=== PATIENT | male | born 1965 | race Hispanic/Latino ===

== ENCOUNTER 2017-06-02 17:14 | Emergency (ER) | payer OTHER ==
--- OUTSIDE RECORDS SUMMARY | 2017-06-02 17:16 | XMS REPORT ---
:1965 [facility] Address [address] [place] [address] Care Team Providers Name Role Phone ILIANA GOMEZ Unavailable Unavailable Problems This patient has no known problems. Allergies, Adverse Reactions, Alerts This patient has no known allergies or adverse reactions. Medications This patient has no known medications. Results Test Description Test Time Test Comments Text Results Atomic Results Result Comments BLOOD CULTURE 2016-07-07 14:28:00 Test Item Value Reference Range Comments CULTURE (BEAKER) (test moeo=7187) No growth in 5 days POCT-GLUCOSE [id number] 12:04:00 Test Item Value Reference Range Comments POC-GLUCOSE METER (BEAKER) 179 mg/dL 70-110 TESTED AT [facility] [address] [facility] (test tnil=9076) [facility] [address] BASIC METABOLIC [id number] 09:51:00 Test Item Value Reference Range Comments SODIUM (BEAKER) (test 137 meq/L 136-145 wyqf=763) POTASSIUM (BEAKER) (test 3.7 meq/L 3.5-5.1 cbek=999) CHLORIDE (BEAKER) (test 102 meq/L 98-107 dmbh=610) CO2 (BEAKER) (test 25 meq/L 22-29 uhxu=514) BLOOD UREA NITROGEN 17 mg/dL 7-21 (BEAKER) (test kseo=787) CREATININE (BEAKER) (test 1.04 mg/dL 0.57-1.25 ymvt=401) GLUCOSE RANDOM (BEAKER) 195 mg/dL 70-105 (test opyg=591) CALCIUM (BEAKER) (test 9.2 mg/dL 8.4-10.2 klpr=580) EGFR (BEAKER) (test 76 mL/min/1.73 sq m ESTIMATED GFR IS NOT brfm=8466) ACCURATE CREATININE CLEARANCE IN PREDICTING GLOMERULAR FILTRATION RATE. ESTIMATED GFR IS NOT APPLICABLE FOR DIALYSIS PATIENTS. CBC W/PLT COUNT & AUTO [id number] 09:20:00 Test Item Value Reference Range Comments WHITE BLOOD CELL COUNT (BEAKER) (test qlov=821) 6.1 K/ L 4.0-10.0 RED BLOOD CELL COUNT (BEAKER) (test gzcz=693) 4.63 M/ L 4.20-5.80 HEMOGLOBIN (BEAKER) (test ktrs=486) 13.7 GM/DL 13.0-16.8 HEMATOCRIT (BEAKER) (test cggn=468) 39.8 % 40.0-50.0 MEAN CORPUSCULAR VOLUME (BEAKER) (test udbu=098) 85.9 fL 82.0-98.0 MEAN CORPUSCULAR HEMOGLOBIN (BEAKER) (test 29.6 pg 27.0-33.0 ncbr=316) MEAN CORPUSCULAR HEMOGLOBIN CONC (BEAKER) (test 34.5 GM/DL 32.0-36.0 wtjr=057) RED CELL DISTRIBUTION WIDTH (BEAKER) (test 14.8 % 10.3-14.2 jaiq=327) PLATELET COUNT (BEAKER) (test qgwf=503) 143 K/CU MM 150-430 MEAN PLATELET VOLUME (BEAKER) (test tamm=887) 8.6 fL 6.5-10.5 NUCLEATED RED BLOOD CELLS (BEAKER) (test 0 /100 WBC 0-0 sliu=008) NEUTROPHILS RELATIVE PERCENT (BEAKER) (test 71 % vzeh=176) LYMPHOCYTES RELATIVE PERCENT (BEAKER) (test 20 % mjqu=940) MONOCYTES RELATIVE PERCENT (BEAKER) (test 5 % fjxv=792) EOSINOPHILS RELATIVE PERCENT (BEAKER) (test 3 % iisg=557) BASOPHILS RELATIVE PERCENT (BEAKER) (test 1 % berx=775) NEUTROPHILS ABSOLUTE COUNT (BEAKER) (test 4.31 K/ L 1.80-8.00 iacy=471) LYMPHOCYTES ABSOLUTE COUNT (BEAKER) (test 1.23 K/ L 1.48-4.50 mnsp=896) MONOCYTES ABSOLUTE COUNT (BEAKER) (test 0.28 K/ L 0.00-1.30 mddc=863) EOSINOPHILS ABSOLUTE COUNT (BEAKER) (test 0.21 K/ L 0.00-0.50 jplh=896) BASOPHILS ABSOLUTE COUNT (BEAKER) (test 0.03 K/ L 0.00-0.20 qubv=183) 0.00POCT-GLUCOSE [id number] 07:15:00 Test Item Value Reference Range Comments POC-GLUCOSE METER (BEAKER) 246 mg/dL 70-110 TESTED AT [address] (test bmcw=4353) [place] [address] POCT-GLUCOSE [id number] 21:12:00 Test Item Value Reference Range Comments POC-GLUCOSE METER (BEAKER) 89 mg/dL 70-110 TESTED AT [address] (test goxr=3863) [place] [address] POCT-GLUCOSE [id number] 17:12:00 Test Item Value Reference Range Comments POC-GLUCOSE METER (BEAKER) 217 mg/dL 70-110 TESTED AT [address] (test rveb=0025) [place] [address] URINE [id number] 12:07:00 Test Item Value Reference Range Comments CULTURE (AKER) (test <10,000 col/mL skin candi zwus=3361) POCT-GLUCOSE [id number] 11:30:00 Test Item Value Reference Range Comments POC-GLUCOSE METER (BEAKER) 205 mg/dL 70-110 TESTED AT [address] (test fvwb=9834) [place] [id number] POCT-GLUCOSE [id number] 07:36:00 Test Item Value Reference Range Comments POC-GLUCOSE METER (BEAKER) 195 mg/dL 70-110 TESTED AT [address] (test knpv=7502) [place] [address] CBC W/PLT COUNT & AUTO [id number] 05:14:00 Test Item Value Reference Range Comments WHITE BLOOD CELL COUNT (BEAKER) (test gdeg=822) 6.7 K/ L 4.0-10.0 RED BLOOD CELL COUNT (BEAKER) (test bbou=989) 4.40 M/ L 4.20-5.80 HEMOGLOBIN (BEAKER) (test zcft=850) 13.3 GM/DL 13.0-16.8 HEMATOCRIT (BEAKER) (test mqke=417) 38.2 % 40.0-50.0 MEAN CORPUSCULAR VOLUME (BEAKER) (test tgao=503) 86.8 fL 82.0-98.0 MEAN CORPUSCULAR HEMOGLOBIN (BEAKER) (test 30.1 pg 27.0-33.0 nykh=000) MEAN CORPUSCULAR HEMOGLOBIN CONC (BEAKER) (test 34.7 GM/DL 32.0-36.0 llht=342) RED CELL DISTRIBUTION WIDTH (BEAKER) (test 14.7 % 10.3-14.2 xgth=160) PLATELET COUNT (BEAKER) (test mqoh=188) 144 K/CU MM 150-430 MEAN PLATELET VOLUME (BEAKER) (test uboj=030) 9.0 fL 6.5-10.5 NUCLEATED RED BLOOD CELLS (BEAKER) (test 0 /100 WBC 0-0 gddq=244) NEUTROPHILS RELATIVE PERCENT (BEAKER) (test 67 % atbc=515) LYMPHOCYTES RELATIVE PERCENT (BEAKER) (test 25 % jijg=790) MONOCYTES RELATIVE PERCENT (BEAKER) (test 5 % fdma=710) EOSINOPHILS RELATIVE PERCENT (BEAKER) (test 2 % fwno=284) BASOPHILS RELATIVE PERCENT (BEAKER) (test 0 % rmfz=896) NEUTROPHILS ABSOLUTE COUNT (BEAKER) (test 4.52 K/ L 1.80-8.00 nkup=104) LYMPHOCYTES ABSOLUTE COUNT (BEAKER) (test 1.70 K/ L 1.48-4.50 neop=617) MONOCYTES ABSOLUTE COUNT (BEAKER) (test 0.32 K/ L 0.00-1.30 lsbn=546) EOSINOPHILS ABSOLUTE COUNT (BEAKER) (test 0.16 K/ L 0.00-0.50 pfvv=578) BASOPHILS ABSOLUTE COUNT (BEAKER) (test 0.03 K/ L 0.00-0.20 zjwb=942) [facility]00[facility] [id number] 05:14:00 Test Item Value Reference Range Comments SODIUM (BEAKER) (test 134 meq/L 136-145 anod=491) POTASSIUM (BEAKER) (test 4.2 meq/L 3.5-5.1 qqax=888) CHLORIDE (BEAKER) (test 101 meq/L 98-107 sdmr=895) CO2 (BEAKER) (test 24 meq/L 22-29 ueuo=441) BLOOD UREA NITROGEN 20 mg/dL 7-21 (BEAKER) (test ouif=694) CREATININE (BEAKER) (test 1.16 mg/dL 0.57-1.25 bfjm=134) GLUCOSE RANDOM (BEAKER) 216 mg/dL 70-105 (test tifo=904) CALCIUM (BEAKER) (test 8.8 mg/dL 8.4-10.2 wecs=871) EGFR (BEAKER) (test 67 mL/min/1.73 sq m ESTIMATED GFR IS NOT jgwn=7231) ACCURATE CREATININE CLEARANCE IN PREDICTING GLOMERULAR FILTRATION RATE. ESTIMATED GFR IS NOT APPLICABLE FOR DIALYSIS PATIENTS. POCT-GLUCOSE [id number] 21:04:00 Test Item Value Reference Range Comments POC-GLUCOSE METER (BEAKER) 178 mg/dL 70-110 TESTED AT [address] (test dtpm=2158) [place] [id number] POCT-GLUCOSE [id number] 17:07:00 Test Item Value Reference Range Comments POC-GLUCOSE METER (BEAKER) 88 mg/dL 70-110 TESTED AT [address] (test sjzz=8268) [place] [id number] POCT-GLUCOSE [id number] 12:30:00 Test Item Value Reference Range Comments POC-GLUCOSE METER (BEAKER) 107 mg/dL 70-110 TESTED AT [address] (test kzij=5268) [facility] [address] POCT-GLUCOSE [id number] 07:46:00 Test Item Value Reference Range Comments POC-GLUCOSE METER (BEAKER) 169 mg/dL 70-110 TESTED AT [address] (test bbap=3519) [facility] [address] CBC W/PLT COUNT & AUTO [id number] 07:42:00 Test Item Value Reference Range Comments WHITE BLOOD CELL COUNT (BEAKER) (test hxlh=570) 6.5 K/ L 4.0-10.0 RED BLOOD CELL COUNT (BEAKER) (test nict=012) 4.57 M/ L 4.20-5.80 HEMOGLOBIN (BEAKER) (test osli=193) 13.4 GM/DL 13.0-16.8 HEMATOCRIT (BEAKER) (test vxkh=363) 40.4 % 40.0-50.0 MEAN CORPUSCULAR VOLUME (BEAKER) (test qihc=411) 88.3 fL 82.0-98.0 MEAN CORPUSCULAR HEMOGLOBIN (BEAKER) (test 29.3 pg 27.0-33.0 kerd=855) MEAN CORPUSCULAR HEMOGLOBIN CONC (BEAKER) (test 33.2 GM/DL 32.0-36.0 liqx=517) RED CELL DISTRIBUTION WIDTH (BEAKER) (test 13.8 % 10.3-14.2 huqt=611) PLATELET COUNT (BEAKER) (test jsuj=706) 150 K/CU MM 150-430 MEAN PLATELET VOLUME (BEAKER) (test whmk=390) 9.0 fL 6.5-10.5 NUCLEATED RED BLOOD CELLS (BEAKER) (test 0 /100 WBC 0-0 kflu=995) NEUTROPHILS RELATIVE PERCENT (BEAKER) (test 64 % gori=886) LYMPHOCYTES RELATIVE PERCENT (BEAKER) (test 26 % sqml=005) MONOCYTES RELATIVE PERCENT (BEAKER) (test 7 % casf=769) EOSINOPHILS RELATIVE PERCENT (BEAKER) (test 3 % kjdy=164) BASOPHILS RELATIVE PERCENT (BEAKER) (test 0 % bztc=860) NEUTROPHILS ABSOLUTE COUNT (BEAKER) (test 4.13 K/ L 1.80-8.00 eutn=782) LYMPHOCYTES ABSOLUTE COUNT (BEAKER) (test 1.66 K/ L 1.48-4.50 qcix=480) MONOCYTES ABSOLUTE COUNT (BEAKER) (test 0.44 K/ L 0.00-1.30 gbih=183) EOSINOPHILS ABSOLUTE COUNT (BEAKER) (test 0.21 K/ L 0.00-0.50 mtvl=061) BASOPHILS ABSOLUTE COUNT (BEAKER) (test 0.03 K/ L 0.00-0.20 remr=728) 0.00[facility]I METABOLIC [id number] 06:13:00 Test Item Value Reference Range Comments SODIUM (BEAKER) (test 136 meq/L 136-145 xtxf=479) POTASSIUM (BEAKER) (test 3.6 meq/L 3.5-5.1 jxgp=257) CHLORIDE (BEAKER) (test 101 meq/L 98-107 ptea=809) CO2 (BEAKER) (test 25 meq/L 22-29 utat=837) BLOOD UREA NITROGEN 18 mg/dL 7-21 (BEAKER) (test towo=988) CREATININE (BEAKER) (test 1.07 mg/dL 0.57-1.25 lgzv=340) GLUCOSE RANDOM (BEAKER) 188 mg/dL 70-105 (test oisn=641) CALCIUM (BEAKER) (test 8.8 mg/dL 8.4-10.2 pjqe=180) EGFR (BEAKER) (test 73 mL/min/1.73 sq m ESTIMATED GFR IS NOT ugog=8168) ACCURATE CREATININE CLEARANCE IN PREDICTING GLOMERULAR FILTRATION RATE. ESTIMATED GFR IS NOT APPLICABLE FOR DIALYSIS PATIENTS. POCT-GLUCOSE [id number] 22:12:00 Test Item Value Reference Range Comments POC-GLUCOSE METER (BEAKER) 238 mg/dL 70-110 TESTED AT [address] (test yflv=3254) [facility] [address] POCT-GLUCOSE [id number] 17:25:00 Test Item Value Reference Range Comments POC-GLUCOSE METER (BEAKER) 102 mg/dL 70-110 TESTED AT [address] (test llvy=6182) [place] [id number] URINALYSIS W/ [id number] 12:50:00 Test Item Value Reference Range Comments COLOR (BEAKER) (test annj=061) Colorless CLARITY (BEAKER) (test zihw=168) Clear SPECIFIC GRAVITY UA (BEAKER) (test fjbs=848) 1.002 1.001-1.035 PH UA (BEAKER) (test sedk=095) 6.5 5.0-8.0 PROTEIN UA (BEAKER) (test egow=630) Negative Negative GLUCOSE UA (BEAKER) (test rcdf=440) Negative Negative KETONES UA (BEAKER) (test vvsm=172) Negative Negative BILIRUBIN UA (BEAKER) (test emua=056) Negative Negative BLOOD UA (BEAKER) (test xzid=267) Negative Negative NITRITE UA (BEAKER) (test xngv=678) Negative Negative LEUKOCYTE ESTERASE UA (BEAKER) (test irbq=966) Negative Negative UROBILINOGEN UA (BEAKER) (test mxia=473) 0.2 mg/dL 0.2-1.0 RBC UA (BEAKER) (test kxym=178) 0 /HPF WBC UA (BEAKER) (test xbua=049) < /HPF SOURCE(BEAKER) (test txgo=2878) POCT-GLUCOSE [id number] 12:04:00 Test Item Value Reference Range Comments POC-GLUCOSE METER (BEAKER) 226 mg/dL 70-110 TESTED AT [facility] [address] [facility] (test uiyw=8459) [facility] [address] POCT-GLUCOSE [id number] 08:00:00 Test Item Value Reference Range Comments POC-GLUCOSE METER (BEAKER) 300 mg/dL 70-110 TESTED AT [facility] [address] [facility] (test meop=4312) [facility] [address] BASIC METABOLIC [id number] 06:50:00 Test Item Value Reference Range Comments SODIUM (BEAKER) (test 134 meq/L 136-145 xszs=051) POTASSIUM (BEAKER) (test 4.0 meq/L 3.5-5.1 mqup=694) CHLORIDE (BEAKER) (test 98 meq/L 98-107 aujq=418) CO2 (BEAKER) (test 26 meq/L 22-29 aodm=809) BLOOD UREA NITROGEN 18 mg/dL 7-21 (BEAKER) (test uyts=788) CREATININE (BEAKER) (test 1.25 mg/dL 0.57-1.25 sban=707) GLUCOSE RANDOM (BEAKER) 349 mg/dL 70-105 (test eanw=616) CALCIUM (BEAKER) (test 8.9 mg/dL 8.4-10.2 dpeb=818) EGFR (BEAKER) (test 61 mL/min/1.73 sq m ESTIMATED GFR IS NOT zbjz=8343) ACCURATE CREATININE CLEARANCE IN PREDICTING GLOMERULAR FILTRATION RATE. ESTIMATED GFR IS NOT APPLICABLE FOR DIALYSIS PATIENTS. CBC W/PLT COUNT & AUTO [id number] 06:01:00 Test Item Value Reference Range Comments WHITE BLOOD CELL COUNT (BEAKER) (test ntyc=776) 6.6 K/ L 4.0-10.0 RED BLOOD CELL COUNT (BEAKER) (test wtyv=228) 4.79 M/ L 4.20-5.80 HEMOGLOBIN (BEAKER) (test twcm=381) 14.1 GM/DL 13.0-16.8 HEMATOCRIT (BEAKER) (test rwut=291) 42.0 % 40.0-50.0 MEAN CORPUSCULAR VOLUME (BEAKER) (test orjd=444) 87.7 fL 82.0-98.0 MEAN CORPUSCULAR HEMOGLOBIN (BEAKER) (test 29.5 pg 27.0-33.0 bwwq=369) MEAN CORPUSCULAR HEMOGLOBIN CONC (BEAKER) (test 33.6 GM/DL 32.0-36.0 npyi=067) RED CELL DISTRIBUTION WIDTH (BEAKER) (test 14.9 % 10.3-14.2 jheg=111) PLATELET COUNT (BEAKER) (test coco=125) 157 K/CU MM 150-430 MEAN PLATELET VOLUME (BEAKER) (test mbow=590) 9.0 fL 6.5-10.5 NUCLEATED RED BLOOD CELLS (BEAKER) (test 0 /100 WBC 0-0 tvht=308) NEUTROPHILS RELATIVE PERCENT (BEAKER) (test 67 % yqim=303) LYMPHOCYTES RELATIVE PERCENT (BEAKER) (test 23 % ssaj=406) MONOCYTES RELATIVE PERCENT (BEAKER) (test 7 % vcqj=695) EOSINOPHILS RELATIVE PERCENT (BEAKER) (test 3 % truc=390) BASOPHILS RELATIVE PERCENT (BEAKER) (test 0 % igkt=857) NEUTROPHILS ABSOLUTE COUNT (BEAKER) (test 4.44 K/ L 1.80-8.00 izwp=522) LYMPHOCYTES ABSOLUTE COUNT (BEAKER) (test 1.51 K/ L 1.48-4.50 pdyb=884) MONOCYTES ABSOLUTE COUNT (BEAKER) (test 0.43 K/ L 0.00-1.30 uydz=034) EOSINOPHILS ABSOLUTE COUNT (BEAKER) (test 0.21 K/ L 0.00-0.50 jwre=980) BASOPHILS ABSOLUTE COUNT (BEAKER) (test 0.03 K/ L 0.00-0.20 agio=250) 0.00POCT-GLUCOSE [id number] 21:25:00 Test Item Value Reference Range Comments POC-GLUCOSE METER (BEAKER) 279 mg/dL 70-110 TESTED AT [facility] [address] [facility] (test deqk=8643) [facility] [address] HEMOGLOBIN [id number] 21:13:00 Test Item Value Reference Range Comments HEMOGLOBIN A1C (BEAKER) (test nxcn=382) 10.7 % 4.3-6.1 CBC W/PLT COUNT & AUTO [id number] 20:47:00 Test Item Value Reference Range Comments WHITE BLOOD CELL COUNT (BEAKER) (test mtgl=957) 7.3 K/ L 4.0-10.0 RED BLOOD CELL COUNT (BEAKER) (test nkez=223) 5.25 M/ L 4.20-5.80 HEMOGLOBIN (BEAKER) (test vuuw=283) 15.7 GM/DL 13.0-16.8 HEMATOCRIT (BEAKER) (test racr=200) 46.0 % 40.0-50.0 MEAN CORPUSCULAR VOLUME (BEAKER) (test pljh=629) 87.7 fL 82.0-98.0 MEAN CORPUSCULAR HEMOGLOBIN (BEAKER) (test 30.0 pg 27.0-33.0 kcjv=630) MEAN CORPUSCULAR HEMOGLOBIN CONC (BEAKER) (test 34.2 GM/DL 32.0-36.0 xkfq=437) RED CELL DISTRIBUTION WIDTH (BEAKER) (test 13.8 % 10.3-14.2 mjir=376) PLATELET COUNT (BEAKER) (test nqfv=660) 166 K/CU MM 150-430 MEAN PLATELET VOLUME (BEAKER) (test cmdm=918) 8.3 fL 6.5-10.5 NUCLEATED RED BLOOD CELLS (BEAKER) (test 0 /100 WBC 0-0 gwlf=977) NEUTROPHILS RELATIVE PERCENT (BEAKER) (test 69 % inwd=798) LYMPHOCYTES RELATIVE PERCENT (BEAKER) (test 22 % rjtk=992) MONOCYTES RELATIVE PERCENT (BEAKER) (test 5 % frli=489) EOSINOPHILS RELATIVE PERCENT (BEAKER) (test 3 % dpxj=683) BASOPHILS RELATIVE PERCENT (BEAKER) (test 0 % itte=425) NEUTROPHILS ABSOLUTE COUNT (BEAKER) (test 5.04 K/ L 1.80-8.00 xmpk=200) LYMPHOCYTES ABSOLUTE COUNT (BEAKER) (test 1.63 K/ L 1.48-4.50 zfly=525) MONOCYTES ABSOLUTE COUNT (BEAKER) (test 0.40 K/ L 0.00-1.30 ixvg=043) EOSINOPHILS ABSOLUTE COUNT (BEAKER) (test 0.22 K/ L 0.00-0.50 spol=564) BASOPHILS ABSOLUTE COUNT (BEAKER) (test 0.01 K/ L 0.00-0.20 znlj=829) 0.00POCT-GLUCOSE [id number] 18:31:00 Test Item Value Reference Range Comments POC-GLUCOSE METER (BEAKER) 205 mg/dL 70-110 TESTED AT [facility] [address] [facility] (test ltoj=2604) [facility] [address]
[2017-06-02] MEDS ORDERED: MORPHINE 4 MG/ML SYR ONE (18:15)
[2017-06-02] MEDS ORDERED: ONDANSETRON 4 MG (ODT) TAB ONE (18:15)
--- NOTE | 2017-06-02 18:55 | RAD REPORT ---
EXAM DESCRIPTION: RAD - Shoulder Left 2 View - 06/02/2017 6:21 pm CLINICAL HISTORY: Left clavicle and shoulder pain COMPARISON: Left shoulder December 2015, CT chest November 2016. TECHNIQUE: Internal and external rotation views of the left shoulder were obtained. FINDINGS: There is no fracture or dislocation. AC joint is normal in appearance. No bone spurring se en at the AC joint. Acromial humeral joint space is normal with no abnormal soft tissue calcification . Calcifications of an old axillary lymph node noted similar to prior imaging. IMPRESSION: Negative two-view left shoulder examination for acute or suspicious finding.
--- NOTE | 2017-06-02 20:04 | ER ---
Nurse's Notes [facility] Name: Ramirez Chaudhari Age: 52 yrs Sex: Male : 1965 Arrival Date: 06/02/2017 Time: 17:17 Bed 6 Private MD: Diagnosis: Edema, unspecified;Pain in left shoulder-possible left shoulder bursitis Presentation: 06/02 17:19 Presenting complaint: Patient states: My left collar bone hurts really bad. My left leg lk1 feels big and swollen. I haven't been making much urine. I just want to make sure my heart is ok. Transition of care: patient was not received from another setting of care. Onset of symptoms was June 01, 2017 at 21:00. Care prior to arrival: None. 17:19 Method Of Arrival: Wheelchair lk1 17:19 Acuity: NOHEMI 3 lk1 Triage Assessment: 17:22 General: Appears in no apparent distress. Behavior is calm, cooperative, appropriate lk1 for age. Pain: Complains of pain in anterior aspect of left shoulder Pain currently is 10 out of 10 on a pain scale. Historical: - Allergies: 17:22 Ibuprofen; lk1 17:22 metformin; lk1 - PMHx: 17:22 ADD/ADHD; Diabetes - IDDM; GERD; Gout; High Cholesterol; Hypertension; Migraines; Renal lk1 Disease; Spinal Stroke; Hypothyroidism; Paraplegia; Hydrocele Left Testicle; - PSHx: 17:22 spinal surgery; hydrocele; lk1 - Immunization history:: Adult Immunizations up to date. - Social history:: Smoking status: Patient/guardian denies using tobacco. Screenin:14 Abuse screen: Denies threats or abuse. Denies injuries from another. Nutritional jl7 screening: No deficits noted. Tuberculosis screening: No symptoms or risk factors identified. Fall Risk Secondary diagnosis (15 points) impaired mobility, Total Valera Fall Scale indicates No Risk (0-24 pts). Assessment: 18:06 General: Appears in no apparent distress. uncomfortable, Behavior is calm, cooperative, jl7 appropriate for age. Pain: Complains of pain in anterior aspect of left shoulder Pain does not radiate. Pain currently is 10 out of 10 on a pain scale. Quality of pain is described as aching, Is continuous. Neuro: Level of Consciousness is awake, alert, obeys commands, Oriented to person, place, time, situation, Speech is normal. Cardiovascular: Heart tones S1 S2 present Patient's skin is warm and dry. Respiratory: Airway is patent Respiratory effort is even, unlabored, Respiratory pattern is regular, symmetrical. GI: Abdomen is round non-distended. : No signs and/or symptoms were reported regarding the genitourinary system. EENT: No signs and/or symptoms were reported regarding the EENT system. Derm: No signs and/or symptoms reported regarding the dermatologic system. Musculoskeletal: Range of motion: limited in left shoulder. 20:26 Reassessment: Patient and/or family updated on plan of care and expected duration. Pain tl1 level reassessed. Patient is alert, oriented x 3, equal unlabored respirations, skin warm/dry/pink. Patient states feeling better. Patient states symptoms have improved. Musculoskeletal: Reports pain in left shoulder and left arm and anterior aspect of left shoulder. Vital Signs: 17:22 BP 159 / 100; Pulse 72; Resp 15; Temp 98.2(TE); Pulse Ox 97% on R/A; Weight 104.33 kg lk1 (R); Height 5 ft. 8 in. (172.72 cm) (R); Pain 10/10; 18:06 BP 158 / 92; Pulse 66; Resp 16; Pulse Ox 99% ; Pain 10/10; jl7 18:50 BP 167 / 107; Pulse 79; Resp 16 S; Pulse Ox 100% on R/A; jl7 19:52 BP 159 / 92; Pulse 72; Resp 17; Pulse Ox 100% ; Pain 8/10; tl1 20:24 BP 151 / 98; Pulse 74; Resp 16; Temp 98.4; Pulse Ox 99% ; Pain 6/10; tl1 17:22 Body Mass Index 34.97 (104.33 kg, 172.72 cm) lk1 ED Course: 17:17 Patient arrived in ED. as 17:20 Triage completed. lk1 17:24 Arm band placed on right wrist. lk1 17:34 Emelia Nolan, NORBERTO is Primary Nurse. jl7 17:38 Herbert Murry NP is PHCP. pm1 17:39 Ford Bass MD is Attending Physician. pm1 18:14 Patient has correct armband on for positive identification. Bed in low position. Call jl7 light in reach. Side rails up X2. Pulse ox on. NIBP on. 18:17 X-ray completed. Portable x-ray completed in exam room. Patient tolerated procedure kc2 well. 18:18 Shoulder Left (2 View) XRAY In Process Unspecified. EDMS 19:02 Report given to NORBERTO Singh. jl7 19:32 Ultrasound completed. Patient tolerated well. lc3 19:36 US Extrem Venous W Compression Jeff In Process Unspecified. EDMS 19:48 Primary Nurse role handed off by Emelia Nolan RN rg2 20:01 Haider Ellsworth MD is Referral Physician. pm1 20:25 No provider procedures requiring assistance completed. Patient did not have IV access tl1 during this emergency room visit. Sling applied to left arm. Administered Medications: 18:00 Drug: morphine 4 mg Route: IM; Site: right deltoid; sg 19:02 Follow up: Response: No adverse reaction jl7 18:00 Drug: Zofran 4 mg Route: PO; sg 19:02 Follow up: Response: No adverse reaction jl7 Outcome: 20:03 Discharge ordered by MD. pm1 20:26 Discharged to home via wheelchair, with family. tl1 20:26 Condition: stable 20:26 Discharge instructions given to patient, family, Instructed on discharge instructions, follow up and referral plans. Demonstrated understanding of instructions, follow-up care. 20:29 Patient left the ED. tl1 Signatures: Dispatcher [employer] EDAdriel Donahue rg2 Uche Pate RN RN sg Martinez, Amelia as Lasagna, Tonya, RN RN tl1 Ana Maria Lynch Leah, RN RN lk1 Herbert Murry, JEFF CAB DRIVER pm1 Pretty Huang kc2 Emelia Nolan RN RN jl7
--- NOTE | 2017-06-02 20:04 | EDPHYS ---
Physician Documentation [facility] Name: Ramirez Chaudhari Age: 52 yrs Sex: Male : 1965 Arrival Date: 06/02/2017 Time: 17:17 Bed 6 Private MD: ED Physician Ford Bass HPI: 06/02 19:33 This 52 yrs old Male presents to ER via Wheelchair with complaints of Shoulder pm1 Pain, Left Leg Pain. 19:33 The patient or guardian complains of decreased range of motion, pain. left shoulder. pm1 Context: The problem was sustained at home, resulted from an unknown reason, The patient experiences decreased range of motion, The patient reports no obvious deformity. Onset: The symptoms/episode began/occurred yesterday. Modifying factors: the symptoms are alleviated by nothing. The symptoms are aggravated by rotation of arm. Associated signs and symptoms: Pertinent negatives: abdominal pain, chest pain, diaphoresis, dyspnea, neck pain, shortness of breath. Severity of symptoms: in the emergency department the symptoms are actually worse. Patient's main complaint is left shoulder pain since yesterday. Patient unable to lift left arm above shoulder level due to pain. Pain present with moving left arm anteriorly and posteriorly. Patient does rehabilitation with PT for his arms 2-3 times per week. No chest pain or shortness of breath. Patient with complaints of swelling to lower extremities bilaterally for the past 2-3 days. Patient reports that left leg feels larger and more painful than the right. Patient reports that he has been keeping legs more dependent recently than his normal. reports that he is having urinary retention but the patient denies it. Patient is a paraplegic and his self catheterizing without any difficulty. Historical: - Allergies: 17:22 Ibuprofen; lk1 17:22 metformin; lk1 - PMHx: 17:22 ADD/ADHD; Diabetes - IDDM; GERD; Gout; High Cholesterol; Hypertension; Migraines; Renal lk1 Disease; Spinal Stroke; Hypothyroidism; Paraplegia; Hydrocele Left Testicle; - PSHx: 17:22 spinal surgery; hydrocele; lk1 - Immunization history:: Adult Immunizations up to date. - Social history:: Smoking status: Patient/guardian denies using tobacco. ROS: 19:41 Constitutional: Negative for fever, chills, and weight loss, Eyes: Negative for injury, pm1 pain, redness, and discharge, ENT: Negative for injury, pain, and discharge, Neck: Negative for injury, pain, and swelling, Respiratory: Negative for shortness of breath, cough, wheezing, and pleuritic chest pain, Abdomen/GI: Negative for abdominal pain, nausea, vomiting, diarrhea, and constipation, Back: Negative for injury and pain. 19:41 : Negative for injury, bleeding, discharge, and swelling. 19:41 Skin: Negative for injury, rash, and discoloration, Neuro: Negative for headache, weakness, numbness, tingling, and seizure. 19:41 Cardiovascular: Positive for edema, Negative for chest pain, palpitations. 19:41 MS/extremity: Positive for pain, of the left shoulder. Exam: 19:41 Constitutional: This is a well developed, well nourished patient who is awake, alert, pm1 and in no acute distress. Head/Face: Normocephalic, atraumatic. Eyes: Pupils equal round and reactive to light, extra-ocular motions intact. Lids and lashes normal. Conjunctiva and sclera are non-icteric and not injected. Cornea within normal limits. Periorbital areas with no swelling, redness, or edema. ENT: Nares patent. No nasal discharge, no septal abnormalities noted. Tympanic membranes are normal and external auditory canals are clear. Oropharynx with no redness, swelling, or masses, exudates, or evidence of obstruction, uvula midline. Mucous membranes moist. Neck: Trachea midline, no thyromegaly or masses palpated, and no cervical lymphadenopathy. Supple, full range of motion without nuchal rigidity, or vertebral point tenderness. No Meningismus. Chest/axilla: Normal chest wall appearance and motion. Nontender with no deformity. No lesions are appreciated. Respiratory: Lungs have equal breath sounds bilaterally, clear to auscultation and percussion. No rales, rhonchi or wheezes noted. No increased work of breathing, no retractions or nasal flaring. Abdomen/GI: Soft, non-tender, with normal bowel sounds. No distension or tympany. No guarding or rebound. No evidence of tenderness throughout. Back: No spinal tenderness. No costovertebral tenderness. Full range of motion. Skin: Warm, dry with normal turgor. Normal color with no rashes, no lesions, and no evidence of cellulitis. 19:41 Cardiovascular: Rate: normal, Rhythm: regular, Pulses: no pulse deficits are appreciated, Heart sounds: normal, Edema: pedal edema, that is mild, JVD: is not appreciated. 19:41 Musculoskeletal/extremity: Extremities: grossly normal except: noted in the left arm: decreased ROM, Unable to raise left arm above shoulder level due to pain, paraplegic, unable to move lower extermities. Vital Signs: 17:22 BP 159 / 100; Pulse 72; Resp 15; Temp 98.2(TE); Pulse Ox 97% on R/A; Weight 104.33 kg lk1 (R); Height 5 ft. 8 in. (172.72 cm) (R); Pain 10/10; 18:06 BP 158 / 92; Pulse 66; Resp 16; Pulse Ox 99% ; Pain 10/10; jl7 18:50 BP 167 / 107; Pulse 79; Resp 16 S; Pulse Ox 100% on R/A; jl7 19:52 BP 159 / 92; Pulse 72; Resp 17; Pulse Ox 100% ; Pain 8/10; tl1 20:24 BP 151 / 98; Pulse 74; Resp 16; Temp 98.4; Pulse Ox 99% ; Pain 6/10; tl1 17:22 Body Mass Index 34.97 (104.33 kg, 172.72 cm) lk1 MDM: 17:40 Patient medically screened. pm1 19:41 Data reviewed: vital signs. Data interpreted: Pulse oximetry: on room air is 100 %. pm1 Interpretation: normal. 19:56 Counseling: I had a detailed discussion with the patient and/or guardian regarding: the pm1 historical points, exam findings, and any diagnostic results supporting the discharge/admit diagnosis, radiology results, the need for outpatient follow up, a orthopedic surgeon, to return to the emergency department if symptoms worsen or persist or if there are any questions or concerns that arise at home. 06/02 17:50 Order name: Shoulder Left (2 View) XRAY; Complete Time: 19:12 pm1 06/02 17:50 Order name: US Extrem Venous W Compression Jeff pm1 06/02 20:05 Order name: Sling; Complete Time: 20:27 pm1 Administered Medications: 18:00 Drug: morphine 4 mg Route: IM; Site: right deltoid; sg 19:02 Follow up: Response: No adverse reaction jl7 18:00 Drug: Zofran 4 mg Route: PO; 19:02 Follow up: Response: No adverse reaction jl7 Disposition: 06/03 16:42 Co-signature as Attending Physician, Ford Bass MD available for consultation at ps1 all times. . Disposition: 06/02/17 20:03 Discharged to Home. Impression: Pain in left shoulder - possible left shoulder bursitis, Edema, unspecified. - Condition is Stable. - Discharge Instructions: Bursitis, Edema, Shoulder Pain, Arm Sling Use, [id number]. - Medication Reconciliation Form, Thank You Letter, Prescription Opioid Use form. - Follow up: Haider Ellsworth MD; When: 2 - 3 days; Reason: Recheck today's complaints, Continuance of care, Re-evaluation by your physician. Follow up: Private Physician; When: 2 - 3 days; Reason: Recheck today's complaints, Continuance of care, Re-evaluation by your physician. Follow up: Emergency Department; When: As needed; Reason: Worsening of condition. - Problem is new. - Symptoms have improved. Signatures: Dispatcher [employer] EDMS Uche Pate RN RN sg Fe Mayes RN RN tl1 Kendy Campoverde RN RN lk1 Herbert Murry, CONSULTING SYSTEMS ENGINEER CONSULTING SYSTEMS ENGINEER pm1 Ford Bass MD MD ps1 Emelia Nolan RN jl7
[2017-06-02 20:38] VITALS: BP 151/98; TEMP 98.4; O2SAT 99
--- NOTE | 2017-06-02 20:38 | RAD REPORT ---
EXAM DESCRIPTION: VAS - Extrem Venous W Compress Jeff - 06/02/2017 7:36 pm CLINICAL HISTORY: Leg pain and swelling COMPARISON: None. TECHNIQUE: Real-time sonographic evaluation of the bilateral lower extremity deep venous systems was performed. FINDINGS: Normal compressibility, flow augmentation, phasic flow and spontaneous flow are identified in the left and right lower extremity deep venous systems. No intraluminal filling defects seen. IMPRESSION: No DVT in either lower extremity.
== END 2017-06-02 20:29 | disposition home or self-care (01) ==
LOC: ER 17:14
DX: G82.20 Paraplegia, unspecified; Z88.6 Allergy status to analgesic agent; Z88.8 Allergy status to other drugs, medicaments and biological substances; R60.9 Edema, unspecified; I10 Essential (primary) hypertension
CPT/HCPCS: 93970; 96372; 99284

== ENCOUNTER 2017-07-11 23:24 | Emergency (ER) | payer OTHER ==
--- OUTSIDE RECORDS SUMMARY | 2017-07-11 23:26 | XMS REPORT | Clinical Summary ---
:1965 Author Organization [facility] Address [address] [place] [address] Phone Care Team Providers Name Role Phone Unavailable Primary Care Provider Unavailable Allergies Active Allergy Reactions Severity Noted Date Comments Ibuprofen 06/30/2016 Kidney problems Metformin 06/30/2016 Kidney problems Current Medications Prescription Sig. Disp. Refills Start End Date Status Date atenolol (TENORMIN) 50 Take 50 mg by Active MG tablet mouth daily. oxybutynin (DITROPAN) 5 Take 5 mg by mouth Active MG tablet 3 (three) times daily. pantoprazole (PROTONIX) Take 40 mg by Active 40 MG tablet mouth daily Before breakfast . levothyroxine Take 75 mcg by Active (SYNTHROID, LEVOTHROID) mouth Every 75 MCG tablet morning on an empty stomach. insulin detemir Inject 36 Units Active (LEVEMIR) 100 unit/mL (3 subcutaneously 2 mL) InPn injection (two) times daily pen . insulin lispro (HUMALOG) Inject 20 Units Active 100 unit/mL injection subcutaneously 3 (three) times daily before meals Sliding scale starts at 20 units . colchicine (COLCRYS) 0.6 Take 0.6 mg by Active mg tablet mouth 2 (two) times daily as needed As needed for gout . traMADol (ULTRAM) 50 mg Take 1 tablet (50 30 tablet 0 07/14/19 tablet mg total) by mouth 7 17 every 6 (six) hours as needed for up to 10 days. Max Daily Amount: 200 mg insulin lispro (HUMALOG) Inject 0-12 Units 10 mL 0 08/03/19 100 unit/mL injection subcutaneously as 7 17 needed (High blood sugar) for up to 30 days. hydroCHLOROthiazide Take 0.5 tablets 15 tablet 11 07/04/19 (HYDRODIURIL) 25 MG (12.5 mg total) by 7 18 tablet mouth daily. sulfamethoxazole-trimeth Take 1 tablet (160 28 tablet 0 oprim (BACTRIM DS) mg of trimethoprim 7 800-160 mg per tablet total) by mouth 2 (two) times daily for 14 days. hydroCHLOROthiazide Take 2 tablets (25 60 tablet 0 07/05/19 (HYDRODIURIL) 12.5 MG mg total) by mouth 7 18 tablet daily. lisinopril Take 1 tablet (40 30 tablet 0 07/05/19 (PRINIVIL,ZESTRIL) 40 MG mg total) by mouth 7 18 tablet daily. amLODIPine (NORVASC) 10 Take 1 tablet (10 30 tablet 0 07/06/19 MG tablet mg total) by mouth 7 18 daily. Active Problems Problem Noted Date Epididymitis, left 06/30/2016 DM2 (diabetes mellitus, type 2) (HCC) 06/30/2016 HTN (hypertension) 06/30/2016 Hypothyroid 06/30/2016 Family History Medical History Relation Name Comments Kidney disease Brother Diabetes Mother Diabetes Sister Relation Name Status Comments Brother Mother Sister Social History Tobacco Use Types Packs/Day Years Used Date Former Smoker Smokeless Tobacco: Former User Quit: 06/30/1986 Alcohol Use Drinks/Week oz/Week Comments No Sex Assigned at Date Recorded Not on file Last Filed Vital Signs Not on file Plan of Treatment Not on file Results Not on fileafter 07/10/2016
--- OUTSIDE RECORDS SUMMARY | 2017-07-11 23:26 | XMS REPORT ---
:1965 Author Organization [facility] Address [address] [place] [address] Care Team Providers Name Role Phone FAITH GOMEZ Unavailable Unavailable Problems This patient has no known problems. Allergies, Adverse Reactions, Alerts This patient has no known allergies or adverse reactions. Medications This patient has no known medications. Results Test Description Test Time Test Comments Text Results Atomic Results Result Comments BLOOD CULTURE 2016-07-07 14:28:00 Test Item Value Reference Range Comments CULTURE (BEAKER) (test akrw=3636) No growth in 5 days POCT-GLUCOSE [id number] 12:04:00 Test Item Value Reference Range Comments POC-GLUCOSE METER (BEAKER) 179 mg/dL 70-110 TESTED AT [facility] [address] [facility] (test vklk=3940) [facility] [address] BASIC METABOLIC [id number] 09:51:00 Test Item Value Reference Range Comments SODIUM (BEAKER) (test 137 meq/L 136-145 amor=762) POTASSIUM (BEAKER) (test 3.7 meq/L 3.5-5.1 mlcp=923) CHLORIDE (BEAKER) (test 102 meq/L 98-107 mpax=069) CO2 (BEAKER) (test 25 meq/L 22-29 fuvf=315) BLOOD UREA NITROGEN 17 mg/dL 7-21 (BEAKER) (test dzvc=669) CREATININE (BEAKER) (test 1.04 mg/dL 0.57-1.25 xkyk=845) GLUCOSE RANDOM (BEAKER) 195 mg/dL 70-105 (test qpxt=966) CALCIUM (BEAKER) (test 9.2 mg/dL 8.4-10.2 jpif=702) EGFR (BEAKER) (test 76 mL/min/1.73 sq m ESTIMATED GFR IS NOT kmgd=5928) ACCURATE CREATININE CLEARANCE IN PREDICTING GLOMERULAR FILTRATION RATE. ESTIMATED GFR IS NOT APPLICABLE FOR DIALYSIS PATIENTS. CBC W/PLT COUNT & AUTO [id number] 09:20:00 Test Item Value Reference Range Comments WHITE BLOOD CELL COUNT (BEAKER) (test pzrs=809) 6.1 K/ L 4.0-10.0 RED BLOOD CELL COUNT (BEAKER) (test ixso=180) 4.63 M/ L 4.20-5.80 HEMOGLOBIN (BEAKER) (test naiy=714) 13.7 GM/DL 13.0-16.8 HEMATOCRIT (BEAKER) (test bjbs=385) 39.8 % 40.0-50.0 MEAN CORPUSCULAR VOLUME (BEAKER) (test pzzr=632) 85.9 fL 82.0-98.0 MEAN CORPUSCULAR HEMOGLOBIN (BEAKER) (test 29.6 pg 27.0-33.0 bjym=477) MEAN CORPUSCULAR HEMOGLOBIN CONC (BEAKER) (test 34.5 GM/DL 32.0-36.0 fbce=806) RED CELL DISTRIBUTION WIDTH (BEAKER) (test 14.8 % 10.3-14.2 ldek=459) PLATELET COUNT (BEAKER) (test pgkt=831) 143 K/CU MM 150-430 MEAN PLATELET VOLUME (BEAKER) (test gyhc=474) 8.6 fL 6.5-10.5 NUCLEATED RED BLOOD CELLS (BEAKER) (test 0 /100 WBC 0-0 ikbz=002) NEUTROPHILS RELATIVE PERCENT (BEAKER) (test 71 % gizw=717) LYMPHOCYTES RELATIVE PERCENT (BEAKER) (test 20 % mute=287) MONOCYTES RELATIVE PERCENT (BEAKER) (test 5 % hhel=286) EOSINOPHILS RELATIVE PERCENT (BEAKER) (test 3 % pdkw=861) BASOPHILS RELATIVE PERCENT (BEAKER) (test 1 % cpte=863) NEUTROPHILS ABSOLUTE COUNT (BEAKER) (test 4.31 K/ L 1.80-8.00 esii=835) LYMPHOCYTES ABSOLUTE COUNT (BEAKER) (test 1.23 K/ L 1.48-4.50 owqd=521) MONOCYTES ABSOLUTE COUNT (BEAKER) (test 0.28 K/ L 0.00-1.30 mhnb=822) EOSINOPHILS ABSOLUTE COUNT (BEAKER) (test 0.21 K/ L 0.00-0.50 yhkd=689) BASOPHILS ABSOLUTE COUNT (BEAKER) (test 0.03 K/ L 0.00-0.20 ojdt=014) 0.00POCT-GLUCOSE [id number] 07:15:00 Test Item Value Reference Range Comments POC-GLUCOSE METER (BEAKER) 246 mg/dL 70-110 TESTED AT [address] (test nmgt=3131) [place] [address] POCT-GLUCOSE [id number] 21:12:00 Test Item Value Reference Range Comments POC-GLUCOSE METER (BEAKER) 89 mg/dL 70-110 TESTED AT [address] (test rvay=2346) [place] [address] POCT-GLUCOSE [id number] 17:12:00 Test Item Value Reference Range Comments POC-GLUCOSE METER (BEAKER) 217 mg/dL 70-110 TESTED AT [address] (test paux=2622) [place] [address] URINE [id number] 12:07:00 Test Item Value Reference Range Comments CULTURE (BEAKER) (test dlrj=5140) <10,000 col/mL skin candi POCT-GLUCOSE [id number] 11:30:00 Test Item Value Reference Range Comments POC-GLUCOSE METER (BEAKER) 205 mg/dL 70-110 TESTED AT [address] (test qjxa=3913) [place] [address] POCT-GLUCOSE [id number] 07:36:00 Test Item Value Reference Range Comments POC-GLUCOSE METER (BEAKER) 195 mg/dL 70-110 TESTED AT [address] (test nybx=8988) [place] [address] CBC W/PLT COUNT & AUTO [id number] 05:14:00 Test Item Value Reference Range Comments WHITE BLOOD CELL COUNT (BEAKER) (test hswo=895) 6.7 K/ L 4.0-10.0 RED BLOOD CELL COUNT (BEAKER) (test ynbs=476) 4.40 M/ L 4.20-5.80 HEMOGLOBIN (BEAKER) (test wnlq=304) 13.3 GM/DL 13.0-16.8 HEMATOCRIT (BEAKER) (test pemx=808) 38.2 % 40.0-50.0 MEAN CORPUSCULAR VOLUME (BEAKER) (test hwlm=375) 86.8 fL 82.0-98.0 MEAN CORPUSCULAR HEMOGLOBIN (BEAKER) (test 30.1 pg 27.0-33.0 dxhq=859) MEAN CORPUSCULAR HEMOGLOBIN CONC (BEAKER) (test 34.7 GM/DL 32.0-36.0 rxxg=245) RED CELL DISTRIBUTION WIDTH (BEAKER) (test 14.7 % 10.3-14.2 rzth=095) PLATELET COUNT (BEAKER) (test lhyi=024) 144 K/CU MM 150-430 MEAN PLATELET VOLUME (BEAKER) (test tkbt=894) 9.0 fL 6.5-10.5 NUCLEATED RED BLOOD CELLS (BEAKER) (test 0 /100 WBC 0-0 fbph=007) NEUTROPHILS RELATIVE PERCENT (BEAKER) (test 67 % fpql=013) LYMPHOCYTES RELATIVE PERCENT (BEAKER) (test 25 % qwru=972) MONOCYTES RELATIVE PERCENT (BEAKER) (test 5 % oiub=380) EOSINOPHILS RELATIVE PERCENT (BEAKER) (test 2 % csgq=463) BASOPHILS RELATIVE PERCENT (BEAKER) (test 0 % lsas=396) NEUTROPHILS ABSOLUTE COUNT (BEAKER) (test 4.52 K/ L 1.80-8.00 xmsx=136) LYMPHOCYTES ABSOLUTE COUNT (BEAKER) (test 1.70 K/ L 1.48-4.50 xxwy=604) MONOCYTES ABSOLUTE COUNT (BEAKER) (test 0.32 K/ L 0.00-1.30 mstx=765) EOSINOPHILS ABSOLUTE COUNT (BEAKER) (test 0.16 K/ L 0.00-0.50 zxhs=677) BASOPHILS ABSOLUTE COUNT (BEAKER) (test 0.03 K/ L 0.00-0.20 sxoz=207) 0.00BASI METABOLIC [id number] 05:14:00 Test Item Value Reference Range Comments SODIUM (BEAKER) (test 134 meq/L 136-145 gsbz=761) POTASSIUM (BEAKER) (test 4.2 meq/L 3.5-5.1 shzo=387) CHLORIDE (BEAKER) (test 101 meq/L 98-107 lqhx=891) CO2 (BEAKER) (test 24 meq/L 22-29 tvug=528) BLOOD UREA NITROGEN 20 mg/dL 7-21 (BEAKER) (test fckk=890) CREATININE (BEAKER) (test 1.16 mg/dL 0.57-1.25 tnma=916) GLUCOSE RANDOM (BEAKER) 216 mg/dL 70-105 (test tarl=195) CALCIUM (BEAKER) (test 8.8 mg/dL 8.4-10.2 wzrq=944) EGFR (BEAKER) (test 67 mL/min/1.73 sq m ESTIMATED GFR IS NOT zbla=1504) ACCURATE CREATININE CLEARANCE IN PREDICTING GLOMERULAR FILTRATION RATE. ESTIMATED GFR IS NOT APPLICABLE FOR DIALYSIS PATIENTS. POCT-GLUCOSE [id number] 21:04:00 Test Item Value Reference Range Comments POC-GLUCOSE METER (BEAKER) 178 mg/dL 70-110 TESTED AT [address] (test xogv=7512) [place] [id number] POCT-GLUCOSE [id number] 17:07:00 Test Item Value Reference Range Comments POC-GLUCOSE METER (BEAKER) 88 mg/dL 70-110 TESTED AT [address] (test lbfl=5989) [place] [id number] POCT-GLUCOSE [id number] 12:30:00 Test Item Value Reference Range Comments POC-GLUCOSE METER (BEAKER) 107 mg/dL 70-110 TESTED AT [address] (test miup=0565) [place] [id number] POCT-GLUCOSE [id number] 07:46:00 Test Item Value Reference Range Comments POC-GLUCOSE METER (BEAKER) 169 mg/dL 70-110 TESTED AT [address] (test ippf=3320) [place] [address] CBC W/PLT COUNT & AUTO [id number] 07:42:00 Test Item Value Reference Range Comments WHITE BLOOD CELL COUNT (BEAKER) (test xhho=883) 6.5 K/ L 4.0-10.0 RED BLOOD CELL COUNT (BEAKER) (test qqzl=763) 4.57 M/ L 4.20-5.80 HEMOGLOBIN (BEAKER) (test vkuc=899) 13.4 GM/DL 13.0-16.8 HEMATOCRIT (BEAKER) (test ljaq=012) 40.4 % 40.0-50.0 MEAN CORPUSCULAR VOLUME (BEAKER) (test phbn=897) 88.3 fL 82.0-98.0 MEAN CORPUSCULAR HEMOGLOBIN (BEAKER) (test 29.3 pg 27.0-33.0 gnje=497) MEAN CORPUSCULAR HEMOGLOBIN CONC (BEAKER) (test 33.2 GM/DL 32.0-36.0 fire=408) RED CELL DISTRIBUTION WIDTH (BEAKER) (test 13.8 % 10.3-14.2 rbcb=620) PLATELET COUNT (BEAKER) (test uvrh=081) 150 K/CU MM 150-430 MEAN PLATELET VOLUME (BEAKER) (test gwug=734) 9.0 fL 6.5-10.5 NUCLEATED RED BLOOD CELLS (BEAKER) (test 0 /100 WBC 0-0 aqeh=873) NEUTROPHILS RELATIVE PERCENT (BEAKER) (test 64 % wtyx=523) LYMPHOCYTES RELATIVE PERCENT (BEAKER) (test 26 % yaao=467) MONOCYTES RELATIVE PERCENT (BEAKER) (test 7 % gpha=699) EOSINOPHILS RELATIVE PERCENT (BEAKER) (test 3 % ehum=356) BASOPHILS RELATIVE PERCENT (BEAKER) (test 0 % mvdd=176) NEUTROPHILS ABSOLUTE COUNT (BEAKER) (test 4.13 K/ L 1.80-8.00 rffw=043) LYMPHOCYTES ABSOLUTE COUNT (BEAKER) (test 1.66 K/ L 1.48-4.50 ysqa=155) MONOCYTES ABSOLUTE COUNT (BEAKER) (test 0.44 K/ L 0.00-1.30 nxnd=871) EOSINOPHILS ABSOLUTE COUNT (BEAKER) (test 0.21 K/ L 0.00-0.50 bqoi=254) BASOPHILS ABSOLUTE COUNT (BEAKER) (test 0.03 K/ L 0.00-0.20 xwlg=812) 0.00BASIC METABOLIC [id number] 06:13:00 Test Item Value Reference Range Comments SODIUM (BEAKER) (test 136 meq/L 136-145 ueqh=046) POTASSIUM (BEAKER) (test 3.6 meq/L 3.5-5.1 ojpj=659) CHLORIDE (BEAKER) (test 101 meq/L 98-107 pqvd=629) CO2 (BEAKER) (test 25 meq/L 22-29 geti=247) BLOOD UREA NITROGEN 18 mg/dL 7-21 (BEAKER) (test ctyn=250) CREATININE (BEAKER) (test 1.07 mg/dL 0.57-1.25 vapm=191) GLUCOSE RANDOM (BEAKER) 188 mg/dL 70-105 (test wdrv=582) CALCIUM (BEAKER) (test 8.8 mg/dL 8.4-10.2 onkq=532) EGFR (BEAKER) (test 73 mL/min/1.73 sq m ESTIMATED GFR IS NOT nxih=2865) ACCURATE CREATININE CLEARANCE IN PREDICTING GLOMERULAR FILTRATION RATE. ESTIMATED GFR IS NOT APPLICABLE FOR DIALYSIS PATIENTS. POCT-GLUCOSE [id number] 22:12:00 Test Item Value Reference Range Comments POC-GLUCOSE METER (BEAKER) 238 mg/dL 70-110 TESTED AT [place] [id number] [facility] (test zlit=4476) [facility] [address] POCT-GLUCOSE [id number] 17:25:00 Test Item Value Reference Range Comments POC-GLUCOSE METER (BEAKER) 102 mg/dL 70-110 TESTED AT [address] (test pgms=3593) [facility] [address] URINALYSIS W/ [id number] 12:50:00 Test Item Value Reference Range Comments COLOR (BEAKER) (test hslp=784) Colorless CLARITY (BEAKER) (test ifxe=985) Clear SPECIFIC GRAVITY UA (BEAKER) (test phqt=257) 1.002 1.001-1.035 PH UA (BEAKER) (test idsz=445) 6.5 5.0-8.0 PROTEIN UA (BEAKER) (test ajbo=896) Negative Negative GLUCOSE UA (BEAKER) (test ruaz=443) Negative Negative KETONES UA (BEAKER) (test cjxt=999) Negative Negative BILIRUBIN UA (BEAKER) (test mfkc=507) Negative Negative BLOOD UA (BEAKER) (test luwv=408) Negative Negative NITRITE UA (BEAKER) (test lofb=700) Negative Negative LEUKOCYTE ESTERASE UA (BEAKER) (test zokw=533) Negative Negative UROBILINOGEN UA (BEAKER) (test dbae=891) 0.2 mg/dL 0.2-1.0 RBC UA (BEAKER) (test mzrj=058) 0 /HPF WBC UA (BEAKER) (test xnpg=480) < /HPF SOURCE(BEAKER) (test lcfw=9131) POCT-GLUCOSE [id number] 12:04:00 Test Item Value Reference Range Comments POC-GLUCOSE METER (BEAKER) 226 mg/dL 70-110 TESTED AT [facility] [address] [facility] (test zpob=6268) [facility] [address] POCT-GLUCOSE [id number] 08:00:00 Test Item Value Reference Range Comments POC-GLUCOSE METER (BEAKER) 300 mg/dL 70-110 TESTED AT [facility] [address] [facility] (test ulqt=5314) [facility] [address] BASIC METABOLIC [id number] 06:50:00 Test Item Value Reference Range Comments SODIUM (BEAKER) (test 134 meq/L 136-145 nexp=359) POTASSIUM (BEAKER) (test 4.0 meq/L 3.5-5.1 iovq=170) CHLORIDE (BEAKER) (test 98 meq/L 98-107 amgh=773) CO2 (BEAKER) (test 26 meq/L 22-29 bjia=409) BLOOD UREA NITROGEN 18 mg/dL 7-21 (BEAKER) (test dyof=691) CREATININE (BEAKER) (test 1.25 mg/dL 0.57-1.25 vbnf=318) GLUCOSE RANDOM (BEAKER) 349 mg/dL 70-105 (test tmnq=639) CALCIUM (BEAKER) (test 8.9 mg/dL 8.4-10.2 elkc=596) EGFR (BEAKER) (test 61 mL/min/1.73 sq m ESTIMATED GFR IS NOT jxdp=6403) ACCURATE CREATININE CLEARANCE IN PREDICTING GLOMERULAR FILTRATION RATE. ESTIMATED GFR IS NOT APPLICABLE FOR DIALYSIS PATIENTS. CBC W/PLT COUNT & AUTO [id number] 06:01:00 Test Item Value Reference Range Comments WHITE BLOOD CELL COUNT (BEAKER) (test tfys=951) 6.6 K/ L 4.0-10.0 RED BLOOD CELL COUNT (BEAKER) (test iykf=143) 4.79 M/ L 4.20-5.80 HEMOGLOBIN (BEAKER) (test bawh=216) 14.1 GM/DL 13.0-16.8 HEMATOCRIT (BEAKER) (test cyhx=527) 42.0 % 40.0-50.0 MEAN CORPUSCULAR VOLUME (BEAKER) (test bfnz=758) 87.7 fL 82.0-98.0 MEAN CORPUSCULAR HEMOGLOBIN (BEAKER) (test 29.5 pg 27.0-33.0 cjlk=795) MEAN CORPUSCULAR HEMOGLOBIN CONC (BEAKER) (test 33.6 GM/DL 32.0-36.0 eozt=071) RED CELL DISTRIBUTION WIDTH (BEAKER) (test 14.9 % 10.3-14.2 zyck=007) PLATELET COUNT (BEAKER) (test ejiv=161) 157 K/CU MM 150-430 MEAN PLATELET VOLUME (BEAKER) (test pttv=879) 9.0 fL 6.5-10.5 NUCLEATED RED BLOOD CELLS (BEAKER) (test 0 /100 WBC 0-0 sivz=964) NEUTROPHILS RELATIVE PERCENT (BEAKER) (test 67 % uupn=083) LYMPHOCYTES RELATIVE PERCENT (BEAKER) (test 23 % xdlm=316) MONOCYTES RELATIVE PERCENT (BEAKER) (test 7 % debg=565) EOSINOPHILS RELATIVE PERCENT (BEAKER) (test 3 % buqe=342) BASOPHILS RELATIVE PERCENT (BEAKER) (test 0 % fwfm=081) NEUTROPHILS ABSOLUTE COUNT (BEAKER) (test 4.44 K/ L 1.80-8.00 bsxs=268) LYMPHOCYTES ABSOLUTE COUNT (BEAKER) (test 1.51 K/ L 1.48-4.50 olgr=081) MONOCYTES ABSOLUTE COUNT (BEAKER) (test 0.43 K/ L 0.00-1.30 myxu=728) EOSINOPHILS ABSOLUTE COUNT (BEAKER) (test 0.21 K/ L 0.00-0.50 tqbq=237) BASOPHILS ABSOLUTE COUNT (BEAKER) (test 0.03 K/ L 0.00-0.20 prto=529) 0.00POCT-GLUCOSE [id number] 21:25:00 Test Item Value Reference Range Comments POC-GLUCOSE METER (BEAKER) 279 mg/dL 70-110 TESTED AT [facility] [address] [facility] (test wtyo=7715) [facility] [address] HEMOGLOBIN [id number] 21:13:00 Test Item Value Reference Range Comments HEMOGLOBIN A1C (BEAKER) (test lnkk=352) 10.7 % 4.3-6.1 CBC W/PLT COUNT & AUTO [id number] 20:47:00 Test Item Value Reference Range Comments WHITE BLOOD CELL COUNT (BEAKER) (test lzkf=934) 7.3 K/ L 4.0-10.0 RED BLOOD CELL COUNT (BEAKER) (test fkac=229) 5.25 M/ L 4.20-5.80 HEMOGLOBIN (BEAKER) (test wgfm=945) 15.7 GM/DL 13.0-16.8 HEMATOCRIT (BEAKER) (test syav=849) 46.0 % 40.0-50.0 MEAN CORPUSCULAR VOLUME (BEAKER) (test ymjs=962) 87.7 fL 82.0-98.0 MEAN CORPUSCULAR HEMOGLOBIN (BEAKER) (test 30.0 pg 27.0-33.0 regd=203) MEAN CORPUSCULAR HEMOGLOBIN CONC (BEAKER) (test 34.2 GM/DL 32.0-36.0 qxpj=413) RED CELL DISTRIBUTION WIDTH (BEAKER) (test 13.8 % 10.3-14.2 xjfd=520) PLATELET COUNT (BEAKER) (test kbsq=680) 166 K/CU MM 150-430 MEAN PLATELET VOLUME (BEAKER) (test cchh=690) 8.3 fL 6.5-10.5 NUCLEATED RED BLOOD CELLS (BEAKER) (test 0 /100 WBC 0-0 haxn=084) NEUTROPHILS RELATIVE PERCENT (BEAKER) (test 69 % lhyz=205) LYMPHOCYTES RELATIVE PERCENT (BEAKER) (test 22 % amtl=226) MONOCYTES RELATIVE PERCENT (BEAKER) (test 5 % tsrc=911) EOSINOPHILS RELATIVE PERCENT (BEAKER) (test 3 % teqg=991) BASOPHILS RELATIVE PERCENT (BEAKER) (test 0 % yzzr=286) NEUTROPHILS ABSOLUTE COUNT (BEAKER) (test 5.04 K/ L 1.80-8.00 xrtu=102) LYMPHOCYTES ABSOLUTE COUNT (BEAKER) (test 1.63 K/ L 1.48-4.50 xrig=415) MONOCYTES ABSOLUTE COUNT (BEAKER) (test 0.40 K/ L 0.00-1.30 ctjg=505) EOSINOPHILS ABSOLUTE COUNT (BEAKER) (test 0.22 K/ L 0.00-0.50 phwt=191) BASOPHILS ABSOLUTE COUNT (BEAKER) (test 0.01 K/ L 0.00-0.20 efgm=817) 0.00POCT-GLUCOSE [id number] 18:31:00 Test Item Value Reference Range Comments POC-GLUCOSE METER (BEAKER) 205 mg/dL 70-110 TESTED AT [facility] [address] [facility] (test ofxy=1066) [facility] [address]
[2017-07-12] MEDS ORDERED: ONDANSETRON 4 MG/2 ML VIAL ONE (00:16)
[2017-07-12] MEDS ORDERED: MORPHINE 4 MG/ML SYR ONE (00:16)
[2017-07-12] MEDS ORDERED: NA CHLORIDE 0.9% 1,000 ML ONE ×2 (00:16→02:03)
[2017-07-12 00:41] LABS: Absolute Lymphocytes (CBC) 0.9 K/uL (0.7-4.9); Absolute Monocytes 0.5 K/uL (0.1-1.3); Absolute Neutrophil 8.4 K/uL (1.8-8.0); Basophils % 0.4 % (0-1.3); Eosinophils % 0.7 % (0-4.4); Hematocrit 44.7 % (39.6-49.0); MCH 30.2 pg (27.0-35.0); MCV 87.9 fL (80-100); MPV 11.3 fL (7.6-11.3); Monocytes % 5.4 % (3.3-12.3); RBC Red Blood Cell Count 5.08 M/uL (4.33-5.43)
[2017-07-12 00:57] LABS: Potassium 3.6 mEq/L (3.6-5.0)
[2017-07-12] MEDS ORDERED: MEPERIDINE HCL 50 MG/ML AMP ONE (02:01)
--- NOTE | 2017-07-12 03:30 | EDPHYS ---
Physician Documentation [facility] Name: Ramirez Chaudhari Age: 52 yrs Sex: Male : 1965 Arrival Date: 07/11/2017 Time: 23:26 Bed 7 Private MD: Ramon Powers E ED Physician Parth Amato HPI: 07/12 01:28 This 52 yrs old Male presents to ER via Wheelchair with complaints of pkl Testicular Swelling, "Knot" on Head. 01:28 The patient presents with swelling, that is moderate, of the left testis. Onset: The pkl symptoms/episode began/occurred today. Associated signs and symptoms: Pertinent positives: pain. Patient also complained of knot on the scalp. Historical: - Allergies: 00:03 Ibuprofen; ao 00:03 metformin; ao - Home Meds: 00:03 atenolol 50 mg Oral tab 1 tab once daily [Active]; baclofen 10 mg Oral tab 1 tab twice ao a day [Active]; Colcrys 0.6 mg Oral tab 1 tab bid prn gout [Active]; hydrocodone-acetaminophen 10-325 mg Oral tab 1 tab three times a day [Active]; Levemir 36 units subcutaneous soln twice a day [Active]; levothyroxine 75 mcg tab 1 tab once daily [Active]; lisinopril 40 mg Oral tab 1 tab once daily [Active]; Novolog 22 units Sub-Q before meals [Active]; oxybutynin chloride 5 mg Oral tab 1 tab 3 times per day [Active]; pantoprazole 40 mg Oral grps 1 tab once daily [Active]; - PMHx: 00:03 ADD/ADHD; Diabetes - IDDM; GERD; High Cholesterol; Hydrocele Left Testicle; ao Hypertension; Hypothyroidism; Migraines; Paraplegia; Renal Disease; Gout; Spinal Stroke; - PSHx: 00:03 hydrocele; ao - Immunization history:: Adult Immunizations up to date. - Social history:: Smoking status: Patient/guardian denies using tobacco, Patient/guardian denies using alcohol, street drugs. ROS: 01:28 Eyes: Negative for injury, pain, redness, and discharge, ENT: Negative for injury, pkl pain, and discharge, Neck: Negative for injury, pain, and swelling, Cardiovascular: Negative for chest pain, palpitations, and edema, Respiratory: Negative for shortness of breath, cough, wheezing, and pleuritic chest pain, Abdomen/GI: Negative for abdominal pain, nausea, vomiting, diarrhea, and constipation, Back: Negative for injury and pain. :28 : Positive for testicular pain swelling left testis. : MS/extremity: Negative for acute changes. :28 Skin: Negative for rash. :28 Neuro: Negative for altered mental status. Exam: : Head/Face: Normocephalic, atraumatic. Eyes: Pupils equal round and reactive to light, pkl extra-ocular motions intact. Lids and lashes normal. Conjunctiva and sclera are non-icteric and not injected. Cornea within normal limits. Periorbital areas with no swelling, redness, or edema. ENT: Nares patent. No nasal discharge, no septal abnormalities noted. Tympanic membranes are normal and external auditory canals are clear. Oropharynx with no redness, swelling, or masses, exudates, or evidence of obstruction, uvula midline. Mucous membranes moist. Neck: Trachea midline, no thyromegaly or masses palpated, and no cervical lymphadenopathy. Supple, full range of motion without nuchal rigidity, or vertebral point tenderness. No Meningismus. Chest/axilla: Normal chest wall appearance and motion. Nontender with no deformity. No lesions are appreciated. Cardiovascular: Regular rate and rhythm with a normal S1 and S2. No gallops, murmurs, or rubs. Normal PMI, no JVD. No pulse deficits. Respiratory: Lungs have equal breath sounds bilaterally, clear to auscultation and percussion. No rales, rhonchi or wheezes noted. No increased work of breathing, no retractions or nasal flaring. Abdomen/GI: Soft, non-tender, with normal bowel sounds. No distension or tympany. No guarding or rebound. No evidence of tenderness throughout. Back: No spinal tenderness. No costovertebral tenderness. Full range of motion. :28 : Male external genitalia: swelling, pain left testis. Vital Signs: 00:04 BP 146 / 101; Pulse 121; Resp 18; Temp 98.4(O); Pulse Ox 98% on R/A; Weight 104.33 kg; ao Height 5 ft. 8 in. (172.72 cm); Pain 10/10; 01:07 BP 127 / 96; Pulse 113; Resp 20; Pulse Ox 97% on R/A; Pain 0/10; ao 01:45 BP 134 / 87; Pulse 106; Resp 20; Pulse Ox 96% ; ao 02:30 BP 106 / 86; Pulse 106; Resp 18; Pulse Ox 99% on R/A; Pain 0/10; ao 03:30 BP 120 / 72; Pulse 106; Resp 18; Pulse Ox 97% ; Pain 0/10; ao 04:48 BP 114 / 63; Pulse 106; Resp 18; Pulse Ox 98% on R/A; Pain 0/10; ao 05:55 BP 113 / 67; Pulse 104; Resp 18; Pulse Ox 99% on R/A; ao 00:04 Body Mass Index 34.97 (104.33 kg, 172.72 cm) ao MDM: 07/11 23:57 Patient medically screened. pkl 07/12 03:27 Data reviewed: vital signs, nurses notes, lab test result(s), radiologic studies, CT pkl scan, ultrasound. 07/12 00:05 Order name: CBC with Diff; Complete Time: 03:24 pkl 07/12 00:05 Order name: Chem 7; Complete Time: 01:25 pkl 07/12 00:05 Order name: Lactate; Complete Time: 01:25 pkl 07/12 00:05 Order name: Sed Rate; Complete Time: 03:24 pkl 07/12 00:31 Order name: Blood Culture Adult (2) em1 07/12 03:56 Order name: Lactate Sepsis 2 HR Follow-up; Complete Time: 04:31 EDMS 07/12 00:05 Order name: CT Head Brain wo Cont pkl 07/12 00:47 Order name: US Scrotum Testicles em1 07/12 04:02 Order name: Urine Microscopic Only; Complete Time: 04:31 ao 07/12 04:02 Order name: Urine Culture ao 07/12 04:10 Order name: Urine Dipstick--Ancillary (enter results); Complete Time: 06:01 em1 07/12 05:13 Order name: Lactate; Complete Time: 06:01 pkl 07/12 00:37 Order name: [place]; Complete Time: 00:37 ao 07/12 04:07 Order name: Urine Dipstick-Ancillary (obtain specimen); Complete Time: 04:07 ao Administered Medications: 00:37 Drug: morphine 4 mg Route: IVP; Site: right forearm; ao 01:55 Follow up: Response: No adverse reaction ao 00:37 Drug: Zofran 4 mg Route: IVP; Site: right forearm; ao 01:56 Follow up: Response: No adverse reaction ao 00:41 Drug: NS 0.9% 500 ml Route: IV; Rate: bolus; Site: right forearm; ao 01:55 Follow up: IV Status: Completed infusion ao 04:41 Follow up: IV Status: Completed infusion ao 01:09 Drug: NS 0.9% 500 ml Route: IV; Rate: bolus; Site: right forearm; ao 04:41 Follow up: IV Status: Completed infusion; IV Intake: 500ml ao 01:56 Drug: NS 0.9% 1000 ml Route: IV; Rate: 100 ml/hr; Site: right forearm; ao 06:16 Follow up: IV Status: Patient DC ao 02:06 Drug: Demerol 50 mg Route: IVP; Site: right antecubital; ao 04:41 Follow up: Response: No adverse reaction; Pain is decreased ao 04:33 Not Given (Duplicate Order): Cipro 500 mg PO once ao 04:40 Drug: Cipro 400 mg Volume: 200 ml; Route: IVPB; Infused Over: 60 mins; Site: right ao antecubital; 05:49 Follow up: IV Status: Completed infusion ao 04:40 Drug: NS 0.9% 500 ml Route: IV; Rate: bolus; Site: right antecubital; ao 05:11 Follow up: IV Status: Completed infusion ak1 06:02 Drug: [place] (7.5 mg-325 mg) 1 tabs Route: PO; ao 06:03 Follow up: Response: Medication administered at discharge. ao Disposition: 07/12/17 03:29 Discharged to Home. Impression: Left testicular pain and swelling. Knot on scalp. Urinary tract infection. - Condition is Stable. - Prescriptions for Ultram 50 mg Oral Tablet - take 1 tablet by ORAL route every 8 hours As needed; 20 tablet. Cipro 500 mg Oral Tablet - take 1 tablet by ORAL route every 12 hours for 7 days; 14 tablet. - Medication Reconciliation Form, Thank You Letter, Antibiotic Education, Prescription Opioid Use form. - Follow up: Kaitlin Doan MD; When: 2 - 3 days; Reason: Re-evaluation by your physician. - Problem is new. - Symptoms have improved. Signatures: Dispatcher [employer] EDParth Cuellar MD MD pkl Francisco Angulo RN RN Chani Bain RN ak1 Corrections: (The following items were deleted from the chart) 04:33 03:29 07/12/2017 03:29 Discharged to Home. Impression: Left testicular pain and pkl swelling. Knot on scalp. Condition is Stable. Forms are Medication Reconciliation Form, Thank You Letter, Antibiotic Education, Prescription Opioid Use. Follow up: Kaitlin Doan; When: 2 - 3 days; Reason: Re-evaluation by your physician. Problem is new. Symptoms have improved. pkl 06:15 04:33 07/12/2017 03:29 Discharged to Home. Impression: Left testicular pain and ao swelling. Knot on scalp. Urinary tract infection. Condition is Stable. Prescriptions for Ultram 50 mg Oral Tablet - take 1 tablet by ORAL route every 8 hours As needed; 20 tablet. and Forms are Medication Reconciliation Form, Thank You Letter, Antibiotic Education, Prescription Opioid Use. Follow up: Kaitlin Doan; When: 2 - 3 days; Reason: Re-evaluation by your physician. Problem is new. Symptoms have improved. pkl
--- NOTE | 2017-07-12 03:30 | ER ---
Nurse's Notes [facility] Name: Ramirez Chaudhari Age: 52 yrs Sex: Male : 1965 Arrival Date: 07/11/2017 Time: 23:26 Bed 7 Private MD: Ramon Powers E Diagnosis: Left testicular pain and swelling. Knot on scalp. Urinary tract infection Presentation: 07/11 23:53 Presenting complaint: Patient states: "Patient is been having left testicle pain. The ao testicle is also getting swollen." Patient report surgery in both testicles in the past due to hydrocele and the problem seem to be the same this time. Transition of care: patient was not received from another setting of care. Onset of symptoms is unknown. Initial Sepsis Screen: Does the patient meet any 2 criteria? HR > 90 bpm. No. Patient's initial sepsis screen is negative. Does the patient have a suspected source of infection? No. Patient's initial sepsis screen is negative. Care prior to arrival: None. 23:53 Method Of Arrival: Wheelchair ao 23:53 Acuity: NOHEMI 3 ao Historical: - Allergies: 07/12 00:03 Ibuprofen; ao 00:03 metformin; ao - Home Meds: 00:03 atenolol 50 mg Oral tab 1 tab once daily [Active]; baclofen 10 mg Oral tab 1 tab twice ao a day [Active]; Colcrys 0.6 mg Oral tab 1 tab bid prn gout [Active]; hydrocodone-acetaminophen 10-325 mg Oral tab 1 tab three times a day [Active]; Levemir 36 units subcutaneous soln twice a day [Active]; levothyroxine 75 mcg tab 1 tab once daily [Active]; lisinopril 40 mg Oral tab 1 tab once daily [Active]; Novolog 22 units Sub-Q before meals [Active]; oxybutynin chloride 5 mg Oral tab 1 tab 3 times per day [Active]; pantoprazole 40 mg Oral grps 1 tab once daily [Active]; - PMHx: 00:03 ADD/ADHD; Diabetes - IDDM; GERD; High Cholesterol; Hydrocele Left Testicle; ao Hypertension; Hypothyroidism; Migraines; Paraplegia; Renal Disease; Gout; Spinal Stroke; - PSHx: 00:03 hydrocele; ao - Immunization history:: Adult Immunizations up to date. - Social history:: Smoking status: Patient/guardian denies using tobacco, Patient/guardian denies using alcohol, street drugs. Screenin:10 Abuse screen: Denies threats or abuse. Denies injuries from another. Nutritional ao screening: No deficits noted. Tuberculosis screening: No symptoms or risk factors identified. Fall Risk None identified. Assessment: 00:05 General: Appears in no apparent distress. comfortable, Behavior is calm, cooperative, ao appropriate for age. Pain: Complains of pain in Testicles Pain radiates to lateral aspect of left thigh Pain currently is 10 out of 10 on a pain scale. Neuro: Level of Consciousness is awake, alert, obeys commands, Oriented to person, place, time, situation, Appropriate for age Paralysis in bilateral leg(s) Speech is normal. Cardiovascular: Heart tones S1 S2 Capillary refill < 3 seconds Patient's skin is warm and dry. Respiratory: Airway is patent Respiratory effort is even, unlabored, Respiratory pattern is regular, symmetrical. GI: Abdomen is non-distended. : Swelling noted on scrotum. EENT: No signs and/or symptoms were reported regarding the EENT system. Derm: swollen testicles. Musculoskeletal: Range of motion: limited in lower extremities. 01:03 Reassessment: Received a lab alert lactate 21.8. Dr Gunter notified and ordered to bolus ao another 500 ML NS. 01:07 Reassessment: Patient appears in no apparent distress at this time. No changes from ao previously documented assessment. Patient and/or family updated on plan of care and expected duration. Pain level reassessed. Patient is alert, oriented x 3, equal unlabored respirations, skin warm/dry/pink. Ultrasound is been done at this moment. 01:56 Reassessment: Patient appears in no apparent distress at this time. Patient and/or ao family updated on plan of care and expected duration. Pain level reassessed. Patient is alert, oriented x 3, equal unlabored respirations, skin warm/dry/pink. 01:59 Reassessment: Received an verbal order from Dr gunter to medicate patient with Demerol 50 ao IVP. 03:30 Reassessment: Patient appears in no apparent distress at this time. Patient and/or ao family updated on plan of care and expected duration. Pain level reassessed. Patient is alert, oriented x 3, equal unlabored respirations, skin warm/dry/pink. 04:06 Reassessment: Dr Gunter ordered to run urine and u lisa. urine has been send. Waiting on ao results before discharge patient. 04:45 Reassessment: Patient to be discharge after CIpro IV is complete. Patient resting with ao no SS of distress. 05:57 Reassessment: pt family requested the Valera catheter remain in place until pt sees Dr. alexis Doan, ERP notified. DR. Gunter agreed to leave Valera catheter in place. . 06:04 Reassessment: Received an verbal order from Dr gunter to medicate patient with norco 7.5 ao as requested by patient. DC instructions given to patient and . Patient understand the POC and to follow up with DR Doan. Vital Signs: 00:04 BP 146 / 101; Pulse 121; Resp 18; Temp 98.4(O); Pulse Ox 98% on R/A; Weight 104.33 kg; ao Height 5 ft. 8 in. (172.72 cm); Pain 10/10; 01:07 BP 127 / 96; Pulse 113; Resp 20; Pulse Ox 97% on R/A; Pain 0/10; ao 01:45 BP 134 / 87; Pulse 106; Resp 20; Pulse Ox 96% ; ao 02:30 BP 106 / 86; Pulse 106; Resp 18; Pulse Ox 99% on R/A; Pain 0/10; ao 03:30 BP 120 / 72; Pulse 106; Resp 18; Pulse Ox 97% ; Pain 0/10; ao 04:48 BP 114 / 63; Pulse 106; Resp 18; Pulse Ox 98% on R/A; Pain 0/10; ao 05:55 BP 113 / 67; Pulse 104; Resp 18; Pulse Ox 99% on R/A; ao 00:04 Body Mass Index 34.97 (104.33 kg, 172.72 cm) ao ED Course: 07/11 23:26 Patient arrived in ED. do 23:27 Ramon Powers MD is Private Physician. do 23:53 Francisco Angulo, NORBERTO is Primary Nurse. ao 23:57 Triage completed. ao 23:57 Parth Gunter MD is Attending Physician. pkl 23:57 Arm band placed on right wrist. Patient placed in an exam room, on a stretcher, on ao ekg monitor tech, on pulse oximetry, Patient notified of wait time. 05/06 00:24 Radiology exam delayed due to pt getting IV and needs help using the restroom before vr CT, nurse to call when he is ready. 00:58 Radiology exam delayed due to US at bedside. vr 01:00 Inserted saline lock: 20 gauge in right forearm, using aseptic technique. Blood oe collected. 01:10 Patient has correct armband on for positive identification. Pulse ox on. NIBP on. ao 01:29 US Scrotum Testicles In Process Unspecified. EDMS 01:29 Ultrasound completed. Patient tolerated poorly. ap2 02:00 CT Head Brain wo Cont In Process Unspecified. EDMS 03:28 Kaitlin Doan MD is Referral Physician. pkl 06:06 No provider procedures requiring assistance completed. IV discontinued, intact, ao bleeding controlled, No redness/swelling at site. Pressure dressing applied. Administered Medications: 00:37 Drug: morphine 4 mg Route: IVP; Site: right forearm; ao 01:55 Follow up: Response: No adverse reaction ao 00:37 Drug: Zofran 4 mg Route: IVP; Site: right forearm; ao 01:56 Follow up: Response: No adverse reaction ao 00:41 Drug: NS 0.9% 500 ml Route: IV; Rate: bolus; Site: right forearm; ao 01:55 Follow up: IV Status: Completed infusion ao 04:41 Follow up: IV Status: Completed infusion ao 01:09 Drug: NS 0.9% 500 ml Route: IV; Rate: bolus; Site: right forearm; ao 04:41 Follow up: IV Status: Completed infusion; IV Intake: 500ml ao 01:56 Drug: NS 0.9% 1000 ml Route: IV; Rate: 100 ml/hr; Site: right forearm; ao 06:16 Follow up: IV Status: Patient DC ao 02:06 Drug: Demerol 50 mg Route: IVP; Site: right antecubital; ao 04:41 Follow up: Response: No adverse reaction; Pain is decreased ao 04:33 Not Given (Duplicate Order): Cipro 500 mg PO once ao 04:40 Drug: Cipro 400 mg Volume: 200 ml; Route: IVPB; Infused Over: 60 mins; Site: right ao antecubital; 05:49 Follow up: IV Status: Completed infusion ao 04:40 Drug: NS 0.9% 500 ml Route: IV; Rate: bolus; Site: right antecubital; ao 05:11 Follow up: IV Status: Completed infusion ak1 06:02 Drug: Ferdinand (7.5 mg-325 mg) 1 tabs Route: PO; ao 06:03 Follow up: Response: Medication administered at discharge. ao Intake: 04:41 IV: 500ml; Total: 500ml. ao Outcome: 03:29 Discharge ordered by . pkirais 06:06 Discharged to home via wheelchair. ao 06:06 Condition: stable 06:06 Discharge instructions given to patient, significant other, Instructed on discharge instructions, follow up and referral plans. the need for admit, Demonstrated understanding of instructions, follow-up care, medications, wound care, Prescriptions given X 2. 06:15 Patient left the ED. ao Addendum: 07/17/2017 07:35 Addendum: Culture Results: Positive urine culture. No further action required. Bacteria i w sensitive to prescribed antibiotic. Signatures: Dispatcher [employer] EDMS Parth Gunter MD MD pkl Williams, Irene, RN RN iw Davis, Victoria vr Krenek, Amber, RN RN ak1 Francisco Angulo RN RN ao Eduarda, Yvonne Caro, Yves Hernandez, Ashley ap2 Corrections: (The following items were deleted from the chart) 07/12 04:45 03:30 Reassessment: Patient to be discharge after CIpro IV is complete. Patient resting ao with no SS of distress ao 04:48 03:30 BP 114 / 63; Pulse 106bpm; Resp 18bpm; Pulse Ox 98% RA; Pain 0/10; ao ao
[2017-07-12 04:18] LABS: Urine Amorphous Sediment 1+ /HPF (NONE SEEN); Urine Bacteria 20-50 /HPF (NONE SEEN); Urine Culture Reflex Order NOT NEEDED; Urine RBC >50 /HPF (NONE SEEN)
[2017-07-12] MEDS ORDERED: CIPROFLOXACIN HCL 500 MG TAB ONE (04:31)
[2017-07-12] MEDS ORDERED: CIPROFLOXACIN 400mg IV 400 MG/200 ML BAG IV ONE (04:35)
[2017-07-12 05:47] LABS: Urine Blood 3+ (NEG); Urine Glucose 2+ (NEG); Urine Protein 2+ (NEG)
[2017-07-12] MEDS ORDERED: HYDROCODONE/APAP 7.5/325 MG TAB ONE (05:59)
[2017-07-12 06:20] VITALS: TEMP 98.4
[2017-07-12 06:28] VITALS: BP 113/67; O2SAT 99
--- NOTE | 2017-07-12 13:41 | RAD REPORT ---
EXAM DESCRIPTION: CT - Head Brain Wo Cont - 07/12/2017 6:37 am CLINICAL HISTORY: Altered consciousness. COMPARISON: 11/23/2016 TECHNIQUE: All CT scans are performed using dose optimization technique as appropriate and may inclu de automated exposure control or mA/KV adjustment according to patient size. FINDINGS: No intracranial hemorrhage, hydrocephalus or extra-axial fluid collection.No areas of brai n edema or evidence of midline shift. Moderate polyp versus mucous retention cyst in the sphenoid sinus, appearing chronic. Otherwise, the paranasal sinuses and mastoids appear clear. The calvarium is intact. IMPRESSION: No acute intracranial abnormality.
--- NOTE | 2017-07-12 14:11 | RAD REPORT ---
EXAM DESCRIPTION: US - Scrotum Testicles - 07/12/2017 1:29 am CLINICAL HISTORY: Scrotal pain and swelling. COMPARISON: 10/24/2016, 09/18/2016 FINDINGS: The right testicle 3.9 x 3.0 x 2.7 cm. No intratesticular masses or evidence of testicular torsion. The left testicle 4.4 x 2.7 x 2.3 cm. No intratesticular masses or evidence of testicular torsion. Both epididymides are normal in size and appearance. Bilateral varicoceles noted. Moderate scrotal wall thickening, similar prior study. Prominent soft tissues surrounding the left te sticle appears unchanged. IMPRESSION: Negative for testicular torsion or intratesticular mass.
== END 2017-07-12 06:15 | disposition home or self-care (01) ==
LOC: ER 23:24
DX: N39.0 Urinary tract infection, site not specified (principal); R22.0 Localized swelling, mass and lump, head; I10 Essential (primary) hypertension; E11.9 Type 2 diabetes mellitus without complications; E03.9 Hypothyroidism, unspecified; E78.00 Pure hypercholesterolemia, unspecified; N28.9 Disorder of kidney and ureter, unspecified; F90.9 Attention-deficit hyperactivity disorder, unspecified type; Z79.4 Long term (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
CPT/HCPCS: 36415; 70450; 76870; 80048; 83605 ×3; 85025; 85652; 87040 ×2; 87086; 87088; J0744; J2175; J2405; J7030 ×2; 81003; 81015; 87077; 87186; 99284

== ENCOUNTER 2017-07-12 15:08 | Inpatient (IN) | payer OTHER ==
--- OUTSIDE RECORDS SUMMARY | 2017-07-12 15:10 | XMS REPORT ---
:[address] [facility] Address [address] [place] [address] Care Team Providers Name Role Phone FAITH GOMEZ Unavailable Unavailable Problems This patient has no known problems. Allergies, Adverse Reactions, Alerts This patient has no known allergies or adverse reactions. Medications This patient has no known medications. Results Test Description Test Time Test Comments Text Results Atomic Results Result Comments BLOOD CULTURE 2016-07-07 14:28:00 Test Item Value Reference Range Comments CULTURE (BEAKER) (test zxlz=4067) No growth in 5 days POCT-GLUCOSE [id number] 12:04:00 Test Item Value Reference Range Comments POC-GLUCOSE METER (BEAKER) 179 mg/dL 70-110 TESTED AT [facility] [address] [facility] (test xfbd=3953) [facility] [address] BASIC METABOLIC [id number] 09:51:00 Test Item Value Reference Range Comments SODIUM (BEAKER) (test 137 meq/L 136-145 cziv=120) POTASSIUM (BEAKER) (test 3.7 meq/L 3.5-5.1 qogz=995) CHLORIDE (BEAKER) (test 102 meq/L 98-107 ivqy=722) CO2 (BEAKER) (test 25 meq/L 22-29 ynvz=805) BLOOD UREA NITROGEN 17 mg/dL 7-21 (BEAKER) (test docs=131) CREATININE (BEAKER) (test 1.04 mg/dL 0.57-1.25 kgvu=907) GLUCOSE RANDOM (BEAKER) 195 mg/dL 70-105 (test xjfc=106) CALCIUM (BEAKER) (test 9.2 mg/dL 8.4-10.2 ltft=770) EGFR (BEAKER) (test 76 mL/min/1.73 sq m ESTIMATED GFR IS NOT xcgf=7077) ACCURATE CREATININE CLEARANCE IN PREDICTING GLOMERULAR FILTRATION RATE. ESTIMATED GFR IS NOT APPLICABLE FOR DIALYSIS PATIENTS. CBC W/PLT COUNT & AUTO [id number] 09:20:00 Test Item Value Reference Range Comments WHITE BLOOD CELL COUNT (BEAKER) (test zxsr=540) 6.1 K/ L 4.0-10.0 RED BLOOD CELL COUNT (BEAKER) (test dsal=288) 4.63 M/ L 4.20-5.80 HEMOGLOBIN (BEAKER) (test sirr=163) 13.7 GM/DL 13.0-16.8 HEMATOCRIT (BEAKER) (test cuvd=988) 39.8 % 40.0-50.0 MEAN CORPUSCULAR VOLUME (BEAKER) (test eijn=183) 85.9 fL 82.0-98.0 MEAN CORPUSCULAR HEMOGLOBIN (BEAKER) (test 29.6 pg 27.0-33.0 exqh=714) MEAN CORPUSCULAR HEMOGLOBIN CONC (BEAKER) (test 34.5 GM/DL 32.0-36.0 zgeg=196) RED CELL DISTRIBUTION WIDTH (BEAKER) (test 14.8 % 10.3-14.2 cusz=902) PLATELET COUNT (BEAKER) (test ykth=332) 143 K/CU MM 150-430 MEAN PLATELET VOLUME (BEAKER) (test rvzk=260) 8.6 fL 6.5-10.5 NUCLEATED RED BLOOD CELLS (BEAKER) (test 0 /100 WBC 0-0 damo=629) NEUTROPHILS RELATIVE PERCENT (BEAKER) (test 71 % njco=390) LYMPHOCYTES RELATIVE PERCENT (BEAKER) (test 20 % fsbl=963) MONOCYTES RELATIVE PERCENT (BEAKER) (test 5 % iayt=633) EOSINOPHILS RELATIVE PERCENT (BEAKER) (test 3 % owdt=533) BASOPHILS RELATIVE PERCENT (BEAKER) (test 1 % dynf=542) NEUTROPHILS ABSOLUTE COUNT (BEAKER) (test 4.31 K/ L 1.80-8.00 pqgx=645) LYMPHOCYTES ABSOLUTE COUNT (BEAKER) (test 1.23 K/ L 1.48-4.50 grbc=166) MONOCYTES ABSOLUTE COUNT (BEAKER) (test 0.28 K/ L 0.00-1.30 jwoy=707) EOSINOPHILS ABSOLUTE COUNT (BEAKER) (test 0.21 K/ L 0.00-0.50 vlfk=630) BASOPHILS ABSOLUTE COUNT (BEAKER) (test 0.03 K/ L 0.00-0.20 peiu=693) 0.00POCT-GLUCOSE [id number] 07:15:00 Test Item Value Reference Range Comments POC-GLUCOSE METER (BEAKER) 246 mg/dL 70-110 TESTED AT [address] (test eakj=9436) [place] [address] POCT-GLUCOSE [id number] 21:12:00 Test Item Value Reference Range Comments POC-GLUCOSE METER (BEAKER) 89 mg/dL 70-110 TESTED AT [address] (test yzvt=6989) [place] [address] POCT-GLUCOSE [id number] 17:12:00 Test Item Value Reference Range Comments POC-GLUCOSE METER (BEAKER) 217 mg/dL 70-110 TESTED AT [address] (test afxx=9519) [place] [address] URINE [id number] 12:07:00 Test Item Value Reference Range Comments CULTURE (BEAKER) (test yicf=6399) <10,000 col/mL skin candi POCT-GLUCOSE [id number] 11:30:00 Test Item Value Reference Range Comments POC-GLUCOSE METER (BEAKER) 205 mg/dL 70-110 TESTED AT [address] (test xrww=4549) [place] [address] POCT-GLUCOSE [id number] 07:36:00 Test Item Value Reference Range Comments POC-GLUCOSE METER (BEAKER) 195 mg/dL 70-110 TESTED AT [address] (test bxcj=8640) [place] [address] CBC W/PLT COUNT & AUTO [id number] 05:14:00 Test Item Value Reference Range Comments WHITE BLOOD CELL COUNT (BEAKER) (test xqat=880) 6.7 K/ L 4.0-10.0 RED BLOOD CELL COUNT (BEAKER) (test tcoy=802) 4.40 M/ L 4.20-5.80 HEMOGLOBIN (BEAKER) (test cuma=012) 13.3 GM/DL 13.0-16.8 HEMATOCRIT (BEAKER) (test cjld=632) 38.2 % 40.0-50.0 MEAN CORPUSCULAR VOLUME (BEAKER) (test brsz=491) 86.8 fL 82.0-98.0 MEAN CORPUSCULAR HEMOGLOBIN (BEAKER) (test 30.1 pg 27.0-33.0 gpdk=767) MEAN CORPUSCULAR HEMOGLOBIN CONC (BEAKER) (test 34.7 GM/DL 32.0-36.0 xzvq=880) RED CELL DISTRIBUTION WIDTH (BEAKER) (test 14.7 % 10.3-14.2 mylz=681) PLATELET COUNT (BEAKER) (test qvcp=983) 144 K/CU MM 150-430 MEAN PLATELET VOLUME (BEAKER) (test nxlz=095) 9.0 fL 6.5-10.5 NUCLEATED RED BLOOD CELLS (BEAKER) (test 0 /100 WBC 0-0 bffd=488) NEUTROPHILS RELATIVE PERCENT (BEAKER) (test 67 % mkkm=431) LYMPHOCYTES RELATIVE PERCENT (BEAKER) (test 25 % ziqx=457) MONOCYTES RELATIVE PERCENT (BEAKER) (test 5 % prdf=710) EOSINOPHILS RELATIVE PERCENT (BEAKER) (test 2 % wzcc=990) BASOPHILS RELATIVE PERCENT (BEAKER) (test 0 % wmxk=073) NEUTROPHILS ABSOLUTE COUNT (BEAKER) (test 4.52 K/ L 1.80-8.00 rnvs=173) LYMPHOCYTES ABSOLUTE COUNT (BEAKER) (test 1.70 K/ L 1.48-4.50 gnag=509) MONOCYTES ABSOLUTE COUNT (BEAKER) (test 0.32 K/ L 0.00-1.30 rrkm=451) EOSINOPHILS ABSOLUTE COUNT (BEAKER) (test 0.16 K/ L 0.00-0.50 uuxr=872) BASOPHILS ABSOLUTE COUNT (BEAKER) (test 0.03 K/ L 0.00-0.20 nyeu=376) 0.00BASI METABOLIC [id number] 05:14:00 Test Item Value Reference Range Comments SODIUM (BEAKER) (test 134 meq/L 136-145 wbgg=088) POTASSIUM (BEAKER) (test 4.2 meq/L 3.5-5.1 qysa=650) CHLORIDE (BEAKER) (test 101 meq/L 98-107 lwdb=516) CO2 (BEAKER) (test 24 meq/L 22-29 jkyo=789) BLOOD UREA NITROGEN 20 mg/dL 7-21 (BEAKER) (test uwxy=695) CREATININE (BEAKER) (test 1.16 mg/dL 0.57-1.25 dsmz=084) GLUCOSE RANDOM (BEAKER) 216 mg/dL 70-105 (test imta=931) CALCIUM (BEAKER) (test 8.8 mg/dL 8.4-10.2 ypdn=593) EGFR (BEAKER) (test 67 mL/min/1.73 sq m ESTIMATED GFR IS NOT lswp=2912) ACCURATE CREATININE CLEARANCE IN PREDICTING GLOMERULAR FILTRATION RATE. ESTIMATED GFR IS NOT APPLICABLE FOR DIALYSIS PATIENTS. POCT-GLUCOSE [id number] 21:04:00 Test Item Value Reference Range Comments POC-GLUCOSE METER (BEAKER) 178 mg/dL 70-110 TESTED AT [address] (test jywo=2836) [place] [id number] POCT-GLUCOSE [id number] 17:07:00 Test Item Value Reference Range Comments POC-GLUCOSE METER (BEAKER) 88 mg/dL 70-110 TESTED AT [address] (test nzmq=4847) [place] [id number] POCT-GLUCOSE [id number] 12:30:00 Test Item Value Reference Range Comments POC-GLUCOSE METER (BEAKER) 107 mg/dL 70-110 TESTED AT [address] (test bvyo=6313) [place] [id number] POCT-GLUCOSE [id number] 07:46:00 Test Item Value Reference Range Comments POC-GLUCOSE METER (BEAKER) 169 mg/dL 70-110 TESTED AT [address] (test koub=7993) [place] [address] CBC W/PLT COUNT & AUTO [id number] 07:42:00 Test Item Value Reference Range Comments WHITE BLOOD CELL COUNT (BEAKER) (test aeha=789) 6.5 K/ L 4.0-10.0 RED BLOOD CELL COUNT (BEAKER) (test szrd=417) 4.57 M/ L 4.20-5.80 HEMOGLOBIN (BEAKER) (test qzua=208) 13.4 GM/DL 13.0-16.8 HEMATOCRIT (BEAKER) (test dafn=059) 40.4 % 40.0-50.0 MEAN CORPUSCULAR VOLUME (BEAKER) (test ndhi=605) 88.3 fL 82.0-98.0 MEAN CORPUSCULAR HEMOGLOBIN (BEAKER) (test 29.3 pg 27.0-33.0 efes=088) MEAN CORPUSCULAR HEMOGLOBIN CONC (BEAKER) (test 33.2 GM/DL 32.0-36.0 ldib=201) RED CELL DISTRIBUTION WIDTH (BEAKER) (test 13.8 % 10.3-14.2 qshy=332) PLATELET COUNT (BEAKER) (test evig=968) 150 K/CU MM 150-430 MEAN PLATELET VOLUME (BEAKER) (test rlfy=347) 9.0 fL 6.5-10.5 NUCLEATED RED BLOOD CELLS (BEAKER) (test 0 /100 WBC 0-0 yekr=771) NEUTROPHILS RELATIVE PERCENT (BEAKER) (test 64 % ejxu=554) LYMPHOCYTES RELATIVE PERCENT (BEAKER) (test 26 % eddy=128) MONOCYTES RELATIVE PERCENT (BEAKER) (test 7 % uhnx=399) EOSINOPHILS RELATIVE PERCENT (BEAKER) (test 3 % fydr=567) BASOPHILS RELATIVE PERCENT (BEAKER) (test 0 % iceh=386) NEUTROPHILS ABSOLUTE COUNT (BEAKER) (test 4.13 K/ L 1.80-8.00 jppb=183) LYMPHOCYTES ABSOLUTE COUNT (BEAKER) (test 1.66 K/ L 1.48-4.50 rfao=359) MONOCYTES ABSOLUTE COUNT (BEAKER) (test 0.44 K/ L 0.00-1.30 bmhk=503) EOSINOPHILS ABSOLUTE COUNT (BEAKER) (test 0.21 K/ L 0.00-0.50 sojf=725) BASOPHILS ABSOLUTE COUNT (BEAKER) (test 0.03 K/ L 0.00-0.20 urft=702) 0.00BASIC METABOLIC [id number] 06:13:00 Test Item Value Reference Range Comments SODIUM (BEAKER) (test 136 meq/L 136-145 qjaj=788) POTASSIUM (BEAKER) (test 3.6 meq/L 3.5-5.1 xwfr=958) CHLORIDE (BEAKER) (test 101 meq/L 98-107 evgp=813) CO2 (BEAKER) (test 25 meq/L 22-29 ivve=984) BLOOD UREA NITROGEN 18 mg/dL 7-21 (BEAKER) (test ytnh=225) CREATININE (BEAKER) (test 1.07 mg/dL 0.57-1.25 yfwx=178) GLUCOSE RANDOM (BEAKER) 188 mg/dL 70-105 (test raqe=298) CALCIUM (BEAKER) (test 8.8 mg/dL 8.4-10.2 yuxm=013) EGFR (BEAKER) (test 73 mL/min/1.73 sq m ESTIMATED GFR IS NOT pnrs=0243) ACCURATE CREATININE CLEARANCE IN PREDICTING GLOMERULAR FILTRATION RATE. ESTIMATED GFR IS NOT APPLICABLE FOR DIALYSIS PATIENTS. POCT-GLUCOSE [id number] 22:12:00 Test Item Value Reference Range Comments POC-GLUCOSE METER (BEAKER) 238 mg/dL 70-110 TESTED AT [place] [id number] [facility] (test gtkn=1257) [facility] [address] POCT-GLUCOSE [id number] 17:25:00 Test Item Value Reference Range Comments POC-GLUCOSE METER (BEAKER) 102 mg/dL 70-110 TESTED AT [address] (test bunp=1184) [facility] [address] URINALYSIS W/ [id number] 12:50:00 Test Item Value Reference Range Comments COLOR (BEAKER) (test tgmz=200) Colorless CLARITY (BEAKER) (test gskg=518) Clear SPECIFIC GRAVITY UA (BEAKER) (test mqxx=914) 1.002 1.001-1.035 PH UA (BEAKER) (test djlr=381) 6.5 5.0-8.0 PROTEIN UA (BEAKER) (test nuwu=637) Negative Negative GLUCOSE UA (BEAKER) (test tkii=836) Negative Negative KETONES UA (BEAKER) (test wias=010) Negative Negative BILIRUBIN UA (BEAKER) (test ribq=933) Negative Negative BLOOD UA (BEAKER) (test vywd=225) Negative Negative NITRITE UA (BEAKER) (test haey=230) Negative Negative LEUKOCYTE ESTERASE UA (BEAKER) (test tudm=575) Negative Negative UROBILINOGEN UA (BEAKER) (test gztw=232) 0.2 mg/dL 0.2-1.0 RBC UA (BEAKER) (test fhvo=576) 0 /HPF WBC UA (BEAKER) (test pecm=516) < /HPF SOURCE(BEAKER) (test anye=7366) POCT-GLUCOSE [id number] 12:04:00 Test Item Value Reference Range Comments POC-GLUCOSE METER (BEAKER) 226 mg/dL 70-110 TESTED AT [facility] [address] [facility] (test omdf=4824) [facility] [address] POCT-GLUCOSE [id number] 08:00:00 Test Item Value Reference Range Comments POC-GLUCOSE METER (BEAKER) 300 mg/dL 70-110 TESTED AT [facility] [address] [facility] (test vrst=8759) [facility] [address] BASIC METABOLIC [id number] 06:50:00 Test Item Value Reference Range Comments SODIUM (BEAKER) (test 134 meq/L 136-145 dqla=491) POTASSIUM (BEAKER) (test 4.0 meq/L 3.5-5.1 sqtt=423) CHLORIDE (BEAKER) (test 98 meq/L 98-107 lpds=478) CO2 (BEAKER) (test 26 meq/L 22-29 crhb=817) BLOOD UREA NITROGEN 18 mg/dL 7-21 (BEAKER) (test ehgl=336) CREATININE (BEAKER) (test 1.25 mg/dL 0.57-1.25 nasa=197) GLUCOSE RANDOM (BEAKER) 349 mg/dL 70-105 (test mzyu=543) CALCIUM (BEAKER) (test 8.9 mg/dL 8.4-10.2 qmjd=748) EGFR (BEAKER) (test 61 mL/min/1.73 sq m ESTIMATED GFR IS NOT qdoe=5296) ACCURATE CREATININE CLEARANCE IN PREDICTING GLOMERULAR FILTRATION RATE. ESTIMATED GFR IS NOT APPLICABLE FOR DIALYSIS PATIENTS. CBC W/PLT COUNT & AUTO [id number] 06:01:00 Test Item Value Reference Range Comments WHITE BLOOD CELL COUNT (BEAKER) (test gndw=293) 6.6 K/ L 4.0-10.0 RED BLOOD CELL COUNT (BEAKER) (test bzjq=364) 4.79 M/ L 4.20-5.80 HEMOGLOBIN (BEAKER) (test aheq=309) 14.1 GM/DL 13.0-16.8 HEMATOCRIT (BEAKER) (test iktu=697) 42.0 % 40.0-50.0 MEAN CORPUSCULAR VOLUME (BEAKER) (test vjgt=526) 87.7 fL 82.0-98.0 MEAN CORPUSCULAR HEMOGLOBIN (BEAKER) (test 29.5 pg 27.0-33.0 iawq=851) MEAN CORPUSCULAR HEMOGLOBIN CONC (BEAKER) (test 33.6 GM/DL 32.0-36.0 gsfi=442) RED CELL DISTRIBUTION WIDTH (BEAKER) (test 14.9 % 10.3-14.2 xpwl=110) PLATELET COUNT (BEAKER) (test gioo=275) 157 K/CU MM 150-430 MEAN PLATELET VOLUME (BEAKER) (test mkkg=197) 9.0 fL 6.5-10.5 NUCLEATED RED BLOOD CELLS (BEAKER) (test 0 /100 WBC 0-0 clia=157) NEUTROPHILS RELATIVE PERCENT (BEAKER) (test 67 % yzga=997) LYMPHOCYTES RELATIVE PERCENT (BEAKER) (test 23 % uvko=634) MONOCYTES RELATIVE PERCENT (BEAKER) (test 7 % vsrx=898) EOSINOPHILS RELATIVE PERCENT (BEAKER) (test 3 % hagf=164) BASOPHILS RELATIVE PERCENT (BEAKER) (test 0 % ntlf=403) NEUTROPHILS ABSOLUTE COUNT (BEAKER) (test 4.44 K/ L 1.80-8.00 pckj=283) LYMPHOCYTES ABSOLUTE COUNT (BEAKER) (test 1.51 K/ L 1.48-4.50 higq=827) MONOCYTES ABSOLUTE COUNT (BEAKER) (test 0.43 K/ L 0.00-1.30 pmzy=165) EOSINOPHILS ABSOLUTE COUNT (BEAKER) (test 0.21 K/ L 0.00-0.50 xwjw=185) BASOPHILS ABSOLUTE COUNT (BEAKER) (test 0.03 K/ L 0.00-0.20 cdfl=761) 0.00POCT-GLUCOSE [id number] 21:25:00 Test Item Value Reference Range Comments POC-GLUCOSE METER (BEAKER) 279 mg/dL 70-110 TESTED AT [facility] [address] [facility] (test zhdi=0313) [facility] [address] HEMOGLOBIN [id number] 21:13:00 Test Item Value Reference Range Comments HEMOGLOBIN A1C (BEAKER) (test troz=534) 10.7 % 4.3-6.1 CBC W/PLT COUNT & AUTO [id number] 20:47:00 Test Item Value Reference Range Comments WHITE BLOOD CELL COUNT (BEAKER) (test zwac=029) 7.3 K/ L 4.0-10.0 RED BLOOD CELL COUNT (BEAKER) (test jlsa=201) 5.25 M/ L 4.20-5.80 HEMOGLOBIN (BEAKER) (test pzty=813) 15.7 GM/DL 13.0-16.8 HEMATOCRIT (BEAKER) (test xejh=457) 46.0 % 40.0-50.0 MEAN CORPUSCULAR VOLUME (BEAKER) (test fjsl=357) 87.7 fL 82.0-98.0 MEAN CORPUSCULAR HEMOGLOBIN (BEAKER) (test 30.0 pg 27.0-33.0 nwxg=216) MEAN CORPUSCULAR HEMOGLOBIN CONC (BEAKER) (test 34.2 GM/DL 32.0-36.0 jaql=458) RED CELL DISTRIBUTION WIDTH (BEAKER) (test 13.8 % 10.3-14.2 ddpm=314) PLATELET COUNT (BEAKER) (test qhtf=823) 166 K/CU MM 150-430 MEAN PLATELET VOLUME (BEAKER) (test isnm=778) 8.3 fL 6.5-10.5 NUCLEATED RED BLOOD CELLS (BEAKER) (test 0 /100 WBC 0-0 yscl=059) NEUTROPHILS RELATIVE PERCENT (BEAKER) (test 69 % rkjj=399) LYMPHOCYTES RELATIVE PERCENT (BEAKER) (test 22 % kjeo=742) MONOCYTES RELATIVE PERCENT (BEAKER) (test 5 % zxju=898) EOSINOPHILS RELATIVE PERCENT (BEAKER) (test 3 % ebrx=360) BASOPHILS RELATIVE PERCENT (BEAKER) (test 0 % pqlb=402) NEUTROPHILS ABSOLUTE COUNT (BEAKER) (test 5.04 K/ L 1.80-8.00 dqvv=479) LYMPHOCYTES ABSOLUTE COUNT (BEAKER) (test 1.63 K/ L 1.48-4.50 gnkk=626) MONOCYTES ABSOLUTE COUNT (BEAKER) (test 0.40 K/ L 0.00-1.30 chrp=685) EOSINOPHILS ABSOLUTE COUNT (BEAKER) (test 0.22 K/ L 0.00-0.50 rncu=426) BASOPHILS ABSOLUTE COUNT (BEAKER) (test 0.01 K/ L 0.00-0.20 itzx=781) 0.00POCT-GLUCOSE [id number] 18:31:00 Test Item Value Reference Range Comments POC-GLUCOSE METER (BEAKER) 205 mg/dL 70-110 TESTED AT [facility] [address] [facility] (test tiah=3643) [facility] [address]
--- OUTSIDE RECORDS SUMMARY | 2017-07-12 15:10 | XMS REPORT | Clinical Summary ---
:1965 Author Organization [facility] Address [address] [place] [address] Phone Care Team Providers Name Role Phone [...] Not on file Results Not on fileafter 07/11/2016
[2017-07-12] MEDS ORDERED: HYDROCODONE/APAP 10/325 TAB ONE (16:57)
[2017-07-12] MEDS ORDERED: ACETAMINOPHEN 325 MG TABLET ONE (17:17)
--- NOTE | 2017-07-12 17:42 | RAD REPORT ---
EXAM DESCRIPTION: US - Scrotum Testicles - 07/12/2017 5:00 pm CLINICAL HISTORY: Increased scrotal swelling. COMPARISON: 07/12/2017 FINDINGS: The right testicle 4.2 x 2.2 x 3.0 cm. No intratesticular masses or evidence of testicular torsion. The left testicle 4.4 x 3.2 x 1.8 cm. No intratesticular masses or evidence of testicular torsion. Matthews btle increase in blood flow to the left testicle may also be present. Since earlier examination same date there has been increase in the degree of scrotal wall thickening and swelling. The heterogenous hyperemic soft tissues surrounding the left testicle also appears mild ly worse. This may indicate epididymitis. No pathologic fluid collections. IMPRESSION: Interval increase in the degree of scrotal soft tissue swelling and hyperemic soft tissu e surrounding the left testicle since earlier exam same date. This may indicate underlying epididymit is. Subtle increase in blood flow to the left testicle may also be present, which may indicate early orchitis. There is no evidence of of testicular torsion or intratesticular mass.
[2017-07-12] MEDS ORDERED: Levofloxacin500mg IV 500 MG/100 ML BAG IV ONE (18:16)
[2017-07-12] MEDS ORDERED: CEFTRIAXONE/SWI 1gm 1 GM/10 ML SYR ONE (18:16)
[2017-07-12 19:01] LABS: Absolute Lymphocytes (CBC) 1.1 K/uL (0.7-4.9); Absolute Monocytes 0.7 K/uL (0.1-1.3); Basophils % 0.3 % (0-1.3); Eosinophils % 0.5 % (0-4.4); Hematocrit 39.9 % (39.6-49.0); MCH 30.2 pg (27.0-35.0); MCV 89.9 fL (80-100); MPV 11.2 fL (7.6-11.3); Monocytes % 6.6 % (3.3-12.3); RBC Red Blood Cell Count 4.44 M/uL (4.33-5.43)
[2017-07-12] MEDS ORDERED: NA CHLORIDE 0.9% 1,000 ML ONE ×2 (19:12→20:33)
[2017-07-12 19:14] LABS: Albumin 3.4 g/dL (3.2-5.5); Bilirubin Direct 0.2 mg/dL (0-0.2); Bilirubin Total 1.1 mg/dL (0.3-1.2); Protein, Total 6.9 g/dL (6.0-8.3)
[2017-07-12] MEDS ORDERED: INSULIN -REGULAR HUMAN 50 UNIT/0.5 ML ML ONE (20:33)
--- NOTE | 2017-07-12 20:45 | EDPHYS ---
Physician Documentation [facility] Name: Ramirez Chaudhari Age: 52 yrs Sex: Male : 1965 Arrival Date: 07/12/2017 Time: 15:13 Bed 7 Private MD: ED Physician Brodie Zheng HPI: 07/12 16:00 This 52 yrs old Male presents to ER via Wheelchair with complaints of pm1 Testicular Swelling. 16:00 The patient presents with scrotal pain, of the left side, swelling. Onset: The pm1 symptoms/episode began/occurred yesterday. Modifying factors: The symptoms are alleviated by nothing, the symptoms are aggravated by nothing, palpation. Associated signs and symptoms: Pertinent negatives: abdominal pain, constipation, diarrhea, fever, nausea, vomiting, Flank pain, chills. Severity of symptoms: in the emergency department the symptoms are actually worse. The patient has been recently seen at the [facility] Emergency Department, today, for similar complaints labs were performed, an ultrasound was performed, was given a prescription for antibiotics. Patient was seen here early this morning for the same complaint of left testicular swelling and pain. U/S was performed and patient was diagnosed with UTI. Patient returned today due to increased swelling. 16:00 patient reports swelling has doubled in size. pm1 Historical: - Allergies: 15:23 Ibuprofen; aj 15:23 metformin; aj - Home Meds: 15:23 atenolol 50 mg Oral tab 1 tab once daily [Active]; baclofen 10 mg Oral tab 1 tab twice aj a day [Active]; Colcrys 0.6 mg Oral tab 1 tab bid prn gout [Active]; hydrocodone-acetaminophen 10-325 mg Oral tab 1 tab three times a day [Active]; Levemir 36 units subcutaneous soln twice a day [Active]; levothyroxine 75 mcg tab 1 tab once daily [Active]; lisinopril 40 mg Oral tab 1 tab once daily [Active]; Novolog 22 units Sub-Q before meals [Active]; oxybutynin chloride 5 mg Oral tab 1 tab 3 times per day [Active]; pantoprazole 40 mg Oral grps 1 tab once daily [Active]; - PMHx: 15:23 ADD/ADHD; Diabetes - IDDM; GERD; Gout; High Cholesterol; Hydrocele Left Testicle; aj Hypertension; Hypothyroidism; Migraines; Paraplegia; Renal Disease; Spinal Stroke; - PSHx: 15:23 hydrocele; aj - Immunization history:: Adult Immunizations up to date. - Social history:: Smoking status: Patient/guardian denies using tobacco. ROS: 16:00 Constitutional: Negative for fever, chills, and weight loss, Eyes: Negative for injury, pm1 pain, redness, and discharge, ENT: Negative for injury, pain, and discharge, Neck: Negative for injury, pain, and swelling, Cardiovascular: Negative for chest pain, palpitations, and edema, Respiratory: Negative for shortness of breath, cough, wheezing, and pleuritic chest pain, Abdomen/GI: Negative for abdominal pain, nausea, vomiting, diarrhea, and constipation, Back: Negative for injury and pain. 16:00 MS/Extremity: Negative for injury and deformity, Skin: Negative for injury, rash, and discoloration. 16:00 Neuro: Negative for headache, weakness, numbness, tingling, and seizure. 16:00 : Positive for testicular pain swelling. Exam: 16:00 Constitutional: This is a well developed, well nourished patient who is awake, alert, pm1 and in no acute distress. Head/Face: Normocephalic, atraumatic. Neck: Trachea midline, no thyromegaly or masses palpated, and no cervical lymphadenopathy. Supple, full range of motion without nuchal rigidity, or vertebral point tenderness. No Meningismus. Chest/axilla: Normal chest wall appearance and motion. Nontender with no deformity. No lesions are appreciated. Cardiovascular: Regular rate and rhythm with a normal S1 and S2. No gallops, murmurs, or rubs. Normal PMI, no JVD. No pulse deficits. Respiratory: Lungs have equal breath sounds bilaterally, clear to auscultation and percussion. No rales, rhonchi or wheezes noted. No increased work of breathing, no retractions or nasal flaring. Abdomen/GI: Soft, non-tender, with normal bowel sounds. No distension or tympany. No guarding or rebound. No evidence of tenderness throughout. Back: No spinal tenderness. No costovertebral tenderness. Full range of motion. Skin: Warm, dry with normal turgor. Normal color with no rashes, no lesions, and no evidence of cellulitis. 16:00 : Male external genitalia: swelling, of the scrotum is noted, scrotal, that is moderate, tenderness, of the scrotum is noted, a myers is noted. 16:00 Neuro: Orientation: is normal, Mentation: is normal, Motor: Moves upper extremities. Patient is paraplegic. Vital Signs: 15:23 BP 132 / 82; Pulse 110; Resp 20; Temp 99.5; Pulse Ox 96% on R/A; Weight 106.59 kg; aj Height 5 ft. 8 in. (172.72 cm); Pain 10/10; 17:13 BP 157 / 102; Pulse 116; Resp 18; Temp 101.3(O); Pulse Ox 97% ; Pain 10/10; jl7 17:30 BP 164 / 90; Pulse 109; Resp 18; Pulse Ox 98% ; jl7 18:00 BP 140 / 74; Pulse 113; Resp 14; Pulse Ox 95% ; jl7 18:30 BP 145 / 98; Pulse 116; Resp 12; Temp 100.2; Pulse Ox 96% ; jl7 19:19 Temp 100.2(O); ak1 20:40 BP 102 / 78; Pulse 118; Resp 18; Temp 100(O); Pulse Ox 95% on R/A; lp1 21:53 BP 137 / 86 LA Sitting (auto/reg); Pulse 115 LA; Resp 20 S; Temp 98.7(O); Pulse Ox 95% cb2 on R/A; 15:23 Body Mass Index 35.73 (106.59 kg, 172.72 cm) aj MDM: 15:52 Patient medically screened. pm1 20:16 Data reviewed: vital signs. Data interpreted: Pulse oximetry: on room air is 96 %. pm1 Interpretation: normal. 20:16 Counseling: I had a detailed discussion with the patient and/or guardian regarding: the pm1 historical points, exam findings, and any diagnostic results supporting the discharge/admit diagnosis, lab results, radiology results, the need for further work-up and treatment in the hospital. 20:41 Physician consultation: Gallo Navarro MD was contacted at 20:41, regarding admission, pm1 patient's condition, and will see patient in ED. 21:50 Physician consultation: Kaitlin Doan MD was called at 21:51, was contacted at 21:51, pm1 regarding consult, patient's condition, and will see patient tomorrow. 07/12 17:25 Order name: Basic Metabolic Panel; Complete Time: 19:31 pm1 07/12 17:25 Order name: CBC with Diff; Complete Time: 19:06 pm1 07/12 17:25 Order name: Lactate; Complete Time: 19:24 pm1 07/12 17:25 Order name: LFT's; Complete Time: 19:31 pm1 07/12 17:25 Order name: Procalcitonin; Complete Time: 20:44 pm1 07/12 18:17 Order name: Ketone, Serum; Complete Time: 19:31 pm1 07/12 16:07 Order name: US Scrotum Testicles; Complete Time: 17:44 pm1 07/12 19:32 Order name: ABG pm1 07/12 17:25 Order name: Accucheck; Complete Time: 18:45 pm1 07/12 17:25 Order name: Cardiac monitoring; Complete Time: 19:08 pm1 07/12 17:25 Order name: IV Saline Lock - Large Bore; Complete Time: 18:45 pm1 07/12 17:25 Order name: Labs collected and sent; Complete Time: 18:45 pm1 07/12 17:25 Order name: O2 Per Protocol; Complete Time: 18:45 pm1 07/12 17:25 Order name: O2 Sat Monitoring; Complete Time: 18:45 pm1 07/12 17:25 Order name: Urine Dipstick-Ancillary (obtain specimen); Complete Time: 19:08 pm1 Administered Medications: 17:03 Drug: Exira 10 mg-325 mg 1 tabs Route: PO; aa5 18:30 Follow up: Response: No adverse reaction; Pain is unchanged, physician notified jl7 17:16 Drug: Tylenol 650 mg Route: PO; jl7 18:30 Follow up: Response: No adverse reaction; Temperature is decreased jl7 18:38 Drug: Rocephin 1 grams Route: IV; Rate: calculated rate; Site: right forearm; jl7 18:40 Follow up: IV Status: Completed infusion jl7 18:41 Drug: LevaQUIN 500 mg Volume: 100 ml; Route: IVPB; Infused Over: 60 mins; Site: right jl7 forearm; 19:45 Follow up: IV Status: Completed infusion lp1 19:19 Drug: NS 0.9% 1000 ml Route: IV; Rate: 1000 ml; Site: right forearm; ak1 20:55 Follow up: IV Status: Completed infusion; IV Intake: 1000ml lp1 20:45 Drug: NS 0.9% 1000 ml Route: IV; Rate: 100 ml/hr; Site: right forearm; lp1 22:46 Follow up: IV Status: Infusion continued upon admission lp1 20:45 Drug: Insulin Regular Human 10 units {Co-Signature: phong1 (Chani Gray RN).} Route: IVP; lp1 Site: right forearm; 21:45 Follow up: Response: Blood sugar is lowered lp1 Point of Care Testing: Blood Glucose: 18:46 Blood Glucose: 407 mg/dL; jl7 20:42 Blood Glucose: 408 mg/dL; lp1 21:53 Blood Glucose: 362 mg/dL; cb2 Ranges: Critical Glucose Levels:Adult <50 mg/dl or >400 mg/dl <40 mg/dl or >180 mg/dl Disposition: 07/13 07:30 Co-signature as Attending Physician, Brodie Zheng MD. rn Disposition: 07/12/17 20:44 Hospitalization ordered by Gallo Navarro for Inpatient Admission. Preliminary diagnosis are Epididymo-orchitis, Hyperglycemia, unspecified. - Bed requested for Telemetry/MedSurg (Inpatient). - Status is Inpatient Admission. lp1 - Condition is Stable. - Problem is new. - Symptoms have improved. UTI on Admission? Yes Signatures: Dispatcher [employer] EDTN Missy Arriola RN RN kl Myers, Amanda RN Brodie Kelly MD MD rn Calderon, Audri, RN RN aa5 Neris Hernandez RN RN lp1 Cahni Gray RN RN ak1 Herbert Murry, SNAGGER SNAGGER pm1 Emelia Nolan RN RN jl7 Chani Gray RN ak1 Corrections: (The following items were deleted from the chart) 05 18:26 17:44 Abdomen Pelvis W Con+CT.RAD.BRZ ordered. EDTN EDMS 20:44 20:44 Hospitalization Ordered by Gallo Navarro MD for Inpatient Admission. Preliminary pm1 diagnosis is Epididymo-orchitis. Bed requested for Telemetry/MedSurg (Inpatient). Status is Inpatient Admission. Condition is Stable. Problem is new. Symptoms have improved. UTI on Admission? Yes. pm1 22:14 20:44 07/12/2017 20:44 Hospitalization Ordered by Gallo Navarro MD for Inpatient kl Admission. Preliminary diagnosis is Epididymo-orchitis; Hyperglycemia, unspecified. Bed requested for Telemetry/MedSurg (Inpatient). Status is Inpatient Admission. Condition is Stable. Problem is new. Symptoms have improved. UTI on Admission? Yes. pm1 23:01 22:14 07/12/2017 20:44 Hospitalization Ordered by Gallo Navarro MD for Inpatient lp1 Admission. Preliminary diagnosis is Epididymo-orchitis; Hyperglycemia, unspecified. Bed requested for Telemetry/MedSurg (Inpatient). Status is Inpatient Admission. Condition is Stable. Problem is new. Symptoms have improved. UTI on Admission? Yes. kl
--- NOTE | 2017-07-12 20:45 | ER ---
Nurse's Notes [facility] Name: Ramirez Chaudhari Age: 52 yrs Sex: Male : 1965 Arrival Date: 07/12/2017 Time: 15:13 Bed 7 Private MD: Diagnosis: Epididymo-orchitis;Hyperglycemia, unspecified Presentation: 07/12 15:21 Presenting complaint: Patient states: Left testicular swelling that is worse than when aj patient was here in this ER this AM. Transition of care: patient was not received from another setting of care. Onset of symptoms was July 12, 2017. Initial Sepsis Screen: Does the patient meet any 2 criteria? No. Patient's initial sepsis screen is negative. Does the patient have a suspected source of infection? No. Patient's initial sepsis screen is negative. Care prior to arrival: None. 15:21 Method Of Arrival: Wheelchair 15:21 Acuity: NOHEMI 3 aj Triage Assessment: 15:23 General: Appears in no apparent distress. uncomfortable, Behavior is calm, cooperative, aj appropriate for age. Pain: Complains of pain in pelvis. Neuro: Level of Consciousness is awake, alert, obeys commands, Oriented to person, place, time, situation, Appropriate for age. Respiratory: Airway is patent Respiratory effort is even, unlabored, Respiratory pattern is regular, symmetrical. : Reports pain scrotum. Derm: Skin is intact, is healthy with good turgor, Skin is pink, warm \\T\\ dry. normal. Historical: - Allergies: 15:23 Ibuprofen; aj 15:23 metformin; aj - Home Meds: 15:23 atenolol 50 mg Oral tab 1 tab once daily [Active]; baclofen 10 mg Oral tab 1 tab twice aj a day [Active]; Colcrys 0.6 mg Oral tab 1 tab bid prn gout [Active]; hydrocodone-acetaminophen 10-325 mg Oral tab 1 tab three times a day [Active]; Levemir 36 units subcutaneous soln twice a day [Active]; levothyroxine 75 mcg tab 1 tab once daily [Active]; lisinopril 40 mg Oral tab 1 tab once daily [Active]; Novolog 22 units Sub-Q before meals [Active]; oxybutynin chloride 5 mg Oral tab 1 tab 3 times per day [Active]; pantoprazole 40 mg Oral grps 1 tab once daily [Active]; - PMHx: 15:23 ADD/ADHD; Diabetes - IDDM; GERD; Gout; High Cholesterol; Hydrocele Left Testicle; aj Hypertension; Hypothyroidism; Migraines; Paraplegia; Renal Disease; Spinal Stroke; - PSHx: 15:23 hydrocele; aj - Immunization history:: Adult Immunizations up to date. - Social history:: Smoking status: Patient/guardian denies using tobacco. Screenin:45 Abuse screen: Denies threats or abuse. Denies injuries from another. Nutritional jl7 screening: No deficits noted. Tuberculosis screening: No symptoms or risk factors identified. Fall Risk Ambulatory Aid- None/Bed Rest/Nurse Assist (0 pts). Gait- Normal/Bed Rest/Wheelchair (0 pts) Mental Status- Oriented to own ability (0 pts). Assessment: 16:45 General: Appears in no apparent distress. Behavior is calm, cooperative, appropriate jl7 for age. Pain: Complains of pain in left testicle Pain currently is 10 out of 10 on a pain scale. Neuro: Level of Consciousness is awake, alert, obeys commands, Oriented to person, place, time, situation. Cardiovascular: Patient's skin is warm and dry. Respiratory: Airway is patent Respiratory effort is even, unlabored, Respiratory pattern is regular, symmetrical. : Reports pain in left testicle. Derm: Skin is pink, warm \\T\\ dry. Musculoskeletal: pt in wheelchair. 17:45 Reassessment: No changes from previously documented assessment. Patient and/or family jl7 updated on plan of care and expected duration. Pain level reassessed. Patient is alert, oriented x 3, equal unlabored respirations, skin warm/dry/pink. 18:30 Reassessment: pt laying with eyes closed, respirations even and unlabored, no signs of jl7 distress noted. Pt reports no change in pain level, pt states "Sleeping is the only way not to be in pain." Pain rated 10/10. Pt's states "He has a script for hydrocodone but they don't do nothing for his pain.". 20:00 Reassessment: Patient appears in no apparent distress at this time. Patient is alert, lp1 oriented x 3, equal unlabored respirations, skin warm/dry/pink. Patient aware of need for admit, at bedside; Pain to scrotum on movement. 21:00 Reassessment: Patient appears in no apparent distress at this time. No changes from lp1 previously documented assessment. Patient and/or family updated on plan of care and expected duration. Pain level reassessed. 22:00 General: Appears in no apparent distress. Behavior is appropriate for age. Neuro: Level lp1 of Consciousness is awake, alert, obeys commands, Oriented to person, place, time, situation, Hx of paraglegia. Cardiovascular: Patient's skin is warm and dry. Respiratory: Respiratory effort is even, unlabored. Derm: Skin is pink, warm \\T\\ dry. Vital Signs: 15:23 BP 132 / 82; Pulse 110; Resp 20; Temp 99.5; Pulse Ox 96% on R/A; Weight 106.59 kg; aj Height 5 ft. 8 in. (172.72 cm); Pain 10/10; 17:13 BP 157 / 102; Pulse 116; Resp 18; Temp 101.3(O); Pulse Ox 97% ; Pain 10/10; jl7 17:30 BP 164 / 90; Pulse 109; Resp 18; Pulse Ox 98% ; jl7 18:00 BP 140 / 74; Pulse 113; Resp 14; Pulse Ox 95% ; jl7 18:30 BP 145 / 98; Pulse 116; Resp 12; Temp 100.2; Pulse Ox 96% ; jl7 19:19 Temp 100.2(O); ak1 20:40 BP 102 / 78; Pulse 118; Resp 18; Temp 100(O); Pulse Ox 95% on R/A; lp1 21:53 BP 137 / 86 LA Sitting (auto/reg); Pulse 115 LA; Resp 20 S; Temp 98.7(O); Pulse Ox 95% cb2 on R/A; 15:23 Body Mass Index 35.73 (106.59 kg, 172.72 cm) aj ED Course: 15:13 Patient arrived in ED. sb2 15:22 Triage completed. aj 15:23 Arm band placed on right wrist. Patient placed in waiting room, Patient notified of aj wait time. 15:49 Анна Murry NP is PHCP. pm1 15:49 Brodie Zheng MD is Attending Physician. pm1 15:58 Emelia Nolan RN is Primary Nurse. jl7 16:37 Ultrasound completed. Patient tolerated well. Notified VEGETABLE CUTTER/PA анна. ap2 16:45 Patient has correct armband on for positive identification. Bed in low position. Call [facility] light in reach. Side rails up X 1. Pulse ox on. NIBP on. 18:30 Initial lab(s) drawn, by me, sent to lab. Inserted saline lock: 20 gauge in right jl7 forearm, using aseptic technique. Blood collected. 19:21 Report given to NORBERTO Wilde. jl7 20:42 Gallo Navarro MD is Hospitalizing Provider. pm1 22:42 No provider procedures requiring assistance completed. Patient admitted, IV remains in lp1 place. Administered Medications: 17:03 Drug: [place] 10 mg-325 mg 1 tabs Route: PO; aa5 18:30 Follow up: Response: No adverse reaction; Pain is unchanged, physician notified jl7 17:16 Drug: Tylenol 650 mg Route: PO; jl7 18:30 Follow up: Response: No adverse reaction; Temperature is decreased jl7 18:38 Drug: Rocephin 1 grams Route: IV; Rate: calculated rate; Site: right forearm; jl7 18:40 Follow up: IV Status: Completed infusion jl7 18:41 Drug: LevaQUIN 500 mg Volume: 100 ml; Route: IVPB; Infused Over: 60 mins; Site: right jl7 forearm; 19:45 Follow up: IV Status: Completed infusion lp1 19:19 Drug: NS 0.9% 1000 ml Route: IV; Rate: 1000 ml; Site: right forearm; ak1 20:55 Follow up: IV Status: Completed infusion; IV Intake: 1000ml lp1 20:45 Drug: NS 0.9% 1000 ml Route: IV; Rate: 100 ml/hr; Site: right forearm; lp1 22:46 Follow up: IV Status: Infusion continued upon admission lp1 20:45 Drug: Insulin Regular Human 10 units {Co-Signature: ak1 (Chani Gray RN).} Route: IVP; lp1 Site: right forearm; 21:45 Follow up: Response: Blood sugar is lowered lp1 Point of Care Testing: Blood Glucose: 18:46 Blood Glucose: 407 mg/dL; jl7 20:42 Blood Glucose: 408 mg/dL; lp1 21:53 Blood Glucose: 362 mg/dL; cb2 Ranges: Intake: 20:55 IV: 1000ml; Total: 1000ml. lp1 Outcome: 20:44 Decision to Hospitalize by Provider. pm1 22:42 Condition: stable lp1 22:42 Instructed on the need for admit. 22:53 Admitted to Med/surg accompanied by tech, via stretcher, room 204, with chart, Report lp1 called to Bina Lowery RN 23:01 Patient left the ED. lp1 Signatures: Dispatcher [employer] Latricia العراقي, RN RN Sepideh Mendez, RN RN aa5 Neris Hernandez, RN RN lp1 Isaac, Chani RN RN ak1 Анна Murry, VEGETABLE CUTTER VEGETABLE CUTTER pm1 Emelia Nolan, RN RN jl7 Shoaib Linn cb2 Ashley Hernandez Sheri sb2 Chani Gray RN ak1 Corrections: (The following items were deleted from the chart) 17:01 17:01 In radiology for Scrotum Testicles+US.RAD.BRZ. HIRA ap2
--- NOTE | 2017-07-12 22:03 | P.HP ---
Certification for Inpatient Patient admitted to: Inpatient With expected LOS: >2 Midnights Practitioner: I am a practitioner with admitting privileges, knowledge of patient current condition, hospital course, and medical plan of care. Services: Services provided to patient in accordance with Admission requirements found in Title 42 Section 412.3 of the Code of Federal Regulations Patient History Date of Service: 07/12/17 Reason for admission: sepsis History of Present Illness: Mr Chaudhari is a 52 years old male with history of IDDM, paraplegia due to spinal cord injury, requiring self-catheterization. Last year he was admitted a couple of times due to testicular abscess requiring I&D, done by Dr Doan. His , states that he started yesterday to be more lethargic and sleepy than usual, had fever and also noticed decrease in urine output. Also his testicles got swollen again and become painful. This morning came to ER, and was diagnosed with UTI. He was discharged home on oral antibiotics. However, during today his testicular swelling got worse as well his pain. At arrival to ED he was obtunded , Temp 99.5 F. Lab work shows normal WBC count with elevated procalcitonin. He had a testicular US consistent with epididymitis and early orchitis. Allergies metformin Adverse Reaction (Severe, Verified 11/23/16 22:05) Anaphylaxis ibuprofen Adverse Reaction (Verified 11/23/16 22:05) seecom adler peppers Allergy (Intermediate, Uncoded 11/23/16 22:05) Nausea/Vomiting stitches Adverse Reaction (Mild, Uncoded 11/23/16 22:05) Rash Home Medications: Atenolol [Tenormin*] 50 mg PO DAILY 02/05/15 Insulin Aspart [Novolog] 22 units SQ TID 02/05/15 Insulin Detemir [Levemir] 36 unit SQ BID 02/05/15 Lisinopril [Prinivil*] 40 mg PO DAILY 02/05/15 Pantoprazole Sodium [Protonix] 40 mg PO BEDTIME 02/05/15 Colchicine [Colcrys] 1 tab PO BID PRN 07/25/16 Levothyroxine [Synthroid*] 75 mcg PO [id number] 07/25/16 Oxybutynin Chloride [Ditropan*] 5 mg PO TID 07/25/16 Baclofen [Lioresal*] 1 tab PO BID 10/12/16 Hydrocodone 10/APAP 325 [[place] 10/325*] 1 tab PO TID PRN 10/12/16 Docusate [Colace Cap] 100 mg PO BID #60 cap 11/27/16 Fluconazole [Diflucan] 100 mg PO DAILY #6 tablet 11/27/16 Levofloxacin [Levaquin] 500 mg PO DAILY #14 tab 11/27/16 - Past Medical/Surgical History Diabetic: Yes -: gout -: htn -: dm -: hypercholesterol -: spinal cord injury -: self cath -: hypothyroidism -: paraplegic -: GERD -: spinal surgery -: 2 hydroceles - Family History Mother -: Hypertension, Diabetes, Stroke - Social History Alcohol use: No CD- Drugs: No Caffeine use: Yes Place of Residence: Home Review of Systems 10-point ROS is otherwise unremarkable Physical Examination - Physical Exam General: Alert, In no apparent distress HEENT: Atraumatic, PERRLA, Mucous membr. moist/pink, EOMI, Sclerae nonicteric Neck: Supple, 2+ carotid pulse no bruit, No LAD, Without JVD or thyroid abnormality Respiratory: Clear to auscultation bilaterally, Normal air movement Cardiovascular: Regular rate/rhythm, Normal S1 S2 Gastrointestinal: Normal bowel sounds, No tenderness Musculoskeletal: No tenderness Integumentary: No rashes Neurological: Normal speech, Normal tone, Normal affect, Other (paraplegic) Lymphatics: No axilla or inguinal lymphadenopathy - Studies Laboratory Data (last 24 hrs) 07/12/17 18:30: WBC 10.9, Hgb 13.4 L, Hct 39.9, Plt Count 126 L 07/12/17 18:30: Sodium 133 L, Potassium 4.0, BUN 22 H, Creatinine 1.63 H, Glucose 435 H*, Total Bilirubin 1.1, AST 12, ALT 22, Alkaline Phosphatase 72 Male Exam - Male Exam Testicular exam: Hydrocele, Other (testicular swelling bilateral, tender to palpation.) Assessment and Plan - Problems (Diagnosis) (1) Orchitis and epididymitis Current Visit: Yes Status: Acute (2) CKD (chronic kidney disease), stage III Onset Date: 04/04/14 Current Visit: No Status: Acute (3) Diabetes mellitus type II, uncontrolled Onset Date: 10/16/14 Current Visit: No Status: Acute Qualifiers: Diabetes mellitus jail insulin use: with laborer marine terminal use Diabetes mellitus complication status: with unspecified complications Qualified Code(s) : E11.8 - Type 2 diabetes mellitus with unspecified complications; E11.65 - Type 2 diabetes mellitus with hyperglycemia; Z79.4 - terminal manager (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 (4) UTI (urinary tract infection) Onset Date: 10/13/16 Current Visit: No Status: Acute Qualifiers: Urinary tract infection type: site unspecified Hematuria presence: without hematuria Qualified Code(s): N39.0 - Urinary tract infection, site not specified (5) Hydrocele Current Visit: No Status: Chronic Qualifiers: Hydrocele type: unspecified Qualified Code(s): N43.3 - Hydrocele, unspecified - Plan Mr Chaudhari will be admitted to the hospital due to sepsis, secondary to epididymitis and orchitis. Since he has history of previous E.Coli with ESBL, will start empiric treatment with Meropenem. Consult Dr Doan. Keep NPO after MN for potential surgical procedure. - Advance Directives Does patient have a Living Will: No Does patient have a Durable POA for Healthcare: No - Code Status/Comfort Care Code Status Assessed: Yes Code Status: Full Code
[2017-07-12 23:15] VITALS: BMI 35.6
[2017-07-12] MEDS ORDERED: ONDANSETRON 4 MG/2 ML VIAL IV PRN (23:18)
[2017-07-12] MEDS ORDERED: Meropenem 1 GM/100 ML BAG ONE (23:52)
[2017-07-13] MEDS ORDERED: MORPHINE 2 MG/ML SYR IV PRN (00:15)
[2017-07-13] MEDS ORDERED: Morphine 2 MG/2 ML SYR ONE (00:46)
[2017-07-13] MEDS ORDERED: Meropenem 1000 MG/VIAL IV SCH (01:00)
[2017-07-13] MEDS: NA CHLORIDE 0.9% 1,000 ML IV SCH ×3 (01:06→20:56)
[2017-07-13 05:30] LABS: Absolute Neutrophil 8.4 K/uL (1.8-8.0); Basophils % 0.4 % (0-1.3); Eosinophils % 0.6 % (0-4.4); Hematocrit 38.9 % (39.6-49.0); Lymphocytes % 9.9 % (15.3-44.8); MPV 11.2 fL (7.6-11.3); Monocytes % 9.2 % (3.3-12.3); RBC Red Blood Cell Count 4.32 M/uL (4.33-5.43)
[2017-07-13 05:47] LABS: Magnesium 1.7 mg/dL (1.8-2.5); Potassium 4.1 mEq/L (3.6-5.0)
[2017-07-13] MEDS ORDERED: MAGNESIUM SULFATE 1 gm IVPB 1 GM/100 ML BAG IV ONE (06:04)
[2017-07-13] MEDS: INSULIN -REGULAR HUMAN 50 UNIT/0.5 ML ML SQ SCH ×4 (08:42→21:04)
[2017-07-13] MEDS: Morphine 2 MG/2 ML SYR IV PRN ×3 (08:43→20:56)
[2017-07-13] MEDS: Meropenem 1,000 MG in NA CHLORIDE 0.9% 100 ML IV SCH ×2 (09:47→16:41)
[2017-07-13] MEDS: OXYBUTYNIN CHLORIDE 5 MG TAB PO SCH ×2 (13:53→20:56)
--- NOTE | 2017-07-13 17:17 | CON ---
History Of Present Illness: A 52-year-old gentleman, insulin-dependent diabetes mellitus, paraplegia due to spinal cord injury, has required catheterization. Last year had scrotal exploration, [place] drain placement. No significant abscesses were found about the case. He uses Valera catheter. Ther e is a chronic infection and epididymitis. In case of his diabetes, his glucose is out of control. He is very susceptible to epididymo-orchitis. He has another one on the left side. Scrotal ultrasou nd confirmed increased blood flow to the left epididymo-orchitis testicle area consistent with epidid ymo-orchitis. He is very tender on that side, came to the ER twice yesterday and was admitted the se cond time. T-max was 99.5. Allergies: MORPHINE, IBUPROFEN, WILEY PEPPERS, AND SOME TYPE OF PEACHES. Home Medications: Atenolol, insulin, lisinopril, Protonix, colchicine, levothyroxine, oxybutynin, ba clofen, hydrocodone, docusate, Diflucan, and Levaquin. Past Medical History: Diabetes, gout, hypertension, hypercholesterol, spinal cord injuries, self cat h, hypothyroidism, paraplegic, GERD, spinal surgery, and hydrocelectomies. Family History: Noncontributory. Social History: No smoking, no drinking. Lives at home with his . Review of Systems: Ten-point review of systems is otherwise unremarkable. Physical Examination: VITAL SIGN: Shows home temperature 98.8, heart rate 113, respiratory rate 18, blood pressure 142/77, and saturation 99%. HEENT: Atraumatic, normocephalic. Chest: Clear. Abdomen: Soft, nontender. : Chronic Valera catheter, very tender left side mostly. Says he is always tender on the right brandon e, but most of his tenderness is on the left side. Extremities: Normal range of motion. Laboratory Data: white count is normal at 10.5, H and H 13 and 38.9, platelet count 113. Chemistry; sodium 136, potassium 4.1, chloride 106, carbon dioxide 21. BUN 18 and creatinine 1.37. GFR 53. G lucose is 342. Calcium 8.4 and magnesium 1.7. He has blood cultures pending and urine cultures pend ing. Assessment: Left epididymo-orchitis. Plan: To continue IV meropenem for patient and await final cultures. Scrotal elevation and symptoma tic treatment. Ice pack. PB/MODL Voice ID: [id number] Report ID: [id number]
--- NOTE | 2017-07-13 17:24 | P.PN ---
Subjective Date of Service: 07/13/17 Primary Care Provider: Dr Powers Chief Complaint: sepsis Pt seen and examine at bedside with RN. Case DW with Urology. Doing well overall. Complains of having pain in the scrotal Area. Continue with IV abx and fluids. Advance diet no plan for surgery Review of Systems General: As per HPI Physical Examination - Vital Signs Temperature: 98.8 F Blood Pressure: 142/77 Pulse: 113 Respirations: 16 Pulse Ox (%): 99 - Physical Exam General: Alert, In no apparent distress, Oriented x3 HEENT: Atraumatic Neck: Supple Respiratory: Clear to auscultation bilaterally, Normal air movement Cardiovascular: Normal pulses, Regular rate/rhythm, Normal S1 S2 Gastrointestinal: Normal bowel sounds, Soft and benign, Non-distended Musculoskeletal: No clubbing Integumentary: Tenderness/swelling (Scrotal area. Right more then left ), Warmth Neurological: Normal speech, Normal strength at 5/5 x4 extr, Normal tone Urinary: Valera catheter External genitalia: Edema, Tenderness - Studies Laboratory Data (last 24 hrs) 07/12/17 18:30: WBC 10.9, Hgb 13.4 L, Hct 39.9, Plt Count 126 L 07/12/17 18:30: Sodium 133 L, Potassium 4.0, BUN 22 H, Creatinine 1.63 H, Glucose 435 H*, Total Bilirubin 1.1, AST 12, ALT 22, Alkaline Phosphatase 72 Assessment & Plan - Problems (Diagnosis) (1) Orchitis and epididymitis Current Visit: Yes Status: Acute Plan: Most Likely secondary to Repeated UTI 2.2 to Indwelling catheter -Urology Consulted. -IV antibiotics, IV fluids and Valera -Elevate scrotal area -No surgical procedure planned. (2) Catheter-associated urinary tract infection Current Visit: Yes Status: Acute Plan: See # 1 -UA in the past + for ESBL -On IV meropenum. Will continue Qualifiers: Indwelling urinary catheter type: indwelling urethral catheter Encounter type: subsequent encounter Qualified Code(s): T83.511D - Infection and inflammatory reaction due to indwelling urethral catheter, subsequent encounter ; N39.0 - Urinary tract infection, site not specified (3) CKD (chronic kidney disease), stage III Onset Date: 04/04/14 Current Visit: No Status: Chronic (4) Diabetes mellitus type II, uncontrolled Onset Date: 10/16/14 Current Visit: No Status: Chronic Qualifiers: Diabetes mellitus nursing home insulin use: with intermediate school teacher use Diabetes mellitus complication status: with unspecified complications Qualified Code(s) : E11.8 - Type 2 diabetes mellitus with unspecified complications; E11.65 - Type 2 diabetes mellitus with hyperglycemia; Z79.4 - middle or intermediate school principal (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 (5) Hyperlipidemia Onset Date: 10/16/14 Current Visit: No Status: Chronic Qualifiers: Hyperlipidemia type: mixed hyperlipidemia Qualified Code(s): E78.2 - Mixed hyperlipidemia (6) Paraplegia Onset Date: 04/04/14 Current Visit: No Status: Chronic (7) Gastroesophageal reflux disease Onset Date: 10/16/14 Current Visit: No Status: Chronic Qualifiers: Esophagitis presence: esophagitis presence not specified Qualified Code(s) : K21.9 - Gastro-esophageal reflux disease without esophagitis (8) History of spinal cord injury Current Visit: No Status: Chronic (9) Hypertension Onset Date: 04/04/14 Current Visit: No Status: Chronic Qualifiers: Hypertension type: essential hypertension Qualified Code(s): I10 - Essential (primary) hypertension Discharge Plan: Home Plan to discharge in: 24 Hours - Code Status/Comfort Care Code Status Assessed: Yes Critical Care: No
[2017-07-13] MEDS: BACLOFEN 10 MG TAB PO SCH (20:56)
[2017-07-13] MEDS: PANTOPRAZOLE 40MG TABLET PO SCH (20:56)
[2017-07-13] MEDS: DOCUSATE NA 100 MG CAP PO SCH (20:56)
[2017-07-14] MEDS: Meropenem 1,000 MG in NA CHLORIDE 0.9% 100 ML IV SCH ×2 (00:16→08:22)
[2017-07-14] MEDS: NA CHLORIDE 0.9% 1,000 ML IV SCH ×2 (05:29→14:41)
[2017-07-14] MEDS: LEVOTHYROXINE SOD 0.075 MG TAB PO SCH (05:29)
[2017-07-14] MEDS: HYDROCODONE/APAP 10/325 TAB PO PRN ×2 (05:35→21:26)
[2017-07-14] MEDS: OXYBUTYNIN CHLORIDE 5 MG TAB PO SCH ×3 (08:22→21:26)
[2017-07-14] MEDS: BACLOFEN 10 MG TAB PO SCH ×2 (08:22→21:26)
[2017-07-14] MEDS: ATENOLOL 50 MG TAB PO SCH (08:22)
[2017-07-14] MEDS: INSULIN -REGULAR HUMAN 50 UNIT/0.5 ML ML SQ SCH ×4 (08:22→21:26)
[2017-07-14] MEDS: DOCUSATE NA 100 MG CAP PO SCH ×2 (08:22→21:25)
[2017-07-14] MEDS: Morphine 2 MG/2 ML SYR IV PRN ×2 (08:23→14:17)
--- NOTE | 2017-07-14 14:41 | P.PN ---
Subjective Date of Service: 07/14/17 Primary Care Provider: Dr Powers Chief Complaint: sepsis Pt seen and examine at bedside with RN. Case DW with Urology. Doing well overall. Complains of having pain in the scrotal Area. Continue with IV abx and fluids. Advance diet no plan for surgery Review of Systems 10-point ROS is otherwise unremarkable Physical Examination - Vital Signs Temperature: 98.3 F Blood Pressure: 122/66 Pulse: 97 Respirations: 17 Pulse Ox (%): 98 - Physical Exam General: Alert, In no apparent distress HEENT: Atraumatic, PERRLA, EOMI Neck: Supple, JVD not distended Respiratory: Clear to auscultation bilaterally, Normal air movement Cardiovascular: Regular rate/rhythm, Normal S1 S2 Gastrointestinal: Normal bowel sounds, No tenderness Musculoskeletal: No tenderness Integumentary: No rashes, Tenderness/swelling, Erythema Neurological: Normal speech, Normal tone, Normal affect Lymphatics: No axilla or inguinal lymphadenopathy External genitalia: Tenderness - Studies Medications List Reviewed: Yes Assessment & Plan - Problems (Diagnosis) (1) Orchitis and epididymitis Onset Date: 07/13/17 Current Visit: Yes Status: Acute Plan: Most Likely secondary to Repeated UTI 2.2 to Indwelling catheter -Urology Consulted. Reccs appreciated -IV antibiotics, IV fluids and Valera -Elevate scrotal area -No surgical procedure planned. (2) Catheter-associated urinary tract infection Current Visit: Yes Status: Acute Plan: See # 1 -UA in the past + for ESBL. Uculture now + for pseudomonus -Now on IV Cipro. Will continue Qualifiers: Indwelling urinary catheter type: indwelling urethral catheter Encounter type: subsequent encounter Qualified Code(s): T83.511D - Infection and inflammatory reaction due to indwelling urethral catheter, subsequent encounter ; N39.0 - Urinary tract infection, site not specified (3) CKD (chronic kidney disease), stage III Onset Date: 04/04/14 Current Visit: No Status: Chronic (4) Diabetes mellitus type II, uncontrolled Onset Date: 10/16/14 Current Visit: No Status: Chronic Qualifiers: Diabetes mellitus alf insulin use: with alf use Diabetes mellitus complication status: with unspecified complications Qualified Code(s) : E11.8 - Type 2 diabetes mellitus with unspecified complications; E11.65 - Type 2 diabetes mellitus with hyperglycemia; Z79.4 - jail (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 (5) Hyperlipidemia Onset Date: 10/16/14 Current Visit: No Status: Chronic Qualifiers: Hyperlipidemia type: mixed hyperlipidemia Qualified Code(s): E78.2 - Mixed hyperlipidemia (6) Paraplegia Onset Date: 04/04/14 Current Visit: No Status: Chronic (7) Gastroesophageal reflux disease Onset Date: 10/16/14 Current Visit: No Status: Chronic Qualifiers: Esophagitis presence: esophagitis presence not specified Qualified Code(s) : K21.9 - Gastro-esophageal reflux disease without esophagitis (8) History of spinal cord injury Current Visit: No Status: Chronic (9) Hypertension Onset Date: 04/04/14 Current Visit: No Status: Chronic Qualifiers: Hypertension type: essential hypertension Qualified Code(s): I10 - Essential (primary) hypertension
--- NOTE | 2017-07-14 16:29 | PN ---
Subjective: The patient still continues to have scrotal pain. He tried ice pack last night, however , it made it worse he said, so he stopped. Objective: Vital Signs: Temperature 98.4, pulse 99, respirations 18, BP 135/63, 95% sats. Laboratory Data: No new labs today. In terms of microbiology, catheterized urine showed less than 1 0,000 cfu/mL. Blood cultures were canceled. Assessment: Left epididymo-orchitis with swelling. Plan: Plan is to continue meropenem until the patient is better. The patient will go home on p.o. a ntibiotics. Continue CIC at home. NEGRITO/SNOW Voice ID: [id number] Report ID: [id number]
[2017-07-14] MEDS: ACETAMINOPHEN 500 MG TAB PO PRN (17:09)
[2017-07-14] MEDS: PANTOPRAZOLE 40MG TABLET PO SCH (21:25)
[2017-07-14] MEDS: CIPROFLOXACIN 400mg IV 400 MG/200 ML BAG IV SCH (21:26)
[2017-07-15] MEDS: NA CHLORIDE 0.9% 1,000 ML IV SCH ×3 (00:27→21:18)
[2017-07-15 01:10] VITALS: O2SAT 96
[2017-07-15] MEDS: Morphine 2 MG/2 ML SYR IV PRN ×2 (04:19→09:05)
[2017-07-15] MEDS: LEVOTHYROXINE SOD 0.075 MG TAB PO SCH (05:51)
[2017-07-15] MEDS: COLCHICINE 0.6 MG TAB PO PRN (05:54)
[2017-07-15] MEDS: ATENOLOL 50 MG TAB PO SCH (09:04)
[2017-07-15] MEDS: OXYBUTYNIN CHLORIDE 5 MG TAB PO SCH ×3 (09:04→21:30)
[2017-07-15] MEDS: DOCUSATE NA 100 MG CAP PO SCH ×2 (09:04→21:31)
[2017-07-15] MEDS: CIPROFLOXACIN 400mg IV 400 MG/200 ML BAG IV SCH ×2 (09:04→21:33)
[2017-07-15] MEDS: INSULIN -REGULAR HUMAN 50 UNIT/0.5 ML ML SQ SCH ×4 (09:04→21:31)
[2017-07-15] MEDS: BACLOFEN 10 MG TAB PO SCH ×2 (09:04→21:30)
[2017-07-15 11:37] LABS: Absolute Lymphocytes (CBC) 0.8 K/uL (0.7-4.9); Absolute Monocytes 0.7 K/uL (0.1-1.3); Absolute Neutrophil 6.9 K/uL (1.8-8.0); Basophils % 0.3 % (0-1.3); Eosinophils % 0.9 % (0-4.4); Hematocrit 35.8 % (39.6-49.0); Lymphocytes % 9.3 % (15.3-44.8); MCH 29.8 pg (27.0-35.0); MCV 88.9 fL (80-100); MPV 10.3 fL (7.6-11.3); Monocytes % 8.1 % (3.3-12.3); RBC Red Blood Cell Count 4.02 M/uL (4.33-5.43)
[2017-07-15 11:40] LABS: Albumin 2.8 g/dL (3.2-5.5); Bilirubin Total 1.2 mg/dL (0.3-1.2); Protein, Total 6.4 g/dL (6.0-8.3)
[2017-07-15] MEDS: HYDROCODONE/APAP 10/325 TAB PO PRN ×3 (12:20→21:52)
--- NOTE | 2017-07-15 12:59 | P.PN ---
Subjective Date of Service: 07/15/17 Primary Care Provider: Dr Powers Chief Complaint: sepsis Pt seen and examine at bedside with RN. Case DW with Urology. Doing well overall. Pt was sleeping comforatably with his thigh on the scrotal area when I entered the room. Pt was notified of discharge planning possible today. Pt started then complaining about pain to touch and needing more IV pain medication Particularly Morphine. However pt was touching his scrotal area without any pain. Pt and educated extensively on the disease process and all there acute needs being met and need to switch to PO pain meds as the pain is control. At that time pt and demonstrated understanding. pt will be DC today. Review of Systems General: As per HPI Physical Examination - Vital Signs Temperature: 99.7 F Blood Pressure: 179/96 Pulse: 103 Respirations: 16 Pulse Ox (%): 95 - Physical Exam General: Alert, In no apparent distress, Oriented x3 HEENT: Atraumatic, PERRLA, EOMI Neck: Supple, JVD not distended Respiratory: Clear to auscultation bilaterally, Normal air movement Cardiovascular: Regular rate/rhythm, Normal S1 S2 Gastrointestinal: Normal bowel sounds, Soft and benign, Non-distended, No tenderness Musculoskeletal: No tenderness Integumentary: No rashes Neurological: Normal speech, Normal tone, Normal affect Lymphatics: No axilla or inguinal lymphadenopathy External genitalia: Other (Right scrotum swelling improved, without any erythema or drainage at this time. Left Scrotum with no swelling, erythem or drainage. Pt does complains of pain with touch. ) - Studies Medications List Reviewed: Yes Assessment & Plan - Problems (Diagnosis) (1) Sepsis Current Visit: Yes Status: Resolved Plan: Sepsis most likely 2.2 to UTI due to frequent catherization. Resolved -Urine culture + for pseudomonos sensitive to ciprofloxacin -Changed to PO now. Qualifiers: Sepsis type: Pseudomonas Qualified Code(s): A41.52 - Sepsis due to Pseudomonas (2) Orchitis and epididymitis Onset Date: 07/13/17 Current Visit: Yes Status: Acute Plan: Most Likely secondary to UTI 2.2 to frequent Indwelling catheter -Urology Consulted. Reccs appreciated -urine Culture+ for Pseudo sensitive to cipro. Switched to IV yesterday. Had marked improvement. Now switched to PO -Elevate scrotal area and ICE -No surgical procedure planned. -Swelling is improved markedly. No erythema noted. (3) Catheter-associated urinary tract infection Current Visit: Yes Status: Acute Plan: See # 1 -Uculture now + for pseudomonus -Now on PO Cipro. Improved a lot. -DC myers Qualifiers: Indwelling urinary catheter type: indwelling urethral catheter Encounter type: subsequent encounter Qualified Code(s): T83.511D - Infection and inflammatory reaction due to indwelling urethral catheter, subsequent encounter ; N39.0 - Urinary tract infection, site not specified (4) CKD (chronic kidney disease), stage III Onset Date: 04/04/14 Current Visit: No Status: Chronic (5) Diabetes mellitus type II, uncontrolled Onset Date: 10/16/14 Current Visit: No Status: Chronic Qualifiers: Diabetes mellitus correction insulin use: with correction use Diabetes mellitus complication status: with unspecified complications Qualified Code(s) : E11.8 - Type 2 diabetes mellitus with unspecified complications; E11.65 - Type 2 diabetes mellitus with hyperglycemia; Z79.4 - skilled nursing (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 (6) Hyperlipidemia Onset Date: 10/16/14 Current Visit: No Status: Chronic Qualifiers: Hyperlipidemia type: mixed hyperlipidemia Qualified Code(s): E78.2 - Mixed hyperlipidemia (7) Paraplegia Onset Date: 04/04/14 Current Visit: No Status: Chronic (8) Gastroesophageal reflux disease Onset Date: 10/16/14 Current Visit: No Status: Chronic Qualifiers: Esophagitis presence: esophagitis presence not specified Qualified Code(s) : K21.9 - Gastro-esophageal reflux disease without esophagitis (9) History of spinal cord injury Current Visit: No Status: Chronic (10) Hypertension Onset Date: 04/04/14 Current Visit: No Status: Chronic Qualifiers: Hypertension type: essential hypertension Qualified Code(s): I10 - Essential (primary) hypertension Discharge Plan: Home Plan to discharge in: 24 Hours - Code Status/Comfort Care Code Status Assessed: Yes Critical Care: No
--- NOTE | 2017-07-15 14:32 | P.DS ---
Admission Date: 07/12/17 Discharge Date: 07/15/17 Primary Care Provider: Dr Powers Disposition: ROUTINE DISCHARGE Discharge Condition: GOOD Reason for Admission: sepsis Consultations: Urology - Problems (1) Sepsis Current Visit: Yes Status: Resolved Qualifiers: Sepsis type: Pseudomonas Qualified Code(s): A41.52 - Sepsis due to Pseudomonas (2) Orchitis and epididymitis Onset Date: 07/13/17 Current Visit: Yes Status: Acute (3) Catheter-associated urinary tract infection Current Visit: Yes Status: Acute Qualifiers: Indwelling urinary catheter type: indwelling urethral catheter Encounter type: subsequent encounter Qualified Code(s): T83.511D - Infection and inflammatory reaction due to indwelling urethral catheter, subsequent encounter ; N39.0 - Urinary tract infection, site not specified (4) CKD (chronic kidney disease), stage III Onset Date: 04/04/14 Current Visit: No Status: Chronic (5) Diabetes mellitus type II, uncontrolled Onset Date: 10/16/14 Current Visit: No Status: Chronic Qualifiers: Diabetes mellitus chcf insulin use: with chcf use Diabetes mellitus complication status: with unspecified complications Qualified Code(s) : E11.8 - Type 2 diabetes mellitus with unspecified complications; E11.65 - Type 2 diabetes mellitus with hyperglycemia; Z79.4 - ferry terminal agent (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 (6) Hyperlipidemia Onset Date: 10/16/14 Current Visit: No Status: Chronic Qualifiers: Hyperlipidemia type: mixed hyperlipidemia Qualified Code(s): E78.2 - Mixed hyperlipidemia (7) Paraplegia Onset Date: 04/04/14 Current Visit: No Status: Chronic (8) Gastroesophageal reflux disease Onset Date: 10/16/14 Current Visit: No Status: Chronic Qualifiers: Esophagitis presence: esophagitis presence not specified Qualified Code(s) : K21.9 - Gastro-esophageal reflux disease without esophagitis (9) History of spinal cord injury Current Visit: No Status: Chronic (10) Hypertension Onset Date: 04/04/14 Current Visit: No Status: Chronic Qualifiers: Hypertension type: essential hypertension Qualified Code(s): I10 - Essential (primary) hypertension Brief History of Present Illness: Mr Chaudhari is a 52 years old male with history of IDDM, paraplegia due to spinal cord injury, requiring self-catheterization. Last year he was admitted a couple of times due to testicular abscess requiring I&D, done by Dr Doan. His , states that he started yesterday to be more lethargic and sleepy than usual, had fever and also noticed decrease in urine output. Also his testicles got swollen again and become painful. This morning came to ER, and was diagnosed with UTI. He was discharged home on oral antibiotics. However, during today his testicular swelling got worse as well his pain. At arrival to ED he was obtunded , Temp 99.5 F. Lab work shows normal WBC count with elevated procalcitonin. He had a testicular US consistent with epididymitis and early orchitis. Hospital Course: Overall during the hospital stay patient remained stable The patient was initially admitted to the hospital for left-sided epididymitis along with orchitis. Patient has extensive history of hydrocele that was repaired on the left-hand side. Patient was initially started on IV meropenem with a history of UTI that had been going DS BL. Urine culture was collected here in the hospital on the initial day of admission. Urine culture was positive for Pseudomonas which was sensitive to ciprofloxacin. Patient was thus switched to IV ciprofloxacin here in the hospital. Patient had marked improvement in his epididymitis and orchitis. Patient had minimal swelling noted along with no erythema or drainage. Patient was then made aware of the discharge home. Patient however here in the hospital has been asking for IV pain medication around the clock. Initially patient was laying on his scrotal area that was not elevated after repeatedly telling the patient that the scrotal area need to be elevated and iced. Patient patient was also touching his scrotal area without any pain however when I examined the patient with light touch patient was complaining of a lot of pain. Patient and family at bedside were educated extensively on appropriate use of pain medication and the need to switch him to p.o. medications for discharge home. At that time. Patient and family member demonstrated understanding however stated that patient usually requires higher doses of IV medication and pain medication because he has been buildup to that. Patient and family member again were educated extensively on the bacteria that was growing in the urine and the sensitivity to oral antibiotics and the need to switch to oral antibiotics to avoid building resistance. In addition patient and family member were educated extensively regarding p.o. pain medication as well as patient will be needing those at home. Patient and family member demonstrated understanding and thus patient was discharged home. Patient was asked to follow up with urology in about 1-2 weeks post discharge. Urology was consulted here in the hospital and agreed with the above plan. Patient was given a prescription for ciprofloxacin to go home with. Vital Signs/Physical Exam: Temp Pulse Resp BP Pulse Ox 99.7 F 103 H 16 179/96 H 95 07/15/17 13:06 07/15/17 13:06 07/15/17 13:06 07/15/17 13:06 07/15/17 13:06 General: Alert, In no apparent distress HEENT: Atraumatic, PERRLA, EOMI Neck: Supple, JVD not distended Respiratory: Clear to auscultation bilaterally, Normal air movement Cardiovascular: Regular rate/rhythm, Normal S1 S2 Gastrointestinal: Normal bowel sounds, No tenderness Musculoskeletal: No tenderness Integumentary: No rashes Neurological: Normal speech, Normal tone, Normal affect Lymphatics: No axilla or inguinal lymphadenopathy External genitalia: Edema, Other ( marked on PN from 07/15/17) Other Physical/Emotional Findings: marked on PN from 07/15/17 Laboratory Data at Discharge: WBC 8.5 K/uL (4.3-10.9) D 07/15/17 11:10 Hgb 12.0 g/dL (13.6-17.9) L 07/15/17 11:10 Hct 35.8 % (39.6-49.0) L 07/15/17 11:10 Plt Count 166 K/uL (152-406) D 07/15/17 11:10 Sodium 130 mEq/L (135-145) L 07/15/17 11:10 Potassium 4.0 mEq/L (3.6-5.0) 07/15/17 11:10 BUN 15 mg/dL (6-20) 07/15/17 11:10 Creatinine 1.09 mg/dL (0.61-1.24) 07/15/17 11:10 Glucose 329 mg/dL (65-120) H 07/15/17 11:10 Magnesium 1.7 mg/dL (1.8-2.5) L 07/13/17 04:38 Total Bilirubin 1.2 mg/dL (0.3-1.2) 07/15/17 11:10 AST 22 IU/L (10-42) 05/09/18 11:10 ALT 20 IU/L (10-60) 07/15/17 11:10 Alkaline Phosphatase 73 IU/L (42-121) 07/15/17 11:10 Home Medications: Atenolol [Tenormin*] 50 mg PO DAILY 02/05/15 Insulin Aspart [Novolog] 22 units SQ TID 02/05/15 Insulin Detemir [Levemir] 36 unit SQ BID 02/05/15 Lisinopril [Prinivil*] 40 mg PO DAILY 02/05/15 Pantoprazole Sodium [Protonix] 40 mg PO BEDTIME 02/05/15 Colchicine [Colcrys] 1 tab PO BID PRN 07/25/16 Levothyroxine [Synthroid*] 75 mcg PO [id number] 07/25/16 Oxybutynin Chloride [Ditropan*] 5 mg PO TID 07/25/16 Baclofen [Lioresal*] 1 tab PO BID 10/12/16 Hydrocodone 10/APAP 325 [[place] 10/325*] 1 tab PO TID PRN 10/12/16 Docusate [Colace Cap*] 100 mg PO BID #60 cap 11/27/16 Brinzolamide/Brimonidine Tart [Simbrinza 1%-0.2% Eye Drops] 2 drops OP BID 07/13 Ciprofloxacin HCl [Cipro 500 MG Tablet] 500 mg PO DAILY #14 tab 07/15/17 New Medications: Ciprofloxacin HCl [Cipro 500 MG Tablet] 500 mg PO DAILY #14 tab Patient Discharge Instructions: Please f/u with Dr Doan in the clinic in to 2 days post discharge. New medication. Ciprofloxacin 500mg daily for 14days Diet: Regular Activity: Ad tadeo Followup: Kaitlin Doan MD [ACTIVE - CAN ADMIT] - 1 Week
[2017-07-15] MEDS: PANTOPRAZOLE 40MG TABLET PO SCH (21:30)
[2017-07-15] MEDS ORDERED: ONDANSETRON 4 MG/2 ML VIAL IV PRN (21:35)
--- NOTE | 2017-07-16 00:55 | PN ---
Subjective: The patient is almost ready to go home, but did want to go home today. Says rose grady review. He is really stable. Labs have been stable. No white count. No fever. Does have some scrotal swelling, which is normal, had it for a few weeks, maybe a month. Objective: Vital Signs: Temperature 99.2, 85 pulse, respirations 18, BP 140/64, 96% sats on room ai r. Physical exam benign. Pelvic: Left scrotum still swollen. No signs of abscesses. Still needs to have his scrotal support . Assessment: Left epididymo-orchitis. Plan: With recurrent epididymo-orchitis been having since he was a patient with a neurogenic bladder and straight cath, I am going to recommend bilateral vasectomy for him in about a month after all in flammation is down. This can be done as an outpatient possibly in the hospital due to his insurance, but for now, I believe he can go home on Cipro. His final culture grew Pseudomonas so just from the past you will see Pseudomonas from 5-6, again these are all sensitive to Levaquin and Cipro and pain medications. Follow up with me in a month for vasectomy. He does use SpeediCath at home and use io dine prep and gloves, but still due to the infection he catheterizes about 12 times a day. The says because he drinks so much and has to void so much so he needs to drink less and catheter advance dTigre MAHAN/SNOW Voice ID: [id number] Report ID: [id number]
[2017-07-16] MEDS: COLCHICINE 0.6 MG TAB PO PRN (04:46)
[2017-07-16] MEDS: LEVOTHYROXINE SOD 0.075 MG TAB PO SCH (04:46)
[2017-07-16] MEDS: NA CHLORIDE 0.9% 1,000 ML IV SCH ×2 (05:03→17:18)
[2017-07-16 06:01] LABS: Magnesium 1.5 mg/dL (1.8-2.5); Potassium 3.9 mEq/L (3.6-5.0)
[2017-07-16] MEDS ORDERED: Magnesium Sulfate 2gm IVPB 2 G/50 ML BAG IV ONE (06:23)
[2017-07-16] MEDS ORDERED: POTASSIUM 25 MEQ EFFERV TAB PO ONE (06:26)
[2017-07-16] MEDS: INSULIN -REGULAR HUMAN 50 UNIT/0.5 ML ML SQ SCH ×4 (07:30→20:47)
[2017-07-16] MEDS: HYDROCODONE/APAP 10/325 TAB PO PRN (07:50)
[2017-07-16] MEDS: OXYBUTYNIN CHLORIDE 5 MG TAB PO SCH ×3 (08:40→20:46)
[2017-07-16] MEDS: BACLOFEN 10 MG TAB PO SCH ×2 (08:41→20:47)
[2017-07-16] MEDS: CIPROFLOXACIN 400mg IV 400 MG/200 ML BAG IV SCH ×3 (08:41→20:54)
[2017-07-16] MEDS: DOCUSATE NA 100 MG CAP PO SCH ×2 (08:41→20:47)
[2017-07-16] MEDS: ATENOLOL 50 MG TAB PO SCH (08:41)
[2017-07-16] MEDS ORDERED: D50W 25 GM/50 ML SYRINGE IV PRN (14:04)
[2017-07-16] MEDS ORDERED: GLUCAGON 1 MG/VIAL IM PRN (14:04)
[2017-07-16] MEDS ORDERED: HYDRALAZINE HCL 20 MG/ML VIAL IV ONE (14:15)
--- NOTE | 2017-07-16 16:28 | P.PN ---
Subjective Date of Service: 07/16/17 Primary Care Provider: Dr Powers Chief Complaint: sepsis Pt seen and examine at bedside with RN. Case DW with Urology. Doing well overall. Medically stable. Awaiting Medicare appeal information Review of Systems General: As per HPI Physical Examination - Vital Signs Temperature: 98.4 F Blood Pressure: 156/97 Pulse: 86 Respirations: 18 Pulse Ox (%): 10 - Physical Exam General: Alert, In no apparent distress HEENT: Atraumatic, PERRLA, EOMI Neck: Supple, JVD not distended Respiratory: Clear to auscultation bilaterally, Normal air movement Cardiovascular: Regular rate/rhythm, Normal S1 S2 Gastrointestinal: Normal bowel sounds, No tenderness Musculoskeletal: No tenderness Integumentary: No rashes Neurological: Normal speech, Normal tone, Normal affect Lymphatics: No axilla or inguinal lymphadenopathy Other Physical/Emotional Findings: marked on PN from 07/15/17 - Studies Medications List Reviewed: Yes Assessment & Plan - Problems (Diagnosis) (1) Sepsis Current Visit: Yes Status: Resolved Plan: Sepsis most likely 2.2 to UTI due to frequent catherization. Resolved -Urine culture + for pseudomonos sensitive to ciprofloxacin -Changed to PO now. Qualifiers: Sepsis type: Pseudomonas Qualified Code(s): A41.52 - Sepsis due to Pseudomonas (2) Orchitis and epididymitis Onset Date: 07/13/17 Current Visit: Yes Status: Acute Plan: Most Likely secondary to UTI 2.2 to frequent Indwelling catheter -Urology Consulted. Reccs appreciated -urine Culture+ for Pseudo sensitive to cipro. Switched to IV yesterday. Had marked improvement. Now switched to PO -Elevate scrotal area and ICE -No surgical procedure planned. -Swelling is improved markedly. No erythema noted. (3) Catheter-associated urinary tract infection Current Visit: Yes Status: Acute Plan: See # 1 -Uculture now + for pseudomonus -Now on PO Cipro. Improved a lot. 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 Diabetes mellitus complication status: with unspecified complications Qualified Code(s) : E11.8 - Type 2 diabetes mellitus with unspecified complications; E11.65 - Type 2 diabetes mellitus with hyperglycemia; Z79.4 - detention (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 (6) Hyperlipidemia Onset Date: 10/16/14 Current Visit: No Status: Chronic Qualifiers: Hyperlipidemia type: mixed hyperlipidemia Qualified Code(s): E78.2 - Mixed hyperlipidemia (7) Paraplegia Onset Date: 04/04/14 Current Visit: No Status: Chronic (8) Gastroesophageal reflux disease Onset Date: 10/16/14 Current Visit: No Status: Chronic Qualifiers: Esophagitis presence: esophagitis presence not specified Qualified Code(s) : K21.9 - Gastro-esophageal reflux disease without esophagitis (9) History of spinal cord injury Current Visit: No Status: Chronic (10) Hypertension Onset Date: 04/04/14 Current Visit: No Status: Chronic Qualifiers: Hypertension type: essential hypertension Qualified Code(s): I10 - Essential (primary) hypertension
--- NOTE | 2017-07-16 17:40 | PN ---
Subjective: The patient is still presently awaiting Medicare to decide if he can go home and was dis charged, but he wants to stay. Clinically, he is doing well. Objective: Vital Signs: Temperature 99.3, pulse rate 95, respiratory rate 18, BP 133/63. Assessment: Left epididymo-orchitis with Pseudomonas. The patient is on ciprofloxacin, which he can also take at home, and plan for a vasectomy in about a month to prevent this chronic orchitis. NEGRITO/SNOW Voice ID: [id number] Report ID: [id number]
[2017-07-16] MEDS: ACETAMINOPHEN 500 MG TAB PO PRN (20:46)
[2017-07-16] MEDS: PANTOPRAZOLE 40MG TABLET PO SCH (20:46)
[2017-07-17] MEDS: ACETAMINOPHEN 500 MG TAB PO PRN ×2 (05:12→16:36)
[2017-07-17 05:13] LABS: Potassium 3.8 mEq/L (3.6-5.0)
[2017-07-17] MEDS: LEVOTHYROXINE SOD 0.075 MG TAB PO SCH (05:13)
[2017-07-17] MEDS: NA CHLORIDE 0.9% 1,000 ML IV SCH ×2 (05:14→13:18)
[2017-07-17] MEDS ORDERED: POTASSIUM CL SA 10 MEQ TAB PO ONE (06:30)
[2017-07-17] MEDS: COLCHICINE 0.6 MG TAB PO PRN (06:55)
[2017-07-17] MEDS: INSULIN -REGULAR HUMAN 50 UNIT/0.5 ML ML SQ SCH ×3 (08:48→16:35)
[2017-07-17] MEDS: DOCUSATE NA 100 MG CAP PO SCH (08:49)
[2017-07-17] MEDS: CIPROFLOXACIN 400mg IV 400 MG/200 ML BAG IV SCH (08:49)
[2017-07-17] MEDS: ATENOLOL 50 MG TAB PO SCH (08:49)
[2017-07-17] MEDS: BACLOFEN 10 MG TAB PO SCH (08:50)
[2017-07-17] MEDS: OXYBUTYNIN CHLORIDE 5 MG TAB PO SCH ×2 (08:50→13:55)
--- NOTE | 2017-07-17 10:48 | P.PN ---
Subjective Date of Service: 07/17/17 Primary Care Provider: Dr Powers Chief Complaint: sepsis Subjective: Other (Patient doing well at this time. I was asked to see the patient as the patient requested another attending.) Physical Examination - Vital Signs Temperature: 97.5 F Blood Pressure: 135/77 Pulse: 81 Respirations: 20 Pulse Ox (%): 98 - Physical Exam General: Alert, In no apparent distress, Oriented x3, Cooperative HEENT: Atraumatic Neck: Supple Respiratory: Clear to auscultation bilaterally, Normal air movement Cardiovascular: Normal pulses, Regular rate/rhythm Gastrointestinal: Normal bowel sounds, Soft and benign, Non-distended, Other ( Obese) Musculoskeletal: No tenderness, No warmth Integumentary: Other (Patient with paraplegia.) Neurological: Normal speech, Abnormal strength (Patient with peer please showed to the lower extremities) External genitalia: Other (Induration noted to the scrotal region.) - Studies Medications List Reviewed: Yes Assessment & Plan - Problems (Diagnosis) (1) CKD (chronic kidney disease) Onset Date: 07/13/17 Current Visit: Yes Status: Chronic Plan: Patient with mild chronic renal disease. Recommendation on no further use of nonsteroidal anti-inflammatories. Will monitor closely. Qualifiers: Chronic kidney disease stage: stage 2 (mild) Qualified Code(s): N18.2 - Chronic kidney disease, stage 2 (mild) (2) Catheter-associated urinary tract infection Current Visit: Yes Status: Acute Plan: Urine culture positive for Pseudomonas aeruginosa. Blood cultures negative. Patient on Cipro. Patient appealing discharge. Will continue with antibiotic therapy. Will discuss with urology. Attending reports that the patient is to continue with oral antibiotic therapy as an outpatient and follow up with urology for vasectomy to prevent future orchitis and epididymitis. Qualifiers: Indwelling urinary catheter type: indwelling urethral catheter Encounter type: subsequent encounter Qualified Code(s): T83.511D - Infection and inflammatory reaction due to indwelling urethral catheter, subsequent encounter ; N39.0 - Urinary tract infection, site not specified (3) Orchitis and epididymitis Onset Date: 07/13/17 Current Visit: Yes Status: Acute Plan: Continue with above plan of care. Patient on IV antibiotic therapy. This can be transition to oral. Will discuss with social sciences instructor about his appeal for discharge. (4) Sepsis Current Visit: Yes Status: Resolved Plan: Blood cultures negative. Qualifiers: Sepsis type: Pseudomonas Qualified Code(s): A41.52 - Sepsis due to Pseudomonas (5) Anemia Onset Date: 04/04/14 Current Visit: No Status: Chronic Plan: Patient with mild anemia. Will continue monitor closely. Qualifiers: Anemia type: unspecified type Qualified Code(s): D64.9 - Anemia, unspecified (6) Diabetes mellitus Onset Date: 02/06/15 Current Visit: No Status: Chronic Plan: Will obtain A1c. Will start basal insulin for better diabetic control. 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 Overall stable this time. (9) Hyperlipidemia Onset Date: 10/16/14 Current Visit: No Status: Chronic Plan: Will continue with his medication Qualifiers: Hyperlipidemia type: mixed hyperlipidemia Qualified Code(s): E78.2 - Mixed hyperlipidemia (10) Hypertension Onset Date: 04/04/14 Current Visit: No Status: Chronic Plan: Will review medication. Blood pressure stable. Qualifiers: Hypertension type: essential hypertension Qualified Code(s): I10 - Essential (primary) hypertension Discharge Plan: Home Plan to discharge in: 24 Hours Time Spent Managing Pts Care (In Minutes): 55
[2017-07-17 11:40] LABS: A1c Component 1.07 mg/dL
--- NOTE | 2017-07-17 15:27 | PN ---
Subjective: The patient is sleeping. Objective: Genitalia: Scrotum is not exquisitely tender. Swollen is still present, but improving. Vital Signs: Temperature 97.5, pulse 81, respirations 20, BP 135/77, sats 96% on room air. Pain lev el was reported to be 2/10. Again, the patient's culture grew Pseudomonas. He is on Cipro for this. He can go home today. Cont inue scrotal elevation and continue Cipro. Follow up in a month to consider bilateral vasectomies. Valera catheter can be removed. The patient can begin his clean intermittent catheterization at home as needed. NEGRITO/SNOW Voice ID: [id number] Report ID: [id number]
[2017-07-17] MEDS ORDERED: ENOXAPARIN 40 MG/0.4 ML SQ SCH (17:00)
[2017-07-17 17:07] VITALS: BP 165/99; TEMP 98.2
[2017-07-17] MEDS ORDERED: INSULIN DETEMIR 100 UNIT/1 ML INSULIN SQ SCH (21:00)
[2017-07-18] MEDS ORDERED: MULTIVITAMIN TAB PO SCH (09:00)
== END 2017-07-17 18:26 | disposition home or self-care (01) | DRG 698 ==
LOC: ER 15:08 → ERHOLD 20:44 → 2ND 22:34
PROVIDERS: ADMIT Internal Medicine; ATTEND Internal Medicine
DX: T83.511A Infection and inflammatory reaction due to indwelling urethral catheter, initial encounter (principal); A41.52 Sepsis due to Pseudomonas; G82.20 Paraplegia, unspecified; N39.0 Urinary tract infection, site not specified; N45.3 Epididymo-orchitis; E78.2 Mixed hyperlipidemia; K21.9 Gastro-esophageal reflux disease without esophagitis; I12.9 Hypertensive chronic kidney disease with stage 1 through stage 4 chronic kidney disease, or unspecified chronic kidney disease; E11.22 Type 2 diabetes mellitus with diabetic chronic kidney disease; E11.65 Type 2 diabetes mellitus with hyperglycemia; N18.3 Chronic kidney disease, stage 3 (moderate); Z79.4 Long term (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; E03.9 Hypothyroidism, unspecified; E66.9 Obesity, unspecified; Z68.35 Body mass index [BMI] 35.0-35.9, adult; D64.9 Anemia, unspecified
CPT/HCPCS: 36415; 70450; 76870; 80048; 80053; 80076; 81003; 81015; 82009; 82962; 83036; 83605; 83735; 84145; 85025; 85652; 87040; 87077; 87086; 87088; 87186; 96361; 96365; 96375; 99284; 99285; J0360; J0696; J0744; J1650; J2175; J2185; J2270; J2405; J3475; J7030

== ENCOUNTER 2017-11-24 08:01 | Emergency (ER) | payer OTHER ==
--- OUTSIDE RECORDS SUMMARY | 2017-11-24 08:03 | XMS REPORT | Clinical Summary ---
:1965 Author Organization [facility] Address [address] [place] [address] Phone Care Team Providers Name Role Phone [...] as needed As needed for gout . hydroCHLOROthiazide Take 0.5 tablets 15 tablet 11 07/04/19 (HYDRODIURIL) 25 MG (12.5 mg total) by 7 18 tablet mouth daily. hydroCHLOROthiazide Take 2 tablets (25 60 tablet 0 07/04/07/05/19 (HYDRODIURIL) 12.5 MG mg total) by mouth [...] Not on file Results Not on fileafter 11/23/2016
--- OUTSIDE RECORDS SUMMARY | 2017-11-24 08:04 | XMS REPORT ---
:1965 Author Organization [facility] Address [address] [place] [address] Care Team Providers Name Role Phone FAITH GOMEZ Unavailable Unavailable Problems This patient has no known problems. Allergies, Adverse Reactions, Alerts This patient has no known allergies or adverse reactions. Medications This patient has no known medications. Results Test Description Test Time Test Comments Text Results Atomic Results Result Comments BLOOD CULTURE 2016-07-07 14:28:00 Test Item Value Reference Range Comments CULTURE (BEAKER) (test ndgj=2054) No growth in 5 days POCT-GLUCOSE [id number] 12:04:00 Test Item Value Reference Range Comments POC-GLUCOSE METER (BEAKER) 179 mg/dL 70-110 TESTED AT [facility] [address] [facility] (test mpei=4566) [facility] [address] BASIC METABOLIC [id number] 09:51:00 Test Item Value Reference Range Comments SODIUM (BEAKER) (test 137 meq/L 136-145 ffnq=169) POTASSIUM (BEAKER) (test 3.7 meq/L 3.5-5.1 thhr=833) CHLORIDE (BEAKER) (test 102 meq/L 98-107 dpzo=389) CO2 (BEAKER) (test 25 meq/L 22-29 tpwk=084) BLOOD UREA NITROGEN 17 mg/dL 7-21 (BEAKER) (test mefg=851) CREATININE (BEAKER) (test 1.04 mg/dL 0.57-1.25 ldbd=173) GLUCOSE RANDOM (BEAKER) 195 mg/dL 70-105 (test sauh=870) CALCIUM (BEAKER) (test 9.2 mg/dL 8.4-10.2 mqsw=014) EGFR (BEAKER) (test 76 mL/min/1.73 sq m ESTIMATED GFR IS NOT uuzf=7937) ACCURATE CREATININE CLEARANCE IN PREDICTING GLOMERULAR FILTRATION RATE. ESTIMATED GFR IS NOT APPLICABLE FOR DIALYSIS PATIENTS. CBC W/PLT COUNT & AUTO [id number] 09:20:00 Test Item Value Reference Range Comments WHITE BLOOD CELL COUNT (BEAKER) (test htyy=360) 6.1 K/ L 4.0-10.0 RED BLOOD CELL COUNT (BEAKER) (test hyiy=057) 4.63 M/ L 4.20-5.80 HEMOGLOBIN (BEAKER) (test qzow=857) 13.7 GM/DL 13.0-16.8 HEMATOCRIT (BEAKER) (test jyux=336) 39.8 % 40.0-50.0 MEAN CORPUSCULAR VOLUME (BEAKER) (test fhgd=405) 85.9 fL 82.0-98.0 MEAN CORPUSCULAR HEMOGLOBIN (BEAKER) (test 29.6 pg 27.0-33.0 uphv=147) MEAN CORPUSCULAR HEMOGLOBIN CONC (BEAKER) (test 34.5 GM/DL 32.0-36.0 zcbg=410) RED CELL DISTRIBUTION WIDTH (BEAKER) (test 14.8 % 10.3-14.2 zhlq=866) PLATELET COUNT (BEAKER) (test buwy=044) 143 K/CU MM 150-430 MEAN PLATELET VOLUME (BEAKER) (test afxr=697) 8.6 fL 6.5-10.5 NUCLEATED RED BLOOD CELLS (BEAKER) (test 0 /100 WBC 0-0 yzog=677) NEUTROPHILS RELATIVE PERCENT (BEAKER) (test 71 % ztfm=279) LYMPHOCYTES RELATIVE PERCENT (BEAKER) (test 20 % sjfn=873) MONOCYTES RELATIVE PERCENT (BEAKER) (test 5 % rlxm=108) EOSINOPHILS RELATIVE PERCENT (BEAKER) (test 3 % revt=143) BASOPHILS RELATIVE PERCENT (BEAKER) (test 1 % jcqw=766) NEUTROPHILS ABSOLUTE COUNT (BEAKER) (test 4.31 K/ L 1.80-8.00 ctrr=998) LYMPHOCYTES ABSOLUTE COUNT (BEAKER) (test 1.23 K/ L 1.48-4.50 rnwn=113) MONOCYTES ABSOLUTE COUNT (BEAKER) (test 0.28 K/ L 0.00-1.30 zmwa=268) EOSINOPHILS ABSOLUTE COUNT (BEAKER) (test 0.21 K/ L 0.00-0.50 jgxx=926) BASOPHILS ABSOLUTE COUNT (BEAKER) (test 0.03 K/ L 0.00-0.20 ythd=005) 0.00POCT-GLUCOSE [id number] 07:15:00 Test Item Value Reference Range Comments POC-GLUCOSE METER (BEAKER) 246 mg/dL 70-110 TESTED AT [address] (test zziv=4958) [place] [address] POCT-GLUCOSE [id number] 21:12:00 Test Item Value Reference Range Comments POC-GLUCOSE METER (BEAKER) 89 mg/dL 70-110 TESTED AT [address] (test lllc=6844) [place] [address] POCT-GLUCOSE [id number] 17:12:00 Test Item Value Reference Range Comments POC-GLUCOSE METER (BEAKER) 217 mg/dL 70-110 TESTED AT [address] (test yirb=1610) [place] [address] URINE [id number] 12:07:00 Test Item Value Reference Range Comments CULTURE (BEAKER) (test jdtj=8796) <10,000 col/mL skin candi POCT-GLUCOSE [id number] 11:30:00 Test Item Value Reference Range Comments POC-GLUCOSE METER (BEAKER) 205 mg/dL 70-110 TESTED AT [address] (test kaxo=8516) [place] [address] POCT-GLUCOSE [id number] 07:36:00 Test Item Value Reference Range Comments POC-GLUCOSE METER (BEAKER) 195 mg/dL 70-110 TESTED AT [address] (test tvkd=6318) [place] [address] CBC W/PLT COUNT & AUTO [id number] 05:14:00 Test Item Value Reference Range Comments WHITE BLOOD CELL COUNT (BEAKER) (test ljac=136) 6.7 K/ L 4.0-10.0 RED BLOOD CELL COUNT (BEAKER) (test kqlf=885) 4.40 M/ L 4.20-5.80 HEMOGLOBIN (BEAKER) (test mhfb=014) 13.3 GM/DL 13.0-16.8 HEMATOCRIT (BEAKER) (test fmao=819) 38.2 % 40.0-50.0 MEAN CORPUSCULAR VOLUME (BEAKER) (test luun=451) 86.8 fL 82.0-98.0 MEAN CORPUSCULAR HEMOGLOBIN (BEAKER) (test 30.1 pg 27.0-33.0 wpew=955) MEAN CORPUSCULAR HEMOGLOBIN CONC (BEAKER) (test 34.7 GM/DL 32.0-36.0 egpv=329) RED CELL DISTRIBUTION WIDTH (BEAKER) (test 14.7 % 10.3-14.2 gpqu=505) PLATELET COUNT (BEAKER) (test jjny=438) 144 K/CU MM 150-430 MEAN PLATELET VOLUME (BEAKER) (test gszx=315) 9.0 fL 6.5-10.5 NUCLEATED RED BLOOD CELLS (BEAKER) (test 0 /100 WBC 0-0 bavd=606) NEUTROPHILS RELATIVE PERCENT (BEAKER) (test 67 % tztk=394) LYMPHOCYTES RELATIVE PERCENT (BEAKER) (test 25 % kaqy=352) MONOCYTES RELATIVE PERCENT (BEAKER) (test 5 % jrxo=698) EOSINOPHILS RELATIVE PERCENT (BEAKER) (test 2 % kzvt=881) BASOPHILS RELATIVE PERCENT (BEAKER) (test 0 % rsvd=325) NEUTROPHILS ABSOLUTE COUNT (BEAKER) (test 4.52 K/ L 1.80-8.00 xivs=711) LYMPHOCYTES ABSOLUTE COUNT (BEAKER) (test 1.70 K/ L 1.48-4.50 lykw=122) MONOCYTES ABSOLUTE COUNT (BEAKER) (test 0.32 K/ L 0.00-1.30 jkyn=553) EOSINOPHILS ABSOLUTE COUNT (BEAKER) (test 0.16 K/ L 0.00-0.50 hdbf=638) BASOPHILS ABSOLUTE COUNT (BEAKER) (test 0.03 K/ L 0.00-0.20 yqdl=775) 0.00BASI METABOLIC [id number] 05:14:00 Test Item Value Reference Range Comments SODIUM (BEAKER) (test 134 meq/L 136-145 knoo=793) POTASSIUM (BEAKER) (test 4.2 meq/L 3.5-5.1 didv=913) CHLORIDE (BEAKER) (test 101 meq/L 98-107 dfqz=193) CO2 (BEAKER) (test 24 meq/L 22-29 etad=401) BLOOD UREA NITROGEN 20 mg/dL 7-21 (BEAKER) (test wqkl=620) CREATININE (BEAKER) (test 1.16 mg/dL 0.57-1.25 dstx=493) GLUCOSE RANDOM (BEAKER) 216 mg/dL 70-105 (test sjxl=064) CALCIUM (BEAKER) (test 8.8 mg/dL 8.4-10.2 xgid=077) EGFR (BEAKER) (test 67 mL/min/1.73 sq m ESTIMATED GFR IS NOT bcae=6595) ACCURATE CREATININE CLEARANCE IN PREDICTING GLOMERULAR FILTRATION RATE. ESTIMATED GFR IS NOT APPLICABLE FOR DIALYSIS PATIENTS. POCT-GLUCOSE [id number] 21:04:00 Test Item Value Reference Range Comments POC-GLUCOSE METER (BEAKER) 178 mg/dL 70-110 TESTED AT [address] (test lgmz=6491) [place] [id number] POCT-GLUCOSE [id number] 17:07:00 Test Item Value Reference Range Comments POC-GLUCOSE METER (BEAKER) 88 mg/dL 70-110 TESTED AT [address] (test libc=0903) [place] [id number] POCT-GLUCOSE [id number] 12:30:00 Test Item Value Reference Range Comments POC-GLUCOSE METER (BEAKER) 107 mg/dL 70-110 TESTED AT [address] (test wiuz=5028) [place] [id number] POCT-GLUCOSE [id number] 07:46:00 Test Item Value Reference Range Comments POC-GLUCOSE METER (BEAKER) 169 mg/dL 70-110 TESTED AT [address] (test owpx=3433) [place] [address] CBC W/PLT COUNT & AUTO [id number] 07:42:00 Test Item Value Reference Range Comments WHITE BLOOD CELL COUNT (BEAKER) (test fhoa=514) 6.5 K/ L 4.0-10.0 RED BLOOD CELL COUNT (BEAKER) (test tdbp=586) 4.57 M/ L 4.20-5.80 HEMOGLOBIN (BEAKER) (test frxs=910) 13.4 GM/DL 13.0-16.8 HEMATOCRIT (BEAKER) (test ljkd=569) 40.4 % 40.0-50.0 MEAN CORPUSCULAR VOLUME (BEAKER) (test sfpj=843) 88.3 fL 82.0-98.0 MEAN CORPUSCULAR HEMOGLOBIN (BEAKER) (test 29.3 pg 27.0-33.0 omue=084) MEAN CORPUSCULAR HEMOGLOBIN CONC (BEAKER) (test 33.2 GM/DL 32.0-36.0 aevc=600) RED CELL DISTRIBUTION WIDTH (BEAKER) (test 13.8 % 10.3-14.2 vyru=910) PLATELET COUNT (BEAKER) (test jjqj=008) 150 K/CU MM 150-430 MEAN PLATELET VOLUME (BEAKER) (test wmlp=997) 9.0 fL 6.5-10.5 NUCLEATED RED BLOOD CELLS (BEAKER) (test 0 /100 WBC 0-0 vsbn=518) NEUTROPHILS RELATIVE PERCENT (BEAKER) (test 64 % ryif=965) LYMPHOCYTES RELATIVE PERCENT (BEAKER) (test 26 % rjqa=145) MONOCYTES RELATIVE PERCENT (BEAKER) (test 7 % szil=304) EOSINOPHILS RELATIVE PERCENT (BEAKER) (test 3 % jnlz=563) BASOPHILS RELATIVE PERCENT (BEAKER) (test 0 % acfw=138) NEUTROPHILS ABSOLUTE COUNT (BEAKER) (test 4.13 K/ L 1.80-8.00 cysw=535) LYMPHOCYTES ABSOLUTE COUNT (BEAKER) (test 1.66 K/ L 1.48-4.50 ryyb=992) MONOCYTES ABSOLUTE COUNT (BEAKER) (test 0.44 K/ L 0.00-1.30 xaxv=900) EOSINOPHILS ABSOLUTE COUNT (BEAKER) (test 0.21 K/ L 0.00-0.50 ujyk=222) BASOPHILS ABSOLUTE COUNT (BEAKER) (test 0.03 K/ L 0.00-0.20 zfzs=373) 0.00BASIC METABOLIC [id number] 06:13:00 Test Item Value Reference Range Comments SODIUM (BEAKER) (test 136 meq/L 136-145 yikx=440) POTASSIUM (BEAKER) (test 3.6 meq/L 3.5-5.1 hetz=869) CHLORIDE (BEAKER) (test 101 meq/L 98-107 ylsf=459) CO2 (BEAKER) (test 25 meq/L 22-29 sjsj=358) BLOOD UREA NITROGEN 18 mg/dL 7-21 (BEAKER) (test dlod=373) CREATININE (BEAKER) (test 1.07 mg/dL 0.57-1.25 fvox=472) GLUCOSE RANDOM (BEAKER) 188 mg/dL 70-105 (test znjg=587) CALCIUM (BEAKER) (test 8.8 mg/dL 8.4-10.2 tgvc=467) EGFR (BEAKER) (test 73 mL/min/1.73 sq m ESTIMATED GFR IS NOT sosz=7401) ACCURATE CREATININE CLEARANCE IN PREDICTING GLOMERULAR FILTRATION RATE. ESTIMATED GFR IS NOT APPLICABLE FOR DIALYSIS PATIENTS. POCT-GLUCOSE [id number] 22:12:00 Test Item Value Reference Range Comments POC-GLUCOSE METER (BEAKER) 238 mg/dL 70-110 TESTED AT [place] [id number] [facility] (test zslo=0107) [facility] [address] POCT-GLUCOSE [id number] 17:25:00 Test Item Value Reference Range Comments POC-GLUCOSE METER (BEAKER) 102 mg/dL 70-110 TESTED AT [address] (test buhj=4592) [facility] [address] URINALYSIS W/ [id number] 12:50:00 Test Item Value Reference Range Comments COLOR (BEAKER) (test qfmd=304) Colorless CLARITY (BEAKER) (test xerm=447) Clear SPECIFIC GRAVITY UA (BEAKER) (test lzef=304) 1.002 1.001-1.035 PH UA (BEAKER) (test fsdx=507) 6.5 5.0-8.0 PROTEIN UA (BEAKER) (test mxsm=716) Negative Negative GLUCOSE UA (BEAKER) (test uxtm=496) Negative Negative KETONES UA (BEAKER) (test digk=303) Negative Negative BILIRUBIN UA (BEAKER) (test kukv=809) Negative Negative BLOOD UA (BEAKER) (test blcg=580) Negative Negative NITRITE UA (BEAKER) (test gvuj=104) Negative Negative LEUKOCYTE ESTERASE UA (BEAKER) (test dbqb=893) Negative Negative UROBILINOGEN UA (BEAKER) (test nadk=077) 0.2 mg/dL 0.2-1.0 RBC UA (BEAKER) (test qenn=070) 0 /HPF WBC UA (BEAKER) (test gwnf=708) < /HPF SOURCE(BEAKER) (test tqed=9553) POCT-GLUCOSE [id number] 12:04:00 Test Item Value Reference Range Comments POC-GLUCOSE METER (BEAKER) 226 mg/dL 70-110 TESTED AT [facility] [address] [facility] (test svfu=6807) [facility] [address] POCT-GLUCOSE [id number] 08:00:00 Test Item Value Reference Range Comments POC-GLUCOSE METER (BEAKER) 300 mg/dL 70-110 TESTED AT [facility] [address] [facility] (test eebe=4363) [facility] [address] BASIC METABOLIC [id number] 06:50:00 Test Item Value Reference Range Comments SODIUM (BEAKER) (test 134 meq/L 136-145 mqem=423) POTASSIUM (BEAKER) (test 4.0 meq/L 3.5-5.1 ryvh=706) CHLORIDE (BEAKER) (test 98 meq/L 98-107 sanl=569) CO2 (BEAKER) (test 26 meq/L 22-29 optf=603) BLOOD UREA NITROGEN 18 mg/dL 7-21 (BEAKER) (test zzhs=159) CREATININE (BEAKER) (test 1.25 mg/dL 0.57-1.25 rkzv=213) GLUCOSE RANDOM (BEAKER) 349 mg/dL 70-105 (test dtxw=527) CALCIUM (BEAKER) (test 8.9 mg/dL 8.4-10.2 ypmu=505) EGFR (BEAKER) (test 61 mL/min/1.73 sq m ESTIMATED GFR IS NOT qxfg=5187) ACCURATE CREATININE CLEARANCE IN PREDICTING GLOMERULAR FILTRATION RATE. ESTIMATED GFR IS NOT APPLICABLE FOR DIALYSIS PATIENTS. CBC W/PLT COUNT & AUTO [id number] 06:01:00 Test Item Value Reference Range Comments WHITE BLOOD CELL COUNT (BEAKER) (test tuff=592) 6.6 K/ L 4.0-10.0 RED BLOOD CELL COUNT (BEAKER) (test nauw=675) 4.79 M/ L 4.20-5.80 HEMOGLOBIN (BEAKER) (test wmaf=425) 14.1 GM/DL 13.0-16.8 HEMATOCRIT (BEAKER) (test gwrj=078) 42.0 % 40.0-50.0 MEAN CORPUSCULAR VOLUME (BEAKER) (test rwfy=699) 87.7 fL 82.0-98.0 MEAN CORPUSCULAR HEMOGLOBIN (BEAKER) (test 29.5 pg 27.0-33.0 bvua=543) MEAN CORPUSCULAR HEMOGLOBIN CONC (BEAKER) (test 33.6 GM/DL 32.0-36.0 xaub=263) RED CELL DISTRIBUTION WIDTH (BEAKER) (test 14.9 % 10.3-14.2 faoj=801) PLATELET COUNT (BEAKER) (test ftzv=898) 157 K/CU MM 150-430 MEAN PLATELET VOLUME (BEAKER) (test ysby=645) 9.0 fL 6.5-10.5 NUCLEATED RED BLOOD CELLS (BEAKER) (test 0 /100 WBC 0-0 eqbj=408) NEUTROPHILS RELATIVE PERCENT (BEAKER) (test 67 % dled=940) LYMPHOCYTES RELATIVE PERCENT (BEAKER) (test 23 % uach=478) MONOCYTES RELATIVE PERCENT (BEAKER) (test 7 % bfjz=281) EOSINOPHILS RELATIVE PERCENT (BEAKER) (test 3 % cwxs=738) BASOPHILS RELATIVE PERCENT (BEAKER) (test 0 % efoy=961) NEUTROPHILS ABSOLUTE COUNT (BEAKER) (test 4.44 K/ L 1.80-8.00 xyfc=048) LYMPHOCYTES ABSOLUTE COUNT (BEAKER) (test 1.51 K/ L 1.48-4.50 slir=438) MONOCYTES ABSOLUTE COUNT (BEAKER) (test 0.43 K/ L 0.00-1.30 uydh=943) EOSINOPHILS ABSOLUTE COUNT (BEAKER) (test 0.21 K/ L 0.00-0.50 fndh=109) BASOPHILS ABSOLUTE COUNT (BEAKER) (test 0.03 K/ L 0.00-0.20 nzkc=699) 0.00POCT-GLUCOSE [id number] 21:25:00 Test Item Value Reference Range Comments POC-GLUCOSE METER (BEAKER) 279 mg/dL 70-110 TESTED AT [facility] [address] [facility] (test ukcu=7020) [facility] [address] HEMOGLOBIN [id number] 21:13:00 Test Item Value Reference Range Comments HEMOGLOBIN A1C (BEAKER) (test yhlp=720) 10.7 % 4.3-6.1 CBC W/PLT COUNT & AUTO [id number] 20:47:00 Test Item Value Reference Range Comments WHITE BLOOD CELL COUNT (BEAKER) (test xhwl=155) 7.3 K/ L 4.0-10.0 RED BLOOD CELL COUNT (BEAKER) (test ewmk=996) 5.25 M/ L 4.20-5.80 HEMOGLOBIN (BEAKER) (test lcsd=104) 15.7 GM/DL 13.0-16.8 HEMATOCRIT (BEAKER) (test mqmf=072) 46.0 % 40.0-50.0 MEAN CORPUSCULAR VOLUME (BEAKER) (test scmc=042) 87.7 fL 82.0-98.0 MEAN CORPUSCULAR HEMOGLOBIN (BEAKER) (test 30.0 pg 27.0-33.0 tsai=242) MEAN CORPUSCULAR HEMOGLOBIN CONC (BEAKER) (test 34.2 GM/DL 32.0-36.0 bzsl=468) RED CELL DISTRIBUTION WIDTH (BEAKER) (test 13.8 % 10.3-14.2 howt=900) PLATELET COUNT (BEAKER) (test yckx=194) 166 K/CU MM 150-430 MEAN PLATELET VOLUME (BEAKER) (test fovx=572) 8.3 fL 6.5-10.5 NUCLEATED RED BLOOD CELLS (BEAKER) (test 0 /100 WBC 0-0 ozaz=394) NEUTROPHILS RELATIVE PERCENT (BEAKER) (test 69 % oucw=660) LYMPHOCYTES RELATIVE PERCENT (BEAKER) (test 22 % brmh=288) MONOCYTES RELATIVE PERCENT (BEAKER) (test 5 % jgvw=170) EOSINOPHILS RELATIVE PERCENT (BEAKER) (test 3 % tijb=889) BASOPHILS RELATIVE PERCENT (BEAKER) (test 0 % gylw=144) NEUTROPHILS ABSOLUTE COUNT (BEAKER) (test 5.04 K/ L 1.80-8.00 edok=721) LYMPHOCYTES ABSOLUTE COUNT (BEAKER) (test 1.63 K/ L 1.48-4.50 kglt=215) MONOCYTES ABSOLUTE COUNT (BEAKER) (test 0.40 K/ L 0.00-1.30 usgt=207) EOSINOPHILS ABSOLUTE COUNT (BEAKER) (test 0.22 K/ L 0.00-0.50 hmzz=722) BASOPHILS ABSOLUTE COUNT (BEAKER) (test 0.01 K/ L 0.00-0.20 ibat=162) 0.00POCT-GLUCOSE [id number] 18:31:00 Test Item Value Reference Range Comments POC-GLUCOSE METER (BEAKER) 205 mg/dL 70-110 TESTED AT [facility] [address] [facility] (test camq=5195) [facility] [address]
[2017-11-24 09:15] LABS: Urine Bacteria NONE SEEN /HPF (NONE SEEN); Urine RBC 20-50 /HPF (NONE SEEN)
[2017-11-24 09:16] LABS: Urine Culture Reflex Order REFLEXED; Urine Yeast PRESENT (NONE SEEN)
--- NOTE | 2017-11-24 09:28 | EDPHYS ---
Physician Documentation [facility] Name: Ramirez Chaudhari Age: 52 yrs Sex: Male : 1965 Arrival Date: 11/24/2017 Time: 08:03 Bed 13 Private MD: Ramon Powers E ED Physician Brodie Zheng HPI: 11/24 08:28 This 52 yrs old Male presents to ER via Wheelchair with complaints of jr8 Weakness, Urinary Problem, Shoulder Pain. 08:28 The patient presents with urinary symptoms, dysuria. Onset: The symptoms/episode jr8 began/occurred acutely, yesterday. Modifying factors: The symptoms are alleviated by nothing, the symptoms are aggravated by urinating. Associated signs and symptoms: Pertinent positives: general weakness. Severity of symptoms: At their worst the symptoms were mild, in the emergency department the symptoms are unchanged. The patient has experienced similar episodes in the past, a few times. The patient has not recently seen a physician. Stated that his shoulder has been hurting as well. Has been having to use it more do to new chair . Historical: - Allergies: 08:21 Ibuprofen; ss 08:21 metformin; ss - Home Meds: 08:25 atenolol 50 mg Oral tab 1 tab once daily [Active]; baclofen 10 mg Oral tab 1 tab twice rb1 a day [Active]; Colcrys 0.6 mg Oral tab 1 tab bid prn gout [Active]; hydrocodone-acetaminophen 10-325 mg Oral tab 1 tab three times a day [Active]; Levemir 36 units subcutaneous soln twice a day [Active]; levothyroxine 75 mcg tab 1 tab once daily [Active]; lisinopril 40 mg Oral tab 1 tab once daily [Active]; Novolog 22 units Sub-Q before meals [Active]; oxybutynin chloride 5 mg Oral tab 1 tab 3 times per day [Active]; pantoprazole 40 mg Oral grps 1 tab once daily [Active]; - PMHx: 08:21 ADD/ADHD; Diabetes - IDDM; GERD; Gout; High Cholesterol; Hydrocele Left Testicle; ss Hypertension; Hypothyroidism; Migraines; Paraplegia; Renal Disease; Spinal Stroke; - PSHx: 08:25 hydrocele; rb1 - Immunization history:: Adult Immunizations up to date. - Social history:: Smoking status: Patient/guardian denies using tobacco. - Ebola Screening: : Patient denies exposure to infectious person Patient denies travel to an Ebola-affected area in the 21 days before illness onset. ROS: 08:28 Eyes: Negative for injury, pain, redness, and discharge, ENT: Negative for injury, jr8 pain, and discharge, Neck: Negative for injury, pain, and swelling, Cardiovascular: Negative for chest pain, palpitations, and edema, Respiratory: Negative for shortness of breath, cough, wheezing, and pleuritic chest pain, Abdomen/GI: Negative for abdominal pain, nausea, vomiting, diarrhea, and constipation, Back: Negative for injury and pain, Skin: Negative for injury, rash, and discoloration, Neuro: Negative for headache, weakness, numbness, tingling, and seizure. 08:28 : Positive for urinary symptoms, burning with urination. 08:28 MS/extremity: Positive for decreased range of motion, pain, tenderness. Exam: 08:28 Eyes: Pupils equal round and reactive to light, extra-ocular motions intact. Lids and jr8 lashes normal. Conjunctiva and sclera are non-icteric and not injected. Cornea within normal limits. Periorbital areas with no swelling, redness, or edema. ENT: Nares patent. No nasal discharge, no septal abnormalities noted. Tympanic membranes are normal and external auditory canals are clear. Oropharynx with no redness, swelling, or masses, exudates, or evidence of obstruction, uvula midline. Mucous membranes moist. Neck: Trachea midline, no thyromegaly or masses palpated, and no cervical lymphadenopathy. Supple, full range of motion without nuchal rigidity, or vertebral point tenderness. No Meningismus. Cardiovascular: Regular rate and rhythm with a normal S1 and S2. No gallops, murmurs, or rubs. Normal PMI, no JVD. No pulse deficits. Respiratory: Lungs have equal breath sounds bilaterally, clear to auscultation and percussion. No rales, rhonchi or wheezes noted. No increased work of breathing, no retractions or nasal flaring. Abdomen/GI: Soft, non-tender, with normal bowel sounds. No distension or tympany. No guarding or rebound. No evidence of tenderness throughout. Back: No spinal tenderness. No costovertebral tenderness. Full range of motion. Skin: Warm, dry with normal turgor. Normal color with no rashes, no lesions, and no evidence of cellulitis. Neuro: Awake and alert, GCS 15, oriented to person, place, time, and situation. Cranial nerves II-XII grossly intact. Motor strength 5/5 in all extremities. Sensory grossly intact. Cerebellar exam normal. Normal gait. 08:28 Musculoskeletal/extremity: Extremities: grossly normal except: noted in the right shoulder: pain, tenderness, ROM: full active range of motion, full passive range of motion, limited active range of motion due to pain, limited passive range of motion due to pain, Circulation is intact in all extremities. Sensation intact. Vital Signs: 08:20 BP 156 / 91; Pulse 77; Resp 16; Pulse Ox 93% on R/A; Weight 104.33 kg; Height 5 ft. 8 ss in. (172.72 cm); Pain 9/10; 09:01 Temp 97.4(TE); rb1 09:20 BP 138 / 92; Pulse 61; Resp 17; Pulse Ox 96% on R/A; rb1 08:20 Body Mass Index 34.97 (104.33 kg, 172.72 cm) ss MDM: 08:16 Patient medically screened. 09:27 Data reviewed: vital signs, nurses notes, lab test result(s), and as a result, I will jr8 discharge patient. Data interpreted: Pulse oximetry: on room air is 94 %. Interpretation: acceptable. Counseling: I had a detailed discussion with the patient and/or guardian regarding: the historical points, exam findings, and any diagnostic results supporting the discharge/admit diagnosis, lab results, the need for outpatient follow up, a family practitioner, to return to the emergency department if symptoms worsen or persist or if there are any questions or concerns that arise at home. 11/24 08:27 Order name: Urine Microscopic Only; Complete Time: 09:23 11/24 08:57 Order name: Urine Dipstick--Ancillary (enter results) 11/24 08:27 Order name: Urine Dipstick-Ancillary (obtain specimen); Complete Time: 08:52 [facility] 11/24 09:18 Order name: Urine Culture EDMS Administered Medications: 09:41 Drug: Gilead 10 mg-325 mg 1 tabs Route: PO; rb1 09:41 Follow up: Response: Medication administered at discharge. rb1 Disposition: 10:06 Co-signature as Attending Physician, Brodie Zheng MD. rn Disposition: 11/24/17 09:27 Discharged to Home. Impression: Pain in right shoulder, Candidal balanitis. - Condition is Stable. - Discharge Instructions: Joint Pain, Shoulder Pain, Skin Yeast Infection. - Prescriptions for Clotrimazole 1 % Topical Cream - Apply to affected area 1 application by TOPICAL route every 12 hours; 15 gram. - Medication Reconciliation Form, Thank You Letter, Antibiotic Education, Prescription Opioid Use form. - Follow up: Private Physician; When: 5 - 6 days; Reason: Recheck today's complaints, Continuance of care, Re-evaluation by your physician. - Problem is new. - Symptoms have improved. Signatures: Dispatcher [employer] EDMS Brodie Zheng MD MD rn Smirch, Shelby RN RN Juan Kelley PA PA jr8 Nicole Escobar RN RN rb1 Corrections: (The following items were deleted from the chart) 09:47 09:27 11/24/2017 09:27 Discharged to Home. Impression: Pain in right shoulder; Candidal rb1 balanitis. Condition is Stable. Forms are Medication Reconciliation Form, Thank You Letter, Antibiotic Education, Prescription Opioid Use. Follow up: Private Physician; When: 5 - 6 days; Reason: Recheck today's complaints, Continuance of care, Re-evaluation by your physician. Problem is new. Symptoms have improved. jr8
--- NOTE | 2017-11-24 09:28 | ER ---
Nurse's Notes [facility] Name: Ramirez Chaudhari Age: 52 yrs Sex: Male : 1965 Arrival Date: 11/24/2017 Time: 08:03 Bed 13 Private MD: Ramon Powers E Diagnosis: Pain in right shoulder;Candidal balanitis Presentation: 11/24 08:18 Presenting complaint: Patient states: General weakness/ fatigue x 1 day. R shoulder ss pain without injury x 3-4 days. Pt's states, "I don't know if it's his UTI coming back because he self caths or if it's the mold in our house.". Transition of care: patient was not received from another setting of care. Onset of symptoms was November 21, 2017. Risk Assessment: Do you want to hurt yourself or someone else? Patient reports no desire to harm self or others. Care prior to arrival: None. 08:18 Method Of Arrival: Wheelchair ss 08:18 Acuity: NOHEMI 3 ss 08:25 Initial Sepsis Screen: Does the patient meet any 2 criteria? No. Patient's initial rb1 sepsis screen is negative. Does the patient have a suspected source of infection? No. Patient's initial sepsis screen is negative. Triage Assessment: 08:25 General: Appears in no apparent distress. comfortable, Behavior is calm, cooperative, rb1 Reports chills for Denies fever. Pain: Complains of pain in right shoulder Pain began 3-4 days ago. Neuro: Level of Consciousness is awake, alert, obeys commands, Oriented to person, place, time, situation. Neuro: Reports weakness in generalized. Cardiovascular: Capillary refill < 3 seconds is brisk in bilateral fingers. Respiratory: Airway is patent Respiratory effort is even, unlabored, Respiratory pattern is regular, symmetrical. GI: No signs and/or symptoms were reported involving the gastrointestinal system. : Reports Thinks he has an UTI. Derm: Skin is dry, Skin is normal, Skin temperature is warm. Musculoskeletal: paralysis in lower limbs. Historical: - Allergies: 08:21 Ibuprofen; ss 08:21 metformin; ss - Home Meds: 08:25 atenolol 50 mg Oral tab 1 tab once daily [Active]; baclofen 10 mg Oral tab 1 tab twice rb1 a day [Active]; Colcrys 0.6 mg Oral tab 1 tab bid prn gout [Active]; hydrocodone-acetaminophen 10-325 mg Oral tab 1 tab three times a day [Active]; Levemir 36 units subcutaneous soln twice a day [Active]; levothyroxine 75 mcg tab 1 tab once daily [Active]; lisinopril 40 mg Oral tab 1 tab once daily [Active]; Novolog 22 units Sub-Q before meals [Active]; oxybutynin chloride 5 mg Oral tab 1 tab 3 times per day [Active]; pantoprazole 40 mg Oral grps 1 tab once daily [Active]; - PMHx: 08:21 ADD/ADHD; Diabetes - IDDM; GERD; Gout; High Cholesterol; Hydrocele Left Testicle; ss Hypertension; Hypothyroidism; Migraines; Paraplegia; Renal Disease; Spinal Stroke; - PSHx: 08:25 hydrocele; rb1 - Immunization history:: Adult Immunizations up to date. - Social history:: Smoking status: Patient/guardian denies using tobacco. - Ebola Screening: : Patient denies exposure to infectious person Patient denies travel to an Ebola-affected area in the 21 days before illness onset. Screenin:25 Abuse screen: Denies threats or abuse. Nutritional screening: No deficits noted. rb1 Tuberculosis screening: No symptoms or risk factors identified. Fall Risk No fall in past 12 months (0 pts). Secondary diagnosis (15 points) impaired mobility, No IV (0 pts). Ambulatory Aid- Crutches/Cane/Walker (15 pts). Gait- Impaired (20 pts.). Mental Status- Oriented to own ability (0 pts). Total Valera Fall Scale indicates High Risk Score (45 or more points). Fall prevention measures have been instituted. Side Rails Up X 2 Placed Close to Nursing Station 1:1 Attendant Assigned Frequent Obs/Assessments Occuring Family Present and informed to notify staff if the need to leave the bedside As available patient and family educated on Fall Prevention Program and Strategies. Assessment: 08:25 General: See triage assessment. rb1 09:17 Reassessment: Patient appears in no apparent distress at this time. No changes from rb1 previously documented assessment. is at bedside. Vital Signs: 08:20 BP 156 / 91; Pulse 77; Resp 16; Pulse Ox 93% on R/A; Weight 104.33 kg; Height 5 ft. 8 ss in. (172.72 cm); Pain 9/10; 09:01 Temp 97.4(TE); rb1 09:20 BP 138 / 92; Pulse 61; Resp 17; Pulse Ox 96% on R/A; rb1 08:20 Body Mass Index 34.97 (104.33 kg, 172.72 cm) ED Course: 08:03 Patient arrived in ED. sb2 08:04 Ramon Powers MD is Private Physician. sb2 08:16 [facility] jr8 08:16 Brodie Zheng MD is Attending Physician. jr8 08:19 Triage completed. ss 08:20 Arm band placed on right wrist. ss 08:25 Patient has correct armband on for positive identification. Bed in low position. Call rb1 light in reach. Side rails up X 1. Pulse ox on. NIBP on. Warm blanket given. 08:38 Nicole Escobar, RN is Primary Nurse. rb1 09:20 No provider procedures requiring assistance completed. Patient did not have IV access rb1 during this emergency room visit. Administered Medications: 09:41 Drug: Tiller 10 mg-325 mg 1 tabs Route: PO; rb1 09:41 Follow up: Response: Medication administered at discharge. rb1 Outcome: 09:27 Discharge ordered by . jr8 09:43 Discharged to home via wheelchair, with family. rb1 09:43 Condition: stable 09:43 Discharge instructions given to patient, Instructed on discharge instructions, follow up and referral plans. medication usage, Demonstrated understanding of instructions, follow-up care, medications, Prescriptions given X 1. 09:47 Patient left the ED. rb1 Signatures: Autumn Marroquin RN RN Juan Esquivel PA PA jr8 Nicole Escobar, RN RN [facility] Shayna Almeida sb2
[2017-11-24] MEDS ORDERED: HYDROCODONE/APAP 10/325 TAB ONE (09:41)
[2017-11-24 09:52] VITALS: TEMP 97.4
[2017-11-24 09:53] VITALS: BP 138/92; O2SAT 96
[2017-11-24 21:57] LABS: Urine Blood 1+ (NEG); Urine Glucose 2+ (NEG); Urine Protein 1+ (NEG); Urine pH 5.5 (5.0-7.0)
== END 2017-11-24 09:47 | disposition home or self-care (01) ==
LOC: ER 08:01
DX: B37.42 Candidal balanitis (principal); M25.511 Pain in right shoulder; I10 Essential (primary) hypertension; E11.9 Type 2 diabetes mellitus without complications; E03.9 Hypothyroidism, unspecified; E78.00 Pure hypercholesterolemia, unspecified; N28.9 Disorder of kidney and ureter, unspecified; Z79.4 Long term (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; Z88.6 Allergy status to analgesic agent; Z88.8 Allergy status to other drugs, medicaments and biological substances
CPT/HCPCS: 81003; 81015; 87086; 87088; 99283

== ENCOUNTER 2018-01-10 10:30 | Emergency (ER) | payer OTHER ==
--- OUTSIDE RECORDS SUMMARY | 2018-01-10 10:32 | XMS REPORT ---
:1965 Author Organization [facility] Address [address] [place] [address] Care Team Providers Name Role Phone FAITH GOMEZ Unavailable Unavailable Problems This patient has no known problems. Allergies, Adverse Reactions, Alerts This patient has no known allergies or adverse reactions. Medications This patient has no known medications. Results Test Description Test Time Test Comments Text Results Atomic Results Result Comments BLOOD CULTURE 2016-07-07 14:28:00 Test Item Value Reference Range Comments CULTURE (BEAKER) (test kyif=3940) No growth in 5 days POCT-GLUCOSE [id number] 12:04:00 Test Item Value Reference Range Comments POC-GLUCOSE METER (BEAKER) 179 mg/dL 70-110 TESTED AT [facility] [address] [facility] (test dmzz=4673) [facility] [address] BASIC METABOLIC [id number] 09:51:00 Test Item Value Reference Range Comments SODIUM (BEAKER) (test 137 meq/L 136-145 neci=081) POTASSIUM (BEAKER) (test 3.7 meq/L 3.5-5.1 bwbb=628) CHLORIDE (BEAKER) (test 102 meq/L 98-107 ecgb=417) CO2 (BEAKER) (test 25 meq/L 22-29 lwcu=105) BLOOD UREA NITROGEN 17 mg/dL 7-21 (BEAKER) (test dwfb=681) CREATININE (BEAKER) (test 1.04 mg/dL 0.57-1.25 lecj=740) GLUCOSE RANDOM (BEAKER) 195 mg/dL 70-105 (test nywt=441) CALCIUM (BEAKER) (test 9.2 mg/dL 8.4-10.2 kmpn=687) EGFR (BEAKER) (test 76 mL/min/1.73 sq m ESTIMATED GFR IS NOT ikdt=5682) ACCURATE CREATININE CLEARANCE IN PREDICTING GLOMERULAR FILTRATION RATE. ESTIMATED GFR IS NOT APPLICABLE FOR DIALYSIS PATIENTS. CBC W/PLT COUNT & AUTO [id number] 09:20:00 Test Item Value Reference Range Comments WHITE BLOOD CELL COUNT (BEAKER) (test latv=139) 6.1 K/ L 4.0-10.0 RED BLOOD CELL COUNT (BEAKER) (test ekvq=481) 4.63 M/ L 4.20-5.80 HEMOGLOBIN (BEAKER) (test irmg=188) 13.7 GM/DL 13.0-16.8 HEMATOCRIT (BEAKER) (test fjsz=785) 39.8 % 40.0-50.0 MEAN CORPUSCULAR VOLUME (BEAKER) (test xhzh=387) 85.9 fL 82.0-98.0 MEAN CORPUSCULAR HEMOGLOBIN (BEAKER) (test 29.6 pg 27.0-33.0 xnoa=940) MEAN CORPUSCULAR HEMOGLOBIN CONC (BEAKER) (test 34.5 GM/DL 32.0-36.0 xvvl=957) RED CELL DISTRIBUTION WIDTH (BEAKER) (test 14.8 % 10.3-14.2 akji=729) PLATELET COUNT (BEAKER) (test vfsm=501) 143 K/CU MM 150-430 MEAN PLATELET VOLUME (BEAKER) (test vsld=929) 8.6 fL 6.5-10.5 NUCLEATED RED BLOOD CELLS (BEAKER) (test 0 /100 WBC 0-0 iaph=445) NEUTROPHILS RELATIVE PERCENT (BEAKER) (test 71 % mypm=993) LYMPHOCYTES RELATIVE PERCENT (BEAKER) (test 20 % axws=698) MONOCYTES RELATIVE PERCENT (BEAKER) (test 5 % potk=347) EOSINOPHILS RELATIVE PERCENT (BEAKER) (test 3 % cjsg=144) BASOPHILS RELATIVE PERCENT (BEAKER) (test 1 % pqbp=587) NEUTROPHILS ABSOLUTE COUNT (BEAKER) (test 4.31 K/ L 1.80-8.00 lzdo=276) LYMPHOCYTES ABSOLUTE COUNT (BEAKER) (test 1.23 K/ L 1.48-4.50 xewq=460) MONOCYTES ABSOLUTE COUNT (BEAKER) (test 0.28 K/ L 0.00-1.30 fhvy=485) EOSINOPHILS ABSOLUTE COUNT (BEAKER) (test 0.21 K/ L 0.00-0.50 oxhl=307) BASOPHILS ABSOLUTE COUNT (BEAKER) (test 0.03 K/ L 0.00-0.20 svwq=331) 0.00POCT-GLUCOSE [id number] 07:15:00 Test Item Value Reference Range Comments POC-GLUCOSE METER (BEAKER) 246 mg/dL 70-110 TESTED AT [address] (test vcjd=8736) [place] [address] POCT-GLUCOSE [id number] 21:12:00 Test Item Value Reference Range Comments POC-GLUCOSE METER (BEAKER) 89 mg/dL 70-110 TESTED AT [address] (test kwxb=1917) [place] [address] POCT-GLUCOSE [id number] 17:12:00 Test Item Value Reference Range Comments POC-GLUCOSE METER (BEAKER) 217 mg/dL 70-110 TESTED AT [address] (test pswy=6332) [place] [address] URINE [id number] 12:07:00 Test Item Value Reference Range Comments CULTURE (BEAKER) (test wuvo=1957) <10,000 col/mL skin candi POCT-GLUCOSE [id number] 11:30:00 Test Item Value Reference Range Comments POC-GLUCOSE METER (BEAKER) 205 mg/dL 70-110 TESTED AT [address] (test yuyh=3188) [place] [address] POCT-GLUCOSE [id number] 07:36:00 Test Item Value Reference Range Comments POC-GLUCOSE METER (BEAKER) 195 mg/dL 70-110 TESTED AT [address] (test joow=4043) [place] [address] CBC W/PLT COUNT & AUTO [id number] 05:14:00 Test Item Value Reference Range Comments WHITE BLOOD CELL COUNT (BEAKER) (test tksr=478) 6.7 K/ L 4.0-10.0 RED BLOOD CELL COUNT (BEAKER) (test mtzj=793) 4.40 M/ L 4.20-5.80 HEMOGLOBIN (BEAKER) (test tyjg=425) 13.3 GM/DL 13.0-16.8 HEMATOCRIT (BEAKER) (test zzfr=834) 38.2 % 40.0-50.0 MEAN CORPUSCULAR VOLUME (BEAKER) (test ecfk=638) 86.8 fL 82.0-98.0 MEAN CORPUSCULAR HEMOGLOBIN (BEAKER) (test 30.1 pg 27.0-33.0 cefi=824) MEAN CORPUSCULAR HEMOGLOBIN CONC (BEAKER) (test 34.7 GM/DL 32.0-36.0 flxq=851) RED CELL DISTRIBUTION WIDTH (BEAKER) (test 14.7 % 10.3-14.2 qmzd=750) PLATELET COUNT (BEAKER) (test tiiq=167) 144 K/CU MM 150-430 MEAN PLATELET VOLUME (BEAKER) (test sgnk=171) 9.0 fL 6.5-10.5 NUCLEATED RED BLOOD CELLS (BEAKER) (test 0 /100 WBC 0-0 uqqe=810) NEUTROPHILS RELATIVE PERCENT (BEAKER) (test 67 % pqss=795) LYMPHOCYTES RELATIVE PERCENT (BEAKER) (test 25 % ochd=378) MONOCYTES RELATIVE PERCENT (BEAKER) (test 5 % fntl=326) EOSINOPHILS RELATIVE PERCENT (BEAKER) (test 2 % raem=580) BASOPHILS RELATIVE PERCENT (BEAKER) (test 0 % ivet=990) NEUTROPHILS ABSOLUTE COUNT (BEAKER) (test 4.52 K/ L 1.80-8.00 lowj=189) LYMPHOCYTES ABSOLUTE COUNT (BEAKER) (test 1.70 K/ L 1.48-4.50 imwm=684) MONOCYTES ABSOLUTE COUNT (BEAKER) (test 0.32 K/ L 0.00-1.30 sczc=732) EOSINOPHILS ABSOLUTE COUNT (BEAKER) (test 0.16 K/ L 0.00-0.50 eult=102) BASOPHILS ABSOLUTE COUNT (BEAKER) (test 0.03 K/ L 0.00-0.20 zsgm=435) 0.00BASI METABOLIC [id number] 05:14:00 Test Item Value Reference Range Comments SODIUM (BEAKER) (test 134 meq/L 136-145 uise=051) POTASSIUM (BEAKER) (test 4.2 meq/L 3.5-5.1 opik=501) CHLORIDE (BEAKER) (test 101 meq/L 98-107 mypw=337) CO2 (BEAKER) (test 24 meq/L 22-29 sftr=014) BLOOD UREA NITROGEN 20 mg/dL 7-21 (BEAKER) (test hcwi=053) CREATININE (BEAKER) (test 1.16 mg/dL 0.57-1.25 fhno=344) GLUCOSE RANDOM (BEAKER) 216 mg/dL 70-105 (test wkxg=251) CALCIUM (BEAKER) (test 8.8 mg/dL 8.4-10.2 tzla=605) EGFR (BEAKER) (test 67 mL/min/1.73 sq m ESTIMATED GFR IS NOT ffav=0926) ACCURATE CREATININE CLEARANCE IN PREDICTING GLOMERULAR FILTRATION RATE. ESTIMATED GFR IS NOT APPLICABLE FOR DIALYSIS PATIENTS. POCT-GLUCOSE [id number] 21:04:00 Test Item Value Reference Range Comments POC-GLUCOSE METER (BEAKER) 178 mg/dL 70-110 TESTED AT [address] (test oquz=5042) [place] [id number] POCT-GLUCOSE [id number] 17:07:00 Test Item Value Reference Range Comments POC-GLUCOSE METER (BEAKER) 88 mg/dL 70-110 TESTED AT [address] (test egur=4186) [place] [id number] POCT-GLUCOSE [id number] 12:30:00 Test Item Value Reference Range Comments POC-GLUCOSE METER (BEAKER) 107 mg/dL 70-110 TESTED AT [address] (test yjoc=3515) [place] [id number] POCT-GLUCOSE [id number] 07:46:00 Test Item Value Reference Range Comments POC-GLUCOSE METER (BEAKER) 169 mg/dL 70-110 TESTED AT [address] (test lxxi=1979) [place] [address] CBC W/PLT COUNT & AUTO [id number] 07:42:00 Test Item Value Reference Range Comments WHITE BLOOD CELL COUNT (BEAKER) (test chmc=040) 6.5 K/ L 4.0-10.0 RED BLOOD CELL COUNT (BEAKER) (test idvf=657) 4.57 M/ L 4.20-5.80 HEMOGLOBIN (BEAKER) (test pzbd=821) 13.4 GM/DL 13.0-16.8 HEMATOCRIT (BEAKER) (test wher=565) 40.4 % 40.0-50.0 MEAN CORPUSCULAR VOLUME (BEAKER) (test yzgd=719) 88.3 fL 82.0-98.0 MEAN CORPUSCULAR HEMOGLOBIN (BEAKER) (test 29.3 pg 27.0-33.0 rxsv=145) MEAN CORPUSCULAR HEMOGLOBIN CONC (BEAKER) (test 33.2 GM/DL 32.0-36.0 ishh=468) RED CELL DISTRIBUTION WIDTH (BEAKER) (test 13.8 % 10.3-14.2 knxp=603) PLATELET COUNT (BEAKER) (test eyng=638) 150 K/CU MM 150-430 MEAN PLATELET VOLUME (BEAKER) (test etyw=947) 9.0 fL 6.5-10.5 NUCLEATED RED BLOOD CELLS (BEAKER) (test 0 /100 WBC 0-0 ynoj=863) NEUTROPHILS RELATIVE PERCENT (BEAKER) (test 64 % gkbm=357) LYMPHOCYTES RELATIVE PERCENT (BEAKER) (test 26 % detv=961) MONOCYTES RELATIVE PERCENT (BEAKER) (test 7 % pnzp=827) EOSINOPHILS RELATIVE PERCENT (BEAKER) (test 3 % nwal=166) BASOPHILS RELATIVE PERCENT (BEAKER) (test 0 % bjsd=223) NEUTROPHILS ABSOLUTE COUNT (BEAKER) (test 4.13 K/ L 1.80-8.00 yqpj=024) LYMPHOCYTES ABSOLUTE COUNT (BEAKER) (test 1.66 K/ L 1.48-4.50 dhwu=074) MONOCYTES ABSOLUTE COUNT (BEAKER) (test 0.44 K/ L 0.00-1.30 tyeq=720) EOSINOPHILS ABSOLUTE COUNT (BEAKER) (test 0.21 K/ L 0.00-0.50 qkmn=739) BASOPHILS ABSOLUTE COUNT (BEAKER) (test 0.03 K/ L 0.00-0.20 jjib=450) 0.00BASIC METABOLIC [id number] 06:13:00 Test Item Value Reference Range Comments SODIUM (BEAKER) (test 136 meq/L 136-145 yojj=834) POTASSIUM (BEAKER) (test 3.6 meq/L 3.5-5.1 loqe=951) CHLORIDE (BEAKER) (test 101 meq/L 98-107 naab=925) CO2 (BEAKER) (test 25 meq/L 22-29 gzfd=779) BLOOD UREA NITROGEN 18 mg/dL 7-21 (BEAKER) (test fiki=493) CREATININE (BEAKER) (test 1.07 mg/dL 0.57-1.25 tnhz=568) GLUCOSE RANDOM (BEAKER) 188 mg/dL 70-105 (test igxz=524) CALCIUM (BEAKER) (test 8.8 mg/dL 8.4-10.2 lvud=805) EGFR (BEAKER) (test 73 mL/min/1.73 sq m ESTIMATED GFR IS NOT axdj=9637) ACCURATE CREATININE CLEARANCE IN PREDICTING GLOMERULAR FILTRATION RATE. ESTIMATED GFR IS NOT APPLICABLE FOR DIALYSIS PATIENTS. POCT-GLUCOSE [id number] 22:12:00 Test Item Value Reference Range Comments POC-GLUCOSE METER (BEAKER) 238 mg/dL 70-110 TESTED AT [place] [id number] [facility] (test ijjz=3689) [facility] [address] POCT-GLUCOSE [id number] 17:25:00 Test Item Value Reference Range Comments POC-GLUCOSE METER (BEAKER) 102 mg/dL 70-110 TESTED AT [address] (test upem=7924) [facility] [address] URINALYSIS W/ [id number] 12:50:00 Test Item Value Reference Range Comments COLOR (BEAKER) (test tqeh=684) Colorless CLARITY (BEAKER) (test bici=198) Clear SPECIFIC GRAVITY UA (BEAKER) (test bmjr=177) 1.002 1.001-1.035 PH UA (BEAKER) (test ospc=229) 6.5 5.0-8.0 PROTEIN UA (BEAKER) (test apoc=302) Negative Negative GLUCOSE UA (BEAKER) (test fytc=956) Negative Negative KETONES UA (BEAKER) (test nbgg=068) Negative Negative BILIRUBIN UA (BEAKER) (test igzs=119) Negative Negative BLOOD UA (BEAKER) (test ewxm=495) Negative Negative NITRITE UA (BEAKER) (test jepr=252) Negative Negative LEUKOCYTE ESTERASE UA (BEAKER) (test xutc=575) Negative Negative UROBILINOGEN UA (BEAKER) (test bqsk=043) 0.2 mg/dL 0.2-1.0 RBC UA (BEAKER) (test qnyb=775) 0 /HPF WBC UA (BEAKER) (test ncwk=070) < /HPF SOURCE(BEAKER) (test gsse=5416) POCT-GLUCOSE [id number] 12:04:00 Test Item Value Reference Range Comments POC-GLUCOSE METER (BEAKER) 226 mg/dL 70-110 TESTED AT [facility] [address] [facility] (test ldsa=2855) [facility] [address] POCT-GLUCOSE [id number] 08:00:00 Test Item Value Reference Range Comments POC-GLUCOSE METER (BEAKER) 300 mg/dL 70-110 TESTED AT [facility] [address] [facility] (test cfsz=4225) [facility] [address] BASIC METABOLIC [id number] 06:50:00 Test Item Value Reference Range Comments SODIUM (BEAKER) (test 134 meq/L 136-145 evci=307) POTASSIUM (BEAKER) (test 4.0 meq/L 3.5-5.1 dcur=382) CHLORIDE (BEAKER) (test 98 meq/L 98-107 bxrp=115) CO2 (BEAKER) (test 26 meq/L 22-29 psoy=762) BLOOD UREA NITROGEN 18 mg/dL 7-21 (BEAKER) (test juhn=333) CREATININE (BEAKER) (test 1.25 mg/dL 0.57-1.25 bdux=197) GLUCOSE RANDOM (BEAKER) 349 mg/dL 70-105 (test xqll=153) CALCIUM (BEAKER) (test 8.9 mg/dL 8.4-10.2 phzx=207) EGFR (BEAKER) (test 61 mL/min/1.73 sq m ESTIMATED GFR IS NOT yqgf=6658) ACCURATE CREATININE CLEARANCE IN PREDICTING GLOMERULAR FILTRATION RATE. ESTIMATED GFR IS NOT APPLICABLE FOR DIALYSIS PATIENTS. CBC W/PLT COUNT & AUTO [id number] 06:01:00 Test Item Value Reference Range Comments WHITE BLOOD CELL COUNT (BEAKER) (test uihb=699) 6.6 K/ L 4.0-10.0 RED BLOOD CELL COUNT (BEAKER) (test cazj=925) 4.79 M/ L 4.20-5.80 HEMOGLOBIN (BEAKER) (test mgox=735) 14.1 GM/DL 13.0-16.8 HEMATOCRIT (BEAKER) (test oqne=457) 42.0 % 40.0-50.0 MEAN CORPUSCULAR VOLUME (BEAKER) (test kneg=713) 87.7 fL 82.0-98.0 MEAN CORPUSCULAR HEMOGLOBIN (BEAKER) (test 29.5 pg 27.0-33.0 zfes=359) MEAN CORPUSCULAR HEMOGLOBIN CONC (BEAKER) (test 33.6 GM/DL 32.0-36.0 oxcb=235) RED CELL DISTRIBUTION WIDTH (BEAKER) (test 14.9 % 10.3-14.2 qxlq=122) PLATELET COUNT (BEAKER) (test abom=198) 157 K/CU MM 150-430 MEAN PLATELET VOLUME (BEAKER) (test efjg=797) 9.0 fL 6.5-10.5 NUCLEATED RED BLOOD CELLS (BEAKER) (test 0 /100 WBC 0-0 tnkt=287) NEUTROPHILS RELATIVE PERCENT (BEAKER) (test 67 % vfzy=045) LYMPHOCYTES RELATIVE PERCENT (BEAKER) (test 23 % enrc=174) MONOCYTES RELATIVE PERCENT (BEAKER) (test 7 % rfvs=083) EOSINOPHILS RELATIVE PERCENT (BEAKER) (test 3 % qiix=179) BASOPHILS RELATIVE PERCENT (BEAKER) (test 0 % kctw=001) NEUTROPHILS ABSOLUTE COUNT (BEAKER) (test 4.44 K/ L 1.80-8.00 vdmp=720) LYMPHOCYTES ABSOLUTE COUNT (BEAKER) (test 1.51 K/ L 1.48-4.50 egrd=028) MONOCYTES ABSOLUTE COUNT (BEAKER) (test 0.43 K/ L 0.00-1.30 ohtd=341) EOSINOPHILS ABSOLUTE COUNT (BEAKER) (test 0.21 K/ L 0.00-0.50 bjka=672) BASOPHILS ABSOLUTE COUNT (BEAKER) (test 0.03 K/ L 0.00-0.20 weue=252) 0.00POCT-GLUCOSE [id number] 21:25:00 Test Item Value Reference Range Comments POC-GLUCOSE METER (BEAKER) 279 mg/dL 70-110 TESTED AT [facility] [address] [facility] (test avkz=8340) [facility] [address] HEMOGLOBIN [id number] 21:13:00 Test Item Value Reference Range Comments HEMOGLOBIN A1C (BEAKER) (test gaez=728) 10.7 % 4.3-6.1 CBC W/PLT COUNT & AUTO [id number] 20:47:00 Test Item Value Reference Range Comments WHITE BLOOD CELL COUNT (BEAKER) (test fdpa=200) 7.3 K/ L 4.0-10.0 RED BLOOD CELL COUNT (BEAKER) (test ocvr=746) 5.25 M/ L 4.20-5.80 HEMOGLOBIN (BEAKER) (test tavm=344) 15.7 GM/DL 13.0-16.8 HEMATOCRIT (BEAKER) (test epyz=515) 46.0 % 40.0-50.0 MEAN CORPUSCULAR VOLUME (BEAKER) (test holo=300) 87.7 fL 82.0-98.0 MEAN CORPUSCULAR HEMOGLOBIN (BEAKER) (test 30.0 pg 27.0-33.0 xtta=333) MEAN CORPUSCULAR HEMOGLOBIN CONC (BEAKER) (test 34.2 GM/DL 32.0-36.0 ocvz=225) RED CELL DISTRIBUTION WIDTH (BEAKER) (test 13.8 % 10.3-14.2 udwf=190) PLATELET COUNT (BEAKER) (test auga=572) 166 K/CU MM 150-430 MEAN PLATELET VOLUME (BEAKER) (test ccpj=254) 8.3 fL 6.5-10.5 NUCLEATED RED BLOOD CELLS (BEAKER) (test 0 /100 WBC 0-0 nrxg=679) NEUTROPHILS RELATIVE PERCENT (BEAKER) (test 69 % bbxu=662) LYMPHOCYTES RELATIVE PERCENT (BEAKER) (test 22 % ajtt=847) MONOCYTES RELATIVE PERCENT (BEAKER) (test 5 % geut=423) EOSINOPHILS RELATIVE PERCENT (BEAKER) (test 3 % fbnr=312) BASOPHILS RELATIVE PERCENT (BEAKER) (test 0 % pjwt=655) NEUTROPHILS ABSOLUTE COUNT (BEAKER) (test 5.04 K/ L 1.80-8.00 rrdn=912) LYMPHOCYTES ABSOLUTE COUNT (BEAKER) (test 1.63 K/ L 1.48-4.50 wycx=059) MONOCYTES ABSOLUTE COUNT (BEAKER) (test 0.40 K/ L 0.00-1.30 iohi=783) EOSINOPHILS ABSOLUTE COUNT (BEAKER) (test 0.22 K/ L 0.00-0.50 raxa=942) BASOPHILS ABSOLUTE COUNT (BEAKER) (test 0.01 K/ L 0.00-0.20 qxoj=297) 0.00POCT-GLUCOSE [id number] 18:31:00 Test Item Value Reference Range Comments POC-GLUCOSE METER (BEAKER) 205 mg/dL 70-110 TESTED AT [facility] [address] [facility] (test laqg=[id number]) [facility] [id number]
--- OUTSIDE RECORDS SUMMARY | 2018-01-10 10:32 | XMS REPORT | Clinical Summary ---
:1965 Author Organization [facility] Address [address] [place] [address] Care Team Providers Name Role Phone Unavailable Primary Care Provider Unavailable Allergies Active Allergy Reactions Severity Noted Date Comments Ibuprofen 06/30/2016 Kidney problems Metformin 06/30/2016 Kidney problems Medications Medication Sig Dispensed Refills Start End Date Status Date atenolol (TENORMIN) 50 Take 50 mg by 0 Active MG tablet mouth daily. oxybutynin (DITROPAN) 5 Take 5 mg by mouth 0 Active MG tablet 3 (three) times daily. pantoprazole (PROTONIX) Take 40 mg by 0 Active 40 MG tablet mouth daily Before breakfast . levothyroxine Take 75 mcg by 0 Active (SYNTHROID, LEVOTHROID) mouth Every 75 MCG tablet morning on an empty stomach. insulin detemir Inject 36 Units 0 Active (LEVEMIR) 100 unit/mL (3 subcutaneously 2 mL) InPn injection (two) times daily pen . insulin lispro (HUMALOG) Inject 20 Units 0 Active 100 unit/mL injection subcutaneously 3 (three) times daily before meals Sliding scale starts at 20 units . colchicine (COLCRYS) 0.6 Take 0.6 mg by 0 Active mg tablet mouth 2 (two) times daily as needed As needed for gout . hydroCHLOROthiazide Take 0.5 tablets 15 tablet 11 07/04/19 (HYDRODIURIL) 25 MG (12.5 mg total) by 7 18 tablet mouth daily. hydroCHLOROthiazide Take 2 tablets (25 60 tablet 0 07/04/07/05/19 (HYDRODIURIL) 12.5 MG mg total) by mouth 7 18 tablet daily. lisinopril Take 1 tablet (40 30 tablet 0 07/04/07/05/19 (PRINIVIL,ZESTRIL) 40 MG mg total) by mouth 7 18 tablet daily. amLODIPine (NORVASC) 10 Take 1 tablet (10 30 tablet 0 07/06/19 MG tablet mg total) by mouth 7 18 daily. Active Problems Problem Noted Date Epididymitis, left 06/30/2016 DM2 (diabetes mellitus, type 2) 06/30/2016 HTN (hypertension) 06/30/2016 Hypothyroid 06/30/2016 Family History Medical History Relation Name Comments Kidney disease Brother Diabetes Mother Diabetes Sister Relation Name Status Comments Brother Mother Sister Social History Tobacco Use Types Packs/Day Years Used Date Former Smoker Smokeless Tobacco: Former User Quit: 06/30/1986 Alcohol Use Drinks/Week oz/Week Comments No Sex Assigned at Date Recorded Not on file Job Start Date Occupation Industry Not on file Not on file Not on file Travel History Travel Start Travel End No recent travel history available. Last Filed Vital Signs Not on file Plan of Treatment Not on file Results Not on fileafter 01/09/2017 Insurance Payer Benefit Plan / Group Subscriber ID Type Phone Address [facility] xxxxxxxxx Maps Contracted Advance Directives For more information, please contact:[address] [phone] Code Status Date Activated Date Inactivated Comments Full Code 06/30/2016 7:46 PM 07/04/2016 5:23 PM This code status was determined by: Patient
--- NOTE | 2018-01-10 11:46 | RAD REPORT ---
EXAM DESCRIPTION: RAD - Chest Pa And Lat (2 Views) - 01/10/2018 11:41 am CLINICAL HISTORY: Cough and congestion, smoking history COMPARISON: May 13, 2017 TECHNIQUE: PA and lateral views of the chest were obtained. FINDINGS: The lungs are underinflated. No consolidations seen. Lung markings are not clearly differe nt from comparison. Heart size is normal and central vasculature is within normal limits. No pleur al effusion or pneumothorax seen. No acute bony finding noted. No aortic abnormality. IMPRESSION: No acute cardiopulmonary process. Shallow inspiration and baseline interstitial prominence could mask early interstitial edema or infil trate.
--- NOTE | 2018-01-10 12:55 | ER ---
Nurse's Notes [facility] Name: Ramirez Chaudhari Age: 52 yrs Sex: Male : 1965 Arrival Date: 01/10/2018 Time: 10:32 Bed 19 Private MD: Ramon Powers E Diagnosis: Acute bronchitis Presentation: 01/10 10:38 Presenting complaint: Patient states: Cough since Thursday, I taste salt in my mouth all la1 the time and subjective fever at home. Transition of care: patient was not received from another setting of care. Onset of symptoms was January 10, 2018. Risk Assessment: Do you want to hurt yourself or someone else? Patient reports no desire to harm self or others. Initial Sepsis Screen: Does the patient meet any 2 criteria? No. Patient's initial sepsis screen is negative. Does the patient have a suspected source of infection? No. Patient's initial sepsis screen is negative. Care prior to arrival: None. 10:38 Method Of Arrival: Wheelchair la1 10:38 Acuity: NOHEMI 3 la1 Historical: - Allergies: 10:38 Ibuprofen; la1 10:38 metformin; la1 - PMHx: 10:38 ADD/ADHD; Diabetes - IDDM; GERD; Gout; High Cholesterol; Hydrocele Left Testicle; la1 Hypertension; Hypothyroidism; Migraines; Paraplegia; Renal Disease; Spinal Stroke; - Immunization history:: Adult Immunizations up to date. - Social history:: Smoking status: Patient/guardian denies using tobacco. - Ebola Screening: : No symptoms or risks identified at this time. Screenin:32 Abuse screen: Denies threats or abuse. Nutritional screening: No deficits noted. em Tuberculosis screening: No symptoms or risk factors identified. Fall Risk None identified. Assessment: 11:21 General: Appears uncomfortable, well developed, well nourished, Behavior is em cooperative, Reports fever for. Pain: Complains of pain in chest. Neuro: Level of Consciousness is awake, alert, obeys commands, Oriented to person, place, time, situation, Paralysis from waist down. Cardiovascular: Capillary refill < 3 seconds Patient's skin is warm and dry. Respiratory: Airway is patent Respiratory effort is even, unlabored, Respiratory pattern is regular, symmetrical, Breath sounds are diminished in left posterior lower lobe and right posterior lower lobe. GI: Abdomen is round non-distended, Pt is actively vomiting. : 3-way catheter in place to gravity drainage. EENT: No signs and/or symptoms were reported regarding the EENT system. Derm: Skin is intact, Skin is pink, warm \T\ dry. Musculoskeletal: Range of motion: limited in left hip, left knee, left ankle, right hip, right knee and right ankle. 11:30 Reassessment: Patient appears in no apparent distress at this time. transported to em radiology dept. via stretcher. 11:30 General: The previous assessment is accurate, call light remains within reach. ss 12:25 Reassessment: Patient appears in no apparent distress at this time. Patient and/or em family updated on plan of care and expected duration. Pain level reassessed. Patient is alert, oriented x 3, equal unlabored respirations, skin warm/dry/pink. Patient states symptoms have improved. Vital Signs: 10:40 Pulse 86; Resp 18; Temp 97.3; Pulse Ox 97% ; la1 10:41 BP 169 / 93; Weight 106.59 kg; la1 12:18 BP 145 / 93; Pulse 110; Resp 22; Pulse Ox 91% on R/A; em 13:04 BP 142 / 77; Pulse 106; Resp 18; Pulse Ox 96% on R/A; Pain 4/10; em ED Course: 10:32 Patient arrived in ED. as 10:33 Ramon Powers MD is Private Physician. as 10:35 Florin Danielle PA is PHCP. jmm 10:35 Maged Dao MD is Attending Physician. jmm 10:38 Arm band placed on left wrist. la1 10:39 Triage completed. la1 10:48 Owen Horn LVN is Primary Nurse. em 11:30 Patient moved to radiology via stretcher. tm4 11:32 Patient has correct armband on for positive identification. Bed in low position. Call em light in reach. 11:35 X-ray completed. Patient tolerated procedure well. tm4 11:36 Chest Pa And Lat (2 Views) XRAY In Process Unspecified. EDMS 12:54 Ramon Powers MD is Referral Physician. jmm 13:04 No provider procedures requiring assistance completed. Patient did not have IV access em during this emergency room visit. Administered Medications: 11:15 Drug: DuoNeb (3:1) (2.5 mg - 0.5 mg) 3 ml Route: Nebulizer; em 12:10 Follow up: Response: No adverse reaction; Marked relief of symptoms em 11:15 Drug: Zofran 4 mg Route: PO; em 11:48 Follow up: Response: No adverse reaction; Nausea is decreased em 11:51 Drug: [place] 5 mg-325 mg 1 tabs Route: PO; em Outcome: 12:55 Discharge ordered by . tatyana 13:04 Discharged to home via wheelchair, with family. em 13:04 Condition: good 13:04 Discharge instructions given to patient, family, Instructed on discharge instructions, follow up and referral plans. medication usage, Demonstrated understanding of instructions, follow-up care, medications, Prescriptions given X 3. 13:07 Patient left the ED. em Signatures: Dispatcher [employer] EDFlorin Flores PA PA jmm Marroquin, Tracy tm4 Owen Horn, PHARMACY SPECIALIST PHARMACY SPECIALIST em Geraldine Schmitz Shelby RN RN James Thomas RN RN la1
--- NOTE | 2018-01-10 12:55 | EDPHYS ---
Physician Documentation [facility] Name: Ramirez Chaudhari Age: 52 yrs Sex: Male : 1965 Arrival Date: 01/10/2018 Time: 10:32 Bed 19 Private MD: Ramon Powers E ED Physician Maged Dao HPI: 01/10 10:57 This 52 yrs old Male presents to ER via Wheelchair with complaints of Cough. jmm 10:57 The patient or guardian reports cough. Onset: The symptoms/episode began/occurred jmm gradually, 2 day(s) ago. Associated signs and symptoms: Pertinent positives:. Patient complains of cough, congestion, taste of salt in his mouth for approx 2 days. had similar symptoms beginning approx 1 week ago. Complains of chills. . Historical: - Allergies: 10:38 Ibuprofen; la1 10:38 metformin; la1 - PMHx: 10:38 ADD/ADHD; Diabetes - IDDM; GERD; Gout; High Cholesterol; Hydrocele Left Testicle; la1 Hypertension; Hypothyroidism; Migraines; Paraplegia; Renal Disease; Spinal Stroke; - Immunization history:: Adult Immunizations up to date. - Social history:: Smoking status: Patient/guardian denies using tobacco. - Ebola Screening: : No symptoms or risks identified at this time. ROS: 10:57 Eyes: Negative for injury, pain, redness, and discharge. jmm 10:57 Neck: Negative for injury, pain, and swelling, Cardiovascular: Negative for chest pain, palpitations, and edema. 10:57 Constitutional: Positive for body aches, chills. 10:57 ENT: Positive for sinus congestion. 10:57 Respiratory: Positive for cough. 10:57 All other systems are negative. Exam: 10:57 Constitutional: This is a well developed, well nourished patient who is awake, alert, jmm and in no acute distress. Head/Face: atraumatic. 10:57 Neck: Trachea midline, Supple Chest/axilla: Normal chest wall appearance and motion. 10:57 ENT: Posterior pharynx: erythema, that is mild. 10:57 Cardiovascular: Rate: normal, Rhythm: regular. 10:57 Respiratory: the patient does not display signs of respiratory distress, Respirations: normal, Breath sounds: are clear throughout. 10:57 Abdomen/GI: Inspection: abdomen appears normal, Bowel sounds: normal. 10:57 Back: ROM is normal. 10:57 Musculoskeletal/extremity: ROM: intact in all extremities. 10:57 Skin: Appearance: Color: normal in color. 10:57 Neuro: Orientation: is normal, Mentation: is normal, Memory: is normal. 10:57 Psych: Behavior/mood is pleasant, cooperative. Vital Signs: 10:40 Pulse 86; Resp 18; Temp 97.3; Pulse Ox 97% ; la1 10:41 BP 169 / 93; Weight 106.59 kg; la1 12:18 BP 145 / 93; Pulse 110; Resp 22; Pulse Ox 91% on R/A; em 13:04 BP 142 / 77; Pulse 106; Resp 18; Pulse Ox 96% on R/A; Pain 4/10; em MDM: 10:57 Patient medically screened. [facility] 12:51 Data reviewed: vital signs, nurses notes. Counseling: I had a detailed discussion with tatyana the patient and/or guardian regarding: the historical points, exam findings, and any diagnostic results supporting the discharge/admit diagnosis, radiology results, the need for outpatient follow up, to return to the emergency department if symptoms worsen or persist or if there are any questions or concerns that arise at home. ED course: Patient is alert and non toxic in appearance in the ED. patient will be covered with oral antibiotics. will follow up with PCP tomorrow. Patient and given strict return precautions. Patient understood and agrees with the plan of care. . 01/10 11:06 Order name: Chest Pa And Lat (2 Views) XRAY; Complete Time: 11:47 [facility] Administered Medications: 11:15 Drug: DuoNeb (3:1) (2.5 mg - 0.5 mg) 3 ml Route: Nebulizer; em 12:10 Follow up: Response: No adverse reaction; Marked relief of symptoms em 11:15 Drug: Zofran 4 mg Route: PO; em 11:48 Follow up: Response: No adverse reaction; Nausea is decreased em 11:51 Drug: [place] 5 mg-325 mg 1 tabs Route: PO; em Disposition: 14:43 Co-signature as Attending Physician, Maged Dao MD I agree with the assessment and kdr plan of care. Disposition: 01/10/18 12:55 Discharged to Home. Impression: Acute bronchitis. - Condition is Stable. - Discharge Instructions: Acute Bronchitis, Adult. - Prescriptions for promethazine- DM - take 5 milliliter by ORAL route every 4-6 hours; 120 milliliter. Zithromax Z- Brian 250 mg Oral Tablet - take 1 tablet by ORAL route as directed for 5 days Day 1 - take two (2) tablets one time. Day 2, 3, 4 , 5 take one (1) tablet once daily.; 6 tablet. Albuterol Sulfate 90 mcg/actuation - inhale 1-2 puff by INHALATION route every 4-6 hours; 1 Inhaler. - Medication Reconciliation Form, Thank You Letter, Antibiotic Education, Prescription Opioid Use form. - Follow up: Ramon Powers MD; When: Tomorrow; Reason: Recheck today's complaints, Continuance of care, Re-evaluation by your physician. Signatures: Dispatcher [employer] EDMS Maged Dao MD MD kdr Mickail, Joel, PA PA Owen Tanner, HARVEST MANAGER HARVEST MANAGER James Barrera RN RN la1 Corrections: (The following items were deleted from the chart) 13:07 12:55 01/10/2018 12:55 Discharged to Home. Impression: Acute bronchitis. Condition is em Stable. Forms are Medication Reconciliation Form, Thank You Letter, Antibiotic Education, Prescription Opioid Use. Follow up: Ramon Powers; When: Tomorrow; Reason: Recheck today's complaints, Continuance of care, Re-evaluation by your physician. tatyana
[2018-01-10 13:20] VITALS: TEMP 97.3
[2018-01-10 13:23] VITALS: BP 142/77; O2SAT 96
== END 2018-01-10 13:07 | disposition home or self-care (01) ==
LOC: ER 10:30
DX: J20.9 Acute bronchitis, unspecified (principal); I10 Essential (primary) hypertension; Z88.6 Allergy status to analgesic agent; Z88.8 Allergy status to other drugs, medicaments and biological substances
CPT/HCPCS: 71046; 94640; 99284

== ENCOUNTER 2018-05-19 20:24 | Emergency (ER) | payer OTHER ==
--- OUTSIDE RECORDS SUMMARY | 2018-05-19 20:26 | XMS REPORT | Clinical Summary ---
:1965 [address] [facility] Address [address] [place] [address] Care Team Providers Name Role Phone Unavailable [...] Not on file Results Not on fileafter 05/18/2017 Insurance Payer Benefit Plan / Group Subscriber ID Type Phone Address [facility] xxxxxxxxx Maps Contracted Advance Directives For more information, please contact:[address] [phone] Code Status Date Activated Date Inactivated Comments Full Code 06/30/2016 7:46 PM 07/04/2016 5:23 PM This code status was determined by: Patient
--- OUTSIDE RECORDS SUMMARY | 2018-05-19 20:27 | XMS REPORT ---
:1965 Author Organization [facility] Address [address] [place] [address] Care Team Providers Name Role Phone FAITH GOMEZ Unavailable Unavailable Problems This patient has no known problems. Allergies, Adverse Reactions, Alerts This patient has no known allergies or adverse reactions. Medications This patient has no known medications. Results Test Description Test Time Test Comments Text Results Atomic Results Result Comments BLOOD CULTURE 2016-07-07 14:28:00 Test Item Value Reference Range Comments CULTURE (BEAKER) (test xfmg=8513) No growth in 5 days POCT-GLUCOSE [id number] 12:04:00 Test Item Value Reference Range Comments POC-GLUCOSE METER (BEAKER) 179 mg/dL 70-110 TESTED AT [facility] [address] (test scyd=5084) [facility] [address] BASIC METABOLIC [id number] 09:51:00 Test Item Value Reference Range Comments SODIUM (BEAKER) (test 137 meq/L 136-145 zkps=070) POTASSIUM (BEAKER) (test 3.7 meq/L 3.5-5.1 dutz=786) CHLORIDE (BEAKER) (test 102 meq/L 98-107 ewem=106) CO2 (BEAKER) (test 25 meq/L 22-29 kctn=726) BLOOD UREA NITROGEN 17 mg/dL 7-21 (BEAKER) (test ckdf=880) CREATININE (BEAKER) (test 1.04 mg/dL 0.57-1.25 ukot=495) GLUCOSE RANDOM (BEAKER) 195 mg/dL 70-105 (test eopc=464) CALCIUM (BEAKER) (test 9.2 mg/dL 8.4-10.2 scbp=874) EGFR (BEAKER) (test 76 mL/min/1.73 sq m ESTIMATED GFR IS NOT kcjn=2395) ACCURATE CREATININE CLEARANCE IN PREDICTING GLOMERULAR FILTRATION RATE. ESTIMATED GFR IS NOT APPLICABLE FOR DIALYSIS PATIENTS. CBC W/PLT COUNT & AUTO [id number] 09:20:00 Test Item Value Reference Range Comments WHITE BLOOD CELL COUNT (BEAKER) (test vfwb=275) 6.1 K/ L 4.0-10.0 RED BLOOD CELL COUNT (BEAKER) (test ehvy=104) 4.63 M/ L 4.20-5.80 HEMOGLOBIN (BEAKER) (test lqxm=440) 13.7 GM/DL 13.0-16.8 HEMATOCRIT (BEAKER) (test arun=608) 39.8 % 40.0-50.0 MEAN CORPUSCULAR VOLUME (BEAKER) (test ocav=777) 85.9 fL 82.0-98.0 MEAN CORPUSCULAR HEMOGLOBIN (BEAKER) (test 29.6 pg 27.0-33.0 rjhs=138) MEAN CORPUSCULAR HEMOGLOBIN CONC (BEAKER) (test 34.5 GM/DL 32.0-36.0 siep=910) RED CELL DISTRIBUTION WIDTH (BEAKER) (test 14.8 % 10.3-14.2 tkan=113) PLATELET COUNT (BEAKER) (test uzqo=663) 143 K/CU MM 150-430 MEAN PLATELET VOLUME (BEAKER) (test mctm=487) 8.6 fL 6.5-10.5 NUCLEATED RED BLOOD CELLS (BEAKER) (test 0 /100 WBC 0-0 bppf=644) NEUTROPHILS RELATIVE PERCENT (BEAKER) (test 71 % rjhp=526) LYMPHOCYTES RELATIVE PERCENT (BEAKER) (test 20 % hmqj=134) MONOCYTES RELATIVE PERCENT (BEAKER) (test 5 % visb=019) EOSINOPHILS RELATIVE PERCENT (BEAKER) (test 3 % ozaw=874) BASOPHILS RELATIVE PERCENT (BEAKER) (test 1 % vlda=475) NEUTROPHILS ABSOLUTE COUNT (BEAKER) (test 4.31 K/ L 1.80-8.00 ueum=481) LYMPHOCYTES ABSOLUTE COUNT (BEAKER) (test 1.23 K/ L 1.48-4.50 zynv=227) MONOCYTES ABSOLUTE COUNT (BEAKER) (test 0.28 K/ L 0.00-1.30 ojah=025) EOSINOPHILS ABSOLUTE COUNT (BEAKER) (test 0.21 K/ L 0.00-0.50 lzvz=463) BASOPHILS ABSOLUTE COUNT (BEAKER) (test 0.03 K/ L 0.00-0.20 tixt=514) 0.00POCT-GLUCOSE [id number] 07:15:00 Test Item Value Reference Range Comments POC-GLUCOSE METER (BEAKER) 246 mg/dL 70-110 TESTED AT [address] (test fzai=1930) [place] [address] POCT-GLUCOSE [id number] 21:12:00 Test Item Value Reference Range Comments POC-GLUCOSE METER (BEAKER) 89 mg/dL 70-110 TESTED AT [address] (test fdcs=2883) [place] [address] POCT-GLUCOSE [id number] 17:12:00 Test Item Value Reference Range Comments POC-GLUCOSE METER (BEAKER) 217 mg/dL 70-110 TESTED AT [address] (test mtsz=6855) [place] [address] URINE [id number] 12:07:00 Test Item Value Reference Range Comments CULTURE (BEAKER) (test rvdj=5517) <10,000 col/mL skin candi POCT-GLUCOSE [id number] 11:30:00 Test Item Value Reference Range Comments POC-GLUCOSE METER (BEAKER) 205 mg/dL 70-110 TESTED AT [address] (test waib=4291) [place] [address] POCT-GLUCOSE [id number] 07:36:00 Test Item Value Reference Range Comments POC-GLUCOSE METER (BEAKER) 195 mg/dL 70-110 TESTED AT [address] (test qohs=9757) [place] [address] CBC W/PLT COUNT & AUTO [id number] 05:14:00 Test Item Value Reference Range Comments WHITE BLOOD CELL COUNT (BEAKER) (test sfqb=718) 6.7 K/ L 4.0-10.0 RED BLOOD CELL COUNT (BEAKER) (test ybuq=209) 4.40 M/ L 4.20-5.80 HEMOGLOBIN (BEAKER) (test jswa=714) 13.3 GM/DL 13.0-16.8 HEMATOCRIT (BEAKER) (test zlvg=620) 38.2 % 40.0-50.0 MEAN CORPUSCULAR VOLUME (BEAKER) (test iitl=913) 86.8 fL 82.0-98.0 MEAN CORPUSCULAR HEMOGLOBIN (BEAKER) (test 30.1 pg 27.0-33.0 wgxx=073) MEAN CORPUSCULAR HEMOGLOBIN CONC (BEAKER) (test 34.7 GM/DL 32.0-36.0 data=669) RED CELL DISTRIBUTION WIDTH (BEAKER) (test 14.7 % 10.3-14.2 aonh=032) PLATELET COUNT (BEAKER) (test pmqp=090) 144 K/CU MM 150-430 MEAN PLATELET VOLUME (BEAKER) (test mizn=088) 9.0 fL 6.5-10.5 NUCLEATED RED BLOOD CELLS (BEAKER) (test 0 /100 WBC 0-0 ubrr=417) NEUTROPHILS RELATIVE PERCENT (BEAKER) (test 67 % acfb=967) LYMPHOCYTES RELATIVE PERCENT (BEAKER) (test 25 % ivqt=047) MONOCYTES RELATIVE PERCENT (BEAKER) (test 5 % sfvo=011) EOSINOPHILS RELATIVE PERCENT (BEAKER) (test 2 % erzd=678) BASOPHILS RELATIVE PERCENT (BEAKER) (test 0 % auct=450) NEUTROPHILS ABSOLUTE COUNT (BEAKER) (test 4.52 K/ L 1.80-8.00 idwh=687) LYMPHOCYTES ABSOLUTE COUNT (BEAKER) (test 1.70 K/ L 1.48-4.50 lhty=516) MONOCYTES ABSOLUTE COUNT (BEAKER) (test 0.32 K/ L 0.00-1.30 cjgy=742) EOSINOPHILS ABSOLUTE COUNT (BEAKER) (test 0.16 K/ L 0.00-0.50 pixu=847) BASOPHILS ABSOLUTE COUNT (BEAKER) (test 0.03 K/ L 0.00-0.20 cfbl=086) 0.00BASI METABOLIC [id number] 05:14:00 Test Item Value Reference Range Comments SODIUM (BEAKER) (test 134 meq/L 136-145 xpzd=031) POTASSIUM (BEAKER) (test 4.2 meq/L 3.5-5.1 jdme=867) CHLORIDE (BEAKER) (test 101 meq/L 98-107 fqez=847) CO2 (BEAKER) (test 24 meq/L 22-29 osat=733) BLOOD UREA NITROGEN 20 mg/dL 7-21 (BEAKER) (test ahpc=149) CREATININE (BEAKER) (test 1.16 mg/dL 0.57-1.25 ggxp=878) GLUCOSE RANDOM (BEAKER) 216 mg/dL 70-105 (test aufw=062) CALCIUM (BEAKER) (test 8.8 mg/dL 8.4-10.2 esez=710) EGFR (BEAKER) (test 67 mL/min/1.73 sq m ESTIMATED GFR IS NOT yfyr=1476) ACCURATE CREATININE CLEARANCE IN PREDICTING GLOMERULAR FILTRATION RATE. ESTIMATED GFR IS NOT APPLICABLE FOR DIALYSIS PATIENTS. POCT-GLUCOSE [id number] 21:04:00 Test Item Value Reference Range Comments POC-GLUCOSE METER (BEAKER) 178 mg/dL 70-110 TESTED AT [address] (test wptt=0823) [place] [id number] POCT-GLUCOSE [id number] 17:07:00 Test Item Value Reference Range Comments POC-GLUCOSE METER (BEAKER) 88 mg/dL 70-110 TESTED AT [address] (test lsoo=8830) [place] [id number] POCT-GLUCOSE [id number] 12:30:00 Test Item Value Reference Range Comments POC-GLUCOSE METER (BEAKER) 107 mg/dL 70-110 TESTED AT [address] (test mijf=0985) [place] [id number] POCT-GLUCOSE [id number] 07:46:00 Test Item Value Reference Range Comments POC-GLUCOSE METER (BEAKER) 169 mg/dL 70-110 TESTED AT [address] (test tjeg=8513) [place] [address] CBC W/PLT COUNT & AUTO [id number] 07:42:00 Test Item Value Reference Range Comments WHITE BLOOD CELL COUNT (BEAKER) (test kpuw=411) 6.5 K/ L 4.0-10.0 RED BLOOD CELL COUNT (BEAKER) (test gtkf=871) 4.57 M/ L 4.20-5.80 HEMOGLOBIN (BEAKER) (test ecdq=238) 13.4 GM/DL 13.0-16.8 HEMATOCRIT (BEAKER) (test uryc=988) 40.4 % 40.0-50.0 MEAN CORPUSCULAR VOLUME (BEAKER) (test vpyc=582) 88.3 fL 82.0-98.0 MEAN CORPUSCULAR HEMOGLOBIN (BEAKER) (test 29.3 pg 27.0-33.0 hjei=658) MEAN CORPUSCULAR HEMOGLOBIN CONC (BEAKER) (test 33.2 GM/DL 32.0-36.0 oxij=317) RED CELL DISTRIBUTION WIDTH (BEAKER) (test 13.8 % 10.3-14.2 puzk=729) PLATELET COUNT (BEAKER) (test dgkk=764) 150 K/CU MM 150-430 MEAN PLATELET VOLUME (BEAKER) (test mnju=375) 9.0 fL 6.5-10.5 NUCLEATED RED BLOOD CELLS (BEAKER) (test 0 /100 WBC 0-0 dyel=628) NEUTROPHILS RELATIVE PERCENT (BEAKER) (test 64 % kdfx=240) LYMPHOCYTES RELATIVE PERCENT (BEAKER) (test 26 % lvcu=796) MONOCYTES RELATIVE PERCENT (BEAKER) (test 7 % xwku=395) EOSINOPHILS RELATIVE PERCENT (BEAKER) (test 3 % ifxu=955) BASOPHILS RELATIVE PERCENT (BEAKER) (test 0 % iyyd=275) NEUTROPHILS ABSOLUTE COUNT (BEAKER) (test 4.13 K/ L 1.80-8.00 uech=235) LYMPHOCYTES ABSOLUTE COUNT (BEAKER) (test 1.66 K/ L 1.48-4.50 kmwq=674) MONOCYTES ABSOLUTE COUNT (BEAKER) (test 0.44 K/ L 0.00-1.30 cprs=763) EOSINOPHILS ABSOLUTE COUNT (BEAKER) (test 0.21 K/ L 0.00-0.50 tvuk=944) BASOPHILS ABSOLUTE COUNT (BEAKER) (test 0.03 K/ L 0.00-0.20 sgfx=450) 0.00BASIC METABOLIC [id number] 06:13:00 Test Item Value Reference Range Comments SODIUM (BEAKER) (test 136 meq/L 136-145 mmsz=019) POTASSIUM (BEAKER) (test 3.6 meq/L 3.5-5.1 haky=345) CHLORIDE (BEAKER) (test 101 meq/L 98-107 hhhw=417) CO2 (BEAKER) (test 25 meq/L 22-29 bcpj=101) BLOOD UREA NITROGEN 18 mg/dL 7-21 (BEAKER) (test ofap=611) CREATININE (BEAKER) (test 1.07 mg/dL 0.57-1.25 vamx=737) GLUCOSE RANDOM (BEAKER) 188 mg/dL 70-105 (test iign=783) CALCIUM (BEAKER) (test 8.8 mg/dL 8.4-10.2 fksl=358) EGFR (BEAKER) (test 73 mL/min/1.73 sq m ESTIMATED GFR IS NOT sbyn=2430) ACCURATE CREATININE CLEARANCE IN PREDICTING GLOMERULAR FILTRATION RATE. ESTIMATED GFR IS NOT APPLICABLE FOR DIALYSIS PATIENTS. POCT-GLUCOSE [id number] 22:12:00 Test Item Value Reference Range Comments POC-GLUCOSE METER (BEAKER) 238 mg/dL 70-110 TESTED AT [place] [id number] (test enuw=0296) [facility] [address] POCT-GLUCOSE [id number] 17:25:00 Test Item Value Reference Range Comments POC-GLUCOSE METER (BEAKER) 102 mg/dL 70-110 TESTED AT [address] (test dvtu=0221) [facility] [address] URINALYSIS W/ [id number] 12:50:00 Test Item Value Reference Range Comments COLOR (BEAKER) (test soku=585) Colorless CLARITY (BEAKER) (test dnsm=684) Clear SPECIFIC GRAVITY UA (BEAKER) (test qoyx=873) 1.002 1.001-1.035 PH UA (BEAKER) (test bejf=141) 6.5 5.0-8.0 PROTEIN UA (BEAKER) (test epxd=263) Negative Negative GLUCOSE UA (BEAKER) (test bvmv=626) Negative Negative KETONES UA (BEAKER) (test mudr=037) Negative Negative BILIRUBIN UA (BEAKER) (test xiqz=085) Negative Negative BLOOD UA (BEAKER) (test cdon=976) Negative Negative NITRITE UA (BEAKER) (test dmdi=462) Negative Negative LEUKOCYTE ESTERASE UA (BEAKER) (test oppa=114) Negative Negative UROBILINOGEN UA (BEAKER) (test lvcz=232) 0.2 mg/dL 0.2-1.0 RBC UA (BEAKER) (test mybm=220) 0 /HPF WBC UA (BEAKER) (test obuj=407) < /HPF SOURCE(BEAKER) (test vzes=3036) POCT-GLUCOSE [id number] 12:04:00 Test Item Value Reference Range Comments POC-GLUCOSE METER (BEAKER) 226 mg/dL 70-110 TESTED AT [facility] [address] (test vwwo=0612) [facility] [address] POCT-GLUCOSE [id number] 08:00:00 Test Item Value Reference Range Comments POC-GLUCOSE METER (BEAKER) 300 mg/dL 70-110 TESTED AT [facility] [address] (test nzrp=6252) [facility] [address] BASIC METABOLIC [id number] 06:50:00 Test Item Value Reference Range Comments SODIUM (BEAKER) (test 134 meq/L 136-145 bpad=386) POTASSIUM (BEAKER) (test 4.0 meq/L 3.5-5.1 ozvc=835) CHLORIDE (BEAKER) (test 98 meq/L 98-107 bjng=548) CO2 (BEAKER) (test 26 meq/L 22-29 wtmx=139) BLOOD UREA NITROGEN 18 mg/dL 7-21 (BEAKER) (test igmy=617) CREATININE (BEAKER) (test 1.25 mg/dL 0.57-1.25 hkgj=175) GLUCOSE RANDOM (BEAKER) 349 mg/dL 70-105 (test grou=202) CALCIUM (BEAKER) (test 8.9 mg/dL 8.4-10.2 orxi=242) EGFR (BEAKER) (test 61 mL/min/1.73 sq m ESTIMATED GFR IS NOT ferk=1586) ACCURATE CREATININE CLEARANCE IN PREDICTING GLOMERULAR FILTRATION RATE. ESTIMATED GFR IS NOT APPLICABLE FOR DIALYSIS PATIENTS. CBC W/PLT COUNT & AUTO [id number] 06:01:00 Test Item Value Reference Range Comments WHITE BLOOD CELL COUNT (BEAKER) (test urtd=417) 6.6 K/ L 4.0-10.0 RED BLOOD CELL COUNT (BEAKER) (test ucoj=168) 4.79 M/ L 4.20-5.80 HEMOGLOBIN (BEAKER) (test qccu=650) 14.1 GM/DL 13.0-16.8 HEMATOCRIT (BEAKER) (test zlwz=669) 42.0 % 40.0-50.0 MEAN CORPUSCULAR VOLUME (BEAKER) (test dama=551) 87.7 fL 82.0-98.0 MEAN CORPUSCULAR HEMOGLOBIN (BEAKER) (test 29.5 pg 27.0-33.0 isub=480) MEAN CORPUSCULAR HEMOGLOBIN CONC (BEAKER) (test 33.6 GM/DL 32.0-36.0 enmv=992) RED CELL DISTRIBUTION WIDTH (BEAKER) (test 14.9 % 10.3-14.2 smpb=289) PLATELET COUNT (BEAKER) (test mzrs=665) 157 K/CU MM 150-430 MEAN PLATELET VOLUME (BEAKER) (test zlnz=522) 9.0 fL 6.5-10.5 NUCLEATED RED BLOOD CELLS (BEAKER) (test 0 /100 WBC 0-0 eclm=283) NEUTROPHILS RELATIVE PERCENT (BEAKER) (test 67 % yvnf=979) LYMPHOCYTES RELATIVE PERCENT (BEAKER) (test 23 % drhu=735) MONOCYTES RELATIVE PERCENT (BEAKER) (test 7 % vgxk=897) EOSINOPHILS RELATIVE PERCENT (BEAKER) (test 3 % huyi=040) BASOPHILS RELATIVE PERCENT (BEAKER) (test 0 % fpax=864) NEUTROPHILS ABSOLUTE COUNT (BEAKER) (test 4.44 K/ L 1.80-8.00 rjwl=762) LYMPHOCYTES ABSOLUTE COUNT (BEAKER) (test 1.51 K/ L 1.48-4.50 pjws=865) MONOCYTES ABSOLUTE COUNT (BEAKER) (test 0.43 K/ L 0.00-1.30 dcla=751) EOSINOPHILS ABSOLUTE COUNT (BEAKER) (test 0.21 K/ L 0.00-0.50 gffu=729) BASOPHILS ABSOLUTE COUNT (BEAKER) (test 0.03 K/ L 0.00-0.20 ciyi=161) 0.00POCT-GLUCOSE [id number] 21:25:00 Test Item Value Reference Range Comments POC-GLUCOSE METER (BEAKER) 279 mg/dL 70-110 TESTED AT [facility] [address] (test wdhh=5125) [facility] [address] HEMOGLOBIN [id number] 21:13:00 Test Item Value Reference Range Comments HEMOGLOBIN A1C (BEAKER) (test nfpz=496) 10.7 % 4.3-6.1 CBC W/PLT COUNT & AUTO [id number] 20:47:00 Test Item Value Reference Range Comments WHITE BLOOD CELL COUNT (BEAKER) (test ozhu=673) 7.3 K/ L 4.0-10.0 RED BLOOD CELL COUNT (BEAKER) (test efnc=286) 5.25 M/ L 4.20-5.80 HEMOGLOBIN (BEAKER) (test wcqp=405) 15.7 GM/DL 13.0-16.8 HEMATOCRIT (BEAKER) (test ties=422) 46.0 % 40.0-50.0 MEAN CORPUSCULAR VOLUME (BEAKER) (test sdje=518) 87.7 fL 82.0-98.0 MEAN CORPUSCULAR HEMOGLOBIN (BEAKER) (test 30.0 pg 27.0-33.0 omvv=540) MEAN CORPUSCULAR HEMOGLOBIN CONC (BEAKER) (test 34.2 GM/DL 32.0-36.0 gnlg=691) RED CELL DISTRIBUTION WIDTH (BEAKER) (test 13.8 % 10.3-14.2 qfzf=986) PLATELET COUNT (BEAKER) (test nkrf=155) 166 K/CU MM 150-430 MEAN PLATELET VOLUME (BEAKER) (test hojo=460) 8.3 fL 6.5-10.5 NUCLEATED RED BLOOD CELLS (BEAKER) (test 0 /100 WBC 0-0 qihz=386) NEUTROPHILS RELATIVE PERCENT (BEAKER) (test 69 % hbum=727) LYMPHOCYTES RELATIVE PERCENT (BEAKER) (test 22 % ouuy=779) MONOCYTES RELATIVE PERCENT (BEAKER) (test 5 % erlk=324) EOSINOPHILS RELATIVE PERCENT (BEAKER) (test 3 % wfby=959) BASOPHILS RELATIVE PERCENT (BEAKER) (test 0 % vkhc=043) NEUTROPHILS ABSOLUTE COUNT (BEAKER) (test 5.04 K/ L 1.80-8.00 hkjs=065) LYMPHOCYTES ABSOLUTE COUNT (BEAKER) (test 1.63 K/ L 1.48-4.50 ysyi=598) MONOCYTES ABSOLUTE COUNT (BEAKER) (test 0.40 K/ L 0.00-1.30 kpkm=806) EOSINOPHILS ABSOLUTE COUNT (BEAKER) (test 0.22 K/ L 0.00-0.50 bdlq=247) BASOPHILS ABSOLUTE COUNT (BEAKER) (test 0.01 K/ L 0.00-0.20 abzl=180) 0.00POCT-GLUCOSE [id number] 18:31:00 Test Item Value Reference Range Comments POC-GLUCOSE METER (BEAKER) 205 mg/dL 70-110 TESTED AT [facility] [address] (test wppt=5321) [facility] [address]
[2018-05-19 21:37] LABS: Urine Bacteria >50 /HPF (NONE SEEN); Urine Culture Reflex Order REFLEXED; Urine RBC NONE SEEN /HPF (NONE SEEN)
[2018-05-19 21:49] LABS: Urine Blood NEGATIVE (NEG); Urine Glucose 3+ (NEG); Urine Protein NEGATIVE (NEG); Urine Specific Gravity 1.015 (1.005-1.030)
--- NOTE | 2018-05-19 22:47 | EDPHYS ---
Physician Documentation [facility] Name: Ramirez Chaudhari Age: 53 yrs Sex: Male : 1965 Arrival Date: 05/19/2018 Time: 20:25 Bed 24 Private MD: Ramon Powers E ED Physician Jc Reynolds HPI: 05/19 22:32 This 53 yrs old Male presents to ER via Wheelchair with complaints of gs Testicular Problem. 22:32 The patient presents with scrotal pain, of the left side, with swelling. Onset: The gs symptoms/episode began/occurred 2 day(s) ago, and became persistent. Modifying factors: The symptoms are alleviated by nothing, the symptoms are aggravated by nothing. Associated signs and symptoms: Pertinent negatives: abdominal pain, fever, hematuria. Severity of symptoms: At their worst the symptoms were moderate, in the emergency department the symptoms are unchanged. The patient has experienced similar episodes in the past, several times. Historical: - Allergies: 20:34 Ibuprofen; aj1 20:34 metformin; aj1 - Home Meds: 20:34 atenolol 50 mg Oral tab 1 tab once daily [Active]; Colcrys 0.6 mg Oral tab 1 tab bid aj1 prn gout [Active]; Levemir 36 units subcutaneous soln twice a day [Active]; lisinopril 40 mg Oral tab 1 tab once daily [Active]; levothyroxine 75 mcg tab 1 tab once daily [Active]; Novolog 22 units Sub-Q before meals [Active]; oxybutynin chloride 5 mg Oral tab 1 tab 3 times per day [Active]; pantoprazole 40 mg Oral grps 1 tab once daily [Active]; - PMHx: 20:34 ADD/ADHD; Diabetes - IDDM; GERD; Gout; High Cholesterol; Hydrocele Left Testicle; aj1 Hypertension; Hypothyroidism; Migraines; Paraplegia; Renal Disease; Spinal Stroke; - Immunization history:: Flu vaccine is not up to date. - Social history:: Smoking status: Patient/guardian denies using tobacco. - Ebola Screening: : Patient denies travel to an Ebola-affected area in the 21 days before illness onset. ROS: 22:32 All other systems are negative. gs Exam: 22:32 Head/Face: Normocephalic, atraumatic. Neck: Trachea midline, no thyromegaly or masses gs palpated, and no cervical lymphadenopathy. Supple, full range of motion without nuchal rigidity, or vertebral point tenderness. No Meningismus. Cardiovascular: Regular rate and rhythm with a normal S1 and S2. No gallops, murmurs, or rubs. Normal PMI, no JVD. No pulse deficits. Respiratory: Lungs have equal breath sounds bilaterally, clear to auscultation and percussion. No rales, rhonchi or wheezes noted. No increased work of breathing, no retractions or nasal flaring. Abdomen/GI: Soft, non-tender, with normal bowel sounds. No distension or tympany. No guarding or rebound. No evidence of tenderness throughout. Back: No spinal tenderness. No costovertebral tenderness. Full range of motion. Skin: Warm, dry with normal turgor. Normal color with no rashes, no lesions, and no evidence of cellulitis. 22:32 Constitutional: The patient appears alert, awake. 22:32 : Male external genitalia: tenderness, is palpated in the left inguinal area, that is moderate. 22:32 Musculoskeletal/extremity: Exam is negative for acute changes. 22:32 Skin: Exam negative for acute changes. Vital Signs: 20:34 BP 148 / 88; Pulse 68; Resp 18; Temp 98.4; Pulse Ox 95% on R/A; Weight 104.33 kg (R); aj1 Height 5 ft. 8 in. (172.72 cm) (R); Pain 10/10; 21:21 BP 137 / 94; Pulse 66; Resp 19; Pulse Ox 97% on R/A; ca1 22:34 BP 144 / 96; Pulse 66; Resp 19; Pulse Ox 97% on R/A; ca1 20:34 Body Mass Index 34.97 (104.33 kg, 172.72 cm) aj1 MDM: 20:56 Patient medically screened. 22:32 Differential diagnosis: torsion epididymitis. Data reviewed: vital signs, nurses notes. Counseling: I had a detailed discussion with the patient and/or guardian regarding: the historical points, exam findings, and any diagnostic results supporting the discharge/admit diagnosis, radiology results. 22:44 ED course: us neg per tech. 05/19 20:49 Order name: Urine Microscopic Only; Complete Time: 22:32 05/19 21:18 Order name: Urine Dipstick--Ancillary (enter results); Complete Time: 22:32 mw2 05/19 20:49 Order name: Scrotum Testicles US 05/19 20:49 Order name: Urine Dipstick-Ancillary (obtain specimen); Complete Time: 21:14 05/19 21:39 Order name: Urine Culture EDMS Administered Medications: 23:05 Drug: [place] 5 mg-325 mg 1 tabs Route: PO; ca1 23:05 Follow up: Response: Medication administered at discharge. ca1 Disposition: 05/19/18 22:47 Discharged to Home. Impression: Orchitis and epididymitis. - Condition is Stable. - Discharge Instructions: Epididymitis. - Prescriptions for Levaquin 500 mg Oral Tablet - take 1 tablet by ORAL route once daily for 7 days; 7 tablet. Tylenol- Codeine #4 300-60 mg Oral Tablet - take 1 tablet by ORAL route every 6 hours As needed; 6 tablet. - Medication Reconciliation Form, Thank You Letter, Antibiotic Education, Prescription Opioid Use form. - Follow up: Private Physician; When: 2 - 3 days; Reason: Re-evaluation by your physician. Signatures: Dispatcher [employer] EDMS Geneva Sharif RN RN aj1 Jc Reynolds MD MD Kathy Beck RN RN ca1 Corrections: (The following items were deleted from the chart) 23:08 22:47 05/19/2018 22:47 Discharged to Home. Impression: Orchitis and epididymitis. ca1 Condition is Stable. Forms are Medication Reconciliation Form, Thank You Letter, Antibiotic Education, Prescription Opioid Use. Follow up: Private Physician; When: 2 - 3 days; Reason: Re-evaluation by your physician.
--- NOTE | 2018-05-19 22:47 | ER ---
Nurse's Notes [facility] Name: Ramirez Chaudhari Age: 53 yrs Sex: Male : 1965 Arrival Date: 05/19/2018 Time: 20:25 Bed 24 Private MD: Ramon Powers E Diagnosis: Orchitis and epididymitis Presentation: 05/19 20:31 Presenting complaint: Patient states: "Yesterday I went to use the restroom and I don't aj1 know if I strained too much but now my left testicle is swollen and it feels like something tore. I tried to take some Aleeve, and Bactrim and it eased it up, but it came back today". Transition of care: patient was not received from another setting of care. Onset of symptoms was May 19, 2018. Risk Assessment: Do you want to hurt yourself or someone else? Patient reports no desire to harm self or others. Initial Sepsis Screen: Does the patient meet any 2 criteria? No. Patient's initial sepsis screen is negative. Does the patient have a suspected source of infection? Yes: Other: testicular pain and swelling. Care prior to arrival: None. 20:31 Method Of Arrival: Wheelchair aj1 20:31 Acuity: NOHEMI 3 aj1 Triage Assessment: 20:34 General: Appears in no apparent distress. uncomfortable, Behavior is calm, cooperative, aj1 appropriate for age. Pain: Complains of pain in left testicle Pain currently is 10 out of 10 on a pain scale. Neuro: Level of Consciousness is awake, alert, obeys commands. Cardiovascular: Patient's skin is warm and dry. Respiratory: Airway is patent Respiratory effort is even, unlabored, Respiratory pattern is regular, symmetrical. Historical: - Allergies: 20:34 Ibuprofen; aj1 20:34 metformin; aj1 - Home Meds: 20:34 atenolol 50 mg Oral tab 1 tab once daily [Active]; Colcrys 0.6 mg Oral tab 1 tab bid aj1 prn gout [Active]; Levemir 36 units subcutaneous soln twice a day [Active]; lisinopril 40 mg Oral tab 1 tab once daily [Active]; levothyroxine 75 mcg tab 1 tab once daily [Active]; Novolog 22 units Sub-Q before meals [Active]; oxybutynin chloride 5 mg Oral tab 1 tab 3 times per day [Active]; pantoprazole 40 mg Oral grps 1 tab once daily [Active]; - PMHx: 20:34 ADD/ADHD; Diabetes - IDDM; GERD; Gout; High Cholesterol; Hydrocele Left Testicle; aj1 Hypertension; Hypothyroidism; Migraines; Paraplegia; Renal Disease; Spinal Stroke; - Immunization history:: Flu vaccine is not up to date. - Social history:: Smoking status: Patient/guardian denies using tobacco. - Ebola Screening: : Patient denies travel to an Ebola-affected area in the 21 days before illness onset. Screenin:40 Abuse screen: Denies threats or abuse. Denies injuries from another. Nutritional ca1 screening: No deficits noted. Tuberculosis screening: No symptoms or risk factors identified. Fall Risk Secondary diagnosis (15 points) impaired mobility. Assessment: 20:40 General: Appears in no apparent distress. comfortable, Behavior is calm, cooperative, ca1 appropriate for age. Pain: Complains of pain in pelvis and left testicle and groin Pain currently is 8 out of 10 on a pain scale. Pain began 1 day ago. Neuro: Level of Consciousness is awake, alert, obeys commands, Oriented to person, place, time, situation. Cardiovascular: Heart tones S1 S2 present Capillary refill < 3 seconds Patient's skin is warm and dry. Respiratory: Airway is patent Respiratory effort is even, unlabored, Respiratory pattern is regular, symmetrical, Breath sounds are clear bilaterally. GI: Abdomen is round non-distended, Bowel sounds present X 4 quads. : Valera in place Urine is clear, Reports burning with urination, of frequent epididymitis. EENT: No deficits noted. No signs and/or symptoms were reported regarding the EENT system. Derm: No deficits noted. No signs and/or symptoms reported regarding the dermatologic system. Musculoskeletal: Capillary refill < 3 seconds, pt is paraplegic. 21:45 Reassessment: Patient appears in no apparent distress at this time. Patient and/or ca1 family updated on plan of care and expected duration. Pain level reassessed. Patient is alert, oriented x 3, equal unlabored respirations, skin warm/dry/pink. 22:41 Reassessment: Patient appears in no apparent distress at this time. Patient and/or ca1 family updated on plan of care and expected duration. Pain level reassessed. Patient is alert, oriented x 3, equal unlabored respirations, skin warm/dry/pink. Vital Signs: 20:34 BP 148 / 88; Pulse 68; Resp 18; Temp 98.4; Pulse Ox 95% on R/A; Weight 104.33 kg (R); aj1 Height 5 ft. 8 in. (172.72 cm) (R); Pain 10/10; 21:21 BP 137 / 94; Pulse 66; Resp 19; Pulse Ox 97% on R/A; ca1 22:34 BP 144 / 96; Pulse 66; Resp 19; Pulse Ox 97% on R/A; ca1 20:34 Body Mass Index 34.97 (104.33 kg, 172.72 cm) aj1 ED Course: 20:25 Patient arrived in ED. es 20:25 Ramon Powers MD is Private Physician. es 20:33 Triage completed. aj1 20:34 Arm band placed on. aj1 20:40 Patient has correct armband on for positive identification. Bed in low position. Call ca1 light in reach. Side rails up X 1. Pulse ox on. NIBP on. Warm blanket given. 20:44 Jc Reynolds MD is Attending Physician. gs 20:49 Kathy Beck, NORBERTO is Primary Nurse. ca1 22:52 Scrotum Testicles US In Process Unspecified. EDMS 23:00 No provider procedures requiring assistance completed. Patient did not have IV access ca1 during this emergency room visit. Administered Medications: 23:05 Drug: [place] 5 mg-325 mg 1 tabs Route: PO; ca1 23:05 Follow up: Response: Medication administered at discharge. ca1 Outcome: 22:47 Discharge ordered by . gs 23:00 Discharged to home via wheelchair, with significant other. ca1 23:00 Condition: stable 23:00 Discharge instructions given to patient, significant other, Instructed on discharge instructions, follow up and referral plans. medication usage, Demonstrated understanding of instructions, follow-up care, medications, Prescriptions given X 2. 23:08 Patient left the ED. ca1 Addendum: 05/23/2018 09:49 Addendum: Culture Results: Positive urine culture. Levaquin is intermediately sensitive a a5 to M.Morganii. Phone call Attempt #1 Attempted to contact pt over the phone to check about improvement or worsening of symptoms per THO Spence. Phone number has been disconnected. Signatures: Dispatcher [employer] Geneva Garcia, RN RN aj1 Tash Harris Audri RN RN aa5 Jc Reynolds MD MD gs AcobKathy RN RN ca1 Corrections: (The following items were deleted from the chart) 05/19 22:46 20:40 Musculoskeletal: Capillary refill < 3 seconds, ca1 ca1
[2018-05-19] MEDS ORDERED: HYDROCODONE/APAP 5/325 MG TAB ONE (23:14)
[2018-05-20 01:35] VITALS: TEMP 98.4
[2018-05-20 01:39] VITALS: O2SAT 97
[2018-05-20 01:41] VITALS: BP 144/96
--- NOTE | 2018-05-20 06:42 | RAD REPORT ---
EXAM DESCRIPTION: US - Scrotum Testicles - 05/19/2018 10:52 pm CLINICAL HISTORY: Scrotal pain COMPARISON: July 2017 FINDINGS: Right testicle measures 4 x 2 x 3.2 centimeters. Echotexture is mildly inhomogeneous. Norm al blood flow Left testicle measures 4.9 x 2.1 x 2 point centimeters. Echotexture is mildly inhomogeneous. Normal B lood flow The epididymides are normal in size and echotexture. Normal blood flow is seen. 8 millimeter left spe rmatocele Diffuse edema within the subcutaneous tissues. IMPRESSION: Diffuse edema within the subcutaneous tissues may be related to cellulitis or venous sta sis 8 millimeter left spermatocele
== END 2018-05-19 23:08 | disposition home or self-care (01) ==
LOC: ER 20:24
DX: N45.3 Epididymo-orchitis (principal)
CPT/HCPCS: 76870; 81003; 81015; 87077; 87086; 87088; 87186; 99284

== ENCOUNTER 2018-06-12 17:17 | Emergency (ER) | payer OTHER ==
--- OUTSIDE RECORDS SUMMARY | 2018-06-12 17:18 | XMS REPORT | Clinical Summary ---
:1965 Author Organization [facility] Address [address] [place] [address] Care Team Providers Name Role Phone Unavailable [...] Not on file Results Not on fileafter 06/11/2017 Insurance Payer Benefit Plan / Group Subscriber ID Type Phone Address [facility] xxxxxxxxx Maps Contracted Advance Directives For more information, please contact:[address] [phone] Code Status Date Activated Date Inactivated Comments Full Code 06/30/2016 7:46 PM 07/04/2016 5:23 PM This code status was determined by: Patient
--- OUTSIDE RECORDS SUMMARY | 2018-06-12 17:19 | XMS REPORT ---
:1965 Author [facility] Address [address] [place] [address] Care Team Providers Name Role Phone FAITH GOMEZ Unavailable Unavailable Problems This patient has no known problems. Allergies, Adverse Reactions, Alerts This patient has no known allergies or adverse reactions. Medications This patient has no known medications. Results Test Description Test Time Test Comments Text Results Atomic Results Result Comments BLOOD CULTURE 2016-07-07 14:28:00 Test Item Value Reference Range Comments CULTURE (BEAKER) (test xsfi=2458) No growth in 5 days POCT-GLUCOSE [id number] 12:04:00 Test Item Value Reference Range Comments POC-GLUCOSE METER (BEAKER) 179 mg/dL 70-110 TESTED AT [facility] [address] [facility] (test dozj=9780) [facility] [address] BASIC METABOLIC [id number] 09:51:00 Test Item Value Reference Range Comments SODIUM (BEAKER) (test 137 meq/L 136-145 upmc=130) POTASSIUM (BEAKER) (test 3.7 meq/L 3.5-5.1 fwps=738) CHLORIDE (BEAKER) (test 102 meq/L 98-107 hnaq=813) CO2 (BEAKER) (test 25 meq/L 22-29 uluq=092) BLOOD UREA NITROGEN 17 mg/dL 7-21 (BEAKER) (test hzkq=711) CREATININE (BEAKER) (test 1.04 mg/dL 0.57-1.25 xxce=713) GLUCOSE RANDOM (BEAKER) 195 mg/dL 70-105 (test bqxv=340) CALCIUM (BEAKER) (test 9.2 mg/dL 8.4-10.2 dgze=740) EGFR (BEAKER) (test 76 mL/min/1.73 sq m ESTIMATED GFR IS NOT goge=0115) ACCURATE CREATININE CLEARANCE IN PREDICTING GLOMERULAR FILTRATION RATE. ESTIMATED GFR IS NOT APPLICABLE FOR DIALYSIS PATIENTS. CBC W/PLT COUNT & AUTO [id number] 09:20:00 Test Item Value Reference Range Comments WHITE BLOOD CELL COUNT (BEAKER) (test qied=683) 6.1 K/ L 4.0-10.0 RED BLOOD CELL COUNT (BEAKER) (test vdys=546) 4.63 M/ L 4.20-5.80 HEMOGLOBIN (BEAKER) (test tkyb=228) 13.7 GM/DL 13.0-16.8 HEMATOCRIT (BEAKER) (test bcjx=053) 39.8 % 40.0-50.0 MEAN CORPUSCULAR VOLUME (BEAKER) (test rgcy=307) 85.9 fL 82.0-98.0 MEAN CORPUSCULAR HEMOGLOBIN (BEAKER) (test 29.6 pg 27.0-33.0 ykcs=611) MEAN CORPUSCULAR HEMOGLOBIN CONC (BEAKER) (test 34.5 GM/DL 32.0-36.0 riza=685) RED CELL DISTRIBUTION WIDTH (BEAKER) (test 14.8 % 10.3-14.2 mkvz=842) PLATELET COUNT (BEAKER) (test bhpi=953) 143 K/CU MM 150-430 MEAN PLATELET VOLUME (BEAKER) (test jfzd=987) 8.6 fL 6.5-10.5 NUCLEATED RED BLOOD CELLS (BEAKER) (test 0 /100 WBC 0-0 pkay=472) NEUTROPHILS RELATIVE PERCENT (BEAKER) (test 71 % fxlh=926) LYMPHOCYTES RELATIVE PERCENT (BEAKER) (test 20 % zdnh=222) MONOCYTES RELATIVE PERCENT (BEAKER) (test 5 % ylex=087) EOSINOPHILS RELATIVE PERCENT (BEAKER) (test 3 % rryy=095) BASOPHILS RELATIVE PERCENT (BEAKER) (test 1 % izua=394) NEUTROPHILS ABSOLUTE COUNT (BEAKER) (test 4.31 K/ L 1.80-8.00 dvju=479) LYMPHOCYTES ABSOLUTE COUNT (BEAKER) (test 1.23 K/ L 1.48-4.50 rbko=564) MONOCYTES ABSOLUTE COUNT (BEAKER) (test 0.28 K/ L 0.00-1.30 iasu=184) EOSINOPHILS ABSOLUTE COUNT (BEAKER) (test 0.21 K/ L 0.00-0.50 qaqf=212) BASOPHILS ABSOLUTE COUNT (BEAKER) (test 0.03 K/ L 0.00-0.20 kvht=081) 0.00POCT-GLUCOSE [id number] 07:15:00 Test Item Value Reference Range Comments POC-GLUCOSE METER (BEAKER) 246 mg/dL 70-110 TESTED AT [address] (test ujyd=0080) [place] [address] POCT-GLUCOSE [id number] 21:12:00 Test Item Value Reference Range Comments POC-GLUCOSE METER (BEAKER) 89 mg/dL 70-110 TESTED AT [address] (test wves=8383) [place] [id number] POCT-GLUCOSE [id number] 17:12:00 Test Item Value Reference Range Comments POC-GLUCOSE METER (BEAKER) 217 mg/dL 70-110 TESTED AT [address] (test fqtl=2448) [place] [address] URINE [id number] 12:07:00 Test Item Value Reference Range Comments CULTURE (AKER) (test ttkg=9643) <10,000 col/mL skin candi POCT-GLUCOSE [id number] 11:30:00 Test Item Value Reference Range Comments POC-GLUCOSE METER (BEAKER) 205 mg/dL 70-110 TESTED AT [address] (test wxyf=2039) [place] [id number] POCT-GLUCOSE [id number] 07:36:00 Test Item Value Reference Range Comments POC-GLUCOSE METER (BEAKER) 195 mg/dL 70-110 TESTED AT [address] (test sdbx=7630) [place] [address] CBC W/PLT COUNT & AUTO [id number] 05:14:00 Test Item Value Reference Range Comments WHITE BLOOD CELL COUNT (BEAKER) (test wxws=217) 6.7 K/ L 4.0-10.0 RED BLOOD CELL COUNT (BEAKER) (test bmmv=763) 4.40 M/ L 4.20-5.80 HEMOGLOBIN (BEAKER) (test uchb=617) 13.3 GM/DL 13.0-16.8 HEMATOCRIT (BEAKER) (test lvnj=772) 38.2 % 40.0-50.0 MEAN CORPUSCULAR VOLUME (BEAKER) (test ehrc=062) 86.8 fL 82.0-98.0 MEAN CORPUSCULAR HEMOGLOBIN (BEAKER) (test 30.1 pg 27.0-33.0 ycus=203) MEAN CORPUSCULAR HEMOGLOBIN CONC (BEAKER) (test 34.7 GM/DL 32.0-36.0 cxkb=545) RED CELL DISTRIBUTION WIDTH (BEAKER) (test 14.7 % 10.3-14.2 ubey=241) PLATELET COUNT (BEAKER) (test wpyi=895) 144 K/CU MM 150-430 MEAN PLATELET VOLUME (BEAKER) (test cftc=981) 9.0 fL 6.5-10.5 NUCLEATED RED BLOOD CELLS (BEAKER) (test 0 /100 WBC 0-0 yrjy=122) NEUTROPHILS RELATIVE PERCENT (BEAKER) (test 67 % rzjl=720) LYMPHOCYTES RELATIVE PERCENT (BEAKER) (test 25 % vrni=860) MONOCYTES RELATIVE PERCENT (BEAKER) (test 5 % shyp=544) EOSINOPHILS RELATIVE PERCENT (BEAKER) (test 2 % tkka=962) BASOPHILS RELATIVE PERCENT (BEAKER) (test 0 % liqy=525) NEUTROPHILS ABSOLUTE COUNT (BEAKER) (test 4.52 K/ L 1.80-8.00 fodq=494) LYMPHOCYTES ABSOLUTE COUNT (BEAKER) (test 1.70 K/ L 1.48-4.50 dtxi=337) MONOCYTES ABSOLUTE COUNT (BEAKER) (test 0.32 K/ L 0.00-1.30 ymfj=457) EOSINOPHILS ABSOLUTE COUNT (BEAKER) (test 0.16 K/ L 0.00-0.50 dqsn=611) BASOPHILS ABSOLUTE COUNT (BEAKER) (test 0.03 K/ L 0.00-0.20 nvsm=224) 0.00[facility] METABOLIC [id number] 05:14:00 Test Item Value Reference Range Comments SODIUM (BEAKER) (test 134 meq/L 136-145 wama=854) POTASSIUM (BEAKER) (test 4.2 meq/L 3.5-5.1 thoo=516) CHLORIDE (BEAKER) (test 101 meq/L 98-107 delp=136) CO2 (BEAKER) (test 24 meq/L 22-29 jfrn=630) BLOOD UREA NITROGEN 20 mg/dL 7-21 (BEAKER) (test tjsu=030) CREATININE (BEAKER) (test 1.16 mg/dL 0.57-1.25 lflb=622) GLUCOSE RANDOM (BEAKER) 216 mg/dL 70-105 (test pynn=651) CALCIUM (BEAKER) (test 8.8 mg/dL 8.4-10.2 ckiz=515) EGFR (BEAKER) (test 67 mL/min/1.73 sq m ESTIMATED GFR IS NOT nbfx=0900) ACCURATE CREATININE CLEARANCE IN PREDICTING GLOMERULAR FILTRATION RATE. ESTIMATED GFR IS NOT APPLICABLE FOR DIALYSIS PATIENTS. POCT-GLUCOSE [id number] 21:04:00 Test Item Value Reference Range Comments POC-GLUCOSE METER (BEAKER) 178 mg/dL 70-110 TESTED AT [address] (test rnmp=3780) [place] [id number] POCT-GLUCOSE [id number] 17:07:00 Test Item Value Reference Range Comments POC-GLUCOSE METER (BEAKER) 88 mg/dL 70-110 TESTED AT [address] (test ewhh=6249) [place] [id number] POCT-GLUCOSE [id number] 12:30:00 Test Item Value Reference Range Comments POC-GLUCOSE METER (BEAKER) 107 mg/dL 70-110 TESTED AT [address] (test hhwn=8372) [facility] [address] POCT-GLUCOSE [id number] 07:46:00 Test Item Value Reference Range Comments POC-GLUCOSE METER (BEAKER) 169 mg/dL 70-110 TESTED AT [address] (test vyzs=0982) [facility] [address] CBC W/PLT COUNT & AUTO [id number] 07:42:00 Test Item Value Reference Range Comments WHITE BLOOD CELL COUNT (BEAKER) (test gvli=421) 6.5 K/ L 4.0-10.0 RED BLOOD CELL COUNT (BEAKER) (test xmtu=286) 4.57 M/ L 4.20-5.80 HEMOGLOBIN (BEAKER) (test phjl=165) 13.4 GM/DL 13.0-16.8 HEMATOCRIT (BEAKER) (test xzds=413) 40.4 % 40.0-50.0 MEAN CORPUSCULAR VOLUME (BEAKER) (test jael=310) 88.3 fL 82.0-98.0 MEAN CORPUSCULAR HEMOGLOBIN (BEAKER) (test 29.3 pg 27.0-33.0 qihn=928) MEAN CORPUSCULAR HEMOGLOBIN CONC (BEAKER) (test 33.2 GM/DL 32.0-36.0 zneg=693) RED CELL DISTRIBUTION WIDTH (BEAKER) (test 13.8 % 10.3-14.2 kdbm=777) PLATELET COUNT (BEAKER) (test zweu=382) 150 K/CU MM 150-430 MEAN PLATELET VOLUME (BEAKER) (test tpiq=832) 9.0 fL 6.5-10.5 NUCLEATED RED BLOOD CELLS (BEAKER) (test 0 /100 WBC 0-0 ghpm=173) NEUTROPHILS RELATIVE PERCENT (BEAKER) (test 64 % jfvi=586) LYMPHOCYTES RELATIVE PERCENT (BEAKER) (test 26 % gjar=392) MONOCYTES RELATIVE PERCENT (BEAKER) (test 7 % yopp=795) EOSINOPHILS RELATIVE PERCENT (BEAKER) (test 3 % nzoq=163) BASOPHILS RELATIVE PERCENT (BEAKER) (test 0 % fcvo=557) NEUTROPHILS ABSOLUTE COUNT (BEAKER) (test 4.13 K/ L 1.80-8.00 qogg=478) LYMPHOCYTES ABSOLUTE COUNT (BEAKER) (test 1.66 K/ L 1.48-4.50 igne=276) MONOCYTES ABSOLUTE COUNT (BEAKER) (test 0.44 K/ L 0.00-1.30 kcsr=607) EOSINOPHILS ABSOLUTE COUNT (BEAKER) (test 0.21 K/ L 0.00-0.50 yswb=228) BASOPHILS ABSOLUTE COUNT (BEAKER) (test 0.03 K/ L 0.00-0.20 hqle=405) 0.00BASI METABOLIC [id number] 06:13:00 Test Item Value Reference Range Comments SODIUM (BEAKER) (test 136 meq/L 136-145 crff=616) POTASSIUM (BEAKER) (test 3.6 meq/L 3.5-5.1 ghct=846) CHLORIDE (BEAKER) (test 101 meq/L 98-107 ohvz=683) CO2 (BEAKER) (test 25 meq/L 22-29 quxc=305) BLOOD UREA NITROGEN 18 mg/dL 7-21 (BEAKER) (test svbz=776) CREATININE (BEAKER) (test 1.07 mg/dL 0.57-1.25 prvl=571) GLUCOSE RANDOM (BEAKER) 188 mg/dL 70-105 (test nljb=075) CALCIUM (BEAKER) (test 8.8 mg/dL 8.4-10.2 mneh=572) EGFR (BEAKER) (test 73 mL/min/1.73 sq m ESTIMATED GFR IS NOT vjgk=7121) ACCURATE CREATININE CLEARANCE IN PREDICTING GLOMERULAR FILTRATION RATE. ESTIMATED GFR IS NOT APPLICABLE FOR DIALYSIS PATIENTS. POCT-GLUCOSE [id number] 22:12:00 Test Item Value Reference Range Comments POC-GLUCOSE METER (BEAKER) 238 mg/dL 70-110 TESTED AT [address] (test nljx=2380) [place] [id number] POCT-GLUCOSE [id number] 17:25:00 Test Item Value Reference Range Comments POC-GLUCOSE METER (BEAKER) 102 mg/dL 70-110 TESTED AT [address] (test dvkc=3515) [place] [address] URINALYSIS W/ [id number] 12:50:00 Test Item Value Reference Range Comments COLOR (BEAKER) (test icnf=478) Colorless CLARITY (BEAKER) (test jpew=422) Clear SPECIFIC GRAVITY UA (BEAKER) (test pzrx=562) 1.002 1.001-1.035 PH UA (BEAKER) (test kdnn=638) 6.5 5.0-8.0 PROTEIN UA (BEAKER) (test uckw=891) Negative Negative GLUCOSE UA (BEAKER) (test fsft=682) Negative Negative KETONES UA (BEAKER) (test epcu=959) Negative Negative BILIRUBIN UA (BEAKER) (test bwwa=406) Negative Negative BLOOD UA (BEAKER) (test spfd=055) Negative Negative NITRITE UA (BEAKER) (test nwtr=014) Negative Negative LEUKOCYTE ESTERASE UA (BEAKER) (test xraf=721) Negative Negative UROBILINOGEN UA (BEAKER) (test ynaq=680) 0.2 mg/dL 0.2-1.0 RBC UA (BEAKER) (test hrjf=790) 0 /HPF WBC UA (BEAKER) (test bgpw=125) < /HPF SOURCE(BEAKER) (test olir=9290) POCT-GLUCOSE [id number] 12:04:00 Test Item Value Reference Range Comments POC-GLUCOSE METER (BEAKER) 226 mg/dL 70-110 TESTED AT [place] [address] [facility] (test kymm=3473) [facility] [address] POCT-GLUCOSE [id number] 08:00:00 Test Item Value Reference Range Comments POC-GLUCOSE METER (BEAKER) 300 mg/dL 70-110 TESTED AT [facility] [address] [facility] (test bitg=9635) [facility] [address] BASIC METABOLIC [id number] 06:50:00 Test Item Value Reference Range Comments SODIUM (BEAKER) (test 134 meq/L 136-145 fnrm=909) POTASSIUM (BEAKER) (test 4.0 meq/L 3.5-5.1 gwwe=158) CHLORIDE (BEAKER) (test 98 meq/L 98-107 swpg=534) CO2 (BEAKER) (test 26 meq/L 22-29 tttq=481) BLOOD UREA NITROGEN 18 mg/dL 7-21 (BEAKER) (test xbqo=819) CREATININE (BEAKER) (test 1.25 mg/dL 0.57-1.25 cxxd=212) GLUCOSE RANDOM (BEAKER) 349 mg/dL 70-105 (test hpem=787) CALCIUM (BEAKER) (test 8.9 mg/dL 8.4-10.2 hgex=411) EGFR (BEAKER) (test 61 mL/min/1.73 sq m ESTIMATED GFR IS NOT rwne=3836) ACCURATE CREATININE CLEARANCE IN PREDICTING GLOMERULAR FILTRATION RATE. ESTIMATED GFR IS NOT APPLICABLE FOR DIALYSIS PATIENTS. CBC W/PLT COUNT & AUTO [id number] 06:01:00 Test Item Value Reference Range Comments WHITE BLOOD CELL COUNT (BEAKER) (test yfoa=952) 6.6 K/ L 4.0-10.0 RED BLOOD CELL COUNT (BEAKER) (test ghlu=867) 4.79 M/ L 4.20-5.80 HEMOGLOBIN (BEAKER) (test itlv=090) 14.1 GM/DL 13.0-16.8 HEMATOCRIT (BEAKER) (test qyoi=255) 42.0 % 40.0-50.0 MEAN CORPUSCULAR VOLUME (BEAKER) (test zwao=519) 87.7 fL 82.0-98.0 MEAN CORPUSCULAR HEMOGLOBIN (BEAKER) (test 29.5 pg 27.0-33.0 qwfr=306) MEAN CORPUSCULAR HEMOGLOBIN CONC (BEAKER) (test 33.6 GM/DL 32.0-36.0 mxgz=400) RED CELL DISTRIBUTION WIDTH (BEAKER) (test 14.9 % 10.3-14.2 rqzg=670) PLATELET COUNT (BEAKER) (test pbyv=974) 157 K/CU MM 150-430 MEAN PLATELET VOLUME (BEAKER) (test aaqd=609) 9.0 fL 6.5-10.5 NUCLEATED RED BLOOD CELLS (BEAKER) (test 0 /100 WBC 0-0 kezw=245) NEUTROPHILS RELATIVE PERCENT (BEAKER) (test 67 % ivej=357) LYMPHOCYTES RELATIVE PERCENT (BEAKER) (test 23 % apvk=393) MONOCYTES RELATIVE PERCENT (BEAKER) (test 7 % lmgw=422) EOSINOPHILS RELATIVE PERCENT (BEAKER) (test 3 % oehn=445) BASOPHILS RELATIVE PERCENT (BEAKER) (test 0 % ztgj=166) NEUTROPHILS ABSOLUTE COUNT (BEAKER) (test 4.44 K/ L 1.80-8.00 mfdu=024) LYMPHOCYTES ABSOLUTE COUNT (BEAKER) (test 1.51 K/ L 1.48-4.50 xmcx=848) MONOCYTES ABSOLUTE COUNT (BEAKER) (test 0.43 K/ L 0.00-1.30 ulkb=788) EOSINOPHILS ABSOLUTE COUNT (BEAKER) (test 0.21 K/ L 0.00-0.50 hpgr=793) BASOPHILS ABSOLUTE COUNT (BEAKER) (test 0.03 K/ L 0.00-0.20 juvw=629) 0.00POCT-GLUCOSE [id number] 21:25:00 Test Item Value Reference Range Comments POC-GLUCOSE METER (BEAKER) 279 mg/dL 70-110 TESTED AT [address] (test fdmr=1760) [facility] [address] HEMOGLOBIN [id number] 21:13:00 Test Item Value Reference Range Comments HEMOGLOBIN A1C (BEAKER) (test gxjn=651) 10.7 % 4.3-6.1 CBC W/PLT COUNT & AUTO [id number] 20:47:00 Test Item Value Reference Range Comments WHITE BLOOD CELL COUNT (BEAKER) (test anln=860) 7.3 K/ L 4.0-10.0 RED BLOOD CELL COUNT (BEAKER) (test alrb=991) 5.25 M/ L 4.20-5.80 HEMOGLOBIN (BEAKER) (test zhho=255) 15.7 GM/DL 13.0-16.8 HEMATOCRIT (BEAKER) (test rehl=930) 46.0 % 40.0-50.0 MEAN CORPUSCULAR VOLUME (BEAKER) (test aqkw=244) 87.7 fL 82.0-98.0 MEAN CORPUSCULAR HEMOGLOBIN (BEAKER) (test 30.0 pg 27.0-33.0 vrpt=319) MEAN CORPUSCULAR HEMOGLOBIN CONC (BEAKER) (test 34.2 GM/DL 32.0-36.0 loir=887) RED CELL DISTRIBUTION WIDTH (BEAKER) (test 13.8 % 10.3-14.2 xopr=603) PLATELET COUNT (BEAKER) (test gpzd=514) 166 K/CU MM 150-430 MEAN PLATELET VOLUME (BEAKER) (test vzzs=363) 8.3 fL 6.5-10.5 NUCLEATED RED BLOOD CELLS (BEAKER) (test 0 /100 WBC 0-0 ysmw=957) NEUTROPHILS RELATIVE PERCENT (BEAKER) (test 69 % xiwv=868) LYMPHOCYTES RELATIVE PERCENT (BEAKER) (test 22 % ivta=683) MONOCYTES RELATIVE PERCENT (BEAKER) (test 5 % twxo=037) EOSINOPHILS RELATIVE PERCENT (BEAKER) (test 3 % gofq=307) BASOPHILS RELATIVE PERCENT (BEAKER) (test 0 % uhxi=642) NEUTROPHILS ABSOLUTE COUNT (BEAKER) (test 5.04 K/ L 1.80-8.00 qjtc=720) LYMPHOCYTES ABSOLUTE COUNT (BEAKER) (test 1.63 K/ L 1.48-4.50 flaf=198) MONOCYTES ABSOLUTE COUNT (BEAKER) (test 0.40 K/ L 0.00-1.30 txzb=265) EOSINOPHILS ABSOLUTE COUNT (BEAKER) (test 0.22 K/ L 0.00-0.50 qllt=860) BASOPHILS ABSOLUTE COUNT (BEAKER) (test 0.01 K/ L 0.00-0.20 lmmz=867) 0.00POCT-GLUCOSE [id number] 18:31:00 Test Item Value Reference Range Comments POC-GLUCOSE METER (BEAKER) 205 mg/dL 70-110 TESTED AT [facility] [address] [facility] (test zcaw=9344) [facility] [id number]
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
[2018-06-12] MEDS ORDERED: TETANUS & DIPHTHERIA TOX,ADULT 0.5 ML VIAL ONE (18:01)
[2018-06-12] MEDS ORDERED: CODEINE 30MG/APAP 300MG TAB ONE (18:19)
[2018-06-12 19:59] VITALS: BP 148/101; TEMP 97.3; O2SAT 97
== END 2018-06-12 18:26 | disposition home or self-care (01) ==
LOC: ER 17:17
DX: T24.232A Burn of second degree of left lower leg, initial encounter (principal); X03.0XXA Exposure to flames in controlled fire, not in building or structure, initial encounter; Y93.89 Activity, other specified; Y92.89 Other specified places as the place of occurrence of the external cause; Z23 Encounter for immunization; Z88.6 Allergy status to analgesic agent; Z88.8 Allergy status to other drugs, medicaments and biological substances; I10 Essential (primary) hypertension
CPT/HCPCS: 90714; 99283

== ENCOUNTER 2018-07-06 20:29 | Emergency (ER) | payer OTHER ==
--- OUTSIDE RECORDS SUMMARY | 2018-07-06 20:32 | XMS REPORT | Clinical Summary ---
:1965 Author Organization [facility] Address [address] [place] [address] Care Team Providers Name Role Phone Unavailable Primary Care Provider Unavailable Allergies Active Allergy Reactions Severity Noted Date Comments Ibuprofen 06/30/2016 Kidney problems Metformin 06/30/2016 Kidney problems Medications Medication Sig Dispensed Refills Start Date End Date Status atenolol (TENORMIN) Take 50 mg by mouth 0 Active 50 MG tablet daily. oxybutynin Take 5 mg by mouth 3 0 Active (DITROPAN) 5 MG (three) times daily. tablet pantoprazole Take 40 mg by mouth 0 Active (PROTONIX) 40 MG daily Before tablet breakfast . levothyroxine Take 75 mcg by mouth 0 Active (SYNTHROID, Every morning on an LEVOTHROID) 75 MCG empty stomach. tablet insulin detemir Inject 36 Units 0 Active (LEVEMIR) 100 subcutaneously 2 unit/mL (3 mL) InPn (two) times daily injection pen . insulin lispro Inject 20 Units 0 Active (HUMALOG) 100 subcutaneously 3 unit/mL injection (three) times daily before meals Sliding scale starts at 20 units . colchicine Take 0.6 mg by mouth 0 Active (COLCRYS) 0.6 mg 2 (two) times daily tablet as needed As needed for gout . amLODIPine Take 1 tablet (10 mg 30 tablet 0 07/05/2016 (NORVASC) 10 MG total) by mouth 8 tablet daily. Active Problems Problem Noted Date Epididymitis, [...] Not on file Results Not on fileafter 07/05/2017 Insurance Payer Benefit Plan / Group Subscriber ID Type Phone Address [facility] xxxxxxxxx Maps Contracted Advance Directives For more information, please contact:[address] [phone] Code Status Date Activated Date Inactivated Comments Full Code 06/30/2016 7:46 PM 07/04/2016 5:23 PM This code status was determined by: Patient
--- OUTSIDE RECORDS SUMMARY | 2018-07-06 20:33 | XMS REPORT ---
:1965 [facility] Address [address] [place] [address] Care Team Providers Name Role Phone FAITH GOMEZ Unavailable Unavailable Problems This patient has no known problems. Allergies, Adverse Reactions, Alerts This patient has no known allergies or adverse reactions. Medications This patient has no known medications. Results Test Description Test Time Test Comments Text Results Atomic Results Result Comments BLOOD CULTURE 2016-07-07 14:28:00 Test Item Value Reference Range Comments CULTURE (BEAKER) (test nxbm=1831) No growth in 5 days POCT-GLUCOSE [id number] 12:04:00 Test Item Value Reference Range Comments POC-GLUCOSE METER (BEAKER) 179 mg/dL 70-[address] [facility] [address] [facility] (test wdwp=9775) [facility] [address] BASIC METABOLIC [id number] 09:51:00 Test Item Value Reference Range Comments SODIUM (BEAKER) (test 137 meq/L 136-145 mlun=462) POTASSIUM (BEAKER) (test 3.7 meq/L 3.5-5.1 zngo=374) CHLORIDE (BEAKER) (test 102 meq/L 98-107 kivm=646) CO2 (BEAKER) (test 25 meq/L 22-29 cied=331) BLOOD UREA NITROGEN 17 mg/dL 7-21 (BEAKER) (test jixa=840) CREATININE (BEAKER) (test 1.04 mg/dL 0.57-1.25 wplf=506) GLUCOSE RANDOM (BEAKER) 195 mg/dL 70-105 (test opsp=290) CALCIUM (BEAKER) (test 9.2 mg/dL 8.4-10.2 mfqg=583) EGFR (BEAKER) (test 76 mL/min/1.73 sq m ESTIMATED GFR IS NOT mfzc=4431) ACCURATE CREATININE CLEARANCE IN PREDICTING GLOMERULAR FILTRATION RATE. ESTIMATED GFR IS NOT APPLICABLE FOR DIALYSIS PATIENTS. CBC W/PLT COUNT & AUTO [id number] 09:20:00 Test Item Value Reference Range Comments WHITE BLOOD CELL COUNT (BEAKER) (test jpym=005) 6.1 K/ L 4.0-10.0 RED BLOOD CELL COUNT (BEAKER) (test cobk=986) 4.63 M/ L 4.20-5.80 HEMOGLOBIN (BEAKER) (test calp=943) 13.7 GM/DL 13.0-16.8 HEMATOCRIT (BEAKER) (test afan=505) 39.8 % 40.0-50.0 MEAN CORPUSCULAR VOLUME (BEAKER) (test ybmn=610) 85.9 fL 82.0-98.0 MEAN CORPUSCULAR HEMOGLOBIN (BEAKER) (test 29.6 pg 27.0-33.0 roms=507) MEAN CORPUSCULAR HEMOGLOBIN CONC (BEAKER) (test 34.5 GM/DL 32.0-36.0 pdrr=298) RED CELL DISTRIBUTION WIDTH (BEAKER) (test 14.8 % 10.3-14.2 qcgt=696) PLATELET COUNT (BEAKER) (test dffr=670) 143 K/CU MM 150-430 MEAN PLATELET VOLUME (BEAKER) (test sdze=289) 8.6 fL 6.5-10.5 NUCLEATED RED BLOOD CELLS (BEAKER) (test 0 /100 WBC 0-0 ljya=655) NEUTROPHILS RELATIVE PERCENT (BEAKER) (test 71 % cphh=892) LYMPHOCYTES RELATIVE PERCENT (BEAKER) (test 20 % shte=886) MONOCYTES RELATIVE PERCENT (BEAKER) (test 5 % aqse=007) EOSINOPHILS RELATIVE PERCENT (BEAKER) (test 3 % jjne=106) BASOPHILS RELATIVE PERCENT (BEAKER) (test 1 % srvk=138) NEUTROPHILS ABSOLUTE COUNT (BEAKER) (test 4.31 K/ L 1.80-8.00 lzxk=177) LYMPHOCYTES ABSOLUTE COUNT (BEAKER) (test 1.23 K/ L 1.48-4.50 qzki=016) MONOCYTES ABSOLUTE COUNT (BEAKER) (test 0.28 K/ L 0.00-1.30 tqsr=132) EOSINOPHILS ABSOLUTE COUNT (BEAKER) (test 0.21 K/ L 0.00-0.50 orte=225) BASOPHILS ABSOLUTE COUNT (BEAKER) (test 0.03 K/ L 0.00-0.20 czoi=601) 0.00POCT-GLUCOSE [id number] 07:15:00 Test Item Value Reference Range Comments POC-GLUCOSE METER (BEAKER) 246 mg/dL 70-110 TESTED AT [address] (test kfyz=1648) [place] [address] POCT-GLUCOSE [id number] 21:12:00 Test Item Value Reference Range Comments POC-GLUCOSE METER (BEAKER) 89 mg/dL 70-110 TESTED AT [address] (test tawi=9827) [place] [id number] POCT-GLUCOSE [id number] 17:12:00 Test Item Value Reference Range Comments POC-GLUCOSE METER (BEAKER) 217 mg/dL 70-110 TESTED AT [address] (test dbtt=1592) [place] [address] URINE [id number] 12:07:00 Test Item Value Reference Range Comments CULTURE (AKER) (test tkpi=6187) <10,000 col/mL skin candi POCT-GLUCOSE [id number] 11:30:00 Test Item Value Reference Range Comments POC-GLUCOSE METER (BEAKER) 205 mg/dL 70-110 TESTED AT [address] (test gqic=9027) [place] [id number] POCT-GLUCOSE [id number] 07:36:00 Test Item Value Reference Range Comments POC-GLUCOSE METER (BEAKER) 195 mg/dL 70-110 TESTED AT [address] (test voqu=7545) [place] [address] CBC W/PLT COUNT & AUTO [id number] 05:14:00 Test Item Value Reference Range Comments WHITE BLOOD CELL COUNT (BEAKER) (test pwoj=490) 6.7 K/ L 4.0-10.0 RED BLOOD CELL COUNT (BEAKER) (test jjzc=856) 4.40 M/ L 4.20-5.80 HEMOGLOBIN (BEAKER) (test jxwk=040) 13.3 GM/DL 13.0-16.8 HEMATOCRIT (BEAKER) (test lhim=656) 38.2 % 40.0-50.0 MEAN CORPUSCULAR VOLUME (BEAKER) (test ppyh=400) 86.8 fL 82.0-98.0 MEAN CORPUSCULAR HEMOGLOBIN (BEAKER) (test 30.1 pg 27.0-33.0 ugda=236) MEAN CORPUSCULAR HEMOGLOBIN CONC (BEAKER) (test 34.7 GM/DL 32.0-36.0 drrc=631) RED CELL DISTRIBUTION WIDTH (BEAKER) (test 14.7 % 10.3-14.2 ixtw=095) PLATELET COUNT (BEAKER) (test zkyk=597) 144 K/CU MM 150-430 MEAN PLATELET VOLUME (BEAKER) (test bvdt=886) 9.0 fL 6.5-10.5 NUCLEATED RED BLOOD CELLS (BEAKER) (test 0 /100 WBC 0-0 waso=045) NEUTROPHILS RELATIVE PERCENT (BEAKER) (test 67 % dnnl=934) LYMPHOCYTES RELATIVE PERCENT (BEAKER) (test 25 % nues=602) MONOCYTES RELATIVE PERCENT (BEAKER) (test 5 % rntq=139) EOSINOPHILS RELATIVE PERCENT (BEAKER) (test 2 % vnqc=724) BASOPHILS RELATIVE PERCENT (BEAKER) (test 0 % uujs=948) NEUTROPHILS ABSOLUTE COUNT (BEAKER) (test 4.52 K/ L 1.80-8.00 khap=981) LYMPHOCYTES ABSOLUTE COUNT (BEAKER) (test 1.70 K/ L 1.48-4.50 tdyv=613) MONOCYTES ABSOLUTE COUNT (BEAKER) (test 0.32 K/ L 0.00-1.30 mggg=700) EOSINOPHILS ABSOLUTE COUNT (BEAKER) (test 0.16 K/ L 0.00-0.50 bfzp=467) BASOPHILS ABSOLUTE COUNT (BEAKER) (test 0.03 K/ L 0.00-0.20 xmda=740) [facility] [id number] 05:14:00 Test Item Value Reference Range Comments SODIUM (BEAKER) (test 134 meq/L 136-145 bdzj=029) POTASSIUM (BEAKER) (test 4.2 meq/L 3.5-5.1 ismk=755) CHLORIDE (BEAKER) (test 101 meq/L 98-107 qntv=765) CO2 (BEAKER) (test 24 meq/L 22-29 huph=442) BLOOD UREA NITROGEN 20 mg/dL 7-21 (BEAKER) (test uwwl=521) CREATININE (BEAKER) (test 1.16 mg/dL 0.57-1.25 muzp=974) GLUCOSE RANDOM (BEAKER) 216 mg/dL 70-105 (test bgow=176) CALCIUM (BEAKER) (test 8.8 mg/dL 8.4-10.2 drjb=389) EGFR (BEAKER) (test 67 mL/min/1.73 sq m ESTIMATED GFR IS NOT xnln=5009) ACCURATE CREATININE CLEARANCE IN PREDICTING GLOMERULAR FILTRATION RATE. ESTIMATED GFR IS NOT APPLICABLE FOR DIALYSIS PATIENTS. POCT-GLUCOSE [id number] 21:04:00 Test Item Value Reference Range Comments POC-GLUCOSE METER (BEAKER) 178 mg/dL 70-110 TESTED AT [address] (test vmmo=8998) [place] [id number] POCT-GLUCOSE [id number] 17:07:00 Test Item Value Reference Range Comments POC-GLUCOSE METER (BEAKER) 88 mg/dL 70-110 TESTED AT [address] (test wfnn=8018) [place] [id number] POCT-GLUCOSE [id number] 12:30:00 Test Item Value Reference Range Comments POC-GLUCOSE METER (BEAKER) 107 mg/dL 70-110 TESTED AT [address] (test ntyh=7330) [facility] [address] POCT-GLUCOSE [id number] 07:46:00 Test Item Value Reference Range Comments POC-GLUCOSE METER (BEAKER) 169 mg/dL 70-110 TESTED AT [address] (test axzn=1922) [facility] [address] CBC W/PLT COUNT & AUTO [id number] 07:42:00 Test Item Value Reference Range Comments WHITE BLOOD CELL COUNT (BEAKER) (test juch=125) 6.5 K/ L 4.0-10.0 RED BLOOD CELL COUNT (BEAKER) (test bxot=847) 4.57 M/ L 4.20-5.80 HEMOGLOBIN (BEAKER) (test oeoz=873) 13.4 GM/DL 13.0-16.8 HEMATOCRIT (BEAKER) (test omcy=228) 40.4 % 40.0-50.0 MEAN CORPUSCULAR VOLUME (BEAKER) (test bpit=641) 88.3 fL 82.0-98.0 MEAN CORPUSCULAR HEMOGLOBIN (BEAKER) (test 29.3 pg 27.0-33.0 llmf=076) MEAN CORPUSCULAR HEMOGLOBIN CONC (BEAKER) (test 33.2 GM/DL 32.0-36.0 rwnz=835) RED CELL DISTRIBUTION WIDTH (BEAKER) (test 13.8 % 10.3-14.2 bgtm=353) PLATELET COUNT (BEAKER) (test ykcb=034) 150 K/CU MM 150-430 MEAN PLATELET VOLUME (BEAKER) (test hwug=245) 9.0 fL 6.5-10.5 NUCLEATED RED BLOOD CELLS (BEAKER) (test 0 /100 WBC 0-0 wwfh=207) NEUTROPHILS RELATIVE PERCENT (BEAKER) (test 64 % algl=269) LYMPHOCYTES RELATIVE PERCENT (BEAKER) (test 26 % hufr=212) MONOCYTES RELATIVE PERCENT (BEAKER) (test 7 % iymd=099) EOSINOPHILS RELATIVE PERCENT (BEAKER) (test 3 % dbgc=533) BASOPHILS RELATIVE PERCENT (BEAKER) (test 0 % xuha=178) NEUTROPHILS ABSOLUTE COUNT (BEAKER) (test 4.13 K/ L 1.80-8.00 mxli=157) LYMPHOCYTES ABSOLUTE COUNT (BEAKER) (test 1.66 K/ L 1.48-4.50 xlrg=994) MONOCYTES ABSOLUTE COUNT (BEAKER) (test 0.44 K/ L 0.00-1.30 nhls=092) EOSINOPHILS ABSOLUTE COUNT (BEAKER) (test 0.21 K/ L 0.00-0.50 krnt=891) BASOPHILS ABSOLUTE COUNT (BEAKER) (test 0.03 K/ L 0.00-0.20 lgrd=060) 0.00[facility] METABOLIC [id number] 06:13:00 Test Item Value Reference Range Comments SODIUM (BEAKER) (test 136 meq/L 136-145 auix=297) POTASSIUM (BEAKER) (test 3.6 meq/L 3.5-5.1 kmjp=303) CHLORIDE (BEAKER) (test 101 meq/L 98-107 antp=379) CO2 (BEAKER) (test 25 meq/L 22-29 nyvn=080) BLOOD UREA NITROGEN 18 mg/dL 7-21 (BEAKER) (test qvmv=752) CREATININE (BEAKER) (test 1.07 mg/dL 0.57-1.25 olqf=980) GLUCOSE RANDOM (BEAKER) 188 mg/dL 70-105 (test ymni=432) CALCIUM (BEAKER) (test 8.8 mg/dL 8.4-10.2 kydp=733) EGFR (BEAKER) (test 73 mL/min/1.73 sq m ESTIMATED GFR IS NOT vjmo=1327) ACCURATE CREATININE CLEARANCE IN PREDICTING GLOMERULAR FILTRATION RATE. ESTIMATED GFR IS NOT APPLICABLE FOR DIALYSIS PATIENTS. POCT-GLUCOSE [id number] 22:12:00 Test Item Value Reference Range Comments POC-GLUCOSE METER (BEAKER) 238 mg/dL 70-110 TESTED AT [address] (test etwr=6266) [place] [id number] POCT-GLUCOSE [id number] 17:25:00 Test Item Value Reference Range Comments POC-GLUCOSE METER (BEAKER) 102 mg/dL 70-110 TESTED AT [address] (test laxk=9192) [place] [address] URINALYSIS W/ [id number] 12:50:00 Test Item Value Reference Range Comments COLOR (BEAKER) (test afcx=633) Colorless CLARITY (BEAKER) (test itve=291) Clear SPECIFIC GRAVITY UA (BEAKER) (test vnfo=799) 1.002 1.001-1.035 PH UA (BEAKER) (test hlfs=236) 6.5 5.0-8.0 PROTEIN UA (BEAKER) (test jyzf=575) Negative Negative GLUCOSE UA (BEAKER) (test bevy=420) Negative Negative KETONES UA (BEAKER) (test rrbt=850) Negative Negative BILIRUBIN UA (BEAKER) (test olnv=867) Negative Negative BLOOD UA (BEAKER) (test axog=967) Negative Negative NITRITE UA (BEAKER) (test mboi=081) Negative Negative LEUKOCYTE ESTERASE UA (BEAKER) (test sclq=733) Negative Negative UROBILINOGEN UA (BEAKER) (test hrpx=731) 0.2 mg/dL 0.2-1.0 RBC UA (BEAKER) (test nmrd=045) 0 /HPF WBC UA (BEAKER) (test kdhs=844) < /HPF SOURCE(BEAKER) (test gcgz=1929) POCT-GLUCOSE [id number] 12:04:00 Test Item Value Reference Range Comments POC-GLUCOSE METER (BEAKER) 226 mg/dL 70-110 TESTED AT [place] [address] [facility] (test xubt=1248) [facility] [address] POCT-GLUCOSE [id number] 08:00:00 Test Item Value Reference Range Comments POC-GLUCOSE METER (BEAKER) 300 mg/dL 70-[address] [facility] [address] [facility] (test epnj=1214) [facility] [address] BASIC METABOLIC [id number] 06:50:00 Test Item Value Reference Range Comments SODIUM (BEAKER) (test 134 meq/L 136-145 yylv=843) POTASSIUM (BEAKER) (test 4.0 meq/L 3.5-5.1 wdpq=312) CHLORIDE (BEAKER) (test 98 meq/L 98-107 ebyc=777) CO2 (BEAKER) (test 26 meq/L 22-29 wjli=008) BLOOD UREA NITROGEN 18 mg/dL 7-21 (BEAKER) (test xpee=177) CREATININE (BEAKER) (test 1.25 mg/dL 0.57-1.25 pnku=791) GLUCOSE RANDOM (BEAKER) 349 mg/dL 70-105 (test ibcj=220) CALCIUM (BEAKER) (test 8.9 mg/dL 8.4-10.2 alou=689) EGFR (BEAKER) (test 61 mL/min/1.73 sq m ESTIMATED GFR IS NOT ciwh=5317) ACCURATE CREATININE CLEARANCE IN PREDICTING GLOMERULAR FILTRATION RATE. ESTIMATED GFR IS NOT APPLICABLE FOR DIALYSIS PATIENTS. CBC W/PLT COUNT & AUTO [id number] 06:01:00 Test Item Value Reference Range Comments WHITE BLOOD CELL COUNT (BEAKER) (test gdyu=979) 6.6 K/ L 4.0-10.0 RED BLOOD CELL COUNT (BEAKER) (test muhr=225) 4.79 M/ L 4.20-5.80 HEMOGLOBIN (BEAKER) (test mujb=152) 14.1 GM/DL 13.0-16.8 HEMATOCRIT (BEAKER) (test zkoc=042) 42.0 % 40.0-50.0 MEAN CORPUSCULAR VOLUME (BEAKER) (test pnlr=522) 87.7 fL 82.0-98.0 MEAN CORPUSCULAR HEMOGLOBIN (BEAKER) (test 29.5 pg 27.0-33.0 oyuo=989) MEAN CORPUSCULAR HEMOGLOBIN CONC (BEAKER) (test 33.6 GM/DL 32.0-36.0 omgz=214) RED CELL DISTRIBUTION WIDTH (BEAKER) (test 14.9 % 10.3-14.2 okvx=741) PLATELET COUNT (BEAKER) (test wrye=784) 157 K/CU MM 150-430 MEAN PLATELET VOLUME (BEAKER) (test bmza=536) 9.0 fL 6.5-10.5 NUCLEATED RED BLOOD CELLS (BEAKER) (test 0 /100 WBC 0-0 rftj=197) NEUTROPHILS RELATIVE PERCENT (BEAKER) (test 67 % qyyk=760) LYMPHOCYTES RELATIVE PERCENT (BEAKER) (test 23 % emjs=530) MONOCYTES RELATIVE PERCENT (BEAKER) (test 7 % qqyo=983) EOSINOPHILS RELATIVE PERCENT (BEAKER) (test 3 % bafg=147) BASOPHILS RELATIVE PERCENT (BEAKER) (test 0 % jbcs=814) NEUTROPHILS ABSOLUTE COUNT (BEAKER) (test 4.44 K/ L 1.80-8.00 zfck=818) LYMPHOCYTES ABSOLUTE COUNT (BEAKER) (test 1.51 K/ L 1.48-4.50 stuf=529) MONOCYTES ABSOLUTE COUNT (BEAKER) (test 0.43 K/ L 0.00-1.30 edpk=577) EOSINOPHILS ABSOLUTE COUNT (BEAKER) (test 0.21 K/ L 0.00-0.50 ooac=101) BASOPHILS ABSOLUTE COUNT (BEAKER) (test 0.03 K/ L 0.00-0.20 inhd=410) 0.00POCT-GLUCOSE [id number] 21:25:00 Test Item Value Reference Range Comments POC-GLUCOSE METER (BEAKER) 279 mg/dL 70-110 TESTED AT [address] (test mmon=3494) [facility] [address] HEMOGLOBIN [id number] 21:13:00 Test Item Value Reference Range Comments HEMOGLOBIN A1C (BEAKER) (test fgmp=342) 10.7 % 4.3-6.1 CBC W/PLT COUNT & AUTO [id number] 20:47:00 Test Item Value Reference Range Comments WHITE BLOOD CELL COUNT (BEAKER) (test nokw=026) 7.3 K/ L 4.0-10.0 RED BLOOD CELL COUNT (BEAKER) (test elvn=546) 5.25 M/ L 4.20-5.80 HEMOGLOBIN (BEAKER) (test ysbl=311) 15.7 GM/DL 13.0-16.8 HEMATOCRIT (BEAKER) (test psqc=794) 46.0 % 40.0-50.0 MEAN CORPUSCULAR VOLUME (BEAKER) (test hypk=371) 87.7 fL 82.0-98.0 MEAN CORPUSCULAR HEMOGLOBIN (BEAKER) (test 30.0 pg 27.0-33.0 njvn=750) MEAN CORPUSCULAR HEMOGLOBIN CONC (BEAKER) (test 34.2 GM/DL 32.0-36.0 tzqp=615) RED CELL DISTRIBUTION WIDTH (BEAKER) (test 13.8 % 10.3-14.2 wgnr=966) PLATELET COUNT (BEAKER) (test wxyi=242) 166 K/CU MM 150-430 MEAN PLATELET VOLUME (BEAKER) (test gfzd=461) 8.3 fL 6.5-10.5 NUCLEATED RED BLOOD CELLS (BEAKER) (test 0 /100 WBC 0-0 qllv=464) NEUTROPHILS RELATIVE PERCENT (BEAKER) (test 69 % ptft=058) LYMPHOCYTES RELATIVE PERCENT (BEAKER) (test 22 % vpgd=887) MONOCYTES RELATIVE PERCENT (BEAKER) (test 5 % umhy=462) EOSINOPHILS RELATIVE PERCENT (BEAKER) (test 3 % qqpg=293) BASOPHILS RELATIVE PERCENT (BEAKER) (test 0 % kqis=293) NEUTROPHILS ABSOLUTE COUNT (BEAKER) (test 5.04 K/ L 1.80-8.00 gosf=518) LYMPHOCYTES ABSOLUTE COUNT (BEAKER) (test 1.63 K/ L 1.48-4.50 xiii=386) MONOCYTES ABSOLUTE COUNT (BEAKER) (test 0.40 K/ L 0.00-1.30 juoi=076) EOSINOPHILS ABSOLUTE COUNT (BEAKER) (test 0.22 K/ L 0.00-0.50 myue=509) BASOPHILS ABSOLUTE COUNT (BEAKER) (test 0.01 K/ L 0.00-0.20 gmue=539) 0.00POCT-GLUCOSE [id number] 18:31:00 Test Item Value Reference Range Comments POC-GLUCOSE METER (BEAKER) 205 mg/dL 70-[address] [facility] [address] [facility] (test ouqv=1869) [facility] [address]
[2018-07-06 22:27] LABS: Absolute Lymphocytes (CBC) 1.1 K/uL (0.7-4.9); Absolute Monocytes 0.3 K/uL (0.1-1.3); Absolute Neutrophil 3.1 K/uL (1.8-8.0); Basophils % 1.2 % (0-1.3); Hematocrit 45.5 % (39.6-49.0); Lymphocytes % 23.5 % (15.3-44.8); Monocytes % 7.1 % (3.3-12.3); RBC Red Blood Cell Count 4.92 M/uL (4.33-5.43)
[2018-07-06 22:33] LABS: Protime INR 0.93
[2018-07-06 22:51] LABS: ALT/SGPT 80 U/L (12-78); AST/SGOT 41 U/L (15-37); Albumin 3.3 g/dL (3.4-5.0); Alkaline Phosphatase 197 U/L (45-117); BUN Blood Urea Nitrogen 31 mg/dL (7-18); Bicarbonate 28 mmol/L (21-32); Bilirubin Direct 0.2 mg/dL (0-0.2); Bilirubin Total 0.6 mg/dL (0.2-1.0); Magnesium 2.1 mg/dL (1.8-2.4); NT PRO-BNP 51 pg/mL (<125); Potassium 4.7 mmol/L (3.5-5.1); Protein, Total 7.2 g/dL (6.4-8.2); Sodium Level 133 mmol/L (136-145); Troponin (Emerg Dept Use Only) < 0.02 ng/mL (0.0-0.045)
[2018-07-06 22:56] LABS: Glucose Level 675 mg/dL (74-106)
[2018-07-06] MEDS ORDERED: INSULIN -REGULAR HUMAN 50 UNIT/0.5 ML ML ONE (23:31)
[2018-07-07] MEDS ORDERED: INSULIN -REGULAR HUMAN 50 UNIT/0.5 ML ML ONE ×2 (00:28→01:37)
[2018-07-07 00:52] LABS: Troponin (Emerg Dept Use Only) < 0.02 ng/mL (0.0-0.045)
[2018-07-07] MEDS ORDERED: NA CHLORIDE 0.9% 500 ML ONE (02:37)
--- NOTE | 2018-07-07 03:10 | ER ---
Nurse's Notes [facility] Name: Ramirez Chaudhari Age: 53 yrs Sex: Male : 1965 Arrival Date: 07/06/2018 Time: 20:31 Bed 27 [facility] MD: Diagnosis: Hyperglycemia, unspecified Presentation: 07/06 20:31 Presenting complaint: Patient states: He has been getting IV therapy for UTI, the past aj1 couple days he has been feeling fatigued and sleeping all day, he has also noticed an increased swelling in his legs and his hands. He is concerned that his infection is getting worse instead of better. Patient also reports that he has been having intermittent chest pains, for which he has been taking aspirin daily. Transition of care: patient was not received from another setting of care. Onset of symptoms was July 06, 2018. Risk Assessment: Do you want to hurt yourself or someone else? Patient reports no desire to harm self or others. Initial Sepsis Screen: Does the patient meet any 2 criteria? HR > 90 bpm. No. Patient's initial sepsis screen is negative. Does the patient have a suspected source of infection? Yes: Dysuria/Frequency/Urgency/UTI. Care prior to arrival: None. 20:31 Method Of Arrival: Wheelchair aj1 20:31 Acuity: NOHEMI 3 aj1 Triage Assessment: 21:02 General: Appears in no apparent distress. uncomfortable, Behavior is calm, cooperative, aj1 appropriate for age. Pain: Complains of pain in mid-sternal area, right leg and left leg. Neuro: Level of Consciousness is awake, alert, obeys commands, Oriented to person, place, time, situation. Cardiovascular: Reports chest pain, that is intermittent over the past 2 days. Denies chest pain at this time Heart tones S1 S2 present Patient's skin is warm and dry. Cardiovascular: Edema is 2+ to left ankle and right ankle. Respiratory: Airway is patent Respiratory effort is even, unlabored, Respiratory pattern is regular, symmetrical, Breath sounds are diminished Denies shortness of breath. GI: No signs and/or symptoms were reported involving the gastrointestinal system. : Valera in place to gravity drainage. Derm: No signs and/or symptoms reported regarding the dermatologic system. Musculoskeletal: No signs and/or symptoms reported regarding the musculoskeletal system. Historical: - Allergies: 20:58 Ibuprofen; aj1 20:58 metformin; aj1 - Home Meds: 20:58 atenolol 50 mg Oral tab 1 tab once daily [Active]; levothyroxine 75 mcg tab 1 tab once aj1 daily [Active]; Colcrys 0.6 mg Oral tab 1 tab bid prn gout [Active]; 21:02 Levemir 36 units subcutaneous soln twice a day [Active]; Novolog 22 units Sub-Q before aj1 meals [Active]; - PMHx: 21:02 ADD/ADHD; Diabetes - IDDM; GERD; Gout; High Cholesterol; Hydrocele Left Testicle; aj1 Hypertension; Hypothyroidism; Migraines; Paraplegia; Renal Disease; Spinal Stroke; - Immunization history:: Flu vaccine is up to date. - Social history:: Smoking status: Patient/guardian denies using tobacco. - Ebola Screening: : Patient denies travel to an Ebola-affected area in the 21 days before illness onset. Screenin:05 Abuse screen: Denies threats or abuse. Denies injuries from another. Nutritional aj1 screening: No deficits noted. Tuberculosis screening: No symptoms or risk factors identified. 07/07 02:36 Fall Risk Fall in past 12 months (25 points). Secondary diagnosis (15 points) impaired rv mobility, IV access (20 points). Ambulatory Aid- Crutches/Cane/Walker (15 pts). Gait- Weak (10 pts.). Mental Status- Oriented to own ability (0 pts). Total [place]era Fall Scale indicates High Risk Score (45 or more points). Fall prevention measures have been instituted. Side Rails Up X 2 Placed Close to Nursing Station Frequent Obs/Assessments Occuring Family Present and informed to notify staff if the need to leave the bedside As available patient and family educated on Fall Prevention Program and Strategies. Assessment: 07/06 21:05 Reassessment: see triage assessment. aj1 21:38 Reassessment: Patient appears in no apparent distress at this time. No changes from aj1 previously documented assessment. Patient and/or family updated on plan of care and expected duration. Pain level reassessed. Patient is alert, oriented x 3, equal unlabored respirations, skin warm/dry/pink. 23:24 Reassessment: Patient appears in no apparent distress at this time. Patient and/or rv family updated on plan of care and expected duration. Pain level reassessed. Patient is alert, oriented x 3, equal unlabored respirations, skin warm/dry/pink. 07/07 01:00 Reassessment: Patient appears in no apparent distress at this time. Patient and/or rv family updated on plan of care and expected duration. Pain level reassessed. Patient is alert, oriented x 3, equal unlabored respirations, skin warm/dry/pink. 02:36 Reassessment: Patient appears in no apparent distress at this time. Patient and/or rv family updated on plan of care and expected duration. Pain level reassessed. Patient is alert, oriented x 3, equal unlabored respirations, skin warm/dry/pink. blood sugar is going down. infusing bolus of NS and reevaluation after. Vital Signs: 07/06 21:02 BP 185 / 95; Pulse 95; Resp 18; Temp 98.5; Pulse Ox 95% on R/A; Weight 104.33 kg (R); aj1 Height 5 ft. 8 in. (172.72 cm) (R); Pain 5/10; 21:40 BP 161 / 101; Pulse 94; Resp 22; Pulse Ox 95% on R/A; aj1 23:24 BP 141 / 96; Pulse 92; Resp 18; Pulse Ox 96% ; rv 07/07 00:00 BP 144 / 101; Pulse 93; Resp 19; Pulse Ox 96% ; rv 00:30 BP 139 / 81; Pulse 104; Resp 18; Pulse Ox 96% ; rv 01:00 BP 123 / 80; Pulse 96; Resp 18; Pulse Ox 97% ; rv 01:30 BP 127 / 74; Pulse 103; Resp 20; Pulse Ox 97% ; rv 02:00 BP 116 / 73; Pulse 97; Resp 18; Pulse Ox 95% ; rv 02:30 BP 135 / 101; Pulse 97; Resp 20; Pulse Ox 96% ; rv 03:22 BP 114 / 77; Pulse 95; Resp 17; Pulse Ox 96% ; rv 07/06 21:02 Body Mass Index 34.97 (104.33 kg, 172.72 cm) aj1 ED Course: 07/06 20:31 Patient arrived in ED. aj1 20:33 Triage completed. aj1 20:54 Geneva Sharif, RN is Primary Nurse. aj1 21:02 Arm band placed on. aj1 21:05 Patient has correct armband on for positive identification. aj1 21:05 No provider procedures requiring assistance completed. Accessed PICC line. Flushes aj1 easily. 21:14 EKG done, by ED staff. aj1 21:56 Dev Oconnell MD is Attending Physician. tw4 22:21 XRAY Chest (1 view) In Process Unspecified. EDMS 07/07 03:24 MAINTAINED PIC LINE. FOR IV THERAPY. FLUSHED WITH NS BOTH PORTS. rv Administered Medications: 07/06 23:22 Drug: Insulin Regular Human 10 units {Co-Signature: ca1 (Kathy Beck RN).} Route: IVP; rv Site: right upper arm; 23:50 Follow up: Response: Blood sugar is lowered; blood sugar 500 rv 07/07 00:25 Drug: Insulin Regular Human 10 units {Co-Signature: ca1 (Kathy Beck RN).} Route: IVP; rv Site: right upper arm; 01:09 Follow up: Response: Blood sugar is lowered; blood sugar 478 rv 01:28 Drug: Insulin Regular Human 10 units {Co-Signature: ak1 (Chani Gray RN).} Route: IVP; rv Site: right upper arm; 02:27 Follow up: Response: Blood sugar is lowered; blood sugar 400 rv 01:30 Drug: Insulin Regular Human 8 units {Co-Signature: ak1 (Chani Gray RN).} Route: rv Sub-Q; Site: left upper arm; 02:28 Follow up: Response: Blood sugar is lowered rv 02:28 Drug: NS 0.9% 500 ml Route: IV; Rate: bolus; Site: right upper arm; rv 03:23 Follow up: IV Status: Completed infusion; IV Intake: 500ml rv Intake: 03:23 IV: 500ml; Total: 500ml. rv Output: 02:00 Urine: 1650ml (Valera); Total: 1650ml. rv 03:23 Urine: 500ml (Valera); Total: 2150ml. rv Outcome: 03:10 Discharge ordered by . tw4 03:24 Discharged to home via wheelchair. rv 03:24 Condition: good 03:24 Discharge instructions given to patient, family, Instructed on discharge instructions, follow up and referral plans. Demonstrated understanding of instructions, follow-up care. 03:25 Patient left the ED. rv Signatures: Dispatcher [employer] Geneva Garcia RN RN aj1 Dev Oconnell MD MD tw4 Bandar Martinez, RN RN rv Kathy Beck RN ca1 Chani Gray RN ak1
--- NOTE | 2018-07-07 03:11 | EDPHYS ---
Physician Documentation [facility] Name: Ramirez Chaudhari Age: 53 yrs Sex: Male : 1965 Arrival Date: 07/06/2018 Time: 20:31 Bed 27 Private MD: ED Physician Dev Oconnell HPI: 07/07 06:39 This 53 yrs old Male presents to ER via Wheelchair with complaints of Leg tw4 Swelling, Fatigue. 06:39 The patient presents with swelling. The complaints affect the lateral aspect of left tw4 calf, left calf, medial aspect of left calf and left hernandez, lateral aspect of right calf, right calf, medial aspect of right calf and right hernandez. Onset: The symptoms/episode began/occurred last week. Severity of symptoms: At their worst the symptoms were moderate, in the emergency department the symptoms are unchanged. Historical: - Allergies: 07/06 20:58 Ibuprofen; aj1 20:58 metformin; aj1 - Home Meds: 20:58 atenolol 50 mg Oral tab 1 tab once daily [Active]; levothyroxine 75 mcg tab 1 tab once aj1 daily [Active]; Colcrys 0.6 mg Oral tab 1 tab bid prn gout [Active]; 21:02 Levemir 36 units subcutaneous soln twice a day [Active]; Novolog 22 units Sub-Q before aj1 meals [Active]; - PMHx: 21:02 ADD/ADHD; Diabetes - IDDM; GERD; Gout; High Cholesterol; Hydrocele Left Testicle; aj1 Hypertension; Hypothyroidism; Migraines; Paraplegia; Renal Disease; Spinal Stroke; - Immunization history:: Flu vaccine is up to date. - Social history:: Smoking status: Patient/guardian denies using tobacco. - Ebola Screening: : Patient denies travel to an Ebola-affected area in the 21 days before illness onset. ROS: 07/07 06:39 Constitutional: Negative for fever, chills, and weight loss, Eyes: Negative for injury, tw4 pain, redness, and discharge, Cardiovascular: Negative for chest pain, palpitations, and edema, Respiratory: Negative for shortness of breath, cough, wheezing, and pleuritic chest pain, Abdomen/GI: Negative for abdominal pain, nausea, vomiting, diarrhea, and constipation, Skin: Negative for injury, rash, and discoloration, Neuro: Negative for headache, weakness, numbness, tingling, and seizure. MS/extremity: Positive for swelling. Exam: 06:39 Constitutional: This is a well developed, well nourished patient who is awake, alert, tw4 and in no acute distress. Head/Face: Normocephalic, atraumatic. Chest/axilla: Normal chest wall appearance and motion. Nontender with no deformity. No lesions are appreciated. Cardiovascular: Regular rate and rhythm with a normal S1 and S2. No gallops, murmurs, or rubs. Normal PMI, no JVD. No pulse deficits. Respiratory: Lungs have equal breath sounds bilaterally, clear to auscultation and percussion. No rales, rhonchi or wheezes noted. No increased work of breathing, no retractions or nasal flaring. Abdomen/GI: Soft, non-tender, with normal bowel sounds. No distension or tympany. No guarding or rebound. No evidence of tenderness throughout. Neuro: Awake and alert, GCS 15, oriented to person, place, time, and situation. Cranial nerves II-XII grossly intact. Motor strength 5/5 in all extremities. Sensory grossly intact. Cerebellar exam normal. Normal gait. Psych: Awake, alert, with orientation to person, place and time. Behavior, mood, and affect are within normal limits. 06:39 Musculoskeletal/extremity: Extremities: noted in the lateral aspect of left calf, left calf, medial aspect of left calf and left hernandez: swelling, noted in the lateral aspect of right calf, right calf, medial aspect of right calf and right hernandez: swelling. Vital Signs: 07/06 21:02 BP 185 / 95; Pulse 95; Resp 18; Temp 98.5; Pulse Ox 95% on R/A; Weight 104.33 kg (R); aj1 Height 5 ft. 8 in. (172.72 cm) (R); Pain 5/10; 21:40 BP 161 / 101; Pulse 94; Resp 22; Pulse Ox 95% on R/A; aj1 23:24 BP 141 / 96; Pulse 92; Resp 18; Pulse Ox 96% ; rv 07/07 00:00 BP 144 / 101; Pulse 93; Resp 19; Pulse Ox 96% ; rv 00:30 BP 139 / 81; Pulse 104; Resp 18; Pulse Ox 96% ; rv 01:00 BP 123 / 80; Pulse 96; Resp 18; Pulse Ox 97% ; rv 01:30 BP 127 / 74; Pulse 103; Resp 20; Pulse Ox 97% ; rv 02:00 BP 116 / 73; Pulse 97; Resp 18; Pulse Ox 95% ; rv 02:30 BP 135 / 101; Pulse 97; Resp 20; Pulse Ox 96% ; rv 03:22 BP 114 / 77; Pulse 95; Resp 17; Pulse Ox 96% ; rv 07/06 21:02 Body Mass Index 34.97 (104.33 kg, 172.72 cm) aj1 MDM: 07/06 21:56 Patient medically screened. 07/07 06:39 Differential diagnosis: dislocation, open fracture, closed fracture. Data reviewed: vital signs, nurses notes. Data interpreted: Pulse oximetry: Interpretation: normal. Counseling: I had a detailed discussion with the patient and/or guardian regarding: the historical points, exam findings, and any diagnostic results supporting the discharge/admit diagnosis, lab results, radiology results. Special discussion: Based on the patient's history, exam, and Dx evaluation, there is no indication for emergent intervention or inpatient Tx. It is understood by the patient/guardian that if the Sx's persist or worsen they need to return immediately for re-evaluation. I discussed with the patient/guardian in detail that at this point there is no indication for admission to the hospital. It is understood, however, that if the symptoms persist or worsen the patient needs to return immediately for re-evaluation. 07/06 21:59 Order name: Basic Metabolic Panel; Complete Time: :07/07 01:04 Interpretation: Normal except: CRE 1.52; BUN 31; GLUC 675; NA 133; GFR 48. 07/06 21:59 Order name: CBC with Diff; Complete Time: :07/07 01:04 Interpretation: Normal except: MCV 92.5; PLT 114; MPV 12.0. 07/06 21:59 Order name: LFT's; Complete Time: 01:07/07 01:05 Interpretation: Normal except: AST 41; ALT 80; ALK 197; ALB 3.3; GLOB 3.9; A/G 0.8. 07/06 21:59 Order name: Magnesium 07/06 21:59 Order name: NT PRO-BNP 07/06 21:59 Order name: PT-INR 07/06 21:59 Order name: Troponin (emerg Dept Use Only) 07/06 21:59 Order name: XRAY Chest (1 view) 07/06 23:46 Order name: Glucose; Complete Time: 01:05 bb 07/07 01:05 Interpretation: Abnormal. 4 07/07 00:04 Order name: Ketone, Serum 4 07/07 00:04 Order name: Troponin (emerg Dept Use Only) 4 07/07 01:10 Order name: Glucose rv 07/07 01:17 Order name: Glucose, Ancillary Testing; Complete Time: 01:20 EDMS 07/07 01:20 Interpretation: Abnormal. 07/06 21:14 Order name: EKG - Nurse/Tech; Complete Time: 21:14 [facility] 07/06 21:59 Order name: EKG; Complete Time: 21:59 07/06 21:59 Order name: Cardiac monitoring; Complete Time: 22:25 07/06 21:59 Order name: EKG - Nurse/Tech; Complete Time: 22:00 07/06 21:59 Order name: IV Saline Lock; Complete Time: 22:25 07/06 21:59 Order name: Labs collected and sent; Complete Time: 22:25 07/06 21:59 Order name: O2 Per Protocol; Complete Time: 22:25 07/06 21:59 Order name: O2 Sat Monitoring; Complete Time: 22:26 Administered Medications: 07/06 23:22 Drug: Insulin Regular Human 10 units {Co-Signature: ca1 (Kathy Beck RN).} Route: IVP; rv Site: right upper arm; 23:50 Follow up: Response: Blood sugar is lowered; blood sugar 500 rv 07/07 00:25 Drug: Insulin Regular Human 10 units {Co-Signature: ca1 (Kathy Beck RN).} Route: IVP; rv Site: right upper arm; 01:09 Follow up: Response: Blood sugar is lowered; blood sugar 478 rv 01:28 Drug: Insulin Regular Human 10 units {Co-Signature: ak1 (Chani Gray RN).} Route: IVP; rv Site: right upper arm; 02:27 Follow up: Response: Blood sugar is lowered; blood sugar 400 rv 01:30 Drug: Insulin Regular Human 8 units {Co-Signature: ak1 (Chani Gray RN).} Route: rv Sub-Q; Site: left upper arm; 02:28 Follow up: Response: Blood sugar is lowered rv 02:28 Drug: NS 0.9% 500 ml Route: IV; Rate: bolus; Site: right upper arm; rv 03:23 Follow up: IV Status: Completed infusion; IV Intake: 500ml rv Disposition: 07/07/18 03:10 Discharged to Home. Impression: Hyperglycemia, unspecified. - Condition is Stable. - Discharge Instructions: Nonspecific Chest Pain, Hyperglycemia, Blood Glucose Monitoring, Adult, Hyperglycemia, [id number]. - Medication Reconciliation Form, Thank You Letter, Antibiotic Education, Prescription Opioid Use form. - Follow up: Private Physician; When: Upon discharge from the Emergency Department; Reason: If symptoms return, Recheck today's complaints, Continuance of care. - Problem is new. - Symptoms have improved. Signatures: Dispatcher [employer] Geneva Garcia RN RN aj1 Dev Oconnell MD MD tw4 Bandar Martinez RN RN rv Kathy Beck RN ca1 Chani Gray RN ak1 Corrections: (The following items were deleted from the chart) 03:25 03:10 07/07/2018 03:10 Discharged to Home. Impression: Hyperglycemia, unspecified. rv Condition is Stable. Forms are Medication Reconciliation Form, Thank You Letter, Antibiotic Education, Prescription Opioid Use. Follow up: Private Physician; When: Upon discharge from the Emergency Department; Reason: If symptoms return, Recheck today's complaints, Continuance of care. Problem is new. Symptoms have improved. tw4
[2018-07-07 03:32] VITALS: TEMP 98.5
[2018-07-07 03:43] VITALS: O2SAT 96
[2018-07-07 03:44] VITALS: BP 114/77
--- NOTE | 2018-07-07 07:32 | RAD REPORT ---
EXAM DESCRIPTION: RAD - Chest Single View - 07/06/2018 10:20 pm CLINICAL HISTORY: Chest pain COMPARISON: July 02 TECHNIQUE: AP portable chest image was obtained 2218 hours . FINDINGS: Lung volumes are low. No focal lung parenchymal process. Lung markings match comparison. P ICC line remains in place in good position. Heart and vasculature are normal. No measurable pleural e ffusion and no pneumothorax. No acute bony abnormality seen. No acute aortic findings suspected. IMPRESSION: No acute cardiopulmonary process. No significant interval change.
--- NOTE | 2018-07-07 16:51 | EKG ---
Test Date: 2018-07-06 Test Time: 21:15:30 [employer]vester: DESMOND MEASUREMENT RESULTS: Intervals: Rate: 91 NC: 124 QRSD: 112 QT: 366 QTc: 450 Wray: P: 9 NC: 124 QRS: 82 T: 5 INTERPRETIVE STATEMENTS: Normal sinus rhythm Incomplete right bundle branch block Borderline ECG Compared to ECG 11/23/2016 16:56:09 Incomplete right bundle-branch block now present Sinus tachycardia no longer present Ventricular premature complex(es) no longer present Right bundle-branch block no longer present Electronically Signed On 07-07-18 16:50:00 CDT by Solomon Porter
== END 2018-07-07 03:25 | disposition home or self-care (01) ==
LOC: ER 20:29
DX: E11.65 Type 2 diabetes mellitus with hyperglycemia (principal); I10 Essential (primary) hypertension; E03.9 Hypothyroidism, unspecified; F90.9 Attention-deficit hyperactivity disorder, unspecified type; Z79.4 Long term (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; Z88.6 Allergy status to analgesic agent; Z88.8 Allergy status to other drugs, medicaments and biological substances
CPT/HCPCS: 36415; 71045; 80048; 80076; 82010; 82947; 82962; 83735; 83880; 84484; 85025; 85610; 93005; 96361; 96372; 96374; 99284

== ENCOUNTER 2018-08-15 10:50 | Inpatient (IN) | payer OTHER ==
--- OUTSIDE RECORDS SUMMARY | 2018-08-15 10:53 | XMS REPORT | Clinical Summary ---
:1965 Author Organization [facility] Address [address] [place] [address] Care Team Providers Name Role Phone Unavailable [...] starts at 20 units . colchicine (COLCRYS) Take 0.6 mg by mouth 0 Active 0.6 mg tablet 2 (two) times daily as needed As needed for gout . Active Problems Problem Noted Date Epididymitis, left [...] Not on file Results Not on fileafter 08/14/2017 Insurance Payer Benefit Plan / Group Subscriber ID Type Phone Address [employer] xxxxxxxxx Maps Contracted Advance Directives For more information, please contact:[address] [phone] Code Status Date Activated Date Inactivated Comments Full Code 06/30/2016 7:46 PM 07/04/2016 5:23 PM This code status was determined by: Patient
--- OUTSIDE RECORDS SUMMARY | 2018-08-15 10:54 | XMS REPORT ---
:1965 Author Organization [facility] Address [address] [place] [address] Care Team Providers Name Role Phone FAITH GOMEZ Unavailable Unavailable Problems This patient has no known problems. Allergies, Adverse Reactions, Alerts This patient has no known allergies or adverse reactions. Medications This patient has no known medications. Results Test Description Test Time Test Comments Text Results Atomic Results Result Comments BLOOD CULTURE 2016-07-07 14:28:00 Test Item Value Reference Range Comments CULTURE (BEAKER) (test upvs=2792) No growth in 5 days POCT-GLUCOSE [id number] 12:04:00 Test Item Value Reference Range Comments POC-GLUCOSE METER (BEAKER) 179 mg/dL 70-110 TESTED AT [facility] [address] [facility] (test pfrk=8678) [facility] [address] BASIC METABOLIC [id number] 09:51:00 Test Item Value Reference Range Comments SODIUM (BEAKER) (test 137 meq/L 136-145 ncto=702) POTASSIUM (BEAKER) (test 3.7 meq/L 3.5-5.1 cpjx=144) CHLORIDE (BEAKER) (test 102 meq/L 98-107 wexv=161) CO2 (BEAKER) (test 25 meq/L 22-29 gxyc=660) BLOOD UREA NITROGEN 17 mg/dL 7-21 (BEAKER) (test pidp=613) CREATININE (BEAKER) (test 1.04 mg/dL 0.57-1.25 wcnd=862) GLUCOSE RANDOM (BEAKER) 195 mg/dL 70-105 (test sjpr=736) CALCIUM (BEAKER) (test 9.2 mg/dL 8.4-10.2 marf=669) EGFR (BEAKER) (test 76 mL/min/1.73 sq m ESTIMATED GFR IS NOT yfwm=9542) ACCURATE CREATININE CLEARANCE IN PREDICTING GLOMERULAR FILTRATION RATE. ESTIMATED GFR IS NOT APPLICABLE FOR DIALYSIS PATIENTS. CBC W/PLT COUNT & AUTO [id number] 09:20:00 Test Item Value Reference Range Comments WHITE BLOOD CELL COUNT (BEAKER) (test wosx=434) 6.1 K/ L 4.0-10.0 RED BLOOD CELL COUNT (BEAKER) (test ocwi=540) 4.63 M/ L 4.20-5.80 HEMOGLOBIN (BEAKER) (test fojw=662) 13.7 GM/DL 13.0-16.8 HEMATOCRIT (BEAKER) (test elpi=489) 39.8 % 40.0-50.0 MEAN CORPUSCULAR VOLUME (BEAKER) (test gqvv=304) 85.9 fL 82.0-98.0 MEAN CORPUSCULAR HEMOGLOBIN (BEAKER) (test 29.6 pg 27.0-33.0 xhzy=345) MEAN CORPUSCULAR HEMOGLOBIN CONC (BEAKER) (test 34.5 GM/DL 32.0-36.0 otcb=253) RED CELL DISTRIBUTION WIDTH (BEAKER) (test 14.8 % 10.3-14.2 seef=783) PLATELET COUNT (BEAKER) (test pyqh=547) 143 K/CU MM 150-430 MEAN PLATELET VOLUME (BEAKER) (test nuor=858) 8.6 fL 6.5-10.5 NUCLEATED RED BLOOD CELLS (BEAKER) (test 0 /100 WBC 0-0 mogk=775) NEUTROPHILS RELATIVE PERCENT (BEAKER) (test 71 % fjia=553) LYMPHOCYTES RELATIVE PERCENT (BEAKER) (test 20 % dpii=658) MONOCYTES RELATIVE PERCENT (BEAKER) (test 5 % sbth=944) EOSINOPHILS RELATIVE PERCENT (BEAKER) (test 3 % gpja=445) BASOPHILS RELATIVE PERCENT (BEAKER) (test 1 % dqkh=324) NEUTROPHILS ABSOLUTE COUNT (BEAKER) (test 4.31 K/ L 1.80-8.00 latm=010) LYMPHOCYTES ABSOLUTE COUNT (BEAKER) (test 1.23 K/ L 1.48-4.50 yatu=884) MONOCYTES ABSOLUTE COUNT (BEAKER) (test 0.28 K/ L 0.00-1.30 ozwc=796) EOSINOPHILS ABSOLUTE COUNT (BEAKER) (test 0.21 K/ L 0.00-0.50 tpgc=527) BASOPHILS ABSOLUTE COUNT (BEAKER) (test 0.03 K/ L 0.00-0.20 khlp=459) 0.00POCT-GLUCOSE [id number] 07:15:00 Test Item Value Reference Range Comments POC-GLUCOSE METER (BEAKER) 246 mg/dL 70-110 TESTED AT [address] (test bieq=9462) [place] [address] POCT-GLUCOSE [id number] 21:12:00 Test Item Value Reference Range Comments POC-GLUCOSE METER (BEAKER) 89 mg/dL 70-110 TESTED AT [address] (test mxxt=0825) [place] [id number] POCT-GLUCOSE [id number] 17:12:00 Test Item Value Reference Range Comments POC-GLUCOSE METER (BEAKER) 217 mg/dL 70-110 TESTED AT [address] (test jgkz=9038) [place] [address] URINE [id number] 12:07:00 Test Item Value Reference Range Comments CULTURE (AKER) (test euxc=2514) <10,000 col/mL skin candi POCT-GLUCOSE [id number] 11:30:00 Test Item Value Reference Range Comments POC-GLUCOSE METER (BEAKER) 205 mg/dL 70-110 TESTED AT [address] (test qqml=3289) [place] [id number] POCT-GLUCOSE [id number] 07:36:00 Test Item Value Reference Range Comments POC-GLUCOSE METER (BEAKER) 195 mg/dL 70-110 TESTED AT [address] (test bybg=1274) [place] [address] CBC W/PLT COUNT & AUTO [id number] 05:14:00 Test Item Value Reference Range Comments WHITE BLOOD CELL COUNT (BEAKER) (test tfan=523) 6.7 K/ L 4.0-10.0 RED BLOOD CELL COUNT (BEAKER) (test ljqq=949) 4.40 M/ L 4.20-5.80 HEMOGLOBIN (BEAKER) (test chyp=455) 13.3 GM/DL 13.0-16.8 HEMATOCRIT (BEAKER) (test tdgf=655) 38.2 % 40.0-50.0 MEAN CORPUSCULAR VOLUME (BEAKER) (test qcuw=004) 86.8 fL 82.0-98.0 MEAN CORPUSCULAR HEMOGLOBIN (BEAKER) (test 30.1 pg 27.0-33.0 lxnq=065) MEAN CORPUSCULAR HEMOGLOBIN CONC (BEAKER) (test 34.7 GM/DL 32.0-36.0 amqx=716) RED CELL DISTRIBUTION WIDTH (BEAKER) (test 14.7 % 10.3-14.2 edok=047) PLATELET COUNT (BEAKER) (test uizw=287) 144 K/CU MM 150-430 MEAN PLATELET VOLUME (BEAKER) (test vntw=991) 9.0 fL 6.5-10.5 NUCLEATED RED BLOOD CELLS (BEAKER) (test 0 /100 WBC 0-0 fjan=920) NEUTROPHILS RELATIVE PERCENT (BEAKER) (test 67 % fvkd=250) LYMPHOCYTES RELATIVE PERCENT (BEAKER) (test 25 % uzeb=013) MONOCYTES RELATIVE PERCENT (BEAKER) (test 5 % mftc=731) EOSINOPHILS RELATIVE PERCENT (BEAKER) (test 2 % avwc=349) BASOPHILS RELATIVE PERCENT (BEAKER) (test 0 % epiv=994) NEUTROPHILS ABSOLUTE COUNT (BEAKER) (test 4.52 K/ L 1.80-8.00 cxkd=830) LYMPHOCYTES ABSOLUTE COUNT (BEAKER) (test 1.70 K/ L 1.48-4.50 fxht=688) MONOCYTES ABSOLUTE COUNT (BEAKER) (test 0.32 K/ L 0.00-1.30 srpw=168) EOSINOPHILS ABSOLUTE COUNT (BEAKER) (test 0.16 K/ L 0.00-0.50 fomm=835) BASOPHILS ABSOLUTE COUNT (BEAKER) (test 0.03 K/ L 0.00-0.20 rkpz=475) [facility] [id number] 05:14:00 Test Item Value Reference Range Comments SODIUM (BEAKER) (test 134 meq/L 136-145 nfzq=312) POTASSIUM (BEAKER) (test 4.2 meq/L 3.5-5.1 abnr=070) CHLORIDE (BEAKER) (test 101 meq/L 98-107 laub=636) CO2 (BEAKER) (test 24 meq/L 22-29 orls=066) BLOOD UREA NITROGEN 20 mg/dL 7-21 (BEAKER) (test pyfd=923) CREATININE (BEAKER) (test 1.16 mg/dL 0.57-1.25 zuvf=913) GLUCOSE RANDOM (BEAKER) 216 mg/dL 70-105 (test aqlp=556) CALCIUM (BEAKER) (test 8.8 mg/dL 8.4-10.2 fusi=559) EGFR (BEAKER) (test 67 mL/min/1.73 sq m ESTIMATED GFR IS NOT luwk=2327) ACCURATE CREATININE CLEARANCE IN PREDICTING GLOMERULAR FILTRATION RATE. ESTIMATED GFR IS NOT APPLICABLE FOR DIALYSIS PATIENTS. POCT-GLUCOSE [id number] 21:04:00 Test Item Value Reference Range Comments POC-GLUCOSE METER (BEAKER) 178 mg/dL 70-110 TESTED AT [address] (test zjtk=7018) [place] [id number] POCT-GLUCOSE [id number] 17:07:00 Test Item Value Reference Range Comments POC-GLUCOSE METER (BEAKER) 88 mg/dL 70-110 TESTED AT [address] (test mivb=8319) [place] [id number] POCT-GLUCOSE [id number] 12:30:00 Test Item Value Reference Range Comments POC-GLUCOSE METER (BEAKER) 107 mg/dL 70-110 TESTED AT [address] (test ionr=2510) [facility] [address] POCT-GLUCOSE [id number] 07:46:00 Test Item Value Reference Range Comments POC-GLUCOSE METER (BEAKER) 169 mg/dL 70-110 TESTED AT [address] (test wlte=6124) [facility] [address] CBC W/PLT COUNT & AUTO [id number] 07:42:00 Test Item Value Reference Range Comments WHITE BLOOD CELL COUNT (BEAKER) (test cpsh=839) 6.5 K/ L 4.0-10.0 RED BLOOD CELL COUNT (BEAKER) (test jltt=451) 4.57 M/ L 4.20-5.80 HEMOGLOBIN (BEAKER) (test gufn=659) 13.4 GM/DL 13.0-16.8 HEMATOCRIT (BEAKER) (test hiws=658) 40.4 % 40.0-50.0 MEAN CORPUSCULAR VOLUME (BEAKER) (test uqfo=780) 88.3 fL 82.0-98.0 MEAN CORPUSCULAR HEMOGLOBIN (BEAKER) (test 29.3 pg 27.0-33.0 hthg=106) MEAN CORPUSCULAR HEMOGLOBIN CONC (BEAKER) (test 33.2 GM/DL 32.0-36.0 qrpg=619) RED CELL DISTRIBUTION WIDTH (BEAKER) (test 13.8 % 10.3-14.2 saiu=658) PLATELET COUNT (BEAKER) (test rxam=918) 150 K/CU MM 150-430 MEAN PLATELET VOLUME (BEAKER) (test oxof=169) 9.0 fL 6.5-10.5 NUCLEATED RED BLOOD CELLS (BEAKER) (test 0 /100 WBC 0-0 jfxu=727) NEUTROPHILS RELATIVE PERCENT (BEAKER) (test 64 % luqe=638) LYMPHOCYTES RELATIVE PERCENT (BEAKER) (test 26 % nokh=733) MONOCYTES RELATIVE PERCENT (BEAKER) (test 7 % wpdp=552) EOSINOPHILS RELATIVE PERCENT (BEAKER) (test 3 % gzhv=319) BASOPHILS RELATIVE PERCENT (BEAKER) (test 0 % kvuj=213) NEUTROPHILS ABSOLUTE COUNT (BEAKER) (test 4.13 K/ L 1.80-8.00 vrwf=892) LYMPHOCYTES ABSOLUTE COUNT (BEAKER) (test 1.66 K/ L 1.48-4.50 izmx=892) MONOCYTES ABSOLUTE COUNT (BEAKER) (test 0.44 K/ L 0.00-1.30 mvzh=984) EOSINOPHILS ABSOLUTE COUNT (BEAKER) (test 0.21 K/ L 0.00-0.50 gqkl=145) BASOPHILS ABSOLUTE COUNT (BEAKER) (test 0.03 K/ L 0.00-0.20 vibn=595) 0.00BASI METABOLIC [id number] 06:13:00 Test Item Value Reference Range Comments SODIUM (BEAKER) (test 136 meq/L 136-145 ixxt=563) POTASSIUM (BEAKER) (test 3.6 meq/L 3.5-5.1 sddu=108) CHLORIDE (BEAKER) (test 101 meq/L 98-107 hocj=084) CO2 (BEAKER) (test 25 meq/L 22-29 jygo=235) BLOOD UREA NITROGEN 18 mg/dL 7-21 (BEAKER) (test debx=193) CREATININE (BEAKER) (test 1.07 mg/dL 0.57-1.25 bkdx=603) GLUCOSE RANDOM (BEAKER) 188 mg/dL 70-105 (test ugrn=035) CALCIUM (BEAKER) (test 8.8 mg/dL 8.4-10.2 tnzf=262) EGFR (BEAKER) (test 73 mL/min/1.73 sq m ESTIMATED GFR IS NOT clam=3896) ACCURATE CREATININE CLEARANCE IN PREDICTING GLOMERULAR FILTRATION RATE. ESTIMATED GFR IS NOT APPLICABLE FOR DIALYSIS PATIENTS. POCT-GLUCOSE [id number] 22:12:00 Test Item Value Reference Range Comments POC-GLUCOSE METER (BEAKER) 238 mg/dL 70-110 TESTED AT [address] (test aaqo=5039) [place] [id number] POCT-GLUCOSE [id number] 17:25:00 Test Item Value Reference Range Comments POC-GLUCOSE METER (BEAKER) 102 mg/dL 70-110 TESTED AT [address] (test zdbt=2439) [place] [address] URINALYSIS W/ [id number] 12:50:00 Test Item Value Reference Range Comments COLOR (BEAKER) (test zytg=173) Colorless CLARITY (BEAKER) (test wjar=238) Clear SPECIFIC GRAVITY UA (BEAKER) (test qaqh=397) 1.002 1.001-1.035 PH UA (BEAKER) (test ybjd=398) 6.5 5.0-8.0 PROTEIN UA (BEAKER) (test vdvq=865) Negative Negative GLUCOSE UA (BEAKER) (test gkso=072) Negative Negative KETONES UA (BEAKER) (test ijjl=459) Negative Negative BILIRUBIN UA (BEAKER) (test dnmb=056) Negative Negative BLOOD UA (BEAKER) (test rrxq=248) Negative Negative NITRITE UA (BEAKER) (test zuzt=072) Negative Negative LEUKOCYTE ESTERASE UA (BEAKER) (test mzhw=324) Negative Negative UROBILINOGEN UA (BEAKER) (test yjkj=780) 0.2 mg/dL 0.2-1.0 RBC UA (BEAKER) (test nlag=722) 0 /HPF WBC UA (BEAKER) (test awss=755) < /HPF SOURCE(BEAKER) (test jbaf=8774) POCT-GLUCOSE [id number] 12:04:00 Test Item Value Reference Range Comments POC-GLUCOSE METER (BEAKER) 226 mg/dL 70-110 TESTED AT [place] [address] [facility] (test zwfu=8290) [facility] [address] POCT-GLUCOSE [id number] 08:00:00 Test Item Value Reference Range Comments POC-GLUCOSE METER (BEAKER) 300 mg/dL 70-110 TESTED AT [facility] [address] [facility] (test fhrf=2470) [facility] [address] BASIC METABOLIC [id number] 06:50:00 Test Item Value Reference Range Comments SODIUM (BEAKER) (test 134 meq/L 136-145 evws=545) POTASSIUM (BEAKER) (test 4.0 meq/L 3.5-5.1 vdes=379) CHLORIDE (BEAKER) (test 98 meq/L 98-107 usco=778) CO2 (BEAKER) (test 26 meq/L 22-29 smgo=904) BLOOD UREA NITROGEN 18 mg/dL 7-21 (BEAKER) (test rble=991) CREATININE (BEAKER) (test 1.25 mg/dL 0.57-1.25 waob=942) GLUCOSE RANDOM (BEAKER) 349 mg/dL 70-105 (test dqaq=475) CALCIUM (BEAKER) (test 8.9 mg/dL 8.4-10.2 isjl=986) EGFR (BEAKER) (test 61 mL/min/1.73 sq m ESTIMATED GFR IS NOT ater=6944) ACCURATE CREATININE CLEARANCE IN PREDICTING GLOMERULAR FILTRATION RATE. ESTIMATED GFR IS NOT APPLICABLE FOR DIALYSIS PATIENTS. CBC W/PLT COUNT & AUTO [id number] 06:01:00 Test Item Value Reference Range Comments WHITE BLOOD CELL COUNT (BEAKER) (test zmrr=967) 6.6 K/ L 4.0-10.0 RED BLOOD CELL COUNT (BEAKER) (test dnmj=731) 4.79 M/ L 4.20-5.80 HEMOGLOBIN (BEAKER) (test qmeq=172) 14.1 GM/DL 13.0-16.8 HEMATOCRIT (BEAKER) (test clgd=548) 42.0 % 40.0-50.0 MEAN CORPUSCULAR VOLUME (BEAKER) (test rerx=292) 87.7 fL 82.0-98.0 MEAN CORPUSCULAR HEMOGLOBIN (BEAKER) (test 29.5 pg 27.0-33.0 emxn=377) MEAN CORPUSCULAR HEMOGLOBIN CONC (BEAKER) (test 33.6 GM/DL 32.0-36.0 tgiy=003) RED CELL DISTRIBUTION WIDTH (BEAKER) (test 14.9 % 10.3-14.2 qjlx=195) PLATELET COUNT (BEAKER) (test undn=186) 157 K/CU MM 150-430 MEAN PLATELET VOLUME (BEAKER) (test zlzv=678) 9.0 fL 6.5-10.5 NUCLEATED RED BLOOD CELLS (BEAKER) (test 0 /100 WBC 0-0 cbif=423) NEUTROPHILS RELATIVE PERCENT (BEAKER) (test 67 % ikql=579) LYMPHOCYTES RELATIVE PERCENT (BEAKER) (test 23 % ocax=613) MONOCYTES RELATIVE PERCENT (BEAKER) (test 7 % hypq=919) EOSINOPHILS RELATIVE PERCENT (BEAKER) (test 3 % xias=934) BASOPHILS RELATIVE PERCENT (BEAKER) (test 0 % uxus=294) NEUTROPHILS ABSOLUTE COUNT (BEAKER) (test 4.44 K/ L 1.80-8.00 kvyw=114) LYMPHOCYTES ABSOLUTE COUNT (BEAKER) (test 1.51 K/ L 1.48-4.50 mhhl=625) MONOCYTES ABSOLUTE COUNT (BEAKER) (test 0.43 K/ L 0.00-1.30 iojn=618) EOSINOPHILS ABSOLUTE COUNT (BEAKER) (test 0.21 K/ L 0.00-0.50 fllt=705) BASOPHILS ABSOLUTE COUNT (BEAKER) (test 0.03 K/ L 0.00-0.20 yfde=794) 0.00POCT-GLUCOSE [id number] 21:25:00 Test Item Value Reference Range Comments POC-GLUCOSE METER (BEAKER) 279 mg/dL 70-110 TESTED AT [address] (test qiwo=9477) [facility] [address] HEMOGLOBIN [id number] 21:13:00 Test Item Value Reference Range Comments HEMOGLOBIN A1C (BEAKER) (test wwbf=336) 10.7 % 4.3-6.1 CBC W/PLT COUNT & AUTO [id number] 20:47:00 Test Item Value Reference Range Comments WHITE BLOOD CELL COUNT (BEAKER) (test romt=516) 7.3 K/ L 4.0-10.0 RED BLOOD CELL COUNT (BEAKER) (test nsgb=064) 5.25 M/ L 4.20-5.80 HEMOGLOBIN (BEAKER) (test jfau=246) 15.7 GM/DL 13.0-16.8 HEMATOCRIT (BEAKER) (test zvfs=095) 46.0 % 40.0-50.0 MEAN CORPUSCULAR VOLUME (BEAKER) (test hcho=147) 87.7 fL 82.0-98.0 MEAN CORPUSCULAR HEMOGLOBIN (BEAKER) (test 30.0 pg 27.0-33.0 uovy=263) MEAN CORPUSCULAR HEMOGLOBIN CONC (BEAKER) (test 34.2 GM/DL 32.0-36.0 bdcj=126) RED CELL DISTRIBUTION WIDTH (BEAKER) (test 13.8 % 10.3-14.2 jalz=253) PLATELET COUNT (BEAKER) (test syuj=384) 166 K/CU MM 150-430 MEAN PLATELET VOLUME (BEAKER) (test pwli=170) 8.3 fL 6.5-10.5 NUCLEATED RED BLOOD CELLS (BEAKER) (test 0 /100 WBC 0-0 xyjg=168) NEUTROPHILS RELATIVE PERCENT (BEAKER) (test 69 % kvwx=048) LYMPHOCYTES RELATIVE PERCENT (BEAKER) (test 22 % atzj=572) MONOCYTES RELATIVE PERCENT (BEAKER) (test 5 % aiol=198) EOSINOPHILS RELATIVE PERCENT (BEAKER) (test 3 % mosm=411) BASOPHILS RELATIVE PERCENT (BEAKER) (test 0 % tekf=242) NEUTROPHILS ABSOLUTE COUNT (BEAKER) (test 5.04 K/ L 1.80-8.00 lwdb=770) LYMPHOCYTES ABSOLUTE COUNT (BEAKER) (test 1.63 K/ L 1.48-4.50 nciu=264) MONOCYTES ABSOLUTE COUNT (BEAKER) (test 0.40 K/ L 0.00-1.30 vhrm=324) EOSINOPHILS ABSOLUTE COUNT (BEAKER) (test 0.22 K/ L 0.00-0.50 imbq=275) BASOPHILS ABSOLUTE COUNT (BEAKER) (test 0.01 K/ L 0.00-0.20 febn=700) 0.00POCT-GLUCOSE [id number] 18:31:00 Test Item Value Reference Range Comments POC-GLUCOSE METER (BEAKER) 205 mg/dL 70-110 TESTED AT [facility] [address] [facility] (test zsaz=7117) [facility] [address]
[2018-08-15] MEDS ORDERED: ONDANSETRON 4 MG/2 ML VIAL ONE (11:33)
[2018-08-15] MEDS ORDERED: NITROGLYCERIN 0.4 MG/TAB SL ONE (11:33)
[2018-08-15] MEDS ORDERED: ASPIRIN 81 MG CHEWABLE TABLET ONE (11:33)
[2018-08-15] MEDS ORDERED: NA CHLORIDE 0.9% 500 ML ONE ×2 (11:33→13:53)
[2018-08-15] MEDS ORDERED: FAMOTIDINE 20 MG/2 ML VIAL IV ONE (11:33)
[2018-08-15 11:39] LABS: Absolute Lymphocytes (CBC) 1.4 K/uL (0.7-4.9); Basophils % 0.7 % (0-1.3); Eosinophils % 2.6 % (0-4.4); Hematocrit 44.5 % (39.6-49.0); Lymphocytes % 15.2 % (15.3-44.8); MPV 12.1 fL (7.6-11.3); Monocytes % 8.6 % (3.3-12.3); RBC Red Blood Cell Count 5.01 M/uL (4.33-5.43)
[2018-08-15 11:43] LABS: Protime INR 0.94
[2018-08-15] MEDS ORDERED: INSULIN -REGULAR HUMAN 50 UNIT/0.5 ML ML ONE ×2 (11:54→14:04)
[2018-08-15 12:11] LABS: ALT/SGPT 44 U/L (12-78); AST/SGOT 31 U/L (15-37); Albumin 3.1 g/dL (3.4-5.0); Alkaline Phosphatase 179 U/L (45-117); BUN Blood Urea Nitrogen 29 mg/dL (7-18); Bicarbonate 24 mmol/L (21-32); Bilirubin Direct 0.1 mg/dL (0-0.2); Bilirubin Total 0.6 mg/dL (0.2-1.0); NT PRO-BNP 67 pg/mL (<125); Potassium 4.2 mmol/L (3.5-5.1); Sodium Level 128 mmol/L (136-145); Troponin (Emerg Dept Use Only) < 0.02 ng/mL (0.0-0.045)
[2018-08-15 12:12] LABS: Glucose Level 645 mg/dL (74-106)
[2018-08-15] MEDS ORDERED: FENTANYL CITR 100 MCG/2 ML ONE (12:47)
[2018-08-15] MEDS ORDERED: PANTOPRAZOLE 40 MG INJ ONE (12:47)
--- NOTE | 2018-08-15 12:59 | RAD REPORT ---
EXAM DESCRIPTION: RAD - Chest Single View - 08/15/2018 11:39 am CLINICAL HISTORY: Chest pain COMPARISON: July 13 TECHNIQUE: AP portable chest image was obtained 1138 hours . FINDINGS: Lungs are clear. Heart and vasculature are normal. No measurable pleural effusion and no p neumothorax. No acute bony abnormality seen. No acute aortic findings suspected. IMPRESSION: No acute cardiopulmonary process. No significant interval change.
--- NOTE | 2018-08-15 13:50 | RAD REPORT ---
EXAM DESCRIPTION: CT - Abdomen Pelvis Wo Contrast - 08/15/2018 1:09 pm CLINICAL HISTORY: Abdominal pain COMPARISON: April 2017 TECHNIQUE: Axial [address] imaging of the abdomen and pelvis was performed without IV contrast. No IV contrast was given because of allergy, abnormal renal function, patient refusal or physician re quest. No oral contrast given. All CT scans are performed using dose optimization technique as appropriate and may include automated exposure control or mA/KV adjustment according to patient size. FINDINGS: No suspicious findings in the lung bases. The liver, spleen and pancreas show no suspicious findings on non-contrast imaging. Gallbladder is co ntracted. Gallstones can be occult. No biliary tree dilatation. No hydronephrosis or suspicious renal mass. Nonspecific perinephric stranding present. No significant adrenal finding. Isodense renal masses and pyelonephritis cannot be excluded in the absence of IV co ntrast. The urinary bladder is without significant finding. Urinary bladder is fully contracted aroun d a Valera catheter. No dilated bowel loops or bowel wall thickening. No free air, free fluid or inflammatory stranding. N o hernia, mass or bulky lymphadenopathy. A few small scattered nonspecific aorto iliac lymph nodes ar e present. Moderate stool volume fills but does not distend the colon. Sigmoid is redundant. There is mild diverticulosis without diverticulitis. No suspicious bony findings. IMPRESSION: Non-contrast enhanced CT abdomen and pelvis imaging show no significant or suspicious fi nding. Nonacute findings detailed in the body of the report. Full assessment is limited is the absence of IV contrast.
--- NOTE | 2018-08-15 14:01 | ER ---
Nurse's Notes [facility] Name: Ramirez Chaudhari Age: 53 yrs Sex: Male : 1965 Arrival Date: 08/15/2018 Time: 10:54 Bed 18 Private MD: Diagnosis: Hyponatremia;Acute pancreatitis Presentation: 08/15 11:05 Presenting complaint: Patient states: continuous CP that began last night. Transition ss of care: patient was not received from another setting of care. Onset of symptoms was August 14, 2018. Risk Assessment: Do you want to hurt yourself or someone else? Patient reports no desire to harm self or others. Initial Sepsis Screen: Does the patient meet any 2 criteria? No. Patient's initial sepsis screen is negative. Does the patient have a suspected source of infection? No. Patient's initial sepsis screen is negative. Note Pt also reports white drainage at urinary meatus around Valera catheter insertion x "a few days". Care prior to arrival: None. 11:05 Method Of Arrival: Ambulatory ss 11:05 Acuity: NOHEMI 3 ss 11:06 Risk Assessment: Do you want to hurt yourself or someone else? Patient reports no tw2 desire to harm self or others. Initial Sepsis Screen: Does the patient meet any 2 criteria? No. Patient's initial sepsis screen is negative. Does the patient have a suspected source of infection? No. Patient's initial sepsis screen is negative. Care prior to arrival: None. Historical: - Allergies: 11:05 metformin; tw2 11:05 Ibuprofen; tw2 - Home Meds: 11:05 Novolog 22 units Sub-Q before meals [Active]; levothyroxine 75 mcg tab 1 tab once daily tw2 [Active]; Levemir 36 units subcutaneous soln twice a day [Active]; Colcrys 0.6 mg Oral tab 1 tab bid prn gout [Active]; atenolol 50 mg Oral tab 1 tab once daily [Active]; - PMHx: 11:05 ADD/ADHD; GERD; Gout; High Cholesterol; Hydrocele Left Testicle; Hypertension; tw2 Hypothyroidism; Migraines; Paraplegia; Renal Disease; Spinal Stroke; Diabetes - IDDM; - Immunization history:: Adult Immunizations. - Social history:: Smoking status: . - Ebola Screening: : Patient denies travel to an Ebola-affected area in the 21 days before illness onset. Screenin:03 Abuse screen: Denies threats or abuse. Nutritional screening: No deficits noted. tw2 Tuberculosis screening: No symptoms or risk factors identified. Fall Risk None identified. Assessment: 11:25 General: Appears in no apparent distress. uncomfortable, Behavior is calm, cooperative, em Denies fever. Pain: Complains of pain in chest Pain does not radiate. Pain currently is 10 out of 10 on a pain scale. Pain began 1 day ago. Neuro: Level of Consciousness is awake, alert, obeys commands, Oriented to person, place, time, situation, Paralysis from waist down, Reports. Cardiovascular: Reports chest pain, nausea, shortness of breath, Heart tones S1 S2 present Capillary refill < 3 seconds Patient's skin is warm and dry. Rhythm is sinus rhythm. Respiratory: Airway is patent Respiratory effort is even, unlabored, Respiratory pattern is regular, symmetrical. GI: Abdomen is round non-distended. : Valera in place to gravity drainage. Derm: Skin is intact, is healthy with good turgor, Skin is pink, warm \\T\\ dry. Musculoskeletal: Capillary refill < 3 seconds. 11:30 General: The previous assessment is accurate, call light remains within reach. ss 12:44 Reassessment: Patient appears in no apparent distress at this time. Patient and/or em family updated on plan of care and expected duration. Pain level reassessed. Patient is alert, oriented x 3, equal unlabored respirations, skin warm/dry/pink. Patient states symptoms have improved. 14:00 Reassessment: Patient appears in no apparent distress at this time. Patient and/or em family updated on plan of care and expected duration. Pain level reassessed. Patient is alert, oriented x 3, equal unlabored respirations, skin warm/dry/pink. Patient states feeling better. Patient states symptoms have improved. 15:38 Reassessment: Patient appears in no apparent distress at this time. Patient and/or em family updated on plan of care and expected duration. Pain level reassessed. Patient is alert, oriented x 3, equal unlabored respirations, skin warm/dry/pink. reports chest pain, rates 6/10. 16:12 Reassessment: Patient appears in no apparent distress at this time. Patient and/or em family updated on plan of care and expected duration. Pain level reassessed. Patient is alert, oriented x 3, equal unlabored respirations, skin warm/dry/pink. Vital Signs: 11:05 BP 137 / 93; Pulse 78; Resp 15; Temp 97.0(TE); Pulse Ox 98% on R/A; Pain 10/10; ss 11:42 BP 106 / 64; Pulse 65; Resp 17; Pulse Ox 96% on R/A; Pain 8/10; ss 12:44 BP 114 / 83; Pulse 69; Resp 18; Pulse Ox 98% on R/A; Pain 6/10; em 15:39 BP 119 / 83; Pulse 67; Resp 18; Pulse Ox 96% on R/A; Pain 6/10; em 16:28 BP 114 / 82; Pulse 66; Resp 18; Pulse Ox 95% on R/A; Pain 6/10; em ED Course: 10:54 Patient arrived in ED. mr 10:55 Hank Malone PA is PHCP. cp 10:55 Brodie Zheng MD is Attending Physician. cp 10:55 Placed in gown. Bed in low position. Side rails up X2. Adult w/ patient. Cardiac tw2 monitor on. Pulse ox on. NIBP on. 11:02 EKG done, by ED staff, reviewed by Hank NETTLES. jb1 11:03 Arm band placed on. EKG completed in triage. Results shown to MD. tw2 11:06 Triage completed. ss 11:06 Patient maintains SpO2 saturation greater than 95% on room air. tw2 11:08 Owen Horn LVN is Primary Nurse. em 11:26 Initial lab(s) drawn, by me, sent to lab. Inserted saline lock: 22 gauge in right jb1 antecubital area, using aseptic technique. Blood collected. 11:40 XRAY Chest (1 view) In Process Unspecified. EDMS 12:54 Repeat lab(s) drawn. by me, sent to lab. jp3 12:54 Glucose Sent. jp3 13:09 CT completed. Patient tolerated procedure well. Patient moved back from CT. mw3 13:10 Abdomen In Process Unspecified. EDMS 14:00 Kelsi Cunha MD is Hospitalizing Provider. cp 16:18 No provider procedures requiring assistance completed. Patient admitted, IV remains in em place. Administered Medications: 11:25 Drug: NS 0.9% 500 ml Route: IV; Rate: bolus; Site: right antecubital; em 12:46 Follow up: IV Status: Completed infusion; IV Intake: 500ml em 11:27 Drug: Nitroglycerin 0.4 mg Route: Sublingual; em 12:00 Follow up: Response: No adverse reaction; Pain is decreased em 11:29 Drug: Aspirin Chewable Tablet 324 mg Route: PO; tw2 12:30 Follow up: Response: No adverse reaction em 11:31 Drug: Zofran 4 mg Route: IVP; Site: right antecubital; ss 12:30 Follow up: Response: No adverse reaction; Nausea is decreased em 11:31 Drug: Pepcid 20 mg Route: IVP; Site: right antecubital; ss 11:40 Drug: Insulin Regular Human 10 units {Co-Signature: em (Owen Horn JUNIOR PROJECT MANAGER).} Route: IVP; ss Site: right antecubital; 12:46 Follow up: Response: No adverse reaction; Blood sugar is lowered em 12:40 Drug: fentaNYL (PF) 25 mcg Route: IVP; Site: right antecubital; ss 14:04 Follow up: Response: No adverse reaction; Pain is decreased em 12:43 Drug: ProTONIX 40 mg Route: IVP; Site: right antecubital; ss 13:34 Follow up: Response: No adverse reaction; Marked relief of symptoms em 14:00 Drug: NS 0.9% 500 ml Route: IV; Rate: bolus; Site: right antecubital; em 16:20 Follow up: IV Status: Completed infusion; IV Intake: 500ml em 14:03 Drug: Insulin Regular Human 10 units {Co-Signature: em (Owen Horn JUNIOR PROJECT MANAGER).} Route: IVP; tw2 Site: right antecubital; 16:20 Follow up: Response: No adverse reaction; Blood sugar is lowered em Point of Care Testing: Blood Glucose: 11:26 Blood Glucose: High (>450 mg/dL); jb1 12:44 Blood Glucose: 462 mg/dL; em 15:39 Blood Glucose: 419 mg/dL; em Ranges: Intake: 12:46 IV: 500ml; Total: 500ml. em 16:20 IV: 500ml; Total: 1000ml. em Outcome: 14:01 Decision to Hospitalize by Provider. cp 16:18 Admitted to Med/surg accompanied by tech, family with patient, via stretcher, room 206, em with chart, Report called to NORBERTO Benitez 16:18 Condition: good 16:18 Instructed on the need for admit, Demonstrated understanding of instructions. 16:29 Patient left the ED. em Signatures: Dispatcher [employer] EDTung Moon jb1 KeenanTere mr Horn, Owen, JUNIOR PROJECT MANAGER JUNIOR PROJECT MANAGER em Autumn Marroquin, RN RN ss Hank Malone PA PA Hoda Vaughn, RN RN tw2 Paige Otoole mw3 Emmanuel Can jp3 Owen Kory JUNIOR PROJECT MANAGER em
--- NOTE | 2018-08-15 14:02 | EDPHYS ---
Physician Documentation [facility] Name: Ramirez Chaudhari Age: 53 yrs Sex: Male : 1965 Arrival Date: 08/15/2018 Time: 10:54 Bed 18 Private MD: ED Physician Brodie Zheng HPI: 08/15 11:10 This 53 yrs old Male presents to ER via Ambulatory with complaints of Chest cp Pain. 11:10 The patient or guardian reports chest pain that is located primarily in the anterior cp chest wall, bilaterally. Onset: yesterday, and became worse last night. The pain does not radiate. Associated signs and symptoms: Pertinent positives: nausea, upper abdominal pain, Pertinent negatives: cough, diaphoresis, dizziness, headache, lower extremity swelling, recent travel, shortness of breath, vomiting. The chest pain is described as sharp. Duration: The patient or guardian reports a single episode, that is still ongoing, and worsening. Modifying factors: The symptoms are alleviated by nothing. Historical: - Allergies: 11:05 metformin; tw2 11:05 Ibuprofen; tw2 - Home Meds: 11:05 Novolog 22 units Sub-Q before meals [Active]; levothyroxine 75 mcg tab 1 tab once daily tw2 [Active]; Levemir 36 units subcutaneous soln twice a day [Active]; Colcrys 0.6 mg Oral tab 1 tab bid prn gout [Active]; atenolol 50 mg Oral tab 1 tab once daily [Active]; - PMHx: 11:05 ADD/ADHD; GERD; Gout; High Cholesterol; Hydrocele Left Testicle; Hypertension; tw2 Hypothyroidism; Migraines; Paraplegia; Renal Disease; Spinal Stroke; Diabetes - IDDM; - Immunization history:: Adult Immunizations. - Social history:: Smoking status: . - Ebola Screening: : Patient denies travel to an Ebola-affected area in the 21 days before illness onset. ROS: 11:10 Constitutional: Negative for body aches, chills, fever, poor PO intake. cp 11:10 Eyes: Negative for injury, pain, redness, and discharge. cp 11:10 ENT: Negative for drainage from ear(s), ear pain, sore throat, difficulty swallowing, difficulty handling secretions. 11:10 Cardiovascular: Positive for chest pain, of the chest below left and right breast, Negative for edema, palpitations. 11:10 Respiratory: Negative for cough, hemoptysis, shortness of breath, wheezing. 11:10 Abdomen/GI: Positive for abdominal pain, of the right upper quadrant and left upper quadrant, Negative for vomiting, diarrhea, constipation, anorexia, black/tarry stool, rectal bleeding. 11:10 Back: Negative for pain at rest, pain with movement, radiated pain. 11:10 : Negative for urinary symptoms, flank pain, testicular pain 11:10 Skin: Negative for rash. 11:10 Neuro: Negative for altered mental status, headache, weakness. 11:10 All other systems are negative. Exam: 11:10 ECG was reviewed by the Attending Physician. cp 11:18 Constitutional: The patient appears in no acute distress, alert, awake, cp non-diaphoretic, non-toxic, well developed, well nourished, uncomfortable. 11:18 Head/Face: Normocephalic, atraumatic. Eyes: Pupils equal round and reactive to light, cp extra-ocular motions intact. Lids and lashes normal. Conjunctiva and sclera are non-icteric and not injected. Cornea within normal limits. Periorbital areas with no swelling, redness, or edema. ENT: Nares patent. No nasal discharge, no septal abnormalities noted. Tympanic membranes are normal and external auditory canals are clear. Oropharynx with no redness, swelling, or masses, exudates, or evidence of obstruction, uvula midline. Mucous membranes moist. Neck: Trachea midline, no thyromegaly or masses palpated, and no cervical lymphadenopathy. Supple, full range of motion without nuchal rigidity, or vertebral point tenderness. No Meningismus. 11:18 Chest/axilla: Inspection: normal, Palpation: is normal, no crepitus, no tenderness. 11:18 Cardiovascular: Rate: normal, Rhythm: regular, Edema: is not appreciated, JVD: is not appreciated. 11:18 Respiratory: the patient does not display signs of respiratory distress, Respirations: normal, no use of accessory muscles, no retractions, no splinting, no tachypnea, labored breathing, is not present, Breath sounds: are clear throughout, no decreased breath sounds, no stridor, no wheezing. 11:18 Abdomen/GI: Inspection: obese Bowel sounds: active, all quadrants, Palpation: soft, in all quadrants, moderate abdominal tenderness, in the right upper quadrant and left upper quadrant, rebound tenderness, is not appreciated, voluntary guarding, is elicited in the right upper quadrant and left upper quadrant. 11:18 Back: pain, is absent, ROM is normal. 11:18 Skin: cellulitis, is not appreciated, no rash present. 11:18 Neuro: Orientation: to person, place \T\ time. Mentation: is normal, Motor: no acute changes, patient is paraplegic, Sensation: no acute changes. Vital Signs: 11:05 BP 137 / 93; Pulse 78; Resp 15; Temp 97.0(TE); Pulse Ox 98% on R/A; Pain 10/10; ss 11:42 BP 106 / 64; Pulse 65; Resp 17; Pulse Ox 96% on R/A; Pain 8/10; ss 12:44 BP 114 / 83; Pulse 69; Resp 18; Pulse Ox 98% on R/A; Pain 6/10; em 15:39 BP 119 / 83; Pulse 67; Resp 18; Pulse Ox 96% on R/A; Pain 6/10; em 16:28 BP 114 / 82; Pulse 66; Resp 18; Pulse Ox 95% on R/A; Pain 6/10; em MDM: 10:57 Patient medically screened. cp 11:30 Differential diagnosis: abnormal EKG, acute myocardial infarction, acute pericarditis, cp costochondritis, esophagitis, gastritis, pancreatitis, pericarditis, pneumonia, pneumothorax, pulmonary embolus, stable angina, unstable angina. 14:00 Physician consultation: Kelsi Cunha MD was called at 14:00, was contacted at 14:00, cp regarding admission, to the medical/surgical unit. patient's condition. 14:05 The patient was given aspirin in the Emergency Department. cp 14:05 Data reviewed: vital signs, nurses notes, lab test result(s), EKG, radiologic studies, cp CT scan, plain films. Test interpretation: by ED physician or midlevel provider: ECG, plain radiologic studies. Response to treatment: the patient's symptoms have markedly improved after treatment. 08/15 11:07 Order name: Basic Metabolic Panel cp 08/15 11:07 Order name: CBC with Diff cp 08/15 11:07 Order name: LFT's cp 08/15 11:07 Order name: Magnesium; Complete Time: 12:36 cp / 11:07 Order name: NT PRO-BNP; Complete Time: 12:36 cp / 11:07 Order name: PT-INR; Complete Time: 12:09 cp / 11:07 Order name: Troponin (emerg Dept Use Only); Complete Time: 12:36 cp / 11:07 Order name: XRAY Chest (1 view); Complete Time: 13:54 cp 08/15 11:07 Order name: Lipase; Complete Time: 12:09 cp 08/15 12:09 Interpretation: Abnormal: LIP 1229. cp / 11:09 Order name: Basic Metabolic Panel; Complete Time: 12:36 EDMS 08/15 13:57 Interpretation: Normal except: NA 128; CL 94; GLUC 645; BUN 29; CRE 1.46; GFR 51; CA cp 8.4. / 11:09 Order name: CBC with Automated Diff; Complete Time: 12:09 EDMS 08/15 12:09 Interpretation: Normal except: MCV 88.8; PLT 136; MPV 12.1; LYM% 15.2. cp / 11:10 Order name: Liver (Hepatic) Function; Complete Time: 12:36 EDMS 08/15 13:58 Interpretation: Normal except: ALK 179; GLOB 3.9; ALB 3.1; A/G 0.8. cp / 12:44 Order name: Glucose; Complete Time: 13:54 em 08/15 11:07 Order name: EKG; Complete Time: 11:10 cp 08/15 11:07 Order name: Cardiac monitoring; Complete Time: 11:17 cp 08/15 11:07 Order name: EKG - Nurse/Tech; Complete Time: 11:17 cp 08/15 11:07 Order name: IV Saline Lock; Complete Time: 11:27 cp 08/15 13:04 Order name: Abdomen ; Complete Time: 13:54 EDMS 08/15 14:11 Order name: NPO EDMS 08/15 11:07 Order name: Labs collected and sent; Complete Time: 11:27 cp 08/15 11:07 Order name: O2 Per Protocol; Complete Time: 11:17 cp 08/15 11:07 Order name: O2 Sat Monitoring; Complete Time: 11:17 cp 08/15 11:07 Order name: Accucheck Blood Glucose; Complete Time: 11:27 cp EC:10 Rate is 72 beats/min. Rhythm is regular. TN interval is normal. QRS interval is cp prolonged at 120 msec. QT interval is normal at 120 msec. Interpreted by me. Reviewed by me. Administered Medications: 11:25 Drug: NS 0.9% 500 ml Route: IV; Rate: bolus; Site: right antecubital; em 12:46 Follow up: IV Status: Completed infusion; IV Intake: 500ml em 11:27 Drug: Nitroglycerin 0.4 mg Route: Sublingual; em 12:00 Follow up: Response: No adverse reaction; Pain is decreased em 11:29 Drug: Aspirin Chewable Tablet 324 mg Route: PO; tw2 12:30 Follow up: Response: No adverse reaction em 11:31 Drug: Zofran 4 mg Route: IVP; Site: right antecubital; ss 12:30 Follow up: Response: No adverse reaction; Nausea is decreased em 11:31 Drug: Pepcid 20 mg Route: IVP; Site: right antecubital; ss 11:40 Drug: Insulin Regular Human 10 units {Co-Signature: em (Owen Horn EXPERIMENTAL AIRCRAFT MECHANIC).} Route: IVP; ss Site: right antecubital; 12:46 Follow up: Response: No adverse reaction; Blood sugar is lowered em 12:40 Drug: fentaNYL (PF) 25 mcg Route: IVP; Site: right antecubital; ss 14:04 Follow up: Response: No adverse reaction; Pain is decreased em 12:43 Drug: ProTONIX 40 mg Route: IVP; Site: right antecubital; ss 13:34 Follow up: Response: No adverse reaction; Marked relief of symptoms em 14:00 Drug: NS 0.9% 500 ml Route: IV; Rate: bolus; Site: right antecubital; em 16:20 Follow up: IV Status: Completed infusion; IV Intake: 500ml em 14:03 Drug: Insulin Regular Human 10 units {Co-Signature: em (Owen Horn EXPERIMENTAL AIRCRAFT MECHANIC).} Route: IVP; tw2 Site: right antecubital; 16:20 Follow up: Response: No adverse reaction; Blood sugar is lowered em Point of Care Testing: Blood Glucose: 11:26 Blood Glucose: High (>450 mg/dL); jb1 12:44 Blood Glucose: 462 mg/dL; em 15:39 Blood Glucose: 419 mg/dL; em Ranges: Critical Glucose Levels:Adult <50 mg/dl or >400 mg/dl <40 mg/dl or >180 mg/dl Disposition: 18:33 Co-signature as Attending Physician, Brodie Zheng MD. rn Disposition: 08/15/18 14:01 Hospitalization ordered by Kelsi Cunha for Inpatient Admission. Preliminary diagnosis are Hyponatremia, Acute pancreatitis. - Bed requested for Telemetry/MedSurg (Inpatient). - Status is Inpatient Admission. em - Condition is Stable. - Problem is new. - Symptoms have improved. UTI on Admission? No Signatures: Dispatcher [employer] EDND Silvia Moreno RN NORBERTO dw Owen Horn LVN EXPERIMENTAL AIRCRAFT MECHANIC em Brodie Zheng MD MD rn Smirch, Shelby RN RN Hank Malone PA PA cp Wise, Tara, RN RN tw2 Owen Horn EXPERIMENTAL AIRCRAFT MECHANIC Corrections: (The following items were deleted from the chart) 13:04 12:45 Abdomen Pelvis W Con+CT.RAD.BRZ ordered. EDND EDMS 13:57 13:57 Normal except: NA 128; CL 94; GLUC 645; BUN 29; CRE 1.46; GFR 51. cp cp 15:52 14:01 Hospitalization Ordered by Kelsi Cunha MD for Inpatient Admission. Preliminary dw diagnosis is Hyponatremia; Acute pancreatitis. Bed requested for Telemetry/MedSurg (Inpatient). Status is Inpatient Admission. Condition is Stable. Problem is new. Symptoms have improved. UTI on Admission? No. cp 16:29 15:52 08/15/2018 14:01 Hospitalization Ordered by Kelsi Cunha MD for Inpatient em Admission. Preliminary diagnosis is Hyponatremia; Acute pancreatitis. Bed requested for Telemetry/MedSurg (Inpatient). Status is Inpatient Admission. Condition is Stable. Problem is new. Symptoms have improved. UTI on Admission? No. dw
--- NOTE | 2018-08-15 16:16 | P.HP ---
Certification for Inpatient Patient admitted to: Inpatient With expected LOS: >2 Midnights Patient will require the following post-hospital care: None Practitioner: I am a practitioner with admitting privileges, knowledge of patient current condition, hospital course, and medical plan of care. Services: Services provided to patient in accordance with Admission requirements found in Title 42 Section 412.3 of the Code of Federal Regulations Patient History Date of Service: 08/15/18 Primary Care Provider: Dr Powers Reason for admission: Abdominal Pain History of Present Illness: This is a 53-year-old male with history of diabetes, hyperlipidemia, hypertension, spinal cord injury leading to paraplegia who presented to the ED complaining of having abdominal pain. Patient stated that he was on vacation at his brother's house last week and started having a lot of epigastric pain for which she started taking Tums as he thought that food that was scoped and lemon was causing him to have reflux. After taking Tums patient did have significant improvement however recently started getting worse and thus decided to come to the ER. Pt has been also going to the beach with his myers catheter inserted, and noticed there after the beach he has been having some purulent discharge from the penis area. Patient has also noted that he has had a wound on the left foot on the dorsal aspect on the 1st great toe. Patient denies having any fever chills chest pain or shortness of breath. However does state that he was having nausea and vomiting when his epigastric pain initially started. Patient recently finished his IV antibiotic treatment for his scrotal cellulitis about 2 weeks ago. Does see Urology on regular basis for his scrotal hydrocele and cellulitis. Allergies metformin Adverse Reaction (Severe, Verified 07/06/18 08:47) Anaphylaxis ibuprofen Adverse Reaction (Verified 07/06/18 08:47) seecom adler peppers Allergy (Intermediate, Uncoded 07/06/18 08:47) Nausea/Vomiting stitches Adverse Reaction (Mild, Uncoded 07/06/18 08:47) Rash Home medications list reviewed: Yes Home Medications: Atenolol [Tenormin*] 50 mg PO DAILY 02/05/15 Insulin Aspart [Novolog] 22 units SQ TID 02/05/15 Insulin Detemir [Levemir] 36 unit SQ BID 02/05/15 Colchicine [Colcrys] 1 tab PO BID PRN 07/25/16 Levothyroxine [Synthroid*] 75 mcg PO [id number] 07/25/16 Furosemide [Lasix*] 1 tab PO DAILY 07/05/18 - Past Medical/Surgical History Has patient received pneumonia vaccine in the past: No Diabetic: Yes -: gout -: htn -: dm -: hypercholesterol -: spinal cord injury -: self cath -: hypothyroidism -: paraplegic -: GERD Past Surgical History: Reviewed- Non-Contributory -: spinal surgery -: 2 hydroceles - Family History Family History: Reviewed- Non-Contributory - Family History Mother -: Hypertension, Diabetes, Stroke Notes: with gangrene le - Social History Smoking Status: Current every day smoker Counseled patient to stop smoking for: more than 10 minutes Smoking therapy provided: Yes Patient receptive to therapy: Yes Alcohol use: No CD- Drugs: No Caffeine use: Yes Place of Residence: Home Review of Systems 10-point ROS is otherwise unremarkable Physical Examination - Physical Exam General: Alert, In no apparent distress HEENT: Atraumatic, PERRLA, Mucous membr. moist/pink, EOMI, Sclerae nonicteric Neck: Supple, 2+ carotid pulse no bruit, No LAD, Without JVD or thyroid abnormality Respiratory: Clear to auscultation bilaterally, Normal air movement Cardiovascular: Regular rate/rhythm, Normal S1 S2 Gastrointestinal: Normal bowel sounds, Tenderness (Generalized Tenderness throughtout the Abdominal) Musculoskeletal: No tenderness Integumentary: No rashes Neurological: Normal gait, Normal speech, Normal strength at 5/5 x4 extr, Normal tone, Normal affect Lymphatics: No axilla or inguinal lymphadenopathy - Studies Laboratory Data (last 24 hrs) 08/15/18 12:50: Glucose 507 H* 08/15/18 11:25: Lipase 1229 H 08/15/18 11:25: PT 11.1, INR 0.94 08/15/18 11:25: WBC 9.1, Hgb 15.2, Hct 44.5, Plt Count 136 L 08/15/18 11:25: Sodium 128 L, Potassium 4.2, BUN 29 H, Creatinine 1.46 H, Glucose 645 H*, Magnesium 2.0, Total Bilirubin 0.6, AST 31, ALT 44, Alkaline Phosphatase 179 H Assessment and Plan - Problems (Diagnosis) (1) Acute pancreatitis Current Visit: Yes Status: Acute Plan: Pt with acute abdominal pain with Clinical Evidence of Acute Pancreatitis -elevated Lipase, epigastic pain requiring IV pain medication -Though CT is negative for Pancreatitis, imaging Modalities sometimes do lag behind the clinical Symptoms -IV fluids, NPO and Pain mgmt (2) Epididymitis Current Visit: Yes Status: Acute Plan: Patient with history of epididymitis and orchitis. Currently with purulent discharge from the penis area. -patient is at high risk for infection due to chronic indwelling catheter secondary to paraplegia -urine culture is pending at this time -will replace the Myers at this time and provide local wound care to the area and collect wound cultures as well. -will start patient on IV meropenem due to history of multi-drug resistant bacteria. (3) Cellulitis of left foot Current Visit: Yes Status: Acute Plan: Cellulitis of the left foot with high risk for vibrio secondary to exposure to saltwater recently at the beach -will provide local wound care along with collected wound culture -patient on IV meropenem at this time will continue to monitor. -no leukocytosis has been noted possibly infection is localized at this time -if needed will get infectious disease and surgery consulted if worsening of infection is noted. (4) Acute renal failure Onset Date: 02/23/14 Current Visit: No Status: Acute Plan: Acute Kidney Injury on CKD stage 3 due to Dehydration causing Hyponatremia -IV fluids at this time -If no Improvement will consult Nephrology Qualifiers: Acute renal failure type: unspecified Qualified Code(s): N17.9 - Acute kidney failure, unspecified (5) DM2 (diabetes mellitus, type 2) Onset Date: 11/25/16 Current Visit: No Status: Chronic Plan: Type 2 DM with Hyperglycemia most likely related to Pancreatitis or cause of Pancreatitis -ISS and Accu Checks -BS in ER 654, repeat 504 -Will start IV Fluids and Insulin Qualifiers: Diabetes mellitus mcfp insulin use: with keno terminal operator use Diabetes mellitus complication status: with hyperglycemia Qualified Code(s): E11.65 - Type 2 diabetes mellitus with hyperglycemia; Z79.4 - keno terminal operator (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 (6) Gastroesophageal reflux disease Onset Date: 10/16/14 Current Visit: No Status: Chronic Plan: Protonix Qualifiers: Esophagitis presence: without esophagitis Qualified Code(s): K21.9 - Gastro -esophageal reflux disease without esophagitis (7) Hyperlipidemia Onset Date: 10/16/14 Current Visit: No Status: Chronic Plan: Will recheck Lipid panel Qualifiers: Hyperlipidemia type: mixed hyperlipidemia Qualified Code(s): E78.2 - Mixed hyperlipidemia (8) Hypertension Onset Date: 04/04/14 Current Visit: No Status: Chronic Plan: Stable at this time Qualifiers: Hypertension type: essential hypertension Qualified Code(s): I10 - Essential (primary) hypertension - Plan Admit to [facility] for epididymitis, cellulitis of the left foot and acute Pancreatitis with Dehydration causing CROW and Hyponatremia Discharge Plan: Home Plan to discharge in: Greater than 2 days - Advance Directives Does patient have a Living Will: No Does patient have a Durable POA for Healthcare: No - Code Status/Comfort Care Code Status Assessed: Yes Critical Care: No
[2018-08-15] MEDS: INSULIN -REGULAR HUMAN 50 UNIT/0.5 ML ML SQ SCH ×3 (16:41→20:57)
[2018-08-15] MEDS ORDERED: Meropenem 1000 MG/VIAL IV SCH (17:00)
[2018-08-15 17:49] LABS: Urine Appearance CLOUDY; Urine Bilirubin NEGATIVE (NEG); Urine Blood TRACE (NEG); Urine Color YELLOW; Urine Glucose 3+ (NEG); Urine Protein TRACE (NEG); Urine Specific Gravity 1.025 (1.005-1.030); Urine Urobilinogen 0.2 mg/dL (0.2-1.0)
[2018-08-15 17:56] LABS: Urine Microscopic Reflex ORDER UMIC
[2018-08-15] MEDS: NA CHLORIDE 0.9% 1,000 ML IV SCH (18:40)
[2018-08-15] MEDS: ENOXAPARIN 40 MG/0.4 ML SQ SCH (18:41)
[2018-08-15] MEDS: Meropenem 1,000 MG in NA CHLORIDE 0.9% 100 ML IV SCH (18:41)
[2018-08-15 18:44] LABS: Urine Bacteria >50 /HPF (NONE SEEN); Urine Culture Reflex Order REFLEXED; Urine RBC <5 /HPF (NONE SEEN)
[2018-08-15 18:45] LABS: Urine Amorphous Sediment 1+ /HPF (NONE SEEN)
--- NOTE | 2018-08-15 19:22 | RAD REPORT ---
EXAM DESCRIPTION: RAD - Foot Left 3 View - 08/15/2018 6:15 pm CLINICAL HISTORY: Left foot wound not further localized COMPARISON: None. FINDINGS: No fracture, dislocation or periosteal reaction. No bone destructive process identifiable. Osteomyelitis can exist prior to radiographic bone destruction. Degenerative changes are pronounced at the first MTP joint with more mild degenerative changes at the IP joints and midfoot. No plantar s pur. Soft tissue edema present in the distal foot. No air or foreign body. IMPRESSION: No air or foreign body in the soft tissues. No pathologic or destructive bone process. Osteomyelitis can exist prior to radiographic bone destruc tion.
[2018-08-15 20:07] VITALS: BMI 35.7
[2018-08-15] MEDS ORDERED: MORPHINE 4 MG/ML SYR IV PRN (22:01)
[2018-08-15] MEDS ORDERED: GLUCAGON 1 MG/VIAL IM PRN (23:46)
[2018-08-15] MEDS ORDERED: D50W 25 GM/50 ML SYRINGE IV PRN (23:46)
[2018-08-16] MEDS: Meropenem 1,000 MG in NA CHLORIDE 0.9% 100 ML IV SCH ×4 (00:14→23:55)
[2018-08-16] MEDS: NA CHLORIDE 0.9% 1,000 ML IV SCH ×4 (00:45→17:02)
[2018-08-16] MEDS: INSULIN -REGULAR HUMAN 50 UNIT/0.5 ML ML SQ SCH ×6 (05:19→22:48)
[2018-08-16 06:05] LABS: Absolute Lymphocytes (CBC) 1.1 K/uL (0.7-4.9); Basophils % 0.8 % (0-1.3); Eosinophils % 3.8 % (0-4.4); Hematocrit 42.6 % (39.6-49.0); Lymphocytes % 17.6 % (15.3-44.8); MPV 11.3 fL (7.6-11.3); RBC Red Blood Cell Count 4.78 M/uL (4.33-5.43)
[2018-08-16 06:29] LABS: ALT/SGPT 49 U/L (12-78); AST/SGOT 53 U/L (15-37); Albumin 2.9 g/dL (3.4-5.0); Alkaline Phosphatase 98 U/L (45-117); BUN Blood Urea Nitrogen 24 mg/dL (7-18); Bicarbonate 27 mmol/L (21-32); Bilirubin Total 0.6 mg/dL (0.2-1.0); Glucose Level 257 mg/dL (74-106); HDL Cholesterol 29 mg/dL (40-60); Potassium 3.9 mmol/L (3.5-5.1); Protein, Total 6.8 g/dL (6.4-8.2); Sodium Level 139 mmol/L (136-145)
--- NOTE | 2018-08-16 07:20 | RAD REPORT ---
EXAM DESCRIPTION: US - Scrotum Testicles - 08/15/2018 11:14 pm CLINICAL HISTORY: Scrotal pain, penile discharge COMPARISON: None. FINDINGS: Scrotal wall thickening is present. No mass or abnormal fluid collection within the scrota l wall. Doppler evaluation shows normal blood flow within each testicle. No intratesticular mass lesion ident ifiable. No epididymis enlargement or hyperemia is seen. No hydrocele or other extratesticular abnorm ality. IMPRESSION: No testicle abnormalities. Scrotal wall thickening without mass or abnormal fluid collection within the scrotal wall.
--- NOTE | 2018-08-16 09:57 | EKG ---
Test Date: 2018-08-15 Test Time: 11:02:17 Windows Server Specialist: PRIETO MEASUREMENT RESULTS: Intervals: Rate: 72 W[place]: 124 QRSD: 120 QT: 376 QTc: 411 [place]: P: 16 W[place]: 124 QRS: 59 T: 0 INTERPRETIVE STATEMENTS: Normal sinus rhythm Right bundle branch block Abnormal ECG Compared to ECG 07/06/2018 21:15:30 Right bundle-branch block now present Incomplete right bundle-branch block no longer present Electronically Signed On 08-16-18 09:56:21 CDT by Solomon Porter
[2018-08-16 10:32] LABS: LDL, Direct 112 mg/dL (100-129)
[2018-08-16] MEDS ORDERED: TRAMADOL HCL 50 MG TAB PO PRN (13:16)
--- NOTE | 2018-08-16 13:25 | P.PN ---
Subjective Date of Service: 08/16/18 Primary Care Provider: Dr Powers Chief Complaint: Abdominal Pain Subjective: Doing well Physical Examination - Vital Signs Temperature: 97.6 F Blood Pressure: 132/82 Pulse: 74 Respirations: 20 Pulse Ox (%): 99 - Physical Exam General: Alert, In no apparent distress, Oriented x3, Cooperative HEENT: Atraumatic Neck: Supple Respiratory: Clear to auscultation bilaterally, Normal air movement Cardiovascular: Normal pulses, Regular rate/rhythm Gastrointestinal: Normal bowel sounds, Soft and benign, Non-distended, No tenderness, No masses, No rebound, No guarding Musculoskeletal: No warmth, Other (Erythema to the left dorsal aspect of the foot improved. No significant swelling. Prior bullous noted.) Neurological: Normal speech, Other (Patient is paraplegic below the waist) Urinary: Valera catheter - Studies Medications List Reviewed: Yes Assessment & Plan Discharge Plan: Home Plan to discharge in: 48 Hours Physician Review Additional Text: Impression: Epigastric abdominal pain likely acute pancreatitis UTI with history of epididymitis, frequent UTI and chronic indwelling catheter Left foot cellulitis Diabetes mellitus type 2, insulin dependent Hypertension Hypothyroidism Hyperlipidemia Paraplegic below the waist Obesity, BMI 35 Plan: Epigastric abdominal pain likely acute pancreatitis: Patient without significant abdominal pain this morning. Lab shows normal lipase levels. CT scan did not reveal any pancreatitis. Clinically patient appeared to have some epigastric abdominal pain. Will slowly advance diet and advance to a GI soft. Will continue to monitor closely. Continue IV fluids. Patient also complicated with UTI. On IV antibiotic therapy at this time. Cultures pending. Anticipate discharge likely in the next 24-48 hr if with clinical improvement and cultures finalized. Urology consulted for further recommendation. Will monitor closely. UTI with history of epididymitis, frequent UTI and chronic indwelling catheter: Patient on IV antibiotic therapy. Valera catheter was replaced upon admission. Patient with history of frequent UTI. Patient with chronic indwelling catheter. Patient educated on UTI prevention. Await culture results. Left foot cellulitis: This appears stable. Will have wound care assess and treat. Continue IV antibiotic therapy. Diabetes mellitus type 2, insulin dependent: Will start basal insulin. Continue sliding scale. Will monitor closely. Hypertension: Restart home medication. Will monitor and adjust appropriately. Hypothyroidism: Restart home medication. Hyperlipidemia: Will start fish oil due to elevated triglyceride level. Paraplegic below the waist: Overall stable at this time. Patient with chronic indwelling catheter. This was replaced. Obesity, BMI 35: Continue address lifestyle modification education. Time Spent Managing Pts Care (In Minutes): 55
[2018-08-16] MEDS ORDERED: GLUCAGON 1 MG/VIAL IM PRN (15:23)
[2018-08-16] MEDS ORDERED: D50W 25 GM/50 ML SYRINGE IV PRN (15:23)
[2018-08-16] MEDS: ENOXAPARIN 40 MG/0.4 ML SQ SCH (17:01)
[2018-08-16] MEDS: HYDROCODONE/APAP 7.5/325 MG TAB PO PRN (17:01)
--- NOTE | 2018-08-16 17:15 | CON ---
History Of Present Illness: A 53-year-old paraplegic gentleman with history of diabetes, hyperlipide melody, hypertension, presented to the ER with abdominal pain and had a negative CT scan. Scrotal ultra sound thus shows some scrotal wall thickening, no hydrocele, no hyperemia, no signs of epididymitis. The patient was complaining that he went to the beach with his Valera catheter and then after that no ticed some purulent drainage around from the periurethral area coming around the Valera catheter. Tresa amin has wound on his left foot, dorsal aspect of the first great toe. Allergies: HE HAS ALLERGIES TO METFORMIN, IBUPROFEN, WILEY PEPPER, STITCHES. Home Medications: Atenolol, insulin, colchicine, levothyroxine, Lasix. Past Medical History: Diabetes, gout, hypertension, hypercholesterol, spinal cord injury, self-cath at home, changes his catheter monthly, hypothyroidism, paraplegia, GERD. Past Surgical History: Spinal cord surgery, hydrocele, tonsillectomy. Family History: Family history significant for hypertension, diabetes, stroke. Mother with bernardino hong. Social History: Current everyday smoker. Has been counseled to stop. Review of Systems: Ten-point review of systems otherwise unremarkable. Physical Examination: General: The patient is alert, oriented, in good mood. Does not appear ill in any way. His is present in the room. Vital Signs: Show temperature 97.3, pulse 68, respirations 16, BP 119/69, O2 saturation 97% on room air. HEENT: Atraumatic, normocephalic. Chest: Clear. Abdomen: Soft, nontender. : Shows penis with new catheter inserted, there is slight discharge around the periurethral area, looks more like periurethral normal secretions to me. There is no smell to it. Scrotum exam is norm al. Normal skin. Normal testicles. WILL deferred at this point. Labs: The patient's studies, CT scan, ultrasound as mentioned above. He also has some laboratories showing normal white count 6.5, H and H 14 and 42, platelet count 112. Coagulation studies normal. Chemistry shows sodium 139, potassium 3.9, chloride 105, carbon dioxide 27, BUN 24, creatinine 1.2, G FR 67, glucose 257. His TSH is elevated at 10.9, free T4 1.25, normal. His urine study shows trace blood, nitrite negative, esterase 2+, bacteria greater than 50. There is a microbiology of penis sec retions pending, left wound pending, clean-catch pending. Assessment: This gentleman with quadriplegia, chronic Valera catheter, went [place] the ocean, noticed deonte e secretions around the catheter since, risk of the periurethral secretions versus infection, looks m ore like normal periurethral secretions to me. We would recommend continue IV antibiotics for now un til cultures return. His Valera catheter is new, does not need to be changed. Scrotum is normal. No sign of cellulitis. No hydrocele there. Continue to monitor his diabetes and we will see how he do es. PB/MODL Voice ID: [id number] Report ID: [id number]
[2018-08-16] MEDS ORDERED: INSULIN GLARGINE 100 UNITS/ML SQ SCH (21:00)
[2018-08-16] MEDS: DOCOSAHEXANOIC AC/EPA 1000 MG PO SCH (22:43)
[2018-08-17] MEDS: LEVOTHYROXINE SOD 0.075 MG TAB PO SCH (06:03)
[2018-08-17] MEDS: NA CHLORIDE 0.9% 1,000 ML IV SCH ×2 (06:04→16:40)
[2018-08-17 06:18] LABS: Absolute Lymphocytes (CBC) 0.8 K/uL (0.7-4.9); Basophils % 0.3 % (0-1.3); Eosinophils % 2.9 % (0-4.4); MPV 11.3 fL (7.6-11.3); Monocytes % 11.7 % (3.3-12.3); RBC Red Blood Cell Count 4.53 M/uL (4.33-5.43)
[2018-08-17 06:36] LABS: Albumin 2.6 g/dL (3.4-5.0); Bilirubin Total 0.5 mg/dL (0.2-1.0); Magnesium 1.9 mg/dL (1.8-2.4); Potassium 4.2 mmol/L (3.5-5.1); Protein, Total 6.3 g/dL (6.4-8.2)
[2018-08-17] MEDS: ATENOLOL 50 MG TAB PO SCH (08:21)
[2018-08-17] MEDS: INSULIN -REGULAR HUMAN 50 UNIT/0.5 ML ML SQ SCH ×4 (08:21→23:10)
[2018-08-17] MEDS: FUROSEMIDE 20 MG TABLET PO SCH (08:21)
[2018-08-17] MEDS: Meropenem 1,000 MG in NA CHLORIDE 0.9% 100 ML IV SCH ×2 (08:21→16:35)
[2018-08-17] MEDS: DOCOSAHEXANOIC AC/EPA 1000 MG PO SCH ×2 (08:21→23:07)
--- NOTE | 2018-08-17 12:41 | P.PN ---
Subjective Date of Service: 08/17/18 Primary Care Provider: Dr Powers Chief Complaint: Abdominal Pain Subjective: Improving Physical Examination - Vital Signs Temperature: 97.9 F Blood Pressure: 162/91 Pulse: 79 Respirations: 20 Pulse Ox (%): 97 - Physical Exam General: Alert, In no apparent distress, Oriented x3, Cooperative HEENT: Atraumatic Neck: Supple Respiratory: Clear to auscultation bilaterally, Normal air movement Cardiovascular: Normal pulses, Regular rate/rhythm Gastrointestinal: Normal bowel sounds, Soft and benign, Non-distended, No masses , No rebound, No guarding Integumentary: No tenderness/swelling, No erythema, No warmth, No cyanosis Neurological: Normal speech, Other (Patient paraplegic below the waist) Urinary: Valera catheter - Studies Medications List Reviewed: Yes Assessment & Plan Discharge Plan: Home Plan to discharge in: 24 Hours Physician Review Additional Text: Impression: Epigastric abdominal pain likely acute pancreatitis UTI with history of epididymitis, frequent UTI and chronic indwelling catheter Left foot cellulitis Diabetes mellitus type 2, insulin dependent Hypertension Hypothyroidism Hyperlipidemia Paraplegic below the waist Obesity, BMI 35 Plan: Epigastric abdominal pain likely acute pancreatitis: Patient without any significant abdominal pain. Continue with current diet. Patient with UTI with history of recurrent UTI. Penile culture positive for Serratia. Urine culture pending at this time. Once identified patient can be discharged home likely within the next 24 hr. UTI with history of epididymitis, frequent UTI and chronic indwelling catheter with penile culture positive for Serratia, urine culture shows Gram negative rods: Patient continues on IV antibiotic therapy. Penile culture positive for Serratia. Urine culture pending at this time. Likely discharge once urine culture has been identified. Likely discharge in the next 24 hr. Continue teach on UTI prevention. Left foot cellulitis: This appears stable. Continue with wound care. Continue IV antibiotic therapy. Diabetes mellitus type 2, insulin dependent: Will adjust basal insulin for better diabetic control. Continue sliding scale. Will monitor closely. Hypertension: Continue home medication. Will monitor and adjust appropriately. Hypothyroidism: Continue home medication. Hyperlipidemia: Continue with fish oil due to elevated triglyceride level. Paraplegic below the waist: Overall stable at this time. Patient with chronic indwelling catheter. This was replaced. Obesity, BMI 35: Continue address lifestyle modification education. Time Spent Managing Pts Care (In Minutes): 55
--- NOTE | 2018-08-17 16:37 | PN ---
Subjective: The patient is doing well, about to be discharged. Objective: Vital Signs: Afebrile. Stable. I's and O's intact. Laboratory Data: Microbiology is growing Serratia marcescens from the penile culture that they did. His urine culture is growing gram-negative rods also. This Serratia is sensitive to Bactrim, cefota dayna, cefoxitin, levofloxacin, ceftriaxone, Cipro, meropenem. Assessment: Again, this may be more like a contaminant than anything else, but we do not want to ove rtreat him. Also, his bladder urinary tract infection is very common since he has a chronic indwelli ng Valera. Again, this may be overtreatment and so we will defer to his family one way or the other a bout treating this patient again. NEGRITO/SNOW Voice ID: [id number] Report ID: [id number]
[2018-08-17] MEDS: ENOXAPARIN 40 MG/0.4 ML SQ SCH (17:50)
[2018-08-17] MEDS ORDERED: INSULIN GLARGINE 100 UNITS/ML SQ SCH (21:00)
[2018-08-17] MEDS: HYDROCODONE/APAP 7.5/325 MG TAB PO PRN (23:07)
[2018-08-18] MEDS: Meropenem 1,000 MG in NA CHLORIDE 0.9% 100 ML IV SCH ×2 (01:12→10:47)
[2018-08-18] MEDS: NA CHLORIDE 0.9% 1,000 ML IV SCH (01:16)
[2018-08-18] MEDS: LEVOTHYROXINE SOD 0.075 MG TAB PO SCH (05:45)
[2018-08-18 06:18] LABS: Albumin 2.7 g/dL (3.4-5.0); Bilirubin Total 0.5 mg/dL (0.2-1.0); Magnesium 1.8 mg/dL (1.8-2.4); Potassium 3.9 mmol/L (3.5-5.1); Protein, Total 6.5 g/dL (6.4-8.2)
[2018-08-18 06:23] LABS: Absolute Lymphocytes (CBC) 1.4 K/uL (0.7-4.9); Basophils % 0.4 % (0-1.3); Eosinophils % 2.6 % (0-4.4); Hematocrit 39.4 % (39.6-49.0); Lymphocytes % 25.4 % (15.3-44.8); MPV 11.1 fL (7.6-11.3); Monocytes % 10.7 % (3.3-12.3); RBC Red Blood Cell Count 4.49 M/uL (4.33-5.43)
[2018-08-18 08:34] VITALS: TEMP 97.7
[2018-08-18] MEDS ORDERED: MAGNESIUM SULFATE 1 gm IVPB 1 GM/100 ML BAG IV ONE (09:00)
[2018-08-18] MEDS: DOCOSAHEXANOIC AC/EPA 1000 MG PO SCH (09:23)
[2018-08-18] MEDS: ATENOLOL 50 MG TAB PO SCH (09:24)
[2018-08-18] MEDS: FUROSEMIDE 20 MG TABLET PO SCH (09:25)
[2018-08-18] MEDS: HYDROCODONE/APAP 7.5/325 MG TAB PO PRN (09:25)
[2018-08-18] MEDS: INSULIN -REGULAR HUMAN 50 UNIT/0.5 ML ML SQ SCH ×2 (09:27→12:17)
--- NOTE | 2018-08-18 10:24 | P.DS ---
Admission Date: 08/15/18 Discharge Date: 08/18/18 Primary Care Provider: Dr. Powers Disposition: ROUTINE DISCHARGE Discharge Condition: GOOD Reason for Admission: Abdominal Pain Consultations: Urology-Dr. Doan Procedures: CT scan: FINDINGS: No suspicious findings in the lung bases. The liver, spleen and pancreas show no suspicious findings on non-contrast imaging. Gallbladder is contracted. Gallstones can be occult. No biliary tree dilatation. No hydronephrosis or suspicious renal mass. Nonspecific perinephric stranding present. No significant adrenal finding. Isodense renal masses and pyelonephritis cannot be excluded in the absence of IV contrast. The urinary bladder is without significant finding. Urinary bladder is fully contracted around a Valera catheter. No dilated bowel loops or bowel wall thickening. No free air, free fluid or inflammatory stranding. No hernia, mass or bulky lymphadenopathy. A few small scattered nonspecific aorto iliac lymph nodes are present. Moderate stool volume fills but does not distend the colon. Sigmoid is redundant. There is mild diverticulosis without diverticulitis. No suspicious bony findings. IMPRESSION: Non-contrast enhanced CT abdomen and pelvis imaging show no significant or suspicious finding. Nonacute findings detailed in the body of the report. Scrotal ultrasound: COMPARISON: None. FINDINGS: Scrotal wall thickening is present. No mass or abnormal fluid collection within the scrotal wall. Doppler evaluation shows normal blood flow within each testicle. No intratesticular mass lesion identifiable. No epididymis enlargement or hyperemia is seen. No hydrocele or other extratesticular abnormality. IMPRESSION: No testicle abnormalities. Scrotal wall thickening without mass or abnormal fluid collection within the scrotal wall. X-ray: COMPARISON: None. FINDINGS: No fracture, dislocation or periosteal reaction. No bone destructive process identifiable. Osteomyelitis can exist prior to radiographic bone destruction. Degenerative changes are pronounced at the first MTP joint with more mild degenerative changes at the IP joints and midfoot. No plantar spur. Soft tissue edema present in the distal foot. No air or foreign body. IMPRESSION: No air or foreign body in the soft tissues. No pathologic or destructive bone process Medical Problem List: UTI with urine culture positive for Morganella morganii and Serratia, Penile culture positive for Serratia complicated with history of epididymitis, frequent UTIs and chronic indwelling catheter Left foot cellulitis with wound culture positive for Serratia Epigastric abdominal pain likely acute pancreatitis, resolved Diabetes mellitus type 2, insulin dependent Hypertension Hypothyroidism Hyperlipidemia Paraplegic below the waist Obesity, BMI 35 Brief History of Present Illness: 53-year-old male with history of diabetes, paraplegic below the waist, recurrent UTI presented to the emergency room with abdominal pain. Patient [place] the beach with [place]. Patient has chronic Valera catheter. Initial analysis showed UTI with possible pancreatitis. He also had a left foot cellulitis. Patient was admitted for treatment. Hospital Course: Patient presented with multiple complaints including epigastric abdominal pain. Patient with history of chronic indwelling catheter with prior UTIs. He had been to the beach with family. He did enter the water. Patient found to have UTI with urine culture positive for Morganella and Serratia. Penile culture also positive for Serratia. Patient seen and evaluated by urology. Patient responded well to IV antibiotic therapy. This was transitioned to oral medication. At discharge he will continue with Levaquin 500 mg daily for 5 more days. UTI prevention education provided. It is recommended that he not go to the beach and enter the water as the patient has a chronic Valera catheter. Patient understands the risks. His Valera catheter was changed during his stay. Valera catheter will need to be changed every month. Recommend to follow up with urology in 1-2 weeks to follow up this hospitalization. Patient also found to have mild pancreatitis with elevated lipase. This resolved quickly. CT scan did not show any evidence of pancreatitis. Patient will continue with current ADA diet. Patient also had some erythema to the left foot. There was some suspicion for cellulitis. Patient responded well to therapy. Wound care was provided. Wound culture positive for Serratia. Patient will continue with Levaquin 500 mg daily. Patient will continue with current wound care at this time. Patient with diabetes mellitus type 2 insulin dependent. Previous A1c 10.0. At discharge he will continue with his insulin regimen of Levemir 36 units twice daily and NovoLog 22 units 3 times a day. Recommend to maintain blood sugars less 140 fasting and less than 200 after meals. Patient may increase Levemir by 1-2 units if blood sugar not well controlled. Goal should be less than 200. 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 Recommend recheck A1c in 3 months. Diabetic education provided. Patient with hypertension. Patient previously on atenolol. Blood pressures have remained slightly elevated. At discharge lisinopril was added. At discharge he will continue with atenolol 50 mg daily and lisinopril 10 mg daily. Recommend to maintain blood pressures less 150/80. Further adjustment can be done by his PCP. Patient with hypothyroidism. At discharge he will continue with his medication of levothyroxine 75 mcg daily. Recommend to recheck tsh and free T4 in 6-8 weeks to monitor his progress. Further adjustment may be required. Patient found to have mixed hyperlipidemia. Total triglyceride level elevated at 455. Recommend lifestyle modification education. Patient has been started on Fish Oil 2000 mg twice daily. Further monitoring can be done by his PCP. Vital Signs/Physical Exam: Temp Pulse Resp BP Pulse Ox 97.7 F 75 16 166/95 H 98 08/18/18 08:00 08/18/18 09:25 08/18/18 08:00 08/18/18 09:25 08/18/18 08:00 General: Alert, In no apparent distress, Oriented x3, Cooperative HEENT: Atraumatic Neck: Supple Respiratory: Clear to auscultation bilaterally, Normal air movement Cardiovascular: Normal pulses, Regular rate/rhythm Gastrointestinal: Normal bowel sounds, Soft and benign, Non-distended, No tenderness, No masses, No rebound, No guarding Musculoskeletal: No erythema, No tenderness, No warmth Integumentary: No tenderness/swelling, No erythema, No warmth, No cyanosis Neurological: Normal speech, Other (Paraplegic below the waist) Urinary: Valera catheter (Chronic Valera catheter in place) Laboratory Data at Discharge: WBC 5.4 K/uL (4.3-10.9) 08/18/18 05:38 Hgb 13.8 g/dL (13.6-17.9) 08/18/18 05:38 Hct 39.4 % (39.6-49.0) L 08/18/18 05:38 Plt Count 136 K/uL (152-406) L 08/18/18 05:38 PT 11.1 SECONDS (9.5-12.5) 08/15/18 11:25 INR 0.94 08/15/18 11:25 Sodium 141 mmol/L (136-145) 08/18/18 05:38 Potassium 3.9 mmol/L (3.5-5.1) 08/18/18 05:38 BUN 15 mg/dL (7-18) 08/18/18 05:38 Creatinine 0.95 mg/dL (0.55-1.3) 08/18/18 05:38 Glucose 217 mg/dL (74-106) H 08/18/18 05:38 Magnesium 1.8 mg/dL (1.8-2.4) 08/18/18 05:38 Total Bilirubin 0.5 mg/dL (0.2-1.0) 08/18/18 05:38 AST 22 U/L (15-37) 08/18/18 05:38 ALT 47 U/L (12-78) 08/18/18 05:38 Alkaline Phosphatase 93 U/L (45-117) 08/18/18 05:38 Triglycerides 455 mg/dL (<150) H 08/16/18 05:34 Cholesterol 187 mg/dL (<200) 08/16/18 05:34 LDL Cholesterol Direct 112 mg/dL (100-129) 08/16/18 05:34 HDL Cholesterol 29 mg/dL (40-60) L 08/16/18 05:34 Cholesterol/HDL Ratio 6.45 08/16/18 05:34 Lipase 361 U/L (73-393) 08/15/18 21:15 Home Medications: Atenolol [Tenormin*] 50 mg PO DAILY 02/05/15 Insulin Aspart [Novolog] 22 units SQ TID 02/05/15 Insulin Detemir [Levemir] 36 unit SQ BID 02/05/15 Colchicine [Colcrys] 1 tab PO BID PRN 07/25/16 Levothyroxine [Synthroid*] 75 mcg PO [id number] 07/25/16 Furosemide [Lasix*] 1 tab PO DAILY 07/05/18 Docosahexanoic AC/Epa [Fish Oil 1,000 MG*] 2,000 mg PO BID #120 cap 08/18/18 Levofloxacin [Levaquin] 500 mg PO DAILY #5 tablet 08/18/18 Lisinopril 10 mg PO DAILY #30 tablet 08/18/18 New Medications: Docosahexanoic AC/Epa [Fish Oil 1,000 MG*] 2,000 mg PO BID #120 cap Levofloxacin [Levaquin] 500 mg PO DAILY #5 tablet Lisinopril 10 mg PO DAILY #30 tablet Patient Discharge Instructions: 1. Recommended follow up his PCP in 1 week to follow up this hospitalization. 2. Patient presented with multiple complaints including epigastric abdominal pain. Patient with history of chronic indwelling catheter with prior UTIs. He had been to the beach with family. He did enter the water. Patient found to have UTI with urine culture positive for Morganella and Serratia. Penile culture also positive for Serratia. Patient seen and evaluated by urology. Patient responded well to IV antibiotic therapy. This was transitioned to oral medication. At discharge he will continue with Levaquin 500 mg daily for 5 more days. UTI prevention education provided. It is recommended that he not go to the beach and enter the water as the patient has a chronic Valera catheter. Patient understands the risks. His Valera catheter was changed during his stay. Valera catheter will need to be changed every month. Recommend to follow up with urology in 1-2 weeks to follow up this hospitalization. 3. Patient also found to have mild pancreatitis with elevated lipase. This resolved quickly. CT scan did not show any evidence of pancreatitis. Patient will continue with current ADA diet. 4. Patient also had some erythema to the left foot. There was some suspicion for cellulitis. Patient responded well to therapy. Wound care was provided. Wound culture positive for Serratia. Patient will continue with Levaquin 500 mg daily. Patient will continue with current wound care at this time. 5. Patient with diabetes mellitus type 2 insulin dependent. Previous A1c 10.0. At discharge he will continue with his insulin regimen of Levemir 36 units twice daily and NovoLog 22 units 3 times a day. Recommend to maintain blood sugars less 140 fasting and less than 200 after meals. Patient may increase Levemir by 1-2 units if blood sugar not well controlled. Goal should be less than 200. 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 Recommend recheck A1c in 3 months. Diabetic education provided. 6. Patient with hypertension. Patient previously on atenolol. Blood pressures have remained slightly elevated. At discharge lisinopril was added. At discharge he will continue with atenolol 50 mg daily and lisinopril 10 mg daily. Recommend to maintain blood pressures less 150/80. Further adjustment can be done by his PCP. 7. Patient with hypothyroidism. At discharge he will continue with his medication of levothyroxine 75 mcg daily. Recommend to recheck tsh and free T4 in 6-8 weeks to monitor his progress. Further adjustment may be required. 8. Patient found to have mixed hyperlipidemia. Total triglyceride level elevated at 455. Recommend lifestyle modification education. Patient has been started on Fish Oil 2000 mg twice daily. Further monitoring can be done by his PCP. Diet: ADA Activity: Fall precautions Time spent managing pt's care (in minutes): 55
[2018-08-18 12:44] VITALS: BP 138/78
[2018-08-18 16:03] VITALS: O2SAT 95
== END 2018-08-18 14:15 | disposition home or self-care (01) | DRG 439 ==
LOC: ER 10:50 → ERHOLD 14:09 → 2ND 16:13
PROVIDERS: ADMIT Family Medicine; ATTEND Family Medicine
DX: K85.90 Acute pancreatitis without necrosis or infection, unspecified (principal); T83.511A Infection and inflammatory reaction due to indwelling urethral catheter, initial encounter; N39.0 Urinary tract infection, site not specified; L03.116 Cellulitis of left lower limb; N17.9 Acute kidney failure, unspecified; E87.1 Hypo-osmolality and hyponatremia; G82.20 Paraplegia, unspecified; N45.1 Epididymitis; T14.90XS Injury, unspecified, sequela; B96.89 Other specified bacterial agents as the cause of diseases classified elsewhere; I12.9 Hypertensive chronic kidney disease with stage 1 through stage 4 chronic kidney disease, or unspecified chronic kidney disease; E11.22 Type 2 diabetes mellitus with diabetic chronic kidney disease; E11.65 Type 2 diabetes mellitus with hyperglycemia; N18.3 Chronic kidney disease, stage 3 (moderate); K21.9 Gastro-esophageal reflux disease without esophagitis; E78.2 Mixed hyperlipidemia; E86.0 Dehydration; F17.210 Nicotine dependence, cigarettes, uncomplicated; M10.9 Gout, unspecified; E03.9 Hypothyroidism, unspecified; E66.9 Obesity, unspecified; Z68.35 Body mass index [BMI] 35.0-35.9, adult; X58.XXXS Exposure to other specified factors, sequela; Y84.6 Urinary catheterization as the cause of abnormal reaction of the patient, or of later complication, without mention of misadventure at the time of the procedure; Z79.4 Long term (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
CPT/HCPCS: 36415; 71045; 74176; 76870; 80048; 80053; 80061; 80076; 81003; 81015; 82947; 82962; 83690; 83735; 83880; 84439; 84443; 84484; 85025; 85610; 87070; 87077; 87086; 87088; 87186; 87205; 93005; 96361; 96374; 96375; 99251; 99285; C9113; J1650; J2405; J3010; J3475; J7030

== ENCOUNTER 2018-11-20 20:24 | Inpatient (IN) | payer OTHER ==
--- OUTSIDE RECORDS SUMMARY | 2018-11-20 20:27 | XMS REPORT | Clinical Summary ---
:1965 [facility] Address [address] [place] [address] Care Team Providers Name Role Phone Unavailable [...] Not on file Results Not on fileafter 11/19/2017 Insurance Payer Benefit Plan / Group Subscriber ID Type Phone Address [employer] xxxxxxxxx Maps Contracted Advance Directives For more information, please contact:[address] [phone] Code Status Date Activated Date Inactivated Comments Full Code 06/30/2016 7:46 PM 07/04/2016 5:23 PM This code status was determined by: Patient
--- OUTSIDE RECORDS SUMMARY | 2018-11-20 20:28 | XMS REPORT ---
:1965 [facility] [address] [place] [address] Care Team Providers Name Role Phone FAITH GOMEZ Unavailable Unavailable Problems This patient has no known problems. Allergies, Adverse Reactions, Alerts This patient has no known allergies or adverse reactions. Medications This patient has no known medications. Results Test Description Test Time Test Comments Text Results Atomic Results Result Comments BLOOD CULTURE 2016-07-07 14:28:00 Test Item Value Reference Range Comments CULTURE (BEAKER) (test krhd=7170) No growth in 5 days POCT-GLUCOSE [id number] 12:04:00 Test Item Value Reference Range Comments POC-GLUCOSE METER (BEAKER) 179 mg/dL 70-110 TESTED AT [facility] [address] [facility] (test gpdm=6607) [facility] [address] BASIC METABOLIC [id number] 09:51:00 Test Item Value Reference Range Comments SODIUM (BEAKER) (test 137 meq/L 136-145 klsi=041) POTASSIUM (BEAKER) (test 3.7 meq/L 3.5-5.1 ggjv=206) CHLORIDE (BEAKER) (test 102 meq/L 98-107 pgjq=217) CO2 (BEAKER) (test 25 meq/L 22-29 kpax=568) BLOOD UREA NITROGEN 17 mg/dL 7-21 (BEAKER) (test ppab=666) CREATININE (BEAKER) (test 1.04 mg/dL 0.57-1.25 fvnp=461) GLUCOSE RANDOM (BEAKER) 195 mg/dL 70-105 (test tgyb=618) CALCIUM (BEAKER) (test 9.2 mg/dL 8.4-10.2 dtuv=174) EGFR (BEAKER) (test 76 mL/min/1.73 sq m ESTIMATED GFR IS NOT aloe=8630) ACCURATE CREATININE CLEARANCE IN PREDICTING GLOMERULAR FILTRATION RATE. ESTIMATED GFR IS NOT APPLICABLE FOR DIALYSIS PATIENTS. CBC W/PLT COUNT & AUTO [id number] 09:20:00 Test Item Value Reference Range Comments WHITE BLOOD CELL COUNT (BEAKER) (test bkor=775) 6.1 K/ L 4.0-10.0 RED BLOOD CELL COUNT (BEAKER) (test vmce=428) 4.63 M/ L 4.20-5.80 HEMOGLOBIN (BEAKER) (test kcyo=994) 13.7 GM/DL 13.0-16.8 HEMATOCRIT (BEAKER) (test abiw=315) 39.8 % 40.0-50.0 MEAN CORPUSCULAR VOLUME (BEAKER) (test sbec=413) 85.9 fL 82.0-98.0 MEAN CORPUSCULAR HEMOGLOBIN (BEAKER) (test 29.6 pg 27.0-33.0 pzlp=650) MEAN CORPUSCULAR HEMOGLOBIN CONC (BEAKER) (test 34.5 GM/DL 32.0-36.0 kgpa=233) RED CELL DISTRIBUTION WIDTH (BEAKER) (test 14.8 % 10.3-14.2 zzhl=514) PLATELET COUNT (BEAKER) (test snqi=240) 143 K/CU MM 150-430 MEAN PLATELET VOLUME (BEAKER) (test qkeh=334) 8.6 fL 6.5-10.5 NUCLEATED RED BLOOD CELLS (BEAKER) (test 0 /100 WBC 0-0 cssy=022) NEUTROPHILS RELATIVE PERCENT (BEAKER) (test 71 % wurz=640) LYMPHOCYTES RELATIVE PERCENT (BEAKER) (test 20 % damq=431) MONOCYTES RELATIVE PERCENT (BEAKER) (test 5 % yjnd=275) EOSINOPHILS RELATIVE PERCENT (BEAKER) (test 3 % whtd=667) BASOPHILS RELATIVE PERCENT (BEAKER) (test 1 % zhmk=591) NEUTROPHILS ABSOLUTE COUNT (BEAKER) (test 4.31 K/ L 1.80-8.00 qwzw=406) LYMPHOCYTES ABSOLUTE COUNT (BEAKER) (test 1.23 K/ L 1.48-4.50 brqf=139) MONOCYTES ABSOLUTE COUNT (BEAKER) (test 0.28 K/ L 0.00-1.30 touz=806) EOSINOPHILS ABSOLUTE COUNT (BEAKER) (test 0.21 K/ L 0.00-0.50 zlbv=932) BASOPHILS ABSOLUTE COUNT (BEAKER) (test 0.03 K/ L 0.00-0.20 nyic=058) 0.00POCT-GLUCOSE [id number] 07:15:00 Test Item Value Reference Range Comments POC-GLUCOSE METER (BEAKER) 246 mg/dL 70-110 TESTED AT [address] (test fwfh=6061) [place] [address] POCT-GLUCOSE [id number] 21:12:00 Test Item Value Reference Range Comments POC-GLUCOSE METER (BEAKER) 89 mg/dL 70-110 TESTED AT [address] (test spyf=2284) [place] [address] POCT-GLUCOSE [id number] 17:12:00 Test Item Value Reference Range Comments POC-GLUCOSE METER (BEAKER) 217 mg/dL 70-110 TESTED AT [address] (test ryms=5458) [place] [address] URINE [id number] 12:07:00 Test Item Value Reference Range Comments CULTURE (BEAKER) (test izsl=5130) <10,000 col/mL skin candi POCT-GLUCOSE [id number] 11:30:00 Test Item Value Reference Range Comments POC-GLUCOSE METER (BEAKER) 205 mg/dL 70-110 TESTED AT [address] (test ccum=2916) [place] [address] POCT-GLUCOSE [id number] 07:36:00 Test Item Value Reference Range Comments POC-GLUCOSE METER (BEAKER) 195 mg/dL 70-110 TESTED AT [address] (test gpgf=2181) [place] [address] CBC W/PLT COUNT & AUTO [id number] 05:14:00 Test Item Value Reference Range Comments WHITE BLOOD CELL COUNT (BEAKER) (test vnrm=642) 6.7 K/ L 4.0-10.0 RED BLOOD CELL COUNT (BEAKER) (test nzmx=026) 4.40 M/ L 4.20-5.80 HEMOGLOBIN (BEAKER) (test ydmo=689) 13.3 GM/DL 13.0-16.8 HEMATOCRIT (BEAKER) (test fxvl=173) 38.2 % 40.0-50.0 MEAN CORPUSCULAR VOLUME (BEAKER) (test qpgj=348) 86.8 fL 82.0-98.0 MEAN CORPUSCULAR HEMOGLOBIN (BEAKER) (test 30.1 pg 27.0-33.0 ohdh=683) MEAN CORPUSCULAR HEMOGLOBIN CONC (BEAKER) (test 34.7 GM/DL 32.0-36.0 noor=754) RED CELL DISTRIBUTION WIDTH (BEAKER) (test 14.7 % 10.3-14.2 nopj=275) PLATELET COUNT (BEAKER) (test cosf=228) 144 K/CU MM 150-430 MEAN PLATELET VOLUME (BEAKER) (test wzmx=956) 9.0 fL 6.5-10.5 NUCLEATED RED BLOOD CELLS (BEAKER) (test 0 /100 WBC 0-0 dbim=750) NEUTROPHILS RELATIVE PERCENT (BEAKER) (test 67 % ltai=729) LYMPHOCYTES RELATIVE PERCENT (BEAKER) (test 25 % owoh=349) MONOCYTES RELATIVE PERCENT (BEAKER) (test 5 % dpxa=075) EOSINOPHILS RELATIVE PERCENT (BEAKER) (test 2 % nnfz=180) BASOPHILS RELATIVE PERCENT (BEAKER) (test 0 % zeft=931) NEUTROPHILS ABSOLUTE COUNT (BEAKER) (test 4.52 K/ L 1.80-8.00 ufup=582) LYMPHOCYTES ABSOLUTE COUNT (BEAKER) (test 1.70 K/ L 1.48-4.50 xjej=517) MONOCYTES ABSOLUTE COUNT (BEAKER) (test 0.32 K/ L 0.00-1.30 revm=262) EOSINOPHILS ABSOLUTE COUNT (BEAKER) (test 0.16 K/ L 0.00-0.50 kdbr=368) BASOPHILS ABSOLUTE COUNT (BEAKER) (test 0.03 K/ L 0.00-0.20 fxre=943) 0.00BASI METABOLIC [id number] 05:14:00 Test Item Value Reference Range Comments SODIUM (BEAKER) (test 134 meq/L 136-145 tpyq=941) POTASSIUM (BEAKER) (test 4.2 meq/L 3.5-5.1 dmsr=663) CHLORIDE (BEAKER) (test 101 meq/L 98-107 orhq=457) CO2 (BEAKER) (test 24 meq/L 22-29 hzzx=167) BLOOD UREA NITROGEN 20 mg/dL 7-21 (BEAKER) (test jkgi=323) CREATININE (BEAKER) (test 1.16 mg/dL 0.57-1.25 sjjl=238) GLUCOSE RANDOM (BEAKER) 216 mg/dL 70-105 (test etfl=432) CALCIUM (BEAKER) (test 8.8 mg/dL 8.4-10.2 ivun=764) EGFR (BEAKER) (test 67 mL/min/1.73 sq m ESTIMATED GFR IS NOT mpzj=7292) ACCURATE CREATININE CLEARANCE IN PREDICTING GLOMERULAR FILTRATION RATE. ESTIMATED GFR IS NOT APPLICABLE FOR DIALYSIS PATIENTS. POCT-GLUCOSE [id number] 21:04:00 Test Item Value Reference Range Comments POC-GLUCOSE METER (BEAKER) 178 mg/dL 70-110 TESTED AT [address] (test igwv=1625) [place] [id number] POCT-GLUCOSE [id number] 17:07:00 Test Item Value Reference Range Comments POC-GLUCOSE METER (BEAKER) 88 mg/dL 70-110 TESTED AT [address] (test agjh=9667) [place] [id number] POCT-GLUCOSE [id number] 12:30:00 Test Item Value Reference Range Comments POC-GLUCOSE METER (BEAKER) 107 mg/dL 70-110 TESTED AT [address] (test gqnx=7162) [place] [id number] POCT-GLUCOSE [id number] 07:46:00 Test Item Value Reference Range Comments POC-GLUCOSE METER (BEAKER) 169 mg/dL 70-110 TESTED AT [address] (test lmhy=0129) [place] [id number] CBC W/PLT COUNT & AUTO [id number] 07:42:00 Test Item Value Reference Range Comments WHITE BLOOD CELL COUNT (BEAKER) (test ylna=872) 6.5 K/ L 4.0-10.0 RED BLOOD CELL COUNT (BEAKER) (test uppn=329) 4.57 M/ L 4.20-5.80 HEMOGLOBIN (BEAKER) (test eehe=594) 13.4 GM/DL 13.0-16.8 HEMATOCRIT (BEAKER) (test lurw=503) 40.4 % 40.0-50.0 MEAN CORPUSCULAR VOLUME (BEAKER) (test qlwl=415) 88.3 fL 82.0-98.0 MEAN CORPUSCULAR HEMOGLOBIN (BEAKER) (test 29.3 pg 27.0-33.0 mwkh=830) MEAN CORPUSCULAR HEMOGLOBIN CONC (BEAKER) (test 33.2 GM/DL 32.0-36.0 bkbd=660) RED CELL DISTRIBUTION WIDTH (BEAKER) (test 13.8 % 10.3-14.2 tnpk=175) PLATELET COUNT (BEAKER) (test vqqx=926) 150 K/CU MM 150-430 MEAN PLATELET VOLUME (BEAKER) (test pmts=926) 9.0 fL 6.5-10.5 NUCLEATED RED BLOOD CELLS (BEAKER) (test 0 /100 WBC 0-0 rhle=310) NEUTROPHILS RELATIVE PERCENT (BEAKER) (test 64 % vocn=578) LYMPHOCYTES RELATIVE PERCENT (BEAKER) (test 26 % ccwe=418) MONOCYTES RELATIVE PERCENT (BEAKER) (test 7 % zonl=747) EOSINOPHILS RELATIVE PERCENT (BEAKER) (test 3 % nxkb=496) BASOPHILS RELATIVE PERCENT (BEAKER) (test 0 % lrkp=596) NEUTROPHILS ABSOLUTE COUNT (BEAKER) (test 4.13 K/ L 1.80-8.00 hkrj=712) LYMPHOCYTES ABSOLUTE COUNT (BEAKER) (test 1.66 K/ L 1.48-4.50 dzkw=947) MONOCYTES ABSOLUTE COUNT (BEAKER) (test 0.44 K/ L 0.00-1.30 yasl=745) EOSINOPHILS ABSOLUTE COUNT (BEAKER) (test 0.21 K/ L 0.00-0.50 rcdd=326) BASOPHILS ABSOLUTE COUNT (BEAKER) (test 0.03 K/ L 0.00-0.20 itkh=318) 0.00BASI METABOLIC [id number] 06:13:00 Test Item Value Reference Range Comments SODIUM (BEAKER) (test 136 meq/L 136-145 glgq=827) POTASSIUM (BEAKER) (test 3.6 meq/L 3.5-5.1 otac=944) CHLORIDE (BEAKER) (test 101 meq/L 98-107 gtpo=815) CO2 (BEAKER) (test 25 meq/L 22-29 ozcn=500) BLOOD UREA NITROGEN 18 mg/dL 7-21 (BEAKER) (test okju=903) CREATININE (BEAKER) (test 1.07 mg/dL 0.57-1.25 gyja=516) GLUCOSE RANDOM (BEAKER) 188 mg/dL 70-105 (test phdp=980) CALCIUM (BEAKER) (test 8.8 mg/dL 8.4-10.2 iswa=971) EGFR (BEAKER) (test 73 mL/min/1.73 sq m ESTIMATED GFR IS NOT mrbm=7777) ACCURATE CREATININE CLEARANCE IN PREDICTING GLOMERULAR FILTRATION RATE. ESTIMATED GFR IS NOT APPLICABLE FOR DIALYSIS PATIENTS. POCT-GLUCOSE [id number] 22:12:00 Test Item Value Reference Range Comments POC-GLUCOSE METER (BEAKER) 238 mg/dL 70-110 TESTED AT [place] [id number] [facility] (test nscv=1043) [facility] [address] POCT-GLUCOSE [id number] 17:25:00 Test Item Value Reference Range Comments POC-GLUCOSE METER (BEAKER) 102 mg/dL 70-110 TESTED AT [address] (test ztsj=1998) [facility] [address] URINALYSIS W/ [id number] 12:50:00 Test Item Value Reference Range Comments COLOR (BEAKER) (test iink=533) Colorless CLARITY (BEAKER) (test xdne=353) Clear SPECIFIC GRAVITY UA (BEAKER) (test dyrc=037) 1.002 1.001-1.035 PH UA (BEAKER) (test mulk=910) 6.5 5.0-8.0 PROTEIN UA (BEAKER) (test qarc=374) Negative Negative GLUCOSE UA (BEAKER) (test eszo=590) Negative Negative KETONES UA (BEAKER) (test fifk=014) Negative Negative BILIRUBIN UA (BEAKER) (test oqsh=857) Negative Negative BLOOD UA (BEAKER) (test rgtx=393) Negative Negative NITRITE UA (BEAKER) (test iabb=737) Negative Negative LEUKOCYTE ESTERASE UA (BEAKER) (test cote=562) Negative Negative UROBILINOGEN UA (BEAKER) (test xavh=865) 0.2 mg/dL 0.2-1.0 RBC UA (BEAKER) (test rgpy=182) 0 /HPF WBC UA (BEAKER) (test ogzs=079) < /HPF SOURCE(BEAKER) (test dbaf=1113) POCT-GLUCOSE [id number] 12:04:00 Test Item Value Reference Range Comments POC-GLUCOSE METER (BEAKER) 226 mg/dL 70-110 TESTED AT [facility] [address] [facility] (test ltzk=9668) [facility] [address] POCT-GLUCOSE [id number] 08:00:00 Test Item Value Reference Range Comments POC-GLUCOSE METER (BEAKER) 300 mg/dL 70-110 TESTED AT [facility] [address] [facility] (test wtle=3279) [facility] [address] BASIC METABOLIC [id number] 06:50:00 Test Item Value Reference Range Comments SODIUM (BEAKER) (test 134 meq/L 136-145 qsma=520) POTASSIUM (BEAKER) (test 4.0 meq/L 3.5-5.1 ywdx=710) CHLORIDE (BEAKER) (test 98 meq/L 98-107 worf=937) CO2 (BEAKER) (test 26 meq/L 22-29 lpsn=924) BLOOD UREA NITROGEN 18 mg/dL 7-21 (BEAKER) (test bgiz=142) CREATININE (BEAKER) (test 1.25 mg/dL 0.57-1.25 wnuu=454) GLUCOSE RANDOM (BEAKER) 349 mg/dL 70-105 (test lerb=730) CALCIUM (BEAKER) (test 8.9 mg/dL 8.4-10.2 gebh=083) EGFR (BEAKER) (test 61 mL/min/1.73 sq m ESTIMATED GFR IS NOT zozv=5300) ACCURATE CREATININE CLEARANCE IN PREDICTING GLOMERULAR FILTRATION RATE. ESTIMATED GFR IS NOT APPLICABLE FOR DIALYSIS PATIENTS. CBC W/PLT COUNT & AUTO [id number] 06:01:00 Test Item Value Reference Range Comments WHITE BLOOD CELL COUNT (BEAKER) (test hhfl=650) 6.6 K/ L 4.0-10.0 RED BLOOD CELL COUNT (BEAKER) (test vfwu=058) 4.79 M/ L 4.20-5.80 HEMOGLOBIN (BEAKER) (test virw=747) 14.1 GM/DL 13.0-16.8 HEMATOCRIT (BEAKER) (test qbcl=923) 42.0 % 40.0-50.0 MEAN CORPUSCULAR VOLUME (BEAKER) (test hdog=442) 87.7 fL 82.0-98.0 MEAN CORPUSCULAR HEMOGLOBIN (BEAKER) (test 29.5 pg 27.0-33.0 ugsg=808) MEAN CORPUSCULAR HEMOGLOBIN CONC (BEAKER) (test 33.6 GM/DL 32.0-36.0 tlca=579) RED CELL DISTRIBUTION WIDTH (BEAKER) (test 14.9 % 10.3-14.2 csur=113) PLATELET COUNT (BEAKER) (test lxxl=537) 157 K/CU MM 150-430 MEAN PLATELET VOLUME (BEAKER) (test llgc=740) 9.0 fL 6.5-10.5 NUCLEATED RED BLOOD CELLS (BEAKER) (test 0 /100 WBC 0-0 kggp=822) NEUTROPHILS RELATIVE PERCENT (BEAKER) (test 67 % ubbz=946) LYMPHOCYTES RELATIVE PERCENT (BEAKER) (test 23 % illj=059) MONOCYTES RELATIVE PERCENT (BEAKER) (test 7 % prkj=604) EOSINOPHILS RELATIVE PERCENT (BEAKER) (test 3 % fykx=374) BASOPHILS RELATIVE PERCENT (BEAKER) (test 0 % pifm=939) NEUTROPHILS ABSOLUTE COUNT (BEAKER) (test 4.44 K/ L 1.80-8.00 nehh=003) LYMPHOCYTES ABSOLUTE COUNT (BEAKER) (test 1.51 K/ L 1.48-4.50 ixct=062) MONOCYTES ABSOLUTE COUNT (BEAKER) (test 0.43 K/ L 0.00-1.30 innv=660) EOSINOPHILS ABSOLUTE COUNT (BEAKER) (test 0.21 K/ L 0.00-0.50 iiow=094) BASOPHILS ABSOLUTE COUNT (BEAKER) (test 0.03 K/ L 0.00-0.20 hkgi=832) 0.00POCT-GLUCOSE [id number] 21:25:00 Test Item Value Reference Range Comments POC-GLUCOSE METER (BEAKER) 279 mg/dL 70-110 TESTED AT [facility] [address] [facility] (test yhgv=2423) [facility] [address] HEMOGLOBIN [id number] 21:13:00 Test Item Value Reference Range Comments HEMOGLOBIN A1C (BEAKER) (test tszf=685) 10.7 % 4.3-6.1 CBC W/PLT COUNT & AUTO [id number] 20:47:00 Test Item Value Reference Range Comments WHITE BLOOD CELL COUNT (BEAKER) (test tckl=186) 7.3 K/ L 4.0-10.0 RED BLOOD CELL COUNT (BEAKER) (test pfdw=598) 5.25 M/ L 4.20-5.80 HEMOGLOBIN (BEAKER) (test akus=883) 15.7 GM/DL 13.0-16.8 HEMATOCRIT (BEAKER) (test rzah=467) 46.0 % 40.0-50.0 MEAN CORPUSCULAR VOLUME (BEAKER) (test cvuq=532) 87.7 fL 82.0-98.0 MEAN CORPUSCULAR HEMOGLOBIN (BEAKER) (test 30.0 pg 27.0-33.0 mlvu=380) MEAN CORPUSCULAR HEMOGLOBIN CONC (BEAKER) (test 34.2 GM/DL 32.0-36.0 zfjp=492) RED CELL DISTRIBUTION WIDTH (BEAKER) (test 13.8 % 10.3-14.2 fkme=533) PLATELET COUNT (BEAKER) (test xcdh=146) 166 K/CU MM 150-430 MEAN PLATELET VOLUME (BEAKER) (test mowx=313) 8.3 fL 6.5-10.5 NUCLEATED RED BLOOD CELLS (BEAKER) (test 0 /100 WBC 0-0 xenz=247) NEUTROPHILS RELATIVE PERCENT (BEAKER) (test 69 % lwhc=178) LYMPHOCYTES RELATIVE PERCENT (BEAKER) (test 22 % egfx=341) MONOCYTES RELATIVE PERCENT (BEAKER) (test 5 % yoho=660) EOSINOPHILS RELATIVE PERCENT (BEAKER) (test 3 % zisk=584) BASOPHILS RELATIVE PERCENT (BEAKER) (test 0 % ndht=313) NEUTROPHILS ABSOLUTE COUNT (BEAKER) (test 5.04 K/ L 1.80-8.00 ybqb=239) LYMPHOCYTES ABSOLUTE COUNT (BEAKER) (test 1.63 K/ L 1.48-4.50 zhqk=416) MONOCYTES ABSOLUTE COUNT (BEAKER) (test 0.40 K/ L 0.00-1.30 gnmz=684) EOSINOPHILS ABSOLUTE COUNT (BEAKER) (test 0.22 K/ L 0.00-0.50 unfz=061) BASOPHILS ABSOLUTE COUNT (BEAKER) (test 0.01 K/ L 0.00-0.20 bnbi=262) 0.00POCT-GLUCOSE [id number] 18:31:00 Test Item Value Reference Range Comments POC-GLUCOSE METER (BEAKER) 205 mg/dL 70-110 TESTED AT [address] (test gagl=3882) [facility] [address]
[2018-11-20] MEDS ORDERED: ACETAMINOPHEN 500 MG TAB ONE (21:18)
[2018-11-20] MEDS ORDERED: NA CHLORIDE 0.9% 1,000 ML ONE ×2 (21:18→23:15)
[2018-11-20 21:48] LABS: Absolute Lymphocytes (CBC) 1.1 K/uL (0.7-4.9); Basophils % 0.2 % (0-1.3); Bilirubin Total 0.6 mg/dL (0.2-1.0); Hematocrit 43.4 % (39.6-49.0); Lymphocytes % 8.7 % (15.3-44.8); MPV 11.3 fL (7.6-11.3); Potassium 4.7 mmol/L (3.5-5.1); Protein, Total 7.6 g/dL (6.4-8.2); RBC Red Blood Cell Count 4.82 M/uL (4.33-5.43)
[2018-11-20 22:34] LABS: Urine Blood 1+ (NEG); Urine Glucose 2+ (NEG); Urine Protein 1+ (NEG); Urine Specific Gravity 1.015 (1.005-1.030); Urine pH 5.5 (5.0-7.0)
[2018-11-20 22:34] LABS: Urine Amorphous Sediment 1+ /HPF (NONE SEEN); Urine Bacteria <20 /HPF (NONE SEEN); Urine Culture Reflex Order NOT NEEDED; Urine RBC <5 /HPF (NONE SEEN)
[2018-11-20] MEDS ORDERED: Levofloxacin500mg IV 500 MG/100 ML BAG IV ONE (23:02)
--- NOTE | 2018-11-21 00:36 | ER ---
Nurse's Notes [facility] Name: Ramirez Chaudhari Age: 53 yrs Sex: Male : 1965 Arrival Date: 11/20/2018 Time: 20:28 Bed 18 Private MD: Diagnosis: Urinary tract infection, site not specified;Proctitis;Cellulitis of buttock Presentation: 11/20 20:56 Presenting complaint: Patient states: Reports fever, possible UTI, headache, weakness ea and fever that started last night. reports the urine in his [place] has a foul smell, and has been complaining of chills. Transition of care: patient was not received from another setting of care. Onset of symptoms was November 20, 2018. Risk Assessment: Do you want to hurt yourself or someone else? Patient reports no desire to harm self or others. Initial Sepsis Screen: Does the patient meet any 2 criteria? HR > 90 bpm. Does the patient have a suspected source of infection? Yes: Other: reports foul smelling urine. Care prior to arrival: None. 20:56 Method Of Arrival: Wheelchair ea 20:56 Acuity: NOHEMI 3 ea Historical: - Allergies: 21:02 Ibuprofen; ea 21:02 metformin; ea - Home Meds: 21:02 Novolog 22 units Sub-Q before meals [Active]; levothyroxine 75 mcg tab 1 tab once daily ea [Active]; Levemir 36 units subcutaneous soln twice a day [Active]; Colcrys 0.6 mg Oral tab 1 tab bid prn gout [Active]; atenolol 50 mg Oral tab 1 tab once daily [Active]; - PMHx: 21:02 Spinal Stroke; Renal Disease; Paraplegia; Migraines; Hypothyroidism; Hypertension; ea Hydrocele Left Testicle; High Cholesterol; Gout; GERD; Diabetes - IDDM; ADD/ADHD; - PSHx: 21:02 spinal surgery; ea - Immunization history:: Adult Immunizations up to date. - Social history:: Smoking status: Patient/guardian denies using tobacco. - Ebola Screening: : No symptoms or risks identified at this time. Screenin:59 Abuse screen: Denies threats or abuse. Nutritional screening: No deficits noted. ea Tuberculosis screening: No symptoms or risk factors identified. Fall Risk Gait- Impaired (20 pts.). Assessment: 21:10 General: Appears in no apparent distress. comfortable, Behavior is calm, cooperative, ca1 appropriate for age, Reports chills for fever for 12-24 hours. Pain: Complains of pain in all over Pain currently is 7 out of 10 on a pain scale. Pain began 1 day ago. Neuro: Level of Consciousness is awake, alert, obeys commands, Oriented to person, place, time, situation. Cardiovascular: Heart tones S1 S2 present Capillary refill < 3 seconds Patient's skin is warm and dry. Pulses are all present. Respiratory: Airway is patent Respiratory effort is even, unlabored, Respiratory pattern is regular, Breath sounds are clear bilaterally. GI: Abdomen is round non-distended, Bowel sounds present X 4 quads. Abd is soft and non tender X 4 quads. : Myers in place to gravity drainage Urine is cloudy. EENT: Ear canal clear on left ear and right ear Throat is pink. Derm: Skin is intact, is healthy with good turgor, Skin is pink, warm \T\ dry. Musculoskeletal: Capillary refill < 3 seconds, Range of motion: limited in left hip and right hip. 22:15 Reassessment: Patient appears in no apparent distress at this time. Patient and/or ca1 family updated on plan of care and expected duration. Pain level reassessed. Patient is alert, oriented x 3, equal unlabored respirations, skin warm/dry/pink. 22:15 Reassessment: Critical Lab: Glu 410. Notified provider. ca1 23:53 Reassessment: Patient appears in no apparent distress at this time. Patient and/or ca1 family updated on plan of care and expected duration. Pain level reassessed. Patient is alert, oriented x 3, equal unlabored respirations, skin warm/dry/pink. Pt back from CT scan. 11/21 01:56 Reassessment: pt resting quietly, resp unlabored, IV site intact, patent with fluids bb infusing, family at bedside awaiting room assignment. 02:35 Reassessment: pt appears to be sleeping, eyes closed, resp unlabored, no signs of bb discomfort noted, IV site intact, patent, with fluids infusing, myers to bedside drain with clear, yellow urine, pt to be ED hold, family at bedside. 04:11 Reassessment: Patient appears in no apparent distress at this time. Patient and/or jb4 family updated on plan of care and expected duration. Pain level reassessed. PT admitted to ER hold, resting in bed with eyes closed, respirations even and unlabored. no s/s of distress or pain noted. See [facility] for further documentation and vital signs. Vital Signs: 11/20 20:59 BP 149 / 89; Pulse 118; Resp 20; Temp 99.6; Pulse Ox 98% on R/A; Weight 106.59 kg; ea Height 5 ft. 8 in. (172.72 cm); Pain 8/10; 21:34 BP 112 / 74; Pulse 112; Resp 19 S; Temp 99.4(O); Pulse Ox 95% on R/A; ca1 22:15 BP 104 / 65; Pulse 96; Resp 17 S; Pulse Ox 95% on R/A; ca1 22:38 Temp 98.7(O); jp3 23:55 BP 123 / 76; Pulse 89; Resp 17 S; Pulse Ox 96% on R/A; ca1 11/21 01:56 BP 121 / 73; Pulse 90; Resp 16 S; Pulse Ox 94% on R/A; bb 02:36 BP 100 / 67; Pulse 92; Resp 16 S; Pulse Ox 97% on R/A; bb 04:00 BP 110 / 62; Pulse 89; Resp 16; Pulse Ox 95% on R/A; jb4 11/20 20:59 Body Mass Index 35.73 (106.59 kg, 172.72 cm) ea ED Course: 11/20 20:28 Patient arrived in ED. cf2 20:49 Folrin Danielle PA is PHCP. jm 20:51 Brodie Zheng MD is Attending Physician. [facility] 20:53 Kathy Beck, NORBERTO is Primary Nurse. ca1 20:59 Triage completed. ea 21:00 Arm band placed on right wrist. Patient placed in an exam room, on a stretcher, on ea pulse oximetry. 21:10 Patient has correct armband on for positive identification. Placed in gown. Bed in low ca1 position. Call light in reach. Side rails up X2. Pulse ox on. NIBP on. 21:10 No provider procedures requiring assistance completed. First set of blood cultures ca1 drawn. Inserted saline lock: 20 gauge in right antecubital area, using aseptic technique. Blood collected. 21:28 Second set of blood cultures drawn by ma. ca1 22:32 Urine Dipstick--Ancillary (enter results) Sent. jp3 22:33 Urine Microscopic Only Sent. jp3 22:33 Urine Culture Sent. jp3 22:33 Strep Sent. jp3 22:33 Flu Sent. jp3 22:33 Blood Culture Adult (2) Sent. jp3 22:33 Lactate Sent. jp3 22:33 Procalcitonin Sent. jp3 22:33 CMP Sent. jp3 22:33 CBC with Diff Sent. jp3 22:34 Urine collected: Myers catheter specimen, clear, dwayne colored, Amount Returned: 5mL. jp3 11/21 00:33 Yohana Bustos MD is Hospitalizing Provider. rn 01:57 Patient admitted, IV remains in place. bb Administered Medications: 11/20 21:15 Drug: NS 0.9% 1000 ml Route: IV; Rate: 1 bolus; Site: right antecubital; ca1 22:12 Follow up: Response: No adverse reaction; IV Status: Completed infusion ca1 21:15 Drug: Tylenol 1000 mg Route: PO; ca1 22:12 Follow up: Response: No adverse reaction; Temperature is decreased ca1 23:05 Drug: LevaQUIN 500 mg Volume: 100 ml; Route: IVPB; Infused Over: 60 mins; Site: right ca1 antecubital; 23:15 Drug: NS 0.9% 1000 ml Route: IV; Rate: 1000 ml; Site: right antecubital; ca1 11/21 00:54 Drug: vancoMYCIN 1 grams Route: IVPB; Infused Over: 2 hrs; Site: right antecubital; bb 02:53 Follow up: IV Status: Completed infusion; IV Intake: 250ml bb Intake: 02:53 IV: 250ml; Total: 250ml. bb Outcome: 00:33 Decision to Hospitalize by Provider. rn 01:57 Instructed on the need for admit. bb 04:00 Admitted to ER Hold. Please see [facility] for further documentation. jb4 04:00 Condition: stable 10:01 Patient left the ED. em Signatures: Florin Danielle PA PA jmm Munoz, Edgar, SURGICAL SCRUB TECHNOLOGIST SURGICAL SCRUB TECHNOLOGIST em Elayne Chavez RN RN bb Brodie Zheng MD MD rn Bryson, James, RN RN jb4 Lindy Ortiz RN RN ea Emmanuel Can jp3 Kathy Beck, RN RN ca1 Kim Vieira cf2
--- NOTE | 2018-11-21 00:39 | EDPHYS ---
Physician Documentation [facility] Name: Ramirez Chaudhari Age: 53 yrs Sex: Male : 1965 Arrival Date: 11/20/2018 Time: 20:28 Bed 18 Private MD: ED Physician Brodie Zheng HPI: 11/20 21:05 This 53 yrs old Male presents to ER via Wheelchair with complaints of Fever, jmm Ear Pain. 21:05 Onset: The symptoms/episode began/occurred gradually, 1 week(s) ago. Modifying factors: jmm there are no obvious modifying factors. This is a 53 year old male with a history of renal disease that presents to the ED with complaints of earache, body aches, headache, dental pain beginning approx 1 week ago worsening yesterday. Denies cough. Complains of sore throat. . Historical: - Allergies: 21:02 Ibuprofen; ea 21:02 metformin; ea - Home Meds: 21:02 Novolog 22 units Sub-Q before meals [Active]; levothyroxine 75 mcg tab 1 tab once daily ea [Active]; Levemir 36 units subcutaneous soln twice a day [Active]; Colcrys 0.6 mg Oral tab 1 tab bid prn gout [Active]; atenolol 50 mg Oral tab 1 tab once daily [Active]; - PMHx: 21:02 Spinal Stroke; Renal Disease; Paraplegia; Migraines; Hypothyroidism; Hypertension; ea Hydrocele Left Testicle; High Cholesterol; Gout; GERD; Diabetes - IDDM; ADD/ADHD; - PSHx: 21:02 spinal surgery; ea - Immunization history:: Adult Immunizations up to date. - Social history:: Smoking status: Patient/guardian denies using tobacco. - Ebola Screening: : No symptoms or risks identified at this time. ROS: 21:05 Cardiovascular: Negative for chest pain, palpitations, and edema, Respiratory: Negative jmm for shortness of breath, cough, wheezing, and pleuritic chest pain. 21:05 Constitutional: Positive for body aches, fever. 21:05 ENT: Positive for ear pain, sore throat. 21:05 Abdomen/GI: Positive for diarrhea. 21:05 Neuro: Positive for headache. 21:05 All other systems are negative. Exam: 21:05 Constitutional: This is a well developed, well nourished patient who is awake, alert, jmm and in no acute distress. Head/Face: atraumatic. Eyes: EOMI, no conjunctival erythema appreciated ENT: Moist Mucus Membranes Neck: Trachea midline, Supple Chest/axilla: Normal chest wall appearance and motion. Cardiovascular: Regular rate and rhythm. No edema appreciated Respiratory: Normal respirations, no respiratory distress appreciated 21:05 Skin: General appearance color normal MS/ Extremity: Moves all extremities, no obvious deformities appreciated, no edema noted to the lower extremities Neuro: Awake and alert, normal gait Psych: Behavior is normal, Mood is normal, Patient is cooperative and pleasant 21:05 Abdomen/GI: Inspection: abdomen appears normal, Bowel sounds: normal, Palpation: abdomen is soft and non-tender, in all quadrants. Vital Signs: 20:59 BP 149 / 89; Pulse 118; Resp 20; Temp 99.6; Pulse Ox 98% on R/A; Weight 106.59 kg; ea Height 5 ft. 8 in. (172.72 cm); Pain 8/10; 21:34 BP 112 / 74; Pulse 112; Resp 19 S; Temp 99.4(O); Pulse Ox 95% on R/A; ca1 22:15 BP 104 / 65; Pulse 96; Resp 17 S; Pulse Ox 95% on R/A; ca1 22:38 Temp 98.7(O); jp3 23:55 BP 123 / 76; Pulse 89; Resp 17 S; Pulse Ox 96% on R/A; ca1 11/21 01:56 BP 121 / 73; Pulse 90; Resp 16 S; Pulse Ox 94% on R/A; bb 02:36 BP 100 / 67; Pulse 92; Resp 16 S; Pulse Ox 97% on R/A; bb 04:00 BP 110 / 62; Pulse 89; Resp 16; Pulse Ox 95% on R/A; jb4 11/20 20:59 Body Mass Index 35.73 (106.59 kg, 172.72 cm) ea MDM: 11/20 21:02 Patient medically screened. jmm 21:48 Data reviewed: vital signs, nurses notes. Transition of care: After a detail discussion tatyana of the patient's case, care is transferred to Brodie Zheng MD. 11/21 00:31 Differential diagnosis: bacterial infection, UTI, perirectal infection, yojana-rectal rn abscess. Counseling: I had a detailed discussion with the patient and/or guardian regarding: the historical points, exam findings, and any diagnostic results supporting the discharge/admit diagnosis, lab results, radiology results, the need for further work-up and treatment in the hospital. Response to treatment: the patient's symptoms have mildly improved after treatment, and as a result, I will admit patient. ED course: Consulted with Dr. Badillo regarding thickened perianal skin with drainage, ct does not show surgical finding or fluid collection. Most likely inflammation or early ulcer formation given paraplegic. Will add abx given fever/and foul smell. Dr. Badillo will consult on patient tomorrow. Admitted to Dr. Bustos.. 11/20 21:04 Order name: CBC with Diff [facility] 11/20 21:04 Order name: CMP [facility] 11/20 21:04 Order name: Procalcitonin [facility] 11/20 21:04 Order name: Lactate [facility] 11/20 21:04 Order name: Blood Culture Adult (2) [facility] 11/20 21:04 Order name: Urine Culture [facility] 11/20 21:04 Order name: Urine Microscopic Only [facility] 11/20 21:04 Order name: Flu [facility] 11/20 21:04 Order name: Strep [facility] 11/20 21:39 Order name: Group A Streptococcus Rapid Sc; Complete Time: 21:39 [facility] 11/20 21:49 Order name: Lactate; Complete Time: 22:53 [facility] 11/20 21:51 Order name: Influenza Screen (A ; Complete Time: 22:53 [facility] 11/20 21:59 Order name: Comprehensive Metabolic Panel; Complete Time: 22:53 [facility] 11/20 22:26 Order name: CBC with Automated Diff; Complete Time: 22:53 [facility] 11/20 21:04 Order name: Saline Lock; Complete Time: 21:24 [facility] 11/20 21:04 Order name: Urine Dipstick-Ancillary (obtain specimen); Complete Time: 22:13 [facility] 11/20 22:29 Order name: Urine Dipstick--Ancillary (enter results) tx5 11/20 22:31 Order name: Procalcitonin; Complete Time: 22:53 [facility] 11/20 22:35 Order name: Urine Dipstick-Ancillary; Complete Time: 22:53 [facility] 11/20 22:36 Order name: Urine Microscopic Only; Complete Time: 22:53 [facility] 11/20 23:00 Order name: CT Abd/Pelvis - IV Contrast Only rn 11/20 23:14 Order name: Glucose, Ancillary Testing; Complete Time: 00:25 EDMS Administered Medications: 11/20 21:15 Drug: NS 0.9% 1000 ml Route: IV; Rate: 1 bolus; Site: right antecubital; ca1 22:12 Follow up: Response: No adverse reaction; IV Status: Completed infusion ca1 21:15 Drug: Tylenol 1000 mg Route: PO; ca1 22:12 Follow up: Response: No adverse reaction; Temperature is decreased ca1 23:05 Drug: LevaQUIN 500 mg Volume: 100 ml; Route: IVPB; Infused Over: 60 mins; Site: right ca1 antecubital; 23:15 Drug: NS 0.9% 1000 ml Route: IV; Rate: 1000 ml; Site: right antecubital; ca1 11/21 00:54 Drug: vancoMYCIN 1 grams Route: IVPB; Infused Over: 2 hrs; Site: right antecubital; bb 02:53 Follow up: IV Status: Completed infusion; IV Intake: 250ml bb Disposition: 20:36 Co-signature as Attending Physician, Brodie Zheng MD. rn Disposition: 11/21/18 00:33 Hospitalization ordered by Yohana Bustos for Inpatient Admission. Preliminary diagnosis are Urinary tract infection, site not specified, Proctitis, Cellulitis of buttock. - Bed requested for [facility] ER [facility]. - Status is Inpatient Admission. em - Condition is Stable. - Problem is new. - Symptoms have improved. UTI on Admission? Yes Signatures: Dispatcher [employer] [facility] Carly Lynn RN RN Florin Tsang PA PA Owen Ramos, LABORATORY SCIENTIST LABORATORY SCIENTIST em Elayne Chavez RN RN bb Nieto, Roman, MD MD rn Antunez, Elena, RN RN ea Acob, Cheryl, RN RN ca1 Corrections: (The following items were deleted from the chart) 02:01 00:33 Hospitalization Ordered by Yohana Bustos MD for Inpatient Admission. Preliminary mw diagnosis is Urinary tract infection, site not specified; Proctitis; Cellulitis of buttock. Bed requested for Telemetry/MedSurg (Inpatient). Status is Inpatient Admission. Condition is Stable. Problem is new. Symptoms have improved. UTI on Admission? Yes. rn 10:01 02:01 11/21/2018 00:33 Hospitalization Ordered by Yohana Bustos MD for Inpatient em Admission. Preliminary diagnosis is Urinary tract infection, site not specified; Proctitis; Cellulitis of buttock. Bed requested for [facility] ER HOLD. Status is Inpatient Admission. Condition is Stable. Problem is new. Symptoms have improved. UTI on Admission? Yes. mw
[2018-11-21] MEDS ORDERED: VANCOMYCIN 1 GM/VIAL ONE (00:45)
[2018-11-21] MEDS ORDERED: WATER FOR INJ,STERILE 10 ML ONE ×2 (00:45→00:48)
[2018-11-21] MEDS ORDERED: NA CHLORIDE 0.9% 250 ML ONE (00:45)
[2018-11-21] MEDS ORDERED: ACETAMINOPHEN 500 MG TAB PO PRN (00:52)
[2018-11-21] MEDS ORDERED: ONDANSETRON 4 MG/2 ML VIAL IV PRN (00:52)
[2018-11-21] MEDS: VANCOMYCIN/NS 1 gm 1 GM/250 ML BAG IVPB SCH ×2 (01:00→14:46)
[2018-11-21] MEDS ORDERED: NA CHLORIDE 0.9% 1,000 ML ONE ×2 (05:08→11:36)
[2018-11-21] MEDS: NA CHLORIDE 0.9% 1,000 ML IV SCH ×2 (05:10→13:02)
[2018-11-21] MEDS ORDERED: CLINDAMYCIN 600MG/D5W 0 MG/0 ML BAG IV ONE (05:31)
[2018-11-21] MEDS: CLINDAMYCIN INJ 600 MG in NA CHLORIDE 0.9% 50 ML IV SCH ×3 (07:00→17:23)
[2018-11-21] MEDS ORDERED: CLINDAMYCIN 600MG/D5W 600 MG/50 ML BAG IV ONE (07:15)
[2018-11-21] MEDS ORDERED: PROPOFOL 200 MG/20 ML VIAL IV ONE (10:28)
[2018-11-21] MEDS ORDERED: FENTANYL CITR 100 MCG/2 ML ONE (10:29)
[2018-11-21] MEDS ORDERED: MIDAZOLAM HCL 2 MG/2 ML INJ ONE (10:29)
[2018-11-21] MEDS ORDERED: LIDOCAINE 1% MPF 5 ML VIAL ONE (10:29)
[2018-11-21] MEDS ORDERED: ONDANSETRON 4 MG/2 ML VIAL ONE (10:30)
--- NOTE | 2018-11-21 10:30 | PREOPCON ---
Date of Consultation: 11/21/2018 Reason For Consultation: Fever, abdominal pain, rectal pain. Symptomology is somewhat muted because of his paralysis. History Of Present Illness: Patient is a 53-year-old gentleman who began having nonspecific pain and fever with body aches, headaches. He has had previous history of UTI . So, he came to [facility] emergency room. Workup revealed some perirectal thickening with air but no drainable fluid collect ions in the pelvis itself and I was asked to evaluate. He is awake and alert. No purulent discharge . No open wound that he has seen. reports foul odor under the area of the rectum region. Review of Systems: No sore throat, runny nose, cough, headaches, dizziness and no chest pain, otherwise unremarkable. Past Medical History: Stroke, chronic renal disease, paraplegia, migraines, hypothyroidism, hyperten abida, hydrocele in the left testicle, high cholesterol, diabetes type 1, ADD. Past Surgical History: Significant for spinal surgery. Allergies: INCLUDE METFORMIN AND IBUPROFEN. Social History: He denies smoking. Physical Examination: Vital Signs: Stable. His temperature was 99.6 at the time of admission. General: He is awake, alert, and oriented x3. Head and Neck: No masses. Chest: Clear. Heart: Normal S1, S2. Abdomen: Soft. Extremities: With paralysis on the lower part. Examination of the rectum reveals a left perirectal abscess with some necrotic tissue present and this in the left mid lateral position. There is some o may to it. There is surrounding area of induration and fluctuance. CT scan of the abdomen and pelvi s reviewed. White count is 12.8 with a left shift. Glucose is . Urinalysis shows trace es terase, 3+ ketones, 1+ blood. Nitrites are negative. Assessment: Left perirectal abscess. Plan: Admit n.p.o., IV fluid, IV antibiotic, to the OR for exam under anesthesia. Rigid proctoscopy and incision and drainage and debridement of left perirectal abscess. /MODL Voice ID: [id number] Report ID: [id number]
[2018-11-21] MEDS ORDERED: KETOROLAC 30 MG/ML INJ ONE (11:07)
--- NOTE | 2018-11-21 11:19 | P.OP ---
Preoperative diagnosis: Abscess and cellulitis Left perirectal Postoperative diagnosis: same, with [id number] Primary procedure: EUA, Rigid Procto, I and D and Debridement Left Lizbeth-Rectal Abscess Secondary procedure: Fistulotomy Anesthesia: gen Estimated blood loss: min Specimen: pus Findings: as above Complications: None Transferred to: Recovery Room Condition: Good
[2018-11-21] MEDS ORDERED: INSULIN -REGULAR HUMAN 50 UNIT/0.5 ML ML ONE (11:42)
[2018-11-21 15:35] VITALS: BMI 35.7
[2018-11-21] MEDS ORDERED: GLUCAGON 1 MG/VIAL IM PRN (17:05)
[2018-11-21] MEDS ORDERED: D50W 25 GM/50 ML SYRINGE IV PRN (17:05)
[2018-11-21] MEDS: MORPHINE 4 MG/ML SYR IV PRN ×2 (17:24→23:52)
[2018-11-21] MEDS: INSULIN -REGULAR HUMAN 50 UNIT/0.5 ML ML SQ SCH ×2 (17:46→21:33)
--- NOTE | 2018-11-21 20:51 | OP ---
Date of Procedure: 11/21/2018 Surgeon: Rolly Badillo MD Preoperative Diagnosis: Left perirectal abscess. Postoperative Diagnosis: Left perirectal abscess with [id number]. Procedure Performed: Exam under anesthesia, rigid proctoscopy, incision, drainage, and debridement o f left perirectal abscess and fistulotomy. Estimated Blood Loss: Minimal. Specimens: Pus. Findings: As above. Anesthesia: General. Complications: None. Disposition: The patient tolerated the procedure in stable condition, taken to Recovery in good gene ral condition. Description Of Procedure: Patient was brought to the OR and placed in supine position. General anes thesia was begun. Patient was prepped and draped in the usual sterile fashion in the lithotomy posit ion. Exam under anesthesia revealed some necrotic tissue left of the anus with some minimal fluctuan ce and induration and then at the posterior midline there was an opening and it appeared that the 2 w ere connected and this was confirmed with surgery. Rigid proctoscopy was performed. No other eviden ce of disease was identified. Then Marcaine 0.5% was infiltrated locally. Fifteen blade was to cut approximately a 4 x 2 cm area of the necrotic tissue. There was pus underneath. Cultures were done. There was necrotic tissue which was debrided. Wound irrigated, bleeding controlled with cautery an d the fistula was connected. New fistulotomy was done and then wet-to-dry normal saline dressing change applied. Patient tolerated the procedure in stable condition and taken to Recovery i n good general condition. /MODL Voice ID: [id number] Report ID: [id number]
[2018-11-21] MEDS: Levofloxacin500mg IV 500 MG/100 ML BAG IV SCH (23:04)
--- NOTE | 2018-11-21 23:55 | P.HP ---
Certification for Inpatient Patient admitted to: Inpatient With expected LOS: >2 Midnights Patient will require the following post-hospital care: None Practitioner: I am a practitioner with admitting privileges, knowledge of patient current condition, hospital course, and medical plan of care. Services: Services provided to patient in accordance with Admission requirements found in Title 42 Section 412.3 of the Code of Federal Regulations Patient History Date of Service: 11/21/18 Reason for admission: Perirectal abscess History of Present Illness: Patient is a 53-year-old gentleman who is been having fever, shakes, and chills. He has had prior episodes similar to this as he is a paraplegic and has frequent urinary tract infections. He has felt he may have another urinary tract infection. However, he has also been having some rectal pain. He states he had a large stool. He feels that he may have had an injury to his rectum. In the emergency room, his workup revealed a lesion in the perirectal area. This could be a perirectal abscess. Patient will be admitted to the hospital with dedicated CT imaging. General surgery consultation for possible perirectal abscess. Allergies metformin Adverse Reaction (Severe, Verified 11/21/18 13:27) Anaphylaxis ibuprofen Adverse Reaction (Verified 11/21/18 13:27) seecom adler peppers Allergy (Intermediate, Uncoded 11/21/18 13:27) Nausea/Vomiting stitches Adverse Reaction (Mild, Uncoded 11/21/18 13:27) Rash Home Medications: Colchicine 0.6 mg PO BID 11/21/18 Furosemide [Lasix] 20 mg PO DAILY 11/21/18 Insulin Aspart [Novolog Flexpen] 20 units SQ BID 11/21/18 Insulin Detemir [Levemir Flextouch] 36 units SQ BID 11/21/18 Levothyroxine [Synthroid*] 0.075 mcg PO DAILY 11/21/18 Lisinopril 40 mg PO DAILY 11/21/18 - Past Medical/Surgical History Has patient received pneumonia vaccine in the past: Yes Diabetic: Yes -: HTN -: gout -: gerd -: hypercholesterol -: spinal cord injury -: self cath -: hypothyroidism -: paraplegic -: GERD -: spinal surgery -: 2 hydroceles - Family History Mother Medical History: Hypertension, Diabetes, Stroke Notes: with gangrene leg - Social History Smoking Status: Former smoker Alcohol use: No CD- Drugs: No Caffeine use: Yes Place of Residence: Home Review of Systems 10-point ROS is otherwise unremarkable Physical Examination - Vital Signs Temperature: 98.0 F Blood Pressure: 151/90 Pulse: 95 Respirations: 18 Pulse Ox (%): 98 - Physical Exam General: Alert, In no apparent distress, Oriented x3 HEENT: Atraumatic, PERRLA, Mucous membr. moist/pink, EOMI, Sclerae nonicteric Neck: Supple, 2+ carotid pulse no bruit, No LAD, Without JVD or thyroid abnormality Respiratory: Clear to auscultation bilaterally, Normal air movement Cardiovascular: Regular rate/rhythm, Normal S1 S2 Gastrointestinal: Normal bowel sounds, Soft and benign, Non-distended, No tenderness, No rebound, No guarding Musculoskeletal: No clubbing, No swelling, No tenderness Integumentary: No rashes Neurological: Normal speech, Normal tone, Sensation intact, Cranial nerves 3-12 intact, Normal affect, Abnormal gait, Abnormal strength Lymphatics: No axilla or inguinal lymphadenopathy - Studies Microbiology Data (last 24 hrs): 11/20/18 21:12 Nasopharnyx Influenza Type A Antigen Screen - Final 11/20/18 21:12 Nasopharnyx Influenza Type B Antigen Screen - Final 11/20/18 21:12 Throat Group A Streptococcus Rapid Screen - Final Assessment & Plan - Problems (Diagnosis) (1) Catheter-associated urinary tract infection Current Visit: No Status: Acute Qualifiers: (2) Cellulitis of left foot Current Visit: No Status: Acute (3) Leukocytosis Onset Date: 05/05/14 Current Visit: No Status: Acute (4) Seizure Onset Date: 05/05/14 Current Visit: No Status: Acute (5) UTI (urinary tract infection) Onset Date: 10/13/16 Current Visit: No Status: Acute Qualifiers: (6) History of spinal cord injury Current Visit: No Status: Chronic (7) Hyperlipidemia Onset Date: 10/16/14 Current Visit: No Status: Chronic Qualifiers: (8) Hypertension Onset Date: 04/04/14 Current Visit: No Status: Chronic Qualifiers: (9) Fecal retention Current Visit: Yes Status: Acute (10) Proctitis Current Visit: Yes Status: Acute (11) Perirectal abscess Current Visit: Yes Status: Acute - Plan 1. Continue with IV hydration 2. Continue with IV antibiotics 3. Continue with pain control 4. NPO 5. General surgery consultation; outpatient colonoscopy in 6-12 weeks 6. Serial H&H, and we will monitor CBC, BMP, LFTs and lipase along with electrolytes. 7. GI and DVT prophylaxis Discharge Plan: Home - Advance Directives Does patient have a Living Will: No Does patient have a Durable POA for Healthcare: No - Code Status/Comfort Care Code Status Assessed: Yes Code Status: Full Code Physician Review Additional Text: 40 Critical Care: No
[2018-11-22] MEDS: CLINDAMYCIN INJ 600 MG in NA CHLORIDE 0.9% 50 ML IV SCH ×3 (00:45→17:54)
[2018-11-22] MEDS: VANCOMYCIN/NS 1 gm 1 GM/250 ML BAG IVPB SCH ×2 (00:47→13:39)
[2018-11-22] MEDS: NA CHLORIDE 0.9% 1,000 ML IV SCH ×2 (03:40→17:00)
[2018-11-22] MEDS: LEVOTHYROXINE SOD 0.075 MG TAB PO SCH (05:38)
[2018-11-22 06:11] LABS: Basophils % 0.4 % (0-1.3); Hematocrit 35.7 % (39.6-49.0); Lymphocytes % 10.8 % (15.3-44.8); MPV 10.8 fL (7.6-11.3); RBC Red Blood Cell Count 4.07 M/uL (4.33-5.43)
[2018-11-22] MEDS: LISINOPRIL 20 MG TAB PO SCH (08:46)
[2018-11-22] MEDS: FUROSEMIDE 20 MG TABLET PO SCH (08:47)
[2018-11-22] MEDS: COLCHICINE 0.6 MG TAB PO SCH ×2 (08:47→20:37)
[2018-11-22] MEDS: INSULIN -REGULAR HUMAN 50 UNIT/0.5 ML ML SQ SCH ×4 (08:47→22:20)
[2018-11-22] MEDS: INSULIN GLARGINE 100 UNITS/ML SQ SCH ×2 (08:47→20:37)
[2018-11-22] MEDS ORDERED: LEVOTHYROXINE SOD 0.075 MG TAB PO SCH (09:00)
[2018-11-22] MEDS ORDERED: INSULIN LISPRO 100 UNIT/1 ML SQ SCH (09:00)
[2018-11-22] MEDS: MORPHINE 4 MG/ML SYR IV PRN ×2 (10:06→20:37)
--- NOTE | 2018-11-22 11:56 | RAD REPORT ---
EXAM DESCRIPTION: CT Abdomen and Pelvis With Intravenous Contrast CLINICAL HISTORY: The patient is 53 years old and is Male; abd pain, rectal pain TECHNIQUE: Axial computed tomography images of the abdomen and pelvis with intravenous contrast. S agittal and coronal reformatted images were created and reviewed. This CT exam was performed using one or more of the following dose reduction techniques: automated exposure control, adjustment of t he mA and/or kV according to patient size, and/or use of iterative reconstruction technique. COMPARISON: No relevant prior studies available. FINDINGS: LUNG BASES: Unremarkable. No mass. No consolidation. ABDOMEN: LIVER: The liver is enlarged and diffusely fatty. GALLBLADDER AND BILE DUCTS: No calcified stones. No ductal dilation. PANCREAS: No ductal dilation. No mass. SPLEEN: The spleen is enlarged. ADRENALS: Unremarkable. No mass. KIDNEYS AND URETERS: Bilateral nonspecific perinephric stranding is present. The kidneys enhance symmetrically. No obstructing renal or ureteral calculus is seen. There is no hydronephrosis or hydr oureter of either kidney. STOMACH AND BOWEL: Rectal wall thickening is present. There is inflammatory stranding and puncta te foci of air along the left perirectal region. The stomach is decompressed. The small bowel is no rmal in caliber. A moderate amount stool is present throughout the colon. No evidence of bowel obstru ction. No significant bowel wall thickening. Colonic diverticulosis is noted, without associated infl ammatory changes to suggest diverticulitis. PELVIS: APPENDIX: The appendix is normal in caliber without surrounding inflammation. BLADDER: The bladder is decompressed with Valera catheter in place. REPRODUCTIVE: Unremarkable as visualized. ABDOMEN and PELVIS: INTRAPERITONEAL SPACE: Unremarkable. No free air. No significant fluid collection. BONES/JOINTS: No acute fracture. SOFT TISSUES: The soft tissues are normal. VASCULATURE: Unremarkable. No abdominal aortic aneurysm. LYMPH NODES: Unremarkable. No enlarged lymph nodes. IMPRESSION: 1. Rectal wall thickening is present. There is inflammatory stranding and punctate foc i of air along the left perirectal region. This is incompletely imaged. No fluid collection is note d at this time. 2. Colonic diverticulosis without evidence of diverticulitis. Electronically signed by: Mary Ann Rascon MD 11/21/2018 12:14 AM CDT Due to temporary technical issues with the PACS/Fluency reporting system, reports are being signed by the in house radiologist as a courtesy to ensure prompt reporting. The interpreting radiologist is f ully responsible for the content of the report.
--- NOTE | 2018-11-22 15:40 | PN ---
Date of Progress Note: 11/22/2018 Subjective: Patient is awake and alert. No complaint. Objective: Vital Signs: Stable. Afebrile. Extremities: His dressing is clean. Laboratory Data: Cultures reviewed. Sensitivities are pending. He has gram-negative rods in his ur ine and wound cultures pending as well. Assessment: Status post exam under anesthesia, rigid proctoscopy, incision and drainage, and debride ment of left perirectal abscess, and fistulotomy. Recommendations: Continue IV antibiotics. Wound care as ordered. Check the cultures. Probable dis charge tomorrow. /MODL Voice ID: [id number] Report ID: [id number]
--- NOTE | 2018-11-22 16:36 | P.PN ---
Subjective Date of Service: 11/22/18 Chief Complaint: Perirectal abscess Patient seen and examined at bedside with RN. Chart reviewed. Case discussed with general surgery at this time. No complaints to offer overnight. Sitting up and eating his breakfast this morning. No fever chills noted at night time. Currently awaiting culture results. Review of Systems 10-point ROS is otherwise unremarkable Physical Examination - Vital Signs Temperature: 98.3 F Blood Pressure: 137/79 Pulse: 94 Respirations: 18 Pulse Ox (%): 97 - Physical Exam General: Alert, In no apparent distress HEENT: Atraumatic, PERRLA, EOMI Neck: Supple, JVD not distended Respiratory: Clear to auscultation bilaterally, Normal air movement Cardiovascular: Regular rate/rhythm, Normal S1 S2 Gastrointestinal: Normal bowel sounds, No tenderness Musculoskeletal: Erythema, Other Integumentary: Tenderness/swelling, Erythema, Pressure ulcer Neurological: Normal speech, Normal tone, Normal affect Lymphatics: No axilla or inguinal lymphadenopathy - Studies Microbiology Data (last 24 hrs): 11/20/18 21:12 Throat Culture & Sensitivity - Final NORMAL UPPER RESPIRATORY AMELIA GROWN. Medications List Reviewed: Yes Assessment And Plan - Current Problems (Diagnosis) (1) Perirectal abscess Current Visit: Yes Status: Acute Plan: Patient with perirectal abscess on admission -general surgery consulted. Appreciated recommendations at this time -status post incision and drainage with general surgery -* wound cultures collected and blood cultures pending at this time -will await culture results -will continue with IV antibiotics till then (2) UTI (urinary tract infection) Onset Date: 10/13/16 Current Visit: No Status: Acute Plan: Urine analysis consistent with UTI -urine culture pending at this time -will continue with IV antibiotics and follow up with culture Qualifiers: Urinary tract infection type: acute cystitis Hematuria presence: without hematuria Qualified Code(s): N30.00 - Acute cystitis without hematuria (3) Seizure Onset Date: 05/05/14 Current Visit: No Status: Chronic Qualifiers: Convulsion type: unspecified Qualified Code(s): R56.9 - Unspecified convulsions (4) CKD (chronic kidney disease), stage III Onset Date: 04/04/14 Current Visit: No Status: Chronic (5) DM2 (diabetes mellitus, type 2) Onset Date: 11/25/16 Current Visit: No Status: Chronic Qualifiers: Diabetes mellitus jewelry sales associate insulin use: with half-way use Diabetes mellitus complication status: with hyperglycemia Qualified Code(s): E11.65 - Type 2 diabetes mellitus with hyperglycemia; Z79.4 - long term (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 (6) Gastroesophageal reflux disease Onset Date: 10/16/14 Current Visit: No Status: Chronic Qualifiers: Esophagitis presence: without esophagitis Qualified Code(s): K21.9 - Gastro -esophageal reflux disease without esophagitis (7) History of spinal cord injury Current Visit: No Status: Chronic (8) Hyperlipidemia Onset Date: 10/16/14 Current Visit: No Status: Chronic Qualifiers: (9) Hypertension Onset Date: 04/04/14 Current Visit: No Status: Chronic Qualifiers: (10) Paraplegia Onset Date: 04/04/14 Current Visit: No Status: Chronic Discharge Plan: Home Plan to discharge in: Greater than 2 days - Code Status/Comfort Care Code Status Assessed: Yes Critical Care: No
[2018-11-22] MEDS: INSULIN LISPRO 100 UNIT/1 ML SQ SCH (16:48)
[2018-11-22] MEDS: DOCUSATE NA 100 MG CAP PO SCH ×2 (17:54→20:37)
[2018-11-22] MEDS: Levofloxacin500mg IV 500 MG/100 ML BAG IV SCH (22:20)
[2018-11-23] MEDS: NA CHLORIDE 0.9% 1,000 ML IV SCH ×2 (01:08→06:09)
[2018-11-23] MEDS: CLINDAMYCIN INJ 600 MG in NA CHLORIDE 0.9% 50 ML IV SCH ×2 (01:08→08:38)
[2018-11-23] MEDS: VANCOMYCIN/NS 1 gm 1 GM/250 ML BAG IVPB SCH (01:09)
[2018-11-23 02:54] VITALS: O2SAT 97
[2018-11-23] MEDS: MORPHINE 4 MG/ML SYR IV PRN (05:43)
[2018-11-23] MEDS: LEVOTHYROXINE SOD 0.075 MG TAB PO SCH (06:00)
[2018-11-23] MEDS: DOCUSATE NA 100 MG CAP PO SCH (08:38)
[2018-11-23] MEDS: LISINOPRIL 20 MG TAB PO SCH (08:38)
[2018-11-23] MEDS: FUROSEMIDE 20 MG TABLET PO SCH (08:38)
[2018-11-23] MEDS: COLCHICINE 0.6 MG TAB PO SCH (08:38)
[2018-11-23] MEDS: INSULIN LISPRO 100 UNIT/1 ML SQ SCH (08:39)
[2018-11-23] MEDS: INSULIN -REGULAR HUMAN 50 UNIT/0.5 ML ML SQ SCH (08:39)
[2018-11-23] MEDS: INSULIN GLARGINE 100 UNITS/ML SQ SCH (08:41)
[2018-11-23 13:56] VITALS: BP 155/91; TEMP 98
--- NOTE | 2018-11-23 14:35 | PN ---
Date of Progress Note: 11/23/2018 Subjective: Patient is awake alert, no complaint. Objective: Vital Signs: Stable. Afebrile. Laboratory Data: Cultures reviewed. Gram-negative rods sensitive to Levaquin. Dressing clean, dry and intact. Assessment: Status post I and D and debridement, perirectal abscess and fistulotomy. Recommendations: Cleared for discharge on Levaquin. Wound Care has ordered follow up in the [facility] in 2 weeks. /MODL Voice ID: [id number] Report ID: [id number]
--- NOTE | 2018-11-23 17:02 | P.DS ---
Admission Date: 11/21/18 Discharge Date: 11/23/18 Disposition: ROUTINE DISCHARGE Discharge Condition: GOOD Reason for Admission: Perirectal abscess Consultations: Surgery - Problems (1) Perirectal abscess Status: Acute (2) UTI (urinary tract infection) Onset Date: 10/13/16 Status: Acute Qualifiers: Urinary tract infection type: acute cystitis Hematuria presence: without hematuria Qualified Code(s): N30.00 - Acute cystitis without hematuria (3) Seizure Onset Date: 05/05/14 Status: Chronic Qualifiers: Convulsion type: unspecified Qualified Code(s): R56.9 - Unspecified convulsions (4) CKD (chronic kidney disease), stage III Onset Date: 04/04/14 Status: Chronic (5) DM2 (diabetes mellitus, type 2) Onset Date: 11/25/16 Status: Chronic Qualifiers: Diabetes mellitus environmental analyst insulin use: with environmental analyst use Diabetes mellitus complication status: with hyperglycemia Qualified Code(s): E11.65 - Type 2 diabetes mellitus with hyperglycemia; Z79.4 - correction (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 (6) Gastroesophageal reflux disease Onset Date: 10/16/14 Status: Chronic Qualifiers: Esophagitis presence: without esophagitis Qualified Code(s): K21.9 - Gastro -esophageal reflux disease without esophagitis (7) History of spinal cord injury Status: Chronic (8) Hyperlipidemia Onset Date: 10/16/14 Status: Chronic Qualifiers: (9) Hypertension Onset Date: 04/04/14 Status: Chronic Qualifiers: (10) Paraplegia Onset Date: 04/04/14 Status: Chronic Brief History of Present Illness: Patient is a 53-year-old gentleman who is been having fever, shakes, and chills. He has had prior episodes similar to this as he is a paraplegic and has frequent urinary tract infections. He has felt he may have another urinary tract infection. However, he has also been having some rectal pain. He states he had a large stool. He feels that he may have had an injury to his rectum. In the emergency room, his workup revealed a lesion in the perirectal area. This could be a perirectal abscess. Patient will be admitted to the hospital with dedicated CT imaging. General surgery consultation for possible perirectal abscess. Hospital Course: Overall during the hospital stay patient remained stable Patient was initially admitted to the hospital for perirectal abscess. General surgery was consulted. Patient was taken to the OR for an incision and drainage. Patient was kept on IV antibiotics here in the hospital. Patient was also found to have urinary tract infection while here in the hospital. Urine cultures were positive for Serratia which was sensitive to Levaquin. Wound culture was also positive for Gram negative rods. Surgery at that time recommended the patient to be discharged home on Levaquin which he is sensitive to and thus patient was educated on taking Levaquin for next 14 days. Patient demonstrate understanding and thus was discharged home under stable condition. Patient was to do wet-to-dry dressing for his for a rectal abscess. And was to follow up with in his office about 2 weeks post discharge. Vital Signs/Physical Exam: Temp Pulse Resp BP Pulse Ox 98 F 76 18 155/91 H 96 11/23/18 12:00 11/23/18 12:00 11/23/18 12:00 11/23/18 12:00 11/23/18 12:00 General: Alert, In no apparent distress HEENT: Atraumatic, PERRLA, EOMI Neck: Supple, JVD not distended Respiratory: Clear to auscultation bilaterally, Normal air movement Cardiovascular: Regular rate/rhythm, Normal S1 S2 Gastrointestinal: Normal bowel sounds, No tenderness Musculoskeletal: No tenderness Integumentary: No rashes Neurological: Normal speech, Normal tone, Normal affect Lymphatics: No axilla or inguinal lymphadenopathy Laboratory Data at Discharge: WBC 8.9 K/uL (4.3-10.9) D 11/22/18 05:10 Hgb 12.7 g/dL (13.6-17.9) L 11/22/18 05:10 Hct 35.7 % (39.6-49.0) L D 11/22/18 05:10 Plt Count 164 K/uL (152-406) 11/22/18 05:10 Sodium 130 mmol/L (136-145) L 11/20/18 21:12 Potassium 4.7 mmol/L (3.5-5.1) 11/20/18 21:12 BUN 36 mg/dL (7-18) H 11/20/18 21:12 Creatinine 1.49 mg/dL (0.55-1.3) H 11/20/18 21:12 Glucose 410 mg/dL (74-106) H* 11/20/18 21:12 Total Bilirubin 0.6 mg/dL (0.2-1.0) 11/20/18 21:12 AST 12 U/L (15-37) L 11/20/18 21:12 ALT 29 U/L (12-78) 11/20/18 21:12 Alkaline Phosphatase 129 U/L (45-117) H 11/20/18 21:12 Home Medications: Colchicine 0.6 mg PO BID 11/21/18 Furosemide [Lasix] 20 mg PO DAILY 11/21/18 Insulin Aspart [Novolog Flexpen] 20 units SQ BID 11/21/18 Insulin Detemir [Levemir Flextouch] 36 units SQ BID 11/21/18 Levothyroxine [Synthroid*] 0.075 mcg PO DAILY 11/21/18 Lisinopril 40 mg PO DAILY 11/21/18 levoFLOXacin [Levaquin] 500 mg PO DAILY #14 tab 11/23/18 New Medications: levoFLOXacin [Levaquin] 500 mg PO DAILY #14 tab Patient Discharge Instructions: w to d ns daily Diet: Regular Activity: Ad tadeo Followup: Rolly Badillo MD [ACTIVE - CAN ADMIT] - 1-2 Weeks ([facility] in my clinic)
== END 2018-11-23 12:51 | disposition home or self-care (01) | DRG 345 ==
LOC: ER 20:24 → ERHOLD 11-21 01:13 → 2ND 11-21 12:19
PROVIDERS: ADMIT Hospitalist; ATTEND Hospitalist
PROC: 0D9Q8ZZ Drainage of Anus, Via Natural or Artificial Opening Endoscopic (ICD-10-PCS; 2018-11-21)
PROC: 0D9P8ZZ Drainage of Rectum, Via Natural or Artificial Opening Endoscopic (ICD-10-PCS; 2018-11-21)
PROC: 0D9P0ZX Drainage of Rectum, Open Approach, Diagnostic (ICD-10-PCS; principal; 2018-11-21 10:00)
DX: K61.1 Rectal abscess (principal); N30.00 Acute cystitis without hematuria; G82.20 Paraplegia, unspecified; B96.89 Other specified bacterial agents as the cause of diseases classified elsewhere; R56.9 Unspecified convulsions; I12.9 Hypertensive chronic kidney disease with stage 1 through stage 4 chronic kidney disease, or unspecified chronic kidney disease; E11.22 Type 2 diabetes mellitus with diabetic chronic kidney disease; E11.65 Type 2 diabetes mellitus with hyperglycemia; N18.3 Chronic kidney disease, stage 3 (moderate); Z79.4 Long term (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; K21.9 Gastro-esophageal reflux disease without esophagitis; E78.5 Hyperlipidemia, unspecified; Z87.828 Personal history of other (healed) physical injury and trauma; E03.9 Hypothyroidism, unspecified
CPT/HCPCS: 36415; 74177; 80053; 80202; 81003; 81015; 82962; 83605; 84145; 85025; 87040; 87070; 87077; 87081; 87086; 87088; 87186; 87205; 87804; 88304; 96361; 96365; 96366; 96375; 99285; J2250; J2405; J2704; J3010; J3370; J7030; Q9967

== ENCOUNTER 2019-01-24 12:45 | Observation (INO) | payer OTHER ==
--- OUTSIDE RECORDS SUMMARY | 2019-01-24 12:49 | XMS REPORT ---
:1965 Author Organization [facility] Address [address] [place] [address] Care Team Providers Name Role Phone FAITH GOMEZ Unavailable Unavailable Problems This patient has no known problems. Allergies, Adverse Reactions, Alerts This patient has no known allergies or adverse reactions. Medications This patient has no known medications. Results Test Description Test Time Test Comments Text Results Atomic Results Result Comments BLOOD CULTURE 2016-07-07 14:28:00 Test Item Value Reference Range Comments CULTURE (BEAKER) (test zdlu=0589) No growth in 5 days POCT-GLUCOSE [id number] 12:04:00 Test Item Value Reference Range Comments POC-GLUCOSE METER (BEAKER) 179 mg/dL 70-110 TESTED AT [facility] [address] [facility] (test jcrj=6426) [facility] [address] BASIC METABOLIC [id number] 09:51:00 Test Item Value Reference Range Comments SODIUM (BEAKER) (test 137 meq/L 136-145 ahyb=082) POTASSIUM (BEAKER) (test 3.7 meq/L 3.5-5.1 lzej=851) CHLORIDE (BEAKER) (test 102 meq/L 98-107 ceha=530) CO2 (BEAKER) (test 25 meq/L 22-29 vklx=932) BLOOD UREA NITROGEN 17 mg/dL 7-21 (BEAKER) (test oace=901) CREATININE (BEAKER) (test 1.04 mg/dL 0.57-1.25 qqkl=663) GLUCOSE RANDOM (BEAKER) 195 mg/dL 70-105 (test gska=610) CALCIUM (BEAKER) (test 9.2 mg/dL 8.4-10.2 emol=899) EGFR (BEAKER) (test 76 mL/min/1.73 sq m ESTIMATED GFR IS NOT hpjq=4577) ACCURATE CREATININE CLEARANCE IN PREDICTING GLOMERULAR FILTRATION RATE. ESTIMATED GFR IS NOT APPLICABLE FOR DIALYSIS PATIENTS. CBC W/PLT COUNT & AUTO [id number] 09:20:00 Test Item Value Reference Range Comments WHITE BLOOD CELL COUNT (BEAKER) (test pxcg=948) 6.1 K/ L 4.0-10.0 RED BLOOD CELL COUNT (BEAKER) (test cfmt=643) 4.63 M/ L 4.20-5.80 HEMOGLOBIN (BEAKER) (test cejs=043) 13.7 GM/DL 13.0-16.8 HEMATOCRIT (BEAKER) (test rxxj=756) 39.8 % 40.0-50.0 MEAN CORPUSCULAR VOLUME (BEAKER) (test lnfi=823) 85.9 fL 82.0-98.0 MEAN CORPUSCULAR HEMOGLOBIN (BEAKER) (test 29.6 pg 27.0-33.0 kiec=568) MEAN CORPUSCULAR HEMOGLOBIN CONC (BEAKER) (test 34.5 GM/DL 32.0-36.0 ilpw=401) RED CELL DISTRIBUTION WIDTH (BEAKER) (test 14.8 % 10.3-14.2 ygpi=964) PLATELET COUNT (BEAKER) (test iatv=536) 143 K/CU MM 150-430 MEAN PLATELET VOLUME (BEAKER) (test ftop=593) 8.6 fL 6.5-10.5 NUCLEATED RED BLOOD CELLS (BEAKER) (test 0 /100 WBC 0-0 fpnt=021) NEUTROPHILS RELATIVE PERCENT (BEAKER) (test 71 % btjc=146) LYMPHOCYTES RELATIVE PERCENT (BEAKER) (test 20 % qser=364) MONOCYTES RELATIVE PERCENT (BEAKER) (test 5 % xslb=278) EOSINOPHILS RELATIVE PERCENT (BEAKER) (test 3 % tsfh=138) BASOPHILS RELATIVE PERCENT (BEAKER) (test 1 % dvce=406) NEUTROPHILS ABSOLUTE COUNT (BEAKER) (test 4.31 K/ L 1.80-8.00 jcke=661) LYMPHOCYTES ABSOLUTE COUNT (BEAKER) (test 1.23 K/ L 1.48-4.50 tqez=650) MONOCYTES ABSOLUTE COUNT (BEAKER) (test 0.28 K/ L 0.00-1.30 mkvf=011) EOSINOPHILS ABSOLUTE COUNT (BEAKER) (test 0.21 K/ L 0.00-0.50 ljqv=072) BASOPHILS ABSOLUTE COUNT (BEAKER) (test 0.03 K/ L 0.00-0.20 arao=128) 0.00POCT-GLUCOSE [id number] 07:15:00 Test Item Value Reference Range Comments POC-GLUCOSE METER (BEAKER) 246 mg/dL 70-110 TESTED AT [address] (test pfkt=2737) [place] [address] POCT-GLUCOSE [id number] 21:12:00 Test Item Value Reference Range Comments POC-GLUCOSE METER (BEAKER) 89 mg/dL 70-110 TESTED AT [address] (test mhsg=8289) [place] [id number] POCT-GLUCOSE [id number] 17:12:00 Test Item Value Reference Range Comments POC-GLUCOSE METER (BEAKER) 217 mg/dL 70-110 TESTED AT [address] (test idcl=5283) [place] [address] URINE [id number] 12:07:00 Test Item Value Reference Range Comments CULTURE (AKER) (test fuel=6521) <10,000 col/mL skin candi POCT-GLUCOSE [id number] 11:30:00 Test Item Value Reference Range Comments POC-GLUCOSE METER (BEAKER) 205 mg/dL 70-110 TESTED AT [address] (test qnoy=2505) [place] [id number] POCT-GLUCOSE [id number] 07:36:00 Test Item Value Reference Range Comments POC-GLUCOSE METER (BEAKER) 195 mg/dL 70-110 TESTED AT [address] (test oicr=3052) [place] [address] CBC W/PLT COUNT & AUTO [id number] 05:14:00 Test Item Value Reference Range Comments WHITE BLOOD CELL COUNT (BEAKER) (test ptup=501) 6.7 K/ L 4.0-10.0 RED BLOOD CELL COUNT (BEAKER) (test glew=184) 4.40 M/ L 4.20-5.80 HEMOGLOBIN (BEAKER) (test ched=199) 13.3 GM/DL 13.0-16.8 HEMATOCRIT (BEAKER) (test blyq=773) 38.2 % 40.0-50.0 MEAN CORPUSCULAR VOLUME (BEAKER) (test vfaq=970) 86.8 fL 82.0-98.0 MEAN CORPUSCULAR HEMOGLOBIN (BEAKER) (test 30.1 pg 27.0-33.0 idox=298) MEAN CORPUSCULAR HEMOGLOBIN CONC (BEAKER) (test 34.7 GM/DL 32.0-36.0 xbah=035) RED CELL DISTRIBUTION WIDTH (BEAKER) (test 14.7 % 10.3-14.2 zclz=692) PLATELET COUNT (BEAKER) (test buox=382) 144 K/CU MM 150-430 MEAN PLATELET VOLUME (BEAKER) (test edfw=047) 9.0 fL 6.5-10.5 NUCLEATED RED BLOOD CELLS (BEAKER) (test 0 /100 WBC 0-0 ioxn=914) NEUTROPHILS RELATIVE PERCENT (BEAKER) (test 67 % rhjw=506) LYMPHOCYTES RELATIVE PERCENT (BEAKER) (test 25 % quyo=999) MONOCYTES RELATIVE PERCENT (BEAKER) (test 5 % okfm=260) EOSINOPHILS RELATIVE PERCENT (BEAKER) (test 2 % aqhu=163) BASOPHILS RELATIVE PERCENT (BEAKER) (test 0 % mwaf=414) NEUTROPHILS ABSOLUTE COUNT (BEAKER) (test 4.52 K/ L 1.80-8.00 gnuq=191) LYMPHOCYTES ABSOLUTE COUNT (BEAKER) (test 1.70 K/ L 1.48-4.50 twsq=633) MONOCYTES ABSOLUTE COUNT (BEAKER) (test 0.32 K/ L 0.00-1.30 svmf=121) EOSINOPHILS ABSOLUTE COUNT (BEAKER) (test 0.16 K/ L 0.00-0.50 mite=343) BASOPHILS ABSOLUTE COUNT (BEAKER) (test 0.03 K/ L 0.00-0.20 mafu=530) 0[facility]00[facility] [id number] 05:14:00 Test Item Value Reference Range Comments SODIUM (BEAKER) (test 134 meq/L 136-145 jbcj=520) POTASSIUM (BEAKER) (test 4.2 meq/L 3.5-5.1 iggy=998) CHLORIDE (BEAKER) (test 101 meq/L 98-107 cnay=902) CO2 (BEAKER) (test 24 meq/L 22-29 yonn=021) BLOOD UREA NITROGEN 20 mg/dL 7-21 (BEAKER) (test anid=575) CREATININE (BEAKER) (test 1.16 mg/dL 0.57-1.25 trld=403) GLUCOSE RANDOM (BEAKER) 216 mg/dL 70-105 (test vfva=044) CALCIUM (BEAKER) (test 8.8 mg/dL 8.4-10.2 ynkh=210) EGFR (BEAKER) (test 67 mL/min/1.73 sq m ESTIMATED GFR IS NOT ebnt=3545) ACCURATE CREATININE CLEARANCE IN PREDICTING GLOMERULAR FILTRATION RATE. ESTIMATED GFR IS NOT APPLICABLE FOR DIALYSIS PATIENTS. POCT-GLUCOSE [id number] 21:04:00 Test Item Value Reference Range Comments POC-GLUCOSE METER (BEAKER) 178 mg/dL 70-110 TESTED AT [address] (test ctjg=0862) [place] [id number] POCT-GLUCOSE [id number] 17:07:00 Test Item Value Reference Range Comments POC-GLUCOSE METER (BEAKER) 88 mg/dL 70-110 TESTED AT [address] (test ogsn=0286) [place] [id number] POCT-GLUCOSE [id number] 12:30:00 Test Item Value Reference Range Comments POC-GLUCOSE METER (BEAKER) 107 mg/dL 70-110 TESTED AT [address] (test nipz=7918) [facility] [address] POCT-GLUCOSE [id number] 07:46:00 Test Item Value Reference Range Comments POC-GLUCOSE METER (BEAKER) 169 mg/dL 70-110 TESTED AT [address] (test oxer=2186) [facility] [address] CBC W/PLT COUNT & AUTO [id number] 07:42:00 Test Item Value Reference Range Comments WHITE BLOOD CELL COUNT (BEAKER) (test ipnn=490) 6.5 K/ L 4.0-10.0 RED BLOOD CELL COUNT (BEAKER) (test gxlk=518) 4.57 M/ L 4.20-5.80 HEMOGLOBIN (BEAKER) (test qcyu=031) 13.4 GM/DL 13.0-16.8 HEMATOCRIT (BEAKER) (test omui=246) 40.4 % 40.0-50.0 MEAN CORPUSCULAR VOLUME (BEAKER) (test efnk=004) 88.3 fL 82.0-98.0 MEAN CORPUSCULAR HEMOGLOBIN (BEAKER) (test 29.3 pg 27.0-33.0 xorz=437) MEAN CORPUSCULAR HEMOGLOBIN CONC (BEAKER) (test 33.2 GM/DL 32.0-36.0 jynt=067) RED CELL DISTRIBUTION WIDTH (BEAKER) (test 13.8 % 10.3-14.2 sgdm=081) PLATELET COUNT (BEAKER) (test fint=735) 150 K/CU MM 150-430 MEAN PLATELET VOLUME (BEAKER) (test kxxy=620) 9.0 fL 6.5-10.5 NUCLEATED RED BLOOD CELLS (BEAKER) (test 0 /100 WBC 0-0 nnos=747) NEUTROPHILS RELATIVE PERCENT (BEAKER) (test 64 % gfpe=263) LYMPHOCYTES RELATIVE PERCENT (BEAKER) (test 26 % iluh=747) MONOCYTES RELATIVE PERCENT (BEAKER) (test 7 % lpov=016) EOSINOPHILS RELATIVE PERCENT (BEAKER) (test 3 % rixg=605) BASOPHILS RELATIVE PERCENT (BEAKER) (test 0 % vdcn=541) NEUTROPHILS ABSOLUTE COUNT (BEAKER) (test 4.13 K/ L 1.80-8.00 nfqx=958) LYMPHOCYTES ABSOLUTE COUNT (BEAKER) (test 1.66 K/ L 1.48-4.50 ryyo=687) MONOCYTES ABSOLUTE COUNT (BEAKER) (test 0.44 K/ L 0.00-1.30 dayz=818) EOSINOPHILS ABSOLUTE COUNT (BEAKER) (test 0.21 K/ L 0.00-0.50 grnc=471) BASOPHILS ABSOLUTE COUNT (BEAKER) (test 0.03 K/ L 0.00-0.20 qklh=915) 0.00BASI METABOLIC [id number] 06:13:00 Test Item Value Reference Range Comments SODIUM (BEAKER) (test 136 meq/L 136-145 itcn=900) POTASSIUM (BEAKER) (test 3.6 meq/L 3.5-5.1 ijqf=711) CHLORIDE (BEAKER) (test 101 meq/L 98-107 tdgs=126) CO2 (BEAKER) (test 25 meq/L 22-29 uccd=793) BLOOD UREA NITROGEN 18 mg/dL 7-21 (BEAKER) (test hlbi=463) CREATININE (BEAKER) (test 1.07 mg/dL 0.57-1.25 hgyg=197) GLUCOSE RANDOM (BEAKER) 188 mg/dL 70-105 (test uqun=181) CALCIUM (BEAKER) (test 8.8 mg/dL 8.4-10.2 gisd=395) EGFR (BEAKER) (test 73 mL/min/1.73 sq m ESTIMATED GFR IS NOT nlzm=1159) ACCURATE CREATININE CLEARANCE IN PREDICTING GLOMERULAR FILTRATION RATE. ESTIMATED GFR IS NOT APPLICABLE FOR DIALYSIS PATIENTS. POCT-GLUCOSE [id number] 22:12:00 Test Item Value Reference Range Comments POC-GLUCOSE METER (BEAKER) 238 mg/dL 70-110 TESTED AT [address] (test qseh=9871) [place] [id number] POCT-GLUCOSE [id number] 17:25:00 Test Item Value Reference Range Comments POC-GLUCOSE METER (BEAKER) 102 mg/dL 70-110 TESTED AT [address] (test trsb=6110) [place] [address] URINALYSIS W/ [id number] 12:50:00 Test Item Value Reference Range Comments COLOR (BEAKER) (test xofn=236) Colorless CLARITY (BEAKER) (test oouq=617) Clear SPECIFIC GRAVITY UA (BEAKER) (test hxpb=033) 1.002 1.001-1.035 PH UA (BEAKER) (test kede=440) 6.5 5.0-8.0 PROTEIN UA (BEAKER) (test gggw=826) Negative Negative GLUCOSE UA (BEAKER) (test bugo=187) Negative Negative KETONES UA (BEAKER) (test inec=190) Negative Negative BILIRUBIN UA (BEAKER) (test blvp=795) Negative Negative BLOOD UA (BEAKER) (test ckxa=938) Negative Negative NITRITE UA (BEAKER) (test aizo=053) Negative Negative LEUKOCYTE ESTERASE UA (BEAKER) (test kfan=459) Negative Negative UROBILINOGEN UA (BEAKER) (test rrgj=835) 0.2 mg/dL 0.2-1.0 RBC UA (BEAKER) (test npad=007) 0 /HPF WBC UA (BEAKER) (test wjox=709) < /HPF SOURCE(BEAKER) (test napn=6694) POCT-GLUCOSE [id number] 12:04:00 Test Item Value Reference Range Comments POC-GLUCOSE METER (BEAKER) 226 mg/dL 70-110 TESTED AT [place] [address] [facility] (test xxyr=3910) [facility] [address] POCT-GLUCOSE [id number] 08:00:00 Test Item Value Reference Range Comments POC-GLUCOSE METER (BEAKER) 300 mg/dL 70-110 TESTED AT [facility] [address] [facility] (test masw=0684) [facility] [address] BASIC METABOLIC [id number] 06:50:00 Test Item Value Reference Range Comments SODIUM (BEAKER) (test 134 meq/L 136-145 broo=728) POTASSIUM (BEAKER) (test 4.0 meq/L 3.5-5.1 hvjc=106) CHLORIDE (BEAKER) (test 98 meq/L 98-107 ejza=848) CO2 (BEAKER) (test 26 meq/L 22-29 msyo=684) BLOOD UREA NITROGEN 18 mg/dL 7-21 (BEAKER) (test xtay=260) CREATININE (BEAKER) (test 1.25 mg/dL 0.57-1.25 ehie=153) GLUCOSE RANDOM (BEAKER) 349 mg/dL 70-105 (test zgnw=099) CALCIUM (BEAKER) (test 8.9 mg/dL 8.4-10.2 whap=280) EGFR (BEAKER) (test 61 mL/min/1.73 sq m ESTIMATED GFR IS NOT nvqo=1122) ACCURATE CREATININE CLEARANCE IN PREDICTING GLOMERULAR FILTRATION RATE. ESTIMATED GFR IS NOT APPLICABLE FOR DIALYSIS PATIENTS. CBC W/PLT COUNT & AUTO [id number] 06:01:00 Test Item Value Reference Range Comments WHITE BLOOD CELL COUNT (BEAKER) (test bwoh=256) 6.6 K/ L 4.0-10.0 RED BLOOD CELL COUNT (BEAKER) (test snic=656) 4.79 M/ L 4.20-5.80 HEMOGLOBIN (BEAKER) (test gzim=895) 14.1 GM/DL 13.0-16.8 HEMATOCRIT (BEAKER) (test ycan=977) 42.0 % 40.0-50.0 MEAN CORPUSCULAR VOLUME (BEAKER) (test bdtu=104) 87.7 fL 82.0-98.0 MEAN CORPUSCULAR HEMOGLOBIN (BEAKER) (test 29.5 pg 27.0-33.0 dozf=683) MEAN CORPUSCULAR HEMOGLOBIN CONC (BEAKER) (test 33.6 GM/DL 32.0-36.0 ebsm=017) RED CELL DISTRIBUTION WIDTH (BEAKER) (test 14.9 % 10.3-14.2 dfzj=846) PLATELET COUNT (BEAKER) (test xtsf=747) 157 K/CU MM 150-430 MEAN PLATELET VOLUME (BEAKER) (test ahkv=286) 9.0 fL 6.5-10.5 NUCLEATED RED BLOOD CELLS (BEAKER) (test 0 /100 WBC 0-0 hggy=178) NEUTROPHILS RELATIVE PERCENT (BEAKER) (test 67 % rfgd=176) LYMPHOCYTES RELATIVE PERCENT (BEAKER) (test 23 % koys=518) MONOCYTES RELATIVE PERCENT (BEAKER) (test 7 % cbgc=062) EOSINOPHILS RELATIVE PERCENT (BEAKER) (test 3 % lmyw=651) BASOPHILS RELATIVE PERCENT (BEAKER) (test 0 % aviy=254) NEUTROPHILS ABSOLUTE COUNT (BEAKER) (test 4.44 K/ L 1.80-8.00 nadz=066) LYMPHOCYTES ABSOLUTE COUNT (BEAKER) (test 1.51 K/ L 1.48-4.50 seah=665) MONOCYTES ABSOLUTE COUNT (BEAKER) (test 0.43 K/ L 0.00-1.30 dctz=430) EOSINOPHILS ABSOLUTE COUNT (BEAKER) (test 0.21 K/ L 0.00-0.50 pztk=465) BASOPHILS ABSOLUTE COUNT (BEAKER) (test 0.03 K/ L 0.00-0.20 ulio=430) 0.00POCT-GLUCOSE [id number] 21:25:00 Test Item Value Reference Range Comments POC-GLUCOSE METER (BEAKER) 279 mg/dL 70-110 TESTED AT [address] (test bqdt=9389) [facility] [address] HEMOGLOBIN [id number] 21:13:00 Test Item Value Reference Range Comments HEMOGLOBIN A1C (BEAKER) (test asgc=244) 10.7 % 4.3-6.1 CBC W/PLT COUNT & AUTO [id number] 20:47:00 Test Item Value Reference Range Comments WHITE BLOOD CELL COUNT (BEAKER) (test apdk=492) 7.3 K/ L 4.0-10.0 RED BLOOD CELL COUNT (BEAKER) (test xlcl=384) 5.25 M/ L 4.20-5.80 HEMOGLOBIN (BEAKER) (test uwgb=473) 15.7 GM/DL 13.0-16.8 HEMATOCRIT (BEAKER) (test waog=670) 46.0 % 40.0-50.0 MEAN CORPUSCULAR VOLUME (BEAKER) (test vroh=107) 87.7 fL 82.0-98.0 MEAN CORPUSCULAR HEMOGLOBIN (BEAKER) (test 30.0 pg 27.0-33.0 mvrm=330) MEAN CORPUSCULAR HEMOGLOBIN CONC (BEAKER) (test 34.2 GM/DL 32.0-36.0 zvus=133) RED CELL DISTRIBUTION WIDTH (BEAKER) (test 13.8 % 10.3-14.2 cdfj=868) PLATELET COUNT (BEAKER) (test kebd=266) 166 K/CU MM 150-430 MEAN PLATELET VOLUME (BEAKER) (test gllv=155) 8.3 fL 6.5-10.5 NUCLEATED RED BLOOD CELLS (BEAKER) (test 0 /100 WBC 0-0 yakv=257) NEUTROPHILS RELATIVE PERCENT (BEAKER) (test 69 % soue=763) LYMPHOCYTES RELATIVE PERCENT (BEAKER) (test 22 % lpod=452) MONOCYTES RELATIVE PERCENT (BEAKER) (test 5 % hpkm=520) EOSINOPHILS RELATIVE PERCENT (BEAKER) (test 3 % rbwg=265) BASOPHILS RELATIVE PERCENT (BEAKER) (test 0 % sgog=412) NEUTROPHILS ABSOLUTE COUNT (BEAKER) (test 5.04 K/ L 1.80-8.00 nfom=128) LYMPHOCYTES ABSOLUTE COUNT (BEAKER) (test 1.63 K/ L 1.48-4.50 yuxs=230) MONOCYTES ABSOLUTE COUNT (BEAKER) (test 0.40 K/ L 0.00-1.30 vejn=820) EOSINOPHILS ABSOLUTE COUNT (BEAKER) (test 0.22 K/ L 0.00-0.50 oqhp=579) BASOPHILS ABSOLUTE COUNT (BEAKER) (test 0.01 K/ L 0.00-0.20 poie=147) 0.00POCT-GLUCOSE [id number] 18:31:00 Test Item Value Reference Range Comments POC-GLUCOSE METER (BEAKER) 205 mg/dL 70-110 TESTED AT [facility] [address] [facility] (test umbv=[id number]) [facility] [id number]
[2019-01-24 13:51] LABS: Absolute Lymphocytes (CBC) 1.5 K/uL (0.7-4.9); Hematocrit 44.3 % (39.6-49.0); Lymphocytes % 29.3 % (15.3-44.8); MPV 10.9 fL (7.6-11.3); RBC Red Blood Cell Count 5.04 M/uL (4.33-5.43)
[2019-01-24 13:57] LABS: Protime INR 0.94
[2019-01-24 14:28] LABS: ALT/SGPT 62 U/L (12-78); AST/SGOT 34 U/L (15-37); Albumin 3.5 g/dL (3.4-5.0); Alkaline Phosphatase 146 U/L (45-117); BUN Blood Urea Nitrogen 35 mg/dL (7-18); Bicarbonate 27 mmol/L (21-32); Bilirubin Total 0.6 mg/dL (0.2-1.0); Magnesium 1.9 mg/dL (1.8-2.4); NT PRO-BNP 20 pg/mL (<125); Potassium 4.1 mmol/L (3.5-5.1); Protein, Total 7.3 g/dL (6.4-8.2); Sodium Level 135 mmol/L (136-145); Troponin (Emerg Dept Use Only) < 0.02 ng/mL (0.0-0.045)
[2019-01-24 14:42] LABS: Glucose Level 432 mg/dL (74-106)
--- NOTE | 2019-01-24 15:08 | EKG ---
Test Date: 2019-01-24 Test Time: 12:58:57 Polymerization Supervisor: MARKEL MEASUREMENT RESULTS: Intervals: Rate: 105 OH: 128 QRSD: 112 QT: 362 QTc: 478 Deal: P: 30 OH: 128 QRS: 93 T: 27 INTERPRETIVE STATEMENTS: Sinus tachycardia Right bundle branch block Abnormal ECG Compared to ECG 08/15/2018 11:02:17 Sinus rhythm no longer present Electronically Signed On 01-24-19 15:07:30 ELECTRONIC NEWS GATHERING EDITOR by Solomon Porter
--- NOTE | 2019-01-24 15:24 | RAD REPORT ---
EXAM DESCRIPTION: CT - Chest For Pe Angio - 01/24/2019 3:13 pm CLINICAL HISTORY: Chest pain. Chest pain, immobility, tachy, hx of clot COMPARISON: <Comparisons> TECHNIQUE: CT angiogram of the pulmonary arteries was performed with MIP. All CT scans are performed using dose optimization technique as appropriate and may include automated exposure control or mA/KV adjustment according to patient size. FINDINGS: No evidence of pulmonary thromboembolism. No acute aortic finding demonstrated. The lungs are clear. No significant pericardial or pleural fluid. No concerning bony finding. IMPRESSION: No evidence of pulmonary thromboembolism. No acute lung findings.
--- NOTE | 2019-01-24 15:52 | ER ---
Nurse's Notes [facility] Name: Ramirez Chaudhari Age: 53 yrs Sex: Male : 1965 Arrival Date: 01/24/2019 Time: 12:48 Bed 5 Private MD: Amari Brizuela Diagnosis: Chest pain;CKD;paraplegia Presentation: 01/24 13:03 Presenting complaint: Patient states: Chest pain that started two days ago, mid sternal sg pain that radiates to the left anterior chest wall.Indigestion and vomiting x2 nights ago, has an open would, was seen on 11/21 by for a fistula in the rectum with a follow up apointment scheduled on the 01 of February. states when he self cath for urine there was blood tinged urine returned x3, maybe has a UTI as well. Transition of care: patient was not received from another setting of care. Onset of symptoms was January 24, 2019. Risk Assessment: Do you want to hurt yourself or someone else? Patient reports no desire to harm self or others. Initial Sepsis Screen: Does the patient meet any 2 criteria? No. Patient's initial sepsis screen is negative. Does the patient have a suspected source of infection? Yes: Dysuria/Frequency/Urgency/UTI. Care prior to arrival: None. 13:03 Method Of Arrival: Wheelchair sg 13:03 Acuity: NOHEMI 3 sg Historical: - Allergies: 13:11 Ibuprofen; sg 13:11 metformin; sg - Home Meds: 13:11 atenolol 50 mg Oral tab 1 tab once daily [Active]; Colcrys 0.6 mg Oral tab 1 tab bid sg prn gout [Active]; Levemir 36 units subcutaneous soln twice a day [Active]; levothyroxine 75 mcg tab 1 tab once daily [Active]; Novolog 22 units Sub-Q before meals [Active]; - PMHx: 13:11 ADD/ADHD; Diabetes - IDDM; GERD; Gout; High Cholesterol; Hydrocele Left Testicle; sg Hypertension; Hypothyroidism; Migraines; Paraplegia; Renal Disease; Spinal Stroke; - PSHx: 13:11 spinal surgery; sg - Immunization history:: Adult Immunizations. - Social history:: Smoking status: . - Ebola Screening: : Patient denies travel to an Ebola-affected area in the 21 days before illness onset. Screenin:06 Abuse screen: Denies threats or abuse. Nutritional screening: No deficits noted. tw2 Tuberculosis screening: No symptoms or risk factors identified. Fall Risk None identified. Assessment: 13:15 General: Appears in no apparent distress. well groomed, well developed, well nourished, sg Behavior is calm, cooperative, appropriate for age. Pain: Complains of pain in chest Quality of pain is described as aching, tightness. Neuro: Level of Consciousness is awake, alert, obeys commands, Oriented to person, place, time, situation, Land[employer] System Operator are equal bilaterally Moves all extremities. Gait is steady, Speech is normal, Facial symmetry appears normal. Cardiovascular: Capillary refill is brisk in bilateral fingers Patient's skin is warm and dry. Chest pain is described as vague, quality is heaviness. Respiratory: Airway is patent Respiratory effort is even, unlabored, Respiratory pattern is regular, symmetrical. GI: No signs and/or symptoms were reported involving the gastrointestinal system. : No signs and/or symptoms were reported regarding the genitourinary system. EENT: No signs and/or symptoms were reported regarding the EENT system. Derm: Skin is pink, warm \T\ dry. Musculoskeletal: Circulation, motion, and sensation intact. Range of motion: intact in all extremities. 13:41 Reassessment: Patient appears in no apparent distress at this time. Patient is alert, sg oriented x 3, equal unlabored respirations, skin warm/dry/pink. 14:53 Pain: Pain began 2-3 days ago. tw2 14:53 Pain: Pain radiates to back and chest. tw2 16:12 Reassessment: Patient appears in no apparent distress at this time. No changes from tw2 previously documented assessment. Patient and/or family updated on plan of care and expected duration. Pain level reassessed. Patient is alert, oriented x 3, equal unlabored respirations, skin warm/dry/pink. Vital Signs: 13:08 BP 109 / 74; Pulse 90; Resp 18 S; Temp 99.9; Pulse Ox 95% on R/A; Pain 7/10; sg 14:51 BP 132 / 83; Pulse 88; Resp 17; Pulse Ox 95% on R/A; tw2 16:00 BP 123 / 78; Pulse 82; Resp 17; Pulse Ox 95% on R/A; tw2 17:00 BP 129 / 92; Pulse 85; Resp 17; Pulse Ox 95% on R/A; tw2 ED Course: 12:48 Patient arrived in ED. mr 12:48 Amari Brizuela is Private Physician. mr 12:50 Bed in low position. Adult w/ patient. library monitor on. Pulse ox on. NIBP on. tw2 12:53 Ford Bass MD is Attending Physician. ps1 13:06 EKG done, by customer account technician. reviewed by Ford Bass MD. at1 13:07 Arm band placed on. tw2 13:08 Triage completed. sg 13:08 Patient maintains SpO2 saturation greater than 95% on room air. tw2 13:41 Uche Pate, RN is Primary Nurse. sg 13:41 Initial lab(s) drawn, by wy, sent to lab. Inserted saline lock: 20 gauge in right sg antecubital area, using aseptic technique. Blood collected. 15:14 CT Chest For PE Angio In Process Unspecified. EDMS 15:49 Mk Pratt MD is Hospitalizing Provider. ps1 17:16 No provider procedures requiring assistance completed. Patient admitted, IV remains in tw2 place. Administered Medications: No medications were administered Point of Care Testing: Blood Glucose: 17:16 Blood Glucose: 423 mg/dL; tw2 17:16 provider notified, no new orders at this time. tw2 Ranges: Outcome: 15:52 Decision to Hospitalize by Provider. ps1 17:16 Admitted to Med/surg accompanied by tech, via stretcher, room 419, with chart, Report tw2 called to NORBERTO Gabriel 17:16 Condition: stable 17:16 Instructed on the need for admit. 17:20 Patient left the ED. tw2 Signatures: Dispatcher [employer] EDMS Uche Pate, RN RN Tere Keenan Amanda, metaphysicist EKG Tat1 Hoda Meyer RN RN tw2 Ford Bass MD MD ps1
--- NOTE | 2019-01-24 15:53 | EDPHYS ---
Physician Documentation [facility] Name: Ramirez Chaudhari Age: 53 yrs Sex: Male : 1965 Arrival Date: 01/24/2019 Time: 12:48 Bed 5 Private MD: Amari Brizuela ED Physician Ford Bass HPI: 01/24 13:13 This 53 yrs old Male presents to ER via Wheelchair with complaints of Chest ps1 Pain. 13:13 patient states that he has a one day history of left sided chest pain. Non-radiating. ps1 No shortness of breath or fever. He has a history of paralysis below the waist from spinal cord injury "from a clot". States that he has otherwise had no previous cardiac evaluation. . Historical: - Allergies: 13:11 Ibuprofen; sg 13:11 metformin; sg - Home Meds: 13:11 atenolol 50 mg Oral tab 1 tab once daily [Active]; Colcrys 0.6 mg Oral tab 1 tab bid sg prn gout [Active]; Levemir 36 units subcutaneous soln twice a day [Active]; levothyroxine 75 mcg tab 1 tab once daily [Active]; Novolog 22 units Sub-Q before meals [Active]; - PMHx: 13:11 ADD/ADHD; Diabetes - IDDM; GERD; Gout; High Cholesterol; Hydrocele Left Testicle; sg Hypertension; Hypothyroidism; Migraines; Paraplegia; Renal Disease; Spinal Stroke; - PSHx: 13:11 spinal surgery; sg - Immunization history:: Adult Immunizations. - Social history:: Smoking status: . - Ebola Screening: : Patient denies travel to an Ebola-affected area in the 21 days before illness onset. ROS: 13:13 Constitutional: Negative for fever, chills, and weight loss, Eyes: Negative for injury, ps1 pain, redness, and discharge, Respiratory: Negative for shortness of breath, cough, wheezing, and pleuritic chest pain, Abdomen/GI: Negative for abdominal pain, nausea, vomiting, diarrhea, and constipation, Skin: Negative for injury, rash, and discoloration. 13:13 Cardiovascular: Positive for chest pain. 13:13 MS/extremity: Positive for paresthesias, of the right leg and left leg. 13:13 Neuro: Positive for weakness, of the right leg and left leg. Exam: 13:13 Constitutional: This is a well developed, well nourished patient who is awake, alert, ps1 and in no acute distress. Head/Face: Normocephalic, atraumatic. Eyes: Pupils equal round and reactive to light, extra-ocular motions intact. Lids and lashes normal. Conjunctiva and sclera are non-icteric and not injected. Chest/axilla: Normal chest wall appearance and motion. Nontender with no deformity. No lesions are appreciated. Cardiovascular: Regular rate and rhythm. No gallops, murmurs, or rubs. Normal PMI, no JVD. No pulse deficits. Respiratory: Lungs have equal breath sounds bilaterally, clear to auscultation and percussion. No rales, rhonchi or wheezes noted. No increased work of breathing, no retractions or nasal flaring. Abdomen/GI: Soft, non-tender, with normal bowel sounds. No distension or tympany. No guarding or rebound. No evidence of tenderness throughout. 13:13 Musculoskeletal/extremity: Extremities: global atrophy of lower extremities. 13:13 Neuro: Orientation: is normal, Mentation: is normal, Cerebellar function: is grossly normal, Motor: weakness in lower extremities. Vital Signs: 13:08 BP 109 / 74; Pulse 90; Resp 18 S; Temp 99.9; Pulse Ox 95% on R/A; Pain 7/10; sg 14:51 BP 132 / 83; Pulse 88; Resp 17; Pulse Ox 95% on R/A; tw2 16:00 BP 123 / 78; Pulse 82; Resp 17; Pulse Ox 95% on R/A; tw2 17:00 BP 129 / 92; Pulse 85; Resp 17; Pulse Ox 95% on R/A; tw2 MDM: 13:27 Patient medically screened. ps1 15:52 Differential diagnosis: abnormal EKG, acute myocardial infarction, anxiety, coronary ps1 artery disease esophagitis, pneumonia, pulmonary embolus. Data reviewed: vital signs, nurses notes. Counseling: I had a detailed discussion with the patient and/or guardian regarding: the historical points, exam findings, and any diagnostic results supporting the discharge/admit diagnosis, the presence of at least one elevated blood pressure reading (>120/80) during this emergency department visit, lab results, radiology results, the need for further work-up and treatment in the hospital. 11/18 13:08 Order name: CBC with Diff; Complete Time: 13:58 ps1 01/24 13:08 Order name: Magnesium; Complete Time: 14:51 ps1 01/24 13:08 Order name: NT PRO-BNP; Complete Time: 14:51 ps1 01/24 13:08 Order name: PT-INR; Complete Time: 14:30 ps1 01/24 13:08 Order name: Troponin (emerg Dept Use Only); Complete Time: 14:51 [facility] 01/24 13:08 Order name: CMP; Complete Time: 14:51 [facility] 01/24 16:35 Order name: CBC with Automated Diff EDMS 01/24 16:35 Order name: CBC with Automated Diff EDMS 01/24 16:35 Order name: CKMB Creatine Kinase MB EDCO 01/24 16:35 Order name: CKMB Creatine Kinase MB EDCO 01/24 16:35 Order name: CKMB Creatine Kinase MB EDCO 01/24 16:35 Order name: CKMB Creatine Kinase MB EDCO 01/24 16:35 Order name: Comprehensive Metabolic Panel EDCO 01/24 16:35 Order name: Comprehensive Metabolic Panel EDCO 01/24 13:08 Order name: EKG; Complete Time: 13:09 [facility] 01/24 13:08 Order name: CT Chest For PE Angio; Complete Time: 15:48 [facility] 01/24 16:34 Order name: CONS Pharmacy Consult EDCO 01/24 16:34 Order name: CONS Physician Consult EDCO 01/24 16:35 Order name: Heart Healthy EDCO 01/24 16:35 Order name: Creatine Phosphokinase EDCO 01/24 16:35 Order name: Creatine Phosphokinase EDCO 01/24 16:35 Order name: Creatine Phosphokinase EDCO 01/24 16:35 Order name: Creatine Phosphokinase EDCO 01/24 16:35 Order name: Lipid Profile EDCO 01/24 16:35 Order name: Lipid Profile EDCO 01/24 16:35 Order name: Protime (+INR) EDCO 01/24 16:35 Order name: Protime (+INR) EDCO 01/24 16:35 Order name: Troponin I EDCO 01/24 16:35 Order name: Troponin I EDCO 01/24 16:35 Order name: Troponin I EDCO 01/24 13:08 Order name: Cardiac monitoring; Complete Time: 13:11 ps1 11/18 13:08 Order name: EKG - Nurse/Tech; Complete Time: 17: ps1 01/24 13:08 Order name: IV Saline Lock; Complete Time: 17: ps1 01/24 13:08 Order name: Labs collected and sent; Complete Time: 17: ps1 01/24 13:08 Order name: O2 Per Protocol; Complete Time: 13: ps1 01/24 13:08 Order name: O2 Sat Monitoring; Complete Time: 13:11 ps1 EC:13 Rate is 105 beats/min. Rhythm is regular. QRS Gautier is Normal. ND interval is normal. ps1 QRS interval is prolonged. QT interval is normal. No Q waves. T waves are Normal. No ST changes noted. Clinical impression: Sinus tachycardia with RBBB. . Interpreted by me. Administered Medications: No medications were administered Point of Care Testing: Blood Glucose: 17: Blood Glucose: 423 mg/dL; tw2 17:16 provider notified, no new orders at this time. tw2 Ranges: Critical Glucose Levels:Adult <50 mg/dl or >400 mg/dl <40 mg/dl or >180 mg/dl Disposition: 01/24/19 15:52 Hospitalization ordered by Mk Pratt for Observation. Preliminary diagnosis are Chest pain, CKD, paraplegia. - Bed requested for Telemetry/MedSurg (observation). - Status is Observation. tw2 - Condition is Stable. - Problem is new. - Symptoms are unchanged. UTI on Admission? No Signatures: Dispatcher [employer] EDMS KrystleAishwarya trivedi Uche Pate RN NORBERTO Hoda Meyer RN RN tw2 Manuel Landin RN RN ja1 Ford Bass MD MD ps1 Corrections: (The following items were deleted from the chart) 16:59 15:52 Hospitalization Ordered by Mk Pratt MD for Observation. Preliminary bd diagnosis is Chest pain; CKD; paraplegia. Bed requested for Telemetry/MedSurg (observation). Status is Observation. Condition is Stable. Problem is new. Symptoms are unchanged. UTI on Admission? No. ps1 17:01 16:59 01/24/2019 15:52 Hospitalization Ordered by Mk Pratt MD for Observation. ja1 Preliminary diagnosis is Chest pain; CKD; paraplegia. Bed requested for Telemetry/MedSurg (observation). Status is Observation. Condition is Stable. Problem is new. Symptoms are unchanged. UTI on Admission? No. bd 17:20 17:01 01/24/2019 15:52 Hospitalization Ordered by Mk Pratt MD for Observation. tw2 Preliminary diagnosis is Chest pain; CKD; paraplegia. Bed requested for Telemetry/MedSurg (observation). Status is Observation. Condition is Stable. Problem is new. Symptoms are unchanged. UTI on Admission? No. ja1
[2019-01-24] MEDS ORDERED: ACETAMINOPHEN 500 MG TAB PO PRN (16:30)
[2019-01-24] MEDS ORDERED: ONDANSETRON 4 MG/2 ML VIAL IV PRN (16:30)
--- NOTE | 2019-01-24 16:37 | P.HP ---
Certification for Inpatient Patient admitted to: Observation With expected LOS: <2 Midnights Patient will require the following post-hospital care: None Practitioner: I am a practitioner with admitting privileges, knowledge of patient current condition, hospital course, and medical plan of care. Services: Services provided to patient in accordance with Admission requirements found in Title 42 Section 412.3 of the Code of Federal Regulations Patient History Date of Service: 01/25/19 Reason for admission: Chest pain History of Present Illness: 53 yo male with past medical history of diabetes mellitus, hypertension, paraplegia , wheel chair bound came to ER with chest discomfort. he started having chest discomfort of 1 day duration that was retrosternal with radiation to the left arm pressure-like not associated with any diaphoresis No nausea vomiting or diarrhea Patient was assessed in the ER was formed to have chest pain and was admitted to rule out ACS. Allergies metformin Adverse Reaction (Severe, Verified 11/21/18 13:27) Anaphylaxis ibuprofen Adverse Reaction (Verified 11/21/18 13:27) seecom adler peppers Allergy (Intermediate, Uncoded 11/21/18 13:27) Nausea/Vomiting stitches Adverse Reaction (Mild, Uncoded 11/21/18 13:27) Rash Home medications list reviewed: Yes Home Medications: Colchicine 0.6 mg PO DAILY 11/21/18 Furosemide [Lasix] 20 mg PO DAILY 11/21/18 Insulin Aspart [Novolog Flexpen] 20 units SQ TID 11/21/18 Insulin Detemir [Levemir Flextouch] 36 units SQ BID 11/21/18 Levothyroxine [Synthroid*] 75 mcg PO DAILY 11/21/18 Lisinopril 40 mg PO DAILY 11/21/18 - Past Medical/Surgical History Diabetic: Yes Past Medical History: Reviewed- Non-Contributory -: HTN -: gout -: gerd -: hypercholesterol -: spinal cord injury -: self cath -: hypothyroidism -: paraplegic -: GERD Past Surgical History: Reviewed- Non-Contributory -: spinal surgery -: 2 hydroceles -: I&D sacrum - Family History Family History: Reviewed- Non-Contributory - Family History Mother -: Hypertension, Diabetes, Stroke Notes: with gangrene leg - Social History Smoking Status: Former smoker Alcohol use: No CD- Drugs: No Caffeine use: Yes Review of Systems 10-point ROS is otherwise unremarkable ENT: Unremarkable Respiratory: Unremarkable Physical Examination - Vital Signs Temperature: 97.7 F Blood Pressure: 118/78 Pulse: 96 Respirations: 20 - Physical Exam General: Alert, In no apparent distress HEENT: Atraumatic, Normocephalic Neck: Supple Respiratory: Clear to auscultation bilaterally, Normal air movement Cardiovascular: Regular rate/rhythm, Normal S1 S2, Edema Gastrointestinal: Soft and benign Musculoskeletal: No clubbing, Swelling Integumentary: No rashes Neurological: Other (paraplegic ), Abnormal gait, Abnormal strength Lymphatics: No axilla or inguinal lymphadenopathy External genitalia: Deferred Rectal: Deferred - Studies Laboratory Data (last 24 hrs) 01/24/19 13:30: PT 11.1, INR 0.94 01/24/19 13:30: WBC 5.1, Hgb 15.4, Hct 44.3, Plt Count 127 L 01/24/19 13:30: Sodium 135 L, Potassium 4.1, BUN 35 H, Creatinine 1.80 H, Glucose 432 H*, Magnesium 1.9, Total Bilirubin 0.6, AST 34, ALT 62, Alkaline Phosphatase 146 H Assessment and Plan - Problems (Diagnosis) (1) Chest pain Current Visit: Yes Status: Acute (2) Abnormal renal function Onset Date: 07/25/16 Current Visit: No Status: Acute (3) Weakness Onset Date: 02/06/15 Current Visit: No Status: Chronic (4) CKD (chronic kidney disease), stage III Onset Date: 04/04/14 Current Visit: No Status: Chronic (5) DM2 (diabetes mellitus, type 2) Onset Date: 11/25/16 Current Visit: No Status: Chronic Qualifiers: Diabetes mellitus fci insulin use: with fci use Diabetes mellitus complication status: with hyperglycemia Qualified Code(s): E11.65 - Type 2 diabetes mellitus with hyperglycemia; 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 (6) Gastroesophageal reflux disease Onset Date: 10/16/14 Current Visit: No Status: Chronic Qualifiers: Esophagitis presence: without esophagitis Qualified Code(s): K21.9 - Gastro -esophageal reflux disease without esophagitis (7) History of spinal cord injury Current Visit: No Status: Chronic (8) Hyperlipidemia Onset Date: 10/16/14 Current Visit: No Status: Chronic Qualifiers: (9) Hypertension Onset Date: 04/04/14 Current Visit: No Status: Chronic Plan: Monitor under telemetry Trend cardiac enzymes Cardiology consult Continue home medications and titrate as needed Pain control Insulin sliding scale Antihypertensives titrated Qualifiers: - Advance Directives Does patient have a Living Will: No Does patient have a Durable POA for Healthcare: No Time Spent Managing Pts Care (In Minutes): 45
[2019-01-24] MEDS ORDERED: D50W 25 GM/50 ML SYRINGE/VIAL IV PRN (17:40)
[2019-01-24] MEDS ORDERED: GLUCAGON 1 MG/VIAL IM PRN (17:40)
[2019-01-24] MEDS: ENOXAPARIN 30 MG/0.3 ML SQ SCH (17:55)
[2019-01-24] MEDS: INSULIN -REGULAR HUMAN 50 UNIT/0.5 ML ML SQ SCH ×2 (17:56→22:14)
[2019-01-24 18:20] LABS: CKMB Creatine Kinase MB < 1.0 ng/mL (0.3-3.6); Creatine Phosphokinase 40 U/L (39-308); Troponin I < 0.02 ng/mL (0.0-0.045)
[2019-01-24] MEDS ORDERED: INFLUENZA VACCINE (for 3y+) 0.5 ML DOSE IMVAC ONE (19:00)
[2019-01-24 19:49] LABS: Urine Appearance CLEAR; Urine Bilirubin NEGATIVE (NEG); Urine Blood TRACE (NEG); Urine Color YELLOW; Urine Glucose 3+ (NEG); Urine Protein TRACE (NEG); Urine Specific Gravity <1.005 (1.005-1.030); Urine Urobilinogen 0.2 mg/dL (0.2-1.0); Urine pH 5.5 (5.0-7.0)
[2019-01-24 19:50] LABS: Urine Bacteria <20 /HPF (NONE SEEN); Urine Culture Reflex Order REFLEXED; Urine Microscopic Reflex ORDER UMIC; Urine RBC <5 /HPF (NONE SEEN)
[2019-01-24] MEDS: MORPHINE 2 MG/ML SYR IV PRN (21:05)
[2019-01-24] MEDS: INSULIN LISPRO 100 UNIT/1 ML SQ SCH (22:14)
[2019-01-24] MEDS: INSULIN GLARGINE 100 UNITS/ML SQ SCH (22:14)
[2019-01-25] MEDS: MORPHINE 2 MG/ML SYR IV PRN ×3 (00:35→23:47)
[2019-01-25 04:35] LABS: Protime INR 0.93
[2019-01-25 04:42] LABS: Absolute Lymphocytes (CBC) 1.9 K/uL (0.7-4.9); Basophils % 0.7 % (0-1.3); Hematocrit 40.8 % (39.6-49.0); Lymphocytes % 31.8 % (15.3-44.8); MPV 11.2 fL (7.6-11.3); RBC Red Blood Cell Count 4.67 M/uL (4.33-5.43)
[2019-01-25 04:43] LABS: Albumin 3.2 g/dL (3.4-5.0); Bilirubin Total 0.5 mg/dL (0.2-1.0); Potassium 3.9 mmol/L (3.5-5.1); Protein, Total 6.6 g/dL (6.4-8.2)
[2019-01-25] MEDS ORDERED: REGADENOSON 0.4 MG/5 ML SYR IV ONE (07:59)
[2019-01-25] MEDS ORDERED: LEVOTHYROXINE SOD 0.075 MG TAB PO SCH (09:00)
[2019-01-25] MEDS: INSULIN GLARGINE 100 UNITS/ML SQ SCH ×2 (09:52→21:00)
[2019-01-25] MEDS: INSULIN LISPRO 100 UNIT/1 ML SQ SCH ×3 (09:53→20:59)
[2019-01-25] MEDS: COLCHICINE 0.6 MG TAB PO SCH (09:54)
--- NOTE | 2019-01-25 09:54 | TREADPHA ---
DX: CHEST PAIN Date of Study: 01/25/2019 Ht: 5 8 Wt: 229 lb 8 oz Consulting Physician: ALFRED MEDICATIONS: TYLENOL, COLCRYS, DEXTROSE, LOVENOX, LANTUS, NOVOLIN-R, PRINIVIL, ZOFRAN HISTORY: INSULIN DEPENDENT DIABETES MELLITUS, HYPERTENSION, RENAL INSUFFICIENCY, ARTHRITIS PHYSICIAL EXAMINATION: RESTING B.P.: 148/95 RESTING H.R.: 74 RESTING EKG: SINUS RHYTHM, RIGHT BUNDLE BRANCH BLOCK PROTOCOL: PHARMACOLOGICAL EXERCISE TIME: 3:30 B.P. AT [place]AK STRESS: 153/97 IMPRESSION: LEXISCAN STRESS TEST PERFORMED. CARDIOLITE INJECTED PER PROTOCOL. NO VENTRICULAR TACHYCARDIA, NO SUPRAVENTRICULAR TACHYCARDIA, NO ARRHYTHMIA NOTED. PATIENT DENIED CHEST PAIN. PATIENT TOLERATED WELL. SEE NUCLEAR MEDICINE REPORT.
[2019-01-25] MEDS: lisinopriL 20 MG TAB PO SCH (09:55)
[2019-01-25] MEDS: INSULIN -REGULAR HUMAN 50 UNIT/0.5 ML ML SQ SCH ×5 (09:56→20:59)
[2019-01-25 10:10] LABS: CKMB Creatine Kinase MB 1.7 ng/mL (0.3-3.6)
--- NOTE | 2019-01-25 10:29 | RAD REPORT ---
EXAM DESCRIPTION: NM - Rest Stress Cardiac Imaging - 01/25/2019 10:10 am CLINICAL HISTORY: Chest pain COMPARISON: July 2016 TECHNIQUE: The patient was administered approximately 10 mCi of Tc 99m Sestamibi prior to resting SP ECT imaging of the heart. The patient was then administered approximately 30 mCi of Tc 99m Sestamibi following exercise or pharmacologic stress. Multiplanar SPECT images were reviewed. FINDINGS: The end diastolic volume is 97 ml, the end systolic volume is 40 ml, and the ejection frac tion is 59 %. Ventricular volumes and ejection fractions similar to the 2017. Stress images show slight decrease in activity along the inferior wall when compared to rest imaging. This matches the 2017 study. Finding is suspicious for stress ischemia but needs to be correlated w ith any catheterization or evaluation that may have occurred subsequent to the 2017 study where a sim ilar finding was noted. Elsewhere no stress ischemia or scarred myocardium identified. IMPRESSION: Diminished stress activity in the inferior wall. This is a pattern suspicious for stress ischemia. The inferior wall stress ischemia pattern matches the 2017 study. Correlation is needed with any cath eterization or diagnostic study that may have occurred after the 2017 finding. Ventricular volumes and ejection fraction are normal range and match the 2017 study.
--- NOTE | 2019-01-25 10:57 | P.PN ---
Subjective Date of Service: 01/25/19 Chief Complaint: Chest pain Subjective: No new changes, Improving Review of Systems 10-point ROS is otherwise unremarkable ENT: Unremarkable Respiratory: Unremarkable Physical Examination - Vital Signs Temperature: 97.2 F Blood Pressure: 149/91 Pulse: 75 Respirations: 18 Pulse Ox (%): 95 - Physical Exam General: Alert, In no apparent distress HEENT: Atraumatic, Normocephalic Neck: Supple Respiratory: Clear to auscultation bilaterally, Normal air movement Cardiovascular: Normal pulses, Regular rate/rhythm Capillary refill: <2 Seconds Gastrointestinal: Soft and benign, W/out hepatosplenomegaly, Ascites Musculoskeletal: Swelling, Other (paraplegia +) Neurological: Other (paraplegia ), Abnormal gait, Abnormal strength Lymphatics: No axilla or inguinal lymphadenopathy External genitalia: Deferred Rectal: Deferred - Studies Laboratory Data (last 24 hrs) 01/24/19 13:30: PT 11.1, INR 0.94 01/24/19 13:30: WBC 5.1, Hgb 15.4, Hct 44.3, Plt Count 127 L 01/24/19 13:30: Sodium 135 L, Potassium 4.1, BUN 35 H, Creatinine 1.80 H, Glucose 432 H*, Magnesium 1.9, Total Bilirubin 0.6, AST 34, ALT 62, Alkaline Phosphatase 146 H Assessment & Plan - Problems (Diagnosis) (1) Chest pain Current Visit: Yes Status: Acute Plan: Trended cardiac enzymes Monitor under telemetry Underwent a stress test stress test was positive discussed with cardiology scheduled for left heart catheterization in a.m. (2) Abnormal renal function Onset Date: 07/25/16 Current Visit: No Status: Acute Plan: Renal parameters monitored trending down (3) Weakness Onset Date: 02/06/15 Current Visit: No Status: Chronic Plan: Continue supportive measures (4) DM2 (diabetes mellitus, type 2) Onset Date: 11/25/16 Current Visit: No Status: Chronic Plan: Insulin sliding scale and insulin Home regime Qualifiers: Diabetes mellitus senior care insulin use: with senior care use Diabetes mellitus complication status: with hyperglycemia Qualified Code(s): E11.65 - Type 2 diabetes mellitus with hyperglycemia; Z79.4 - detention (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 (5) Gastroesophageal reflux disease Onset Date: 10/16/14 Current Visit: No Status: Chronic Plan: Continue PPI Qualifiers: Esophagitis presence: without esophagitis Qualified Code(s): K21.9 - Gastro -esophageal reflux disease without esophagitis (6) History of spinal cord injury Current Visit: No Status: Chronic Plan: Supportive measures (7) Hyperlipidemia Onset Date: 10/16/14 Current Visit: No Status: Chronic Plan: Continue home medications and titrate as needed Qualifiers: (8) Hypertension Onset Date: 04/04/14 Current Visit: No Status: Chronic Plan: Continue home medications and titrate as needed Dysuria will get a UA considering his self catheterisation History of fistula in ano pain in the perirectal region surgical consult Qualifiers: Time Spent Managing Pts Care (In Minutes): 43
--- NOTE | 2019-01-25 14:22 | ECHO ---
HEIGHT: 5 ft 8 in WEIGHT: 229 lb 0 oz DATE OF STUDY: 01/25/[address]: Micha Tena MD 2-DIMENSIONAL: YES M.MODE: YES DOPPLER: YES COLOR FLOW: YES TDS: NO PORTABLE: NO DEFINITY: NO BUBBLE STUDY: NO DIAGNOSIS: CHEST PAIN CARDIAC HISTORY: CATHERIZATION: NO SURGERY: NO PROSTHETIC VALVE: NO PACEMAKER: NO MEASUREMENTS (cm) DIASTOLIC (NORMALS) SYSTOLIC (NORMALS) IVSd 1.1 (0.6-1.2) LA Diam 3.1 (1.9-4.0) LVEF 68% LVIDd 4.6 (3.5-5.7) LVIDs 2.9 (2.0-3.5) %FS 38% LVPWd 1.1 (0.6-1.2) Ao Diam 3.4 (2.0-3.7) 2 DIMENSIONAL ASSESSMENT: RIGHT ATRIUM: NORMAL LEFT ATRIUM: NORMAL RIGHT VENTRICLE: NORMAL LEFT VENTRICLE: NORMAL TRICUSPID VALVE: NORMAL MITRAL VALVE: NORMAL PULMONIC VALVE: NORMAL AORTIC VALVE: NORMAL PERICARDIAL EFFUSION: NONE AORTIC ROOT: NORMAL LEFT VENTRICULAR WALL MOTION: NORMAL DOPPLER/COLOR FLOW: NORMAL COMMENTS: NORMAL 2D ECHOCARDIOGRAM WITH DOPPLER. NO WALL MOTION ABNORMALITY. NO EFFUSION. TECHNOLOGIST: Billy VELIZ
--- NOTE | 2019-01-25 15:54 | CON ---
Date of Consultation: 01/25/2019 Reason For Consultation: Perianal wound. History Of Present Illness: Patient is a 53-year-old gentleman who had an abscess of the perirectal area, which was dealt with in the operating room in November. He was found to have perirectal absce ss and fistula and fistulotomy was performed. He had a [id number]. His wound was being treated with local wound care. He was doing well from that aspect, but he had chest pain and he was admitted to the hospital and workup is in progress and I was consulted to manage this wound. He is awake, al ert. Denies any chest pain currently. No fever or chills. No purulent discharge. Review of Systems: Otherwise unremarkable. Past Medical History: Significant for paraplegia from either a blood clot or stroke in the spinal co rd in 2013. History of hypertension, diabetes, GERD, hyperlipidemia, UTI, neurogenic bladder. Past Surgical History: Spinal surgery and I and D of a perirectal abscess and fistulotomy. Allergies: METFORMIN AND IBUPROFEN. Social History: He does not smoke. Denies drinking. Family History: Noncontributory. Physical Examination: Vital Signs: Stable. He is afebrile. General: He is awake, alert, and oriented x3. Head and Neck: No masses. Chest: Clear. Heart: S1 and S2. Abdomen: Soft. Extremities: Paraplegia present. Neurologic: Nonfocal. Genitourinary: Perirectal exam reveals a healing wound on the left side. No surrounding erythema, w armth, or edema. No purulent discharge. It is beginning to epithelize on the side with good granula tion tissue in the middle. There is no hypertrophic granulation tissue. There is no sign of infecti on. Diagnostic Data: His CBC was essentially within normal limits. Platelets were slightly low. INR wa s 0.93. His glucose on admission was 432. His troponin 1 was less than 0.02. He had a stress test and nuclear medicine, which showed stress-induced ischemia and Cardiology is following for that. Assessment: A 53-year-old gentleman with perirectal wound healing and chest pain workup being done b y Cardiology. Recommendation: Medical management for the chest pain and Silvadene dressing for the wound as this i s epithelializing and good granulation tissue without any infection. Patient can follow up with me i n the wound healing center upon discharge. JHON/SNOW Voice ID: [id number] Report ID: [id number]
[2019-01-25] MEDS: ENOXAPARIN 30 MG/0.3 ML SQ SCH (17:39)
[2019-01-25] MEDS ORDERED: POTASSIUM CL SA 10 MEQ TAB PO ONE (18:00)
[2019-01-25] MEDS: SILVER SULFADIAZINE 1% 50 GM TOP SCH (20:59)
[2019-01-25] MEDS: JUVEN PACKET PO SCH (21:00)
--- NOTE | 2019-01-26 03:28 | CON ---
Date of Consultation: 01/25/[address] Pratt on 01/24/2019. I saw the patient on 01/25/2019. Reason For Consultation: Chest pain. History Of Present Illness: Mr. Chaudhari is a 53-year-old unfortunate male, who has had history of par alysis secondary to what sounded like a spinal cord hematoma and/or stroke. He is practically parapl egic. He has history of ADD, diabetes, hypertension, dyslipidemia, chronic renal disease, and gout, comes in with substernal chest pressure, nonradiating. No nausea, vomiting, or diaphoresis. The phuc n is not exertional. Denied any fever or chills or cough. Past Medical History: As stated earlier. Allergies: HE IS ALLERGIC TO METFORMIN, MOTRIN, WILEY PEPPERS, AND STITCHES. Review of Systems: Negative. Social History: Negative. Family History: Negative. Medications: At home include aspirin, Norvasc, and Lasix. Physical Examination: Vital Signs: Stable. He was afebrile. General: He was in no acute distress. HEENT: Negative. Neck: Supple with no bruit. Chest: Clear to auscultation and percussion. Cardiac: Revealed regular rhythm and rate. No murmurs, gallops, or rubs. Abdomen: Benign. Extremities: Revealed no clubbing, cyanosis, or edema. Diagnostic Data: His EKG shows right bundle-branch block. CT angiogram was negative. His glucose w as 423, creatinine 1.80. Impression And Plan: 1.Atypical chest pain, possibly gastroesophageal reflux disease, although patient has many risk fact ors for heart disease including diabetes, hypertension, and dyslipidemia. He is not physically very active and it is hard to know if he has any angina with exertion. Nevertheless, an echocardiogram an d Lexiscan have been ordered already. We will see what that shows prior to making any final decision s. 2.Hypertension, well controlled. 3.Dyslipidemia, well controlled. 4.Chronic renal disease. I will give him Mucomyst after the procedure. 5.Diabetes, poorly controlled. 6.Gout. 7.Attention deficit disorder. 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 STANLEY/SNOW Voice ID: [id number] Report ID: [id number]
[2019-01-26 04:44] LABS: Absolute Lymphocytes (CBC) 1.9 K/uL (0.7-4.9); Basophils % 0.7 % (0-1.3); Hematocrit 43.1 % (39.6-49.0); Lymphocytes % 38.6 % (15.3-44.8); RBC Red Blood Cell Count 4.93 M/uL (4.33-5.43)
[2019-01-26 04:48] VITALS: BMI 34.7
[2019-01-26 04:52] LABS: Potassium 3.8 mmol/L (3.5-5.1)
[2019-01-26] MEDS ORDERED: NA CHLORIDE 0.9% 1,000 ML ONE (05:09)
[2019-01-26] MEDS: lisinopriL 20 MG TAB PO SCH (05:34)
[2019-01-26] MEDS: MORPHINE 2 MG/ML SYR IV PRN ×3 (05:34→16:07)
[2019-01-26] MEDS ORDERED: LEVOTHYROXINE SOD 0.075 MG TAB PO SCH (06:30)
[2019-01-26] MEDS ORDERED: NA CHLORIDE 0.9% 0 ML ONE ×2 (07:02→07:03)
[2019-01-26] MEDS ORDERED: NICARDIPINE HCL 25 MG/10 ML IV ONE (07:02)
[2019-01-26] MEDS ORDERED: ATROPINE SULF 1 MG/10 ML SYR IV ONE (07:02)
[2019-01-26] MEDS ORDERED: HEPA 1000U/500MLS 2,000 UNIT/1,000 ML BAG IV ONE (07:02)
[2019-01-26] MEDS ORDERED: HEPARIN 5000 UNIT/ML 1 ML VIAL ONE (07:02)
[2019-01-26] MEDS ORDERED: LIDOCAINE 1% MPF 30 ML VIAL ONE (07:04)
[2019-01-26] MEDS: INSULIN -REGULAR HUMAN 50 UNIT/0.5 ML ML SQ SCH ×3 (07:30→16:30)
[2019-01-26] MEDS: SILVER SULFADIAZINE 1% 50 GM TOP SCH (09:00)
[2019-01-26] MEDS ORDERED: ACETYLCYST 20% 4 ML VIAL IH ONE (09:35)
[2019-01-26 10:17] VITALS: O2SAT 99
[2019-01-26] MEDS: COLCHICINE 0.6 MG TAB PO SCH (12:24)
[2019-01-26] MEDS: INSULIN GLARGINE 100 UNITS/ML SQ SCH (12:27)
[2019-01-26] MEDS: INSULIN LISPRO 100 UNIT/1 ML SQ SCH ×2 (12:27→14:00)
[2019-01-26] MEDS: JUVEN PACKET PO SCH (12:31)
--- NOTE | 2019-01-26 13:11 | P.DS ---
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 insulin use: with sow farm barn technician use Diabetes mellitus complication status: with hyperglycemia Qualified Code(s): E11.65 - Type 2 diabetes mellitus with hyperglycemia; Z79.4 - 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 analyst (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 (6) Gastroesophageal reflux disease Onset Date: 10/16/14 Current Visit: No Status: Chronic Qualifiers: Esophagitis presence: without esophagitis Qualified Code(s): K21.9 - Gastro -esophageal reflux disease without esophagitis (7) History of spinal cord injury Current Visit: No Status: Chronic (8) Hyperlipidemia Onset Date: 10/16/14 Current Visit: No Status: Chronic Qualifiers: (9) Hypertension Onset Date: 04/04/14 Current Visit: No Status: Chronic Qualifiers: Brief History of Present Illness: 53 yo male with past medical history of diabetes mellitus, hypertension, paraplegia , wheel chair bound came to ER with chest discomfort. he started having chest discomfort of 1 day duration that was retrosternal with radiation to the left arm pressure-like not associated with any diaphoresis No nausea vomiting or diarrhea Patient was assessed in the ER was formed to have chest pain and was admitted to rule out ACS. Hospital Course: Patient was admitted and was monitor under telemetry. Cardiac enzymes trended. Cardiology was consulted. Patient was started on aspirin statin. Antihypertensives titrated along with insulin sliding scale. Cardiology recommended stress test, which was showing abnormality. He underwent left heart catheterization which showed no critical occlusions in coronaries. Surgery was also consulted who recommended conservative management with outpatient follow up. The patient is being discharged home today in a stable condition with advice to follow up with PCP in 1 week and also with Cardiology and Surgery in 1-2 weeks. Patient has a history of paraplegia and is wheelchair bound. he requested a Valera to be kept at the time of discharge. Patient is instructed about Valera care and follow up with PCP presently as possible in view of possible urinary tract infection due to indwelling catheter. Vital Signs/Physical Exam: Temp Pulse Resp BP Pulse Ox 97 F 74 20 153/87 H 99 01/26/19 10:25 01/26/19 10:25 01/26/19 12:23 01/26/19 10:25 01/26/19 12:23 General: Alert, In no apparent distress HEENT: Atraumatic, Normocephalic Neck: Supple Respiratory: Clear to auscultation bilaterally, Normal air movement Cardiovascular: Regular rate/rhythm, Edema Capillary refill: <2 Seconds Gastrointestinal: Soft and benign, W/out hepatosplenomegaly Musculoskeletal: No clubbing Neurological: Abnormal strength Lymphatics: No axilla or inguinal lymphadenopathy External genitalia: Deferred Rectal: Deferred Laboratory Data at Discharge: WBC 5.0 K/uL (4.3-10.9) D 01/26/19 03:34 Hgb 14.8 g/dL (13.6-17.9) 01/26/19 03:34 Hct 43.1 % (39.6-49.0) 01/26/19 03:34 Plt Count 120 K/uL (152-406) L 01/26/19 03:34 PT 11.0 SECONDS (9.5-12.5) 01/25/19 03:43 INR 0.93 01/25/19 03:43 Sodium 138 mmol/L (136-145) 01/26/19 03:34 Potassium 3.8 mmol/L (3.5-5.1) 01/26/19 03:34 BUN 27 mg/dL (7-18) H 01/26/19 03:34 Creatinine 1.00 mg/dL (0.55-1.3) 01/26/19 03:34 Glucose 139 mg/dL (74-106) H 01/26/19 03:34 Magnesium 1.9 mg/dL (1.8-2.4) 01/24/19 13:30 Total Bilirubin 0.5 mg/dL (0.2-1.0) 01/25/19 03:43 AST 21 U/L (15-37) 01/25/19 03:43 ALT 48 U/L (12-78) 01/25/19 03:43 Alkaline Phosphatase 113 U/L (45-117) 01/25/19 03:43 Troponin I < 0.02 ng/mL (0.0-0.045) 01/24/19 21:43 Triglycerides 309 mg/dL (<150) H 01/25/19 03:43 Cholesterol 155 mg/dL (<200) 01/25/19 03:43 HDL Cholesterol 30 mg/dL (40-60) L 01/25/19 03:43 Cholesterol/HDL Ratio 5.17 01/25/19 03:43 Home Medications: RX: Colchicine 0.6 mg PO DAILY 11/21/18 RX: Furosemide [Lasix] 20 mg PO DAILY 11/21/18 RX: Insulin Aspart [Novolog Flexpen] 20 units SQ TID 11/21/18 RX: Insulin Detemir [Levemir Flextouch] 36 units SQ BID 11/21/18 RX: Levothyroxine [Synthroid*] 75 mcg PO DAILY 11/21/18 RX: Lisinopril 40 mg PO DAILY 11/21/18 Patient Discharge Instructions: Sivedene 1% to wound daily Diet: ADA Activity: Ad tadeo Followup: Micha Tena MD [ACTIVE - CAN ADMIT] - 1-2 Weeks (Call for appointment.) Rolly Badillo MD [ACTIVE - CAN ADMIT] - 1 Week ([facility] in my clinic) Time spent managing pt's care (in minutes): 39
[2019-01-26 13:21] VITALS: TEMP 97.9
[2019-01-26 16:35] VITALS: BP 148/70
[2019-01-26] MEDS: ENOXAPARIN 30 MG/0.3 ML SQ SCH (17:00)
--- NOTE | 2019-01-27 04:35 | OP ---
Date of Procedure: 01/26/2019 Surgeon: Micha Tena MD Exhibit Preparator: Eli Ball. Procedures: Left heart catheterization with selective coronary arteriogram. Indication: Chest pain and positive stress test. History Of Present Illness: Mr. Chaudhari has multiple cardiac risk factors including diabetes, hyperte nsion, dyslipidemia. He is a paraplegic secondary to a spinal stroke many years ago. Had atypical c hest pain, positive stress test at the inferior wall. Procedure In Detail: He was brought to the ammunition assembly laborer as an inpatient, prepped and draped in the routi ne sterile fashion. Given Versed for sedation. A 6-[place] sheath introduced in the right common fem oral artery successfully. Rico catheter left and right were used to do the diagnostic catheteriza tion. He had a very large RCA, which was very dominant and free of disease. His left system showed diffuse disease distally in the LAD with moderate plaquing, had about a 40% stenosis in 1 of his obtu se marginal. There was a 40% stenosis in the distal LAD. He had a myocardial bridge. No focal sten osis that requires any intervention. Complications: There were no complications. Blood Loss: 5 mL. Anesthesia: Total conscious sedation was 30 minutes. Final Diagnosis: Mild coronary artery disease. Plan: Plan is for medical therapy. The patient received some Mucomyst because of creatinine of 1.8. He will be at bedrest for 2 hours. He underwent a StarClose for closure of the groin. He will be going home later on today and we will see him in the office as an outpatient. He should definitely b e on high-dose statin therapy. STANLEY/SNOW Voice ID: [id number] Report ID: [id number]
== END 2019-01-26 17:10 | disposition home or self-care (01) ==
LOC: ER 12:45 → ERHOLD 16:31 → 4TH 17:09
PROVIDERS: ADMIT Family Medicine; ATTEND Family Medicine
PROC: 4A023N7 Measurement of Cardiac Sampling and Pressure, Left Heart, Percutaneous Approach (ICD-10-PCS; principal; 2019-01-26)
PROC: B201YZZ Plain Radiography of Multiple Coronary Arteries using Other Contrast (ICD-10-PCS; 2019-01-26)
PROC: B205YZZ Plain Radiography of Left Heart using Other Contrast (ICD-10-PCS; 2019-01-26)
DX: R07.89 Other chest pain (principal); E78.5 Hyperlipidemia, unspecified; G82.20 Paraplegia, unspecified; K21.9 Gastro-esophageal reflux disease without esophagitis; I45.10 Unspecified right bundle-branch block; I12.9 Hypertensive chronic kidney disease with stage 1 through stage 4 chronic kidney disease, or unspecified chronic kidney disease; E11.22 Type 2 diabetes mellitus with diabetic chronic kidney disease; N18.3 Chronic kidney disease, stage 3 (moderate); Z99.3 Dependence on wheelchair; E03.9 Hypothyroidism, unspecified; I25.10 Atherosclerotic heart disease of native coronary artery without angina pectoris
CPT/HCPCS: 36415; 71275; 78452; 80048; 80053; 80061; 81003; 81015; 82550; 82553; 82947; 83735; 83880; 84484; 85025; 85610; 87070; 87077; 87086; 87088; 87186; 87205; 93005; 93017; 93306; 93454; 94760; 99285; A9500; C1893; G0378; J0583; J1644; J1650; J1815; J2270; J2785; J7030; J7040; Q9967

== ENCOUNTER 2019-04-01 22:02 | Emergency (ER) | payer OTHER ==
--- OUTSIDE RECORDS SUMMARY | 2019-04-01 22:07 | XMS REPORT ---
:1965 Author Organization [facility] Address [address] [place] [address] Care Team Providers Name Role Phone FAITH GOMEZ Unavailable Unavailable Problems This patient has no known problems. Allergies, Adverse Reactions, Alerts This patient has no known allergies or adverse reactions. Medications This patient has no known medications. Results Test Description Test Time Test Comments Text Results Atomic Results Result Comments BLOOD CULTURE 2016-07-07 14:28:00 Test Item Value Reference Range Comments CULTURE (BEAKER) (test wgen=6945) No growth in 5 days POCT-GLUCOSE [id number] 12:04:00 Test Item Value Reference Range Comments POC-GLUCOSE METER (BEAKER) 179 mg/dL 70-110 TESTED AT [facility] [address] [facility] (test afdw=9211) [facility] [address] BASIC METABOLIC [id number] 09:51:00 Test Item Value Reference Range Comments SODIUM (BEAKER) (test 137 meq/L 136-145 axyf=727) POTASSIUM (BEAKER) (test 3.7 meq/L 3.5-5.1 zixn=998) CHLORIDE (BEAKER) (test 102 meq/L 98-107 ctiz=427) CO2 (BEAKER) (test 25 meq/L 22-29 kfef=718) BLOOD UREA NITROGEN 17 mg/dL 7-21 (BEAKER) (test zmkp=149) CREATININE (BEAKER) (test 1.04 mg/dL 0.57-1.25 nkqo=667) GLUCOSE RANDOM (BEAKER) 195 mg/dL 70-105 (test szat=748) CALCIUM (BEAKER) (test 9.2 mg/dL 8.4-10.2 nxma=308) EGFR (BEAKER) (test 76 mL/min/1.73 sq m ESTIMATED GFR IS NOT wfhj=8688) ACCURATE CREATININE CLEARANCE IN PREDICTING GLOMERULAR FILTRATION RATE. ESTIMATED GFR IS NOT APPLICABLE FOR DIALYSIS PATIENTS. CBC W/PLT COUNT & AUTO [id number] 09:20:00 Test Item Value Reference Range Comments WHITE BLOOD CELL COUNT (BEAKER) (test mror=676) 6.1 K/ L 4.0-10.0 RED BLOOD CELL COUNT (BEAKER) (test gnzx=892) 4.63 M/ L 4.20-5.80 HEMOGLOBIN (BEAKER) (test uerp=269) 13.7 GM/DL 13.0-16.8 HEMATOCRIT (BEAKER) (test qucc=914) 39.8 % 40.0-50.0 MEAN CORPUSCULAR VOLUME (BEAKER) (test ipjd=997) 85.9 fL 82.0-98.0 MEAN CORPUSCULAR HEMOGLOBIN (BEAKER) (test 29.6 pg 27.0-33.0 zgqy=791) MEAN CORPUSCULAR HEMOGLOBIN CONC (BEAKER) (test 34.5 GM/DL 32.0-36.0 skxp=637) RED CELL DISTRIBUTION WIDTH (BEAKER) (test 14.8 % 10.3-14.2 ugvy=676) PLATELET COUNT (BEAKER) (test fydk=641) 143 K/CU MM 150-430 MEAN PLATELET VOLUME (BEAKER) (test ksfu=790) 8.6 fL 6.5-10.5 NUCLEATED RED BLOOD CELLS (BEAKER) (test 0 /100 WBC 0-0 flta=369) NEUTROPHILS RELATIVE PERCENT (BEAKER) (test 71 % aqxi=255) LYMPHOCYTES RELATIVE PERCENT (BEAKER) (test 20 % wzhe=604) MONOCYTES RELATIVE PERCENT (BEAKER) (test 5 % lrpr=020) EOSINOPHILS RELATIVE PERCENT (BEAKER) (test 3 % allb=831) BASOPHILS RELATIVE PERCENT (BEAKER) (test 1 % tbpr=692) NEUTROPHILS ABSOLUTE COUNT (BEAKER) (test 4.31 K/ L 1.80-8.00 fwin=111) LYMPHOCYTES ABSOLUTE COUNT (BEAKER) (test 1.23 K/ L 1.48-4.50 ahoo=544) MONOCYTES ABSOLUTE COUNT (BEAKER) (test 0.28 K/ L 0.00-1.30 fokn=616) EOSINOPHILS ABSOLUTE COUNT (BEAKER) (test 0.21 K/ L 0.00-0.50 akvn=336) BASOPHILS ABSOLUTE COUNT (BEAKER) (test 0.03 K/ L 0.00-0.20 uaan=502) 0.00POCT-GLUCOSE [id number] 07:15:00 Test Item Value Reference Range Comments POC-GLUCOSE METER (BEAKER) 246 mg/dL 70-110 TESTED AT [address] (test hwqb=7176) [place] [address] POCT-GLUCOSE [id number] 21:12:00 Test Item Value Reference Range Comments POC-GLUCOSE METER (BEAKER) 89 mg/dL 70-110 TESTED AT [address] (test tkcg=5632) [place] [id number] POCT-GLUCOSE [id number] 17:12:00 Test Item Value Reference Range Comments POC-GLUCOSE METER (BEAKER) 217 mg/dL 70-110 TESTED AT [address] (test sjgd=2873) [place] [address] URINE [id number] 12:07:00 Test Item Value Reference Range Comments CULTURE (AKER) (test gspn=4463) <10,000 col/mL skin candi POCT-GLUCOSE [id number] 11:30:00 Test Item Value Reference Range Comments POC-GLUCOSE METER (BEAKER) 205 mg/dL 70-110 TESTED AT [address] (test qoin=0032) [place] [id number] POCT-GLUCOSE [id number] 07:36:00 Test Item Value Reference Range Comments POC-GLUCOSE METER (BEAKER) 195 mg/dL 70-110 TESTED AT [address] (test ikea=1581) [place] [address] CBC W/PLT COUNT & AUTO [id number] 05:14:00 Test Item Value Reference Range Comments WHITE BLOOD CELL COUNT (BEAKER) (test ubpr=106) 6.7 K/ L 4.0-10.0 RED BLOOD CELL COUNT (BEAKER) (test lphb=447) 4.40 M/ L 4.20-5.80 HEMOGLOBIN (BEAKER) (test eqcw=654) 13.3 GM/DL 13.0-16.8 HEMATOCRIT (BEAKER) (test wywz=400) 38.2 % 40.0-50.0 MEAN CORPUSCULAR VOLUME (BEAKER) (test qmcq=551) 86.8 fL 82.0-98.0 MEAN CORPUSCULAR HEMOGLOBIN (BEAKER) (test 30.1 pg 27.0-33.0 kwkk=978) MEAN CORPUSCULAR HEMOGLOBIN CONC (BEAKER) (test 34.7 GM/DL 32.0-36.0 dper=983) RED CELL DISTRIBUTION WIDTH (BEAKER) (test 14.7 % 10.3-14.2 iobr=389) PLATELET COUNT (BEAKER) (test sapy=466) 144 K/CU MM 150-430 MEAN PLATELET VOLUME (BEAKER) (test yjcm=586) 9.0 fL 6.5-10.5 NUCLEATED RED BLOOD CELLS (BEAKER) (test 0 /100 WBC 0-0 hnzz=036) NEUTROPHILS RELATIVE PERCENT (BEAKER) (test 67 % oycg=190) LYMPHOCYTES RELATIVE PERCENT (BEAKER) (test 25 % jldc=287) MONOCYTES RELATIVE PERCENT (BEAKER) (test 5 % pvsn=752) EOSINOPHILS RELATIVE PERCENT (BEAKER) (test 2 % juqa=549) BASOPHILS RELATIVE PERCENT (BEAKER) (test 0 % jfok=166) NEUTROPHILS ABSOLUTE COUNT (BEAKER) (test 4.52 K/ L 1.80-8.00 fdqf=895) LYMPHOCYTES ABSOLUTE COUNT (BEAKER) (test 1.70 K/ L 1.48-4.50 cqpu=453) MONOCYTES ABSOLUTE COUNT (BEAKER) (test 0.32 K/ L 0.00-1.30 jmjc=107) EOSINOPHILS ABSOLUTE COUNT (BEAKER) (test 0.16 K/ L 0.00-0.50 nvyu=836) BASOPHILS ABSOLUTE COUNT (BEAKER) (test 0.03 K/ L 0.00-0.20 rfii=215) 0.00[facility] METABOLIC [id number] 05:14:00 Test Item Value Reference Range Comments SODIUM (BEAKER) (test 134 meq/L 136-145 jbro=864) POTASSIUM (BEAKER) (test 4.2 meq/L 3.5-5.1 dhiv=224) CHLORIDE (BEAKER) (test 101 meq/L 98-107 ahlx=561) CO2 (BEAKER) (test 24 meq/L 22-29 vtyg=649) BLOOD UREA NITROGEN 20 mg/dL 7-21 (BEAKER) (test ssny=635) CREATININE (BEAKER) (test 1.16 mg/dL 0.57-1.25 kpnw=136) GLUCOSE RANDOM (BEAKER) 216 mg/dL 70-105 (test gzqe=821) CALCIUM (BEAKER) (test 8.8 mg/dL 8.4-10.2 nzgo=710) EGFR (BEAKER) (test 67 mL/min/1.73 sq m ESTIMATED GFR IS NOT jubc=1266) ACCURATE CREATININE CLEARANCE IN PREDICTING GLOMERULAR FILTRATION RATE. ESTIMATED GFR IS NOT APPLICABLE FOR DIALYSIS PATIENTS. POCT-GLUCOSE [id number] 21:04:00 Test Item Value Reference Range Comments POC-GLUCOSE METER (BEAKER) 178 mg/dL 70-110 TESTED AT [address] (test hkur=9869) [place] [id number] POCT-GLUCOSE [id number] 17:07:00 Test Item Value Reference Range Comments POC-GLUCOSE METER (BEAKER) 88 mg/dL 70-110 TESTED AT [address] (test ypjd=9350) [place] [id number] POCT-GLUCOSE [id number] 12:30:00 Test Item Value Reference Range Comments POC-GLUCOSE METER (BEAKER) 107 mg/dL 70-110 TESTED AT [address] (test xovi=2999) [facility] [address] POCT-GLUCOSE [id number] 07:46:00 Test Item Value Reference Range Comments POC-GLUCOSE METER (BEAKER) 169 mg/dL 70-110 TESTED AT [address] (test yfcv=8333) [facility] [address] CBC W/PLT COUNT & AUTO [id number] 07:42:00 Test Item Value Reference Range Comments WHITE BLOOD CELL COUNT (BEAKER) (test aaic=265) 6.5 K/ L 4.0-10.0 RED BLOOD CELL COUNT (BEAKER) (test fmsd=540) 4.57 M/ L 4.20-5.80 HEMOGLOBIN (BEAKER) (test ovbm=064) 13.4 GM/DL 13.0-16.8 HEMATOCRIT (BEAKER) (test stjw=199) 40.4 % 40.0-50.0 MEAN CORPUSCULAR VOLUME (BEAKER) (test uiut=034) 88.3 fL 82.0-98.0 MEAN CORPUSCULAR HEMOGLOBIN (BEAKER) (test 29.3 pg 27.0-33.0 hlok=727) MEAN CORPUSCULAR HEMOGLOBIN CONC (BEAKER) (test 33.2 GM/DL 32.0-36.0 xljt=766) RED CELL DISTRIBUTION WIDTH (BEAKER) (test 13.8 % 10.3-14.2 novf=186) PLATELET COUNT (BEAKER) (test pviy=580) 150 K/CU MM 150-430 MEAN PLATELET VOLUME (BEAKER) (test novz=708) 9.0 fL 6.5-10.5 NUCLEATED RED BLOOD CELLS (BEAKER) (test 0 /100 WBC 0-0 omoh=089) NEUTROPHILS RELATIVE PERCENT (BEAKER) (test 64 % wavn=153) LYMPHOCYTES RELATIVE PERCENT (BEAKER) (test 26 % pank=137) MONOCYTES RELATIVE PERCENT (BEAKER) (test 7 % hiox=549) EOSINOPHILS RELATIVE PERCENT (BEAKER) (test 3 % rzwx=003) BASOPHILS RELATIVE PERCENT (BEAKER) (test 0 % ofxo=500) NEUTROPHILS ABSOLUTE COUNT (BEAKER) (test 4.13 K/ L 1.80-8.00 cett=433) LYMPHOCYTES ABSOLUTE COUNT (BEAKER) (test 1.66 K/ L 1.48-4.50 smcq=311) MONOCYTES ABSOLUTE COUNT (BEAKER) (test 0.44 K/ L 0.00-1.30 eviw=767) EOSINOPHILS ABSOLUTE COUNT (BEAKER) (test 0.21 K/ L 0.00-0.50 mrye=356) BASOPHILS ABSOLUTE COUNT (BEAKER) (test 0.03 K/ L 0.00-0.20 cywa=579) 0.00[facility]I METABOLIC [id number] 06:13:00 Test Item Value Reference Range Comments SODIUM (BEAKER) (test 136 meq/L 136-145 flpw=406) POTASSIUM (BEAKER) (test 3.6 meq/L 3.5-5.1 qkqp=943) CHLORIDE (BEAKER) (test 101 meq/L 98-107 uesq=027) CO2 (BEAKER) (test 25 meq/L 22-29 etcc=546) BLOOD UREA NITROGEN 18 mg/dL 7-21 (BEAKER) (test grda=568) CREATININE (BEAKER) (test 1.07 mg/dL 0.57-1.25 xaqh=254) GLUCOSE RANDOM (BEAKER) 188 mg/dL 70-105 (test hleu=837) CALCIUM (BEAKER) (test 8.8 mg/dL 8.4-10.2 aebn=543) EGFR (BEAKER) (test 73 mL/min/1.73 sq m ESTIMATED GFR IS NOT msoo=9871) ACCURATE CREATININE CLEARANCE IN PREDICTING GLOMERULAR FILTRATION RATE. ESTIMATED GFR IS NOT APPLICABLE FOR DIALYSIS PATIENTS. POCT-GLUCOSE [id number] 22:12:00 Test Item Value Reference Range Comments POC-GLUCOSE METER (BEAKER) 238 mg/dL 70-110 TESTED AT [address] (test ewad=9812) [place] [id number] POCT-GLUCOSE [id number] 17:25:00 Test Item Value Reference Range Comments POC-GLUCOSE METER (BEAKER) 102 mg/dL 70-110 TESTED AT [address] (test hcdw=4378) [place] [address] URINALYSIS W/ [id number] 12:50:00 Test Item Value Reference Range Comments COLOR (BEAKER) (test dzfy=309) Colorless CLARITY (BEAKER) (test gvet=276) Clear SPECIFIC GRAVITY UA (BEAKER) (test uqyv=380) 1.002 1.001-1.035 PH UA (BEAKER) (test xijf=021) 6.5 5.0-8.0 PROTEIN UA (BEAKER) (test punn=542) Negative Negative GLUCOSE UA (BEAKER) (test evvl=896) Negative Negative KETONES UA (BEAKER) (test vnav=300) Negative Negative BILIRUBIN UA (BEAKER) (test bafc=202) Negative Negative BLOOD UA (BEAKER) (test rgib=876) Negative Negative NITRITE UA (BEAKER) (test adas=758) Negative Negative LEUKOCYTE ESTERASE UA (BEAKER) (test vvxn=764) Negative Negative UROBILINOGEN UA (BEAKER) (test rduy=172) 0.2 mg/dL 0.2-1.0 RBC UA (BEAKER) (test zlra=272) 0 /HPF WBC UA (BEAKER) (test zshl=481) < /HPF SOURCE(BEAKER) (test txqm=2732) POCT-GLUCOSE [id number] 12:04:00 Test Item Value Reference Range Comments POC-GLUCOSE METER (BEAKER) 226 mg/dL 70-110 TESTED AT [place] [address] [facility] (test otby=3067) [facility] [address] POCT-GLUCOSE [id number] 08:00:00 Test Item Value Reference Range Comments POC-GLUCOSE METER (BEAKER) 300 mg/dL 70-110 TESTED AT [facility] [address] [facility] (test reyv=3866) [facility] [address] BASIC METABOLIC [id number] 06:50:00 Test Item Value Reference Range Comments SODIUM (BEAKER) (test 134 meq/L 136-145 ssxk=764) POTASSIUM (BEAKER) (test 4.0 meq/L 3.5-5.1 otek=312) CHLORIDE (BEAKER) (test 98 meq/L 98-107 ihye=853) CO2 (BEAKER) (test 26 meq/L 22-29 issx=754) BLOOD UREA NITROGEN 18 mg/dL 7-21 (BEAKER) (test rxpr=162) CREATININE (BEAKER) (test 1.25 mg/dL 0.57-1.25 wynb=230) GLUCOSE RANDOM (BEAKER) 349 mg/dL 70-105 (test kgev=635) CALCIUM (BEAKER) (test 8.9 mg/dL 8.4-10.2 iaxm=550) EGFR (BEAKER) (test 61 mL/min/1.73 sq m ESTIMATED GFR IS NOT axvq=0038) ACCURATE CREATININE CLEARANCE IN PREDICTING GLOMERULAR FILTRATION RATE. ESTIMATED GFR IS NOT APPLICABLE FOR DIALYSIS PATIENTS. CBC W/PLT COUNT & AUTO [id number] 06:01:00 Test Item Value Reference Range Comments WHITE BLOOD CELL COUNT (BEAKER) (test ouno=848) 6.6 K/ L 4.0-10.0 RED BLOOD CELL COUNT (BEAKER) (test cnpg=195) 4.79 M/ L 4.20-5.80 HEMOGLOBIN (BEAKER) (test xihm=949) 14.1 GM/DL 13.0-16.8 HEMATOCRIT (BEAKER) (test jvej=406) 42.0 % 40.0-50.0 MEAN CORPUSCULAR VOLUME (BEAKER) (test wmtu=128) 87.7 fL 82.0-98.0 MEAN CORPUSCULAR HEMOGLOBIN (BEAKER) (test 29.5 pg 27.0-33.0 cqvp=549) MEAN CORPUSCULAR HEMOGLOBIN CONC (BEAKER) (test 33.6 GM/DL 32.0-36.0 apse=386) RED CELL DISTRIBUTION WIDTH (BEAKER) (test 14.9 % 10.3-14.2 eaqo=108) PLATELET COUNT (BEAKER) (test ldwc=233) 157 K/CU MM 150-430 MEAN PLATELET VOLUME (BEAKER) (test wddp=484) 9.0 fL 6.5-10.5 NUCLEATED RED BLOOD CELLS (BEAKER) (test 0 /100 WBC 0-0 tgyj=216) NEUTROPHILS RELATIVE PERCENT (BEAKER) (test 67 % ojus=008) LYMPHOCYTES RELATIVE PERCENT (BEAKER) (test 23 % pjfu=858) MONOCYTES RELATIVE PERCENT (BEAKER) (test 7 % gjnk=917) EOSINOPHILS RELATIVE PERCENT (BEAKER) (test 3 % tpbi=146) BASOPHILS RELATIVE PERCENT (BEAKER) (test 0 % wvco=693) NEUTROPHILS ABSOLUTE COUNT (BEAKER) (test 4.44 K/ L 1.80-8.00 casj=127) LYMPHOCYTES ABSOLUTE COUNT (BEAKER) (test 1.51 K/ L 1.48-4.50 cjne=653) MONOCYTES ABSOLUTE COUNT (BEAKER) (test 0.43 K/ L 0.00-1.30 tpuq=293) EOSINOPHILS ABSOLUTE COUNT (BEAKER) (test 0.21 K/ L 0.00-0.50 rrtd=195) BASOPHILS ABSOLUTE COUNT (BEAKER) (test 0.03 K/ L 0.00-0.20 xuwc=734) 0.00POCT-GLUCOSE [id number] 21:25:00 Test Item Value Reference Range Comments POC-GLUCOSE METER (BEAKER) 279 mg/dL 70-110 TESTED AT [address] (test kwpj=0687) [facility] [address] HEMOGLOBIN [id number] 21:13:00 Test Item Value Reference Range Comments HEMOGLOBIN A1C (BEAKER) (test jmoc=052) 10.7 % 4.3-6.1 CBC W/PLT COUNT & AUTO [id number] 20:47:00 Test Item Value Reference Range Comments WHITE BLOOD CELL COUNT (BEAKER) (test airi=606) 7.3 K/ L 4.0-10.0 RED BLOOD CELL COUNT (BEAKER) (test vhbw=108) 5.25 M/ L 4.20-5.80 HEMOGLOBIN (BEAKER) (test kriz=940) 15.7 GM/DL 13.0-16.8 HEMATOCRIT (BEAKER) (test riuz=151) 46.0 % 40.0-50.0 MEAN CORPUSCULAR VOLUME (BEAKER) (test tlrp=435) 87.7 fL 82.0-98.0 MEAN CORPUSCULAR HEMOGLOBIN (BEAKER) (test 30.0 pg 27.0-33.0 rccs=504) MEAN CORPUSCULAR HEMOGLOBIN CONC (BEAKER) (test 34.2 GM/DL 32.0-36.0 aaaw=359) RED CELL DISTRIBUTION WIDTH (BEAKER) (test 13.8 % 10.3-14.2 uikk=441) PLATELET COUNT (BEAKER) (test ezrx=577) 166 K/CU MM 150-430 MEAN PLATELET VOLUME (BEAKER) (test jbiy=574) 8.3 fL 6.5-10.5 NUCLEATED RED BLOOD CELLS (BEAKER) (test 0 /100 WBC 0-0 pwcp=520) NEUTROPHILS RELATIVE PERCENT (BEAKER) (test 69 % dyit=596) LYMPHOCYTES RELATIVE PERCENT (BEAKER) (test 22 % cgaz=537) MONOCYTES RELATIVE PERCENT (BEAKER) (test 5 % mwkq=353) EOSINOPHILS RELATIVE PERCENT (BEAKER) (test 3 % lfai=172) BASOPHILS RELATIVE PERCENT (BEAKER) (test 0 % koel=079) NEUTROPHILS ABSOLUTE COUNT (BEAKER) (test 5.04 K/ L 1.80-8.00 yewg=475) LYMPHOCYTES ABSOLUTE COUNT (BEAKER) (test 1.63 K/ L 1.48-4.50 oqef=495) MONOCYTES ABSOLUTE COUNT (BEAKER) (test 0.40 K/ L 0.00-1.30 lqzd=389) EOSINOPHILS ABSOLUTE COUNT (BEAKER) (test 0.22 K/ L 0.00-0.50 fozi=416) BASOPHILS ABSOLUTE COUNT (BEAKER) (test 0.01 K/ L 0.00-0.20 ychd=445) 0.00POCT-GLUCOSE [id number] 18:31:00 Test Item Value Reference Range Comments POC-GLUCOSE METER (BEAKER) 205 mg/dL 70-110 TESTED AT [facility] [address] [facility] (test idmw=0322) [facility] [address]
[2019-04-01] MEDS ORDERED: HYDROCODONE/APAP 10/325 TAB ONE (23:03)
--- NOTE | 2019-04-01 23:51 | ER ---
Nurse's Notes [facility] Name: Ramirez Chaudhari Age: 53 yrs Sex: Male : 1965 Arrival Date: 04/01/2019 Time: 22:06 Bed 17 Private MD: Diagnosis: Hydrocele, unspecified-testicular pain Presentation: 04/01 22:21 Presenting complaint: Patient states: C/O right testicular pain that started today. Pt wh states right testicle started to swell today. Accompanying symptoms of chills. Transition of care: patient was not received from another setting of care. Onset of symptoms was April 01, 2019. Risk Assessment: Do you want to hurt yourself or someone else? Patient reports no desire to harm self or others. Initial Sepsis Screen: Does the patient meet any 2 criteria? HR > 90 bpm. Does the patient have a suspected source of infection? Yes: Other: Swollen testicle. Care prior to arrival: None. 22:21 Method Of Arrival: Wheelchair 22:21 Acuity: NOHEMI 3 wh Historical: - Allergies: 22:33 Ibuprofen; wh 22:33 metformin; wh - Home Meds: 22:33 Colcrys 0.6 mg Oral tab 1 tab bid prn gout [Active]; Levemir 46 units subcutaneous wh twice a day [Active]; levothyroxine 75 mcg tab 1 tab once daily [Active]; Novolog 22 units Sub-Q before meals [Active]; lisinopril 20 mg Oral tab 1 tab once daily [Active]; furosemide 20 mg Oral tab 1 tab once daily [Active]; - PMHx: 22:33 ADD/ADHD; Diabetes - IDDM; GERD; Gout; High Cholesterol; Hydrocele Left Testicle; wh Hypertension; Hypothyroidism; Migraines; Paraplegia; Renal Disease; Spinal Stroke; - Immunization history:: Adult Immunizations not up to date. - Coronavirus screen:: The patient has NOT traveled to [place], [place], or [place] in the past 14 days. - Social history:: Smoking status: Patient/guardian denies using. - Ebola Screening: : Patient negative for fever greater than or equal to 101.5 degrees Fahrenheit, and additional compatible Ebola Virus Disease symptoms Patient denies exposure to infectious person. Screenin:34 Abuse screen: Denies threats or abuse. Denies injuries from another. Nutritional wh screening: No deficits noted. Tuberculosis screening: No symptoms or risk factors identified. Fall Risk None identified. Assessment: 22:35 General: Appears in no apparent distress. Behavior is calm, cooperative, appropriate for age. Pain: Complains of pain in right testicle Pain does not radiate. Pain currently is 9 out of 10 on a pain scale. Quality of pain is described as aching, Pain began suddenly. Neuro: Level of Consciousness is awake, alert, obeys commands, Oriented to person, place, time, situation, Appropriate for age. Cardiovascular: Heart tones S1 S2. Respiratory: Airway is patent Respiratory effort is even, unlabored, Respiratory pattern is regular, symmetrical, Breath sounds are clear bilaterally. GI: Abdomen is flat, non-distended. : Reports pain in right testicle. EENT: No signs and/or symptoms were reported regarding the EENT system. Derm: Skin is intact. Musculoskeletal: Pt Hx of Paraplegia. 04/02 00:07 Reassessment: Patient appears in no apparent distress at this time. No changes from previously documented assessment. Patient and/or family updated on plan of care and expected duration. Pain level reassessed. Patient is alert, oriented x 3, equal unlabored respirations, skin warm/dry/pink. Patient states feeling better. Patient states symptoms have improved. Vital Signs: 04/01 22:25 BP 137 / 94; Pulse 100; Resp 18; Temp 97.2; Pulse Ox 99% ; Weight 104.33 kg; Height 5 wh ft. 4 in. (162.56 cm); Pain 9/10; 04/02 00:00 BP 158 / 86; Pulse 99; Resp 18; Pulse Ox 95% on R/A; 04/01 22:25 Body Mass Index 39.48 (104.33 kg, 162.56 cm) ED Course: 04/01 22:06 Patient arrived in ED. jg7 22:12 Fatoumata Mendez is Primary Nurse. 22:22 Hank Saunders MD is Attending Physician. [facility] 22:25 Triage completed. 22:34 Patient has correct armband on for positive identification. Bed in low position. Call light in reach. Side rails up X 1. Pulse ox on. NIBP on. 22:35 Arm band placed on right wrist. 23:26 US Scrotum Testicles In Process Unspecified. EDVA 23:49 Kaitlin Doan MD is Referral Physician. [facility] 04/02 00:20 No provider procedures requiring assistance completed. Patient did not have IV access during this emergency room visit. 00:30 Primary Nurse role handed off by Fatoumata Mendez sp Administered Medications: 04/01 23:03 Drug: [place] 10 mg-325 mg 1 tabs Route: PO; 04/02 00:20 Follow up: Response: No adverse reaction; Pain is decreased; RASS: Alert and Calm (0) 00:05 Drug: Cipro 500 mg Route: PO; 00:19 Follow up: Response: No adverse reaction Outcome: 04/01 23:50 Discharge ordered by . [facility] 04/02 00:20 Discharged to home via wheelchair, with family. Condition: stable Discharge instructions given to patient, family, Instructed on discharge instructions, follow up and referral plans. no drinking with medication, no driving heavy equipment, medication usage, POC Demonstrated understanding of instructions, follow-up care, medications, POC Prescriptions given X 2. 00:21 Patient left the ED. 00:31 Patient left the ED. 00:37 Patient left the ED. sp Signatures: Dispatcher [employer] [facility] Hank Saunders MD MD cha [place], Shawna sp [place], Winsy Cathie Sandra [id number]
--- NOTE | 2019-04-01 23:51 | EDPHYS ---
Physician Documentation [facility] Name: Ramirez Chaudhari Age: 53 yrs Sex: Male : 1965 Arrival Date: 04/01/2019 Time: 22:06 Bed 17 Private MD: ED Physician Hank Saunders HPI: 04/01 22:41 This 53 yrs old Male presents to ER via Wheelchair with complaints of himanshu Testicular Swelling. 22:41 The patient presents with scrotal pain, swelling, that is moderate. Onset: The himanshu symptoms/episode began/occurred 3 day(s) ago. Modifying factors: The symptoms are alleviated by remaining still, the symptoms are aggravated by nothing. Associated signs and symptoms: The patient has no apparent associated signs or symptoms. Severity of symptoms: At their worst the symptoms were mild, moderate, in the emergency department the symptoms are unchanged. The patient has not experienced similar symptoms in the past. Historical: - Allergies: 22:33 Ibuprofen; wh 22:33 metformin; wh - Home Meds: 22:33 Colcrys 0.6 mg Oral tab 1 tab bid prn gout [Active]; Levemir 46 units subcutaneous wh twice a day [Active]; levothyroxine 75 mcg tab 1 tab once daily [Active]; Novolog 22 units Sub-Q before meals [Active]; lisinopril 20 mg Oral tab 1 tab once daily [Active]; furosemide 20 mg Oral tab 1 tab once daily [Active]; - PMHx: 22:33 ADD/ADHD; Diabetes - IDDM; GERD; Gout; High Cholesterol; Hydrocele Left Testicle; wh Hypertension; Hypothyroidism; Migraines; Paraplegia; Renal Disease; Spinal Stroke; - Immunization history:: Adult Immunizations not up to date. - Coronavirus screen:: The patient has NOT traveled to [place], [place], or [place] in the past 14 days. - Social history:: Smoking status: Patient/guardian denies using. - Ebola Screening: : Patient negative for fever greater than or equal to 101.5 degrees Fahrenheit, and additional compatible Ebola Virus Disease symptoms Patient denies exposure to infectious person. ROS: 22:42 Constitutional: Negative for fever, chills, and weight loss, Eyes: Negative for injury, himanshu pain, redness, and discharge, ENT: Negative for injury, pain, and discharge, Neck: Negative for injury, pain, and swelling, Cardiovascular: Negative for chest pain, palpitations, and edema, Respiratory: Negative for shortness of breath, cough, wheezing, and pleuritic chest pain, Abdomen/GI: Negative for abdominal pain, nausea, vomiting, diarrhea, and constipation, Back: Negative for injury and pain, Skin: Negative for injury, rash, and discoloration, Neuro: Negative for headache, weakness, numbness, tingling, and seizure, Psych: Negative for depression, anxiety, suicide ideation, homicidal ideation, and hallucinations, Allergy/Immunology: Negative for hives, rash, and allergies, Endocrine: Negative for neck swelling, polydipsia, polyuria, polyphagia, and marked weight changes. 22:42 : Positive for testicular pain of the right testicle. Exam: 22:42 Constitutional: This is a well developed, well nourished patient who is awake, alert, himanshu and in no acute distress. Head/Face: Normocephalic, atraumatic. Eyes: Pupils equal round and reactive to light, extra-ocular motions intact. Lids and lashes normal. Conjunctiva and sclera are non-icteric and not injected. Cornea within normal limits. Periorbital areas with no swelling, redness, or edema. ENT: Nares patent. No nasal discharge, no septal abnormalities noted. Tympanic membranes are normal and external auditory canals are clear. Oropharynx with no redness, swelling, or masses, exudates, or evidence of obstruction, uvula midline. Mucous membranes moist. Neck: Trachea midline, no thyromegaly or masses palpated, and no cervical lymphadenopathy. Supple, full range of motion without nuchal rigidity, or vertebral point tenderness. No Meningismus. Chest/axilla: Normal chest wall appearance and motion. Nontender with no deformity. No lesions are appreciated. Cardiovascular: Regular rate and rhythm with a normal S1 and S2. No gallops, murmurs, or rubs. Normal PMI, no JVD. No pulse deficits. Respiratory: Lungs have equal breath sounds bilaterally, clear to auscultation and percussion. No rales, rhonchi or wheezes noted. No increased work of breathing, no retractions or nasal flaring. Abdomen/GI: Soft, non-tender, with normal bowel sounds. No distension or tympany. No guarding or rebound. No evidence of tenderness throughout. Back: No spinal tenderness. No costovertebral tenderness. Full range of motion. Skin: Warm, dry with normal turgor. Normal color with no rashes, no lesions, and no evidence of cellulitis. MS/ Extremity: Pulses equal, no cyanosis. Neurovascular intact. Full, normal range of motion. Neuro: Awake and alert, GCS 15, oriented to person, place, time, and situation. Cranial nerves II-XII grossly intact. Motor strength 5/5 in all extremities. Sensory grossly intact. Cerebellar exam normal. Normal gait. Psych: Awake, alert, with orientation to person, place and time. Behavior, mood, and affect are within normal limits. 22:42 : CVA tenderness, is absent, Male external genitalia: swelling, tenderness, of the right testicle is noted, Bladder: is normal, Rectal exam: is normal. Vital Signs: 22:25 BP 137 / 94; Pulse 100; Resp 18; Temp 97.2; Pulse Ox 99% ; Weight 104.33 kg; Height 5 wh ft. 4 in. (162.56 cm); Pain 9/10; 04/02 00:00 BP 158 / 86; Pulse 99; Resp 18; Pulse Ox 95% on R/A; 04/01 22:25 Body Mass Index 39.48 (104.33 kg, 162.56 cm) MDM: 04/01 22:22 Patient medically screened. [facility] 22:42 Data reviewed: vital signs, nurses notes, lab test result(s), radiologic studies, [facility] ultrasound. 04/01 22:41 Order name: Urine Culture [facility] 04/02 00:36 Order name: Urine Dipstick--Ancillary (enter results) 04/01 22:41 Order name: Urine Dipstick-Ancillary (obtain specimen); Complete Time: 23:02 [facility] 04/01 22:41 Order name: Scrotum Testicles [facility] Administered Medications: 23:03 Drug: Aurora 10 mg-325 mg 1 tabs Route: PO; 04/02 00:20 Follow up: Response: No adverse reaction; Pain is decreased; RASS: Alert and Calm (0) 00:05 Drug: Cipro 500 mg Route: PO; 00:19 Follow up: Response: No adverse reaction Disposition: 04/01/19 23:50 Discharged to Home. Impression: Hydrocele, unspecified - testicular pain. - Condition is Stable. - Discharge Instructions: Type 1 Diabetes Mellitus, Diagnosis, Adult, Testicular Self-Exam, Hydrocele, Adult, Type 1 Diabetes Mellitus, Self Care, Adult, Type 1 Diabetes Mellitus, Diagnosis, Adult, [id number], Type 1 Diabetes Mellitus, Self Care, Adult, [id number]. - Prescriptions for Tylenol- Codeine #3 300-30 mg Oral Tablet - take 2 tablets by ORAL route every 6 hours As needed; 26 tablet. Cipro 500 mg Oral Tablet - take 1 tablet by ORAL route every 12 hours for 7 days; 14 tablet. - Medication Reconciliation Form, Thank You Letter, Antibiotic Education, Prescription Opioid Use form. - Follow up: Private Physician; When: 2 - 3 days; Reason: Recheck today's complaints, Continuance of care, Re-evaluation by your physician. Follow up: Kaitlin Doan MD; When: 2 - 3 days; Reason: Recheck today's complaints, Re-evaluation by your physician. - Problem is new. - Symptoms have improved. Signatures: Dispatcher [employer] Hank Swartz MD MD cha [place], Shawna sp [place], [place] wh Corrections: (The following items were deleted from the chart) 00:21 04/01 23:50 04/01/2019 23:50 Discharged to Home. Impression: Hydrocele, unspecified - wh testicular pain. Condition is Stable. Forms are Medication Reconciliation Form, Thank You Letter, Antibiotic Education, Prescription Opioid Use. Follow up: Private Physician; When: 2 - 3 days; Reason: Recheck today's complaints, Continuance of care, Re-evaluation by your physician. Follow up: Kaitlin Doan; When: 2 - 3 days; Reason: Recheck today's complaints, Re-evaluation by your physician. Problem is new. Symptoms have improved. himanshu 04/02 00:31 00:21 04/01/2019 23:50 Discharged to Home. Impression: Hydrocele, unspecified - wh testicular pain. Condition is Stable. Discharge Instructions: Testicular Self-Exam, Hydrocele, Adult, Type 1 Diabetes Mellitus, Diagnosis, Adult, Type 1 Diabetes Mellitus, Self Care, Adult, Type 1 Diabetes Mellitus, Diagnosis, Adult, [id number], Type 1 Diabetes Mellitus, Self Care, Adult, [id number]. Prescriptions for Tylenol-Codeine #3 300-30 mg Oral Tablet - take 2 tablets by ORAL route every 6 hours As needed; 26 tablet, Cipro 500 mg Oral Tablet - take 1 tablet by ORAL route every 12 hours for 7 days; 14 tablet. and Forms are Medication Reconciliation Form, Thank You Letter, Antibiotic Education, Prescription Opioid Use. Follow up: Private Physician; When: 2 - 3 days; Reason: Recheck today's complaints, Continuance of care, Re-evaluation by your physician. Follow up: Kaitlin Doan; When: 2 - 3 days; Reason: Recheck today's complaints, Re-evaluation by your physician. Problem is new. Symptoms have improved. 00:37 00:31 04/01/2019 23:50 Discharged to Home. Impression: Hydrocele, unspecified - sp testicular pain. Condition is Stable. Discharge Instructions: Testicular Self-Exam, Hydrocele, Adult, Type 1 Diabetes Mellitus, Diagnosis, Adult, Type 1 Diabetes Mellitus, Self Care, Adult, Type 1 Diabetes Mellitus, Diagnosis, Adult, [id number], Type 1 Diabetes Mellitus, Self Care, Adult, [id number]. Prescriptions for Tylenol-Codeine #3 300-30 mg Oral Tablet - take 2 tablets by ORAL route every 6 hours As needed; 26 tablet, Cipro 500 mg Oral Tablet - take 1 tablet by ORAL route every 12 hours for 7 days; 14 tablet. and Forms are Medication Reconciliation Form, Thank You Letter, Antibiotic Education, Prescription Opioid Use. Follow up: Private Physician; When: 2 - 3 days; Reason: Recheck today's complaints, Continuance of care, Re-evaluation by your physician. Follow up: Kaitlin Doan; When: 2 - 3 days; Reason: Recheck today's complaints, Re-evaluation by your physician. Problem is new. Symptoms have improved.
[2019-04-02] MEDS ORDERED: CIPROFLOXACIN HCL 500 MG TAB ONE (00:04)
[2019-04-02 00:42] LABS: Urine Blood 1+ (NEG); Urine Glucose 2+ (NEG); Urine Protein 2+ (NEG); Urine Specific Gravity 1.015 (1.005-1.030); Urine pH 5.5 (5.0-7.0)
[2019-04-02 01:09] VITALS: TEMP 97.2
[2019-04-02 01:10] VITALS: BP 158/86; O2SAT 95
--- NOTE | 2019-04-02 11:29 | RAD REPORT ---
EXAM DESCRIPTION: US - Scrotum Testicles - 04/01/2019 11:26 pm CLINICAL HISTORY: Swelling;Pain COMPARISON: Scrotum Testicles dated 08/15/2018 FINDINGS: The right testicle 3.8 x 3.2 x 3.0 cm. No intratesticular masses or evidence of testicular torsion. The left testicle 4.0 x 3.0 x 1.8 cm. No intratesticular masses or evidence of testicular torsion. Both epididymides are normal in size and appearance. Mild generalized scrotal wall thickening seen. IMPRESSION: No intratesticular mass or testicular torsion identified.
== END 2019-04-02 00:37 | disposition home or self-care (01) ==
LOC: ER 22:02
DX: N43.3 Hydrocele, unspecified (principal); E03.9 Hypothyroidism, unspecified; I10 Essential (primary) hypertension; E78.00 Pure hypercholesterolemia, unspecified; Z88.8 Allergy status to other drugs, medicaments and biological substances; N28.9 Disorder of kidney and ureter, unspecified; E11.9 Type 2 diabetes mellitus without complications; Z79.4 Long term (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
CPT/HCPCS: 76870; 81003; 87077; 87086; 87088; 87186; 99284

== ENCOUNTER 2019-11-12 21:22 | Emergency (ER) | payer OTHER ==
--- OUTSIDE RECORDS SUMMARY | 2019-11-12 21:25 | XMS REPORT | Continuity of Care Document ---
:[address] [facility] t Address [address] [place] [address] Care Team Providers Name Role Phone FAITH GOMEZ Attending Clinician Unavailable ILIANA GOMEZ Admitting Clinician Unavailable Problems Condition Condition Condition Status Onset Resolution Last Treating Co mments Source Name Details Category Date Date Treatment Clinician Date Epididymit Epididymit Disease Active [facility] is[facility] left 24 [facility] - 00:[facility]: Medical 00 Sharon DM2 DM2 Disease Active [facility] (diabetes (diabetes -24 [facility] - mellitus, mellitus, 00:00: Medi timothy type 2) type 2) 00 Center HTN HTN Disease Active [facility] (hypertens (hypertens 4-24 Cindy kes - ion) ion) 00:00: Medical 00 Sharon Hypothyroi Hypothyroi Disease Active [facility] 4-24 [facility] Medical 00 Center Allergies, Adverse Reactions, Alerts Allergy Allergy Status Severity Reaction(s) Onset Inactive Treating Comm ents Source Name Type Date Date Clinician Ibuprofe Propensi Active [facility] ty to 4-24 problems [facility] - adverse 00:00: Medical reaction 00 Sharon s Metformi Propensi Active Kidney [facility] ty to 4-24 problems [facility] - adverse 00:00: Medical reaction 00 Sharon s Family History Family Member Diagnosis Comments Start Date Stop Date Source Natural brother Kidney disease [facility] Natural mother Diabetes [facility] Natural sister Diabetes [facility] Social History Social Habit Start Date Stop Date Quantity Comments Source Sex Assigned At [facility] Smoking Status Start Date Stop Date Source Former smoker 2016-07-01 00:00:00 2016-07-01 00:00:00 [facility] Medications Ordered Filled Start Stop Current Ordering Indication Dosage Frequency Signature Comments Components Source Medication Medication Date Date Medication? Clinician (SIG) Name Name insulin Yes 36U Q.5D Inject 36 [facility] detemir 4-24 Units [facility] - (LEVEMIR) 17:52: subcutaneo Me dical 100 unit/mL 14 usly 2 Center (3 mL) InPn (two) injection times daily pen . insulin Yes 20U Inject 20 [facility] lispro 4-24 Units [facility] - (HUMALOG) 17:52: subcutaneo Me dical 100 unit/mL 14 usly 3 Center injection (three) times daily before meals Sliding scale starts at 20 units . colchicine Yes .6mg Take 0.[address] [facility] (COLCRYS) 4-24 mg by [facility] - 0.6 mg 17:52: mouth 2 Medical tablet 14 (two) Center times daily as needed As needed for gout . atenolol Yes 50mg QD Take [address] [facility] (TENORMIN) 4-24 by mouth [facility] - 50 MG 17:52: daily. Medical tablet 13 Center oxybutynin Yes 5mg [id number] Take [address] [facility] (DITROPAN) 4-24 [id number] by mouth 3 [facility] - 5 MG tablet 17:52: 3D (three) Med ical 13 times Center daily. pantoprazol Yes 40mg QD Take [address] [facility] e 4-24 by mouth [facility] - (PROTONIX) 17:52: daily Medica l 40 MG 13 Before Center tablet breakfast . levothyroxi Yes 75ug Take [address] ne 4-24 mcg by [facility] - (SYNTHROID, 17:52: mouth Medic al LEVOTHROID) 13 Every Center 75 MCG morning on tablet an empty stomach. Procedures This patient has no known procedures. Results Test Description Test Time Test Comments Results Result Comments Source BLOOD CULTURE 2016-07-07 14:28:00 Test Item Value Reference Range Interpretation Comme nts CULTURE (BEAKER) (test code = 1095) No growth in 5 days POCT-GLUCOSE [id number] 12:04:00 Test Item Value Reference Range Interpretation Comments POC-GLUCOSE METER 179 mg/dL 70-110 H TESTED AT [facility] 6720 (BEAKER) (test code = [place] 1538) [address] BASIC METABOLIC [id number] 09:51:00 Test Item Value Reference Range Interpretation Comments SODIUM (BEAKER) 137 meq/L 136-145 (test code = 381) POTASSIUM (BEAKER) 3.7 meq/L 3.5-5.1 (test code = 379) CHLORIDE (BEAKER) 102 meq/L 98-107 (test code = 382) CO2 (BEAKER) (test 25 meq/L 22-29 code = 355) BLOOD UREA NITROGEN 17 mg/dL 7-21 (BEAKER) (test code = 354) CREATININE (BEAKER) 1.04 mg/dL 0.57-1.25 (test code = 358) GLUCOSE RANDOM 195 mg/dL 70-105 H (BEAKER) (test code = 652) CALCIUM (BEAKER) 9.2 mg/dL 8.4-10.2 (test code = 697) EGFR (BEAKER) (test 76 mL/min/1.73 ESTIMA FAYE GFR IS code = 1092) sq m NOT ACCURATE CREATININE CLEARANCE IN PREDICTING GLOMERULAR FILTRATION RATE . ESTIMATED GFR I S NOT APPLICABLE FOR DIALYSIS PATIEN TS. CBC W/PLT COUNT & AUTO [id number] 09:20:00 Test Item Value Reference Range Interpretation Comments WHITE BLOOD CELL COUNT (BEAKER) 6.1 K/ L 4.0-10.0 (test code = 775) RED BLOOD CELL COUNT (BEAKER) 4.63 M/ L 4.20-5.80 (test code = 761) HEMOGLOBIN (BEAKER) (test code = 13.7 GM/DL 13.0-16.8 410) HEMATOCRIT (BEAKER) (test code = 39.8 % 40.0-50.0 L 411) MEAN CORPUSCULAR VOLUME (BEAKER) 85.9 fL 82.0-98.0 (test code = 753) MEAN CORPUSCULAR HEMOGLOBIN 29.6 pg 27.0-33.0 (BEAKER) (test code = 751) MEAN CORPUSCULAR HEMOGLOBIN CONC 34.5 GM/DL 32.0-36.0 (BEAKER) (test code = 752) RED CELL DISTRIBUTION WIDTH 14.8 % 10.3-14.2 H (BEAKER) (test code = 412) PLATELET COUNT (BEAKER) (test 143 K/CU MM 150-430 L code = 756) MEAN PLATELET VOLUME (BEAKER) 8.6 fL 6.5-10.5 (test code = 754) NUCLEATED RED BLOOD CELLS 0 /100 WBC 0-0 (BEAKER) (test code = 413) NEUTROPHILS RELATIVE PERCENT 71 % (BEAKER) (test code = 429) LYMPHOCYTES RELATIVE PERCENT 20 % (BEAKER) (test code = 430) MONOCYTES RELATIVE PERCENT 5 % (BEAKER) (test code = 431) EOSINOPHILS RELATIVE PERCENT 3 % (BEAKER) (test code = 432) BASOPHILS RELATIVE PERCENT 1 % (BEAKER) (test code = 437) NEUTROPHILS ABSOLUTE COUNT 4.31 K/ L 1.80-8.00 (BEAKER) (test code = 670) LYMPHOCYTES ABSOLUTE COUNT 1.23 K/ L 1.48-4.50 L (BEAKER) (test code = 414) MONOCYTES ABSOLUTE COUNT (BEAKER) 0.28 K/ L 0.00-1.30 (test code = 415) EOSINOPHILS ABSOLUTE COUNT 0.21 K/ L 0.00-0.50 (BEAKER) (test code = 416) BASOPHILS ABSOLUTE COUNT (BEAKER) 0.03 K/ L 0.00-0.20 (test code = 417) 0.00POCT-GLUCOSE [id number] 07:15:00 Test Item Value Reference Range Interpretation Comments POC-GLUCOSE METER 246 mg/dL 70-110 H TESTED AT [place] [address] ([facility]) (test code = [facility] 1538) [id number] POCT-GLUCOSE [id number] 21:12:00 Test Item Value Reference Range Interpretation Comments POC-GLUCOSE METER 89 mg/dL 70-110 TESTED AT [place] [address] ([facility]) (test code = [facility] [id number]) POCT-GLUCOSE [id number] 17:12:00 Test Item Value Reference Range Interpretation Comments POC-GLUCOSE METER 217 mg/dL 70-110 H TESTED AT [place] [address] ([facility]) (test code = [facility] 1538) [id number] URINE [id number] 12:07:00 Test Item Value Reference Range Interpretation Comments CULTURE (BEAKER) (test <10,000 col/mL skin code = 1095) candi POCT-GLUCOSE [id number] 11:30:00 Test Item Value Reference Range Interpretation Comments POC-GLUCOSE METER 205 mg/dL 70-110 H TESTED AT [facility] 67[address] (BEAKER) (test code = [place] 1538) [id number] POCT-GLUCOSE [id number] 07:36:00 Test Item Value Reference Range Interpretation Comments POC-GLUCOSE METER 195 mg/dL 70-110 H TESTED AT [facility] 67[address] (BEAKER) (test code = [facility] [place] 1538) [address] CBC W/PLT COUNT & AUTO [id number] 05:14:00 Test Item Value Reference Range Interpretation Comments WHITE BLOOD CELL COUNT (BEAKER) 6.7 K/ L 4.0-10.0 (test code = 775) RED BLOOD CELL COUNT (BEAKER) 4.40 M/ L 4.20-5.80 (test code = 761) HEMOGLOBIN (BEAKER) (test code = 13.3 GM/DL 13.0-16.8 410) HEMATOCRIT (BEAKER) (test code = 38.2 % 40.0-50.0 L 411) MEAN CORPUSCULAR VOLUME (BEAKER) 86.8 fL 82.0-98.0 (test code = 753) MEAN CORPUSCULAR HEMOGLOBIN 30.1 pg 27.0-33.0 (BEAKER) (test code = 751) MEAN CORPUSCULAR HEMOGLOBIN CONC 34.7 GM/DL 32.0-36.0 (BEAKER) (test code = 752) RED CELL DISTRIBUTION WIDTH 14.7 % 10.3-14.2 H (BEAKER) (test code = 412) PLATELET COUNT (BEAKER) (test 144 K/CU MM 150-430 L code = 756) MEAN PLATELET VOLUME (BEAKER) 9.0 fL 6.5-10.5 (test code = 754) NUCLEATED RED BLOOD CELLS 0 /100 WBC 0-0 (BEAKER) (test code = 413) NEUTROPHILS RELATIVE PERCENT 67 % (BEAKER) (test code = 429) LYMPHOCYTES RELATIVE PERCENT 25 % (BEAKER) (test code = 430) MONOCYTES RELATIVE PERCENT 5 % (BEAKER) (test code = 431) EOSINOPHILS RELATIVE PERCENT 2 % (BEAKER) (test code = 432) BASOPHILS RELATIVE PERCENT 0 % (BEAKER) (test code = 437) NEUTROPHILS ABSOLUTE COUNT 4.52 K/ L 1.80-8.00 (BEAKER) (test code = 670) LYMPHOCYTES ABSOLUTE COUNT 1.70 K/ L 1.48-4.50 (BEAKER) (test code = 414) MONOCYTES ABSOLUTE COUNT (BEAKER) 0.32 K/ L 0.00-1.30 (test code = 415) EOSINOPHILS ABSOLUTE COUNT 0.16 K/ L 0.00-0.50 (BEAKER) (test code = 416) BASOPHILS ABSOLUTE COUNT (BEAKER) 0.03 K/ L 0.00-0.20 (test code = 417) 0.00BASIC METABOLIC [id number] 05:14:00 Test Item Value Reference Range Interpretation Comments SODIUM (BEAKER) 134 meq/L 136-145 L (test code = 381) POTASSIUM (BEAKER) 4.2 meq/L 3.5-5.1 (test code = 379) CHLORIDE (BEAKER) 101 meq/L 98-107 (test code = 382) CO2 (BEAKER) (test 24 meq/L 22-29 code = 355) BLOOD UREA NITROGEN 20 mg/dL 7-21 (BEAKER) (test code = 354) CREATININE (BEAKER) 1.16 mg/dL 0.57-1.25 (test code = 358) GLUCOSE RANDOM 216 mg/dL 70-105 H (BEAKER) (test code = 652) CALCIUM (BEAKER) 8.8 mg/dL 8.4-10.2 (test code = 697) EGFR (BEAKER) (test 67 mL/min/1.73 ESTIMA FAYE GFR IS code = 1092) sq m NOT ACCURATE CREATININE CLEARANCE IN PREDICTING GLOMERULAR FILTRATION RATE . ESTIMATED GFR I S NOT APPLICABLE FOR DIALYSIS PATIEN TS. POCT-GLUCOSE [id number] 21:04:00 Test Item Value Reference Range Interpretation Comments POC-GLUCOSE METER 178 mg/dL 70-110 H TESTED AT [facility] 6720 (BEAKER) (test code = [place] 1538) [id number] POCT-GLUCOSE [id number] 17:07:00 Test Item Value Reference Range Interpretation Comments POC-GLUCOSE METER 88 mg/dL 70-110 TESTED AT [facility] 67[address] (BEAKER) (test code = [place] [address] 1538) POCT-GLUCOSE [id number] 12:30:00 Test Item Value Reference Range Interpretation Comments POC-GLUCOSE METER 107 mg/dL 70-110 TESTED AT [place] [address] (BEAKER) (test code = ADOLFO Willett [facility] 1538) [id number] POCT-GLUCOSE [id number] 07:46:00 Test Item Value Reference Range Interpretation Comments POC-GLUCOSE METER 169 mg/dL 70-110 H TESTED AT [place] [address] (BEAKER) (test code = ADOL[place] [facility] 1538) [id number] CBC W/PLT COUNT & AUTO [id number] 07:42:00 Test Item Value Reference Range Interpretation Comments WHITE BLOOD CELL COUNT (BEAKER) 6.5 K/ L 4.0-10.0 (test code = 775) RED BLOOD CELL COUNT (BEAKER) 4.57 M/ L 4.20-5.80 (test code = 761) HEMOGLOBIN (BEAKER) (test code = 13.4 GM/DL 13.0-16.8 410) HEMATOCRIT (BEAKER) (test code = 40.4 % 40.0-50.0 411) MEAN CORPUSCULAR VOLUME (BEAKER) 88.3 fL 82.0-98.0 (test code = 753) MEAN CORPUSCULAR HEMOGLOBIN 29.3 pg 27.0-33.0 (BEAKER) (test code = 751) MEAN CORPUSCULAR HEMOGLOBIN CONC 33.2 GM/DL 32.0-36.0 (BEAKER) (test code = 752) RED CELL DISTRIBUTION WIDTH 13.8 % 10.3-14.2 (BEAKER) (test code = 412) PLATELET COUNT (BEAKER) (test 150 K/CU MM 150-430 code = 756) MEAN PLATELET VOLUME (BEAKER) 9.0 fL 6.5-10.5 (test code = 754) NUCLEATED RED BLOOD CELLS 0 /100 WBC 0-0 (BEAKER) (test code = 413) NEUTROPHILS RELATIVE PERCENT 64 % (BEAKER) (test code = 429) LYMPHOCYTES RELATIVE PERCENT 26 % (BEAKER) (test code = 430) MONOCYTES RELATIVE PERCENT 7 % (BEAKER) (test code = 431) EOSINOPHILS RELATIVE PERCENT 3 % (BEAKER) (test code = 432) BASOPHILS RELATIVE PERCENT 0 % (BEAKER) (test code = 437) NEUTROPHILS ABSOLUTE COUNT 4.13 K/ L 1.80-8.00 (BEAKER) (test code = 670) LYMPHOCYTES ABSOLUTE COUNT 1.66 K/ L 1.48-4.50 (BEAKER) (test code = 414) MONOCYTES ABSOLUTE COUNT (BEAKER) 0.44 K/ L 0.00-1.30 (test code = 415) EOSINOPHILS ABSOLUTE COUNT 0.21 K/ L 0.00-0.50 (BEAKER) (test code = 416) BASOPHILS ABSOLUTE COUNT (BEAKER) 0.03 K/ L 0.00-0.20 (test code = 417) 0.00BASIC METABOLIC [id number] 06:13:00 Test Item Value Reference Range Interpretation Comments SODIUM (BEAKER) 136 meq/L 136-145 (test code = 381) POTASSIUM (BEAKER) 3.6 meq/L 3.5-5.1 (test code = 379) CHLORIDE (BEAKER) 101 meq/L 98-107 (test code = 382) CO2 (BEAKER) (test 25 meq/L 22-29 code = 355) BLOOD UREA NITROGEN 18 mg/dL 7-21 (BEAKER) (test code = 354) CREATININE (BEAKER) 1.07 mg/dL 0.57-1.25 (test code = 358) GLUCOSE RANDOM 188 mg/dL 70-105 H (BEAKER) (test code = 652) CALCIUM (BEAKER) 8.8 mg/dL 8.4-10.2 (test code = 697) EGFR (BEAKER) (test 73 mL/min/1.73 ESTIMA FAYE GFR IS code = 1092) sq m NOT ACCURATE CREATININE CLEARANCE IN PREDICTING GLOMERULAR FILTRATION RATE . ESTIMATED GFR I S NOT APPLICABLE FOR DIALYSIS PATIEN TS. POCT-GLUCOSE [id number] 22:12:00 Test Item Value Reference Range Interpretation Comments POC-GLUCOSE METER 238 mg/dL 70-110 H TESTED AT [facility] 6720 (BEAKER) (test code = [place] 1538) [id number] POCT-GLUCOSE [id number] 17:25:00 Test Item Value Reference Range Interpretation Comments POC-GLUCOSE METER 102 mg/dL 70-110 TESTED AT [facility] 67[address] (BEAKER) (test code = [place] 1538) [id number] URINALYSIS W/ [id number] 12:50:00 Test Item Value Reference Range Interpretation Comments COLOR (BEAKER) (test code = 470) Colorless CLARITY (BEAKER) (test code = 469) Clear SPECIFIC GRAVITY UA (BEAKER) (test 1.002 1.001-1.035 code = 468) PH UA (BEAKER) (test code = 467) 6.5 5.0-8.0 PROTEIN UA (BEAKER) (test code = Negative Negative 464) GLUCOSE UA (BEAKER) (test code = Negative Negative 365) KETONES UA (BEAKER) (test code = Negative Negative 371) BILIRUBIN UA (BEAKER) (test code = Negative Negative 462) BLOOD UA (BEAKER) (test code = 461) Negative Negative NITRITE UA (BEAKER) (test code = Negative Negative 465) LEUKOCYTE ESTERASE UA (BEAKER) Negative Negative (test code = 466) UROBILINOGEN UA (BEAKER) (test code 0.2 mg/dL 0.2-1.0 = 463) RBC UA (BEAKER) (test code = 519) 0 /HPF WBC UA (BEAKER) (test code = 520) < /HPF SOURCE(BEAKER) (test code = 2795) POCT-GLUCOSE [id number] 12:04:00 Test Item Value Reference Range Interpretation Comments POC-GLUCOSE METER 226 mg/dL 70-110 H TESTED AT [place] [id number] (BEAKER) (test code = [place] 1538) [address] POCT-GLUCOSE [id number] 08:00:00 Test Item Value Reference Range Interpretation Comments POC-GLUCOSE METER 300 mg/dL 70-110 H TESTED AT [place] [address] (BEAKER) (test code = ADOLFO [place] [facility] 1538) [address] BASIC METABOLIC [id number] 06:50:00 Test Item Value Reference Range Interpretation Comments SODIUM (BEAKER) 134 meq/L 136-145 L (test code = 381) POTASSIUM (BEAKER) 4.0 meq/L 3.5-5.1 (test code = 379) CHLORIDE (BEAKER) 98 meq/L 98-107 (test code = 382) CO2 (BEAKER) (test 26 meq/L 22-29 code = 355) BLOOD UREA NITROGEN 18 mg/dL 7-21 (BEAKER) (test code = 354) CREATININE (BEAKER) 1.25 mg/dL 0.57-1.25 (test code = 358) GLUCOSE RANDOM 349 mg/dL 70-105 H (BEAKER) (test code = 652) CALCIUM (BEAKER) 8.9 mg/dL 8.4-10.2 (test code = 697) EGFR (BEAKER) (test 61 mL/min/1.73 ESTIMA FAYE GFR IS code = 1092) sq m NOT ACCURATE CREATININE CLEARANCE IN PREDICTING GLOMERULAR FILTRATION RATE . ESTIMATED GFR I S NOT APPLICABLE FOR DIALYSIS PATIEN TS. CBC W/PLT COUNT & AUTO [id number] 06:01:00 Test Item Value Reference Range Interpretation Comments WHITE BLOOD CELL COUNT (BEAKER) 6.6 K/ L 4.0-10.0 (test code = 775) RED BLOOD CELL COUNT (BEAKER) 4.79 M/ L 4.20-5.80 (test code = 761) HEMOGLOBIN (BEAKER) (test code = 14.1 GM/DL 13.0-16.8 410) HEMATOCRIT (BEAKER) (test code = 42.0 % 40.0-50.0 411) MEAN CORPUSCULAR VOLUME (BEAKER) 87.7 fL 82.0-98.0 (test code = 753) MEAN CORPUSCULAR HEMOGLOBIN 29.5 pg 27.0-33.0 (BEAKER) (test code = 751) MEAN CORPUSCULAR HEMOGLOBIN CONC 33.6 GM/DL 32.0-36.0 (BEAKER) (test code = 752) RED CELL DISTRIBUTION WIDTH 14.9 % 10.3-14.2 H (BEAKER) (test code = 412) PLATELET COUNT (BEAKER) (test 157 K/CU MM 150-430 code = 756) MEAN PLATELET VOLUME (BEAKER) 9.0 fL 6.5-10.5 (test code = 754) NUCLEATED RED BLOOD CELLS 0 /100 WBC 0-0 (BEAKER) (test code = 413) NEUTROPHILS RELATIVE PERCENT 67 % (BEAKER) (test code = 429) LYMPHOCYTES RELATIVE PERCENT 23 % (BEAKER) (test code = 430) MONOCYTES RELATIVE PERCENT 7 % (BEAKER) (test code = 431) EOSINOPHILS RELATIVE PERCENT 3 % (BEAKER) (test code = 432) BASOPHILS RELATIVE PERCENT 0 % (BEAKER) (test code = 437) NEUTROPHILS ABSOLUTE COUNT 4.44 K/ L 1.80-8.00 (BEAKER) (test code = 670) LYMPHOCYTES ABSOLUTE COUNT 1.51 K/ L 1.48-4.50 (BEAKER) (test code = 414) MONOCYTES ABSOLUTE COUNT (BEAKER) 0.43 K/ L 0.00-1.30 (test code = 415) EOSINOPHILS ABSOLUTE COUNT 0.21 K/ L 0.00-0.50 (BEAKER) (test code = 416) BASOPHILS ABSOLUTE COUNT (BEAKER) 0.03 K/ L 0.00-0.20 (test code = 417) 0.00POCT-GLUCOSE [id number] 21:25:00 Test Item Value Reference Range Interpretation Comments POC-GLUCOSE METER 279 mg/dL 70-110 H TESTED AT [facility] (test code = [place] 1538) [id number] HEMOGLOBIN [id number] 21:13:00 Test Item Value Reference Range Interpretation Comments HEMOGLOBIN A1C (BEAKER) (test code = 10.7 % 4.3-6.1 H 368) CBC W/PLT COUNT & AUTO [id number] 20:47:00 Test Item Value Reference Range Interpretation Comments WHITE BLOOD CELL COUNT (BEAKER) 7.3 K/ L 4.0-10.0 (test code = 775) RED BLOOD CELL COUNT (BEAKER) 5.25 M/ L 4.20-5.80 (test code = 761) HEMOGLOBIN (BEAKER) (test code = 15.7 GM/DL 13.0-16.8 410) HEMATOCRIT (BEAKER) (test code = 46.0 % 40.0-50.0 411) MEAN CORPUSCULAR VOLUME (BEAKER) 87.7 fL 82.0-98.0 (test code = 753) MEAN CORPUSCULAR HEMOGLOBIN 30.0 pg 27.0-33.0 (BEAKER) (test code = 751) MEAN CORPUSCULAR HEMOGLOBIN CONC 34.2 GM/DL 32.0-36.0 (BEAKER) (test code = 752) RED CELL DISTRIBUTION WIDTH 13.8 % 10.3-14.2 (BEAKER) (test code = 412) PLATELET COUNT (BEAKER) (test 166 K/CU MM 150-430 code = 756) MEAN PLATELET VOLUME (BEAKER) 8.3 fL 6.5-10.5 (test code = 754) NUCLEATED RED BLOOD CELLS 0 /100 WBC 0-0 (BEAKER) (test code = 413) NEUTROPHILS RELATIVE PERCENT 69 % (BEAKER) (test code = 429) LYMPHOCYTES RELATIVE PERCENT 22 % (BEAKER) (test code = 430) MONOCYTES RELATIVE PERCENT 5 % (BEAKER) (test code = 431) EOSINOPHILS RELATIVE PERCENT 3 % (BEAKER) (test code = 432) BASOPHILS RELATIVE PERCENT 0 % (BEAKER) (test code = 437) NEUTROPHILS ABSOLUTE COUNT 5.04 K/ L 1.80-8.00 (BEAKER) (test code = 670) LYMPHOCYTES ABSOLUTE COUNT 1.63 K/ L 1.48-4.50 (BEAKER) (test code = 414) MONOCYTES ABSOLUTE COUNT (BEAKER) 0.40 K/ L 0.00-1.30 (test code = 415) EOSINOPHILS ABSOLUTE COUNT 0.22 K/ L 0.00-0.50 (BEAKER) (test code = 416) BASOPHILS ABSOLUTE COUNT (BEAKER) 0.01 K/ L 0.00-0.20 (test code = 417) 0.00POCT-GLUCOSE [id number] 18:31:00 Test Item Value Reference Range Interpretation Comments POC-GLUCOSE METER 205 mg/dL 70-110 H TESTED AT [facility] ([facility] (test code = [place] 1538) [id number]
--- OUTSIDE RECORDS SUMMARY | 2019-11-12 21:25 | XMS REPORT | Clinical Summary ---
:1965 Author Organization [facility] Address [address] [place] [address] Care Team Providers Name Role Phone Unavailable Primary Care Provider Unavailable Allergies Active Allergy Reactions Severity Noted Date Comments Ibuprofen 06/30/2016 Kidney problems Metformin 06/30/2016 Kidney problem s Medications Medication Sig Dispensed Refills Start Date [...] Date Former Smoker Smokeless Tobacco: Former User Q uit: 06/30/1986 Alcohol Use Drinks/Week oz/Week Comments No Sex Assigned at Date Recorded Not on file Job Start Date Occupation Industry Not on file Not on file Not on file Travel History Travel Start Travel End No recent travel history available. Last Filed Vital Signs Not on file Plan of Treatment Not on file Results Not on fileafter 11/11/2018 Insurance Payer Benefit Plan / Group Subscriber ID Type Phone A ddress [employer] ALL xxxxxxxxx Maps Contracted Advance Directives For more information, please contact:[facility] [place], [place] [phone] Code Status Date Activated Date Inactivated Comments Full Code 06/30/2016 7:46 PM 07/04/2016 5:23 PM This code status was determined by: Patient
[2019-11-12] MEDS ORDERED: HYDROCODONE/APAP 10/325 TAB ONE (22:02)
--- NOTE | 2019-11-12 22:44 | ER ---
Nurse's Notes [facility] Name: Ramirez Chaudhari Age: 54 yrs Sex: Male : 1965 Arrival Date: 11/12/2019 Time: 21:25 Bed 5 Private MD: Ramon Powers E Diagnosis: Nondisplaced fracture left tibia distal end;Fall from non-moving wheelchair Presentation: 11/11 21:36 Chief complaint: Spouse and/or significant other states: states they were in [facility] [place] today and while she was helping patient transfer out of bath, he fell, hurting left ankle; states swelling and tingling to left ankle. Coronavirus screen: Client denies travel out of the [place] in the last 14 days. At this time, the client does not indicate any symptoms associated with coronavirus-19. Ebola Screen: No symptoms or risks identified at this time. Risk Assessment: Do you want to hurt yourself or someone else? Patient reports no desire to harm self or others. Onset of symptoms was November 12, 2019. 21:36 Method Of Arrival: Wheelchair lp1 21:36 Acuity: NOHEMI 4 lp1 21:38 Initial Sepsis Screen: Does the patient meet any 2 criteria? No. Patient's initial ea sepsis screen is negative. Does the patient have a suspected source of infection? No. Patient's initial sepsis screen is negative. Historical: - Allergies: 21:42 Ibuprofen; lp1 21:42 metformin; lp1 - Home Meds: 21:42 lisinopril 40 mg oral tab once daily [Active]; levothyroxine 75 mcg tab 1 tab once lp1 daily [Active]; Colcrys 0.6 mg Oral tab 1 tab bid prn gout [Active]; Levemir 40 units subcutaneous twice a day [Active]; Novolog 30 units Sub-Q three times a day [Active]; - PMHx: 21:42 ADD/ADHD; Diabetes - IDDM; GERD; Gout; High Cholesterol; Hydrocele Left Testicle; lp1 Hypertension; Hypothyroidism; Migraines; Paraplegia; Renal Disease; Spinal Stroke; - PSHx: 21:42 Spinal surgery; lp1 - Immunization history:: Adult Immunizations up to date. - Social history:: Smoking status: Patient denies any tobacco usage or history of. Screenin:40 Abuse screen: Denies threats or abuse. Nutritional screening: No deficits noted. ea 21:41 Fall Risk Fall in past 12 months (25 points). ea 21:41 Tuberculosis screening: No symptoms or risk factors identified. ea Assessment: 21:40 General: Appears in no apparent distress. Behavior is calm, cooperative, appropriate ll2 for age. General: Pt is a paraplegic and has no feeling to lower legs, states, "I am having some tingling and and painful sensation in my left ankle, and I know if I can feel anything it's generally bad." . Pain: Complains of pain in left lateral ankle, left medial ankle and anterior aspect of left ankle Pain. Neuro: Level of Consciousness is awake, alert, obeys commands, Oriented to person, place, time, situation. Cardiovascular: Capillary refill < 3 seconds Patient's skin is warm and dry. Respiratory: Airway is patent Respiratory effort is even, unlabored, Respiratory pattern is regular, symmetrical. GI: No signs and/or symptoms were reported involving the gastrointestinal system. : Valera in place. EENT: No signs and/or symptoms were reported regarding the EENT system. Derm: Skin is intact, is healthy with good turgor, Skin is dry, Skin is pink, warm \\T\\ dry. Skin temperature is warm. Musculoskeletal: Reports paraplegic, no movement to bilateral lower extremities. 22:53 Reassessment: Patient and/or family updated on plan of care and expected duration. Pain ea level reassessed. Patient states feeling better. 23:14 Reassessment: Patient and/or family updated on plan of care and expected duration. Pain ea level reassessed. Discharge instruction given to patient, verbalized the understanding of instruction. Pt left ED via wheelchair, tolerating well. Vital Signs: 21:35 BP 196 / 107; Pulse 88; Resp 13; Temp 97.9; Pulse Ox 96% on R/A; ll2 21:57 BP 173 / 92; Pulse 89; Resp 18; Pulse Ox 98% on R/A; mg2 ED Course: 21:25 Patient arrived in ED. am2 21:25 Ramon Powers MD is Private Physician. am2 21:27 Krish Portillo, NORBERTO is Primary Nurse. mg2 21:35 Herbert Murry NP is PHCP. pm1 21:35 Dev Oconnell MD is Attending Physician. pm1 21:38 Triage completed. lp1 21:38 Arm band placed on. lp1 21:40 Patient has correct armband on for positive identification. Placed in gown. Bed in low ea position. Call light in reach. 22:50 Ankle Left 3 View XRAY In Process Unspecified. EDMS 22:50 Foot Left 3 View XRAY In Process Unspecified. EDMS 22:53 No provider procedures requiring assistance completed. Patient did not have IV access ea during this emergency room visit. 23:05 Orthoglass splint: Posterior short lleg splint applied on left leg. stirrup splint ds4 applied on left leg. Administered Medications: 21:56 Drug: [place] 10 mg-325 mg 1 tabs Route: PO; mg2 22:53 Follow up: Response: No adverse reaction; Pain is decreased ea Outcome: 22:43 Discharge ordered by MD. pm1 22:54 Condition: stable ea 22:54 Discharge instructions given to patient, Instructed on discharge instructions, follow up and referral plans. Demonstrated understanding of instructions, follow-up care, medications, Prescriptions given X 1. 23:14 Discharged to home via wheelchair. ea 23:15 Patient left the ED. ea Signatures: Dispatcher [employer] EDMS Neris Hernandez RN RN lp1 Dane Barreto ds4 Herbert Murry NP AIR POLLUTION ENGINEER pm1 Latricia Campbell am2 Lindy Ortiz RN RN ea Krish Portillo RN RN mg2 Ernestina Kendrick RN RN ll2
--- NOTE | 2019-11-12 22:44 | EDPHYS ---
Physician Documentation [facility] Name: Ramirez Chaudhari Age: 54 yrs Sex: Male : 1965 Arrival Date: 11/12/2019 Time: 21:25 Bed 5 Private MD: Ramon Powers E ED Physician Dev Oconnell HPI: 11/11 22:04 This 54 yrs old Male presents to ER via Wheelchair with complaints of Fall pm1 Injury, Ankle Swelling. 22:04 Details of fall: The patient fell from seated position, while transferring, out of a pm1 wheelchair, and struck bathtub. 22:04 Onset: The symptoms/episode began/occurred today. Associated injuries: The patient pm1 sustained left ankle. The patient has not recently seen a physician. Patient fell while his was helping him transfer from wheelchair to bath tub. Presenting with injury to left ankle. No headache, head injury, neck pain, LOC. Historical: - Allergies: 21:42 Ibuprofen; lp1 21:42 metformin; lp1 - Home Meds: 21:42 lisinopril 40 mg oral tab once daily [Active]; levothyroxine 75 mcg tab 1 tab once lp1 daily [Active]; Colcrys 0.6 mg Oral tab 1 tab bid prn gout [Active]; Levemir 40 units subcutaneous twice a day [Active]; Novolog 30 units Sub-Q three times a day [Active]; - PMHx: 21:42 ADD/ADHD; Diabetes - IDDM; GERD; Gout; High Cholesterol; Hydrocele Left Testicle; lp1 Hypertension; Hypothyroidism; Migraines; Paraplegia; Renal Disease; Spinal Stroke; - PSHx: 21:42 Spinal surgery; lp1 - Immunization history:: Adult Immunizations up to date. - Social history:: Smoking status: Patient denies any tobacco usage or history of. ROS: 22:04 Constitutional: Negative for fever, chills, and weight loss. pm1 22:04 Neck: Negative for injury, pain, and swelling. pm1 22:04 Cardiovascular: Negative for chest pain, palpitations Respiratory: Negative for shortness of breath, cough, wheezing, and pleuritic chest pain, Abdomen/GI: Negative for abdominal pain, nausea, vomiting, diarrhea, and constipation, Back: Negative for injury and pain. 22:04 Neuro: Negative for headache, weakness, numbness, tingling, and seizure. 22:04 MS/extremity: Positive for pain, swelling, of the left ankle. 22:04 Skin: Positive for abrasion(s), of the left knee. Exam: 22:04 Constitutional: This is a well developed, well nourished patient who is awake, alert, pm1 and in no acute distress. Head/Face: Normocephalic, atraumatic. Neck: Trachea midline, no thyromegaly or masses palpated, and no cervical lymphadenopathy. Supple, full range of motion without nuchal rigidity, or vertebral point tenderness. No Meningismus. Chest/axilla: Normal chest wall appearance and motion. Nontender with no deformity. No lesions are appreciated. 22:04 Back: No spinal tenderness. No costovertebral tenderness. Full range of motion. 22:04 Cardiovascular: Exam negative for acute changes, Rate: normal, Rhythm: regular, Pulses: no pulse deficits are appreciated. 22:04 Respiratory: Exam negative for acute changes, respiratory distress, shortness of breath. 22:04 Musculoskeletal/extremity: Extremities: grossly normal except: noted in the left ankle: swelling, tenderness. 22:04 Skin: Appearance: normal except for affected area, injury, abrasion(s), very small abrasion noted, of the left knee. Vital Signs: 21:35 BP 196 / 107; Pulse 88; Resp 13; Temp 97.9; Pulse Ox 96% on R/A; ll2 21:57 BP 173 / 92; Pulse 89; Resp 18; Pulse Ox 98% on R/A; mg2 Procedures: 23:10 Splinting: Splint applied to left ankle using Orthoglass splint, applied by tech. pm1 Examined by me, post splint application: neurovascular intact, 2+ distal pulses palpable, brisk capillary refill noted, Patient tolerated well. MDM: 21:41 Patient medically screened. pm1 22:40 Data reviewed: vital signs. Data interpreted: Pulse oximetry: on room air is 98 %. pm1 Interpretation: normal. Counseling: I had a detailed discussion with the patient and/or guardian regarding: the historical points, exam findings, and any diagnostic results supporting the discharge/admit diagnosis, radiology results, the need for outpatient follow up, for definitive care, a orthopedic surgeon, to return to the emergency department if symptoms worsen or persist or if there are any questions or concerns that arise at home. 11/11 21:47 Order name: Ankle Left 3 View XRAY pm1 11/11 21:47 Order name: Foot Left 3 View XRAY pm1 11/11 22:39 Order name: Posterior Orthoglass Ankle Splint; Complete Time: 23:08 pm1 11/11 22:39 Order name: Splint - Ankle: Orthoglass: Stirrup; Complete Time: 23:08 pm1 Administered Medications: 21:56 Drug: [place] 10 mg-325 mg 1 tabs Route: PO; mg2 22:53 Follow up: Response: No adverse reaction; Pain is decreased ea Disposition: 11/12 07:01 Co-signature as Attending Physician, Dev Oconnell MD I agree with the assessment and tw4 plan of care. Disposition: 11/12/19 22:43 Discharged to Home. Impression: Nondisplaced fracture left tibia distal end, Fall from non-moving wheelchair. - Condition is Stable. - Discharge Instructions: Ankle Fracture, Cast or Splint Care, Adult. - Prescriptions for Tylenol- Codeine #3 300-30 mg Oral Tablet - take 2 tablets by ORAL route every 6 hours As needed; 20 tablet. - Medication Reconciliation Form, Thank You Letter, Antibiotic Education, Prescription Opioid Use form. - Follow up: Private Physician; When: 2 - 3 days; Reason: Recheck today's complaints, Continuance of care, Re-evaluation by your physician. - Problem is new. - Symptoms have improved. Signatures: Dispatcher [employer] EDMS Neris Hernandez RN RN lp1 Herbert Murry, MASH FILTER OPERATOR MASH FILTER OPERATOR pm1 Lindy Ortiz RN RN ea Wadley, Terrence, MD MD tw4 Krish Portillo RN RN mg2 Corrections: (The following items were deleted from the chart) 11/11 23:15 22:43 11/12/2019 22:43 Discharged to Home. Impression: Nondisplaced fracture left tibia ea distal end; Fall from non-moving wheelchair. Condition is Stable. Forms are Medication Reconciliation Form, Thank You Letter, Antibiotic Education, Prescription Opioid Use. Follow up: Private Physician; When: 2 - 3 days; Reason: Recheck today's complaints, Continuance of care, Re-evaluation by your physician. Problem is new. Symptoms have improved. pm1
--- NOTE | 2019-11-13 12:49 | RAD REPORT ---
EXAM DESCRIPTION: RAD - Ankle Left 3 View -11/12/2019 10:50 pm CLINICAL HISTORY: Left ankle pain status post injury FINDINGS: No fracture or dislocation is seen. The bones are osteoporotic. Soft tissue swelling is present.
--- NOTE | 2019-11-13 12:51 | RAD REPORT ---
EXAM DESCRIPTION: RAD - Foot Left 3 View - 11/12/2019 10:50 pm CLINICAL HISTORY: Left Foot pain status post fall FINDINGS: No fracture or dislocation is seen. Bones are osteoporotic
[2019-11-14 09:23] VITALS: BP 173/92; TEMP 97.9; O2SAT 98
== END 2019-11-12 23:15 | disposition home or self-care (01) ==
LOC: ER 21:22
PROC: 2W3RX1Z Immobilization of Left Lower Leg using Splint (ICD-10-PCS; principal; 2019-11-12)
DX: S82.302A Unspecified fracture of lower end of left tibia, initial encounter for closed fracture (principal); W05.0XXA Fall from non-moving wheelchair, initial encounter; Y93.89 Activity, other specified; Y92.9 Unspecified place or not applicable; I10 Essential (primary) hypertension; E11.9 Type 2 diabetes mellitus without complications; E03.9 Hypothyroidism, unspecified; Z79.4 Long term (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; Z88.6 Allergy status to analgesic agent; Z88.8 Allergy status to other drugs, medicaments and biological substances
CPT/HCPCS: 99284

== ENCOUNTER 2019-12-26 22:59 | Emergency (ER) | payer OTHER ==
--- OUTSIDE RECORDS SUMMARY | 2019-12-26 23:01 | XMS REPORT | Clinical Summary ---
:1965 Author Organization [facility] Address [address] [place] [address] Care Team Providers Name Role Phone Unavailable [...] Not on file Results Not on fileafter 12/25/2018 Insurance Payer Benefit Plan / Subscriber ID Effective Dates Phone Addre ss Type Group [employer] TEX[employer] HMO [id number] 2015-Daisy Phipps Contracted ALL t Advance Directives For more information, please contact: [phone] Code Status Date Activated Date Inactivated Comments Full Code 06/30/2016 7:46 PM 07/04/2016 5:23 PM This code status was determined by: Patient
--- OUTSIDE RECORDS SUMMARY | 2019-12-26 23:02 | XMS REPORT | Continuity of Care Document ---
:1965 Author Organization [facility] t Address [facility] [place] [address] Care Team Providers Name Role Phone FAITH GOMEZ Attending Clinician Unavailable ILIANA GOMEZ Admitting Clinician Unavailable Problems Condition Condition Condition Status Onset Resolution Last Treating Co mments Source Name Details Category Date Date Treatment Clinician Date Epididymit Epididymit Disease Active [facility], left is, left [facility] - 00:00: Medical 00 [place] DM2 DM2 Disease Active [facility] (diabetes (diabetes [facility] - mellitus, mellitus, 00:00: Medi timothy type 2) type 2) 00 Center HTN HTN Disease Active [facility] (hypertens (hypertens -24 Cindy kes - ion) ion) 00:00: Medical 00 [place] Hypothyroi Hypothyroi Disease Active [facility] - 00:[facility]: Medical 00 Center Allergies, Adverse Reactions, Alerts Allergy Allergy Status Severity Reaction(s) Onset Inactive Treating Comm ents Source Name Type Date Date Clinician Ibuprofe Propensi Active [facility]ney [facility] ty to 4-24 [facility] - adverse 00:00: Medical reaction 00 [place] [facility] Metformi Propensi Active Kidney [facility] ty to 4-24 problems [facility] - adverse 00:00: Medical reaction 00 [place] [facility] Family History Family Member Diagnosis Comments Start Date Stop Date Source Natural brother Kidney disease [facility] Natural mother Diabetes [facility] Natural sister Diabetes [facility] Social History Social Habit Start Date Stop Date Quantity Comments Source Sex Assigned At [facility] Tobacco use and 2016-07-01 2016-07-01 Former user KATELIN Clemente - exposure 00:00:00 00:00:00 [facility] Alcohol intake 2016-07-01 2016-07-01 Current KATELIN Rodas es - 00:00:00 00:00:00 non-drinker of Medical Ce nter alcohol (finding) History of 1986-06-[address] [facility] - tobacco use 00:00:00 tobacco [facility] Smoking Status Start Date Stop Date Source Former smoker 2016-07-01 00:00:00 2016-07-01 00:00:[address] [facility] Medications Ordered Filled Start Stop Current Ordering Indication Dosage Frequency Signature Comments Components Source Medication Medication Date Date Medication? Clinician (SIG) Name Name atenolol Yes 50mg QD Take [address] [facility] (TENORMIN) 4-28 by mouth [facility] - 50 MG 15:23: daily. Medical tablet 08 Center oxybutynin Yes 5mg [id number] Take [address] [facility] (DITROPAN) 4-28 [id number] by mouth 3 [facility] - 5 MG tablet 15:23: 3D (three) Med ical 08 times Center daily. pantoprazol Yes 40mg QD Take [address] [facility] e 4-28 by mouth [facility] - (PROTONIX) 15:23: daily Medica l 40 MG 08 Before Center tablet breakfast . levothyroxi Yes 75ug Take [address] ne 4-28 mcg by [facility] - (SYNTHROID, 15:23: mouth Medic al LEVOTHROID) 08 Every Center 75 MCG morning on tablet an empty stomach. insulin Yes 36U Q.5D Inject 36 [facility] detemir 4-28 Units [facility] - (LEVEMIR) 15:23: subcutaneo Me dical 100 unit/mL 08 usly 2 Center (3 mL) InPn (two) injection times daily pen . insulin Yes 20U Inject 20 [facility] lispro 4-28 Units [facility] - (HUMALOG) 15:23: subcutaneo Me dical 100 unit/mL 08 usly 3 Center injection (three) times daily before meals Sliding scale starts at 20 units . colchicine 2017 Yes .6mg Take 0.[address] (COLCRYS) 4-28 mg by [facility] - 0.6 mg 15:23: mouth 2 Medical tablet 08 (two) Center times daily as needed As needed for gout . Procedures This patient has no known procedures. Results Test Description Test Time Test Comments Results Result Comments Source BLOOD CULTURE 2016-07-07 14:28:00 Test Item Value Reference Range Interpretation Comme nts CULTURE (BEAKER) (test code = 1095) No growth in 5 days POCT-GLUCOSE [id number] 12:04:00 Test Item Value Reference Range Interpretation Comments POC-GLUCOSE METER 179 mg/dL 70-[address] [facility] 6720 (BEAKER) (test code = [place] 1538) [id number] BASIC METABOLIC [id number] 09:51:00 Test Item Value Reference Range Interpretation [...] PATIEN TS. CBC W/PLT COUNT & AUTO [id number] 09:20:00 Test Item Value Reference Range Interpretation [...] L 0.00-0.20 (test code = 417) 0.00POCT-GLUCOSE [id number] 07:15:00 Test Item Value Reference Range Interpretation Comments POC-GLUCOSE METER 246 mg/dL 70-[address] [facility] 6720 (BEAKER) (test code = AD[place]FO [place] 1538) [id number] POCT-GLUCOSE [id number] 21:12:00 Test Item Value Reference Range Interpretation Comments POC-GLUCOSE METER 89 mg/dL 70-110 TESTED AT [place] [address] ([facility]) (test code = [place] [address] 1538) POCT-GLUCOSE [id number] 17:12:00 Test Item Value Reference Range Interpretation Comments POC-GLUCOSE METER 217 mg/dL 70-110 H TESTED AT [place] [address] ([facility]) (test code = [place]FO [place] [facility] 1538) [address] URINE [id number] 12:07:00 Test Item Value Reference Range Interpretation Comments CULTURE ([facility]) (test <10,000 col/mL skin code = 1095) candi POCT-GLUCOSE [id number] 11:30:00 Test Item Value Reference Range Interpretation Comments POC-GLUCOSE METER 205 mg/dL 70-110 H TESTED AT [place] [address] ([facility]) (test code = [place] [facility] 1538) [address] POCT-GLUCOSE [id number] 07:36:00 Test Item Value Reference Range Interpretation Comments POC-GLUCOSE METER 195 mg/dL 70-110 H TESTED AT [place] [address] ([facility]) (test code = [facility] 1538) [address] CBC W/PLT COUNT & AUTO [id number] 05:14:00 Test Item Value Reference Range Interpretation Comments WHITE BLOOD CELL COUNT ([facility]) 6.7 K/ L 4.0-10.0 (test code = 775) RED BLOOD CELL COUNT ([facility]) 4.40 M/ L 4.20-5.80 (test code = 761) HEMOGLOBIN (BEAKER) (test code = 13.3 GM/DL 13.0-16.8 410) HEMATOCRIT (AKER) (test code = 38.2 % 40.0-50.0 L 411) MEAN CORPUSCULAR VOLUME (AKER) 86.8 fL 82.0-98.0 (test code = 753) MEAN CORPUSCULAR HEMOGLOBIN 30.1 pg 27.0-33.0 (BEAKER) (test code = 751) MEAN CORPUSCULAR HEMOGLOBIN CONC 34.7 GM/DL 32.0-36.0 (AKER) (test code = 752) RED CELL DISTRIBUTION [...] K/ L 0.00-0.20 (test code = 417) 0.00BASI METABOLIC [id number] 05:14:00 Test Item Value Reference Range Interpretation [...] NOT APPLICABLE FOR DIALYSIS PATIEN TS. POCT-GLUCOSE [id number] 21:04:00 Test Item Value Reference Range Interpretation Comments POC-GLUCOSE METER 178 mg/dL 70-110 H TESTED AT [place] [address] ([facility]) ([facility] 1538) [id number] POCT-GLUCOSE [id number] 17:07:00 Test Item Value Reference Range Interpretation Comments POC-GLUCOSE METER 88 mg/dL 70-110 TESTED AT [place] [address] ([facility]) (test code = [facility] [address] 1538) POCT-GLUCOSE [id number] 12:30:00 Test Item Value Reference Range Interpretation Comments POC-GLUCOSE METER 107 mg/dL 70-110 TESTED AT [place] [address] ([facility]) (test code = [facility] 1538) [id number] POCT-GLUCOSE [id number] 07:46:00 Test Item Value Reference Range Interpretation Comments POC-GLUCOSE METER 169 mg/dL 70-110 H TESTED AT [place] [address] ([facility]) (test code = [facility] 1538) [id number] CBC W/PLT COUNT & AUTO [id number] 07:42:00 Test Item Value Reference Range Interpretation Comments WHITE BLOOD CELL COUNT ([facility]) 6.5 K/ L 4.0-10.0 (test code = 775) RED BLOOD CELL COUNT ([facility]) 4.57 M/ L 4.20-5.80 (test code = 761) HEMOGLOBIN (BEAKER) (test code = 13.4 GM/DL 13.0-16.8 410) HEMATOCRIT (AKER) (test code = 40.4 % 40.0-50.0 411) MEAN CORPUSCULAR VOLUME (AKER) 88.3 fL 82.0-98.0 (test code = 753) MEAN CORPUSCULAR HEMOGLOBIN 29.3 pg 27.0-33.0 (BEAKER) (test code = 751) MEAN CORPUSCULAR HEMOGLOBIN CONC 33.2 GM/DL 32.0-36.0 (AKER) (test code = 752) RED CELL DISTRIBUTION [...] K/ L 0.00-0.20 (test code = 417) 0.00BASI METABOLIC [id number] 06:13:00 Test Item Value Reference Range Interpretation [...] NOT APPLICABLE FOR DIALYSIS PATIEN TS. POCT-GLUCOSE [id number] 22:12:00 Test Item Value Reference Range Interpretation Comments POC-GLUCOSE METER 238 mg/dL 70-110 H TESTED AT [place] [address] (BEAKER) (test code = [place] 1538) [id number] POCT-GLUCOSE [id number] 17:25:00 Test Item Value Reference Range Interpretation Comments POC-GLUCOSE METER 102 mg/dL 70-110 TESTED AT [place] [address] (BEAKER) (test code = [facility] 1538) [id number] URINALYSIS W/ [id number] 12:50:00 Test Item Value Reference Range Interpretation [...] /HPF SOURCE(BEAKER) (test code = 2795) POCT-GLUCOSE [id number] 12:04:00 Test Item Value Reference Range Interpretation Comments POC-GLUCOSE METER 226 mg/dL 70-110 H TESTED AT [place] [id number] (BEAKER) (test code = [facility] 1538) [id number] POCT-GLUCOSE [id number] 08:00:00 Test Item Value Reference Range Interpretation Comments POC-GLUCOSE METER 300 mg/dL 70-[address] [facility] 6720 (BEAKER) (test code = [place] 1538) [address] BASIC METABOLIC [id number] 06:50:00 Test Item Value Reference Range Interpretation [...] PATIEN TS. CBC W/PLT COUNT & AUTO [id number] 06:01:00 Test Item Value Reference Range Interpretation [...] L 0.00-0.20 (test code = 417) 0.00POCT-GLUCOSE [id number] 21:25:00 Test Item Value Reference Range Interpretation Comments POC-GLUCOSE METER 279 mg/dL 70-[address] [facility] 6720 (BEAKER) (test code = [place] 1538) [address] HEMOGLOBIN [id number] 21:13:00 Test Item Value Reference Range Interpretation Comments HEMOGLOBIN A1C (BEAKER) (test code = 10.7 % 4.3-6.1 H 368) CBC W/PLT COUNT & AUTO [id number] 20:47:00 Test Item Value Reference Range Interpretation [...] L 0.00-0.20 (test code = 417) 0.00POCT-GLUCOSE [id number] 18:31:00 Test Item Value Reference Range Interpretation Comments POC-GLUCOSE METER 205 mg/dL 70-[address] [facility] 6720 (AKER) (test code = [place] 1538) [id number]
--- NOTE | 2019-12-26 23:39 | ER ---
Nurse's Notes [facility] Name: Ramirez Chaudhari Age: 54 yrs Sex: Male : 1965 Arrival Date: 12/26/2019 Time: 23:02 Bed 2 Private MD: Diagnosis: Multiple skin tags both axillas Presentation: 12/25 23:18 Chief complaint: Patient states: he has a skin lesion under his right arm which hurts bb because he has to push his wheelchair. Coronavirus screen: At this time, the client does not indicate any symptoms associated with coronavirus-19. Ebola Screen: No symptoms or risks identified at this time. Initial Sepsis Screen: Does the patient meet any 2 criteria? No. Patient's initial sepsis screen is negative. Does the patient have a suspected source of infection? No. Patient's initial sepsis screen is negative. Risk Assessment: Do you want to hurt yourself or someone else? Patient reports no desire to harm self or others. Onset of symptoms was December 26, 2019. 23:18 Method Of Arrival: Wheelchair bb 23:18 Acuity: NOHEMI 5 bb Historical: - Allergies: 23:23 Ibuprofen; bb 23:23 metformin; bb - Home Meds: 23:23 Colcrys 0.6 mg Oral tab 1 tab bid prn gout [Active]; Levemir 46 units subcutaneous bb twice a day [Active]; levothyroxine 75 mcg tab 1 tab once daily [Active]; lisinopril 40 mg Oral tab once daily [Active]; Novolog 30 units Sub-Q three times a day [Active]; furosemide 40 mg Oral tab 1 tab once daily [Active]; - PMHx: 23:23 ADD/ADHD; Diabetes - IDDM; GERD; Gout; High Cholesterol; Hydrocele Left Testicle; bb Hypertension; Hypothyroidism; Migraines; Paraplegia; Renal Disease; Spinal Stroke; - PSHx: 23:23 Spinal surgery; bb - Immunization history:: Adult Immunizations up to date. - Social history:: Smoking status: Patient denies any tobacco usage or history of. Screenin:10 Abuse screen: Denies threats or abuse. Nutritional screening: No deficits noted. bb Tuberculosis screening: No symptoms or risk factors identified. Fall Risk None identified. Assessment: 23:10 General: Appears in no apparent distress. Behavior is. Pain: Complains of pain in right bb axilla skin tag Pain currently is 9 out of 10 on a pain scale. Neuro: Level of Consciousness is awake, alert, obeys commands, Oriented to person, place, time, situation. Cardiovascular: No deficits noted. Respiratory: Respiratory effort is even, unlabored, Respiratory pattern is regular. Derm: multiple skin tags bilateral axilla no erythema or edema noted. 23:45 Reassessment: Patient is alert, oriented x 3, equal unlabored respirations, skin bb warm/dry/pink. pt verbalized understanding of and agrees to plan of care discharge instructions given pt assisted to exit via his wheelchair accompanied by this RN and family. Vital Signs: 23:18 BP 134 / 85; Pulse 86; Resp 16 S; Temp 98.3(O); Pulse Ox 99% on R/A; Weight 106.59 kg bb (R); Height 5 ft. 8 in. (172.72 cm) (R); Pain 9/10; 23:18 Body Mass Index 35.73 (106.59 kg, 172.72 cm) ED Course: 23:02 Patient arrived in ED. bp1 23:10 Patient has correct armband on for positive identification. Call light in reach. Adult bb w/ patient. Pulse ox on. NIBP on. Warm blanket given. 23:10 No provider procedures requiring assistance completed. Patient did not have IV access bb during this emergency room visit. 23:20 Triage completed. bb 23:22 Parth Amato MD is Attending Physician. pkl 23:23 Arm band placed on Patient placed in an exam room, on a stretcher, on pulse oximetry. bb Family accompanied patient. 23:32 Uche Pate RN is Primary Nurse. 23:37 Talha Schwab MD is Referral Physician. pkl Administered Medications: No medications were administered Outcome: 23:37 Discharge ordered by . pkl 23:45 Discharged to home via wheelchair, with family. bb 23:45 Condition: stable 23:45 Discharge instructions given to patient, family, Instructed on discharge instructions, follow up and referral plans. Demonstrated understanding of instructions, follow-up care. 23:46 Patient left the ED. bb Signatures: Uche Pate RN RN Parth Amato MD MD pkl Elayne Chavez RN RN bb Duyen Barriga bp1
--- NOTE | 2019-12-26 23:39 | EDPHYS ---
Physician Documentation [facility] Name: Ramirez Chaudhari Age: 54 yrs Sex: Male : 1965 Arrival Date: 12/26/2019 Time: 23:02 Bed 2 Private MD: ED Physician Parth Amato HPI: 12/25 23:31 This 54 yrs old Male presents to ER via Wheelchair with complaints of Arm pkl Problem, Infection on Arm. 23:31 The patient or guardian complains of Complained of multiple skin tags in both armpits. pkl Historical: - Allergies: 23:23 Ibuprofen; bb 23:23 metformin; bb - Home Meds: 23:23 Colcrys 0.6 mg Oral tab 1 tab bid prn gout [Active]; Levemir 46 units subcutaneous bb twice a day [Active]; levothyroxine 75 mcg tab 1 tab once daily [Active]; lisinopril 40 mg Oral tab once daily [Active]; Novolog 30 units Sub-Q three times a day [Active]; furosemide 40 mg Oral tab 1 tab once daily [Active]; - PMHx: 23:23 ADD/ADHD; Diabetes - IDDM; GERD; Gout; High Cholesterol; Hydrocele Left Testicle; bb Hypertension; Hypothyroidism; Migraines; Paraplegia; Renal Disease; Spinal Stroke; - PSHx: 23:23 Spinal surgery; bb - Immunization history:: Adult Immunizations up to date. - Social history:: Smoking status: Patient denies any tobacco usage or history of. ROS: 23:31 Eyes: Negative for injury, pain, redness, and discharge, ENT: Negative for injury, pkl pain, and discharge, Neck: Negative for injury, pain, and swelling, Cardiovascular: Negative for chest pain, palpitations, and edema, Respiratory: Negative for shortness of breath, cough, wheezing, and pleuritic chest pain, Abdomen/GI: Negative for abdominal pain, nausea, vomiting, diarrhea, and constipation, Back: Negative for injury and pain, : Negative for injury, bleeding, discharge, and swelling, MS/Extremity: Negative for injury and deformity. 23:31 Skin: Positive for multiple skin tags both axillas. 23:31 Neuro: Negative for altered mental status. Exam: 23:31 Head/Face: Normocephalic, atraumatic. Eyes: Pupils equal round and reactive to light, pkl extra-ocular motions intact. Lids and lashes normal. Conjunctiva and sclera are non-icteric and not injected. Cornea within normal limits. Periorbital areas with no swelling, redness, or edema. ENT: Nares patent. No nasal discharge, no septal abnormalities noted. Tympanic membranes are normal and external auditory canals are clear. Oropharynx with no redness, swelling, or masses, exudates, or evidence of obstruction, uvula midline. Mucous membranes moist. Neck: Trachea midline, no thyromegaly or masses palpated, and no cervical lymphadenopathy. Supple, full range of motion without nuchal rigidity, or vertebral point tenderness. No Meningismus. 23:31 Chest/axilla: Inspection: multiple skin tags both axillas. 23:31 Cardiovascular: Rate: normal, Rhythm: regular. 23:31 Respiratory: the patient does not display signs of respiratory distress, Respirations: normal, Breath sounds: are clear throughout. 23:31 Abdomen/GI: Exam negative for acute changes. 23:31 Back: Exam negative for acute changes. 23:31 : Exam negative for acute changes. 23:31 Musculoskeletal/extremity: Exam is negative for acute changes. 23:31 Neuro: Exam negative for acute changes. Vital Signs: 23:18 BP 134 / 85; Pulse 86; Resp 16 S; Temp 98.3(O); Pulse Ox 99% on R/A; Weight 106.59 kg bb (R); Height 5 ft. 8 in. (172.72 cm) (R); Pain 9/10; 23:18 Body Mass Index 35.73 (106.59 kg, 172.72 cm) bb MDM: 23:23 Patient medically screened. pkl 23:31 Data reviewed: vital signs, nurses notes. pkl Administered Medications: No medications were administered Disposition: 12/26/19 23:37 Discharged to Home. Impression: Multiple skin tags both axillas. - Condition is Stable. - Medication Reconciliation Form, Thank You Letter, Antibiotic Education, Prescription Opioid Use form. - Follow up: Talha Schwab MD; When: 2 - 3 days; Reason: Re-evaluation by your physician. - Problem is new. - Symptoms are unchanged. Signatures: Parth Amato MD MD pkl Elayne Chavez RN RN bb Corrections: (The following items were deleted from the chart) 23:46 23:37 12/26/2019 23:37 Discharged to Home. Impression: Multiple skin tags both axillas. bb Condition is Stable. Forms are Medication Reconciliation Form, Thank You Letter, Antibiotic Education, Prescription Opioid Use. Follow up: Talha Schwab; When: 2 - 3 days; Reason: Re-evaluation by your physician. Problem is new. Symptoms are unchanged. pkl
[2019-12-27 01:03] VITALS: BP 134/85; TEMP 98.3; O2SAT 99
== END 2019-12-26 23:46 | disposition home or self-care (01) ==
LOC: ER 22:59
DX: L91.8 Other hypertrophic disorders of the skin (principal); Z88.8 Allergy status to other drugs, medicaments and biological substances; E03.9 Hypothyroidism, unspecified; E11.9 Type 2 diabetes mellitus without complications; E78.00 Pure hypercholesterolemia, unspecified; I10 Essential (primary) hypertension
CPT/HCPCS: 99283

== ENCOUNTER 2019-12-31 14:40 | Emergency (ER) | payer OTHER ==
--- OUTSIDE RECORDS SUMMARY | 2019-12-31 14:42 | XMS REPORT | Clinical Summary ---
:1965 Author Organization [facility] Address [address] [place] [address] Care Team Providers Name Role Phone Unavailable [...] Not on file Results Not on fileafter 12/30/2018 Insurance Payer Benefit Plan / Subscriber ID Effective Dates Phone Addre ss Type Group [employer] HMO [id number] 2015-Daisy Phipps Contracted ALL t Advance Directives For more information, please contact: [phone] Code Status Date Activated Date Inactivated Comments Full Code 06/30/2016 7:46 PM 07/04/2016 5:23 PM This code status was determined by: Patient
--- OUTSIDE RECORDS SUMMARY | 2019-12-31 14:43 | XMS REPORT | Continuity of Care Document ---
:1965 Author Organization [facility] t Address [facility] [place] [address] Care Team Providers Name Role Phone FAITH GOMEZ Attending Clinician Unavailable ILIANA GOMEZ Admitting Clinician Unavailable Problems Condition Condition Condition Status Onset Resolution Last Treating Co mments Source Name Details Category Date Date Treatment Clinician Date Epididymit Epididymit Disease Active [facility] - 00:[facility]: Medical 00 [place] DM2 DM2 Disease Active [facility] (diabetes (diabetes [facility] - mellitus, mellitus, 00:00: Medi timothy type 2) type 2) 00 Center HTN HTN Disease Active [facility] (hypertens (hypertens 24 Cindy kes - ion) ion) 00:00: Medical 00 [place] Hypothyroi Hypothyroi Disease Active [facility] - [facility]: Medical 00 Center Allergies, Adverse Reactions, Alerts Allergy Allergy Status Severity Reaction(s) Onset Inactive Treating Comm ents Source Name Type Date Date Clinician Ibuprofe Propensi Active [facility]ney [facility] ty to 4-24 [facility] - adverse 00:00: Medical reaction 00 [facility] s Metformi Propensi Active Kidney [facility] to 4-24 problems [facility] - adverse 00:00: Medical reaction 00 [place] s Family History Family Member Diagnosis Comments Start Date Stop Date Source Natural brother Kidney disease [facility] Natural mother Diabetes [facility] Natural sister Diabetes [facility] Social History Social Habit Start Date Stop Date Quantity Comments Source Sex Assigned At [facility] Tobacco use and 2016-07-01 2016-07-01 Former user KATELIN Clemente - exposure 00:00:00 00:00:00 [facility] Alcohol intake 2016-07-01 2016-07-01 Current KATELIN Rodas es - 00:00:00 00:00:00 non-drinker of Medical Ce nter alcohol (finding) History of 1986-06-30 User [address]okeless [facility] - tobacco use 00:00:00 tobacco [facility] Smoking Status Start Date Stop Date Source Former smoker 2016-07-01 00:00:00 2016-07-01 00:00:[address] [facility] Medications Ordered Filled Start Stop Current Ordering Indication Dosage Frequency Signature Comments Components Source Medication Medication Date Date Medication? Clinician (SIG) Name Name atenolol Yes 50mg QD Take [address] [facility] (TENORMIN) 4-28 by mouth [facility] - 50 MG 15:23: daily. Medical tablet 08 Center oxybutynin Yes 5mg [id number] Take [address] [facility] (DITROPAN) 4-28 [id number] by mouth 3 [facility] - 5 MG [...] 1095) No growth in 5 days POCT-GLUCOSE [id number] 12:04:00 Test Item Value Reference Range Interpretation Comments POC-GLUCOSE METER 179 mg/dL 70-110 H TESTED AT [facility] 6720 (BEAKER) (test code = AD[place]FO [place] 1538) [address] BASIC METABOLIC [id number] 09:51:00 Test Item Value Reference Range Interpretation [...] PATIEN TS. CBC W/PLT COUNT & AUTO [id number] 09:20:00 Test Item Value Reference Range Interpretation [...] L 0.00-0.20 (test code = 417) 0.00POCT-GLUCOSE [id number] 07:15:00 Test Item Value Reference Range Interpretation Comments POC-GLUCOSE METER 246 mg/dL 70-110 H TESTED AT [facility] 6720 (BEAKER) (test code = [place]FO [place] 1538) [id number] POCT-GLUCOSE [id number] 21:12:00 Test Item Value Reference Range Interpretation Comments POC-GLUCOSE METER 89 mg/dL 70-110 TESTED AT [place] [address] ([facility]) (test code = [place] [address] 1538) POCT-GLUCOSE [id number] 17:12:00 Test Item Value Reference Range Interpretation Comments POC-GLUCOSE METER 217 mg/dL 70-110 H TESTED AT [place] [address] ([facility]) (test code = ADOLFO Willett [facility] 1538) [address] URINE [id number] 12:07:00 Test Item Value Reference Range Interpretation Comments CULTURE ([facility]) (test <10,000 col/mL skin code = 1095) candi POCT-GLUCOSE [id number] 11:30:00 Test Item Value Reference Range Interpretation Comments POC-GLUCOSE METER 205 mg/dL 70-110 H TESTED AT [place] [address] ([facility]) (test code = ADOLFO Willett [facility] 1538) [id number] POCT-GLUCOSE [id number] 07:36:00 Test Item Value Reference Range Interpretation Comments POC-GLUCOSE METER 195 mg/dL 70-110 H TESTED AT [place] [address] ([facility]) (test code = [facility] Tamie [facility] 1538) [address] CBC W/PLT COUNT & AUTO [id number] 05:14:00 Test Item Value Reference Range Interpretation Comments WHITE BLOOD CELL COUNT ([facility]) 6.7 K/ L 4.0-10.0 (test code = 775) RED BLOOD CELL COUNT ([facility]) 4.40 M/ L 4.20-5.80 (test code = [...] 0.00-0.20 (test code = 417) 0.00BASI METABOLIC [id number] 05:14:00 Test Item Value Reference Range Interpretation [...] NOT APPLICABLE FOR DIALYSIS PATIEN TS. POCT-GLUCOSE [id number] 21:04:00 Test Item Value Reference Range Interpretation Comments POC-GLUCOSE METER 178 mg/dL 70-110 H TESTED AT [place] [address] ([facility]) (test [facility] = [facility] 1538) [address] POCT-GLUCOSE [id number] 17:07:00 Test Item Value Reference Range Interpretation Comments POC-GLUCOSE METER 88 mg/dL 70-110 TESTED AT [place] [address] ([facility]) (test code = [facility] Tamie [facility] [address] 1538) POCT-GLUCOSE [id number] 12:30:00 Test Item Value Reference Range Interpretation Comments POC-GLUCOSE METER 107 mg/dL 70-110 TESTED AT [place] [address] ([facility]) (test code = [facility] Tamie [facility] 1538) [id number] POCT-GLUCOSE [id number] 07:46:00 Test Item Value Reference Range Interpretation Comments POC-GLUCOSE METER 169 mg/dL 70-110 H TESTED AT [place] [address] ([facility]) (test code = [facility] 1538) [address] CBC W/PLT COUNT & AUTO [id number] 07:42:00 Test Item Value Reference Range Interpretation Comments WHITE BLOOD CELL COUNT ([facility]) 6.5 K/ L 4.0-10.0 (test code = 775) RED BLOOD CELL COUNT ([facility]) 4.57 M/ L 4.20-5.80 (test code = [...] 0.00-0.20 (test code = 417) 0.00BASI METABOLIC [id number] 06:13:00 Test Item Value Reference Range Interpretation [...] NOT APPLICABLE FOR DIALYSIS PATIEN TS. POCT-GLUCOSE [id number] 22:12:00 Test Item Value Reference Range Interpretation Comments POC-GLUCOSE METER 238 mg/dL 70-110 H TESTED AT [place] [address] (BEAKER) (test code = ADOLFO [place] 1538) [address] POCT-GLUCOSE [id number] 17:25:00 Test Item Value Reference Range Interpretation Comments POC-GLUCOSE METER 102 mg/dL 70-110 TESTED AT [place] [address] (BEAKER) (test code = [facility] Tamie [facility] 1538) [address] URINALYSIS W/ [id number] 12:50:00 Test Item Value Reference Range Interpretation [...] /HPF SOURCE(BEAKER) (test code = 2795) POCT-GLUCOSE [id number] 12:04:00 Test Item Value Reference Range Interpretation Comments POC-GLUCOSE METER 226 mg/dL 70-110 H TESTED AT [place] [id number] (BEAKER) (test code = [facility] Tamie [facility] 1538) [address] POCT-GLUCOSE [id number] 08:00:00 Test Item Value Reference Range Interpretation Comments POC-GLUCOSE METER 300 mg/dL 70-110 H TESTED AT [facility] 67[address] (BEAKER) (test code = [place] 1538) [address] BASIC METABOLIC [id number] 06:50:00 Test Item Value Reference Range Interpretation [...] PATIEN TS. CBC W/PLT COUNT & AUTO [id number] 06:01:00 Test Item Value Reference Range Interpretation [...] L 0.00-0.20 (test code = 417) 0.00POCT-GLUCOSE [id number] 21:25:00 Test Item Value Reference Range Interpretation Comments POC-GLUCOSE METER 279 mg/dL 70-110 H TESTED AT [facility] 67[address] (BEAKER) (test code = [place] 1538) [id number] HEMOGLOBIN [id number] 21:13:00 Test Item Value Reference Range Interpretation Comments HEMOGLOBIN A1C (BEAKER) (test code = 10.7 % 4.3-6.1 H 368) CBC W/PLT COUNT & AUTO [id number] 20:47:00 Test Item Value Reference Range Interpretation [...] L 0.00-0.20 (test code = 417) 0.00POCT-GLUCOSE [id number] 18:31:00 Test Item Value Reference Range Interpretation Comments POC-GLUCOSE METER 205 mg/dL 70-110 H TESTED AT [facility] 6720 (AKER) (test code = [place] 1538) [id number]
[2019-12-31 16:03] LABS: Absolute Lymphocytes (CBC) 1.4 K/uL (0.7-4.9); Basophils % 0.8 % (0-1.3); Hematocrit 42.5 % (39.6-49.0); Lymphocytes % 27.6 % (15.3-44.8); MPV 11.7 fL (7.6-11.3); RBC Red Blood Cell Count 4.83 M/uL (4.33-5.43)
[2019-12-31 16:05] LABS: Potassium 4.3 mmol/L (3.5-5.1)
[2019-12-31] MEDS ORDERED: FENTANYL CITR 100 MCG/2 ML ONE (16:42)
[2019-12-31] MEDS ORDERED: NA CHLORIDE 0.9% 500 ML ONE (16:42)
--- NOTE | 2019-12-31 17:06 | RAD REPORT ---
EXAM DESCRIPTION: CT - Stone Protocol - 12/31/2019 4:53 pm CLINICAL HISTORY: Flank pain. back pain COMPARISON: Abdomen Pelvis W Contrast dated 11/20/2018 TECHNIQUE: Axial images were obtained without oral or IV contrast. Lack of contrast limits solid org an and vascular assessment. The [id number] spans the entirety of the system partially obscuring uppermost abdomen and lung bases. Coronal reformatted images were obtained and reviewed. All CT scans are performed using dose optimization technique as appropriate and may include automated exposure control or mA/KV adjustment according to patient size. FINDINGS: The lower lung villagran are clear. Imaged portions of the liver and spleen show no suspicious findings on non-contrast imaging. The panc reas and adrenal glands are normal. No pathologic lymphadenopathy in the abdomen or pelvis. No urinary tract stones or obstructive uropathy. No bowel obstruction, free air, free fluid or abscess. Normal appendix noted.Moderate stool is retain ed throughout the colon. No significant bony abnormality. IMPRESSION: No urinary tract stones or obstructive uropathy. Moderate stool is retained throughout the colon.
--- NOTE | 2019-12-31 18:17 | EDPHYS ---
Physician Documentation [facility] Name: Ramirez Chaudhari Age: 54 yrs Sex: Male : 1965 Arrival Date: 12/31/2019 Time: 14:50 Bed 5 Private MD: ED Physician Brodie Zheng HPI: 12/30 15:13 This 54 yrs old Male presents to ER via Wheelchair with complaints of Back cp Pain. 15:13 The patient presents with pain that is acute, with no known mechanism of injury, and cp tenderness. The symptoms are located in the low back. 15:13 Onset: The symptoms/episode began/occurred yesterday. cp 15:13 The pain does not radiate. cp 15:13 Associated signs and symptoms: Pertinent negatives: abdominal pain, constipation, fever.cp Historical: - Allergies: 14:52 Ibuprofen; sv 14:52 metformin; sv - PMHx: 14:52 ADD/ADHD; Diabetes - IDDM; GERD; Gout; High Cholesterol; Hydrocele Left Testicle; sv Hypertension; Hypothyroidism; Migraines; Paraplegia; Renal Disease; Spinal Stroke; - PSHx: 14:52 Spinal surgery; sv - Immunization history:: Adult Immunizations unknown. - Social history:: Smoking status: unknown. ROS: 15:20 Back: Positive for pain at rest, pain with movement, of the low back area and mid back cp area. 15:20 Constitutional: Negative for body aches, chills, fever, poor PO intake. cp Exam: 15:25 Constitutional: The patient appears in no acute distress, alert, awake, non-toxic, well cp developed, well nourished. 15:25 Head/Face: Normocephalic, atraumatic. cp 15:25 Eyes: Periorbital structures: appear normal, Conjunctiva: normal, no exudate, no injection, Sclera: no appreciated abnormality, Lids and lashes: appear normal, bilaterally. 15:25 ENT: External ear(s): are unremarkable, Nose: is normal, Mouth: Lips: moist, Oral mucosa: moist, Posterior pharynx: Airway: no evidence of obstruction, patent. 15:25 Neck: ROM/movement: is normal, is supple, without pain, no range of motions limitations. 15:25 Chest/axilla: Inspection: normal. 15:25 Cardiovascular: Rate: normal, Rhythm: regular. 15:25 Respiratory: the patient does not display signs of respiratory distress, Respirations: normal, no use of accessory muscles, labored breathing, is not present, Breath sounds: are clear throughout, no decreased breath sounds. 15:25 Abdomen/GI: Inspection: abdomen appears normal, Palpation: abdomen is soft and non-tender, in all quadrants. 15:25 Back: pain, that is moderate, of the lumbar area, left low back and left mid back, ROM is painful. 15:25 Skin: no rash present. 15:25 Neuro: Orientation: to person, place \T\ time. Mentation: is normal, Gait: not tested. paraplegic. Vital Signs: 14:52 BP 126 / 94; Pulse 92; Resp 16; Temp 97.8; Pulse Ox 98% ; sv 15:15 BP 122 / 90; Pulse 88; Resp 18; Pulse Ox 98% ; ph 16:39 BP 118 / 95; Pulse 87; Resp 18; Pulse Ox 99% on R/A; ph 17:29 BP 150 / 97; Pulse 84; Resp 18; Pulse Ox 99% on R/A; ph MDM: 15:11 Patient medically screened. cp 16:00 Differential diagnosis: Cholelithiasis chronic back pain, Fracture Osteomyelitis cp Pyelonephritis Ureterolithiasis. 18:15 Data reviewed: vital signs, nurses notes, lab test result(s), radiologic studies, CT cp scan, and as a result, I will discharge patient. 18:15 Counseling: I had a detailed discussion with the patient and/or guardian regarding: the cp historical points, exam findings, and any diagnostic results supporting the discharge/admit diagnosis, lab results, radiology results, the need for outpatient follow up, a family practitioner, to return to the emergency department if symptoms worsen or persist or if there are any questions or concerns that arise at home. 18:15 Response to treatment: the patient's symptoms have markedly improved after treatment, cp and as a result, I will discharge patient. ED course: Pain improved with meds. 18:20 ED course: review of website [facility] Prescription Monitoring is negative for any cp current RXs for narcotic medications. 12/30 15:17 Order name: CBC with Diff cp 12/30 15:17 Order name: BMP cp 12/30 15:17 Order name: CBC with Automated Diff; Complete Time: 16:08 EDHI 12/30 15:17 Order name: Basic Metabolic Panel; Complete Time: 16:08 [facility] 12/30 18:33 Interpretation: Normal except: GLUC 425; BUN 36; CRE 1.69; GFR 43. 12/30 15:19 Order name: Procalcitonin; Complete Time: 17:06 12/30 17:06 Interpretation: Procalcitonin 0.07; Reviewed. 12/30 15:19 Order name: Urine Microscopic Only 12/30 15:17 Order name: IV; Complete Time: 15:55 12/30 16:08 Order name: CT Stone Protocol; Complete Time: 17:13 12/30 17:14 Interpretation: Report reviewed. 12/30 18:43 Order name: Urine Culture [facility] 12/30 18:45 Order name: Urine Dipstick--Ancillary (enter results) 12/30 18:46 Order name: Urine Dipstick-Ancillary [facility] 12/30 15:19 Order name: Urine Dipstick-Ancillary (obtain specimen); Complete Time: 18:34 cp Administered Medications: 16:38 Drug: NS 0.9% 500 ml Route: IV; Rate: bolus; Site: right antecubital; ph 17:30 Follow up: Response: No adverse reaction; IV Status: Completed infusion; IV Intake: ph 500ml 16:39 Drug: fentaNYL (PF) 25 mcg Route: IVP; Site: right antecubital; ph 17:00 Follow up: Response: No adverse reaction; RASS: Alert and Calm (0) ph 19:00 Drug: Rocephin 1 grams Route: IV; Rate: calculated rate; Site: left antecubital; mg2 19:05 Follow up: Response: No adverse reaction; IV Status: Completed infusion ph Disposition: 18:30 Chart complete. 12/31 07:36 Co-signature as Attending Physician, Brodie Zheng MD. rn Disposition: 12/31/19 18:16 Discharged to Home. Impression: Low back pain, Urinary tract infection, site not specified. - Condition is Stable. - Discharge Instructions: Back Pain, Adult. - Prescriptions for Tylenol- Codeine #3 300-30 mg Oral Tablet - take 2 tablets by ORAL route every 8 hours As needed; 20 tablet. Cyclobenzaprine 10 mg Oral Tablet - take 1 tablet by ORAL route every 8 hours As needed; 20 tablet. cefpodoxime 200 mg Oral Tablet - take 1 tablet by ORAL route every 12 hours for 10 days with food; 20 tablet. - Medication Reconciliation Form, Thank You Letter, Antibiotic Education, Prescription Opioid Use form. - Follow up: Private Physician; When: 2 - 3 days; Reason: Recheck today's complaints. - Problem is new. - Symptoms have improved. Signatures: Dispatcher [employer] EDBina Rosenthal RN RN Brodie Key MD MD rn Hall, Patricia, RN RN ph Hank Malone PA PA cp Krish Portillo RN RN mg2 Corrections: (The following items were deleted from the chart) 12/30 18:35 18:16 12/31/2019 18:16 Discharged to Home. Impression: Low back pain. Condition is cp Stable. Forms are Medication Reconciliation Form, Thank You Letter, Antibiotic Education, Prescription Opioid Use. Follow up: Private Physician; When: 2 - 3 days; Reason: Recheck today's complaints. Problem is new. Symptoms have improved. cp 19:15 18:35 12/31/2019 18:16 Discharged to Home. Impression: Low back pain; Urinary tract mg2 infection, site not specified. Condition is Stable. Discharge Instructions: Back Pain, Adult. Prescriptions for Tylenol-Codeine #3 300-30 mg Oral Tablet - take 2 tablets by ORAL route every 8 hours As needed; 20 tablet, Cyclobenzaprine 10 mg Oral Tablet - take 1 tablet by ORAL route every 8 hours As needed; 20 tablet, cefpodoxime 200 mg Oral Tablet - take 1 tablet by ORAL route every 12 hours for 10 days with food; 20 tablet. and Forms are Medication Reconciliation Form, Thank You Letter, Antibiotic Education, Prescription Opioid Use. Follow up: Private Physician; When: 2 - 3 days; Reason: Recheck today's complaints. Problem is new. Symptoms have improved. cp
--- NOTE | 2019-12-31 18:17 | ER ---
Nurse's Notes [facility] Name: Ramirez Chaudhari Age: 54 yrs Sex: Male : 1965 Arrival Date: 12/31/2019 Time: 14:50 Bed 5 Private MD: Diagnosis: Low back pain;Urinary tract infection, site not specified Presentation: 12/30 14:52 Chief complaint: Patient states: back pain x 1 day. Coronavirus screen: Client denies sv travel out of the [place] in the last 14 days. At this time, the client does not indicate any symptoms associated with coronavirus-19. Ebola Screen: No symptoms or risks identified at this time. Risk Assessment: Do you want to hurt yourself or someone else? Patient reports no desire to harm self or others. Onset of symptoms was December 30, 2019. 14:52 Method Of Arrival: Wheelchair sv 14:52 Acuity: NOHEMI 4 sv 14:52 Initial Sepsis Screen: Does the patient meet any 2 criteria? No. Patient's initial sv sepsis screen is negative. Does the patient have a suspected source of infection? No. Patient's initial sepsis screen is negative. Triage Assessment: 14:52 General: Appears in no apparent distress. Behavior is calm, cooperative, appropriate sv for age. Pain: Complains of pain in back. Neuro: Level of Consciousness is awake, alert, obeys commands, Oriented to person, place, time, situation. Respiratory: Respiratory effort is even, unlabored. Historical: - Allergies: 14:52 Ibuprofen; sv 14:52 metformin; sv - PMHx: 14:52 ADD/ADHD; Diabetes - IDDM; GERD; Gout; High Cholesterol; Hydrocele Left Testicle; sv Hypertension; Hypothyroidism; Migraines; Paraplegia; Renal Disease; Spinal Stroke; - PSHx: 14:52 Spinal surgery; sv - Immunization history:: Adult Immunizations unknown. - Social history:: Smoking status: unknown. Screenin:39 Abuse screen: Denies threats or abuse. Denies injuries from another. Nutritional ph screening: No deficits noted. Tuberculosis screening: No symptoms or risk factors identified. Fall Risk None identified. Assessment: 15:11 General: Appears in no apparent distress. uncomfortable. Pain: Complains of pain in ph left low back and right low back Pain does not radiate. Pain currently is 10 out of 10 on a pain scale. Quality of pain is described as sharp. Neuro: Level of Consciousness is awake, alert, obeys commands, Reports. Cardiovascular: Reports None. Respiratory: No deficits noted. GI: No signs and/or symptoms were reported involving the gastrointestinal system. Reports Patient currently denies. : Valera in place. Musculoskeletal: Musculoskeletal: BLE paraplegic. 16:30 Reassessment: Patient appears in no apparent distress at this time. Patient and/or ph family updated on plan of care and expected duration. Pain level reassessed. Patient is alert, oriented x 3, equal unlabored respirations, skin warm/dry/pink. 17:30 Reassessment: Patient appears in no apparent distress at this time. Patient and/or ph family updated on plan of care and expected duration. Pain level reassessed. Patient is alert, oriented x 3, equal unlabored respirations, skin warm/dry/pink. Vital Signs: 14:52 BP 126 / 94; Pulse 92; Resp 16; Temp 97.8; Pulse Ox 98% ; sv 15:15 BP 122 / 90; Pulse 88; Resp 18; Pulse Ox 98% ; ph 16:39 BP 118 / 95; Pulse 87; Resp 18; Pulse Ox 99% on R/A; ph 17:29 BP 150 / 97; Pulse 84; Resp 18; Pulse Ox 99% on R/A; ph ED Course: 14:50 Patient arrived in ED. ds1 14:51 Arm band placed on. sv 14:52 Triage completed. sv 14:55 Sparkle Kovacs, NORBERTO is Primary Nurse. ph 15:02 Hank Malone PA is PHCP. cp 15:02 Brodie Zheng MD is Attending Physician. cp 15:39 Initial lab(s) drawn, by tn, sent to lab. Missed attempt(s): 20 gauge in right forearm. dh3 Bleeding controlled, band aid applied, catheter tip intact. 15:55 Inserted saline lock: 20 gauge in right antecubital area, using aseptic technique. dh3 16:36 Radiology exam delayed due to PJ TO CALL WHEN PTS READY TO BE TRANSPORTED TO CT. bq 16:39 Patient has correct armband on for positive identification. Bed in low position. Call ph light in reach. Side rails up X 1. Pulse ox on. NIBP on. Door closed. Noise minimized. 16:40 No provider procedures requiring assistance completed. ph 16:53 CT Stone Protocol In Process Unspecified. EDMS 18:22 Urine collected: Valera catheter specimen, clear, dwayne colored. jp3 18:34 Urine Microscopic Only Sent. jp3 19:07 Primary Nurse role handed off by Sparkle Kovacs RN mw2 19:14 IV discontinued, intact, bleeding controlled, No redness/swelling at site. Pressure mg2 dressing applied. Administered Medications: 16:38 Drug: NS 0.9% 500 ml Route: IV; Rate: bolus; Site: right antecubital; ph 17:30 Follow up: Response: No adverse reaction; IV Status: Completed infusion; IV Intake: ph 500ml 16:39 Drug: fentaNYL (PF) 25 mcg Route: IVP; Site: right antecubital; ph 17:00 Follow up: Response: No adverse reaction; RASS: Alert and Calm (0) ph 19:00 Drug: Rocephin 1 grams Route: IV; Rate: calculated rate; Site: left antecubital; mg2 19:05 Follow up: Response: No adverse reaction; IV Status: Completed infusion ph Intake: 17:30 IV: 500ml; Total: 500ml. ph Outcome: 18:16 Discharge ordered by MD. cp 19:15 Discharged to home via wheelchair, with family. mg2 19:15 Condition: stable 19:15 Discharge instructions given to patient, family, Instructed on discharge instructions, follow up and referral plans. Demonstrated understanding of instructions, follow-up care. 19:15 Patient left the ED. mg2 Addendum: 01/04/2020 07:46 Addendum: Culture Results: Positive urine culture. Bacteria is resistant to, has s s intermediate sensitivity, or is not tested against prescribed antibiotics. Report given to JAMIE for further evaluation and then to help desk rep for follow up with patient. 15:45 Addendum: Other Spoke with patient and Aldair with Dr. Powers office. Faxed urine culture s s results to Dr. Powers office. Signatures: Dispatcher [employer] EDBina Rosenthal RN RN Fadumo Barnett Demi ds1 Autumn Marroquin RN RN Sparkle Kovacs RN RN Hank Malone, THO PA Maisha Silverman 3 Morgan Diallo mw2 Krish Portillo RN RN mg2 Emmanuel Can jp3 Corrections: (The following items were deleted from the chart) 12/30 14:54 14:52 Pulse 92bpm; Resp 16bpm; Pulse Ox 98%; Temp 97.8F; sv sv
[2019-12-31 18:41] LABS: Urine Amorphous Sediment 2+ /HPF (NONE SEEN)
[2019-12-31 18:42] LABS: Urine Bacteria 20-50 /HPF (NONE SEEN); Urine Culture Reflex Order REFLEXED; Urine RBC <5 /HPF (NONE SEEN)
[2019-12-31 18:49] LABS: Urine Blood TRACE (NEG); Urine Glucose 2+ (NEG); Urine Protein 1+ (NEG); Urine Specific Gravity 1.015 (1.005-1.030)
[2019-12-31] MEDS ORDERED: CEFTRIAXONE/SWI 1gm 1 GM/10 ML SYR ONE (19:06)
[2019-12-31 20:00] VITALS: TEMP 97.8
[2019-12-31 20:03] VITALS: O2SAT 99
[2019-12-31 20:06] VITALS: BP 150/97
== END 2019-12-31 19:15 | disposition home or self-care (01) ==
LOC: ER 14:40
DX: N39.0 Urinary tract infection, site not specified (principal); I10 Essential (primary) hypertension; G82.20 Paraplegia, unspecified; Z88.6 Allergy status to analgesic agent; Z88.8 Allergy status to other drugs, medicaments and biological substances
CPT/HCPCS: 87088; 85025; 87086; 80048; 36415; 87077; 87186; 84145; 76377; 74176; 99284; J3010; J0696; J7040; 81003; 81015

== ENCOUNTER 2020-01-09 09:49 | Emergency (ER) | payer OTHER ==
[2011-09-04 06:35] VITALS: BP 139/94
--- OUTSIDE RECORDS SUMMARY | 2020-01-09 09:58 | XMS REPORT | Clinical Summary ---
:1965 [address] [facility] [place] [place] Address [address] [place] [address] Care Team Providers Name Role Phone Unavailable [...] Not on file Results Not on fileafter 01/08/2019 Insurance Payer Benefit Plan / Subscriber ID Effective Dates Phone Addre ss Type Group [employer] TEX[employer] HMO [id number] 2015-Daisy Phipps Contracted ALL t Advance Directives For more information, please contact: [phone] Code Status Date Activated Date Inactivated Comments Full Code 06/30/2016 7:46 PM 07/04/2016 5:23 PM This code status was determined by: Patient
--- OUTSIDE RECORDS SUMMARY | 2020-01-09 09:58 | XMS REPORT | Continuity of Care Document ---
:1965 Author Organization [facility] t Address [facility] [place] [address] Care Team Providers Name Role Phone FIATH GOMEZ Attending Clinician Unavailable ILIANA GOMEZ Admitting Clinician Unavailable Problems Condition Condition Condition Status Onset Resolution Last Treating Co mments Source Name Details Category Date Date Treatment Clinician Date Epididymit Epididymit Disease Active [facility] - 00:[facility]: [facility] 00 [place] DM2 DM2 Disease Active [facility] (diabetes (diabetes [facility] - mellitus, mellitus, 00:00: Medi tiomthy type 2) type 2) 00 Center HTN HTN Disease Active [facility] (hypertens (hypertens -24 Cindy kes - ion) ion) 00:00: Medical 00 [place] Hypothyroi Hypothyroi Disease Active [facility] - [facility]: [facility] 00 Center Allergies, Adverse Reactions, Alerts Allergy Allergy Status Severity Reaction(s) Onset Inactive Treating Comm ents Source Name Type Date Date Clinician Ibuprofe Propensi Active [facility] to 4-24 [facility] - adverse 00:00: Medical reaction 00 [place] [facility] Metformi Propensi Active [facility]ney [facility] ty to 4-24 problems [facility] - adverse 00:00: Medical reaction 00 [place] [facility] Family History Family Member Diagnosis Comments Start Date Stop Date Source Natural brother Kidney disease [facility] Natural mother Diabetes [facility] Natural sister Diabetes [facility] Social History Social Habit Start Date Stop Date Quantity Comments Source Sex Assigned At [facility] Tobacco use and 2016-07-01 2016-07-01 Former user KATELIN Clemente - exposure 00:00:00 00:00:00 [facility] Center Alcohol intake 2016-07-01 2016-07-01 Current KATELIN Rodas es - 00:00:00 00:00:00 non-drinker of Medical Ce nter alcohol (finding) History of 1986-06-[address] [facility] - tobacco use 00:00:00 [facility] Smoking Status Start Date Stop Date Source Former smoker 2016-07-01 00:00:00 2016-07-01 00:00:[address] [facility] Medications Ordered Filled Start Stop Current Ordering Indication Dosage Frequency Signature Comments Components Source Medication Medication Date Date Medication? Clinician (SIG) Name Name atenolol Yes 50mg QD Take [address] (TENORMIN) 4-28 by mouth [facility] - 50 MG 15:23: daily. Medical tablet 08 Center oxybutynin Yes 5mg [id number] Take [address] (DITROPAN) 4-28 [id number] by mouth 3 [facility] - 5 MG [...] 1095) No growth in 5 days POCT-GLUCOSE [id number] 12:04:00 Test Item Value Reference Range Interpretation Comments POC-GLUCOSE METER 179 mg/dL 70-110 H TESTED AT [facility] 6720 (BEAKER) (test code = [place] 1538) [id number] BASIC METABOLIC [id number] 09:51:00 Test Item Value Reference Range Interpretation [...] PATIEN TS. CBC W/PLT COUNT & AUTO [id number] 09:20:00 Test Item Value Reference Range Interpretation [...] L 0.00-0.20 (test code = 417) 0.00POCT-GLUCOSE [id number] 07:15:00 Test Item Value Reference Range Interpretation Comments POC-GLUCOSE METER 246 mg/dL 70-110 H TESTED AT [facility] 6720 (BEAKER) (test code = [place] 1538) [id number] POCT-GLUCOSE [id number] 21:12:00 Test Item Value Reference Range Interpretation Comments POC-GLUCOSE METER 89 mg/dL 70-110 TESTED AT [place] [address] ([facility]) (test code = [place] [address] 1538) POCT-GLUCOSE [id number] 17:12:00 Test Item Value Reference Range Interpretation Comments POC-GLUCOSE METER 217 mg/dL 70-110 H TESTED AT [place] [address] ([facility]) (test code = ADOLFO Willett [facility] 1538) [id number] URINE [id number] 12:07:00 Test Item Value Reference Range Interpretation Comments CULTURE ([facility]) (test <10,000 col/mL skin code = 1095) candi POCT-GLUCOSE [id number] 11:30:00 Test Item Value Reference Range Interpretation Comments POC-GLUCOSE METER 205 mg/dL 70-110 H TESTED AT [place] [address] ([facility]) (test code = ADOLFO [place] [facility] 1538) [id number] POCT-GLUCOSE [id number] 07:36:00 Test Item Value Reference Range Interpretation Comments POC-GLUCOSE METER 195 mg/dL 70-110 H TESTED AT [place] [address] ([facility]) (test code = [facility] Tamie [facility] 1538) [id number] CBC W/PLT COUNT & AUTO [id number] 05:14:00 Test Item Value Reference Range Interpretation Comments WHITE BLOOD CELL COUNT ([facility]) 6.7 K/ L 4.0-10.0 (test code = 775) RED BLOOD CELL COUNT ([facility]) 4.40 M/ L 4.20-5.80 (test [...] 0.00-0.20 (test code = 417) 0.00BASI METABOLIC [id number] 05:14:00 Test Item Value Reference Range Interpretation [...] NOT APPLICABLE FOR DIALYSIS PATIEN TS. POCT-GLUCOSE [id number] 21:04:00 Test Item Value Reference Range Interpretation Comments POC-GLUCOSE METER 178 mg/dL 70-110 H TESTED AT [place] [address] ([facility]) (test code = [facility] Willett [facility] 1538) [id number] POCT-GLUCOSE [id number] 17:07:00 Test Item Value Reference Range Interpretation Comments POC-GLUCOSE METER 88 mg/dL 70-110 TESTED AT [place] [address] ([facility]) (test code = [facility] Tamie [facility] [address] 1538) POCT-GLUCOSE [id number] 12:30:00 Test Item Value Reference Range Interpretation Comments POC-GLUCOSE METER 107 mg/dL 70-110 TESTED AT [place] [address] ([facility]) (test code = [facility] Tamie [facility] 1538) [id number] POCT-GLUCOSE [id number] 07:46:00 Test Item Value Reference Range Interpretation Comments POC-GLUCOSE METER 169 mg/dL 70-110 H TESTED AT [place] [address] ([facility]) (test code = [facility] 1538) [address] CBC W/PLT COUNT & AUTO [id number] 07:42:00 Test Item Value Reference Range Interpretation Comments WHITE BLOOD CELL COUNT ([facility]) 6.5 K/ L 4.0-10.0 (test code = 775) RED BLOOD CELL COUNT ([facility]) 4.57 M/ L 4.20-5.80 (test [...] 0.00-0.20 (test code = 417) 0.00BASI METABOLIC [id number] 06:13:00 Test Item Value Reference Range Interpretation [...] NOT APPLICABLE FOR DIALYSIS PATIEN TS. POCT-GLUCOSE [id number] 22:12:00 Test Item Value Reference Range Interpretation Comments POC-GLUCOSE METER 238 mg/dL 70-110 H TESTED AT [place] [address] (BEAKER) (test code = [place] 1538) [address] POCT-GLUCOSE [id number] 17:25:00 Test Item Value Reference Range Interpretation Comments POC-GLUCOSE METER 102 mg/dL 70-110 TESTED AT [place] [address] (BEAKER) (test code = [facility] Tamie [facility] 1538) [address] URINALYSIS W/ [id number] 12:50:00 Test Item Value Reference Range Interpretation [...] /HPF SOURCE(BEAKER) (test code = 2795) POCT-GLUCOSE [id number] 12:04:00 Test Item Value Reference Range Interpretation Comments POC-GLUCOSE METER 226 mg/dL 70-110 H TESTED AT [place] [id number] (BEAKER) (test code = [facility] Tamie [facility] 1538) [id number] POCT-GLUCOSE [id number] 08:00:00 Test Item Value Reference Range Interpretation Comments POC-GLUCOSE METER 300 mg/dL 70-110 H TESTED AT [facility] 6720 (BEAKER) (test code = [place] 1538) [address] BASIC METABOLIC [id number] 06:50:00 Test Item Value Reference Range Interpretation [...] PATIEN TS. CBC W/PLT COUNT & AUTO [id number] 06:01:00 Test Item Value Reference Range Interpretation [...] L 0.00-0.20 (test code = 417) 0.00POCT-GLUCOSE [id number] 21:25:00 Test Item Value Reference Range Interpretation Comments POC-GLUCOSE METER 279 mg/dL 70-110 H TESTED AT [facility] [address] (BEAKER) (test code = [place] 1538) [id number] HEMOGLOBIN [id number] 21:13:00 Test Item Value Reference Range Interpretation Comments HEMOGLOBIN A1C (BEAKER) (test code = 10.7 % 4.3-6.1 H 368) CBC W/PLT COUNT & AUTO [id number] 20:47:00 Test Item Value Reference Range Interpretation [...] L 0.00-0.20 (test code = 417) 0.00POCT-GLUCOSE [id number] 18:31:00 Test Item Value Reference Range Interpretation Comments POC-GLUCOSE METER 205 mg/dL 70-110 H TESTED AT [facility] 6720 (AKER) (test code = [place] 1538) [id number]
--- NOTE | 2020-01-09 10:51 | ER ---
Nurse's Notes [facility] Name: Ramirez Chaudhari Age: 54 yrs Sex: Male : 1965 Arrival Date: 01/09/2020 Time: 09:53 Bed Waiting Private MD: Ramon Powers E Diagnosis: Presentation: 01/08 09:53 Chief complaint: Patient states: Pt stated that Dr Powers office sent him here to get a sv PICC line placed for IV antibiotics. Note I spoke with Manuel THORNTON, mix house operator and informed of pt's situation of needing a PICC line. He stated that he would see if we could get an ICU nurse to come in [facility] that can place it. Pt updated on POC. :53 Method Of Arrival: Wheelchair sv 10:20 Note I spoke with Lavonne GUSSET STITCHER at Dr Powers office and asked if they are able to write an sv order for the pt to get a PICC line and IV antibiotics. Lavonne stated that they cannot write for that because they cannot follow through with him for this. 10:40 Note Elena THORNTON, spoke with staff at Dr Gibbs office at [phone] and informed them of sv the pt needing IV therapy for a urine infection. They stated that Dr Gibbs can see him at this time. Address and phone number given to pt and spouse and instructed to go straight to his office at this time. ED Course: 09:53 Patient arrived in ED. mr 09:53 Ramon Powers MD is Private Physician. mr 09:55 Arm band placed on. sv Administered Medications: No medications were administered Outcome: 10:51 Patient left the ED. sv Signatures: Bina Ceron RN RN sv Tere Keenan mr Corrections: (The following items were deleted from the chart) 10:51 10:40 Note Elena THORNTON, spoke with staff at Dr Gibbs office at [phone] and informed sv them of the pt needing IV therapy for a urine infection. They stated that Dr Gibbs can see him at this time. Address and phone number given to pt and spouse and instructed to go straight to his office at this time. sv
== END 2020-01-09 10:51 | disposition left against medical advice (07) ==
LOC: ER 09:49
DX: Z53.21 Procedure and treatment not carried out due to patient leaving prior to being seen by health care provider (principal)
CPT/HCPCS: 99281

== ENCOUNTER 2020-02-07 06:24 | Day surgery (SDC) | payer OTHER ==
[2020-02-06 13:43] LABS: Urine Appearance TURBID; Urine Bilirubin NEGATIVE (NEG); Urine Color YELLOW; Urine Glucose 3+ (NEG); Urine Protein 2+ (NEG); Urine Specific Gravity >=1.030 (1.005-1.030); Urine Urobilinogen 0.2 mg/dL (0.2-1.0)
[2020-02-06 13:46] LABS: Protime INR 0.89
[2020-02-06 13:47] LABS: Urine Microscopic Reflex ORDER UMIC
[2020-02-06 13:48] LABS: Absolute Lymphocytes (CBC) 1.6 K/uL (0.7-4.9); Basophils % 0.8 % (0-1.3); Hematocrit 46.1 % (39.6-49.0); Lymphocytes % 28.6 % (15.3-44.8); MPV 10.9 fL (7.6-11.3); RBC Red Blood Cell Count 5.28 M/uL (4.33-5.43)
--- NOTE | 2020-02-06 14:12 | RAD REPORT ---
EXAM DESCRIPTION: Owen Sanchez (2 Views)02/06/2020 2:04 pm CLINICAL HISTORY: Preop for genitourinary surgery COMPARISON: 2019 FINDINGS: The lungs appear clear of acute infiltrate. The heart is normal size. Blunting of left la teral costophrenic sulcus could be secondary to small pleural effusion or pleural thickening
[2020-02-06 14:25] LABS: Potassium 4.4 mmol/L (3.5-5.1)
[2020-02-06 15:05] LABS: Urine Blood TRACE (NEG)
[2020-02-06 15:23] LABS: Urine Bacteria <20 /HPF (NONE SEEN); Urine Mucus 2+ /HPF (NONE SEEN)
[~2020-02-07 06:24] MED LIST: AMPICILLIN SODIUM 2 GM in NA CHLORIDE 0.9% 100 ML IVPB SCH; Gentamicin Inj 240 MG in NA CHLORIDE 0.9% 100 ML IV SCH
--- OUTSIDE RECORDS SUMMARY | 2020-02-07 06:25 | XMS REPORT | Clinical Summary ---
:1965 Author Organization [facility] Address [address] [place] [address] Care Team Providers Name Role Phone Unavailable [...] Not on file Results Not on fileafter 02/06/2019 Insurance Payer Benefit Plan / Subscriber ID Effective Dates Phone Addre ss Type Group TEXAN[employer]US TEXAN[employer]US HMO [id number] 2015-Daisy Phipps Contracted ALL t Advance Directives For more information, please contact: [phone] Code Status Date Activated Date Inactivated Comments Full Code 06/30/2016 7:46 PM 07/04/2016 5:23 PM This code status was determined by: Patient
--- OUTSIDE RECORDS SUMMARY | 2020-02-07 06:26 | XMS REPORT | Continuity of Care Document ---
:1965 Author Organization [facility] t Address [address] [place] [address] Care Team Providers Name Role Phone FAITH GOMEZ Attending Clinician Unavailable ILIANA GOMEZ Admitting Clinician Unavailable Problems Condition Condition Condition Status Onset Resolution Last Treating Co mments Source Name Details Category Date Date Treatment Clinician Date Epididymit Epididymit Disease Active [facility], left is, left [facility]: [facility] 00 [place] DM2 DM2 Disease Active [facility] (diabetes (diabetes 24 [facility] - mellitus, mellitus, 00:00: Medi timothy type 2) type 2) 00 Center HTN HTN Disease Active [facility] (hypertens (hypertens -24 Cindy kes - ion) ion) 00:00: Medical 00 [place] Hypothyroi Hypothyroi Disease Active [facility] -[facility] Medical 00 Center Allergies, Adverse Reactions, Alerts Allergy Allergy Status Severity Reaction(s) Onset Inactive Treating Comm ents Source Name Type Date Date Clinician Ibuprofe Propensi Active [facility] ty to 4-24 [facility] - adverse 00:00: Medical reaction 00 Center s Metformi Propensi Active [facility]ney [facility] to 4-24 problems [facility] - adverse 00:00: Medical reaction 00 [place] s Family History Family Member Diagnosis Comments Start Date Stop Date Source Natural brother Kidney disease [facility] S t [facility] Natural mother [facility] Natural sister Diabetes [facility] Social History Social Habit Start Date Stop Date Quantity Comments Source Sex Assigned At [facility] Tobacco use and 2016-07-01 2016-07-[address] [facility] ukyonathan - exposure 00:00:00 00:00:00 [facility] Alcohol intake 2016-07-01 2016-07-01 Current [facility] - 00:00:00 00:00:00 non-drinker of Medical nter alcohol (finding) History of 1986-06-30 User of smokeless [facility] - tobacco use 00:00:00 tobacco Medical [place] Smoking Status Start Date Stop Date Source Former smoker 2016-07-01 00:00:00 2016-07-01 00:00:00 [facility] Medications Ordered Filled Start Stop Current Ordering Indication Dosage Frequency Signature Comments Components Source Medication Medication Date Date Medication? Clinician (SIG) Name Name atenolol Yes 50mg QD Take [address] [facility] (TENORMIN) 4-28 by mouth [facility] - 50 MG 15:23: daily. Medical tablet 08 Center oxybutynin Yes 5mg [id number] Take [address] [facility] (DITROPAN) 4-28 [id number] by mouth 3 [facility] - 5 MG [...] scale starts at 20 units . colchicine 2017- Yes .6mg Take 0.[address] [facility] (COLCRYS) 4-28 mg by [facility] - 0.6 mg 15:23: mouth 2 Medical tablet 08 (two) Center times daily as needed As needed for gout . Procedures This patient has no known procedures. Encounters Start End Encounter Admission Attending Care Care Encounter Source Date/Time Date/Time Type Type Clinicians Facility Department ID 2020-01-17 2020-01-17 Outpatient [facility] [id number] [facility] [facility] 2020-01-16 2020-01-16 Outpatient [facility] [id number] [facility] [facility] 2020-01-09 2020-01-09 Outpatient [facility] [id number] [facility] [facility] Results Test Description Test Time Test Comments Results Result Comments Source BLOOD CULTURE 2016-07-07 14:28:00 Test Item Value Reference Range Interpretation Comme nts CULTURE (BANNER) (test code = 1095) No growth in 5 days POCT-GLUCOSE [id number] 12:04:00 Test Item Value Reference Range Interpretation Comments POC-GLUCOSE METER 179 mg/dL 70-[address] [facility] 6720 (BANNER) (test code = ADOLFO [place] 779268) [address] BASIC METABOLIC [id number] 09:51:00 Test Item Value Reference Range Interpretation [...] PATIEN TS. CBC W/PLT COUNT & AUTO [id number] 09:20:00 Test Item Value Reference Range Interpretation [...] NEUTROPHILS ABSOLUTE COUNT 4.31 K/ L 1.80-8.00 ([facility]ANNER) (test code = 670) LYMPHOCYTES ABSOLUTE COUNT 1.23 K/ L 1.48-4.50 L ([facility]NER) (test code = 414) MONOCYTES ABSOLUTE COUNT (BEAKER) 0.28 K/ L 0.00-1.30 (test code = 415) EOSINOPHILS ABSOLUTE COUNT 0.21 K/ L 0.00-0.50 (AKER) (test code = 416) BASOPHILS ABSOLUTE COUNT (AKER) 0.03 K/ L 0.00-0.20 (test code = 417) 0.00POCT-GLUCOSE [id number] 07:15:00 Test Item Value Reference Range Interpretation Comments POC-GLUCOSE METER 246 mg/dL 70-110 H TESTED AT [place] [address] (BANNER) (test code = ADOLFO Willett [facility] 1538) [address] POCT-GLUCOSE [id number] 21:12:00 Test Item Value Reference Range Interpretation Comments POC-GLUCOSE METER 89 mg/dL 70-110 TESTED AT [place] [address] (BANNER) ([facility] = [facility] [address] 1538) POCT-GLUCOSE [id number] 17:12:00 Test Item Value Reference Range Interpretation Comments POC-GLUCOSE METER 217 mg/dL 70-110 H TESTED AT [place] [address] (BANNER) (test code = [facility] 1538) [address] URINE [id number] 12:07:00 Test Item Value Reference Range Interpretation Comments CULTURE (BANNER) (test <10,000 col/mL skin code = 1095) candi POCT-GLUCOSE [id number] 11:30:00 Test Item Value Reference Range Interpretation Comments POC-GLUCOSE METER 205 mg/dL 70-110 H TESTED AT [place] [address] (BANNER) (test code = [facility] 1538) [address] POCT-GLUCOSE [id number] 07:36:00 Test Item Value Reference Range Interpretation Comments POC-GLUCOSE METER 195 mg/dL 70-110 H TESTED AT [place] [address] (BANNER) (test code = [facility] 1538) [address] CBC W/PLT COUNT & AUTO [id number] 05:14:00 Test Item Value Reference Range Interpretation [...] 0.00-0.20 (test code = 417) 0.00BASI METABOLIC [id number] 05:14:00 Test Item Value Reference Range Interpretation [...] NOT APPLICABLE FOR DIALYSIS PATIEN TS. POCT-GLUCOSE [id number] 21:04:00 Test Item Value Reference Range Interpretation Comments POC-GLUCOSE METER 178 mg/dL 70-110 H TESTED AT [place] [address] (BANNER) (test code = [facility] 1538) [id number] POCT-GLUCOSE [id number] 17:07:00 Test Item Value Reference Range Interpretation Comments POC-GLUCOSE METER 88 mg/dL 70-110 TESTED AT [place] [address] (BANNER) (test [facility] = [facility] [address] 1538) POCT-GLUCOSE [id number] 12:30:00 Test Item Value Reference Range Interpretation Comments POC-GLUCOSE METER 107 mg/dL 70-110 TESTED AT [place] [address] (BANNER) (test code = [facility] Tamie [facility] 1538) [address] POCT-GLUCOSE [id number] 07:46:00 Test Item Value Reference Range Interpretation Comments POC-GLUCOSE METER 169 mg/dL 70-110 H TESTED AT [place] [id number] (BANNER) (test code = [facility] Tamie [facility] 1538) [address] CBC W/PLT COUNT & AUTO [id number] 07:42:00 Test Item Value Reference Range Interpretation [...] 0.00-0.20 (test code = 417) 0.00BASI METABOLIC [id number] 06:13:00 Test Item Value Reference Range Interpretation [...] NOT APPLICABLE FOR DIALYSIS PATIEN TS. POCT-GLUCOSE [id number] 22:12:00 Test Item Value Reference Range Interpretation Comments POC-GLUCOSE METER 238 mg/dL 70-[address] [facility] 6720 (BEAKER) (test code = ADOLFO [place] 1538) [address] POCT-GLUCOSE [id number] 17:25:00 Test Item Value Reference Range Interpretation Comments POC-GLUCOSE METER 102 mg/dL 70-[address] [facility] 6720 (BEAKER) (test code = ADOLFO [place] 1538) [address] URINALYSIS W/ [id number] 12:50:00 Test Item Value Reference Range Interpretation [...] /HPF SOURCE(BEAKER) (test code = 2795) POCT-GLUCOSE [id number] 12:04:00 Test Item Value Reference Range Interpretation Comments POC-GLUCOSE METER 226 mg/dL 70-[address] [facility] 6720 (BEAKER) (test [facility] = [facility] 1538) [address]48 POCT-GLUCOSE [id number] 08:00:00 Test Item Value Reference Range Interpretation Comments POC-GLUCOSE METER 300 mg/dL 70-[address] [facility] 67 (BEAKER) (test code = [facility] 1538) [address] BASIC METABOLIC [id number] 06:50:00 Test Item Value Reference Range Interpretation [...] PATIEN TS. CBC W/PLT COUNT & AUTO [id number] 06:01:00 Test Item Value Reference Range Interpretation [...] L 0.00-0.20 (test code = 417) 0.00POCT-GLUCOSE [id number] 21:25:00 Test Item Value Reference Range Interpretation Comments POC-GLUCOSE METER 279 mg/dL 70-[address] [facility] 6720 (BEAKER) (test code = ADOLFO [place] 1538) [address]312 HEMOGLOBIN [id number] 21:13:00 Test Item Value Reference Range Interpretation Comments HEMOGLOBIN A1C (BEAKER) (test code = 10.7 % 4.3-6.1 H 368) CBC W/PLT COUNT & AUTO [id number] 20:47:00 Test Item Value Reference Range Interpretation [...] LYMPHOCYTES ABSOLUTE COUNT 1.63 K/ L 1.48-4.50 (BANNER) (test code = 414) MONOCYTES ABSOLUTE COUNT (BANNER) 0.40 K/ L 0.00-1.30 (test code = 415) EOSINOPHILS ABSOLUTE COUNT 0.22 K/ L 0.00-0.50 (BANNER) (test code = 416) BASOPHILS ABSOLUTE COUNT (BANNER) 0.01 K/ L 0.00-0.20 (test code = 417) 0.00POCT-GLUCOSE [id number] 18:31:00 Test Item Value Reference Range Interpretation Comments POC-GLUCOSE METER 205 mg/dL 70-[address] [facility] 6720 (BANNER) (test code = ADOLFO [place] 1538) [id number]
--- OUTSIDE RECORDS SUMMARY | 2020-02-07 06:26 | XMS REPORT ---
:1965 Author Organization [facility] Address [address] [facility], [address] [place] [address] Care Team Providers Name Role Phone Gibbs Jc Unavailable [phone] PROBLEMS Type Condition ICD9-CM [id number] Onset Condition SNOMED Code Notes Code Code Dates Status Problem Paraplegia G82.20 Active 19349060 Problem Bladder N21.0 Active 42267350 calculus ALLERGIES Allergen (clinical Drug/Non Drug Reaction Allergy Type Onset Date S tatus drug ingredient) Allergy documented on EMR METFORMIN anaphylaxis Non Drug Allergy Active IBUPROFEN- ADVERSE Unknown Non Drug Allergy Active REACTION NSAIDS-LOCAL Unknown Non Drug Allergy Active REACTION ENCOUNTERS from 1965 to 2020-01-16 Encounter Location Date Provider Diagnosis [place] [address] [facility] Jan, Jc Gibbs Complica chiara UTI Specialty/Urology [address] [place], [place] [address] infection) N39 .0 ; Urinary retenti on R33.9 and Bladd er calculus N21.0 IMMUNIZATIONS No Information SOCIAL HISTORY Tobacco Use: Social History Observation Description Date Details (start date - stop date) Never Smoker Sex Assigned At : Social History Observation Description Sex Assigned At Unknown Alcohol Screen Question Answer Notes Did you have a drink containing alcohol in the past year? No Points 0 Interpretation Negative Tobacco Use/Smoking Question Answer Notes Are you a never smoker REASON FOR REFERRAL No Information VITAL SIGNS Height 68 in Jan, Weight 235 lbs Jan, Temperature 98.2 degrees Fahrenheit Jan, BMI 35.73 kg/m2 Jan, Oximetry 94 % Jan, Blood pressure systolic 135 mm Hg Jan, Blood pressure diastolic 83 mm Hg Jan, MEDICATIONS Medication SIG (Take, Route, Start Date End Date Status Frequency, Duration) Cefpodoxime Proxetil 200 MG 1 tablet with food Orally Jan, Jan, Active Twice a day for 14 days Levothyroxine Sodium 75 MCG 1 tablet in the morning Active on an empty stomach Orally Once a day Fenofibrate 160 MG 1 tablet Orally Once a Active day Macrobid 100 MG 1 capsule Orally BID for Jan, Jan, Active 7 days Atenolol 50 MG 1 tablet Orally Once a Act oma day Levemir 100 UNIT/ML as directed Subcutaneous Active macrobid 100 mg one tablet daily PO daily Jan, Feb, Active for 30 days NovoLog 100 UNIT/ML as directed Subcutaneous Active PROCEDURES No Information RESULTS No Results REASON FOR VISIT cysto/cath change MEDICAL (GENERAL) HISTORY Type Description Date Medical History GERD Medical History GOUT Medical History DIABETES Medical History HYPERTENSION Medical History HIGH CHOLESTEROL Medical History HYPOTHYROIDISM Medical History PARAPLEGIC T10-T12- Medical History HX OF REC UTI'S Surgical History LEFT HYDROCELE 07/2016 Surgical History BACK SURGERY-SPINAL 2014 Surgical History RIGHT HYDROCELE Goals Section No Information Health Concerns No Information MEDICAL EQUIPMENT No Information MENTAL STATUS No Information FUNCTIONAL STATUS No Information ASSESSMENTS Encounter Date Diagnosis Notes Jan, Bladder calculus (ICD-10 - N21.0) Jan, Urinary retention (ICD-10 - R33.9) Jan, Complicated UTI (urinary tract infection ) (ICD-10 - N39.0) PLAN OF TREATMENT Medication Medication Name Sig Start Date Stop Date Macrobid 100 MG 1 capsule Orally BID for 7 days Jan, Jan, macrobid 100 mg one tablet daily PO daily for 30 days Jan,Feb, Next Appt Details Provider Name:Jc Gibbs 2020-01-31 07:30:00 AM, [address] [place] [address], [place] [address], [place], [address], Insurance Providers Payer Name Payer Payer Insured Name Patient Coverage Covera ge End Address Phone Relationship to Start Date Kel e Insured [employer] [phone] Ramirez Chaudhari self [id number] [address] [address]
--- OUTSIDE RECORDS SUMMARY | 2020-02-07 06:26 | XMS REPORT ---
:1965 Author Organization [facility] Address [address] [facility] [address] [place] [address] Care Team Providers Name Role Phone Sai Jc Unavailable [phone] PROBLEMS Type Condition ICD9-CM Code SAR49-CV Code Onset Condition SNOMED Co de Notes Dates Status Problem Paraplegia G82.20 Active 74330107 ALLERGIES Allergen (clinical Drug/Non Drug Reaction Allergy Type Onset Date S tatus drug ingredient) Allergy documented on EMR METFORMIN anaphylaxis Non Drug Allergy Active IBUPROFEN- ADVERSE Unknown Non Drug Allergy Active REACTION NSAIDS-LOCAL Unknown Non Drug Allergy Active REACTION ENCOUNTERS from 1965 to 2020-01-12 Encounter Location Date Provider Diagnosis [place] [address] [facility] Jan, Jc Gibbs Recurren t UTI N39.0 Specialty/Urology [address] [place] [address], and [facility] [address] G82.20 IMMUNIZATIONS No Information SOCIAL HISTORY Tobacco Use: [...] Fahrenheit Jan, BMI 35.73 kg/m2 Jan, Oximetry 93 % Jan, Blood pressure systolic 124 mm Hg Jan, Blood pressure diastolic 85 mm Hg Jan, MEDICATIONS Medication SIG (Take, Route, Start Date End Date Status Frequency, Duration) NovoLog 100 UNIT/ML as directed Subcutaneous Active Atenolol 50 MG 1 tablet Orally Once a Act oma day Cefpodoxime Proxetil 200 MG 1 tablet with food Orally Jan, Jan, Active Twice a day for 14 days Levothyroxine Sodium 75 MCG 1 tablet in the morning Active on an empty stomach Orally Once a day Fenofibrate 160 MG 1 tablet Orally Once a Active day Levemir 100 UNIT/ML as directed Subcutaneous Active PROCEDURES No Information RESULTS No Results REASON FOR VISIT urine cx, NEED A AORDER FOR A PICC LINE AND IV MEDICAL (GENERAL) HISTORY Type Description Date Medical [...] Information ASSESSMENTS Encounter Date Diagnosis Notes Jan, Paraplegia (ICD-10 - G82.20) Jan, Recurrent UTI (ICD-10 - N39.0) PLAN OF TREATMENT Medication Medication Name Sig Start Date Stop Date Cefpodoxime Proxetil 200 MG 1 tablet with food Orally Twice 2019Jan, a day for 14 days Treatment Notes Test Name Order Date Urine Culture (Hospital) 2020-01-12 Next Appt Details Provider Name:Jc Gibbs 2020-01-16 11:30:00 AM, [address] [place] [address], [place], [address], Insurance Providers Payer Name Payer Payer Insured Name Patient Coverage Covera End Address Phone Relationship to Start Date Kel e Insured [employer] [phone] Ramirez Chaudhari self [id number] [address]
--- OUTSIDE RECORDS SUMMARY | 2020-02-07 06:26 | XMS REPORT ---
:1965 Author Organization [facility] Address [address] [facility] [address] [place] [address] Care Team Providers Name Role Phone Gibbs Jc Unavailable [phone] PROBLEMS Type Condition ICD9-CM [id number] Onset Condition SNOMED Code Notes Code Code Dates Status Problem Paraplegia G82.20 Active 51091183 Problem Bladder N21.0 Active 45127513 calculus ALLERGIES Allergen (clinical Drug/Non Drug Reaction Allergy Type Onset Date S tatus drug ingredient) Allergy documented on EMR METFORMIN anaphylaxis Non Drug Allergy Active IBUPROFEN- ADVERSE Unknown Non Drug Allergy Active REACTION NSAIDS-LOCAL Unknown Non Drug Allergy Active REACTION ENCOUNTERS from 1965 to 2020-01-17 Encounter Location Date Provider Diagnosis [place] [facility] [address] Jan, Jc Gibbs Specialty/[place] [address] IMMUNIZATIONS No Information SOCIAL HISTORY Tobacco Use: [...] REASON FOR REFERRAL No Information VITAL SIGNS No information MEDICATIONS Medication SIG (Take, Route, Start Date [...] Information RESULTS No Results REASON FOR VISIT No Information MEDICAL (GENERAL) HISTORY Type Description Date Medical [...] No Information FUNCTIONAL STATUS No Information ASSESSMENTS No Information PLAN OF TREATMENT Medication Medication Name Sig Start Date Stop Date Macrobid 100 MG 1 capsule Orally BID for 7 days Jan, Jan, macrobid 100 mg one tablet daily PO daily for 30 days Jan,Feb, Next Appt Details Provider Name:Jc Gibbs 2020-01-31 07:30:00 AM, [address] [place] [address], [place], [address], Insurance Providers Payer Name Payer Payer Insured Name Patient Coverage Covera ge End Address Phone Relationship to Start Date Kel e Insured [employer] [phone] Ramirez Chaudhari self [id number] [address] [address]
[2020-02-07] MEDS ORDERED: NA CHLORIDE 0.9% 1,000 ML ONE (07:25)
[2020-02-07] MEDS ORDERED: propofoL 200 MG/20 ML VIAL IV ONE (07:38)
[2020-02-07] MEDS ORDERED: MIDAZOLAM HCL 2 MG/2 ML INJ ONE (07:38)
[2020-02-07] MEDS ORDERED: LIDOCAINE 1% MPF 5 ML VIAL ONE (07:38)
[2020-02-07] MEDS ORDERED: FENTANYL CITR 100 MCG/2 ML ONE (07:38)
[2020-02-07] MEDS ORDERED: INSULIN -REGULAR HUMAN 50 UNIT/0.5 ML ML ONE ×2 (07:56→08:59)
[2020-02-07] MEDS ORDERED: NS 0.9% VIAL 10 ML ONE (08:25)
[2020-02-07] MEDS ORDERED: Phenylephrine HCl 10 MG/ML 1 ML VIAL ONE (08:25)
[2020-02-07] MEDS ORDERED: ONDANSETRON 4 MG/2 ML VIAL ONE (08:35)
--- NOTE | 2020-02-07 09:26 | OP ---
Surgeon: CANDIS GAR Preoperative Diagnosis: Foreign body in bladder, suspect formed stone. Postoperative Diagnosis: Foreign body in bladder, plastic catheter fragment. Principle Procedure: Cystoscopy and extraction of foreign body. Indication For Procedure: Mr. Chaudhari presented to the Urology Clinic with recurrent issues of urinar y tract infections including Pseudomonas and Enterococcus. Because he had been managed with multiple different antimicrobials and yet the infection persisted with a degree of significant bother despite his partial paralysis, cystoscopic evaluation was undertaken and a foreign body was found in the julia dder, suspected to be a formed calculus. He thus presented today for definitive management of that. Procedure Note: The patient was consented in the preoperative holding area before being transferred to the operative suite where general anesthesia was induced. He was given ampicillin 2 g and gentami rina 240 mg IV antimicrobial prophylaxis. Pneumo boots were provided for DVT prophylaxis. He was trang mark in the lithotomy position, padded and secured to the table appropriately. His genitalia were pre pped using Hibiclens, and he was draped in standard fashion. The case was begun using a 22-Paraguayan ri gid cystoscope to traverse the urethra and into the bladder with ease. There was no significant pros tatic urethral obstruction, and the bladder was surveyed in its entirety. The ureteral orifices were orthotopic in location, and there was clear efflux of urine. There was minimal erythema of the blad chen associated with catheter trauma and some mild cystitis cystica posteriorly. Floating within the dome of the bladder was an approximately 1-1.5 cm semilunar yellowish appearing fragment. I then use d a stone grasper to grasp the fragment, which did bend indicating it was not stone material but was in fact rubber or plastic likely from a prior catheter. I then was able to deliver the foreign body via the cystoscope out of his bladder intact and the specimen was sent for pathologic identification. I then irrigated his bladder again and carefully surveyed it for any additional foreign bodies, and when none were noted, I replaced an 18-Paraguayan Valera catheter with ease with 10 cc of sterile water p laced into the balloon. The patient was then taken out of the lithotomy position, awakened from gene ral anesthesia, transferred to a stretcher, and then transferred to the recovery room in good conditi on. Complications: None. Disposition: He will be discharged on an additional 3 days of Augmentin to manage the Enterococcus s ivan the Pseudomonas was largely resistant and likely only related to the presence of the foreign bod y, now removed. Followup can be established in the Urology Clinic in approximately [address] exchange, and the patient's expresses his perhaps willingness to resume CIC. This can be di scussed as an outpatient and managed accordingly as he would be a reasonable candidate for intermitte nt catheterization. JACINTA/SNOW Voice ID: [id number] Report ID: [id number]
[2020-02-07 09:47] VITALS: BP 125/74; TEMP 96.8; O2SAT 99
== END 2020-02-07 10:03 | disposition home or self-care (01) ==
LOC: PRE 06:24
PROVIDERS: ATTEND Urology
PROC: 0TCB8ZZ Extirpation of Matter from Bladder, Via Natural or Artificial Opening Endoscopic (ICD-10-PCS; principal; 2020-02-07 07:30)
DX: T19.1XXA Foreign body in bladder, initial encounter (principal); Z20.828 Contact with and (suspected) exposure to other viral communicable diseases; I12.9 Hypertensive chronic kidney disease with stage 1 through stage 4 chronic kidney disease, or unspecified chronic kidney disease; N18.9 Chronic kidney disease, unspecified; E11.22 Type 2 diabetes mellitus with diabetic chronic kidney disease; G82.22 Paraplegia, incomplete; E03.9 Hypothyroidism, unspecified; M10.9 Gout, unspecified; H53.8 Other visual disturbances; Z79.4 Long term (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; Z87.440 Personal history of urinary (tract) infections
CPT/HCPCS: 93005; 87088; 85025; 87086; 80048; 36415; 85610; 82947 ×2; 88300; 85730; 87077 ×2; 87186 ×2; 71046; 52315; U0002; J2704; J2370; J1580; J2250; J3010; J7030; J2405; J0290; 81003; 81015

== ENCOUNTER 2020-03-10 23:59 | Inpatient (IN) | payer OTHER ==
--- OUTSIDE RECORDS SUMMARY | 2020-03-11 00:01 | XMS REPORT | Clinical Summary ---
:1965 Author Organization [facility] Address [address] [place] [address] Care Team Providers Name Role Phone Unavailable [...] Not on file Results Not on fileafter 03/11/2019 Insurance Payer Benefit Plan / Subscriber ID Effective Dates Phone Addre ss Type Group [employer] HMO [id number] 2015-Daisy Phipps Contracted ALL t Advance Directives For more information, please contact: [phone] Code Status Date Activated Date Inactivated Comments Full Code 06/30/2016 7:46 PM 07/04/2016 5:23 PM This code status was determined by: Patient
--- OUTSIDE RECORDS SUMMARY | 2020-03-11 00:03 | XMS REPORT ---
:1965 Author Organization [facility] Address [address] [facility], [address] [place] [address] Care Team Providers Name Role Phone Jc Gibbs Unavailable [phone] PROBLEMS Type Condition ICD9-CM IKY21-VY Onset Condition SNOMED Code Notes Code Code Dates Status Problem Paraplegia G82.20 Active 50752592 Problem Bladder N21.0 Active 64424521 calculus ALLERGIES Allergen (clinical Drug/Non Drug Reaction Allergy Type Onset Date S tatus drug ingredient) Allergy documented on EMR METFORMIN anaphylaxis Non Drug Allergy Active IBUPROFEN- ADVERSE Unknown Non Drug Allergy Active REACTION NSAIDS-LOCAL Unknown Non Drug Allergy Active REACTION ENCOUNTERS from 1965 to 2020-02-07 Encounter Location Date Provider Diagnosis [place] [address] [facility] Feb, Jc Gibbs Foreign body in Specialty/Urology [address] [facility], [place] [address] encounter T19. 1XXD IMMUNIZATIONS No Information SOCIAL HISTORY Tobacco Use: [...] No information MEDICATIONS Medication SIG (Take, Route, Notes Start Date End Date Status Frequency, Duration) Levemir 100 UNIT/ML as directed Acti ve Subcutaneous NovoLog 100 UNIT/ML as directed Acti ve Subcutaneous Fenofibrate 160 MG 1 tablet Orally Once a Active day Atenolol 50 MG 1 tablet Orally Once a Active day Levothyroxine Sodium 75 1 tablet in the morning Active MCG on an empty stomach Orally Once a day macrobid 100 mg one tablet daily PO Jan,Feb, 20 Active daily for 30 days PROCEDURES No Information RESULTS No Results REASON FOR VISIT CYSTOLITHOLA-PAXY-+/- LASER LITHO-HOLMIUM IF NO STONE [facility] MED[facility] (GENERAL) HISTORY Type Description Date Medical [...] STATUS No Information ASSESSMENTS Encounter Date Diagnosis Assessment Notes Treatment Notes Treatm ent Clinical Notes Feb, Foreign body in bladder, subsequent encounter (ICD-10 - T19.1XXD) PLAN OF TREATMENT No Information Insurance Providers Payer Name Payer Payer Insured Name Patient Coverage Covera End Address Phone Relationship to Start Date Kel e Insured [employer] [phone] Ramirez Chaudhari self [id number] [address] [address]
--- OUTSIDE RECORDS SUMMARY | 2020-03-11 00:03 | XMS REPORT | Continuity of Care Document ---
:[address] [facility] t Address [address] [place] [address] Care Team Providers Name Role Phone FAITH GOMEZ Attending Clinician Unavailable ILIANA GOMEZ Admitting Clinician Unavailable Problems Condition Condition Condition Status Onset Resolution Last Treating Co mments Source Name Details Category Date Date Treatment Clinician Date Epididymit Epididymit Disease Active [facility] is, left is, left [facility] - 00:00: Medical 00 [place] DM2 DM2 Disease Active [facility] (diabetes (diabetes [facility] - mellitus, mellitus, 00:00: Medi timothy type 2) type 2) 00 Center HTN HTN Disease Active [facility] (hypertens (hypertens -24 Cindy kes - ion) ion) 00:00: Medical 00 Center Hypothyroi Hypothyroi Disease Active [facility] [...] [facility] - adverse 00:00: Medical reaction 00 Elkin s Family History Family Member Diagnosis Comments Start Date Stop Date Source Natural brother Kidney disease [facility] S t [facility] Natural mother [facility] Natural sister [facility] Social History Social Habit Start Date Stop Date Quantity Comments Source Sex Assigned At [facility] Tobacco use and 2016-07-01 2016-07-01 Former user [facility] St L ukyonathan - exposure 00:00:00 00:00:00 [facility] Alcohol intake 2016-07-01 2016-07-01 Current [facility] - 00:00:00 00:00:00 non-drinker of Medical nter alcohol (finding) History of 1986-06-30 User of smokeless [facility] - tobacco use 00:00:00 tobacco [facility] [place] [facility] Smoking Status Start Date Stop Date Source Former smoker 2016-07-01 00:00:00 2016-07-01 00:00:00 [facility] Medications Ordered Filled Start Stop Current Ordering Indication Dosage Frequency Signature Comments Components Source Medication Medication Date Date Medication? Clinician (SIG) Name Name atenolol Yes 50mg QD Take [address] [facility] (TENORMIN) 4-28 by mouth [facility] - 50 MG 15:23: daily. Medical tablet 08 Center oxybutynin Yes 5mg [id number] Take [address] [facility] (DITROPAN) 4-28 [id number] by mouth 3 [facility] - 5 MG [...] Date/Time Type Type Clinicians Facility Department ID 2020-02-14 2020-02-14 Outpatient [facility] [id number] [facility] 2020-02-07 2020-02-07 Outpatient [facility] [id number] [facility] 2020-01-17 2020-01-17 Outpatient [facility] [id number] [facility] 2020-01-16 2020-01-16 Outpatient [facility] [id number] [facility] 2020-01-09 2020-01-09 Outpatient [facility] [id number] [facility]00 [facility] Results Test Description Test Time Test Comments Results Result Comments Source BLOOD CULTURE 2016-07-07 14:28:00 Test Item Value Reference Range Interpretation Comme nts CULTURE ([facility]) (test code = 1095) No growth in 5 days POCT-GLUCOSE [id number] 12:04:00 Test Item Value Reference Range Interpretation Comments POC-GLUCOSE METER 179 mg/dL 70-110 H TESTED AT [facility] 67[address] ([facility]) (test code = [place] 1538) [address] BASIC METABOLIC [id number] 09:51:00 Test Item Value Reference Range Interpretation Comments SODIUM ([facility]) 137 meq/L 136-145 (test code = 381) POTASSIUM ([facility]) 3.7 meq/L 3.5-5.1 (test code = 379) [...] PATIEN TS. CBC W/PLT COUNT & AUTO [id number] 09:20:00 Test Item Value Reference Range Interpretation [...] L 0.00-0.20 (test code = 417) 0.00POCT-GLUCOSE [id number] 07:15:00 Test Item Value Reference Range Interpretation Comments POC-GLUCOSE METER 246 mg/dL 70-110 H TESTED AT [place] [address] ([facility]) (test code = [facility] 1538) [address] POCT-GLUCOSE [id number] 21:12:00 Test Item Value Reference Range Interpretation Comments POC-GLUCOSE METER 89 mg/dL 70-110 TESTED AT [place] [address] ([facility]) (test code = [facility] [address] 1538) POCT-GLUCOSE [id number] 17:12:00 Test Item Value Reference Range Interpretation Comments POC-GLUCOSE METER 217 mg/dL 70-110 H TESTED AT [place] [address] ([facility]) (test code = [facility] 1538) [address]2010 URINE [id number] 12:07:00 Test Item Value Reference Range Interpretation Comments CULTURE ([facility]) (test <10,000 col/mL skin code = 1095) candi POCT-GLUCOSE [id number] 11:30:00 Test Item Value Reference Range Interpretation Comments POC-GLUCOSE METER 205 mg/dL 70-110 H TESTED AT [place] [address] ([facility]) (test code = [facility] 1538) [id number] POCT-GLUCOSE [id number] 07:36:00 Test Item Value Reference Range Interpretation Comments POC-GLUCOSE METER 195 mg/dL 70-110 H TESTED AT [facility] 67[address] (BEAKER) (test code = AD[place]FO [place] 1538) [address] CBC W/PLT COUNT & AUTO [id number] 05:14:00 Test Item Value Reference Range Interpretation [...] 0.00-0.20 (test code = 417) 0.00BASIC METABOLIC [id number] 05:14:00 Test Item Value Reference Range Interpretation [...] NOT APPLICABLE FOR DIALYSIS PATIEN TS. POCT-GLUCOSE [id number] 21:04:00 Test Item Value Reference Range Interpretation Comments POC-GLUCOSE METER 178 mg/dL 70-110 H TESTED AT [place] [address] ([facility]) (test code = [facility] Tamie [facility] 1538) [address] POCT-GLUCOSE [id number] 17:07:00 Test Item Value Reference Range Interpretation Comments POC-GLUCOSE METER 88 mg/dL 70-110 TESTED AT [place] [address] ([facility]) (test code = [facility] [address] 1538) POCT-GLUCOSE [id number] 12:30:00 Test Item Value Reference Range Interpretation Comments POC-GLUCOSE METER 107 mg/dL 70-110 TESTED AT [place] [address] ([facility]) (test code = [facility] 1538) [id number] POCT-GLUCOSE [id number] 07:46:00 Test Item Value Reference Range Interpretation Comments POC-GLUCOSE METER 169 mg/dL 70-110 H TESTED AT [facility] 67[address] (BEAKER) (test code = ADOLFO E[place]AR[place] 1538) [address]2392 CBC W/PLT COUNT & AUTO [id number] 07:42:00 Test Item Value Reference Range Interpretation [...] 0.00-0.20 (test code = 417) 0.00BASIC METABOLIC [id number] 06:13:00 Test Item Value Reference Range Interpretation [...] NOT APPLICABLE FOR DIALYSIS PATIEN TS. POCT-GLUCOSE [id number] 22:12:00 Test Item Value Reference Range Interpretation Comments POC-GLUCOSE METER 238 mg/dL 70-110 H TESTED AT [facility] 67[address] (BEAKER) (test code = ADOLFO Willett [facility] 1538) [address]596 POCT-GLUCOSE [id number] 17:25:00 Test Item Value Reference Range Interpretation Comments POC-GLUCOSE METER 102 mg/dL 70-110 TESTED AT [facility] 67[address] (BEAKER) (test code = ADOLFO Willett [facility] 1538) [address]78 URINALYSIS W/ [id number] 12:50:00 Test Item Value Reference Range Interpretation [...] /HPF SOURCE(BEAKER) (test code = 2795) POCT-GLUCOSE [id number] 12:04:00 Test Item Value Reference Range Interpretation Comments POC-GLUCOSE METER 226 mg/dL 70-110 H [facility] AT [place] [address] [facility] (test code = [facility] 1538) [address]28 POCT-GLUCOSE [id number] 08:00:00 Test Item Value Reference Range Interpretation Comments POC-GLUCOSE METER 300 mg/dL 70-110 H TESTED AT [place] [address] ([facility]) (test code = [facility] 1538) 46800 BASIC METABOLIC [id number] 06:50:00 Test Item Value Reference Range Interpretation [...] PATIEN TS. CBC W/PLT COUNT & AUTO [id number] 06:01:00 Test Item Value Reference Range Interpretation [...] L 0.00-0.20 (test code = 417) 0.00POCT-GLUCOSE [id number] 21:25:00 Test Item Value Reference Range Interpretation Comments POC-GLUCOSE METER 279 mg/dL 70-110 H TESTED AT [facility] 67[address] (BEAKER) (test code = [place] 1538) [address]163 HEMOGLOBIN [id number] 21:13:00 Test Item Value Reference Range Interpretation Comments HEMOGLOBIN A1C (BEAKER) (test code = 10.7 % 4.3-6.1 H 368) CBC W/PLT COUNT & AUTO [id number] 20:47:00 Test Item Value Reference Range Interpretation [...] L 0.00-0.20 (test code = 417) 0.00POCT-GLUCOSE [id number] 18:31:00 Test Item Value Reference Range Interpretation Comments POC-GLUCOSE METER 205 mg/dL 70-110 H TESTED AT [facility] 2558 (BEAKER) (test code = [place] 1538) [address]
--- OUTSIDE RECORDS SUMMARY | 2020-03-11 00:03 | XMS REPORT ---
:1965 Author Organization [facility] Address [address] [facility], [address] [place] [address] Care Team Providers Name Role Phone Sai Jc Unavailable [phone] PROBLEMS Type Condition ICD9-CM BCF11-NI Onset Condition SNOMED Code Notes Code Code Dates Status Problem Paraplegia G82.20 Active 49148351 Problem Bladder N21.0 Active 35311282 calculus ALLERGIES Allergen (clinical Drug/Non Drug Reaction Allergy Type Onset Date S tatus drug ingredient) Allergy documented on EMR METFORMIN anaphylaxis Non Drug Allergy Active IBUPROFEN- ADVERSE Unknown Non Drug Allergy Active REACTION NSAIDS-LOCAL Unknown Non Drug Allergy Active REACTION ENCOUNTERS from 1965 to 2020-02-14 Encounter Location Date Provider Diagnosis [place] [address] [facility] [address] Feb, Jc Gibbs Special[facility] [address] IMMUNIZATIONS No Information SOCIAL HISTORY Tobacco Use: [...] macrobid 100 mg one tablet daily PO Jan, 9 Feb, 20 20 Active daily for 30 days PROCEDURES [...] Information ASSESSMENTS No Information PLAN OF TREATMENT No Information Insurance Providers Payer Name Payer Payer Insured Name Patient Coverage Covera End Address Phone Relationship to Start Date Kel e Insured [employer] [phone] Ramirez Chaudhari self [id number] [address] [address]
[2020-03-11 00:51] LABS: Absolute Lymphocytes (CBC) 1.7 K/uL (0.7-4.9); Basophils % 0.8 % (0-1.3); Hematocrit 46.9 % (39.6-49.0); Lymphocytes % 24.6 % (15.3-44.8); MPV 11.3 fL (7.6-11.3); RBC Red Blood Cell Count 5.23 M/uL (4.33-5.43)
[2020-03-11] MEDS ORDERED: NA CHLORIDE 0.9% 0 ML ONE (01:02)
[2020-03-11] MEDS ORDERED: VANCOMYCIN 1 GM/VIAL ONE ×2 (01:02→22:13)
[2020-03-11] MEDS ORDERED: PIPER/TAZO/NS 3.375gm 3.375 GM/100 ML BAG ONE (01:02)
[2020-03-11 01:26] LABS: Albumin 3.5 g/dL (3.4-5.0); Bilirubin Direct 0.1 mg/dL (0-0.2); Bilirubin Total 0.4 mg/dL (0.2-1.0); Protein, Total 7.8 g/dL (6.4-8.2)
--- NOTE | 2020-03-11 02:16 | EDPHYS ---
Physician Documentation [facility] Name: Ramirez Chaudhari Age: 54 yrs Sex: Male : 1965 Arrival Date: 03/11/2020 Time: 00:03 Bed 5 Private MD: ED Physician Dev Oconnell HPI: 03/11 04:12 This 54 yrs old Male presents to ER via Wheelchair with complaints of Foot tw4 Injury. 04:12 The patient presents with ulcer redness. The complaints affect the right foot. Onset: tw4 The symptoms/episode began/occurred 1 week(s) ago. Modifying factors: The symptoms are alleviated by nothing, the symptoms are aggravated by nothing. The patient has not experienced similar symptoms in the past. Historical: - Allergies: 00:25 Ibuprofen; rr5 00:25 metformin; rr5 - Home Meds: 00:25 Colcrys 0.6 mg Oral tab 1 tab bid prn gout [Active]; furosemide 40 mg Oral tab 1 tab rr5 once daily [Active]; Levemir 46 units subcutaneous twice a day [Active]; levothyroxine 75 mcg tab 1 tab once daily [Active]; lisinopril 40 mg Oral tab once daily [Active]; Novolog 30 units Sub-Q three times a day [Active]; - PMHx: 00:25 ADD/ADHD; Diabetes - IDDM; GERD; Gout; High Cholesterol; Hydrocele Left Testicle; rr5 Hypertension; Hypothyroidism; Migraines; Paraplegia; Renal Disease; Spinal Stroke; - PSHx: 00:25 spinal surgery; fistula; rr5 - Immunization history:: Adult Immunizations up to date, Pneumococcal vaccine is up to date, Flu vaccine is up to date. - Social history:: Smoking status: unknown. ROS: 04:12 Constitutional: Negative for fever, chills, and weight loss, Eyes: Negative for injury, tw4 pain, redness, and discharge, Cardiovascular: Negative for chest pain, palpitations, and edema, Respiratory: Negative for shortness of breath, cough, wheezing, and pleuritic chest pain, Abdomen/GI: Negative for abdominal pain, nausea, vomiting, diarrhea, and constipation. 04:12 MS/extremity: Positive for erythema, swelling, warmth. 04:12 Neuro: Negative for headache, weakness, numbness, tingling, and seizure, Psych: tw4 Negative for depression, anxiety, suicide ideation, homicidal ideation, and hallucinations. Exam: 04:14 Constitutional: This is a well developed, well nourished patient who is awake, alert, tw4 and in no acute distress. Eyes: Pupils equal round and reactive to light, extra-ocular motions intact. Lids and lashes normal. Conjunctiva and sclera are non-icteric and not injected. Cornea within normal limits. Periorbital areas with no swelling, redness, or edema. Chest/axilla: Normal chest wall appearance and motion. Nontender with no deformity. No lesions are appreciated. Cardiovascular: Regular rate and rhythm with a normal S1 and S2. No gallops, murmurs, or rubs. Normal PMI, no JVD. No pulse deficits. Respiratory: Lungs have equal breath sounds bilaterally, clear to auscultation and percussion. No rales, rhonchi or wheezes noted. No increased work of breathing, no retractions or nasal flaring. Abdomen/GI: Soft, non-tender, with normal bowel sounds. No distension or tympany. No guarding or rebound. No evidence of tenderness throughout. 04:14 Musculoskeletal/extremity: Extremities: noted in the heel of right foot: erythema, swelling, large area on heel that appears gangrenous. Vital Signs: 00:21 BP 131 / 102; Pulse 92; Resp 19; Temp 97.9; Pulse Ox 99% ; Weight 106.59 kg; Height 5 rr5 ft. 8 in. (172.72 cm); Pain 0/10; 03:05 BP 101 / 73; Pulse 100; Resp 19; Temp 97.9; Pulse Ox 93% ; rr5 04:00 BP 105 / 62; Pulse 90; Resp 17; Pulse Ox 99% ; rr5 00:21 Body Mass Index 35.73 (106.59 kg, 172.72 cm) rr5 MDM: 00:16 Patient medically screened. tw4 04:16 Differential diagnosis: fracture, foreign body, cellulitis. Data reviewed: vital signs, tw4 nurses notes. Data interpreted: Pulse oximetry: Interpretation: normal. Counseling: I had a detailed discussion with the patient and/or guardian regarding: the historical points, exam findings, and any diagnostic results supporting the discharge/admit diagnosis. Special discussion: I discussed with the patient/guardian in detail that at this point there is no indication for admission to the hospital. It is understood, however, that if the symptoms persist or worsen the patient needs to return immediately for re-evaluation. 03/11 00:23 Order name: Basic Metabolic Panel tw 03/11 00:23 Order name: CBC with Diff; Complete Time: 01:18 tw4 03/11 01:18 Interpretation: Within normal limits. tw4 03/11 00:23 Order name: Hepatic Function tw 03/11 00:23 Order name: Blood Culture Adult (2) tw 03/11 00:23 Order name: Lactate; Complete Time: 01:18 4 03/11 01:18 Interpretation: Normal except: LAC 2.1. tw 03/11 03:14 Order name: Basic Metabolic Panel [facility] 03/11 03:14 Order name: Basic Metabolic Panel [facility] 03/11 03:33 Order name: Glucose, Ancillary Testing [facility] 03/11 04:27 Order name: SARS-COV-2 RT PCR [facility] 03/11 04:37 Order name: Lactate Sepsis 2 HR Follow-up [facility] 03/11 09:40 Order name: Glucose, Ancillary Testing [facility] 03/11 12:18 Order name: Glucose, Ancillary Testing [facility] 03/11 00:23 Order name: IV Saline Lock; Complete Time: 00:37 tw 03/11 00:23 Order name: Labs collected and sent; Complete Time: 00:37 4 03/11 00:23 Order name: Foot Right 3 View XRAY tw4 03/11 03:14 Order name: Patient Safety Orders [facility] 03/11 03:14 Order name: [facility] Cons [facility] 03/11 03:14 Order name: Consistent Carb (ADA) [address] [facility] Administered Medications: 01:30 Dru.375 grams of (Zosyn 3.375 grams, NS 0.9% 100 ml) Route: IVPB; Infused Over: 60 rr5 mins; Site: left forearm; 02:30 Follow up: Response: No adverse reaction; IV Status: Completed infusion; IV Intake: rr5 100ml 02:20 Drug: Insulin Regular Human 10 units {Co-Signature: lp1 (Neris Hernandez RN).} Route: IVP; rr5 Site: left forearm; 03:23 Follow up: Response: No adverse reaction; Blood sugar is lowered rr5 02:21 Drug: NS 0.9% 1000 ml Route: IV; Rate: 1 bolus; Site: left forearm; rr5 03:22 Follow up: Response: No adverse reaction; IV Status: Completed infusion; IV Intake: rr5 1000ml 02:44 Dru grams of (vancoMYCIN 1 grams, NS 0.9% 250 ml) Route: IVPB; Infused Over: 2 hrs; rr5 Site: left forearm; 04:24 Follow up: Response: No adverse reaction; IV Status: Completed infusion; IV Intake: rr5 250ml Disposition: 03/11/20 02:15 Hospitalization ordered by Mike Orellana for Inpatient Admission. Preliminary diagnosis are Cellulitis of right lower limb, Hyperglycemia, unspecified. - Bed requested for Telemetry/MedSurg (Inpatient). - Status is Inpatient Admission. eb - Condition is Stable. - Problem is new. - Symptoms have improved. Signatures: [facility] Sil[facility] Moreno RN RN Dev Oconnell MD MD tw4 Sofia Keenan Raymond, RN RN rr5 Neris Hernandez RN lp1 Corrections: (The following items were deleted from the chart) 02:17 02:15 Hospitalization Ordered by Mike Orellana DO for Inpatient Admission. Preliminary dw diagnosis is Cellulitis of right lower limb; Hyperglycemia, unspecified. Bed requested for Telemetry/MedSurg (Inpatient). Status is Inpatient Admission. Condition is Stable. Problem is new. Symptoms have improved. tw4 02:56 00:59 GLUCOSE+C.LAB.BRZ ordered. [facility] 03:20 02:35 CORONAVIRUS+MR.LAB.BRZ ordered. [facility] EDVT 12:31 02:17 03/11/2020 02:15 Hospitalization Ordered by Mike Orellana DO for Inpatient dw Admission. Preliminary diagnosis is Cellulitis of right lower limb; Hyperglycemia, unspecified. Bed requested for [facility] ER HOLD. Status is Inpatient Admission. Condition is Stable. Problem is new. Symptoms have improved. 15:38 12:31 03/11/2020 02:15 Hospitalization Ordered by Mike Orellana DO for Inpatient eb Admission. Preliminary diagnosis is Cellulitis of right lower limb; Hyperglycemia, unspecified. Bed requested for Telemetry/MedSurg (Inpatient). Status is Inpatient Admission. Condition is Stable. Problem is new. Symptoms have improved. dw
--- NOTE | 2020-03-11 02:16 | ER ---
Nurse's Notes [facility] Name: Ramirez Chaudhari Age: 54 yrs Sex: Male : 1965 Arrival Date: 03/11/2020 Time: 00:03 Bed 5 Private MD: Diagnosis: Cellulitis of right lower limb;Hyperglycemia, unspecified Presentation: 03/11 00:21 Chief complaint: Spouse and/or significant other states: we just want his wound to be rr5 check. denies fever. the wound from his right heel turns black at the center today. Coronavirus screen: Client denies travel out of the [place] in the last 14 days. At this time, the client does not indicate any symptoms associated with coronavirus-19. Ebola Screen: Patient negative for fever greater than or equal to 101.5 degrees Fahrenheit, and additional compatible Ebola Virus Disease symptoms Patient denies exposure to infectious person. Patient denies travel to an Ebola-affected area in the 21 days before illness onset. Initial Sepsis Screen: Does the patient meet any 2 criteria? No. Patient's initial sepsis screen is negative. Does the patient have a suspected source of infection? Yes: Skin breakdown/wound. Risk Assessment: Do you want to hurt yourself or someone else? Patient reports no desire to harm self or others. Onset of symptoms was March 11, 2020. 00:21 Method Of Arrival: Wheelchair rr5 00:21 Acuity: NOHEMI 3 rr5 Triage Assessment: 00:50 Injury Description: pressure ulcer right heel. rr5 Historical: - Allergies: 00:25 Ibuprofen; rr5 00:25 metformin; rr5 - Home Meds: 00:25 Colcrys 0.6 mg Oral tab 1 tab bid prn gout [Active]; furosemide 40 mg Oral tab 1 tab rr5 once daily [Active]; Levemir 46 units subcutaneous twice a day [Active]; levothyroxine 75 mcg tab 1 tab once daily [Active]; lisinopril 40 mg Oral tab once daily [Active]; Novolog 30 units Sub-Q three times a day [Active]; - PMHx: 00:25 ADD/ADHD; Diabetes - IDDM; GERD; Gout; High Cholesterol; Hydrocele Left Testicle; rr5 Hypertension; Hypothyroidism; Migraines; Paraplegia; Renal Disease; Spinal Stroke; - PSHx: 00:25 spinal surgery; fistula; rr5 - Immunization history:: Adult Immunizations up to date, Pneumococcal vaccine is up to date, Flu vaccine is up to date. - Social history:: Smoking status: unknown. Screenin:27 Abuse screen: Denies threats or abuse. Denies injuries from another. Nutritional rr5 screening: No deficits noted. Tuberculosis screening: No symptoms or risk factors identified. Fall Risk Secondary diagnosis (15 points) impaired mobility, IV access (20 points). Total Valera Fall Scale indicates Low Risk Score (25-44 pts). Fall prevention measures have been instituted. Side Rails Up X 2 Placed close to Nursing Station Frequent Obs/Assesments occuring Family Present and informed to notify staff if they need to leave bedside As available Patient and Family Educated on Fall Prevention Program and strategies. Assessment: 00:20 General: Appears in no apparent distress. comfortable, Behavior is calm, cooperative, rr5 appropriate for age. Pain: Denies pain. Neuro: Level of Consciousness is awake, alert, obeys commands, Oriented to person, place, time. Cardiovascular: Capillary refill < 3 seconds Patient's skin is warm and dry. Respiratory: Airway is patent Respiratory effort is even, unlabored, Respiratory pattern is regular, symmetrical. GI: No signs and/or symptoms were reported involving the gastrointestinal system. : Valera in place Reports incontinence. EENT: No signs and/or symptoms were reported regarding the EENT system. Derm: Skin is intact, is healthy with good turgor, Skin temperature is warm Decubitus located on right heel(s) approximately 2.6 cm to 7.5 cm is stage II is draining none noted. Musculoskeletal: Circulation, motion, and sensation intact. Capillary refill < 3 seconds. 02:25 Reassessment: glucose test per protocol informed laboratory rené. she said it is rr5 included in the BMP. order for glucose will cancel. 02:37 Reassessment: Patient appears in no apparent distress at this time. Patient is alert, rr5 oriented x 3, equal unlabored respirations, skin warm/dry/pink. ED provider spoke to patient and advised for admission. patient agreed for the plan of care. 02:50 Reassessment: Patient appears in no apparent distress at this time. hospitalist at rr5 bedside. 03:20 Reassessment: Patient appears in no apparent distress at this time. Patient and/or rr5 family updated on plan of care and expected duration. Pain level reassessed. Patient is alert, oriented x 3, equal unlabored respirations, skin warm/dry/pink. 04:08 Reassessment: Patient appears in no apparent distress at this time. Patient is alert, rr5 oriented x 3, equal unlabored respirations, skin warm/dry/pink. repeat lactate extracted and sent. 05:30 Reassessment: repeat lactate result 2.9, hospitalist omitogun aware with telephone rr5 order made of NS 1000ml /IV bolus stat with read back. Vital Signs: 00:21 BP 131 / 102; Pulse 92; Resp 19; Temp 97.9; Pulse Ox 99% ; Weight 106.59 kg; Height 5 rr5 ft. 8 in. (172.72 cm); Pain 0/10; 03:05 BP 101 / 73; Pulse 100; Resp 19; Temp 97.9; Pulse Ox 93% ; rr5 04:00 BP 105 / 62; Pulse 90; Resp 17; Pulse Ox 99% ; rr5 00:21 Body Mass Index 35.73 (106.59 kg, 172.72 cm) rr5 ED Course: 00:03 Patient arrived in ED. bp1 00:10 Tunde Fernandez, NORBERTO is Primary Nurse. rr5 00:16 Dev Oconnell MD is Attending Physician. tw4 00:23 Triage completed. rr5 00:27 Arm band placed on right wrist. rr5 00:27 Patient has correct armband on for positive identification. Placed in gown. Bed in low rr5 position. Call light in reach. Side rails up X2. Pulse ox on. NIBP on. 00:45 Inserted saline lock: 18 gauge in left forearm, using aseptic technique. Blood ds4 collected. 00:56 Foot Right 3 View XRAY In Process Unspecified. EDMS 01:27 Notified ED physician of a critical lab result(s). Glucose 496. lp1 02:06 Mike Orellana DO is Hospitalizing Provider. tw4 02:54 No provider procedures requiring assistance completed. Patient admitted, IV remains in rr5 place. intact, No redness/swelling at site. 03:01 COVID swab sent to lab. rr5 Administered Medications: 01:30 Dru.375 grams of (Zosyn 3.375 grams, NS 0.9% 100 ml) Route: IVPB; Infused Over: 60 rr5 mins; Site: left forearm; 02:30 Follow up: Response: No adverse reaction; IV Status: Completed infusion; IV Intake: rr5 100ml 02:20 Drug: Insulin Regular Human 10 units {Co-Signature: [email or web address] (Neris Hernandez RN).} Route: IVP; rr5 Site: left forearm; 03:23 Follow up: Response: No adverse reaction; Blood sugar is lowered rr5 02:21 Drug: NS 0.9% 1000 ml Route: IV; Rate: 1 bolus; Site: left forearm; rr5 03:22 Follow up: Response: No adverse reaction; IV Status: Completed infusion; IV Intake: rr5 1000ml 02:44 Dru grams of (vancoMYCIN 1 grams, NS 0.9% 250 ml) Route: IVPB; Infused Over: 2 hrs; rr5 Site: left forearm; 04:24 Follow up: Response: No adverse reaction; IV Status: Completed infusion; IV Intake: rr5 250ml Intake: 02:30 IV: 100ml; Total: 100ml. rr5 03:22 IV: 1000ml; Total: 1100ml. rr5 04:24 IV: 250ml; Total: 1350ml. rr5 Outcome: 02:15 Decision to Hospitalize by Provider. tw4 02:41 Admitted to ER Hold. Please see [facility] for further documentation. mg2 02:54 Condition: stable rr5 02:54 Instructed on the need for admit. 15:38 Patient left the ED. eb Signatures: Dispatcher [employer] Neris Doty RN RN lp1 Dane Barreto 4 Dev Oconnell MD MD tw4 Sofia Keenan Michele, RN RN mg2 Tunde Fernandez RN RN rr5 Duyen Barriga RN lp1 Corrections: (The following items were deleted from the chart) 00:37 00:21 Acuity: NOHEMI 4 rr5 rr5 03:05 00:21 Chief complaint: Spouse and/or significant other states: we just want his wound rr5 to be check. denies fever rr5
[2020-03-11] MEDS ORDERED: NA CHLORIDE 0.9% 1,000 ML ONE (02:27)
[2020-03-11] MEDS ORDERED: INSULIN -REGULAR HUMAN 50 UNIT/0.5 ML ML ONE ×3 (02:27→12:51)
[2020-03-11] MEDS ORDERED: ONDANSETRON 4 MG/2 ML VIAL IV PRN (03:08)
[2020-03-11] MEDS ORDERED: ACETAMINOPHEN 500 MG TAB PO PRN (03:08)
--- NOTE | 2020-03-11 03:20 | P.HP ---
Patient History Date of Service: 03/11/20 Reason for admission: Diabetic heel ulcer History of Present Illness: 54 y o male pt with hx of Diabetes type 2, Hypertension, Hyperlipidemia, Hypothyroidism and CKD stage 3 who came to the ER for evaluation of diabetic foot ulcer on the right heel. has has had issues with a blister o the right heel that ruptured and stated getting worse over the course of the last week. he denied any issues with fever, chills, rigor, generalized body ache. he also d enied any headache or cough. he was brought to the Ed for review after his noted that the base of the ulcer started turning black and the edges were hyperemic. There was concern for infected diabetic foot ulcer so he was started on broad spectrum antibiotics and admitted for inpt care. Allergies metformin Adverse Reaction (Severe, Verified 02/06/20 12:27) kidney damage ibuprofen Adverse Reaction (Verified 02/06/20 12:27) seecom stitches Adverse Reaction (Mild, Uncoded 02/06/20 12:27) Rash Home medications list reviewed: Yes Home Medications: Colchicine 0.6 mg PO DAILY 11/21/18 Furosemide [Lasix] 20 mg PO DAILY 11/21/18 Insulin Aspart [Novolog Flexpen] 30 units SQ TID 11/21/18 Insulin Detemir [Levemir Flextouch] 40 units SQ BID 11/21/18 Levothyroxine [Synthroid*] 75 mcg PO DAILY 11/21/18 lisinopriL [Lisinopril] 40 mg PO DAILY 11/21/18 Aspirin [Aspirin EC 81 MG] 81 mg PO DAILY 02/06/20 Fenofibrate 160 mg PO DAILY 02/06/20 Naproxen Sodium [Aleve] 2 tab PO PRN PRN 02/06/20 Simethicone [Janice-[place]] 125 mg PO PRN PRN 02/06/20 Amoxicillin/Potassium Clav [Augmentin 875-125 Tablet] 1 each PO Q12H 3 Days #5 tablet 02/07/20 - Past Medical/Surgical History Diabetic: Yes -: HTN -: gout -: gerd -: hypercholesterol -: spinal cord injury -: self cath -: hypothyroidism -: paraplegic -: GERD -: Memory Loss (non active) -: Crohn's Disease (non active) -: spinal surgery -: 2 hydroceles -: I&D sacrum - Family History Mother -: Hypertension, Diabetes, Stroke Notes: with gangrene leg - Social History Alcohol use: No CD- Drugs: No Caffeine use: Yes Review of Systems General: Unremarkable Eyes: Unremarkable ENT: Unremarkable Respiratory: Unremarkable Cardiovascular: Unremarkable Gastrointestinal: Nausea Musculoskeletal: Other (heel stage 2 ulcer with necrotic base.) Integumentary: Other (heel ulcer) Neurological: Unremarkable Lymphatics: Unremarkable Physical Examination - Physical Exam General: Alert, Oriented x3 HEENT: Atraumatic, Normocephalic Neck: Supple Respiratory: Clear to auscultation bilaterally Cardiovascular: Regular rate/rhythm, Normal S1 S2 Gastrointestinal: Soft and benign Musculoskeletal: Other (necrotic ulcer on the right heel base. mild erythema around ulcer edge.) Neurological: Normal speech, Cranial nerves 3-12 intact - Studies Laboratory Data (last 24 hrs) 03/11/20 00:58: Glucose Cancelled 03/11/20 00:45: WBC 6.9, Hgb 15.2, Hct 46.9, Plt Count 155 03/11/20 00:45: Sodium 130 L, Potassium 4.0, BUN 36 H, Creatinine 1.81 H, Glucose 496 H*, Total Bilirubin 0.4, AST 37, ALT 76, Alkaline Phosphatase 136 H Assessment and Plan - Plan 1.Diabetic foot ulcer-Developed worsening heel ulcer on the right foot. concerns about possible bone affectation. empiric antibiotics of Vancomycin and cefepime started. we will have wound care/ID and podiatry evaluate. 2.Hypertension-We will monitor blood pressure per unit protocol and continue antihypertensive meds. 3.Diabetes type 2-Poorly controlled with blood glucose of 490 on initial labs. we will have him on SSI for glucose control and add lantus insulin. we will continue carb restricted diet. 4.Hypothyroidism-We will continue levothyroxine. 5.CKD stage 3- Creatinine is elevated at 1.8 and BUN is 36. eGFR makes him at CKD stage 3b. we will dose meds for eGFR and avoid nephrotoxins. - Advance Directives Does patient have a Living Will: No Does patient have a Durable POA for Healthcare: No
[2020-03-11] MEDS ORDERED: VANCOMYCIN 1.25 GM in NA CHLORIDE 0.9% 250 ML IVPB SCH (04:00)
[2020-03-11 04:18] VITALS: BMI 35.5
[2020-03-11] MEDS ORDERED: NA CHLORIDE 0.9% 1,000 ML IV ONE (05:31)
[2020-03-11] MEDS: INSULIN -REGULAR HUMAN 50 UNIT/0.5 ML ML SQ SCH ×4 (07:30→21:21)
[2020-03-11] MEDS: ASPIRIN EC 81 MG TAB PO SCH (09:00)
[2020-03-11] MEDS ORDERED: HOME MED 1 EA UNK (Insulin Detemir [Levemir Flextouch] 100 UNIT/ML Insuln.Pen) SQ SCH (09:00)
[2020-03-11] MEDS: ENOXAPARIN 40 MG/0.4 ML SQ SCH (09:00)
[2020-03-11] MEDS ORDERED: CEFEPIME 1 GM/VIAL IV SCH (09:00)
[2020-03-11] MEDS: FENOFIBRATE 160 MG TAB PO SCH (09:00)
[2020-03-11] MEDS ORDERED: HOME MED 1 EA UNK (Lisinopril [Lisinopril] 40 MG Tablet) PO SCH (09:00)
[2020-03-11] MEDS: INSULIN GLARGINE 100 UNITS/ML SQ SCH ×2 (09:00→21:21)
[2020-03-11] MEDS: lisinopriL 20 MG TAB PO SCH (09:00)
[2020-03-11] MEDS: CEFEPIME/SWI 1gm 10 ML IV SCH ×2 (09:00→22:03)
[2020-03-11] MEDS ORDERED: ASPIRIN EC 81 MG TAB PO ONE (09:46)
[2020-03-11] MEDS ORDERED: ENOXAPARIN 40 MG/0.4 ML SQ ONE (09:47)
[2020-03-11] MEDS ORDERED: lisinopriL 20 MG TAB ONE (09:47)
[2020-03-11] MEDS ORDERED: CEFEPIME/SWI 1gm 10 ML ONE (09:47)
[2020-03-11] MEDS ORDERED: INSULIN GLARGINE 100 UNITS/ML SQ ONE (09:51)
--- NOTE | 2020-03-11 12:20 | RAD REPORT ---
EXAM DESCRIPTION: RAD - Foot Right 3 View - 03/11/2020 12:57 am CLINICAL HISTORY: INJURY Pain and swelling COMPARISON: Foot Right 2 View dated 11/01/2012 FINDINGS: Diffuse osteopenia is seen. Very pronounced degenerative changes present involving the fir st metatarsal phalangeal joint and interphalangeal joint with significant surrounding soft tissue swe lling. Small calcaneal spurs are present. If pain persists, given the degree of osteopenia, MR imagin g of the foot would be recommended for followup.
[2020-03-11] MEDS ORDERED: COLCHICINE 0.6 MG PO PRN (14:08)
--- NOTE | 2020-03-11 14:10 | P.PN ---
Date of Service: 03/11/20 Patient has no complain this morning. Infected right diabetic foot ulcer and cellulitis. Continue antibiotics. Patient may need sharp knife debridement. Podiatry consulted to evaluate. Aggressive blood sugar control with Lantus insulin and insulin sliding scale. At home dose premeal insulin 30 units t.i.d given consistent hyperglycemia.
[2020-03-11] MEDS ORDERED: COLCHICINE 0.6 MG TAB PO PRN (14:46)
[2020-03-11 16:36] VITALS: O2SAT 100
[2020-03-11] MEDS: INSULIN LISPRO 100 UNIT/1 ML SQ SCH (17:23)
[2020-03-11] MEDS ORDERED: VANCOMYCIN 2 GM in NA CHLORIDE 0.9% 500 ML IVPB SCH (21:00)
[2020-03-11] MEDS ORDERED: HOME MED 1 EA UNK (Insulin Aspart [Novolog Flexpen] 100 UNIT/ML Insuln.Pen) SQ SCH (21:00)
[2020-03-11] MEDS ORDERED: HYDROCODONE/APAP 5/325 MG TAB PO PRN (21:29)
[2020-03-11] MEDS ORDERED: NA CHLORIDE 0.9% 250 ML ONE (22:17)
[2020-03-11] MEDS ORDERED: NA CHLORIDE 0.9% 500 ML ONE (22:21)
[2020-03-12 06:19] LABS: Potassium 3.8 mmol/L (3.5-5.1)
[2020-03-12] MEDS ORDERED: LEVOTHYROXINE SOD 0.075 MG TAB PO SCH (06:30)
[2020-03-12] MEDS: lisinopriL 20 MG TAB PO SCH (08:37)
[2020-03-12] MEDS: FENOFIBRATE 160 MG TAB PO SCH (08:38)
[2020-03-12] MEDS: INSULIN GLARGINE 100 UNITS/ML SQ SCH (08:38)
[2020-03-12] MEDS: ENOXAPARIN 40 MG/0.4 ML SQ SCH (08:38)
[2020-03-12] MEDS: ASPIRIN EC 81 MG TAB PO SCH (08:38)
[2020-03-12] MEDS: INSULIN LISPRO 100 UNIT/1 ML SQ SCH ×3 (08:39→16:26)
[2020-03-12] MEDS: INSULIN -REGULAR HUMAN 50 UNIT/0.5 ML ML SQ SCH ×4 (08:40→16:26)
[2020-03-12] MEDS: CEFEPIME/SWI 1gm 10 ML IV SCH (10:52)
--- NOTE | 2020-03-12 12:36 | P.CNS ---
Date of Consult: 03/12/20 Reason for Consult: right heel wound Chief Complaint: Diabetic heel ulcer Allergies metformin Adverse Reaction (Severe, Verified 02/06/20 12:27) kidney damage ibuprofen Adverse Reaction (Verified 02/06/20 12:27) seecom stitches Adverse Reaction (Mild, Uncoded 02/06/20 12:27) Rash Home Medications: Colchicine 0.6 mg PO BID PRN 11/21/18 Furosemide [Lasix] 40 mg PO DAILY 11/21/18 Insulin Aspart [Novolog Flexpen] 30 units SQ TID 11/21/18 Insulin Detemir [Levemir Flextouch] 46 units SQ BID 11/21/18 Levothyroxine [Synthroid*] 75 mcg PO DAILY 11/21/18 lisinopriL [Lisinopril] 40 mg PO DAILY 11/21/18 Aspirin [Aspirin EC 81 MG] 81 mg PO DAILY 02/06/20 Fenofibrate 160 mg PO DAILY 02/06/20 Naproxen Sodium [Aleve] 2 tab PO PRN PRN 02/06/20 Simethicone [Janice-[place]] 125 mg PO PRN PRN 02/06/20 Amoxicillin/Potassium Clav [Augmentin 875-125 Tablet] 1 each PO Q12H 3 Days #5 tablet 02/07/20 - Past Medical/Surgical History Diabetic: Yes -: HTN -: gout -: gerd -: hypercholesterol -: spinal cord injury -: self cath -: hypothyroidism -: paraplegic -: GERD -: Memory Loss (non active) -: Crohn's Disease (non active) -: spinal surgery -: 2 hydroceles -: I&D sacrum - Family History Mother Medical History: Hypertension, Diabetes, Stroke Notes: with gangrene leg - Social History Smoking Status: Unknown if ever smoked Alcohol use: No CD- Drugs: No Caffeine use: Yes Review of Systems 10-point ROS is otherwise unremarkable Physical Examination Temp Pulse Resp BP Pulse Ox 97.7 F 79 20 129/77 97 03/12/20 08:00 03/12/20 08:37 03/12/20 08:00 03/12/20 08:37 03/12/20 08:00 General: Alert, In no apparent distress, Oriented x3 Cardiovascular: No edema, Abnormal pulses Capillary refill: <2 Seconds Musculoskeletal: No clubbing, No swelling, No contractures, No erythema, No tenderness, No warmth, Other (bilateral paraplegia) Integumentary: Diabetic ulcer (ulceration plantar right heel with 100% eschar. No drainage, no probing, no signs of infection.) Neurological: Abnormal sensation - Problems (1) Type 2 diabetes mellitus with foot ulcer Current Visit: Yes Status: Acute Conclusions/Impression: Santyl to right foot wound daily with saline moistened gauze Patient to suspend right foot off of pillow to decrease pressure Patient to follow up in Wound Care with Dr. Dupree in one week
[2020-03-12 12:49] VITALS: BP 142/81; TEMP 98.6
--- NOTE | 2020-03-12 13:23 | P.DS ---
Admission Date: 03/11/20 Discharge Date: 03/12/20 Disposition: ROUTINE DISCHARGE Discharge Condition: FAIR Reason for Admission: Diabetic heel ulcer Consultations: Podiatry-Dr. Dupree. Brief History of Present Illness: 54-year-old gentleman with a history of diabetes mellitus type 2, hypertension presented to the emergency department for evaluation of his right diabetic foot ulcer. Patient reports developing a blister which later ruptured, developed greenish discharge from wound and later dark discoloration. The remainder of erythema was noted around. There was a concern infected diabetic foot ulcer with cellulitis. Patient was admitted for further management. Hospital Course: Patient admitted to the medical floor and started on IV vancomycin. Patient was seen by podiatry who recommended chemical debridement with santyl ointment and follow up with him as an outpatient in the wound clinic. His blood sugar was managed his home insulin regimen plus insulin sliding scale. Patient has no leukocytosis. He is clinically stable. He is discharged per Dr. Dupree's recommendation. He is prescribed more doses of Augmentin to continue treatment for cellulitis. Vital Signs/Physical Exam: Temp Pulse Resp BP Pulse Ox 98.6 F 74 20 142/81 H 97 03/12/20 12:00 03/12/20 12:00 03/12/20 12:00 03/12/20 12:00 03/12/20 12:00 General: Alert, In no apparent distress, Obese Respiratory: Clear to auscultation bilaterally, Normal air movement Cardiovascular: No edema, Regular rate/rhythm, Normal S1 S2 Gastrointestinal: Normal bowel sounds, Soft and benign, No tenderness Musculoskeletal: No swelling, No tenderness Integumentary: Diabetic ulcer (Heel of left foot-with dark slough at the ulcer floor.) Neurological: Normal speech, Normal strength at 5/5 x4 extr Laboratory Data at Discharge: WBC 6.9 K/uL (4.3-10.9) 03/11/20 00:45 Hgb 15.2 g/dL (13.6-17.9) 03/11/20 00:45 Hct 46.9 % (39.6-49.0) 03/11/20 00:45 Plt Count 155 K/uL (152-406) 03/11/20 00:45 Sodium 139 mmol/L (136-145) 03/12/20 05:41 Potassium 3.8 mmol/L (3.5-5.1) 03/12/20 05:41 BUN 29 mg/dL (7-18) H 03/12/20 05:41 Creatinine 1.40 mg/dL (0.55-1.3) H 03/12/20 05:41 Glucose 209 mg/dL (74-106) H 03/12/20 05:41 Total Bilirubin 0.4 mg/dL (0.2-1.0) 03/11/20 00:45 AST 37 U/L (15-37) 03/11/20 00:45 ALT 76 U/L (12-78) 03/11/20 00:45 Alkaline Phosphatase 136 U/L (45-117) H 03/11/20 00:45 Home Medications: Colchicine 0.6 mg PO BID PRN 11/21/18 Furosemide [Lasix] 40 mg PO DAILY 11/21/18 Insulin Aspart [Novolog Flexpen] 30 units SQ TID 11/21/18 Insulin Detemir [Levemir Flextouch] 46 units SQ BID 11/21/18 Levothyroxine [Synthroid*] 75 mcg PO DAILY 11/21/18 lisinopriL [Lisinopril] 40 mg PO DAILY 11/21/18 Aspirin [Aspirin EC 81 MG] 81 mg PO DAILY 02/06/20 Fenofibrate 160 mg PO DAILY 02/06/20 Simethicone [Janice-[place]] 125 mg PO PRN PRN 02/06/20 Amoxicillin/Potassium Clav [Augmentin 875-125 Tablet] 1 each PO Q12H #14 tablet 03/12/20 Collagenase [Santyl Ointment*] 1 appl TOP DAILY #1 tube 03/12/20 New Medications: Amoxicillin/Potassium Clav [Augmentin 875-125 Tablet] 1 each PO Q12H #14 tablet Collagenase [Santyl Ointment*] 1 appl TOP DAILY #1 tube Followup: Ramon Powers MD [Primary Care Provider] - Clinton Dupree JR DPM [ASSOCIATE-ACTIVE - CAN ADMIT] - 1 Week (at Wound care clinic.) Time spent managing pt's care (in minutes): 37
[2020-03-12] MEDS ORDERED: VANCOMYCIN 1.5 GM in NA CHLORIDE 0.9% 500 ML IVPB SCH (15:00)
[2020-03-13] MEDS ORDERED: COLLAGENASE 30 GM OINTMENT TOP SCH (09:00)
== END 2020-03-12 19:15 | disposition home or self-care (01) | DRG 638 ==
LOC: ER 23:59 → ERHOLD 03-11 03:44 → 2ND 03-11 15:14
PROVIDERS: ADMIT Family Medicine; ATTEND Internal Medicine
DX: E11.621 Type 2 diabetes mellitus with foot ulcer (principal); L97.419 Non-pressure chronic ulcer of right heel and midfoot with unspecified severity; L03.115 Cellulitis of right lower limb; E11.628 Type 2 diabetes mellitus with other skin complications; I12.9 Hypertensive chronic kidney disease with stage 1 through stage 4 chronic kidney disease, or unspecified chronic kidney disease; N18.32 Chronic kidney disease, stage 3b; E11.22 Type 2 diabetes mellitus with diabetic chronic kidney disease; E11.65 Type 2 diabetes mellitus with hyperglycemia; E78.5 Hyperlipidemia, unspecified; E03.9 Hypothyroidism, unspecified; K21.9 Gastro-esophageal reflux disease without esophagitis; Z88.8 Allergy status to other drugs, medicaments and biological substances; Z88.5 Allergy status to narcotic agent; Z79.4 Long term (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; Z79.82 Long term (current) use of aspirin; Z79.890 Hormone replacement therapy; Z79.899 Other long term (current) drug therapy; Z20.822 Contact with and (suspected) exposure to COVID-19
CPT/HCPCS: 36415; 80048; 80076; 82947; 83605; 85025; 87040; 96365; 96366; 96367; 96375; 99251; 99285; J0692; J1650; J1815; J2543; J3370; J7030; J7040; J7050; U0003

== ENCOUNTER 2020-07-12 22:22 | Emergency (ER) | payer OTHER ==
--- OUTSIDE RECORDS SUMMARY | 2020-07-12 22:26 | XMS REPORT | Continuity of Care Document ---
:1965 Author Organization [facility] t Address [address] [place] [address] Care Team Providers Name Role Phone Elizabeth German Attending Clinician FAITH GOMEZ Attending Clinician Unavailable Amparo Virgen Attending Clinician Daniel Nicholas Attending Clinician Jennifer Martinez Attending Clinician Jose M Azevedo Jr Attending Clinician Monserrat Admitting Clinician ILIANA GOMEZ Admitting Clinician Unavailable Payers Payer Name Policy Type Policy Effective Date Expiration Date [facility] ce Number [facility] [id number] [address] [facility] [address] [id number] 2015- 00:00:00 L zoe - Cliff Contracted [facility] Problems Condition Condition Condition Status Onset Resolution Last Treating Co mments Source Name Details Category Date Date Treatment Clinician Date CHEST PAIN Diagnosis Active 2020-06-14 Memoria 06-14 23:21:00 l CHEST 00:00: [place] PAIN 00 Active 06/14/2020 [facility] ACUTE Diagnosis Active 2020-06-27 Mem oria CHEST PAIN 06-14 21:53:00 l ACUTE 00:00: [place] CHEST PAIN 00 Active 06/14/2020 [facility] Epididymit Epididymit Disease Active [facility] DM2 DM2 Disease Active [facility] (diabetes (diabetes 06-30 [facility] - mellitus, mellitus, 00:00: Medi timothy type 2) type 2) 00 Center HTN HTN Disease Active [facility] (hypertens (hypertens 24 Cindy kes - ion) ion) 00:00: Medical 00 Center Hypothyroi Hypothyroi Disease Active [facility] F/U Diagnosis Active 2013-032014-06-06 Mem oria 1-05 12:19:00 l F/U 00:00: [place] 00 Active 01/11/2014 [facility] EVAL Diagnosis Active 2013-12-14 Mem oria 9- 15:03:00 l EVAL 00:00: [place] 00 Active 11/15/2013 [facility] DC F/U Diagnosis Active 2013-12-20 Mem oria 7-07 15:41:00 l DC F/U 00:00: [place] 00 Active 09/12/2013 [facility] FERT Diagnosis Active 2013-11-08 Mem oria 4-15 01:18:00 l FERT 00:00: [place] 00 Active 06/21/2013 [facility] ED Diagnosis Active 2013-11-08 Mem oria 4-14 01:18:00 l ED 00:00: [place] 00 Active 06/20/2013 [facility] NO ORDERS Diagnosis Active 2013-11-08 Memoria WRITTEN 3-18 01:18:00 l NO 00:00: [place] ORDERS 00 WRITTEN Active 05/24/2013 [facility] NEUROGENIC Diagnosis Active 2014-07-28 Memoria BLADDER 2-11 16:13:00 l 00:00: [place] NEUROGENIC 00 BLADDER Active 04/19/2013 [facility] TBI Diagnosis Active 2013-12-12 Mem oria 1- 12:27:00 l TBI 23:59: [place] 00 Active 03/09/2000 [facility] SCI Diagnosis Active 2014-09-13 Mem oria 1- 16:37:00 l SCI 08:00: [place] 00 Active 03/09/2000 [facility] Diabetes(C Problem Active 2014-02-22 M emoria onfirmed) 19:04:26 l [place] Diabetes(C onfirmed) Active Problem 02/22/2014 [facility] GOUT(Confi Problem Active 2014-02-22 M emoria rmed) 19:04:26 l [place] GOUT(Confi rmed) Active Problem 02/22/2014 [facility] Pure Problem Active 2014-02-22 Memor ia hyperchole 19:04:26 l sterolemia Pure Jose n (disorder) hyperchole sterolemia (disorder) Active Problem 02/22/2014 [facility] Impotence Problem Active 2020-06-17 Me moria (disorder) 22:29:12 l [place] Impotence (disorder) Active Problem 06/17/2020 [facility] Neurogenic Problem Active 2020-06-17 M emoria bladder 22:29:12 l (finding) [place] Neurogenic bladder (finding) Active Problem 06/17/2020 [facility] Spinal Problem Active 2020-06-17 Memor ia cord 22:29:12 l injury Spinal [place] (disorder) cord injury (disorder) Active Problem 06/17/2020 [facility] ILLNESS, Diagnosis Active 2020-06-14 M emoria UNSPECIFIE 23:21:00 l D ILLNESS, Jose n UNSPECIFIE D Active [facility] CHEST Diagnosis Active 2020-06-27 Mem oria PAIN, 21:53:00 l UNSPECIFIE CHEST Love nn D PAIN, UNSPECIFIE D Active [facility] Spinal Problem Resolve 2020-06-17 2020-06-17 Memoria cord d - 22:29:12 22:29:12 l stroke Spinal 00:00: [place] (disorder) cord 00 stroke (disorder) Resolved 11/15/2013 Problem 06/17/2020 apr 19 2013 [facility] Diabetes Problem Resolve 2020-06-17 2020-06-17 Memoria mellitus d - 22:29:12 22:29:12 l (disorder) Diabetes 00:00: He rmann mellitus 00 (disorder) Resolved 07/08/2013 Problem 06/17/2020 [facility] GOUT(Confi Problem Resolve 2020-06-17 2020-06-17 Memoria rmed) d 07-08 22:29:12 22:29:12 l 00:00: [place] GOUT(Confi 00 rmed) Resolved 07/08/2013 Problem 06/17/2020 [facility] Hyperchole Problem Resolve 2020-06-17 2020-06-17 Memoria sterolemia d 07-08 22:29:12 22:29:12 l (disorder) 00:00: Jose n Hyperchole 00 sterolemia (disorder) Resolved 07/08/2013 Problem 06/17/2020 [facility] Essential Problem Resolve 2020-06-17 2020-06-17 Memoria hypertensi d 07-08 22:29:12 22:29:12 l on 00:00: [place] (disorder) Essential 00 hypertensi on (disorder) Resolved 07/08/2013 Problem 06/17/2020 [facility] Allergies, Adverse Reactions, Alerts Allergy Allergy Status Severity Reaction(s) Onset Inactive Treating Comm ents Source Name Type Date Date Clinician Ibuprofe Propensi Active [facility]-24 [facility] - adverse 00:00: Medical reaction 00 Irwin s Metformi Propensi Active Kidney [facility] to 4-24 [facility] - adverse 00:00: Medical reaction 00 Irwin s ibuprofe ibuprofe Active Memori a n n l [place] metFORMI metFORMI Active Memori [facility] N N l [place] Family History Family Member Diagnosis Comments Start Date Stop Date Source Natural brother Kidney disease [facility] Natural mother Diabetes [facility] Natural sister Diabetes [facility] Social History Social Habit Start Date Stop Date Quantity Comments Source Sex Assigned At [facility] Tobacco use and 2016-07-01 2016-07-01 Former user [facility] St Yin ukes - exposure 00:00:00 00:00:00 [facility] Alcohol intake 2016-07-01 2016-07-01 Current [facility] - 00:00:00 00:00:00 non-drinker of Medical Ce nter alcohol (finding) Social History 2013-04-20 2013-04-20 [facility] 11:02:37 11:02:37 History of 1986-06-30 User of smokeless [facility] - tobacco use 00:00:00 tobacco Medical Becca willett Smoking Status Start Date Stop Date Source Former smoker 2016-07-01 00:00:00 2016-07-01 00:00:00 [facility] Medications Ordered Filled Start Stop Current Ordering Indication Dosage Frequency Signature Comments Components Source Medication Medication Date Date Medication? Clinician (SIG) Name Name chris No Notes: Brandon karina n 4-10 (Same As: l 02:00: Lipitor) [place] 00 cefdinir Yes 300 mg = 1 Mem oria 300 MG Oral 4-09 cap, PO, l Capsule 22:52: Q12H, X 7 Love nn 00 day, # 14 cap, 0 Refill(s), Pharmacy: [facility], 172.72, cm, 06/14/20 23:37:00 CDT, Height, 106.545, kg, 06/14/20 23:37:00 CDT, Weight Colchicine Yes 0.6 mg = 1 M emoria 0.6 MG Oral 4-09 tab, PO, l Tablet 22:36: BID, 0 [place] 00 Refill(s) pravastatin Yes 20 mg = 1 M emoria 20 mg oral 4-09 tab, PO, l tablet 22:36: Bedtime, # Love nn 00 90 tab, 0 Refill(s), Pharmacy: [facility], 172.72, cm, 06/14/20 23:37:00 CDT, Height, 106.545, kg, 06/14/20 23:37:00 CDT, Weight pantoprazol Yes 40 mg = 1 M emoria e 40 mg 4-09 tab, PO, l oral 22:36: Before [place] enteric 00 Breakfast, coated # 30 tab, tablet 0 Refill(s), Pharmacy: [facility], 172.72, cm, 06/14/20 23:37:00 CDT, Height, 106.545, kg, 06/14/20 23:37:00 CDT, Weight { Yes See Memoria (Methylpred 4-09 Instructio l nisolone 4 22:36: ns, PO, Herm yogesh MG Oral 00 Take by Tablet mouth as [Medrol]) } directed Pack on label., [Medrol X 6 day, # Dosepak] 21 tab, 0 Refill(s), Pharmacy: [facility], 172.72, cm, 06/14/20 23:37:00 CDT, Height, 106.545, kg, 06/14/20 23:37:00 CDT, Weight NovoLog No 30 unit, Memori a - Route: l 21:30: SUB-Q, [place] 00 TID-Before Meals, Dosing Weight 106.545, kg, Start date: 06/15/20 16:30:00 CDT, Duration: 30 day, Stop date: 07/15/20 11:30:00 CDT Humalog No Notes: Memoria 4- (Same as: l 21:30: Humalog) [place] 00 Roll in palms of hands gently; Do not shake vigorously . WASTE: F/P - Black; E - Municipal Trash Bin Stable for 28 days at room temperatur e. Expires in days from ____Date Ceftriaxone No Notes: Brandon karina - (Same As: l 21:00: Rocephin). [place] 00 Use with 100 mL NS and infuse over 30 min MEDICATION WASTE Product Size: 1000 mg Product Wasted: ___ mg Insulin No Notes: Memoria Glargine - (Same as: l 15:00: Lantus) Do [place] 00 not hold insulin without contacting prescriber WASTE: F/P - Black; E - Municipal Trash Bin "single patient use only" Stable for 28 days at room temperatur e Expires in days from ____Date Protonix No Notes: Memoria 4-09 Tablet l 14:28: should not [place] 00 be chewed or crushed. (Same as: Protonix) ketOROLAC No 4 days Memor ia 30 mg/mL 06-15 l injectable 14:28: MEDICATION H ermann solution 00 WASTE Product Size: 30 mg Product Wasted: ___ mg Colchicine No Notes: Memor ia 0.6 MG Oral 06-15 Hazardous l Tablet 14:00: Drug Group Love nn 00 3:Reproduc tive risk Hazardous Drug -- Refer to safe handling procedure PPE Matrix Fenofibrate No Notes: Brandon karina 160 MG Oral 06-15 Non-Formul l Tablet 14:00: noe Drug [place] (Same as: Tricor) Furosemide No Notes: Memor ia 20 MG Oral 06-15 (Same as: l Tablet 14:00: Lasix) May cause GI upset. Give with food or milk. insulin No 40 unit, Memori a detemir 06-15 Route: l 14:00: SUB-Q, Drug form: SOLN, Q12H, Dosing Weight 106.545, kg, Start date: 06/15/20 9:00:00 CDT, Duration: 30 day, Stop date: 07/14/20 21:00:00 CDT Thyroxine No Notes: Memori a -09 Take 1 l 14:00: hour before or 2 hours after meal; Enteral feeds may interefere with the absorption of this medication . (Same as:Synthro id, Levothroid ) Aspirin 81 No Notes: Memor ia MG Chewable 06-15 Take with l Tablet 14:00: food. [place] Saline No Notes: Memoria Flush 0.9% 06-15 (Same as: l 14:00: BD Posiflush) BD Normal No Notes: Memori a Saline - (Same as: l Flush 12:44: BD Posiflush) Sodium No 25 mL, Memoria Chloride 06-15 Route: IV, l 0.9% IV 12:44: Start date: 06/15/20 7:44:00 CDT, Duration: 30 day, Stop date: 07/15/20 7:43:00 CDT, PRN Line Flush, 0 BD Normal No Notes: Memori a Saline 06-15 (Same as: l Flush 12:43: BD Posiflush) Dextrose No 12.5 gm, Memor ia 50% Syringe 06-15 25 mL, l (D50W) 12:36: Route: [place] 00 IVP, Drug Form: INJ, Dosing Weight 106.545, kg, PRN, PRN Blood Glucose Results, Start date: 06/15/20 7:36:00 CDT, Duration: 30 day, Stop date: 07/15/20 7:35:00 CDT, 0 Glucagon No 1 mg, Memoria 06-15 Route: IM, l 12:36: Drug form: PDR/INJ, PRN, Dosing Weight 106.545, kg, PRN Blood Glucose Results, Start date: 06/15/20 7:36:00 CDT, Duration: 30 day, Stop date: 07/15/20 7:35:00 CDT, 0 Insulin No Notes: Memoria Lispro 06-15 (Same as: l 12:36: Humalog) Roll in palms of hands gently; Do not shake vigorously . WASTE: F/P - Black; E - Municipal Trash Bin Stable for 28 days at room temperatur e. Expires in days from ____Date Dilaudid No Notes: Memoria 06-15 Same as l 09:18: Dilaudid Nitroglycer No Notes: Brandon karina in 06-15 (Same l 05:09: as:Nitroqu ick, Nitrostat) "Do Not Crush" Sublingual tablet Saline No Notes: Memoria Flush 0.9% 06-15 (Same as: l 05:09: BD Posiflush) lisinopril No 40 mg = 1 Me moria 40 mg oral 06-15 tab, PO, l tablet 05:00: Daily, 0 Refill(s) NovoLog Yes See Memoria 06-15 Instructio l 04:58: ns, 30 U [place] 00 SUB-Q TID-Before Meals, 0 Refill(s) insulin Yes See Memoria detemir 100 06-15 Instructio l UNT/ML 04:57: ns, 40U [place] Injectable 00 BID SUB-Q, Solution 0 [Levemir] Refill(s) levothyroxi Yes 75 Memori a ne 75 mcg - microgram l (0.075 mg) 04:56: = 1 tab, Her minor oral tablet 00 PO, Daily, 0 Refill(s) Aspirin Yes 81 mg, PO, Brandon karina 06-15 Daily, 0 l 04:56: Refill(s) [place] 00 Fenofibrate Yes 160 mg = 1 Memoria 160 MG Oral 06-15 tab, PO, l Tablet 04:55: Daily, 0 [place] 00 Refill(s) Furosemide Yes 20 mg = 1 Me moria 20 MG Oral 06-15 tab, PO, l Tablet 04:55: Daily, 0 [place] 00 Refill(s) Colchicine No 0.6 mg = 1 M emoria 0.6 MG Oral 06-15 tab, PO, l Tablet 04:54: BID, 0 [place] Refill(s) atenolol Yes 50mg QD Take [address] [facility] (TENORMIN) - by mouth [facility] - 50 MG 15:23: daily. Medical tablet 08 Center oxybutynin Yes 5mg [id number] Take [address] [facility] (DITROPAN) - [id number] by mouth 3 [facility] - 5 MG [...] as needed As needed for gout . heparin, Yes 7,500 Memoria porcine 5-02 unit, l 16:46: SUB-Q, [place] 00 Q12H, 0 Refill(s) glimepiride Yes 4 mg = 1 Me moria 4 mg oral 5-02 tab, PO, l tablet 16:46: Daily, # [place] 00 30 tab, 0 Refill(s) Docusate Yes 100 mg = 1 Mem oria Sodium 100 5-02 cap, PO, l MG Oral 16:46: BID, [place] Capsule 00 Constipati [Colace] on, # 20 cap, 0 Refill(s) Bisacodyl Yes 10 mg = 1 Mem oria 10 MG 5-02 supp, MA, l Rectal 16:46: Daily, [place] Suppository 00 Constipati [Bisac-Evac on, # 10 ] supp, 0 Refill(s) Atenolol 50 Yes 50 mg = 1 M emoria MG Oral 5-02 tab, PO, l Tablet 16:46: Daily, # [place] 00 30 tab, 0 Refill(s) allopurinol Yes 100 mg = 1 Memoria 100 mg oral 5-02 tab, PO, l tablet 16:46: TID, # 60 Jose n 00 tab, 0 Refill(s) 3 ML Yes sliding Memoria Insulin, 5-02 scale l Aspart, 16:46: before [place] Human 100 00 meals, UNT/ML SUB-Q, Prefilled TID-Before Syringe Meals, # 3 [NovoLog] mL, 0 Refill(s) Senna-gen Yes Special Memor ia 8.6 mg oral 5-02 Instructio l tablet 16:46: ns: at [place] 00 noon Ranitidine Yes 150 mg = 1 M emoria 150 MG Oral 5-02 cap, PO, l Capsule 16:46: BID, # 60 Love nn 00 cap, 0 Refill(s) pravastatin Yes 20 mg = 1 M emoria 20 mg oral 5-02 tab, PO, l tablet 16:46: Bedtime, # Love nn 00 30 tab, 0 Refill(s) magnesium Yes 400 mg = 1 Me moria oxide 400 5-02 tab, PO, l mg oral 16:46: Daily, 0 Jose n tablet 00 Refill(s) insulin Yes 55 in am Memori a detemir 100 5-02 and 25 l units/mL 16:46: units at Love nn subcutaneou 00 night, s solution SUB-Q, BID, # 10 ml, 0 Refill(s) Omnipaque Yes Notes: Memori a 300 4-14 (Same l 15:20: as:Omnipaq [place] 00 ue 300). Vital Signs Vital Name Observation Time Observation Value Comments Source Temperature Oral (F) 2020-06-15 20:48:00 98.0 F [facility] [place] Heart Rate 2020-06-15 20:48:00 [facility] [place] Respitory Rate 2020-06-15 20:48:00 Memori al [place] Systolic (mm Hg) 2020-06-15 20:48:00 Brandon rial [place] Diastolic (mm Hg) 2020-06-15 20:48:00 Mem orial [place] Temperature Oral (F) 2020-06-15 17:22:00 97.6 F [facility] [place] Heart Rate 2020-06-15 17:22:00 [facility] [place] Respitory Rate 2020-06-15 17:22:00 Memori al [place] Systolic (mm Hg) 2020-06-15 17:22:00 Brandon rial [place] Diastolic (mm Hg) 2020-06-15 17:22:00 Mem orial [place] Temperature Oral (F) 2020-06-15 12:55:00 97.6 F [facility] [place] Heart Rate 2020-06-15 12:55:00 [facility] [place] Respitory Rate 2020-06-15 12:55:00 Memori al [place] Systolic (mm Hg) 2020-06-15 12:55:00 Brandon rial [place] Diastolic (mm Hg) 2020-06-15 12:55:00 Mem orial [place] BMI Calculated 2020-06-15 05:09:00 Memori al [place] Height 2020-06-15 04:37:00 172.72 cm [facility] [place] Weight 2020-06-15 04:37:00 [facility] [place] BMI Calculated 2020-06-15 04:37:00 Memori al [place] Heart Rate 2014-02-11 18:33:00 [facility] [place] Systolic (mm Hg) 2014-02-11 18:33:00 Brandon rial [place] Diastolic (mm Hg) 2014-02-11 18:33:00 Mem orial [place] Systolic (mm Hg) 2014-01-21 16:31:00 Brandon rial [place] Heart Rate 2014-01-21 16:31:00 [facility] [place] Diastolic (mm Hg) 2014-01-21 16:31:00 Mem orial [place] Heart Rate 2013-12-24 17:08:00 [facility] [place] Diastolic (mm Hg) 2013-12-24 17:08:00 Mem orial [place] Systolic (mm Hg) 2013-12-24 17:08:00 Brandon rial [place] Systolic (mm Hg) 2013-12-17 17:32:00 Brandon rial [place] Heart Rate 2013-12-17 17:32:00 [facility] [place] Diastolic (mm Hg) 2013-12-17 17:32:00 Mem orial [place] Heart Rate 2013-12-14 20:29:00 [facility] [place] Diastolic (mm Hg) 2013-12-14 20:29:00 Mem orial [place] Respitory Rate 2013-12-14 20:29:00 Memori al [place] Systolic (mm Hg) 2013-12-14 20:29:00 Brandon rial [place] BMI Calculated 2013-12-14 20:29:00 Memori al [place] Weight 2013-12-14 20:29:00 [facility] [place] Height 2013-12-14 20:29:00 172.72 cm [facility] [place] Diastolic (mm Hg) 2013-12-10 14:08:00 Mem orial [place] Systolic (mm Hg) 2013-12-10 14:08:00 Brandon rial [place] Systolic (mm Hg) 2013-12-03 14:19:00 Brandon rial [place] Diastolic (mm Hg) 2013-12-03 14:19:00 Mem orial [place] Diastolic (mm Hg) 2013-11-15 13:38:00 Mem orial [place] Respitory Rate 2013-11-15 13:38:00 Memori al [place] Heart Rate 2013-11-15 13:38:00 [facility] [place] Systolic (mm Hg) 2013-11-15 13:38:00 Brandon rial [place] Temperature Oral (F) 2013-11-15 13:38:00 98.2 F [facility] [place] BMI Calculated 2013-11-15 13:38:00 Memori al [place] Height 2013-11-15 13:38:00 172.72 cm [facility] [place] Weight 2013-11-15 13:38:00 [facility] [place] Heart Rate 2013-11-12 15:07:00 [facility] [place] Diastolic (mm Hg) 2013-11-12 15:07:00 Mem orial [place] Systolic (mm Hg) 2013-11-12 15:07:00 Brandon rial [place] BMI Calculated 2013-07-08 16:51:00 Memori al [place] Height 2013-07-08 16:51:00 172.72 cm [facility] [place] Weight 2013-07-08 16:51:00 [facility] [place] Diastolic (mm Hg) 2013-07-08 16:51:00 Mem orial [place] Systolic (mm Hg) 2013-07-08 16:51:00 Brandon rial [place] Heart Rate 2013-07-08 16:51:00 [facility] [place] Respitory Rate 2013-07-08 16:51:00 Memori al [place] Diastolic (mm Hg) 2013-06-30 17:34:00 Mem orial [place] Systolic (mm Hg) 2013-06-30 17:34:00 Brandon rial [place] Heart Rate 2013-06-28 23:23:00 [facility] [place] Systolic (mm Hg) 2013-06-28 23:23:00 Brandon rial [place] Diastolic (mm Hg) 2013-06-28 23:23:00 Mem orial [place] Heart Rate 2013-06-20 15:01:00 [facility] [place] Respitory Rate 2013-06-20 15:01:00 Memori al [place] Systolic (mm Hg) 2013-06-20 15:01:00 Brandon rial [place] Diastolic (mm Hg) 2013-06-20 15:01:00 Mem orial [place] Temperature Oral (F) 2013-06-20 15:01:00 98.7 F [facility] [place] Height 2013-06-20 15:00:00 172.72 cm [facility] [place] BMI Calculated 2013-06-20 15:00:00 Memori al [place] Weight 2013-06-20 15:00:00 [facility] [place] Diastolic (mm Hg) 2013-06-07 16:00:00 Mem orial [place] Systolic (mm Hg) 2013-06-07 16:00:00 Brandon rial [place] Heart Rate 2013-06-07 16:00:00 [facility] [place] Heart Rate 2013-06-07 15:07:00 [facility] [place] Procedures Procedure Date / Time Performed Performing Clinician [facility] e Video urodynamic study 2013-06-20 05:00:00 Memor ial [place] Laminectomy [facility] [place] Encounters Start End Encounter Admission Attending Care Care Encounter Source Date/Time Date/Time Type Type Clinicians Facility Department ID 2020-06-15 2020-06-15 Outpatient Monserrat [facility] [id number] 00:09:00 19:09:00 Elizabeth 98 2020-06-15 2020-06-15 Outpatient [facility] [id number] Memoria 00:09:00 00:09:00 [facility] 2020-02-14 2020-02-14 [facility] [id number] 2020-02-07 2020-02-07 Out[facility] [id number] [facility] 2020-01-17 2020-01-17 Out[facility] [id number] [facility] 2020-01-16 2020[facility]01[id number] 2020-01-09 2020-01-09 [facility] [id number] [facility] 2014-01-21 2014-02-19 Outpatient Tastard, [facility] [id number] 08:00:00 23:59:00 Birdie Amparo 2014-01-21 2014-02-19 Outpatient Tastard, [facility] [id number] 08:00:00 23:59:00 Birdie Amparo 2014-01-21 2014-02-19 Outpatient Tastard, [facility] [id number] 08:00:00 23:59:00 Birdie Amparo 2013-12-17 2014-01-15 Outpatient Tastard, [facility] [id number] 08:00:00 23:59:00 Birdie Amparo 2013-12-14 2013-12-14 Outpatient Nicholas, [facility] [id number] 14:55:00 23:59:00 Gamaliel 11 Daniel 2013-11-12 2013-12-11 Outpatient Tastard, [facility] [id number] 08:00:00 23:59:00 Birdie Amparo 07 2013-11-15 2013-11-15 Outpatient Michelle, [facility] [id number] 08:01:00 23:59:00 Cori Rodriguez 10 2013-10-08 2013-11-06 Outpatient Tastard, [facility] [id number] 08:00:00 23:59:00 Birdie Amparo 2013-09-10 2013-10-09 Outpatient Tastard, [facility] [id number] 08:00:00 23:59:00 Birdie Amparo 2013-07-08 2013-07-08 Outpatient Tastard, [facility] [id number] 11:26:00 23:59:00 Birdie Amparo 2013-06-07 2013-07-06 Outpatient Tastard, [facility] [id number] 09:13:00 23:59:00 Birdie Amparo 03 2013-06-20 2013-06-20 Outpatient Roberto Carlos, [facility] [id number] 09:43:00 23:59:00 Tung Flores Results Test Description Test Time Test Comments Results Result Sourc e Comments URINE AND STOOL 2020-06-15 Large [facility] 16:30:00 *ABN*(06/15/20 [place] 11:30 AM) URINE AND STOOL 2020-06-15 84 [facility] 16:30:00 [place] URINE AND STOOL 2020-06-15 9 [facility] 16:30:00 [place] URINE AND STOOL 2020-06-15 500 [facility] 16:30:00 [place] CEFTAZIDIME:SUSC:P 2020-06-15 Proteus [facility] T:ISOLATE:ORDQN:DC 16:30:00 mirabilis Jose n C URINE AND STOOL 2020-06-15 Marked [facility] 16:30:00 *ABN*(06/15/20 [place] 11:30 AM) URINE AND STOOL 2020-06-15 16:30:00 Test Item Value Reference Range Interpretation Comme nts UA Spec Grav (test code = UA Spec Grav) 1.022 1 [facility] [id number] 16:30:00 Test Item Value Reference Range Interpretation Comments UA pH (test code = UA pH) 7.0 1 5.0-8.0 [facility] [id number] 16:30:00Negative *NA*(06/15/20 11:30 AM) [facility] [id number] 16:30:00Small *ABN*(06/15/20 11:30 AM) [facility] [id number] 16:30:00Positive *ABN*(06/15/20 11:30 AM)[facility]ann[facility]ARDIAC [id number] 10:57:00<0.02[facility] [place] CARDIAC [id number] 06:53:00<0.02[facility] [id number] 06:53:57300Uxyvfazo [id number] 06:53:23677Ylgfrtrl HermannLIPIDS 2020-06-15 06:53:0028Memoride [id number] 06:53:00 Test Item Value Reference Range Interpretation Comments CHD Risk (test code = CHD Risk) 6.21 1 4.00-7.30 [facility] [id number] 06:53:0080[facility] [id number] 06:53:00 Test Item Value Reference Range Interpretation Comments VLDL (test code = VLDL) 66 1 [facility] HermannBLOOD [id number] 14:28:00 Test Item Value Reference Range Interpretation Comments CULTURE (BEAKER) (test No growth in 5 days code = 1095) POCT-GLUCOSE [id number] 12:04:00 Test Item Value Reference Range Interpretation Comments POC-GLUCOSE METER 179 mg/dL 70-[address] [facility] 67[address] (BEAKER) (test code = ADOLFO [place] 1538) [address] BASIC METABOLIC [id number] 09:51:00 Test Item Value Reference Range Interpretation [...] PATIEN TS. CBC W/PLT COUNT & AUTO [id number] 09:20:00 Test Item Value Reference Range Interpretation [...] L 0.00-0.20 (test code = 417) 0.00POCT-GLUCOSE [id number] 07:15:00 Test Item Value Reference Range Interpretation Comments POC-GLUCOSE METER 246 mg/dL 70-110 H TESTED AT [place] [address] ([facility]) (test code = ADOLFO Willett [facility] 1538) [id number] POCT-GLUCOSE [id number] 21:12:00 Test Item Value Reference Range Interpretation Comments POC-GLUCOSE METER 89 mg/dL 70-110 TESTED AT [place] [address] ([facility]) (test code = ADOLFO Willett [facility] [address] 1538) POCT-GLUCOSE [id number] 17:12:00 Test Item Value Reference Range Interpretation Comments POC-GLUCOSE METER 217 mg/dL 70-110 H TESTED AT [place] [address] ([facility]) (test code = [facility] 1538) [address] URINE [id number] 12:07:00 Test Item Value Reference Range Interpretation Comments CULTURE ([facility]) (test <10,000 col/mL skin code = 1095) candi POCT-GLUCOSE [id number] 11:30:00 Test Item Value Reference Range Interpretation Comments POC-GLUCOSE METER 205 mg/dL 70-110 H TESTED AT [place] [address] ([facility]) (test code = [facility] Tamie [facility] 1538) [id number] POCT-GLUCOSE [id number] 07:36:00 Test Item Value Reference Range Interpretation Comments POC-GLUCOSE METER 195 mg/dL 70-110 H TESTED AT [place] [address] ([facility]) (test code = [facility] Tamie [facility] 1538) [id number] CBC W/PLT COUNT & AUTO [id number] 05:14:00 Test Item Value Reference Range Interpretation Comments WHITE BLOOD CELL COUNT ([facility]) 6.7 K/ L 4.0-10.0 (test code = 775) RED BLOOD CELL COUNT ([facility]) 4.40 M/ L 4.20-5.80 (test code = 761) HEMOGLOBIN ([facility]) (test code = 13.3 GM/DL 13.0-16.8 410) HEMATOCRIT ([facility]) (test code = 38.2 % 40.0-50.0 L 411) MEAN CORPUSCULAR VOLUME ([facility]) 86.8 fL 82.0-98.0 (test code = 753) MEAN CORPUSCULAR HEMOGLOBIN 30.1 pg 27.0-33.0 ([facility]) (test code = 751) MEAN CORPUSCULAR HEMOGLOBIN [...] 0.00-0.20 (test code = 417) 0.00BASI METABOLIC [id number] 05:14:00 Test Item Value Reference Range Interpretation [...] mg/dL 8.4-10.2 (test code = 697) EGFR ([facility]) (test 67 mL/min/1.73 ESTIMA FAYE GFR IS code = 1092) sq m NOT ACCURATE CREATININE CLEARANCE IN PREDICTING GLOMERULAR FILTRATION RATE . ESTIMATED GFR I S NOT APPLICABLE FOR DIALYSIS PATIEN TS. POCT-GLUCOSE [id number] 21:04:00 Test Item Value Reference Range Interpretation Comments POC-GLUCOSE METER 178 mg/dL 70-110 H TESTED AT [place] [address] ([facility]) (test code = [facility] 1538) [id number] POCT-GLUCOSE [id number] 17:07:00 Test Item Value Reference Range Interpretation Comments POC-GLUCOSE METER 88 mg/dL 70-110 TESTED AT [place] [address] ([facility]) (test code = [facility] [address] 1538) POCT-GLUCOSE [id number] 12:30:00 Test Item Value Reference Range Interpretation Comments POC-GLUCOSE METER 107 mg/dL 70-110 TESTED AT [place] [address] ([facility]) (test code = [facility] 1538) [id number] POCT-GLUCOSE [id number] 07:46:00 Test Item Value Reference Range Interpretation Comments POC-GLUCOSE METER 169 mg/dL 70-110 H TESTED AT [place] [address] ([facility]) (test code = [facility] 1538) [address] CBC W/PLT COUNT & AUTO [id number] 07:42:00 Test Item Value Reference Range Interpretation Comments WHITE BLOOD CELL COUNT ([facility]) 6.5 K/ L 4.0-10.0 (test code = 775) RED BLOOD CELL COUNT ([facility]) 4.57 M/ L 4.20-5.80 (test code = 761) HEMOGLOBIN ([facility]) (test code = 13.4 GM/DL 13.0-16.8 410) HEMATOCRIT ([facility]) (test code = 40.4 % 40.0-50.0 411) MEAN CORPUSCULAR VOLUME ([facility]) 88.3 fL 82.0-98.0 (test code = 753) MEAN CORPUSCULAR HEMOGLOBIN 29.3 pg 27.0-33.0 ([facility]) (test code = 751) MEAN CORPUSCULAR HEMOGLOBIN [...] 0.00-0.20 (test code = 417) 0.00BASI METABOLIC [id number] 06:13:00 Test Item Value Reference Range Interpretation [...] NOT APPLICABLE FOR DIALYSIS PATIEN TS. POCT-GLUCOSE [id number] 22:12:00 Test Item Value Reference Range Interpretation Comments POC-GLUCOSE METER 238 mg/dL 70-110 H TESTED AT [place] [address] ([facility]) (test code = [facility] [place] 1538) [address] POCT-GLUCOSE [id number] 17:25:00 Test Item Value Reference Range Interpretation Comments POC-GLUCOSE METER 102 mg/dL 70-110 TESTED AT [place] [address] ([facility]) (test code = [facility] [place] 1538) [address] URINALYSIS W/ [id number] 12:50:00 Test Item Value Reference Range Interpretation [...] 520) < /HPF SOURCE(BEAKER) (test code = 9185) POCT-GLUCOSE [id number] 12:04:00 Test Item Value Reference Range Interpretation Comments POC-GLUCOSE METER 226 mg/dL 70-110 H TESTED AT [place] [address] (BEAKER) (test code = [facility] [place] [facility] 1538) [address] POCT-GLUCOSE [id number] 08:00:00 Test Item Value Reference Range Interpretation Comments POC-GLUCOSE METER 300 mg/dL 70-[address] [facility] [address] (BEAKER) (test code = [facility] [place] [facility] 1538) [address] BASIC METABOLIC [id number] 06:50:00 Test Item Value Reference Range Interpretation [...] PATIEN TS. CBC W/PLT COUNT & AUTO [id number] 06:01:00 Test Item Value Reference Range Interpretation [...] L 0.00-0.20 (test code = 417) 0.00POCT-GLUCOSE [id number] 21:25:00 Test Item Value Reference Range Interpretation Comments POC-GLUCOSE METER 279 mg/dL 70-[address] [facility] [address] (BEAKER) (test code = [facility] [place] 1538) [address] HEMOGLOBIN [id number] 21:13:00 Test Item Value Reference Range Interpretation Comments HEMOGLOBIN A1C (BEAKER) (test code = 10.7 % 4.3-6.1 H 368) CBC W/PLT COUNT & AUTO [id number] 20:47:00 Test Item Value Reference Range Interpretation [...] L 0.00-0.20 (test code = 417) 0.00POCT-GLUCOSE [id number] 18:31:00 Test Item Value Reference Range Interpretation Comments POC-GLUCOSE METER 205 mg/dL 70-[address] [facility] [address] (BEAKER) (test code = [facility] [place] [facility] 1538) [id number]
[2020-07-12] MEDS ORDERED: IBUPROFEN 100 MG/5 ML UCUP ONE (23:30)
--- NOTE | 2020-07-13 00:43 | ER ---
Nurse's Notes [facility] Name: Ramirez Chaudhari Age: 55 yrs Sex: Male : 1965 Arrival Date: 07/12/2020 Time: 22:31 Bed 13 Private MD: Diagnosis: Blister (nonthermal) of toe-left great toe Presentation: 07/12 22:59 Chief complaint: Patient states: my left big toe is swollen and I poked a hole in it ca1 and it drained a thin yellow fluid but it just swells back up. Dr Dupree did a skin graft on my heel on Thursday and it looks ok. I just noticed swelling in my toe today. Coronavirus screen: Client denies travel out of the [place] in the last 14 days. Client indicates they have traveled out of the [place] in the last 14 days. At this time, unable to obtain information related to travel outside the [place] Ebola Screen: Patient negative for fever greater than or equal to 101.5 degrees Fahrenheit, and additional compatible Ebola Virus Disease symptoms Patient denies exposure to infectious person. Patient denies travel to an Ebola-affected area in the 21 days before illness onset. Initial Sepsis Screen: Does the patient meet any 2 criteria? No. Patient's initial sepsis screen is negative. Does the patient have a suspected source of infection? Yes: Skin breakdown/wound. Risk Assessment: Do you want to hurt yourself or someone else? Patient reports no desire to harm self or others. Onset of symptoms was July 12, 2020. 22:59 Method Of Arrival: Wheelchair ca1 22:59 Acuity: NOHEMI 3 ca1 Triage Assessment: 23:00 Injury Description: blister. rr5 Historical: - Allergies: 23:04 Ibuprofen; ca1 23:04 metformin; ca1 - Home Meds: 23:04 Colcrys 0.6 mg Oral tab 1 tab bid prn gout [Active]; furosemide 40 mg Oral tab 1 tab ca1 once daily [Active]; Levemir 46 units subcutaneous twice a day [Active]; levothyroxine 75 mcg tab 1 tab once daily [Active]; lisinopril 40 mg Oral tab once daily [Active]; Novolog 30 units Sub-Q three times a day [Active]; - PMHx: 23:04 ADD/ADHD; Diabetes - IDDM; GERD; Gout; High Cholesterol; Hydrocele Left Testicle; ca1 Hypertension; Hypothyroidism; Migraines; Paraplegia; Renal Disease; Spinal Stroke; - Immunization history:: Adult Immunizations up to date. - Social history:: Smoking status: Patient denies any tobacco usage or history of. Screenin/07 00:24 Abuse screen: Denies threats or abuse. Nutritional screening: No deficits noted. ea Tuberculosis screening: No symptoms or risk factors identified. Fall Risk None identified. Assessment: 07/12 23:00 General: Appears in no apparent distress. uncomfortable, Behavior is calm, cooperative, rr5 appropriate for age. 23:00 Pain: Complains of pain in plantar aspect of left first toe. Neuro: Level of rr5 Consciousness is awake, alert, obeys commands, Oriented to person, place, time. Cardiovascular: Capillary refill < 3 seconds Patient's skin is warm and dry. Respiratory: Airway is patent Respiratory effort is even, unlabored, Respiratory pattern is regular, symmetrical. Derm: Wound noted plantar aspect of left first toe Wound is blister. Musculoskeletal: paraplegic. 07/13 00:00 Reassessment: Patient appears in no apparent distress at this time. Patient is alert, rr5 oriented x 3, equal unlabored respirations, skin warm/dry/pink. 00:56 Reassessment: Patient appears in no apparent distress at this time. Patient is alert, rr5 oriented x 3, equal unlabored respirations, skin warm/dry/pink. discharge instruction given and explained without complaints made. Vital Signs: 07/12 23:04 BP 158 / 98; Pulse 96; Resp 18; Temp 98.8; Pulse Ox 96% on R/A; Weight 106.59 kg; ca1 Height 5 ft. 8 in. (172.72 cm); Pain 8/10; 07/13 00:00 BP 155 / 95; Pulse 95; Resp 17; Pulse Ox 98% ; rr5 00:58 BP 142 / 85; Pulse 90; Resp 17; Pulse Ox 98% ; rr5 07/12 23:04 Body Mass Index 35.73 (106.59 kg, 172.72 cm) ca1 ED Course: 07/12 22:31 Patient arrived in ED. am4 23:03 Triage completed. ca1 23:06 Arm band placed on right wrist. ca1 23:07 Fernandez, Tunde, RN is Primary Nurse. rr5 23:12 Hank Malone PA is PHCP. cp 23:12 Jasbir Willis MD is Attending Physician. cp 07/13 00:20 Wound culture swab sent to lab. rr5 00:25 Patient has correct armband on for positive identification. Bed in low position. Call ea light in reach. 00:40 Wound care: to blister located on plantar aspect of left first toe was cleaned with rr5 Hibiclens, irrigated with normal saline, dressed with Neosporin, 4X4s, Patient tolerated well. 00:40 No provider procedures requiring assistance completed. Patient did not have IV access rr5 during this emergency room visit. 01:11 XRAY Foot LEFT 3 View In Process Unspecified. EDMS Administered Medications: No medications were administered Outcome: 00:43 Discharge ordered by MD. cp 00:59 Discharged to home via wheelchair, with family. rr5 00:59 Condition: stable 00:59 Discharge instructions given to patient, family, Instructed on discharge instructions, follow up and referral plans. medication usage, Demonstrated understanding of instructions, follow-up care, medications, Prescriptions given X 1. 01:00 Patient left the ED. rr5 Signatures: Dispatcher [employer] EDMS Hank Malone PA PA cp Antunez, Elena, RN RN ea Roque, Raymond, RN RN rr5 Kathy Beck RN RN ca1 Cathy Schmitz am4 Corrections: (The following items were deleted from the chart) 01:03 00:40 Wound care: to blister located on plantar aspect of right first toe was cleaned rr5 with Hibiclens, irrigated with normal saline, dressed with Neosporin, 4X4s, Patient tolerated well. rr5
--- NOTE | 2020-07-13 00:43 | EDPHYS ---
Physician Documentation [facility] Name: Ramirez Chaudhari Age: 55 yrs Sex: Male : 1965 Arrival Date: 07/12/2020 Time: 22:31 Bed 13 Private MD: ED Physician Jasbir Willis HPI: 07/12 23:30 This 55 yrs old Male presents to ER via Wheelchair with complaints of Foot cp Injury. 23:30 The patient presents with swelling. The complaints affect the plantar aspect of left cp first toe. Context: resulted from an unknown cause, uses wheelchair. Onset: The symptoms/episode began/occurred today. Associated signs and symptoms: Pertinent negatives fever. Treatment prior to arrival includes: patient reports draining blister on plantar surface of left great toe. Severity of symptoms: in the emergency department the symptoms are unchanged, despite home interventions. Historical: - Allergies: 23:04 Ibuprofen; ca1 23:04 metformin; ca1 - Home Meds: 23:04 Colcrys 0.6 mg Oral tab 1 tab bid prn gout [Active]; furosemide 40 mg Oral tab 1 tab ca1 once daily [Active]; Levemir 46 units subcutaneous twice a day [Active]; levothyroxine 75 mcg tab 1 tab once daily [Active]; lisinopril 40 mg Oral tab once daily [Active]; Novolog 30 units Sub-Q three times a day [Active]; - PMHx: 23:04 ADD/ADHD; Diabetes - IDDM; GERD; Gout; High Cholesterol; Hydrocele Left Testicle; ca1 Hypertension; Hypothyroidism; Migraines; Paraplegia; Renal Disease; Spinal Stroke; - Immunization history:: Adult Immunizations up to date. - Social history:: Smoking status: Patient denies any tobacco usage or history of. ROS: 23:35 Skin: Positive for blister plantar surface of left great toe, Negative for rash. cp 23:35 Constitutional: Negative for body aches, chills, fever. cp 23:35 Cardiovascular: Negative for chest pain. 23:35 Respiratory: Negative for cough, shortness of breath, wheezing. 23:35 Abdomen/GI: Negative for abdominal pain, nausea, vomiting, and diarrhea. 23:35 All other systems are negative. Exam: 23:40 Constitutional: The patient appears in no acute distress, alert, awake, non-toxic, well cp developed, well nourished. 23:40 Head/Face: Normocephalic, atraumatic. cp 23:40 Chest/axilla: Inspection: normal. 23:40 Cardiovascular: Rate: normal. 23:40 Respiratory: the patient does not display signs of respiratory distress, Respirations: normal, no use of accessory muscles, labored breathing, is not present. 23:40 Skin: noted large blister located plantar surface of left great toe containing straw colored fluids. Mild erythema noted to left great toe. Vital Signs: 23:04 BP 158 / 98; Pulse 96; Resp 18; Temp 98.8; Pulse Ox 96% on R/A; Weight 106.59 kg; ca1 Height 5 ft. 8 in. (172.72 cm); Pain 8/10; 07/13 00:00 BP 155 / 95; Pulse 95; Resp 17; Pulse Ox 98% ; rr5 00:58 BP 142 / 85; Pulse 90; Resp 17; Pulse Ox 98% ; rr5 07/12 23:04 Body Mass Index 35.73 (106.59 kg, 172.72 cm) ca1 MDM: 07/12 23:23 Patient medically screened. cp 23:30 Differential diagnosis: closed fracture, contusion, cellulitis, abscess. cp 07/13 00:40 Test interpretation: by ED physician or midlevel provider: xrays of left foot negative cp for fracture. 00:42 Data reviewed: vital signs, nurses notes, radiologic studies, plain films. Counseling: cp I had a detailed discussion with the patient and/or guardian regarding: the historical points, exam findings, and any diagnostic results supporting the discharge/admit diagnosis, radiology results, the need for outpatient follow up, a logistics solution manager, to return to the emergency department if symptoms worsen or persist or if there are any questions or concerns that arise at home. 07/13 00:01 Order name: Wound Culture cp 07/13 00:01 Order name: XRAY Foot LEFT 3 View cp 07/13 00:40 Order name: Wound dressing; Complete Time: 00:42 cp Administered Medications: No medications were administered Disposition: 01:05 Chart complete. cp 06:35 Co-signature as Attending Physician, Jasbir Willis MD. mh7 Disposition: 07/13/20 00:43 Discharged to Home. Impression: Blister (nonthermal) of toe - left great toe. - Condition is Stable. - Discharge Instructions: Blisters, Adult. - Prescriptions for Doxycycline Hyclate 100 mg Oral Tablet - take 1 tablet by ORAL route every 12 hours; 20 tablet. - Medication Reconciliation Form, Thank You Letter, Antibiotic Education, Prescription Opioid Use form. - Follow up: Private Physician; When: 1 - 2 days; Reason: Recheck today's complaints. - Problem is new. - Symptoms have improved. Signatures: Dispatcher [employer] EDMS Hank Malone PA PA cp Tunde Fernandez RN RN rr5 Kathy Beck RN RN ca1 Jasbir Willis MD MD mh7 Corrections: (The following items were deleted from the chart) 01:00 00:43 07/13/2020 00:43 Discharged to Home. Impression: Blister (nonthermal) of toe - rr5 left great toe. Condition is Stable. Forms are Medication Reconciliation Form, Thank You Letter, Antibiotic Education, Prescription Opioid Use. Follow up: Private Physician; When: 1 - 2 days; Reason: Recheck today's complaints. Problem is new. Symptoms have improved. cp
[2020-07-13 01:18] VITALS: O2SAT 98
[2020-07-13 01:20] VITALS: TEMP 98.8
[2020-07-13 01:21] VITALS: BP 142/85
--- NOTE | 2020-07-13 08:05 | RAD REPORT ---
EXAM DESCRIPTION: RAD - Foot Left 3 View - 07/13/2020 1:11 am CLINICAL HISTORY: Left Foot pain and swelling FINDINGS: No fracture or dislocation is seen. Cortical irregularity involves the first metatarsal head. This may indicate osteomyelitis and should be correlated clinically. Narrowing of the first MTP joint is seen with subchondral sclerosis and osteophytes. The bones are osteoporotic
== END 2020-07-13 01:00 | disposition home or self-care (01) ==
LOC: ER 22:22
DX: S90.422A Blister (nonthermal), left great toe, initial encounter (principal); I10 Essential (primary) hypertension; E11.9 Type 2 diabetes mellitus without complications; Z79.4 Long term (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; Z88.6 Allergy status to analgesic agent; Z88.8 Allergy status to other drugs, medicaments and biological substances
CPT/HCPCS: 87070; 87205; 99284

== ENCOUNTER 2021-01-15 16:39 | Inpatient (IN) | payer OTHER ==
[2021-01-15] MEDS ORDERED: ONDANSETRON 4 MG/2 ML VIAL ONE (18:26)
[2021-01-15] MEDS ORDERED: MECLIZINE HCL 12.5 MG TAB ONE (18:26)
[2021-01-15 18:33] LABS: Urine Blood 1+ (Negative); Urine Glucose 3+ (Negative); Urine Protein 2+ (Negative); Urine Specific Gravity 1.015 (1.005-1.030)
--- NOTE | 2021-01-15 19:12 | RAD REPORT ---
EXAM DESCRIPTION: CT - Head C Spine Cap Wo Con - 01/15/2021 6:43 pm CLINICAL HISTORY: fallhead, neck, chest and abdomen pain COMPARISON: No comparisons TECHNIQUE: Axial [address] head images were obtained. Axial [address] cervical spine images were obtain ed with sagittal and coronal reconstruction images reviewed. Axial 5 mm images of the chest, abdomen and pelvis were obtained. All CT scans are performed using dose optimization technique as appropriate and may include automated exposure control or mA/KV adjustment according to patient size. FINDINGS: No intracranial hemorrhage, mass or edema. No midline shift or abnormal fluid collection. No large scalp hematoma identified. Chronic sphenoid sinusitis present. No skull fracture. Cervical bodies are normal in height and alignment. No fracture or acute bone finding.No disk space n arrowing.No prevertebral soft tissue thickening or paraspinal mass.Central canal detail is inherently limited on CT imaging. CT chest shows no pneumothorax, pulmonary contusion or pleural fluid collection. No mediastinal hem atoma and the aorta and pulmonary arteries are unremarkable. No chest will mass or abnormal axillary finding. No acute bone finding. Posterior decompression surgical changes are evident in the T9-T12 re gion. Lower lumbar and SI joint degenerative changes are present. No displaced rib fracture or acute rib finding identified. CT abdomen and pelvis show no injury to solid abdominal viscera. Gallbladder and biliary tree are unr emarkable. No bowel injury or significant finding. No free air, free fluid or abnormal stranding. No hernia, mass or bulky lymphadenopathy. No urinary bladder abnormality. IMPRESSION: No significant CT Head finding. No significant CT cervical spine finding. No significant CT Chest finding. No significant CT Abdomen and Pelvis finding.
[2021-01-15 19:17] LABS: Absolute Lymphocytes (CBC) 1.6 K/uL (0.7-4.9); Basophils % 0.7 % (0-1.3); Hematocrit 42.6 % (39.6-49.0); Lymphocytes % 30.1 % (15.3-44.8); MPV 11.3 fL (7.6-11.3); RBC Red Blood Cell Count 4.97 M/uL (4.33-5.43)
[2021-01-15 19:29] LABS: Protime INR 0.95
[2021-01-15 19:44] LABS: ALT/SGPT 46 U/L (12-78); AST/SGOT 22 U/L (15-37); Albumin 3.2 g/dL (3.4-5.0); Alkaline Phosphatase 131 U/L (45-117); BUN Blood Urea Nitrogen 22 mg/dL (7-18); Bicarbonate 25 mmol/L (21-32); Bilirubin Direct 0.2 mg/dL (0-0.2); Bilirubin Total 0.5 mg/dL (0.2-1.0); Glucose Level 338 mg/dL (74-106); Magnesium 2.1 mg/dL (1.8-2.4); NT PRO-BNP 52 pg/mL (<125); Sodium Level 136 mmol/L (136-145); Troponin (Emerg Dept Use Only) < 0.02 ng/mL (0.0-0.045)
--- NOTE | 2021-01-15 20:51 | ER ---
Nurse's Notes [facility] Name: Ramirez Chaudhari Age: 55 yrs Sex: Male : 1965 Arrival Date: 01/15/2021 Time: 17:08 Bed 28 Private MD: Diagnosis: Dizziness and giddiness;UTI/ Urinary tract infection, site not specified Presentation: 01/15 17:08 Chief complaint: EMS states: FALL FROM SEATED POSITION IN W/C. Coronavirus screen: At bp this time, the client does not indicate any symptoms associated with coronavirus-19. Ebola Screen: No symptoms or risks identified at this time. Initial Sepsis Screen: Does the patient meet any 2 criteria? No. Patient's initial sepsis screen is negative. Does the patient have a suspected source of infection? No. Patient's initial sepsis screen is negative. Risk Assessment: Do you want to hurt yourself or someone else? Patient reports no desire to harm self or others. Onset of symptoms was January 15, 2021 at 15:30. Care prior to arrival: IV initiated. 20 GA, in the right forearm, Glucose check: 393. 17:08 Method Of Arrival: EMS: [facility] bp 17:08 Acuity: NOHEMI 3 bp Triage Assessment: 17:08 General: Appears in no apparent distress. uncomfortable, obese, Behavior is calm, bp cooperative. Pain: Complains of pain in head and back of neck. EENT: No signs and/or symptoms were reported regarding the EENT system. Neuro: Level of Consciousness is awake, alert, obeys commands, Oriented to person, place, time, situation. Cardiovascular: No deficits noted. Respiratory: Airway is patent Respiratory effort is even, unlabored, Respiratory pattern is regular, symmetrical. GI: No signs and/or symptoms were reported involving the gastrointestinal system. : No signs and/or symptoms were reported regarding the genitourinary system. Derm: No deficits noted. Musculoskeletal: PARAPLEGIA AT BASELINE. Historical: - Allergies: 17:08 Ibuprofen; bp 17:08 metformin; bp - Home Meds: 18:41 Novolog 30 units Sub-Q three times a day [Active]; Colcrys 0.6 mg Oral tab 1 tab bid bp prn gout [Active]; lisinopril 40 mg Oral tab once daily [Active]; atorvastatin 40 mg oral tab 1 tab once daily [Active]; furosemide 40 mg Oral tab 1 tab once daily [Active]; levothyroxine 75 mcg tab 1 tab once daily [Active]; Levemir 46 units subcutaneous twice a day [Active]; - PMHx: 17:08 Hypertension; Diabetes - IDDM; Spinal Stroke; ADD/ADHD; GERD; Gout; High Cholesterol; bp Hydrocele Left Testicle; Hypothyroidism; Migraines; Paraplegia; Renal Disease; - Immunization history:: Adult Immunizations unknown. - Social history:: Smoking status: unknown. Screenin:08 Abuse screen: Denies threats or abuse. Denies injuries from another. Nutritional bp screening: No deficits noted. Tuberculosis screening: No symptoms or risk factors identified. Fall Risk None identified. Assessment: 17:08 General: SEE TRIAGE NOTE. bp 22:30 Reassessment: Pt and family member updated on POC. Pt will remain in the ED but dc2 transfer to a hospital bed and to a different part of the hospital. Both voice understanding. 22:43 Reassessment: Pt eating , will transfer when finished eating. dc2 Vital Signs: 17:08 BP 152 / 90; Pulse 68; Resp 20; Temp 97.7; Pulse Ox 97% ; bp 18:00 BP 167 / 98; Pulse 69; Resp 19; Pulse Ox 98% ; bp 19:30 BP 152 / 89; Pulse 78; Resp 18; Temp 98.0(O); Pulse Ox 100% on R/A; Pain 6/10; dc2 ED Course: 17:08 Patient arrived in ED. em1 17:08 Arm band placed on. bp 17:08 Patient has correct armband on for positive identification. Bed in low position. Call bp light in reach. Side rails up X2. 17:08 Maintain EMS IV. Dressing intact. Good blood return noted. Site clean \T\ dry. Gauge \T\ bp site: 20 GAUGE R FA. 17:12 Rupesh Moyer, NORBERTO is Primary Nurse. bp 17:13 Florin Danielle PA is PHCP. jmm 17:13 Parth Amato MD is Attending Physician. jmm 18:05 Triage completed. bp 18:43 CT Traumagram (Head C Spine CAP wo con) In Process Unspecified. EDMS 20:00 No apparent distress. Resting quietly. Awaiting lab results, Awaiting radiology results.dc2 20:00 Patient has correct armband on for positive identification. Bed in low position. Call dc2 light in reach. Side rails up X2. Adult w/ patient. ekg monitor tech on. Pulse ox on. NIBP on. Door closed. 20:44 Nurse Practitioner and/or Physician Casting Associate to see patient. dc2 20:50 Mike Orellana DO is Hospitalizing Provider. [facility] 20:57 No provider procedures requiring assistance completed. dc2 20:57 IV Flushed right forearm. dc2 21:10 Admitting physician to see patient. dc2 22:30 Patient admitted, IV remains in place. intact. dc2 Administered Medications: 18:20 Drug: Meclizine 25 mg Route: PO; bp 19:01 Follow up: Response: No adverse reaction bp 18:20 Drug: Zofran (Ondansetron) 4 mg Route: IVP; Site: right forearm; bp 19:00 Follow up: Response: No adverse reaction bp 21:17 Drug: NS 0.9% 500 ml Route: IV; Rate: bolus; Infused Over: 1 hrs; Site: right forearm; dc2 Delivery: Primary tubing; 22:15 Follow up: IV Status: Completed infusion; IV Intake: 500ml dc2 23:27 Not Given (pt moved to ER hold with new orders.): NS 0.9% 1000 ml IV at 100 ml/hr dc2 continuous Intake: 22:15 IV: 500ml; Total: 500ml. dc2 Outcome: 20:51 Decision to Hospitalize by Provider. [facility] 01/16 13:12 Patient left the ED. Signatures: Dispatcher [employer] EDMS Florin Danielle PA PA jmm Martinez, Eric em1 Autumn Marroquin RN RN ss Rupesh Moyer RN RN bp Kayleigh, Lizzette RN RN dc2 Corrections: (The following items were deleted from the chart) 01/15 18:09 18:09 Arm band placed on bp bp 18:13 18:09 General: SEE TRIAGE NOTE. bp bp
--- NOTE | 2021-01-15 20:51 | EDPHYS ---
Physician Documentation [facility] Name: Ramirez Chaudhari Age: 55 yrs Sex: Male : 1965 Arrival Date: 01/15/2021 Time: 17:08 Bed 28 Private MD: ED Physician Parth Amato HPI: 01/15 18:11 This 55 yrs old Male presents to ER via EMS with complaints of Fall Injury. jmm 18:11 Details of fall: The patient fell from an upright position. Onset: The symptoms/episode jmm began/occurred acutely. Associated injuries: The patient sustained no obvious injury. This is a 55-year-old male with history of hypertension, diabetes mellitus, paraplegia the presents emerged part with complaints of dizziness which is acute onset. Patient complained of acute onset dizziness and fell out of his wheelchair. . Historical: - Allergies: 17:08 Ibuprofen; bp 17:08 metformin; bp - Home Meds: 18:41 Novolog 30 units Sub-Q three times a day [Active]; Colcrys 0.6 mg Oral tab 1 tab bid bp prn gout [Active]; lisinopril 40 mg Oral tab once daily [Active]; atorvastatin 40 mg oral tab 1 tab once daily [Active]; furosemide 40 mg Oral tab 1 tab once daily [Active]; levothyroxine 75 mcg tab 1 tab once daily [Active]; Levemir 46 units subcutaneous twice a day [Active]; - PMHx: 17:08 Hypertension; Diabetes - IDDM; Spinal Stroke; ADD/ADHD; GERD; Gout; High Cholesterol; bp Hydrocele Left Testicle; Hypothyroidism; Migraines; Paraplegia; Renal Disease; - Immunization history:: Adult Immunizations unknown. - Social history:: Smoking status: unknown. ROS: 18:11 Constitutional: Negative for fever, chills, and weight loss, Cardiovascular: Negative jmm for chest pain, palpitations, and edema, Respiratory: Negative for shortness of breath, cough, wheezing, and pleuritic chest pain. 18:11 Neuro: Positive for dizziness. 18:11 All other systems are negative. Exam: 18:11 Constitutional: This is a well developed, well nourished patient who is awake, alert, jmm and in no acute distress. Head/Face: atraumatic. Eyes: EOMI, no conjunctival erythema appreciated ENT: Moist Mucus Membranes Neck: Trachea midline, Supple Chest/axilla: Normal chest wall appearance and motion. Cardiovascular: Regular rate and rhythm. No edema appreciated Respiratory: Normal respirations, no respiratory distress appreciated Abdomen/GI: Non distended, soft Back: Normal ROM Skin: General appearance color normal 18:11 Musculoskeletal/extremity: ROM: intact in all extremities. Vital Signs: 17:08 BP 152 / 90; Pulse 68; Resp 20; Temp 97.7; Pulse Ox 97% ; bp 18:00 BP 167 / 98; Pulse 69; Resp 19; Pulse Ox 98% ; bp 19:30 BP 152 / 89; Pulse 78; Resp 18; Temp 98.0(O); Pulse Ox 100% on R/A; Pain 6/10; dc2 MDM: 18:11 Patient medically screened. [facility] 20:50 Data reviewed: vital signs, nurses notes. Counseling: I had a detailed discussion with korina the patient and/or guardian regarding: the historical points, exam findings, and any diagnostic results supporting the discharge/admit diagnosis, lab results, radiology results, the need for further work-up and treatment in the hospital. ED course: I discussed the patient with James Thomas whom accepted the patient to Dr. Reyna harrison. . 01/15 18:12 Order name: Basic Metabolic Panel; Complete Time: 20:01 [facility] 01/15 18:12 Order name: CBC with Diff; Complete Time: 20:01 [facility] 01/15 18:12 Order name: LFT's; Complete Time: 20:01 [facility] 01/15 18:12 Order name: Magnesium; Complete Time: 20:01 [facility] 01/15 18:12 Order name: NT PRO-BNP; Complete Time: 20:01 [facility] 01/15 18:12 Order name: PT-INR; Complete Time: 20:01 [facility] 01/15 18:12 Order name: Troponin (emerg Dept Use Only); Complete Time: 20:01 [facility] 01/15 18:12 Order name: Urine Culture [facility] 01/15 18:12 Order name: Procalcitonin; Complete Time: 20:02 [facility] 01/15 18:12 Order name: Lactate; Complete Time: 20:01 [facility] 01/15 18:12 Order name: Blood Culture Adult (2) [facility] 01/15 18:34 Order name: Urine Dipstick-Ancillary; Complete Time: 18:41 [facility] 01/15 20:51 Order name: COVID-19 SARS RT PCR (Document "Date of Onset" if Symptomatic); Complete la1 Time: 22:02 01/15 20:52 Order name: Urine Microscopic Only; Complete Time: 21:45 [facility] 01/15 18:12 Order name: CT Traumagram (Head C Spine CAP wo con); Complete Time: 19:19 [facility] 01/16 02:19 Order name: CBC with Automated Diff [facility] 01/16 02:27 Order name: Troponin I [facility] 01/16 02:38 Order name: Comprehensive Metabolic Panel [facility] 01/16 02:38 Order name: Lipid Profile [facility] 01/16 02:38 Order name: T4 Free [facility] 01/16 02:38 Order name: Thyroid Stimulating Hormone [facility] 01/16 04:12 Order name: Urinalysis [facility] 01/16 04:38 Order name: Urine Microscopic Only [facility] 01/16 07:16 Order name: US [facility] 01/16 08:39 Order name: Glucose, Ancillary Testing [facility] 01/16 08:40 Order name: MRI [facility] 01/16 08:41 Order name: MRI [facility] 01/16 09:04 Order name: Hemoglobin A1c [facility] 01/16 09:53 Order name: Troponin I [facility] 01/16 11:59 Order name: Glucose, Ancillary Testing [facility] 01/15 18:12 Order name: EKG; Complete Time: 18:13 [facility] 01/15 18:12 Order name: Cardiac monitoring; Complete Time: 18:15 [facility] 01/15 18:12 Order name: O2 Per Protocol; Complete Time: 18:15 [facility] 01/15 18:12 Order name: O2 Sat Monitoring; Complete Time: 18:15 [facility] 01/15 18:12 Order name: Urine Dipstick-Ancillary (obtain specimen); Complete Time: 19:01 [facility] 01/16 08:44 Order name: MRI [facility] Administered Medications: 18:20 Drug: Meclizine 25 mg Route: PO; bp 19:01 Follow up: Response: No adverse reaction bp 18:20 Drug: Zofran (Ondansetron) 4 mg Route: IVP; Site: right forearm; bp 19:00 Follow up: Response: No adverse reaction bp 21:17 Drug: NS 0.9% 500 ml Route: IV; Rate: bolus; Infused Over: 1 hrs; Site: right forearm; dc2 Delivery: Primary tubing; 22:15 Follow up: IV Status: Completed infusion; IV Intake: 500ml dc2 23:27 Not Given (pt moved to ER hold with new orders.): NS 0.9% 1000 ml IV at 100 ml/hr dc2 continuous Disposition Summary: 01/15/21 20:51 Hospitalization Ordered Hospitalization Status: Observation [facility] Provider: Mike Orellana Condition: Stable jmm Problem: new jmm Symptoms: have improved jmm Bed/Room Type: Standard [facility] Location: Telemetry/MedSurg (observation)(01/16/21 11:28) [facility] Room Assignment: 229(01/16/21 11:28) [facility] Diagnosis - Dizziness and giddiness jmm - UTI/ Urinary tract infection, site not specified [facility] Forms: - Medication Reconciliation Form [facility] - SBAR form [facility] Addendum: 01/18/2021 19:09 Co-signature as Attending Physician, Parth Amato MD. p jesi Signatures: Dispatcher [employer] EDMS Carly Lynn RN Parth Tripp MD MD pkl Mickail, Joel, PA PA [facility] James Thomas, DORMITORY COUNSELOR-C DORMITORY COUNSELOR-Cla1 Manuel Landin, RN RN rich Rupesh Moyer, RN RN bp Kayleigh, Lizzette, RN RN dc2 Corrections: (The following items were deleted from the chart) 01/15 22: 20:51 Telemetry/MedSurg (observation) [facility] : 20:51 [facility] 01/16 11:28 01/15 22:07 [facility] ER HOLD [facility] 01/16 11:01/15 22:07 ERHOLD- [facility]
[2021-01-15] MEDS ORDERED: INSULIN -REGULAR HUMAN 50 UNIT/0.5 ML ML ONE (21:14)
[2021-01-15] MEDS ORDERED: NA CHLORIDE 0.9% 2,000 ML ONE (21:15)
--- NOTE | 2021-01-15 21:35 | P.HP ---
Certification for Inpatient Patient admitted to: Observation With expected LOS: <2 Midnights Patient will require the following post-hospital care: None Practitioner: I am a practitioner with admitting privileges, knowledge of patient current condition, hospital course, and medical plan of care. Services: Services provided to patient in accordance with Admission requirements found in Title 42 Section 412.3 of the Code of Federal Regulations Patient History Date of Service: 01/15/21 Primary Care Provider: Dr. Powers Reason for admission: Dizziness, syncope History of Present Illness: 55-year-old male with history of paraplegia secondary to spinal stroke, diabetes mellitus type 2, hypertension, hyperlipidemia, gout, CKD 3 presents the emergency department for dizziness, syncope. Patient was at home alone in his wheelchair around 1500 today when he began to experience sudden severe dizziness, patient then fell out of wheelchair face first. Patient denies recollection of the events surrounding injury other than this suspect syncope with loss of consciousness. Patient was evaluated in the emergency department labs were significant for GFR 70 glucose 338 BUN 22 procalcitonin 0.07 urinalysis nitrite positive trace leukoesterase microscopic analysis pending Covid test pending CT head C-spine chest abdomen pelvis demonstrated no significant acute findings. Patient still with persistent dizziness after receiving 25 mg of meclizine, ED provider is to admit under observation for further evaluation of dizziness/syncope. Allergies metformin Adverse Reaction (Severe, Verified 02/06/20 12:27) kidney damage ibuprofen Adverse Reaction (Verified 02/06/20 12:27) seecom stitches Adverse Reaction (Mild, Uncoded 02/06/20 12:27) Rash Home Medications: Colchicine 0.6 mg PO BID PRN 11/21/18 Furosemide [Lasix] 40 mg PO DAILY 11/21/18 Insulin Aspart [Novolog Flexpen] 30 units SQ TID 11/21/18 Insulin Detemir [Levemir Flextouch] 46 units SQ BID 11/21/18 Levothyroxine [Synthroid*] 75 mcg PO DAILY 11/21/18 lisinopriL [Lisinopril] 40 mg PO DAILY 11/21/18 Aspirin [Aspirin EC 81 MG] 81 mg PO DAILY 02/06/20 Fenofibrate 160 mg PO DAILY 02/06/20 Simethicone [[place]] 125 mg PO PRN PRN 02/06/20 Amoxicillin/Potassium Clav [Augmentin 875-125 Tablet] 1 each PO Q12H #14 tablet 03/12/20 Collagenase [Santyl Ointment*] 1 appl TOP DAILY #1 tube 03/12/20 - Past Medical/Surgical History Diabetic: Yes -: Diabetes mellitus type 2 -: HTN -: Gout -: Hyperlipidemia -: Hypothyroidism -: Paraplegic secondary to spinal stroke 2013 -: GERD -: CAD -: GERD, CKD 3 -: Memory Loss (non active) -: Crohn's Disease (non active) -: spinal surgery -: 2 hydroceles -: Fistula repair -: Incomplete spinal stroke Psychosocial/ Personal History: Patient is disabled, lives at home with his spouse - Family History Mother -: Hypertension, Diabetes, Stroke Notes: with gangrene leg - Social History Smoking Status: Never smoker Alcohol use: No CD- Drugs: No Caffeine use: Yes Place of Residence: Home Review of Systems 10-point ROS is otherwise unremarkable Neurological: Other (Dizziness, syncope) Physical Examination - Physical Exam General: Alert, In no apparent distress, Oriented x3 HEENT: Atraumatic, PERRLA, Mucous membr. moist/pink, EOMI, Sclerae nonicteric Neck: Supple, 2+ carotid pulse no bruit, No LAD, Without JVD or thyroid abnormality Respiratory: Clear to auscultation bilaterally, Normal air movement Cardiovascular: Regular rate/rhythm, Normal S1 S2 Gastrointestinal: Normal bowel sounds, No tenderness Musculoskeletal: No tenderness, Other (Previous spinal stroke, unable to move lower extremities below the knees) Integumentary: No rashes Neurological: Normal speech, Normal tone, Normal affect Lymphatics: No axilla or inguinal lymphadenopathy - Studies Laboratory Data (last 24 hrs) 01/15/21 19:00: PT 10.9, INR 0.95 01/15/21 19:00: WBC 5.20, Hgb 14.3, Hct 42.6, Plt Count 131 L 01/15/21 19:00: Sodium 136, Potassium 4.0, BUN 22 H, Creatinine 1.10, Glucose 338 H, Magnesium 2.1, Total Bilirubin 0.5, AST 22, ALT 46, Alkaline Phosphatase 131 H Assessment and Plan - Plan Assessment: Dizziness and giddiness, syncope Diabetes mellitus type 2 with hyperglycemia Hypertension Hyperlipidemia Hypothyroidism Gout CKD 3 History of spinal stroke with paraplegia Plan: Dizziness and giddiness, syncope: Patient still with significant dizziness, CT head unremarkable. Will obtain carotid ultrasound, MRI stroke protocol, echocardiogram. As needed meclizine. Diabetes mellitus type 2 with hyperglycemia: Patient reports recent A1c a couple weeks ago with level around 11. Patient on Levemir 46 units subcu twice daily, have initiated Lantus 35 units twice daily during hospitalization with sliding scale. Hypertension: Obtain and continue home medications Hyperlipidemia: Obtain and continue home medications Hypothyroidism: Obtain and continue home medications Gout:Obtain and continue home medications CKD 3: Stable from previous, will provide fluids overnight as patient will require contrast studies morning. History of spinal stroke with paraplegia: Appears stable this time. DVT PPX: Heparin Code status: Full Discharge Plan: Home Plan to discharge in: 24 Hours - Advance Directives Does patient have a Living Will: No Does patient have a Durable POA for Healthcare: No - Code Status/Comfort Care Code Status Assessed: Yes (Full code) Critical Care: No Time Spent Managing Pts Care (In Minutes): 55
[2021-01-15 21:43] LABS: Urine Bacteria LOADED /HPF (NONE SEEN); Urine RBC NONE SEEN /HPF (NONE SEEN)
[2021-01-15] MEDS ORDERED: MECLIZINE HCL 12.5 MG TAB PO PRN (23:42)
[2021-01-15] MEDS ORDERED: ONDANSETRON 4 MG/2 ML VIAL IV PRN (23:42)
[2021-01-15] MEDS ORDERED: D50W 25 GM/50 ML SYRINGE IV PRN (23:42)
[2021-01-15] MEDS ORDERED: GLUCAGON 1 MG/VIAL IM PRN (23:42)
[2021-01-15] MEDS: NA CHLORIDE 0.9% 1,000 ML IV SCH (23:55)
[2021-01-16 01:01] VITALS: BMI 34.9
[2021-01-16] MEDS ORDERED: Meropenem 500 MG VIAL IV ONE (01:06)
[2021-01-16] MEDS ORDERED: NA CHLORIDE 0.9% 100 ML ONE (01:06)
[2021-01-16] MEDS: Meropenem 500 MG/100 ML BAG IV SCH ×2 (01:15→08:56)
[2021-01-16] MEDS ORDERED: ACETAMINOPHEN 500 MG TAB ONE (01:16)
[2021-01-16] MEDS: ACETAMINOPHEN 500 MG TAB PO PRN (01:18)
[2021-01-16 02:14] LABS: Absolute Lymphocytes (CBC) 1.8 K/uL (0.7-4.9); Basophils % 0.6 % (0-1.3); Hematocrit 40.5 % (39.6-49.0); Lymphocytes % 28.6 % (15.3-44.8); MPV 10.8 fL (7.6-11.3); RBC Red Blood Cell Count 4.72 M/uL (4.33-5.43)
[2021-01-16 02:32] LABS: Albumin 2.9 g/dL (3.4-5.0); Bilirubin Total 0.4 mg/dL (0.2-1.0); Potassium 4.2 mmol/L (3.5-5.1); Protein, Total 6.5 g/dL (6.4-8.2); Thyroid Stimulating Hormone 2.37 uIU/mL (0.360-3.740)
[2021-01-16 04:10] LABS: Urine Appearance CLOUDY (Clear); Urine Bilirubin NEGATIVE (Negative); Urine Blood 1+ (Negative); Urine Color YELLOW (Yellow); Urine Glucose 3+ (Negative); Urine Protein 2+ (Negative); Urine Specific Gravity 1.015 (1.005-1.030); Urine pH 6.5 (5.0-7.0)
[2021-01-16 04:12] LABS: Urine Microscopic Reflex ORDER UMIC
[2021-01-16 04:37] LABS: Urine Bacteria 20-50 /HPF (NONE SEEN); Urine RBC <5 /HPF (NONE SEEN)
--- NOTE | 2021-01-16 05:52 | P.PN ---
Subjective Date of Service: 01/16/21 Primary Care Provider: Dr. Powers Chief Complaint: Dizziness, syncope Subjective: Improving (Less dizziness noted. Patient appears to be at his baseline level.) Physical Examination - Vital Signs Temperature: 98.5 F Blood Pressure: 152/89 Pulse: 73 Respirations: 18 Pulse Ox (%): 96 - Studies Laboratory Data (last 24 hrs) 01/15/21 19:00: PT 10.9, INR 0.95 01/15/21 19:00: WBC 5.20, Hgb 14.3, Hct 42.6, Plt Count 131 L 01/15/21 19:00: Sodium 136, Potassium 4.0, BUN 22 H, Creatinine 1.10, Glucose 338 H, Magnesium 2.1, Total Bilirubin 0.5, AST 22, ALT 46, Alkaline Phosphatase 131 H Assessment & Plan Discharge Plan: Home Plan to discharge in: Greater than 2 days Physician Review Additional Text: COVID: negative CT Scan Head/Neck/Chest/Ab/Pelvis: COMPARISON: No comparisons TECHNIQUE: Axial [address] head images were obtained. Axial [address] cervical spine images were obtained with sagittal and coronal reconstruction images reviewed. Axial 5 mm images of the chest, abdomen and pelvis were obtained. All CT scans are performed using dose optimization technique as appropriate and may include automated exposure control or mA/KV adjustment according to patient size. FINDINGS: No intracranial hemorrhage, mass or edema. No midline shift or abnormal fluid collection. No large scalp hematoma identified. Chronic sphenoid sinusitis present. No skull fracture. Cervical bodies are normal in height and alignment. No fracture or acute bone finding.No disk space narrowing.No prevertebral soft tissue thickening or paraspinal mass.Central canal detail is inherently limited on CT imaging. CT chest shows no pneumothorax, pulmonary contusion or pleural fluid collection. No mediastinal hematoma and the aorta and pulmonary arteries are unremarkable. No chest will mass or abnormal axillary finding. No acute bone finding. C Java Developer ior decompression surgical changes are evident in the T9-T12 region. Lower lumbar and SI joint degenerative changes are present. No displaced rib fracture or acute rib finding identified. CT abdomen and pelvis show no injury to solid abdominal viscera. Gallbladder and biliary tree are unremarkable. No bowel injury or significant finding. No free air, free fluid or abnormal stranding. No hernia, mass or bulky lymphadenopathy. No urinary bladder abnormality. IMPRESSION: No significant CT Head finding. No significant CT cervical spine finding. No significant CT Chest finding. No significant CT Abdomen and Pelvis finding. Stroke MRI: Pending Carotid doppler: Pending ECHO: Pending Physical exam: General: Alert, In no apparent distress, Oriented x3 HEENT: Neck supple Respiratory: Clear to auscultation bilaterally, Normal air movement Cardiovascular: Regular rate/rhythm, Normal S1 S2 Gastrointestinal: Normal bowel sounds, No tenderness Musculoskeletal: No tenderness, Other (Previous spinal stroke and paraplegia below the waist, unable to move lower extremities below the knees) Integumentary: No rashes Neurological: Normal speech, Normal tone, Normal affect Lymphatics: No axilla or inguinal lymphadenopathy Impression: Syncope with dizziness UTI complicated with history of drug-resistant bacteria and chronic Valera catheter Diabetes mellitus type 2 with hyperglycemia Hypertension Hyperlipidemia Hypothyroidism Gout Acute on chronic renal disease stage III History of spinal stroke with paraplegia Plan: Syncope with dizziness: Initial CT head unremarkable. Patient back to baseline. Continue meclizine as needed. Await MRI stroke protocol, echocardiogram and carotid Doppler. Continue aspirin, folic acid, and Lipitor. Neurology consulted for further recommendation. Physical therapy and Occupational Therapy ordered. Continue monitor and assess. This may be related to underlying UTI with history of drug-resistant bacteria. Patient remains on IV meropenem. Continue IV fluids. Will monitor and adjust appropriately. UTI complicated with history of drug-resistant bacteria and chronic Valera catheter: Valera catheter recently changed. Patient remains on IV meropenem due to his history of drug resistance in the past. Await urine culture results. Diabetes mellitus type 2 with hyperglycemia: Will obtain Hemoglobin A1c. Continue Lantus 35 units subcu twice daily. Will monitor and adjust appropriately. Hypertension: Restart lisinopril 20 mg 1 pill twice daily with parameters in place. Hyperlipidemia: Continue with Lipitor 40 mg daily Hypothyroidism: Continue with levothyroxine 150 mcg daily Gout: Obtain and verify home medication Acute on chronic renal disease stage III: Continue IV fluids. Will monitor closely. Will consult nephrology for further recommendation History of spinal stroke with paraplegia: Patient with paraplegia below the waist. Overall stable. Will order physical therapy and Occupational Therapy. DVT PPX: Heparin Code status: Full Discharge Plan: Home at discharge Time Spent Managing Pts Care (In Minutes): 55
--- NOTE | 2021-01-16 07:14 | RAD REPORT ---
EXAM DESCRIPTION: US - CP - 01/16/2021 12:26 am CLINICAL HISTORY: dizziness, syncope COMPARISON: No comparisons TECHNIQUE: Real-time sonographic evaluation of both carotid systems was performed. Doppler interroga tion was performed with waveform tracing bilaterally. FINDINGS: Normal high resistance waveforms are noted in both external carotid arteries. The common c arotid arteries and internal carotid arteries show normal low resistance waveforms. Mild soft plaque at the left carotid bulb. Peak systolic and end diastolic velocity values and the IC A/CCA ratios are in the non-hemodynamically significant range. Antegrade flow seen in both vertebral arteries. IMPRESSION: Mild soft plaque at the left carotid bulb. No evidence of a hemodynamically significant stenosis.
[2021-01-16] MEDS: INSULIN -REGULAR HUMAN 50 UNIT/0.5 ML ML SQ SCH ×4 (07:30→20:19)
--- NOTE | 2021-01-16 08:38 | RAD REPORT ---
EXAM DESCRIPTION: MRI - MRA Head Wo Cont - 01/16/2021 8:31 am CLINICAL HISTORY: dizziness, syncope CVA COMPARISON: Brain W/Wo Cont dated 11/26/2016; MRI BRAIN WITHOUT CONTRAST dated 05/05/2014; Head C Spin e Cap Wo Con dated 01/15/2021 FINDINGS: 3D noncontrast [id number] MR angiography of the [place] was performed. Opacif ied left sphenoid sinus. No aneurysm, flow-limiting stenosis or vascular malformation is seen. Forward flow seen in codominant vertebral arteries. The visualized dural venous sinuses appear patent. IMPRESSION: No significant flow abnormality of the [place] is identified. No aneurysm.
--- NOTE | 2021-01-16 08:40 | RAD REPORT ---
EXAM DESCRIPTION: MRI - MRA Neck W/Wo Cont - 01/16/2021 8:33 am CLINICAL HISTORY: dizziness, syncope COMPARISON: No comparisons FINDINGS: Contrast enhance 2D [id number] MR angiography of the neck vessels was performed. Bilateral carotid systems are widely patent. The left vertebral artery is partially obscured proximal ly. This is favored to be artifact. The vertebral arteries are codominant. IMPRESSION: No hemodynamically significant stenosis identified within the neck. Presumed artifact at the proximal left vertebral artery.
--- NOTE | 2021-01-16 08:43 | RAD REPORT ---
EXAM DESCRIPTION: MRI - Brain W/Wo Cont - 01/16/2021 8:34 am CLINICAL HISTORY: Syncope COMPARISON: 05/05/2014, head CT 01/15/2021 TECHNIQUE: Sagittal and axial T1-weighted images were obtained. Axial PD/heavily T2-weighted and T2- FLAIR images were obtained along with axial DWI/ADC mapping sequences. Axial and coronal post-contras t T1-weighted images were also obtained. FINDINGS: No intracranial hemorrhage, mass or acute infarction. There is no edema or shift of midlin e structures. No extra-axial fluid collections. Ng-matter/white matter junction is preserved. Signa l voids are seen as a normal finding in the major intracranial vessels. Post-contrast images show normal enhancement. No dural thickening. Opacified left sphenoid sinus. Mild ethmoid air cell thickening. Trace right maxillary sinus thickeni ng. IMPRESSION: No acute intracranial abnormality. No evidence of acute infarct. No abnormal enhancement .
[2021-01-16] MEDS ORDERED: HEPARIN 5000 UNIT/ML 1 ML VIAL ONE (08:51)
[2021-01-16] MEDS ORDERED: FOLIC ACID 1 MG TABLET ONE (08:52)
[2021-01-16] MEDS ORDERED: ASPIRIN EC 81 MG TAB PO ONE (08:52)
[2021-01-16] MEDS ORDERED: INSULIN GLARGINE 100 UNITS/ML SQ ONE (08:52)
[2021-01-16] MEDS ORDERED: INSULIN -REGULAR HUMAN 50 UNIT/0.5 ML ML ONE ×2 (08:53→11:55)
[2021-01-16] MEDS: ASPIRIN EC 81 MG TAB PO SCH (08:55)
[2021-01-16] MEDS: HEPARIN 5000 UNIT/ML 1 ML VIAL SQ SCH ×2 (08:55→20:34)
[2021-01-16] MEDS: INSULIN GLARGINE 100 UNITS/ML SQ SCH ×2 (08:55→20:19)
[2021-01-16] MEDS: FOLIC ACID 1 MG TABLET PO SCH (08:55)
[2021-01-16] MEDS: lisinopriL 20 MG TAB PO SCH ×2 (08:56→20:20)
[2021-01-16] MEDS ORDERED: lisinopriL 20 MG TAB ONE (08:56)
--- NOTE | 2021-01-16 11:31 | ECHO ---
HEIGHT: 5 ft 8 in WEIGHT: 230 lb 0 oz DATE OF STUDY: 01/16/[address]: James Thomas NP 2-DIMENSIONAL: YES M.MODE: YES DOPPLER: YES COLOR FLOW: YES TDS: NO PORTABLE: YES DEFINITY: NO BUBBLE STUDY: NO DIAGNOSIS: DIZZINESS, SYNCOPE CARDIAC HISTORY: CATHERIZATION: NO SURGERY: NO PROSTHETIC VALVE: NO PACEMAKER: NO MEASUREMENTS (cm) DIASTOLIC (NORMALS) SYSTOLIC (NORMALS) IVSd 1.3 (0.6-1.2) LA Diam 2.0 (1.9-4.0) LVEF 73% LVIDd 3.4 (3.5-5.7) LVIDs 2.0 (2.0-3.5) %FS 41% LVPWd 1.3 (0.6-1.2) Ao Diam 3.2 (2.0-3.7) 2 DIMENSIONAL ASSESSMENT: RIGHT ATRIUM: NORMAL LEFT ATRIUM: NORMAL RIGHT VENTRICLE: NORMAL LEFT VENTRICLE: LEFT VENTRICULAR HYPERTROPHY TRICUSPID VALVE: NORMAL MITRAL VALVE: MITRAL ANNULAR CALCIFICATION PULMONIC VALVE: NORMAL AORTIC VALVE: SCLEROSIS PERICARDIAL EFFUSION: NONE AORTIC ROOT: NORMAL LEFT VENTRICULAR WALL MOTION: NORMAL. DOPPLER/COLOR FLOW: MILD TRICUSPID REGURGITATION. COMMENTS: LEFT VENTRICULAR HYPERTROPHY. NORMAL EJECTION FRACTION. MILD TRICUSPID REGURGITATION. MITRAL ANNULAR CALCIFICATION. AORTIC SCLEROSIS. TECHNOLOGIST: EMMA VELIZ
[2021-01-16] MEDS ORDERED: NA CHLORIDE 0.9% 1,000 ML ONE (11:55)
[2021-01-16] MEDS: NA CHLORIDE 0.9% 1,000 ML IV SCH ×2 (11:57→19:42)
--- NOTE | 2021-01-16 12:54 | CON ---
Date of Consultation: 01/16/2021 Reason For Consultation: Elevated BUN and creatinine, fluid management. 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 The patient has been dizzy. Denied any chest pain, any nausea, any vomiting . The patient apparently taking Aleve 4 tablets weekly. Denied any recent change in his medication. No exposure to contrast. The patient upon arrival to the hospital found to have elevation in creat inine up to 1.39. For that reason, we have been consulted. Past Medical History: Includes; 1.Diabetes complicated with neuropathy, retinopathy. 2.Hypertension. 3.CVA, spinal injury with paraplegic. 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 5.GERD. 6.Gout. 7.Hyperlipidemia. 8.Chronic kidney disease, baseline creatinine 1.4 with GFR of 50. Family History: Positive for hypertension and diabetes. Social History: Lives with family. Denied smoking. Denied drinking. Denied drugs abuse. Past Surgical History: Includes; 1.Spinal surgery. 2.Hydrocele. 3.Fistula repair. 4.Crohn disease. Review of Systems: Head and Neck: No red eye. No ear pain. GI: Has nausea. No vomiting. : Has neurogenic bladder and atonic bladder. Vaelra. Dining Room Supervisor: Not applicable. Respiratory: No shortness of breath. Cardiovascular: No chest pain. Endocrine: No polydipsia. Skin: No rash. Neuro: Has dizziness and fall. Musculoskeletal: Low back pain. Physical Examination: General: When I saw the patient; the patient lying in bed, comfortable, not in any distress. Vital Signs: Blood pressure of 152/89, pulse of 73, afebrile. Chest: Clear to auscultation. Heart: S1, S2. Regular. Abdomen: Soft, nontender. Extremity: No edema. Black/blue color on the left small toe. Mild erythema. Neurologic: Alert. Paraplegic. Laboratory Data: Sodium 138, potassium 4.2, bicarb 28, BUN 24, creatinine 1.3, GFR 53. Hemoglobin A 1c 11.1. Calcium 8.6, albumin 2.9, triglycerides 375. TSH 2.3. WBC 6.4, H and H 13.8/40.5. Current Medications: The patient on include; 1.Aspirin. 2.Meropenem. 3.Heparin. 4.Lisinopril 20 b.i.d. 5.Atorvastatin. 6.Tylenol. 7.Folic acid. 8.Levothyroxine. 9.Insulin. 10.Normal saline 100 per hour. Assessment And Plan: 1.Chronic kidney disease, stage 3, stable on his baseline secondary to diabetes nephropathy/hyperten abida nephrosclerosis/chronic obstructive uropathy secondary to neurogenic bladder. I am going to go ahead and continue current hydration. We will monitor the patient. I will send for protein creatini ne and PTH to evaluate further chronicity. 2.Atonic bladder. Continue self-catheterization. Follow up with his urologist. 3.Leg swelling, possible secondary to chronic kidney disease/venous stasis. Given the paraplegia/po ssible proteinuria, I am going to go ahead and send for a TSH and protein creatinine. Currently, the patient looked on the dry side. We will hold on any diuresis. We will follow up. 4.Hypertension, controlled, not optimal. We will add beta-diana, carvedilol. 5.Gout, stable. We will follow up uric acid. 6.Dizziness and fall as by primary. Thank you, Dr. Orellana for allowing us to participate in the care of your patient. ANDREA Voice ID: [id number] Report ID: [id number]
[2021-01-16 13:42] VITALS: O2SAT 100
[2021-01-16] MEDS: Meropenem 1,000 MG in NA CHLORIDE 0.9% 100 ML IV SCH ×2 (16:29→20:18)
[2021-01-16] MEDS: ATORVASTATIN 40 MG TAB PO SCH (20:18)
[2021-01-16 22:50] LABS: UR PROTEIN 39.6 mg/dL (<11.9)
[2021-01-16 22:56] LABS: UR CREAT < 13.0 mg/dL (20-370)
[2021-01-17 03:50] LABS: Absolute Lymphocytes (CBC) 1.4 K/uL (0.7-4.9); Basophils % 0.5 % (0-1.3); Hematocrit 40.5 % (39.6-49.0); Lymphocytes % 25.2 % (15.3-44.8); MPV 9.9 fL (7.6-11.3); RBC Red Blood Cell Count 4.73 M/uL (4.33-5.43)
[2021-01-17 04:30] LABS: Potassium 3.9 mmol/L (3.5-5.1)
[2021-01-17 04:31] LABS: Magnesium 1.9 mg/dL (1.8-2.4)
[2021-01-17 04:40] LABS: Thyroid Stimulating Hormone 4.01 uIU/mL (0.360-3.740)
[2021-01-17] MEDS: LEVOTHYROXINE SOD 0.075 MG TAB PO SCH (05:40)
[2021-01-17] MEDS: ACETAMINOPHEN 500 MG TAB PO PRN ×2 (05:48→20:55)
--- NOTE | 2021-01-17 06:04 | P.PN ---
Subjective Date of Service: 01/17/21 Primary Care Provider: Dr. Powers Chief Complaint: Dizziness, syncope Subjective: Improving, Doing well Physical Examination - Vital Signs Temperature: 97.7 F Blood Pressure: 178/93 Pulse: 80 Respirations: 19 Pulse Ox (%): 97 - Studies Laboratory Data (last 24 hrs) 01/16/21 09:19: Troponin I < 0.02 Assessment & Plan Discharge Plan: Home Plan to discharge in: 24 Hours Physician Review Additional Text: COVID: negative CT Scan Head/Neck/Chest/Ab/Pelvis: COMPARISON: No comparisons TECHNIQUE: Axial [address] head images were obtained. Axial [address] cervical spine images were obtained with sagittal and coronal reconstruction images reviewed. Axial 5 mm images of the chest, abdomen and pelvis were obtained. All CT scans are performed using dose optimization technique as appropriate and may include automated exposure control or mA/KV adjustment according to patient size. FINDINGS: No intracranial hemorrhage, mass or edema. No midline shift or abnormal fluid collection. No large scalp hematoma identified. Chronic sphenoid sinusitis present. No skull fracture. Cervical bodies are normal in height and alignment. No fracture or acute bone finding.No disk space narrowing.No prevertebral soft tissue thickening or paraspinal mass.Central canal detail is inherently limited on CT imaging. CT chest shows no pneumothorax, pulmonary contusion or pleural fluid collection. No mediastinal hematoma and the aorta and pulmonary arteries are unremarkable. No chest will mass or abnormal axillary finding. No acute bone finding. Posterior decompression surgical changes are evident in the T9-T12 region. Lower lumbar and SI joint degenerative changes are present. No displaced rib fracture or acute rib finding identified. CT abdomen and pelvis show no injury to solid abdominal viscera. Gallbladder and biliary tree are unremarkable. No bowel injury or significant finding. No free air, free fluid or abnormal stranding. No hernia, mass or bulky lymphadenopathy. No urinary bladder abnormality. IMPRESSION: No significant CT Head finding. No significant CT cervical spine finding. No significant CT Chest finding. No significant CT Abdomen and Pelvis finding. MRI Brain: COMPARISON: 05/05/2014, head CT 01/15/2021 TECHNIQUE: Sagittal and axial T1-weighted images were obtained. Axial PD/heavily T2-weighted and T2-FLAIR images were obtained along with axial DWI/ADC mapping sequences. Axial and coronal post-contrast T1-weighted images were also obtained. FINDINGS: No intracranial hemorrhage, mass or acute infarction. There is no edema or shift of midline structures. No extra-axial fluid collections. Ng- matter/white matter junction is preserved. Signal voids are seen as a normal finding in the major intracranial vessels. Post-contrast images show normal enhancement. No dural thickening. Opacified left sphenoid sinus. Mild ethmoid air cell thickening. Trace right maxillary sinus thickening. IMPRESSION: No acute intracranial abnormality. No evidence of acute infarct. No abnormal enhancement. MRA Brain: COMPARISON: Brain W/Wo Cont dated 11/26/2016; MRI BRAIN WITHOUT CONTRAST dated 05/05/2014; Head C Spine Cap Wo Con dated 01/15/2021 FINDINGS: 3D noncontrast [id number] MR angiography of the [place] of [place] was performed. Opacified left sphenoid sinus. No aneurysm, flow-limiting stenosis or vascular malformation is seen. Forward flow seen in codominant vertebral arteries. The visualized dural venous sinuses appear patent. IMPRESSION: No significant flow abnormality of the [place] of [place] is identified. No aneurysm. MRA Neck: COMPARISON: No comparisons FINDINGS: Contrast enhance 2D [id number] MR angiography of the neck vessels was performed. Bilateral carotid systems are widely patent. The left vertebral artery is partially obscured proximally. This is favored to be artifact. The vertebral arteries are codominant. IMPRESSION: No hemodynamically significant stenosis identified within the neck. Presumed artifact at the proximal left vertebral artery Carotid doppler: COMPARISON: No comparisons TECHNIQUE: Real-time sonographic evaluation of both carotid systems was performed. Doppler interrogation was performed with waveform tracing bilaterally. FINDINGS: Normal high resistance waveforms are noted in both external carotid arteries. The common carotid arteries and internal carotid arteries show normal low resistance waveforms. Mild soft plaque at the left carotid bulb. Peak systolic and end diastolic velocity values and the ICA/CCA ratios are in the non-hemodynamically significant range. Antegrade flow seen in both vertebral arteries. IMPRESSION: Mild soft plaque at the left carotid bulb. No evidence of a hemodynamically significant stenosis. ECHO: CARDIAC HISTORY: CATHERIZATION: NO SURGERY: NO PROSTHETIC VALVE: NO PACEMAKER: NO MEASUREMENTS (cm) DIASTOLIC (NORMALS) SYSTOLIC (NORMALS) IVSd 1.3 (0.6-1.2) LA Diam 2.0 (1.9-4.0) LVEF 73% LVIDd 3.4 (3.5-5.7) LVIDs 2.0 (2.0-3.5) %FS 41% LVPWd 1.3 (0.6-1.2) Ao Diam 3.2 (2.0-3.7) 2 DIMENSIONAL ASSESSMENT: RIGHT ATRIUM: NORMAL LEFT ATRIUM: NORMAL RIGHT VENTRICLE: NORMAL LEFT VENTRICLE: LEFT VENTRICULAR HYPERTROPHY TRICUSPID VALVE: NORMAL MITRAL VALVE: MITRAL ANNULAR CALCIFICATION PULMONIC VALVE: NORMAL AORTIC VALVE: SCLEROSIS PERICARDIAL EFFUSION: NONE AORTIC ROOT: NORMAL LEFT VENTRICULAR WALL MOTION: NORMAL. DOPPLER/COLOR FLOW: MILD TRICUSPID REGURGITATION. COMMENTS: LEFT VENTRICULAR HYPERTROPHY. NORMAL EJECTION FRACTION. MILD TRICUSPID REGURGITATION. MITRAL ANNULAR CALCIFICATION. AORTIC SCLEROSIS. Physical exam: General: Alert, In no apparent distress, Oriented x3 HEENT: Neck supple Respiratory: Clear to auscultation bilaterally, Normal air movement Cardiovascular: Regular rate/rhythm, Normal S1 S2 Gastrointestinal: Normal bowel sounds, No tenderness Musculoskeletal: No tenderness, Other (Previous spinal stroke and paraplegia below the waist, unable to move lower extremities below the knees) Integumentary: No rashes Neurological: Normal speech, Normal tone, Normal affect Lymphatics: No axilla or inguinal lymphadenopathy Impression: Syncope with dizziness likely related to UTI UTI complicated with history of drug-resistant bacteria and chronic Valera catheter, urine culture shows gram-negative rods Diabetes mellitus type 2 with hyperglycemia Hypertension Hyperlipidemia Hypothyroidism Gout Acute on chronic renal disease stage III History of spinal stroke with paraplegia Plan: Syncope with dizziness likely related to UTI: CT head unremarkable. MRI brain shows no acute stroke. MRA neck and head unremarkable. Patient back to baseline. Initial CT head unremarkable. Patient back to baseline. Continue aspirin and folic acid. This may be related to underlying UTI with history of drug-resistant bacteria. Culture shows gram-negative rods. Await urine culture results. Patient remains on IV meropenem. Discontinue IV fluids. Continue with current medications. If drug resistant bacteria noted patient may require PICC line and IV antibiotic therapy at home. If not anticipate possible discharge as early as tomorrow with oral medication. UTI complicated with history of drug-resistant bacteria and chronic Valera catheter, urine culture shows gram-negative rods: Valera catheter recently changed. Patient remains on IV meropenem due to his history of drug resistance in the past. Await urine culture results. Diabetes mellitus type 2 with hyperglycemia: Hemoglobin A1c 11.11. Continue to adjust Lantus for better control. Currently on 38 units subcu twice daily. Will monitor and adjust appropriately. Hypertension: Blood pressure still elevated. Will add carvedilol 3 1.25 mg 1 pill twice daily. Continue lisinopril 20 mg 1 pill twice daily with parameters in place. Hyperlipidemia: Continue with Lipitor 40 mg daily Hypothyroidism: Continue with levothyroxine 150 mcg daily Gout: Review home medication Acute on chronic renal disease stage III: Renal function improved. Will discontinue IV fluids. History of spinal stroke with paraplegia: Patient with paraplegia below the waist. Overall stable. Continue with physical therapy and Occupational Therapy. DVT PPX: Heparin Code status: Full Discharge Plan: Home at discharge Time Spent Managing Pts Care (In Minutes): 55
[2021-01-17] MEDS: INSULIN -REGULAR HUMAN 50 UNIT/0.5 ML ML SQ SCH ×4 (07:30→20:48)
[2021-01-17] MEDS ORDERED: KCL 20 MEQ/100 mL IVPB 20 MEQ/100 ML BAG IV SCH (09:00)
[2021-01-17] MEDS: lisinopriL 20 MG TAB PO SCH ×3 (09:04→20:46)
[2021-01-17] MEDS: Meropenem 1,000 MG in NA CHLORIDE 0.9% 100 ML IV SCH ×2 (09:04→16:37)
[2021-01-17] MEDS: FOLIC ACID 1 MG TABLET PO SCH (09:05)
[2021-01-17] MEDS: ASPIRIN EC 81 MG TAB PO SCH (09:05)
[2021-01-17] MEDS: HEPARIN 5000 UNIT/ML 1 ML VIAL SQ SCH ×2 (09:06→21:00)
[2021-01-17] MEDS: carvediloL 12.5 MG TAB PO SCH (17:29)
--- NOTE | 2021-01-17 17:41 | PN ---
Date of Progress Note: 01/17/2021 Subjective: The patient was admitted with acute kidney injury on chronic kidney disease secondary to prerenal, dehydration. The patient was started on IV fluid. Creatinine down from 1.3 to 1.7. The patient is feeling better. Objective: Vital Signs: Blood pressure 178/93, pulse of 80, afebrile. The patient had good urine o utput of 4100. Chest: Clear to auscultation. Heart: S1, S2. Systolic murmur. Abdomen: Soft, nontender. Extremities: No edema. Neuro: Patient is paraplegic. Laboratory Data: Sodium 138, potassium 3.9, bicarb 25, BUN 26, creatinine 1.1, GFR of 65, calcium 8. 7, phosphorus 3, magnesium 1.9, albumin 3, corrected calcium 9.5, TSH of 4, PTH of 67, PC ratio of 3 g. Current Medications: The patient on include, 1.Meropenem. 2.Aspirin. 3.Atorvastatin. 4.Carvedilol. 5.Lisinopril. 6.Folic acid. 7.Levothyroxine. Assessment And Plan: 1.Chronic kidney disease stage 2, status post acute kidney injury secondary to prerenal, nephrotic r rodrigo of proteinuria, recovered. I am going to go ahead and discontinue IV fluid. We will go ahead a nd send for serum protein electrophoresis given the nephrotic range proteinuria, mostly it is seconda ry to diabetes. 2.We will continue on KATHY inhibitor. 3.Nephrotic range of proteinuria as above, sent for serum protein electrophoresis. Continue KATHY inh ibitor. 4.Hypertension, not controlled. I am going to go ahead and increase carvedilol to 12.5. Continue l isinopril. I am going to go ahead and add calcium channel diana and we will follow up. Dizziness, loss of consciousness, follow up with the primary to rule out cerebrovascular accident. 5.Diabetes as by primary. EUN/DAVIDL Voice ID: [id number] Report ID: [id number]
[2021-01-17] MEDS ORDERED: carvediloL 3.125 MG TAB PO SCH (18:00)
[2021-01-17] MEDS: ATORVASTATIN 40 MG TAB PO SCH (20:46)
[2021-01-17] MEDS ORDERED: INSULIN GLARGINE 100 UNITS/ML SQ SCH (21:00)
--- NOTE | 2021-01-17 22:35 | CON ---
Reason For Consultation: Consultation called because of dizziness and vertigo with syncope. History Of Present Illness: Mr. Chaudhari is a 55-year-old right-handed , paraplegic patient, w dirk has had a spinal stroke, as a result leading to the paraplegia; history of diabetes mellitus; hype rtension; dyslipidemia; chronic renal disease, who was at home alone in his wheelchair on the 9 ed und 3 p.m., when he suddenly, after he wheeled himself to his dining table, began to feel the world s pinning around him completely and he reports his next memory was being on the floor. The event was u nwitnessed. He said the world was spinning quickly and fast before he actually passed out. His found him later and actually took a picture of him on the floor. He was lying with his head turned to the left and the right side of his head was all against the floor and his shoulders, he was facing downward and was just fell out of his wheelchair. The episode resolved perhaps 15 to 20 minutes lat er and the patient came to [facility] for an evaluation. His brain MRI with MRA showed no s ignificant abnormalities in the [place] of [place]. There was no aneurysm there. MRI of the brain rev ealed no acute ischemic or hemorrhagic stroke. MRA of the neck revealed no abnormalities in the bloo d vessels. There was a presumed artifact in the proximal left vertebral artery, perhaps from CT imag ing. His echocardiogram showed ejection fraction of 73% with mild tricuspid regurgitation. There wa s mitral annular calcification and aortic sclerosis identified. Carotid artery ultrasound showed no evidence of hemodynamically significant stenosis. His blood work revealed essentially a normal compl ete blood count with differential, normal coagulation panel. Basic metabolic panel was remarkable fo r elevated glucose, highest level of 330. His thyroid-stimulating hormone slightly elevated at 4.1 w ith a normal free T4. Parathyroid hormone level normal. Liver function studies normal. His LDL was noted to be 5, although it appears to be an error; HDL 25; total cholesterol 104. Procalcitonin sli ghtly elevated at 0.07. Lactic acid normal at 1.1. Hemoglobin A1c 11.1. Urinalysis showed loaded w ith bacteria, 20 to 50 white blood cells, 2+ esterase, positive nitrite, elevated random urine protei n of 39.6, elevated protein to creatinine ratio of 3.00, total protein elevated at 2. COVID-19 test was negative. The patient has had hydration and treatment for urinary tract infection. Denies addit ional episodes of vertigo. Past Medical History: As noted including the diabetes mellitus, hypertension, chronic renal disease, gout, dyslipidemia, hypothyroidism, paraplegia secondary to spinal stroke in 2014, gastroesophageal reflux disease, coronary artery disease, Crohn disease. Surgical History: Spinal surgery, hydrocele surgery, fistula repair. Family History: Positive for hypertension, diabetes, stroke in mother and she with gangrene in the legs. Allergies: METFORMIN, IBUPROFEN. Home Medications: Colchicine 0.6 mg twice daily, Lasix 40 mg daily, NovoLog FlexPen 30 units 3 times daily, Levemir FlexTouch 46 units twice daily, Synthroid 75 mcg daily, lisinopril 40 mg daily, aspir in 81 mg daily, fenofibrate 160 mg daily, collagenase apply topically as needed. Review of Systems: Aside from mentioned above, negative 10-point systems review. Physical Examination: Vital Signs: Blood pressure 157/90, pulse 73, respiratory rate 17, temperature 97.4, oxygen saturati on 95%. Weight 230 pounds, height 5 feet 8 inches, BMI 35. General: Mr. Chaudhari is resting in bed. He is in no significant distress. HEENT: He does have slight swelling in the right forehead and on the right side where he impacted th e floor. Otherwise, atraumatic and normocephalic. Sclerae anicteric. Oropharynx is moist. Neck: Supple. Chest: Clear. Heart: Regular. Abdomen: Soft. Extremities: He does have stasis changes in the lower extremities and able to feel and move the lowe r extremities below the knees. Neurological: Otherwise shows no focal deficits in the upper and lower extremities. He does have si gnificant decrease to light touch, temperature in a stocking-glove fashion. He has coordination inta ct in the upper extremities. Unable to perform in lower extremities. Reflexes brisk in the lower ex tremities compared to upper and he is nonambulatory. Assessment: Mr. Chaudhari is a 55-year-old patient with benign paroxysmal positional vertigo. He has n o evidence of stroke. No blood flow abnormalities in his head and neck. Carotid artery ultrasound s howed no hemodynamically significant stenosis. Echocardiogram shows good ejection fraction and no si gnificant abnormalities there. Plan: 1.Continue aggressive management of his comorbid conditions. 2.The patient may have Lia maneuver performed as necessary. 3.May try meclizine 25 mg as needed for vertigo. 4.He may be discharged home with aggressive treatment of his urinary tract infection and be hydrated appropriately. 5.After discharge, may follow up with Dr. Keita's clinic 1 month later. LIBERTAD/SNOW Voice ID: [id number] Report ID: [id number]
[2021-01-18] MEDS: Meropenem 1,000 MG in NA CHLORIDE 0.9% 100 ML IV SCH ×3 (00:43→17:03)
[2021-01-18] MEDS: LEVOTHYROXINE SOD 0.075 MG TAB PO SCH (05:36)
[2021-01-18] MEDS: carvediloL 12.5 MG TAB PO SCH ×2 (05:36→17:19)
--- NOTE | 2021-01-18 06:09 | P.PN ---
Subjective Date of Service: 01/18/21 Primary Care Provider: Dr. Powers Chief Complaint: Dizziness, syncope Subjective: Improving, Doing well Physical Examination - Vital Signs Temperature: 97.3 F Blood Pressure: 143/79 Pulse: 74 Respirations: 19 Pulse Ox (%): 91 Assessment & Plan Discharge Plan: Home Plan to discharge in: 24 Hours Physician Review Additional Text: COVID: negative CT Scan Head/Neck/Chest/Ab/Pelvis: COMPARISON: No comparisons TECHNIQUE: Axial [address] head images were obtained. Axial [address] cervical spine images were obtained with sagittal and coronal reconstruction images reviewed. Axial 5 mm images of the chest, abdomen and pelvis were obtained. All CT scans are performed using dose optimization technique as appropriate and may include automated exposure control or mA/KV adjustment according to patient size. FINDINGS: No intracranial hemorrhage, mass or edema. No midline shift or abnormal fluid collection. No large scalp hematoma identified. Chronic sphenoid sinusitis present. No skull fracture. Cervical bodies are normal in height and alignment. No fracture or acute bone finding.No disk space narrowing.No prevertebral soft tissue thickening or paraspinal mass.Central canal detail is inherently limited on CT imaging. CT chest shows no pneumothorax, pulmonary contusion or pleural fluid collection. No mediastinal hematoma and the aorta and pulmonary arteries are unremarkable. No chest will mass or abnormal axillary finding. No acute bone finding. Posterior decompression surgical changes are evident in the T9-T12 region. Lower lumbar and SI joint degenerative changes are present. No displaced rib fracture or acute rib finding identified. CT abdomen and pelvis show no injury to solid abdominal viscera. Gallbladder and biliary tree are unremarkable. No bowel injury or significant finding. No free air, free fluid or abnormal stranding. No hernia, mass or bulky lymphadenopathy. No urinary bladder abnormality. IMPRESSION: No significant CT Head finding. No significant CT cervical spine finding. No significant CT Chest finding. No significant CT Abdomen and Pelvis finding. MRI Brain: COMPARISON: 05/05/2014, head CT 01/15/2021 TECHNIQUE: Sagittal and axial T1-weighted images were obtained. Axial PD/heavily T2-weighted and T2-FLAIR images were obtained along with axial DWI/ ADC mapping sequences. Axial and coronal post-contrast T1-weighted images were also obtained. FINDINGS: No intracranial hemorrhage, mass or acute infarction. There is no edema or shift of midline structures. No extra-axial fluid collections. Ng- matter/white matter junction is preserved. Signal voids are seen as a normal finding in the major intracranial vessels. Post-contrast images show normal enhancement. No dural thickening. Opacified left sphenoid sinus. Mild ethmoid air cell thickening. Trace right maxillary sinus thickening. IMPRESSION: No acute intracranial abnormality. No evidence of acute infarct. No abnormal enhancement. MRA Brain: COMPARISON: Brain W/Wo Cont dated 11/26/2016; MRI BRAIN WITHOUT CONTRAST dated 05/05/2014; Head C Spine Cap Wo Con dated 01/15/2021 FINDINGS: 3D noncontrast [id number] MR angiography of the [place] was performed. Opacified left sphenoid sinus. No aneurysm, flow-limiting stenosis or vascular malformation is seen. Forward flow seen in codominant vertebral arteries. The visualized dural venous sinuses appear patent. IMPRESSION: No significant flow abnormality of the [place] is identified. No aneurysm. MRA Neck: COMPARISON: No comparisons FINDINGS: Contrast enhance 2D [id number] MR angiography of the neck vessels was performed. Bilateral carotid systems are widely patent. The left vertebral artery is partially obscured proximally. This is favored to be artifact. The vertebral arteries are codominant. IMPRESSION: No hemodynamically significant stenosis identified within the neck. Presumed artifact at the proximal left vertebral artery Carotid doppler: COMPARISON: No comparisons TECHNIQUE: Real-time sonographic evaluation of both carotid systems was performed. Doppler interrogation was performed with waveform tracing bilaterally. FINDINGS: Normal high resistance waveforms are noted in both external carotid arteries. The common carotid arteries and internal carotid arteries show normal low resistance waveforms. Mild soft plaque at the left carotid bulb. Peak systolic and end diastolic velocity values and the ICA/CCA ratios are in the non-hemodynamically significant range. Antegrade flow seen in both vertebral arteries. IMPRESSION: Mild soft plaque at the left carotid bulb. No evidence of a hemodynamically significant stenosis. ECHO: CARDIAC HISTORY: CATHERIZATION: NO SURGERY: NO PROSTHETIC VALVE: NO PACEMAKER: NO MEASUREMENTS (cm) DIASTOLIC (NORMALS) SYSTOLIC (NORMALS) IVSd 1.3 (0.6-1.2) LA Diam 2.0 (1.9-4.0) LVEF 73% LVIDd 3.4 (3.5-5.7) LVIDs 2.0 (2.0-3.5) %FS 41% LVPWd 1.3 (0.6-1.2) Ao Diam 3.2 (2.0-3.7) 2 DIMENSIONAL ASSESSMENT: RIGHT ATRIUM: NORMAL LEFT ATRIUM: NORMAL RIGHT VENTRICLE: NORMAL LEFT VENTRICLE: LEFT VENTRICULAR HYPERTROPHY TRICUSPID VALVE: NORMAL MITRAL VALVE: MITRAL ANNULAR CALCIFICATION PULMONIC VALVE: NORMAL AORTIC VALVE: SCLEROSIS PERICARDIAL EFFUSION: NONE AORTIC ROOT: NORMAL LEFT VENTRICULAR WALL MOTION: NORMAL. DOPPLER/COLOR FLOW: MILD TRICUSPID REGURGITATION. COMMENTS: LEFT VENTRICULAR HYPERTROPHY. NORMAL EJECTION FRACTION. MILD TRICUSPID REGURGITATION. MITRAL ANNULAR CALCIFICATION. AORTIC SCLEROSIS. Physical exam: General: Alert, In no apparent distress, Oriented x3 HEENT: Neck supple Respiratory: Clear to auscultation bilaterally, Normal air movement Cardiovascular: Regular rate/rhythm, Normal S1 S2 Gastrointestinal: Normal bowel sounds, No tenderness Musculoskeletal: No tenderness, Other (Previous spinal stroke and paraplegia below the waist, unable to move lower extremities below the knees) Integumentary: No rashes Neurological: Normal speech, Normal tone, Normal affect Lymphatics: No axilla or inguinal lymphadenopathy Impression: Syncope with dizziness likely related to UTI UTI complicated with history of drug-resistant bacteria and chronic Valera catheter, urine culture shows gram-negative rods Diabetes mellitus type 2 with hyperglycemia Hypertension Hyperlipidemia Hypothyroidism Gout Acute on chronic renal disease stage III History of spinal stroke with paraplegia Plan: Syncope with dizziness likely related to UTI: CT head unremarkable. MRI brain shows no acute stroke. MRA neck and head unremarkable. Patient back to baseline. Initial CT head unremarkable. Patient back to baseline. Continue aspirin and folic acid. This may be related to underlying UTI with history of drug-resistant bacteria. Culture shows gram-negative rods. Await urine culture results. Patient remains on IV meropenem. Continue with current medications. If drug resistant bacteria noted patient may require PICC line and IV antibiotic therapy at home. If not anticipate possible discharge as early as tomorrow with oral medication. UTI complicated with history of drug-resistant bacteria and chronic Valera catheter, urine culture shows gram-negative rods: Valera catheter recently changed. Patient remains on IV meropenem due to his history of drug resistance in the past. Await urine culture results. Diabetes mellitus type 2 with hyperglycemia: Hemoglobin A1c 11.11. Continue to adjust Lantus for better control. Currently on 40 units subcu twice daily. Will monitor and adjust appropriately. Hypertension: Blood pressure remains elevated. Will adjust carvedilol to 6.25 mg 1 pill twice daily. Continue lisinopril 20 mg 1 pill twice daily with parameters in place. Hyperlipidemia: Continue with Lipitor 40 mg daily Hypothyroidism: Continue with levothyroxine 150 mcg daily Gout: Review home medication Acute on chronic renal disease stage III: Renal function stable History of spinal stroke with paraplegia: Patient with paraplegia below the waist. Overall stable. Continue with physical therapy and Occupational Therapy. DVT PPX: Heparin Code status: Full Discharge Plan: Home at discharge Time Spent Managing Pts Care (In Minutes): 55
[2021-01-18 06:15] LABS: Absolute Lymphocytes (CBC) 1.3 K/uL (0.7-4.9); Basophils % 0.5 % (0-1.3); Hematocrit 40.8 % (39.6-49.0); Lymphocytes % 22.3 % (15.3-44.8); MPV 10.4 fL (7.6-11.3); RBC Red Blood Cell Count 4.78 M/uL (4.33-5.43)
--- NOTE | 2021-01-18 06:25 | P.PN ---
Subjective Date of Service: 01/18/21 Primary Care Provider: Dr. Powers Chief Complaint: Dizziness, syncope Subjective: Other (No urinary complaints.) Physical Examination - Vital Signs Temperature: 97.3 F Blood Pressure: 143/79 Pulse: 74 Respirations: 19 Pulse Ox (%): 91 - Physical Exam General: In no apparent distress HEENT: Atraumatic, Normocephalic Neck: Supple, JVD not distended Respiratory: Other (Symmetric chest expansion) Cardiovascular: No rubs, No murmurs Gastrointestinal: Soft and benign, Non-distended Musculoskeletal: No clubbing Integumentary: Other (Normal temp) Lymphatics: No axilla or inguinal lymphadenopathy Urinary: Other (No bladder distention) External genitalia: Deferred Rectal: Deferred Assessment And Plan - Plan 1. CKD2, status post acute kidney injury secondary to prerenal, nephrotic range of proteinuria, improved. [place] po fluid intake. Monitor. 2. 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 F/u spep. Continue Lisinopril & statin. BP control < 130/80. Low Na diet. F/u 25OHD. 3. UTI. On Merrem. F/u UCx. 4. Hypertension. BP variable. BP goal < 130/80. Cont current BP med reg imen. 5. DM2. Mngt per primary team. 6. Syncope/dizziness, hx of spinal stroke w/ paraplegia. PT/OT. 7. Dispo. Dc when antibiotic plan finalized.
[2021-01-18 06:26] LABS: Albumin 2.9 g/dL (3.4-5.0); Magnesium 2.1 mg/dL (1.8-2.4); Phosphorus 2.6 mg/dL (2.5-4.9); Potassium 3.9 mmol/L (3.5-5.1)
[2021-01-18] MEDS: INSULIN -REGULAR HUMAN 50 UNIT/0.5 ML ML SQ SCH ×4 (08:00→20:45)
[2021-01-18] MEDS: INSULIN GLARGINE 100 UNITS/ML SQ SCH ×2 (09:56→20:45)
[2021-01-18] MEDS: ASPIRIN EC 81 MG TAB PO SCH (09:58)
[2021-01-18] MEDS: FOLIC ACID 1 MG TABLET PO SCH (09:59)
[2021-01-18] MEDS: HEPARIN 5000 UNIT/ML 1 ML VIAL SQ SCH ×2 (09:59→20:46)
[2021-01-18] MEDS: AMLODIPINE 10 MG TAB PO SCH (09:59)
[2021-01-18] MEDS: ACETAMINOPHEN 500 MG TAB PO PRN (14:31)
[2021-01-18] MEDS: lisinopriL 20 MG TAB PO SCH (20:44)
[2021-01-18] MEDS: ATORVASTATIN 40 MG TAB PO SCH (20:44)
--- NOTE | 2021-01-18 20:46 | EKG ---
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
[2021-01-19] MEDS: Meropenem 1,000 MG in NA CHLORIDE 0.9% 100 ML IV SCH (00:45)
[2021-01-19 04:42] LABS: Absolute Lymphocytes (CBC) 1.3 K/uL (0.7-4.9); Basophils % 0.5 % (0-1.3); Hematocrit 41.2 % (39.6-49.0); Lymphocytes % 21.1 % (15.3-44.8); MPV 9.7 fL (7.6-11.3); RBC Red Blood Cell Count 4.83 M/uL (4.33-5.43)
[2021-01-19 04:53] LABS: Magnesium 1.9 mg/dL (1.8-2.4); Potassium 3.9 mmol/L (3.5-5.1)
[2021-01-19 05:35] VITALS: BP 156/81; TEMP 98.6
[2021-01-19] MEDS: LEVOTHYROXINE SOD 0.075 MG TAB PO SCH (05:37)
[2021-01-19] MEDS: carvediloL 12.5 MG TAB PO SCH (05:37)
--- NOTE | 2021-01-19 05:52 | P.PN ---
Subjective Date of Service: 01/19/21 Primary Care Provider: Dr. Powers Chief Complaint: Dizziness, syncope Subjective: Improving, Doing well Physical Examination - Vital Signs Temperature: 98.6 F Blood Pressure: 156/81 Pulse: 75 Respirations: 16 Pulse Ox (%): 94 Assessment & Plan Discharge Plan: Home Plan to discharge in: 24 Hours Physician Review Additional Text: COVID: negative CT Scan Head/Neck/Chest/Ab/Pelvis: COMPARISON: No comparisons TECHNIQUE: Axial [address] head images were obtained. Axial [address] cervical spine images were obtained with sagittal and coronal reconstruction images reviewed. Axial 5 mm images of the chest, abdomen and pelvis were obtained. All CT scans are performed using dose optimization technique as appropriate and may include automated exposure control or mA/KV adjustment according to patient size. FINDINGS: No intracranial hemorrhage, mass or edema. No midline shift or abnormal fluid collection. No large scalp hematoma identified. Chronic sphenoid sinusitis present. No skull fracture. Cervical bodies are normal in height and alignment. No fracture or acute bone finding.No disk space narrowing.No prevertebral soft tissue thickening or paraspinal mass.Central canal detail is inherently limited on CT imaging. CT chest shows no pneumothorax, pulmonary contusion or pleural fluid collection. No mediastinal hematoma and the aorta and pulmonary arteries are unremarkable. No chest will mass or abnormal axillary finding. No acute bone finding. Posterior decompression surgical changes are evident in the T9-T12 region. Lower lumbar and SI joint degenerative changes are present. No displaced rib fracture or acute rib finding identified. CT abdomen and pelvis show no injury to solid abdominal viscera. Gallbladder and biliary tree are unremarkable. No bowel injury or significant finding. No free air, free fluid or abnormal stranding. No hernia, mass or bulky lymphadenopathy. No urinary bladder abnormality. IMPRESSION: No significant CT Head finding. No significant CT cervical spine finding. No significant CT Chest finding. No significant CT Abdomen and Pelvis finding. MRI Brain: COMPARISON: 05/05/2014, head CT 01/15/2021 TECHNIQUE: Sagittal and axial T1-weighted images were obtained. Axial PD/heavily T2-weighted and T2-FLAIR images were obtained along with axial DWI/ ADC mapping sequences. Axial and coronal post-contrast T1-weighted images were also obtained. FINDINGS: No intracranial hemorrhage, mass or acute infarction. There is no edema or shift of midline structures. No extra-axial fluid collections. Ng- matter/white matter junction is preserved. Signal voids are seen as a normal finding in the major intracranial vessels. Post-contrast images show normal enhancement. No dural thickening. Opacified left sphenoid sinus. Mild ethmoid air cell thickening. Trace right maxillary sinus thickening. IMPRESSION: No acute intracranial abnormality. No evidence of acute infarct. No abnormal enhancement. MRA Brain: COMPARISON: Brain W/Wo Cont dated 11/26/2016; MRI BRAIN WITHOUT CONTRAST dated 05/05/2014; Head C Spine Cap Wo Con dated 01/15/2021 FINDINGS: 3D noncontrast [id number] MR angiography of the [place] was performed. Opacified left sphenoid sinus. No aneurysm, flow-limiting stenosis or vascular malformation is seen. Forward flow seen in codominant vertebral arteries. The visualized dural venous sinuses appear patent. IMPRESSION: No significant flow abnormality of the [place] is identified. No aneurysm. MRA Neck: COMPARISON: No comparisons FINDINGS: Contrast enhance 2D [id number] MR angiography of the neck vessels was performed. Bilateral carotid systems are widely patent. The left vertebral artery is partially obscured proximally. This is favored to be artifact. The vertebral arteries are codominant. IMPRESSION: No hemodynamically significant stenosis identified within the neck. Presumed artifact at the proximal left vertebral artery Carotid doppler: COMPARISON: No comparisons TECHNIQUE: Real-time sonographic evaluation of both carotid systems was performed. Doppler interrogation was performed with waveform tracing bilaterally. FINDINGS: Normal high resistance waveforms are noted in both external carotid arteries. The common carotid arteries and internal carotid arteries show normal low resistance waveforms. Mild soft plaque at the left carotid bulb. Peak systolic and end diastolic velocity values and the ICA/CCA ratios are in the non-hemodynamically significant range. Antegrade flow seen in both vertebral arteries. IMPRESSION: Mild soft plaque at the left carotid bulb. No evidence of a hemodynamically significant stenosis. ECHO: CARDIAC HISTORY: CATHERIZATION: NO SURGERY: NO PROSTHETIC VALVE: NO PACEMAKER: NO MEASUREMENTS (cm) DIASTOLIC (NORMALS) SYSTOLIC (NORMALS) IVSd 1.3 (0.6-1.2) LA Diam 2.0 (1.9-4.0) LVEF 73% LVIDd 3.4 (3.5-5.7) LVIDs 2.0 (2.0-3.5) %FS 41% LVPWd 1.3 (0.6-1.2) Ao Diam 3.2 (2.0-3.7) 2 DIMENSIONAL ASSESSMENT: RIGHT ATRIUM: NORMAL LEFT ATRIUM: NORMAL RIGHT VENTRICLE: NORMAL LEFT VENTRICLE: LEFT VENTRICULAR HYPERTROPHY TRICUSPID VALVE: NORMAL MITRAL VALVE: MITRAL ANNULAR CALCIFICATION PULMONIC VALVE: NORMAL AORTIC VALVE: SCLEROSIS PERICARDIAL EFFUSION: NONE AORTIC ROOT: NORMAL LEFT VENTRICULAR WALL MOTION: NORMAL. DOPPLER/COLOR FLOW: MILD TRICUSPID REGURGITATION. COMMENTS: LEFT VENTRICULAR HYPERTROPHY. NORMAL EJECTION FRACTION. MILD TRICUSPID REGURGITATION. MITRAL ANNULAR CALCIFICATION. AORTIC SCLEROSIS. Physical exam: General: Alert, In no apparent distress, Oriented x3 HEENT: Neck supple Respiratory: Clear to auscultation bilaterally, Normal air movement Cardiovascular: Regular rate/rhythm, Normal S1 S2 Gastrointestinal: Normal bowel sounds, No tenderness Musculoskeletal: No tenderness, Other (Previous spinal stroke and paraplegia below the waist, unable to move lower extremities below the knees) Integumentary: No rashes Neurological: Normal speech, Normal tone, Normal affect Lymphatics: No axilla or inguinal lymphadenopathy Impression: Syncope with dizziness likely related to UTI UTI complicated with history of drug-resistant bacteria and chronic Valera catheter, urine culture shows gram-negative rods Diabetes mellitus type 2 with hyperglycemia Hypertension Hyperlipidemia Hypothyroidism Gout Acute on chronic renal disease stage III History of spinal stroke with paraplegia Plan: Syncope with dizziness likely related to UTI: CT head unremarkable. MRI brain shows no acute stroke. MRA neck and head unremarkable. Patient back to baseline. Initial CT head unremarkable. Patient back to baseline. Continue aspirin and folic acid. B and dizziness likely related to UTI. Urine culture shows Serratia. Patient doing well at this time. Will discharge patient on Levaquin 500 mg daily for 7 days. Will recheck urine culture prior to discharge. Patient with chronic Valera catheter. Recommend follow-up with urology to further monitor and address. UTI complicated with history of drug-resistant bacteria and chronic Valera catheter, urine culture shows Serratia: Valera catheter recently changed. Patient will continue with Levaquin 500 mg daily for 7 days. Recheck urine culture prior to discharge. Follow-up with urology as an outpatient. Diabetes mellitus type 2 with hyperglycemia: Hemoglobin A1c 11.11. Continue to adjust Lantus for better control. Currently on 40 units subcu twice daily. Will monitor and adjust appropriately. Hypertension: Blood pressure improved. Continue with carvedilol to 6.25 mg 1 pill twice daily and lisinopril 20 mg 1 pill twice daily with parameters in place. Hyperlipidemia: Continue with Lipitor 40 mg daily Hypothyroidism: Continue with levothyroxine 150 mcg daily Gout: Review home medication Acute on chronic renal disease stage III: Renal function stable History of spinal stroke with paraplegia: Patient with paraplegia below the waist. Overall stable. Continue with physical therapy and Occupational Therapy. DVT PPX: Heparin Code status: Full Discharge Plan: Home at discharge Time Spent Managing Pts Care (In Minutes): 55
[2021-01-19] MEDS: INSULIN -REGULAR HUMAN 50 UNIT/0.5 ML ML SQ SCH (07:30)
--- NOTE | 2021-01-19 08:29 | P.DS ---
Admission Date: 01/16/21 Discharge Date: 01/19/21 Primary Care Provider: Dr. Powers; Urology-Dr. Gibbs Disposition: ROUTINE DISCHARGE Discharge Condition: GOOD Reason for Admission: Dizziness, syncope Consultations: Neurology-Dr. Keita Nephrology-Dr. Horan Procedures: COVID: negative CT Scan Head/Neck/Chest/Ab/Pelvis: COMPARISON: No comparisons TECHNIQUE: Axial [address] head images were obtained. Axial [address] cervical spine images were obtained with sagittal and coronal reconstruction images reviewed. Axial 5 mm images of the chest, abdomen and pelvis were obtained. All CT scans are performed using dose optimization technique as appropriate and may include automated exposure control or mA/KV adjustment according to patient size. FINDINGS: No intracranial hemorrhage, mass or edema. No midline shift or abnormal fluid collection. No large scalp hematoma identified. Chronic sphenoid sinusitis present. No skull fracture. Cervical bodies are normal in height and alignment. No fracture or acute bone finding.No disk space narrowing.No prevertebral soft tissue thickening or paraspinal mass.Central canal detail is inherently limited on CT imaging. CT chest shows no pneumothorax, pulmonary contusion or pleural fluid collection. No mediastinal hematoma and the aorta and pulmonary arteries are unremarkable. No chest will mass or abnormal axillary finding. No acute bone finding. Posterior decompression surgical changes are evident in the T9-T12 region. Lower lumbar and SI joint degenerative changes are present. No displaced rib fracture or acute rib finding identified. CT abdomen and pelvis show no injury to solid abdominal viscera. Gallbladder and biliary tree are unremarkable. No bowel injury or significant finding. No free air, free fluid or abnormal stranding. No hernia, mass or bulky lymphadenopathy. No urinary bladder abnormality. IMPRESSION: No significant CT Head finding. No significant CT cervical spine finding. No significant CT Chest finding. No significant CT Abdomen and Pelvis finding. MRI Brain: COMPARISON: 05/05/2014, head CT 01/15/2021 TECHNIQUE: Sagittal and axial T1-weighted images were obtained. Axial PD/heavily T2-weighted and T2-FLAIR images were obtained along with axial DWI/ADC mapping sequences. Axial and coronal post-contrast T1-weighted images were also obtained. FINDINGS: No intracranial hemorrhage, mass or acute infarction. There is no edema or shift of midline structures. No extra-axial fluid collections. Ng-matter/white matter junction is preserved. Signal voids are seen as a normal finding in the major intracranial vessels. Post-contrast images show normal enhancement. No dural thickening. Opacified left sphenoid sinus. Mild ethmoid air cell thickening. Trace right maxillary sinus thickening. IMPRESSION: No acute intracranial abnormality. No evidence of acute infarct. No abnormal enhancement. MRA Brain: COMPARISON: Brain W/Wo Cont dated 11/26/2016; MRI BRAIN WITHOUT CONTRAST dated 05/05/2014; Head C Spine Cap Wo Con dated 01/15/2021 FINDINGS: 3D noncontrast [id number] MR angiography of the [place] was performed. Opacified left sphenoid sinus. No aneurysm, flow-limiting stenosis or vascular malformation is seen. Forward flow seen in codominant vertebral arteries. The visualized dural venous sinuses appear patent. IMPRESSION: No significant flow abnormality of the [place] is identified. No aneurysm. MRA Neck: COMPARISON: No comparisons FINDINGS: Contrast enhance 2D [id number] MR angiography of the neck vessels was performed. Bilateral carotid systems are widely patent. The left vertebral artery is partially obscured proximally. This is favored to be artifact. The vertebral arteries are codominant. IMPRESSION: No hemodynamically significant stenosis identified within the neck. Presumed artifact at the proximal left vertebral artery Carotid doppler: COMPARISON: No comparisons TECHNIQUE: Real-time sonographic evaluation of both carotid systems was performed. Doppler interrogation was performed with waveform tracing bilaterally. FINDINGS: Normal high resistance waveforms are noted in both external carotid arteries. The common carotid arteries and internal carotid arteries show normal low resistance waveforms. Mild soft plaque at the left carotid bulb. Peak systolic and end diastolic velocity values and the ICA/CCA ratios are in the non-hemodynamically significant range. Antegrade flow seen in both vertebral arteries. IMPRESSION: Mild soft plaque at the left carotid bulb. No evidence of a hemodynamically significant stenosis. ECHO: CARDIAC HISTORY: CATHERIZATION: NO SURGERY: NO PROSTHETIC VALVE: NO PACEMAKER: NO MEASUREMENTS (cm) DIASTOLIC (NORMALS) SYSTOLIC (NORMALS) IVSd 1.3 (0.6-1.2) LA Diam 2.0 (1.9-4.0) LVEF 73% LVIDd 3.4 (3.5-5.7) LVIDs 2.0 (2.0-3.5) %FS 41% LVPWd 1.3 (0.6-1.2) Ao Diam 3.2 (2.0-3.7) 2 DIMENSIONAL ASSESSMENT: RIGHT ATRIUM: NORMAL LEFT ATRIUM: NORMAL RIGHT VENTRICLE: NORMAL LEFT VENTRICLE: LEFT VENTRICULAR HYPERTROPHY TRICUSPID VALVE: NORMAL MITRAL VALVE: MITRAL ANNULAR CALCIFICATION PULMONIC VALVE: NORMAL AORTIC VALVE: SCLEROSIS PERICARDIAL EFFUSION: NONE AORTIC ROOT: NORMAL LEFT VENTRICULAR WALL MOTION: NORMAL. DOPPLER/COLOR FLOW: MILD TRICUSPID REGURGITATION. COMMENTS: LEFT VENTRICULAR HYPERTROPHY. NORMAL EJECTION FRACTION. MILD TRICUSPID REGURGITATION. MITRAL ANNULAR CALCIFICATION. AORTIC SCLEROSIS. Medical Problem List: Syncope with dizziness likely related to UTI UTI complicated with history of drug-resistant bacteria and chronic Valera ca theter, urine culture shows gram-negative rods Diabetes mellitus type 2 with hyperglycemia Hypertension Hyperlipidemia Hypothyroidism Gout Acute on chronic renal disease stage III History of spinal stroke with paraplegia Brief History of Present Illness: 55-year-old male with history of paraplegia secondary to spinal stroke, diabetes mellitus type 2, hypertension, hyperlipidemia, gout, CKD 3 presents the emergency department for dizziness, syncope. Patient was at home alone in his wheelchair around 1500 today when he began to experience sudden severe dizziness, patient then fell out of wheelchair face first. Patient denies recollection of the events surrounding injury other than this suspect syncope with loss of consciousness. Patient was evaluated emergency room. Patient admitted for treatment. Patient also found to have UTI. Hospital Course: Patient presented with syncope and dizziness. This was likely related to UTI and mild dehydration. Patient given IV fluids and antibiotic treatment. Patient was also evaluated for stroke. CT head unremarkable. MRI unremarkable. MRA unremarkable. Patient was seen and evaluated by neurology. Neurology suspected vertigo complicated with UTI. Patient was given meclizine with improvement. Patient with history of chronic Valera catheter and prior drug- resistant bacteriaUTI. Urine culture was positive for Serratia. Multiple sensitivities were noted. Patient has done well with IV antibiotic therapy and treatment. At discharge patient will continue with Levaquin 500 mg daily for 5 more days to complete treatment. Valera catheter was changed during the course of his stay. Recommend follow-up with urology to follow-up this hospitalization and further address his condition. Urology had recommended suprapubic catheter in the past. This may need to be reconsidered. Follow-up with PCP in 1 week to follow-up hospitalization. At discharge patient will also continue with meclizine 25 mg 3 times a day as needed for dizziness. A limited supply will be provided. Patient with diabetes mellitus type 2 with hyperglycemia. Hemoglobin A1c 11.1. Blood sugar remained stable. At discharge patient will continue with Levemir 40 units subcu twice daily. Recommend to maintain blood sugar less than 140 fasting less than 200 for meals. If blood sugar remains above 200 recommend to increase Lantus by 1 to 2 units for better control. Recommend to recheck hemoglobin A1c every 3 months to monitor his progress. Recommend follow-up with PCP to further monitor and address his condition. Patient with hypertension. Medications were adjusted and added during the course of his stay for better control. Lasix was discontinued. Additional medication includes Norvasc. At discharge patient will continue with carvedilol 12.5 mg 1 pill twice daily, Norvasc 10 mg daily and lisinopril 40 mg 1 pill daily. Recommend to maintain blood pressure less than 130/80. If blood pressure remains above 140/90 further adjustment may be required. This can be done with the help of his PCP. Patient with hyperlipidemia. At discharge patient will continue with Lipitor 40 mg daily. Patient with hypothyroidism. At discharge patient will continue with levothyroxine 150 mcg daily. Patient with history of gout. At discharge patient will continue with his medicationcolchicine as needed. Patient with acute on chronic renal disease stage III. Patient received IV fluids with improvement. Patient seen and evaluated by nephrology. Recommend to recheck labBMP in 1 week to monitor his progress. Patient may follow-up with nephrology in outpatient to further monitor and address. Future medications need to be renally dosed. Recommend no further use of nonsteroidal anti-inflammatories. Patient with history of spinal stroke with paraplegia below the waist. Fall precautions in place. At discharge patient may continue with aspirin 81 mg daily and folic acid 1 mg daily Vital Signs/Physical Exam: Temp Pulse Resp BP Pulse Ox 98.6 F 75 16 156/81 H 94 01/19/21 08:28 01/19/21 08:28 01/19/21 08:28 01/19/21 08:28 01/19/21 08:28 General: Alert, In no apparent distress, Oriented x3, Cooperative HEENT: Atraumatic Neck: Supple Respiratory: Clear to auscultation bilaterally, Normal air movement Cardiovascular: Normal pulses, Regular rate/rhythm Gastrointestinal: Normal bowel sounds, No tenderness, No masses, No rebound, No guarding Musculoskeletal: Other (Patient with history of paraplegia below the waist.) Neurological: Abnormal strength Urinary: Other (Chronic Valera catheter in place) Laboratory Data at Discharge: WBC 6.30 K/uL (4.3-10.9) 01/19/21 04:19 Hgb 14.0 g/dL (13.6-17.9) 01/19/21 04:19 Hct 41.2 % (39.6-49.0) 01/19/21 04:19 Plt Count 125 K/uL (152-406) L 01/19/21 04:19 PT 10.9 SECONDS (9.5-12.5) 01/15/21 19:00 INR 0.95 01/15/21 19:00 Sodium 139 mmol/L (136-145) 01/19/21 04:19 Potassium 3.9 mmol/L (3.5-5.1) 01/19/21 04:19 BUN 21 mg/dL (7-18) H 01/19/21 04:19 Creatinine 1.12 mg/dL (0.55-1.3) 01/19/21 04:19 Glucose 178 mg/dL (74-106) H 01/19/21 04:19 Phosphorus 3.0 mg/dL (2.5-4.9) 01/19/21 04:19 Magnesium 1.9 mg/dL (1.8-2.4) 01/19/21 04:19 Total Bilirubin 0.4 mg/dL (0.2-1.0) 01/16/21 02:00 AST 32 U/L (15-37) 01/16/21 02:00 ALT 45 U/L (12-78) 01/16/21 02:00 Alkaline Phosphatase 108 U/L (45-117) 01/16/21 02:00 Troponin I < 0.02 ng/mL (0.0-0.045) 01/16/21 09:19 Triglycerides 375 mg/dL (<150) H 01/16/21 02:00 Cholesterol 105 mg/dL (<200) 01/16/21 02:00 HDL Cholesterol 25 mg/dL (40-60) L 01/16/21 02:00 Cholesterol/HDL Ratio 4.20 01/16/21 02:00 Home Medications: Atorvastatin Calcium 1 tab PO DAILY 01/15/21 Colchicine 1 tab PO BID 01/15/21 Insulin Detemir [Levemir Flextouch] 40 units SQ BID 01/15/21 Levothyroxine Sodium [Euthyrox] 1 tab PO DAILY 01/15/21 Lisinopril [Zestril] 1 tab PO DAILY 01/15/21 Amlodipine [Norvasc*] 10 mg PO DAILY #30 tab 01/19/21 Aspirin [Aspirin EC 81 MG] 81 mg PO DAILY #90 tablet. 01/19/21 Folic Acid 1 mg PO DAILY #90 tablet 01/19/21 Meclizine HCl [Antivert*] 25 mg PO Q6H PRN #5 tab 01/19/21 carvediloL [Coreg*] 12.5 mg PO BID 6AM 6PM #60 tab 01/19/21 levoFLOXacin [Levaquin*] 500 mg PO DAILY #5 tab 01/19/21 New Medications: Meclizine HCl [Antivert*] 25 mg PO Q6H PRN #5 tab PRN Reason: Dizziness Aspirin [Aspirin EC 81 MG] 81 mg PO DAILY #90 tablet. carvediloL [Coreg*] 12.5 mg PO BID 6AM 6PM #60 tab Folic Acid 1 mg PO DAILY #90 tablet levoFLOXacin [Levaquin*] 500 mg PO DAILY #5 tab Amlodipine [Norvasc*] 10 mg PO DAILY #30 tab Physician Discharge Instructions: Patient presented with syncope and dizziness. This was likely related to UTI and mild dehydration. Patient given IV fluids and antibiotic treatment. Patient was also evaluated for stroke. CT head unremarkable. MRI unremarkable. MRA unremarkable. Patient was seen and evaluated by neurology. Neurology suspected vertigo complicated with UTI. Patient was given meclizine with improvement. Patient with history of chronic Valera catheter and prior drug- resistant bacteriaUTI. Urine culture was positive for Serratia. Multiple sensitivities were noted. Patient has done well with IV antibiotic therapy and treatment. At discharge patient will continue with Levaquin 500 mg daily for 5 more days to complete treatment. Valera catheter was changed during the course of his stay. Recommend follow-up with urology to follow-up this hospitalization and further address his condition. Urology had recommended suprapubic catheter in the past. This may need to be reconsidered. Follow-up with PCP in 1 week to follow-up hospitalization. At discharge patient will also continue with meclizine 25 mg 3 times a day as needed for dizziness. A limited supply will be provided. Patient with diabetes mellitus type 2 with hyperglycemia. Hemoglobin A1c 11.1. Blood sugar remained stable. At discharge patient will continue with Levemir 40 units subcu twice daily. Recommend to maintain blood sugar less than 140 fasting less than 200 for meals. If blood sugar remains above 200 recommend to increase Lantus by 1 to 2 units for better control. Recommend to recheck hemoglobin A1c every 3 months to monitor his progress. Recommend follow-up with PCP to further monitor and address his condition. Patient with hypertension. Medications were adjusted and added during the course of his stay for better control. Lasix was discontinued. Additional medication includes Norvasc. At discharge patient will continue with carvedilol 12.5 mg 1 pill twice daily, Norvasc 10 mg daily and lisinopril 40 mg 1 pill daily. Recommend to maintain blood pressure less than 130/80. If blood pressure remains above 140/90 further adjustment may be required. This can be done with the help of his PCP. Patient with hyperlipidemia. At discharge patient will continue with Lipitor 40 mg daily. Patient with hypothyroidism. At discharge patient will continue with le vothyroxine 150 mcg daily. Patient with history of gout. At discharge patient will continue with his medicationcolchicine as needed. Patient with acute on chronic renal disease stage III. Patient received IV fluids with improvement. Patient seen and evaluated by nephrology. Recommend to recheck labBMP in 1 week to monitor his progress. Patient may follow-up with nephrology in outpatient to further monitor and address. Future medications need to be renally dosed. Recommend no further use of nonsteroidal anti-inflammatories. Patient with history of spinal stroke with paraplegia below the waist. Fall precautions in place. At discharge patient may continue with aspirin 81 mg daily and folic acid 1 mg daily Diet: ADA Activity: Fall precautions Followup: Unknown,U [Primary Care Provider] - Time spent managing pt's care (in minutes): 55
[2021-01-19] MEDS ORDERED: POTASSIUM CL SA 10 MEQ TAB PO ONE (09:00)
[2021-01-19] MEDS ORDERED: levoFLOXacin 500 MG TAB PO SCH (09:00)
[2021-01-19] MEDS: FOLIC ACID 1 MG TABLET PO SCH (09:11)
[2021-01-19] MEDS: lisinopriL 20 MG TAB PO SCH (09:11)
[2021-01-19] MEDS: ASPIRIN EC 81 MG TAB PO SCH (09:11)
[2021-01-19] MEDS: HEPARIN 5000 UNIT/ML 1 ML VIAL SQ SCH (09:12)
[2021-01-19] MEDS: ACETAMINOPHEN 500 MG TAB PO PRN (09:12)
[2021-01-19] MEDS: AMLODIPINE 10 MG TAB PO SCH (09:12)
[2021-01-19] MEDS: INSULIN GLARGINE 100 UNITS/ML SQ SCH (09:13)
--- NOTE | 2021-01-19 15:12 | PN ---
Date of Progress Note: 01/19/2021 Subjective: The patient was admitted with acute kidney injury secondary to prerenal, dehydration, gutierrez pported with dizziness. The patient was started on IV hydration. Kidney function has been improved. The patient feeling much better. Physical Examination: Vital Signs: When I saw the patient, the patient lying in bed. Blood pressure 156/81, pulse of 75, afebrile. Chest: Clear to auscultation. Heart: S1, S2. Regular. Abdomen: Soft, nontender. Extremities: No edema. Neuro: Alert, paraplegic fully. Laboratory Data: H and H 14/.2. Sodium 139, potassium 3.9, bicarb 27, BUN 21, creatinine 1.1, GFR of 68, calcium 9.3, phosphorus 3, magnesium 1.9, PC ratio of 3 g. Current Medications: The patient on include; meropenem, aspirin, atorvastatin, carvedilol, lisinopri l, folic acid, and levothyroxine. Assessment And Plan: 1.Acute kidney injury on chronic kidney disease, stage 2 secondary to hypertension, nephrosclerosis, prerenal recovered, resolved back to baseline. 2.Chronic kidney disease, stage 2. Normal-size kidney with nephrotic range of proteinuria secondary to chronic obstruction, questionable focal segmental glomerulosclerosis. Recovering very well. Ser um protein electrophoresis is still pending. We will follow up as outpatient. 3.Vitamin D deficiency. The patient needs to be started on vitamin D. 4.Hypertension, controlled, optimal. Continue KATHY inhibitor. 5.Diabetes as by primary. EUN/SNOW Voice ID: [id number] Report ID: [id number]
--- OUTSIDE RECORDS SUMMARY | 2021-01-19 18:16 | XMS REPORT | Continuity of Care Document ---
:1965 Author Organization [facility] t Address [address] [place] [address] Care Team Providers Name Role Phone FAITH GOMEZ Attending Clinician Unavailable ILIANA GOMEZ Admitting Clinician Unavailable Problems This patient has no known problems. Allergies, Adverse Reactions, Alerts Allergy Allergy Status Severity Reaction(s) Onset Inactive Treating Comm ents Source Name Type Date Date Clinician IBUPROFE [facility]MI [facility] Medications This patient has no known medications. Procedures This patient has no known procedures. Encounters Start End Encounter Admission Attending Care Care Encounter Source Date/Time Date/Time Type Type Clinicians Facility Department ID 2021-01-11 2021-01-11 ambulatory [facility] [id number] [facility] 2020-06-15 2020-06-15 Outpatient [facility] [id number] 00:09:00 00:09:00 irais braxton [facility] 2020-02-14 2020-02-14 Outpatient [facility] [id number] [facility] 2020-02-07 2020-02-07 Outpatient [facility] [id number] [facility] 2020-01-17 2020-01-17 Outpatient [facility] [id number] [facility] 2020-01-16 2020-01-16 Outpatient [facility] [id number] [facility] 2020-01-09 2020-01-09 Outpatient [facility] [id number] [facility] Results Test Description Test Time Test Comments Results Result Comments Source BLOOD CULTURE 2016-07-07 14:28:00 Test Item Value Reference Range Interpretation Comme nts [facility] (test code = 1095) No growth in 5 days POCT-GLUCOSE [id number] 12:04:00 Test Item Value Reference Range Interpretation Comments POC-GLUCOSE METER 179 mg/dL 70-110 H TESTED AT [facility] 6720 ([facility]) (test code = [place] 1538) [address] BASIC METABOLIC [id number] 09:51:00 Test Item Value Reference Range Interpretation [...] PATIEN TS. CBC W/PLT COUNT & AUTO [id number] 09:20:00 Test Item Value Reference Range Interpretation [...] L 0.00-0.20 (test code = 417) 0.00POCT-GLUCOSE [id number] 07:15:00 Test Item Value Reference Range Interpretation Comments POC-GLUCOSE METER 246 mg/dL 70-110 H TESTED AT [place] [address] ([facility]) (test code = ADOLFO Willett [facility] 1538) [address] POCT-GLUCOSE [id number] 21:12:00 Test Item Value Reference Range Interpretation Comments POC-GLUCOSE METER 89 mg/dL 70-110 TESTED AT [place] [address] ([facility]) (test code = BANNER Tamie [facility] [address] 1538) POCT-GLUCOSE [id number] 17:12:00 Test Item Value Reference Range Interpretation Comments POC-GLUCOSE METER 217 mg/dL 70-110 H TESTED AT [place] [address] ([facility]) (test code = BANNER Tamie [facility] 1538) 35180 URINE [id number] 12:07:00 Test Item Value Reference Range Interpretation Comments CULTURE ([facility]) (test <10,000 col/mL skin code = 1095) candi POCT-GLUCOSE [id number] 11:30:00 Test Item Value Reference Range Interpretation Comments POC-GLUCOSE METER 205 mg/dL 70-110 H TESTED AT [place] [address] ([facility]) (test code = [facility] 1538) 35637 POCT-GLUCOSE [id number] 07:36:00 Test Item Value Reference Range Interpretation Comments POC-GLUCOSE METER 195 mg/dL 70-110 H TESTED AT [place] [address] ([facility]) (test code = [facility] 1538) 85245 CBC W/PLT COUNT & AUTO [id number] 05:14:00 Test Item Value Reference Range Interpretation Comments WHITE BLOOD CELL COUNT ([facility]) 6.7 K/ L 4.0-10.0 (test code = 775) RED BLOOD CELL COUNT ([facility]) 4.40 M/ L 4.20-5.80 (test code = 761) HEMOGLOBIN ([facility]) (test code = 13.3 GM/DL 13.0-16.8 410) HEMATOCRIT ([facility]) (test code = 38.2 % 40.0-50.0 L 411) MEAN CORPUSCULAR VOLUME ([facility]) 86.8 fL 82.0-98.0 (test code = 753) [...] 0.00-0.20 (test code = 417) 0.00BASIC METABOLIC [id number] 05:14:00 Test Item Value Reference Range Interpretation [...] 358) GLUCOSE RANDOM 216 mg/dL 70-105 H ([facility]) (test code = 652) CALCIUM (BEAKER) 8.8 mg/dL 8.4-10.2 (test code = 697) EGFR ([facility]) (test 67 mL/min/1.73 ESTIMA FAYE GFR IS code = 1092) sq m NOT ACCURATE CREATININE CLEARANCE IN PREDICTING GLOMERULAR FILTRATION RATE . ESTIMATED GFR I S NOT APPLICABLE FOR DIALYSIS PATIEN TS. POCT-GLUCOSE [id number] 21:04:00 Test Item Value Reference Range Interpretation Comments POC-GLUCOSE METER 178 mg/dL 70-110 H TESTED AT [place] [address] ([facility]) (test code = [facility] 1538) 45063 POCT-GLUCOSE [id number] 17:07:00 Test Item Value Reference Range Interpretation Comments POC-GLUCOSE METER 88 mg/dL 70-110 TESTED AT [place] [address] ([facility]) (test code = [facility] [address] 1538) POCT-GLUCOSE [id number] 12:30:00 Test Item Value Reference Range Interpretation Comments POC-GLUCOSE METER 107 mg/dL 70-110 TESTED AT [place] [address] ([facility]) (test code = [facility] 1538) 21070 POCT-GLUCOSE [id number] 07:46:00 Test Item Value Reference Range Interpretation Comments POC-GLUCOSE METER 169 mg/dL 70-110 H TESTED AT [place] [address] ([facility]) (test code = [facility] 1538) 84284 CBC W/PLT COUNT & AUTO [id number] 07:42:00 Test Item Value Reference Range Interpretation Comments WHITE BLOOD CELL COUNT ([facility]) 6.5 K/ L 4.0-10.0 (test code = 775) RED BLOOD CELL COUNT ([facility]) 4.57 M/ L 4.20-5.80 (test code = 761) HEMOGLOBIN (BEAKER) (test code = 13.4 GM/DL 13.0-16.8 410) HEMATOCRIT ([facility]) (test code = 40.4 % 40.0-50.0 411) MEAN CORPUSCULAR VOLUME ([facility]) 88.3 fL 82.0-98.0 (test code = 753) [...] 0.00-0.20 (test code = 417) 0.00BASIC METABOLIC [id number] 06:13:00 Test Item Value Reference Range Interpretation [...] NOT APPLICABLE FOR DIALYSIS PATIEN TS. POCT-GLUCOSE [id number] 22:12:00 Test Item Value Reference Range Interpretation Comments POC-GLUCOSE METER 238 mg/dL 70-110 H TESTED AT [facility] 6720 (BEAKER) (test code = [facility] 1538) 0[address]83 POCT-GLUCOSE [id number] 17:25:00 Test Item Value Reference Range Interpretation Comments POC-GLUCOSE METER 102 mg/dL 70-110 TESTED AT [facility] 67 (BEAKER) (test code = [facility] 1538) 17728 URINALYSIS W/ [id number] 12:50:00 Test Item Value Reference Range Interpretation [...] /HPF SOURCE(BEAKER) (test code = 2795) POCT-GLUCOSE [id number] 12:04:00 Test Item Value Reference Range Interpretation Comments POC-GLUCOSE METER 226 mg/dL 70-110 H TESTED AT [facility] 6720 (BEAKER) (test code = [place] 1538) [address] POCT-GLUCOSE [id number] 08:00:00 Test Item Value Reference Range Interpretation Comments POC-GLUCOSE METER 300 mg/dL 70-110 H TESTED AT [facility] 6720 (BEAKER) (test code = AD[place] 1538) [address] BASIC METABOLIC [id number] 06:50:00 Test Item Value Reference Range Interpretation [...] PATIEN TS. CBC W/PLT COUNT & AUTO [id number] 06:01:00 Test Item Value Reference Range Interpretation [...] L 0.00-0.20 (test code = 417) 0.00POCT-GLUCOSE [id number] 21:25:00 Test Item Value Reference Range Interpretation Comments POC-GLUCOSE METER 279 mg/dL 70-110 H TESTED AT [facility] 6720 (BEAKER) (test code = [place] 1538) [address]40 HEMOGLOBIN [id number] 21:13:00 Test Item Value Reference Range Interpretation Comments HEMOGLOBIN A1C (BEAKER) (test code = 10.7 % 4.3-6.1 H 368) CBC W/PLT COUNT & AUTO [id number] 20:47:00 Test Item Value Reference Range Interpretation [...] L 0.00-0.20 (test code = 417) 0.00POCT-GLUCOSE [id number] 18:31:00 Test Item Value Reference Range Interpretation Comments POC-GLUCOSE METER 205 mg/dL 70-110 H TESTED AT [facility] 6720 ([place]) (test code = [place]FO [place] 0259) [address]
[2021-01-21 19:02] LABS: Albumin, (SPE) 3.4 g/dL (3.8-4.8); Alpha-1-Globulins 0.3 g/dL (0.2-0.3); Alpha-2-Globulins 0.8 g/dL (0.5-0.9); Gamma Globulins 0.8 g/dL (0.8-1.7); INTERPRETATION REPORT
== END 2021-01-19 10:09 | disposition home or self-care (01) | DRG 699 ==
LOC: ER 16:39 → ERHOLD 22:35 → INTOOBSV 22:35 → OBSVTOIN 22:35 → ERHOLD 01-16 07:23 → OBSVTOIN 01-16 11:17 → 2ND 01-16 12:23
PROVIDERS: ADMIT Family Medicine; ATTEND Family Medicine
DX: T83.511A Infection and inflammatory reaction due to indwelling urethral catheter, initial encounter (principal); G82.20 Paraplegia, unspecified; N17.9 Acute kidney failure, unspecified; N39.0 Urinary tract infection, site not specified; E86.0 Dehydration; K21.9 Gastro-esophageal reflux disease without esophagitis; E03.9 Hypothyroidism, unspecified; E78.5 Hyperlipidemia, unspecified; M10.9 Gout, unspecified; I12.9 Hypertensive chronic kidney disease with stage 1 through stage 4 chronic kidney disease, or unspecified chronic kidney disease; N18.30 Chronic kidney disease, stage 3 unspecified; E11.22 Type 2 diabetes mellitus with diabetic chronic kidney disease; E11.65 Type 2 diabetes mellitus with hyperglycemia; E55.9 Vitamin D deficiency, unspecified; I25.10 Atherosclerotic heart disease of native coronary artery without angina pectoris; H81.10 Benign paroxysmal vertigo, unspecified ear; N28.9 Disorder of kidney and ureter, unspecified; N13.9 Obstructive and reflux uropathy, unspecified; N31.2 Flaccid neuropathic bladder, not elsewhere classified; B96.89 Other specified bacterial agents as the cause of diseases classified elsewhere; Z79.4 Long term (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; Z88.8 Allergy status to other drugs, medicaments and biological substances; Z79.899 Other long term (current) drug therapy; Z79.82 Long term (current) use of aspirin; Z79.890 Hormone replacement therapy; Z86.73 Personal history of transient ischemic attack (TIA), and cerebral infarction without residual deficits; Z20.822 Contact with and (suspected) exposure to COVID-19
CPT/HCPCS: 36415; 70450; 70544; 70549; 70553; 71250; 72125; 80048; 80053; 80061; 80069; 80076; 81003; 81015; 82306; 82570; 82947; 83036; 83605; 83735; 83880; 83970; 84145; 84156; 84165; 84439; 84443; 84484; 85025; 85610; 87040; 87077; 87086; 87088; 87186; 93005; 93306; 93880; 96361; 96374; 99284; G0378; J1644; J1815; J2185; J2405; J3480; J7030; U0003

== ENCOUNTER 2021-05-31 14:58 | Inpatient (IN) | payer MEDICARE, OTHER ==
--- OUTSIDE RECORDS SUMMARY | 2021-05-31 15:02 | XMS REPORT | Continuity of Care Document ---
:1965 Author Organization [facility] t Address [address] [place] [address] Care Team Providers Name Role Phone Ramon Powers Attending Clinician Unavailable Trevino_M Attending Clinician Unavailable CURRY_S Attending Clinician Unavailable CHARLY Attending Clinician Unavailable ILIANA GOMEZ Attending Clinician Unavailable Trevino_M Admitting Clinician Unavailable CURRChauncey_S Admitting Clinician Unavailable CHARLY Admitting Clinician Unavailable ILIANA GOMEZ Admitting Clinician Unavailable Payers Payer Name Policy Type Policy Number Effective Date Expiration Date S [facility] [id number] 2020 (MEDICARE 00:00:00 REPLACEMENT HMO) Problems This patient has no known problems. Allergies, Adverse Reactions, Alerts Allergy Allergy Status Severity Reaction(s) Onset Inactive Treating Comm ents Source Name Type Date Date Clinician IBUPROFE [facility]FORMI [facility] Medications This patient has no known medications. Procedures This patient has no known procedures. Encounters Start End Encounter Admission Attending Care Care Encounter Source Date/Time Date/Time Type Type Clinicians Facility Department ID 2021-04-03 Outpatient Powers, [facility] [id number] 14:09:15 Ramon 89918Ramírez [facility] 2021-04-03 Outpatient STLMLC STLMLC [id number] [facility] 12:01[facility]03 [id number] [facility] 2021-04-23 2021-04-23 Outpatient Trevino_M DMG DMG [id number] -2021 [facility]:00:00 08:00:00 0215 [facility] 2021-03-12 2021-03-12 Outpatient Trevino_M DMG DMG [id number] -2021 [facility] 03:11:00 03:11:00 0104 [facility] 2021-02-11 2021-02-11 Outpatient CURRY_S DMG DMG [id number] [facility] 05:35:00 05:35:00 1206 [facility] 2021-02-11 2021-02-11 ambulatory [facility]LMLC STLC [id number] [facility] 2021-01-11 2021-01-11 ambulatory [facility]LMLC [facility] [id number] [facility] 2020-06-15 2020-06-15 [id number] 00:09[facility]00 19:09:00 [facility] 2020-02-14 2020-02-14 Outpatient STLMLC STLC [id number] [facility] 2020-02-07 2020-02-07 Outpatient [facility] [id number] [facility] 2020-01-17 2020-01-17 Outpatient STLMLC [facility]LMLC [id number] [facility] 2020-01-16 2020-01-16 Outpatient [facility]LMLC [facility]LML[facility] [id number] [facility] 2020-01-09 2020-01-09 Outpatient STLMLC [facility] [id number] [facility] Results Test Description Test Time Test Comments Results Result Comments Source BLOOD CULTURE 2016-07-07 14:28:00 Test Item Value Reference Range Interpretation Comme nts CULTURE (BEAKER) (test code = 1095) No growth in 5 days POCT-GLUCOSE [id number] 12:04:00 Test Item Value Reference Range Interpretation Comments POC-GLUCOSE METER 179 mg/dL 70-[address] [facility] 6720 (BEAKER) (test code = [place] 1538) [address] BASIC METABOLIC [id number] 09:51:00 Test Item Value Reference Range Interpretation [...] PATIEN TS. CBC W/PLT COUNT & AUTO [id number] 09:20:00 Test Item Value Reference Range Interpretation [...] L 0.00-0.20 (test code = 417) 0.00POCT-GLUCOSE [id number] 07:15:00 Test Item Value Reference Range Interpretation Comments POC-GLUCOSE METER 246 mg/dL 70-110 H TESTED AT [place] [address] ([facility]) ([facility] 1538) 9[address] POCT-GLUCOSE [id number] 21:12:00 Test Item Value Reference Range Interpretation Comments POC-GLUCOSE METER 89 mg/dL 70-110 TESTED AT [place] [address] ([facility]) (test code = [facility] Tamie [facility] [address] 1538) POCT-GLUCOSE [id number] 17:12:00 Test Item Value Reference Range Interpretation Comments POC-GLUCOSE METER 217 mg/dL 70-[address] [facility] 67 ([facility]) (test code = ADOLFO Willett [place] 1538) [address]351 URINE [id number] 12:07:00 Test Item Value Reference Range Interpretation Comments CULTURE (BEAKER) (test <10,000 col/mL skin code = 1095) candi POCT-GLUCOSE [id number] 11:30:00 Test Item Value Reference Range Interpretation Comments POC-GLUCOSE METER 205 mg/dL 70-110 H TESTED AT [place] [address] ([facility]) (test code = ADOLFO Willett [place] 1538) [address]377 POCT-GLUCOSE [id number] 07:36:00 Test Item Value Reference Range Interpretation Comments POC-GLUCOSE METER 195 mg/dL 70-110 H TESTED AT [place] [address] ([facility]) (test code = ADOLFO Willett [place] 1538) 79683 CBC W/PLT COUNT & AUTO [id number] 05:14:00 Test Item Value Reference Range Interpretation [...] 0.00-0.20 (test code = 417) 0.00BASIC METABOLIC [id number] 05:14:00 Test Item Value Reference Range Interpretation [...] NOT APPLICABLE FOR DIALYSIS PATIEN TS. POCT-GLUCOSE [id number] 21:04:00 Test Item Value Reference Range Interpretation Comments POC-GLUCOSE METER 178 mg/dL 70-110 H TESTED AT [place] [address] ([facility]) (test code = ADOLFO Willett [place] 1538) [address] POCT-GLUCOSE [id number] 17:07:00 Test Item Value Reference Range Interpretation Comments POC-GLUCOSE METER 88 mg/dL 70-110 TESTED AT [place] [address] ([facility]) (test code = [place] [address] 1538) POCT-GLUCOSE [id number] 12:30:00 Test Item Value Reference Range Interpretation Comments POC-GLUCOSE METER 107 mg/dL 70-110 TESTED AT [place] [address] ([facility]) (test code = ADOLFO Willett [place] 1538) [address] POCT-GLUCOSE [id number] 07:46:00 Test Item Value Reference Range Interpretation Comments POC-GLUCOSE METER 169 mg/dL 70-110 H TESTED AT [place] [address] ([facility]) (test code = ADOLFO Willett [place] 1538) 86066 CBC W/PLT COUNT & AUTO [id number] 07:42:00 Test Item Value Reference Range Interpretation [...] 0.00-0.20 (test code = 417) 0.00BASIC METABOLIC [id number] 06:13:00 Test Item Value Reference Range Interpretation [...] NOT APPLICABLE FOR DIALYSIS PATIEN TS. POCT-GLUCOSE [id number] 22:12:00 Test Item Value Reference Range Interpretation Comments POC-GLUCOSE METER 238 mg/dL 70-110 H TESTED AT [place] [address] (BEAKER) (test code = AD[place] 1538) [address] POCT-GLUCOSE [id number] 17:25:00 Test Item Value Reference Range Interpretation Comments POC-GLUCOSE METER 102 mg/dL 70-110 TESTED AT [place] [address] (BEAKER) (test code = G[place] 1538) [address] URINALYSIS W/ [id number] 12:50:00 Test Item Value Reference Range Interpretation [...] /HPF SOURCE(BEAKER) (test code = 2795) POCT-GLUCOSE [id number] 12:04:00 Test Item Value Reference Range Interpretation Comments POC-GLUCOSE METER 226 mg/dL 70-110 H TESTED AT [place] [address] (BEAKER) (test code = ADOL[place] 1538) [address] POCT-GLUCOSE [id number] 08:00:00 Test Item Value Reference Range Interpretation Comments POC-GLUCOSE METER 300 mg/dL 70-110 H TESTED AT [place] [address] (BEAKER) (test code = AD[place] 1538) [address] BASIC METABOLIC [id number] 06:50:00 Test Item Value Reference Range Interpretation [...] PATIEN TS. CBC W/PLT COUNT & AUTO [id number] 06:01:00 Test Item Value Reference Range Interpretation [...] L 0.00-0.20 (test code = 417) 0.00POCT-GLUCOSE [id number] 21:25:00 Test Item Value Reference Range Interpretation Comments POC-GLUCOSE METER 279 mg/dL 70-[address] [facility] 6720 (BEAKER) (test code = ADOL[place] 1538) 49466 HEMOGLOBIN [id number] 21:13:00 Test Item Value Reference Range Interpretation Comments HEMOGLOBIN A1C (BEAKER) (test code = 10.7 % 4.3-6.1 H 368) CBC W/PLT COUNT & AUTO [id number] 20:47:00 Test Item Value Reference Range Interpretation [...] L 0.00-0.20 (test code = 417) 0.00POCT-GLUCOSE [id number] 18:31:00 Test Item Value Reference Range Interpretation Comments POC-GLUCOSE METER 205 mg/dL 70-[address] [facility] 6720 ([facility]) (test code = ADOLFO ENCARNACION 1538) [address]
[2021-05-31 16:22] LABS: Absolute Lymphocytes (CBC) 1.5 K/uL (0.7-4.9); Hematocrit 40.1 % (39.6-49.0); MPV 10.3 fL (7.6-11.3); RBC Red Blood Cell Count 4.64 M/uL (4.33-5.43)
[2021-05-31 16:35] LABS: Urine Blood 2+ (Negative); Urine Glucose Negative (Negative); Urine Protein 3+ (Negative); Urine Specific Gravity 1.025 (1.005-1.030); Urine pH 5.5 (5.0-7.0)
[2021-05-31 16:41] LABS: Albumin 3.3 g/dL (3.4-5.0); Bilirubin Total 0.4 mg/dL (0.2-1.0); Potassium 3.8 mmol/L (3.5-5.1); Protein, Total 6.7 g/dL (6.4-8.2)
--- NOTE | 2021-05-31 19:32 | EDPHYS ---
Physician Documentation [facility] Name: Ramirez Chaudhari Age: 56 yrs Sex: Male : 1965 Arrival Date: 05/31/2021 Time: 15:00 Bed 19 Private MD: Ramon Powers E ED Physician Brodie Zheng HPI: 05/31 15:35 This 56 yrs old Male presents to ER via Wheelchair with complaints of Abnormal jmm Lab Results. 15:35 The patient presents with urinary symptoms, dysuria. Onset: The symptoms/episode jmm began/occurred gradually, 1 week(s) ago. Modifying factors: The symptoms are alleviated by nothing, the symptoms are aggravated by nothing. Associated signs and symptoms: Pertinent negatives: abdominal pain, fever, hematuria. Patient states he was sent by PCP due to abnormal urine culture results. Patient denies abdominal pain, vomiting, sob, chest pain. . Historical: - Allergies: 15:24 Ibuprofen; ph 15:24 metformin; ph - Home Meds: 15:24 atorvastatin 40 mg Oral tab 1 tab once daily [Active]; Colcrys 0.6 mg Oral tab 1 tab ph bid prn gout [Active]; furosemide 40 mg Oral tab 1 tab once daily [Active]; Levemir 46 units subcutaneous twice a day [Active]; levothyroxine 75 mcg tab 1 tab once daily [Active]; lisinopril 40 mg Oral tab once daily [Active]; Novolog 30 units Sub-Q three times a day [Active]; - PMHx: 15:24 ADD/ADHD; Diabetes - IDDM; GERD; Gout; High Cholesterol; Hydrocele Left Testicle; ph Hypertension; Hypothyroidism; Migraines; Paraplegia; Renal Disease; Spinal Stroke; - Immunization history:: Client reports having NOT received the Covid vaccine. - Social history:: Smoking status: Patient denies any tobacco usage or history of. ROS: 15:35 Constitutional: Negative for fever, chills, and weight loss, Cardiovascular: Negative jmm for chest pain, palpitations, and edema, Respiratory: Negative for shortness of breath, cough, wheezing, and pleuritic chest pain, Abdomen/GI: Negative for abdominal pain, nausea, vomiting, diarrhea, and constipation, Neuro: Negative for headache, weakness, numbness, tingling, and seizure. 15:35 : Positive for urinary symptoms. 15:35 All other systems are negative. Exam: 15:35 Constitutional: This is a well developed, well nourished patient who is awake, alert, jmm and in no acute distress. Head/Face: atraumatic. Eyes: EOMI, no conjunctival erythema appreciated ENT: Moist Mucus Membranes Neck: Trachea midline, Supple Chest/axilla: Normal chest wall appearance and motion. Cardiovascular: Regular rate and rhythm. No edema appreciated Respiratory: Normal respirations, no respiratory distress appreciated Abdomen/GI: Non distended, soft Back: Normal ROM Skin: General appearance color normal 15:35 Neuro: Orientation: is normal, Mentation: is normal, Memory: is normal. 15:35 Psych: Behavior/mood is pleasant, cooperative. Vital Signs: 15:20 BP 139 / 87; Pulse 83; Resp 18; Temp 98.0; Pulse Ox 97% on R/A; Weight 108.86 kg; ph Height 5 ft. 8 in. (172.72 cm); 16:30 BP 115 / 70; Pulse 72; Resp 18 S; Pulse Ox 98% on R/A; Pain 0/10; ag7 17:30 BP 136 / 84; Pulse 73; Resp 18; Pulse Ox 99% on R/A; Pain 0/10; ag7 18:30 BP 145 / 70; Pulse 74; Resp 18; Pulse Ox 99% ; Pain 0/10; ag7 19:00 BP 156 / 95 LA Supine (auto/reg); Pulse 71 MON; Resp 18 S; Temp 98(O); Pulse Ox 99% on tk1 R/A; Pain 0/10; 20:00 BP 159 / 102 LA Supine (auto/reg); Pulse 73 MON; Resp 18 S; Pulse Ox 99% on R/A; Pain tk1 0/10; 21:00 BP 175 / 098 LA Supine (auto/reg); Pulse 69; Resp 18 S; Pulse Ox 99% on R/A; Pain 0/10; tk1 22:00 BP 152 / 80 LA Supine (auto/reg); Pulse 72 MON; Resp 18 S; Pulse Ox 99% on R/A; Pain tk1 0/10; 15:20 Body Mass Index 36.49 (108.86 kg, 172.72 cm) ph MDM: 15:32 Patient medically screened. [facility] 19:30 Data reviewed: vital signs, nurses notes. Counseling: I had a detailed discussion with [facility] the patient and/or guardian regarding: the historical points, exam findings, and any diagnostic results supporting the discharge/admit diagnosis, lab results, radiology results, the need for outpatient follow up, to return to the emergency department if symptoms worsen or persist or if there are any questions or concerns that arise at home. 19:31 Refusal of service: The patient/guardian displays adequate decision making capability [facility] and despite a detailed discussion of alternatives, benefits, risks, and consequences refuses: Admission to the hospital for further work-up and treatment. 19:46 ED course: I discussed the patient with Crystal Francis PA-C whom accepted the patient to [facility] Dr. Perez's service. . 05/31 15:33 Order name: CBC with Diff; Complete Time: 16:32 [facility] 05/31 15:33 Order name: CMP; Complete Time: 16:44 [facility] 05/31 15:33 Order name: Lipase; Complete Time: 16:44 [facility] 05/31 15:33 Order name: Urine Culture [facility] 05/31 15:34 Order name: Procalcitonin; Complete Time: 17:41 [facility] 05/31 15:34 Order name: Lactate; Complete Time: 16:40 [facility] 05/31 15:33 Order name: IV Saline Lock; Complete Time: 16:11 [facility] 05/31 15:33 Order name: Labs collected and sent; Complete Time: 16:10 [facility] 05/31 15:33 Order name: Urine Dipstick-Ancillary (obtain specimen); Complete Time: 16:37 [facility] 05/31 15:34 Order name: Blood Culture Adult (2) [facility] 05/31 16:35 Order name: Urine Dipstick-Ancillary; Complete Time: 16:40 [facility] 05/31 19:48 Order name: SARS-COV-2 RT PCR (Document "Date of Onset" if Symptomatic); Complete Time: [facility] 21:25 Administered Medications: 20:40 Drug: NS 0.9% 500 ml Route: IV; Rate: bolus; Infused Over: 30 mins; Site: right tk1 forearm; Delivery: Primary tubing; 21:40 Follow up: Response: No adverse reaction; IV Status: Completed infusion; IV Intake: tk1 500ml 20:45 Drug: Meropenem 1 grams Route: IV; Rate: calculated rate; Infused Over: 30 mins; Site: tk1 right forearm; Delivery: Primary tubing; 21:15 Follow up: Response: No adverse reaction; IV Status: Completed infusion; IV Intake: tk1 100ml Disposition Summary: 05/31/21 19:48 Hospitalization Ordered Hospitalization Status: Observation [facility] Provider: Devon Perez Location: Telemetry/MedSurg (observation)(05/31/21 19:48) [facility] Condition: Stable(05/31/21 19:48) [facility] Problem: an acute exacerbation [facility] Symptoms: are unchanged [facility] Bed/Room Type: Standard [facility] Room Assignment: 224(05/31/21 21:30) mw Diagnosis - Urinary Tract Infection - Failed Outpatient Therapy [facility] Forms: - Medication Reconciliation Form [facility] - SBAR form [facility] Addendum: 06/03/2021 19:25 Co-signature as Attending Physician, Brodie Zheng MD. r n Signatures: Dispatcher [employer] EDSD Carly Lynn RN RN Florin Danielle PA PA [facility] Brodie Zheng MD MD rn Hall, Patricia, RN RN Nissa Nava tk1 Geneva Mckeon, NORBERTO RN ag7 Corrections: (The following items were deleted from the chart) 05/31 19:32 19:32 Home [facility] 19:32 19:32 Stable [facility] 19:32 19:32 UTI/ Urinary tract infection, site not specified [facility] 21:30 19:48 [facility]
--- NOTE | 2021-05-31 19:32 | ER ---
Nurse's Notes [facility] Name: Ramirez Chaudhari Age: 56 yrs Sex: Male : 1965 Arrival Date: 05/31/2021 Time: 15:00 Bed 19 Private MD: Ramon Powers E Diagnosis: Urinary Tract Infection - Failed Outpatient Therapy Presentation: 05/31 15:20 Chief complaint: Patient states: Sent by PCP for IV antibiotics, reports that urine ph culture results showed that he was not on the right antibiotic and needs something stronger. Coronavirus screen: Vaccine status: Patient reports being unvaccinated. Ebola Screen: No symptoms or risks identified at this time. Initial Sepsis Screen: Does the patient meet any 2 criteria? No. Patient's initial sepsis screen is negative. Does the patient have a suspected source of infection? Yes: Dysuria/Frequency/Urgency/UTI. Risk Assessment: Do you want to hurt yourself or someone else? Patient reports no desire to harm self or others. Onset of symptoms was May 31, 2021. 15:20 Method Of Arrival: Wheelchair ph 15:20 Acuity: NOHEMI 3 ph Historical: - Allergies: 15:24 Ibuprofen; ph 15:24 metformin; ph - Home Meds: 15:24 atorvastatin 40 mg Oral tab 1 tab once daily [Active]; Colcrys 0.6 mg Oral tab 1 tab ph bid prn gout [Active]; furosemide 40 mg Oral tab 1 tab once daily [Active]; Levemir 46 units subcutaneous twice a day [Active]; levothyroxine 75 mcg tab 1 tab once daily [Active]; lisinopril 40 mg Oral tab once daily [Active]; Novolog 30 units Sub-Q three times a day [Active]; - PMHx: 15:24 ADD/ADHD; Diabetes - IDDM; GERD; Gout; High Cholesterol; Hydrocele Left Testicle; ph Hypertension; Hypothyroidism; Migraines; Paraplegia; Renal Disease; Spinal Stroke; - Immunization history:: Client reports having NOT received the Covid vaccine. - Social history:: Smoking status: Patient denies any tobacco usage or history of. Screenin:28 Abuse screen: Denies threats or abuse. Nutritional screening: No deficits noted. ag7 Tuberculosis screening: No symptoms or risk factors identified. Fall Risk No fall in past 12 months (0 pts). No secondary diagnosis (0 pts). IV access (20 points). Ambulatory Aid- None/Bed Rest/Nurse Assist (0 pts). Gait- Impaired (20 pts.). Mental Status- Oriented to own ability (0 pts). Total Valera Fall Scale indicates No Risk (0-24 pts). Assessment: 15:30 General: Appears in no apparent distress. Behavior is calm, cooperative, appropriate ag7 for age. Pain: Denies pain. Neuro: Level of Consciousness is awake, alert, obeys commands, Oriented to person, place, time, situation, Appropriate for age. Cardiovascular: Heart tones S1 S2 present Capillary refill < 3 seconds Clubbing of nail beds is absent Patient's skin is warm and dry. Respiratory: Airway is patent Trachea midline Breath sounds are clear bilaterally. : Valera in place Urine is cloudy, 16:30 Reassessment: No changes from previously documented assessment. Patient and/or family ag7 updated on plan of care and expected duration. Pain level reassessed. Patient is alert, oriented x 3, equal unlabored respirations, skin warm/dry/pink. 17:30 Reassessment: No changes from previously documented assessment. Patient and/or family ag7 updated on plan of care and expected duration. Pain level reassessed. Patient is alert, oriented x 3, equal unlabored respirations, skin warm/dry/pink. Patient denies pain at this time. 18:30 Reassessment: No changes from previously documented assessment. Patient and/or family ag7 updated on plan of care and expected duration. Pain level reassessed. Patient is alert, oriented x 3, equal unlabored respirations, skin warm/dry/pink. 19:45 General: Appears in no apparent distress. obese, well groomed, well developed, well tk1 nourished, Behavior is calm, cooperative, appropriate for age. Pain: Denies pain. Neuro: Level of Consciousness is awake, alert, obeys commands, Oriented to person, place, time, situation, Appropriate for age [employer] are equal bilaterally Moves all extremities. Gait is Paralysis to bilateral lower extremities.. Speech is normal. Cardiovascular: Capillary refill < 3 seconds is brisk in bilateral fingers Patient's skin is warm and dry. Respiratory: Airway is patent Respiratory effort is even, unlabored, Respiratory pattern is regular, symmetrical. GI: No deficits noted. No signs and/or symptoms were reported involving the gastrointestinal system. : Valera in place Urine is cloudy. EENT: No deficits noted. No signs and/or symptoms were reported regarding the EENT system. Derm: No deficits noted. No signs and/or symptoms reported regarding the dermatologic system. Musculoskeletal: No deficits noted. No signs and/or symptoms reported regarding the musculoskeletal system. 22:00 Reassessment: No changes from previously documented assessment. Patient and/or family tk1 updated on plan of care and expected duration. Pain level reassessed. Patient is alert, oriented x 3, equal unlabored respirations, skin warm/dry/pink. Patient denies pain at this time. 23:04 Reassessment: Patient transported via stretcher to 224. tk1 Vital Signs: 15:20 BP 139 / 87; Pulse 83; Resp 18; Temp 98.0; Pulse Ox 97% on R/A; Weight 108.86 kg; ph Height 5 ft. 8 in. (172.72 cm); 16:30 BP 115 / 70; Pulse 72; Resp 18 S; Pulse Ox 98% on R/A; Pain 0/10; ag7 17:30 BP 136 / 84; Pulse 73; Resp 18; Pulse Ox 99% on R/A; Pain 0/10; ag7 18:30 BP 145 / 70; Pulse 74; Resp 18; Pulse Ox 99% ; Pain 0/10; ag7 19:00 BP 156 / 95 LA Supine (auto/reg); Pulse 71 MON; Resp 18 S; Temp 98(O); Pulse Ox 99% on tk1 R/A; Pain 0/10; 20:00 BP 159 / 102 LA Supine (auto/reg); Pulse 73 MON; Resp 18 S; Pulse Ox 99% on R/A; Pain tk1 0/10; 21:00 BP 175 / 098 LA Supine (auto/reg); Pulse 69; Resp 18 S; Pulse Ox 99% on R/A; Pain 0/10; tk1 22:00 BP 152 / 80 LA Supine (auto/reg); Pulse 72 MON; Resp 18 S; Pulse Ox 99% on R/A; Pain tk1 0/10; 15:20 Body Mass Index 36.49 (108.86 kg, 172.72 cm) ph ED Course: 15:00 Patient arrived in ED. am2 15:00 Ramon Powers MD is Private Physician. am2 15:24 Triage completed. ph 15:25 Arm band placed on Patient placed in an exam room. ph 15:27 Florin Danielle PA is PHCP. m 15:27 Brodie Zheng MD is Attending Physician. jmm 15:30 Geneva Mckeon, NORBERTO is Primary Nurse. ag7 16:00 Inserted saline lock: 20 gauge in right forearm, using aseptic technique. Blood eh3 collected. 16:07 Blood Culture Adult (2) Sent. eh3 16:07 Lactate Sent. eh3 16:07 Procalcitonin Sent. eh3 16:08 CBC with Diff Sent. eh3 16:09 CMP Sent. eh3 16:09 Lipase Sent. eh3 16:16 Lactate Sent. eh3 16:28 Patient has correct armband on for positive identification. Bed in low position. Call ag7 light in reach. Side rails up X 1. 19:32 Ramon Powers MD is Referral Physician. [facility] 19:45 Patient has correct armband on for positive identification. Bed in low position. Call tk1 light in reach. Side rails up X2. Adult w/ patient. Pulse ox on. NIBP on. 19:45 IV is patent, is intact, with fluids infusing freely, tk1 19:47 Devon Perez is Hospitalizing Provider. [facility] 23:00 No provider procedures requiring assistance completed. Patient admitted, IV remains in tk1 place. Administered Medications: 20:40 Drug: NS 0.9% 500 ml Route: IV; Rate: bolus; Infused Over: 30 mins; Site: right tk1 forearm; Delivery: Primary tubing; 21:40 Follow up: Response: No adverse reaction; IV Status: Completed infusion; IV Intake: tk1 500ml 20:45 Drug: Meropenem 1 grams Route: IV; Rate: calculated rate; Infused Over: 30 mins; Site: tk1 right forearm; Delivery: Primary tubing; 21:15 Follow up: Response: No adverse reaction; IV Status: Completed infusion; IV Intake: tk1 100ml Intake: 21:15 IV: 100ml; Total: 100ml. tk1 21:40 IV: 500ml; Total: 600ml. tk1 22:00 PO: 500ml (Water); Total: 1100ml. tk1 Output: 22:00 Urine: 1000ml (Valera); Total: 1000ml. tk1 Outcome: 19:32 Discharge ordered by . tatyana 19:48 Decision to Hospitalize by Provider. tatyana 22:00 Admitted to Med/surg accompanied by nurse, family with patient, via wheelchair, room tk1 224, with chart, Report called to NORBERTO Bearden 23:00 Condition: stable tk1 23:14 Patient left the ED. tk1 Signatures: Florin Danielle PA PA jmm Hall, Patricia, RN RN Latricia Campbell Tammie tk1 Geneva Mckeon RN RN ag7 Arabella Kovacs 3
--- NOTE | 2021-05-31 20:25 | P.HP ---
Certification for Inpatient Patient admitted to: Inpatient With expected LOS: <2 Midnights Patient will require the following post-hospital care: None Practitioner: I am a practitioner with admitting privileges, knowledge of patient current condition, hospital course, and medical plan of care. Services: Services provided to patient in accordance with Admission requirements found in Title 42 Section 412.3 of the Code of Federal Regulations Patient History Date of Service: 05/31/21 Primary Care Provider: Dr. Powers Reason for admission: Resistant UTI History of Present Illness: Patient is a 56-year-old male with paraplegia, type 2 diabetes insulin- dependent, indwelling Valera catheter who presented to the ED stating that his urine culture came back resistant to several antibiotics. On Thursday, he had a urine culture done taken straight from his Valera catheter bag and today he received a call from Dr. Powers that it was resistant to several antibiotics and he would be requiring a PICC line and IV antibiotics. Patient has a history of UTIs resistant to antibiotics. Last grew Serratia marcescens and was treated with meropenem. Labs in the ER were significant for creatinine of 1.37, calcium 8.2, pro-Mansoor 0.08. Urine positive for blood, protein, nitrate, leuk esterase. Lactic acid and WBC within normal limits. Patient's vital signs stable, showing no signs of sepsis. Patient reports he feels completely fine. Patient received a dose of meropenem in the ED. Will admit patient to the hospital, order PICC line, and ID consult for IV antibiotic therapy. Allergies metformin Adverse Reaction (Severe, Verified 01/16/21 00:08) kidney damage ibuprofen Adverse Reaction (Verified 01/16/21 00:08) seecom stitches Adverse Reaction (Mild, Uncoded 02/06/20 12:27) Rash Home medications list reviewed: Yes Home Medications: Atorvastatin Calcium 1 tab PO DAILY 01/15/21 Colchicine 1 tab PO BID 01/15/21 Insulin Detemir [Levemir Flextouch] 40 units SQ BID 01/15/21 Levothyroxine Sodium [Euthyrox] 1 tab PO DAILY 01/15/21 Lisinopril [Zestril] 1 tab PO DAILY 01/15/21 Amlodipine [Norvasc*] 10 mg PO DAILY #30 tab 01/19/21 Aspirin [Aspirin EC 81 MG] 81 mg PO DAILY #90 tablet. 01/19/21 Folic Acid 1 mg PO DAILY #90 tablet 01/19/21 Meclizine HCl [Antivert*] 25 mg PO Q6H PRN #5 tab 01/19/21 carvediloL [Coreg*] 12.5 mg PO BID 6AM 6PM #60 tab 01/19/21 levoFLOXacin [Levaquin*] 500 mg PO DAILY #5 tab 01/19/21 - Past Medical/Surgical History Diabetic: Yes -: Diabetes mellitus type 2 -: HTN -: Gout -: Hyperlipidemia -: Hypothyroidism -: Paraplegic secondary to spinal stroke 2013 -: GERD -: CAD -: GERD, CKD 3 -: Memory Loss (non active) -: Crohn's Disease (non active) -: spinal surgery -: 2 hydroceles -: Fistula repair -: Incomplete spinal stroke Psychosocial/ Personal History: Patient is disabled, lives at home with his spouse - Family History Mother -: Hypertension, Diabetes, Stroke Notes: with gangrene leg - Social History Smoking Status: Never smoker Alcohol use: No CD- Drugs: No Caffeine use: No Place of Residence: Home Review of Systems Unremarkable Physical Examination - Physical Exam General: Alert, In no apparent distress, Oriented x3 HEENT: Atraumatic, PERRLA, Mucous membr. moist/pink, EOMI, Sclerae nonicteric Neck: Supple, 2+ carotid pulse no bruit, No LAD, Without JVD or thyroid abnormality Respiratory: Clear to auscultation bilaterally, Normal air movement Cardiovascular: Regular rate/rhythm, Normal S1 S2 Gastrointestinal: Normal bowel sounds, No tenderness Musculoskeletal: No tenderness Integumentary: No rashes Neurological: Normal speech, Normal tone, Normal affect, Other (Paraplegia) Urinary: Valera catheter - Studies Laboratory Data (last 24 hrs) 05/31/21 16:00: Sodium 138, Potassium 3.8, BUN 30 H, Creatinine 1.37 H, Glucose 254 H, Total Bilirubin 0.4, AST 35, ALT 54, Alkaline Phosphatase 143 H, Lipase 182 05/31/21 16:00: WBC 5.9, Hgb 14.3, Hct 40.1, Plt Count 149 L Assessment and Plan - Problems (Diagnosis) (1) Catheter-associated urinary tract infection Current Visit: Yes Status: Acute Qualifiers: Indwelling urinary catheter type: indwelling urethral catheter Encounter type: initial encounter Qualified Code(s): T83.511A - Infection and inflammatory reaction due to indwelling urethral catheter, initial encounter; N39.0 - Urinary tract infection, site not specified (2) Obesity (BMI 30-39.9) Current Visit: Yes Status: Chronic (3) CKD (chronic kidney disease), stage III Onset Date: 04/04/14 Current Visit: Yes Status: Chronic Qualifiers: Chronic kidney disease stage 3 subtype: stage 3a (GFR 45-59) Qualified Code(s): N18.31 - Chronic kidney disease, stage 3a (4) DM2 (diabetes mellitus, type 2) Onset Date: 11/25/16 Current Visit: Yes Status: Chronic Qualifiers: Diabetes mellitus fpc insulin use: with emt intermediate use Diabetes mellitus complication status: without complication Qualified Code(s): E11.9 - Type 2 diabetes mellitus without complications; Z79.4 - USP (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 (5) History of spinal cord injury Current Visit: No Status: Chronic (6) Hyperlipidemia Onset Date: 10/16/14 Current Visit: No Status: Chronic Qualifiers: Hyperlipidemia type: mixed hyperlipidemia Qualified Code(s): E78.2 - Mixed hyperlipidemia (7) Hypertension Onset Date: 04/04/14 Current Visit: Yes Status: Chronic Qualifiers: Hypertension type: primary hypertension Qualified Code(s): I10 - Essential (primary) hypertension (8) Paraplegia Onset Date: 04/04/14 Current Visit: Yes Status: Chronic - Plan -Patient has history of indwelling Valera catheter associated UTIs. Patient's states that she changes the bag twice a month in the tube itself once a month. Both were last changed on May 28. Last UTI required meropenem, will continue for now unless ID recommendation differs. PICC line ordered. Patient showing no signs of sepsis at this time. We will try to obtain urine culture from Dr. Powers. Another urine culture has been sent here along with blood cultures. -Patient has stage III chronic kidney disease and also appears to have a acute kidney injury. His creatinine was 1.37. Baseline around 1.1. Likely prerenal dehydration. Will proceed with IV hydration overnight and trend creatinine -Patient has type 2 diabetes insulin-dependent that appears uncontrolled. Moderate sliding scale insulin with ACHS Accu-Chek DVT PPx: Heparin Code: Full Discharge Plan: Home Plan to discharge in: 48 Hours - Advance Directives Does patient have a Living Will: No Does patient have a Durable POA for Healthcare: No - Code Status/Comfort Care Code Status Assessed: Yes (Full) Critical Care: No Time Spent Managing Pts Care (In Minutes): 70
[2021-05-31] MEDS ORDERED: NA CHLORIDE 0.9% 500 ML ONE (20:37)
[2021-05-31] MEDS ORDERED: NA CHLORIDE 0.9% 100 ML IV ONE (20:37)
[2021-05-31] MEDS ORDERED: Meropenem 1000 MG/VIAL IV ONE (20:37)
[2021-05-31] MEDS ORDERED: ONDANSETRON 4 MG/2 ML VIAL IV PRN (23:34)
[2021-05-31] MEDS ORDERED: ACETAMINOPHEN 500 MG TAB PO PRN (23:34)
[2021-05-31] MEDS: Meropenem 1,000 MG in NA CHLORIDE 0.9% 100 ML IV SCH (23:34)
[2021-05-31] MEDS ORDERED: MELATONIN 5 MG TABLET PO PRN (23:34)
[2021-06-01] MEDS: INSULIN -REGULAR HUMAN 50 UNIT/0.5 ML ML SQ SCH ×5 (00:35→21:01)
[2021-06-01] MEDS: NA CHLORIDE 0.9% 1,000 ML IV SCH ×3 (00:40→19:34)
[2021-06-01] MEDS: HEPARIN 5000 UNIT/ML 1 ML VIAL SQ SCH ×3 (01:13→17:00)
[2021-06-01 06:37] LABS: Absolute Lymphocytes (CBC) 1.2 K/uL (0.7-4.9); Hematocrit 38.8 % (39.6-49.0); Lymphocytes % 20.7 % (15.3-44.8); MPV 10.3 fL (7.6-11.3); RBC Red Blood Cell Count 4.48 M/uL (4.33-5.43)
[2021-06-01 06:54] LABS: Albumin 3.2 g/dL (3.4-5.0); Bilirubin Total 0.5 mg/dL (0.2-1.0); Magnesium 1.8 mg/dL (1.8-2.4); Phosphorus 2.7 mg/dL (2.5-4.9); Potassium 3.8 mmol/L (3.5-5.1); Protein, Total 6.5 g/dL (6.4-8.2)
[2021-06-01 06:57] LABS: Thyroid Stimulating Hormone 3.82 uIU/mL (0.360-3.740)
[2021-06-01] MEDS: Meropenem 1,000 MG in NA CHLORIDE 0.9% 100 ML IV SCH ×2 (08:59→20:22)
[2021-06-01] MEDS ORDERED: MORPHINE 2 MG/ML SYR IV ONE (10:39)
--- NOTE | 2021-06-01 13:30 | P.PN ---
Subjective Date of Service: 06/01/21 Primary Care Provider: Dr. Powers Chief Complaint: Resistant UTI Complaining of pain in the bladder and in the penis as stated the Valera catheter to be may have been pulled out a bit. He has no fever. Urine is dwayne-colored, not cloudy. Positive nitrite in UA. Physical Examination - Vital Signs Temperature: 97.0 F Blood Pressure: 130/72 Pulse: 68 Respirations: 16 Pulse Ox (%): 96 - Studies Laboratory Data (last 24 hrs) 05/31/21 16:00: Sodium 138, Potassium 3.8, BUN 30 H, Creatinine 1.37 H, Glucose 254 H, Total Bilirubin 0.4, AST 35, ALT 54, Alkaline Phosphatase 143 H, Lipase 182 05/31/21 16:00: WBC 5.9, Hgb 14.3, Hct 40.1, Plt Count 149 L Assessment And Plan - Current Problems (Diagnosis) (1) Catheter-associated urinary tract infection Current Visit: Yes Status: Acute Qualifiers: Indwelling urinary catheter type: indwelling urethral catheter Encounter type: initial encounter Qualified Code(s): T83.511A - Infection and inflammatory reaction due to indwelling urethral catheter, initial encounter; N39.0 - Urinary tract infection, site not specified (2) Chronic indwelling Valera catheter Current Visit: Yes Status: Acute (3) CKD (chronic kidney disease), stage III Onset Date: 04/04/14 Current Visit: Yes Status: Chronic Qualifiers: Chronic kidney disease stage 3 subtype: stage 3a (GFR 45-59) Qualified Code(s): N18.31 - Chronic kidney disease, stage 3a (4) DM2 (diabetes mellitus, type 2) Onset Date: 11/25/16 Current Visit: Yes Status: Chronic Qualifiers: Diabetes mellitus mcc insulin use: with mcc use Diabetes mellitus complication status: without complication Qualified Code(s): E11.9 - Type 2 diabetes mellitus without complications; Z79.4 - FPC (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 (5) Paraplegia Onset Date: 04/04/14 Current Visit: Yes Status: Chronic - Plan Continue IV meropenem. PICC line placed for outpatient IV antibiotics. Awaiting ID input. Aggressive blood sugar control and sliding scale and Lantus insulin. Renal function is stable. Retrieve urine culture result from PCP.
[2021-06-01] MEDS ORDERED: HOME MED 1 EA UNK (Valacyclovir Hcl [Valacyclovir] 1,000 MG Tablet) PO SCH (14:00)
[2021-06-01] MEDS: INSULIN LISPRO 100 UNIT/1 ML SQ SCH (17:25)
[2021-06-01] MEDS: VALACYCLOVIR 500 MG TAB PO SCH (20:23)
[2021-06-01] MEDS: COLCHICINE 0.6 MG TAB PO SCH (20:24)
[2021-06-01] MEDS: INSULIN GLARGINE 100 UNIT/ML SQ SCH (21:01)
[2021-06-02] MEDS: HEPARIN 5000 UNIT/ML 1 ML VIAL SQ SCH ×3 (00:27→16:19)
[2021-06-02] MEDS: NA CHLORIDE 0.9% 1,000 ML IV SCH (01:57)
[2021-06-02 04:50] LABS: Absolute Lymphocytes (CBC) 1.1 K/uL (0.7-4.9); Hematocrit 37.7 % (39.6-49.0); RBC Red Blood Cell Count 4.34 M/uL (4.33-5.43)
[2021-06-02] MEDS: LEVOTHYROXINE SOD 0.075 MG TAB PO SCH (05:32)
[2021-06-02] MEDS: PANTOPRAZOLE 40MG TABLET PO SCH (05:32)
[2021-06-02 07:01] LABS: Albumin 3.2 g/dL (3.4-5.0); Bilirubin Total 0.4 mg/dL (0.2-1.0); Potassium 3.7 mmol/L (3.5-5.1); Protein, Total 6.1 g/dL (6.4-8.2)
[2021-06-02] MEDS: INSULIN -REGULAR HUMAN 50 UNIT/0.5 ML ML SQ SCH ×4 (07:30→20:41)
[2021-06-02] MEDS: INSULIN LISPRO 100 UNIT/1 ML SQ SCH ×3 (08:30→16:19)
[2021-06-02] MEDS: INSULIN GLARGINE 100 UNIT/ML SQ SCH ×2 (08:31→20:40)
[2021-06-02] MEDS: Meropenem 1,000 MG in NA CHLORIDE 0.9% 100 ML IV SCH ×2 (08:32→20:41)
[2021-06-02] MEDS: lisinopriL 20 MG TAB PO SCH (08:33)
[2021-06-02] MEDS: COLCHICINE 0.6 MG TAB PO SCH ×2 (08:33→20:39)
[2021-06-02] MEDS: FUROSEMIDE 20 MG TABLET PO SCH (08:33)
[2021-06-02] MEDS: ASPIRIN EC 81 MG TAB PO SCH (08:33)
[2021-06-02] MEDS: ATORVASTATIN 40 MG TAB PO SCH (08:34)
[2021-06-02] MEDS: AMLODIPINE 10 MG TAB PO SCH (08:34)
[2021-06-02] MEDS: FOLIC ACID 1 MG TABLET PO SCH (08:34)
[2021-06-02] MEDS: VALACYCLOVIR 500 MG TAB PO SCH ×3 (09:00→20:40)
--- NOTE | 2021-06-02 11:13 | CON ---
History Of Present Illness: This is a 56-year-old male with multiple medical problems including diab etes mellitus, paraplegia from stroke at T10 level, hypertension, hypercholesterolemia, coronary tanvir ry disease, has a chronic indwelling catheter and Valera catheter, was seen at primary care doctor who noted to have multidrug-resistant bacteria in his urine. He was initially given Cipro prior to admi ssion and repeat cultures grew multidrug-resistant bacteria. The patient is currently getting merope nem and urine cultures are growing gram-negative rods. His procalcitonin is 0.07. WBC is within nor mal limits. Denied any headache, nausea, vomiting, chest pain, abdominal pain, constipation, or diar konstantin. Past Medical History: Diabetes mellitus, hypertension, gout, hyperlipidemia, hypothyroidism, paraple lee 8 years secondary to spinal stroke at T10, gastroesophageal reflux disease, coronary artery disea se, chronic kidney disease, memory loss, Crohn disease, spinal surgery, hydroceles bilaterally, recta l fistula. Social History: Used to smoke in the past. Alcohol use, still drinking socially. Family History: Noncontributory. Medications: Meropenem, Valtrex. See MAR for other medications. Allergies: METFORMIN, IBUPROFEN, NYLON STITCHES. Review of Systems: A 10-point review was performed. Physical Examination: General: This is a 56-year-old male, lying in bed, at the bedside. Vital Signs: Temperature 97, pulse 72, respiration 19, blood pressure 125/67. HEENT: Unremarkable. Neck: Supple. Lungs: Basal crackles. Heart: S1, S2. Regular. Abdomen: Soft. Bowel sounds present. Hyperpigmentation noted at the lower quadrant. Extremities: Right lower extremity with 2+ edema. Genitourinary: Valera catheter in place. Right arm PICC line in place. Laboratory Data: Shows WBC 4.7, hemoglobin 13, platelets are 160. Chemistry shows sodium 140, potas sium 3.7, chloride 107, bicarb 25, BUN is 22, creatinine 0.9, glucose is 231. Albumin level is 3.2 a nd procalcitonin is 0.07. Blood cultures are negative to date. Urine cultures are growing gram-nega tive rods. Assessment And Plan: A 56-year-old male with multiple medical problems and indwelling Valera catheter , coming in with possible colonization with urinary tract infection, chances of which are low as the patient's UA is not showing any high WBC count and procalcitonin is negative. We will recommend to h ydrate the patient and monitor the patient for any signs of infection, treat the patient for 3 days w ith antibiotic and pending culture results. We will follow the patient closely. Repeat urinalysis. Thank you Dr. Perez for consult. GABRIELA/SNOW Voice ID: [id number] Report ID: [id number]
--- NOTE | 2021-06-02 12:42 | P.PN ---
Subjective Date of Service: 06/02/21 Primary Care Provider: Dr. Powers Chief Complaint: Resistant UTI No complaints today Blood sugar readings are elevated. Physical Examination - Vital Signs Temperature: 97.4 F Blood Pressure: 138/66 Pulse: 77 Respirations: 18 Pulse Ox (%): 98 - Physical Exam General: Alert, In no apparent distress HEENT: Mucous membr. moist/pink Neck: JVD not distended Respiratory: Clear to auscultation bilaterally, Normal air movement Cardiovascular: No edema, Regular rate/rhythm, Normal S1 S2 Gastrointestinal: Soft and benign, Non-distended Musculoskeletal: No swelling Integumentary: No cyanosis Neurological: Other (Paraplegia) Assessment And Plan - Current Problems (Diagnosis) (1) Catheter-associated urinary tract infection Current Visit: Yes Status: Acute Qualifiers: Indwelling urinary catheter type: indwelling urethral catheter Encounter type: initial encounter Qualified Code(s): T83.511A - Infection and inflammatory reaction due to indwelling urethral catheter, initial encounter; N39.0 - Urinary tract infection, site not specified (2) Chronic indwelling Valera catheter Current Visit: Yes Status: Acute (3) CKD (chronic kidney disease), stage III Onset Date: 04/04/14 Current Visit: Yes Status: Chronic Qualifiers: Chronic kidney disease stage 3 subtype: stage 3a (GFR 45-59) Qualified Code(s): N18.31 - Chronic kidney disease, stage 3a (4) DM2 (diabetes mellitus, type 2) Onset Date: 11/25/16 Current Visit: Yes Status: Chronic Qualifiers: Diabetes mellitus usp insulin use: with machine long goods helper use Diabetes mellitus complication status: without complication Qualified Code(s): E11.9 - Type 2 diabetes mellitus without complications; Z79.4 - moth exterminator (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 (5) Paraplegia Onset Date: 04/04/14 Current Visit: Yes Status: Chronic - Plan Continue IV meropenem. PICC line placed for outpatient IV antibiotics. Case discussed with infectious disease Dr. Nielsen who recommend repeat UA in 1 more day of IV antibiotics. No outpatient antibiotics if repeat UA comes back negative. Aggressive blood sugar control with Premeal insulin, sliding scale and Lantus insulin. Increased premeal insulin to 30 units. Renal function is stable. Retrieve urine culture result from PCP tomorrow.
[2021-06-02 15:58] LABS: Urine Appearance Clear (Clear); Urine Bilirubin Negative (Negative); Urine Blood 1+ (Negative); Urine Color Yellow (Yellow); Urine Glucose Negative (Negative); Urine Protein 1+ (Negative); Urine Urobilinogen 0.2 mg/dL (0.2-1.0)
[2021-06-02 16:02] LABS: Urine Microscopic Reflex ORDER UMIC
[2021-06-02 16:23] LABS: Urine Bacteria <20 /HPF (NONE SEEN); Urine RBC <5 /HPF (NONE SEEN)
--- NOTE | 2021-06-02 23:08 | RAD REPORT ---
EXAM DESCRIPTION: RAD - Chest Single View - 06/01/2021 2:38 am CLINICAL HISTORY: S/P PICC insertion TECHNIQUE: Frontal view of the chest. COMPARISON: No relevant prior studies available. FINDINGS: Lungs: Unremarkable. No consolidation. Pleural space: Unremarkable. No pneumothorax. Heart: Unremarkable. No cardiomegaly. Mediastinum: Unremarkable. Bones/joints: Multilevel spondylosis. No acute fracture. Tubes, lines and devices: Right upper extremity PICC tip projects over the distal superior vena cav a. IMPRESSION: Right upper extremity PICC tip projects over the distal superior vena cava. Electronically signed by: Kaylen France MD 06/01/2021 3:21 AM CDT Due to temporary technical issues with the PACS/Fluency reporting system, reports are being signed by the in house radiologists without review as a courtesy to insure prompt reporting. The interpreting radiologist is fully responsible for the content of the report.
[2021-06-03] MEDS: HEPARIN 5000 UNIT/ML 1 ML VIAL SQ SCH ×2 (00:52→09:16)
[2021-06-03 04:59] VITALS: TEMP 97.2
[2021-06-03] MEDS: PANTOPRAZOLE 40MG TABLET PO SCH (05:58)
[2021-06-03] MEDS: LEVOTHYROXINE SOD 0.075 MG TAB PO SCH (05:58)
[2021-06-03 08:08] VITALS: BP 158/85
[2021-06-03] MEDS: AMLODIPINE 10 MG TAB PO SCH (09:00)
[2021-06-03] MEDS: INSULIN LISPRO 100 UNIT/1 ML SQ SCH (09:11)
[2021-06-03] MEDS: INSULIN -REGULAR HUMAN 50 UNIT/0.5 ML ML SQ SCH (09:12)
[2021-06-03] MEDS: INSULIN GLARGINE 100 UNIT/ML SQ SCH (09:12)
[2021-06-03] MEDS: VALACYCLOVIR 500 MG TAB PO SCH (09:13)
[2021-06-03] MEDS: Meropenem 1,000 MG in NA CHLORIDE 0.9% 100 ML IV SCH (09:13)
[2021-06-03] MEDS: ASPIRIN EC 81 MG TAB PO SCH (09:14)
[2021-06-03] MEDS: COLCHICINE 0.6 MG TAB PO SCH (09:14)
[2021-06-03] MEDS: lisinopriL 20 MG TAB PO SCH (09:15)
[2021-06-03] MEDS: FUROSEMIDE 20 MG TABLET PO SCH (09:15)
[2021-06-03] MEDS: FOLIC ACID 1 MG TABLET PO SCH (09:16)
[2021-06-03] MEDS: ATORVASTATIN 40 MG TAB PO SCH (09:16)
[2021-06-03 11:20] VITALS: O2SAT 97
--- NOTE | 2021-06-03 12:50 | P.DS ---
Admission Date: 05/31/21 Discharge Date: 06/03/21 Primary Care Provider: Dr. Powers Disposition: ROUTINE DISCHARGE Discharge Condition: GOOD Reason for Admission: Resistant UTI - Problems (1) Catheter-associated urinary tract infection Status: Acute Qualifiers: Indwelling urinary catheter type: indwelling urethral catheter Encounter type: initial encounter Qualified Code(s): T83.511A - Infection and inflammatory reaction due to indwelling urethral catheter, initial encounter; N39.0 - Urinary tract infection, site not specified (2) Chronic indwelling Valera catheter Status: Acute (3) CKD (chronic kidney disease), stage III Onset Date: 04/04/14 Status: Chronic Qualifiers: Chronic kidney disease stage 3 subtype: stage 3a (GFR 45-59) Qualified Code(s): N18.31 - Chronic kidney disease, stage 3a (4) DM2 (diabetes mellitus, type 2) Onset Date: 11/25/16 Status: Chronic Qualifiers: Diabetes mellitus usp insulin use: with usp use Diabetes mellitus complication status: without complication Qualified Code(s): E11.9 - Type 2 diabetes mellitus without complications; 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 On Thursday, he had a urine culture done taken straight from his Valera catheter bag and today he received a call from Dr. Powers that it was resistant to several antibiotics and he would be requiring a PICC line and IV antibiotics. Patient has a history of UTIs resistant to antibiotics. Last grew Serratia marcescens and was treated with meropenem. Labs in the ER were significant for creatinine of 1.37, calcium 8.2, pro-Mansoor 0.08. Urine positive for blood, protein, nitrate, leuk esterase. Lactic acid and WBC within normal limits. Patient's vital signs stable, showing no signs of sepsis. Patient reported no symptoms. He received a dose of me ropenem in the ED and admitted for further management. Hospital Course: Patient admitted to the medical floor and started on IV meropenem via PICC line. Initial UA was positive for nitrites. Patient received 3 days of IV meropenem. Urine culture grew Serratia marcens sensitive to Bactrim and meropenem. Patient seen and evaluated by infectious disease recommended repeat UA which was negative for UTI. Urine culture growth is likely a colonization. Patient is prescribed 2 more days of Bactrim to complete 5 days of treatment. He has been asymptomatic and clinically stable for discharge. Vital Signs/Physical Exam: Temp Pulse Resp BP Pulse Ox 97.2 F 73 16 158/85 H 97 06/03/21 08:00 06/03/21 09:15 06/03/21 08:00 06/03/21 09:15 06/03/21 08:00 General: Alert, In no apparent distress, Oriented x3 HEENT: Mucous membr. moist/pink Respiratory: Clear to auscultation bilaterally, Normal air movement Cardiovascular: No edema, Regular rate/rhythm Gastrointestinal: Soft and benign, Non-distended Integumentary: No rashes Laboratory Data at Discharge: WBC 4.7 K/uL (4.3-10.9) D 06/02/21 04:41 Hgb 13.0 g/dL (13.6-17.9) L 06/02/21 04:41 Hct 37.7 % (39.6-49.0) L 06/02/21 04:41 Plt Count 116 K/uL (152-406) L 06/02/21 04:41 Sodium 140 mmol/L (136-145) 06/02/21 04:41 Potassium 3.7 mmol/L (3.5-5.1) 06/02/21 04:41 BUN 22 mg/dL (7-18) H 06/02/21 04:41 Creatinine 0.97 mg/dL (0.55-1.3) 06/02/21 04:41 Glucose 231 mg/dL (74-106) H 06/02/21 04:41 Phosphorus 2.7 mg/dL (2.5-4.9) 06/01/21 06:18 Magnesium 1.8 mg/dL (1.8-2.4) 06/01/21 06:18 Total Bilirubin 0.4 mg/dL (0.2-1.0) 06/02/21 04:41 AST 23 U/L (15-37) 06/02/21 04:41 ALT 43 U/L (12-78) 06/02/21 04:41 Alkaline Phosphatase 110 U/L (45-117) 06/02/21 04:41 Triglycerides 223 mg/dL (<150) H 06/01/21 06:18 Cholesterol 84 mg/dL (<200) 06/01/21 06:18 HDL Cholesterol 26 mg/dL (40-60) L 06/01/21 06:18 Cholesterol/HDL Ratio 3.23 06/01/21 06:18 Lipase 182 U/L (73-393) 05/31/21 16:00 Home Medications: Atorvastatin Calcium 1 tab PO DAILY 01/15/21 Colchicine 1 tab PO BID 01/15/21 Insulin Detemir [Levemir Flextouch] 40 units SQ BID 01/15/21 Levothyroxine Sodium [Euthyrox] 1 tab PO DAILY 01/15/21 Lisinopril [Zestril] 1 tab PO DAILY 01/15/21 Amlodipine [Norvasc*] 10 mg PO DAILY #30 tab 01/19/21 Folic Acid 1 mg PO DAILY #90 tablet 01/19/21 Aspirin [Aspirin EC 81 MG] 162 mg PO DAILY 05/31/21 Furosemide 20 mg PO DAILY 05/31/21 Insulin Aspart See Protocol SQ 05/31/21 Omeprazole 10 mg PO DAILY 05/31/21 Valacyclovir HCl [Valacyclovir] 1,000 mg PO TID 05/31/21 Smz./Tmp. [Bactrim Ds 800 MG/160 MG] 1 tab PO BID #4 tab 06/03/21 New Medications: Smz./Tmp. [Bactrim Ds 800 MG/160 MG] 1 tab PO BID #4 tab Diet: ADA Activity: Ad tadeo Followup: Ramon Powers MD [Primary Care Provider] - 1-2 Weeks (CAll to schedule an appointment) Time spent managing pt's care (in minutes): 33
== END 2021-06-03 11:00 | disposition home or self-care (01) | DRG 699 ==
LOC: ER 14:58 → ERHOLD 21:00 → 2ND 22:16
PROVIDERS: ADMIT Internal Medicine; ATTEND Internal Medicine
PROC: 02HV33Z Insertion of Infusion Device into Superior Vena Cava, Percutaneous Approach (ICD-10-PCS; principal; 2021-06-01)
DX: T83.511A Infection and inflammatory reaction due to indwelling urethral catheter, initial encounter (principal); N17.9 Acute kidney failure, unspecified; G82.20 Paraplegia, unspecified; N39.0 Urinary tract infection, site not specified; I12.9 Hypertensive chronic kidney disease with stage 1 through stage 4 chronic kidney disease, or unspecified chronic kidney disease; N18.31 Chronic kidney disease, stage 3a; E11.22 Type 2 diabetes mellitus with diabetic chronic kidney disease; E78.5 Hyperlipidemia, unspecified; E66.9 Obesity, unspecified; Z68.36 Body mass index [BMI] 36.0-36.9, adult; M10.9 Gout, unspecified; E03.9 Hypothyroidism, unspecified; I25.10 Atherosclerotic heart disease of native coronary artery without angina pectoris; Z79.4 Long term (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; Z86.73 Personal history of transient ischemic attack (TIA), and cerebral infarction without residual deficits; Z20.822 Contact with and (suspected) exposure to COVID-19
CPT/HCPCS: 36415; 36569; 71045; 80053; 80061; 81003; 81015; 82947; 83605; 83690; 83735; 84100; 84145; 84439; 84443; 85025; 87040; 87077; 87086; 87088; 87186; 96365; 99285; J1644; J1815; J2185; J2270; J7030; J7040; U0003

== ENCOUNTER 2021-08-06 22:11 | Inpatient (IN) | payer MEDICARE ==
--- OUTSIDE RECORDS SUMMARY | 2021-08-06 22:15 | XMS REPORT | Continuity of Care Document ---
:1965 Author Organization [facility] t Address [address] [place] [address] Care Team Providers Name Role Phone Ramon Powers Attending Clinician Unavailable Trevino_M Attending Clinician Unavailable CURRY_S Attending Clinician Unavailable CHARLY Attending Clinician Unavailable LIIANA GOMEZ Attending Clinician Unavailable Trevino_M Admitting Clinician Unavailable CURRY_S Admitting Clinician Unavailable ELEKCYNTHIA Admitting Clinician Unavailable ILIANA GOMEZ Admitting Clinician Unavailable Payers Payer Name Policy Type Policy Number Effective Date Expiration Date S [facility]na[facility] [id number] 2020 (MEDICARE 00:00:00 REPLACEMENT HMO) Problems This patient has no known problems. Allergies, Adverse Reactions, Alerts Allergy Allergy Status Severity Reaction(s) Onset Inactive Treating Comm ents Source Name Type Date Date Clinician IBUPROFE Allergy Active [facility] METFORMI Allergy [facility] Medications This patient has no known medications. Procedures This patient has no known procedures. Encounters Start End Encounter Admission Attending Care Care Encounter Source Date/Time Date/Time Type Type Clinicians Facility Department ID 2021-04-03 Outpatient Powers, [facility] [id number] Common 14:09:15 Ramon [id number] [facility] 2021-04-03 Outpatient STLMLC STLMLC [id number] Common 12:01:03 [id number] [facility] 2021-04-23 2021-04-23 Outpatient Trevino_M [facility] [id number] -2021 Devoted 08:00:00 08:00:00 [facility] 2021-03-12 2021-03-12 Outpatient Trevino_M [facility] [id number] -2021 Devoted 03:11:00 03:11:00 0104 [facility] 2021-02-11 2021-02-11 Outpatient CURRY_S [facility] [id number] Devoted 05:35:00 05:35:00 1206 [facility] 2021-02-11 2021-02-11 ambulatory STLMLC STLMLC [id number] Common 00:00:00 00:00:00 [facility] 2021-01-11 2021-01-11 ambulatory STLMLC STLMLC [id number] Common 00:00:00 00:00:00 [facility] 2020-06-15 2020-06-15 [facility] [id number] 00:09[facility]00 19:09:00 [facility] 2020-02-14 2020-02-14 Outpatient STLMLC STLMLC [id number] Common 00:00:00 00:00:00 [facility] 2020-02-07 2020-02-07 Outpatient STLMLC STLMLC [id number] Common 00:00:00 00:00:00 [facility] 2020-01-17 2020-01-17 Outpatient STLMLC STLMLC [id number] Common 00:00:00 00:00:00 [facility] 2020-01-16 2020-01-16 Outpatient STLMLC STLMLC [id number] Common 00:00:00 00:00:00 [facility] 2020-01-09 2020-01-09 Outpatient STLMLC STLMLC [id number] Common 00:00:00 00:00:00 [facility] Results Test Description Test Time Test Comments Results Result Comments Source BLOOD CULTURE 2016-07-07 14:28:00 Test Item Value Reference Range Interpretation Comme nts CULTURE (BEAKER) (test code = 1095) No growth in 5 days POCT-GLUCOSE [id number] 12:04:00 Test Item Value Reference Range Interpretation Comments POC-GLUCOSE METER 179 mg/dL 70-110 H TESTED AT [facility] 6720 (BEAKER) (test code = [place] 1538) [address] BASIC METABOLIC [id number] 09:51:00 Test Item Value Reference Range Interpretation [...] PATIEN TS. CBC W/PLT COUNT & AUTO [id number] 09:20:00 Test Item Value Reference Range Interpretation [...] L 0.00-0.20 (test code = 417) 0.00POCT-GLUCOSE [id number] 07:15:00 Test Item Value Reference Range Interpretation Comments POC-GLUCOSE METER 246 mg/dL 70-110 H TESTED AT [facility] [address] [facility] (test code = ADOLFO Willett [facility] 1538) [id number] POCT-GLUCOSE [id number] 21:12:00 Test Item Value Reference Range Interpretation Comments POC-GLUCOSE METER 89 mg/dL 70-110 TESTED AT [facility] [address] [facility] (test code = ADOLFO Willett [facility] [address] 1538) POCT-GLUCOSE [id number] 17:12:00 Test Item Value Reference Range Interpretation Comments POC-GLUCOSE METER 217 mg/dL 70-110 H TESTED AT [place] [address] ([facility]) (test code = ADOLFO Wil[place] 1538) [id number] URINE [id number] 12:07:00 Test Item Value Reference Range Interpretation Comments CULTURE (BEAKER) (test <10,000 col/mL skin code = 1095) candi POCT-GLUCOSE [id number] 11:30:00 Test Item Value Reference Range Interpretation Comments POC-GLUCOSE METER 205 mg/dL 70-110 H TESTED AT [place] [address] ([facility]) (test code = ADOLFO Willett [place] 1538) [id number] POCT-GLUCOSE [id number] 07:36:00 Test Item Value Reference Range Interpretation Comments POC-GLUCOSE METER 195 mg/dL 70-110 H TESTED AT [place] [address] ([facility]) (test code = ADOLFO Willett [facility] 1538) [address] CBC W/PLT COUNT & AUTO [id number] 05:14:00 Test Item Value Reference Range Interpretation [...] K/ L 0.00-0.20 (test code = 417) [facility] MET[facility] [id number] 05:14:00 Test Item Value Reference Range Interpretation [...] NOT APPLICABLE FOR DIALYSIS PATIEN TS. POCT-GLUCOSE [id number] 21:04:00 Test Item Value Reference Range Interpretation Comments POC-GLUCOSE METER 178 mg/dL 70-110 H TESTED AT [facility] 6720 (BEAKER) (test code = [place] 1538) [id number] POCT-GLUCOSE [id number] 17:07:00 Test Item Value Reference Range Interpretation Comments POC-GLUCOSE METER 88 mg/dL 70-110 TESTED AT [place] [address] (AKER) (test code = [facility] Tamie [facility] [address] 1538) POCT-GLUCOSE [id number] 12:30:00 Test Item Value Reference Range Interpretation Comments POC-GLUCOSE METER 107 mg/dL 70-110 TESTED AT [place] [address] [facility]) (test code = [facility] Tamie [facility] 1538) [id number] POCT-GLUCOSE [id number] 07:46:00 Test Item Value Reference Range Interpretation Comments POC-GLUCOSE METER 169 mg/dL 70-110 H TESTED AT [place] [address] ([facility]) (test code = [facility] Tamie [facility] 1538) [address] CBC W/PLT COUNT & AUTO [id number] 07:42:00 Test Item Value Reference Range Interpretation [...] 0.00-0.20 (test code = 417) 0.00BASI METABOLIC [id number] 06:13:00 Test Item Value Reference Range Interpretation [...] NOT APPLICABLE FOR DIALYSIS PATIEN TS. POCT-GLUCOSE [id number] 22:12:00 Test Item Value Reference Range Interpretation Comments POC-GLUCOSE METER 238 mg/dL 70-110 H TESTED AT [facility] 6720 (BEAKER) (test code = [place] 2553) [address] POCT-GLUCOSE [id number] 17:25:00 Test Item Value Reference Range Interpretation Comments POC-GLUCOSE METER 102 mg/dL 70-110 TESTED AT [place] [address] (BEAKER) (test code = ADOLFO Willett [facility] 1538) [id number] URINALYSIS W/ [id number] 12:50:00 Test Item Value Reference Range Interpretation [...] /HPF SOURCE(BEAKER) (test code = 2795) POCT-GLUCOSE [id number] 12:04:00 Test Item Value Reference Range Interpretation Comments POC-GLUCOSE METER 226 mg/dL 70-110 H TESTED AT [place] [id number] (BEAKER) (test code = ADOLFO Willett [facility] 1538) [id number] POCT-GLUCOSE [id number] 08:00:00 Test Item Value Reference Range Interpretation Comments POC-GLUCOSE METER 300 mg/dL 70-110 H TESTED AT [place] [address] (BEAKER) ([facility] = [facility] 1538) [address] BASIC METABOLIC [id number] 06:50:00 Test Item Value Reference Range Interpretation [...] PATIEN TS. CBC W/PLT COUNT & AUTO [id number] 06:01:00 Test Item Value Reference Range Interpretation [...] L 0.00-0.20 (test code = 417) 0.00POCT-GLUCOSE [id number] 21:25:00 Test Item Value Reference Range Interpretation Comments POC-GLUCOSE METER 279 mg/dL 70-110 H TESTED AT [facility] 6720 (BEAKER) (test code = [place] 1538) [id number] HEMOGLOBIN [id number] 21:13:00 Test Item Value Reference Range Interpretation Comments HEMOGLOBIN A1C (BEAKER) (test code = 10.7 % 4.3-6.1 H 368) CBC W/PLT COUNT & AUTO [id number] 20:47:00 Test Item Value Reference Range Interpretation [...] L 0.00-0.20 (test code = 417) 0.00POCT-GLUCOSE [id number] 18:31:00 Test Item Value Reference Range Interpretation Comments POC-GLUCOSE METER 205 mg/dL 70-110 H TESTED AT [facility] 6720 (BEAKER) (test code = [place] 1538) [id number]
[2021-08-06] MEDS ORDERED: METOPROLOL TARTRATE 5 MG/5 ML INJ IV ONE ×2 (22:36→22:52)
[2021-08-06] MEDS ORDERED: dilTIAZem HCL 25 MG/5 ML VIAL IV ONE ×4 (23:18→23:45)
[2021-08-06] MEDS ORDERED: NA CHLORIDE 0.9% 100 ML ONE (23:41)
[2021-08-07] MEDS ORDERED: NA CHLORIDE 0.9% 100 ML ONE ×2 (00:01→00:23)
[2021-08-07] MEDS ORDERED: dilTIAZem HCL 25 MG/5 ML VIAL IV ONE (00:15)
[2021-08-07 00:48] LABS: Protime INR 1.05
[2021-08-07 00:50] LABS: Absolute Lymphocytes (CBC) 1.8 K/uL (0.7-4.9); Hematocrit 40.4 % (39.6-49.0); Lymphocytes % 18.3 % (15.3-44.8); MPV 10.3 fL (7.6-11.3); RBC Red Blood Cell Count 4.73 M/uL (4.33-5.43)
[2021-08-07 01:11] LABS: Albumin 3.1 g/dL (3.4-5.0); Bilirubin Direct 0.2 mg/dL (0-0.2); Bilirubin Total 0.6 mg/dL (0.2-1.0); Magnesium 1.8 mg/dL (1.8-2.4); Potassium 3.8 mmol/L (3.5-5.1); Protein, Total 6.6 g/dL (6.4-8.2); Thyroid Stimulating Hormone 2.41 uIU/mL (0.360-3.740)
[2021-08-07 01:12] LABS: Troponin High Sensitivity 109.3 pg/mL (<58.9)
--- NOTE | 2021-08-07 01:14 | ER ---
Nurse's Notes [facility] Name: Ramirez Chaudhari Age: 56 yrs Sex: Male : 1965 Arrival Date: 08/06/2021 Time: 22:14 Bed 14 Private MD: Diagnosis: Atrial Fibrillation with RVR, New Onset Presentation: 08/06 22:15 Chief complaint: EMS states: Called for patient for generalized weakness while family lp1 was helping him bathe, family member reported low BP at home of 80/50; Per EMS, stable VS, HR of 140's; Patient denies any chest pain, shortness of breath. 22:15 Coronavirus screen: At this time, the client does not indicate any symptoms associated lp1 with coronavirus-19. Ebola Screen: No symptoms or risks identified at this time. Initial Sepsis Screen: Does the patient meet any 2 criteria? HR > 90 bpm. Does the patient have a suspected source of infection? No. Patient's initial sepsis screen is negative. Risk Assessment: Do you want to hurt yourself or someone else? Patient reports no desire to harm self or others. Onset of symptoms was August 06, 2021. 22:15 Method Of Arrival: EMS: [facility] lp1 22:15 Acuity: NOHEMI 2 lp1 22:20 Care prior to arrival: Medication(s) given: ASA 81mg x4 given PO IV initiated. 18 GA, lp1 in the right antecubital area, Glucose check: 300 Oxygen administered. via nasal cannula. Triage Assessment: 08/07 00:43 General: Appears in no apparent distress. benny 01:10 General: Behavior is calm, cooperative. benny 01:10 Pain: Denies pain. benny Historical: - Allergies: 08/06 22:39 Ibuprofen; lp1 22:39 metformin; lp1 - Home Meds: 22:39 omeprazole 40 mg Oral cpDR 1 cap once daily [Active]; Colcrys 0.6 mg Oral tab 1 tab bid lp1 prn gout [Active]; lisinopril 40 mg Oral tab once daily [Active]; furosemide 40 mg Oral tab 1 tab once daily [Active]; atorvastatin 40 mg Oral tab 1 tab once daily [Active]; Euthyrox 150 mcg oral tab 1 tab once daily [Active]; nitrofurantoin macrocrystal 100 mg Oral cap 1 cap once daily [Active]; - PMHx: 22:39 ADD/ADHD; Diabetes - IDDM; GERD; Gout; High Cholesterol; Hydrocele Left Testicle; lp1 Hypertension; Hypothyroidism; Migraines; Paraplegia; Renal Disease; Spinal Stroke; - Immunization history:: Adult Immunizations up to date. - Social history:: Smoking status: Patient denies any tobacco usage or history of. Screenin/01 00:40 Abuse screen: Denies threats or abuse. Denies injuries from another. Nutritional benny screening: No deficits noted. Tuberculosis screening: No symptoms or risk factors identified. Fall Risk None identified. Assessment: 08/06 22:26 General: The pt was received \\T\\2216 via EMS. . benny 22:29 Reassessment: Dr. Willis at bedside to assess patient, verbal order to given Lopressor lp1 5mg IV now. 22:57 Reassessment: Lopressor 5mg given again \\T\\ 2245. benny 23:19 Reassessment: Cardizem 15mg IV given \\T\\ 2315, per MD's order. benny 23:37 Reassessment: I called the house sup, as there isn't enough Cardizem to make the drip. benny She is bringing me the 2 additional vials. 23:53 Reassessment: She brought the 2 additional vials, but given that we only have the benny "plug-in" type of NS 100mg, not one that a pharmacist would have access to, so that I might pull the med from the current "leaky" bag, to the "new" bag, minus the "plug-in". 08/07 00:05 Reassessment: She brought another NS 100ml, but it too was a "plug-in" and leaked. The benny mixed bag of the Cardizem was discarded in the sink, as she had tried to transfer it to a new bag, unsuccessfully. She went to get more medication, if she can locate it. 00:16 Reassessment: She has returned, but we do not have enough medication to mix it as benny prescribed. 00:36 Reassessment: Patient appears in no apparent distress at this time. The Cardizem drip benny was hung, as the House Sup was successful in rounding up all that was needed. The pt has been in NAD. He, actually, has been sleeping most of the time. His has been at bedside, having arrived shortly after the pt. The Cardizem drip is as follows, as that was what was available...in the hospital; Cardizem 100mg, in 80ml of NS, so a concentration of 1.25mg/1 ml, or a rate 4ml/H (5mg/H). 01:40 Reassessment: The pt is resting comfortably with his at bedside. It should be benny noted that the pt has a wound to his right heel, that he was going to see his MD for. The wound is approximately 3cm, well granulated and no foul odor was detected. The pt has a hx of having a "spinal stroke" 8 years ago, but is able to move himself up in the bed, despite his paralysis. The pt attributes this to [facility] and their training. 01:49 Reassessment: The pt's heart rate remains elevated and the Cardizem drip was increased benny to 7.5mg/H, or 6ml/H with a concentration of 1.25mg/ml. The admitting hospitalist is at bedside speaking with the pt and his . The pt was moved to a "hospital bed", for comfort. 01:56 Reassessment: The covid swab was sent as the pt is to be admitted. benny 02:13 Reassessment: The pt's heart rate remains stubbornly elevated. The Cardizem drip was benny adjusted, per order, by another 2.5mg an hour, so a total of 10mg/h, or 8ml/h. The pt's remains at bedside. The pt is sleeping. 03:06 Reassessment: The pt's bp became lower than parameters and the Cardizem drip was benny decreased to 6ml/h or 7.5mg/hr. The pt's remains at bedside. 03:15 Reassessment: The Cardizem drip was reduced to 5mg/h, or 4ml/h. benny 03:19 Reassessment: Again, the drip was decreased to 2ml/H, or 2.5mg/h. benny 03:31 Reassessment: The drip was stopped and the hospitalist was called. The pt is sleeping, benny with clear, even breaths. 04:44 Reassessment: The pt's "admission assessment" was completed in [facility]. The pt is to benny go to ICU. He does not have a bed assignment. He is resting well on the "hospital bed". He declined to have an air mattress, as per the pt and his , it makes it too difficult to move on the bed. 06:12 Reassessment: The lab called to say that the pt had a troponin of 442.8. The hospitalist was called, but did not answer, so I left a voicemail. 06:39 Reassessment: Per the charge, the pt will receive an ICU bed after shift change. benny 14:12 Reassessment: patient requested IV site to be changed. [email or web address] Vital Signs: 08/06 22:15 BP 148 / 76; Pulse 151; Resp 17; Pulse Ox 97% on R/A; Weight 106.59 kg (R); Height 5 lp1 ft. 8 in. (172.72 cm); Pain 0/10; 22:16 BP 148 / 76; Pulse 167; Resp 18; Pulse Ox 96% on R/A; benny 22:27 BP 149 / 78; Pulse 163; Resp 18; Pulse Ox 99% on 2 lpm NC; benny 22:56 BP 152 / 83; Pulse 137; Resp 20; Pulse Ox 99% on 2 lpm NC; benny 23:25 BP 101 / 76; Pulse 115; Resp 18; Pulse Ox 99% on 1 lpm NC; benny 08/07 00:40 BP 111 / 63; Pulse 150; Resp 18; Pulse Ox 99% on 1 lpm NC; benny 01:08 BP 103 / 83; Pulse 114; Resp 18; Temp 97.8; Pulse Ox 99% on 1 lpm NC; benny 02:12 BP 116 / 65; Pulse 130; Resp 18; Temp 97.8; Pulse Ox 99% on 2 lpm NC; benny 03:00 BP 138 / 78; Pulse 71; Resp 16; Pulse Ox 97% on 2 lpm NC; benny 03:07 BP 97 / 56; Pulse 70; Resp 16; Temp 97.8; Pulse Ox 99% on 2 lpm NC; benny 03:16 BP 87 / 56; Pulse 68; Resp 17; Pulse Ox 99% on 2 lpm NC; benny 03:30 BP 85 / 50; Pulse 68; Resp 18; Pulse Ox 99% on 2 lpm NC; benny 03:50 BP 133 / 91; Pulse 72; Resp 16; Pulse Ox 100% on 2 lpm NC; benny 04:46 BP 93 / 62; Pulse 68; Resp 16; Temp 97.8; Pulse Ox 99% on 2 lpm NC; benny 05:06 BP 113 / 68; Pulse 70; Resp 16; Temp 97.8; Pulse Ox 99% on 2 lpm NC; benny 05:59 BP 130 / 84; Pulse 67; Resp 16; Temp 97.8; Pulse Ox 99% on R/A; Weight 108.86 kg; benny Height 5 ft. 8 in. (172.72 cm); Pain 0/10; 05:59 Body Mass Index 36.49 (108.86 kg, 172.72 cm) benny ED Course: 08/06 22:14 Patient arrived in ED. mw2 22:16 Client placed on continuous cardiac and pulse oximetry monitoring. NIBP monitoring benny applied. fellmongering machine operator on. Pulse ox on. NIBP on. 22:18 Jasbir Willis MD is Attending Physician. 7 22:25 Elayne Aly, RN is Primary Nurse. benny 22:38 Triage completed. lp1 23:25 XRAY Chest (1 view) In Process Unspecified. EDMS 08/07 00:42 Bed in low position. Call light in reach. Side rails up X2. benny 01:06 Troponin HS Sent. benny 01:06 NT PRO-BNP Sent. benny 01:07 Magnesium Sent. benny 01:07 LFT's Sent. benny 01:07 Basic Metabolic Panel Sent. benny 01:07 TSH Sent. benny 01:09 Arm band placed on. benny 01:09 No provider procedures requiring assistance completed. Maintain EMS IV. Dressing benny intact. Good blood return noted. Site clean \\T\\ dry. Gauge \\T\\ site: 18 gauge to right ac. 01:12 Yohana Bustos MD is Hospitalizing Provider. mh7 01:44 Patient admitted, IV remains in place. benny 14:11 Inserted saline lock: 22 gauge in right forearm, using aseptic technique. jg9 15:20 COVID 19 CPL Sent. jg9 Administered Medications: 08/06 22:31 Drug: Lopressor (metoprolol) 5 mg {Note: By Elayne Huff RN.} Route: IVP; Site: right lp1 antecubital; 23:15 Drug: Cardizem (diltiazem) 15 mg Route: IVP; Site: right antecubital; benny 08/07 00:33 Drug: Cardizem (diltiazem) 5 mg/hr Route: IV; Rate: 4 mg/hr; Site: right antecubital; benny Medication: 01:10 VIS not applicable for this client. benny Outcome: 01:10 Condition: stable benny 01:13 Decision to Hospitalize by Provider. [facility] 01:44 Admitted to ER Hold. Please see [facility] for further documentation. benny 15:26 Patient left the ED. jg9 Signatures: Dispatcher [employer] EDMS Neris Hernandez RN RN lp1 Morgan Diallo 2 Jasbir Willis MD MD 7 Daya Sanderson RN RN jg9 Elayne Aly RN RN bo Corrections: (The following items were deleted from the chart) 03:01 02:59 BP 138 / 78; Pulse 71bpm; Resp 18bpm; Pulse Ox 96% RA; benny benny
--- NOTE | 2021-08-07 01:14 | EDPHYS ---
Physician Documentation [facility] Name: Ramirez Chaudhari Age: 56 yrs Sex: Male : 1965 Arrival Date: 08/06/2021 Time: 22:14 Bed 14 Private MD: ED Physician Jasbir Willis HPI: 08/06 22:52 This 56 yrs old Male presents to ER via EMS with complaints of General mh7 Weakness. 22:52 The patient presents with a history of irregular heart beat, heart racing. Context: The mh7 symptoms occur at rest. Onset: The symptoms/episode began/occurred just prior to arrival, today. Duration: The patient or guardian reports multiple episodes, that are intermittent, that wax and wane, with no pattern. Modifying factors: The symptoms are aggravated by nothing. The symptoms are alleviated by nothing. Associated signs and symptoms: Pertinent positives: lightheadedness, generalized weakness, Pertinent negatives: anxiety, chest pain, cough, fever, nausea, SOB, syncope, near-syncope, unusual stressors, vertigo, vomiting. Severity of symptoms: At their worst the symptoms were moderate today, in the emergency department the symptoms are unchanged. Historical: - Allergies: 22:39 Ibuprofen; lp1 22:39 metformin; lp1 - Home Meds: 22:39 omeprazole 40 mg Oral cpDR 1 cap once daily [Active]; Colcrys 0.6 mg Oral tab 1 tab bid lp1 prn gout [Active]; lisinopril 40 mg Oral tab once daily [Active]; furosemide 40 mg Oral tab 1 tab once daily [Active]; atorvastatin 40 mg Oral tab 1 tab once daily [Active]; Euthyrox 150 mcg oral tab 1 tab once daily [Active]; nitrofurantoin macrocrystal 100 mg Oral cap 1 cap once daily [Active]; - PMHx: 22:39 ADD/ADHD; Diabetes - IDDM; GERD; Gout; High Cholesterol; Hydrocele Left Testicle; lp1 Hypertension; Hypothyroidism; Migraines; Paraplegia; Renal Disease; Spinal Stroke; - Immunization history:: Adult Immunizations up to date. - Social history:: Smoking status: Patient denies any tobacco usage or history of. ROS: 22:52 Constitutional: Negative for fever, chills, and weight loss, Eyes: Negative for injury, mh7 pain, redness, and discharge, ENT: Negative for injury, pain, and discharge, Neck: Negative for injury, pain, and swelling, Respiratory: Negative for shortness of breath, cough, wheezing, and pleuritic chest pain, Abdomen/GI: Negative for abdominal pain, nausea, vomiting, diarrhea, and constipation, Back: Negative for injury and pain, : Negative for injury, bleeding, discharge, and swelling, MS/Extremity: Negative for injury and deformity, Skin: Negative for injury, rash, and discoloration, Neuro: Negative for headache, weakness, numbness, tingling, and seizure, Psych: Negative for depression, anxiety, suicide ideation, homicidal ideation, and hallucinations, Allergy/Immunology: Negative for hives, rash, and allergies, Endocrine: Negative for neck swelling, polydipsia, polyuria, polyphagia, and marked weight changes, Hematologic/Lymphatic: Negative for swollen nodes, abnormal bleeding, and unusual bruising. Exam: 22:52 Constitutional: This is a well developed, well nourished patient who is awake, alert, mh7 and in no acute distress. Head/Face: Normocephalic, atraumatic. Eyes: Pupils equal round and reactive to light, extra-ocular motions intact. Lids and lashes normal. Conjunctiva and sclera are non-icteric and not injected. Cornea within normal limits. Periorbital areas with no swelling, redness, or edema. Neck: Trachea midline, no thyromegaly or masses palpated, and no cervical lymphadenopathy. Supple, full range of motion without nuchal rigidity, or vertebral point tenderness. No Meningismus. Chest/axilla: Normal chest wall appearance and motion. Nontender with no deformity. No lesions are appreciated. 22:52 Respiratory: Lungs have equal breath sounds bilaterally, clear to auscultation and percussion. No rales, rhonchi or wheezes noted. No increased work of breathing, no retractions or nasal flaring. Abdomen/GI: Soft, non-tender, with normal bowel sounds. No distension or tympany. No guarding or rebound. No evidence of tenderness throughout. Skin: Warm, dry with normal turgor. Normal color with no rashes, no lesions, and no evidence of cellulitis. Psych: Awake, alert, with orientation to person, place and time. Behavior, mood, and affect are within normal limits. 22:52 Cardiovascular: Rate: tachycardic, Rhythm: irregularly irregular, Pulses: no pulse deficits are appreciated, Heart sounds: normal, normal S1and S2, Edema: is not appreciated, JVD: is not appreciated. 22:52 Neuro: Orientation: is normal, Mentation: is normal, Memory: is normal, Cranial nerves: grossly normal, Cerebellar function: is grossly normal, Motor: paraplegia, Sensation: no acute changes, Gait: not tested. paraplegia. seizure activity, is not displayed by the patient, Abnormal movements: there are no abnormal movements. Vital Signs: 22:15 BP 148 / 76; Pulse 151; Resp 17; Pulse Ox 97% on R/A; Weight 106.59 kg (R); Height 5 lp1 ft. 8 in. (172.72 cm); Pain 0/10; 22:16 BP 148 / 76; Pulse 167; Resp 18; Pulse Ox 96% on R/A; benny 22:27 BP 149 / 78; Pulse 163; Resp 18; Pulse Ox 99% on 2 lpm NC; benny 22:56 BP 152 / 83; Pulse 137; Resp 20; Pulse Ox 99% on 2 lpm NC; benny 23:25 BP 101 / 76; Pulse 115; Resp 18; Pulse Ox 99% on 1 lpm NC; benny 08/07 00:40 BP 111 / 63; Pulse 150; Resp 18; Pulse Ox 99% on 1 lpm NC; benny 01:08 BP 103 / 83; Pulse 114; Resp 18; Temp 97.8; Pulse Ox 99% on 1 lpm NC; benny 02:12 BP 116 / 65; Pulse 130; Resp 18; Temp 97.8; Pulse Ox 99% on 2 lpm NC; benny 03:00 BP 138 / 78; Pulse 71; Resp 16; Pulse Ox 97% on 2 lpm NC; benny 03:07 BP 97 / 56; Pulse 70; Resp 16; Temp 97.8; Pulse Ox 99% on 2 lpm NC; benny 03:16 BP 87 / 56; Pulse 68; Resp 17; Pulse Ox 99% on 2 lpm NC; benny 03:30 BP 85 / 50; Pulse 68; Resp 18; Pulse Ox 99% on 2 lpm NC; benny 03:50 BP 133 / 91; Pulse 72; Resp 16; Pulse Ox 100% on 2 lpm NC; benny 04:46 BP 93 / 62; Pulse 68; Resp 16; Temp 97.8; Pulse Ox 99% on 2 lpm NC; benny 05:06 BP 113 / 68; Pulse 70; Resp 16; Temp 97.8; Pulse Ox 99% on 2 lpm NC; benny 05:59 BP 130 / 84; Pulse 67; Resp 16; Temp 97.8; Pulse Ox 99% on R/A; Weight 108.86 kg; benny Height 5 ft. 8 in. (172.72 cm); Pain 0/10; 05:59 Body Mass Index 36.49 (108.86 kg, 172.72 cm) benny MDM: 01:11 Differential diagnosis: arrythmia, dehydration, stress disorder. Data reviewed: vital [facility] signs, nurses notes, lab test result(s), CBC, EKG, radiologic studies, plain films. Data interpreted: Pulse oximetry: on 1L(s) per nasal canula, is 99 %. Interpretation: acceptable. Counseling: I had a detailed discussion with the patient and/or guardian regarding: the historical points, exam findings, and any diagnostic results supporting the discharge/admit diagnosis, lab results, radiology results, the need for further work-up and treatment in the hospital. Response to treatment: the patient's symptoms have markedly improved after treatment. 01:13 Patient medically screened. 08/06 22:34 Order name: Basic Metabolic Panel; Complete Time: 08/06 22:34 Order name: CBC with Diff; Complete Time: : [facility] 08/06 22:34 Order name: LFT's; Complete Time: 08/06 22:34 Order name: Magnesium; Complete Time: 08/06 22:34 Order name: NT PRO-BNP; Complete Time: [facility] 08/06 22:34 Order name: PT-INR; Complete Time: : 08/06 22:34 Order name: Troponin HS; Complete Time: 08/06 22:34 Order name: TSH; Complete Time: [facility] 08/07 01:21 Order name: COVID-19 SARS RT PCR (Document "Date of Onset" if Symptomatic) lp1 08/07 06:06 Order name: Creatine Phosphokinase EDMS 08/07 06:06 Order name: CKMB Creatine Kinase MB [facility] 08/07 06:12 Order name: Troponin High Sensitivity [facility] 08/07 10:27 Order name: Glucose, Ancillary Testing [facility] 08/07 13:03 Order name: Glucose, Ancillary Testing [facility] 08/06 22:34 Order name: XRAY Chest (1 view) [facility] 08/06 22:34 Order name: EKG; Complete Time: 22:35 [facility] 08/06 22:34 Order name: Cardiac monitoring; Complete Time: 01:06 [facility] 08/06 22:34 Order name: EKG - Nurse/Tech; Complete Time: 22:41 [facility] 08/06 22:34 Order name: IV Saline Lock; Complete Time: 01:06 [facility] 08/06 22:34 Order name: Labs collected and sent; Complete Time: 01:06 [facility] 08/06 22:34 Order name: O2 Per Protocol; Complete Time: 01:07 [facility] 08/06 22:34 Order name: O2 Sat Monitoring; Complete Time: 01:07 [facility] 08/06 22:34 Order name: Urine Dipstick-Ancillary (obtain specimen) [facility] 08/07 14:58 Order name: COVID 19 CPL EDWV Administered Medications: 08/06 22:31 Drug: Lopressor (metoprolol) 5 mg {Note: By Elayne Huff RN.} Route: IVP; Site: right lp1 antecubital; 23:15 Drug: Cardizem (diltiazem) 15 mg Route: IVP; Site: right antecubital; benny 08/07 00:33 Drug: Cardizem (diltiazem) 5 mg/hr Route: IV; Rate: 4 mg/hr; Site: right antecubital; benny Disposition Summary: 08/07/21 01:13 Hospitalization Ordered Hospitalization Status: Inpatient Admission [facility] Provider: Yohana Bustos Condition: Stable [facility] Problem: new [facility] Symptoms: have improved [facility] Bed/Room Type: Standard [facility] Location: [facility] ER HOLD(08/07/21 09:30) [facility] Room Assignment: ERHOLD-(08/07/21 09:30) [facility] Diagnosis - Atrial Fibrillation with RVR, New Onset [facility] Forms: - Medication Reconciliation Form [facility] - SBAR form [facility] Signatures: Dispatcher [employer] EDDanny Guerreroa, RN RN 1 Luci Linn RN RN Day Schmitz 5 Jasbir Willis MD MD 7 Elayne Aly RN RN bo Brown, Sophia, PA PA sb3 Corrections: (The following items were deleted from the chart) 01:21 01:13 Intensive Care Unit mh7 cg 01:21 01:13 mh7 cg 06:36 01:21 [facility] ER HOLD cg cg 06:36 01:21 ERHOLD- cg cg 09:30 06:36 Intensive Care Unit cg mh5 09:30 06:36 1- cg mh5 09:30 09:30 mh5 5
[2021-08-07] MEDS ORDERED: TRAMADOL HCL 50 MG TAB PO PRN (02:13)
--- NOTE | 2021-08-07 02:18 | P.HP ---
Certification for Inpatient Patient admitted to: Inpatient With expected LOS: >2 Midnights Patient will require the following post-hospital care: None Practitioner: I am a practitioner with admitting privileges, knowledge of patient current condition, hospital course, and medical plan of care. Services: Services provided to patient in accordance with Admission requirements found in Title 42 Section 412.3 of the Code of Federal Regulations Patient History Date of Service: 08/07/21 Primary Care Provider: Priya Reason for admission: Afib- new onset History of Present Illness: Patient is a 56-year-old male with past medical history of IDDM, hypertension, hypothyroidism, paraplegia, recurrent UTIs secondary to indwelling Valera catheter who presented to the ED with complaints of generalized weakness, hypotension, and subjective syncopal episodes per . He was found to be in A. fib RVR. Patient denies history of A. fib or daily anticoagulant use. IV metoprolol was given without successful conversion. He was then started on a Cardizem drip and eventually converted to NSR after 4 hours. Patient denies chest pain or shortness of breath. Labs significant for troponin HS 109, glucose 306, creatinine 1.8, BUN 20, urine pending. Will admit patient for further evaluation and treatment Allergies metformin Adverse Reaction (Severe, Verified 01/16/21 00:08) kidney damage ibuprofen Adverse Reaction (Verified 01/16/21 00:08) seecom stitches Adverse Reaction (Mild, Uncoded 02/06/20 12:27) Rash Home medications list reviewed: Yes Home Medications: Atorvastatin Calcium 1 tab PO DAILY 01/15/21 Colchicine 1 tab PO BID 01/15/21 Insulin Detemir [Levemir Flextouch] 40 units SQ BID 01/15/21 Levothyroxine Sodium [Euthyrox] 1 tab PO DAILY 01/15/21 Lisinopril [Zestril] 1 tab PO DAILY 01/15/21 Amlodipine [Norvasc*] 10 mg PO DAILY #30 tab 01/19/21 Folic Acid 1 mg PO DAILY #90 tablet 01/19/21 Aspirin [Aspirin EC 81 MG] 162 mg PO DAILY 05/31/21 Furosemide 20 mg PO DAILY 05/31/21 Insulin Aspart See Protocol SQ 05/31/21 Omeprazole 10 mg PO DAILY 05/31/21 Valacyclovir HCl [Valacyclovir] 1,000 mg PO TID 05/31/21 Smz./Tmp. [Bactrim Ds 800 MG/160 MG] 1 tab PO BID #4 tab 06/03/21 - Past Medical/Surgical History Diabetic: Yes -: Diabetes mellitus type 2 -: HTN -: Gout -: Hyperlipidemia -: Hypothyroidism -: Paraplegic secondary to spinal stroke 2013 -: GERD -: CAD -: CKD 3 -: spinal surgery -: 2 hydroceles -: Fistula repair -: Incomplete spinal stroke Psychosocial/ Personal History: Patient is disabled, lives at home with his . - Family History Mother -: Hypertension, Diabetes, Stroke Notes: with gangrene leg - Social History Smoking Status: Never smoker Alcohol use: No CD- Drugs: No Caffeine use: No Place of Residence: Home Review of Systems 10-point ROS is otherwise unremarkable General: Weakness Physical Examination - Physical Exam General: Alert, In no apparent distress HEENT: Atraumatic, PERRLA, EOMI, Sclerae nonicteric Neck: Supple, 2+ carotid pulse no bruit, No LAD, Without JVD or thyroid abnormality Respiratory: Clear to auscultation bilaterally, Normal air movement Cardiovascular: No edema, Irregular heart rate/rhythm Gastrointestinal: Normal bowel sounds, No tenderness Musculoskeletal: No tenderness Integumentary: No rashes Neurological: Normal speech, Normal affect Urinary: Valera catheter - Studies Laboratory Data (last 24 hrs) 08/07/21 00:27: PT 11.6, INR 1.05 08/07/21 00:27: WBC 10.0, Hgb 14.1, Hct 40.4, Plt Count 148 L 08/07/21 00:27: Sodium 135 L, Potassium 3.8, BUN 20 H, Creatinine 1.80 H, Glucose 306 H, Magnesium 1.8, Total Bilirubin 0.6, AST 27, ALT 42, Alkaline Phosphatase 120 H Assessment and Plan - Problems (Diagnosis) (1) New onset a-fib Current Visit: Yes Status: Acute (2) CKD (chronic kidney disease), stage III Onset Date: 04/04/14 Current Visit: Yes Status: Chronic Qualifiers: Chronic kidney disease stage 3 subtype: stage 3b (GFR 30-44) Qualified Code(s): N18.32 - Chronic kidney disease, stage 3b (3) DM2 (diabetes mellitus, type 2) Onset Date: 11/25/16 Current Visit: Yes Status: Chronic Qualifiers: Diabetes mellitus intermediate insulin use: with intermediate use Diabetes mellitus complication status: with hyperglycemia Qualified Code(s): E11.65 - Type 2 diabetes mellitus with hyperglycemia; Z79.4 - [facility] (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 (4) Gastroesophageal reflux disease Onset Date: 10/16/14 Current Visit: No Status: Chronic Qualifiers: Esophagitis presence: without esophagitis Qualified Code(s): K21.9 - Gastro-esophageal reflux disease without esophagitis (5) History of spinal cord injury Current Visit: No Status: Chronic (6) Hyperlipidemia Onset Date: 10/16/14 Current Visit: No Status: Chronic Qualifiers: Hyperlipidemia type: unspecified Qualified Code(s): E78.5 - Hyperlipidemia, unspecified (7) Hypertension Onset Date: 04/04/14 Current Visit: No Status: Chronic Qualifiers: Hypertension type: primary hypertension Qualified Code(s): I10 - Essential (primary) hypertension (8) Obesity (BMI 30-39.9) Current Visit: Yes Status: Chronic (9) Paraplegia Onset Date: 04/04/14 Current Visit: Yes Status: Chronic (10) Chronic indwelling Valera catheter Current Visit: Yes Status: Chronic - Plan -Initially admitted to ICU for cardizem drip. Patient has now converted to NSR. Will downgrade when off cardizem. -Cardiology consulted for new onset afib -Echo ordered -Anticoagulation with heparin -Elevated troponin likely secondary to new onset afib. Will check CPK and CKMB and trend troponin. -Urine pending. Patient complaining of flank pain and has recurrent UTIs that are resistant to multiple antibiotics. Will consult ID if necessary. -Hyperglycemic. ACHS accu checks with moderate sliding scale insulin -Obtain and continue home medications -Full code Discharge Plan: Home Plan to discharge in: Greater than 2 days - Advance Directives Does patient have a Living Will: No Does patient have a Durable POA for Healthcare: No - Code Status/Comfort Care Code Status Assessed: Yes (Full) Critical Care: No Time Spent Managing Pts Care (In Minutes): 70
[2021-08-07] MEDS ORDERED: DILTIAZEM INJ 125 MG in NA CHLORIDE 0.9% 100 ML IV SCH (04:15)
[2021-08-07] MEDS ORDERED: ACETAMINOPHEN 500 MG TAB PO PRN (04:15)
[2021-08-07] MEDS ORDERED: ONDANSETRON 4 MG/2 ML VIAL IV PRN (04:15)
[2021-08-07] MEDS ORDERED: NA CHLORIDE 0.9% 1,000 ML IV SCH (04:15)
[2021-08-07 04:43] VITALS: BMI 36.5
[2021-08-07 06:05] LABS: CKMB Creatine Kinase MB 2.3 ng/mL (1.0-3.6)
[2021-08-07] MEDS: INSULIN -REGULAR HUMAN 50 UNIT/0.5 ML ML SQ SCH ×2 (07:30→12:00)
--- NOTE | 2021-08-07 07:51 | EKG ---
Test Date: 2021-08-06 Test Time: 22:21:33 Shoes Hand Sewer: MEASUREMENT RESULTS: Intervals: Rate: 170 MS: QRSD: 116 QT: 312 QTc: 524 [place]: P: MS: QRS: 116 T: -6 INTERPRETIVE STATEMENTS: Atrial fibrillation with rapid ventricular response with premature ventricular or aberrantly conducted complexes Right bundle branch block Abnormal ECG Compared to ECG 01/16/2021 00:38:44 Ventricular premature complex(es) now present Right bundle-branch block now present Sinus rhythm no longer present Incomplete right bundle-branch block no longer present T-wave abnormality no longer present Electronically Signed On 08-07-21 07:50:19 CDT by Micha Tena
[2021-08-07 08:22] VITALS: O2SAT 96
[2021-08-07] MEDS ORDERED: HEPARIN 5000 UNIT/ML 1 ML VIAL SQ SCH (09:00)
[2021-08-07 09:59] VITALS: BP 130/75
[2021-08-07] MEDS ORDERED: PNEUMOCOCCAL VACCINE 0.5 ML IMVAC ONE (10:00)
[2021-08-07] MEDS ORDERED: HEPARIN 5000 UNIT/ML 1 ML VIAL ONE (10:14)
[2021-08-07] MEDS ORDERED: NA CHLORIDE 0.9% 1,000 ML ONE (10:14)
--- NOTE | 2021-08-07 11:39 | RAD REPORT ---
EXAM DESCRIPTION: XR Chest, 1 View CLINICAL HISTORY: The patient is 56 years old and is Male; PALPITATIONS TECHNIQUE: Frontal view of the chest. COMPARISON: June 01, 2021. FINDINGS: Lungs: Prominent interstitial markings which may indicate mild interstitial edema. Pleural space: Left hemidiaphragm is somewhat obscured which can be seen with left pleural effusi on, as well as left lower lobe consolidation or atelectasis. Blunting of the left costophrenic angle which may indicate left pleural effusion. No pneumothorax. Heart: Unremarkable. Mediastinum: Unremarkable. Bones/joints: Unremarkable. IMPRESSION: 1. Left hemidiaphragm is somewhat obscured which can be seen with left pleural effusio n, as well as left lower lobe consolidation or atelectasis. 2. Prominent interstitial markings which may indicate mild interstitial edema. 3. Blunting of the left costophrenic angle which may indicate left pleural effusion. Electronically signed by: Vega Kerr MD 08/06/2021 11:37 PM CDT Due to temporary technical issues with the PACS/Fluency reporting system, reports are being signed by the in house radiologists without review as a courtesy to insure prompt reporting. The interpreting radiologist is fully responsible for the content of the report.
--- NOTE | 2021-08-07 13:05 | ECHO ---
HEIGHT: 5 ft 8 in WEIGHT: 240 lb 0 oz DATE OF STUDY: 08/07/[address]: Petra Francis 2-DIMENSIONAL: YES M.MODE: YES DOPPLER: YES COLOR FLOW: YES TDS: PORTABLE: YES DEFINITY: BUBBLE STUDY: DIAGNOSIS: NEW ONSET ATRIAL FIBRILLATION CARDIAC HISTORY: CATHERIZATION: NO SURGERY: NO PROSTHETIC VALVE: NO PACEMAKER: NO MEASUREMENTS (cm) DIASTOLIC (NORMALS) SYSTOLIC (NORMALS) IVSd 1.3 (0.6-1.2) LA Diam 2.5 (1.9-4.0) LVEF 50% LVIDd 2.9 (3.5-5.7) LVIDs 2.2 (2.0-3.5) %FS 24% LVPWd 1.3 (0.6-1.2) Ao Diam 3.0 (2.0-3.7) 2 DIMENSIONAL ASSESSMENT: RIGHT ATRIUM: NORMAL LEFT ATRIUM: NORMAL RIGHT VENTRICLE: NORMAL LEFT VENTRICLE: NORMAL TRICUSPID VALVE: NORMAL MITRAL VALVE: NORMAL PULMONIC VALVE: NORMAL AORTIC VALVE: NORMAL PERICARDIAL EFFUSION: NONE AORTIC ROOT: NORMAL LEFT VENTRICULAR WALL MOTION: NORMAL DOPPLER/COLOR FLOW: NORMAL COMMENTS: NORMAL 2-DIMENSIONAL ECHOCARDIOGRAM WITH DOPPLER. NO WALL MOTION ABNORMALITY. NO EFFUSION. TECHNOLOGIST: EMMA MARTINEZ
[2021-08-07] MEDS ORDERED: INSULIN -REGULAR HUMAN 50 UNIT/0.5 ML ML ONE (13:42)
[2021-08-07 15:54] VITALS: TEMP 97.8
--- NOTE | 2021-08-11 15:46 | CON ---
Date of Consultation: 08/07/[address] Bustos on 08/06/2021. I saw him on 08/07/2021. Reason For Consultation: Palpitations and weakness. History Of Present Illness: The patient came in with symptoms that just occurred. He has had sympto ms like that in the past. He did get lightheadedness and dizziness, but denied any syncope or chest pain or nausea or vomiting or shortness of breath. He denied any vertigo, denied any vomiting. Prieto ed any PND, orthopnea, pedal edema, or syncope. He denied any fever or chills. By the time I saw amanda trivedi, he was asymptomatic. Allergies: INCLUDE IBUPROFEN AND METFORMIN. Past Medical History: Includes ADD, diabetes, GERD, gout, high cholesterol, hypertension, hypothyroi dism, paraplegia, migraine headache, renal disease, spinal stroke in the past. Medications: At home include omeprazole, he takes colchicine, lisinopril, Lasix, Lipitor, Synthroid, and he takes nitrofurantoin. Review of Systems: Negative. Social History: Negative. Family History: Noncontributory. Physical Examination: Vital Signs: Stable. He was afebrile. He was in sinus rhythm. HEENT: Negative. Neck: Supple with no bruit. Chest: Clear to auscultation and percussion. Cardiac: Revealed a regular rhythm and rate. No murmurs, gallops, or rubs. Abdomen: Benign. Extremities: Revealed no clubbing, cyanosis, or edema. Diagnostic Data: Creatinine is 1.80, glucose was 259. Troponin was 442. He had a normal echocardio gram. X-ray showed possible mild interstitial edema and maybe a left total effusion that is small. EKG showed atrial fibrillation with rapid ventricular response and right bundle-branch block. Impression And Plan: 1.Atrial fibrillation, new onset. He is back in sinus rhythm. He needs to be on beta-blockers. He needs to be on an anticoagulants either Eliquis or Xarelto. He has a very high CHADS score. He has a normal echocardiogram, but he has hypertension and diabetes. I do not think he needs to be on ant icoagulation and beta-diana. If symptoms reoccur, we may have to put him on sotalol down the road. 2.His other problems include significant renal insufficiency, stage 3. 3.Diabetes. 4.Hypertension. 5.Dyslipidemia. 6.Paraplegia. 7.Gout. 8.Neuropathy. Again, the patient is stable cardiac flores. I think his troponin elevation is seconda ry to the atrial fibrillation and demand ischemia. His echo was normal. He is back in normal rhythm . I am comfortable going home on beta-blockers and an anticoagulant and I will see him in the office in the near future. STANLEY/SNOW Voice ID: [id number] Report ID: [id number]
== END 2021-08-07 15:28 | disposition home or self-care (01) | DRG 309 ==
LOC: ER 22:11 → ERHOLD 08-07 02:32 → 3RD-ICU 08-07 07:19 → UNDODISIN 08-07 10:00
PROVIDERS: ADMIT Hospitalist; ATTEND Hospitalist
DX: I48.91 Unspecified atrial fibrillation (principal); G82.20 Paraplegia, unspecified; E03.9 Hypothyroidism, unspecified; M10.9 Gout, unspecified; E78.5 Hyperlipidemia, unspecified; K21.9 Gastro-esophageal reflux disease without esophagitis; I25.10 Atherosclerotic heart disease of native coronary artery without angina pectoris; I12.9 Hypertensive chronic kidney disease with stage 1 through stage 4 chronic kidney disease, or unspecified chronic kidney disease; E11.22 Type 2 diabetes mellitus with diabetic chronic kidney disease; E11.65 Type 2 diabetes mellitus with hyperglycemia; N18.32 Chronic kidney disease, stage 3b; E66.9 Obesity, unspecified; Z68.36 Body mass index [BMI] 36.0-36.9, adult; Z87.828 Personal history of other (healed) physical injury and trauma; Z79.4 Long term (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; Z96.0 Presence of urogenital implants; Z20.822 Contact with and (suspected) exposure to COVID-19; Z87.440 Personal history of urinary (tract) infections
CPT/HCPCS: 36415; 71045; 80048; 80076; 82550; 82553; 82947; 83735; 83880; 84443; 84484; 85025; 85610; 93005; 93306; 96374; 96375; 99285; J1644; J1815; J7030; U0003

== ENCOUNTER 2021-09-17 17:10 | Emergency (ER) | payer MEDICARE ==
[2021-09-17] MEDS ORDERED: LIDOCAINE 1% MPF 5 ML VIAL ONE (18:04)
[2021-09-17] MEDS ORDERED: BUPIVACAINE 0.25% PF 10 ML VIAL ONE (18:07)
--- NOTE | 2021-09-17 19:18 | ER ---
Nurse's Notes [facility] Name: Ramirez Chaudhari Age: 56 yrs Sex: Male : 1965 Arrival Date: 09/17/2021 Time: 17:11 Bed 11 Private MD: Ramon Powers E Diagnosis: Cutaneous abscess of hand-right index finger Presentation: 09/17 17:22 Chief complaint: Patient states: his PCP wants him to have an inflamed area on the ap3 knuckle of his right index finger drained. Coronavirus screen: At this time, the client does not indicate any symptoms associated with coronavirus-19. Ebola Screen: No symptoms or risks identified at this time. Initial Sepsis Screen: Does the patient meet any 2 criteria? No. Patient's initial sepsis screen is negative. Does the patient have a suspected source of infection? No. Patient's initial sepsis screen is negative. Risk Assessment: Do you want to hurt yourself or someone else? Patient reports no desire to harm self or others. Onset of symptoms was September 17, 2021. 17:22 Method Of Arrival: Wheelchair ap3 17:22 Acuity: NOHEMI 4 ap3 Triage Assessment: 17:24 General: Appears in no apparent distress. Behavior is calm, cooperative, appropriate ap3 for age. Pain: Denies pain. Neuro: Level of Consciousness is awake, alert, obeys commands, Oriented to person, place, time, situation. Cardiovascular: Patient's skin is warm and dry. Respiratory: Airway is patent Respiratory effort is even, unlabored, Respiratory pattern is regular, symmetrical. Derm:. Musculoskeletal: Swelling present in dorsal aspect of middle phalanx of right index finger. Historical: - Allergies: 17:23 Ibuprofen; ap3 17:23 metformin; ap3 - PMHx: 17:23 ADD/ADHD; Diabetes - IDDM; GERD; Gout; High Cholesterol; Hydrocele Left Testicle; ap3 Hypertension; Hypothyroidism; Migraines; Paraplegia; Renal Disease; Spinal Stroke; - Immunization history:: Client reports having NOT received the Covid vaccine. - Social history:: Smoking status: Patient denies any tobacco usage or history of. Screenin:11 Abuse screen: Denies threats or abuse. Denies injuries from another. Nutritional ld1 screening: No deficits noted. Tuberculosis screening: No symptoms or risk factors identified. Fall Risk None identified. Assessment: 18:11 General: Appears in no apparent distress. comfortable, Behavior is calm, cooperative, ld1 appropriate for age. Pain: Denies pain. Neuro: Level of Consciousness is awake, alert, obeys commands, Oriented to person, place, time, situation. Cardiovascular: Capillary refill < 3 seconds Patient's skin is warm and dry. Respiratory: Airway is patent Respiratory effort is even, unlabored. GI: Abdomen is flat, non-distended. : No signs and/or symptoms were reported regarding the genitourinary system. EENT: No signs and/or symptoms were reported regarding the EENT system. Derm: Abscess located on right hand. Vital Signs: 17:22 Pulse 75; Resp 17; Temp 98.7; Pulse Ox 98% ; Weight 108.86 kg; Height 5 ft. 8 in. ap3 (172.72 cm); 17:25 BP 154 / 94; ap3 18:11 BP 149 / 86; Pulse 72; Resp 18; Pulse Ox 99% on R/A; ld1 17:22 Body Mass Index 36.49 (108.86 kg, 172.72 cm) ap3 ED Course: 17:11 Patient arrived in ED. am2 17:12 Ramon Powers MD is Private Physician. am2 17:18 [facility] cp 17:18 Brodie Zheng MD is Attending Physician. cp 17:23 Triage completed. ap3 18:06 Lilliam Nowak, RN is Primary Nurse. aa9 18:11 No provider procedures requiring assistance completed. Patient did not have IV access ld1 during this emergency room visit. 19:16 Devyn Michael MD is Referral Physician. cp 19:22 Arm band placed on right wrist. eh3 19:22 Patient has correct armband on for positive identification. Bed in low position. Call eh3 light in reach. Side rails up X2. Administered Medications: 18:40 Drug: Lidocaine (1 %) 5 ml {Note: Administered by THO Muñoz.} Volume: 5 ml; Route: ld1 Infiltration; 19:23 Follow up: Response: No adverse reaction eh3 18:40 Drug: Marcaine (bupivacaine) (0.5 %) 5 ml {Note: Administered by PA. Wanda} ld1 Volume: 10 ml; Route: Infiltration; 19:23 Follow up: Response: No adverse reaction eh3 Medication: 18:11 VIS not applicable for this client. ld1 Outcome: 19:17 Discharge ordered by . cp 19:22 Discharged to home ambulatory. eh3 19:22 Condition: stable 19:22 Discharge instructions given to patient, family, Instructed on discharge instructions, follow up and referral plans. medication usage, Demonstrated understanding of instructions, follow-up care, medications. 19:39 Patient left the ED. ld1 Signatures: Hank Malone PA PA cp Moreno, Amanda am2 Latricia Erickson, RN RN ap3 Louisa Buckley RN RN ld1 Arabella Kovacs 3 Lilliam Nowak, RN RN aa9 Corrections: (The following items were deleted from the chart) 19:39 19:22 Discharge instructions given to patient, Instructed on discharge instructions, ld1 follow up and referral plans. Demonstrated understanding of instructions, follow-up care, 3
--- NOTE | 2021-09-17 19:18 | EDPHYS ---
Physician Documentation [facility] Name: Ramirez Chaudhari Age: 56 yrs Sex: Male : 1965 Arrival Date: 09/17/2021 Time: 17:11 Bed 11 Private MD: Ramon Powers E ED Physician Brodie Zheng HPI: 09/17 17:45 This 56 yrs old Male presents to ER via Wheelchair with complaints of Finger cp infection/swelling. 17:45 The patient or guardian reports swelling, tenderness. The complaints affect the dorsal cp aspect of middle phalanx of right index finger. 17:45 Context: resulted from an unknown cause. cp 17:45 Onset: The symptoms/episode began/occurred gradually. cp 17:45 Associated signs and symptoms: Pertinent negatives: cyanosis distally, decreased cp sensation distally, fever, numbness distally. Severity of symptoms: in the emergency department the symptoms are unchanged. Patient reports he was referred to ED by pcp to have abscess of right index finger drained. Historical: - Allergies: 17:23 Ibuprofen; ap3 17:23 metformin; ap3 - PMHx: 17:23 ADD/ADHD; Diabetes - IDDM; GERD; Gout; High Cholesterol; Hydrocele Left Testicle; ap3 Hypertension; Hypothyroidism; Migraines; Paraplegia; Renal Disease; Spinal Stroke; - Immunization history:: Client reports having NOT received the Covid vaccine. - Social history:: Smoking status: Patient denies any tobacco usage or history of. ROS: 17:50 Constitutional: Negative for body aches, chills, fever, poor PO intake. cp 17:50 Cardiovascular: Negative for chest pain. cp 17:50 Respiratory: Negative for cough, shortness of breath, wheezing. 17:50 MS/extremity: Positive for swelling, tenderness, of the dorsal aspect of middle phalanx of right index finger, Negative for decreased range of motion, paresthesias. 17:50 All other systems are negative. Exam: 17:55 Constitutional: The patient appears in no acute distress, alert, awake, non-toxic, well cp developed, well nourished. 17:55 Musculoskeletal/extremity: Extremities: noted in the dorsal aspect of middle phalanx of cp right index finger: swelling, tenderness, There is no evidence of decreased ROM, erythema, Perfusion: the extremity is normally perfused throughout, the right index finger Sensation intact. Vital Signs: 17:22 Pulse 75; Resp 17; Temp 98.7; Pulse Ox 98% ; Weight 108.86 kg; Height 5 ft. 8 in. ap3 (172.72 cm); 17:25 BP 154 / 94; ap3 18:11 BP 149 / 86; Pulse 72; Resp 18; Pulse Ox 99% on R/A; ld1 17:22 Body Mass Index 36.49 (108.86 kg, 172.72 cm) ap3 Procedures: 19:15 I \T\ D: Incision and drainage was performed for an abscess of the dorsal aspect of cp middle phalanx of right index finger Prepped with Betadine, Incised with #11 blade. Drained bloody fluid. Dressing: sterile 4x4 gauze, the patient tolerated the procedure well. MDM: 17:27 Patient medically screened. cp 19:17 Data reviewed: vital signs, nurses notes, radiologic studies, plain films. cp 19:17 Counseling: I had a detailed discussion with the patient and/or guardian regarding: the cp historical points, exam findings, and any diagnostic results supporting the discharge/admit diagnosis, radiology results, the need for outpatient follow up, a hand specialist, to return to the emergency department if symptoms worsen or persist or if there are any questions or concerns that arise at home. Response to treatment: the patient's symptoms have mildly improved after treatment, and as a result, I will discharge patient. 09/17 17:35 Order name: I\T\D Setup; Complete Time: 18:11 cp Administered Medications: 18:40 Drug: Lidocaine (1 %) 5 ml {Note: Administered by PA. Wanda} Volume: 5 ml; Route: ld1 Infiltration; 19:23 Follow up: Response: No adverse reaction eh3 18:40 Drug: Marcaine (bupivacaine) (0.5 %) 5 ml {Note: Administered by PA. Wanda} ld1 Volume: 10 ml; Route: Infiltration; 19:23 Follow up: Response: No adverse reaction eh3 Disposition Summary: 09/17/21 19:17 Discharge Ordered Location: Home cp Problem: new cp Symptoms: have improved cp Condition: Stable cp Diagnosis - Cutaneous abscess of hand - right index finger cp Followup: cp - With: Devyn Michael MD - When: 1 - 2 days - Reason: Wound Recheck Discharge Instructions: - Discharge Summary Sheet cp - Skin Abscess cp Forms: - Medication Reconciliation Form cp - Thank You Letter cp - Antibiotic Education cp - Prescription Opioid Use cp Prescriptions: - Doxycycline Hyclate 100 mg Oral Tablet - take 1 tablet by ORAL route every 12 hours; 20 tablet; Refills: 0, Product cp Selection Permitted Addendum: 09/23/2021 21:51 Co-signature as Attending Physician, Brodie Zheng MD. r n Signatures: Brodie Zheng MD MD rn Hank Malone PA PA cp Prokisch, Amanda RN RN ap3 Louisa Buckley RN RN ld1 Arabella Kovacs 3
[2021-09-17 20:03] VITALS: TEMP 98.7
[2021-09-17 20:07] VITALS: BP 149/86; O2SAT 99
== END 2021-09-17 19:39 | disposition home or self-care (01) ==
LOC: ER 17:10
PROC: 0H9FXZZ Drainage of Right Hand Skin, External Approach (ICD-10-PCS; principal; 2021-09-17)
DX: L02.511 Cutaneous abscess of right hand (principal); E11.9 Type 2 diabetes mellitus without complications; I10 Essential (primary) hypertension; Z88.6 Allergy status to analgesic agent; Z88.8 Allergy status to other drugs, medicaments and biological substances
CPT/HCPCS: 99283

== ENCOUNTER 2021-09-24 11:05 | Inpatient (IN) | payer MEDICARE ==
--- NOTE | 2021-09-24 12:20 | ER ---
Nurse's Notes [facility] Name: Ramirez Chaudhari Age: 56 yrs Sex: Male : 1965 Arrival Date: 09/24/2021 Time: 11:08 Bed 25 Private MD: Lavonne Torres Diagnosis: Right hand cellulitis;Right hand swelling Presentation: 09/24 11:46 Chief complaint: Patient states: Right arm swelling for more than a week. Sent by Dr. galloway Powers office for IV antibiotics and possible transfer. Coronavirus screen: Vaccine status: Patient reports being unvaccinated. At this time, the client does not indicate any symptoms associated with coronavirus-19. Ebola Screen: No symptoms or risks identified at this time. Initial Sepsis Screen: Does the patient meet any 2 criteria? No. Patient's initial sepsis screen is negative. Does the patient have a suspected source of infection? No. Patient's initial sepsis screen is negative. Risk Assessment: Do you want to hurt yourself or someone else? Patient reports no desire to harm self or others. Onset of symptoms was September 10, 2021. 11:46 Method Of Arrival: Wheelchair [facility] 11:46 Acuity: NOHEMI 3 7 Triage Assessment: 12:00 General: Appears distressed, uncomfortable, Behavior is calm, cooperative, appropriate bp for age. Pain: Complains of pain in right arm. EENT: No deficits noted. Neuro: Level of Consciousness is obeys commands, Oriented to Appropriate for age PARAPLEGIC BASELINE. Cardiovascular: No deficits noted. Respiratory: No deficits noted. GI: No signs and/or symptoms were reported involving the gastrointestinal system. : No signs and/or symptoms were reported regarding the genitourinary system. Derm: No deficits noted. Musculoskeletal: Swelling present in right arm. Historical: - Allergies: 11:48 Ibuprofen; jl7 11:48 metformin; jl7 - PMHx: 11:48 ADD/ADHD; Diabetes - IDDM; GERD; Gout; High Cholesterol; Hydrocele Left Testicle; jl7 Hypertension; Hypothyroidism; Migraines; Paraplegia; Renal Disease; Spinal Stroke; - Immunization history:: Client reports having NOT received the Covid vaccine. - Social history:: Smoking status: Patient denies any tobacco usage or history of. Screenin:00 Abuse screen: Denies threats or abuse. Denies injuries from another. Nutritional bp screening: No deficits noted. Tuberculosis screening: No symptoms or risk factors identified. Fall Risk None identified. Assessment: 12:00 General: SEE TRIAGE NOTE. bp 14:00 Reassessment: TRANSFER CANCELLED, PT NOW TO BE ADMITTED. bp Vital Signs: 11:46 BP 139 / 84; Pulse 72; Resp 17; Temp 98.1; Pulse Ox 98% ; Weight 108.86 kg; Height 5 jl7 ft. 8 in. (172.72 cm); Pain 10/10; 13:11 BP 168 / 87 LA (auto/); Pulse 81; Resp 18; Pulse Ox 97% on R/A; bm7 14:00 BP 121 / 88; Pulse 73; Resp 16; Pulse Ox 99% ; bp 11:46 Body Mass Index 36.49 (108.86 kg, 172.72 cm) jl7 ED Course: 11:08 Patient arrived in ED. mr 11:09 Lavonne Torres is Private Physician. mr 11:48 Triage completed. jl7 11:48 Arm band placed on right wrist. Patient placed in waiting room, Patient notified of jl7 wait time. 11:51 Steve Davenport DO is Attending Physician. ms3 12:00 Patient has correct armband on for positive identification. Bed in low position. Call bp light in reach. Side rails up X2. 12:30 Duyen Mary, RN is Primary Nurse. bm7 12:31 Rupesh Moyer, NORBERTO is Primary Nurse. bp 12:50 Second set of blood cultures drawn by in. bm7 13:08 Client placed on continuous cardiac and pulse oximetry monitoring. NIBP monitoring bm7 applied. residential monitor on. Lights dimmed. Warm blanket given. 14:26 Tunde Zheng MD is Hospitalizing Provider. ms3 Administered Medications: 13:05 Drug: vancoMYCIN 1 grams Route: IVPB; Infused Over: 2 hrs; Site: left forearm; bm7 Medication: 12:00 VIS not applicable for this client. bp Outcome: 12:19 ER care complete, transfer ordered by . ms3 14:27 Decision to Hospitalize by Provider. ms3 21:05 Admitted to Med/surg accompanied by nurse, via stretcher, room 230, with chart, Report mw called to Marianela Rose RN. 21:06 Patient left the ED. Signatures: Carly Lynn RN RN Tere Keenan mr Nolan, Emelia, RN RN jl7 Rupesh Moyer RN RN Steve Randall DO DO ms3 Duyen Mary, RN RN bm7 Corrections: (The following items were deleted from the chart) 14:31 14:00 Reassessment: TRANSFER ACCEPTED. bp bp
--- NOTE | 2021-09-24 12:20 | EDPHYS ---
Physician Documentation [facility] Name: Ramirez Chaudhari Age: 56 yrs Sex: Male : 1965 Arrival Date: 09/24/2021 Time: 11:08 Bed 25 Private MD: Lavonne Torres ED Physician Steve Davenport HPI: 09/24 14:02 This 56 yrs old Male presents to ER via Wheelchair with complaints of Arm ms3 Swelling. 14:02 The patient or guardian reports a rash, swelling, tenderness. The complaints affect the ms3 right hand diffusely. Context:. Onset: The symptoms/episode began/occurred 10 day(s) ago. Modifying factors: The symptoms are alleviated by nothing, the symptoms are aggravated by nothing. Associated signs and symptoms: Pertinent negatives: fever, vomiting. Severity of symptoms: At their worst the symptoms were severe, in the emergency department the symptoms are unchanged. Patient seen in the ED on 09/17/2021 with drainage of abscess on right 2nd digit. Patient was placed on Doxycycline at that time. Patient followed up with PMD and was placed on Cipro in addition to Doxy. Patient was also given 0.5 mg Dexamethasone BID. Patient symptoms have become worse.. Historical: - Allergies: 11:48 Ibuprofen; jl7 11:48 metformin; jl7 - PMHx: 11:48 ADD/ADHD; Diabetes - IDDM; GERD; Gout; High Cholesterol; Hydrocele Left Testicle; jl7 Hypertension; Hypothyroidism; Migraines; Paraplegia; Renal Disease; Spinal Stroke; - Immunization history:: Client reports having NOT received the Covid vaccine. - Social history:: Smoking status: Patient denies any tobacco usage or history of. ROS: 14:05 Constitutional: Negative for fever, and chills. Neck: Negative for injury, pain, and ms3 swelling, Cardiovascular: Negative for chest pain, and palpitations. Respiratory: Negative for shortness of breath, cough, wheezing, and pleuritic chest pain, Abdomen/GI: Negative for abdominal pain, nausea, vomiting, diarrhea, and constipation. 14:05 Neuro: Negative for headache, weakness, numbness, tingling. 14:05 MS/extremity: Positive for swelling, tenderness, warmth, of the right hand and right arm. 14:05 All other systems are negative. Exam: 14:05 Constitutional: This is a well developed, well nourished patient who is awake, alert, ms3 and in no acute distress. Head/Face: Normocephalic, atraumatic. Neck: Trachea midline, no cervical lymphadenopathy. Supple, full range of motion without nuchal rigidity, or vertebral point tenderness. No Meningismus. Chest/axilla: Normal chest wall appearance and motion. Nontender with no deformity. Cardiovascular: Regular rate and rhythm with a normal S1 and S2. No gallops, murmurs, or rubs. Normal PMI, no JVD. No pulse deficits. Respiratory: Lungs have equal breath sounds bilaterally, clear to auscultation and percussion. No rales, rhonchi or wheezes noted. No increased work of breathing, no retractions or nasal flaring. Abdomen/GI: Soft, non-tender, with normal bowel sounds. No distension or tympany. No guarding or rebound. No evidence of tenderness throughout. 14:05 Skin: cellulitis, that is severe, on the right hand and right arm, on the right hand and right arm, Cellulitis and swelling of right hand and arm. Vital Signs: 11:46 BP 139 / 84; Pulse 72; Resp 17; Temp 98.1; Pulse Ox 98% ; Weight 108.86 kg; Height 5 jl7 ft. 8 in. (172.72 cm); Pain 10/10; 13:11 BP 168 / 87 LA (auto/); Pulse 81; Resp 18; Pulse Ox 97% on R/A; bm7 14:00 BP 121 / 88; Pulse 73; Resp 16; Pulse Ox 99% ; bp 11:46 Body Mass Index 36.49 (108.86 kg, 172.72 cm) jl7 MDM: 12:14 Patient medically screened. ms3 14:05 Differential diagnosis: Cellulitis vs abscess vs hand pain. ms3 14:18 ED course: Attempted transfer to [facility] and they are at capacity.. ms3 14:24 Data reviewed: vital signs, nurses notes. ED course: Discussed case with Dr Bennett. ms3 Patient to be NPO and he will consult on patient.. 09/24 12:02 Order name: Blood Culture Adult (2) ms3 09/24 12:02 Order name: CBC with Diff; Complete Time: 13:04 ms3 09/24 12:02 Order name: CMP; Complete Time: 13:30 ms3 09/24 12:02 Order name: Lactate; Complete Time: 13:30 ms3 09/24 12:02 Order name: Protime (+inr); Complete Time: 13:04 ms3 09/24 12:02 Order name: Ptt, Activated; Complete Time: 13:04 ms3 09/24 12:22 Order name: SARS-COV-2 Antigen Rapid; Complete Time: 13:04 em1 09/24 15:20 Order name: Basic Metabolic Panel EDMS 09/24 15:20 Order name: Basic Metabolic Panel EDMS 09/24 15:20 Order name: Basic Metabolic Panel EDMS 09/24 15:20 Order name: Basic Metabolic Panel EDMS 09/24 15:20 Order name: CBC with Automated Diff EDMS 09/24 15:20 Order name: CBC with Automated Diff EDMS 09/24 15:20 Order name: CBC with Automated Diff EDMS 09/24 15:20 Order name: CONS Physician Consult EDMS 09/24 15:20 Order name: CBC with Automated Diff EDMS 09/24 15:20 Order name: Magnesium EDMS 09/24 15:20 Order name: Magnesium EDMS 09/24 15:20 Order name: Magnesium EDMS 09/24 15:20 Order name: Magnesium EDMS 09/24 16:43 Order name: Vancomycin Level Trough EDMS 09/24 16:48 Order name: Upper Ext Artery Uni Jeff EDMS 09/24 16:48 Order name: UPPER EXTREMITY VENOUS UNILATE EDMS 09/24 17:16 Order name: Glucose, Ancillary Testing EDMS 09/24 20:08 Order name: Glucose, Ancillary Testing EDMS 09/24 20:35 Order name: Uric Acid EDMS 09/24 20:35 Order name: C-Reactive Protein EDMS 09/24 20:38 Order name: Sedimentation Rate, Westergren EDMS 09/24 20:56 Order name: Procalcitonin EDMS 09/24 12:02 Order name: Accucheck; Complete Time: 12:56 ms3 09/24 12:02 Order name: Cardiac monitoring; Complete Time: 12:56 ms3 09/24 12:02 Order name: IV Saline Lock - Large Bore; Complete Time: 12:56 ms3 09/24 12:02 Order name: Labs collected and sent; Complete Time: 12:56 ms3 09/24 12:02 Order name: O2 Per Protocol; Complete Time: 12:56 ms3 09/24 12:02 Order name: O2 Sat Monitoring; Complete Time: 12:56 ms3 09/24 15:20 Order name: 60g Consistent Carbohydrate (ADA ) EDMS 09/24 15:20 Order name: NPO EDMS Administered Medications: 13:05 Drug: vancoMYCIN 1 grams Route: IVPB; Infused Over: 2 hrs; Site: left forearm; bm7 Disposition Summary: 09/24/21 14:27 Hospitalization Ordered Hospitalization Status: Inpatient Admission ms3 Provider: Tunde Zheng ms3 Location: Telemetry/MedSurg (Inpatient) ms3 Condition: Stable(09/24/21 14:27) ms3 Problem: new(09/24/21 14:27) ms3 Symptoms: are unchanged(09/24/21 14:27) ms3 Bed/Room Type: Standard ms3 Room Assignment: 230(09/24/21 18:50) dw Diagnosis - Right hand cellulitis ms3 - Right hand swelling ms3 Forms: - Medication Reconciliation Form ms3 - SBAR form ms3 Signatures: Dispatcher [employer] EDMS Silvia Moreno RN RN dw Emelia Nolan RN RN jl7 Steve Davenport DO DO ms3 Duyen Mary, RN RN bm7 Corrections: (The following items were deleted from the chart) 14:26 12:19 . ms3 ms3 14:26 12:19 [facility] ms3 ms3 14:26 12:19 Higher level of care ms3 ms3 14:26 12:19 Stable ms3 ms3 14:26 12:19 new ms3 ms3 14:26 12:19 are unchanged ms3 ms3 14:26 12:19 Right hand cellulitis ms3 ms3 14:26 12:19 Arm cellulitis ms3 ms3 18:50 14:27 ms3 dw
[2021-09-24] MEDS ORDERED: NA CHLORIDE 0.9% 250 ML ONE ×2 (12:41→17:01)
[2021-09-24] MEDS ORDERED: VANCOMYCIN 1 GM/VIAL ONE ×2 (12:41→17:00)
[2021-09-24 12:50] LABS: Absolute Lymphocytes (CBC) 1.3 K/uL (0.7-4.9); Lymphocytes % 15.2 % (15.3-44.8); MCV 83.9 fL (80-100); MPV 9.3 fL (7.6-11.3); RBC Red Blood Cell Count 4.29 M/uL (4.33-5.43)
[2021-09-24 12:56] LABS: Protime INR 1.15
[2021-09-24 13:03] LABS: SARS-CoV-2 Antigen Rapid Res Negative (Negative)
[2021-09-24 13:08] LABS: Albumin 2.6 g/dL (3.4-5.0); Bilirubin Total 0.5 mg/dL (0.2-1.0); Potassium 4.1 mmol/L (3.5-5.1); Protein, Total 7.3 g/dL (6.4-8.2)
[2021-09-24] MEDS ORDERED: ONDANSETRON 4 MG/2 ML VIAL IV PRN (15:17)
--- NOTE | 2021-09-24 15:22 | P.HP ---
Certification for Inpatient Patient admitted to: Inpatient With expected LOS: >2 Midnights Practitioner: I am a practitioner with admitting privileges, knowledge of patient current condition, hospital course, and medical plan of care. Services: Services provided to patient in accordance with Admission requirements found in Title 42 Section 412.3 of the Code of Federal Regulations Patient History Date of Service: 09/24/21 Reason for admission: RUE pain, cellulitis History of Present Illness: 56yo M, PMH: paraplegia from spinal stroke with chronic indwelling myers, IDDM2, GERD, Gout, HLD, hypothyroidism, CKD3, HTN Presents to ED due to worsening RUE swelling and pain. Patient noticed a small bump on his right index finger ~2 weeks ago for which PCP treated for gout flare with steroids and antibiotics. He had improvement, then developed again. Sent to ED last week for possible I&D of suspected abscess. Patient states I&D performed and only some blood was expressed, no purulent drainage. He was discharged home with antibiotics, which he did not take, since he just completed a course by his PCP. He saw PCP today in office and recommended to come to ED for further eval. In the ED, patient noted to have significant pain and swelling. Dr. Michael consulted by ED physician who will see patient in consult. Patient started on IV Vanc and cultures obtained. No evidence of sepsis. Allergies metformin Adverse Reaction (Severe, Verified 01/16/21 00:08) kidney damage ibuprofen Adverse Reaction (Verified 01/16/21 00:08) seecom stitches Adverse Reaction (Mild, Uncoded 02/06/20 12:27) Rash Home Medications: Atorvastatin Calcium 1 tab PO DAILY 01/15/21 Insulin Detemir [Levemir Flextouch] 40 units SQ BID 01/15/21 Levothyroxine Sodium [Euthyrox] 1 tab PO DAILY 01/15/21 Lisinopril [Zestril] 1 tab PO DAILY 01/15/21 Furosemide 20 mg PO DAILY 05/31/21 Insulin Aspart 30 unit SQ TID 05/31/21 Omeprazole 40 mg PO DAILY 05/31/21 Apixaban [Eliquis] 2.5 mg PO BID #60 tablet 08/07/21 Metoprolol Tartrate [Lopressor] 25 mg PO BID #60 tab 08/07/21 Allopurinol 100 mg PO DAILY 09/24/21 Amlodipine [Norvasc*] 10 mg PO DAILY PRN 09/24/21 Nitrofurantoin Monohyd/M-Cryst [Nitrofurantoin [place]-Mcr 100 mg] 100 mg PO DAILY 09/24/21 Semaglutide [Ozempic] 0.5 mg SQ SEECOM 09/24/21 - Past Medical/Surgical History Diabetic: Yes -: Diabetes mellitus type 2 -: HTN -: Gout -: Hyperlipidemia -: Hypothyroidism -: 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 - Family History Mother -: Hypertension, Diabetes, Stroke Notes: with gangrene leg - Social History Smoking Status: Never smoker Alcohol use: No CD- Drugs: No Caffeine use: No Place of Residence: Home Review of Systems 10-point ROS is otherwise unremarkable Physical Examination - Physical Exam General: Alert, Other (uncomfortable appearing) HEENT: EOMI, Sclerae nonicteric Neck: Supple, No LAD Respiratory: Clear to auscultation bilaterally, Normal air movement Cardiovascular: Regular rate/rhythm, Edema (RUE) Gastrointestinal: Soft and benign, Non-distended, No tenderness Integumentary: Other (RUE: erythema, tenderness of hand up to biceps) Neurological: Normal speech, Normal affect, Other (paraplegia waist down, no sensation distal to bilateral knees, paresthesia of b/l thighs) Urinary: Myers catheter (chronic, indwelling) - Studies Laboratory Data (last 24 hrs) 09/24/21 12:35: PT 12.7 H, INR 1.15, APTT 37.5 H 09/24/21 12:35: Sodium 134 L, Potassium 4.1, BUN 25 H, Creatinine 1.39 H, Glucose 245 H, Total Bilirubin 0.5, AST 14 L, ALT 27, Alkaline Phosphatase 147 H 09/24/21 12:35: WBC 8.3, Hgb 12.3 L, Hct 36.0 L, Plt Count 196 Assessment and Plan - Advance Directives Does patient have a Living Will: No Does patient have a Durable POA for Healthcare: No Physician Review Additional Text: Problem List RUE Cellulitis, concern for tenosynovitis, possible severe gout flare IDDM2 Gout HTN CKD2 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 chronic indwelling myers catheter patient without evidence of sepsis, but has significant pain and swelling of RUE very tender/painful to move; concern for tenosynovitis reports recently treated for gout flare with improvement, then worsened does not appear to have compartment syndrome check venous/arterial US check MRI - eval gout vs tenosynovitis Dr. Michael consulted in ED; NPO after midnight for possible procedure tomorrow if needed pain medication as needed confirm home meds, restart as appropriate patient unsure of what antibiotic he took as outpatient, will get that info accucheks, sliding scale VTE: hold secondary to possible surgery Code: full Dispo: home, ~2-3 days Time Spent Managing Pts Care (In Minutes): 75
[2021-09-24] MEDS ORDERED: VANCOMYCIN 1 GM in NA CHLORIDE 0.9% 250 ML IVPB ONE (16:00)
[2021-09-24] MEDS: CEFTRIAXONE 1,000 MG in NA CHLORIDE 0.9% 50 ML IVPB SCH (16:58)
[2021-09-24] MEDS: NA CHLORIDE 0.9% 1,000 ML IV SCH (16:59)
[2021-09-24] MEDS: MORPHINE 4 MG/ML SYR IV PRN ×2 (16:59→21:02)
[2021-09-24] MEDS ORDERED: MORPHINE 4 MG/ML SYR ONE ×2 (17:00→20:59)
[2021-09-24] MEDS ORDERED: CEFTRIAXONE 1000 MG/VIAL ONE (17:00)
[2021-09-24] MEDS ORDERED: NA CHLORIDE 0.9% 1,000 ML ONE (17:01)
[2021-09-24] MEDS ORDERED: NA CHLORIDE 0.9% 50 ML ONE (17:01)
[2021-09-24] MEDS: INSULIN -REGULAR HUMAN 50 UNIT/0.5 ML ML SQ SCH ×2 (17:26→20:31)
[2021-09-24 17:28] VITALS: BMI 36.5
[2021-09-24] MEDS ORDERED: INSULIN -REGULAR HUMAN 50 UNIT/0.5 ML ML ONE ×2 (17:33→20:19)
--- NOTE | 2021-09-24 18:23 | RAD REPORT ---
EXAM DESCRIPTION: US - Upper Ext Artery Uni Jeff - 09/24/2021 5:17 pm CLINICAL HISTORY: right arm swelling COMPARISON: Extrem Venous W Compress Jeff dated 06/02/2017 FINDINGS: Color Doppler, grayscale, and spectral analysis was performed. Triphasic/ biphasic waveforms present within the right subclavian artery, axillary artery, brachial a rtery, radial artery, and ulnar artery. Peak systolic velocities are within normal limits. No evidence of a stenosis on grayscale. IMPRESSION: No flow limiting stenosis within the right upper extremity major arterial structures.
--- NOTE | 2021-09-24 18:24 | RAD REPORT ---
EXAM DESCRIPTION: US - UPPER EXTREMITY VENOUS UNILATE - 09/24/2021 5:17 pm CLINICAL HISTORY: right arm swelling COMPARISON: No comparisons FINDINGS: Color Doppler, grayscale, and spectral analysis was performed. Negative for venous thrombosis within the right internal jugular vein, subclavian vein, axillary vein , brachial vein, basilic vein, cephalic vein, radial vein, and ulnar vein. All the vessels were compr essible and demonstrated flow on color Doppler. IMPRESSION: Negative for right upper extremity venous thrombosis.
[2021-09-24 20:35] LABS: Uric Acid 7.8 mg/dL (3.5-7.2)
[2021-09-24] MEDS ORDERED: HYDROMORPHONE HCL 1 MG/ML INJ IV ONE (22:24)
[2021-09-25] MEDS: MORPHINE 4 MG/ML SYR IV PRN ×3 (03:46→23:46)
[2021-09-25 05:14] LABS: Magnesium 1.6 mg/dL (1.8-2.4); Potassium 4.4 mmol/L (3.5-5.1)
[2021-09-25 05:15] LABS: Absolute Lymphocytes (CBC) 0.9 K/uL (0.7-4.9); Hematocrit 33.7 % (39.6-49.0); Lymphocytes % 11.9 % (15.3-44.8); MCV 85.4 fL (80-100); MPV 9.7 fL (7.6-11.3); RBC Red Blood Cell Count 3.95 M/uL (4.33-5.43)
--- NOTE | 2021-09-25 06:49 | P.PN ---
Date of Service: 09/25/21 Subjective: mild improvement, pain meds help ROS: 10 point ROS as noted above, otherwise negative Physical Exam General: Alert, uncomfortable HEENT: EOMI, Sclerae nonicteric Respiratory: Clear to auscultation bilaterally, Normal air movement Cardiovascular: Regular rate/rhythm, Edema (RUE) Integumentary: Other (RUE: erythema, tenderness of hand up to biceps) Neurological: Normal speech, Normal affect, Other (paraplegia waist down, no sensation distal to bilateral knees, paresthesia of b/l thighs) Urinary: Myers catheter (chronic, indwelling) Problem List RUE Cellulitis, concern for tenosynovitis, possible severe gout flare IDDM2 Gout HTN CKD2 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 chronic indwelling myers catheter patient without evidence of sepsis, but has significant pain and swelling of RUE very tender/painful to move; concern for tenosynovitis vs gout flare patient took 5 days prednisone, improved, then switched to dexamethasone + antibiotic, was doing ok then worsened off steroids; more consistent with gout flare MRI ordered for further eval venous/arterial US ok Dr. Michael consulted in ED; NPO for possible procedure today pain medication as needed confirm home meds, restart as appropriate accucheks, sliding scale VTE: hold secondary to possible surgery Code: full Dispo: home, ~2 days Time Spent Managing Pts Care (In Minutes): 35
[2021-09-25] MEDS ORDERED: MAGNESIUM SULFATE 1 gm IVPB 1 GM/100 ML BAG IV ONE (08:00)
[2021-09-25] MEDS ORDERED: CEFTRIAXONE 1000 MG/VIAL ONE (08:08)
[2021-09-25] MEDS: CEFTRIAXONE 1,000 MG in NA CHLORIDE 0.9% 50 ML IVPB SCH (08:41)
[2021-09-25] MEDS: INSULIN -REGULAR HUMAN 50 UNIT/0.5 ML ML SQ SCH ×4 (08:46→20:04)
[2021-09-25] MEDS ORDERED: HYDROMORPHONE HCL 0.5 MG/0.5 ML INJ IV ONE (10:45)
[2021-09-25] MEDS: NA CHLORIDE 0.9% 1,000 ML IV SCH ×3 (12:00→22:00)
[2021-09-25] MEDS ORDERED: FENTANYL CITR 100 MCG/2 ML ONE (12:12)
[2021-09-25] MEDS ORDERED: propofoL 200 MG/20 ML VIAL IV ONE (12:12)
[2021-09-25] MEDS ORDERED: LIDOCAINE 1% MPF 2 ML AMPULE ONE (12:13)
[2021-09-25] MEDS ORDERED: MIDAZOLAM HCL 2 MG/2 ML INJ ONE (12:13)
[2021-09-25] MEDS ORDERED: INSULIN -REGULAR HUMAN 50 UNIT/0.5 ML ML ONE (12:14)
--- NOTE | 2021-09-25 12:50 | RAD REPORT ---
EXAM DESCRIPTION: RAD - Hand Right 2 View - 09/25/2021 12:31 pm CLINICAL HISTORY: FOR SURGERY Pain and swelling COMPARISON: Hand Right 3 View dated 09/17/2021; Hand Right 3 View dated 04/10/2015 FINDINGS: There is significant soft tissue swelling along the posterior aspect of the hand and wrist . No soft tissue gas is seen. Focally prominent soft tissue swelling with underlying erosive changes involving the wrist adjacent to the distal ulna could be related gout.
[2021-09-25] MEDS: HYDROMORPHONE HCL 1 MG/ML INJ ONE ×2 (14:08→14:13)
[2021-09-25] MEDS ORDERED: HYDROMORPHONE HCL 1 MG/ML INJ ONE (14:29)
[2021-09-25] MEDS: VANCOMYCIN 2 GM in NA CHLORIDE 0.9% 500 ML IVPB SCH (16:47)
--- NOTE | 2021-09-25 19:12 | CON ---
A 56-year-old male who 3 weeks ago developed an infection . he was treated with off and on antibiotics. Seen in the ER, incision and drainage. Aspiration was attempted of the finger and right now has worse pain over the index finger on the right hand as well as the volar forearm. He has history of diabetes. He is on 40 units b.i.d. as well as 30 units of regular. He has a spinal pathology and paraplegic. He has thyroid disease. He is on multiple medications. He is on list for surgery for his back as well as the hand in the past. Does smoke and drink. No allergies. Physical Examination: On examination, he has marked tenderness and swelling of the right hand PIP, dorsal surface. He also has swelling, tenderness, worse in the volar forearm. Assessment: Tenosynovitis, possibly infection . Plan: Incision and drainage, exploration. WAQAS/SNOW Voice ID: [id number] Report ID: [id number] [facility]ITALCarleen
[2021-09-25] MEDS: JUVEN PACKET PO SCH (20:07)
[2021-09-25] MEDS: INSULIN GLARGINE 100 UNIT/ML SQ SCH (23:50)
[2021-09-26] MEDS: HYDROCODONE/APAP 5/325 MG TAB PO PRN ×3 (04:31→21:32)
[2021-09-26] MEDS: NA CHLORIDE 0.9% 1,000 ML IV SCH ×2 (06:07→17:03)
[2021-09-26 06:14] LABS: Absolute Lymphocytes (CBC) 0.9 K/uL (0.7-4.9); Hematocrit 30.6 % (39.6-49.0); Lymphocytes % 12.3 % (15.3-44.8); MCV 86.1 fL (80-100); MPV 9.2 fL (7.6-11.3); RBC Red Blood Cell Count 3.56 M/uL (4.33-5.43)
[2021-09-26 06:46] LABS: Magnesium 1.7 mg/dL (1.8-2.4); Potassium 4.5 mmol/L (3.5-5.1)
[2021-09-26] MEDS ORDERED: MAGNESIUM SULFATE 1 gm IVPB 1 GM/100 ML BAG IV ONE (07:06)
[2021-09-26] MEDS: INSULIN -REGULAR HUMAN 50 UNIT/0.5 ML ML SQ SCH ×4 (08:05→21:36)
[2021-09-26] MEDS: INSULIN GLARGINE 100 UNIT/ML SQ SCH ×2 (08:05→21:37)
[2021-09-26] MEDS: CEFTRIAXONE 1,000 MG in NA CHLORIDE 0.9% 50 ML IVPB SCH (08:06)
[2021-09-26] MEDS: JUVEN PACKET PO SCH ×2 (08:06→21:34)
[2021-09-26] MEDS: MORPHINE 4 MG/ML SYR IV PRN ×2 (08:28→17:51)
[2021-09-26] MEDS ORDERED: GLUCAGON 1 MG/VIAL IM PRN ×3 (11:33→13:23)
[2021-09-26] MEDS ORDERED: D50W 25 GM/50 ML SYRINGE IV PRN ×3 (11:33→13:23)
[2021-09-26] MEDS ORDERED: METOPROLOL TARTRATE 5 MG/5 ML INJ IV STA ×6 (11:33→18:39)
[2021-09-26] MEDS ORDERED: INSULIN -REGULAR HUMAN 50 UNIT/0.5 ML ML IV ONE ×3 (11:34→13:23)
[2021-09-26] MEDS ORDERED: DEXTROSE 10%-WATER 125 ML IV PRN (11:38)
[2021-09-26] MEDS ORDERED: SOTALOL HCL 80 MG TAB PO ONE (12:51)
[2021-09-26] MEDS ORDERED: METOPROLOL TAR 25 MG TAB PO ONE (13:10)
--- OUTSIDE RECORDS SUMMARY | 2021-09-26 14:15 | XMS REPORT | Continuity of Care Document ---
:1965 Author Organization [facility] t Address [address] [place] [address] Care Team Providers Name Role Phone Ramon Powesr Attending Clinician Unavailable Trevino_M Attending Clinician Unavailable LATHA Attending Clinician Unavailable ROVERTO_S Attending Clinician Unavailable CHARLY Attending Clinician Unavailable ILIANA GOMEZ Attending Clinician Unavailable Raúlvino_M Admitting Clinician Unavailable ROVERTO_S Admitting Clinician Unavailable CHARLY Admitting Clinician Unavailable ILIANA GOMEZ Admitting Clinician Unavailable Payers Payer Name Policy Type Policy Number Effective Date Expiration Date S [facility] [id number] 2020 (MEDICARE 00:00:00 [facility] HMO) Problems This patient has no known [...] Clinicians Facility Department ID 2021-04-03 Outpatient Powers, STLMLC [facility] [id number] Common 14:09:15 Ramon [id number] [facility] 2021-04-03 Outpatient STLMLC STLMLC [id number] Common 12:01:03 [id number] [facility] 2021-09-20 2021-09-20 Outpatient Trevino_M [facility] [id number] -2021 Devoted 03:38:00 03:38:00 0715 [facility] 2021-09-19 2021-09-19 Emergency [facility] [place] [id number] [place] 00:00:00 00:00:00 [facility] 2021-09-19 2021-09-19 ambulatory STLMLC STLMLC [id number] Common 00:00:00 00:00:00 [facility] 2021-09-18 2021-09-18 ambulatory STLMLC STLMLC [id number] Common 00:00:00 00:00:00 [facility] 2021-04-23 2021-04-23 Outpatient Trevino_M [facility] [id number] -2021 Devoted 08:00:00 08:00:00 0215 [facility] 2021-03-12 2021-03-12 Outpatient Trevino_M [facility] [id number] -2021 Devoted 03:11:00 03:11:00 [id number] [facility] 2021-02-11 2021-02-11 Outpatient CURRY_S [facility] [id number] Devoted 05:35:00 05:35:00 [id number] [facility] 2021-02-11 2021-02-11 ambulatory STLMLC STLMLC [id number] Common 00:00:00 00:00:00 [facility] 2021-01-11 2021-01-11 ambulatory STLMLC STLMLC [id number] Common 00:00:00 00:00:00 [facility] 2020-06-15 2020-06-15 Outpatient Fred [facility] [address] 00:09:00 19:09:00 MANDEEP Chowdhury l [facility] 2020-02-14 2020-02-14 Outpatient STLMLC STLMLC [id number] Common 00:00:00 00:00:00 [facility] 2020-02-07 2020-02-07 Outpatient STLC STLC [id number] Common 00:00:00 00:00:00 [facility] 2020-01-17 2020-01-17 Outpatient STLC STLC [id number] Common 00:00:00 00:00:00 [facility] 2020-01-16 2020-01-16 Outpatient STLMLC STLC [id number] Common 00:00:00 00:00:00 [facility] 2020-01-09 2020-01-09 Outpatient STLC STLC [id number] Common 00:00:00 00:00:00 [facility] Results Test Description Test Time Test Comments Results Result Comments Source BLOOD CULTURE 2016-07-07 14:28:00 Test Item Value Reference Range Interpretation Comme nts CULTURE ([facility]) (test code = 1095) No growth in 5 days POCT-GLUCOSE [id number] 12:04:00 Test Item Value Reference Range Interpretation Comments POC-GLUCOSE METER 179 mg/dL 70-110 H TESTED AT [facility] 6720 (BEAKER) (test code = ADOLFO Willett [facility] 1538) [id number] BASIC METABOLIC [id number] 09:51:00 Test Item Value Reference Range Interpretation [...] PATIEN TS. CBC W/PLT COUNT & AUTO [id number] 09:20:00 Test Item Value Reference Range Interpretation [...] L 0.00-0.20 (test code = 417) 0.00POCT-GLUCOSE [id number] 07:15:00 Test Item Value Reference Range Interpretation Comments POC-GLUCOSE METER 246 mg/dL 70-110 H TESTED AT [place] [address] ([facility]) (test code = ADOLFO Willett [facility] 1538) [id number] POCT-GLUCOSE [id number] 21:12:00 Test Item Value Reference Range Interpretation Comments POC-GLUCOSE METER 89 mg/dL 70-110 TESTED AT [place] [address] ([facility]) (test code = ADOLFO Willett [facility] [address] 1538) POCT-GLUCOSE [id number] 17:12:00 Test Item Value Reference Range Interpretation Comments POC-GLUCOSE METER 217 mg/dL 70-110 H TESTED AT [place] [address] ([facility]) (test code = ADOLFO Willett [facility] 1538) [id number] URINE [id number] 12:07:00 Test Item Value Reference Range Interpretation Comments CULTURE ([facility]) (test <10,000 col/mL skin code = 1095) candi POCT-GLUCOSE [id number] 11:30:00 Test Item Value Reference Range Interpretation Comments POC-GLUCOSE METER 205 mg/dL 70-110 H TESTED AT [place] [address] ([facility]) (test code = ADOLFO Willett [facility] 1538) [id number] POCT-GLUCOSE [id number] 07:36:00 Test Item Value Reference Range Interpretation Comments POC-GLUCOSE METER 195 mg/dL 70-110 H TESTED AT [place] [address] ([facility]) (test code = [facility] Tamie [facility] 1538) [id number] CBC W/PLT COUNT & AUTO [id number] 05:14:00 Test Item Value Reference Range Interpretation Comments WHITE BLOOD CELL COUNT ([facility]) 6.7 K/ L 4.0-10.0 (test code = 775) RED BLOOD CELL COUNT ([facility]) 4.40 M/ L 4.20-5.80 (test code = 761) HEMOGLOBIN ([facility]) (test code = 13.3 GM/DL 13.0-16.8 410) HEMATOCRIT ([facility]) (test code = 38.2 % 40.0-50.0 L [...] 0.00-0.20 (test code = 417) 0.00BASI METABOLIC [id number] 05:14:00 Test Item Value Reference Range Interpretation Comments SODIUM (BEAKER) 134 meq/L 136-145 L (test code = 381) POTASSIUM (BEAKER) 4.2 meq/L 3.5-5.1 (test code = 379) CHLORIDE (BEAKER) 101 meq/L 98-107 (test code = 382) CO2 (BEAKER) (test 24 meq/L 22-29 code = 355) BLOOD UREA NITROGEN 20 mg/dL 7-21 (BEAKER) (test code = 354) CREATININE ([facility]) 1.16 mg/dL 0.57-1.25 (test code = 358) GLUCOSE RANDOM 216 mg/dL 70-105 H ([facility]) (test code = 652) CALCIUM ([facility]) 8.8 mg/dL 8.4-10.2 (test code = 697) EGFR ([facility]) (test 67 mL/min/1.73 ESTIMA FAYE GFR IS code = 1092) sq m NOT ACCURATE CREATININE CLEARANCE IN PREDICTING GLOMERULAR FILTRATION RATE . ESTIMATED GFR I S NOT APPLICABLE FOR DIALYSIS PATIEN TS. POCT-GLUCOSE [id number] 21:04:00 Test Item Value Reference Range Interpretation Comments POC-GLUCOSE METER 178 mg/dL 70-110 H TESTED AT [place] [address] ([facility]) (test code = [facility] 1538) [id number] POCT-GLUCOSE [id number] 17:07:00 Test Item Value Reference Range Interpretation Comments POC-GLUCOSE METER 88 mg/dL 70-110 TESTED AT [place] [address] ([facility]) (test code = [facility] [address] 1538) POCT-GLUCOSE [id number] 12:30:00 Test Item Value Reference Range Interpretation Comments POC-GLUCOSE METER 107 mg/dL 70-110 TESTED AT [place] [address] ([facility]) (test code = [facility] 1538) [id number] POCT-GLUCOSE [id number] 07:46:00 Test Item Value Reference Range Interpretation Comments POC-GLUCOSE METER 169 mg/dL 70-110 H TESTED AT [place] [address] ([facility]) (test code = [facility] 1538) [id number] CBC W/PLT COUNT & AUTO [id number] 07:42:00 Test Item Value Reference Range Interpretation Comments WHITE BLOOD CELL COUNT ([facility]) 6.5 K/ L 4.0-10.0 (test code = 775) RED BLOOD CELL COUNT ([facility]) 4.57 M/ L 4.20-5.80 (test code = 761) HEMOGLOBIN ([facility]) (test code = 13.4 GM/DL 13.0-16.8 410) HEMATOCRIT ([facility]) (test code = 40.4 % 40.0-50.0 411) [...] 0.00-0.20 (test code = 417) 0.00BASI METABOLIC [id number] 06:13:00 Test Item Value Reference Range Interpretation [...] NOT APPLICABLE FOR DIALYSIS PATIEN TS. POCT-GLUCOSE [id number] 22:12:00 Test Item Value Reference Range Interpretation Comments POC-GLUCOSE METER 238 mg/dL 70-110 H TESTED AT [place] [address] [facility]) (test code = AD[place]FO [place] 1538) [id number] POCT-GLUCOSE [id number] 17:25:00 Test Item Value Reference Range Interpretation Comments POC-GLUCOSE METER 102 mg/dL 70-110 TESTED AT [place] [address] ([facility]) (test code = ADOLFO Willett [facility] 1538) [id number] URINALYSIS W/ [id number] 12:50:00 Test Item Value Reference Range Interpretation [...] /HPF SOURCE(BEAKER) (test code = 2795) POCT-GLUCOSE [id number] 12:04:00 Test Item Value Reference Range Interpretation Comments POC-GLUCOSE METER 226 mg/dL 70-110 H TESTED AT [facility] 6720 ([facility] (test code = ADOLFO Willett [facility] 1538) [id number] POCT-GLUCOSE [id number] 08:00:00 Test Item Value Reference Range Interpretation Comments POC-GLUCOSE METER 300 mg/dL 70-110 H TESTED AT [facility] 6720 ([facility]) (test code = ADOLFO Willett [facility] 1538) [id number] BASIC METABOLIC [id number] 06:50:00 Test Item Value Reference Range Interpretation [...] PATIEN TS. CBC W/PLT COUNT & AUTO [id number] 06:01:00 Test Item Value Reference Range Interpretation [...] L 0.00-0.20 (test code = 417) 0.00POCT-GLUCOSE [id number] 21:25:00 Test Item Value Reference Range Interpretation Comments POC-GLUCOSE METER 279 mg/dL 70-110 H TESTED AT [facility] 6720 ([facility] (test code = ADOLFO [place] 1538) [id number] HEMOGLOBIN [id number] 21:13:00 Test Item Value Reference Range Interpretation Comments HEMOGLOBIN A1C (BEAKER) (test code = 10.7 % 4.3-6.1 H 368) CBC W/PLT COUNT & AUTO [id number] 20:47:00 Test Item Value Reference Range Interpretation [...] L 0.00-0.20 (test code = 417) 0.00POCT-GLUCOSE [id number] 18:31:00 Test Item Value Reference Range Interpretation Comments POC-GLUCOSE METER 205 mg/dL 70-110 H TESTED AT [place] [address] ([facility]) (test code = ADOLFO [place] 1538) [id number]
[2021-09-26] MEDS: SOTALOL HCL 80 MG TAB PO SCH ×2 (14:32→21:00)
--- NOTE | 2021-09-26 14:33 | EKG ---
Test Date: 2021-09-26 Test Time: 11:26:19 Playground Worker: MARKEL MEASUREMENT RESULTS: Intervals: Rate: 158 [place]: QRSD: 136 QT: 344 QTc: 557 [place]: P: [place]: QRS: 86 T: 7 INTERPRETIVE STATEMENTS: Supraventricular tachycardia Right bundle branch block Abnormal ECG Compared to ECG 08/06/2021 22:21:33 Wide-QRS tachycardia now present Ventricular premature complex(es) no longer present Electronically Signed On 09-26-21 14:33:22 CDT by Kofi Mo
--- NOTE | 2021-09-26 14:33 | EKG ---
Test Date: 2021-09-26 Test Time: 13:05:23 Development Team Lead: MARKEL MEASUREMENT RESULTS: Intervals: Rate: 81 ND: 120 QRSD: 116 QT: 366 QTc: 425 [place]: P: 37 ND: 120 QRS: 84 T: 25 INTERPRETIVE STATEMENTS: Sinus rhythm with premature atrial complexes Right bundle branch block Abnormal ECG Compared to ECG 09/26/2021 11:26:19 Atrial premature complex(es) now present Wide-QRS tachycardia no longer present Electronically Signed On 09-26-21 14:32:47 CDT by Kofi Mo
[2021-09-26] MEDS: VANCOMYCIN 2 GM in NA CHLORIDE 0.9% 500 ML IVPB SCH (16:14)
[2021-09-26] MEDS: DOCUSATE NA 100 MG CAP PO SCH ×2 (16:42→21:31)
--- NOTE | 2021-09-26 18:53 | CON ---
Date of Consultation: 09/26/2021 Reason For Consultation: Rapid heartbeat. History Of Present Illness: A 56-year-old male with history of diabetes, acid reflux, dyslipidemia, paraplegia with a Valera catheter, chronic kidney disease, hypertension, hypothyroidism, presented wit h left upper extremity swelling, had infection, and he had surgical debridement. While on the floor, his heart rate went up to the 150 range. The patient is having no symptoms of chest pain or shortne ss of breath. Past Medical History: As outlined above in the HPI. Medications: Refer to reconciliation sheet for detailed list. Allergies: METFORMIN AND IBUPROFEN. Family History: No premature coronary artery disease or cancer. Social History: He does not smoke or drink. Does not use any drugs. Review of Systems: All systems reviewed and they were negative except for what mentioned in HPI. Physical Examination: Vital Signs: Temperature is 98.4, pulse is 175 now and then it went down to 72, blood pressure is 11 6/67. General: Pleasant middle-aged male, in no distress. Head and Neck: Pupils are equal, reactive to light. Intact eye movements. No JVD. No cervical lym phadenopathy. Neck is supple. Thyroid is not enlarged. Lungs: Clear to auscultation bilaterally. No rhonchi, wheezing, or crackles. No accessory muscle u se. Heart: Tachycardic. No extra sounds. Abdomen: Soft, nontender. Bowel sounds positive. No organomegaly. No masses or hernia. No rigidi ty or rebound. Extremities: No clubbing or cyanosis. Intact pulses. Skin: No rash. Neurologic: Alert, awake, oriented x3. No acute focal deficits appreciated. Lymph Nodes: No cervical or axillary lymphadenopathy. Investigations: Creatinine is 1.3, hemoglobin 10.4, white blood cell count 7.7. Assessment And Recommendations: 1.Atrial fibrillation with rapid ventricular response. Now, his heart rate is went down. We will o btain EKG to see if he is back into sinus rhythm. Can use metoprolol 5 mg IV every 1-2 hours as need ed for rate control and recommend to resume the Eliquis at 5 mg twice a day as his kidney function is acceptable and continue sotalol and I will follow the patient with you. 2.Dyslipidemia, on statin. Continue current management. SR/MODL Voice ID: [id number] Report ID: [id number]
[2021-09-26] MEDS ORDERED: SOTALOL HCL 80 MG TAB PO SCH (20:00)
[2021-09-26] MEDS ORDERED: METOPROLOL TAR 25 MG TAB PO SCH (21:00)
[2021-09-26] MEDS: ATORVASTATIN 40 MG TAB PO SCH (21:32)
[2021-09-26] MEDS ORDERED: INSULIN GLARGINE 100 UNIT/ML SQ ONE (22:36)
--- NOTE | 2021-09-26 22:42 | P.PN ---
Date of Service: 09/26/21 Subjective: swelling slightly improved pain in arm improved has pain in hand, numbness in fingers flipped into afib this afternoon, asymptomatic ROS: 10 point ROS as noted above, otherwise negative Physical Exam General: Alert, NAD HEENT: EOMI, Sclerae nonicteric Respiratory: Clear to auscultation bilaterally, Normal air movement Cardiovascular: Regular rate/rhythm, Edema (RUE) Integumentary: Other (RUE: erythema, tenderness of hand), surgical dressing in place Neurological: Normal speech, Normal affect, Other (paraplegia waist down, no sensation distal to bilateral knees, paresthesia of b/l thighs) Urinary: Myers catheter (chronic, indwelling) Problem List RUE Cellulitis, concern for tenosynovitis, possible severe gout flare IDDM2 Gout HTN CKD2 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 chronic indwelling myers catheter paroxysmal afib patient without evidence of sepsis, but has significant pain and swelling of RUE very tender/painful to move; concern for tenosynovitis vs gout flare patient took 5 days prednisone, improved, then switched to dexamethasone + antibiotic, was doing ok then worsened off steroids venous/arterial US ok Dr. Michael consulted in ED MRI initially ordered for further eval, taken to OR instead due to timing I&D done, unclear what was see, will discuss with Dr. Michael pain medication as needed restart home meds, metoprolol, eliquis patient in afib with RVR up to 180s, given multiple rounds of metoprolol, converted after 3 doses, then back into afib cardiology consulted start sotalol accucheks, sliding scale increase semglee to 40 u BID, remains hyperglycemic VTE: home eliquis Code: full Dispo: home, ~2 days Time Spent Managing Pts Care (In Minutes): 35
[2021-09-27] MEDS: NA CHLORIDE 0.9% 1,000 ML IV SCH ×2 (03:30→13:30)
[2021-09-27] MEDS: MORPHINE 4 MG/ML SYR IV PRN ×2 (03:39→16:31)
[2021-09-27 06:07] LABS: Absolute Lymphocytes (CBC) 1.5 K/uL (0.7-4.9); MCV 85.3 fL (80-100); MPV 9.1 fL (7.6-11.3); RBC Red Blood Cell Count 3.52 M/uL (4.33-5.43)
--- NOTE | 2021-09-27 06:22 | P.PN ---
Date of Service: 09/27/21 Subjective: pain of hand minimally improved still swollen, tender slight serosanguineous drainage ROS: 10 point ROS as noted above, otherwise negative Physical Exam General: Alert, NAD HEENT: EOMI, Sclerae nonicteric Respiratory: Clear to auscultation bilaterally, Normal air movement Cardiovascular: Regular rate/rhythm, Edema (RUE) up to elbow Integumentary: RUE: erythema, tenderness of hand, numbness of index finger Neurological: Normal speech, Normal affect, Other (paraplegia waist down, no sensation distal to bilateral knees, paresthesia of b/l thighs) Urinary: Myers catheter (chronic, indwelling) Problem List RUE pain and inflammation secondary to gout flare IDDM2 Gout HTN CKD2 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 chronic indwelling myers catheter paroxysmal afib patient without evidence of sepsis, but has significant pain and swelling of RUE very tender/painful to move; initial concern for tenosynovitis vs gout flare patient took 5 days prednisone, improved, then switched to dexamethasone + antibiotic, was doing ok then worsened off steroids venous/arterial US ok MRI initially ordered for further eval, taken to OR instead due to timing I&D done, cultures sent - no bacteria, path consistent with gout pain medication as needed start prednisone 20mg BID 09/27, monitor for hyperglycemia, increase long and short acting insulin; higher doses than home regimen continue home meds, metoprolol, eliquis patient was in afib with RVR up to 180s 09/26 , given multiple rounds of metoprolol, converted after 3 doses, then back into afib cardiology consulted sotalol started 09/26, pt in sinus rhythm now Dr. Michael recommended follow up in his office Thursday, 9am VTE: home eliquis Code: full Dispo: home, possibly tomorrow pending improvement of hand, and better glc control Time Spent Managing Pts Care (In Minutes): 35
[2021-09-27 06:24] LABS: Magnesium 1.8 mg/dL (1.8-2.4); Potassium 4.2 mmol/L (3.5-5.1); Thyroid Stimulating Hormone 2.13 uIU/mL (0.360-3.740)
[2021-09-27] MEDS: INSULIN -REGULAR HUMAN 50 UNIT/0.5 ML ML SQ SCH ×4 (07:30→21:00)
[2021-09-27] MEDS: JUVEN PACKET PO SCH ×2 (09:00→20:34)
[2021-09-27] MEDS ORDERED: INSULIN GLARGINE 100 UNIT/ML SQ SCH (09:00)
[2021-09-27] MEDS: APIXABAN 2.5 MG TABLET PO SCH ×2 (09:45→20:31)
[2021-09-27] MEDS: HYDROCODONE/APAP 5/325 MG TAB PO PRN ×2 (09:45→20:42)
[2021-09-27] MEDS: SOTALOL HCL 80 MG TAB PO SCH ×2 (09:45→20:31)
[2021-09-27] MEDS: DOCUSATE NA 100 MG CAP PO SCH ×2 (09:45→20:31)
[2021-09-27] MEDS: CEFTRIAXONE 1,000 MG in NA CHLORIDE 0.9% 50 ML IVPB SCH (09:46)
[2021-09-27] MEDS: predniSONE 20 MG TAB PO SCH ×2 (10:01→20:31)
[2021-09-27] MEDS ORDERED: D50W 25 GM/50 ML SYRINGE IV PRN ×2 (14:32→18:26)
[2021-09-27] MEDS ORDERED: INSULIN LISPRO 100 UNIT/1 ML SQ SCH (17:00)
[2021-09-27] MEDS ORDERED: INSULIN GLARGINE 100 UNIT/ML SQ ONE (18:26)
[2021-09-27] MEDS ORDERED: GLUCAGON 1 MG/VIAL IM PRN (18:26)
[2021-09-27] MEDS ORDERED: INSULIN -REGULAR HUMAN 50 UNIT/0.5 ML ML SQ ONE ×2 (18:27→19:00)
[2021-09-27] MEDS: ATORVASTATIN 40 MG TAB PO SCH (20:31)
[2021-09-27] MEDS: INSULIN GLARGINE 100 UNIT/ML SQ SCH (20:34)
[2021-09-27 20:46] VITALS: O2SAT 99
[2021-09-28] MEDS: MORPHINE 4 MG/ML SYR IV PRN (02:08)
--- NOTE | 2021-09-28 05:57 | PN ---
Date of Progress Note: 09/27/2021 Mr. Chaudhari had come in with recurrent atrial fibrillation. This has resolved. He is on sotalol 80 m g b.i.d. He is on Lasix. He is on aspirin. He is awaiting Hand Surgery consult by Dr. Patel. O therwise, from our standpoint, he can go home. He is asymptomatic from a cardiac standpoint. His EK G does not show any QT prolongation. We will see him in the office as an outpatient. He can go home whenever it is okay with Dr. Zheng. STANLEY/SNOW Voice ID: [id number] Report ID: [id number]
[2021-09-28 06:51] LABS: Potassium 4.4 mmol/L (3.5-5.1)
[2021-09-28] MEDS ORDERED: INSULIN LISPRO 100 UNIT/1 ML SQ SCH (08:00)
[2021-09-28 08:51] VITALS: BP 132/66; TEMP 97.4
--- NOTE | 2021-09-28 08:59 | P.DS ---
Admission Date: 09/24/21 Discharge Date: 09/28/21 Disposition: ROUTINE DISCHARGE Reason for Admission: RUE pain, cellulitis Brief History of Present Illness: 56yo M, PMH: paraplegia from spinal stroke with chronic indwelling myers, IDDM2, GERD, Gout, HLD, hypothyroidism, CKD3, HTN Presents to ED due to worsening RUE swelling and pain. Patient noticed a small bump on his right index finger ~2 weeks ago for which PCP treated for gout flare with steroids and antibiotics. He had improvement, then developed again. Sent to ED last week for possible I&D of suspected abscess. Patient states I&D performed and only some blood was expressed, no purulent drainage. He was discharged home with antibiotics, which he did not take, since he just completed a course by his PCP. He saw PCP today in office and recommended to come to ED for further eval. In the ED, patient noted to have significant pain and swelling. Dr. Michael consulted by ED physician who will see patient in consult. Patient started on IV Vanc and cultures obtained. No evidence of sepsis. 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 Dr. Michael was consulted and took patient to OR for debridement. Cultures were obtained and specimen sent to lab which was negative for bacteria/infection and consistent with gout. Antibiotics were discontinued, patient was started on prednisone. He had some improvement of his arm pain and swelling. Still with some swelling and pain of forearm/hand but improving. discharged with longer taper of steroids to reduce risk of rebound flare dressing as needed if wound has slight drainage recommend elevating right arm above level of his heart as much as possible to assist with swelling. pain medication prescribed Follow up with Dr. Michael in 2 days (Thursday) at 9am in his office. Hospitalization complicated by Atrial fibrillation with RVR -resistant to metoprolol. Cardiology was consulted and patient was switched to sotalol with improvement. -discharge home with sotalol, stop metoprolol, continue eliquis -follow up with Cardiology in a few weeks. Hyperglycemia -patient's insulin was uptitrated. Prednisone initiation also lead to further hyperglycemia -patient had improvement of glucose levels with increasing insulin dose. -He is ~2 days behind on ozempic as well, which will help when restarted. -He has adjusted his insulin while taking steroids recently and is comfortable with this. -he was treated with 50units twice daily of long acting and 25units short acting with meals Physical Exam General: Alert, NAD HEENT: EOMI, Sclerae nonicteric Respiratory: Clear to auscultation bilaterally, Normal air movement Cardiovascular: Regular rate/rhythm, Edema of hand to forearm Integumentary: RUE: erythema, tenderness of hand, numbness of index finger, no purulent drainage Neurological: Normal speech, Normal affect, Paraplegia waist down, no sensation distal to bilateral knees, paresthesia of b/l thighs Urinary: Myers catheter (chronic, indwelling) - replaced on admission Vital Signs/Physical Exam: Temp Pulse Resp BP Pulse Ox 97.4 F 64 15 132/66 97 09/28/21 08:00 09/28/21 08:00 09/28/21 08:00 09/28/21 08:00 09/28/21 08:00 Laboratory Data at Discharge: WBC 9.2 K/uL (4.3-10.9) D 09/27/21 05:36 Hgb 10.4 g/dL (13.6-17.9) L 09/27/21 05:36 Hct 30.0 % (39.6-49.0) L 09/27/21 05:36 Plt Count 199 K/uL (152-406) 09/27/21 05:36 PT 12.7 SECONDS (9.5-12.5) H 09/24/21 12:35 INR 1.15 09/24/21 12:35 APTT 37.5 SECONDS (24.3-36.9) H 09/24/21 12:35 Sodium 135 mmol/L (136-145) L 09/28/21 06:14 Potassium 4.4 mmol/L (3.5-5.1) 09/28/21 06:14 BUN 33 mg/dL (7-18) H 09/28/21 06:14 Creatinine 1.48 mg/dL (0.55-1.3) H 09/28/21 06:14 Glucose 263 mg/dL (74-106) H 09/28/21 06:14 Uric Acid 7.8 mg/dL (3.5-7.2) H 09/24/21 19:56 Magnesium 1.8 mg/dL (1.8-2.4) 09/27/21 05:36 Total Bilirubin 0.5 mg/dL (0.2-1.0) 09/24/21 12:35 AST 14 U/L (15-37) L 09/24/21 12:35 ALT 27 U/L (12-78) 09/24/21 12:35 Alkaline Phosphatase 147 U/L (45-117) H 09/24/21 12:35 Home Medications: Atorvastatin Calcium 1 tab PO DAILY 01/15/21 Insulin Detemir [Levemir Flextouch] 40 units SQ BID 01/15/21 Levothyroxine Sodium [Euthyrox] 1 tab PO DAILY 01/15/21 Lisinopril [Zestril] 1 tab PO DAILY 01/15/21 Furosemide 20 mg PO DAILY 05/31/21 Insulin Aspart 30 unit SQ TID 05/31/21 Omeprazole 40 mg PO DAILY 05/31/21 Apixaban [Eliquis *] 2.5 mg PO BID #60 tablet 08/07/21 Allopurinol 100 mg PO DAILY 09/24/21 Amlodipine [Norvasc*] 10 mg PO DAILY PRN 09/24/21 Nitrofurantoin Monohyd/M-Cryst [Nitrofurantoin [place]-Mcr 100 mg] 100 mg PO DAILY 09/24/21 Semaglutide [Ozempic] 0.5 mg SQ SEECOM 09/24/21 Docusate [Colace Cap*] 100 mg PO BID 30 Days #30 cap 09/28/21 Hydrocodone 5/APAP 325 [[place] 5/325*] 1 tab PO Q6H PRN #20 tab 09/28/21 Sotalol HCl [Betapace*] 80 mg PO BID 30 Days #60 tab 09/28/21 predniSONE [Deltasone*] 10 mg PO SEECOM 20 Days #50 tab 09/28/21 New Medications: Sotalol HCl [Betapace*] 80 mg PO BID 30 Days #60 tab Docusate [Colace Cap*] 100 mg PO BID 30 Days #30 cap predniSONE [Deltasone*] 10 mg PO SEECOM 20 Days #50 tab Hydrocodone 5/APAP 325 [[place] 5/325*] 1 tab PO Q6H PRN #20 tab PRN Reason: Pain Diet: ADA Followup: Lavonne Torres FNP [Primary Care Provider] - Time spent managing pt's care (in minutes): 45
[2021-09-28] MEDS: JUVEN PACKET PO SCH (09:00)
[2021-09-28] MEDS: APIXABAN 2.5 MG TABLET PO SCH (09:38)
[2021-09-28] MEDS: predniSONE 20 MG TAB PO SCH (09:38)
[2021-09-28] MEDS: SOTALOL HCL 80 MG TAB PO SCH (09:38)
[2021-09-28] MEDS: DOCUSATE NA 100 MG CAP PO SCH (09:38)
[2021-09-28] MEDS: INSULIN -REGULAR HUMAN 50 UNIT/0.5 ML ML SQ SCH (09:40)
[2021-09-28] MEDS: INSULIN GLARGINE 100 UNIT/ML SQ SCH (09:41)
[2021-09-28] MEDS: HYDROCODONE/APAP 5/325 MG TAB PO PRN (11:45)
--- NOTE | 2021-10-01 07:49 | OP ---
Surgeon: Devyn Michael MD Preoperative Diagnosis: Tenosynovitis of the hand and forearm. Postoperative Diagnosis: Tenosynovitis of the hand and forearm. Procedure Performed: Synovial biopsy of the index finger proximal interphalangeal joint; synovial biopsy of the volar forearm. Anesthesia: General. Description Of Procedure: After satisfactory induction of general anesthesia, the arm was prepped with Betadine scrub and Betadine paint. Dry sterile drapes were applied in the usual manner. Tourniquet was inflated to 250 mmHg. The hand was placed was placed on the OR table. The patient had previous biopsy of this area, performed for gout. The previous incision was used from surgery 20 years ago. Scalpel was used to elevate the flap, dissected down to the tendon. There was marked inflammation from the gout. Cultures were taken of the fluid present. The bone was removed as well. The gouty tophi were excised as much as possible. Attention was then turned to the volar forearm. a linear incision was made approximately 5 cm proximal to the wrist flexion crease The median nerve was identified, it was quite compressed. The tenosynovium was markedly inflamed proximally. Synovial biopsy was taken as well as cultures. Tourniquet was released. Electrocautery was used for hemostasis. Wound was closed with 4- 0 Prolene in vertical mattress. The finger was closed with 5-0 Prolene horizontal mattress. Dressed with Xeroform, 2-inch Olimpia. The patient tolerated the procedure well and returned to Recovery. WAQAS/SNOW Voice ID: [id number] Report ID: [id number] AUSTYN
== END 2021-09-28 13:30 | disposition home or self-care (01) | DRG 501 ==
LOC: ER 11:05 → ERHOLD 16:12 → 2ND 20:59
PROVIDERS: ADMIT Hospitalist; ATTEND Hospitalist
PROC: 0LB Tendons, Excision (ICD-10-PCS; 2021-09-25)
PROC: 0LB Tendons, Excision (ICD-10-PCS; principal; 2021-09-25 12:00)
DX: M10.9 Gout, unspecified (principal); G82.20 Paraplegia, unspecified; I12.9 Hypertensive chronic kidney disease with stage 1 through stage 4 chronic kidney disease, or unspecified chronic kidney disease; E11.22 Type 2 diabetes mellitus with diabetic chronic kidney disease; N18.2 Chronic kidney disease, stage 2 (mild); E66.9 Obesity, unspecified; Z68.36 Body mass index [BMI] 36.0-36.9, adult; I69.365 Other paralytic syndrome following cerebral infarction, bilateral; I48.0 Paroxysmal atrial fibrillation; E11.65 Type 2 diabetes mellitus with hyperglycemia; E03.9 Hypothyroidism, unspecified; E78.5 Hyperlipidemia, unspecified; M65.841 Other synovitis and tenosynovitis, right hand; M65.831 Other synovitis and tenosynovitis, right forearm; Z96.0 Presence of urogenital implants; Z20.822 Contact with and (suspected) exposure to COVID-19
CPT/HCPCS: 36415; 80048; 80053; 80202; 82947; 83605; 83735; 84145; 84439; 84443; 84550; 85025; 85610; 85652; 85730; 86140; 87040; 87070; 87075; 87205; 87811; 88305; 93005; 93931; 93971; 94760; 96374; 99285; J1170; J1815; J2250; J2704; J3010; J3370; J3475; J7030; J7040; J7050; J7512

== ENCOUNTER 2021-11-21 21:08 | Observation (INO) | payer MEDICARE ==
--- OUTSIDE RECORDS SUMMARY | 2021-11-21 21:14 | XMS REPORT | Continuity of Care Document ---
:1965 Author Organization [facility] t Address [address] [place] [address] Care Team Providers Name Role Phone Priya Baltazar MD, William Primary Care Physician [phone] Ramon Powers Attending Clinician Unavailable Tello_Devante Attending Clinician Unavailable Terrell Azul MD Attending Clinician Avis Jackson Attending Clinician Nell Franco Attending Clinician ROVERTO_Kat Attending Clinician Unavailable Mandeep Parks Attending Clinician MANDEEP PARKS Attending Clinician Unavailable FAITH GOMEZ Attending Clinician Unavailable Birdie Virgen Attending Clinician Gamaliel Nicholas Attending Clinician Cori Martinez Attending Clinician Tung Azevedo Jr Attending Clinician Roxana Admitting Clinician Unavailable MICHELLE Admitting Clinician Unavailable Mandeep Parks Admitting Clinician MANDEEP PARKS Admitting Clinician Unavailable FAITH GOMEZ Admitting Clinician Unavailable Payers Payer Name Policy Type Policy Number Effective Date Expiration Date Kat MENA [id number] 2020 (MEDICARE 00:00:00 REPLACEMENT HMO) Problems Condition Condition Condition Status Onset Resolution Last Treating Co mments Source Name Details Category Date Date Treatment Clinician Date ACUTE ACUTE Diagnosis Active 2020-06-27 [facility] oria CHEST PAIN CHEST PAIN 06-14 21:53:00 l Active 00:00: Garvin 06/14/2020 00 [facility] CHEST PAIN CHEST Diagnosis Active 2020-06-14 [facility] 06-14 23:21:00 l Active 00:00: Garvin 06/14/2020 00 [facility] Epididymit Epididymit Disease Active [facility] is, [facility] 4[facility] 00 [place] DM2 DM2 Disease Active [facility] (diabetes (diabetes 4-24 [facility] mellitus, mellitus, 00:00: Medi timothy type 2) type 2) 00 Center HTN HTN Disease Active [facility] (hypertens (hypertens 4-24 Cindy kes ion) ion) 00:00: Medical 00 [place] Hypothyroi Hypothyroi Disease Active [facility] 00 [place] F/U F/U Diagnosis Active 2013-032014-06-06 Mem oria Active 03-13 12:19:00 l 01/11/2014 00:00: Jose AQUINO [facility] 00 EVAL EVAL Diagnosis Active 2013-12-14 Mem oria Active 11-15 15:03:00 l 11/15/2013 00:00: Jose AQUINO [facility] 00 DC F/U DC F/U Diagnosis Active 2013-12-20 Me moria Active 09-12 15:41:00 l 09/12/2013 00:00: Jose AQUINO [facility] 00 FERT FERT Diagnosis Active 2013-11-08 Mem oria Active 06-21 01:18:00 l 06/21/2013 00:00: Jose barajas [facility] 00 ED ED Active Diagnosis Active 2013-11-08 Memoria 06-20 01:18:00 l 4 MH [facility] 00:00: Shady 00 NO ORDERS NO ORDERS Diagnosis Active 2013-11-08 Memoria WRITTEN WRITTEN 05-24 01:18:00 l Active 00:00: Shady 05/24/2013 00 [facility] NEUROGENIC Diagnosis Active 2014-07-28 Memoria BLADDER NEUROGENIC - 16:13:00 l BLADDER 00:00: Shady Active 00 04/19/2013 MH [facility] TBI TBI Diagnosis Active 2013-12-12 Mem oria Active 03-09 12:27:00 l 03/09/2000 23:59: Jose barajas [facility] 00 SCI SCI Diagnosis Active 2014-09-13 Mem oria Active 03-09 16:37:00 l 03/09/2000 08:00: Jose barajas [facility] 00 Diabetes(C Diabetes( Problem Active 2014-02-22 Memoria onfirmed) Confirmed) 19:04:26 l Active Garvin Problem 02/22/2014 [facility] GOUT(Confi GOUT(Conf Problem Active 2014-02-22 Memoria rmed) irmed) 19:04:26 l Active Shady Problem 02/22/2014 [facility] Pure Pure Problem Active 2014-02-22 Memor ia hyperchole hyperchole 19:04:26 l sterolemia sterolemia Abner cash (disorder) (disorder) Active Problem 02/22/2014 [facility] Impotence Impotence Problem Active 2020-06-17 Memoria (disorder) (disorder) 22:29:12 l Active Garvin Problem 06/17/2020 [facility] Neurogenic Neurogeni Problem Active 2020-06-17 Memoria bladder c bladder 22:29:12 l (finding) (finding) Herm yogesh Active Problem 06/17/2020 [facility] Spinal Spinal Problem Active 2020-06-17 Brandon karina cord cord 22:29:12 l injury injury Shady (disorder) (disorder) Active Problem 06/17/2020 [facility] CHEST CHEST Diagnosis Active 2020-06-27 Me moria PAIN, PAIN, 21:53:00 l UNSPECIFIE UNSPECIFIE Abner cash D D Active [facility] ILLNESS, ILLNESS, Diagnosis Active 2020-06-14 Memoria UNSPECIFIE UNSPECIFIE 23:21:00 l D D Active Shady [facility] Spinal Spinal Problem Resolve 2020-06-17 2020-06-17 Memoria cord cord d 11-15 22:29:12 22:29:12 l stroke stroke 00:00: Shady (disorder) (disorder) 00 Resolved 11/15/2013 Problem 06/17/2020 apr 19 2013 [facility] Diabetes Diabetes Problem Resolve 2020-06-17 2020-06-17 Memoria mellitus mellitus d 07-08 22:29:12 22:29:12 l (disorder) (disorder) 00:00: He rmann Resolved 00 07/08/2013 Problem 06/17/2020 [facility] GOUT(Confi GOUT(Conf Problem Resolve 2020-06-17 2020-06-17 Memoria rmed) irmed) d 07-08 22:29:12 22:29:12 l Resolved 00:00: Shady 07/08/2013 00 Problem 06/17/2020 [facility] Hyperchole Hyperchol Problem Resolve 2020-06-17 2020-06-17 Memoria sterolemia esterolemi d 07-08 22:29:12 22:29:12 l (disorder) a 00:00: Jose barajas (disorder) 00 Resolved 07/08/2013 Problem 06/17/2020 [facility] Essential Essential Problem Resolve 2020-06-17 2020-06-17 Memoria hypertensi hypertensi d 07-08 22:29:12 22:29:12 l on on 00:00: Shady (disorder) (disorder) 00 Resolved 07/08/2013 Problem 06/17/2020 ADEN,[facility] Allergies, Adverse Reactions, Alerts Allergy Allergy Status Severity Reaction(s) Onset Inactive Treating Comm ents Source Name Type Date Date Clinician IBUPROFE Allergy [facility] METFORMI Allergy Active [facility] Ibuprofe Propensi Active [facility]ney [facility] to 4-24 problems [facility] adverse 00:00: Medical reaction 00 Center s Metformi Propensi Active Kidney [facility] to 4-24 [facility] adverse 00:00: Medical reaction 00 Center s ibuprofe ibuprofe Active Memori a n n l Shady metFORMI metFORMI Active Memori a N N l Shady Family History Family Member Diagnosis Comments Start Date Stop Date Source Natural mother Diabetes [facility] Natural sister Diabetes [facility] Natural brother Kidney disease [facility] Social History Social Habit Start Date Stop Date Quantity Comments Source Tobacco use and 2016-07-01 2016-07-01 Former user [facility] ukes exposure 00:00:00 00:00:00 [facility] Alcohol intake 2016-07-01 2016-07-[address] [facility] Eddie es 00:00:00 00:00:00 non-drinker of [facility] nter alcohol (finding) Social History 2013-04-20 2013-04-20 [facility] 11:02:37 11:02:37 History of 1986-06-30 [facility] tobacco use 00:00:00 tobacco [facility] Sex Assigned At [birth year] [facility] 00:00:00 00:00:00 Hospital Smoking Status Start Date Stop Date Source Tobacco smoking [facility] consumption unknown Former smoker 2016-07-01 00:00:00 2016-07-01 [facility] 00:00:00 Center Medications Ordered Filled Start Stop Current Ordering Indication Dosage Frequency Signature Comments Components Source Medication Medication Date Date Medication? Clinician (SIG) Name Name ciprofloxac Yes 750mg Q.5D Take 750 M ethodi in HCl 7-[address] (CIPRO) 750 18:31: mouth 2 Hos vee MG tablet 02 (two) l times a day. dexamethaso Yes 1mg Q.5D Take 1 mg M ethodi ne 7-[address] (DECADRON) 18:31: (two) Hospit a 0.5 MG 02 times a l tablet day with meals. colchicine 2021- No .6mg QD Take 1 Meth segundo 0.6 mg 7-14 08-[address] tablet 00:00: 04:59 (0.6 mg Hospita 00 :00 total) by l mouth daily for 30 days. atorvastati No Notes: Brandon karina n 4-10 (Same As: l 02:00: Lipitor) Garvin 00 cefdinir Yes 300 mg = 1 Mem oria 300 MG Oral 4-09 cap, PO, l Capsule 22:52: Q12H, X 7 Love nn 00 day, # 14 cap, 0 Refill(s), Pharmacy: [facility], 172.72, cm, 06/14/20 23:37:00 CDT, Height, 106.545, kg, 06/14/20 23:37:00 CDT, Weight Colchicine Yes 0.6 mg = 1 M emoria 0.6 MG Oral 4-09 tab, PO, l Tablet 22:36: BID, 0 Garvin 00 Refill(s) pravastatin Yes 20 mg = 1 M emoria 20 mg oral 4-09 tab, PO, l tablet 22:36: Bedtime, # Love nn 00 90 tab, 0 Refill(s), Pharmacy: [facility] 527, 172.72, cm, 06/14/20 23:37:00 CDT, Height, 106.545, kg, 06/14/20 23:37:00 CDT, Weight pantoprazol Yes 40 mg = 1 M emoria e 40 mg 4-09 tab, PO, l oral 22:36: Before Shady enteric 00 Breakfast, coated # 30 tab, tablet 0 Refill(s), Pharmacy: [facility] 527, 172.72, cm, 06/14/20 23:37:00 CDT, Height, 106.545, kg, 06/14/20 23:37:00 CDT, Weight { Yes See Memoria (Methylpred 4-09 Instructio l nisolone 4 22:36: ns, PO, Herm yogesh MG Oral 00 Take by Tablet mouth as [Medrol]) } directed Pack on label., [Medrol X 6 day, # Dosepak] 21 tab, 0 Refill(s), Pharmacy: [facility] 527, 172.72, cm, 06/14/20 23:37:00 CDT, Height, 106.545, kg, 06/14/20 23:37:00 CDT, Weight NovoLog No 30 unit, Memori a - Route: l 21:30: SUB-Q, Shady 00 TID-Before Meals, Dosing Weight 106.545, kg, Start date: 06/15/20 16:30:00 CDT, Duration: 30 day, Stop date: 07/15/20 11:30:00 CDT Humalog No Notes: Memoria - (Same as: l 21:30: Humalog) Shady 00 Roll in palms of hands gently; Do not shake vigorously . WASTE: F/P - Black; E - Municipal Trash Bin Stable for 28 days at room temperatur e. Expires in days from ____Date Ceftriaxone No Notes: Brandon karina - (Same As: l 21:00: Rocephin). Garvin Use with 100 mL NS and infuse over 30 min MEDICATION WASTE Product Size: 1000 mg Product Wasted: ___ mg Insulin No Notes: Memoria Glargine 06-15 (Same as: l 15:00: Lantus) Do Garvin 00 not hold insulin without contacting prescriber WASTE: F/P - Black; E - Municipal Trash Bin "single patient use only" Stable for 28 days at room temperatur e Expires in days from ____Date Protonix No Notes: Memoria -09 Tablet l 14:28: should not Garvin 00 be chewed or crushed. (Same as: [...] No Notes: Brandon karina 160 MG Oral 4-09 Non-Formul l Tablet 14:00: noe Drug (Same as: Tricor) Furosemide No Notes: Memor [...] 21:00:00 CDT Thyroxine No Notes: Memori a - Take 1 l 14:00: hour before or 2 hours after meal; Enteral feeds may interefere with the absorption of this medication . (Same as:Synthro id, Levothroid ) Aspirin 81 No Notes: Memor ia MG Chewable 06-15 Take with l Tablet 14:00: food. Saline No Notes: Memoria Flush 0.9% 06-15 (Same as: l 14:00: BD Posiflush) BD Normal No Notes: Memori a Saline 06-15 (Same as: l Flush 12:44: BD Posiflush) [...] 06-15 25 mL, l (D50W) 12:36: Route: IVP, Drug Form: INJ, Dosing Weight 106.545, kg, PRN, PRN Blood Glucose Results, Start date: 06/15/20 7:36:00 CDT, Duration: 30 day, Stop date: 07/15/20 7:35:00 CDT, 0 Glucagon No 1 mg, Memoria 06-15 Route: IM, l 12:36: Drug form: Garvin 00 PDR/INJ, PRN, Dosing Weight 106.545, kg, PRN [...] tab, PO, l tablet 05:00: Daily, 0 Shady 00 Refill(s) NovoLog Yes See Memoria 06-15 Instructio l 04:58: ns, 30 U Shady 00 SUB-Q TID-Before Meals, 0 Refill(s) insulin Yes See Memoria detemir 100 06-15 Instructio l UNT/ML 04:57: ns, 40U Shady Injectable 00 BID SUB-Q, Solution 0 [Levemir] Refill(s) levothyroxi Yes 75 Memori a ne 75 mcg 06-15 microgram l (0.075 mg) 04:56: = 1 tab, Her minor oral tablet 00 PO, Daily, 0 Refill(s) Aspirin Yes 81 mg, PO, Brandon karina 4-09 Daily, 0 l 04:56: Refill(s) Fenofibrate Yes 160 mg = 1 Memoria 160 MG Oral - tab, PO, l Tablet 04:55: Daily, 0 Refill(s) Furosemide Yes 20 mg = 1 Me moria 20 MG Oral - tab, PO, l Tablet 04:55: Daily, 0 Refill(s) Colchicine No 0.6 mg = 1 M emoria 0.6 MG Oral 4- tab, PO, l Tablet 04:54: BID, 0 Refill(s) atenolol Yes 50mg QD Take [address] [facility] [facility] (TENORMIN) 4-28 by mouth [facility] 50 MG 15:23: daily. Medical tablet 08 Center oxybutynin Yes 5mg [id number] Take [address] [facility] (DITROPAN) -28 [id number] by mouth 3 [facility] 5 MG tablet 15:23: 3D (three) Med ical 08 times Center daily. pantoprazol Yes 40mg QD Take [address] [facility] e 4-28 by mouth [facility] (PROTONIX) 15:23: daily Medica l 40 MG 08 Before Center tablet breakfast . levothyroxi Yes 75ug Take [address] ne 4-28 mcg by [facility]ukes (SYNTHROID, 15:23: mouth Medic al LEVOTHROID) 08 Every Center 75 MCG morning on tablet an empty stomach. insulin Yes 36U Q.5D Inject 36 [facility] detemir 4-28 Units [facility] (LEVEMIR) 15:23: subcutaneo Me dical 100 unit/mL 08 usly 2 Center (3 mL) InPn (two) injection times daily pen . insulin Yes 20U Inject 20 [facility] lispro 4-28 Units [facility] (HUMALOG) 15:23: subcutaneo Me dical 100 unit/mL 08 usly 3 Center injection (three) times daily before meals Sliding scale starts at 20 units . colchicine Yes .6mg Take 0.[address] [facility] [facility] (COLCRYS) 4-28 mg by [facility] 0.6 mg 15:23: mouth 2 Medical tablet 08 (two) Center times daily as needed As needed for gout . heparin, Yes 7,500 Memoria porcine 5-02 unit, l 16:46: SUB-Q, Garvin 00 Q12H, 0 Refill(s) glimepiride Yes 4 mg = 1 Me moria 4 mg oral 5-02 tab, PO, l tablet 16:46: Daily, # Shady 00 30 tab, 0 Refill(s) Docusate Yes 100 mg = 1 Mem oria Sodium 100 5-02 cap, PO, l MG Oral 16:46: BID, Garvin Capsule 00 Constipati [Colace] on, # 20 cap, 0 Refill(s) Bisacodyl Yes 10 mg = 1 Mem oria 10 MG 5-02 supp, SD, l Rectal 16:46: Daily, Shady Suppository 00 Constipati [Bisac-Evac on, # 10 ] supp, 0 Refill(s) Atenolol 50 Yes 50 mg = 1 M emoria MG Oral 5-02 tab, PO, l Tablet 16:46: Daily, # Garvin 00 30 tab, 0 Refill(s) allopurinol Yes [...] 5-02 Instructio l tablet 16:46: ns: at Shady 00 noon Ranitidine Yes 150 mg = [...] l 15:20: as:Omnipaq Shady 00 ue 300). Immunizations Ordered Immunization Filled Immunization Date Status Commen ts Source Name Name pneumococcal 2013-04-21 Completed [facility] 23-valent vaccine 03:02:00 Garvin influenza virus 2013-04-21 Completed [facility] vaccine, inactivated 03:02:00 [facility] yogesh Vital Signs Vital Name Observation Time Observation Value Comments Source Systolic blood 2021-09-19 22:03:00 127 mm[Hg] [facility] pressure Diastolic blood 2021-09-19 22:03:00 79 mm[Hg] [facility] pressure Heart rate 2021-09-19 22:03:00 80 /min [facility] Body temperature 2021-09-19 22:03:00 36.72 Awilda [facility] Respiratory rate 2021-09-19 22:03:00 18 /min [facility] Oxygen saturation in 2021-09-19 22:03:00 97 /min [facility] Arterial blood by Pulse oximetry Body height 2021-09-19 19:13:00 172.7 cm [facility] Body weight 2021-09-19 19:13:00 108.863 kg [facility] BMI 2021-09-19 19:13:00 36.49 kg/m2 [facility] Temperature Oral (F) 2020-06-15 20:48:00 98.0 F [facility] Heart Rate 2020-06-15 20:48:00 [facility] Respitory Rate 2020-06-15 20:48:00 Evin al Garvin Systolic (mm Hg) 2020-06-15 20:48:00 Brandon Laneann Diastolic (mm Hg) 2020-06-15 20:48:00 Mem orial Shady Temperature Oral (F) 2020-06-15 17:22:00 97.6 F [facility] [place] Heart Rate 2020-06-15 17:22:00 Memorial [place] Respitory Rate 2020-06-15 17:22:00 Memori al [place]ady Systolic (mm Hg) 2020-06-15 17:22:00 Brandon rial Garvin Diastolic (mm Hg) 2020-06-15 17:22:00 Mem orial Shady Temperature Oral (F) 2020-06-15 12:55:00 97.6 F [facility] [place] Heart Rate 2020-06-15 12:55:00 [facility] [place] Respitory Rate 2020-06-15 12:55:00 Memori al [place] Systolic (mm Hg) 2020-06-15 12:55:00 Brandon rial Shady Diastolic (mm Hg) 2020-06-15 12:55:00 Mem orial Shady BMI Calculated 2020-06-15 05:09:00 Memori al [place]ady Height 2020-06-15 04:37:00 172.72 cm [facility] [place] Weight 2020-06-15 04:37:00 [facility] [place] BMI Calculated 2020-06-15 04:37:00 Memori al [place] Heart Rate 2014-02-11 18:33:00 Memorial [place] Systolic (mm Hg) 2014-02-11 18:33:00 Brandon rial Shady Diastolic (mm Hg) 2014-02-11 18:33:00 Mem orial Shady Systolic (mm Hg) 2014-01-21 16:31:00 Brandon rial Shady Heart Rate 2014-01-21 16:31:00 Memorial [place] Diastolic (mm Hg) 2014-01-21 16:31:00 Mem orial [place] Heart Rate 2013-12-24 17:08:00 Memorial [place] Diastolic (mm Hg) 2013-12-24 17:08:00 Mem orial Shady Systolic (mm Hg) 2013-12-24 17:08:00 Brandon rial Garvin Systolic (mm Hg) 2013-12-17 17:32:00 Brandon rial Garvin Heart Rate 2013-12-17 17:32:00 Memorial [place] Diastolic (mm Hg) 2013-12-17 17:32:00 Mem orial Shady Heart Rate 2013-12-14 20:29:00 Memorial [place] Diastolic (mm Hg) 2013-12-14 20:29:00 Mem orial Shady Respitory Rate 2013-12-14 20:29:00 Memori al [place] Systolic (mm Hg) 2013-12-14 20:29:00 Brandon rial Shady BMI Calculated 2013-12-14 20:29:00 Memori al [place]ady Weight 2013-12-14 20:29:00 Memorial [place] Height 2013-12-14 20:29:00 172.72 cm Memorial [place]ady Diastolic (mm Hg) 2013-12-10 14:08:00 Mem orial Shady Systolic (mm Hg) 2013-12-10 14:08:00 Brandon rial Shady Systolic (mm Hg) 2013-12-03 14:19:00 Brandon rial Garvin Diastolic (mm Hg) 2013-12-03 14:19:00 Mem orial Shady Diastolic (mm Hg) 2013-11-15 13:38:00 Mem orial [place]ady Respitory Rate 2013-11-15 13:38:00 Memori al [place] Heart Rate 2013-11-15 13:38:00 Memorial [place] Systolic (mm Hg) 2013-11-15 13:38:00 Brandon rial Shady Temperature Oral (F) 2013-11-15 13:38:00 98.2 F [facility] [place] BMI Calculated 2013-11-15 13:38:00 Memori al [place]ady Height 2013-11-15 13:38:00 172.72 cm [facility] [place] Weight 2013-11-15 13:38:00 [facility] [place] Heart Rate 2013-11-12 15:07:00 [facility] [place] Diastolic (mm Hg) 2013-11-12 15:07:00 Mem orial Garvin Systolic (mm Hg) 2013-11-12 15:07:00 Brandon rial Garvin BMI Calculated 2013-07-08 16:51:00 Memori al [place] Height 2013-07-08 16:51:00 172.72 cm Memorial [place]ady Weight 2013-07-08 16:51:00 [facility] [place] Diastolic (mm Hg) 2013-07-08 16:51:00 Mem orial Garvin Systolic (mm Hg) 2013-07-08 16:51:00 Brandon rial Garvin Heart Rate 2013-07-08 16:51:00 [facility] [place] Respitory Rate 2013-07-08 16:51:00 Memori al Shady Diastolic (mm Hg) 2013-06-30 17:34:00 Mem orial Shady Systolic (mm Hg) 2013-06-30 17:34:00 Brandon rial Garvin Heart Rate 2013-06-28 23:23:00 Memorial [place] Systolic (mm Hg) 2013-06-28 23:23:00 Brandon rial Garvin Diastolic (mm Hg) 2013-06-28 23:23:00 Mem orial Shady Heart Rate 2013-06-20 15:01:00 Memorial [place] Respitory Rate 2013-06-20 15:01:00 Memori al [place]vin Systolic (mm Hg) 2013-06-20 15:01:00 Brandon rial Shady Diastolic (mm Hg) 2013-06-20 15:01:00 Mem orial Shady Temperature Oral (F) 2013-06-20 15:01:00 98.7 F Memorial [place] Height 2013-06-20 15:00:00 172.72 cm Memorial [place] BMI Calculated 2013-06-20 15:00:00 Memori al [place] Weight 2013-06-20 15:00:00 [facility] [place] Diastolic (mm Hg) 2013-06-07 16:00:00 Mem orial Shady Systolic (mm Hg) 2013-06-07 16:00:00 Brandon rial Shady Heart Rate 2013-06-07 16:00:00 [facility] [place] Heart Rate 2013-06-07 15:07:00 [facility] Garvin Procedures Procedure Date / Time Performing Clinician Source Performed XR ELBOW 3+ VW RIGHT 2021-09-19 21:32:47 [facility] XR FINGER 2+ VW RIGHT 2021-09-19 21:32:23 [facility] HC COMPLETE BLD COUNT 2021-09-19 21:13:00 [facility] W/AUTO DIFF LACTIC ACID LEVEL, SEPSIS 2021-09-19 21:13:00 [facility] - NOW AND REPEAT 2X EVERY 3 HOURS COMPREHENSIVE METABOLIC 2021-09-19 21:13:[address] [facility] PANEL ESTIMATED GFR 2021-09-19 21:13:00 Nori Meléndez [facility] Video urodynamic study 2013-06-20 05:00:00 Roberto levin Garvin Laminectomy [facility] Plan of Care Planned Activity Planned Date Details Comments Source Future Scheduled 2021-11-09 HEPATITIS B VACCINES [facility] Test 11:01:57 (1 of 3 - 3-dose series) [code = HEPATITIS B VACCINES (1 of 3 - 3-dose series)] Future Scheduled 2021-11-09 COVID-19 VACCINE (#1) [facility] Test 11:01:57 [code = COVID-19 VACCINE (#1)] Future Scheduled 2021-11-09 Pneumococcal Vaccine: [facility] Test 11:01:57 Pediatrics (0 to 5 Years) and At-Risk Patients (6 to 64 Years) (1 - PCV) [code = Pneumococcal Vaccine: Pediatrics (0 to 5 Years) and At-Risk Patients (6 to 64 Years) (1 - PCV)] Future Scheduled 2021-11-[address] [facility] Test 11:01:57 (procedure) [code = 246414800] Future Scheduled 2021-11-09 SHINGLES VACCINES (1 [facility] Test 11:01:57 of 2) [code = SHINGLES VACCINES (1 of 2)] Future Scheduled 2021-11-[address] [facility] Test 11:01:57 [code = COLONOSCOPY SCREENING] Future Scheduled 2021-11-09 INFLUENZA VACCINE [facility] Test 11:01:57 [code = INFLUENZA VACCINE] Encounters Start End Encounter Admission Attending Care Care Encounter Source Date/Time Date/Time Type Type Clinicians Facility Department ID 2021-04-03 Outpatient Powers, [facility] [id number] Common 14:09:15 Ramon [address] [facility] 2021-04-03 [facility] [id number] Common 12:01:03 [id number] [facility] 2021-09-24 2021-09-24 Travel 1.2.840.1 [id number] Methodi 00:00:00 00:00:[address] 3.430.2.7 0.2.7.3.698 Ho spita .[id number] 084.8 l .8 2021-09-20 2021-09-20 [place] [id number] -2021 Devoted 03:38:00 03:38:00 0715 Medica l Group 2021-09-19 2021-09-19 Emergency Azul, .2.840.1 [id number] Methodi 15:47:00 18:31:[id number] 3.430.2.7 Hospit a .3.921559 l .8 2021-09-19 2021-09-19 Emergency AZUL, [facility] [id number] [place] 00:00:00 00:00:[address] 2021-09-19 2021-09-19 Travel 1.2.840.1 [id number] [id number] Methodi 00:00:00 00:00:[address] 3.430.2.7 0.2.7.3.698 Ho spita .3.445808 084.8 l .8 2021-09-19 2021-09-19 ambulatory STLMLC STLMLC [id number] Common 00:00:00 00:00:00 [facility] 2021-09-18 2021-09-18 ambulatory STLMLC STLMLC [id number] Common 00:00:00 00:00:00 [facility] 2021-07-05 2021-07-05 CORBY Avis 2.16.840. 2.16.840.1. CLAC [id number] [facility] 16:30:00 17:00:00 Jackson [id number]. 879072.4.6. ZY[facility] [id number] 2021-06-24 2021-06-24 CORBY Avis 2.16.840. 2.16.840.1. CLAC [id number] [facility] 16:30:00 17:00:00 Jackson [id number]. 050879.4.6. [facility] [id number] 2021-06-21 2021-06-21 CORBY Avis 2.16.840. 2.16.840.1. CLA [id number] [facility] 14:00:00 14:30:00 Jackson [id number]. 640631.4.6. 5JR Medical 4.6.75146 [id number] 2021-06-14 2021-06-14 CORBY Avis 2.16.840. 2.16.840.1. CLA [id number] [facility] 14:30:00 15:30:00 Jackson [id number]. [id number]. 85U Medical [id number] 2021-04-23 2021-04-23 Outpatient Trevino_M [facility] [id number] -2021 [facility] 08:00:00 08:00:00 0215 Medica l Group 2021-03-21 2021-03-21 CAV Nell 2.16.840. 2.16.840.1. [facility] [id number] Devoted 16:30:00 17:30:00 Joan [id number]. 467226.4.6. Z4G Medical [id number] 2021-03-12 2021-03-12 Outpatient Trevino_M [facility] [id number] -2021 [facility] 03:11:00 03:11:00 0104 Medica l Group 2021-02-11 2021-02-11 Outpatient CURRY_S [facility] [id number] [facility] 05:35:00 05:35:00 1206 Medica l Group 2021-02-11 2021-02-11 ambulatory STLMLC STLMLC [id number] Common 00:00:00 00:00:00 [facility] 2021-01-11 2021-01-11 ambulatory STLMLC STLMLC [id number] Common 00:00:00 00:00:00 [facility] 2020-06-15 2020-06-16 Observatio nullFlavo [facility] [id number] Memoria 05:09:00 00:09:00 karl Caruso 98 l [facility] 2020-06-15 2020-06-15 [id number] 00:09:00 19:09:00 Mandeep 98 2020-06-15 2020-06-15 Outpatient [facility] 1098 Memoria 00:09:00 19:09:00 [facility] 2020-02-14 Outpatient STLMLC STLMLC [id number] Common 00:00:00 00:00:00 [facility] 2020-02-07 2020-02-07 Outpatient STLMLC STLMLC [id number] Common 00:00:00 00:00:00 [facility] 2020-01-17 2020-01-17 Outpatient STLMLC STLMLC [id number] Common 00:00:00 00:00:00 [facility] 2020-01-16 2020-01-16 Outpatient STLMLC STLMLC [id number] Common 00:00:00 00:00:00 [facility] 2020-01-09 2020-01-09 Outpatient STLMLC STLMLC [id number] Common 00:00:00 00:00:00 [facility] 2014-01-21 2014-02-20 Tots nullFlavo [facility] [id number] Memoria 14:00:00 05:59:00 Soo Caruso 09 l ADEN Caruso 2014-01-21 2014-02-19 Outpatient Tastard, 2.16.840. 2.16.840.1. [id number] 08:00:00 23:59:00 Birdie Amparo [id number]. [id number] 09 3.615.0.1 5.0.976 59 1369-11-15 2014-02-19 Outpatient [place], 2.16.840. 2.16.840.1. [id number] 08:00:00 23:59:00 Birdie Amparo [id number]. [id number] 09 3.615.0.1 5.0.803 16 1655-11-15 2014-02-19 Outpatient [place]ard, 2.16.840. 2.16.840.1. [id number] 08:00:00 23:59:00 Birdie Amparo 1.137784. [id number] 09 3.615.0.1 5.0.562 89 4507-10-11 2014-01-16 [facility] nullFlavo [facility] [id number] Memoria 13:00:00 05:59:00 Therapy r Shady 08 l TIRR Shady 2013-12-17 2014-01-15 Outpatient [place]ast[place], 2.16.840. 2.16.840.1. [id number] 08:00:00 23:59:00 Birdie Amparo [id number]. [id number] 08 3.615.0.1 5.0.206 14 5230-10-08 2013-12-15 [facility] [place] [id number] Memoria 19:55:00 04:59:00 r Shady 11 l PASCUALR Shady 2013-12-14 2013-12-14 Outpatient Nicholas, 2.16.840. 2.16.840.1. 3 [id number] 14:55:00 23:59:00 Gamaliel [id number]. [id number] 11 Daniel 3.615.0.1 5.0.124 89 1086-09-06 2013-12-12 [facility] nullFlavo [facility] [id number] Memoria 13:00:00 04:59:00 Therapy r Garvin 07 l TIRR Shady 2013-11-12 2013-12-11 Outpatient Tastard, 2.16.840. 2.16.840.1. [id number] 08:00:00 23:59:00 Birdie Amparo [id number]. [id number] 07 3.615.0.1 5.0.012 12 1647-09-09 2013-11-16 Outpatient nullFlavo [place] [id number] Memoria 13:01:00 04:59:00 r Shady 10 l PASCUALTamie Shady 2013-11-15 2013-11-15 Outpatient Michelle, 2.16.840. 2.16.840.1. 3 [id number] 08:01:00 23:59:00 Cori Rodriguez [id number]. [id number] 10 3.615.0.1 5.0.676 71 3182-08-02 2013-11-07 Tot nullFlavo [facility] [id number] Memoria 13:00:00 04:59:00 Therapy tamie Caruso 06 l PASCUALTamie Shady 2013-10-08 2013-11-06 Outpatient Tastard, 2.16.840. 2.16.840.1. [id number] 08:00:00 23:59:00 Birdie Amparo [id number]. [id number] 06 3.615.0.1 5.0.475 70 7027-07-05 2013-10-10 [facility] nullFlavo [facility] [id number] Memoria 13:00:00 04:59:00 Therapy r Shady 05 irais Caruso 2013-09-10 2013-10-09 Outpatient Tastard, 2.16.840. 2.16.840.1. [id number] 08:00:00 23:59:00 Birdie Amparo [id number]. [id number] 05 3.615.0.1 5.0.158 71 9684-05-02 2013-07-09 Outpatient nullFlavo [facility] [id number] Memoria 16:26:00 04:59:00 tamie Caruso 04 irais Caruso 2013-07-08 2013-07-08 Outpatient Tastard, 2.16.840. 2.16.840.1. [id number] 11:26:00 23:59:00 Birdie Amparo [id number]. [id number] 04 3.615.0.1 5.0.223 41 1027-04-01 2013-07-07 [facility] nullFlavo [facility] [id number] Memoria 14:13:00 04:59:00 Therapy tamie Caruso 03 irais Caruso 2013-06-07 2013-07-06 Outpatient Tastard, 2.16.840. 2.16.840.1. [id number] 09:13:00 23:59:00 Birdie Christensen [id number]. [id number] 03 3.615.0.1 5.0.501 55 9573-04-14 2013-06-21 Outpatient Akin [facility] [id number] Memoria 14:43:00 04:59:00 r Shady 02 l TIRR Shady 2013-06-20 2013-06-20 Outpatient Dare[place], 2.16.840. 2.16.840.1. [id number] 09:43:00 23:59:00 Tung Salguero [id number]. [id number] 02 3.615.0.1 5.0.101 01 Results Test Description Test Time Test Comments Results Result Comments Source URINE AND STOOL 2020-06-15 16:30:00 Test Item Value Reference Range Interpretation Comme nts UA Blood (test code = UA Blood) Small *ABN*(06/15/20 11:30 AM) [facility] AND [id number] 16:30:00 Test Item Value Reference Range Interpretation Comments UA Nitrite (test code Positive *ABN*(06/15/20 = UA Nitrite) 11:30 AM) Formerly [facility] AND [id number] 16:30:00 Test Item Value Reference Range Interpretation Comments UA Leuk Est (test code Large *ABN*(06/15/20 = UA Leuk Est) 11:30 AM) Formerly [facility] AND [id number] 16:30:00 Test Item Value Reference Range Interpretation Comments UA WBC (test code = 84 See_Comment [Automa faye message] The UA WBC) system which ge nerated this result transmit faye reference range : <=5. The reference range was not used to interpr et this result as nathaly l/abnormal. [facility] AND [id number] 16:30:00 Test Item Value Reference Range Interpretation Comments UA RBC (test code = 9 See_Comment [Automa faye message] The UA RBC) system which ge nerated this result transmit faye reference range : <=2. The reference range was not used to interpr et this result as nathaly l/abnormal. [facility] AND [id number] 16:30:00 Test Item Value Reference Range Interpretation Comments UA Bacteria (test code = UA Moderate /HPF Bacteria) [facility] [id number] 16:30:00 Test Item Value Reference Range Interpretation Comments UA Sq Epi (test code = UA Sq Epi) None Seen [facility] AND [id number] 16:30:00 Test Item Value Reference Range Interpretation Comments UA Color (test code = UA Color) [facility] AND [id number] 16:30:00 Test Item Value Reference Range Interpretation Comments UA Glucose (test code = UA Glucose) 500 [facility] AND [id number] 16:30:00 Test Item Value Reference Range Interpretation Comments UA Urobilinogen (test code = UA <=1.0 mg/dL 0.1-1.0 Urobilinogen) [facility]PT:ISOLATE:ORDQN:[id number] 16:30:00 Test Item Value Reference Range Interpretation Comments Culture: Urine (test >100,000 CFU/mL Proteus code = Culture: mirabilis >100,000 Urine) CFU/mL [facility] GarvinCEFTAZIDIME:SUSC:PT:ISOLATE:ORDQN:[id number] 16:30:00 Test Item Value Reference Range Interpretation Comments Proteus mirabilis (test Proteus mirabilis code = Proteus mirabilis) [facility] AND [id number] 16:30:00 Test Item Value Reference Range Interpretation Comments UA Turbidity (test code Marked *ABN*(06/15/20 = UA Turbidity) 11:30 AM) [facility] AND [id number] 16:30:00 Test Item Value Reference Range Interpretation Comments UA Spec Grav (test code = UA Spec 1.022 1 Grav) [facility] AND [id number] 16:30:00 Test Item Value Reference Range Interpretation Comments UA pH (test code = UA pH) 7.0 1 5.0-8.0 [facility] AND [id number] 16:30:00 Test Item Value Reference Range Interpretation Comments UA Protein (test code = UA Protein) 100 mg/dL [facility] AND [id number] 16:30:00 Test Item Value Reference Range Interpretation Comments UA Ketones (test code = UA Trace mg/dL Ketones) [facility] AND [id number] 16:30:00 Test Item Value Reference Range Interpretation Comments UA Bili (test code = Negative *NA*(06/15/20 UA Bili) 11:30 AM) [facility] [id number] 10:57:00 Test Item Value Reference Range Interpretation Comments Troponin-I (test code no gt See_Comment [Auto mated message] The = Troponin-I) system which g enerated this result transmit faye reference range : <=0.40. The reference r rodrigo was not used to interpr et this result as nathaly l/abnormal. [facility]annC[facility] [id number] 06:53:00 Test Item Value Reference Range Interpretation Comments Troponin-I (test code no gt See_Comment [Auto mated message] The = Troponin-I) system which g enerated this result transmit faye reference range : <=0.40. The reference r rodrigo was not used to interpr et this result as nathaly l/abnormal. [facility] [id number] 06:53:00 Test Item Value Reference Range Interpretation Comments Trig (test code = Trig) 330 [facility] [id number] 06:53:00 Test Item Value Reference Range Interpretation Comments Chol (test code = Chol) 174 [facility] [id number] 06:53:00 Test Item Value Reference Range Interpretation Comments HDL (test code = HDL) 28 [facility] [id number] 06:53:00 Test Item Value Reference Range Interpretation Comments CHD Risk (test code = CHD Risk) 6.21 1 4.00-7.30 [facility] [id number] 06:53:00 Test Item Value Reference Range Interpretation Comments LDL (Calculated) (test code = LDL 80 (Calculated)) [facility] [id number] 06:53:00 Test Item Value Reference Range Interpretation Comments VLDL (test code = VLDL) 66 1 [facility] CenteryogeshBLOOD [id number] 14:28:00 Test Item Value Reference Range Interpretation Comments CULTURE (BEAKER) (test No growth in 5 days code = 1095) POCT-GLUCOSE [id number] 12:04:00 Test Item Value Reference Range Interpretation Comments POC-GLUCOSE METER 179 mg/dL 70-110 H TESTED AT [facility] 6720 (BEAKER) (test code = [place] 1538) [address] BASIC METABOLIC [id number] 09:51:00 Test Item Value Reference Range Interpretation [...] PATIEN TS. CBC W/PLT COUNT & AUTO [id number] 09:20:00 Test Item Value Reference Range Interpretation [...] L 0.00-0.20 (test code = 417) 0.00POCT-GLUCOSE [id number] 07:15:00 Test Item Value Reference Range Interpretation Comments POC-GLUCOSE METER 246 mg/dL 70-110 H TESTED AT [place] [address] ([facility]) (test code = [facility] 1538) [address] POCT-GLUCOSE [id number] 21:12:00 Test Item Value Reference Range Interpretation Comments POC-GLUCOSE METER 89 mg/dL 70-110 TESTED AT [place] [address] ([facility]) (test code = [facility] [address] 1538) POCT-GLUCOSE [id number] 17:12:00 Test Item Value Reference Range Interpretation Comments POC-GLUCOSE METER 217 mg/dL 70-110 H TESTED AT [place] [address] ([facility]) (test code = [facility] 1538) [address] URINE [id number] 12:07:00 Test Item Value Reference Range Interpretation Comments CULTURE (BEAKER) (test <10,000 col/mL skin code = 1095) emily POCT-GLUCOSE [id number] 11:30:00 Test Item Value Reference Range Interpretation Comments POC-GLUCOSE METER 205 mg/dL 70-110 H TESTED AT [facility] 6720 (BEAKER) (test code = ADOL[place] 1538) [address] POCT-GLUCOSE [id number] 07:36:00 Test Item Value Reference Range Interpretation Comments POC-GLUCOSE METER 195 mg/dL 70-110 H TESTED AT [facility] 6720 (BEAKER) (test code = [facility] [place] 1538) [address] CBC W/PLT COUNT & AUTO [id number] 05:14:00 Test Item Value Reference Range Interpretation [...] 0.00-0.20 (test code = 417) 0.00BASIC METABOLIC [id number] 05:14:00 Test Item Value Reference Range Interpretation [...] NOT APPLICABLE FOR DIALYSIS PATIEN TS. POCT-GLUCOSE [id number] 21:04:00 Test Item Value Reference Range Interpretation Comments POC-GLUCOSE METER 178 mg/dL 70-110 H TESTED AT [facility] 6720 (BEAKER) (test code = [place] 1538) [address] POCT-GLUCOSE [id number] 17:07:00 Test Item Value Reference Range Interpretation Comments POC-GLUCOSE METER 88 mg/dL 70-110 TESTED AT [facility] 6720 (BEAKER) (test code = ADOLFO Willett [facility] [address] 1538) POCT-GLUCOSE [id number] 12:30:00 Test Item Value Reference Range Interpretation Comments POC-GLUCOSE METER 107 mg/dL 70-110 TESTED AT [place] [address] (BEAKER) (test code = [facility] 1538) [address] POCT-GLUCOSE [id number] 07:46:00 Test Item Value Reference Range Interpretation Comments POC-GLUCOSE METER 169 mg/dL 70-110 H TESTED AT [place] [address] (BEAKER) (test code = [facility] Tamie [facility] 1538) [address] CBC W/PLT COUNT & AUTO [id number] 07:42:00 Test Item Value Reference Range Interpretation [...] 0.00-0.20 (test code = 417) 0.00BASIC METABOLIC [id number] 06:13:00 Test Item Value Reference Range Interpretation [...] NOT APPLICABLE FOR DIALYSIS PATIEN TS. POCT-GLUCOSE [id number] 22:12:00 Test Item Value Reference Range Interpretation Comments POC-GLUCOSE METER 238 mg/dL 70-110 H TESTED AT [facility] 6720 (BEAKER) (test code = [place] 1538) [address] POCT-GLUCOSE [id number] 17:25:00 Test Item Value Reference Range Interpretation Comments POC-GLUCOSE METER 102 mg/dL 70-110 TESTED AT [facility] 6720 (BEAKER) (test code = [place] 1538) [address] URINALYSIS W/ [id number] 12:50:00 Test Item Value Reference Range Interpretation [...] /HPF SOURCE(BEAKER) (test code = 2795) POCT-GLUCOSE [id number] 12:04:00 Test Item Value Reference Range Interpretation Comments POC-GLUCOSE METER 226 mg/dL 70-110 H TESTED AT [place] [address] (BEAKER) (test code = [place] 1538) [address] POCT-GLUCOSE [id number] 08:00:00 Test Item Value Reference Range Interpretation Comments POC-GLUCOSE METER 300 mg/dL 70-110 H TESTED AT [place] [address] (BEAKER) (test code = ADOLFO Willett [facility] 1538) [address] BASIC METABOLIC [id number] 06:50:00 Test Item Value Reference Range Interpretation [...] PATIEN TS. CBC W/PLT COUNT & AUTO [id number] 06:01:00 Test Item Value Reference Range Interpretation [...] L 0.00-0.20 (test code = 417) 0.00POCT-GLUCOSE [id number] 21:25:00 Test Item Value Reference Range Interpretation Comments POC-GLUCOSE METER 279 mg/dL 70-110 H TESTED AT [facility] 6720 [facility] (test code = [place] 1538) [address] HEMOGLOBIN [id number] 21:13:00 Test Item Value Reference Range Interpretation Comments HEMOGLOBIN A1C (BEAKER) (test code = 10.7 % 4.3-6.1 H 368) CBC W/PLT COUNT & AUTO [id number] 20:47:00 Test Item Value Reference Range Interpretation [...] L 0.00-0.20 (test code = 417) 0.00POCT-GLUCOSE [id number] 18:31:00 Test Item Value Reference Range Interpretation Comments POC-GLUCOSE METER 205 mg/dL 70-110 H TESTED AT [facility] 6720 [facility] (test code = [place] 1538) [address] URINE [id number] 17:34:00 Test Item Value Reference Range Interpretation Comments Time (test code = Time) 2 min [facility] [id number] 17:34:00 Test Item Value Reference Range Interpretation Comments Time (test code = Time) 12 min [facility] [id number] 17:34:00 Test Item Value Reference Range Interpretation Comments Time (test code = Time) 14 min [facility]INE [id number] 17:34:00 Test Item Value Reference Range Interpretation Comments Time (test code = Time) 8 min [facility]URINE [id number] 17:34:00 Test Item Value Reference Range Interpretation Comments Time (test code = Time) 5 min [facility] [id number] 17:34:00 Test Item Value Reference Range Interpretation Comments Time (test code = Time) 17 min [facility] [id number] 17:34:00 Test Item Value Reference Range Interpretation Comments Time (test code = Time) 28 min [facility] [id number] 17:34:00 Test Item Value Reference Range Interpretation Comments Time (test code = Time) 20 min [facility] [id number] 17:34:00 Test Item Value Reference Range Interpretation Comments Time (test code = Time) 23 min [facility] [id number] 17:34:00 Test Item Value Reference Range Interpretation Comments Time (test code = Time) 26 min [facility] [id number] 17:34:00 Test Item Value Reference Range Interpretation Comments Time (test code = Time) 33 min [facility]
[2021-11-21 22:29] LABS: Hematocrit 33.9 % (39.6-49.0); Lymphocytes % 20.6 % (15.3-44.8); MCV 85.1 fL (80-100); MPV 9.4 fL (7.6-11.3); RBC Red Blood Cell Count 3.98 M/uL (4.33-5.43)
[2021-11-21 22:38] LABS: SARS-CoV-2 Antigen Rapid Res Negative (Negative)
[2021-11-21 22:42] LABS: Potassium 4.6 mmol/L (3.5-5.1); Troponin High Sensitivity 41.6 pg/mL (<58.9)
--- NOTE | 2021-11-21 22:59 | RAD REPORT ---
EXAM DESCRIPTION: RAD - Chest Single View - 11/21/2021 10:47 pm CLINICAL HISTORY: CHEST PAIN Chest pain. COMPARISON: Chest Pa And Lat (2 Views) dated 11/04/2021; Chest Single View dated 08/06/2021; Chest Sin gle View dated 06/01/2021; Chest Pa And Lat (2 Views) dated 02/06/2020 FINDINGS: Portable technique limits examination quality. Mild pulmonary edema suspected. The heart is mildly prominent size. No displaced fractures. IMPRESSION: Mild CHF versus volume overload pattern.
[2021-11-22 00:30] LABS: Urine Blood Negative (Negative); Urine Glucose Negative (Negative); Urine Protein 3+ (Negative); Urine Specific Gravity >=1.030 (1.005-1.030); Urine pH 5.5 (5.0-7.0)
[2021-11-22] MEDS ORDERED: FUROSEMIDE 20 MG/ 2ML VIAL ONE ×2 (00:52→12:54)
[2021-11-22 00:56] LABS: Urine Bacteria <20 /HPF (<20); Urine Mucus Slight /HPF (None Seen); Urine RBC <5 /HPF (None Seen)
[2021-11-22 01:01] LABS: Barbiturates NEGATIVE (NEGATIVE); Benzodiazepines NEGATIVE (NEGATIVE); Cocaine NEGATIVE (NEGATIVE); METHAMPHETAM NEGATIVE (NEGATIVE); Methadone NEGATIVE (NEGATIVE); Opiates NEGATIVE (NEGATIVE); Phencyclidine NEGATIVE (NEGATIVE); THC Cannibis NEGATIVE (NEGATIVE)
--- NOTE | 2021-11-22 01:20 | ER ---
Nurse's Notes [facility] Name: Ramirez Chaudhari Age: 56 yrs Sex: Male : 1965 Arrival Date: 11/21/2021 Time: 21:10 Bed 3 Private MD: Diagnosis: Dyspnea, unspecified;Altered mental status, unspecified;Acute pulmonary edema Presentation: 11/21 21:13 Chief complaint: EMS states: "We were called out because his said she gave him a vc1 shower and was laying in bed afterwards and she looked over and he was unresponsive.". Coronavirus screen: Vaccine status: Patient reports being unvaccinated. shortness of breath, Client presents with at least one sign or symptom that may indicate coronavirus-19. Standard/surgical mask placed on the client. Provider contacted for isolation considerations. Ebola Screen: No symptoms or risks identified at this time. Initial Sepsis Screen: Does the patient meet any 2 criteria? No. Patient's initial sepsis screen is negative. Does the patient have a suspected source of infection? Yes: Skin breakdown/wound. Risk Assessment: Do you want to hurt yourself or someone else? Patient reports no desire to harm self or others. Onset of symptoms was November 21, 2021. 21:13 Method Of Arrival: EMS: [facility] vc1 21:13 Acuity: NOHEMI 3 vc1 Triage Assessment: 21:10 General: Appears in no apparent distress. uncomfortable, obese, Behavior is vc1 cooperative, flat, quiet. 21:10 Pain: Denies pain. EENT: No deficits noted. Neuro: Level of Consciousness is awake, vc1 lethargic, Oriented to person, place, time, situation, Appropriate for age. Cardiovascular: Capillary refill < 3 seconds Patient's skin is warm and dry. Respiratory: Reports shortness of breath at rest Airway is patent Respiratory effort is even, unlabored, Respiratory pattern is regular, symmetrical. GI: Abdomen is obese. : Valera in place. Derm: No deficits noted. Musculoskeletal: No deficits noted. Historical: - Allergies: 21:19 Ibuprofen; vc1 21:19 metformin; vc1 - PMHx: 21:19 ADD/ADHD; Diabetes - IDDM; GERD; Gout; High Cholesterol; Hydrocele Left Testicle; vc1 Hypertension; Hypothyroidism; Migraines; Paraplegia; Renal Disease; Spinal Stroke; - Immunization history:: Adult Immunizations up to date, Client reports having NOT received the Covid vaccine. - Social history:: Smoking status: Patient denies any tobacco usage or history of. - Family history:: not pertinent. - Hospitalizations: : No recent hospitalization is reported. Screenin:19 Abuse screen: Denies threats or abuse. Nutritional screening: No deficits noted. vc1 Tuberculosis screening: No symptoms or risk factors identified. Fall Risk None identified. Assessment: 22:00 Reassessment: No changes from previously documented assessment. Patient and/or family vc1 updated on plan of care and expected duration. Pain level reassessed. Patient is alert, oriented x 3, equal unlabored respirations, skin warm/dry/pink. 22:23 Reassessment: BGL 160 per patients FATEMEH. vc1 22:40 Reassessment: No changes from previously documented assessment. Patient and/or family vc1 updated on plan of care and expected duration. Pain level reassessed. 11/22 00:00 Reassessment: Patient appears in no apparent distress at this time. Patient and/or jb4 family updated on plan of care and expected duration. Pain level reassessed. Patient is alert, oriented x 3, equal unlabored respirations, skin warm/dry/pink. 01:00 Reassessment: Patient appears in no apparent distress at this time. Patient and/or jb4 family updated on plan of care and expected duration. Pain level reassessed. Patient is alert, oriented x 3, equal unlabored respirations, skin warm/dry/pink. 02:00 Reassessment: Patient appears in no apparent distress at this time. Patient and/or jb4 family updated on plan of care and expected duration. Pain level reassessed. Patient is alert, oriented x 3, equal unlabored respirations, skin warm/dry/pink. 03:00 Reassessment: No changes from previously documented assessment. Patient and/or family vc1 updated on plan of care and expected duration. Pain level reassessed. Vital Signs: 11/21 21:13 BP 119 / 90; Pulse 69; Resp 13; Temp 97.7; Pulse Ox 100% ; Weight 108.86 kg; Height 5 vc1 ft. 8 in. (172.72 cm); Pain 0/10; 22:00 BP 116 / 96; Pulse 68; Resp 16; Pulse Ox 100% ; vc1 23:00 BP 110 / 74; Pulse 65; Resp 15; Pulse Ox 98% on R/A; jb4 11/22 00:00 BP 119 / 81; Pulse 66; Resp 14; Pulse Ox 100% on R/A; jb4 01:00 BP 113 / 85; Pulse 62; Resp 15; Pulse Ox 98% on R/A; jb4 02:00 BP 104 / 73; Pulse 65; Resp 17; Pulse Ox 98% on R/A; jb4 03:00 BP 127 / 91; Pulse 65; Resp 18; Pulse Ox 100% ; vc1 04:00 BP 126 / 83; Pulse 63; Resp 18; Pulse Ox 97% ; vc1 11/21 21:13 Body Mass Index 36.49 (108.86 kg, 172.72 cm) vc1 ED Course: 11/21 21:10 Patient arrived in ED. ds4 21:10 Patient has correct armband on for positive identification. Bed in low position. Call vc1 light in reach. Side rails up X2. Client placed on continuous cardiac and pulse oximetry monitoring. NIBP monitoring applied. 21:11 Brodie Zheng MD is Attending Physician. rn 21:13 Annel Mathis RN is Primary Nurse. vc1 21:18 Triage completed. vc1 21:19 Arm band placed on. vc1 22:49 XRAY Chest (1 view) In Process Unspecified. EDOK 11/22 01:18 Gonzalo Powell MD is Hospitalizing Provider. rn 02:29 Donovan Ureña MD is Hospitalizing Provider. la1 04:40 No provider procedures requiring assistance completed. Patient admitted, IV remains in vc1 place. Administered Medications: 00:47 Drug: Lasix (furosemide) 20 mg Route: IVP; Site: right antecubital; vc1 Medication: 11/21 22:42 VIS not applicable for this client. vc1 Outcome: 11/22 01:19 Decision to Hospitalize by Provider. rn 04:40 Admitted to ER Hold. Please see [facility] for further documentation. vc1 04:40 Condition: good 04:40 Instructed on the need for admit. 14:57 Patient left the ED. iw Signatures: Dispatcher [employer] EDOK Julia Baxter RN RN iw Brodie Zheng MD MD rn Swanson, Donovan ds4 Attema, James, MEMBER OF TECHNICAL STAFF-C MEMBER OF TECHNICAL STAFF-Cla1 Jesus Gutierrez, RN RN jb4 Annel Mathis, NORBERTO RN vc1
--- NOTE | 2021-11-22 01:20 | EDPHYS ---
Physician Documentation [facility] Name: Ramierz Chaudhari Age: 56 yrs Sex: Male : 1965 Arrival Date: 11/21/2021 Time: 21:10 Bed 3 Private MD: ED Physician Brodie Zheng HPI: 11/21 22:00 This 56 yrs old Male presents to ER via EMS with complaints of AMS. rn 22:00 The patient presents with decreased responsiveness. Onset: The symptoms/episode rn began/occurred at an unknown time. Possible causes: unknown. Associated signs and symptoms: Pertinent positives: chest pain, Pertinent negatives: abdominal pain, diarrhea, headache, seizure. Current symptoms: In the emergency department the patient's symptoms have improved. It is unknown whether or not the patient has had similar symptoms in the past. The patient has not recently seen a physician. EMS called out for decreased responsiveness, sleepy but arousable, patient reported chest pain at some point, denies trauma or feeling ill. Was able to shower but then felt generalized fatigue and malaise once he got out. Unsure if syncope. Reports chest pain. EMS reports more alert now than when they picked him up, no intervention by EMS.. Historical: - Allergies: 21:19 Ibuprofen; vc1 21:19 metformin; vc1 - PMHx: 21:19 ADD/ADHD; Diabetes - IDDM; GERD; Gout; High Cholesterol; Hydrocele Left Testicle; vc1 Hypertension; Hypothyroidism; Migraines; Paraplegia; Renal Disease; Spinal Stroke; - Immunization history:: Adult Immunizations up to date, Client reports having NOT received the Covid vaccine. - Social history:: Smoking status: Patient denies any tobacco usage or history of. - Family history:: not pertinent. - Hospitalizations: : No recent hospitalization is reported. ROS: 22:00 Constitutional: Negative for fever, chills, and weight loss, Eyes: Negative for injury, rn pain, redness, and discharge, Neck: Negative for injury, pain, and swelling, Cardiovascular: Negative for palpitations, and edema, Respiratory: Negative for shortness of breath, cough, wheezing, and pleuritic chest pain, Abdomen/GI: Negative for abdominal pain, nausea, vomiting, diarrhea, and constipation, Back: Negative for injury and pain, MS/Extremity: Negative for injury and deformity, Skin: Negative for injury, rash, and discoloration, Neuro: Negative for headache, numbness, tingling, and seizure. Exam: 22:00 Constitutional: This is a well developed, well nourished patient who is awake, rn somnolent, awakens to voice and tactile stimulation Head/Face: Normocephalic, atraumatic. Eyes: Pupils equal round and reactive to light, extra-ocular motions intact. ENT: dry MM Neck: No Meningismus. Cardiovascular: Regular rate and rhythm. No pulse deficits. Respiratory: No increased work of breathing, no retractions or nasal flaring. Abdomen/GI: Soft, non-tender Skin: Warm, dry MS/ Extremity: Pulses equal, no cyanosis. + wounds to right foot and heel, minimal drainage, no surrounding erythema or fluctuance. NO streaking. Neuro: Awake and alert, GCS 15, oriented to person, place, not time. Cranial nerves II-XII grossly intact. Baseline paraplegia. 23:10 ECG was reviewed by the Attending Physician. rn Vital Signs: 21:13 BP 119 / 90; Pulse 69; Resp 13; Temp 97.7; Pulse Ox 100% ; Weight 108.86 kg; Height 5 vc1 ft. 8 in. (172.72 cm); Pain 0/10; 22:00 BP 116 / 96; Pulse 68; Resp 16; Pulse Ox 100% ; vc1 23:00 BP 110 / 74; Pulse 65; Resp 15; Pulse Ox 98% on R/A; jb4 11/22 00:00 BP 119 / 81; Pulse 66; Resp 14; Pulse Ox 100% on R/A; jb4 01:00 BP 113 / 85; Pulse 62; Resp 15; Pulse Ox 98% on R/A; jb4 02:00 BP 104 / 73; Pulse 65; Resp 17; Pulse Ox 98% on R/A; jb4 03:00 BP 127 / 91; Pulse 65; Resp 18; Pulse Ox 100% ; vc1 04:00 BP 126 / 83; Pulse 63; Resp 18; Pulse Ox 97% ; vc1 11/21 21:13 Body Mass Index 36.49 (108.86 kg, 172.72 cm) vc1 MDM: 11/21 21:11 Patient medically screened. rn 11/22 01:17 Differential Diagnosis: CVA, electrolyte abnormality, alcohol intoxication, rn hypoglycemia, intracranial bleed, overdose, pneumonia, UTI, volume depletion. Data reviewed: vital signs, nurses notes, lab test result(s), EKG, radiologic studies, plain films, and as a result, I will admit patient. Counseling: I had a detailed discussion with the patient and/or guardian regarding: the historical points, exam findings, and any diagnostic results supporting the discharge/admit diagnosis, lab results, radiology results, the need for further work-up and treatment in the hospital. Response to treatment: There is no appreciated change of the patient's symptoms at this time, and as a result, I will admit patient. Admission orders: after a detailed discussion of the patient's condition and case, the admit orders are written by me. ED course: Still unclear exactly what is contributing to his somnolence. CT head and ABG ordered, drug screen neg, urine clean, xray with pulmonary edema. Will obs to hospitalist service. . 11/21 21:12 Order name: Basic Metabolic Panel; Complete Time: 23: 11/21 21:12 Order name: CBC with Diff; Complete Time: 22:42 11/21 21:12 Order name: NT PRO-BNP; Complete Time: 23: 11/21 21:12 Order name: Troponin HS; Complete Time: 23: 11/21 21:12 Order name: SARS RAPID; Complete Time: 22:42 11/21 21:12 Order name: Urine Microscopic Only; Complete Time: 01: 11/21 21:13 Order name: Urine Drug Screen; Complete Time: : 11/22 00:31 Order name: Urine Dipstick-Ancillary; Complete Time: 01:06 [facility] 11/22 01:07 Order name: ABG; Complete Time: 01:43 11/22 01:50 Order name: Blood Culture Adult (2) la1 11/22 05:51 Order name: CBC with Automated Diff [facility] 11/22 06:14 Order name: Comprehensive Metabolic Panel [facility] 11/22 06:14 Order name: Troponin High Sensitivity [facility] 11/22 06:14 Order name: T4 Free [facility] 11/21 21:12 Order name: XRAY Chest (1 view); Complete Time: 23:07 11/21 21:12 Order name: EKG; Complete Time: 21:57 11/21 21:12 Order name: Cardiac monitoring; Complete Time: 21:50 rn 11/21 21:12 Order name: EKG - Nurse/Tech; Complete Time: 21:50 rn 11/21 21:12 Order name: IV Saline Lock; Complete Time: 22:18 rn 11/21 21:12 Order name: Labs collected and sent; Complete Time: 22:18 rn 11/21 21:12 Order name: O2 Per Protocol; Complete Time: 22:18 rn 11/21 21:12 Order name: O2 Sat Monitoring; Complete Time: 22:18 rn 11/21 23:11 Order name: CT Head Brain wo Cont rn 11/22 06:14 Order name: Thyroid Stimulating Hormone EDMS 11/22 07:32 Order name: Glucose, Ancillary Testing EDOR 11/22 11:06 Order name: CT EDMS 11/22 11:36 Order name: US EDMS 11/22 11:43 Order name: Troponin High Sensitivity EDOR 11/22 12:32 Order name: Glucose, Ancillary Testing EDOR 11/21 21:12 Order name: Urine Dipstick-Ancillary (obtain specimen); Complete Time: 00:36 rn 11/21 21:13 Order name: Glucose Level; Complete Time: 22:22 rn EC/15 23:10 Rate is 68 beats/min. Rhythm is regular. QRS Jermyn is Normal. AL interval is normal. QRS rn interval is normal. QT interval is normal. No Q waves. T waves are Normal. No ST changes noted. Clinical impression: NSR w/ Non-specific ST/T Changes. Interpreted by me. Reviewed by me. Administered Medications: 11/22 00:47 Drug: Lasix (furosemide) 20 mg Route: IVP; Site: right antecubital; vc1 Disposition Summary: 11/22/21 01:19 Hospitalization Ordered Hospitalization Status: Observation rn Condition: Stable rn Problem: new rn Symptoms: are unchanged rn Bed/Room Type: Standard rn Provider: Donovan Ureña(11/22/21 02:29) la1 Location: Telemetry/MedSurg (observation)(11/22/21 12:59) em1 Room Assignment: [facility](11/22/21 12:59) em1 Diagnosis - Dyspnea, unspecified rn - Altered mental status, unspecified rn - Acute pulmonary edema rn Forms: - Medication Reconciliation Form rn - SBAR form rn Signatures: Dispatcher [employer] EDBrodie Jerez MD MD rn Nadir, Timo em1 James Thomas, AUTUMN-C AUTUMN-Luci Deglado RN RN cg Calcote, Vanessa, RN RN vc1 Corrections: (The following items were deleted from the chart) 11/21 22:04 22:00 Constitutional: This is a well developed, well nourished patient who is awake, rn somnolent, awakens to voice and tactile stimulation Head/Face: Normocephalic, atraumatic. Eyes: Pupils equal round and reactive to light, extra-ocular motions intact. ENT: dry MM Neck: No Meningismus. Cardiovascular: Regular rate and rhythm. No pulse deficits. Respiratory: No increased work of breathing, no retractions or nasal flaring. Abdomen/GI: Soft, non-tender Skin: Warm, dry MS/ Extremity: Pulses equal, no cyanosis. + wounds to right foot and heel, minimal drainage, no surrounding erythema or fluctuance. NO streaking. Neuro: Awake and alert, GCS 15, oriented to person, place, not time. Cranial nerves II-XII grossly intact. rn 11/22 02:29 01:19 Gonzalo Powell rn la1 03:01 01:19 Telemetry/MedSurg (observation) hortensia cg 03:01 01:19 rn cg 12:59 03:01 [facility] ER HOLD cg em1 :59 03:01 ERHOLD- cg em1
[2021-11-22 01:26] LABS: Arterial Blood Carboxyhemoglob 1.3 % (0-1.5); Blood Gas Oxyhemoglobin 93.5 % (94-97); Blood O2 Saturation 96.1 % (92-98.5)
--- NOTE | 2021-11-22 02:53 | P.HP ---
Certification for Inpatient Patient admitted to: Observation With expected LOS: <2 Midnights Patient will require the following post-hospital care: None Practitioner: I am a practitioner with admitting privileges, knowledge of patient current condition, hospital course, and medical plan of care. Services: Services provided to patient in accordance with Admission requirements found in Title 42 Section 412.3 of the Code of Federal Regulations Patient History Date of Service: 11/22/21 Primary Care Provider: Dr. 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 Patient was at home with his shortly after getting a shower sitting his wheelchair he slumped over was difficult to arouse, patient then somewhat regained consciousness while speaking with and had a similar episode his reports that at that time he had pointed to his chest and then lost consciousness again. EMS was called patient was transported the emergency department during his transportation to the emergency department it was reported that he was altered/not fully responsive but this improved during her stay in the emergency department, he is currently awake, alert and oriented x3 he states he is feeling much better does not remember the events that took place at home. He was evaluated in the emergency department today his labs were significant for mild acute kidney injury creatinine 1.83 GFR 43 BUN 55 his baseline creatinine is around 1.4 white blood count normal at 9.7 ABG was performed given his altered mentation which was unremarkable he does have chronic indwelling Valera catheter and has recently been on Bactrim also takes Macrobid low-dose daily no sign of infection in his urine also has chronic wounds to lower extremities which do not appear infected either. Patient CT scan of his head which was negative for any acute findings, chest x-ray showed mild CHF versus volume overload pattern. Patient was given IV Lasix in the emergency department, ED provider wishes to admit under observation for dyspnea, possible syncope. Allergies metformin Adverse Reaction (Severe, Verified 01/16/21 00:08) kidney damage ibuprofen Adverse Reaction (Verified 01/16/21 00:08) seecom stitches Adverse Reaction (Mild, Uncoded 02/06/20 12:27) Rash Home Medications: Atorvastatin Calcium 1 tab PO DAILY 01/15/21 Insulin Detemir [Levemir Flextouch] 40 units SQ BID 01/15/21 Levothyroxine Sodium [Euthyrox] 1 tab PO DAILY 01/15/21 Lisinopril [Zestril] 1 tab PO DAILY 01/15/21 Furosemide 20 mg PO DAILY 05/31/21 Insulin Aspart 30 unit SQ TID 05/31/21 Omeprazole 40 mg PO DAILY 05/31/21 Apixaban [Eliquis *] 2.5 mg PO BID #60 tablet 08/07/21 Allopurinol 100 mg PO DAILY 09/24/21 Amlodipine [Norvasc*] 10 mg PO DAILY PRN 09/24/21 Nitrofurantoin Monohyd/M-Cryst [Nitrofurantoin Walton-Mcr 100 mg] 100 mg PO DAILY 09/24/21 Semaglutide [Ozempic] 0.5 mg SQ SEECOM 09/24/21 Docusate [Colace Cap*] 100 mg PO BID 30 Days #30 cap 09/28/21 Hydrocodone 5/APAP 325 [Ovid 5/325*] 1 tab PO Q6H PRN #20 tab 09/28/21 Sotalol HCl [Betapace*] 80 mg PO BID 30 Days #60 tab 09/28/21 predniSONE [Deltasone*] 10 mg PO SEECOM 20 Days #50 tab 09/28/21 - Past Medical/Surgical History Diabetic: Yes -: Diabetes mellitus type 2 -: HTN -: Gout -: Hyperlipidemia -: Hypothyroidism -: 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 fib on chronic anticoagulation -: spinal surgery -: 2 hydroceles -: Fistula repair -: Incomplete spinal stroke -: right hand Psychosocial/ Personal History: Patient is disabled, lives at home with his . - Family History Mother -: Hypertension, Diabetes, Stroke Notes: with gangrene leg - Social History Smoking Status: Never smoker Alcohol use: No CD- Drugs: No Caffeine use: No Place of Residence: Home Review of Systems 10-point ROS is otherwise unremarkable Respiratory: Shortness of Breath Cardiovascular: Edema, As per HPI Physical Examination - Physical Exam General: Alert, In no apparent distress, Oriented x3 HEENT: Atraumatic, PERRLA, Mucous membr. moist/pink, EOMI, Sclerae nonicteric Neck: Supple, 2+ carotid pulse no bruit, No LAD, Without JVD or thyroid abnormality Respiratory: Clear to auscultation bilaterally, Normal air movement Cardiovascular: Regular rate/rhythm, Normal S1 S2, Edema Capillary refill: <2 Seconds Gastrointestinal: Normal bowel sounds, No tenderness Musculoskeletal: No tenderness Integumentary: No rashes Neurological: Normal speech, Normal tone, Normal affect, Abnormal strength (Paraplegia) Urinary: Valera catheter (Chronic indwelling Valera catheter) - Studies Laboratory Data (last 24 hrs) 11/21/21 22:08: WBC 9.70, Hgb 11.2 L, Hct 33.9 L, Plt Count 186 11/21/21 22:08: Sodium 135 L, Potassium 4.6, BUN 55 H, Creatinine 1.83 H, Glucose 194 H Assessment and Plan - Plan Assessment: Syncope Dyspnea secondary to pulmonary edema suspect underlying CHFunknown EF Atrial fibrillation on chronic anticoagulation therapy Diabetes most type IIinsulin-dependent with hyperglycemia CROW on CKD 3 Hypertension Hyperlipidemia Hypothyroidism GERD Plan: Syncope: Trend troponins, monitor on telemetry, echocardiogram ordered. Patient does not remember the events states he went to his chest during this episode. Patient back to baseline mental status denies any current chest pain. Dyspnea secondary to pulmonary edema suspect underlying CHFunknown EF: Patient does take Lasix 20 mg daily at home chest x-ray shows mild CHF, he does have lower extremity edema as well. Will provide patient with IV Lasix 20 mg twice daily for the time being and obtain echocardiogram. Atrial fibrillation on chronic anticoagulation therapy: Home medications con tinued including Eliquis we will monitor on telemetry. Diabetes most type IIinsulin-dependent with hyperglycemia: Continue long-acting insulin/sliding scale. CROW on CKD 3: Recheck chemistry this morning, will consult nephrology if there is worsening. Hold lisinopril for today. Hypertension: Continue home medications adjust as necessary, hold lisinopril given CROW. Hyperlipidemia: Continue atorvastatin 40 Hypothyroidism: Continue levothyroxine 150 mcg daily GERD: Continue Protonix. DVT PPX: Continue Eliquis Code status: Full code Discharge Plan: Home Plan to discharge in: 24 Hours - Advance Directives Does patient have a Living Will: No Does patient have a Durable POA for Healthcare: No - Code Status/Comfort Care Code Status Assessed: Yes (Full code) Critical Care: No Time Spent Managing Pts Care (In Minutes): 70
[2021-11-22] MEDS ORDERED: ONDANSETRON 4 MG/2 ML VIAL IV PRN (05:00)
[2021-11-22 05:03] VITALS: BMI 36.5
[2021-11-22 05:47] LABS: Absolute Lymphocytes (CBC) 1.9 K/uL (0.7-4.9); Hematocrit 33.1 % (39.6-49.0); Lymphocytes % 22.1 % (15.3-44.8); MCV 85.5 fL (80-100); MPV 9.4 fL (7.6-11.3); RBC Red Blood Cell Count 3.87 M/uL (4.33-5.43)
[2021-11-22] MEDS: SOTALOL HCL 80 MG TAB PO SCH ×2 (06:00→17:34)
[2021-11-22] MEDS: PANTOPRAZOLE 40MG TABLET PO SCH (06:07)
[2021-11-22 06:12] LABS: Albumin 2.9 g/dL (3.4-5.0); Bilirubin Total 0.3 mg/dL (0.2-1.0); Potassium 4.3 mmol/L (3.5-5.1); Protein, Total 7.4 g/dL (6.4-8.2); Troponin High Sensitivity 44.4 pg/mL (<58.9)
[2021-11-22 06:13] LABS: Thyroid Stimulating Hormone 5.92 uIU/mL (0.360-3.740)
[2021-11-22] MEDS ORDERED: PANTOPRAZOLE 40MG TABLET PO ONE (06:13)
[2021-11-22] MEDS ORDERED: SOTALOL HCL 80 MG TAB ONE (06:13)
[2021-11-22] MEDS: LEVOTHYROXINE SOD 0.1 MG TAB PO SCH (06:30)
[2021-11-22] MEDS: INSULIN -REGULAR HUMAN 50 UNIT/0.5 ML ML SQ SCH ×4 (07:30→20:37)
[2021-11-22] MEDS: INSULIN GLARGINE 100 UNIT/ML SQ SCH ×2 (09:00→20:37)
[2021-11-22] MEDS ORDERED: FUROSEMIDE 20 MG/ 2ML VIAL IV SCH (09:00)
[2021-11-22] MEDS: APIXABAN 2.5 MG TABLET PO SCH ×2 (09:00→20:36)
[2021-11-22] MEDS ORDERED: INSULIN GLARGINE 100 UNIT/ML SQ ONE (09:54)
[2021-11-22] MEDS: NACHLORIDE 0.45% 1,000 ML IV SCH (10:00)
--- NOTE | 2021-11-22 11:05 | RAD REPORT ---
EXAM DESCRIPTION: CT - Head Brain Wo Cont - 11/22/2021 2:44 am CLINICAL HISTORY: 56 years, Male, AMS COMPARISON: 01/26/2021 FINDINGS: Multiple transaxial tomograms of the brain were obtained from the base of the skull to the vertex without contrast. 2-D multiplanar reformats and the coronal and sagittal plane were performed and reviewed. This exam was performed according to our departmental dose-optimization protocol, which includes auto mated exposure control, adjustment of the mA and/or kV according to patient size and/or use of iterat oma reconstruction technique. Brain parenchyma as well as the lxu and white matter differentiation demonstrate to be unremarkable. There is no midline shift and/or mass effect. There is no evidence for acute hemorrhage. No focal ar eas of hypodensity. Lateral ventricles and cisterns displace normal appearance. No intra or extra axial fluid collections were seen. The calvarium is intact with no evidence for fracture. The visual ized portions of the paranasal sinuses again demonstrated chronic opacification of the left posterior maxillary sinus. The mastoid air cells and orbits demonstrate to be clear. IMPRESSION: No acute intracranial hemorrhage identified. Unremarkable CT scan of the brain without contrast. Chronic opacification of the left maxillary sinus. Electronically signed by: Tung Stack MD 11/22/2021 3:16 AM CDT Due to temporary technical issues with the PACS/Fluency reporting system, reports are being signed by the in house radiologists without review as a courtesy to insure prompt reporting. The interpreting radiologist is fully responsible for the content of the report.
--- NOTE | 2021-11-22 11:35 | RAD REPORT ---
EXAM DESCRIPTION: US - Renal Ultrasound-Complete - 11/22/2021 11:13 am CLINICAL HISTORY: renal failure COMPARISON: <Comparisons>noncontrast CT study 12/31/2019 FINDINGS: The right kidney measures 10.4 x 6.8 x 5.3 cm. The left kidney measures 12.1 x 5.0 x 4.6 cm. Renal cortical thickness and echogenicity are normal. No hydronephrosis of either kidney. Both ki dneys show a slightly lobulated capsule contour which is within normal range. No mass lesion identifi able. Bladder is contracted around a Valera catheter. IMPRESSION: No hydronephrosis or suspicious renal mass. No other significant findings.
--- NOTE | 2021-11-22 12:30 | EKG ---
Test Date: 2021-11-21 Test Time: 21:35:17 Frame Maker: DESMOND MEASUREMENT RESULTS: Intervals: Rate: 68 IL: 114 QRSD: 112 QT: 414 QTc: 440 [place]: P: 45 IL: 114 QRS: 98 T: 12 INTERPRETIVE STATEMENTS: Normal sinus rhythm Right bundle branch block Abnormal ECG Compared to ECG 09/26/2021 13:05:23 Atrial premature complex(es) no longer present Electronically Signed On 11-22-21 12:28:31 CDT by Micha Tena
[2021-11-22] MEDS ORDERED: NA CHLORIDE 0.9% 1,000 ML ONE (12:55)
[2021-11-22] MEDS ORDERED: INSULIN -REGULAR HUMAN 50 UNIT/0.5 ML ML ONE (12:55)
--- NOTE | 2021-11-22 13:00 | ECHO ---
HEIGHT: 5 ft 8 in WEIGHT: 240 lb 0 oz DATE OF STUDY: 11/22/[address]: James Thomas NP 2-DIMENSIONAL: YES M.MODE: YES DOPPLER: YES COLOR FLOW: YES TDS: PORTABLE: YES DEFINITY: BUBBLE STUDY: DIAGNOSIS: SYNCOPE, DYSPENA, PULMONARY EDEMA CARDIAC HISTORY: CATHERIZATION: NO SURGERY: NO PROSTHETIC VALVE: NO PACEMAKER: NO MEASUREMENTS (cm) DIASTOLIC (NORMALS) SYSTOLIC (NORMALS) IVSd 1.3 (0.6-1.2) LA Diam 3.6 (1.9-4.0) LVEF 51% LVIDd 4.6 (3.5-5.7) LVIDs 3.4 (2.0-3.5) %FS 26% LVPWd 1.3 (0.6-1.2) Ao Diam 3.3 (2.0-3.7) 2 DIMENSIONAL ASSESSMENT: RIGHT ATRIUM: NORMAL LEFT ATRIUM: NORMAL RIGHT VENTRICLE: NORMAL LEFT VENTRICLE: LEFT VENTRICULAR HYPERTROPHY TRICUSPID VALVE: NORMAL MITRAL VALVE: NORMAL PULMONIC VALVE: NORMAL AORTIC VALVE: NORMAL PERICARDIAL EFFUSION: NONE AORTIC ROOT: NORMAL LEFT VENTRICULAR WALL MOTION: NORMAL EJECTION FRACTION. DECREASED LEFT VENTRICULAR COMPLIANCE. DOPPLER/COLOR FLOW: MILD TRICUSPID REGURGITATION. COMMENTS: DECREASED LEFT VENTRICULAR COMPLIANCE. NORMAL EJECTION FRACTION. MILD TRICUSPID REGURGITATION. LEFT VENTRICULAR HYPERTROPHY. NORMAL RIGHT VENTRICULAR SYSTOLIC PRESSURE. TECHNOLOGIST: EMMA MARTINEZ
[2021-11-22] MEDS ORDERED: ATORVASTATIN 40 MG TAB PO SCH (21:00)
[2021-11-23] MEDS: NACHLORIDE 0.45% 1,000 ML IV SCH (05:43)
[2021-11-23] MEDS: LEVOTHYROXINE SOD 0.1 MG TAB PO SCH (05:43)
[2021-11-23] MEDS: PANTOPRAZOLE 40MG TABLET PO SCH (05:43)
[2021-11-23] MEDS: SOTALOL HCL 80 MG TAB PO SCH (05:47)
[2021-11-23 06:27] LABS: Absolute Lymphocytes (CBC) 1.5 K/uL (0.7-4.9); Hematocrit 30.4 % (39.6-49.0); Lymphocytes % 18.8 % (15.3-44.8); MCV 84.4 fL (80-100); MPV 9.5 fL (7.6-11.3); RBC Red Blood Cell Count 3.61 M/uL (4.33-5.43)
[2021-11-23 06:39] LABS: Potassium 4.2 mmol/L (3.5-5.1)
[2021-11-23 06:40] LABS: Albumin 2.7 g/dL (3.4-5.0); Bilirubin Total 0.4 mg/dL (0.2-1.0); Protein, Total 7.1 g/dL (6.4-8.2)
[2021-11-23] MEDS: INSULIN -REGULAR HUMAN 50 UNIT/0.5 ML ML SQ SCH (09:10)
[2021-11-23] MEDS: INSULIN GLARGINE 100 UNIT/ML SQ SCH (09:10)
[2021-11-23] MEDS: APIXABAN 2.5 MG TABLET PO SCH (09:11)
[2021-11-23 19:52] VITALS: TEMP 97.7
[2021-11-23 20:08] VITALS: BP 126/83; O2SAT 97
== END 2021-11-23 10:55 | disposition home or self-care (01) ==
LOC: ER 21:08 → ERHOLD 11-22 02:30 → 4TH 11-22 14:06
PROVIDERS: ADMIT Internal Medicine Sleep Medicine; ATTEND Internal Medicine Sleep Medicine
DX: J81.1 Chronic pulmonary edema (principal); N17.9 Acute kidney failure, unspecified; N18.30 Chronic kidney disease, stage 3 unspecified; I48.91 Unspecified atrial fibrillation; I48.20 Chronic atrial fibrillation, unspecified; I50.32 Chronic diastolic (congestive) heart failure; I13.10 Hypertensive heart and chronic kidney disease without heart failure, with stage 1 through stage 4 chronic kidney disease, or unspecified chronic kidney disease; R55 Syncope and collapse; E11.22 Type 2 diabetes mellitus with diabetic chronic kidney disease; E11.65 Type 2 diabetes mellitus with hyperglycemia; E78.5 Hyperlipidemia, unspecified; E03.9 Hypothyroidism, unspecified; I69.369 Other paralytic syndrome following cerebral infarction affecting unspecified side; G82.20 Paraplegia, unspecified; K21.9 Gastro-esophageal reflux disease without esophagitis; M10.9 Gout, unspecified; Z82.3 Family history of stroke; Z88.8 Allergy status to other drugs, medicaments and biological substances; Z79.4 Long term (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; Z79.01 Long term (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 anticoagulants; Z20.822 Contact with and (suspected) exposure to COVID-19; R60.0 Localized edema
CPT/HCPCS: 93005; 93306; 87040 ×2; 85025 ×3; 80048; 36415 ×2; 82947 ×5; 84443; 84484 ×3; 84439; 80053 ×2; 83880; 80307; 70450; 71045; 76770; 82805; 96374; 99285; 87811; J1940 ×2; J1815 ×4; J7030; G0378 ×3; 81003; 81015

== ENCOUNTER 2022-08-16 20:55 | Observation (INO) | payer MEDICARE ==
--- OUTSIDE RECORDS SUMMARY | 2022-08-16 21:02 | XMS REPORT | Continuity of Care Document ---
:1965 Author Organization [facility] t Address [address] [place] [address] Care Team Providers Name Role Phone Priya Baltazar MD, William Primary Care Physician [phone] Ramon Powers Attending Clinician Unavailable Wilner Elise Attending Clinician Shilo -Duyen Burch Attending Clinician Shilo_capo Attending Clinician Unavailable Roxana Attending Clinician Unavailable Terrell Amato MD Attending Clinician Avis Jackson Attending Clinician Nell Franco Attending Clinician ROVERTO_S Attending Clinician Unavailable MANDEEP PARKS Attending Clinician Unavailable Mandeep Parks Attending Clinician FAITH GOMEZ Attending Clinician Unavailable Birdie Virgen Attending Clinician Gamaliel Nicholas Attending Clinician Cori Martinez Attending Clinician Tung Azevedo Jr Attending Clinician Shilo_capo Admitting Clinician Unavailable Tello_Devante Admitting Clinician Unavailable ROVERTO_Kat Admitting Clinician Unavailable MANDEEP PARKS Admitting Clinician Unavailable Mandeep Parks Admitting Clinician FAITH GOMEZ Admitting Clinician Unavailable Payers Payer Name Policy Type Policy Effective Date Expiration Date Sour ce Number [employer] [id number] 2020 (MEDICARE 00:00:00 REPLACEMENT HMO) [employer] C1 [id number] [facility] Problems Condition Condition Condition Status Onset Resolution Last Treating Co mments Source Name Details Category Date Date Treatment Clinician Date ACUTE ACUTE Diagnosis Active 2020-06-27 [facility] oria CHEST PAIN CHEST PAIN 06-14 21:53:00 l Active 00:00: [place] 06/14/2020 00 [facility] CHEST PAIN CHEST Diagnosis [facility]14 [facility] 06-14 23:21:00 l Active 00:00: [place] 06/14/2020 00 [facility] DM2 DM2 Disease Recurre [facility] (diabetes (diabetes nce 4-24 [facility] mellitus, mellitus, 00:00: Medi timothy type 2) type 2) 00 Center Epididymit Epididymit Disease Active [facility], [facility] 4[facility] HTN HTN Disease Active [facility] (hypertens (hypertens 4-24 Cindy kes ion) ion) 00:00: Medical 00 Center Hypothyroi Hypothyroi Disease Active [facility] F/U F/U Diagnosis Active 2014-06-06 Mem oria Active 11-15 12:19:00 l 11/15/2013 00:00: Jose AQUINO [facility] 00 EVAL EVAL Diagnosis Active 2013-12-14 Mem oria Active 11-15 15:03:00 l 11/15/2013 00:00: Jose AQUINO [facility] 00 DC F/U DC F/U Diagnosis Active 2013-12-20 emoria Active 09-12 15:41:00 l 09/12/2013 00:00: Jose barajas [facility] 00 FERT FERT Diagnosis Active 2013-11-08 Mem oria Active 06-21 01:18:00 l 06/21/2013 00:00: Jose barajas [facility] 00 ED ED Active Diagnosis Active 2013-11-08 Memoria 06/20/201306-20 01:18:00 l [facility] 00:00: [place] 00 NO ORDERS NO ORDERS Diagnosis Active 2013-11-08 Memoria WRITTEN WRITTEN 05-24 01:18:00 l Active 00:00: [place] 05/24/2013 00 [facility] NEUROGENIC NEUROGENI Diagnosis Active 2014-07-28 Memoria BLADDER C BLADDER 04-19 16:13:00 l Active 00:00: [place] 04/19/2013 00 [facility] TBI TBI Diagnosis Active 2013-12-12 Mem oria Active 03-09 12:27:00 l 03/09/2000 23:59: Jose barajas [facility] 00 SCI SCI Diagnosis Active 2014-09-13 [facility] oria Active 03-09 16:37:00 l 03/09/2000 08:00: Jose barajas [facility] 00 [id number] Bladder Problem Common calculus [facility] Neurogenic Neurogenic Problem C ommon bladder bladder [facility] Paraplegia Paraplegic Problem C ommon spinal [facility] paralysis [facility] [id number] Gross Problem Common hematuria [facility] [id number] Neurogenic Problem Co mmon bladder, [facility] flaccid 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 Memor ia hyperchole hyperchole 19:04:26 l sterolemia sterolemia He rmann (disorder) (disorder) Active Problem 02/22/2014 [facility] Impotence Problem Active 2020-06-17 Me moria (disorder) Impotence 22:29:12 l (disorder) Jose n Active Problem 06/17/2020 [facility] Spinal Spinal Problem Active 2020-06-17 Brandon karina cord cord 22:29:12 l injury injury [place] (disorder) (disorder) Active Problem 06/17/2020 [facility] CHEST CHEST Diagnosis Active 2020-06-27 Mem oria PAIN, PAIN, 21:53:00 l UNSPECIFIE UNSPECIFIE He rmann D D Active [facility] ILLNESS, ILLNESS, Diagnosis Active 2020-06-14 Memoria UNSPECIFIE UNSPECIFIE 23:21:00 l D D Active [place] [facility] Spinal Spinal Problem Resolve 2020-06-17 2020-06-17 Memoria cord cord d 11-15 22:29:12 22:29:12 l stroke stroke 00:00: [place] (disorder) (disorder) 00 Resolved 11/15/2013 Problem 06/17/2020 apr 19 2013 [facility] Diabetes Diabetes Problem Resolve 2020-06-17 2020-06-17 Memoria mellitus mellitus d 07-08 22:29:12 22:29:12 l (disorder) (disorder) 00:00: He rmann Resolved 00 07/08/2013 Problem 06/17/2020 [facility] GOUT(Confi GOUT(Conf Problem Resolve 2020-06-17 2020-06-17 Memoria rmed) irmed) d 07-08 22:29:12 22:29:12 l Resolved 00:00: [place] 07/08/2013 00 Problem 06/17/2020 [facility] Hyperchole Hyperchol Problem Resolve 2020-06-17 2020-06-17 Memoria sterolemia esterolemi d 07-08 22:29:12 22:29:12 l (disorder) a 00:00: Jose barajas (disorder) 00 Resolved 07/08/2013 Problem 06/17/2020 [facility] Essential Essential Problem Resolve 2020-06-17 2020-06-17 Memoria hypertensi hypertensi d 07-08 22:29:12 22:29:12 l on on 00:00: [place] (disorder) (disorder) 00 Resolved 07/08/2013 Problem 06/17/2020 [facility] Allergies, Adverse Reactions, Alerts Allergy Allergy Status [...] Stop Date Source Natural brother Kidney disease [facility] Natural mother Diabetes [facility] Natural sister Diabetes [facility] Social History Social Habit Start Date Stop Date Quantity Comments Source History of Tobacco [facility] - Use [facility] Gender identity [facility]ainism [facility] Tobacco use and 2021-09-19 2021-09-19 Smokeless Jainism exposure 00:00:00 00:00:00 tobacco non-user Hospital History of Social 2021-09-19 2021-09-[address] function 00:00:00 00:00:00 Hospital Alcohol intake 2016-07-01 2016-07-01 Current [facility] 00:00:00 00:00:00 non-drinker of Medical Ce nter alcohol (finding) Social History 2013-04-20 2013-04-20 [facility] 11:02:37 11:02:37 Sex [birth year] At [birth year] [facility]ism 00:00:00 00:00:00 Hospital Smoking Status Start Date Stop Date Source Never Smoker [facility] nter Tobacco smoking [facility] Hospit al consumption unknown Ex-smoker 2016-07-01 00:00:00 2016-07-01 [facility] 00:00:00 Center Medications Ordered Filled Start Stop Current Ordering Indication Dosage Frequency Signature Comments Components Source Medication Medication Date Date Medication? Clinician (SIG) Name Name Cipro 500 Cipro 500 2022-0 3- No 1{table BID Cipro 500 MG MG 03-22 t} MG 00:00: 00:00 00 :00 Cipro 500 Cipro 500 2022-0 3- No 1{table BID Cipro 500 MG MG 03-22 t} MG 00:00: 00:00 00 :00 Cefpodoxime Cefpodoxime 2021-2021- No 1{table BID Cefpodoxim Proxetil Proxetil 04-15 t_with_ e Proxetil 200 MG 200 MG 00:00: 00:00 food} 200 MG 00 :00 ciprofloxac 2022-0 Yes 750mg Q.5D Take 750 M ethodi in HCl 7-[address] (CIPRO) 750 18:31: mouth 2 Hos vee MG tablet 02 (two) l times a day. dexamethaso 2022-0 Yes 1mg Q.5D Take 1 mg M ethodi ne 7-[address] (DECADRON) 18:31: (two) Hospit a 0.5 MG 02 times a l tablet day with meals. ciprofloxac 2022-0 Yes 750mg Q.5D Take 750 M ethodi in HCl 7-[address] (CIPRO) 750 18:31: mouth 2 Hos vee MG tablet 02 (two) l times a day. dexamethaso 2022-0 Yes 1mg Q.5D Take 1 mg M ethodi ne 7-[address] (DECADRON) 18:31: (two) Hospit a 0.5 MG 02 times a l tablet day with meals. ciprofloxac 2022-0 Yes 750mg Q.5D Take 750 M ethodi in HCl 7-[address] (CIPRO) 750 18:31: mouth 2 Hos vee MG tablet 02 (two) l times a day. dexamethaso 2022-0 Yes 1mg Q.5D Take 1 mg M ethodi ne 7-[address] (DECADRON) 18:31: (two) Hospit a 0.5 MG 02 times a l tablet day with meals. colchicine 2021- No .6mg QD Take 1 Meth segundo 0.6 mg 7-14 08-[address] tablet 00:00: 04:59 (0.6 mg Hospita 00 :00 total) by l mouth daily for 30 days. colchicine 2021- No .6mg QD Take 1 Meth segundo 0.6 mg 7-14 08-[address] tablet 00:00: 04:59 (0.6 mg Hospita 00 :00 total) by l mouth daily for 30 days. colchicine 2021- No .6mg QD Take 1 Meth segundo 0.6 mg 7-14 08-[address] tablet 00:00: 04:59 (0.6 mg Hospita 00 :00 total) by l mouth daily for 30 days. Cefdinir Cefdinir 2020-03 BID 300 MG 300 MG 03-13 00:00: 00:00 00 :00 atorvastati No Notes: Brandon karina n 4-10 (Same As: l 02:00: Lipitor) atorvastati No Notes: Brandon karina n 4-10 (Same As: l 02:00: Lipitor) atorvastati No Notes: Brandon karina n 4-10 (Same As: l 02:00: Lipitor) cefdinir Yes 300 mg = 1 Mem oria 300 MG Oral 4-09 cap, PO, l Capsule 22:52: Q12H, X 7 Love nn day, # 14 cap, 0 Refill(s), Pharmacy: [facility], 172.72, cm, 06/14/20 23:37:00 CDT, Height, 106.545, kg, 06/14/20 23:37:00 CDT, Weight cefdinir Yes 300 mg = 1 Mem oria 300 MG Oral 4-09 cap, PO, l Capsule 22:52: Q12H, X 7 Love nn 00 day, # 14 cap, 0 Refill(s), Pharmacy: [facility], 172.72, cm, 06/14/20 23:37:00 CDT, Height, 106.545, kg, 06/14/20 23:37:00 CDT, Weight cefdinir Yes 300 mg = 1 Mem oria 300 MG Oral 4-09 cap, PO, l Capsule 22:52: Q12H, X 7 Love [place] 00 day, # 14 cap, 0 Refill(s), Pharmacy: [facility], 172.72, cm, 06/14/20 23:37:00 CDT, Height, 106.545, kg, 06/14/20 23:37:00 CDT, Weight Colchicine Yes 0.6 mg = 1 M emoria 0.6 MG Oral 4-09 tab, PO, l Tablet 22:36: BID, 0 [place] 00 Refill(s) pravastatin Yes 20 mg = 1 M emoria 20 mg oral 4-09 tab, PO, l tablet 22:36: Bedtime, # Love nn 00 90 tab, 0 Refill(s), Pharmacy: [facility], 172.72, cm, 06/14/20 23:37:00 CDT, Height, 106.545, kg, 06/14/20 23:37:00 CDT, Weight pantoprazol Yes 40 mg = 1 M emoria e 40 mg 4-09 tab, PO, l oral 22:36: Before [place] enteric 00 Breakfast, coated # 30 tab, tablet 0 Refill(s), Pharmacy: [facility], 172.72, cm, 06/14/20 23:37:00 CDT, Height, 106.545, kg, 06/14/20 23:37:00 CDT, Weight { Yes See Memoria (Methylpred 4-09 Instructio l nisolone 4 22:36: ns, PO, Herm yogesh MG Oral 00 Take by Tablet mouth as [Medrol]) } directed Pack on label., [Medrol X 6 day, # Dosepak] 21 tab, 0 Refill(s), Pharmacy: [facility], 172.72, cm, 06/14/20 23:37:00 CDT, Height, 106.545, kg, 06/14/20 23:37:00 CDT, Weight Colchicine Yes 0.6 mg = 1 M emoria 0.6 MG Oral 4-09 tab, PO, l Tablet 22:36: BID, 0 [place] 00 Refill(s) pravastatin Yes 20 mg = 1 M emoria 20 mg oral 4-09 tab, PO, l tablet 22:36: Bedtime, # Love nn 00 90 tab, 0 Refill(s), Pharmacy: [facility], 172.72, cm, 06/14/20 23:37:00 CDT, Height, 106.545, kg, 06/14/20 23:37:00 CDT, Weight pantoprazol Yes 40 mg = 1 M emoria e 40 mg 4-09 tab, PO, l oral 22:36: Before [place] enteric 00 Breakfast, coated # 30 tab, tablet 0 Refill(s), Pharmacy: [facility], 172.72, cm, 06/14/20 23:37:00 CDT, Height, 106.545, kg, 06/14/20 23:37:00 CDT, Weight { Yes See Memoria (Methylpred 4-09 Instructio l nisolone 4 22:36: ns, PO, Herm yogesh MG Oral 00 Take by Tablet mouth as [Medrol]) } directed Pack on label., [Medrol X 6 day, # Dosepak] 21 tab, 0 Refill(s), Pharmacy: [facility], 172.72, cm, 06/14/20 23:37:00 CDT, Height, 106.545, kg, 06/14/20 23:37:00 CDT, Weight Colchicine Yes 0.6 mg = 1 M emoria 0.6 MG Oral 4-09 tab, PO, l Tablet 22:36: BID, 0 [place] 00 Refill(s) pravastatin Yes 20 mg = 1 M emoria 20 mg oral 4-09 tab, PO, l tablet 22:36: Bedtime, # Love nn 00 90 tab, 0 Refill(s), Pharmacy: [facility], 172.72, cm, 06/14/20 23:37:00 CDT, Height, 106.545, kg, 04/08/21 23:37:00 CDT, Weight pantoprazol Yes 40 mg = 1 M emoria e 40 mg 4-09 tab, PO, l oral 22:36: Before [place] enteric 00 Breakfast, coated # 30 tab, tablet 0 Refill(s), Pharmacy: [facility], 172.72, cm, 06/14/20 23:37:00 CDT, Height, 106.545, kg, 06/14/20 23:37:00 CDT, Weight { Yes See Memoria (Methylpred - Instructio l nisolone 4 22:36: ns, PO, Herm yogesh MG Oral 00 Take by Tablet mouth as [Medrol]) } directed Pack on label., [Medrol X 6 day, # Dosepak] 21 tab, 0 Refill(s), Pharmacy: [facility], 172.72, cm, 06/14/20 23:37:00 CDT, Height, 106.545, kg, 06/14/20 23:37:00 CDT, Weight NovoLog No 30 unit, Memori a 06-15 Route: l 21:30: SUB-Q, [place] 00 TID-Before Meals, Dosing Weight 106.545, kg, Start date: 06/15/20 16:30:00 CDT, Duration: 30 day, Stop date: 07/15/20 11:30:00 CDT Humalog No Notes: Memoria -09 (Same as: l 21:30: Humalog) [place] 00 Roll in palms of hands gently; Do not shake vigorously . WASTE: F/P - Black; E - Municipal Trash Bin Stable for 28 days at room temperatur e. Expires in days from ____Date NovoLog No 30 unit, Memori a -09 Route: l 21:30: SUB-Q, [place] 00 TID-Before Meals, Dosing Weight 106.545, kg, Start date: 06/15/20 16:30:00 CDT, Duration: 30 day, Stop date: 07/15/20 11:30:00 CDT Humalog No Notes: Memoria 4- (Same as: l 21:30: Humalog) [place] 00 Roll in palms of hands gently; Do not shake vigorously . WASTE: F/P - Black; E - Municipal Trash Bin Stable for 28 days at room temperatur e. Expires in days from ____Date NovoLog No 30 unit, Memori a 06-15 Route: l 21:30: SUB-Q, [place] 00 TID-Before Meals, Dosing Weight 106.545, kg, Start date: 06/15/20 16:30:00 CDT, Duration: 30 day, Stop date: 07/15/20 11:30:00 CDT Humalog No Notes: Memoria 06-15 (Same as: l 21:30: Humalog) [place] 00 Roll in palms of hands gently; Do not shake vigorously . WASTE: F/P - Black; E - Municipal Trash Bin Stable for 28 days at room temperatur e. Expires in days from ____Date Ceftriaxone No Notes: Brandon karina - (Same As: l 21:00: Rocephin). Use with 100 mL NS and infuse over 30 min MEDICATION WASTE Product Size: 1000 mg Product Wasted: ___ mg Ceftriaxone No Notes: Brandon karina - (Same As: l 21:00: Rocephin). Use with 100 mL NS and infuse over 30 min MEDICATION WASTE Product Size: 1000 mg Product Wasted: ___ mg Ceftriaxone No Notes: Brandon karina - (Same As: l 21:00: Rocephin). Use with 100 mL NS and infuse over 30 min MEDICATION WASTE Product Size: 1000 mg Product Wasted: ___ mg Insulin No Notes: Memoria Glargine 06-15 (Same as: l 15:00: Lantus) Do not hold insulin without contacting prescriber WASTE: F/P - Black; E - Municipal Trash Bin "single patient use only" Stable for 28 days at room temperatur e Expires in days from ____Date Insulin No Notes: Memoria Glargine - (Same as: l 15:00: Lantus) Do [place] 00 not hold insulin without contacting prescriber WASTE: F/P - Black; E - Municipal Trash Bin "single patient use only" Stable for 28 days at room temperatur e Expires in days from ____Date Insulin No Notes: Memoria Glargine - (Same as: l 15:00: Lantus) Do [place] 00 not hold insulin without contacting prescriber WASTE: F/P - Black; E - Municipal Trash Bin "single patient use only" Stable for 28 days at room temperatur e Expires in days from ____Date Protonix No Notes: Memoria 4-09 Tablet l 14:28: should not [place] 00 be chewed or crushed. (Same as: Protonix) ketOROLAC 2020-0 No 4 days Memor ia 30 mg/mL -09 l injectable 14:28: MEDICATION H ermann solution 00 WASTE Product Size: 30 mg Product Wasted: ___ mg Protonix 2020-0 No Notes: Memoria 4-09 Tablet l 14:28: should not [place] 00 be chewed or crushed. (Same as: Protonix) ketOROLAC 2020-0 No 4 days Memor ia 30 mg/mL 4-09 l injectable 14:28: MEDICATION H ermann solution 00 WASTE Product Size: 30 mg Product Wasted: ___ mg Protonix 2020-0 No Notes: Memoria 4-09 Tablet l 14:28: should not [place] 00 be chewed or crushed. (Same as: Protonix) ketOROLAC 2020-0 No 4 days Memor ia 30 mg/mL 4-09 l injectable 14:28: MEDICATION H ermann solution 00 WASTE Product Size: 30 mg Product Wasted: ___ mg Colchicine No Notes: Memor ia 0.6 MG Oral 4-09 Hazardous l Tablet 14:00: Drug Group Love nn 3:Reproduc tive risk Hazardous Drug -- Refer to safe handling procedure PPE Matrix Fenofibrate No Notes: Brandon karina 160 MG Oral 4-09 Non-Formul l Tablet 14:00: noe Drug [place] (Same as: Tricor) Furosemide No Notes: Memor ia 20 MG Oral 4-09 (Same as: l Tablet 14:00: Lasix) July cause GI upset. Give with food or milk. insulin No 40 unit, Memori a detemir 06-15 Route: l 14:00: SUB-Q, [place] 00 Drug form: SOLN, Q12H, Dosing Weight 106.545, kg, Start date: 06/15/20 9:00:00 CDT, Duration: 30 day, Stop date: 07/14/20 21:00:00 CDT Thyroxine No Notes: Memori a 4-09 Take 1 l 14:00: hour before or 2 hours after meal; Enteral feeds may interefere with the absorption of this medication . (Same as:Synthro id, Levothroid ) Aspirin 81 No Notes: Memor ia MG Chewable 4-09 Take with l Tablet 14:00: food. Saline No Notes: Memoria Flush 0.9% 06-15 (Same as: l 14:00: BD [place] 00 Posiflush) Colchicine No Notes: Memor ia 0.6 MG Oral 4-09 Hazardous l Tablet 14:00: Drug Group Love nn 3:Reproduc tive risk Hazardous Drug -- Refer to safe handling procedure PPE Matrix Fenofibrate No Notes: Brandon karina 160 MG Oral 4-09 Non-Formul l Tablet 14:00: noe Drug [place] (Same as: Tricor) Furosemide No Notes: Memor ia 20 MG Oral 4-09 (Same as: l Tablet 14:00: Lasix) May Love nn 00 cause GI upset. Give with food or milk. insulin No 40 unit, Memori a detemir 06-15 Route: l 14:00: SUB-Q, [place] 00 Drug form: SOLN, Q12H, Dosing Weight 106.545, kg, Start date: 06/15/20 9:00:00 CDT, Duration: 30 day, Stop date: 07/14/20 21:00:00 CDT Thyroxine No Notes: Memori a 4-09 Take 1 l 14:00: hour [place] 00 before or 2 hours after meal; Enteral feeds may interefere with the absorption of this medication . (Same as:Synthro id, Levothroid ) Aspirin 81 No Notes: Memor ia MG Chewable -09 Take with l Tablet 14:00: food. [place] 00 Saline No Notes: Memoria Flush 0.9% 06-15 (Same as: l 14:00: BD Posiflush) Colchicine No Notes: Memor ia 0.6 MG Oral 06-15 Hazardous l Tablet 14:00: Drug Group Love 3:Reproduc tive risk Hazardous Drug -- Refer to safe handling procedure PPE Matrix Fenofibrate No Notes: Brandon karina 160 MG Oral -09 Non-Formul l Tablet 14:00: noe Drug (Same as: Tricor) Furosemide No Notes: Memor ia 20 MG Oral 09 (Same as: l Tablet 14:00: Lasix) May cause GI upset. Give with food or milk. insulin No 40 unit, Memori a detemir 06-15 Route: l 14:00: SUB-Q, [place] Drug form: SOLN, Q12H, Dosing Weight 106.545, kg, Start date: 06/15/20 9:00:00 CDT, Duration: 30 day, Stop date: 07/14/20 21:00:00 CDT Thyroxine No Notes: Memori a 4-09 Take 1 l 14:00: hour [place] 00 before or 2 hours after meal; Enteral feeds may interefere with the absorption of this medication . (Same as:Synthro id, Levothroid ) Aspirin 81 No Notes: Memor ia MG Chewable 06-15 Take with l Tablet 14:00: food. [place] 00 Saline No Notes: Memoria Flush 0.9% 06-15 (Same as: l 14:00: BD [place] Posiflush) BD Normal No Notes: Memori a Saline 06-15 (Same as: l Flush 12:44: BD [place] Posiflush) Sodium No 25 mL, Memoria Chloride 06-15 Route: IV, l 0.9% IV 12:44: Start [place] 00 date: 06/15/20 7:44:00 CDT, Duration: 30 day, Stop date: 07/15/20 7:43:00 CDT, PRN Line Flush, 0 BD Normal No Notes: Memori a Saline 06-15 (Same as: l Flush 12:44: BD [place] Posiflush) Sodium No 25 mL, Memoria Chloride 06-15 Route: IV, l 0.9% IV 12:44: Start [place] 00 date: 06/15/20 7:44:00 CDT, Duration: 30 day, Stop date: 07/15/20 7:43:00 CDT, PRN Line Flush, 0 BD Normal No Notes: Memori a Saline 06-15 (Same as: l Flush 12:44: BD [place] Posiflush) Sodium No 25 mL, Memoria Chloride 06-15 Route: IV, l 0.9% IV 12:44: Start date: 06/15/20 7:44:00 CDT, Duration: 30 day, Stop date: 07/15/20 7:43:00 CDT, PRN Line Flush, 0 BD Normal No Notes: Memori a Saline - (Same as: l Flush 12:43: BD [place] 00 Posiflush) BD Normal No Notes: Memori a Saline - (Same as: l Flush 12:43: BD [place] 00 Posiflush) BD Normal No Notes: Memori a Saline - (Same as: l Flush 12:43: BD [place] 00 Posiflush) Dextrose 0 No 12.5 gm, Memor ia 50% Syringe 06-15 25 mL, l (D50W) 12:36: Route: IVP, Drug Form: INJ, Dosing Weight 106.545, kg, PRN, PRN Blood Glucose Results, Start date: 06/15/20 7:36:00 CDT, Duration: 30 day, Stop date: 07/15/20 7:35:00 CDT, 0 Glucagon 2020-0 No 1 mg, Memoria 06-15 Route: IM, l 12:36: Drug form: PDR/INJ, PRN, Dosing Weight 106.545, kg, PRN Blood Glucose Results, Start date: 06/15/20 7:36:00 CDT, Duration: 30 day, Stop date: 07/15/20 7:35:00 CDT, 0 Insulin 2020-0 No Notes: Memoria Lispro 06-15 (Same as: l 12:36: Humalog) Roll in palms of hands gently; Do not shake vigorously . WASTE: F/P - Black; E - Municipal Trash Bin Stable for 28 days at room temperatur e. Expires in days from ____Date Dextrose 0 No 12.5 gm, Memor ia 50% Syringe 06-15 25 mL, l (D50W) 12:36: Route: IVP, Drug Form: INJ, Dosing Weight 106.545, kg, PRN, PRN Blood Glucose Results, Start date: 06/15/20 7:36:00 CDT, Duration: 30 day, Stop date: 07/15/20 7:35:00 CDT, 0 Glucagon 2020-0 No 1 mg, Memoria 06-15 Route: IM, l 12:36: Drug form: PDR/INJ, PRN, Dosing Weight 106.545, kg, PRN Blood Glucose Results, Start date: 06/15/20 7:36:00 CDT, Duration: 30 day, Stop date: 07/15/20 7:35:00 CDT, 0 Insulin 2020-0 No Notes: Memoria Lispro 06-15 (Same as: l 12:36: Humalog) [place] 00 Roll in palms of hands gently; Do not shake vigorously . WASTE: F/P - Black; E - Municipal Trash Bin Stable for 28 days at room temperatur e. Expires in days from ____Date Dextrose No 12.5 gm, Memor ia 50% Syringe 06-15 25 mL, l (D50W) 12:36: Route: [place] 00 IVP, Drug Form: INJ, Dosing Weight 106.545, kg, PRN, PRN Blood Glucose Results, Start date: 06/15/20 7:36:00 CDT, Duration: 30 day, Stop date: 07/15/20 7:35:00 CDT, 0 Glucagon No 1 mg, Memoria 06-15 Route: IM, l 12:36: Drug form: [place] 00 PDR/INJ, PRN, Dosing Weight 106.545, kg, PRN Blood Glucose Results, Start date: 06/15/20 7:36:00 CDT, Duration: 30 day, Stop date: 07/15/20 7:35:00 CDT, 0 Insulin No Notes: Memoria Lispro 06-15 (Same as: l 12:36: Humalog) [place] 00 Roll in palms of hands gently; Do not shake vigorously . WASTE: F/P - Black; E - Municipal Trash Bin Stable for 28 days at room temperatur e. Expires in days from ____Date Dilaudid No Notes: Memoria 06-15 Same as l 09:18: Dilaudid [place] Dilaudid No Notes: Memoria 06-15 Same as l 09:18: Dilaudid [place] Dilaudid No Notes: Memoria 06-15 Same as l 09:18: Dilaudid [place] 00 Nitroglycer No Notes: Brandon karina in 06-15 (Same l 05:09: as:Nitroqu [place] 00 ick, Nitrostat) "Do Not Crush" Sublingual tablet Saline No Notes: Memoria Flush 0.9% 06-15 (Same as: l 05:09: BD [place] 00 Posiflush) Nitroglycer No Notes: Brandon karina in 06-15 (Same l 05:09: as:Nitroqu [place] 00 ick, Nitrostat) "Do Not Crush" Sublingual tablet Saline No Notes: Memoria Flush 0.9% 06-15 (Same as: l 05:09: BD [place] Posiflush) Nitroglycer No Notes: Brandon karina in 06-15 (Same l 05:09: as:Nitroqu [place] 00 ick, Nitrostat) "Do Not Crush" Sublingual tablet Saline No Notes: Memoria Flush 0.9% 06-15 (Same as: l 05:09: BD [place] Posiflush) lisinopril No 40 mg = 1 Me moria 40 mg oral 06-15 tab, PO, l tablet 05:00: Daily, 0 [place] 00 Refill(s) lisinopril No 40 mg = 1 Me moria 40 mg oral 06-15 tab, PO, l tablet 05:00: Daily, 0 [place] 00 Refill(s) lisinopril No 40 mg = 1 Me moria 40 mg oral 06-15 tab, PO, l tablet 05:00: Daily, 0 [place] 00 Refill(s) NovoLog Yes See Memoria 06-15 Instructio l 04:58: ns, 30 U [place] 00 SUB-Q TID-Before Meals, 0 Refill(s) NovoLog Yes See Memoria 06-15 Instructio l 04:58: ns, 30 U [place] 00 SUB-Q TID-Before Meals, 0 Refill(s) NovoLog 0 Yes See Memoria 06-15 Instructio l 04:58: ns, 30 U [place] 00 SUB-Q TID-Before Meals, 0 Refill(s) insulin Yes See Memoria detemir 100 06-15 Instructio l UNT/ML 04:57: ns, 40U [place] Injectable 00 BID SUB-Q, Solution 0 [Levemir] Refill(s) insulin Yes See [facility]oria detemir 100 4-09 Instructio l UNT/ML 04:57: ns, 40U [place] Injectable 00 BID SUB-Q, Solution 0 [Levemir] Refill(s) insulin Yes See [facility]oria detemir 100 4-09 Instructio l UNT/ML 04:57: ns, 40U [place] Injectable 00 BID SUB-Q, Solution 0 [Levemir] Refill(s) levothyroxi Yes 75 Memori a ne 75 mcg 4-09 microgram l (0.075 mg) 04:56: = 1 tab, Her minor oral tablet 00 PO, Daily, 0 Refill(s) Aspirin Yes 81 mg, PO, [place] karina 4-09 Daily, 0 l 04:56: Refill(s) [place] 00 levothyroxi Yes 75 Mem[facility] a ne 75 mcg 4-09 microgram l (0.075 mg) 04:56: = 1 tab, Her minor oral tablet 00 PO, Daily, 0 Refill(s) Aspirin Yes 81 mg, PO, [place] karina 4-09 Daily, 0 l 04:56: Refill(s) [place] 00 levothyroxi Yes 75 Mem[facility] a ne 75 mcg 4-09 microgram l (0.075 mg) 04:56: = 1 tab, Her minor oral tablet 00 PO, Daily, 0 Refill(s) Aspirin 0 Yes 81 mg, PO, [place] karina 4-09 Daily, 0 l 04:56: Refill(s) [place] 00 Fenofibrate Yes 160 mg = 1 [facility] 160 MG Oral 4-09 tab, PO, l Tablet 04:55: Daily, 0 [place] 00 Refill(s) Furosemide Yes 20 mg = 1 Me moria 20 MG Oral 4-09 tab, PO, l Tablet 04:55: Daily, 0 [place] 00 Refill(s) Fenofibrate Yes 160 mg = 1 [facility] 160 MG Oral 4-09 tab, PO, l Tablet 04:55: Daily, 0 [place] 00 Refill(s) Furosemide Yes 20 mg = 1 Me moria 20 MG Oral 4-09 tab, PO, l Tablet 04:55: Daily, 0 [place] 00 Refill(s) Fenofibrate Yes 160 mg = 1 [facility] 160 MG Oral 4-09 tab, PO, l Tablet 04:55: Daily, 0 [place] 00 Refill(s) Furosemide Yes 20 mg = 1 Me moria 20 MG Oral 4-09 tab, PO, l Tablet 04:55: Daily, 0 [place] 00 Refill(s) Colchicine No 0.6 mg = 1 M emoria 0.6 MG Oral 4-09 tab, PO, l Tablet 04:54: BID, 0 [place] 00 Refill(s) Colchicine No 0.6 mg = 1 M emoria 0.6 MG Oral 4-09 tab, PO, l Tablet 04:54: BID, 0 [place] 00 Refill(s) Colchicine No 0.6 mg = 1 M emoria 0.6 MG Oral 4-09 tab, PO, l Tablet 04:54: BID, 0 [place] 00 Refill(s) atenolol Yes 50mg QD Take [address] [facility] (TENORMIN) 4-28 by [facility] 50 MG 15:23: daily. [facility] tablet 08 Center oxybutynin Yes 5mg [id number] Take [address] [facility] (DITROPAN) 4-28 [id number] by mouth 3 [facility] 5 MG tablet [...] scale starts at 20 units . colchicine 2017-0 Yes .6mg Take 0.[address] [facility] (COLCRYS) 4-28 mg by [facility] 0.6 mg 15:23: mouth 2 Medical tablet 08 (two) Center times daily as needed As needed for gout . atenolol 2017 Yes 50mg QD Take [address] [facility] (TENORMIN) 4-28 by mouth [facility] 50 MG 15:23: daily. Medical tablet 08 Center oxybutynin 2017 Yes 5mg Q.[id number] Take [address] [facility] (DITROPAN) 4-28 [id number] by mouth 3 [facility] 5 MG tablet 15:23: 3D (three) Med ical 08 times Center daily. pantoprazol 2017 Yes 40mg QD Take [address] [facility] e 4-28 by mouth [facility] (PROTONIX) 15:23: daily Medica l 40 MG 08 Before Center tablet breakfast . levothyroxi 2017 Yes 75ug Take [address] [facility] ne 4-28 mcg by [facility] (SYNTHROID, 15:23: mouth Medic al LEVOTHROID) 08 Every Center 75 MCG morning on tablet an empty stomach. insulin 2017 Yes 36U Q.5D Inject [facility] (LEVEMIR) 15:23: subcutaneo Me dical 100 unit/mL 08 usly 2 Center (3 mL) InPn (two) injection times daily pen . insulin 2017-0 Yes 20U Inject 20 [facility] lispro [facility] (HUMALOG) 15:23: subcutaneo Me dical 100 unit/mL 08 usly 3 Center injection (three) times daily before meals Sliding scale starts at 20 units . colchicine 2017-0 Yes .6mg Take 0.[address] [facility] (COLCRYS) 4-28 mg by [facility] 0.6 mg 15:23: mouth 2 Medical tablet 08 (two) Center times daily as needed As needed for gout . atenolol 2017- Yes 50mg QD Take [address] [facility] (TENORMIN) 4-28 by mouth [facility] 50 MG 15:23: daily. Medical tablet 08 Center oxybutynin 2017-0 Yes 5mg Q.[id number] Take [address] [facility] (DITROPAN) 4-28 [id number] by mouth 3 [facility] 5 MG tablet [...] [facility]oria porcine 5-02 unit, l 16:46: SUB-Q, [place] 00 Q12H, 0 Refill(s) glimepiride Yes 4 mg = 1 Me moria 4 mg oral 5-02 tab, PO, l tablet 16:46: Daily, # [place] 00 30 tab, 0 Refill(s) Docusate Yes 100 mg = 1 Mem oria Sodium 100 5-02 cap, PO, l MG Oral 16:46: BID, [place] Capsule 00 Constipati [Colace] on, # 20 cap, 0 Refill(s) Bisacodyl Yes 10 mg = 1 Mem oria 10 MG 5-02 supp, [place], l Rectal 16:46: Daily, [place] Suppository 00 Constipati [Bisac-Evac on, # 10 ] supp, 0 Refill(s) Atenolol 50 Yes 50 mg = 1 M emoria MG Oral 5-02 tab, PO, l Tablet 16:46: Daily, # [place] 00 30 tab, 0 Refill(s) allopurinol Yes 100 mg = 1 [facility] 100 mg oral 5-02 tab, PO, l tablet 16:46: TID, # 60 Jose n 00 tab, 0 Refill(s) 3 ML Yes sliding [facility] Insulin, 5-02 scale l Aspart, 16:46: before [place] Human 100 00 meals, UNT/ML SUB-Q, Prefilled [...] SUB-Q, BID, # 10 ml, 0 Refill(s) heparin, Yes 7,500 [facility] porcine 5-02 unit, l 16:46: SUB-Q, [place] 00 Q12H, 0 Refill(s) glimepiride Yes 4 mg = 1 Me moria 4 mg oral 5-02 tab, PO, l tablet 16:46: Daily, # [place] 00 30 tab, 0 Refill(s) Docusate Yes 100 mg = 1 [facility] Sodium 100 5-02 cap, PO, l MG Oral 16:46: BID, [place] Capsule 00 Constipati [Colace] on, # 20 cap, 0 Refill(s) Bisacodyl Yes 10 mg = 1 Mem o[facility] 10 MG 5-02 supp, [place], l Rectal 16:46: Daily, [place] Suppository 00 Constipati [Bisac-Evac on, # 10 ] supp, 0 Refill(s) Atenolol 50 Yes 50 mg = 1 M emoria MG Oral 5-02 tab, PO, l Tablet 16:46: Daily, # [place] 00 30 tab, 0 Refill(s) allopurinol Yes 100 mg = 1 [facility] 100 mg oral 5-02 tab, PO, l tablet 16:46: TID, # 60 Jose n 00 tab, 0 Refill(s) 3 ML Yes sliding [facility] Insulin, 5-02 scale l Aspart, 16:46: before [place] Human 100 00 meals, UNT/ML SUB-Q, Prefilled TID-Before Syringe Meals, # 3 [NovoLog] mL, 0 Refill(s) Senna-gen Yes Special Memor ia 8.6 mg oral 5-02 Instructio l tablet 16:46: ns: at [place] 00 noon Ranitidine Yes 150 mg = [...] SUB-Q, BID, # 10 ml, 0 Refill(s) heparin, Yes 7,500 [facility] porcine 5-02 unit, l 16:46: SUB-Q, [place] 00 Q12H, 0 Refill(s) glimepiride Yes 4 mg = 1 Me moria 4 mg oral 5-02 tab, PO, l tablet 16:46: Daily, # [place] 00 30 tab, 0 Refill(s) Docusate Yes 100 mg = 1 Mem oria Sodium 100 5-02 cap, PO, l MG Oral 16:46: BID, [place] Capsule 00 Constipati [Colace] on, # 20 cap, 0 Refill(s) Bisacodyl Yes 10 mg = 1 Mem oria 10 MG 5-02 supp, [place], l Rectal 16:46: Daily, [place] Suppository 00 Constipati [Bisac-Evac on, # 10 ] supp, 0 Refill(s) Atenolol 50 Yes 50 mg = 1 M emoria MG Oral 5-02 tab, PO, l Tablet 16:46: Daily, # [place] 00 30 tab, 0 Refill(s) allopurinol Yes 100 mg = 1 [facility] 100 mg oral 5-02 tab, PO, l tablet 16:46: TID, # 60 Jose n 00 tab, 0 Refill(s) 3 ML Yes sliding [facility] Insulin, 5-02 scale l Aspart, 16:46: before [place] Human 100 00 meals, UNT/ML SUB-Q, Prefilled [...] l 15:20: as:Omnipaq [place] 00 ue 300). Omnipaque Yes Notes: Memori a 300 4-14 (Same l 15:20: as:Omnipaq [place] 00 ue 300). Omnipaque Yes Notes: Memori a 300 4-14 (Same l 15:20: as:Omnipaq [place] 00 ue 300). Omeprazole Omeprazole No QD Omeprazole 40 MG 40 MG 40 MG Sotalol HCl Sotalol HCl No 1{table BID Sotalol 80 MG 80 MG t} HCl 80 MG Levothyroxi Levothyroxi No QD Levothyrox ne Sodium ne Sodium ine Sodium 75 MCG 75 MCG 75 MCG NovoLOG 100 NovoLOG 100 No NovoLOG UNIT/ML UNIT/ML 100 UNIT/ML Levemir 100 Levemir 100 No Levemir UNIT/ML UNIT/ML 100 UNIT/ML Euthyrox Euthyrox No QD Euthyrox 150 MCG 150 MCG 150 MCG Breztri Breztri No 2{puffs BID Breztri Aerosphere Aerosphere } Aerosphere 160-9-4.8 160-9-4.8 160-9-4.8 MCG/ACT MCG/ACT MCG/ACT Fenofibrate Fenofibrate No 1{table QD Fenofibrat 160 MG 160 MG t} e 160 MG Colchicine Colchicine No 1{table Colchicine 0.6 MG 0.6 MG t} 0.6 MG Lisinopril Lisinopril No 1{table QD Lisinopril 40 MG 40 MG t} 40 MG amLODIPine amLODIPine No 1{table QD amLODIPine Besylate 10 Besylate 10 t} Besylate MG MG 10 MG Nitrofurant Nitrofurant No 1{capsu BID Nitrofuran oin Monohyd oin Monohyd le_with toin Macro 100 Macro 100 _food} Monohyd MG MG Macro 100 MG Allopurinol Allopurinol No 1{table QD Allopurino 100 MG 100 MG t} l 100 MG Furosemide Furosemide No 1{table QD Furosemide 20 MG 20 MG t} 20 MG Atenolol 50 Atenolol 50 No 1{table QD Atenolol MG MG t} 50 MG Eliquis 2.5 Eliquis 2.5 No Eliquis mg 2.5 mg mg 2.5 mg 2.5 mg 2.5 mg Breztri Breztri No 2{puffs BID Breztri Aerosphere Aerosphere } Aerosphere 160-9-4.8 160-9-4.8 160-9-4.8 MCG/ACT MCG/ACT MCG/ACT NovoLOG 100 NovoLOG 100 No NovoLOG UNIT/ML UNIT/ML 100 UNIT/ML Furosemide Furosemide No 1{table QD Furosemide 20 MG 20 MG t} 20 MG Levemir 100 Levemir 100 No Levemir UNIT/ML UNIT/ML 100 UNIT/ML Fenofibrate Fenofibrate No 1{table QD Fenofibrat 160 MG 160 MG t} e 160 MG Allopurinol Allopurinol No 1{table QD Allopurino 100 MG 100 MG t} l 100 MG Colchicine Colchicine No 1{table Colchicine 0.6 MG 0.6 MG t} 0.6 MG amLODIPine amLODIPine No 1{table QD amLODIPine Besylate 10 Besylate 10 t} Besylate MG MG 10 MG Levothyroxi Levothyroxi No QD Levothyrox ne Sodium ne Sodium ine Sodium 75 MCG 75 MCG 75 MCG Nitrofurant Nitrofurant No 1{capsu BID Nitrofuran oin Monohyd oin Monohyd le_with toin Macro 100 Macro 100 _food} Monohyd MG MG Macro 100 MG Omeprazole Omeprazole No QD Omeprazole 40 MG 40 MG 40 MG Atenolol 50 Atenolol 50 No 1{table QD Atenolol MG MG t} 50 MG Lisinopril Lisinopril No 1{table QD Lisinopril 40 MG 40 MG t} 40 MG Eliquis 2.5 Eliquis 2.5 No Eliquis mg 2.5 mg mg 2.5 mg 2.5 mg 2.5 mg Sotalol HCl Sotalol HCl No 1{table BID Sotalol 80 MG 80 MG t} HCl 80 MG Euthyrox Euthyrox No QD Euthyrox 150 MCG 150 MCG 150 MCG Breztri Breztri No 2{puffs BID Breztri Aerosphere Aerosphere } Aerosphere 160-9-4.8 160-9-4.8 160-9-4.8 MCG/ACT MCG/ACT MCG/ACT NovoLOG 100 NovoLOG 100 No NovoLOG UNIT/ML UNIT/ML 100 UNIT/ML Furosemide Furosemide No 1{table QD Furosemide 20 MG 20 MG t} 20 MG Levemir 100 Levemir 100 No Levemir UNIT/ML UNIT/ML 100 UNIT/ML Fenofibrate Fenofibrate No 1{table QD Fenofibrat 160 MG 160 MG t} e 160 MG Allopurinol Allopurinol No 1{table QD Allopurino 100 MG 100 MG t} l 100 MG Colchicine Colchicine No 1{table Colchicine 0.6 MG 0.6 MG t} 0.6 MG amLODIPine amLODIPine No 1{table QD amLODIPine Besylate 10 Besylate 10 t} Besylate MG MG 10 MG Levothyroxi Levothyroxi No QD Levothyrox ne Sodium ne Sodium ine Sodium 75 MCG 75 MCG 75 MCG Nitrofurant Nitrofurant No 1{capsu BID Nitrofuran oin Monohyd oin Monohyd le_with toin Macro 100 Macro 100 _food} Monohyd MG MG Macro 100 MG Omeprazole Omeprazole No QD Omeprazole 40 MG 40 MG 40 MG Atenolol 50 Atenolol 50 No 1{table QD Atenolol MG MG t} 50 MG Lisinopril Lisinopril No 1{table QD Lisinopril 40 MG 40 MG t} 40 MG Eliquis 2.5 Eliquis 2.5 No Eliquis mg 2.5 mg mg 2.5 mg 2.5 mg 2.5 mg Sotalol HCl Sotalol HCl No 1{table BID Sotalol 80 MG 80 MG t} HCl 80 MG Euthyrox Euthyrox No QD Euthyrox 150 MCG 150 MCG 150 MCG NovoLOG 100 NovoLOG 100 No UNIT/ML UNIT/ML Atenolol 50 Atenolol 50 No 1{table QD MG MG t} Levothyroxi Levothyroxi No QD ne Sodium ne Sodium 75 MCG 75 MCG Fenofibrate Fenofibrate No 1{table QD 160 MG 160 MG t} Levemir 100 Levemir 100 No UNIT/ML UNIT/ML Atenolol 50 Atenolol 50 No 1{table QD Atenolol MG MG t} 50 MG Levothyroxi Levothyroxi No QD Levothyrox ne Sodium ne Sodium ine Sodium 75 MCG 75 MCG 75 MCG Fenofibrate Fenofibrate No 1{table QD Fenofibrat 160 MG 160 MG t} e 160 MG Levemir 100 Levemir 100 No Levemir UNIT/ML UNIT/ML 100 UNIT/ML NovoLOG 100 NovoLOG 100 No NovoLOG UNIT/ML UNIT/ML 100 UNIT/ML Atenolol 50 Atenolol 50 No 1{table QD Atenolol MG MG t} 50 MG Levothyroxi Levothyroxi No QD Levothyrox ne Sodium ne Sodium ine Sodium 75 MCG 75 MCG 75 MCG Fenofibrate Fenofibrate No 1{table QD Fenofibrat 160 MG 160 MG t} e 160 MG Levemir 100 Levemir 100 No Levemir UNIT/ML UNIT/ML 100 UNIT/ML NovoLOG 100 NovoLOG 100 No NovoLOG UNIT/ML UNIT/ML 100 UNIT/ML Atenolol 50 Atenolol 50 No 1{table QD Atenolol MG MG t} 50 MG Levothyroxi Levothyroxi No QD Levothyrox ne Sodium ne Sodium ine Sodium 75 MCG 75 MCG 75 MCG Fenofibrate Fenofibrate No 1{table QD Fenofibrat 160 MG 160 MG t} e 160 MG Levemir 100 Levemir 100 No Levemir UNIT/ML UNIT/ML 100 UNIT/ML NovoLOG 100 NovoLOG 100 No NovoLOG UNIT/ML UNIT/ML 100 UNIT/ML Omeprazole Omeprazole No QD Omeprazole 40 MG 40 MG 40 MG Furosemide Furosemide No 1{table QD Furosemide 20 MG 20 MG t} 20 MG Lisinopril Lisinopril No 1{table QD Lisinopril 40 MG 40 MG t} 40 MG Colchicine Colchicine No 1{table Colchicine 0.6 MG 0.6 MG t} 0.6 MG amLODIPine amLODIPine No 1{table QD amLODIPine Besylate 10 Besylate 10 t} Besylate MG MG 10 MG Allopurinol Allopurinol No 1{table QD Allopurino 100 MG 100 MG t} l 100 MG Eliquis 2.5 Eliquis 2.5 No Eliquis mg 2.5 mg mg 2.5 mg 2.5 mg 2.5 mg Euthyrox Euthyrox No QD Euthyrox 150 MCG 150 MCG 150 MCG Levothyroxi Levothyroxi No QD Levothyrox ne Sodium ne Sodium ine Sodium 75 MCG 75 MCG 75 MCG Fenofibrate Fenofibrate No 1{table QD Fenofibrat 160 MG 160 MG t} e 160 MG Breztri Breztri No 2{puffs BID Breztri Aerosphere Aerosphere } Aerosphere 160-9-4.8 160-9-4.8 160-9-4.8 MCG/ACT MCG/ACT MCG/ACT NovoLOG 100 NovoLOG 100 No NovoLOG UNIT/ML UNIT/ML 100 UNIT/ML Levemir 100 Levemir 100 No Levemir UNIT/ML UNIT/ML 100 UNIT/ML Sotalol HCl Sotalol HCl No 1{table BID Sotalol 80 MG 80 MG t} HCl 80 MG Nitrofurant Nitrofurant No 1{capsu BID Nitrofuran oin Monohyd oin Monohyd le_with toin Macro 100 Macro 100 _food} Monohyd MG MG Macro 100 MG Atenolol 50 Atenolol 50 No 1{table QD Atenolol MG MG t} 50 MG Immunizations Ordered Immunization Filled Immunization Date Status Commen ts Source Name Name pneumococcal 2013-04-21 Completed [facility] 23-valent vaccine 03:02:00 [place] influenza virus 2013-04-21 Completed [facility] vaccine, inactivated 03:02:00 [facility] yogesh pneumococcal 2013-04-21 Completed [facility] 23-valent vaccine 03:02:00 [place] influenza virus 2013-04-21 Completed [facility] vaccine, inactivated 03:02:00 [facility] yogesh pneumococcal 2013-04-21 Completed [facility] 23-valent vaccine 03:02:00 [place] influenza virus 2013-04-21 Completed [facility] vaccine, inactivated 03:02:00 Domingo zuñiga Vital Signs Vital Name Observation Time Observation Value Comments Source height 2022-02-13 17:15:00 68 [in_i] [facility] weight 2022-02-13 17:15:00 245 [lb_av] [facility] temperature 2022-02-13 17:15:00 98.6 [degF] [facility] bmi 2022-02-13 17:15:00 37.25 kg/m2 [facility] oximetry 2022-02-13 17:15:00 96 % [facility] respiratory rate 2022-02-13 17:15:00 16 /min Comm on [facility] blood pressure 2022-02-13 17:15:00 171 mm[Hg] Common [facility] - systolic [facility] blood pressure 2022-02-13 17:15:00 97 mm[Hg] [facility] height 2022-02-06 14:30:00 68 [in_i] [facility] weight 2022-02-06 14:30:00 244 [lb_av] Common S [facility] temperature 2022-02-06 14:30:00 98.2 [degF] [facility] bmi 2022-02-06 14:30:00 37.1 kg/m2 Common [facility] oximetry 2022-02-06 14:30:00 97 % Common [facility] respiratory rate 2022-02-06 14:30:00 16 /min Comm on [facility] blood pressure 2022-02-06 14:30:00 164 mm[Hg] Common [facility] - systolic [facility] blood pressure 2022-02-06 14:30:00 90 mm[Hg] [facility] height 2021-02-11 11:20:00 68 [in_i] [facility] weight 2021-02-11 11:20:00 235 [lb_av] [facility] temperature 2021-02-11 11:20:00 98.7 [degF] [facility] bmi 2021-02-11 11:20:00 35.73 kg/m2 [facility] oximetry 2021-02-11 11:20:00 95 % Common [facility] blood pressure 2021-02-11 11:20:00 170 mm[Hg] [facility] blood pressure 2021-02-11 11:20:00 99 mm[Hg] [facility] height 2021-01-11 08:40:00 68 [in_i] [facility] weight 2021-01-11 08:40:00 235 [lb_av] [facility] temperature 2021-01-11 08:40:00 97.8 [degF] [facility] bmi 2021-01-11 08:40:00 35.73 kg/m2 [facility] oximetry 2021-01-11 08:40:00 95 % [facility] blood pressure 2021-01-11 08:40:00 162 mm[Hg] [facility] - systolic [facility] blood pressure 2021-01-11 08:40:00 90 mm[Hg] [facility] - diastolic [facility] Systolic blood 2021-09-19 22:03:00 127 mm[Hg] [facility] pressure Diastolic blood 2021-09-19 22:03:00 79 mm[Hg] [facility] pressure Heart rate 2021-09-19 22:03:00 80 /min [facility] Body temperature 2021-09-19 22:03:00 36.72 Awilda [facility] Respiratory rate 2021-09-19 22:03:00 18 /min [facility] Oxygen saturation in 2021-09-19 22:03:00 97 /min [facility] Arterial blood by Pulse oximetry Body height 2021-09-19 19:13:00 172.7 cm [facility] Body weight 2021-09-19 19:13:00 108.863 kg [facility] BMI 2021-09-19 19:13:00 36.49 kg/m2 [facility] Temperature Oral (F) 2020-06-15 20:48:00 98.0 F [facility] Heart Rate 2020-06-15 20:48:00 [facility] 2020-06-15 20:48:00 Evin Brink Systolic (mm Hg) 2020-06-15 20:48:00 Brandon rial [place] Diastolic (mm Hg) 2020-06-15 20:48:00 Mem orial [place] Temperature Oral (F) 2020-06-15 17:22:00 97.6 F [facility] [place] Heart Rate 2020-06-15 17:22:00 [facility] [place] Respitory Rate 2020-06-15 17:22:00 Memori al [place] Systolic (mm Hg) 2020-06-15 17:22:00 Brandon rial [place] Diastolic (mm Hg) 2020-06-15 17:22:00 Mem orial [place] Temperature Oral (F) 2020-06-15 12:55:00 97.6 F [facility] [place] Heart Rate 2020-06-15 12:55:00 [facility] [place] Respitory Rate 2020-06-15 12:55:00 Memori al [place] Systolic (mm Hg) 2020-06-15 12:55:00 Brandon rial [place] Diastolic (mm Hg) 2020-06-15 12:55:00 Mem orial [place] BMI Calculated 2020-06-15 05:09:00 [facility] [place] Height 2020-06-15 04:37:00 172.72 cm [facility] [place] Weight 2020-06-15 04:37:00 [facility] [place] BMI Calculated 2020-06-15 04:37:00 Memori al [place] Heart Rate 2014-02-11 18:33:00 [facility] [place] Systolic (mm Hg) 2014-02-11 18:33:00 Brandon rial [place] Diastolic (mm Hg) 2014-02-11 18:33:00 Mem orial [place] Systolic (mm Hg) 2014-01-21 16:31:00 Brandon rial [place] Heart Rate 2014-01-21 16:31:00 [facility] [place] Diastolic (mm Hg) 2014-01-21 16:31:00 Mem orial [place] Heart Rate 2013-12-24 17:08:00 [facility] [place] Diastolic (mm Hg) 2013-12-24 17:08:00 Mem [facility] [place] Systolic (mm Hg) 2013-12-24 17:08:00 Brandon rial [place] Systolic (mm Hg) 2013-12-17 17:32:00 Brandon rial [place] Heart Rate 2013-12-17 17:32:00 [facility] [place] Diastolic (mm Hg) 2013-12-17 17:32:00 Mem orial [place] Heart Rate 2013-12-14 20:29:00 [facility] [place] Diastolic (mm Hg) 2013-12-14 20:29:00 Mem o[facility] [place] Respitory Rate 2013-12-14 20:29:00 Memori al [place] Systolic (mm Hg) 2013-12-14 20:29:00 Brandon rial [place] BMI Calculated 2013-12-14 20:29:00 [facility] al [place] Weight 2013-12-14 20:29:00 [facility] [place] Height 2013-12-14 20:29:00 172.72 cm [facility] [place] Diastolic (mm Hg) 2013-12-10 14:08:00 Mem orial [place] Systolic (mm Hg) 2013-12-10 14:08:00 Brandon rial [place] Systolic (mm Hg) 2013-12-03 14:19:00 Brandon rial [place] Diastolic (mm Hg) 2013-12-03 14:19:00 Mem orial [place] Diastolic (mm Hg) 2013-11-15 13:38:00 Mem orial [place] Respitory Rate 2013-11-15 13:38:00 Memori al [place] Heart Rate 2013-11-15 13:38:00 [facility] [place] Systolic (mm Hg) 2013-11-15 13:38:00 Brandon rial [place] Temperature Oral (F) 2013-11-15 13:38:00 98.2 F [facility] [place] BMI Calculated 2013-11-15 13:38:00 [facility] [place] Height 2013-11-15 13:38:00 172.72 cm [facility] [place] Weight 2013-11-15 13:38:00 [facility] [place] Heart Rate 2013-11-12 15:07:00 [facility] [place] Diastolic (mm Hg) 2013-11-12 15:07:00 Mem orial [place] Systolic (mm Hg) 2013-11-12 15:07:00 Brandon rial [place] BMI Calculated 2013-07-08 16:51:00 [facility] [place] Height 2013-07-08 16:51:00 172.72 cm [facility] [place] Weight 2013-07-08 16:51:00 [facility] [place] Diastolic (mm Hg) 2013-07-08 16:51:00 Mem o[facility] [place] Systolic (mm Hg) 2013-07-08 16:51:00 Brandon rial [place] Heart Rate 2013-07-08 16:51:00 [facility] [place] Respitory Rate 2013-07-08 16:51:00 [facility] [place] Diastolic (mm Hg) 2013-06-30 17:34:00 Mem [facility] [place] Systolic (mm Hg) 2013-06-30 17:34:00 Brandon rial [place] Heart Rate 2013-06-28 23:23:00 [facility] [place] Systolic (mm Hg) 2013-06-28 23:23:00 Brandon rial [place] Diastolic (mm Hg) 2013-06-28 23:23:00 Mem [facility] [place] Heart Rate 2013-06-20 15:01:00 [facility] [place] Respitory Rate 2013-06-20 15:01:00 [facility] [place] Systolic (mm Hg) 2013-06-20 15:01:00 Brandon rial [place] Diastolic (mm Hg) 2013-06-20 15:01:00 Mem [facility]rial [place] Temperature Oral (F) 2013-06-20 15:01:00 98.7 F [facility] [place] Height 2013-06-20 15:00:00 172.72 cm [facility] [place] BMI Calculated 2013-06-20 15:00:00 [facility] [place] Weight 2013-06-20 15:00:00 [facility] [place] Diastolic (mm Hg) 2013-06-07 16:00:00 Mem orial [place] Systolic (mm Hg) 2013-06-07 16:00:00 Brandon rial [place] Heart Rate 2013-06-07 16:00:00 [facility] [place] Heart Rate 2013-06-07 15:07:00 [facility] [place] Procedures Procedure Date / Time Performing Clinician Source Performed XR ELBOW 3+ VW RIGHT 2021-09-19 21:32:47 [facility] XR FINGER 2+ VW RIGHT 2021-09-19 21:32:23 [facility] CBC WITH PLATELET AND 2021-09-19 21:13:00 [facility] DIFFERENTIAL LACTIC ACID LEVEL, SEPSIS 2021-09-19 21:13:00 [facility] - NOW AND REPEAT 2X EVERY 3 HOURS COMPREHENSIVE METABOLIC 2021-09-19 21:13:00 Nori Meléndez [facility] PANEL ESTIMATED GFR 2021-09-19 [facility] Video urodynamic study 2013-06-20 05:00:00 Roberto levin [place] Laminectomy [facility] Plan of Care Planned Activity Planned Date Details Comments Source Future Scheduled 2022-06-09 COVID-19 VACCINE (#1) [facility] Test 09:45:16 [code = COVID-19 VACCINE (#1)] Future Scheduled 2022-06-09 Pneumococcal Vaccine: [facility] Test 09:45:16 Pediatrics (0 to 5 Years) and At-Risk Patients (6 to 64 Years) (1 - PCV) [code = Pneumococcal Vaccine: Pediatrics (0 to 5 Years) and At-Risk Patients (6 to 64 Years) (1 - PCV)] Future Scheduled 2022-06-09 Hepatitis C screening [facility] Test 09:45:16 (procedure) [code = [id number]] Future Scheduled 2022-06-09 SHINGLES VACCINES (1 Met [facility] Test 09:45:16 of 2) [code = SHINGLES VACCINES (1 of 2)] Future Scheduled 2022-06-09 COLONOSCOPY SCREENING [facility] Test 09:45:16 [code = COLONOSCOPY SCREENING] Future Scheduled 2022-06-09 INFLUENZA VACCINE [facility] 09:45:16 [code = INFLUENZA VACCINE] Future Scheduled 2022-06-09 COVID-19 VACCINE (#1) [facility] Test 09:45:16 [code = COVID-19 VACCINE (#1)] Future Scheduled 2022-06-09 Pneumococcal Vaccine: [facility] Test 09:45:16 Pediatrics (0 to 5 Years) and At-Risk Patients (6 to 64 Years) (1 - PCV) [code = Pneumococcal Vaccine: Pediatrics (0 to 5 Years) and At-Risk Patients (6 to 64 Years) (1 - PCV)] Future Scheduled 2022-06-09 Hepatitis C screening [facility] Test 09:45:16 (procedure) [code = 143509489] Future Scheduled 2022-06-09 SHINGLES VACCINES (1 Met [facility] Test 09:45:16 of 2) [code = SHINGLES VACCINES (1 of 2)] Future Scheduled 2022-06-09 [facility] Test 09:45:16 malignant neoplasm of colon (procedure) [code = 973075452] Future Scheduled 2022-06-09 INFLUENZA VACCINE [facility] Test 09:45:16 [code = INFLUENZA VACCINE] Future Scheduled 2021-11-09 HEPATITIS B VACCINES Met [facility] Test 11:01:57 (1 of 3 - 3-dose series) [code = HEPATITIS B VACCINES (1 of 3 - 3-dose series)] Future Scheduled 2021-11-09 COVID-19 VACCINE (#1) [facility] Test 11:01:57 [code = COVID-19 VACCINE (#1)] Future Scheduled 2021-11-09 Pneumococcal Vaccine: [facility] Test 11:01:57 Pediatrics (0 to 5 Years) and At-Risk Patients (6 to 64 Years) (1 - PCV) [code = Pneumococcal Vaccine: Pediatrics (0 to 5 Years) and At-Risk Patients (6 to 64 Years) (1 - PCV)] Future Scheduled 2021-11-09 Hepatitis C screening [facility] Test 11:01:57 (procedure) [code = 346526079] Future Scheduled 2021-11-09 SHINGLES VACCINES (1 Met [facility] Test 11:01:57 of 2) [code = SHINGLES VACCINES (1 of 2)] Future Scheduled 2021-11-09 COLONOSCOPY SCREENING [facility] Test 11:01:57 [code = COLONOSCOPY SCREENING] Future Scheduled 2021-11-09 INFLUENZA VACCINE Method [facility] Test 11:01:57 [code = INFLUENZA VACCINE] Encounters Start End Encounter Admission Attending Care Care Encounter Source Date/Time Date/Time Type Type Clinicians Facility Department ID 2022-02-04 Outpatient Powers, STLMLC [facility] [id number] Common 11:07:02 Ramon [id number] [facility] 2021-04-03 Outpatient Powers, STLC [facility] [id number] Common 14:09:15 Ramon [id number] [facility] 2021-04-03 Outpatient [facility] [id number] Common 12:01:03 [id number] [facility] 2022-06-13 2022-06-13 CORBY Visit Wilner Elise 2.16.840. 2.16.840.1 . [id number] Devoted 18:30:00 19:30:00 1.567579. 037077.4.6. [facility] 4.6.73790 [id number] 2022-06-05 2022-06-05 CAV Duyen 2.16.840. 2.16.840.1. AWA [id number] Devoted 17:00:00 18:00:00 Shilo 1.309754. 408186.4.6. [facility] Medical 4.6.16513 [id number] 2022-03-22 2022-03-22 (TEL) STLMLC STLMLC [id number] Co mmon 00:00:00 00:00:00 [facility] 2022-03-18 2022-03-18 (ESTPT) STLMLC STLMLC [id number] Co mmon 00:00:00 00:00:00 Toña goode Patient - [facility] 2022-02-13 2022-02-13 OFFICE STLMLC STLMLC [id number] Co mmon 00:00:00 00:00:00 VISIT EST Spir it PT LEVEL 3 [facility] 2022-02-06 2022-02-06 OFFICE STLMLC STLMLC [id number] Co mmon 00:00:00 00:00:00 VISIT EST Spir it PT LEVEL 3 [facility] 2022-01-02 2022-01-02 CAV Duyen 2.16.840. 2.16.840.1. AWA [id number] Devoted 18:00:00 19:00:00 Shilo 1.078270. 826145.4.6. [address] 4.6.48814 [id number] 2021-12-25 2021-12-25 Outpatient Daniels_b [facility] [id number] Devoted 00:00:00 00:00:00 1019 [facility] l [facility] 2021-12-25 2021-12-25 Outpatient Daniels_b [facility] [id number] Devoted 00:00:00 00:00:00 0506 Medica l Group 2021-09-24 2021-09-24 Travel 1.2.840.1 1.2.479.638 [id number] Methodi 00:00:00 00:00:[address] 3.430.2.7 0.2.7.3.698 Ho spita .3.168830 084.8 l .8 2021-09-24 2021-09-24 Travel 1.2.840.1 1.2.345.866 6253 [id number] Methodi 00:00:00 00:00:[address] 3.430.2.7 0.2.7.3.698 Ho spita .3.164444 084.8 l .8 2021-09-20 2021-09-20 Outpatient [facility] [id number] -2021 Devoted 03:38:00 03:38:00 0715 Medica l Group 2021-09-19 2021-09-19 Emergency Amato, 1.2.840.1 [id number] Methodi 15:47:00 18:31:[address] 3.430.2.7 Hospit a .3.436085 l .8 2021-09-19 2021-09-19 Emergency Amato, 1.2.840.1 [id number] 2 [id number] Methodi 15:47:00 18:31:[address] 3.430.2.7 Hospit a .3.179378 l .8 2021-09-19 2021-09-19 (TEL) STLMLC STLMLC [id number] Co mmon 00:00:00 00:00:00 [facility] 2021-09-19 2021-09-19 Travel 1.2.840.1 1.2.937.680 3412 [id number] Methodi 00:00:00 00:00:[address] 3.430.2.7 0.2.7.3.698 Ho spita .3.643580 084.8 l .8 2021-09-19 2021-09-19 Travel 1.2.840.1 1.2.015.683 0207 [id number] Methodi 00:00:00 00:00:[address] 3.430.2.7 0.2.7.3.698 Ho spita .3.606213 084.8 l .8 2021-09-18 2021-09-18 (TEL) STLMLC STLMLC [id number] Co mmon 00:00:00 00:00:00 [facility] 2021-07-05 2021-07-05 CORBY Avis 2.16.840. 2.16.840.1. CLAC [id number] Devoted 16:30:00 17:00:00 Jackson 1.071565. 607228.4.6. [facility] 4.6.75326 [id number] 2021-06-24 2021-06-24 CORBY Avis 2.16.840. 2.16.840.1. CLAC [id number] Devoted 16:30:00 17:00:00 Jackson 1.142118. 476045.4.6. [facility] 4.6.21002 [id number] 2021-06-21 2021-06-21 CORBY Avis 2.16.840. 2.16.840.1. CLAC [id number] Devoted 14:00:00 14:30:00 Jackson 1.819260. 843668.4.6. 5JR Medical 4.6.47273 [id number] 2021-06-14 2021-06-14 CORBY Avis 2.16.840. 2.16.840.1. CLAC [id number] Devoted 14:30:00 15:30:00 Jackson 1.327338. 956560.4.6. 85U Medical 4.6.27571 [id number] 2021-04-23 2021-04-23 Outpatient Trevino_M DMG DMG 65914 -2021 Devoted 08:00:00 08:00:00 0215 Medica l Group 2021-03-21 2021-03-21 CAV Nell 2.16.840. 2.16.840.1. CLAC [id number] Devoted 16:30:00 17:30:00 Joan 1.142903. 020300.4.6. Z4G Medical 4.6.33251 [id number] 2021-03-12 2021-03-12 Outpatient Trevino_M DMG G 93226 -2021 Devoted 03:11:00 03:11:00 0104 Medica l Group 2021-02-11 2021-02-11 Outpatient CURRY_S DMG [facility] [id number] 021 Devoted 05:35:00 05:35:00 1206 Medica l Group 2021-02-11 2021-02-11 OFFICE STLMLC STLMLC [id number] Co mmon 00:00:00 00:00:00 VISIT EST Spir it PT LEVEL 3 - [facility] 2021-01-11 2021-01-11 OFFICE STLMLC STLMLC [id number] Co mmon 00:00:00 00:00:00 VISIT EST Spir it PT LEVEL 3 - [facility] 2020-06-15 2020-06-16 Observatio nullFlavo [facility] 3487 [id number] Memoria 05:09:00 00:09:00 karl Caruso 98 l [facility] 2020-06-15 2020-06-16 Observatio nullFlavo [facility] 3487 [id number] Memoria 05:09:00 00:09:00 karl Mchugh l [facility] 2020-06-15 2020-06-15 Outpatient U CHARLY [facility] MED 1098 Memoria 00:09:00 19:09:00 MANDEEP Chowdhury [facility] 2020-06-15 2020-06-15 Outpatient Charly [facility] [id number] 00:09:00 19:09:00 Mandeep Mchugh 2020-02-14 2020-02-14 Outpatient STLMLC STLMLC [id number] Common 00:00:00 00:00:00 [facility] 2020-02-07 2020-02-07 Outpatient STLMLC STLMLC [id number] Common 00:00:00 00:00:00 [facility] 2020-01-17 2020-01-17 Outpatient STLMLC STLMLC [id number] Common 00:00:00 00:00:00 [facility] 2020-01-16 2020-01-16 Outpatient STLMLC STLMLC [id number] Common 00:00:00 00:00:00 [facility] 2020-01-09 2020-01-09 Outpatient STLMLC STLMLC [id number] Common 00:00:00 00:00:00 [facility] 2014-01-21 2014-02-20 [facility] nullFlavo [facility] [id number] Memoria 14:00:00 05:59:00 Therapy r [place] 09 l [facility] [place] 2014-01-21 2014-02-20 [facility] nullFlavo [facility] [id number] Memoria 14:00:00 05:59:00 Therapy r [place] 09 l [facility] [place] 2014-01-21 2014-02-19 Outpatient Tastard, 2.16.840. 2.16.840.1. [id number] 08:00:00 23:59:00 Birdie Amparo 1.365343. 052450.3.61 09 3.615.0.1 5.0.358 92 2386-11-15 2014-02-19 Outpatient Tastard, 2.16.840. 2.16.840.1. [id number] 08:00:00 23:59:00 Birdie Amparo 1.807628. 083106.3.61 09 3.615.0.1 5.0.697 88 4884-11-15 2014-02-19 Outpatient Tastard, 2.16.840. 2.16.840.1. [id number] 08:00:00 23:59:00 Birdie Amparo 1.768644. 036514.3.61 09 3.615.0.1 5.0.477 79 5830-10-11 2014-01-16 Tots nullFlavo [facility] [id number] 594 Memoria 13:00:00 05:59:00 Therapy r Shady Caruso 2013-12-17 2014-01-16 Tots nullFlavo [facility] [id number] Memoria 13:00:00 05:59:00 Therapy r Shady Caruso 2013-12-17 2014-01-15 Outpatient Tastard, 2.16.840. 2.16.840.1. [id number] 08:00:00 23:59:00 Birdie Amparo 1.294882. 488058.3.61 08 3.615.0.1 5.0.640 07 5711-10-08 2013-12-15 Outpatient nullFlavo [facility] 3487 [id number] Memoria 19:55:00 04:59:00 r Shady Caruso 2013-12-14 2013-12-15 Outpatient nullFlavo [place] [id number] Memoria 19:55:00 04:59:00 r Shady Caruso 2013-12-14 2013-12-14 Outpatient Nicholas, 2.16.840. 2.16.840.1. 3 [id number] 14:55:00 23:59:00 Gamaliel 1.189346. 744177.3.61 11 Daniel 3.615.0.1 5.0.340 56 9932-09-06 2013-12-12 Tots nullFlavo [facility] [id number] 594 Memoria 13:00:00 04:59:00 Therapy r Shady Caruso 2013-11-12 2013-12-12 Tots nullFlavo [facility] [id number] Memoria 13:00:00 04:59:00 Therapy r Shady Caruso 2013-11-12 2013-12-11 Outpatient Tastard, 2.16.840. 2.16.840.1. [id number] 08:00:00 23:59:00 Birdie Amparo 1.140259. 714059.3.61 07 3.615.0.1 5.0.553 70 9430-09-09 2013-11-16 Outpatient nullFlavo [facility] 3487 [id number] Memoria 13:01:00 04:59:00 r Shady 10 l ADEN Caruso 2013-11-15 2013-11-16 Outpatient nullFlavo [facility] 3487 [id number] Memoria 13:01:00 04:59:00 r Shady 10 l ADEN Caruso 2013-11-15 2013-11-15 Outpatient Michelle, 2.16.840. 2.16.840.1. 3 [id number] 08:01:00 23:59:00 Cori Jennifer 1.595912. 993703.3.61 10 3.615.0.1 5.0.411 92 0795-08-02 2013-11-07 Tots nullFlavo [facility] [id number] Memoria 13:00:00 04:59:00 Therapy r Shady 06 l ADEN Caruso 2013-10-08 2013-11-07 Tots nullFlavo [facility] [id number] Memoria 13:00:00 04:59:00 Therapy r Shady 06 l ADEN Laneann 2013-10-08 2013-11-06 Outpatient Tastard, 2.16.840. 2.16.840.1. [id number] 08:00:00 23:59:00 Birdie Amparo 1.804587. 004659.3.61 06 3.615.0.1 5.0.088 95 7666-07-05 2013-10-10 Tots nullFlavo [facility] [id number] Memoria 13:00:00 04:59:00 Therapy r Shady 05 l ADEN Laneann 2013-09-10 2013-10-10 Tots nullFlavo [facility] [id number] Memoria 13:00:00 04:59:00 Therapy r Shady 05 l ADEN Caruso 2013-09-10 2013-10-09 Outpatient Tastard, 2.16.840. 2.16.840.1. [id number] 08:00:00 23:59:00 Birdie Amparo 1.507307. 408164.3.61 05 3.615.0.1 5.0.078 43 6690-05-02 2013-07-09 Outpatient nullFlavo [facility] 3487 [id number] Memoria 16:26:00 04:59:00 r Shady 04 l ADEN Laneann 2013-07-08 2013-07-09 Outpatient nullFlavo [facility] 3487 [id number] Memoria 16:26:00 04:59:00 r Shady 04 irais Caruso 2013-07-08 2013-07-08 Outpatient Tastard, 2.16.840. 2.16.840.1. [id number] 11:26:00 23:59:00 Birdie Amparo 1.519323. 069033.3.61 04 3.615.0.1 5.0.211 52 4514-04-01 2013-07-07 Tots nullFlavo [facility] [id number] Memoria 14:13:00 04:59:00 Therapy r Shady 03 l ADEN Caruso 2013-06-07 2013-07-07 Tots nullFlavo [facility] [id number] Memoria 14:13:00 04:59:00 Therapy r Shady 03 l ADEN Caruso 2013-06-07 2013-07-06 Outpatient Tastard, 2.16.840. 2.16.840.1. [id number] 09:13:00 23:59:00 Birdie Amparo 1.914139. 193482.3.61 03 3.615.0.1 5.0.660 49 3045-04-14 2013-06-21 Outpatient nullFlavo [facility] 3487 [id number] Memoria 14:43:00 04:59:00 r Shady Mark Laneann 2013-06-20 2013-06-21 Outpatient nullFlavo [facility] [id number] [id number] Memoria 14:43:00 04:59:00 r Shady 02 irais SAMANIEGO Shady 2013-06-20 2013-06-20 Outpatient Bertini, 2.16.840. 2.16.840.1. [id number] 09:43:00 23:59:00 Tung Salguero 1.255779. 116736.3.61 02 3.615.0.1 5.0.101 01 Results Test Description Test Time Test Comments Results Result Comments Source URINE AND STOOL 2020-06-15 16:30:00 Test Item Value Reference Range Interpretation Comme nts UA Nitrite (test code = UA Nitrite) Positive *ABN*(06/15/20 11:30 AM) Kari CarusoURINE AND [id number] 16:30:00 Test Item Value Reference Range Interpretation Comments UA Leuk Est (test code Large *ABN*(06/15/20 = UA Leuk Est) 11:30 AM) [facility] Tk AND [id number] 16:30:00 Test Item Value Reference Range Interpretation Comments UA WBC (test code = 84 See_Comment [Automa faye message] The UA WBC) system which ge nerated this result transmit faye reference range : <=5. The reference range was not used to interpr et this result as nathaly l/abnormal. [facility] Tk AND [id number] 16:30:00 Test Item Value Reference Range Interpretation Comments UA RBC (test code = 9 See_Comment [Automa faye message] The UA RBC) system which ge nerated this result transmit faye reference range : <=2. The reference range was not used to interpr et this result as nathaly l/abnormal. [facility] Tk AND [id number] 16:30:00 Test Item Value Reference Range Interpretation Comments UA Bacteria (test code = UA Moderate /HPF Bacteria) [facility] [id number] 16:30:00 Test Item Value Reference Range Interpretation Comments UA Sq Epi (test code = UA Sq Epi) None Seen [facility] [id number] 16:30:00 Test Item Value Reference Range Interpretation Comments UA Color (test code = UA Color) Chani [facility] [id number] 16:30:00 Test Item Value Reference Range Interpretation Comments UA Glucose (test code = UA Glucose) 500 [facility] [id number] 16:30:00 Test Item Value Reference Range Interpretation Comments UA Urobilinogen (test code = UA <=1.0 mg/dL 0.1-1.0 Urobilinogen) [facility] ShadyCEFTAZIDIME:SUSC:PT:ISOLATE:ORDQN:[id number] 16:30:00 Test Item Value Reference Range Interpretation Comments Culture: Urine (test >100,000 CFU/mL Proteus code = Culture: mirabilis >100,000 Urine) CFU/mL Skin Emily [facility] ShadyCEFTAZIDIME:SUSC:PT:ISOLATE:ORDQN:[id number] 16:30:00 Test Item Value Reference Range Interpretation Comments Proteus mirabilis (test Proteus mirabilis code = Proteus mirabilis) [facility] AND [id number] 16:30:00 Test Item Value Reference Range Interpretation Comments UA Turbidity (test code Marked *ABN*(06/15/20 = UA Turbidity) 11:30 AM) [facility] AND [id number] 16:30:00 Test Item Value Reference Range Interpretation Comments UA Spec Grav (test code = UA Spec 1.022 1 Grav) [facility] AND [id number] 16:30:00 Test Item Value Reference Range Interpretation Comments UA pH (test code = UA pH) 7.0 1 5.0-8.0 [facility] AND [id number] 16:30:00 Test Item Value Reference Range Interpretation Comments UA Protein (test code = UA Protein) 100 mg/dL [facility] AND [id number] 16:30:00 Test Item Value Reference Range Interpretation Comments UA Ketones (test code = UA Trace mg/dL Ketones) [facility] AND [id number] 16:30:00 Test Item Value Reference Range Interpretation Comments UA Bili (test code = Negative *NA*(06/15/20 UA Bili) 11:30 AM) [facility] AND [id number] 16:30:00 Test Item Value Reference Range Interpretation Comments UA Blood (test code = Small *ABN*(06/15/20 UA Blood) 11:30 AM) [facility] AND [id number] 16:30:00 Test Item Value Reference Range Interpretation Comments UA Nitrite (test code Positive *ABN*(06/15/20 = UA Nitrite) 11:30 AM) [facility] AND [id number] 16:30:00 Test Item Value Reference Range Interpretation Comments UA Leuk Est (test code Large *ABN*(06/15/20 = UA Leuk Est) 11:30 AM) [facility] AND [id number] 16:30:00 Test Item Value Reference Range Interpretation Comments UA WBC (test code = 84 See_Comment [Automa faye message] The UA WBC) system which ge nerated this result transmit faye reference range : <=5. The reference range was not used to interpr et this result as nathaly l/abnormal. [facility] [id number] 16:30:00 Test Item Value Reference Range Interpretation Comments UA RBC (test code = 9 See_Comment [Automa faye message] The UA RBC) system which ge nerated this result transmit faye reference range : <=2. The reference range was not used to interpr et this result as nathaly l/abnormal. [facility] [id number] 16:30:00 Test Item Value Reference Range Interpretation Comments UA Bacteria (test code = UA Moderate /HPF Bacteria) [facility] AND [id number] 16:30:00 Test Item Value Reference Range Interpretation Comments UA Sq Epi (test code = UA Sq Epi) None Seen [facility] [id number] 16:30:00 Test Item Value Reference Range Interpretation Comments UA Color (test code = UA Color) Chani [facility] AND [id number] 16:30:00 Test Item Value Reference Range Interpretation Comments UA Glucose (test code = UA Glucose) 500 [facility] AND [id number] 16:30:00 Test Item Value Reference Range Interpretation Comments UA Urobilinogen (test code = UA <=1.0 mg/dL 0.1-1.0 Urobilinogen) [facility]okeIDIME:SUSC:PT:ISOLATE:ORDQN:[id number] 16:30:00 Test Item Value Reference Range Interpretation Comments Culture: Urine (test >100,000 CFU/mL Proteus code = Culture: mirabilis >100,000 Urine) CFU/mL Skin Emily [facility]REGAZ[facility]IME:SUSC:PT:ISOLATE:ORDQN:[id number] 16:30:00 Test Item Value Reference Range Interpretation Comments Proteus mirabilis (test Proteus mirabilis code = Proteus mirabilis) [facility] AND [id number] 16:30:00 Test Item Value Reference Range Interpretation Comments UA Turbidity (test code Marked *ABN*(06/15/20 = UA Turbidity) 11:30 AM) [facility] AND [id number] 16:30:00 Test Item Value Reference Range Interpretation Comments UA Spec Grav (test code = UA Spec 1.022 1 Grav) [facility] AND [id number] 16:30:00 Test Item Value Reference Range Interpretation Comments UA pH (test code = UA pH) 7.0 1 5.0-8.0 [facility] AND [id number] 16:30:00 Test Item Value Reference Range Interpretation Comments UA Protein (test code = UA Protein) 100 mg/dL [facility] AND [id number] 16:30:00 Test Item Value Reference Range Interpretation Comments UA Ketones (test code = UA Trace mg/dL Ketones) [facility] AND [id number] 16:30:00 Test Item Value Reference Range Interpretation Comments UA Bili (test code = Negative *NA*(06/15/20 UA Bili) 11:30 AM) [facility] AND [id number] 16:30:00 Test Item Value Reference Range Interpretation Comments UA Blood (test code = Small *ABN*(06/15/20 UA Blood) 11:30 AM) [facility] AND [id number] 16:30:00 Test Item Value Reference Range Interpretation Comments UA Blood (test code = Small *ABN*(06/15/20 UA Blood) 11:30 AM) [facility] AND [id number] 16:30:00 Test Item Value Reference Range Interpretation Comments UA Nitrite (test code Positive *ABN*(06/15/20 = UA Nitrite) 11:30 AM) [facility] AND [id number] 16:30:00 Test Item Value Reference Range Interpretation Comments UA Leuk Est (test code Large *ABN*(06/15/20 = UA Leuk Est) 11:30 AM) [facility] AND [id number] 16:30:00 Test Item Value Reference Range Interpretation Comments UA WBC (test code = 84 See_Comment [Automa faye message] The UA WBC) system which ge nerated this result transmit faye reference range : <=5. The reference range was not used to interpr et this result as nathaly l/abnormal. [facility] AND [id number] 16:30:00 Test Item Value Reference Range Interpretation Comments UA RBC (test code = 9 See_Comment [Automa faye message] The UA RBC) system which ge nerated this result transmit faye reference range : <=2. The reference range was not used to interpr et this result as nathaly l/abnormal. [facility] AND [id number] 16:30:00 Test Item Value Reference Range Interpretation Comments UA Bacteria (test code = UA Moderate /HPF Bacteria) [facility] AND [id number] 16:30:00 Test Item Value Reference Range Interpretation Comments UA Sq Epi (test code = UA Sq Epi) None Seen [facility] AND [id number] 16:30:00 Test Item Value Reference Range Interpretation Comments UA Color (test code = UA Color) Chani [facility] AND [id number] 16:30:00 Test Item Value Reference Range Interpretation Comments UA Glucose (test code = UA Glucose) 500 [facility] AND [id number] 16:30:00 Test Item Value Reference Range Interpretation Comments UA Urobilinogen (test code = UA <=1.0 mg/dL 0.1-1.0 Urobilinogen) [facility]:ISOLATE:ORDQN:[id number] 16:30:00 Test Item Value Reference Range Interpretation Comments Culture: Urine (test >100,000 CFU/mL Proteus code = Culture: mirabilis >100,000 Urine) CFU/mL Skin Emily [facility]C:PT:ISOLATE:ORDQN:[id number] 16:30:00 Test Item Value Reference Range Interpretation Comments Proteus mirabilis (test Proteus mirabilis code = Proteus mirabilis) [facility] AND [id number] 16:30:00 Test Item Value Reference Range Interpretation Comments UA Turbidity (test code Marked *ABN*(06/15/20 = UA Turbidity) 11:30 AM) [facility] AND [id number] 16:30:00 Test Item Value Reference Range Interpretation Comments UA Spec Grav (test code = UA Spec 1.022 1 Grav) [facility] AND [id number] 16:30:00 Test Item Value Reference Range Interpretation Comments UA pH (test code = UA pH) 7.0 1 5.0-8.0 [facility] AND [id number] 16:30:00 Test Item Value Reference Range Interpretation Comments UA Protein (test code = UA Protein) 100 mg/dL [facility] [id number] 16:30:00 Test Item Value Reference Range Interpretation Comments UA Ketones (test code = UA Trace mg/dL Ketones) [facility] AND [id number] 16:30:00 Test Item Value Reference Range Interpretation Comments UA Bili (test code = Negative *NA*(06/15/20 UA Bili) 11:30 AM) [facility]2021-04-09 10:57:00 Test Item Value Reference Range Interpretation Comments Troponin-I (test code no gt See_Comment [Auto mated message] The = Troponin-I) system which g enerated this result transmit faye reference range : <=0.40. The reference r rodrigo was not used to interpr et this result as nathaly l/abnormal. [facility] [id number] 10:57:00 Test Item Value Reference Range Interpretation Comments Troponin-I (test code no gt See_Comment [Auto mated message] The = Troponin-I) system which g enerated this result transmit faye reference range : <=0.40. The reference r rodirgo was not used to interpr et this result as nathaly l/abnormal. [facility] [id number] 10:57:00 Test Item Value Reference Range Interpretation Comments Troponin-I (test code no gt See_Comment [Auto mated message] The = Troponin-I) system which g enerated this result transmit faye reference range : <=0.40. The reference r rodrigo was not used to interpr et this result as nathaly l/abnormal. [facility] [id number] 06:53:00 Test Item Value Reference Range Interpretation Comments Troponin-I (test code no gt See_Comment [Auto mated message] The = Troponin-I) system which g enerated this result transmit faye reference range : <=0.40. The reference r rodrigo was not used to interpr et this result as nathaly l/abnormal. [id number] 06:53:00 Test Item Value Reference Range Interpretation Comments Trig (test code = Trig) 330 [id number] 06:53:00 Test Item Value Reference Range Interpretation Comments Chol (test code = Chol) 174 [id number] 06:53:00 Test Item Value Reference Range Interpretation Comments HDL (test code = HDL) 28 [facility] [id number] 06:53:00 Test Item Value Reference Range Interpretation Comments CHD Risk (test code = CHD Risk) 6.21 1 4.00-7.30 [facility] [id number] 06:53:00 Test Item Value Reference Range Interpretation Comments LDL (Calculated) (test code = LDL 80 (Calculated)) [facility] CenterQzocpczMXNTJI8341-13-17 06:53:00 Test Item Value Reference Range Interpretation Comments VLDL (test code = VLDL) 66 1 [facility] CenterannCARDIAC [id number] 06:53:00 Test Item Value Reference Range Interpretation Comments Troponin-I (test code no gt See_Comment [Auto mated message] The = Troponin-I) system which g enerated this result transmit faye reference range : <=0.40. The reference r rodrigo was not used to interpr et this result as nathaly l/abnormal. [facility] [id number] 06:53:00 Test Item Value Reference Range Interpretation Comments Trig (test code = Trig) 330 [facility] [id number] 06:53:00 Test Item Value Reference Range Interpretation Comments Chol (test code = Chol) 174 [facility]12 06:53:00 Test Item Value Reference Range Interpretation Comments HDL (test code = HDL) 28 [facility] CenterEunhzmsKWMKXR3242-41-20 06:53:00 Test Item Value Reference Range Interpretation Comments CHD Risk (test code = CHD Risk) 6.21 1 4.00-7.30 [facility] CenterOrphffgLDIEDF4680-18-92 06:53:00 Test Item Value Reference Range Interpretation Comments LDL (Calculated) (test code = LDL 80 (Calculated)) [facility] CenterLzdfovgQRBWAL4784-25-34 06:53:00 Test Item Value Reference Range Interpretation Comments VLDL (test code = VLDL) 66 1 [facility] [id number] 06:53:00 Test Item Value Reference Range Interpretation Comments Troponin-I (test code no gt See_Comment [Auto mated message] The = Troponin-I) system which g enerated this result transmit faye reference range : <=0.40. The reference r rodrigo was not used to interpr et this result as nathaly l/abnormal. [facility] CenterHljhrldFDMJVH7482-07-84 06:53:00 Test Item Value Reference Range Interpretation Comments Trig (test code = Trig) 330 [facility] CenterPfncudrGLQVZY5940-81-04 06:53:00 Test Item Value Reference Range Interpretation Comments Chol (test code = Chol) 174 [facility] HospitalRidmwmwBFEQTD6094-05-78 06:53:00 Test Item Value Reference Range Interpretation Comments HDL (test code = HDL) 28 [facility] SystemJzixthkBBYPWG2381-00-02 06:53:00 Test Item Value Reference Range Interpretation Comments CHD Risk (test code = CHD Risk) 6.21 1 4.00-7.30 [facility] CenterKzykxfcHFVWGJ9737-47-20 06:53:00 Test Item Value Reference Range Interpretation Comments LDL (Calculated) (test code = LDL 80 (Calculated)) [facility] SystemIemyeiaZGJDMI3489-80-37 06:53:00 Test Item Value Reference Range Interpretation Comments VLDL (test code = VLDL) 66 1 [facility] [id number] 14:28:00 Test Item Value Reference Range Interpretation Comments CULTURE (BEAKER) (test No growth in 5 days code = 1095) POCT-GLUCOSE [id number] 12:04:00 Test Item Value Reference Range Interpretation Comments POC-GLUCOSE METER 179 mg/dL 70-110 H TESTED AT [facility] 6720 (BEAKER) (test code = ADOLFO Willett [facility] 1538) [address] BASIC METABOLIC [id number] 09:51:00 Test Item Value Reference Range Interpretation [...] PATIEN TS. CBC W/PLT COUNT & AUTO [id number] 09:20:00 Test Item Value Reference Range Interpretation [...] ABSOLUTE COUNT 1.23 K/ L 1.48-4.50 L (AKER) (test code = 414) MONOCYTES ABSOLUTE COUNT (BEAKER) 0.28 K/ L 0.00-1.30 (test code = 415) EOSINOPHILS ABSOLUTE COUNT 0.21 K/ L 0.00-0.50 (BEAKER) (test code = 416) BASOPHILS ABSOLUTE COUNT (BEAKER) 0.03 K/ L 0.00-0.20 (test code = 417) 0.00POCT-GLUCOSE [id number] 07:15:00 Test Item Value Reference Range Interpretation Comments POC-GLUCOSE METER 246 mg/dL 70-110 H TESTED AT [place] [address] ([facility]) (test code = [facility] 1538) [address] POCT-GLUCOSE [id number] 21:12:00 Test Item Value Reference Range Interpretation Comments POC-GLUCOSE METER 89 mg/dL 70-110 TESTED AT [place] [address] ([facility]) (test code = [facility] [address] 1538) POCT-GLUCOSE [id number] 17:12:00 Test Item Value Reference Range Interpretation Comments POC-GLUCOSE METER 217 mg/dL 70-110 H TESTED AT [place] [address] ([facility]) (test code = [facility] 1538) [address] URINE [id number] 12:07:00 Test Item Value Reference Range Interpretation Comments CULTURE ([facility]) (test <10,000 col/mL skin code = 1095) emily POCT-GLUCOSE [id number] 11:30:00 Test Item Value Reference Range Interpretation Comments POC-GLUCOSE METER 205 mg/dL 70-110 H TESTED AT [place] [address] ([facility]) (test code = [facility] 1538) [id number] POCT-GLUCOSE [id number] 07:36:00 Test Item Value Reference Range Interpretation Comments POC-GLUCOSE METER 195 mg/dL 70-110 H TESTED AT [place] [address] ([facility]) (test code = [facility] 1538) [address] CBC W/PLT COUNT & AUTO [id number] 05:14:00 Test Item Value Reference Range Interpretation Comments WHITE BLOOD CELL COUNT ([facility]) 6.7 K/ L 4.0-10.0 (test [...] 0.00-0.20 (test code = 417) 0.00BASIC METABOLIC [id number] 05:14:00 Test Item Value Reference Range Interpretation [...] mg/dL 8.4-10.2 (test code = 697) EGFR ([facility]) (test 67 mL/min/1.73 ESTIMA FAYE GFR IS code = 1092) sq m NOT ACCURATE CREATININE CLEARANCE IN PREDICTING GLOMERULAR FILTRATION RATE . ESTIMATED GFR I S NOT APPLICABLE FOR DIALYSIS PATIEN TS. POCT-GLUCOSE [id number] 21:04:00 Test Item Value Reference Range Interpretation Comments POC-GLUCOSE METER 178 mg/dL 70-110 H TESTED AT [place] [address] ([facility]) (test code = [facility] 1538) [address] POCT-GLUCOSE [id number] 17:07:00 Test Item Value Reference Range Interpretation Comments POC-GLUCOSE METER 88 mg/dL 70-110 TESTED AT [place] [address] ([facility]) (test code = [facility] [address] 1538) POCT-GLUCOSE [id number] 12:30:00 Test Item Value Reference Range Interpretation Comments POC-GLUCOSE METER 107 mg/dL 70-110 TESTED AT [place] [address] ([facility]) (test code = [facility] 1538) [address] POCT-GLUCOSE [id number] 07:46:00 Test Item Value Reference Range Interpretation Comments POC-GLUCOSE METER 169 mg/dL 70-110 H TESTED AT [place] [address] ([facility]) (test code = [facility] 1538) [address] CBC W/PLT COUNT & AUTO [id number] 07:42:00 Test Item Value Reference Range Interpretation Comments WHITE BLOOD CELL COUNT ([facility]) 6.5 K/ L 4.0-10.0 (test [...] 0.00-0.20 (test code = 417) 0.00BASI METABOLIC [id number] 06:13:00 Test Item Value Reference Range Interpretation [...] NOT APPLICABLE FOR DIALYSIS PATIEN TS. POCT-GLUCOSE [id number] 22:12:00 Test Item Value Reference Range Interpretation Comments POC-GLUCOSE METER 238 mg/dL 70-110 H TEST[facility] AT [place] [address] [facility] (test code = [facility] 1538) [address] POCT-GLUCOSE [id number] 17:25:00 Test Item Value Reference Range Interpretation Comments POC-GLUCOSE METER 102 mg/dL 70-110 TESTED AT [place] [address] ([facility]) (test code = [facility] 1538) [address] URINALYSIS W/ [id number] 12:50:00 Test Item Value Reference Range Interpretation [...] /HPF SOURCE(BEAKER) (test code = 2795) POCT-GLUCOSE [id number] 12:04:00 Test Item Value Reference Range Interpretation Comments POC-GLUCOSE METER 226 mg/dL 70-110 H TESTED AT [facility] 67 (BEAKER) (test code = ADOLFO [place] 1538) [address] POCT-GLUCOSE [id number] 08:00:00 Test Item Value Reference Range Interpretation Comments POC-GLUCOSE METER 300 mg/dL 70-110 H TESTED AT [place] [address] [facility] (test code = ADOLFO Willett [facility] 1538) [address] BASIC METABOLIC [id number] 06:50:00 Test Item Value Reference Range Interpretation [...] PATIEN TS. CBC W/PLT COUNT & AUTO [id number] 06:01:00 Test Item Value Reference Range Interpretation [...] L 0.00-0.20 (test code = 417) 0.00POCT-GLUCOSE [id number] 21:25:00 Test Item Value Reference Range Interpretation Comments POC-GLUCOSE METER 279 mg/dL 70-110 H TESTED AT [facility] 6720 (BEAKER) (test code = [place] 1538) [address] HEMOGLOBIN [id number] 21:13:00 Test Item Value Reference Range Interpretation Comments HEMOGLOBIN A1C (BEAKER) (test code = 10.7 % 4.3-6.1 H 368) CBC W/PLT COUNT & AUTO [id number] 20:47:00 Test Item Value Reference Range Interpretation [...] L 0.00-0.20 (test code = 417) 0.00POCT-GLUCOSE [id number] 18:31:00 Test Item Value Reference Range Interpretation Comments POC-GLUCOSE METER 205 mg/dL 70-110 H TESTED AT [facility] 6720 ([facility]) (test code = [place]OLFO [place] 1538) [address] URINE [id number] 17:34:00 Test Item Value Reference Range Interpretation Comments [facility] (test code = Time) [id number] 17:34:00 Test Item Value Reference Range Interpretation Comments Time (test code = Time) 12 min [facility] [id number] 17:34:00 Test Item Value Reference Range Interpretation Comments Time (test code = Time) 14 min [facility] [id number] 17:34:00 Test Item Value Reference Range Interpretation Comments Time (test code = Time) 8 min [facility] [id number] 17:34:00 Test Item Value Reference Range Interpretation Comments Time (test code = Time) 5 min [facility] [id number] 17:34:00 Test Item Value Reference Range Interpretation Comments Time (test code = Time) 17 min [facility] [id number] 17:34:00 Test Item Value Reference Range Interpretation Comments Time (test code = Time) 28 min [facility] [id number] 17:34:00 Test Item Value Reference Range Interpretation Comments Time (test code = Time) 20 min [facility] [id number] 17:34:00 Test Item Value Reference Range Interpretation Comments Time (test code = Time) 23 min [facility] [id number] 17:34:00 Test Item Value Reference Range Interpretation Comments Time (test code = Time) 26 min [facility] [id number] 17:34:00 Test Item Value Reference Range Interpretation Comments Time (test code = Time) 33 min [facility] [id number] 17:34:00 Test Item Value Reference Range Interpretation Comments Time (test code = Time) 2 min [facility] [id number] 17:34:00 Test Item Value Reference Range Interpretation Comments Time (test code = Time) 12 min [facility] [id number] 17:34:00 Test Item Value Reference Range Interpretation Comments Time (test code = Time) 14 min [facility] [id number] 17:34:00 Test Item Value Reference Range Interpretation Comments Time (test code = Time) 8 min [facility] [id number] 17:34:00 Test Item Value Reference Range Interpretation Comments Time (test code = Time) 5 min [facility] [id number] 17:34:00 Test Item Value Reference Range Interpretation Comments Time (test code = Time) 17 min [facility] [id number] 17:34:00 Test Item Value Reference Range Interpretation Comments Time (test code = Time) 28 min [facility] [id number] 17:34:00 Test Item Value Reference Range Interpretation Comments Time (test code = Time) 20 min [facility] [id number] 17:34:00 Test Item Value Reference Range Interpretation Comments Time (test code = Time) 23 min [facility] [id number] 17:34:00 Test Item Value Reference Range Interpretation Comments Time (test code = Time) 26 min [facility] [id number] 17:34:00 Test Item Value Reference Range Interpretation Comments Time (test code = Time) 33 min [facility] [id number] 17:34:00 Test Item Value Reference Range Interpretation Comments Time (test code = Time) 2 min [facility] [id number] 17:34:00 Test Item Value Reference Range Interpretation Comments Time (test code = Time) 12 min [facility] [id number] 17:34:00 Test Item Value Reference Range Interpretation Comments Time (test code = Time) 14 min [facility] [id number] 17:34:00 Test Item Value Reference Range Interpretation Comments Time (test code = Time) 8 min [facility] [id number] 17:34:00 Test Item Value Reference Range Interpretation Comments Time (test code = Time) 5 min [facility] [id number] 17:34:00 Test Item Value Reference Range Interpretation Comments Time (test code = Time) 17 min [facility] [id number] 17:34:00 Test Item Value Reference Range Interpretation Comments Time (test code = Time) 28 min [facility] [id number] 17:34:00 Test Item Value Reference Range Interpretation Comments Time (test code = Time) 20 min [facility] [id number] 17:34:00 Test Item Value Reference Range Interpretation Comments Time (test code = Time) 23 min [facility] [id number] 17:34:00 Test Item Value Reference Range Interpretation Comments Time (test code = Time) 26 min [facility] [id number] 17:34:00 Test Item Value Reference Range Interpretation Comments Time (test code = Time) 33 min [facility]
[2022-08-16 21:31] LABS: Absolute Lymphocytes (CBC) 1.6 K/uL (0.7-4.9); Hematocrit 40.4 % (39.6-49.0); Lymphocytes % 18.8 % (15.3-44.8); MCV 86.6 fL (80-100); Protime INR 1.01; RBC Red Blood Cell Count 4.67 M/uL (4.33-5.43)
[2022-08-16 21:45] LABS: Potassium 3.5 mEq/L (3.5-5.1); Troponin High Sensitivity 23.5 pg/mL (<58.9)
--- NOTE | 2022-08-16 22:03 | RAD REPORT ---
EXAM DESCRIPTION: RAD - Chest Single View - 08/16/2022 9:51 pm CLINICAL HISTORY: CONGESTION COMPARISON: Chest Pa And Lat (2 Views) dated 07/16/2022; Chest Single View dated 06/09/2022; Chest Pa A nd Lat (2 Views) dated 06/04/2022; Chest Single View dated 11/21/2021 FINDINGS: Lines: None. Lungs: No evidence of edema or pneumonia. Low lung volumes. Pleural: No significant pleural effusions or pneumothorax. Cardiac: The heart size is within normal limits. Mediastinum: Within normal limits. Bones: No acute fractures. Other: None IMPRESSION: No acute cardiopulmonary disease.
[2022-08-16] MEDS ORDERED: ACETAMINOPHEN 500 MG TAB ONE (22:42)
--- NOTE | 2022-08-16 22:44 | ER ---
Nurse's Notes [facility] Name: Ramirez Chaudhari Age: 57 yrs Sex: Male : 1965 Arrival Date: 08/16/2022 Time: 20:55 Bed 4 Private MD: Diagnosis: Chest pain on breathing Presentation: 08/16 21:16 Chief complaint: Spouse and/or significant other states: PT HAS BEEN GENERALLY WEAK, rv COUGHING FOR FEW DAYS, COMPLAINED OF CP STARTED AT 1500 TODAY. PARAPLEGIC FROM PREVIOUS STROKE. Coronavirus screen: Vaccine status: Patient reports receiving the 2nd dose of the covid vaccine. Date 2020. Ebola Screen: Patient negative for fever greater than or equal to 101.5 degrees Fahrenheit, and additional compatible Ebola Virus Disease symptoms Patient denies exposure to infectious person. Patient denies travel to an Ebola-affected area in the 21 days before illness onset. Initial Sepsis Screen: Does the patient meet any 2 criteria? No. Patient's initial sepsis screen is negative. Does the patient have a suspected source of infection? No. Patient's initial sepsis screen is negative. Risk Assessment: Do you want to hurt yourself or someone else? Patient reports no desire to harm self or others. Onset of symptoms was August 16, 2022 at 15:00. 21:16 Method Of Arrival: Wheelchair rv 21:16 Acuity: NOHEMI 2 rv Triage Assessment: 21:19 General: Appears uncomfortable, Behavior is cooperative. Pain: Complains of pain in rv chest. EENT: No signs and/or symptoms were reported regarding the EENT system. Neuro: Level of Consciousness is awake, alert, obeys commands, Oriented to person, place, time, situation. Cardiovascular: Capillary refill < 3 seconds Rhythm is sinus rhythm. Cardiovascular: Reports chest pain, Chest pain. Respiratory: Airway is patent. GI: No signs and/or symptoms were reported involving the gastrointestinal system. GI: Abdomen is round non-distended, obese. : Valera in place. Historical: - Allergies: 21:19 Ibuprofen; rv 21:19 metformin; rv - PMHx: 21:19 ADD/ADHD; Diabetes - IDDM; GERD; Gout; High Cholesterol; Hydrocele Left Testicle; rv Hypertension; Hypothyroidism; Migraines; Paraplegia; Renal Disease; Spinal Stroke; - Immunization history:: Adult Immunizations up to date. - Social history:: Smoking status: Patient denies any tobacco usage or history of. Screenin:21 [facility] ED Fall Risk Assessment (Adult) History of falling in the last 3 months, rv including since admission No falls in past 3 months (0 pts). Abuse screen: Denies threats or abuse. Denies injuries from another. Nutritional screening: No deficits noted. Tuberculosis screening: No symptoms or risk factors identified. Assessment: 21:21 Pain: Pain does not radiate. Pain began suddenly. rv 23:24 Reassessment: Patient appears in no apparent distress at this time. Patient and/or jb4 family updated on plan of care and expected duration. Pain level reassessed. Patient is alert, oriented x 3, equal unlabored respirations, skin warm/dry/pink. Vital Signs: 21:16 BP 177 / 110; Pulse 65; Resp 18; Temp 98(O); Pulse Ox 96% on R/A; Weight 114 kg; Height rv 5 ft. 7 in. ; Pain 0/10; 21:48 BP 178 / 113; Pulse 74; Resp 17; Pulse Ox 96% on R/A; rv 23:24 BP 182 / 116; Pulse 65; Resp 16; Pulse Ox 95% on R/A; jb4 21:16 Body Mass Index 39.36 (114.00 kg, 170.18 cm) rv 21:16 Pain Scale: Adult rv ED Course: 20:58 Patient arrived in ED. bp1 21:10 Jesus Gutierrez, NORBERTO is Primary Nurse. jb4 21:11 Charles Nichols MD is Attending Physician. bs3 21:19 Triage completed. rv 21:20 Arm band placed on right wrist. rv 21:20 Inserted saline lock: 20 gauge in right antecubital area, using aseptic technique. rv Blood collected. Patient maintains SpO2 saturation greater than 95% on room air. 21:21 Patient has correct armband on for positive identification. Placed in gown. Bed in low rv position. Call light in reach. Side rails up X 1. Adult w/ patient. Client placed on continuous cardiac and pulse oximetry monitoring. NIBP monitoring applied. color television console monitor on. 21:52 XRAY Chest (1 view) In Process Unspecified. EDMS 22:44 Tunde Zheng MD is Hospitalizing Provider. bs3 22:47 Shoulder Right (2 View) XRAY In Process Unspecified. EDMS 23:28 No provider procedures requiring assistance completed. Patient admitted, IV remains in rv place. Administered Medications: :44 Drug: Acetaminophen PO 1000 mg Route: PO; rv 23:28 Follow up: Response: No adverse reaction rv Medication: 21:21 VIS not applicable for this client. rv Outcome: :44 Decision to Hospitalize by Provider. bs3 23:28 Admitted to Med/surg accompanied by tech, via stretcher, room 207, with chart, Report rv called to RANI THORNTON 23:28 Condition: good 23:28 Instructed on the need for admit. 08/17 00:08 Patient left the ED. rv Signatures: Dispatcher [employer] EDMS Jesus Gutierrez, RN RN jb4 Bandar Martinez RN RN Duyen Barriga Brandon, MD MD bs3
--- NOTE | 2022-08-16 22:45 | EDPHYS ---
Physician Documentation [facility] Name: Ramirez Chaudhari Age: 57 yrs Sex: Male : 1965 Arrival Date: 08/16/2022 Time: 20:55 Bed 4 Private MD: ED Physician Charles Nichols HPI: 08/16 22:38 This 57 yrs old Male presents to ER via Wheelchair with complaints of Chest bs3 Pain > 30 y/o, Shoulder Pain, Arm Pain. 22:38 57-year-old male history of diabetes insulin-dependent CHF hypertension cardiac disease bs3 presents with chest pain and approximately 3 to 4 PM he is a poor historian and is not sure how long it lasted in addition he notes right shoulder pain he is a paraplegic and uses his arms for transfers his pain is worse with movement better with rest he has no associated fevers or redness or swelling of the shoulder he did not try anything for it in addition per his family at bedside they think that he is a little bit more weak than usual. Historical: - Allergies: 21:19 Ibuprofen; rv 21:19 metformin; rv - PMHx: 21:19 ADD/ADHD; Diabetes - IDDM; GERD; Gout; High Cholesterol; Hydrocele Left Testicle; rv Hypertension; Hypothyroidism; Migraines; Paraplegia; Renal Disease; Spinal Stroke; - Immunization history:: Adult Immunizations up to date. - Social history:: Smoking status: Patient denies any tobacco usage or history of. ROS: 22:38 Constitutional: Negative for fever, chills bs3 22:38 All other systems are negative. Exam: 22:38 Constitutional: Patient appears older than stated age appears chronically ill bs3 Head/Face: Normocephalic, atraumatic. Eyes: Pupils equal round and reactive to light, extra-ocular motions intact. Lids and lashes normal. ENT: mmm, no posterior phyarngeal erythema Neck: Trachea midline, no thyromegaly, no neck stiffness Chest/axilla: Normal chest wall appearance and motion. Nontender with no deformity. No lesions are appreciated. Cardiovascular: Regular rate and rhythm with a normal S1 and S2. symmetric pulses in upper extremities Respiratory: Lungs have equal breath sounds bilaterally, clear to auscultation, no respiratory distress Abdomen/GI: Soft, non-tender, no rebound or guarding Vital Signs: 21:16 BP 177 / 110; Pulse 65; Resp 18; Temp 98(O); Pulse Ox 96% on R/A; Weight 114 kg; Height rv 5 ft. 7 in. ; Pain 0/10; 21:48 BP 178 / 113; Pulse 74; Resp 17; Pulse Ox 96% on R/A; rv 23:24 BP 182 / 116; Pulse 65; Resp 16; Pulse Ox 95% on R/A; jb4 21:16 Body Mass Index 39.36 (114.00 kg, 170.18 cm) rv 21:16 Pain Scale: Adult rv MDM: 21:08 Patient medically screened. bs3 22:38 Data reviewed: vital signs, nurses notes. ED course: EKG is normal sinus rhythm at bs3 right bundle branch block no ST elevations or depressions he is not hypoxic tachypneic or tachycardic urine he is on Eliquis developing as a PE will check labs will reassess Work-up nondiagnostic unclear etiology for patient's weakness and symptoms will admit given his heart score 5. 08/16 21:15 Order name: Basic Metabolic Panel; Complete Time: 21:46 3 06/10 21:15 Order name: CBC with Diff; Complete Time: 21:44 bs3 /10 21:15 Order name: NT PRO-BNP; Complete Time: 21:46 bs3 06/10 21:15 Order name: PT-INR; Complete Time: 21:44 bs3 06/10 21:15 Order name: Troponin HS; Complete Time: 21:46 3 06/10 21:15 Order name: XRAY Chest (1 view); Complete Time: 22:04 3 /10 22:33 Order name: Shoulder Right (2 View) XRAY bs3 06/10 21:15 Order name: EKG; Complete Time: 21:16 3 /10 21:15 Order name: Cardiac monitoring; Complete Time: 21:21 3 06/10 21:15 Order name: EKG - Nurse/Tech; Complete Time: 21:21 3 06/10 21:15 Order name: IV Saline Lock; Complete Time: 21:21 3 0610 21:15 Order name: Labs collected and sent; Complete Time: 21:21 3 10 21:15 Order name: O2 Per Protocol; Complete Time: 21:21 bs3 08/16 21:15 Order name: O2 Sat Monitoring; Complete Time: 21:21 bs3 Administered Medications: 22:44 Drug: Acetaminophen PO 1000 mg Route: PO; rv 23:28 Follow up: Response: No adverse reaction rv Disposition Summary: 08/16/22 22:44 Hospitalization Ordered Hospitalization Status: Observation bs3 Provider: Tunde Zheng bs3 Location: Telemetry/MedSurg (observation) bs3 Condition: Stable bs3 Problem: new bs3 Symptoms: have improved bs3 Bed/Room Type: Standard bs3 Room Assignment: 207(08/16/22 23:23) cg Diagnosis - Chest pain on breathing bs3 Forms: - Medication Reconciliation Form bs3 - SBAR form bs3 Signatures: Dispatcher [employer] James Real, [employer]-Cla1 Luci Linn RN RN cg Bandar Martinez RN RN rv Charles Nichols MD MD bs3 Corrections: (The following items were deleted from the chart) 23:23 22:44 bs3 cg
--- NOTE | 2022-08-16 23:24 | P.HP ---
Certification for Inpatient Patient admitted to: Observation With expected LOS: <2 Midnights Patient will require the following post-hospital care: None Practitioner: I am a practitioner with admitting privileges, knowledge of patient current condition, hospital course, and medical plan of care. Services: Services provided to patient in accordance with Admission requirements found in Title 42 Section 412.3 of the Code of Federal Regulations Patient History Date of Service: 08/16/22 Reason for admission: Chest pain History of Present Illness: 57-year-old male with history of atrial fibrillation on chronic anticoagulation, chronic diastolic congestive heart failure, insulin-dependent diabetes, history of spinal stroke with paraplegia, chronic foot wounds, hypertension, hyperlipidemia, hypothyroidism, gout, CKD 3 presents emergency department chief complaint of right shoulder pain, left chest pain. He reports that while sitting in the car he developed first right shoulder pain worse with movement or range of motion followed by a sharp/stabbing left chest pain which lasted for approximately 1 hour with associated shortness of breath. He was evaluated in the emergency department his initial high-sensitivity troponin was 23.5 BNP 557 his creatinine is 1.92, which is similar to his recent baseline creatinine. Chest x-ray was negative for acute findings. He will be admitted under observation for ACS rule out. Allergies metformin Adverse Reaction (Severe, Verified 01/16/21 00:08) kidney damage ibuprofen Adverse Reaction (Verified 01/16/21 00:08) seecom stitches Adverse Reaction (Mild, Uncoded 02/06/20 12:27) Rash Home Medications: Insulin Detemir [Levemir Flextouch] 40 units SQ BID 01/15/21 Levothyroxine Sodium [Euthyrox] 1 tab PO DAILY 01/15/21 Omeprazole 40 mg PO DAILY 05/31/21 Apixaban [Eliquis *] 2.5 mg PO BID #60 tablet 08/07/21 Allopurinol 100 mg PO DAILY 09/24/21 Sotalol HCl [Betapace*] 80 mg PO BID 30 Days #60 tab 09/28/21 Budesonide/Glycopyr/Formoterol [Breztri Aerosphere Inhaler] 5.9 gm IH BID 11/22/21 Colchicine 0.6 mg PO BID* 11/22/21 Cyanocobalamin [Vitamin B-12*] 1,000 mcg PO 1X 11/22/21 Insulin Aspart Prot/Insuln Asp [Novolog Mix 70-30 Flexpen] 30 unit SQ TID 11/22/21 Nitrofurantoin Monohyd/M-Cryst [Macrobid 100 mg Capsule] 100 mg PO DAILY 06/09/22 Furosemide [Lasix] 60 mg PO BIDL #180 tab 06/11/22 Spironolactone [Aldactone*] 25 mg PO DAILY #30 tab 06/11/22 - Past Medical/Surgical History Diabetic: Yes -: Diabetes mellitus type 2 -: HTN -: Gout -: Hyperlipidemia -: Hypothyroidism -: 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 fib on chronic anticoagulation -: Crohn's Disease (non active) -: spinal surgery -: 2 hydroceles -: Fistula repair -: Incomplete spinal stroke -: right hand Psychosocial/ Personal History: Patient is disabled, lives at home with his . - Family History Mother -: Hypertension, Diabetes, Stroke Notes: with gangrene leg - Social History Alcohol use: No CD- Drugs: No Caffeine use: No Place of Residence: Home Review of Systems 10-point ROS is otherwise unremarkable Cardiovascular: Chest Pain Musculoskeletal: Shoulder Pain Physical Examination - Physical Exam General: Alert, In no apparent distress, Oriented x3 HEENT: Atraumatic, PERRLA, Mucous membr. moist/pink, EOMI, Sclerae nonicteric Neck: Supple, 2+ carotid pulse no bruit, No LAD, Without JVD or thyroid abnormality Respiratory: Clear to auscultation bilaterally, Normal air movement Cardiovascular: Regular rate/rhythm, Normal S1 S2 Capillary refill: <2 Seconds Gastrointestinal: Normal bowel sounds, No tenderness Musculoskeletal: Other (paraplegia) Neurological: Normal speech, Normal strength at 5/5 x4 extr, Normal tone, Normal affect - Studies Laboratory Data (last 24 hrs) 08/16/22 21:15: PT 11.1, INR 1.01 08/16/22 21:15: WBC 8.40, Hgb 13.5 L, Hct 40.4, Plt Count 150 L 08/16/22 21:15: Sodium 136, Potassium 3.5, BUN 33 H, Creatinine 1.92 H, Glucose 190 H Assessment and Plan - Plan Assessment: Chest pain rule out ACShistory CAD Right shoulder pain Chronic diastolic congestive heart failure Atrial fibrillation on chronic anticoagulation therapy Diabetes mellitus type 2insulin-dependent CKD 3 Hypertension Hypothyroidism Gout H/O spinal stroke with paraplegia Chronic lower extremity wounds Plan: Chest pain rule out ACShistory CAD Trend troponins, cardiology consult, continue home medications. Last heart catheterization 2018 with no critical stenosis. Right shoulder pain X-ray pending, pain with range of motion, does have history of gout. As needed pain medications, consider orthopedic consult if pain persist. Chronic diastolic congestive heart failure Atrial fibrillation on chronic anticoagulation therapy Stable, continue p.o. Lasix, sotalol, Eliquis. Diabetes mellitus type 2insulin-dependent Continue reduced dose long-acting insulin, sliding scale insulin. CKD 3 At baseline, monitor labs, sees Dr. Aung rodriguez for nephrology. Hypertension Hypothyroidism Gout H/O spinal stroke with paraplegia Chronic lower extremity wounds Continue home medications, wound healing consult in place. DVT PPX:Continue eliquis Code status:Full code Discharge Plan: Home Plan to discharge in: 24 Hours - Advance Directives Does patient have a Living Will: No Does patient have a Durable POA for Healthcare: No - Code Status/Comfort Care Code Status Assessed: Yes (Full code) Critical Care: No Time Spent Managing Pts Care (In Minutes): 55
[2022-08-17] MEDS ORDERED: ONDANSETRON 4 MG/2 ML VIAL IV PRN (01:23)
[2022-08-17] MEDS: MORPHINE 2 MG/ML SYR IV PRN ×4 (01:45→22:41)
[2022-08-17 02:22] VITALS: O2SAT 96; BMI 37.8
[2022-08-17 03:15] LABS: Absolute Lymphocytes (CBC) 1.8 K/uL (0.7-4.9); Hematocrit 38.1 % (39.6-49.0); Lymphocytes % 21.2 % (15.3-44.8); MCV 86.4 fL (80-100); MPV 10.1 fL (7.6-11.3); RBC Red Blood Cell Count 4.41 M/uL (4.33-5.43)
[2022-08-17 03:40] LABS: Potassium 3.4 mEq/L (3.5-5.1); Thyroid Stimulating Hormone 2.84 uIU/mL (0.358-3.740); Troponin High Sensitivity 22.3 pg/mL (<58.9)
--- NOTE | 2022-08-17 06:59 | P.PN ---
Date of Service: 08/17/22 Subjective: no chest pain today right shoulder pain slightly improved today but still very tender/sore BP elevated; likely reactive due to pain no new / worsening problems ROS: 10 point ROS as noted above, otherwise negative Physical Exam: GEN: Alert, oriented, NAD at rest, uncomfortable with movement of R shoulder HEENT: Normal conjunctiva, sclera anicteric CV: Regular rate and rhythm, no edema Pulm: Nonlabored respirations on room air ABD: Soft, nontender, nondistended MSK: paraplegia, R shoulder tenderness, pain with passive and active ROM, most tender at AC joint Integumentary: Chronic b/l lower extremity wounds with dressing Neuro: Normal speech, normal affect Chronic Valera in place vitals reviewed Problem List: Chest pain Right shoulder pain Chronic diastolic congestive heart failure Atrial fibrillation on chronic anticoagulation therapy IDDM2 CKD 3 Hypertension Hypothyroidism Gout H/O spinal stroke with paraplegia Chronic lower extremity wounds Chest pain Last heart catheterization 2018 with no critical stenosis. CXR (08/16): No acute cardiopulmonary disease troponins, negative x3; monitor on telemetry cardiology consulted - no further evaluation warranted at this time continue home medications; BP control Right shoulder pain arthritis X-ray shoulder(08/16): AC joint narrowing pain with range of motion reports day before, he increased amount of exercising and was using his arm a lot more than usual most tender at AC joint area consistent with flare up of arthritis, inflammation diclofenac cream, avoid oral NSAIDs does take colchicine chronically, resume less likely gout flare, but monitor for further signs tylenol #3 for acute pain control f/u with PCP / or specialist (ortho, sports med, pain) for consideration of steroid injection if doesn't improve with more conservative treatment Chronic diastolic congestive heart failure Atrial fibrillation on chronic anticoagulation therapy Stable continue home Lasix, sotalol, Eliquis IDDM2 Continue long-acting insulin, 70/30, sliding scale insulin CKD 3 At baseline, monitor labs; sees Dr. Horan in office Chronic Valera in place Hypertension Hypothyroidism Gout H/O spinal stroke with paraplegia Chronic lower extremity wounds Continue home medications, wound healing consult in place Dr. Dupree consulted to eval patient's wounds, reports LLE with increased foul odor, no purulent drainage, no surrounding erythema VTE: Eliquis Code: Full Dispo: Home ~24 hrs
[2022-08-17] MEDS: LEVOTHYROXINE SOD 0.05 MG TABLET PO SCH (08:32)
[2022-08-17] MEDS: FUROSEMIDE 40 MG TABLET PO SCH ×2 (08:33→16:41)
[2022-08-17] MEDS: NITROFURAN MACRO 100 MG CAP PO SCH (08:33)
[2022-08-17] MEDS: SOTALOL HCL 80 MG TAB PO SCH ×2 (08:33→20:31)
[2022-08-17] MEDS: allopurinoL 100 MG TAB PO SCH (08:33)
[2022-08-17] MEDS: APIXABAN 2.5 MG TABLET PO SCH ×2 (08:33→20:30)
[2022-08-17] MEDS: INSULIN GLARGINE 100 UNIT/ML SQ SCH ×2 (08:34→20:31)
[2022-08-17] MEDS: INSULIN -REGULAR HUMAN 50 UNIT/0.5 ML ML SQ SCH ×4 (08:34→20:32)
--- NOTE | 2022-08-17 10:17 | CON ---
Date of Consultation: 08/17/2022 Reason For Consultation: Chest pain. History Of Present Illness: Mr. Chaudhari is 57 years old unfortunate male, has had multiple medical pr oblems. He normally sees Dr. Soto for cardiology. He sees Dr. Horan from a Nephrology standpo int. 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 He has a history of chronic atrial fibrillation for which he takes Eliquis. He has a history of chronic renal disease, COPD, gastroesophageal reflux disease, gout, hypertension, dyslipidemia, hypothyroidism, congestive heart failure, diabetes. He has had a s kimberly stroke and he is paraplegic from that. He comes in with right-sided chest pain radiating to th e back and right shoulder that is stabbing, sharp. Note that he had a normal heart catheterization i 2018 by me. He had an echocardiogram in June, which was normal. The patient is pain free. His M I has ruled out. Past Medical History: As stated above. Allergies: INCLUDE MOTRIN AND METFORMIN. Review of Systems: Negative. Social History: Negative. Family History: Negative. Medications: Include inhalers, Lasix, Eliquis, insulin, allopurinol, Kerendia, sotalol, colchicine, and Prilosec. Physical Examination: General: Mr. Chaudhari was alert and oriented x3. Resting comfortably. Vital Signs: Stable, afebrile. HEENT: Negative. Neck: Supple with no bruit. Chest: Clear. Cardiac: Normal. Abdomen: Benign. Extremities: Revealed no clubbing, cyanosis, or edema. Diagnostic Data: EKG was normal. BNP was 557. Troponin is negative. Creatinine is 1.88. Impression And Plan: 1.Chronic atrial fibrillation, on Eliquis and sotalol. 2.Chronic renal disease, follows up with Dr. Horan. 3.Gastroesophageal reflux disease. 4.Chronic obstructive pulmonary disease. 5.Chest pain, atypical. Normal catheterization and normal echo in the past. No need for more phuong p. 6.Chronic diastolic congestive heart failure, stable. 7.Gout. 8.Hypothyroidism. 9.Hypertension, fairly well controlled. 10.Dyslipidemia. 11.Diabetes. 12.Spinal cerebrovascular accident with paraplegia. Again, the patient has had a normal echo and no rmal catheterization in the past. I do not think this is cardiac in nature. I do not recommend any further cardiac workup. He can follow up with Dr. Soto soon, but he can go home whenever it is ok ay with Dr. Zheng. STANLEY/SNOW Voice ID: [id number] Report ID: [id number]
[2022-08-17] MEDS: COLCHICINE 0.6 MG TAB PO SCH ×2 (11:19→20:31)
[2022-08-17] MEDS: CODEINE 30MG/APAP 300MG TAB PO PRN (20:30)
[2022-08-17] MEDS: INSULN ASP SQ SCH (20:34)
[2022-08-17] MEDS: INSULIN ASPART PROT SQ SCH (20:34)
[2022-08-18 03:52] LABS: Magnesium 1.7 mg/dL (1.6-2.4); Potassium 3.5 mEq/L (3.5-5.1)
[2022-08-18 05:04] VITALS: BP 157/93; TEMP 97.8
--- NOTE | 2022-08-18 06:59 | P.PN ---
Date of Service: 08/18/22 Subjective: feeling slightly better today, able to sleep overnight shoulder pain continues; slowly improving foul odor from left chronic wound; improving afebrile ROS: 10 point ROS as noted above, otherwise negative Physical Exam: GEN: Alert, oriented, NAD at rest, uncomfortable with movement of R shoulder HEENT: Normal conjunctiva, sclera anicteric CV: Regular rate and rhythm, no edema Pulm: Nonlabored respirations on room air ABD: Soft, nontender, nondistended MSK: paraplegia, R shoulder tenderness, pain with passive and active ROM, most tender at AC joint Integumentary: Chronic b/l lower extremity wounds with dressing Neuro: Normal speech, normal affect Chronic Valera in place vitals reviewed Problem List: Chest pain Right shoulder pain Chronic diastolic congestive heart failure Atrial fibrillation on chronic anticoagulation therapy IDDM2 CKD 3 Hypertension Hypothyroidism Gout H/O spinal stroke with paraplegia Chronic lower extremity wounds Chest pain Last heart catheterization 2018 with no critical stenosis. CXR (08/16): No acute cardiopulmonary disease troponins, negative x3; monitor on telemetry cardiology consulted - no further evaluation warranted at this time continue home medications; BP control Right shoulder pain arthritis X-ray shoulder(08/16): AC joint narrowing pain with range of motion reports day before, he increased amount of exercising and was using his arm a lot more than usual most tender at AC joint area consistent with flare up of arthritis, inflammation diclofenac cream, avoid oral NSAIDs does take colchicine chronically, resume less likely gout flare, but monitor for further signs tylenol #3 for acute pain control f/u with PCP / or specialist (ortho, sports med, pain) for consideration of steroid injection if doesn't improve with more conservative treatment Chronic diastolic congestive heart failure Atrial fibrillation on chronic anticoagulation therapy Stable continue home Lasix, sotalol, Eliquis IDDM2 Continue long-acting insulin, 70/30, sliding scale insulin CKD 3 At baseline, monitor labs; sees Dr. Horan in office renal function slightly worse 08/[address] Hypertension Hypothyroidism Gout H/O spinal stroke with paraplegia Chronic lower extremity wounds Continue home medications Dr. Dupree consulted to eval patient's wounds, reports LLE with increased foul odor, no purulent drainage, no surrounding erythema wound cultures: Gram pos cocci, +GNR pictures taken 08/17 in EMR afebrile, no leukocytosis VTE: Eliquis Code: Full Dispo: Home ~24 hrs
--- NOTE | 2022-08-18 08:20 | P.DS ---
Admission Date: 08/16/22 Discharge Date: 08/18/22 Disposition: ROUTINE DISCHARGE Discharge Condition: GOOD Reason for Admission: Chest pain Consultations: Cardiology - Dr. Tena Podiatry - Dr. Dupree Brief History of Present Illness: 57yo F, PMH: atrial fibrillation on chronic anticoagulation, chronic diastolic congestive heart failure, insulin-dependent diabetes, history of spinal stroke with paraplegia, chronic foot wounds, hypertension, hyperlipidemia, hypothyroidism, gout, CKD 3 Patient presents emergency department chief complaint of right shoulder pain, left chest pain. He reports that while sitting in the car he developed first right shoulder pain worse with movement or range of motion followed by a sharp/stabbing left chest pain which lasted for approximately 1 hour with associated shortness of breath. He was evaluated in the emergency department his initial high-sensitivity troponin was 23.5 BNP 557 his creatinine is 1.92, which is similar to his recent baseline creatinine. Chest x-ray was negative for acute findings. Hospital Course: Problem List: Chest pain Right shoulder pain Chronic diastolic congestive heart failure Atrial fibrillation on chronic anticoagulation therapy IDDM2 CKD 3 Hypertension Hypothyroidism Gout H/O spinal stroke with paraplegia Chronic lower extremity wounds Patient presented with right shoulder pain and substernal chest pain. Troponins were negative x3. Echocardiogram was normal. X-ray shoulder indicated AC joint narrowing. Cardiology was consulted and recommended no further evaluation. Did not feel this was cardiac in etiology. Can follow up in office. Patient reported increased exercise/activity which triggered his right shoulder pain. This is consistent with acute on chronic arthritic pain with inflammation. Recommended rest, ice, and prescribed a short course of pain medication. He has CKD and reviewed no NSAID usage which he is aware of. Recommended to follow up with PCP if no further significant improvement consider steroid injection vs. sports med / ortho consult. Continue home meds as previously prescribed. Patient also noted to have necrotic tissue on chronic left wound with foul odor. No signs of infection. Dr. Dupree, who has been previously been seen for wound care, was consulted. Patient had bedside debridement and to follow up with wound care in office as scheduled. No indication for antibiotics at this time. His wounds were cultured on admission, which is unreliable and is expected to grow bacteria but this is not indicative of true infection. New prescriptions: Tylenol #3 Continue home meds as previously prescribed Follow up: PCP 3-[address] Slate / wound clinic as scheduled Physical Exam: GEN: Alert, oriented, NAD at rest HEENT: Normal conjunctiva, sclera anicteric CV: Regular rate and rhythm, no edema Pulm: Nonlabored respirations on room air ABD: Soft, nontender, nondistended MSK: paraplegia, mild R shoulder tenderness, pain with passive and active ROM Integumentary: Chronic b/l lower extremity wounds with dressing Neuro: Normal speech, normal affect Chronic Valera in place Vital Signs/Physical Exam: Temp Pulse Resp BP Pulse Ox 97.8 F 62 18 157/93 H 96 08/18/22 04:00 08/18/22 04:00 08/18/22 04:00 08/18/22 04:00 08/18/22 04:00 Laboratory Data at Discharge: WBC 8.60 thou/uL (4.3-10.9) 08/17/22 02:54 Hgb 12.8 g/dL (13.6-17.9) L 08/17/22 02:54 Hct 38.1 % (39.6-49.0) L 08/17/22 02:54 Plt Count 138 thou/uL (152-406) L 08/17/22 02:54 PT 11.1 SECONDS (9.5-12.5) 08/16/22 21:15 INR 1.01 08/16/22 21:15 Sodium 136 mEq/L (136-145) 08/18/22 02:52 Potassium 3.5 mEq/L (3.5-5.1) 08/18/22 02:52 BUN 35 mg/dL (7-18) H 08/18/22 02:52 Creatinine 2.18 mg/dL (0.70-1.30) H 08/18/22 02:52 Glucose 198 mg/dL (74-106) H 08/18/22 02:52 Magnesium 1.7 mg/dL (1.6-2.4) 08/18/22 02:52 Home Medications: Insulin Detemir [Levemir Flextouch] 40 units SQ BID 01/15/21 Levothyroxine Sodium [Euthyrox] 1 tab PO DAILY 01/15/21 Omeprazole 40 mg PO DAILY 05/31/21 Apixaban [Eliquis *] 2.5 mg PO BID #60 tablet 08/07/21 Allopurinol 100 mg PO DAILY 09/24/21 Sotalol HCl [Betapace*] 80 mg PO BID 30 Days #60 tab 09/28/21 Colchicine 0.6 mg PO BID* 11/22/21 Insulin Aspart Prot/Insuln Asp [Novolog Mix 70-30 Flexpen] 30 unit SQ TID 11/22/21 Nitrofurantoin Monohyd/M-Cryst [Macrobid 100 mg Capsule] 100 mg PO DAILY 06/09/22 Albuterol Inhaler [Ventolin Inhaler*] 2 puff IH BID PRN 08/17/22 Finerenone [Kerendia] 10 mg PO DAILY 08/17/22 Furosemide [Lasix*] 40 mg PO BIDL 08/17/22 oxyBUTYnin chloride [Oxybutynin Chloride] 5 mg PO DAILY 08/17/22 Codeine/APAP [Tylenol #3*] 1 tab PO Q8H PRN #10 tab 08/18/22 New Medications: Codeine/APAP [Tylenol #3*] 1 tab PO Q8H PRN #10 tab PRN Reason: Pain Scale 5-7 (Moderate) Physician Discharge Instructions: Patient presented with right shoulder pain and substernal chest pain. Troponins were negative x3. Echocardiogram was normal. X-ray shoulder indicated AC joint narrowing. Cardiology was consulted and recommended no further evaluation. Did not feel this was cardiac in etiology. Can follow up in office. Patient reported increased exercise/activity which triggered his right shoulder pain. This is consistent with acute on chronic arthritic pain with inflammation. Recommended rest, ice, and prescribed a short course of pain medication. He has CKD and reviewed no NSAID usage which he is aware of. Recommended to follow up with PCP if no further significant improvement consider steroid injection vs. sports med / ortho consult. Continue home meds as previously prescribed. Patient also noted to have necrotic tissue on chronic left wound with foul odor. No signs of infection. Dr. Dupree, who has been previously been seen for wound care, was consulted. Patient had bedside debridement and to follow up with wound care in office as scheduled. No indication for antibiotics at this time. His wounds were cultured on admission, which is unreliable and is expected to grow bacteria but this is not indicative of true infection. New prescriptions: Tylenol #3 Continue home meds as previously prescribed Follow up: PCP 3-[address] Dupree / wound clinic as scheduled Followup: Micha Tena MD [ACTIVE - CAN ADMIT] - (Call to schedule appointment) Lavonne Torres FNP [Primary Care Provider] - (Call to schedule appointment ) Time spent managing pt's care (in minutes): 45
--- NOTE | 2022-08-18 08:28 | P.CNS ---
Date of Consult: 08/18/22 Reason for Consult: Left leg wound Chief Complaint: Chest pain History of Present Illness: Wound left lateral leg has been treated at home with [facility] for 2 weeks. has noted an odor to the wound Allergies metformin Adverse Reaction (Severe, Verified 08/17/22 02:22) kidney damage ibuprofen Adverse Reaction (Verified 08/17/22 02:22) seecom stitches Adverse Reaction (Mild, Uncoded 02/06/20 12:27) Rash Home Medications: Insulin Detemir [Levemir Flextouch] 40 units SQ BID 01/15/21 Levothyroxine Sodium [Euthyrox] 1 tab PO DAILY 01/15/21 Omeprazole 40 mg PO DAILY 05/31/21 Apixaban [Eliquis *] 2.5 mg PO BID #60 tablet 08/07/21 Allopurinol 100 mg PO DAILY 09/24/21 Sotalol HCl [Betapace*] 80 mg PO BID 30 Days #60 tab 09/28/21 Colchicine 0.6 mg PO BID* 11/22/21 Insulin Aspart Prot/Insuln Asp [Novolog Mix 70-30 Flexpen] 30 unit SQ TID 11/22/21 Nitrofurantoin Monohyd/M-Cryst [Macrobid 100 mg Capsule] 100 mg PO DAILY 06/09/22 Albuterol Inhaler [Ventolin Inhaler*] 2 puff IH BID PRN 08/17/22 Finerenone [Kerendia] 10 mg PO DAILY 08/17/22 Furosemide [Lasix*] 40 mg PO BIDL 08/17/22 oxyBUTYnin chloride [Oxybutynin Chloride] 5 mg PO DAILY 08/17/22 Codeine/APAP [Tylenol #3*] 1 tab PO Q8H PRN #10 tab 08/18/22 - Past Medical/Surgical History Diabetic: Yes -: Diabetes mellitus type 2 -: HTN -: Gout -: Hyperlipidemia -: Hypothyroidism -: 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 fib on chronic anticoagulation -: Crohn's Disease (non active) -: spinal surgery -: 2 hydroceles -: Fistula repair -: Incomplete spinal stroke -: right hand Psychosocial/ Personal History: Patient is disabled, lives at home with his . - Family History Mother Medical History: Hypertension, Diabetes, Stroke Notes: with gangrene leg - Social History Smoking Status: Unknown if ever smoked Alcohol use: No CD- Drugs: No Caffeine use: Yes Place of Residence: Home Review of Systems 10-point ROS is otherwise unremarkable Physical Examination Temp Pulse Resp BP Pulse Ox 97.8 F 62 18 157/93 H 96 08/18/22 04:00 08/18/22 04:00 08/18/22 04:00 08/18/22 04:00 08/18/22 04:00 General: Alert, In no apparent distress, Oriented x3 Cardiovascular: No edema, Normal pulses Capillary refill: <2 Seconds Musculoskeletal: No clubbing, No swelling, No contractures, No erythema, No tenderness, No warmth Integumentary: Diabetic ulcer (ulceration lateral left lower leg measuring approximately 3.0cmX2.0cmX0.5cm with large necrotic tissue, minimal fibrin, no purulence, no periwound erythema) Neurological: Sensation intact - Problems (1) Diabetic ulcer of left lower leg Current Visit: Yes Status: Acute (2) Diabetes mellitus Onset Date: 02/06/15 Current Visit: No Status: Chronic Qualifiers: Diabetes mellitus type: type 2 Diabetes mellitus prison insulin use: with 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 Wound dressed with medihoney. Patient to follow up with Dr. Dupree in wound care in one week Physician Review: Patient Assessed, Agree with Above Assessment and Plan
[2022-08-18] MEDS: NITROFURAN MACRO 100 MG CAP PO SCH (08:48)
[2022-08-18] MEDS: allopurinoL 100 MG TAB PO SCH (08:48)
[2022-08-18] MEDS: COLCHICINE 0.6 MG TAB PO SCH (08:48)
[2022-08-18] MEDS: SOTALOL HCL 80 MG TAB PO SCH (08:49)
[2022-08-18] MEDS: LEVOTHYROXINE SOD 0.05 MG TABLET PO SCH (08:49)
[2022-08-18] MEDS: APIXABAN 2.5 MG TABLET PO SCH (08:49)
[2022-08-18] MEDS: INSULIN GLARGINE 100 UNIT/ML SQ SCH (08:50)
[2022-08-18] MEDS: INSULIN -REGULAR HUMAN 50 UNIT/0.5 ML ML SQ SCH (08:50)
[2022-08-18] MEDS: INSULIN ASPART PROT SQ SCH (08:51)
[2022-08-18] MEDS: FUROSEMIDE 40 MG TABLET PO SCH (08:51)
[2022-08-18] MEDS: INSULN ASP SQ SCH (08:51)
[2022-08-18] MEDS: CODEINE 30MG/APAP 300MG TAB PO PRN (09:01)
--- NOTE | 2022-08-18 11:52 | RAD REPORT ---
EXAM DESCRIPTION: RAD - Shoulder Right 2 View - 08/16/2022 10:45 pm CLINICAL HISTORY: WEAKNESS Shoulder Right 2 View COMPARISON: None. TECHNIQUE: XR SHOULDER 2 OR MORE VIEWS 08/16/2022 10:33 PM CDT FINDINGS: There is no fracture. There is mild narrowing of the right acromioclavicular joint. Soft t issues are unremarkable. IMPRESSION: No acute osseous findings. Electronically signed by: Jeffrey Hummel MD 08/17/2022 4:42 AM CDT Due to temporary technical issues with the PACS/Fluency reporting system, reports are being signed by the in house radiologist without review as a courtesy to ensure prompt reporting. The interpreting r adiologist is fully responsible for the content of the report.
--- NOTE | 2022-08-18 12:06 | EKG ---
Test Date: 2022-08-16 Test Time: 21:13:23 Cardiac Cath Rn: RV MEASUREMENT RESULTS: Intervals: Rate: 65 UT: 132 QRSD: 112 QT: 428 QTc: 445 [place]: P: -3 UT: 132 QRS: 57 T: 127 INTERPRETIVE STATEMENTS: Normal sinus rhythm Right bundle branch block Abnormal ECG Compared to ECG 06/09/2022 11:11:25 Sinus bradycardia no longer present Electronically Signed On 08-18-22 12:00:59 CDT by Micha Tena
== END 2022-08-18 09:50 | disposition home or self-care (01) ==
LOC: ER 20:55 → 2ND 23:32
PROVIDERS: ADMIT Hospitalist; ATTEND Hospitalist
DX: R07.9 Chest pain, unspecified (principal); I48.11 Longstanding persistent atrial fibrillation; N18.9 Chronic kidney disease, unspecified; M25.511 Pain in right shoulder; E11.69 Type 2 diabetes mellitus with other specified complication; I10 Essential (primary) hypertension; E78.5 Hyperlipidemia, unspecified; E03.9 Hypothyroidism, unspecified; M10.9 Gout, unspecified; N18.30 Chronic kidney disease, stage 3 unspecified; I69.30 Unspecified sequelae of cerebral infarction; J44.9 Chronic obstructive pulmonary disease, unspecified; K21.9 Gastro-esophageal reflux disease without esophagitis; G82.20 Paraplegia, unspecified; S81.802A Unspecified open wound, left lower leg, initial encounter; S81.801A Unspecified open wound, right lower leg, initial encounter; Z88.8 Allergy status to other drugs, medicaments and biological substances; Z79.4 Long term (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; Z79.01 Long term (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 anticoagulants
CPT/HCPCS: 93005; 87070 ×2; 85025 ×2; 80048 ×3; 36415 ×2; 83735; 87205 ×2; 85610; 82947 ×5; 84443; 84484 ×3; 84439; 83880; 71045; 73030; 99285; J1815 ×5; J2270 ×4; 87077; 87186; G0378

== ENCOUNTER 2022-09-02 17:12 | Emergency (ER) | payer MEDICARE ==
--- OUTSIDE RECORDS SUMMARY | 2022-09-02 17:19 | XMS REPORT | Continuity of Care Document ---
:1965 Author Organization [facility] t Address [address] [place] [address] Care Team Providers Name Role Phone Priya Baltazar MD, William Primary Care Physician [phone] Ramon Powers Attending Clinician Unavailable Mychal Fuentes Attending Clinician Wilner Elise Attending Clinician Duyen Godfrey Attending Clinician Nikolay Attending Clinician Unavailable Roxana Attending Clinician Unavailable Terrell Amato MD Attending Clinician Avis Jackson Attending Clinician Nell Franco Attending Clinician MICHELLE Attending Clinician Unavailable MANDEEP PARKS Attending Clinician Unavailable Mandeep Parks Attending Clinician FAITH GOMEZ Attending Clinician Unavailable Birdie Virgen Attending Clinician Gamaliel Nicholas Attending Clinician Cori Martinez Attending Clinician Tung Azevedo Jr Attending Clinician Ramon Powers Admitting Clinician Unavailable Nikolay Admitting Clinician Unavailable Roxana Admitting Clinician Unavailable MICHELLE Admitting Clinician Unavailable MANDEEP PARKS Admitting Clinician Unavailable Mandeep Parks Admitting Clinician FAITH GOMEZ Admitting Clinician Unavailable Payers Payer Name Policy Type Policy Effective Date Expiration Date Sour ce Number [employer] [id number] 2020 (MEDICARE 00:00:00 REPLACEMENT HMO) [employer] C1 [id number] Common [facility] Problems Condition Condition Condition Status Onset Resolution Last Treating Co mments Source Name Details Category Date Date Treatment Clinician Date ACUTE ACUTE Diagnosis Active 2020-06-27 [facility] CHEST PAIN CHEST PAIN 06-14 21:53:00 l Active 00:00: [place] 06/14/2020 [facility] CHEST PAIN CHEST Diagnosis [facility]14 23:21:00 l Active 00:00: [place] 06/14/2020 00 [facility] DM2 DM2 Disease Recurre [facility] (diabetes (diabetes [facility] mellitus, mellitus, 00:00: [facility] timothy type 2) type 2) 00 Center Epididymit Epididymit Disease Active [facility] is, left is, left [facility] 00:00: [facility] 00 [place] HTN HTN Disease Active [facility] (hypertens [...] l 09/12/2013 00:00: Jose barajas [facility] 00 CKT CKT Diagnosis Active 2013-11-08 Mem oria Active 06-21 01:18:00 l 06/21/2013 00:00: Jose barajas [facility] 00 ED ED Active Diagnosis Active 2013-11-08 Memoria 06/20/201306-20 01:18:00 l [facility] 00:00: [place] 00 NO ORDERS NO ORDERS Diagnosis Active 2013-11-08 Memoria WRITTEN WRITTEN 05-24 01:18:00 l Active 00:00: [place] 05/24/2013 00 [facility] NEUROGENIC NEUROGENI Diagnosis Active 2014-07-28 Memoria BLADDER C BLADDER 04-19 16:13:00 l Active 00:00: [place] 04/19/2013 00 [facility] TBI TBI Diagnosis Active 2013-12-12 [facility] oria Active 03-09 12:27:00 l 03/09/2000 23:59: Jose barajas [facility] 00 SCI SCI Diagnosis Active 2014-09-13 Mem oria Active 03-09 16:37:00 l 03/09/2000 08:00: Jose barajas [facility] 00 [id number] Bladder Problem Common calculus [facility] Neurogenic Neurogenic Problem C ommon bladder bladder [facility] Paraplegia Paraplegic Problem C ommon spinal Spirit paralysis [facility] [id number] Gross Problem Common hematuria [facility] [id number] Neurogenic Problem Co mmon bladder, Spirit flaccid [facility] [id number] Trauma of Problem Comm on urethra, Spirit initial - [facility] encounter [facility] [id number] Complicate Problem Com mon d UTI [facility] (urinary - [facility] infection) [facility] Diabetes(C Diabetes( Problem Active 2014-02-22 Memoria onfirmed) Confirmed) 19:04:26 l Active [place] Problem 02/22/2014 [facility] GOUT(Confi GOUT(Conf Problem Active 2014-02-22 Memoria rmed) irmed) 19:04:26 l Active [place] Problem 02/22/2014 [facility] Pure Pure Problem Active 2014-02-22 Memor ia hyperchole hyperchole 19:04:26 l sterolemia sterolemia He rmann (disorder) (disorder) Active Problem 02/22/2014 [facility] Impotence Impotence Problem Active 2020-06-17 Memoria (disorder) (disorder) 22:29:12 l Active [place] Problem 06/17/2020 [facility] Spinal Spinal Problem Active 2020-06-17 Brandon karina cord cord 22:29:12 l injury injury [place] (disorder) (disorder) Active Problem 06/17/2020 [facility] CHEST CHEST Diagnosis Active 2020-06-27 Mem oria PAIN, PAIN, 21:53:00 l UNSPECIFIE UNSPECIFIE He rmann D D Active [facility] ILLNESS, ILLNESS, Diagnosis Active 2020-06-14 Memoria UNSPECIFIE UNSPECIFIE 23:21:00 l D D Active [place] [facility] Spinal Spinal Problem Resolve 2020-06-17 2020-06-17 Memoria cord cord d 11-15 22:29:12 22:29:12 l stroke stroke 00:00: [place] (disorder) (disorder) 00 Resolved 11/15/2013 Problem 06/17/2020 apr 19 2013 [facility] Diabetes Diabetes Problem Resolve 2020-06-17 2020-06-17 Memoria mellitus mellitus d 07-08 22:29:12 22:29:12 l (disorder) (disorder) 00:00: He rmann Resolved 00 07/08/2013 Problem 06/17/2020 [facility] GOUT(Confi Problem Resolve 2020-06-17 2020-06-17 Memoria rmed) GOUT(Confi d 07-08 22:29:12 22:29:12 l rmed) 00:00: [place] Resolved 00 07/08/2013 Problem 06/17/2020 [facility] Hyperchole Problem Resolve 2020-06-17 2020-06-17 Memoria sterolemia Hyperchole d 07-08 22:29:12 22:29:12 l (disorder) sterolemia 00:00: He rmann (disorder) 00 Resolved 07/08/2013 Problem 06/17/2020 [facility] Essential Essential Problem Resolve 2020-06-17 2020-06-17 Memoria hypertensi hypertensi d 07-08 22:29:12 22:29:12 l on on 00:00: [place] (disorder) (disorder) 00 Resolved 07/08/2013 Problem 06/17/2020 [facility] Allergies, Adverse Reactions, Alerts Allergy Allergy Status [...] ibuprofe Active Memori a n n l [place] metFORMI metFORMI Active Memori [facility] N N l [place] Family History Family Member Diagnosis Comments Start Date Stop Date Source Natural brother Kidney disease [facility] Natural mother Diabetes [facility] Natural sister Diabetes [facility] Social History Social Habit Start Date Stop Date Quantity Comments Source History of Tobacco [facility] - Use [facility] Gender identity [facility] Tobacco use and 2021-09-19 2021-09-19 Smokeless [facility] exposure 00:00:00 00:00:00 tobacco non-user Hospital History of Social 2021-09-19 2021-09-[address] function 00:00:00 00:00:00 Hospital Alcohol intake 2016-07-01 2016-07-01 Current [facility] 00:00:00 00:00:00 non-drinker of Medical Ce nter alcohol (finding) Social History 2013-04-20 [facility] 11:02:37 Sex Ass[birth year] At [birth year] [facility] 00:00:00 [facility]:00 [facility] Center Smoking Status Start Date Stop Date Source Never Smoker [facility] consumption unknown Ex-smoker 2016-07-01 00:00:00 2016-07-01 [facility] 00:00:00 Center Medications Ordered Filled Start Stop Current Ordering Indication Dosage Frequency Signature Comments Components Source Medication Medication Date Date Medication? Clinician (SIG) Name Name Cipro 500 Cipro 500 2022-0 3- No 1{table BID Cipro 500 MG MG 03-22 t} MG 00:00: 00:00 00 :00 Cipro 500 Cipro 500 2022-0 2022- No 1{table BID Cipro 500 MG MG -14 04-01 t} MG 00:00: 00:00 00 :00 Cefpodoxime Cefpodoxime 2021-03- No 1{table BID Cefpodoxim Proxetil Proxetil 04-15 t_with_ e Proxetil 200 MG 200 MG 00:00: 00:00 food} 200 MG 00 :00 ciprofloxac 2-0 Yes 750mg Q.5D Take 750 M ethodi in HCl 7-[address] (CIPRO) 750 18:31: mouth 2 Hos vee MG tablet 02 (two) l times a day. dexamethaso 2-0 Yes 1mg Q.5D Take 1 mg M ethodi ne 7-[address] (DECADRON) 18:31: (two) Hospit a 0.5 MG 02 times a l tablet day with meals. ciprofloxac 2-0 Yes 750mg Q.5D Take 750 M ethodi [...] a l tablet day with meals. ciprofloxac Yes 750mg Q.5D Take 750 M [...] mouth daily for 30 days. Cefdinir Cefdinir 2020-03- No BID 300 MG 300 MG 03-13 00:00: 00:00 00 :00 atorvastati No Notes: Brandon karina n 4-10 (Same As: l 02:00: Lipitor) atorvastati No Notes: Brandon karina n 4-10 (Same As: l 02:00: Lipitor) atorvastati No Notes: Brandon karina n 4-10 (Same As: l 02:00: Lipitor) atorvastati 2020-0 No Notes: Brandon karina n 4-10 (Same As: l 02:00: Lipitor) cefdinir 0 Yes 300 mg = 1 Mem oria 300 MG Oral 4-09 cap, PO, l Capsule 22:52: Q12H, X 7 Love nn 00 day, # 14 cap, 0 Refill(s), Pharmacy: [facility], 172.72, cm, 06/14/20 23:37:00 CDT, Height, 106.545, kg, 06/14/20 23:37:00 CDT, Weight cefdinir 0 Yes 300 mg = 1 Mem oria 300 MG Oral 4-09 cap, PO, l Capsule 22:52: Q12H, X 7 Love nn 00 day, # 14 cap, 0 Refill(s), Pharmacy: [facility], 172.72, cm, 06/14/20 23:37:00 CDT, Height, 106.545, kg, 06/14/20 23:37:00 CDT, Weight cefdinir 0 Yes 300 mg = 1 Mem oria 300 MG Oral 4-09 cap, PO, l Capsule 22:52: Q12H, X 7 Love nn 00 day, # 14 cap, 0 Refill(s), Pharmacy: [facility], 172.72, cm, 06/14/20 23:37:00 CDT, Height, 106.545, kg, 06/14/20 23:37:00 CDT, Weight cefdinir 2020-0 Yes 300 mg = 1 Mem oria 300 MG Oral 4-09 cap, PO, l Capsule 22:52: Q12H, X 7 Love nn 00 day, # 14 cap, 0 Refill(s), Pharmacy: [facility], 172.72, cm, 06/14/20 23:37:00 CDT, Height, 106.545, kg, 06/14/20 23:37:00 CDT, Weight Colchicine 2020-0 Yes 0.6 mg = 1 M emoria 0.6 MG Oral 4-09 tab, PO, l Tablet 22:36: BID, 0 Refill(s) pravastatin 0 Yes 20 mg = 1 M emoria 20 mg oral 4-09 tab, PO, l tablet 22:36: Bedtime, # Love nn 00 90 tab, 0 Refill(s), Pharmacy: [facility], 172.72, cm, 06/14/20 23:37:00 CDT, Height, 106.545, kg, 06/14/20 23:37:00 CDT, Weight pantoprazol 0 Yes 40 mg = 1 M emoria e 40 mg 4-09 tab, PO, l oral 22:36: Before [place] enteric 00 Breakfast, coated # 30 tab, tablet 0 Refill(s), Pharmacy: [facility], 172.72, cm, 06/14/20 23:37:00 CDT, Height, 106.545, kg, 06/14/20 23:37:00 CDT, Weight { Yes See Memoria (Methylpred 4-09 Instructio l nisolone 4 22:36: ns, PO, Herm yogesh MG Oral 00 Take by Tablet mouth as [Medrol]) } directed Pack on label., [Medrol X 6 day, # Dosepak] 21 tab, 0 Refill(s), Pharmacy: [facility], 172.72, cm, 06/14/20 23:37:00 CDT, Height, 106.545, kg, 06/14/20 23:37:00 CDT, Weight Colchicine Yes 0.6 mg = 1 M emoria 0.6 MG Oral 4-09 tab, PO, l Tablet 22:36: BID, 0 [place] 00 Refill(s) pravastatin 0 Yes 20 mg = 1 M emoria 20 mg oral 4-09 tab, PO, l tablet 22:36: Bedtime, # Love nn 00 90 tab, 0 Refill(s), Pharmacy: [facility], 172.72, cm, 06/14/20 23:37:00 CDT, Height, 106.545, kg, 06/14/20 23:37:00 CDT, Weight pantoprazol 0 Yes 40 mg = 1 M emoria e 40 mg 4-09 tab, PO, l oral 22:36: Before [place] enteric 00 Breakfast, coated # 30 tab, tablet 0 Refill(s), Pharmacy: [facility], 172.72, cm, 06/14/20 23:37:00 CDT, Height, 106.545, kg, 06/14/20 23:37:00 CDT, Weight { Yes See Memoria (Methylpred 4-09 Instructio l nisolone 4 22:36: ns, PO, Herm yogesh MG Oral 00 Take by Tablet mouth as [Medrol]) } directed Pack on label., [Medrol X 6 day, # Dosepak] 21 tab, 0 Refill(s), Pharmacy: [facility], 172.72, cm, 06/14/20 23:37:00 CDT, Height, 106.545, kg, 06/14/20 23:37:00 CDT, Weight Colchicine Yes 0.6 mg = 1 M emoria 0.6 MG Oral 4-09 tab, PO, l Tablet 22:36: BID, 0 [place] 00 Refill(s) pravastatin Yes 20 mg = 1 M emoria 20 mg oral 4-09 tab, PO, l tablet 22:36: Bedtime, # Love nn 00 90 tab, 0 Refill(s), Pharmacy: [facility], 172.72, cm, 06/14/20 23:37:00 CDT, Height, 106.545, kg, 06/14/20 23:37:00 CDT, Weight pantoprazol Yes 40 mg = 1 M emoria e 40 mg 4-09 tab, PO, l oral 22:36: Before [place] enteric 00 Breakfast, coated # 30 tab, tablet 0 Refill(s), Pharmacy: [facility], 172.72, cm, 06/14/20 23:37:00 CDT, Height, 106.545, kg, 06/14/20 23:37:00 CDT, Weight { Yes See Memoria (Methylpred 4-09 Instructio l nisolone 4 22:36: ns, PO, Herm yogesh MG Oral 00 Take by Tablet mouth as [Medrol]) } directed Pack on label., [Medrol X 6 day, # Dosepak] 21 tab, 0 Refill(s), Pharmacy: [facility], 172.72, cm, 06/14/20 23:37:00 [...] nn 00 90 tab, 0 Refill(s), Pharmacy: [facility], 172.72, cm, 06/14/20 23:37:00 CDT, Height, 106.545, kg, 06/14/20 23:37:00 CDT, Weight pantoprazol Yes 40 mg = 1 M emoria e 40 mg 4-09 tab, PO, l oral 22:36: Before [place] enteric 00 Breakfast, coated # 30 tab, tablet 0 Refill(s), Pharmacy: [facility], 172.72, cm, 06/14/20 23:37:00 CDT, Height, 106.545, kg, 06/14/20 23:37:00 CDT, Weight { Yes See Memoria (Methylpred 4-09 Instructio l nisolone 4 22:36: ns, PO, Herm yogesh MG Oral 00 Take by Tablet mouth as [Medrol]) } directed Pack on label., [Medrol X 6 day, # Dosepak] 21 tab, 0 Refill(s), Pharmacy: [facility], 172.72, cm, 06/14/20 23:37:00 CDT, Height, 106.545, kg, 06/14/20 23:37:00 CDT, Weight NovoLog No 30 unit, Memori a 4-09 Route: l 21:30: SUB-Q, [place] 00 TID-Before Meals, Dosing Weight 106.545, kg, [...] ____Date NovoLog No 30 unit, Memori a 4- Route: l 21:30: SUB-Q, [place] 00 TID-Before Meals, Dosing Weight 106.545, kg, Start date: 06/15/20 16:30:00 CDT, Duration: 30 day, Stop date: 07/15/20 11:30:00 CDT Humalog No Notes: Memoria 4- (Same as: l 21:30: Humalog) [place] 00 Roll in palms of hands gently; Do not shake vigorously . WASTE: F/P - Black; E - Municipal Trash Bin Stable for 28 days at room temperatur e. Expires in days from ____Date NovoLog No 30 unit, Memori a - [...] ____Date NovoLog No 30 unit, Memori a 4- Route: l 21:30: SUB-Q, [place] 00 TID-Before Meals, Dosing Weight 106.545, kg, Start date: 06/15/20 16:30:00 CDT, Duration: 30 day, Stop date: 07/15/20 11:30:00 CDT Humalog No Notes: Memoria 4- (Same as: l 21:30: Humalog) Roll in palms of hands gently; [...] from ____Date Insulin No Notes: Memoria Glargine 4-09 (Same as: l 15:00: Lantus) Do [place] 00 not hold insulin without contacting prescriber WASTE: F/P - Black; E - Municipal Trash Bin "single patient use only" Stable for 28 days at room temperatur e Expires in days from ____Date Insulin No Notes: Memoria Glargine 4-09 (Same as: l 15:00: Lantus) Do [place] 00 not hold insulin without contacting prescriber WASTE: F/P - Black; E - Municipal Trash Bin "single patient use only" Stable for 28 days at room temperatur e Expires in days from ____Date Insulin No Notes: Memoria Glargine 4- (Same as: l 15:00: Lantus) Do [place] 00 not hold insulin without contacting prescriber WASTE: F/P - Black; E - Municipal Trash Bin "single patient use only" Stable for 28 days at room temperatur e Expires in days from ____Date Protonix No Notes: Memoria 4-09 Tablet l 14:28: should not [place] 00 be chewed or crushed. (Same as: Protonix) ketOROLAC 2020-0 No 4 days Memor ia 30 mg/mL 4-09 l injectable 14:28: MEDICATION H ermann solution 00 WASTE Product Size: 30 mg Product Wasted: ___ mg Protonix 2020-0 No Notes: Memoria 4-09 Tablet l 14:28: should not [place] 00 be chewed or crushed. (Same as: Protonix) ketOROLAC 2020-0 No 4 days Memor ia 30 mg/mL 4-09 l injectable 14:28: MEDICATION H ermann solution 00 WASTE Product Size: 30 mg Product Wasted: ___ mg Protonix 2020-0 No Notes: Memoria 4-09 Tablet l 14:28: should not [place] 00 be chewed or crushed. (Same as: Protonix) ketOROLAC No 4 days Memor ia 30 mg/mL 09 l injectable 14:28: MEDICATION H ermann solution 00 WASTE Product Size: 30 mg Product Wasted: ___ mg Protonix No Notes: Memoria 4-09 Tablet l [...] 06-15 Non-Formul l Tablet 14:00: noe Drug [place] 00 (Same as: Tricor) Furosemide No Notes: Memor ia 20 MG Oral 06-15 (Same as: l Tablet 14:00: Lasix) May Love nn 00 cause GI upset. Give with food or milk. insulin No 40 unit, Memori a detemir 06-15 Route: l 14:00: SUB-Q, [place] 00 Drug form: SOLN, Q12H, Dosing Weight 106.545, kg, Start date: 06/15/20 9:00:00 CDT, Duration: 30 day, Stop date: 07/14/20 21:00:00 CDT Thyroxine No Notes: Memori a -09 Take 1 l 14:00: hour [place] 00 before or 2 hours after meal; Enteral feeds may interefere with the absorption of this medication . (Same as:Synthro id, Levothroid ) Aspirin 81 No Notes: Memor ia MG Chewable -09 Take with l Tablet 14:00: food. [place] 00 Saline No Notes: Memoria Flush 0.9% 06-15 (Same as: l 14:00: BD [place] Posiflush) Colchicine No Notes: Memor ia 0.6 MG Oral 4-09 Hazardous l Tablet 14:00: Drug Group Love nn 3:Reproduc tive risk Hazardous Drug -- Refer to safe handling procedure PPE Matrix Fenofibrate No Notes: Brandon karina 160 MG Oral 4-09 Non-Formul l Tablet 14:00: noe Drug [place] 00 (Same as: Tricor) Furosemide No Notes: Memor ia 20 MG Oral 4-09 (Same as: l Tablet 14:00: Lasix) July cause GI upset. Give with food or milk. insulin No 40 unit, Memori a detemir 4-09 Route: l 14:00: SUB-Q, [place] 00 Drug [...] 4-09 Take with l Tablet 14:00: food. [place] 00 Saline No Notes: Memoria Flush 0.9% 4- (Same as: l 14:00: BD Posiflush) Colchicine No Notes: Memor ia 0.6 MG Oral 4-09 Hazardous l Tablet 14:00: Drug Group Love nn 3:Reproduc tive risk Hazardous Drug -- Refer to safe handling procedure PPE Matrix Fenofibrate No Notes: Brandon karina 160 MG Oral 4-09 Non-Formul l Tablet 14:00: noe Drug [place] 00 (Same as: Tricor) Furosemide No Notes: Memor ia 20 MG Oral 4-09 (Same as: l Tablet 14:00: Lasix) July cause GI upset. Give with food or milk. insulin No 40 unit, Memori a detemir 4-09 Route: l 14:00: SUB-Q, Drug form: SOLN, Q12H, Dosing Weight 106.545, kg, Start date: 06/15/20 9:00:00 CDT, Duration: 30 day, Stop date: 07/14/20 21:00:00 CDT Thyroxine No Notes: Memori a 4-09 Take 1 l 14:00: hour [place] 00 before or 2 hours after meal; Enteral feeds may interefere with the absorption of this medication . (Same as:Synthro id, Levothroid ) Aspirin 81 No Notes: Memor ia MG Chewable - Take with l Tablet 14:00: food. [place] 00 Saline No Notes: Memoria Flush 0.9% 06-15 (Same as: l 14:00: BD Posiflush) Colchicine No Notes: Memor ia 0.6 MG Oral 06-15 Hazardous l Tablet 14:00: Drug Group 3:Reproduc tive risk Hazardous Drug -- Refer to safe handling procedure PPE Matrix Fenofibrate No Notes: Brandon karina 160 MG Oral 06-15 Non-Formul l Tablet 14:00: noe Drug (Same as: Tricor) Furosemide No Notes: Memor ia 20 MG Oral - (Same as: l Tablet 14:00: Lasix) May cause GI upset. Give with food or milk. insulin No 40 unit, Memori a detemir 06-15 Route: l 14:00: SUB-Q, Drug form: SOLN, Q12H, Dosing Weight 106.545, kg, Start date: 06/15/20 9:00:00 CDT, Duration: 30 day, Stop date: 07/14/20 21:00:00 CDT Thyroxine No Notes: Memori a 4-09 Take 1 l 14:00: hour [place] 00 before or 2 hours after meal; Enteral feeds may interefere with the absorption of this medication . (Same as:Synthro id, Levothroid ) Aspirin 81 No Notes: Memor ia MG Chewable 4-09 Take with l Tablet 14:00: food. Saline No Notes: Memoria Flush 0.9% - (Same as: l 14:00: BD [place] Posiflush) BD Normal No Notes: Memori a Saline - (Same as: l Flush 12:44: BD [place] Posiflush) Sodium 0 No 25 mL, Memoria Chloride 06-15 Route: IV, l 0.9% IV 12:44: Start date: 06/15/20 7:44:00 CDT, Duration: 30 day, Stop date: 07/15/20 7:43:00 CDT, PRN Line Flush, 0 BD Normal No Notes: Memori a Saline - (Same as: l Flush 12:44: BD [place] Posiflush) Sodium No 25 mL, Memoria Chloride 06-15 Route: IV, l 0.9% IV 12:44: Start date: 06/15/20 7:44:00 CDT, Duration: 30 day, Stop date: 07/15/20 7:43:00 CDT, PRN Line Flush, 0 BD Normal No Notes: Memori a Saline 06-15 (Same as: l Flush 12:44: BD [place] 00 Posiflush) Sodium 0 No 25 mL, Memoria Chloride 06-15 Route: IV, l 0.9% IV 12:44: Start date: 06/15/20 7:44:00 CDT, Duration: 30 day, Stop date: 07/15/20 7:43:00 CDT, PRN Line Flush, 0 BD Normal No Notes: Memori a Saline - (Same as: l Flush 12:44: BD [place] Posiflush) Sodium 0 No 25 mL, Memoria Chloride 4- Route: IV, l 0.9% IV 12:44: Start date: 06/15/20 7:44:00 CDT, Duration: 30 day, Stop date: 07/15/20 7:43:00 CDT, PRN Line Flush, 0 BD Normal No Notes: Memori a Saline - (Same as: l Flush 12:43: BD [place] 00 Posiflush) BD Normal No Notes: Memori a Saline - (Same as: l Flush 12:43: BD [place] 00 Posiflush) BD Normal No Notes: Memori a Saline - (Same as: l Flush 12:43: BD [place] 00 Posiflush) BD Normal No Notes: Memori a Saline - (Same as: l Flush 12:43: BD [place] 00 Posiflush) Dextrose No 12.5 gm, Memor ia 50% Syringe 06-15 25 mL, l (D50W) 12:36: Route: [place] 00 IVP, Drug Form: INJ, Dosing Weight 106.545, kg, PRN, PRN Blood Glucose Results, Start date: 06/15/20 7:36:00 CDT, Duration: 30 day, Stop date: 07/15/20 7:35:00 CDT, 0 Glucagon No 1 mg, Memoria 06-15 Route: IM, l 12:36: Drug form: Shady PDR/INJ, PRN, Dosing Weight 106.545, kg, PRN [...] 06-15 25 mL, l (D50W) 12:36: Route: [place] 00 IVP, Drug Form: INJ, Dosing Weight 106.545, kg, PRN, PRN Blood Glucose Results, Start date: 06/15/20 7:36:00 CDT, Duration: 30 day, Stop date: 07/15/20 7:35:00 CDT, 0 Glucagon 202-0 No 1 mg, Memoria - Route: IM, l 12:36: Drug form: [place] 00 PDR/INJ, PRN, Dosing Weight 106.545, kg, PRN Blood Glucose Results, Start date: 06/15/20 7:36:00 CDT, Duration: 30 day, Stop date: 07/15/20 7:35:00 CDT, 0 Insulin 202-0 No Notes: Memoria Lispro - (Same as: l 12:36: Humalog) Roll in palms of hands gently; Do not shake vigorously . WASTE: F/P - Black; E - Municipal Trash Bin Stable for 28 days at room temperatur e. Expires in days from ____Date Dextrose 2020-0 No 12.5 gm, Memor ia 50% Syringe 06-15 25 mL, l (D50W) 12:36: Route: [place] IVP, Drug Form: INJ, Dosing Weight 106.545, kg, PRN, PRN Blood Glucose Results, Start date: 06/15/20 7:36:00 CDT, Duration: 30 day, Stop date: 07/15/20 7:35:00 CDT, 0 Glucagon 2020-0 No 1 mg, Memoria 06-15 Route: IM, l 12:36: Drug form: [place] 00 PDR/INJ, PRN, Dosing Weight 106.545, kg, PRN Blood Glucose Results, Start date: 06/15/20 7:36:00 CDT, Duration: 30 day, Stop date: 07/15/20 7:35:00 CDT, 0 Insulin 2020-0 No Notes: Memoria Lispro - (Same as: l 12:36: Humalog) Roll in palms of hands gently; Do not shake vigorously . WASTE: F/P - Black; E - Municipal Trash Bin Stable for 28 days at room temperatur e. Expires in days from ____Date Dextrose 2020-0 No 12.5 gm, Memor ia 50% Syringe 06-15 25 mL, l (D50W) 12:36: Route: [place] 00 IVP, Drug Form: INJ, Dosing Weight 106.545, kg, PRN, PRN Blood Glucose Results, Start date: 06/15/20 7:36:00 CDT, Duration: 30 day, Stop date: 07/15/20 7:35:00 CDT, 0 Glucagon No 1 mg, Memoria 06-15 Route: IM, l 12:36: Drug form: [place] PDR/INJ, PRN, Dosing Weight 106.545, kg, PRN [...] Memoria 06-15 Same as l 09:18: Dilaudid [place] Dilaudid No Notes: Memoria 06-15 Same as l 09:18: Dilaudid [place] 00 Dilaudid No Notes: Memoria 06-15 Same as l 09:18: Dilaudid [place] 00 Dilaudid No Notes: Memoria 06-15 Same as l 09:18: Dilaudid [place] Nitroglycer No Notes: Brandon karina in 06-15 (Same l 05:09: as:Nitroqu [place] 00 ick, Nitrostat) "Do Not Crush" Sublingual tablet Saline No Notes: Memoria Flush 0.9% 06-15 (Same as: l 05:09: BD [place] 00 Posiflush) Nitroglycer No Notes: Brandon karina in 06-15 (Same l 05:09: as:Nitroqu [place] 00 ick, Nitrostat) "Do Not Crush" Sublingual tablet Saline No Notes: Memoria Flush 0.9% 06-15 (Same as: l 05:09: BD [place] 00 Posiflush) Nitroglycer No Notes: Brandon karina in 06-15 (Same l 05:09: as:Nitroqu [place] 00 ick, Nitrostat) "Do Not Crush" Sublingual tablet Saline No Notes: Memoria Flush 0.9% 06-15 (Same as: l 05:09: BD [place] Posiflush) Nitroglycer No Notes: Brandon karina in 06-15 (Same l 05:09: as:Nitroqu [place] 00 ick, Nitrostat) "Do Not Crush" Sublingual tablet Saline No Notes: Memoria Flush 0.9% 06-15 (Same as: l 05:09: BD [place] Posiflush) lisinopril No 40 mg = 1 Me moria 40 mg oral 06-15 tab, PO, l tablet 05:00: Daily, 0 [place] 00 Refill(s) lisinopril 0 No 40 mg = 1 Me moria 40 mg oral 06-15 tab, PO, l tablet 05:00: Daily, 0 [place] 00 Refill(s) lisinopril 2020-0 No 40 mg = 1 Me moria 40 mg oral 06-15 tab, PO, l tablet 05:00: Daily, 0 [place] 00 Refill(s) lisinopril 2020-0 No 40 mg = 1 Me moria 40 mg oral 06-15 tab, PO, l tablet 05:00: Daily, 0 [place] 00 Refill(s) NovoLog 2020-0 Yes See Memoria 06-15 Instructio l 04:58: ns, 30 U [place] 00 SUB-Q TID-Before Meals, 0 Refill(s) NovoLog 2020-0 Yes See Memoria 06-15 Instructio l 04:58: ns, 30 U [place] 00 SUB-Q TID-Before Meals, 0 Refill(s) NovoLog 2020-0 Yes See Memoria 06-15 Instructio l 04:58: ns, 30 U [place] 00 SUB-Q TID-Before Meals, 0 Refill(s) NovoLog Yes See Memoria 4-09 Instructio l 04:58: ns, 30 U [place] [...] 4-09 Instructio l UNT/ML 04:57: ns, 40U [place] Injectable 00 BID SUB-Q, Solution 0 [Levemir] [...] karina 4-09 Daily, 0 l 04:56: Refill(s) [place] levothyroxi Yes 75 Memori a ne 75 mcg 4-09 microgram l (0.075 mg) 04:56: = 1 tab, Her minor oral tablet 00 PO, Daily, 0 Refill(s) Aspirin Yes 81 mg, PO, Brandon karina 4-09 Daily, 0 l 04:56: Refill(s) [place] levothyroxi Yes 75 Memori a ne 75 mcg 4-09 microgram l (0.075 mg) 04:56: = 1 tab, Her minor oral tablet 00 PO, Daily, 0 Refill(s) Aspirin Yes 81 mg, PO, Brandon karina 4-09 Daily, 0 l 04:56: Refill(s) [place] levothyroxi Yes 75 Memori a ne 75 mcg 4-09 microgram l (0.075 mg) 04:56: = 1 tab, Her minor oral tablet 00 PO, Daily, 0 Refill(s) Aspirin Yes 81 mg, PO, Brandon karina 4-09 Daily, 0 l 04:56: Refill(s) Fenofibrate Yes 160 mg = 1 Memoria 160 MG Oral 4-09 tab, PO, l Tablet 04:55: Daily, 0 [place] 00 Refill(s) Furosemide Yes 20 mg = 1 Me moria 20 MG Oral 4-09 tab, PO, l Tablet 04:55: Daily, 0 [place] 00 Refill(s) Fenofibrate Yes 160 mg = 1 Memoria 160 MG Oral 4-09 tab, PO, l Tablet 04:55: Daily, 0 [place] 00 Refill(s) Furosemide Yes 20 mg = 1 Me moria 20 MG Oral 4-09 tab, PO, l Tablet 04:55: Daily, 0 [place] 00 Refill(s) Fenofibrate Yes 160 mg = 1 Memoria 160 MG Oral 4-09 tab, PO, l Tablet 04:55: Daily, 0 [place] 00 Refill(s) Furosemide Yes 20 mg = 1 Me moria 20 MG Oral 4-09 tab, PO, l Tablet 04:55: Daily, 0 [place] 00 Refill(s) Fenofibrate Yes 160 mg = [...] tab, PO, l Tablet 04:54: BID, 0 [place] 00 Refill(s) Colchicine No 0.6 mg = 1 M emoria 0.6 MG Oral 4-09 tab, PO, l Tablet 04:54: BID, 0 [place] 00 Refill(s) Colchicine No 0.6 mg = 1 M emoria 0.6 MG Oral 4-09 tab, PO, l Tablet 04:54: BID, 0 [place] 00 Refill(s) atenolol Yes 50mg QD Take [address] [facility] (TENORMIN) 4-28 [facility] 15:23: daily. Medical tablet 08 Center oxybutynin Yes 5mg [id number] Take [address] [facility] (DITROPAN) 4-28 [id number] by mouth 3 [facility] 5 MG tablet [...] tablet 08 Center oxybutynin 2017-0 Yes 5mg Q.[id number] Take [address] [facility] (DITROPAN) 4-28 [id number] by mouth 3 [facility] 5 MG tablet 15:23: 3D (three) Med ical 08 times Center daily. pantoprazol 2017-0 Yes 40mg QD Take [address] [facility] e 4-28 by mouth [facility] (PROTONIX) 15:23: daily Medica l 40 MG 08 Before Center tablet breakfast . levothyroxi 2017-0 Yes 75ug Take [address] [facility] ne 4-28 mcg by [facility] (SYNTHROID, 15:23: mouth Medic al LEVOTHROID) 08 Every Center 75 MCG morning on tablet an empty stomach. insulin 2017-0 Yes 36U Q.5D Inject [facility] [...] needed As needed for gout . atenolol 2017-0 Yes 50mg QD Take [address] [facility] (TENORMIN) 4-28 by mouth [facility] 50 MG 15:23: daily. Medical tablet 08 Center oxybutynin 2017-0 Yes 5mg Q.[id number] Take [address] [facility] (DITROPAN) 4-28 [id number] by mouth 3 [facility] 5 MG tablet 15:23: 3D (three) Med ical 08 times Center daily. pantoprazol 2017-0 Yes 40mg QD Take [address] [facility] 4-28 by mouth [facility] (PROTONIX) 15:23: daily Medica l 40 MG 08 Before Center tablet breakfast . levothyroxi 2017-0 Yes 75ug Take [address] [facility] ne 4-28 mcg by [facility] (SYNTHROID, 15:23: mouth Medic al LEVOTHROID) 08 Every Center 75 MCG morning on tablet an empty stomach. insulin 2017- Yes 36U Q.5D Inject 36 [facility] (LEVEMIR) 15:23: subcutaneo Me dical 100 unit/mL 08 usly 2 Center (3 mL) InPn (two) injection times daily pen . insulin 2017- Yes 20U Inject 20 [facility] [...] tablet 08 Center oxybutynin 2017 Yes 5mg Q.[id number] Take [address] [facility] (DITROPAN) 4-28 [id number] by mouth 3 [facility] 5 MG tablet 15:23: 3D (three) Med ical 08 times Center daily. pantoprazol 20170 Yes 40mg QD Take [address] [facility] e 4-28 by mouth [facility] (PROTONIX) 15:23: daily Medica l 40 MG 08 Before Center tablet breakfast . levothyroxi 20170 Yes 75ug Take [address] [facility] ne 4-28 mcg by [facility] (SYNTHROID, 15:23: mouth Medic al LEVOTHROID) 08 Every Center 75 MCG morning on tablet an empty stomach. insulin 2017-0 Yes 36U Q.5D Inject 36 [facility] [...] tab, PO, l tablet 16:46: Daily, # [place] 00 30 tab, 0 Refill(s) Docusate Yes 100 mg = 1 Mem oria Sodium 100 5-02 cap, PO, l MG Oral 16:46: BID, [place] Capsule 00 Constipati [Colace] on, # 20 cap, 0 Refill(s) Bisacodyl Yes 10 mg = 1 Mem oria 10 MG 5-02 supp, [place], l Rectal 16:46: Daily, [place] Suppository 00 Constipati [Bisac-Evac on, # 10 ] supp, 0 Refill(s) Atenolol 50 Yes 50 mg = 1 M emoria MG Oral 5-02 tab, PO, l Tablet 16:46: Daily, # [place] 00 30 tab, 0 Refill(s) allopurinol Yes [...] 55 in am Memori a detemir 100 -02 and 25 l units/mL 16:46: units at [...] mg = 1 Mem oria Sodium 100 -02 cap, PO, l MG Oral 16:46: BID, [place] Capsule 00 Constipati [Colace] on, # 20 cap, 0 Refill(s) Bisacodyl Yes 10 mg = 1 Mem oria 10 MG 5-02 supp, [place], l Rectal 16:46: Daily, [place] Suppository 00 [...] 5-02 Instructio l tablet 16:46: ns: at [place] 00 noon Ranitidine Yes 150 mg = [...] tab, PO, l tablet 16:46: Daily, # [place] 00 30 tab, 0 Refill(s) Docusate Yes 100 mg = 1 Mem oria Sodium 100 5-02 cap, PO, l MG Oral 16:46: BID, [place] Capsule 00 Constipati [Colace] on, # 20 cap, 0 Refill(s) Bisacodyl Yes 10 mg = 1 Mem oria 10 MG 5-02 supp, [place], l Rectal 16:46: Daily, [place] Suppository 00 [...] 55 in am Memori a detemir 100 -02 and 25 l units/mL 16:46: units at [...] 1 Mem oria 10 MG 5-02 supp, [place], l Rectal 16:46: Daily, [place] Suppository 00 Constipati [Bisac-Evac on, # 10 ] supp, 0 Refill(s) Atenolol 50 Yes 50 mg = 1 M emoria MG Oral 5-02 tab, PO, l Tablet 16:46: Daily, # [place] 00 30 tab, 0 Refill(s) allopurinol Yes 100 mg = 1 Memoria 100 mg oral 5-02 tab, PO, l tablet 16:46: TID, # 60 Jose n 00 tab, 0 Refill(s) 3 ML Yes sliding Memoria Insulin, 5-02 scale l Aspart, 16:46: before [place] Human 100 00 meals, UNT/ML SUB-Q, Prefilled [...] a 300 4-14 (Same l 15:20: as:Omnipaq [place] ue 300). Omnipaque Yes Notes: Memori a 300 4-14 (Same l 15:20: as:Omnipaq [place] ue 300). Omnipaque Yes Notes: Memori a 300 4-14 (Same l 15:20: as:Omnipaq [place] ue 300). Omnipaque Yes Notes: Memori a [...] pneumococcal 2013-04-21 Completed [facility] 23-valent vaccine 03:02:00 [place] influenza virus 2013-04-21 Completed [facility] vaccine, inactivated 03:02:00 Herm yogesh pneumococcal 2013-04-21 Completed [facility] 23-valent vaccine 03:02:00 [place] influenza virus 2013-04-21 Completed [facility] vaccine, inactivated 03:02:00 Herm yogesh pneumococcal 2013-04-21 Completed [facility] 23-valent vaccine 03:02:00 [place] influenza virus 2013-04-21 Completed [facility] vaccine, inactivated 03:02:00 Herm yogesh pneumococcal 2013-04-21 Completed [facility] 23-valent vaccine 03:02:00 [place] influenza virus 2013-04-21 Completed [facility] vaccine, inactivated 03:02:00 Herm yogesh Vital Signs Vital Name Observation Time Observation Value Comments Source height 2022-02-13 17:15:00 68 [in_i] [facility] weight 2022-02-13 17:15:00 245 [lb_av] [facility] temperature 2022-02-13 17:15:00 98.6 [degF] [facility] bmi 2022-02-13 17:15:00 37.25 kg/m2 [facility] oximetry 2022-02-13 17:15:00 96 % [facility] respiratory rate 2022-02-13 17:15:00 16 /min Comm on [facility] blood pressure 2022-02-13 17:15:00 171 mm[Hg] [facility] [place], [place] - systolic [facility] blood pressure 2022-02-13 17:15:00 97 mm[Hg] [facility] [place], [place] - diastolic [facility] height 2022-02-06 14:30:00 68 [in_i] [facility] weight 2022-02-06 14:30:00 244 [lb_av] [facility] temperature 2022-02-06 14:30:00 98.2 [degF[facility]mi 2022-02-06 14:30:00 37.1 kg/m2 [facility] oximetry 2022-02-06 14:30:00 97 % [facility] respiratory rate 2022-02-06 14:30:00 16 /min Comm on [facility] - [facility] blood pressure 2022-02-06 14:30:00 164 mm[Hg] [facility] - systolic [facility] blood pressure 2022-02-06 14:30:00 90 mm[Hg] [facility] - diastolic [facility] height 2021-02-11 11:20:00 68 [in_i] [facility] weight 2021-02-11 11:20:00 235 [lb_av] Common [facility] temperature 2021-02-11 11:20:00 98.7 [degF] Common [facility] bmi 2021-02-11 11:20:00 35.73 kg/m2 [facility] oximetry 2021-02-11 11:20:00 95 % Common [facility] blood pressure 2021-02-11 11:20:00 170 mm[Hg] [facility] - systolic [facility] blood pressure 2021-02-11 11:20:00 99 mm[Hg] [facility] - diastolic [facility] height 2021-01-11 08:40:00 68 [in_i] Common [facility] weight 2021-01-11 08:40:00 235 [lb_av] [facility] temperature 2021-01-11 08:40:00 97.8 [degF] Common [facility] bmi 2021-01-11 08:40:00 35.73 kg/m2 Common S pirit - [facility] oximetry 2021-01-11 08:40:00 95 % Common S pirit - [facility] blood pressure 2021-01-11 08:40:00 162 mm[Hg] [facility] - systolic [facility] blood pressure 2021-01-11 08:40:00 90 mm[Hg] [facility] - diastolic [facility] Systolic blood 2021-09-19 22:03:00 127 mm[Hg] [facility] pressure Diastolic blood 2021-09-19 22:03:00 79 mm[Hg] [facility] pressure Heart rate 2021-09-19 22:03:00 80 /min [facility] Body temperature 2021-09-19 22:03:00 36.72 [facility] Respiratory rate 2021-09-19 22:03:00 18 /min [facility] Oxygen saturation in 2021-09-19 22:03:00 97 /min [facility] Arterial blood by Pulse oximetry Body height 2021-09-19 19:13:00 172.7 cm [facility] Body weight 2021-09-19 19:13:00 108.863 kg [facility] BMI 2021-09-19 19:13:00 36.49 kg/m2 [facility] Temperature Oral (F) 2020-06-15 20:48:00 98.0 F [facility] Heart Rate 2020-06-15 20:48:00 [facility] Rate 2020-06-15 20:48:00 Memori al [place] Systolic (mm Hg) 2020-06-15 20:48:00 Brandon rial [place] Diastolic (mm Hg) 2020-06-15 20:48:00 Mem orial [place] Temperature Oral (F) 2020-06-15 17:22:00 97.6 F [facility] Heart Rate 2020-06-15 17:22:00 [facility] [place] Respitory Rate 2020-06-15 17:22:00 Memori al [place] Systolic (mm Hg) 2020-06-15 17:22:00 Brandon rial [place] Diastolic (mm Hg) 2020-06-15 17:22:00 Mem orial [place] Temperature Oral (F) 2020-06-15 12:55:00 97.6 F [facility] [place] Heart Rate 2020-06-15 12:55:00 [facility] [place] Respitory Rate 2020-06-15 12:55:00 Memori al [place] Systolic (mm Hg) 2020-06-15 12:55:00 Brandon rial [place] Diastolic (mm Hg) 2020-06-15 12:55:00 Mem orial [place] BMI Calculated 2020-06-15 05:09:00 Memori al [place] Height 2020-06-15 04:37:00 172.72 cm [facility] [place] Weight 2020-06-15 04:37:00 [facility] [place] BMI Calculated 2020-06-15 04:37:00 Memori al [place] Heart Rate 2014-02-11 18:33:00 [facility] [place] Systolic (mm Hg) 2014-02-11 18:33:00 Brandon rial [place] Diastolic (mm Hg) 2014-02-11 18:33:00 Mem orial [place] Systolic (mm Hg) 2014-01-21 16:31:00 Brandon rial [place] Heart Rate 2014-01-21 16:31:00 [facility] [place] Diastolic (mm Hg) 2014-01-21 16:31:00 Mem orial [place] Heart Rate 2013-12-24 17:08:00 [facility] [place] Diastolic (mm Hg) 2013-12-24 17:08:00 Mem orial [place] Systolic (mm Hg) 2013-12-24 17:08:00 Brandon rial [place] Systolic (mm Hg) 2013-12-17 17:32:00 Brandon rial [place] Heart Rate 2013-12-17 17:32:00 [facility] [place] Diastolic (mm Hg) 2013-12-17 17:32:00 Mem orial [place] Heart Rate 2013-12-14 20:29:00 [facility] [place] Diastolic (mm Hg) 2013-12-14 20:29:00 Mem orial [place] Respitory Rate 2013-12-14 20:29:00 Memori al [place] Systolic (mm Hg) 2013-12-14 20:29:00 Brandon rial [place] BMI Calculated 2013-12-14 20:29:00 Memori al [place] Weight 2013-12-14 20:29:00 [facility] [place] Height 2013-12-14 20:29:00 172.72 cm [facility] [place] Diastolic (mm Hg) 2013-12-10 14:08:00 Mem orial [place] Systolic (mm Hg) 2013-12-10 14:08:00 Brandon rial [place] Systolic (mm Hg) 2013-12-03 14:19:00 Brandon rial [place] Diastolic (mm Hg) 2013-12-03 14:19:00 Mem orial [place] Diastolic (mm Hg) 2013-11-15 13:38:00 Mem orial [place] Respitory Rate 2013-11-15 13:38:00 Memori al [place] Heart Rate 2013-11-15 13:38:00 [facility] [place] Systolic (mm Hg) 2013-11-15 13:38:00 Brandon rial [place] Temperature Oral (F) 2013-11-15 13:38:00 98.2 F [facility] [place] BMI Calculated 2013-11-15 13:38:00 Memori al [place] Height 2013-11-15 13:38:00 172.72 cm [facility] [place] Weight 2013-11-15 13:38:00 [facility] [place] Heart Rate 2013-11-12 15:07:00 [facility] [place] Diastolic (mm Hg) 2013-11-12 15:07:00 Mem orial [place] Systolic (mm Hg) 2013-11-12 15:07:00 Brandon rial [place] BMI Calculated 2013-07-08 16:51:00 Memori al [place] Height 2013-07-08 16:51:00 172.72 cm [facility] [place] Weight 2013-07-08 16:51:00 [facility] [place] Diastolic (mm Hg) 2013-07-08 16:51:00 Mem orial [place] Systolic (mm Hg) 2013-07-08 16:51:00 Brandon rial [place] Heart Rate 2013-07-08 16:51:00 [facility] [place] Respitory Rate 2013-07-08 16:51:00 Memori al [place] Diastolic (mm Hg) 2013-06-30 17:34:00 Mem orial [place] Systolic (mm Hg) 2013-06-30 17:34:00 Brandon rial [place] Heart Rate 2013-06-28 23:23:00 [facility] [place] Systolic (mm Hg) 2013-06-28 23:23:00 Bradnon rial [place] Diastolic (mm Hg) 2013-06-28 23:23:00 Mem orial [place] Heart Rate 2013-06-20 15:01:00 [facility] [place] Respitory Rate 2013-06-20 15:01:00 Memori al [place] Systolic (mm Hg) 2013-06-20 15:01:00 Brandon rial [place] Diastolic (mm Hg) 2013-06-20 15:01:00 Mem orial [place] Temperature Oral (F) 2013-06-20 15:01:00 98.7 F [facility] [place] Height 2013-06-20 15:00:00 172.72 cm [facility] BMI Calculated 2013-06-20 15:00:00 Memori al [place] Weight 2013-06-20 15:00:00 [facility] [place] Diastolic (mm Hg) 2013-06-07 16:00:00 Mem orial [place] Systolic (mm Hg) 2013-06-07 16:00:00 Brandon rial [place] Heart Rate 2013-06-07 16:00:00 [facility] Heart Rate 2013-06-07 15:07:00 [facility] Procedures Procedure Date / Time Performing Clinician Source Performed XR ELBOW 3+ VW RIGHT 2021-09-19 21:32:47 [facility] XR FINGER 2+ VW RIGHT 2021-09-19 21:32:23 [facility] CBC WITH PLATELET AND 2021-09-19 21:13:00 [facility] DIFFERENTIAL LACTIC ACID LEVEL, SEPSIS 2021-09-19 21:13:00 [facility] - NOW AND REPEAT 2X EVERY 3 HOURS COMPREHENSIVE METABOLIC 2021-09-19 21:13:00 [facility] PANEL ESTIMATED GFR 2021-09-19 21:13:00 [facility] Video urodynamic study 2013-06-20 05:00:00 Roberto levin [place] Laminectomy [facility] Plan of Care Planned Activity Planned Date Details Comments Source Future Scheduled 2022-08-25 Screening for [facility] Test 19:18:20 malignant neoplasm of colon (procedure) [code = 073359376] Future Scheduled 2022-08-25 Screening for [facility] Test 19:18:20 malignant neoplasm of colon (procedure) [code = 907114542] Future Scheduled 2022-08-25 Screening for [facility] Test 19:18:20 malignant neoplasm of colon (procedure) [code = 783515651] Future Scheduled 2022-08-25 COVID-19 VACCINE (#1) [facility] Test 19:18:20 [code = COVID-19 VACCINE (#1)] Future Scheduled 2022-08-25 Pneumococcal Vaccine: [facility] Test 19:18:20 Pediatrics (0 to 5 Years) and At-Risk Patients (6 to 64 Years) (1 - PCV) [code = Pneumococcal Vaccine: Pediatrics (0 to 5 Years) and At-Risk Patients (6 to 64 Years) (1 - PCV)] Future Scheduled 2022-08-25 Hepatitis C screening [facility] Test 19:18:20 (procedure) [code = 929655238] Future Scheduled 2022-08-25 Screening for [facility] Test 19:18:20 malignant neoplasm of colon (procedure) [code = 838901649] Future Scheduled 2022-08-25 Screening for [facility] Test 19:18:20 malignant neoplasm of colon (procedure) [code = 400219953] Future Scheduled 2022-08-25 SHINGLES VACCINES (1 Met [facility] Test 19:18:20 of 2) [code = SHINGLES VACCINES (1 of 2)] Future Scheduled 2022-08-25 INFLUENZA VACCINE Method [facility] Test 19:18:20 [code = INFLUENZA VACCINE] Future Scheduled 2022-06-09 COVID-19 VACCINE (#1) [facility] Test 09:45:16 [code = COVID-19 VACCINE (#1)] Future Scheduled 2022-06-09 Pneumococcal Vaccine: [facility] Test 09:45:16 Pediatrics (0 to 5 Years) and At-Risk Patients (6 to 64 Years) (1 - PCV) [code = Pneumococcal Vaccine: Pediatrics (0 to 5 Years) and At-Risk Patients (6 to 64 Years) (1 - PCV)] Future Scheduled 2022-06-09 Hepatitis C screening [facility] Test 09:45:16 (procedure) [code = 924730381] Future Scheduled 2022-06-09 SHINGLES VACCINES (1 Met [facility] Test 09:45:16 of 2) [code = SHINGLES VACCINES (1 of 2)] Future Scheduled 2022-06-09 COLONOSCOPY SCREENING [facility] Test 09:45:16 [code = COLONOSCOPY SCREENING] Future Scheduled 2022-06-09 INFLUENZA VACCINE Method [facility] Test 09:45:16 [code = INFLUENZA VACCINE] Future Scheduled 2022-06-09 COVID-19 VACCINE (#1) [facility] Test 09:45:16 [code = COVID-19 VACCINE (#1)] Future Scheduled 2022-06-09 Pneumococcal Vaccine: [facility] Test 09:45:16 Pediatrics (0 to 5 Years) and At-Risk Patients (6 to 64 Years) (1 - PCV) [code = Pneumococcal Vaccine: Pediatrics (0 to 5 Years) and At-Risk Patients (6 to 64 Years) (1 - PCV)] Future Scheduled 2022-06-09 Hepatitis C screening [facility] Test 09:45:16 (procedure) [code = 618174715] Future Scheduled 2022-06-09 SHINGLES VACCINES (1 Met [facility] Test 09:45:16 of 2) [code = SHINGLES VACCINES (1 of 2)] Future Scheduled 2022-06-09 Screening for [facility] Test 09:45:16 malignant neoplasm of colon (procedure) [code = 319891191] Future Scheduled 2022-06-09 INFLUENZA VACCINE Method [facility] Test 09:45:16 [code = INFLUENZA VACCINE] Future Scheduled 2021-11-09 HEPATITIS B VACCINES Met [facility] Test 11:01:57 (1 of 3 - 3-dose series) [code = HEPATITIS B VACCINES (1 of 3 - 3-dose series)] Future Scheduled 2021-11-09 COVID-19 VACCINE (#1) [facility] Test 11:01:57 [code = COVID-19 VACCINE (#1)] Future Scheduled 2021-11-09 Pneumococcal Vaccine: [facility] Test 11:01:57 Pediatrics (0 to 5 Years) and At-Risk Patients (6 to 64 Years) (1 - PCV) [code = Pneumococcal Vaccine: Pediatrics (0 to 5 Years) and At-Risk Patients (6 to 64 Years) (1 - PCV)] Future Scheduled 2021-11-09 Hepatitis C screening [facility] Test 11:01:57 (procedure) [code = 971483099] Future Scheduled 2021-11-09 SHINGLES VACCINES (1 Met [facility] Test 11:01:57 of 2) [code = SHINGLES VACCINES (1 of 2)] Future Scheduled 2021-11-09 COLONOSCOPY SCREENING [facility] Test 11:01:57 [code = COLONOSCOPY SCREENING] Future Scheduled 2021-11-09 INFLUENZA VACCINE Method [facility] Test 11:01:57 [code = INFLUENZA VACCINE] Encounters Start End Encounter Admission Attending Care Care Encounter Source Date/Time Date/Time Type Type Clinicians Facility Department ID 2022-08-27 Outpatient Powers, [facility] [id number] Common 13:01:00 Ramon [id number] [facility] 2022-02-04 Outpatient Powers, [facility] [id number] Common 11:07:02 Ramon [id number] [facility] 2021-04-03 [facility] [id number] Common 14:09:15 Ramon [id number] [facility] 2021-04-03 [facility] [id number] Common 12:01:03 [id number] [facility] 2022-08-21 2022-08-21 CORBY Visit Mychal Fuentes 2.16.840. 2.16.840.1 . [id number] [facility] 12:30:00 13:30:00 [id number] S Medical [id number] 2022-06-13 2022-06-13 CORBY Visit Wilner Elise 2.16.840. 2.16.840.1 . [id number] [facility] 18:30:00 19:30:00 [id number] 093663.4.6. [facility] [id number] 2022-06-05 2022-06-05 LISA Geller 2.16.840. 2.16.840.1. CLA [id number] [facility] 17:00:00 18:00:00 Shilo [id number] 223150.[address] [facility] [id number] 2022-03-22 2022-03-22 (TEL) STLMLC STL[facility] [id number] Co mmon 00:00:00 00:00:00 Spirit - [facility] 2022-03-18 2022-03-18 (ESTPT) STLMLC STLMLC [id number] Co mmon 00:00:00 00:00:00 Establishe Spi rit d Patient - [facility] 2022-02-13 2022-02-13 OFFICE STLMLC STLMLC [id number] Co mmon 00:00:00 00:00:00 VISIT EST Spir it PT LEVEL 3 - [facility] 2022-02-06 2022-02-06 OFFICE STLMLC STLMLC [id number] Co mmon 00:00:00 00:00:00 VISIT EST Spir it PT LEVEL 3 - [facility] 2022-01-02 2022-01-02 CAV Duyen 2.16.840. 2.16.840.1. CLA [id number] [facility] 18:00:00 19:00:00 Shilo [id number]. [id number]. [address] [id number] [id number] 2021-12-25 2021-12-25 [facility] [id number] [facility] 00:00:00 00:00:00 1019 Medica l Group 2021-12-25 2021-12-25 Outpatient Daniels_b [facility] [address] Devoted 00:00:00 00:00:00 0506 Medica l Group 2021-09-24 2021-09-24 Travel 1.2.840.1 [id number] Methodi 00:00:00 00:00:[address] 3.430.2.7 0.2.7.3.698 Ho spita .[id number] 084.8 l .8 2021-09-24 2021-09-24 Travel 1.2.840.1 [id number] [id number] Methodi 00:00:00 00:00:[address] 3.430.2.7 0.2.7.3.698 Ho spita .3.956167 084.8 l .8 2021-09-20 2021-09-20 Outpatient Tello_Devante [facility] [id number] -2021 Devoted 03:38:00 03:38:00 0715 Medica l Group 2021-09-19 2021-09-19 Emergency Amato, 1.2.840.1 [id number] Methodi 15:47:00 18:31:[address] 3.430.2.7 Hospit a .3.006009 l .8 2021-09-19 2021-09-19 Emergency Amato, 1.2.840.1 [id number] Methodi 15:47:00 18:31:[address] 3.430.2.7 Hospit a .3.611891 l .8 2021-09-19 2021-09-19 (TEL) [facility] [id number] Co mmon 00:00:00 00:00:00 [facility] 2021-09-19 2021-09-19 Travel 1.2.840.1 1.2.705.232 [id number] [id number] Methodi 00:00:00 00:00:[address] 3.430.2.7 0.2.7.3.698 [facility] .3.695641 084.8 l .8 2021-09-19 2021-09-19 Travel 1.2.840.1 1.2.355.849 2380 033206 Methodi 00:00:00 00:00:[address] 3.430.2.7 0.2.7.3.698 Ho spita [id number] 084.8 l .8 2021-09-18 2021-09-18 (TEL) STLMLC STLMLC [id number] Co mmon 00:00:00 00:00:00 [facility] 2021-07-05 2021-07-05 CORBY Avis 2.16.840. 2.16.840.1. CLAC [id number] Devoted 16:30:00 17:00:00 Jackson 1.494814. 613957.4.6. ZYU [facility] 4.6.53448 [id number] 2021-06-24 2021-06-24 CORBY Avis 2.16.840. 2.16.840.1. CLAC [id number] Devoted 16:30:00 17:00:00 Jackson 1.952268. 513859.4.6. CAU [facility] 4.6.72387 [id number] 2021-06-21 2021-06-21 CORBY Avis 2.16.840. 2.16.840.1. CLAC [id number] Devoted 14:00:00 14:30:00 Jackson 1.577619. 779947.4.6. 5JR Medical 4.6.77118 [id number] 2021-06-14 2021-06-14 CORBY Avis 2.16.840. 2.16.840.1. CLAC [id number] Devoted 14:30:00 15:30:00 Jackson 1.241005. 478519.4.6. 85U Medical 4.6.17760 [id number] 2021-04-23 2021-04-23 Outpatient Trevino_M DMG DMG 69235 -2021 Devoted 08:00:00 08:00:00 0215 Medica l Group 2021-03-21 2021-03-21 CAV Nell 2.16.840. 2.16.840.1. CLAC [id number] Devoted 16:30:00 17:30:00 Joan 1.772758. 822379.4.6. Z4G Medical 4.6.41178 [id number] 2021-03-12 2021-03-12 Outpatient Trevino_M DMG G 05531 -2022 Devoted 03:11:00 03:11:00 0104 Medica l Group 2021-02-11 2021-02-11 Outpatient CURRY_S DMG [facility] [id number] 021 Devoted 05:35:00 05:35:00 1206 Medica l Group 2021-02-11 2021-02-11 OFFICE STLMLC STLMLC [id number] Co mmon 00:00:00 00:00:00 VISIT EST Spir it PT LEVEL 3 - [facility] 2021-01-11 2021-01-11 OFFICE STLMLC STLMLC [id number] Co mmon 00:00:00 00:00:00 VISIT EST Spir it PT LEVEL 3 - [facility] 2020-06-15 2020[facility]06[id number] Memoria 05:09:00 00:09:00 n tamie Caruso 98 l [facility] 2020-06-15 2020-06-16 [facility] [id number] Memoria 05:09:00 00:09:00 n tamie Caruso 98 l [facility] 2020-06-15 2020-06-15 [facility] Memoria 00:09:00 19:09:00 MANDEEP Chowdhury [facility] 2020-06-15 2020-06-15 [facility] [id number] 00:09:00 19:09:00 Mandeep Mchugh 2020-02-14 2020-02-14 Outpatient STLMLC STLMLC [id number] Common 00:00:00 00:00:00 [facility] 2020-02-07 2020-02-07 Outpatient STLMLC STLMLC [id number] Common 00:00:00 00:00:00 [facility] 2020-01-17 2020-01-17 Outpatient STLMLC STLMLC [id number] Common 00:00:00 00:00:00 [facility] 2020-01-16 2020-01-16 Outpatient STLMLC STLMLC [id number] Common 00:00:00 00:00:00 [facility] 2020-01-09 2020-01-09 [facility] [id number] Common 00:00:00 00:00:00 [facility] 2014-01-21 2014-02-20 Tots nullFlavo [facility] [id number] Memoria 14:00:00 05:59:00 Therapy r [place] 09 l [facility] [place] 2014-01-21 2014-02-20 Tots nullFlavo [facility] [id number] Memoria 14:00:00 05:59:00 Therapy r [place] 09 l [facility] [place] 2014-01-21 2014-02-19 Outpatient Tastard, 2.16.840. 2.16.840.1. [id number] 08:00:00 23:59:00 Birdie Amparo 1.464094. 942373.3.61 09 3.615.0.1 5.0.202 86 0325-11-15 2014-02-19 Outpatient [place], 2.16.840. 2.16.840.1. [id number] 08:00:00 23:59:00 Birdie Amparo 1.205391. 907176.3.61 09 3.615.0.1 5.0.368 27 6769-11-15 2014-02-19 Outpatient [place], 2.16.840. 2.16.840.1. [id number] 08:00:00 23:59:00 Birdie Amparo 1.338136. 655057.3.61 09 3.615.0.1 5.0.907 43 7908-10-11 2014-01-16 Tots nullFlavo [facility] [id number] Memoria 13:00:00 05:59:00 Therapy r [place] 08 l [facility] [place] 2013-12-17 2014-01-16 Tots nullFlavo [facility] [id number] Memoria 13:00:00 05:59:00 Therapy r [place] 08 l [facility] [place] 2013-12-17 2014-01-15 Outpatient Tastard, 2.16.840. 2.16.840.1. [id number] 08:00:00 23:59:00 Birdie Amparo 1.099813. 414014.3.61 08 3.615.0.1 5.0.909 60 9096-10-08 2013-12-15 Outpatient nullFlavo [facility] [id number] Memoria 19:55:00 04:59:00 r [place] 11 l ADEN Caruso 2013-12-14 2013-12-15 Outpatient nullFlavo [facility] [id number] Memoria 19:55:00 04:59:00 r [place] 11 l ADEN Caruso 2013-12-14 2013-12-14 Outpatient Nicholas, 2.16.840. 2.16.840.1. 3 [id number] 14:55:00 23:59:00 Gamaliel 1.995999. 567658.3.61 11 Daniel 3.615.0.1 5.0.449 90 0418-09-06 2013-12-12 Tots nullFlavo [facility] [id number] Memoria 13:00:00 04:59:00 Therapy r [place] 07 l ADEN Caruso 2013-11-12 2013-12-12 Tots nullFlavo [facility] [id number] Memoria 13:00:00 04:59:00 Therapy r [place] 07 l ADEN Caruso 2013-11-12 2013-12-11 Outpatient Tastard, 2.16.840. 2.16.840.1. [id number] 08:00:00 23:59:00 Birdie Amparo 1.325727. 294180.3.61 07 3.615.0.1 5.0.461 09 4576-09-09 2013-11-16 Outpatient nullFlavo [facility] [id number] Memoria 13:01:00 04:59:00 r [place] 10 l PASCUALR [place] 2013-11-15 2013-11-16 Outpatient nullFlavo [facility] [id number] Memoria 13:01:00 04:59:00 r [place] 10 l PASCUALR [place] 2013-11-15 2013-11-15 Outpatient Michelle, 2.16.840. 2.16.840.1. 3 [id number] 08:01:00 23:59:00 Cori Jennifer 1.844287. 935829.3.61 10 3.615.0.1 5.0.948 39 7207-08-02 2013-11-07 Tots nullFlavo [facility] [id number] Memoria 13:00:00 04:59:00 Therapy r [place] 06 irais Caruso 2013-10-08 2013-11-07 Tots nullFlavo [facility] [id number] Memoria 13:00:00 04:59:00 Therapy r [place] 06 irais Caruso 2013-10-08 2013-11-06 Outpatient Tastard, 2.16.840. 2.16.840.1. [id number] 08:00:00 23:59:00 Birdie Amparo 1.190631. 406914.3.61 06 3.615.0.1 5.0.454 98 2258-07-05 2013-10-10 Tots nullFlavo [facility] [id number] Memoria 13:00:00 04:59:00 Therapy r [place]ady Caruso 2013-09-10 2013-10-10 Tots nullFlavo [facility] [id number] Memoria 13:00:00 04:59:00 Therapy r [place] Caruso 2013-09-10 2013-10-09 Outpatient Tastard, 2.16.840. 2.16.840.1. [id number] 08:00:00 23:59:00 Birdie Amparo 1.414869. 200419.3.61 05 3.615.0.1 5.0.368 16 0011-05-02 2013-07-09 Outpatient nullFlavo [facility] [id number] Memoria 16:26:00 04:59:00 r [place] Caruso 2013-07-08 2013-07-09 Outpatient nullFlavo [facility] [id number] Memoria 16:26:00 04:59:00 r [place] Caruso 2013-07-08 2013-07-08 Outpatient Tastard, 2.16.840. 2.16.840.1. [id number] 11:26:00 23:59:00 Birdie Amparo 1.091876. 503974.3.61 04 3.615.0.1 5.0.907 53 8929-04-01 2013-07-07 Tots nullFlavo [facility] [id number] Memoria 14:13:00 04:59:00 Therapy r [place] 03 l TIRR [place] 2013-06-07 2013-07-07 Tots nullFlavo [facility] [id number] Memoria 14:13:00 04:59:00 Therapy r [place] 03 l TIRR [place] 2013-06-07 2013-07-06 Outpatient Tastard, 2.16.840. 2.16.840.1. [id number] 09:13:00 23:59:00 Birdie Amparo 1.354276. 910543.3.61 03 3.615.0.1 5.0.750 91 9228-04-14 2013-06-21 Outpatient nullFlavo [facility] [id number] Memoria 14:43:00 04:59:00 r [place] 02 l TIRR [place] 2013-06-20 2013-06-21 Outpatient nullFlavo [facility] [id number] Memoria 14:43:00 04:59:00 r [place] 02 l TIRR [place] 2013-06-20 2013-06-20 Outpatient Bertini, 2.16.840. 2.16.840.1. [id number] 09:43:00 23:59:00 Tung Salguero 1.176538. 683969.3.61 02 3.615.0.1 5.0.101 01 Results Test Description Test Time Test Comments Results Result Comments Source URINE AND STOOL 2020-06-15 16:30:00 Test Item Value Reference Range Interpretation Comme nts UA Nitrite (test code = UA Nitrite) Positive *ABN*(06/15/20 11:30 AM) [facility] AND [id number] 16:30:00 Test Item Value Reference Range Interpretation Comments UA Leuk Est (test code Large *ABN*(06/15/20 = UA Leuk Est) 11:30 AM) [facility] AND [id number] 16:30:00 Test Item Value Reference Range Interpretation Comments UA WBC (test code = 84 See_Comment [Automa faye message] The UA WBC) system which ge nerated this result transmit faye reference range : <=5. The reference range was not used to interpr et this result as nathaly l/abnormal. [facility] [id number] 16:30:00 Test Item Value Reference Range Interpretation Comments UA RBC (test code = 9 See_Comment [Automa faye message] The UA RBC) system which ge nerated this result transmit faye reference range : <=2. The reference range was not used to interpr et this result as nathaly l/abnormal. [facility] [id number] 16:30:00 Test Item Value Reference Range Interpretation Comments UA Bacteria (test code = UA Moderate /HPF Bacteria) [facility] AND [id number] 16:30:00 Test Item Value Reference Range Interpretation Comments UA Sq Epi (test code = UA Sq Epi) None Seen [facility] AND [id number] 16:30:00 Test Item Value Reference Range Interpretation Comments UA Color (test code = UA Color) Chani [facility] AND [id number] 16:30:00 Test Item Value Reference Range Interpretation Comments UA Glucose (test code = UA Glucose) 500 [facility] AND [id number] 16:30:00 Test Item Value Reference Range Interpretation Comments UA Urobilinogen (test code = UA <=1.0 mg/dL 0.1-1.0 Urobilinogen) [facility] DominiqueAZIDIME:SUSC:PT:ISOLATE:ORDQN:[id number] 16:30:00 Test Item Value Reference Range Interpretation Comments Culture: Urine (test >100,000 CFU/mL Proteus code = Culture: mirabilis >100,000 Urine) CFU/mL Skin [facility] CenterJimmieAZIDIME:SUSC:PT:ISOLATE:ORDQN:[id number] 16:30:00 Test Item Value Reference Range Interpretation Comments Proteus mirabilis (test Proteus mirabilis code = Proteus mirabilis) [facility] AND [id number] 16:30:00 Test Item Value Reference Range Interpretation Comments UA Turbidity (test code Marked *ABN*(06/15/20 = UA Turbidity) 11:30 AM) [facility] AND [id number] 16:30:00 Test Item Value Reference Range Interpretation Comments UA Spec Grav (test code = UA Spec 1.022 1 Grav) [facility] AND [id number] 16:30:00 Test Item Value Reference Range Interpretation Comments UA pH (test code = UA pH) 7.0 1 5.0-8.0 [facility] [id number] 16:30:00 Test Item Value Reference Range Interpretation Comments UA Protein (test code = UA Protein) 100 mg/dL [facility] [id number] 16:30:00 Test Item Value Reference Range Interpretation Comments UA Ketones (test code = UA Trace mg/dL Ketones) [facility] [id number] 16:30:00 Test Item Value Reference Range Interpretation Comments UA Bili (test code = Negative *NA*(06/15/20 UA Bili) 11:30 AM) [facility] [id number] 16:30:00 Test Item Value Reference Range Interpretation Comments UA Blood (test code = Small *ABN*(06/15/20 UA Blood) 11:30 AM) [facility] [id number] 16:30:00 Test Item Value Reference Range Interpretation Comments UA Nitrite (test code Positive *ABN*(06/15/20 = UA Nitrite) 11:30 AM) [facility] AND [id number] 16:30:00 Test Item Value Reference Range Interpretation Comments UA Leuk Est (test code Large *ABN*(06/15/20 = UA Leuk Est) 11:30 AM) [facility] [id number] 16:30:00 Test Item Value Reference Range Interpretation Comments UA WBC (test code = 84 See_Comment [Automa faye message] The UA WBC) system which ge nerated this result transmit faye reference range : <=5. The reference range was not used to interpr et this result as nathaly l/abnormal. [facility] AND [id number] 16:30:00 Test Item Value Reference Range Interpretation Comments UA RBC (test code = 9 See_Comment [Automa faye message] The UA RBC) system which ge nerated this result transmit faye reference range : <=2. The reference range was not used to interpr et this result as nathaly l/abnormal. [facility] AND [id number] 16:30:00 Test Item Value Reference Range Interpretation Comments UA Bacteria (test code = UA Moderate /HPF Bacteria) [facility] AND [id number] 16:30:00 Test Item Value Reference Range Interpretation Comments UA Sq Epi (test code = UA Sq Epi) None Seen [facility] AND [id number] 16:30:00 Test Item Value Reference Range Interpretation Comments UA Color (test code = UA Color) Chani [facility] AND [id number] 16:30:00 Test Item Value Reference Range Interpretation Comments UA Glucose (test code = UA Glucose) 500 [facility] AND [id number] 16:30:00 Test Item Value Reference Range Interpretation Comments UA Urobilinogen (test code = UA <=1.0 mg/dL 0.1-1.0 Urobilinogen) [facility]ATE:ORDQN:[id number] 16:30:00 Test Item Value Reference Range Interpretation Comments Culture: Urine (test >100,000 CFU/mL Proteus code = Culture: mirabilis >100,000 Urine) CFU/mL Skin Emily [facility]ID[facility]USC:PT:ISOLATE:ORDQN:[id number] 16:30:00 Test Item Value Reference Range Interpretation Comments Proteus mirabilis (test Proteus mirabilis code = Proteus mirabilis) [facility] AND [id number] 16:30:00 Test Item Value Reference Range Interpretation Comments UA Turbidity (test code Marked *ABN*(06/15/20 = UA Turbidity) 11:30 AM) [facility] AND [id number] 16:30:00 Test Item Value Reference Range Interpretation Comments UA Spec Grav (test code = UA Spec 1.022 1 Grav) [facility] AND [id number] 16:30:00 Test Item Value Reference Range Interpretation Comments UA pH (test code = UA pH) 7.0 1 5.0-8.0 [facility] AND [id number] 16:30:00 Test Item Value Reference Range Interpretation Comments UA Protein (test code = UA Protein) 100 mg/dL [facility] AND [id number] 16:30:00 Test Item Value Reference Range Interpretation Comments UA Ketones (test code = UA Trace mg/dL Ketones) [facility] AND [id number] 16:30:00 Test Item Value Reference Range Interpretation Comments UA Bili (test code = Negative *NA*(06/15/20 UA Bili) 11:30 AM) [facility] [id number] 16:30:00 Test Item Value Reference Range Interpretation Comments UA Blood (test code = Small *ABN*(06/15/20 UA Blood) 11:30 AM) [facility] [id number] 16:30:00 Test Item Value Reference Range Interpretation Comments UA Nitrite (test code Positive *ABN*(06/15/20 = UA Nitrite) 11:30 AM) [facility] [id number] 16:30:00 Test Item Value Reference Range Interpretation Comments UA Leuk Est (test code Large *ABN*(06/15/20 = UA Leuk Est) 11:30 AM) [facility] [id number] 16:30:00 Test Item Value Reference Range Interpretation Comments UA WBC (test code = 84 See_Comment [Automa faye message] The UA WBC) system which ge nerated this result transmit faye reference range : <=5. The reference range was not used to interpr et this result as nathaly l/abnormal. [facility] [id number] 16:30:00 Test Item Value Reference Range Interpretation Comments UA RBC (test code = 9 See_Comment [Automa faye message] The UA RBC) system which ge nerated this result transmit faye reference range : <=2. The reference range was not used to interpr et this result as nathaly l/abnormal. [facility] [id number] 16:30:00 Test Item Value Reference Range Interpretation Comments UA Bacteria (test code = UA Moderate /HPF Bacteria) [facility] [id number] 16:30:00 Test Item Value Reference Range Interpretation Comments UA Sq Epi (test code = UA Sq Epi) None [facility]en [facility] [id number] 16:30:00 Test Item Value Reference Range Interpretation Comments UA Color (test code = UA Color) [facility] [id number] 16:30:00 Test Item Value Reference Range Interpretation Comments UA Glucose (test code = UA Glucose) 500 [facility] [id number] 16:30:00 Test Item Value Reference Range Interpretation Comments UA Urobilinogen (test code = UA <=1.0 mg/dL 0.1-1.0 Urobilinogen) [facility]:SUSC:PT:ISOLATE:ORDQN:[id number] 16:30:00 Test Item Value Reference Range Interpretation Comments Culture: Urine (test >100,000 CFU/mL Proteus code = Culture: mirabilis >100,000 Urine) CFU/mL Skin Emily [facility]:SUSC:PT:ISOLATE:ORDQN:[id number] 16:30:00 Test Item Value Reference Range Interpretation Comments Proteus mirabilis (test Proteus mirabilis code = Proteus mirabilis) [facility] AND [id number] 16:30:00 Test Item Value Reference Range Interpretation Comments UA Turbidity (test code Marked *ABN*(06/15/20 = UA Turbidity) 11:30 AM) [facility] AND [id number] 16:30:00 Test Item Value Reference Range Interpretation Comments UA Spec Grav (test code = UA Spec 1.022 1 Grav) [facility] AND [id number] 16:30:00 Test Item Value Reference Range Interpretation Comments UA pH (test code = UA pH) 7.0 1 5.0-8.0 [facility] AND [id number] 16:30:00 Test Item Value Reference Range Interpretation Comments UA Protein (test code = UA Protein) 100 mg/dL [facility] AND [id number] 16:30:00 Test Item Value Reference Range Interpretation Comments UA Ketones (test code = UA Trace mg/dL Ketones) [facility] AND [id number] 16:30:00 Test Item Value Reference Range Interpretation Comments UA Bili (test code = Negative *NA*(06/15/20 UA Bili) 11:30 AM) [facility] AND [id number] 16:30:00 Test Item Value Reference Range Interpretation Comments UA Blood (test code = Small *ABN*(06/15/20 UA Blood) 11:30 AM) [facility] AND [id number] 16:30:00 Test Item Value Reference Range Interpretation Comments UA Blood (test code = Small *ABN*(06/15/20 UA Blood) 11:30 AM) [facility] AND [id number] 16:30:00 Test Item Value Reference Range Interpretation Comments UA Nitrite (test code Positive *ABN*(06/15/20 = UA Nitrite) 11:30 AM) [facility] [id number] 16:30:00 Test Item Value Reference Range Interpretation Comments UA Leuk Est (test code Large *ABN*(06/15/20 = UA Leuk Est) 11:30 AM) [facility] AND [id number] 16:30:00 Test Item Value Reference Range Interpretation Comments UA WBC (test code = 84 See_Comment [Automa faye message] The UA WBC) system which ge nerated this result transmit faye reference range : <=5. The reference range was not used to interpr et this result as nathaly l/abnormal. [facility] AND [id number] 16:30:00 Test Item Value Reference Range Interpretation Comments UA RBC (test code = 9 See_Comment [Automa faye message] The UA RBC) system which ge nerated this result transmit faye reference range : <=2. The reference range was not used to interpr et this result as nathaly l/abnormal. [facility] AND [id number] 16:30:00 Test Item Value Reference Range Interpretation Comments UA Bacteria (test code = UA Moderate /HPF Bacteria) [facility] AND [id number] 16:30:00 Test Item Value Reference Range Interpretation Comments UA Sq Epi (test code = UA Sq Epi) None Seen [facility] AND [id number] 16:30:00 Test Item Value Reference Range Interpretation Comments UA Color (test code = UA Color) Chani [facility] AND [id number] 16:30:00 Test Item Value Reference Range Interpretation Comments UA Glucose (test code = UA Glucose) 500 [facility] AND [id number] 16:30:00 Test Item Value Reference Range Interpretation Comments UA Urobilinogen (test code = UA <=1.0 mg/dL 0.1-1.0 Urobilinogen) [facility] westZAKFTAZIDIME:SUSC:PT:ISOLATE:ORDQN:[id number] 16:30:00 Test Item Value Reference Range Interpretation Comments Culture: Urine (test >100,000 CFU/mL Proteus code = Culture: mirabilis >100,000 Urine) CFU/mL Skin Emily [facility] CenterJhoanaRADHAIDIME:SUSC:PT:ISOLATE:ORDQN:[id number] 16:30:00 Test Item Value Reference Range Interpretation Comments Proteus mirabilis (test Proteus mirabilis code = Proteus mirabilis) [facility] AND [id number] 16:30:00 Test Item Value Reference Range Interpretation Comments UA Turbidity (test code Marked *ABN*(06/15/20 = UA Turbidity) 11:30 AM) [facility] AND [id number] 16:30:00 Test Item Value Reference Range Interpretation Comments UA Spec Grav (test code = UA Spec 1.022 1 Grav) [facility] AND [id number] 16:30:00 Test Item Value Reference Range Interpretation Comments UA pH (test code = UA pH) 7.0 1 5.0-8.0 [facility] AND [id number] 16:30:00 Test Item Value Reference Range Interpretation Comments UA Protein (test code = UA Protein) 100 mg/dL [facility] AND [id number] 16:30:00 Test Item Value Reference Range Interpretation Comments UA Ketones (test code = UA Trace mg/dL Ketones) [facility] AND [id number] 16:30:00 Test Item Value Reference Range Interpretation Comments UA Bili (test code = Negative *NA*(06/15/20 UA Bili) 11:30 AM) [facility] [id number] 10:57:00 Test Item Value Reference Range Interpretation Comments Troponin-I (test code no gt See_Comment [Auto mated message] The = Troponin-I) system which g enerated this result transmit faye reference range : <=0.40. The reference r rodrigo was not used to interpr et this result as nathaly l/abnormal. [facility] [id number] 10:57:00 Test Item Value Reference Range Interpretation Comments Troponin-I (test code no gt See_Comment [Auto mated message] The = Troponin-I) system which g enerated this result transmit faye reference range : <=0.40. The reference r rodrigo was not used to interpr et this result as nathaly l/abnormal. [facility] [id number] 10:57:00 Test Item Value Reference Range Interpretation Comments Troponin-I (test code no gt See_Comment [Auto mated message] The = Troponin-I) system which g enerated this result transmit faye reference range : <=0.40. The reference r rodrigo was not used to interpr et this result as nathaly l/abnormal. [facility] [id number] 10:57:00 Test Item Value Reference Range Interpretation Comments Troponin-I (test code no gt See_Comment [Auto mated message] The = Troponin-I) system which g enerated this result transmit faye reference range : <=0.40. The reference r rodrigo was not used to interpr et this result as nathaly l/abnormal. [facility] [id number] 06:53:00 Test Item Value Reference Range Interpretation Comments Troponin-I (test code no gt See_Comment [Auto mated message] The = Troponin-I) system which g enerated this result transmit faye reference range : <=0.40. The reference r rodrigo was not used to interpr et this result as nathaly l/abnormal. [id number] 06:53:00 Test Item Value Reference Range Interpretation Comments Trig (test code = Trig) 330 [id number] 06:53:00 Test Item Value Reference Range Interpretation Comments Chol (test code = Chol) 174 [id number] 06:53:00 Test Item Value Reference Range Interpretation Comments HDL (test code = HDL) 28 [id number] 06:53:00 Test Item Value Reference Range Interpretation Comments CHD Risk (test code = CHD Risk) 6.21 1 4.00-7.30 [id number] 06:53:00 Test Item Value Reference Range Interpretation Comments LDL (Calculated) (test code = LDL 80 (Calculated)) [place] 197721-04-09 06:53:00 Test Item Value Reference Range Interpretation Comments VLDL (test code = VLDL) 66 1 [facility]annCARDIAC [id number] 06:53:00 Test Item Value Reference Range Interpretation Comments Troponin-I (test code no gt See_Comment [Auto mated message] The = Troponin-I) system which g enerated this result transmit faye reference range : <=0.40. The reference r rodrigo was not used to interpr et this result as nathaly l/abnormal. [facility] [id number] 06:53:00 Test Item Value Reference Range Interpretation Comments Trig (test code = Trig) 330 [facility] [id number] 06:53:00 Test Item Value Reference Range Interpretation Comments Chol (test code = Chol) 174 [facility] [id number] 06:53:00 Test Item Value Reference Range Interpretation Comments HDL (test code = HDL) 28 [facility] [id number] 06:53:00 Test Item Value Reference Range Interpretation Comments CHD Risk (test code = CHD Risk) 6.21 1 4.00-7.30 [facility] [id number] 06:53:00 Test Item Value Reference Range Interpretation Comments LDL (Calculated) (test code = LDL 80 (Calculated)) [facility] [id number] 06:53:00 Test Item Value Reference Range Interpretation Comments VLDL (test code = VLDL) 66 1 [facility] [id number] 06:53:00 Test Item Value Reference Range Interpretation Comments Troponin-I (test code no gt See_Comment [Auto mated message] The = Troponin-I) system which g enerated this result transmit faye reference range : <=0.40. The reference r rodrigo was not used to interpr et this result as nathaly l/abnormal. [facility] [id number] 06:53:00 Test Item Value Reference Range Interpretation Comments Trig (test code = Trig) 330 [facility] CenterXurkqktLFKLCN4070-61-53 06:53:00 Test Item Value Reference Range Interpretation Comments Chol (test code = Chol) 174 [facility] [id number] 06:53:00 Test Item Value Reference Range Interpretation Comments HDL (test code = HDL) 28 [facility] [id number] 06:53:00 Test Item Value Reference Range Interpretation Comments CHD Risk (test code = CHD Risk) 6.21 1 4.00-7.30 [facility] [id number] 06:53:00 Test Item Value Reference Range Interpretation Comments LDL (Calculated) (test code = LDL 80 (Calculated)) [facility] CenterVvsirvtGYYTMK6028-12-73 06:53:00 Test Item Value Reference Range Interpretation Comments VLDL (test code = VLDL) 66 1 [facility]annCARDIAC [id number] 06:53:00 Test Item Value Reference Range Interpretation Comments Troponin-I (test code no gt See_Comment [Auto mated message] The = Troponin-I) system which g enerated this result transmit faye reference range : <=0.40. The reference r rodrigo was not used to interpr et this result as nathaly l/abnormal. [facility] [id number] 06:53:00 Test Item Value Reference Range Interpretation Comments Trig (test code = Trig) 330 [facility] CenterWzqimvlBMONDZ3009-09-75 06:53:00 Test Item Value Reference Range Interpretation Comments Chol (test code = Chol) 174 [facility] CenterNepmnebGVLVYS2819-86-07 06:53:00 Test Item Value Reference Range Interpretation Comments HDL (test code = HDL) 28 [facility] [id number] 06:53:00 Test Item Value Reference Range Interpretation Comments CHD Risk (test code = CHD Risk) 6.21 1 4.00-7.30 [facility] [id number] 06:53:00 Test Item Value Reference Range Interpretation Comments LDL (Calculated) (test code = LDL 80 (Calculated)) [facility] [id number] 06:53:00 Test Item Value Reference Range Interpretation Comments VLDL (test code = VLDL) 66 1 [facility] RockBL[facility] [id number] 14:28:00 Test Item Value Reference Range Interpretation Comments CULTURE (BEAKER) (test No growth in 5 days code = 1095) POCT-GLUCOSE [id number] 12:04:00 Test Item Value Reference Range Interpretation Comments POC-GLUCOSE METER 179 mg/dL 70-110 H TESTED AT [facility] 6720 (BEAKER) (test code = [place] 1538) [address] BASIC METABOLIC [id number] 09:51:00 Test Item Value Reference Range Interpretation [...] PATIEN TS. CBC W/PLT COUNT & AUTO [id number] 09:20:00 Test Item Value Reference Range Interpretation [...] L 0.00-0.20 (test code = 417) 0.00POCT-GLUCOSE [id number] 07:15:00 Test Item Value Reference Range Interpretation Comments POC-GLUCOSE METER 246 mg/dL 70-110 H TESTED AT [place] [address] ([facility]) (test code = [facility] 1538) [address] POCT-GLUCOSE [id number] 21:12:00 Test Item Value Reference Range Interpretation Comments POC-GLUCOSE METER 89 mg/dL 70-110 TESTED AT [place] [address] ([facility]) (test code = [facility] [address] 1538) POCT-GLUCOSE [id number] 17:12:00 Test Item Value Reference Range Interpretation Comments POC-GLUCOSE METER 217 mg/dL 70-110 H TESTED AT [place] [address] ([facility]) (test code = [facility] Tamie [facility] 1538) [address] URINE [id number] 12:07:00 Test Item Value Reference Range Interpretation Comments CULTURE (BEAKER) (test <10,000 col/mL skin code = 1095) emily POCT-GLUCOSE [id number] 11:30:00 Test Item Value Reference Range Interpretation Comments POC-GLUCOSE METER 205 mg/dL 70-110 H TESTED AT [place] [address] (BEAKER) (test code = AD[place] 1538) [address] POCT-GLUCOSE [id number] 07:36:00 Test Item Value Reference Range Interpretation Comments POC-GLUCOSE METER 195 mg/dL 70-110 H TESTED AT [facility] 6720 (BEAKER) (test code = [place] 1538) [address] CBC W/PLT COUNT & AUTO [id number] 05:14:00 Test Item Value Reference Range Interpretation [...] 0.00-0.20 (test code = 417) 0.00BASIC METABOLIC [id number] 05:14:00 Test Item Value Reference Range Interpretation [...] NOT APPLICABLE FOR DIALYSIS PATIEN TS. POCT-GLUCOSE [id number] 21:04:00 Test Item Value Reference Range Interpretation Comments POC-GLUCOSE METER 178 mg/dL 70-110 H TESTED AT [facility] 6720 (BEAKER) (test code = [facility] Tamie [facility] 1538) [address] POCT-GLUCOSE [id number] 17:07:00 Test Item Value Reference Range Interpretation Comments POC-GLUCOSE METER 88 mg/dL 70-110 TESTED AT [facility] 6720 (BEAKER) (test code = [facility] Tamie [facility] [address] 1538) POCT-GLUCOSE [id number] 12:30:00 Test Item Value Reference Range Interpretation Comments POC-GLUCOSE METER 107 mg/dL 70-110 TESTED AT [place] [address] (BEAKER) (test code = [place] 1538) [address] POCT-GLUCOSE [id number] 07:46:00 Test Item Value Reference Range Interpretation Comments POC-GLUCOSE METER 169 mg/dL 70-110 H TESTED AT [facility] 6720 (BEAKER) (test code = [place] 1538) [address] CBC W/PLT COUNT & AUTO [id number] 07:42:00 Test Item Value Reference Range Interpretation [...] 0.00-0.20 (test code = 417) 0.00BASIC METABOLIC [id number] 06:13:00 Test Item Value Reference Range Interpretation [...] NOT APPLICABLE FOR DIALYSIS PATIEN TS. POCT-GLUCOSE [id number] 22:12:00 Test Item Value Reference Range Interpretation Comments POC-GLUCOSE METER 238 mg/dL 70-110 H TESTED AT [facility] 6720 (BEAKER) (test code = [place] 1538) [address] POCT-GLUCOSE [id number] 17:25:00 Test Item Value Reference Range Interpretation Comments POC-GLUCOSE METER 102 mg/dL 70-110 TESTED AT [facility] 6720 (BEAKER) (test code = [place] 1538) [address] URINALYSIS W/ [id number] 12:50:00 Test Item Value Reference Range Interpretation [...] /HPF SOURCE(BEAKER) (test code = 2795) POCT-GLUCOSE [id number] 12:04:00 Test Item Value Reference Range Interpretation Comments POC-GLUCOSE METER 226 mg/dL 70-110 H TESTED AT [facility] 67 (BEAKER) (test code = [place] 1538) [address] POCT-GLUCOSE [id number] 08:00:00 Test Item Value Reference Range Interpretation Comments POC-GLUCOSE METER 300 mg/dL 70-110 H TESTED AT [place] [id number] (BEAKER) (test code = [place] 1538) [address] BASIC METABOLIC [id number] 06:50:00 Test Item Value Reference Range Interpretation [...] PATIEN TS. CBC W/PLT COUNT & AUTO [id number] 06:01:00 Test Item Value Reference Range Interpretation [...] L 0.00-0.20 (test code = 417) 0.00POCT-GLUCOSE [id number] 21:25:00 Test Item Value Reference Range Interpretation Comments POC-GLUCOSE METER 279 mg/dL 70-110 H TESTED AT [facility] 6720 (BEAKER) (test code = [place] 1538) [address] HEMOGLOBIN [id number] 21:13:00 Test Item Value Reference Range Interpretation Comments HEMOGLOBIN A1C (BEAKER) (test code = 10.7 % 4.3-6.1 H 368) CBC W/PLT COUNT & AUTO [id number] 20:47:00 Test Item Value Reference Range Interpretation [...] L 0.00-0.20 (test code = 417) 0.00POCT-GLUCOSE [id number] 18:31:00 Test Item Value Reference Range Interpretation Comments POC-GLUCOSE METER 205 mg/dL 70-110 H TESTED AT [facility] 6720 (BEAKER) (test code = [facility] [place] 1538) [address] URINE [id number] 17:34:00 Test Item Value Reference Range Interpretation Comments [facility] (test code = Time) [id number] 17:34:00 Test Item Value Reference Range Interpretation Comments Time (test code = Time) 12 min [facility] [id number] 17:34:00 Test Item Value Reference Range Interpretation Comments Time (test code = Time) 14 min [facility] [id number] 17:34:00 Test Item Value Reference Range Interpretation Comments Time (test code = Time) 8 min [facility] [id number] 17:34:00 Test Item Value Reference Range Interpretation Comments Time (test code = Time) 5 min [facility] [id number] 17:34:00 Test Item Value Reference Range Interpretation Comments Time (test code = Time) 17 min [facility] [id number] 17:34:00 Test Item Value Reference Range Interpretation Comments Time (test code = Time) 28 min [facility] [id number] 17:34:00 Test Item Value Reference Range Interpretation Comments Time (test code = Time) 20 min [facility] [id number] 17:34:00 Test Item Value Reference Range Interpretation Comments Time (test code = Time) 23 min [facility] [id number] 17:34:00 Test Item Value Reference Range Interpretation Comments Time (test code = Time) 26 min [facility] [id number] 17:34:00 Test Item Value Reference Range Interpretation Comments Time (test code = Time) 33 min [facility] [id number] 17:34:00 Test Item Value Reference Range Interpretation Comments Time (test code = Time) 2 min [facility] [id number] 17:34:00 Test Item Value Reference Range Interpretation Comments Time (test code = Time) 12 min [facility] [id number] 17:34:00 Test Item Value Reference Range Interpretation Comments Time (test code = Time) 14 min [facility] [id number] 17:34:00 Test Item Value Reference Range Interpretation Comments Time (test code = Time) 8 min [facility] [id number] 17:34:00 Test Item Value Reference Range Interpretation Comments Time (test code = Time) 5 min [facility] [id number] 17:34:00 Test Item Value Reference Range Interpretation Comments Time (test code = Time) 17 min [facility] [id number] 17:34:00 Test Item Value Reference Range Interpretation Comments Time (test code = Time) 28 min [facility] [id number] 17:34:00 Test Item Value Reference Range Interpretation Comments Time (test code = Time) 20 min [facility] [id number] 17:34:00 Test Item Value Reference Range Interpretation Comments Time (test code = Time) 23 min [facility] [id number] 17:34:00 Test Item Value Reference Range Interpretation Comments Time (test code = Time) 26 min [facility] [id number] 17:34:00 Test Item Value Reference Range Interpretation Comments Time (test code = Time) 33 min [facility] [id number] 17:34:00 Test Item Value Reference Range Interpretation Comments Time (test code = Time) 2 min [facility] [id number] 17:34:00 Test Item Value Reference Range Interpretation Comments Time (test code = Time) 12 min [facility] [id number] 17:34:00 Test Item Value Reference Range Interpretation Comments Time (test code = Time) 14 min [facility] [id number] 17:34:00 Test Item Value Reference Range Interpretation Comments Time (test code = Time) 8 min [facility] [id number] 17:34:00 Test Item Value Reference Range Interpretation Comments Time (test code = Time) 5 min [facility] [id number] 17:34:00 Test Item Value Reference Range Interpretation Comments Time (test code = Time) 17 min [facility] [id number] 17:34:00 Test Item Value Reference Range Interpretation Comments Time (test code = Time) 28 min [facility] [id number] 17:34:00 Test Item Value Reference Range Interpretation Comments Time (test code = Time) 20 min [facility] [id number] 17:34:00 Test Item Value Reference Range Interpretation Comments Time (test code = Time) 23 min [facility] [id number] 17:34:00 Test Item Value Reference Range Interpretation Comments Time (test code = Time) 26 min [facility] [id number] 17:34:00 Test Item Value Reference Range Interpretation Comments Time (test code = Time) 33 min [facility] [id number] 17:34:00 Test Item Value Reference Range Interpretation Comments Time (test code = Time) 2 min [facility] [id number] 17:34:00 Test Item Value Reference Range Interpretation Comments Time (test code = Time) 12 min [facility] [id number] 17:34:00 Test Item Value Reference Range Interpretation Comments Time (test code = Time) 14 min [facility] [id number] 17:34:00 Test Item Value Reference Range Interpretation Comments Time (test code = Time) 8 min [facility] [id number] 17:34:00 Test Item Value Reference Range Interpretation Comments Time (test code = Time) 5 min [facility] [id number] 17:34:00 Test Item Value Reference Range Interpretation Comments Time (test code = Time) 17 min [facility] [id number] 17:34:00 Test Item Value Reference Range Interpretation Comments Time (test code = Time) 28 min [facility] [id number] 17:34:00 Test Item Value Reference Range Interpretation Comments Time (test code = Time) 20 min [facility] [id number] 17:34:00 Test Item Value Reference Range Interpretation Comments Time (test code = Time) 23 min [facility] [id number] 17:34:00 Test Item Value Reference Range Interpretation Comments Time (test code = Time) 26 min [facility] [id number] 17:34:00 Test Item Value Reference Range Interpretation Comments Time (test code = Time) 33 min [facility]
[2022-09-02 18:24] LABS: Absolute Lymphocytes (CBC) 1.3 K/uL (0.7-4.9); Hematocrit 36.6 % (39.6-49.0); Lymphocytes % 11.8 % (15.3-44.8); MCV 85.7 fL (80-100); MPV 10.1 fL (7.6-11.3); RBC Red Blood Cell Count 4.26 M/uL (4.33-5.43)
[2022-09-02 18:40] LABS: Magnesium 2.1 mg/dL (1.6-2.4); Potassium 4.1 mEq/L (3.5-5.1)
--- NOTE | 2022-09-02 18:50 | RAD REPORT ---
[facility] pm CLINICAL HISTORY: edema COMPARISON: Chest Single View dated 08/16/2022; Chest Pa And Lat (2 Views) dated 07/16/2022; Chest Sin gle View dated 06/09/2022; Chest Pa And Lat (2 Views) dated 06/04/2022 TECHNIQUE: Portable AP view of the chest. FINDINGS: The lungs are clear. Decreased inspiratory effort limits evaluation. No pneumothorax or ef fusion. The cardiomediastinal contours are unremarkable. IMPRESSION: No acute cardiopulmonary process.
[2022-09-02] MEDS ORDERED: MORPHINE 4 MG/ML SYR ONE (19:20)
[2022-09-02 19:21] LABS: Protime INR 0.92
[2022-09-02] MEDS ORDERED: NA CHLORIDE 0.9% 100 ML ONE (19:26)
[2022-09-02] MEDS ORDERED: AMPICILLIN/SULBACT 1.5GM VIAL ONE (19:26)
--- NOTE | 2022-09-02 19:52 | RAD REPORT ---
EXAM DESCRIPTION: US - Extrem Venous W Compress Jeff - 09/02/2022 7:28 pm CLINICAL HISTORY: Swelling COMPARISON: None. TECHNIQUE: Real-time sonographic evaluation of the bilateral lower extremity deep venous systems was performed. FINDINGS: Normal compressibility, flow augmentation, phasic flow and spontaneous flow is identified in both the left and right lower extremity deep venous systems. No intraluminal filling defects seen. Subcutaneous soft tissue edema along the right lower leg. IMPRESSION: No evidence of DVT in either lower extremity. Right lower leg subcutaneous soft tissue e mary ellen.
--- NOTE | 2022-09-02 19:54 | RAD REPORT ---
EXAM DESCRIPTION: RAD - Tib Fib Left - 09/02/2022 7:44 pm CLINICAL HISTORY: open wound COMPARISON: No comparisons TECHNIQUE: Left tibia and fibula, 2 views. FINDINGS: No fracture is identified. There is no dislocation or periosteal reaction noted. Epiphyses and growth plates are normal in appea nhan. Soft tissue defect along the lateral aspect of the distal lower leg. Soft tissue swelling about the a nkle. Up to moderate degenerative changes along the midfoot and hindfoot. IMPRESSION: Soft tissue abnormalities, without acute osseous findings. Degenerative changes as above .
[2022-09-02] MEDS ORDERED: FUROSEMIDE 40 MG/4 ML VIAL ONE (20:06)
[2022-09-02] MEDS ORDERED: FUROSEMIDE 20 MG/ 2ML VIAL ONE (20:06)
--- NOTE | 2022-09-02 20:33 | EKG ---
Test Date: 2022-09-02 Test Time: 18:03:04 Parachute Repairer: STEPHANE MEASUREMENT RESULTS: Intervals: Rate: 71 ND: 126 QRSD: 108 QT: 400 QTc: 434 [place]: P: 23 ND: 126 QRS: 69 T: 29 INTERPRETIVE STATEMENTS: Sinus rhythm with premature atrial complexes Right bundle branch block Abnormal ECG Compared to ECG 08/16/2022 21:13:23 Atrial premature complex(es) now present Electronically Signed On 09-02-22 20:32:27 CDT by Micha Tena
--- NOTE | 2022-09-02 20:58 | RAD REPORT ---
EXAM DESCRIPTION: US - UPPER EXTREMITY VENOUS UNILATE - 09/02/2022 8:38 pm CLINICAL HISTORY: Pain, swelling COMPARISON: None. TECHNIQUE: Real-time sonographic evaluation of the left upper extremity deep venous system was perfo rmed. FINDINGS: Normal compressibility, flow augmentation, phasic flow and spontaneous flow is identified in the left upper extremity deep venous system. No intraluminal filling defects seen. IMPRESSION: No DVT in the left upper extremity.
--- NOTE | 2022-09-02 21:29 | ER ---
Nurse's Notes [facility] Name: Ramirez Chaudhari Age: 57 yrs Sex: Male : 1965 Arrival Date: 09/02/2022 Time: 17:12 Bed 20 Private MD: Lavonne Torres Diagnosis: Unspecified combined systolic (congestive) and diastolic (congestive) heart failure;Chronic kidney disease, unspecified;Chronic Wound of Right and Left Lower leg Presentation: 09/02 17:23 Chief complaint: Patient states: 2 DAYS BLE EDEMA. Coronavirus screen: At this time, bp the client does not indicate any symptoms associated with coronavirus-19. Ebola Screen: No symptoms or risks identified at this time. Initial Sepsis Screen: Does the patient meet any 2 criteria? No. Patient's initial sepsis screen is negative. Does the patient have a suspected source of infection? Yes: Skin breakdown/wound. Risk Assessment: Do you want to hurt yourself or someone else? Patient reports no desire to harm self or others. Onset of symptoms is unknown. 17:23 Method Of Arrival: Wheelchair bp 17:23 Acuity: NOHEMI 3 bp Triage Assessment: 17:25 General: Appears in no apparent distress. uncomfortable, Behavior is calm, cooperative, bp appropriate for age. Pain: Complains of pain in left leg. EENT: No deficits noted. Neuro: No deficits noted. Cardiovascular: No deficits noted. Respiratory: No deficits noted. GI: No signs and/or symptoms were reported involving the gastrointestinal system. : No signs and/or symptoms were reported regarding the genitourinary system. Derm: Reports BLE WOUNDS. Musculoskeletal: No deficits noted. Historical: - Allergies: 17:25 Ibuprofen; bp 17:25 metformin; bp - PMHx: 17:25 ADD/ADHD; Diabetes - IDDM; GERD; Gout; High Cholesterol; Hydrocele Left Testicle; bp Hypertension; Hypothyroidism; Migraines; Paraplegia; Renal Disease; Spinal Stroke; - Immunization history:: Adult Immunizations up to date. - Social history:: Smoking status: Patient denies any tobacco usage or history of. Screenin:00 [facility] ED Fall Risk Assessment (Adult) History of falling in the last 3 months, vc1 including since admission No falls in past 3 months (0 pts) Confusion or Disorientation No (0 pts) Intoxicated or Sedated No (0 pts) Impaired Gait Yes (1 pt) Mobility Assist Device Used Yes (1 pt) Altered Elimination No (0 pt) Score/Fall Risk Level 0 - 2 = Low Risk Oriented to surroundings, Maintained a safe environment, Educated pt \T\ family on fall prevention, incl call for assistance when getting out of bed. 19:39 Abuse screen: Denies threats or abuse. Nutritional screening: No deficits noted. vc1 Tuberculosis screening: No symptoms or risk factors identified. Assessment: 19:00 Reassessment: No changes from previously documented assessment. Patient and/or family vc1 updated on plan of care and expected duration. Pain level reassessed. Patient is alert, oriented x 3, equal unlabored respirations, skin warm/dry/pink. at bedside. Assumed care from NORBERTO Jasso. 20:00 Reassessment: Patient and/or family updated on plan of care and expected duration. Pain vc1 level reassessed. Patient is alert, oriented x 3, equal unlabored respirations, skin warm/dry/pink. Patient states symptoms have improved. 21:00 Reassessment: No changes from previously documented assessment. Patient and/or family vc1 updated on plan of care and expected duration. Pain level reassessed. Patient is alert, oriented x 3, equal unlabored respirations, skin warm/dry/pink. Vital Signs: 17:23 BP 171 / 88; Pulse 67; Resp 16; Temp 98.3; Pulse Ox 94% ; bp 19:00 BP 174 / 97; Pulse 71; Resp 22; Pulse Ox 95% on R/A; vc1 19:30 BP 159 / 93; Pulse 69; Resp 17; Pulse Ox 96% on R/A; vc1 20:00 BP 126 / 67; Pulse 70; Resp 22; Pulse Ox 94% on R/A; vc1 21:00 BP 122 / 77; Pulse 70; Resp 20; Pulse Ox 92% on R/A; vc1 ED Course: 17:15 Patient arrived in ED. im 17:16 Lavonne Torres is Private Physician. im 17:16 Hank Malone PA is PHCP. cp 17:16 Charles Nichols MD is Attending Physician. cp 17:24 Triage completed. bp 17:25 Arm band placed on. bp 18:33 XRAY Chest (1 view) In Process Unspecified. EDMS 19:00 Patient has correct armband on for positive identification. Placed in gown. Bed in low vc1 position. Call light in reach. Side rails up X2. Client placed on continuous cardiac and pulse oximetry monitoring. NIBP monitoring applied. 19:30 US Extremity Venous W Compression Jeff In Process Unspecified. EDMS 19:38 Annel Mathis, RN is Primary Nurse. vc1 19:46 XRAY Tib Fib LEFT In Process Unspecified. EDMS 20:39 UPPER EXTREMITY VENOUS UNILATE In Process Unspecified. EDMS 21:13 No provider procedures requiring assistance completed. vc1 21:25 Clinton Dupree DPM is Referral Physician. cp 21:35 IV discontinued, intact, bleeding controlled, No redness/swelling at site. Pressure vc1 dressing applied. Administered Medications: 19:33 Drug: morphine IVP or IV 4 mg Route: IVP; Infused Over: 4 mins; Site: right antecubital;vc1 21:11 Follow up: Response: No adverse reaction; Marked relief of symptoms vc1 20:01 Drug: Furosemide IVP 60 mg Route: IVP; Site: right antecubital; vc1 21:11 Follow up: Response: No adverse reaction; Marked relief of symptoms vc1 Medication: 21:14 VIS not applicable for this client. vc1 Output: 19:39 Urine: 1500ml (Valera); Total: 1500ml. vc1 Outcome: 21:29 Discharge ordered by MD. cp 21:35 Discharged to home via wheelchair, with significant other. vc1 21:35 Condition: good 21:35 Discharge instructions given to patient, portfolio specialist, Instructed on discharge instructions, follow up and referral plans. medication usage, Demonstrated understanding of instructions, follow-up care, medications. 21:51 Patient left the ED. vc1 Signatures: Dispatcher [employer] EDMT Hank Malone PA PA cp Rupesh Moyer, NORBERTO RN bp Annel Mathis, NORBERTO RN vc1 Penelope Lopez
--- NOTE | 2022-09-02 21:29 | EDPHYS ---
Physician Documentation [facility] Name: Ramirez Chaudhari Age: 57 yrs Sex: Male : 1965 Arrival Date: 09/02/2022 Time: 17:12 Bed 20 Private MD: Lavonne Torres ED Physician Charles Nichols HPI: 09/02 17:40 This 57 yrs old Male presents to ER via Wheelchair with complaints of Leg cp Swelling. 17:40 The patient presents with increased swelling with left leg worse than right, chronic cp wounds to lower legs. 17:40 . cp 17:40 Patient is a 57-year-old male with past medical history significant for cp insulin-dependent diabetes, gout, hyperlipidemia and paraplegia. Patient presents to the emergency department with complaints of increased swelling in his lower legs with the left leg worse than the right. He also reports concern about worsening chronic wounds to his lower leg with the left lower leg wound being worse and concern for increased drainage. Wounds are being managed by Dr. Dupree at wound care and patient reportedly was seen yesterday and dressings were changed. No fevers recorded and patient denies any shortness of breath and/or chest pain. Historical: - Allergies: 17:25 Ibuprofen; bp 17:25 metformin; bp - PMHx: 17:25 ADD/ADHD; Diabetes - IDDM; GERD; Gout; High Cholesterol; Hydrocele Left Testicle; bp Hypertension; Hypothyroidism; Migraines; Paraplegia; Renal Disease; Spinal Stroke; - Immunization history:: Adult Immunizations up to date. - Social history:: Smoking status: Patient denies any tobacco usage or history of. ROS: 17:45 Constitutional: Negative for body aches, chills, fever, poor PO intake. cp 17:45 Eyes: Negative for injury, pain, redness, and discharge. cp 17:45 ENT: Negative for drainage from ear(s), ear pain, sore throat, difficulty swallowing, difficulty handling secretions. 17:45 Cardiovascular: Positive for edema, Negative for chest pain. 17:45 Respiratory: Negative for cough, shortness of breath, wheezing. 17:45 Abdomen/GI: Negative for abdominal pain, nausea, vomiting, and diarrhea. 17:45 Back: Negative for pain at rest, pain with movement. 17:45 Neuro: Negative for altered mental status, dizziness, headache, weakness. 17:45 All other systems are negative. Exam: 17:50 Constitutional: The patient appears in no acute distress, alert, awake, cp non-diaphoretic, non-toxic, well developed, well nourished. 17:50 Head/Face: Normocephalic, atraumatic. cp 17:50 Eyes: Periorbital structures: appear normal, Conjunctiva: normal, no exudate, no injection, Sclera: no appreciated abnormality, Lids and lashes: appear normal, bilaterally. 17:50 ENT: External ear(s): are unremarkable, Nose: is normal, Mouth: Lips: moist, Oral mucosa: pink and intact, moist, Posterior pharynx: is normal, airway is patent, no erythema, no exudate. 17:50 Chest/axilla: Inspection: normal. 17:50 Cardiovascular: Rate: normal, Rhythm: regular. 17:50 Respiratory: the patient does not display signs of respiratory distress, Respirations: normal, no use of accessory muscles, no retractions, labored breathing, is not present, Breath sounds: are clear throughout, no decreased breath sounds, no stridor, no wheezing. 17:50 Abdomen/GI: Inspection: abdomen appears normal, Palpation: abdomen is soft and non-tender, in all quadrants. 17:50 Musculoskeletal/extremity: Extremities: noted in the left arm: pain, swelling, tenderness, starting at left elbow and radiating proximal and distal. 17:50 Musculoskeletal/extremity: Exam of lower extremities show pitting edema bilaterally, cp bilateral open wounds on lateral sides of lower legs with the left wound expressing moderate purulent and foul-smelling drainage. 17:50 Neuro: Orientation: to person, place \T\ time. Mentation: is normal. cp 18:10 ECG was reviewed by the Attending Physician. cp Vital Signs: 17:23 BP 171 / 88; Pulse 67; Resp 16; Temp 98.3; Pulse Ox 94% ; bp 19:00 BP 174 / 97; Pulse 71; Resp 22; Pulse Ox 95% on R/A; vc1 19:30 BP 159 / 93; Pulse 69; Resp 17; Pulse Ox 96% on R/A; vc1 20:00 BP 126 / 67; Pulse 70; Resp 22; Pulse Ox 94% on R/A; vc1 21:00 BP 122 / 77; Pulse 70; Resp 20; Pulse Ox 92% on R/A; vc1 MDM: 17:31 Patient medically screened. cp 19:00 Differential diagnosis: sepsis, kidney failure, chf, DVT. cp 21:28 Data reviewed: vital signs, nurses notes, lab test result(s), EKG, radiologic studies, cp plain films, ultrasound. 21:28 Consideration of Admission/Observation Escalation of care including cp admission/observation considered. 21:28 Care significantly affected by the following chronic conditions: Diabetes, cp Hypertension, Congestive Heart Failure, Chronic Kidney Disease. Counseling: I had a detailed discussion with the patient and/or guardian regarding: the historical points, exam findings, and any diagnostic results supporting the discharge/admit diagnosis, lab results, radiology results, the need for outpatient follow up, wound care. Response to treatment: the patient's symptoms have markedly improved after treatment, and as a result, I will discharge patient. 09/02 17:32 Order name: Basic Metabolic Panel; Complete Time: 18:58 09/02 18:58 Interpretation: Normal except: NA 133; GLUC 146; BUN 33; CRE 1.81; GFR 43. cp 09/02 17:32 Order name: CBC with Diff; Complete Time: 18:58 09/02 18:59 Interpretation: Normal except: RBC 4.26; HGB 12.2; HCT 36.6; RDW 15.5; KATIANA% 77.4; LYM% cp 11.8; NEUT A 8.4. 09/02 17:32 Order name: Magnesium; Complete Time: 18:58 09/02 17:32 Order name: NT PRO-BNP; Complete Time: 18:58 09/02 18:59 Interpretation: Abnormal: NT PRO-BNP 1045. 09/02 17:32 Order name: PT-INR; Complete Time: 19:33 09/02 19:33 Interpretation: Reviewed. 09/02 17:32 Order name: Troponin HS; Complete Time: 18:58 09/02 17:32 Order name: XRAY Chest (1 view); Complete Time: 18:58 09/02 17:32 Order name: US Extremity Venous W Compression Jeff; Complete Time: 20:07 09/02 19:00 Order name: XRAY Tib Fib LEFT; Complete Time: 20:07 09/02 20:07 Interpretation: Report reviewed. cp 09/02 20:39 Order name: UPPER EXTREMITY VENOUS UNILATE; Complete Time: 21:02 EDMS 09/02 17:32 Order name: EKG; Complete Time: 17:33 cp 09/02 17:32 Order name: Cardiac monitoring; Complete Time: 18:42 cp 09/02 17:32 Order name: EKG - Nurse/Tech; Complete Time: 18:42 cp 09/02 17:32 Order name: IV Saline Lock; Complete Time: 18:42 cp 09/02 17:32 Order name: Labs collected and sent; Complete Time: 18:42 cp 09/02 17:32 Order name: O2 Per Protocol; Complete Time: 18:42 cp 09/02 17:32 Order name: O2 Sat Monitoring; Complete Time: 18:42 cp 09/02 21:03 Order name: Wound dressing; Complete Time: 21:28 cp EC:10 Rate is 71 beats/min. Rhythm is regular. IN interval is normal. QRS interval is cp prolonged at 108 msec. QT interval is normal. T waves are Inverted in lead aVR. Interpreted by me. Reviewed by me. Administered Medications: 19:33 Drug: morphine IVP or IV 4 mg Route: IVP; Infused Over: 4 mins; Site: right antecubital;vc1 21:11 Follow up: Response: No adverse reaction; Marked relief of symptoms vc1 20:01 Drug: Furosemide IVP 60 mg Route: IVP; Site: right antecubital; vc1 21:11 Follow up: Response: No adverse reaction; Marked relief of symptoms vc1 Disposition Summary: 09/02/22 21:29 Discharge Ordered Location: Home cp Problem: an ongoing problem cp Symptoms: have improved cp Condition: Stable cp Diagnosis - Unspecified combined systolic (congestive) and diastolic (congestive) heart failure cp - Chronic kidney disease, unspecified cp - Chronic Wound of Right and Left Lower leg cp Followup: cp - With: Clinton Dupree DPM - When: as scheduled - Reason: chronic lower extremity wounds Discharge Instructions: - Discharge Summary Sheet cp - Edema cp - Wound Care, Adult cp - Wound Packing cp - Heart Failure Exacerbation cp - Heart Failure Eating Plan cp Forms: - Medication Reconciliation Form cp - Thank You Letter cp - Antibiotic Education cp - Prescription Opioid Use cp - [email or web address] cp Signatures: Dispatcher [employer] EDMS Hank Malone PA PA cp Peltier, Brian, RN RN bp Annel Mathis RN RN vc1 Charles Nichols MD MD bs3 Corrections: (The following items were deleted from the chart) 20:39 19:53 Extremity Venous Uni Ltd+[email or web address] ordered. EDMS EDMS
[2022-09-02 21:55] VITALS: TEMP 98.3
[2022-09-02 22:03] VITALS: BP 122/77; O2SAT 92
== END 2022-09-02 21:51 | disposition home or self-care (01) ==
LOC: ER 17:12
DX: I50.40 Unspecified combined systolic (congestive) and diastolic (congestive) heart failure (principal); L97.919 Non-pressure chronic ulcer of unspecified part of right lower leg with unspecified severity; L97.929 Non-pressure chronic ulcer of unspecified part of left lower leg with unspecified severity; E11.22 Type 2 diabetes mellitus with diabetic chronic kidney disease; I12.9 Hypertensive chronic kidney disease with stage 1 through stage 4 chronic kidney disease, or unspecified chronic kidney disease; N18.9 Chronic kidney disease, unspecified; Z88.6 Allergy status to analgesic agent; Z88.8 Allergy status to other drugs, medicaments and biological substances
CPT/HCPCS: 93005; 85025; 80048; 36415; 83735; 85610; 84484; 83880; 71045; 73590; 93971; 93970; J1940 ×2; J0295

== ENCOUNTER 2022-10-06 15:05 | Inpatient (IN) | payer MEDICARE ==
--- NOTE | 2022-10-06 15:48 | RAD REPORT ---
EXAM DESCRIPTION: US - Extremity Venous Uni Ltd - 10/06/2022 3:41 pm CLINICAL HISTORY: Swelling COMPARISON: None. TECHNIQUE: Real-time sonographic evaluation of the left lower extremity deep venous system was perfo rmed. FINDINGS: Normal compressibility, flow augmentation, phasic flow and spontaneous flow is identified in the left lower extremity deep venous system. No intraluminal filling defects seen. IMPRESSION: No DVT in the left lower extremity.
--- OUTSIDE RECORDS SUMMARY | 2022-10-06 16:00 | XMS REPORT | Continuity of Care Document ---
:1965 Author Organization [facility] t Address [address] [place] [address] Care Team Providers Name Role Phone Priya Baltazar MD, William Primary Care Physician [phone] Ramon Powers Attending Clinician Unavailable Shilo_capo Attending Clinician Unavailable Mychal Fuentes Attending Clinician Wilner Elise Attending Clinician Duyen Godfrey Attending Clinician Roxana Attending Clinician Unavailable Terrell Amato MD Attending Clinician Avis Jackson Attending Clinician Nell Franco Attending Clinician MICHELLE Attending Clinician Unavailable MANDEEP PARKS Attending Clinician Unavailable Mandeep Parks Attending Clinician FAITH GOMEZ Attending Clinician Unavailable Birdie Virgen Attending Clinician Gamaliel Nicholas Attending Clinician Cori Martinez Attending Clinician uTng Azevedo Jr Attending Clinician Ramon Powers Admitting Clinician Unavailable Nikolay Admitting Clinician Unavailable Roxana Admitting Clinician Unavailable MICHELLE Admitting Clinician Unavailable MANDEEP PARKS Admitting Clinician Unavailable Mandeep Parks Admitting Clinician FAITH GOMEZ Admitting Clinician Unavailable Payers Payer Name Policy Type Policy Effective Date Expiration Date Sour ce Number [employer] [id number] 2020 (MEDICARE 00:00:00 REPLACEMENT HMO) [employer] C1 [id number] Common [facility] Problems Condition Condition Condition Status Onset Resolution Last Treating Co mments Source Name Details Category Date Date Treatment Clinician Date ACUTE ACUTE Diagnosis Active 2020-06-27 [facility] CHEST PAIN CHEST PAIN 06-14 21:53:00 l Active 00:00: [place] 06/14/2020 [facility] CHEST PAIN CHEST [facility] 23:21:00 l Active 00:00: [place] 06/14/2020 00 [facility] DM2 DM2 Disease Recurre [facility] (diabetes (diabetes nce [facility] mellitus, mellitus, 00:00: [facility] timothy type 2) type 2) 00 Center Epididymit Epididymit Disease Active [facility] is, left is[facility] 00:[facility]: [facility] 00 [place] HTN HTN Disease Active [facility] (hypertens [...] Memoria 06/20/201306-20 01:18:00 l [facility] 00:00: [place] 00 NO ORDERS NO ORDERS Diagnosis Active 2013-11-08 Memoria WRITTEN WRITTEN 05-24 01:18:00 l Active 00:00: [place] 05/24/2013 00 [facility] NEUROGENIC NEUROGENI Diagnosis Active 2014-07-28 Memoria BLADDER C BLADDER 04-19 16:13:00 l Active 00:00: [place] 04/19/2013 00 [facility] TBI TBI Diagnosis Active 2013-12-12 [facility] oria Active 03-09 12:27:00 l 03/09/2000 23:59: Jose barajas [facility] 00 SCI SCI Diagnosis Active 2014-09-13 Mem oria Active 03-09 16:37:00 l 03/09/2000 08:00: Jose barajas [facility] 00 [id number] Bladder Problem Common calculus [facility] Neurogenic Neurogenic Problem C ommon bladder bladder [facility] Paraplegia Paraplegic Problem C ommon spinal Spirit paralysis [facility] [id number] Gross Problem Common hematuria [facility] [id number] Neurogenic Problem Co mmon bladder, Spirit flaccid [facility] [id number] Trauma of Problem Comm on urethra, Spirit initial - [facility] encounter [facility] [id number] Complicate Problem Com mon d UTI [facility] (urinary - [facility] infection) [facility] Diabetes(C Diabetes( Problem Active 2014-02-22 Memoria onfirmed) Confirmed) 19:04:26 l Active [place] Problem 02/22/2014 [facility] GOUT(Confi GOUT(Conf Problem Active 2014-02-22 Memoria rmed) irmed) 19:04:26 l Active [place] Problem 02/22/2014 [facility] Pure Pure Problem Active 2014-02-22 Memor ia hyperchole hyperchole 19:04:26 l sterolemia sterolemia He rmann (disorder) (disorder) Active Problem 02/22/2014 [facility] Impotence Impotence Problem Active 2020-06-17 Memoria (disorder) (disorder) 22:29:12 l Active [place] Problem 06/17/2020 [facility] Spinal Spinal Problem Active 2020-06-17 Brandon karina cord cord 22:29:12 l injury injury [place] (disorder) (disorder) Active Problem 06/17/2020 [facility] CHEST CHEST Diagnosis Active 2020-06-27 Mem oria PAIN, PAIN, 21:53:00 l UNSPECIFIE UNSPECIFIE He rmann D D Active [facility] ILLNESS, ILLNESS, Diagnosis Active 2020-06-14 Memoria UNSPECIFIE UNSPECIFIE 23:21:00 l D D Active [place] [facility] Spinal Spinal Problem Resolve 2020-06-17 2020-06-17 Memoria cord cord d 11-15 22:29:12 22:29:12 l stroke stroke 00:00: [place] (disorder) (disorder) 00 Resolved 11/15/2013 Problem 06/17/2020 apr 19 2013 [facility] Diabetes Diabetes Problem Resolve 2020-06-17 2020-06-17 Memoria mellitus mellitus d 07-08 22:29:12 22:29:12 l (disorder) (disorder) 00:00: He rmann Resolved 00 07/08/2013 Problem 06/17/2020 [facility] GOUT(Confi Problem Resolve 2020-06-17 2020-06-17 Memoria rmed) GOUT(Confi d 07-08 22:29:12 22:29:12 l rmed) 00:00: [place] Resolved 00 07/08/2013 Problem 06/17/2020 [facility] Hyperchole Problem Resolve 2020-06-17 2020-06-17 Memoria sterolemia Hyperchole d 07-08 22:29:12 22:29:12 l (disorder) sterolemia 00:00: He rmann (disorder) 00 Resolved 07/08/2013 Problem 06/17/2020 [facility] Essential Essential Problem Resolve 2020-06-17 2020-06-17 Memoria hypertensi hypertensi d 07-08 22:29:12 22:29:12 l on on 00:00: [place] (disorder) (disorder) 00 Resolved 07/08/2013 Problem 06/17/2020 [facility] Allergies, Adverse Reactions, Alerts Allergy Allergy Status Severity Reaction(s) Onset Inactive Treating Comm ents Source Name Type Date Date Clinician Ibuprofe Propensi Active [facility] adverse 00:[facility]: Medical reaction 00 Center s Metformi Propensi Active [facility]ney [facility] adverse 00:00: Medical reaction 00 Center s IBUPROFE Allergy Active [facility] METFORMI Allergy Active [facility] Center ibuprofe ibuprofe Active Memori a n n l [place] metFORMI metFORMI Active Memori [facility] N l [place] Family History Family Member Diagnosis Comments Start Date Stop Date Source Natural brother Kidney disease [facility] Natural mother Diabetes [facility] Natural sister Diabetes [facility] Social History Social Habit Start Date Stop Date Quantity Comments Source [facility] History of Tobacco [facility] - Use [facility] Tobacco use and 2021-09-19 2021-09-19 Smokeless Jew exposure 00:00:00 00:00:00 tobacco non-user Hospital History of Social 2021-09-19 2021-09-[address] function 00:00:00 00:00:00 Hospital Alcohol intake 2016-07-01 2016-07-01 Current [facility] 00:00:00 00:00:00 non-drinker of Medical Ce nter alcohol (finding) Social History 2013-04-20 2013-04-20 [facility] 11:02:37 11:02:37 Sex Ass[birth year] At [birth year] [facility] 00:00:00 00:00:00 Medical Center Smoking Status Start Date Stop Date Source Never Smoker [facility] Tobacco [facility] consumption unknown Ex-smoker 2016-07-01 00:00:00 2016-07-01 [facility] 00:00:00 Center Medications Ordered Filled Start [...] day, # 14 cap, 0 Refill(s), Pharmacy: [facility], 172.72, cm, 06/14/20 23:37:00 CDT, Height, 106.545, kg, 06/14/20 23:37:00 CDT, Weight cefdinir Yes 300 mg = 1 Mem oria 300 MG Oral 4-09 cap, PO, l Capsule 22:52: Q12H, X 7 Love nn 00 day, # 14 cap, 0 Refill(s), Pharmacy: [facility], 172.72, cm, 06/14/20 23:37:00 CDT, Height, 106.545, kg, 06/14/20 23:37:00 CDT, Weight cefdinir 2020-0 Yes 300 mg = 1 Mem oria 300 MG Oral 4-09 cap, PO, l Capsule 22:52: Q12H, X 7 Love nn 00 day, # 14 cap, 0 Refill(s), Pharmacy: [facility], 172.72, cm, 06/14/20 23:37:00 CDT, Height, 106.545, kg, 06/14/20 23:37:00 CDT, Weight cefdinir 2020-0 Yes 300 mg = 1 Mem oria 300 MG Oral 4-09 cap, PO, l Capsule 22:52: Q12H, X 7 Love nn 00 day, # 14 cap, 0 Refill(s), Pharmacy: [facility], 172.72, cm, 06/14/20 23:37:00 CDT, Height, 106.545, kg, 06/14/20 23:37:00 CDT, Weight cefdinir 2021-0 Yes 300 mg = 1 Mem oria 300 MG Oral 4-09 cap, PO, l Capsule 22:52: Q12H, X 7 Love nn 00 day, # 14 cap, 0 Refill(s), Pharmacy: [facility], 172.72, cm, 06/14/20 23:37:00 [...] nn 00 90 tab, 0 Refill(s), Pharmacy: [facility], 172.72, cm, 06/14/20 23:37:00 CDT, Height, 106.545, kg, 06/14/20 23:37:00 CDT, Weight pantoprazol Yes 40 mg = 1 M emoria e 40 mg 4-09 tab, PO, l oral 22:36: Before [place] enteric 00 Breakfast, coated # 30 tab, tablet 0 Refill(s), Pharmacy: [facility], 172.72, cm, 06/14/20 23:37:00 CDT, Height, 106.545, kg, 06/14/20 23:37:00 CDT, Weight { Yes See Memoria (Methylpred 4-09 Instructio l nisolone 4 22:36: ns, PO, Herm yogesh MG Oral 00 Take by Tablet mouth as [Medrol]) } directed Pack on label., [Medrol X 6 day, # Dosepak] 21 tab, 0 Refill(s), Pharmacy: [facility], 172.72, cm, 06/14/20 23:37:00 CDT, Height, 106.545, kg, 06/14/20 23:37:00 CDT, Weight Colchicine Yes 0.6 mg = 1 M emoria 0.6 MG Oral 4-09 tab, PO, l Tablet 22:36: BID, 0 [place] 00 Refill(s) pravastatin 0 Yes 20 mg = 1 M emoria 20 mg oral 4-09 tab, PO, l tablet 22:36: Bedtime, # Love nn 00 90 tab, 0 Refill(s), Pharmacy: [facility], 172.72, cm, 06/14/20 23:37:00 CDT, Height, 106.545, kg, 06/14/20 23:37:00 CDT, Weight pantoprazol 0 Yes 40 mg = 1 M emoria e 40 mg 4-09 tab, PO, l oral 22:36: Before [place] enteric 00 Breakfast, coated # 30 tab, tablet 0 Refill(s), Pharmacy: [facility], 172.72, cm, 06/14/20 23:37:00 CDT, Height, 106.545, kg, 06/14/20 23:37:00 CDT, Weight { Yes See Memoria (Methylpred 4-09 Instructio l nisolone 4 22:36: ns, PO, Herm yogesh MG Oral 00 Take by Tablet mouth as [Medrol]) } directed Pack on label., [Medrol X 6 day, # Dosepak] 21 tab, 0 Refill(s), Pharmacy: [facility], 172.72, cm, 06/14/20 23:37:00 CDT, Height, 106.545, kg, 06/14/20 23:37:00 CDT, Weight Colchicine 0 Yes 0.6 mg = 1 M emoria 0.6 MG Oral 4-09 tab, PO, l Tablet 22:36: BID, 0 [place] 00 Refill(s) pravastatin 0 Yes 20 mg = 1 M emoria 20 mg oral 4-09 tab, PO, l tablet 22:36: Bedtime, # Love nn 00 90 tab, 0 Refill(s), Pharmacy: [facility], 172.72, cm, 06/14/20 23:37:00 CDT, Height, 106.545, kg, 06/14/20 23:37:00 CDT, Weight pantoprazol 0 Yes 40 mg = 1 M emoria e 40 mg 4-09 tab, PO, l oral 22:36: Before [place] enteric 00 Breakfast, coated # 30 tab, tablet 0 Refill(s), Pharmacy: [facility], 172.72, cm, 06/14/20 23:37:00 CDT, Height, 106.545, kg, 06/14/20 23:37:00 CDT, Weight { Yes See Memoria (Methylpred 4-09 Instructio l nisolone 4 22:36: ns, PO, Herm yogesh MG Oral 00 Take by Tablet mouth as [Medrol]) } directed Pack on label., [Medrol X 6 day, # Dosepak] 21 tab, 0 Refill(s), Pharmacy: [facility], 172.72, cm, 06/14/20 23:37:00 [...] nn 00 90 tab, 0 Refill(s), Pharmacy: [facility], 172.72, cm, 06/14/20 23:37:00 CDT, Height, 106.545, kg, 06/14/20 23:37:00 CDT, Weight pantoprazol Yes 40 mg = 1 M emoria e 40 mg 4-09 tab, PO, l oral 22:36: Before [place] enteric 00 Breakfast, coated # 30 tab, tablet 0 Refill(s), Pharmacy: [facility], 172.72, cm, 06/14/20 23:37:00 CDT, Height, 106.545, kg, 06/14/20 23:37:00 CDT, Weight { Yes See Memoria (Methylpred 4-09 Instructio l nisolone 4 22:36: ns, PO, Herm yogesh MG Oral 00 Take by Tablet mouth as [Medrol]) } directed Pack on label., [Medrol X 6 day, # Dosepak] 21 tab, 0 Refill(s), Pharmacy: [facility], 172.72, cm, 06/14/20 23:37:00 CDT, Height, 106.545, kg, 06/14/20 23:37:00 CDT, Weight Colchicine Yes 0.6 mg = 1 M emoria 0.6 MG Oral 4-09 tab, PO, l Tablet 22:36: BID, 0 [place] 00 Refill(s) pravastatin Yes 20 mg = 1 M emoria 20 mg oral 4-09 tab, PO, l tablet 22:36: Bedtime, # Love nn 00 90 tab, 0 Refill(s), Pharmacy: [facility], 172.72, cm, 06/14/20 23:37:00 CDT, Height, 106.545, kg, 06/14/20 23:37:00 CDT, Weight pantoprazol Yes 40 mg = 1 M emoria e 40 mg 4-09 tab, PO, l oral 22:36: Before [place] enteric 00 Breakfast, coated # 30 tab, tablet 0 Refill(s), Pharmacy: [facility], 172.72, cm, 06/14/20 23:37:00 CDT, Height, 106.545, kg, 06/14/20 23:37:00 CDT, Weight { Yes See Memoria (Methylpred 4-09 Instructio l nisolone 4 22:36: ns, PO, Herm yogesh MG Oral 00 Take by Tablet mouth as [Medrol]) } directed Pack on label., [Medrol X 6 day, # Dosepak] 21 tab, 0 Refill(s), Pharmacy: [facility], 172.72, cm, 06/14/20 23:37:00 CDT, Height, 106.545, kg, 06/14/20 23:37:00 CDT, Weight NovoLog 0 No 30 unit, Memori a 4-09 Route: l 21:30: SUB-Q, [place] 00 TID-Before Meals, Dosing Weight 106.545, kg, Start date: 06/15/20 16:30:00 CDT, Duration: 30 day, Stop date: 07/15/20 11:30:00 CDT Humalog No Notes: Memoria 4- (Same as: l 21:30: Humalog) [place] 00 Roll in palms of hands gently; Do not shake vigorously . WASTE: F/P - Black; E - Municipal Trash Bin Stable for 28 days at room temperatur e. Expires in days from ____Date NovoLog No 30 unit, Memori a 4- Route: l 21:30: SUB-Q, [place] 00 TID-Before Meals, Dosing Weight 106.545, kg, [...] Memori a 4- Route: l 21:30: SUB-Q, [place] 00 TID-Before Meals, Dosing Weight 106.545, kg, Start date: 06/15/20 16:30:00 CDT, Duration: 30 day, Stop date: 07/15/20 11:30:00 CDT Humalog No Notes: Memoria 4- (Same as: l 21:30: Humalog) [place] 00 Roll in palms of hands gently; Do not shake vigorously . WASTE: F/P - Black; E - Municipal Trash Bin Stable for 28 days at room temperatur e. Expires in days from ____Date NovoLog No 30 unit, Memori a 4-09 Route: l 21:30: SUB-Q, [place] 00 TID-Before Meals, Dosing Weight 106.545, kg, Start date: 06/15/20 16:30:00 CDT, Duration: 30 day, Stop date: 07/15/20 11:30:00 CDT Humalog No Notes: Memoria 4- (Same as: l 21:30: Humalog) [place] 00 Roll in palms of hands gently; [...] Memoria 4- (Same as: l 21:30: Humalog) [place] 00 Roll in palms of hands gently; Do not shake vigorously . WASTE: F/P - Black; E - Municipal Trash Bin Stable for 28 days at room temperatur e. Expires in days from ____Date Ceftriaxone No Notes: Brandon karina 4- (Same As: l 21:00: Rocephin). [place] 00 Use with 100 mL NS and infuse over 30 min MEDICATION WASTE Product Size: 1000 mg Product Wasted: ___ mg Ceftriaxone No Notes: Brandon karina 4-09 (Same As: l 21:00: Rocephin). [place] 00 Use with 100 mL NS and infuse over 30 min MEDICATION WASTE Product Size: 1000 mg Product Wasted: ___ mg Ceftriaxone No Notes: Brandon karina 4-09 (Same As: l 21:00: Rocephin). [place] 00 Use with 100 mL NS and infuse over 30 min MEDICATION WASTE Product Size: 1000 mg Product Wasted: ___ mg Ceftriaxone No Notes: Brandon karina 4-09 (Same As: l 21:00: Rocephin). Use with 100 mL NS and infuse over 30 min MEDICATION WASTE Product Size: 1000 mg Product Wasted: ___ mg Ceftriaxone No Notes: Brandon karina 4- (Same As: l 21:00: Rocephin). Use with 100 mL NS and infuse over 30 min MEDICATION WASTE Product Size: 1000 mg Product Wasted: ___ mg Insulin No Notes: Memoria Glargine - (Same as: l 15:00: Lantus) Do not hold insulin without contacting prescriber WASTE: F/P - Black; E - Municipal Trash Bin "single patient use only" Stable for 28 days at room temperatur e Expires in days from ____Date Insulin No Notes: Memoria Glargine - (Same as: l 15:00: Lantus) Do not hold insulin without contacting prescriber WASTE: F/P - Black; E - Municipal Trash Bin "single patient use only" Stable for 28 days at room temperatur e Expires in days from ____Date Insulin No Notes: Memoria Glargine - (Same as: l 15:00: Lantus) Do not hold insulin without contacting prescriber WASTE: F/P - Black; E - Municipal Trash Bin "single patient use only" Stable for 28 days at room temperatur e Expires in days from ____Date Insulin No Notes: Memoria Glargine 4- (Same as: l 15:00: Lantus) Do not [...] Memoria 4-09 Tablet l 14:28: should not [place] 00 be chewed or crushed. (Same as: [...] Memoria 4-09 Tablet l 14:28: should not [place] 00 be chewed or crushed. (Same as: Protonix) ketOROLAC 2020-0 No 4 days Memor ia 30 mg/mL 4-09 l injectable 14:28: MEDICATION H ermann solution 00 WASTE Product Size: 30 mg Product Wasted: ___ mg Protonix 2020-0 No Notes: Memoria 4-09 Tablet l 14:28: should not [place] 00 be chewed or crushed. (Same as: Protonix) ketOROLAC No 4 days Memor ia 30 mg/mL 06-15 l injectable 14:28: MEDICATION H ermann solution 00 WASTE Product Size: 30 mg Product Wasted: ___ mg Colchicine No Notes: Memor ia 0.6 MG Oral - Hazardous l Tablet 14:00: Drug Group Love nn 00 3:Reproduc tive risk Hazardous Drug -- Refer to safe handling procedure PPE Matrix Fenofibrate No Notes: Brandon karina 160 MG Oral -09 Non-Formul l Tablet 14:00: noe Drug [place] 00 (Same as: Tricor) Furosemide No Notes: Memor ia 20 MG Oral 06-15 (Same as: l Tablet 14:00: Lasix) [place] 00 cause GI upset. Give with food or milk. insulin No 40 unit, Memori a detemir 06-15 Route: l 14:00: SUB-Q, [place] 00 Drug form: SOLN, Q12H, Dosing Weight 106.545, kg, Start date: 06/15/20 9:00:00 CDT, Duration: 30 day, Stop date: 07/14/20 21:00:00 CDT Thyroxine No Notes: Memori a -09 Take 1 l 14:00: hour [place] 00 before or 2 hours after meal; Enteral feeds may interefere with the absorption of this medication . (Same as:Synthro id, Levothroid ) Aspirin 81 No Notes: Memor ia MG Chewable 09 Take with l Tablet 14:00: food. [place] 00 Saline No Notes: Memoria Flush 0.9% 06-15 (Same as: l 14:00: BD [place] Posiflush) Colchicine No Notes: Memor ia 0.6 MG Oral -09 Hazardous l Tablet 14:00: Drug Group Love [...] 00 Saline No Notes: Memoria Flush 0.9% - (Same as: l 14:00: BD Posiflush) Colchicine [...] a detemir 4-09 Route: l 14:00: SUB-Q, [place] 00 Drug form: SOLN, Q12H, Dosing Weight [...] food. Saline No Notes: Memoria Flush 0.9% 4-09 (Same as: l 14:00: BD [place] Posiflush) Colchicine No Notes: Memor ia 0.6 [...] insulin No 40 unit, Memori a detemir -09 Route: l 14:00: SUB-Q, Drug form: SOLN, [...] food. Saline No Notes: Memoria Flush 0.9% 4-09 (Same as: l 14:00: BD [place] 00 Posiflush) Colchicine No Notes: Memor ia [...] BD Normal No Notes: Memori a Saline 4- (Same as: l Flush 12:44: BD [place] 00 Posiflush) Sodium No 25 mL, Memoria Chloride 06-15 Route: IV, l 0.9% IV 12:44: Start [place] 00 date: 06/15/20 7:44:00 CDT, Duration: 30 day, Stop date: 07/15/20 7:43:00 CDT, PRN Line Flush, 0 BD Normal No Notes: Memori a Saline - (Same as: l Flush 12:44: BD [place] Posiflush) Sodium No 25 mL, Memoria Chloride - Route: IV, l 0.9% IV 12:44: Start date: 06/15/20 7:44:00 CDT, Duration: 30 day, Stop date: 07/15/20 7:43:00 CDT, PRN Line Flush, 0 BD Normal No Notes: Memori a Saline - (Same as: l Flush 12:44: BD [place] Posiflush) Sodium No 25 mL, Memoria Chloride 06-15 Route: IV, l 0.9% IV 12:44: Start [place] 00 date: 06/15/20 7:44:00 CDT, Duration: 30 day, Stop date: 07/15/20 7:43:00 CDT, PRN Line Flush, 0 BD Normal No Notes: Memori a Saline 4-09 (Same as: l Flush 12:43: BD [place] 00 Posiflush) BD Normal No Notes: Memori a Saline 4-09 (Same as: l Flush 12:43: BD [place] 00 Posiflush) BD Normal No Notes: Memori a Saline 4-09 (Same as: l Flush 12:43: BD [place] 00 Posiflush) BD Normal No Notes: Memori a Saline 4-09 (Same as: l Flush 12:43: BD Shayd Posiflush) BD Normal 2020-0 No Notes: Memori a Saline 06-15 (Same as: l Flush 12:43: BD [place] Posiflush) Dextrose No 12.5 gm, Memor ia 50% Syringe 06-15 25 mL, l (D50W) 12:36: Route: [place] 00 IVP, Drug Form: INJ, Dosing Weight 106.545, kg, PRN, PRN Blood Glucose Results, Start date: 06/15/20 7:36:00 CDT, Duration: 30 day, Stop date: 07/15/20 7:35:00 CDT, 0 Glucagon 0 No 1 mg, Memoria 06-15 Route: IM, l 12:36: Drug form: [place] 00 PDR/INJ, PRN, Dosing Weight 106.545, kg, PRN Blood Glucose Results, Start date: 06/15/20 7:36:00 CDT, Duration: 30 day, Stop date: 07/15/20 7:35:00 CDT, 0 Insulin 0 No Notes: Memoria Lispro 06-15 (Same as: [...] 06-15 Route: IM, l 12:36: Drug form: [place] 00 PDR/INJ, PRN, Dosing Weight 106.545, kg, PRN Blood Glucose Results, Start date: 06/15/20 7:36:00 CDT, Duration: 30 day, Stop date: 07/15/20 7:35:00 CDT, 0 Insulin 2020-0 No Notes: Memoria Lispro 4- (Same as: l 12:36: Humalog) [place] 00 Roll in palms of hands gently; Do not shake vigorously . WASTE: F/P - Black; E - Municipal Trash Bin Stable for 28 days at room temperatur e. Expires in days from ____Date Dextrose 2020-0 No 12.5 gm, Memor ia 50% Syringe 06-15 25 mL, l (D50W) 12:36: Route: [place] 00 IVP, Drug Form: INJ, Dosing Weight 106.545, kg, PRN, PRN Blood Glucose Results, Start date: 06/15/20 7:36:00 CDT, Duration: 30 day, Stop date: 07/15/20 7:35:00 CDT, 0 Glucagon 2020-0 No 1 mg, Memoria - Route: IM, l 12:36: Drug form: [place] 00 PDR/INJ, PRN, Dosing Weight 106.545, kg, PRN Blood Glucose Results, Start date: 06/15/20 7:36:00 CDT, Duration: 30 day, Stop date: 07/15/20 7:35:00 CDT, 0 Insulin 2020-0 No Notes: Memoria Lispro - (Same as: l 12:36: Humalog) [place] 00 Roll in palms of hands gently; [...] 06-15 Route: IM, l 12:36: Drug form: [place] 00 PDR/INJ, PRN, Dosing Weight 106.545, kg, [...] days from ____Date Dilaudid No Notes: Memoria - Same as l 09:18: Dilaudid [place] 00 Dilaudid 2020-0 No Notes: Memoria 06-15 Same as l 09:18: Dilaudid [place] 00 Dilaudid 2020-0 No Notes: Memoria 06-15 Same as l 09:18: Dilaudid [place] 00 Dilaudid 2020-0 No Notes: Memoria 06-15 Same as l 09:18: Dilaudid [place] 00 Dilaudid 2020-0 No Notes: Memoria 06-15 Same as l 09:18: Dilaudid [place] 00 Nitroglycer 0 No Notes: Brandon karina in 06-15 (Same l 05:09: as:Nitroqu [place] 00 ick, Nitrostat) "Do Not Crush" Sublingual tablet Saline No Notes: Memoria Flush 0.9% 06-15 (Same as: l 05:09: BD [place] 00 Posiflush) Nitroglycer No Notes: Brandon karina in 06-15 (Same l 05:09: as:Nitroqu [place] 00 ick, Nitrostat) "Do Not Crush" Sublingual tablet Saline 0 No Notes: Memoria Flush 0.9% 06-15 (Same as: l 05:09: BD [place] 00 Posiflush) Nitroglycer No Notes: Brandon karina in 06-15 (Same l 05:09: as:Nitroqu [place] 00 ick, Nitrostat) "Do Not Crush" Sublingual tablet Saline 0 No Notes: Memoria Flush 0.9% 06-15 (Same as: l 05:09: BD [place] 00 Posiflush) Nitroglycer 0 No Notes: Brandon karina in 06-15 (Same l 05:09: as:Nitroqu [place] 00 ick, Nitrostat) "Do Not Crush" Sublingual tablet Saline 0 No Notes: Memoria Flush 0.9% 06-15 (Same as: l 05:09: BD [place] 00 Posiflush) Nitroglycer 0 No Notes: Brandon karina in 06-15 (Same l 05:09: as:Nitroqu [place] 00 ick, Nitrostat) "Do Not Crush" Sublingual tablet Saline 2021-0 No Notes: Memoria Flush 0.9% 06-15 (Same as: l 05:09: BD [place] 00 Posiflush) lisinopril No 40 mg = 1 Me moria 40 mg oral 06-15 tab, PO, l tablet 05:00: Daily, 0 [place] 00 Refill(s) lisinopril No 40 mg = 1 Me moria 40 mg oral 06-15 tab, PO, l tablet 05:00: Daily, 0 [place] 00 Refill(s) lisinopril No 40 mg = 1 Me moria 40 mg oral 06-15 tab, PO, l tablet 05:00: Daily, 0 [place] 00 Refill(s) lisinopril 0 No 40 mg = 1 Me moria 40 mg oral 06-15 tab, PO, l tablet 05:00: Daily, 0 [place] 00 Refill(s) lisinopril 0 No 40 mg = 1 Me moria 40 mg oral 06-15 tab, PO, l tablet 05:00: Daily, 0 [place] 00 Refill(s) NovoLog 2020-0 Yes See Memoria 06-15 Instructio l 04:58: ns, 30 U [place] 00 SUB-Q TID-Before Meals, 0 Refill(s) NovoLog 2020-0 Yes See Memoria 06-15 Instructio l 04:58: ns, 30 U [place] 00 SUB-Q TID-Before Meals, 0 Refill(s) NovoLog 2020-0 Yes See Memoria 06-15 Instructio l 04:58: ns, 30 U [place] 00 SUB-Q TID-Before Meals, 0 Refill(s) NovoLog 2020-0 Yes See Memoria 06-15 Instructio l 04:58: ns, 30 U [place] 00 SUB-Q TID-Before Meals, 0 Refill(s) NovoLog 2020-0 Yes See Memoria 06-15 Instructio l 04:58: ns, 30 U [place] 00 SUB-Q TID-Before Meals, 0 Refill(s) insulin 2020-0 Yes See Memoria detemir 100 06-15 Instructio [...] 4-09 Instructio l UNT/ML 04:57: ns, 40U [place] Injectable 00 BID SUB-Q, Solution 0 [Levemir] [...] karina 4-09 Daily, 0 l 04:56: Refill(s) [place] levothyroxi Yes 75 Memori a ne 75 mcg 4-09 microgram l (0.075 mg) 04:56: = 1 tab, Her minor oral tablet 00 PO, Daily, 0 Refill(s) Aspirin 0 Yes 81 mg, PO, [place] karina 4-09 Daily, 0 l 04:56: Refill(s) [place] levothyroxi Yes 75 Memori a ne 75 mcg 4-09 microgram l (0.075 mg) 04:56: = 1 tab, Her minor oral tablet 00 PO, Daily, 0 Refill(s) Aspirin Yes 81 mg, PO, Brandon karina 4-09 Daily, 0 l 04:56: Refill(s) levothyroxi Yes 75 Memori a ne 75 mcg 09 microgram l (0.075 mg) 04:56: = 1 tab, Her minor oral tablet 00 PO, Daily, 0 Refill(s) Aspirin Yes 81 mg, PO, Brandon karina 09 Daily, 0 l 04:56: Refill(s) Fenofibrate Yes 160 mg = 1 Memoria 160 MG Oral 4-09 tab, PO, l Tablet 04:55: Daily, 0 Refill(s) Furosemide Yes 20 mg = 1 Me moria 20 MG Oral 4-09 tab, PO, l Tablet 04:55: Daily, 0 Refill(s) Fenofibrate Yes 160 mg = 1 Memoria 160 MG Oral 4-09 tab, PO, l Tablet 04:55: Daily, 0 Refill(s) Furosemide Yes 20 mg = 1 Me moria 20 MG Oral 4-09 tab, PO, l Tablet 04:55: Daily, 0 Refill(s) Fenofibrate Yes 160 mg = 1 Memoria 160 MG Oral 4-09 tab, PO, l Tablet 04:55: Daily, 0 Refill(s) Furosemide Yes 20 mg = 1 Me moria 20 MG Oral 4-09 tab, PO, l Tablet 04:55: Daily, 0 Refill(s) Fenofibrate Yes 160 mg = 1 Memoria 160 MG Oral 4-09 tab, PO, l Tablet 04:55: Daily, 0 Refill(s) Furosemide Yes 20 mg = 1 Me moria 20 MG Oral 4-09 tab, PO, l Tablet 04:55: Daily, 0 Refill(s) Fenofibrate Yes 160 mg = 1 Memoria 160 MG Oral 4-09 tab, PO, l Tablet 04:55: Daily, 0 Refill(s) Furosemide Yes 20 mg = 1 Me moria 20 MG Oral 4-09 tab, PO, l Tablet 04:55: Daily, 0 [place] 00 Refill(s) Colchicine No 0.6 mg = 1 M emoria 0.6 MG Oral 4-09 tab, PO, l Tablet 04:54: BID, 0 [place] 00 Refill(s) Colchicine No 0.6 mg = 1 M emoria 0.6 MG Oral 4-09 tab, PO, l Tablet 04:54: BID, 0 [place] 00 Refill(s) Colchicine No 0.6 mg = [...] tab, PO, l Tablet 04:54: BID, 0 [place] 00 Refill(s) atenolol Yes 50mg QD Take [address] [facility] (TENORMIN) 4-28 by mouth [facility] 15:23: daily. Medical tablet 08 [place] oxybutynin Yes 5mg [id number] Take [address] [facility] (DITROPAN) 4-28 [id number] by mouth 3 [facility] 5 MG tablet [...] 15:23: subcutaneo Me dical 100 unit/mL 08 [facility] 2 Center (3 mL) InPn (two) injection [...] tablet 08 Center oxybutynin 2017-0 Yes 5mg Q.[id number] Take [address] [facility] (DITROPAN) 4-28 [id number] by mouth 3 [facility] 5 MG tablet [...] tablet 08 Center oxybutynin 2017-0 Yes 5mg Q.[id number] Take [address] [facility] (DITROPAN) 4-28 [id number] by mouth 3 [facility] 5 MG tablet [...] tablet 08 [facility] oxybutynin 2017-0 Yes 5mg Q.[id number] Take [address] [facility] (DITROPAN) 4-28 [id number] by mouth 3 [facility] 5 MG tablet [...] tablet 08 Center oxybutynin 2017-0 Yes 5mg Q.[id number] Take [address] [facility] (DITROPAN) 4-28 [id number] by mouth 3 [facility] 5 MG tablet [...] 1 Mem oria 10 MG 5-02 supp, RI, l Rectal 16:46: Daily, [place] Suppository 00 Constipati [Bisac-Evac on, # 10 ] supp, 0 Refill(s) Atenolol 50 Yes 50 mg = 1 M emoria MG Oral 5-02 tab, PO, l Tablet 16:46: Daily, # [place] 00 30 tab, 0 Refill(s) allopurinol Yes [...] tab, PO, l tablet 16:46: Daily, # [place] 00 30 tab, 0 Refill(s) Docusate Yes 100 mg = 1 Mem oria Sodium 100 5-02 cap, PO, l MG Oral 16:46: BID, [place] Capsule 00 Constipati [Colace] on, # 20 cap, 0 Refill(s) Bisacodyl Yes 10 mg = 1 Mem oria 10 MG 5-02 supp, RI, l Rectal 16:46: Daily, [place] Suppository 00 Constipati [Bisac-Evac on, # 10 [...] Memoria porcine 5-02 unit, l 16:46: SUB-Q, [place] 00 Q12H, 0 Refill(s) glimepiride Yes 4 mg = 1 Me moria 4 mg oral 5-02 tab, PO, l tablet 16:46: Daily, # [place] 00 30 tab, 0 Refill(s) Docusate Yes 100 mg = 1 Mem oria Sodium 100 5-02 cap, PO, l MG Oral 16:46: BID, [place] Capsule 00 Constipati [Colace] on, # 20 cap, 0 Refill(s) Bisacodyl Yes 10 mg = 1 Mem oria 10 MG 5-02 supp, RI, l Rectal 16:46: Daily, [place] Suppository 00 Constipati [Bisac-Evac on, # 10 [...] Insulin, 5-02 scale l Aspart, 16:46: before [place] Human 100 00 meals, UNT/ML SUB-Q, Prefilled [...] 1 Mem oria 10 MG 5-02 supp, RI, l Rectal 16:46: Daily, [place] Suppository 00 [...] Insulin, 5-02 scale l Aspart, 16:46: before [place] Human 100 00 meals, UNT/ML SUB-Q, Prefilled [...] tab, PO, l tablet 16:46: Daily, # [place] 00 30 tab, 0 Refill(s) Docusate Yes 100 mg = 1 Mem oria Sodium 100 5-02 cap, PO, l MG Oral 16:46: BID, [place] Capsule 00 Constipati [Colace] on, # 20 cap, 0 Refill(s) Bisacodyl Yes 10 mg = 1 Mem oria 10 MG 5-02 supp, RI, l Rectal 16:46: Daily, [place] Suppository 00 Constipati [Bisac-Evac on, # 10 [...] a 300 4-14 (Same l 15:20: as:Omnipaq [place] ue 300). Omnipaque Yes Notes: Memori a 300 4-14 (Same l 15:20: as:Omnipaq [place] ue 300). Omnipaque Yes Notes: Memori a 300 4-14 (Same l 15:20: as:Omnipaq [place] ue 300). Omnipaque Yes Notes: Memori a 300 4-14 (Same l 15:20: as:Omnipaq [place] ue 300). Omeprazole Omeprazole No QD Omeprazole [...] pneumococcal 2013-04-21 Completed [facility] 23-valent vaccine 03:02:00 [place] influenza virus 2013-04-21 Completed [facility] vaccine, inactivated 03:02:00 Herm yogesh pneumococcal 2013-04-21 Completed [facility] 23-valent vaccine 03:02:00 [place] influenza virus 2013-04-21 Completed [facility] vaccine, inactivated 03:02:00 Herm yogesh pneumococcal 2013-04-21 Completed [facility] 23-valent vaccine 03:02:00 [place] influenza virus 2013-04-21 Completed [facility] vaccine, inactivated 03:02:00 Herm yogesh pneumococcal 2013-04-21 Completed [facility] 23-valent vaccine 03:02:00 [place] influenza virus 2013-04-21 Completed [facility] vaccine, inactivated 03:02:00 Herm yogesh pneumococcal 2013-04-21 Completed [facility] 23-valent vaccine 03:02:00 [place] influenza virus 2013-04-21 Completed [facility] vaccine, inactivated 03:02:00 Herm yogesh Vital Signs Vital Name Observation Time Observation Value Comments Source height 2022-02-13 17:15:00 68 [in_i] Common [facility] weight 2022-02-13 17:15:00 245 [lb_av] Common [facility] temperature 2022-02-13 17:15:00 98.6 [degF] [facility] bmi 2022-02-13 17:15:00 37.25 kg/m2 [facility] oximetry 2022-02-13 17:15:00 96 % Common [facility] respiratory rate 2022-02-13 17:15:00 16 /min Comm on [facility] blood pressure 2022-02-13 17:15:00 171 mm[Hg] [facility] - systolic [facility] blood pressure 2022-02-13 17:15:00 97 mm[Hg] Common [facility] - diastolic [facility] height 2022-02-06 14:30:00 68 [in_i] Common [facility] weight 2022-02-06 14:30:00 244 [lb_av] Common [facility] temperature 2022-02-06 14:30:00 98.2 [degF] Common [facility] bmi 2022-02-06 14:30:00 37.1 kg/m2 [facility] oximetry 2022-02-06 14:30:00 97 % [facility] respiratory rate 2022-02-06 14:30:00 16 /min Comm on [facility] blood pressure 2022-02-06 14:30:00 164 mm[Hg] Common [facility] - systolic [facility] blood pressure 2022-02-06 14:30:00 90 mm[Hg] [facility] - diastolic [facility] height 2021-02-11 11:20:00 68 [in_i] Common [facility] weight 2021-02-11 11:20:00 235 [lb_av] Common [facility] temperature 2021-02-11 11:20:00 98.7 [degF] [facility] bmi 2021-02-11 11:20:00 35.73 kg/m2 [facility] oximetry 2021-02-11 11:20:00 95 % [facility] blood pressure 2021-02-11 11:20:00 170 mm[Hg] [facility] - systolic [facility] blood pressure 2021-02-11 11:20:00 99 mm[Hg] [facility] - diastolic [facility] height 2021-01-11 08:40:00 68 [in_i] [facility] weight 2021-01-11 08:40:00 235 [lb_av] [facility] temperature 2021-01-11 08:40:00 97.8 [degF] [facility] bmi 2021-01-11 08:40:00 35.73 kg/m2 [facility] oximetry 2021-01-11 08:40:00 95 % [facility] blood pressure 2021-01-11 08:40:00 162 mm[Hg] [facility] - systolic [facility] blood pressure 2021-01-11 08:40:00 90 mm[Hg] [facility] - diastolic [facility] Systolic blood 2021-09-19 22:03:00 127 mm[Hg] [facility] pressure Diastolic blood 2021-09-19 22:03:00 79 mm[Hg] [facility] pressure Heart rate 2021-09-19 22:03:00 80 /min [facility] Body temperature 2021-09-19 22:03:00 36.72 [place] [facility] Respiratory rate 2021-09-19 22:03:00 18 /min [facility] Oxygen saturation in 2021-09-19 22:03:00 97 /min [facility] Arterial blood by Pulse oximetry Body height 2021-09-19 19:13:00 172.7 cm [facility] Body weight 2021-09-19 19:13:00 108.863 kg [facility] BMI 2021-09-19 19:13:00 36.49 kg/m2 [facility] Temperature Oral (F) 2020-06-15 20:48:00 98.0 F [facility] [place] Heart Rate 2020-06-15 20:48:00 [facility] [place] Respitory Rate 2020-06-15 20:48:00 Memori al [place] Systolic (mm Hg) 2020-06-15 20:48:00 Brandon rial [place] Diastolic (mm Hg) 2020-06-15 20:48:00 Mem orial [place] Temperature Oral (F) 2020-06-15 17:22:00 97.6 F [facility] [place] Heart Rate 2020-06-15 17:22:00 [facility] [place] Respitory Rate 2020-06-15 17:22:00 Memori al [place] Systolic (mm Hg) 2020-06-15 17:22:00 Brandon rial [place] Diastolic (mm Hg) 2020-06-15 17:22:00 Mem orial [place] Temperature Oral (F) 2020-06-15 12:55:00 97.6 F [facility] [place] Heart Rate 2020-06-15 12:55:00 [facility] [place] Respitory Rate 2020-06-15 12:55:00 Memori [facility] [place] Systolic (mm Hg) 2020-06-15 12:55:00 Brandon rial [place] Diastolic (mm Hg) 2020-06-15 12:55:00 Mem orial [place] BMI Calculated 2020-06-15 05:09:00 Memori al [place] Height 2020-06-15 04:37:00 172.72 cm [facility] [place] Weight 2020-06-15 04:37:00 [facility] [place] BMI Calculated 2020-06-15 04:37:00 Memori al [place] Heart Rate 2014-02-11 18:33:00 [facility] [place] Systolic (mm Hg) 2014-02-11 18:33:00 Brandon rial [place] Diastolic (mm Hg) 2014-02-11 18:33:00 Mem orial [place] Systolic (mm Hg) 2014-01-21 16:31:00 Brandon rial [place] Heart Rate 2014-01-21 16:31:00 [facility] [place] Diastolic (mm Hg) 2014-01-21 16:31:00 Mem orial [place] Heart Rate 2013-12-24 17:08:00 [facility] [place] Diastolic (mm Hg) 2013-12-24 17:08:00 Mem orial [place] Systolic (mm Hg) 2013-12-24 17:08:00 Brandon rial [place] Systolic (mm Hg) 2013-12-17 17:32:00 Brandon rial [place] Heart Rate 2013-12-17 17:32:00 [facility] [place] Diastolic (mm Hg) 2013-12-17 17:32:00 Mem orial [place] Heart Rate 2013-12-14 20:29:00 [facility] [place] Diastolic (mm Hg) 2013-12-14 20:29:00 Mem orial [place] Respitory Rate 2013-12-14 20:29:00 Memori al [place] Systolic (mm Hg) 2013-12-14 20:29:00 Brandon rial [place] BMI Calculated 2013-12-14 20:29:00 [facility] [place] Weight 2013-12-14 20:29:00 [facility] [place] Height 2013-12-14 20:29:00 172.72 cm [facility] [place] Diastolic (mm Hg) 2013-12-10 14:08:00 Mem orial [place] Systolic (mm Hg) 2013-12-10 14:08:00 Brandon rial [place] Systolic (mm Hg) 2013-12-03 14:19:00 Brandon rial [place] Diastolic (mm Hg) 2013-12-03 14:19:00 Mem orial [place] Diastolic (mm Hg) 2013-11-15 13:38:00 Mem orial [place] Respitory Rate 2013-11-15 13:38:00 Memori al [place] Heart Rate 2013-11-15 13:38:00 [facility] [place] Systolic (mm Hg) 2013-11-15 13:38:00 Brandon rial [place] Temperature Oral (F) 2013-11-15 13:38:00 98.2 F [facility] [place] BMI Calculated 2013-11-15 13:38:00 [facility] [place] Height 2013-11-15 13:38:00 172.72 cm [facility] [place] Weight 2013-11-15 13:38:00 [facility] [place] Heart Rate 2013-11-12 15:07:00 [facility] [place] Diastolic (mm Hg) 2013-11-12 15:07:00 Mem orial [place] Systolic (mm Hg) 2013-11-12 15:07:00 Brandon rial [place] BMI Calculated 2013-07-08 16:51:00 Memori al [place] Height 2013-07-08 16:51:00 172.72 cm [facility] [place] Weight 2013-07-08 16:51:00 [facility] [place] Diastolic (mm Hg) 2013-07-08 16:51:00 Mem orial [place] Systolic (mm Hg) 2013-07-08 16:51:00 Brandon rial [place] Heart Rate 2013-07-08 16:51:00 [facility] [place] Respitory Rate 2013-07-08 16:51:00 Memori al [place] Diastolic (mm Hg) 2013-06-30 17:34:00 Mem orial [place] Systolic (mm Hg) 2013-06-30 17:34:00 Brandon rial [place] Heart Rate 2013-06-28 23:23:00 [facility] [place] Systolic (mm Hg) 2013-06-28 23:23:00 Brandon rial [place] Diastolic (mm Hg) 2013-06-28 23:23:00 Mem orial [place] Heart Rate 2013-06-20 15:01:00 [facility] [place] Respitory Rate 2013-06-20 15:01:00 Memori al [place] Systolic (mm Hg) 2013-06-20 15:01:00 Brandon rial [place] Diastolic (mm Hg) 2013-06-20 15:01:00 Mem orial [place] Temperature Oral (F) 2013-06-20 15:01:00 98.7 F [facility] [place] Height 2013-06-20 15:00:00 172.72 cm [facility] [place] BMI Calculated 2013-06-20 15:00:00 Memori al [place] Weight 2013-06-20 15:00:00 [facility] [place] Diastolic (mm Hg) 2013-06-07 16:00:00 Mem orial [place] Systolic (mm Hg) 2013-06-07 16:00:00 Brandon rial [place] Heart Rate 2013-06-07 16:00:00 [facility] [place] Heart Rate 2013-06-07 15:07:00 [facility] [place] Procedures Procedure Date / Time Performing Clinician Source Performed XR ELBOW 3+ VW RIGHT 2021-09-19 21:32:47 [facility] XR FINGER 2+ VW RIGHT 2021-09-19 21:32:23 [facility] CBC WITH PLATELET AND 2021[facility]09[facility]19 [facility] DIFFERENTIAL LACTIC ACID LEVEL, SEPSIS 2021-09-19 21:13:00 [facility] - NOW AND REPEAT 2X EVERY 3 HOURS COMPREHENSIVE METABOLIC 2021-09-19 21:13:00 [facility] PANEL ESTIMATED GFR 2021-09-19 21:13:00 [facility] Video urodynamic study 2013-06-20 05:00:00 Roberto levin [place] Laminectomy [facility] Plan of Care Planned Activity Planned Date Details Comments Source Future Scheduled 2022-08-25 Screening for [facility] Test 19:18:20 malignant neoplasm of colon (procedure) [code = 657688453] Future Scheduled 2022-08-25 Screening for [facility] Test 19:18:20 malignant neoplasm of colon (procedure) [code = 541783168] Future Scheduled 2022-08-25 COVID-19 VACCINE (#1) [facility] Test 19:18:20 [code = COVID-19 VACCINE (#1)] Future Scheduled 2022-08-25 Pneumococcal Vaccine: [facility] Test 19:18:20 Pediatrics (0 to 5 Years) and At-Risk Patients (6 to 64 Years) (1 - PCV) [code = Pneumococcal Vaccine: Pediatrics (0 to 5 Years) and At-Risk Patients (6 to 64 Years) (1 - PCV)] Future Scheduled 2022-08-25 Hepatitis C screening [facility] Test 19:18:20 (procedure) [code = 107990942] Future Scheduled 2022-08-25 Screening for [facility] Test 19:18:20 malignant neoplasm of colon (procedure) [code = 213478092] Future Scheduled 2022-08-25 Screening for [facility] Test 19:18:20 malignant neoplasm of colon (procedure) [code = 171755148] Future Scheduled 2022-08-25 SHINGLES VACCINES (1 Met [facility] Test 19:18:20 of 2) [code = SHINGLES VACCINES (1 of 2)] Future Scheduled 2022-08-25 INFLUENZA VACCINE Method t Hospital Test 19:18:20 [code = INFLUENZA VACCINE] Future Scheduled 2022-08-25 [facility] Test 19:18:20 malignant neoplasm of colon (procedure) [code = 193821553] Future Scheduled 2022-06-09 COVID-19 VACCINE (#1) [facility] Test 09:45:16 [code = COVID-19 VACCINE (#1)] Future Scheduled 2022-06-09 Pneumococcal Vaccine: [facility] Test 09:45:16 Pediatrics (0 to 5 Years) and At-Risk Patients (6 to 64 Years) (1 - PCV) [code = Pneumococcal Vaccine: Pediatrics (0 to 5 Years) and At-Risk Patients (6 to 64 Years) (1 - PCV)] Future Scheduled 2022-06-09 Hepatitis C screening [facility] Test 09:45:16 (procedure) [code = 610309965] Future Scheduled 2022-06-09 SHINGLES VACCINES (1 Met [facility] Test 09:45:16 of 2) [code = SHINGLES VACCINES (1 of 2)] Future Scheduled 2022-06-09 COLONOSCOPY SCREENING [facility] Test 09:45:16 [code = COLONOSCOPY SCREENING] Future Scheduled 2022-06-09 INFLUENZA VACCINE Method [facility] Test 09:45:16 [code = INFLUENZA VACCINE] Future Scheduled 2022-06-09 COVID-19 VACCINE (#1) [facility] Test 09:45:16 [code = COVID-19 VACCINE (#1)] Future Scheduled 2022-06-09 Pneumococcal Vaccine: [facility] Test 09:45:16 Pediatrics (0 to 5 Years) and At-Risk Patients (6 to 64 Years) (1 - PCV) [code = Pneumococcal Vaccine: Pediatrics (0 to 5 Years) and At-Risk Patients (6 to 64 Years) (1 - PCV)] Future Scheduled 2022-06-09 Hepatitis C screening [facility] Test 09:45:16 (procedure) [code = 701137379] Future Scheduled 2022-06-09 SHINGLES VACCINES (1 Met [facility] Test 09:45:16 of 2) [code = SHINGLES VACCINES (1 of 2)] Future Scheduled 2022-06-09 [facility] Test 09:45:16 malignant neoplasm of colon (procedure) [code = 138921564] Future Scheduled 2022-06-09 INFLUENZA VACCINE Method is Hospital Test 09:45:16 [code = INFLUENZA VACCINE] Future Scheduled 2021-11-09 HEPATITIS B VACCINES Met [facility] Test 11:01:57 (1 of 3 - 3-dose series) [code = HEPATITIS B VACCINES (1 of 3 - 3-dose series)] Future Scheduled 2021-11-09 COVID-19 VACCINE (#1) [facility] Test 11:01:57 [code = COVID-19 VACCINE (#1)] Future Scheduled 2021-11-09 Pneumococcal Vaccine: [facility] Test 11:01:57 Pediatrics (0 to 5 Years) and At-Risk Patients (6 to 64 Years) (1 - PCV) [code = Pneumococcal Vaccine: Pediatrics (0 to 5 Years) and At-Risk Patients (6 to 64 Years) (1 - PCV)] Future Scheduled 2021-11-09 Hepatitis C screening [facility] Test 11:01:57 (procedure) [code = 009379194] Future Scheduled 2021-11-09 SHINGLES VACCINES (1 Met [facility] Test 11:01:57 of 2) [code = SHINGLES VACCINES (1 of 2)] Future Scheduled 2021-11-09 COLONOSCOPY SCREENING [facility] Test 11:01:57 [code = COLONOSCOPY SCREENING] Future Scheduled 2021-11-09 INFLUENZA VACCINE Method [facility] Test 11:01:57 [code = INFLUENZA VACCINE] Encounters Start End Encounter Admission Attending Care Care Encounter Source Date/Time Date/Time Type Type Clinicians Facility Department ID 2022-08-27 [facility] [id number] Common 13:01:00 Ramon [id number] [facility] 2022-02-04 Outpatient Powers, [facility] [id number] Common 11:07:02 Ramon [id number] [facility] 2021-04-03 Outpatient Powers, [facility] [id number] Common 14:09:15 Ramon [id number] [facility] 2021-04-03 Outpatient [facility] [id number] Common 12:01:03 [id number] [facility] 2022-10-03 2022-10-03 Outpatient Shilo_capo [facility] [address] Devoted 00:00:00 00:00:00 0728 Medica l Group 2022-08-21 2022-08-21 CORBY Visit Mychal Fuentes 2.16.840. 2.16.840.1 . [id number] [facility] 12:30:00 13:30:00 [id number]. 833392.4.6. S Medical 4.6.05628 [id number] 2022-06-13 2022-06-13 CORBY Visit Wilner Elise 2.16.840. 2.16.840.1 . [id number] [facility] 18:30:00 19:30:00 1.264203. 347193.4.6. GE [facility] 4.6.45340 [id number] 2022-06-05 2022-06-05 CAV Duyen 2.16.840. 2.16.840.1. AWA [id number] [facility] 17:00:00 18:00:00 Shilo 1.563090. 410070.4.6. [facility] Medical 4.6.79862 [id number] 2022-03-22 2022-03-22 (TEL) STLMLC STLMLC [id number] Co mmon 00:00:00 00:00:00 Spirit - [facility] 2022-03-18 2022-03-18 (ESTPT) STLMLC STLMLC [id number] Co mmon 00:00:00 00:00:00 Toña goode Patient - [facility] 2022-02-13 2022-02-13 OFFICE STLMLC STLMLC [id number] Co mmon 00:00:00 00:00:00 VISIT EST Spir it PT LEVEL 3 - [facility] 2022-02-06 2022-02-06 OFFICE STLMLC STLMLC [id number] Co mmon 00:00:00 00:00:00 VISIT EST Spir it PT LEVEL 3 - [facility] 2022-01-02 2022-01-02 CAV Duyen 2.16.840. 2.16.840.1. AWA [id number] [facility]oted 18:00:00 19:00:00 Shilo 1.057710. 499191.4.6. G5E [facility] 4.6.01990 [id number] 2021-12-25 2021-12-25 [facility] [id number] Devoted 00:00:00 00:00:00 1019 Medica l Group 2021-12-25 2021-12-25 Outpatient Shilo_b [facility] [id number] Devoted 00:00:00 00:00:00 0506 Medica l Group 2021-09-24 2021-09-24 Travel 1.2.840.1 [id number] [id number] Methodi 00:00:00 00:00:[address] 3.430.2.7 0.2.7.3.698 Ho spita .3.883634 084.8 l .8 2021-09-20 2021-09-20 Outpatient Trevino_M [facility] [id number] Devoted 03:38:00 03:38:00 0715 Medica l Group 2021-09-19 2021-09-19 Emergency Amato, 1.2.840.1 [id number] Methodi 15:47:00 18:31:[address] 3.430.2.7 Hospit a .3.994849 l .8 2021-09-19 2021-09-19 (TEL) STLMLC STLC [id number] Co mmon 00:00:00 00:00:00 [facility] 2021-09-19 2021-09-19 Travel 1.2.840.1 [id number] [id number] Methodi 00:00:00 00:00:[address] 3.430.2.7 0.2.7.3.698 Ho spita .3.990363 084.8 l .8 2021-09-18 2021-09-18 (TEL) STLMLC STLMLC [id number] Co mmon 00:00:00 00:00:00 [facility] 2021-07-05 2021-07-05 CORBY Avis 2.16.840. 2.16.840.1. CLAC [id number] Devoted 16:30:00 17:00:00 Jackson 1.663469. 726765.4.6. [facility] 4.6.70495 [id number] 2021-06-24 2021-06-24 CORBY Avis 2.16.840. 2.16.840.1. CLAC [id number] Devoted 16:30:00 17:00:00 Jackson 1.408892. 898201.4.6. [facility] 4.6.01322 [id number] 2021-06-21 2021-06-21 CORBY Avis 2.16.840. 2.16.840.1. CLAC [id number] Devoted 14:00:00 14:30:00 Jackson 1.459912. 733939.4.6. 5JR Medical 4.6.97903 [id number] 2021-06-14 2021-06-14 CORBY Avis 2.16.840. 2.16.840.1. CLAC [id number] [facility]oted 14:30:00 15:30:00 Jackson 1.464181. 123301.4.6. 85U Medical 4.6.42641 [id number] 2021-04-23 2021-04-23 Outpatient Trevino_M [facility] [id number] -2021 Devoted 08:00:00 08:00:00 0215 Medica l Group 2021-03-21 2021-03-21 CAV Nell 2.16.840. 2.16.840.1. CLAC [id number] [facility] 16:30:00 17:30:00 Joan 1.302679. 477048.4.6. Z[facility] Medical 4.6.55876 [id number] 2021-03-12 2021-03-12 Outpatient Trevino_M [facility] [id number] -2021 Devoted 03:11:00 03:11:00 0104 Medica l Group 2021-02-11 2021-02-11 Outpatient CURRY_S [facility] DMG [id number] [facility] 05:35:00 05:35:00 1206 [facility] 2021-02-11 2021-02-11 OFFICE STLMLC STLMLC [id number] Co mmon 00:00:00 00:00:00 VISIT EST Spir it PT LEVEL 3 - [facility] 2021-01-11 2021-01-11 OFFICE STLMLC STLMLC [id number] Co mmon 00:00:00 00:00:00 VISIT EST Spir it PT LEVEL 3 - [facility] 2020-06-15 2020-06-16 Observatio nullFlavo [facility] [id number] Memoria 05:09:00 00:09:00 karl Caruso 98 l [facility] 2020-06-15 2020-06-16 Observatio nullFlavo [facility] [id number] Memoria 05:09:00 00:09:00 karl Mchugh l [facility] 2020-06-15 2020-06-15 Outpatient U [facility] [id number] Memoria 00:09:00 19:09:00 MANDEEP Caruso [facility] 2020-06-15 2020-06-15 [id number] 00:09:00 19:09:00 Mandeep 98 2020-02-14 2020-02-14 Outpatient STLMLC STLMLC [id number] Common 00:00:00 00:00:00 [facility] 2020-02-07 2020-02-07 Outpatient STLMLC STLMLC [id number] Common 00:00:00 00:00:00 [facility] 2020-01-17 2020-01-17 Outpatient STLMLC STLMLC [id number] Common 00:00:00 00:00:00 [facility] 2020-01-16 2020-01-16 Outpatient STLMLC STLMLC [id number] Common 00:00:00 00:00:00 [facility] 2020-01-09 2020-01-09 Outpatient STLMLC STLMLC [id number] Common 00:00:00 00:00:00 [facility] 2014-01-21 2014-02-20 [facility] [id number] [facility]oria 14:00:00 05:59:00 Therapy tamie Caruso 09 irais Caruso 2014-01-21 2014-02-20 [facility] [id number] Memoria 14:00:00 05:59:00 Therapy tamie Caruso 09 irais Caruso 2014-01-21 2014-02-19 Outpatient Tastard, 2.16.840. 2.16.840.1. [id number] 08:00:00 23:59:00 Birdie Amparo [id number]. [id number] 09 3.615.0.1 5.0.442 33 3397-11-15 2014-02-19 Outpatient Tastard, 2.16.840. 2.16.840.1. [id number] 08:00:00 23:59:00 Birdie Amparo [id number]. [id number] 09 3.615.0.1 5.0.233 89 8143-11-15 2014-02-19 Outpatient Tastard, 2.16.840. 2.16.840.1. [id number] 08:00:00 23:59:00 Birdie Amparo [id number]. [id number] 09 3.615.0.1 5.0.648 51 2111-10-11 2014-01-16 [facility] [id number] Memoria 13:00:00 05:59:00 Therapy tamie Caruso 08 irais Caruso 2013-12-17 2014-01-16 [facility] [id number] Memoria 13:00:00 05:59:00 Therapy tamie Caruso 08 irais Caruso 2013-12-17 2014-01-15 Outpatient Tastard, 2.16.840. 2.16.840.1. [id number] 08:00:00 23:59:00 Birdie Amparo [id number]. [id number] 08 3.615.0.1 5.0.473 14 6731-10-08 2013-12-15 [facility] [id number] Memoria 19:55:00 04:59:00 r Shady 11 irais Caruso 2013-12-14 2013-12-15 [facility] [id number] Memoria 19:55:00 04:59:00 r Shady 11 irais Caruso 2013-12-14 2013-12-14 Outpatient Nicholas, 2.16.840. 2.16.840.1. 3 [id number] 14:55:00 23:59:00 Gamaliel [id number]. [id number] 11 Daniel 3.615.0.1 5.0.578 85 2485-09-06 2013-12-12 [facility] [id number] Memoria 13:00:00 04:59:00 Therapy r Shady 07 irais Caruso 2013-11-12 2013-12-12 [facility] [id number] Memoria 13:00:00 04:59:00 Therapy r Shady 07 l ADEN Caruso 2013-11-12 2013-12-11 Outpatient Tastard, 2.16.840. 2.16.840.1. [id number] 08:00:00 23:59:00 Birdie Amparo [id number]. [id number] 07 3.615.0.1 5.0.711 64 2530-09-09 2013-11-16 [facility] [id number] Memoria 13:01:00 04:59:00 r Shady 10 irais Caruso 2013-11-15 2013-11-16 [facility] [id number] Memoria 13:01:00 04:59:00 r Shady 10 l ADEN Caruso 2013-11-15 2013-11-15 Outpatient Michelle, 2.16.840. 2.16.840.1. 3 [id number] 08:01:00 23:59:00 Cori Rodriguez [id number]. [id number] 10 3.615.0.1 5.0.926 86 1700-08-02 2013-11-07 [facility] [id number] Memoria 13:00:00 04:59:00 Therapy r Shady 06 l ADEN Caruso 2013-10-08 2013-11-07 [facility] [id number] Memoria 13:00:00 04:59:00 Therapy r [place] 06 l ADEN Caruso 2013-10-08 2013-11-06 Outpatient Tastard, 2.16.840. 2.16.840.1. [id number] 08:00:00 23:59:00 Birdie Amparo [id number]. [id number] 06 3.615.0.1 5.0.790 40 3713-07-05 2013-10-10 [facility] [id number] Memoria 13:00:00 04:59:00 Therapy r Shady 05 irais Caruso 2013-09-10 2013-10-10 Tots nullFlavo [facility] [id number] Memoria 13:00:00 04:59:00 Therapy r Shady 05 l ADEN Laneann 2013-09-10 2013-10-09 Outpatient Tastard, 2.16.840. 2.16.840.1. [id number] 08:00:00 23:59:00 Birdie Amparo [id number]. [id number] 05 3.615.0.1 5.0.672 04 6679-05-02 2013-07-09 [facility] [id number] Memoria 16:26:00 04:59:00 r Shady 04 l ADEN Laneann 2013-07-08 2013-07-09 [facility] [id number] Memoria 16:26:00 04:59:00 r [place] 04 l ADEN Caruso 2013-07-08 2013-07-08 Outpatient Tastard, 2.16.840. 2.16.840.1. [id number] 11:26:00 23:59:00 Birdie Amparo [id number]. [id number] 04 3.615.0.1 5.0.903 79 7794-04-01 2013-07-07 [facility] [id number] Memoria 14:13:00 04:59:00 Therapy r Shady 03 l PASCUALR Shady 2013-06-07 2013-07-07 Tots nullFlavo [facility] [id number] Memoria 14:13:00 04:59:00 Therapy r [place] 03 l TIRR Shady 2013-06-07 2013-07-06 Outpatient Katietaadnielle, 2.16.840. 2.16.840.1. [id number] 09:13:00 23:59:00 Birdie Christensen [id number]. [id number] 03 3.615.0.1 5.0.900 00 1660-04-14 2013-06-21 Outpatient nullFlavo [facility] [id number] Memoria 14:43:00 04:59:00 r [place] 02 l TIRR Shady 2013-06-20 2013-06-21 Outpatient nullFlavo [facility] [id number] Memoria 14:43:00 04:59:00 r [place]ady 02 l ADEN Caruso 2013-06-20 2013-06-20 Outpatient Darekini, 2.16.840. 2.16.840.1. [id number] 09:43:00 23:59:00 Tung Salguero [id number]. [id number] 02 3.615.0.1 5.0.101 01 Results Test Description Test Time Test Comments Results Result Comments Source URINE AND STOOL 2020-06-15 16:30:00 Test Item Value Reference Range Interpretation Comme nts UA Nitrite (test code = UA Nitrite) Positive *ABN*(06/15/20 11:30 AM) [facility] AND [id number] 16:30:00 Test Item Value Reference Range Interpretation Comments UA Leuk Est (test code Large *ABN*(06/15/20 = UA Leuk Est) 11:30 AM) [facility] [id number] 16:30:00 Test Item Value Reference Range Interpretation Comments UA WBC (test code = 84 See_Comment [Automa faye message] The UA WBC) system which ge nerated this result transmit faye reference range : <=5. The reference range was not used to interpr et this result as nathaly l/abnormal. [facility] [id number] 16:30:00 Test Item Value Reference Range Interpretation Comments UA RBC (test code = 9 See_Comment [Automa faye message] The UA RBC) system which ge nerated this result transmit faye reference range : <=2. The reference range was not used to interpr et this result as nathaly l/abnormal. [facility] AND [id number] 16:30:00 Test Item Value Reference Range Interpretation Comments UA Bacteria (test code = UA Moderate /HPF Bacteria) [facility] AND [id number] 16:30:00 Test Item Value Reference Range Interpretation Comments UA Sq Epi (test code = UA Sq Epi) None Seen [facility] AND [id number] 16:30:00 Test Item Value Reference Range Interpretation Comments UA Color (test code = UA Color) Chani [facility] AND [id number] 16:30:00 Test Item Value Reference Range Interpretation Comments UA Glucose (test code = UA Glucose) 500 [facility] AND [id number] 16:30:00 Test Item Value Reference Range Interpretation Comments UA Urobilinogen (test code = UA <=1.0 mg/dL 0.1-1.0 Urobilinogen) [facility]C:PT:ISOLATE:ORDQN:[id number] 16:30:00 Test Item Value Reference Range Interpretation Comments Culture: Urine (test >100,000 CFU/mL Proteus code = Culture: mirabilis >100,000 Urine) CFU/mL Skin [facility]C:PT:ISOLATE:ORDQN:[id number] 16:30:00 Test Item Value Reference Range Interpretation Comments Proteus mirabilis (test Proteus mirabilis code = Proteus mirabilis) [facility] AND [id number] 16:30:00 Test Item Value Reference Range Interpretation Comments UA Turbidity (test code Marked *ABN*(06/15/20 = UA Turbidity) 11:30 AM) [facility] AND [id number] 16:30:00 Test Item Value Reference Range Interpretation Comments UA Spec Grav (test code = UA Spec 1.022 1 Grav) [facility] AND [id number] 16:30:00 Test Item Value Reference Range Interpretation Comments UA pH (test code = UA pH) 7.0 1 5.0-8.0 [facility] [id number] 16:30:00 Test Item Value Reference Range Interpretation Comments UA Protein (test code = UA Protein) 100 mg/dL [facility] [id number] 16:30:00 Test Item Value Reference Range Interpretation Comments UA Ketones (test code = UA Trace mg/dL Ketones) [facility] [id number] 16:30:00 Test Item Value Reference Range Interpretation Comments UA Bili (test code = Negative *NA*(06/15/20 UA Bili) 11:30 AM) [facility] AND [id number] 16:30:00 Test Item Value Reference Range Interpretation Comments UA Blood (test code = Small *ABN*(06/15/20 UA Blood) 11:30 AM) [facility] AND [id number] 16:30:00 Test Item Value Reference Range Interpretation Comments UA Nitrite (test code Positive *ABN*(06/15/20 = UA Nitrite) 11:30 AM) [facility] AND [id number] 16:30:00 Test Item Value Reference Range Interpretation Comments UA Leuk Est (test code Large *ABN*(06/15/20 = UA Leuk Est) 11:30 AM) [facility] AND [id number] 16:30:00 Test Item Value Reference Range Interpretation Comments UA WBC (test code = 84 See_Comment [Automa faye message] The UA WBC) system which ge nerated this result transmit faye reference range : <=5. The reference range was not used to interpr et this result as nathaly l/abnormal. [facility] [id number] 16:30:00 Test Item Value Reference Range Interpretation Comments UA RBC (test code = 9 See_Comment [Automa faye message] The UA RBC) system which ge nerated this result transmit faye reference range : <=2. The reference range was not used to interpr et this result as nathaly l/abnormal. [facility] [id number] 16:30:00 Test Item Value Reference Range Interpretation Comments UA Bacteria (test code = UA Moderate /HPF Bacteria) [facility] [id number] 16:30:00 Test Item Value Reference Range Interpretation Comments UA Sq Epi (test code = UA Sq Epi) None Seen [facility] AND [id number] 16:30:00 Test Item Value Reference Range Interpretation Comments UA Color (test code = UA Color) Chani [facility] AND [id number] 16:30:00 Test Item Value Reference Range Interpretation Comments UA Glucose (test code = UA Glucose) 500 [facility] AND [id number] 16:30:00 Test Item Value Reference Range Interpretation Comments UA Urobilinogen (test code = UA <=1.0 mg/dL 0.1-1.0 Urobilinogen) [facility]:ISOLATE:ORDQN:[id number] 16:30:00 Test Item Value Reference Range Interpretation Comments Culture: Urine (test >100,000 CFU/mL Proteus code = Culture: mirabilis >100,000 Urine) CFU/mL Skin [facility]AZID[facility]:SUSC:PT:ISOLATE:ORDQN:[id number] 16:30:00 Test Item Value Reference Range Interpretation Comments Proteus mirabilis (test Proteus mirabilis code = Proteus mirabilis) [facility] AND [id number] 16:30:00 Test Item Value Reference Range Interpretation Comments UA Turbidity (test code Marked *ABN*(06/15/20 = UA Turbidity) 11:30 AM) [facility] AND [id number] 16:30:00 Test Item Value Reference Range Interpretation Comments UA Spec Grav (test code = UA Spec 1.022 1 Grav) [facility] AND [id number] 16:30:00 Test Item Value Reference Range Interpretation Comments UA pH (test code = UA pH) 7.0 1 5.0-8.0 [facility] AND [id number] 16:30:00 Test Item Value Reference Range Interpretation Comments UA Protein (test code = UA Protein) 100 mg/dL [facility] AND [id number] 16:30:00 Test Item Value Reference Range Interpretation Comments UA Ketones (test code = UA Trace mg/dL Ketones) [facility] AND [id number] 16:30:00 Test Item Value Reference Range Interpretation Comments UA Bili (test code = Negative *NA*(06/15/20 UA Bili) 11:30 AM) [facility] [id number] 16:30:00 Test Item Value Reference Range Interpretation Comments UA Blood (test code = Small *ABN*(06/15/20 UA Blood) 11:30 AM) [facility] [id number] 16:30:00 Test Item Value Reference Range Interpretation Comments UA Nitrite (test code Positive *ABN*(06/15/20 = UA Nitrite) 11:30 AM) [facility] [id number] 16:30:00 Test Item Value Reference Range Interpretation Comments UA Leuk Est (test code Large *ABN*(06/15/20 = UA Leuk Est) 11:30 AM) [facility] [id number] 16:30:00 Test Item Value Reference Range Interpretation Comments UA WBC (test code = 84 See_Comment [Automa faye message] The UA WBC) system which ge nerated this result transmit faye reference range : <=5. The reference range was not used to interpr et this result as nathaly l/abnormal. [facility] [id number] 16:30:00 Test Item Value Reference Range Interpretation Comments UA RBC (test code = 9 See_Comment [Automa faye message] The UA RBC) system which ge nerated this result transmit faye reference range : <=2. The reference range was not used to interpr et this result as nathaly l/abnormal. [facility] [id number] 16:30:00 Test Item Value Reference Range Interpretation Comments UA Bacteria (test code = UA Moderate /HPF Bacteria) [facility] [id number] 16:30:00 Test Item Value Reference Range Interpretation Comments UA Sq Epi (test code = UA Sq Epi) None [facility]en [facility] [id number] 16:30:00 Test Item Value Reference Range Interpretation Comments UA Color (test code = UA Color) [facility]ani [facility] [id number] 16:30:00 Test Item Value Reference Range Interpretation Comments UA Glucose (test code = UA Glucose) 500 [facility] AND [id number] 16:30:00 Test Item Value Reference Range Interpretation Comments UA Urobilinogen (test code = UA <=1.0 mg/dL 0.1-1.0 Urobilinogen) [facility]ID[facility]:PT:ISOLATE:ORDQN:[id number] 16:30:00 Test Item Value Reference Range Interpretation Comments Culture: Urine (test >100,000 CFU/mL Proteus code = Culture: mirabilis >100,000 Urine) CFU/mL Skin [facility] CenterID[facility]:SUSC:PT:ISOLATE:ORDQN:[id number] 16:30:00 Test Item Value Reference Range Interpretation Comments Proteus mirabilis (test Proteus mirabilis code = Proteus mirabilis) [facility] AND [id number] 16:30:00 Test Item Value Reference Range Interpretation Comments UA Turbidity (test code Marked *ABN*(06/15/20 = UA Turbidity) 11:30 AM) [facility] AND [id number] 16:30:00 Test Item Value Reference Range Interpretation Comments UA Spec Grav (test code = UA Spec 1.022 1 Grav) [facility] AND [id number] 16:30:00 Test Item Value Reference Range Interpretation Comments UA pH (test code = UA pH) 7.0 1 5.0-8.0 [facility] AND [id number] 16:30:00 Test Item Value Reference Range Interpretation Comments UA Protein (test code = UA Protein) 100 mg/dL [facility] AND [id number] 16:30:00 Test Item Value Reference Range Interpretation Comments UA Ketones (test code = UA Trace mg/dL Ketones) [facility] AND [id number] 16:30:00 Test Item Value Reference Range Interpretation Comments UA Bili (test code = Negative *NA*(06/15/20 UA Bili) 11:30 AM) [facility] AND [id number] 16:30:00 Test Item Value Reference Range Interpretation Comments UA Blood (test code = Small *ABN*(06/15/20 UA Blood) 11:30 AM) [facility] AND [id number] 16:30:00 Test Item Value Reference Range Interpretation Comments UA Nitrite (test code Positive *ABN*(06/15/20 = UA Nitrite) 11:30 AM) [facility] [id number] 16:30:00 Test Item Value Reference Range Interpretation Comments UA Leuk Est (test code Large *ABN*(06/15/20 = UA Leuk Est) 11:30 AM) [facility] [id number] 16:30:00 Test Item Value Reference Range Interpretation Comments UA WBC (test code = 84 See_Comment [Automa faye message] The UA WBC) system which ge nerated this result transmit faye reference range : <=5. The reference range was not used to interpr et this result as nathaly l/abnormal. [facility] [id number] 16:30:00 Test Item Value Reference Range Interpretation Comments UA RBC (test code = 9 See_Comment [Automa faye message] The UA RBC) system which ge nerated this result transmit faye reference range : <=2. The reference range was not used to interpr et this result as nathaly l/abnormal. [facility] [id number] 16:30:00 Test Item Value Reference Range Interpretation Comments UA Bacteria (test code = UA Moderate /HPF Bacteria) [facility] [id number] 16:30:00 Test Item Value Reference Range Interpretation Comments UA Sq Epi (test code = UA Sq Epi) None [facility]en [facility] [id number] 16:30:00 Test Item Value Reference Range Interpretation Comments UA Color (test code = UA Color) [facility] [id number] 16:30:00 Test Item Value Reference Range Interpretation Comments UA Glucose (test code = UA Glucose) 500 [facility] [id number] 16:30:00 Test Item Value Reference Range Interpretation Comments UA Urobilinogen (test code = UA <=1.0 mg/dL 0.1-1.0 Urobilinogen) [facility]annCEFTAZIDIME:SUSC:PT:ISOLATE:ORDQN:[id number] 16:30:00 Test Item Value Reference Range Interpretation Comments Culture: Urine (test >100,000 CFU/mL Proteus code = Culture: mirabilis >100,000 Urine) CFU/mL Skin Emily [facility] ShadyCEFTAZIDIME:SUSC:PT:ISOLATE:ORDQN:[id number] 16:30:00 Test Item Value Reference Range Interpretation Comments Proteus mirabilis (test Proteus mirabilis code = Proteus mirabilis) [facility] AND [id number] 16:30:00 Test Item Value Reference Range Interpretation Comments UA Turbidity (test code Marked *ABN*(06/15/20 = UA Turbidity) 11:30 AM) [facility] AND [id number] 16:30:00 Test Item Value Reference Range Interpretation Comments UA Spec Grav (test code = UA Spec 1.022 1 Grav) [facility] AND [id number] 16:30:00 Test Item Value Reference Range Interpretation Comments UA pH (test code = UA pH) 7.0 1 5.0-8.0 [facility] AND [id number] 16:30:00 Test Item Value Reference Range Interpretation Comments UA Protein (test code = UA Protein) 100 mg/dL [facility] AND [id number] 16:30:00 Test Item Value Reference Range Interpretation Comments UA Ketones (test code = UA Trace mg/dL Ketones) [facility] AND [id number] 16:30:00 Test Item Value Reference Range Interpretation Comments UA Bili (test code = Negative *NA*(06/15/20 UA Bili) 11:30 AM) [facility] AND [id number] 16:30:00 Test Item Value Reference Range Interpretation Comments UA Blood (test code = Small *ABN*(06/15/20 UA Blood) 11:30 AM) [facility] AND [id number] 16:30:00 Test Item Value Reference Range Interpretation Comments UA Blood (test code = Small *ABN*(06/15/20 UA Blood) 11:30 AM) [facility] AND [id number] 16:30:00 Test Item Value Reference Range Interpretation Comments UA Nitrite (test code Positive *ABN*(06/15/20 = UA Nitrite) 11:30 AM) [facility] AND [id number] 16:30:00 Test Item Value Reference Range Interpretation Comments UA Leuk Est (test code Large *ABN*(06/15/20 = UA Leuk Est) 11:30 AM) [facility] AND [id number] 16:30:00 Test Item Value Reference Range Interpretation Comments UA WBC (test code = 84 See_Comment [Automa faye message] The UA WBC) system which ge nerated this result transmit faye reference range : <=5. The reference range was not used to interpr et this result as nathaly l/abnormal. [facility] [id number] 16:30:00 Test Item Value Reference Range Interpretation Comments UA RBC (test code = 9 See_Comment [Automa faye message] The UA RBC) system which ge nerated this result transmit faye reference range : <=2. The reference range was not used to interpr et this result as nathaly l/abnormal. [facility] [id number] 16:30:00 Test Item Value Reference Range Interpretation Comments UA Bacteria (test code = UA Moderate /HPF Bacteria) [facility] [id number] 16:30:00 Test Item Value Reference Range Interpretation Comments UA Sq Epi (test code = UA Sq Epi) None Seen [facility] [id number] 16:30:00 Test Item Value Reference Range Interpretation Comments UA Color (test code = UA Color) [facility] [id number] 16:30:00 Test Item Value Reference Range Interpretation Comments UA Glucose (test code = UA Glucose) 500 [facility] [id number] 16:30:00 Test Item Value Reference Range Interpretation Comments UA Urobilinogen (test code = UA <=1.0 mg/dL 0.1-1.0 Urobilinogen) [facility] ShadyCEFTAZIDIME:SUSC:PT:ISOLATE:ORDQN:[id number] 16:30:00 Test Item Value Reference Range Interpretation Comments Culture: Urine (test >100,000 CFU/mL Proteus code = Culture: mirabilis >100,000 Urine) CFU/mL Skin Emily [facility] ShadyZAKFTAZIDIME:SUSC:PT:ISOLATE:ORDQN:[id number] 16:30:00 Test Item Value Reference Range Interpretation Comments Proteus mirabilis (test Proteus mirabilis code = Proteus mirabilis) [facility] [id number] 16:30:00 Test Item Value Reference Range Interpretation Comments UA Turbidity (test code Marked *ABN*(06/15/20 = UA Turbidity) 11:30 AM) [facility] AND [id number] 16:30:00 Test Item Value Reference Range Interpretation Comments UA Spec Grav (test code = UA Spec 1.022 1 Grav) [facility] AND [id number] 16:30:00 Test Item Value Reference Range Interpretation Comments UA pH (test code = UA pH) 7.0 1 5.0-8.0 [facility] AND [id number] 16:30:00 Test Item Value Reference Range Interpretation Comments UA Protein (test code = UA Protein) 100 mg/dL [facility] AND [id number] 16:30:00 Test Item Value Reference Range Interpretation Comments UA Ketones (test code = UA Trace mg/dL Ketones) [facility] AND [id number] 16:30:00 Test Item Value Reference Range Interpretation Comments UA Bili (test code = Negative *NA*(06/15/20 UA Bili) 11:30 AM) [facility] CenterTRONICS GROUPAC [id number] 10:57:00 Test Item Value Reference Range Interpretation Comments Troponin-I (test code no gt See_Comment [Auto mated message] The = Troponin-I) system which g enerated this result transmit faye reference range : <=0.40. The reference r rodrigo was not used to interpr et this result as nathaly l/abnormal. [facility] [id number] 10:57:00 Test Item Value Reference Range Interpretation Comments Troponin-I (test code no gt See_Comment [Auto mated message] The = Troponin-I) system which g enerated this result transmit faye reference range : <=0.40. The reference r rodrigo was not used to interpr et this result as nathaly l/abnormal. [facility]Social[facility] [id number] 10:57:00 Test Item Value Reference Range Interpretation Comments Troponin-I (test code no gt See_Comment [Auto mated message] The = Troponin-I) system which g enerated this result transmit faye reference range : <=0.40. The reference r rodrigo was not used to interpr et this result as nathaly l/abnormal. [facility] [id number] 10:57:00 Test Item Value Reference Range Interpretation Comments Troponin-I (test code no gt See_Comment [Auto mated message] The = Troponin-I) system which g enerated this result transmit faye reference range : <=0.40. The reference r rodrigo was not used to interpr et this result as nathaly l/abnormal. [facility] [id number] 10:57:00 Test Item Value Reference Range Interpretation Comments Troponin-I (test code no gt See_Comment [Auto mated message] The = Troponin-I) system which g enerated this result transmit faye reference range : <=0.40. The reference r rodrigo was not used to interpr et this result as nathaly l/abnormal. [facility] TexasSocialspiel [id number] 06:53:00 Test Item Value Reference Range Interpretation Comments Troponin-I (test code no gt See_Comment [Auto mated message] The = Troponin-I) system which g enerated this result transmit faye reference range : <=0.40. The reference r rodrigo was not used to interpr et this result as nathaly l/abnormal. [facility] [id number] 06:53:00 Test Item Value Reference Range Interpretation Comments Trig (test code = Trig) 330 [facility] DtfcoynSBBWBH3848-33-92 06:53:00 Test Item Value Reference Range Interpretation Comments Chol (test code = Chol) 174 [facility] TexasKnaosmvJIEMCT9323-90-08 06:53:00 Test Item Value Reference Range Interpretation Comments HDL (test code = HDL) 28 [facility] TexasCugxalfPSOFIQ4940-69-14 06:53:00 Test Item Value Reference Range Interpretation Comments CHD Risk (test code = CHD Risk) 6.21 1 4.00-7.30 [facility] EfmqhbuJCXFII4271-41-93 06:53:00 Test Item Value Reference Range Interpretation Comments LDL (Calculated) (test code = LDL 80 (Calculated)) [facility] TexasYpzvymhJFLFBF5671-66-04 06:53:00 Test Item Value Reference Range Interpretation Comments VLDL (test code = VLDL) 66 1 [facility] TexasDemeure2021-04-09 06:53:00 Test Item Value Reference Range Interpretation Comments Troponin-I (test code no gt See_Comment [Auto mated message] The = Troponin-I) system which g enerated this result transmit faye reference range : <=0.40. The reference r rodrigo was not used to interpr et this result as nathaly l/abnormal. [facility] FqthnwkZRMZMD1757-47-18 06:53:00 Test Item Value Reference Range Interpretation Comments Trig (test code = Trig) 330 [facility] TexasXfbxibnBDMEJU2224-41-09 06:53:00 Test Item Value Reference Range Interpretation Comments Chol (test code = Chol) 174 [facility] JsflzqzNJZFOY7979-24-65 06:53:00 Test Item Value Reference Range Interpretation Comments HDL (test code = HDL) 28 [facility] TexasBtpnguqBHSCMV5748-68-69 06:53:00 Test Item Value Reference Range Interpretation Comments CHD Risk (test code = CHD Risk) 6.21 1 4.00-7.30 [facility] TexasWulynygPVZUUM6061-95-54 06:53:00 Test Item Value Reference Range Interpretation Comments LDL (Calculated) (test code = LDL 80 (Calculated)) [facility] TexasXbgqzutHFYEST3272-48-49 06:53:00 Test Item Value Reference Range Interpretation Comments VLDL (test code = VLDL) 66 1 [facility] TexasyogeshCARDIAC [id number] 06:53:00 Test Item Value Reference Range Interpretation Comments Troponin-I (test code no gt See_Comment [Auto mated message] The = Troponin-I) system which g enerated this result transmit faye reference range : <=0.40. The reference r rodrigo was not used to interpr et this result as nathaly l/abnormal. [facility] TexasBbnzqvkBHDXMV9673-28-87 06:53:00 Test Item Value Reference Range Interpretation Comments Trig (test code = Trig) 330 [facility] TexasKwxqdobHQSSSC2790-55-66 06:53:00 Test Item Value Reference Range Interpretation Comments Chol (test code = Chol) 174 [facility] TexasBszjvkhAHVNCU8070-67-04 06:53:00 Test Item Value Reference Range Interpretation Comments HDL (test code = HDL) 28 [facility] YjsmmetGJIITY8469-55-40 06:53:00 Test Item Value Reference Range Interpretation Comments CHD Risk (test code = CHD Risk) 6.21 1 4.00-7.30 [facility] RulokcrRCBAXA0634-66-07 06:53:00 Test Item Value Reference Range Interpretation Comments LDL (Calculated) (test code = LDL 80 (Calculated)) [facility] TexasSgzlpdwJEWBKL2224-68-45 06:53:00 Test Item Value Reference Range Interpretation Comments VLDL (test code = VLDL) 66 1 [facility] TexasannCARDIAC [id number] 06:53:00 Test Item Value Reference Range Interpretation Comments Troponin-I (test code no gt See_Comment [Auto mated message] The = Troponin-I) system which g enerated this result transmit faye reference range : <=0.40. The reference r rodrigo was not used to interpr et this result as nathaly l/abnormal. [facility] TexasTpqdzwgLEPOCY2698-81-74 06:53:00 Test Item Value Reference Range Interpretation Comments Trig (test code = Trig) 330 [facility] TexasHvjhzsxZJIWHD7975-16-17 06:53:00 Test Item Value Reference Range Interpretation Comments Chol (test code = Chol) 174 [facility] TexasKddsqtcTPTZJZ1685-83-65 06:53:00 Test Item Value Reference Range Interpretation Comments HDL (test code = HDL) 28 [facility] TexasSknyepiDHYTIB6182-35-67 06:53:00 Test Item Value Reference Range Interpretation Comments CHD Risk (test code = CHD Risk) 6.21 1 4.00-7.30 [facility] TexasDqgrtvqQRZBCD7518-65-67 06:53:00 Test Item Value Reference Range Interpretation Comments LDL (Calculated) (test code = LDL 80 (Calculated)) [facility]CzrusyhEJDZHT8568-[facility] 06:53:00 Test Item Value Reference Range Interpretation Comments VLDL (test code = VLDL) 66 1 [facility] CenterCARDI [id number] 06:53:00 Test Item Value Reference Range Interpretation Comments Troponin-I (test code no gt See_Comment [Auto mated message] The = Troponin-I) system which g enerated this result transmit faye reference range : <=0.40. The reference r rodrigo was not used to interpr et this result as nathaly l/abnormal. [facility] TexasWcgekkeQFVKMC1909-01-42 06:53:00 Test Item Value Reference Range Interpretation Comments Trig (test code = Trig) 330 [facility]SbbykisAWNURI7907[facility]44 06:53:00 Test Item Value Reference Range Interpretation Comments Chol (test code = Chol) 174 [facility] TexasEjuyjkzECMOZV3850-14-30 06:53:00 Test Item Value Reference Range Interpretation Comments HDL (test code = HDL) 28 [place] [id number] 06:53:00 Test Item Value Reference Range Interpretation Comments CHD Risk (test code = CHD Risk) 6.21 1 4.00-7.30 [facility] TexasDedhfdpWXGVVD6361-18-56 06:53:00 Test Item Value Reference Range Interpretation Comments LDL (Calculated) (test code = LDL 80 (Calculated)) [facility] CenterPfgqsehWRVFND1941-01-06 06:53:00 Test Item Value Reference Range Interpretation Comments VLDL (test code = VLDL) 66 1 [facility] CenterBLOOD EDXKVNU1850-03-27 14:28:00 Test Item Value Reference Range Interpretation Comments CULTURE (BEAKER) (test No growth in 5 days code = 1095) POCT-GLUCOSE [id number] 12:04:00 Test Item Value Reference Range Interpretation Comments POC-GLUCOSE METER 179 mg/dL 70-110 H TESTED AT [facility] 6720 (BEAKER) (test code = [place] 1538) [address] BASIC METABOLIC [id number] 09:51:00 Test Item Value Reference Range Interpretation [...] PATIEN TS. CBC W/PLT COUNT & AUTO [id number] 09:20:00 Test Item Value Reference Range Interpretation [...] L 0.00-0.20 (test code = 417) 0.00POCT-GLUCOSE [id number] 07:15:00 Test Item Value Reference Range Interpretation Comments POC-GLUCOSE METER 246 mg/dL 70-110 H TESTED AT [place] [address] ([facility]) (test code = [facility] 1538) [address] POCT-GLUCOSE [id number] 21:12:00 Test Item Value Reference Range Interpretation Comments POC-GLUCOSE METER 89 mg/dL 70-110 TESTED AT [place] [address] ([facility]) (test code = [facility] Tamie [facility] [address] 1538) POCT-GLUCOSE [id number] 17:12:00 Test Item Value Reference Range Interpretation Comments POC-GLUCOSE METER 217 mg/dL 70-110 H TESTED AT [place] [address] ([facility]) (test code = [facility] Tamie [facility] 1538) [address] URINE [id number] 12:07:00 Test Item Value Reference Range Interpretation Comments CULTURE ([facility]) (test <10,000 col/mL skin code = 1095) emily POCT-GLUCOSE [id number] 11:30:00 Test Item Value Reference Range Interpretation Comments POC-GLUCOSE METER 205 mg/dL 70-110 H TESTED AT [place] [address] ([facility]) (test code = [facility] 1538) [address] POCT-GLUCOSE [id number] 07:36:00 Test Item Value Reference Range Interpretation Comments POC-GLUCOSE METER 195 mg/dL 70-110 H TESTED AT [place] [address] ([facility]) (test code = [facility] 1538) [address] CBC W/PLT COUNT & AUTO [id number] 05:14:00 Test Item Value Reference Range Interpretation Comments WHITE BLOOD CELL COUNT ([facility]) 6.7 K/ L 4.0-10.0 (test code = 775) RED BLOOD CELL COUNT ([facility]) 4.40 M/ L 4.20-5.80 (test code = 761) HEMOGLOBIN ([facility]) (test code = 13.3 GM/DL 13.0-16.8 410) HEMATOCRIT ([facility]) (test code = 38.2 % 40.0-50.0 L 411) MEAN CORPUSCULAR VOLUME ([facility]) 86.8 fL 82.0-98.0 (test code = 753) MEAN CORPUSCULAR HEMOGLOBIN 30.1 pg 27.0-33.0 ([facility]) (test code = 751) MEAN CORPUSCULAR HEMOGLOBIN [...] K/ L 0.00-0.20 (test code = 417) [facility] [id number] 05:14:00 Test Item Value Reference Range Interpretation [...] mg/dL 8.4-10.2 (test code = 697) EGFR ([facility]) (test 67 mL/min/1.73 ESTIMA FAYE GFR IS code = 1092) sq m NOT ACCURATE CREATININE CLEARANCE IN PREDICTING GLOMERULAR FILTRATION RATE . ESTIMATED GFR I S NOT APPLICABLE FOR DIALYSIS PATIEN TS. POCT-GLUCOSE [id number] 21:04:00 Test Item Value Reference Range Interpretation Comments POC-GLUCOSE METER 178 mg/dL 70-110 H TESTED AT [place] [address] ([facility]) (test code = [facility] 1538) [address] POCT-GLUCOSE [id number] 17:07:00 Test Item Value Reference Range Interpretation Comments POC-GLUCOSE METER 88 mg/dL 70-110 TESTED AT [place] [address] ([facility]) (test code = [facility] [address] 1538) POCT-GLUCOSE [id number] 12:30:00 Test Item Value Reference Range Interpretation Comments POC-GLUCOSE METER 107 mg/dL 70-110 TESTED AT [place] [address] ([facility]) (test code = [facility] 1538) [address] POCT-GLUCOSE [id number] 07:46:00 Test Item Value Reference Range Interpretation Comments POC-GLUCOSE METER 169 mg/dL 70-110 H TESTED AT [place] [address] ([facility]) (test code = [facility] 1538) [address] CBC W/PLT COUNT & AUTO [id number] 07:42:00 Test Item Value Reference Range Interpretation Comments WHITE BLOOD CELL COUNT ([facility]) 6.5 K/ L 4.0-10.0 (test code = 775) RED BLOOD CELL COUNT ([facility]) 4.57 M/ L 4.20-5.80 (test code = 761) HEMOGLOBIN ([facility]) (test code = 13.4 GM/DL 13.0-16.8 410) HEMATOCRIT ([facility]) (test code = 40.4 % 40.0-50.0 411) MEAN CORPUSCULAR VOLUME ([facility]) 88.3 fL 82.0-98.0 (test code = 753) MEAN CORPUSCULAR HEMOGLOBIN 29.3 pg 27.0-33.0 ([facility]) (test code = 751) MEAN CORPUSCULAR HEMOGLOBIN [...] K/ L 0.00-0.20 (test code = 417) 0.00[facility]IC [id number] 06:13:00 Test Item Value Reference Range Interpretation [...] NOT APPLICABLE FOR DIALYSIS PATIEN TS. POCT-GLUCOSE [id number] 22:12:00 Test Item Value Reference Range Interpretation Comments POC-GLUCOSE METER 238 mg/dL 70-110 H TESTED AT [place] [address] ([facility]) (test code = [facility] 1538) [address] POCT-GLUCOSE [id number] 17:25:00 Test Item Value Reference Range Interpretation Comments POC-GLUCOSE METER 102 mg/dL 70-110 TESTED AT [place] [address] ([facility]) (test code = [facility] 1538) [address] URINALYSIS W/ [id number] 12:50:00 Test Item Value Reference Range Interpretation [...] 520) < /HPF SOURCE(BEAKER) (test code = 2235) POCT-GLUCOSE [id number] 12:04:00 Test Item Value Reference Range Interpretation Comments POC-GLUCOSE METER 226 mg/dL 70-110 H TESTED AT [facility] 6720 (BEAKER) (test code = [place] [employer] [place] 1538) [address] POCT-GLUCOSE [id number] 08:00:00 Test Item Value Reference Range Interpretation Comments POC-GLUCOSE METER 300 mg/dL 70-110 H TESTED AT [facility] 6720 (BEAKER) (test code = [place] [employer] [place] 1538) [address] BASIC METABOLIC [id number] 06:50:00 Test Item Value Reference Range Interpretation [...] PATIEN TS. CBC W/PLT COUNT & AUTO [id number] 06:01:00 Test Item Value Reference Range Interpretation [...] L 0.00-0.20 (test code = 417) 0.00POCT-GLUCOSE [id number] 21:25:00 Test Item Value Reference Range Interpretation Comments POC-GLUCOSE METER 279 mg/dL 70-110 H TESTED AT [facility] 6720 (BEAKER) (test code = [place] 1538) [address] HEMOGLOBIN [id number] 21:13:00 Test Item Value Reference Range Interpretation Comments HEMOGLOBIN A1C (BEAKER) (test code = 10.7 % 4.3-6.1 H 368) CBC W/PLT COUNT & AUTO [id number] 20:47:00 Test Item Value Reference Range Interpretation [...] L 0.00-0.20 (test code = 417) 0.00POCT-GLUCOSE [id number] 18:31:00 Test Item Value Reference Range Interpretation Comments POC-GLUCOSE METER 205 mg/dL 70-110 H TESTED AT [facility] 6720 (BEAKER) (test code = [place] 1538) [address] URINE [id number] 17:34:00 Test Item Value Reference Range Interpretation Comments Time (test code = Time) [facility] [id number] 17:34:00 Test Item Value Reference Range Interpretation Comments Time (test code = Time) 12 min [facility] [id number] 17:34:00 Test Item Value Reference Range Interpretation Comments Time (test code = Time) 14 min [facility] [id number] 17:34:00 Test Item Value Reference Range Interpretation Comments Time (test code = Time) 8 min [facility] [id number] 17:34:00 Test Item Value Reference Range Interpretation Comments Time (test code = Time) 5 min [facility] [id number] 17:34:00 Test Item Value Reference Range Interpretation Comments Time (test code = Time) 17 min [facility] [id number] 17:34:00 Test Item Value Reference Range Interpretation Comments Time (test code = Time) 28 min [facility] [id number] 17:34:00 Test Item Value Reference Range Interpretation Comments Time (test code = Time) 20 min [facility] [id number] 17:34:00 Test Item Value Reference Range Interpretation Comments Time (test code = Time) 23 min [facility] [id number] 17:34:00 Test Item Value Reference Range Interpretation Comments Time (test code = Time) 26 min [facility] [id number] 17:34:00 Test Item Value Reference Range Interpretation Comments Time (test code = Time) 33 min [facility] [id number] 17:34:00 Test Item Value Reference Range Interpretation Comments Time (test code = Time) 2 min [facility] [id number] 17:34:00 Test Item Value Reference Range Interpretation Comments Time (test code = Time) 12 min [facility] [id number] 17:34:00 Test Item Value Reference Range Interpretation Comments Time (test code = Time) 14 min [facility] [id number] 17:34:00 Test Item Value Reference Range Interpretation Comments Time (test code = Time) 8 min [facility] [id number] 17:34:00 Test Item Value Reference Range Interpretation Comments Time (test code = Time) 5 min [facility] [id number] 17:34:00 Test Item Value Reference Range Interpretation Comments Time (test code = Time) 17 min [facility] [id number] 17:34:00 Test Item Value Reference Range Interpretation Comments Time (test code = Time) 28 min [facility] [id number] 17:34:00 Test Item Value Reference Range Interpretation Comments Time (test code = Time) 20 min [facility] [id number] 17:34:00 Test Item Value Reference Range Interpretation Comments Time (test code = Time) 23 min [facility] [id number] 17:34:00 Test Item Value Reference Range Interpretation Comments Time (test code = Time) 26 min [facility] [id number] 17:34:00 Test Item Value Reference Range Interpretation Comments Time (test code = Time) 33 min [facility] [id number] 17:34:00 Test Item Value Reference Range Interpretation Comments Time (test code = Time) 2 min [facility] [id number] 17:34:00 Test Item Value Reference Range Interpretation Comments Time (test code = Time) 12 min [facility] [id number] 17:34:00 Test Item Value Reference Range Interpretation Comments Time (test code = Time) 14 min [facility] [id number] 17:34:00 Test Item Value Reference Range Interpretation Comments Time (test code = Time) 8 min [facility] [id number] 17:34:00 Test Item Value Reference Range Interpretation Comments Time (test code = Time) 5 min [facility] [id number] 17:34:00 Test Item Value Reference Range Interpretation Comments Time (test code = Time) 17 min [facility] [id number] 17:34:00 Test Item Value Reference Range Interpretation Comments Time (test code = Time) 28 min [facility] [id number] 17:34:00 Test Item Value Reference Range Interpretation Comments Time (test code = Time) 20 min [facility] [id number] 17:34:00 Test Item Value Reference Range Interpretation Comments Time (test code = Time) 23 min [facility] [id number] 17:34:00 Test Item Value Reference Range Interpretation Comments Time (test code = Time) 26 min [facility] [id number] 17:34:00 Test Item Value Reference Range Interpretation Comments Time (test code = Time) 33 min [facility] [id number] 17:34:00 Test Item Value Reference Range Interpretation Comments Time (test code = Time) 2 min [facility] [id number] 17:34:00 Test Item Value Reference Range Interpretation Comments Time (test code = Time) 12 min [facility] [id number] 17:34:00 Test Item Value Reference Range Interpretation Comments Time (test code = Time) 14 min [facility] [id number] 17:34:00 Test Item Value Reference Range Interpretation Comments Time (test code = Time) 8 min [facility] [id number] 17:34:00 Test Item Value Reference Range Interpretation Comments Time (test code = Time) 5 min [facility] [id number] 17:34:00 Test Item Value Reference Range Interpretation Comments Time (test code = Time) 17 min [facility] [id number] 17:34:00 Test Item Value Reference Range Interpretation Comments Time (test code = Time) 28 min [facility] [id number] 17:34:00 Test Item Value Reference Range Interpretation Comments Time (test code = Time) 20 min [facility] [id number] 17:34:00 Test Item Value Reference Range Interpretation Comments Time (test code = Time) 23 min [facility] [id number] 17:34:00 Test Item Value Reference Range Interpretation Comments Time (test code = Time) 26 min [facility] [id number] 17:34:00 Test Item Value Reference Range Interpretation Comments Time (test code = Time) 33 min [facility] [id number] 17:34:00 Test Item Value Reference Range Interpretation Comments Time (test code = Time) 2 min [facility] [id number] 17:34:00 Test Item Value Reference Range Interpretation Comments Time (test code = Time) 12 min [facility] [id number] 17:34:00 Test Item Value Reference Range Interpretation Comments Time (test code = Time) 14 min [facility] [id number] 17:34:00 Test Item Value Reference Range Interpretation Comments Time (test code = Time) 8 min [facility] [id number] 17:34:00 Test Item Value Reference Range Interpretation Comments Time (test code = Time) 5 min [facility] [id number] 17:34:00 Test Item Value Reference Range Interpretation Comments Time (test code = Time) 17 min [facility] [id number] 17:34:00 Test Item Value Reference Range Interpretation Comments Time (test code = Time) 28 min [facility] [id number] 17:34:00 Test Item Value Reference Range Interpretation Comments Time (test code = Time) 20 min [facility] [id number] 17:34:00 Test Item Value Reference Range Interpretation Comments Time (test code = Time) 23 min [facility] [id number] 17:34:00 Test Item Value Reference Range Interpretation Comments Time (test code = Time) 26 min [facility] [id number] 17:34:00 Test Item Value Reference Range Interpretation Comments Time (test code = Time) 33 min [facility]
[2022-10-06] MEDS ORDERED: ACETAMINOPHEN 500 MG TAB ONE (16:29)
[2022-10-06 16:39] LABS: Absolute Lymphocytes (CBC) 1.1 K/uL (0.7-4.9); Hematocrit 36.3 % (39.6-49.0); Lymphocytes % 10.5 % (15.3-44.8); MCV 85.4 fL (80-100); MPV 10.1 fL (7.6-11.3); Platelets 223 thou/uL (152-406); RBC Red Blood Cell Count 4.24 M/uL (4.33-5.43)
[2022-10-06 16:45] LABS: Protime INR 1.23
--- NOTE | 2022-10-06 16:48 | RAD REPORT ---
EXAM DESCRIPTION: RAD - Chest Single View - 10/06/2022 4:36 pm CLINICAL HISTORY: DYSPNEA COMPARISON: Chest Single View dated 09/02/2022; Chest Single View dated 08/16/2022; Chest Pa And Lat ( 2 Views) dated 07/16/2022; Chest Single View dated 06/09/2022 FINDINGS: Lines: None. Lungs: No evidence of edema or pneumonia. Pleural: No significant pleural effusions or pneumothorax. Cardiac: The heart size is within normal limits. Mediastinum: Within normal limits. Bones: No acute fractures. Other: None IMPRESSION: No acute cardiopulmonary disease.
[2022-10-06 17:00] LABS: Albumin 2.6 g/dL (3.4-5.0); Bilirubin Total 0.5 mg/dL (0.2-1.0); Potassium 4.1 mEq/L (3.5-5.1); Protein, Total 7.7 g/dL (6.4-8.2)
--- NOTE | 2022-10-06 17:26 | RAD REPORT ---
EXAM DESCRIPTION: CTAbdomen Pelvis Wo Contrast - 10/06/2022 5:11 pm CLINICAL HISTORY: ABD PAIN COMPARISON: [facility] Protocol dated 12/31/2019; Abdomen Pelvis W Contrast dated 11/20/2018; Abdomen Pelvis Wo Contrast dated 08/15/2018; [facility] Protocol dated 04/18/2017; Abdomen Pelvis W Contrast dated 01/05/2016 TECHNIQUE: CT of the abdomen and pelvis was performed. All CT scans are performed using dose optimization technique as appropriate and may include automated exposure control or mA/KV adjustment according to patient size. FINDINGS: Lower chest: Scattered coronary artery calcifications. Liver: No acute abnormality or suspicious lesions. Biliary: No biliary ductal dilatation. Stomach: No significant focal abnormality. Duodenum: No significant focal abnormality. Pancreas: No significant abnormality. Spleen: No significant abnormality. Adrenal: No suspicious lesions. Kidney/ureter: No hydronephrosis. No renal calculi. Nonspecific perinephric stranding. Retroperitoneum: No retroperitoneal adenopathy. Vascular: No aneurysm. Bowel: No significant focal abnormality. Peritoneum: No ascites or free air. Bladder: Decompressed, not well evaluated. Reproductive: Valera catheter is deployed within the prostate. Bones: No acute fracture. Other: n/a IMPRESSION: No acute intra-abdominal or pelvic finding. Valera catheter balloon deployed within the prostate. The catheter should be repositioned.
--- NOTE | 2022-10-06 18:46 | ER ---
Nurse's Notes [facility] Name: Ramirez Chaudhari Age: 57 yrs Sex: Male : 1965 Arrival Date: 10/06/2022 Time: 15:05 Bed 5 Private MD: Diagnosis: Leg Laceration/ Open wound of lower leg-chronic wound with infection Presentation: 10/06 15:17 Chief complaint: Spouse and/or significant other states: pt was seen at dr luong [facility] office for wound on his legs. Pt has not been feeling good for the last couple of days. Pts states that pt has been more lethargic. Pt complaining of abdominal pain. Coronavirus screen: Vaccine status: Patient reports being unvaccinated. Ebola Screen: No symptoms or risks identified at this time. Initial Sepsis Screen: Does the patient meet any 2 criteria? Temp <36.0*C (96.8*F)) or > 38.3*C (100.9*F). No. Patient's initial sepsis screen is negative. Does the patient have a suspected source of infection? Yes: Skin breakdown/wound. Risk Assessment: Do you want to hurt yourself or someone else? Patient reports no desire to harm self or others. Onset of symptoms was October 06, 2022. 15:17 Method Of Arrival: Wheelchair cm10 15:17 Acuity: NOHEMI 3 cm10 Triage Assessment: 21:42 General: Appears comfortable. Respiratory: the patient has mild shortness of breath. rv Historical: - Allergies: 15:20 Ibuprofen; cm10 15:20 metformin; cm10 - PMHx: 15:20 ADD/ADHD; Diabetes - IDDM; Gout; GERD; High Cholesterol; Hydrocele Left Testicle; cm10 Hypertension; Hypothyroidism; Migraines; Paraplegia; Renal Disease; Spinal Stroke; Congestive heart failure; afib; - Immunization history:: Adult Immunizations unknown. - Social history:: Smoking status: Patient/guardian denies using tobacco, the patient reports quitting approximately 20 years ago. Screenin:15 Abuse screen: Denies threats or abuse. Nutritional screening: No deficits noted. aa5 Tuberculosis screening: No symptoms or risk factors identified. 21:42 [facility] ED Fall Risk Assessment (Adult) History of falling in the last 3 months, rv including since admission No falls in past 3 months (0 pts) Confusion or Disorientation No (0 pts) Intoxicated or Sedated No (0 pts) Impaired Gait Yes (1 pt) Mobility Assist Device Used Yes (1 pt) Altered Elimination No (0 pt) Score/Fall Risk Level 3 or more points = High Risk Oriented to surroundings, Maintained a safe environment, Educated pt \\T\\ family on fall prevention, incl call for assistance when getting out of bed, Assessed \\T\\ reinforced patient's understanding of fall precautions, Provided non-skid footwear, Hourly rounding (assess needs \\T\\ fall precautionary measures) done, Used ambulatory aids as needed (educated on \\T\\ assisted with), Used gait belt as appropriate Implemented a Fall Risk Plan of Care, Apply high fall risk patient identification: yellow non skid footwear/ fall signage, Placed fall mat w/ non beveled edge next to bed, Activated bed/chair alarm, Remained w/in arm's length of patient and in sight while toileting, Offered frequent toileting (1:1 observation), Remained with patient while ambulating, Utilized family, sitter, or virtual research professional as indicated. Assessment: 16:05 General: Appears uncomfortable, Behavior is calm, cooperative. Pain: Complains of pain aa5 in right lower quadrant and left lower quadrant Pain currently is 10 out of 10 on a pain scale. Quality of pain is described as crampy, Pain began today Is continuous. Neuro: Level of Consciousness is awake, alert, obeys commands, Oriented to person, place, time, situation, Reports generalized weakness . Cardiovascular: Heart tones S1 S2 present Rhythm is regular. Respiratory: Reports shortness of breath at rest cough that is productive, Airway is patent Respiratory effort is even, unlabored, Respiratory pattern is regular, symmetrical, tachypnea Breath sounds are clear bilaterally. GI: Abdomen is round Bowel sounds present X 4 quads. Abd is soft and non tender X 4 quads. Reports nausea, vomiting, Patient currently denies diarrhea. : Valera in place to gravity drainage. EENT: No signs and/or symptoms were reported regarding the EENT system. Derm: Skin is dry, Skin is normal, Skin temperature is hot Reports chronic wound to right foot and left ankle, dressing intact. Musculoskeletal: Swelling present in tai lower extremities, greater to left leg. wheelchair bound. 17:42 Reassessment: Pt resting in bed with eye closed, respirations even and unlabored. . aa5 18:20 Reassessment: Pt states "I was sweating when I was breaking that fever and my sheets aa5 are wet". Clean sheets applied. . Neuro: Level of Consciousness is awake, alert, obeys commands, Oriented to person, place, time, situation. Respiratory: Airway is patent Respiratory effort is even, unlabored, Respiratory pattern is regular, symmetrical. Derm: Skin is dry, Skin is normal, Skin temperature is warm. Vital Signs: 15:17 BP 122 / 44; Pulse 78; Resp 18; Temp 102.1; Pulse Ox 99% on R/A; Weight 112.49 kg; cm10 Height 5 ft. 8 in. ; Pain 10/10; 17:41 BP 134 / 77; Pulse 72; Resp 18 S; Pulse Ox 100% on R/A; aa5 17:42 Temp 99.3(O); aa5 18:34 BP 102 / 62; Pulse 70; Resp 19 S; Pulse Ox 98% ; aa5 20:01 BP 134 / 61; Pulse 72; Resp 18 S; Pulse Ox 100% on R/A; lg3 21:40 BP 149 / 72; Pulse 92; Resp 18; Temp 98; Pulse Ox 100% on R/A; rv 15:17 Body Mass Index 37.71 (112.49 kg, 172.72 cm) cm10 15:17 Pain Scale: Adult cm10 Tano Coma Score: 21:40 Eye Response: spontaneous(4). Motor Response: obeys commands(6). Verbal Response: rv oriented(5). Total: 15. ED Course: 15:08 Patient arrived in ED. am2 15:14 Jacquie Jin FNP-C is PHCP. kb 15:14 Manuel Verde MD is Attending Physician. kb 15:20 Triage completed. cm10 15:21 Arm band placed on Patient placed in an exam room, on a stretcher. cm10 15:42 US Extremity Venous Unilateral Ltd In Process Unspecified. EDMS 16:05 Patient has correct armband on for positive identification. Placed in gown. Bed in low aa5 position. Call light in reach. Side rails up X2. Adult w/ patient. 16:16 Inserted saline lock: 20 gauge in left antecubital area, using aseptic technique. Blood rs5 collected. 16:18 Sepideh Vargas, NORBERTO is Primary Nurse. aa5 16:37 Chest Single View XRAY In Process Unspecified. EDMS 16:45 EKG done, by ED staff, reviewed by Jacquie JOHNSON. aa5 17:11 Abdomen In Process Unspecified. EDMS 18:20 Second set of blood cultures drawn by me. aa5 18:25 Valera cath removed intact, balloon deflated. aa5 18:28 Valera cath inserted, using sterile technique, 16 Fr., by me, balloon inflated, to aa5 gravity drainage, other not enough urine to collect urine specimen at this time. 18:45 Gonzalo Powell MD is Hospitalizing Provider. kb 19:10 Report given to NORBERTO Alvarez and NORBERTO Do. aa5 21:40 No provider procedures requiring assistance completed. Patient admitted, IV remains in rv place. 21:42 Provided Education on: WOUND CARE. rv Administered Medications: 16:20 Drug: Acetaminophen PO 1000 mg Route: PO; aa5 17:42 Follow up: Response: Temperature is decreased aa5 18:50 Drug: NS 0.9% IV 1000 ml Route: IV; Rate: 1000 ml; Site: left antecubital; aa5 22:01 Follow up: IV Status: Completed infusion; IV Intake: 1000ml rv 18:50 Drug: Cefepime IVPB 1 grams Route: IVPB; Rate: 200 ml/hr; Infused Over: 30 mins; Site: aa5 left antecubital; 22:01 Follow up: Response: No adverse reaction; IV Status: Completed infusion rv 19:36 Drug: vancoMYCIN IVPB 1 grams Route: IVPB; Infused Over: 2 hrs; Site: left antecubital; rv 22:01 Follow up: Response: No adverse reaction; IV Status: Completed infusion; IV Intake: rv 250ml Medication: 21:42 VIS not applicable for this client. rv Intake: 22:01 IV: 250ml; Total: 250ml. rv 22:01 IV: 1000ml; Total: 1250ml. rv 19:00 Urine sent to lab aa5 Output: 19:00 Urine: 7ml (Valera); Total: 7ml. aa5 19:00 Urine sent to lab aa5 Outcome: 18:45 Decision to Hospitalize by Provider. kb 21:41 Admitted to Med/surg accompanied by nurse, via stretcher, room 229, with chart, Report rv called to [facility] 21:41 Condition: good 22:02 Patient left the ED. rv Signatures: Dispatcher [employer] Jacquie Cabrera, ELIZABETH LEYVA-Sepideh Rivera, RN RN aa5 Latricia Campbell am2 Bandar Martinez RN RN rv Ernestina Wright RN RN lg3 Sukumar Chanel RN RN rs5 Татьяна Schmitz RN RN cm10 Corrections: (The following items were deleted from the chart) 18:11 17:25 Response: Temperature is decreased aa5 aa5 18:44 16:05 : No signs and/or symptoms were reported regarding the genitourinary system. aa5aa5 18:44 16:05 Musculoskeletal: wheelchair bound aa5 aa5
--- NOTE | 2022-10-06 18:46 | EDPHYS ---
Physician Documentation [facility] Name: Ramirez Chaudhari Age: 57 yrs Sex: Male : 1965 Arrival Date: 10/06/2022 Time: 15:05 Bed 5 Private MD: ED Physician Manuel Verde HPI: 10/06 18:37 This 57 yrs old Male presents to ER via Wheelchair with complaints of fever. kb 18:37 Severity of symptoms: At their worst the symptoms were moderate in the emergency kb department the symptoms are unchanged. The patient has not experienced similar symptoms in the past. The patient has been recently seen by a physician: Joon for wound care. reports patient has been feeling unwell for the last few days, more lethargic today with fever. Was seen by Dr. Dupree today for wound care had wound culture, x-ray, labs completed and was prescribed doxycycline which was not started yet. decided to bring patient in for his symptoms prior to starting antibiotics. States his left leg where he has a chronic wound has been swollen and warm with increased drainage and foul smell.. Historical: - Allergies: 15:20 Ibuprofen; cm10 15:20 metformin; cm10 - PMHx: 15:20 ADD/ADHD; Diabetes - IDDM; Gout; GERD; High Cholesterol; Hydrocele Left Testicle; cm10 Hypertension; Hypothyroidism; Migraines; Paraplegia; Renal Disease; Spinal Stroke; Congestive heart failure; afib; - Immunization history:: Adult Immunizations unknown. - Social history:: Smoking status: Patient/guardian denies using tobacco, the patient reports quitting approximately 20 years ago. ROS: 18:35 Respiratory: Negative for shortness of breath, cough, wheezing, and pleuritic chest kb pain. 18:35 Constitutional: Positive for fatigue, fever, malaise. 18:35 Abdomen/GI: Positive for abdominal pain, nausea and vomiting. 18:35 MS/extremity: Positive for swelling, of the left leg. 18:35 Skin: Positive for chronic wound with increased foul odor and drainage. 18:35 All other systems are negative. Exam: 16:48 ECG was reviewed by the Attending Physician. kb 18:42 Head/Face: Normocephalic, atraumatic. ENT: Moist Mucous membranes Cardiovascular: kb Regular rate and rhythm with a normal S1 and S2. No gallops, murmurs, or rubs. No pulse deficits. Respiratory: Respirations even and unlabored. No increased work of breathing. Talking in full sentences 18:42 Constitutional: The patient appears alert, awake, obviously ill. 18:42 Abdomen/GI: Inspection: obese Bowel sounds: normal, Palpation: soft, in all quadrants, mild abdominal tenderness, in all quadrants. 18:42 Musculoskeletal/extremity: Extremities: grossly normal except: noted in the left leg: swelling, warmth and chronic wound. 18:42 Skin: chronic wound to left lateral calf with blackened tissue to edges. foul smelling and moderate amount of drainage noted. . 18:42 Neuro: Exam negative for acute changes. Vital Signs: 15:17 BP 122 / 44; Pulse 78; Resp 18; Temp 102.1; Pulse Ox 99% on R/A; Weight 112.49 kg; cm10 Height 5 ft. 8 in. ; Pain 10/10; 17:41 BP 134 / 77; Pulse 72; Resp 18 S; Pulse Ox 100% on R/A; aa5 17:42 Temp 99.3(O); aa5 18:34 BP 102 / 62; Pulse 70; Resp 19 S; Pulse Ox 98% ; aa5 20:01 BP 134 / 61; Pulse 72; Resp 18 S; Pulse Ox 100% on R/A; lg3 21:40 BP 149 / 72; Pulse 92; Resp 18; Temp 98; Pulse Ox 100% on R/A; rv 15:17 Body Mass Index 37.71 (112.49 kg, 172.72 cm) cm10 15:17 Pain Scale: Adult cm10 Hood Coma Score: 21:40 Eye Response: spontaneous(4). Motor Response: obeys commands(6). Verbal Response: rv oriented(5). Total: 15. MDM: 15:14 Patient medically screened. kb 18:36 Differential diagnosis: cellulitis, UTI, wound infection, pneumonia. Data reviewed: efrain vital signs, nurses notes. Consideration of Admission/Observation Patient was admitted/placed on observation. Escalation of care including admission/observation considered. Management of patient was discussed with the following: Hospitalist: James COMMERCIAL ENERGY AUDITOR accepts pt for admission . Historians other than the Patient: Spouse/Significant Other: . Care significantly affected by the following chronic conditions: Diabetes, Hypertension, Congestive Heart Failure, Obesity. Counseling: I had a detailed discussion with the patient and/or guardian regarding: the historical points, exam findings, and any diagnostic results supporting the discharge/admit diagnosis, lab results, radiology results, the need for further work-up and treatment in the hospital. 10/06 15:20 Order name: Blood Culture Adult (2) kb 10/06 15:20 Order name: CBC with Diff; Complete Time: 16:48 kb 10/06 15:20 Order name: CMP; Complete Time: 17:01 kb 10/06 15:20 Order name: Lactate w/ 2H reflex if indic.; Complete Time: 17:00 kb 10/06 15:20 Order name: Protime (+inr); Complete Time: 17:00 kb 10/06 15:20 Order name: Ptt, Activated; Complete Time: 17:00 kb 10/06 15:20 Order name: Urinalysis w/ reflexes; Complete Time: 19:50 kb 10/06 15:20 Order name: Flu; Complete Time: 18:04 kb 10/06 15:20 Order name: SARS-COV-2 RT PCR; Complete Time: 18:04 kb 10/06 15:20 Order name: BNP; Complete Time: 17:01 kb 10/06 15:20 Order name: Chest Single View XRAY; Complete Time: 17:00 kb 10/06 15:20 Order name: US Extremity Venous Unilateral Ltd; Complete Time: 15:50 kb 10/06 17:11 Order name: Abdomen ; Complete Time: 17:29 EDMS 10/06 15:20 Order name: EKG; Complete Time: 15:21 kb 10/06 15:20 Order name: Cardiac monitoring; Complete Time: 16:30 kb 10/06 15:20 Order name: EKG - Nurse/Tech; Complete Time: 16:49 kb 10/06 15:20 Order name: IV Saline Lock - Large Bore; Complete Time: 16:30 kb 10/06 15:20 Order name: Labs collected and sent; Complete Time: 16:30 kb 10/06 15:20 Order name: O2 Per Protocol; Complete Time: 16:30 kb 10/06 15:20 Order name: O2 Sat Monitoring; Complete Time: 16:30 kb 10/06 15:20 Order name: Vital Signs; Complete Time: 16:30 kb 10/06 17:30 Order name: Vital Signs; Complete Time: 17:42 kb 10/06 17:30 Order name: Louis: replace louis; Complete Time: 18:42 kb EC:48 Rate is 73 beats/min. Rhythm is regular. QRS [place] is Normal. [place] interval is normal at kb 126 msec. QRS interval is normal at 124 msec. QT interval is normal at 425 msec. Administered Medications: 16:20 Drug: Acetaminophen PO 1000 mg Route: PO; aa5 17:42 Follow up: Response: Temperature is decreased aa5 18:50 Drug: NS 0.9% IV 1000 ml Route: IV; Rate: 1000 ml; Site: left antecubital; aa5 22:01 Follow up: IV Status: Completed infusion; IV Intake: 1000ml rv 18:50 Drug: Cefepime IVPB 1 grams Route: IVPB; Rate: 200 ml/hr; Infused Over: 30 mins; Site: aa5 left antecubital; 22:01 Follow up: Response: No adverse reaction; IV Status: Completed infusion rv 19:36 Drug: vancoMYCIN IVPB 1 grams Route: IVPB; Infused Over: 2 hrs; Site: left antecubital; rv 22:01 Follow up: Response: No adverse reaction; IV Status: Completed infusion; IV Intake: rv 250ml Disposition: 19:25 I reviewed the patient's care provided by the Advanced Practice Provider and agree with chinmay the diagnosis and treatment plan. Provided substantial MDM. Chart complete. Disposition Summary: 10/06/22 18:45 Hospitalization Ordered Hospitalization Status: Inpatient Admission kb Provider: Gonzalo Powell [facility] kb Condition: Stable kb Problem: new kb Symptoms: are unchanged kb Bed/Room Type: Standard Room Assignment: 229(10/06/22 19:58) Diagnosis - Leg Laceration/ Open wound of lower leg - chronic wound with infection kb Forms: - Medication Reconciliation Form kb - SBAR form kb Signatures: Dispatcher [employer] Jacquie Cabrera FNP-C FNP-Silvia Gresham RN Sepideh Olivo RN RN aa5 James Thomas FNP-C FNP-Bandar Toussaint RN RN rv Manuel Verde MD MD [id number] Татьяна Schmitz RN RN cm10 Corrections: (The following items were deleted from the chart) 17:04 15:20 Accucheck ordered. kb aa5 17:11 15:21 Abdomen Pelvis W Con+CT.RAD.BRZ ordered. EDMS EDMS 18:42 18:37 This 57 yrs old Male presents to ER via Wheelchair with complaints of kb Breathing Difficulty. kb 19:58 18:45 kb dw
--- NOTE | 2022-10-06 18:47 | EKG ---
Test Date: 2022-10-06 Test Time: 16:42:40 Jitney Driver: ESTRELLA MEASUREMENT RESULTS: Intervals: Rate: 73 OH: 126 QRSD: 124 QT: 386 QTc: 425 [place]: P: 27 OH: 126 QRS: 89 T: 93 INTERPRETIVE STATEMENTS: Sinus rhythm with premature atrial complexes with aberrant conduction Right bundle branch block Abnormal ECG Compared to ECG 09/02/2022 18:03:04 Aberrant conduction of supraventricular beat(s) now present Electronically Signed On 10-06-22 18:47:13 CDT by Kofi Mo
[2022-10-06] MEDS ORDERED: NA CHLORIDE 0.9% 100 ML ONE (19:00)
[2022-10-06] MEDS ORDERED: NA CHLORIDE 0.9% 1,000 ML ONE (19:00)
[2022-10-06] MEDS ORDERED: CEFEPIME 1 GM/VIAL ONE (19:00)
--- NOTE | 2022-10-06 19:10 | P.HP ---
Certification for Inpatient Patient admitted to: Inpatient With expected LOS: >2 Midnights Patient will require the following post-hospital care: None Practitioner: I am a practitioner with admitting privileges, knowledge of patient current condition, hospital course, and medical plan of care. Services: Services provided to patient in accordance with Admission requirements found in Title 42 Section 412.3 of the Code of Federal Regulations Patient History Date of Service: 10/06/22 Reason for admission: Left lower extremity cellulitis/wound History of Present Illness: 57-year-old male with history of atrial fibrillation on chronic anticoagulation, chronic diastolic congestive heart failure, insulin-dependent diabetes, history of spinal stroke with paraplegia, chronic foot wounds, hypertension, hyperlipidemia, hypothyroidism, gout, CKD 3 presents the emergency department with chief complaint of lethargy, fevers that started today, he is seen by Dr. Dupree podiatry for wound healing/wound care. He sees Dr. Dupree every Thursday he recently had an x-ray performed earlier today which was negative for acute findings, also had a wound culture and was prescribed doxycycline which he had not yet started. Family noted worsening drainage and smell from wound to left lower extremity. He was evaluated in the emergency department noted to have fever up to 102.1, this was the only SIRS criteria present initial lactate 2.0. Ultrasound left lower extremity negative for DVT Labs redemonstrate CKD which is stable BNP elevated 2084 urinalysis pending. Patient to be admitted for cellulitis/wound left lower extremity he has been started on vancomycin/cefepime. We will consult Dr. Dupree. Allergies metformin Adverse Reaction (Severe, Verified 08/17/22 02:22) kidney damage ibuprofen Adverse Reaction (Verified 08/17/22 02:22) seecom stitches Adverse Reaction (Mild, Uncoded 02/06/20 12:27) Rash Home Medications: Insulin Detemir [Levemir Flextouch] 40 units SQ BID 01/15/21 Levothyroxine Sodium [Euthyrox] 1 tab PO DAILY 01/15/21 Omeprazole 40 mg PO DAILY 05/31/21 Apixaban [Eliquis *] 2.5 mg PO BID #60 tablet 08/07/21 Allopurinol 100 mg PO DAILY 09/24/21 Sotalol HCl [Betapace*] 80 mg PO BID 30 Days #60 tab 09/28/21 Colchicine 0.6 mg PO BID* 11/22/21 Insulin Aspart Prot/Insuln Asp [Novolog Mix 70-30 Flexpen] 30 unit SQ TID 11/22/21 Nitrofurantoin Monohyd/M-Cryst [Macrobid 100 mg Capsule] 100 mg PO DAILY 06/09/22 Albuterol Inhaler [Ventolin Inhaler*] 2 puff IH BID PRN 08/17/22 Finerenone [Kerendia] 10 mg PO DAILY 08/17/22 Furosemide [Lasix*] 40 mg PO BIDL 08/17/22 oxyBUTYnin chloride [Oxybutynin Chloride] 5 mg PO DAILY 08/17/22 Codeine/APAP [Tylenol #3*] 1 tab PO Q8H PRN #10 tab 08/18/22 - Past Medical/Surgical History Diabetic: Yes -: Diabetes mellitus type 2 -: HTN -: Gout -: Hyperlipidemia -: Hypothyroidism -: 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 fib on chronic anticoagulation -: Crohn's Disease (non active) -: spinal surgery -: 2 hydroceles -: Fistula repair -: Incomplete spinal stroke -: right hand Psychosocial/ Personal History: Patient is disabled, lives at home with his . - Family History Mother -: Hypertension, Diabetes, Stroke Notes: with gangrene leg - Social History Alcohol use: No CD- Drugs: No Caffeine use: Yes Place of Residence: Home Review of Systems 10-point ROS is otherwise unremarkable General: Fever, Chills, Weakness, Malaise Integumentary: As per HPI (Left lower extremity wound ) Physical Examination - Physical Exam General: Alert, In no apparent distress, Oriented x3 HEENT: Atraumatic, PERRLA, Mucous membr. moist/pink, EOMI, Sclerae nonicteric Neck: Supple, 2+ carotid pulse no bruit, No LAD, Without JVD or thyroid abnormality Respiratory: Clear to auscultation bilaterally, Normal air movement Cardiovascular: Regular rate/rhythm, Normal S1 S2 Capillary refill: <2 Seconds Gastrointestinal: Normal bowel sounds, No tenderness Musculoskeletal: No tenderness Integumentary: Other (Left lower extremity wound/ulceration with purulent foul drainage) Neurological: Normal speech, Normal tone, Normal affect, Other (Paraplegia) - Studies Laboratory Data (last 24 hrs) 10/06/22 10/06/22 10/06/22 16:16 16:16 16:16 WBC 10.30 Hgb 11.8 L Hct 36.3 L Plt Count 223 PT 13.5 H INR 1.23 APTT 37.1 H Sodium 132 L Potassium 4.1 BUN 39 H Creatinine 1.96 H Glucose 271 H Total Bilirubin 0.5 AST 14 L ALT 26 Alkaline Phosphatase 149 H Microbiology Data (last 24 hrs): 10/06/22 17:01 Nasopharnyx Influenza Type A Antigen Screen - Final 10/06/22 17:01 Nasopharnyx Influenza Type B Antigen Screen - Final Assessment and Plan - Plan Assessment: Cellulitis/wound left lower extremity Diabetes mellitus type 2insulin-dependent with hyperglycemia Atrial fibrillation on chronic anticoagulation CKD 3 Hypertension Hyperlipidemia Chronic diastolic congestive heart failure History of spinal stroke resulting in paraplegia Chronic indwelling Valera catheter Gout Plan: Cellulitis/wound left lower extremity Fever Tmax 102, wound appears to be source. Cultures have been obtained already today, blood cultures obtained during stay in emergency department. Only 1 out of 4 SIRS criteria present currently initial lactate 2.0. Continue antibiotics vancomycin/cefepime, will consult podiatry Dr. Dupree who follows him closely. Diabetes mellitus type 2insulin-dependent with hyperglycemia ACHS Accu-Chek, sliding scale insulin, A1c in the morning. Atrial fibrillation on chronic anticoagulation Continue Eliquis, sotalol. CKD 3 Stable, monitor daily. Hypertension Hyperlipidemia Continue home medications Chronic diastolic congestive heart failure Compensated at this time, continue home medications once verified History of spinal stroke resulting in paraplegia Chronic indwelling Valera catheter Noted, stable. Check urine. Gout Continue home meds DVT PPX: Continue Eliquis Code status: Full code Discharge Plan: Home Plan to discharge in: Greater than 2 days - Advance Directives Does patient have a Living Will: No Does patient have a Durable POA for Healthcare: No - Code Status/Comfort Care Code Status Assessed: Yes (Full code) Critical Care: No Time Spent Managing Pts Care (In Minutes): 55
[2022-10-06] MEDS ORDERED: VANCOMYCIN 1 GM/VIAL ONE (19:25)
[2022-10-06] MEDS ORDERED: NA CHLORIDE 0.9% 250 ML ONE (19:25)
[2022-10-06 19:42] LABS: Specific Gravity 1.021 (1.005-1.030); Urine Bacteria <20 /HPF (<20); Urine Bilirubin NEGATIVE (Negative); Urine Blood 3+ (OVER) (Negative); Urine Clarity Extremely Turbid (Clear); Urine Color Yellow (Yellow); Urine Glucose 2+ (Negative); Urine Mucus Slight /HPF (None Seen); Urine Protein 3+ (Negative); Urine RBC >50 /HPF (None Seen); Urine Urobilinogen 1+ (Normal); Urine WBC Clump Few /HPF (None Seen)
[2022-10-06] MEDS ORDERED: VANCOMYCIN 1 GM in NA CHLORIDE 0.9% 250 ML IVPB ONE (22:20)
[2022-10-06] MEDS: INSULIN -REGULAR HUMAN 50 UNIT/0.5 ML ML SQ SCH (23:21)
[2022-10-06] MEDS: APIXABAN 2.5 MG TABLET PO SCH (23:21)
[2022-10-07] MEDS ORDERED: MORPHINE 2 MG/ML SYR IV PRN (00:53)
[2022-10-07] MEDS: ONDANSETRON 4 MG/2 ML VIAL IV PRN ×2 (00:56→09:21)
[2022-10-07 04:06] LABS: Absolute Lymphocytes (CBC) 0.9 K/uL (0.7-4.9); Lymphocytes % 7.8 % (15.3-44.8); MCV 85.4 fL (80-100); MPV 10.2 fL (7.6-11.3); Platelets 201 thou/uL (152-406); RBC Red Blood Cell Count 3.74 M/uL (4.33-5.43)
[2022-10-07] MEDS: SOTALOL HCL 80 MG TAB PO SCH ×2 (05:55→18:33)
[2022-10-07] MEDS ORDERED: CEFEPIME 1 GM in NA CHLORIDE 0.9% 100 ML IV SCH (09:00)
[2022-10-07] MEDS: APIXABAN 2.5 MG TABLET PO SCH ×2 (09:01→20:14)
[2022-10-07] MEDS: INSULIN -REGULAR HUMAN 50 UNIT/0.5 ML ML SQ SCH ×4 (09:02→20:14)
[2022-10-07] MEDS: CEFEPIME 2 GM in NA CHLORIDE 0.9% 100 ML IV SCH ×2 (09:02→20:14)
--- NOTE | 2022-10-07 09:16 | P.CNS ---
Date of Consult: 10/07/22 Reason for Consult: LLE wound, Fever Chief Complaint: Left lower extremity cellulitis/wound History of Present Illness: Patient is a 57 yo male with a past medical significant for DMII, HTN, A.fib, chronic foot wounds, paraplegia following spinal cord stroke in 2013, CKD, hypothyroidism and gout who presented to the ED with complaints of fever and foul smelling wound of left ankle. Blood, urine and wound cultures obtained, results pending. Patient admitted for left lower leg cellulitis and was started on empiric antibiotics cefepime and vancomycin. ID was consulted. Allergies metformin Adverse Reaction (Severe, Verified 08/17/22 02:22) kidney damage ibuprofen Adverse Reaction (Verified 08/17/22 02:22) seecom stitches Adverse Reaction (Mild, Uncoded 02/06/20 12:27) Rash Home medications list reviewed: Yes Home Medications: Insulin Detemir [Levemir Flextouch] 40 units SQ BID 01/15/21 Levothyroxine Sodium [Euthyrox] 1 tab PO DAILY 01/15/21 Omeprazole 40 mg PO DAILY 05/31/21 Apixaban [Eliquis *] 2.5 mg PO BID #60 tablet 08/07/21 Allopurinol 100 mg PO DAILY 09/24/21 Sotalol HCl [Betapace*] 80 mg PO BID 30 Days #60 tab 09/28/21 Colchicine 0.6 mg PO BID* 11/22/21 Insulin Aspart Prot/Insuln Asp [Novolog Mix 70-30 Flexpen] 30 unit SQ TID 11/22/21 Nitrofurantoin Monohyd/M-Cryst [Macrobid 100 mg Capsule] 100 mg PO DAILY 06/09/22 Albuterol Inhaler [Ventolin Inhaler*] 2 puff IH BID PRN 08/17/22 Finerenone [Kerendia] 10 mg PO DAILY 08/17/22 Furosemide [Lasix*] 40 mg PO BIDL 08/17/22 oxyBUTYnin chloride [Oxybutynin Chloride] 5 mg PO DAILY 08/17/22 Codeine/APAP [Tylenol #3*] 1 tab PO Q8H PRN #10 tab 08/18/22 - Past Medical/Surgical History Diabetic: Yes -: Diabetes mellitus type 2 -: HTN -: Gout -: Hyperlipidemia -: Hypothyroidism -: 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 fib on chronic anticoagulation -: Crohn's Disease (non active) -: spinal surgery -: 2 hydroceles -: Fistula repair -: Incomplete spinal stroke -: right hand Psychosocial/ Personal History: Patient is disabled, lives at home with his . - Family History Mother Medical History: Hypertension, Diabetes, Stroke Notes: with gangrene leg - Social History Smoking Status: Unknown if ever smoked Alcohol use: No CD- Drugs: No Caffeine use: Yes Place of Residence: Home Review of Systems 10-point ROS is otherwise unremarkable General: Fever, Weakness Gastrointestinal: Nausea, Vomiting, Abdominal Pain Integumentary: As per HPI Neurological: As per HPI Physical Examination Temp Pulse Resp BP Pulse Ox 99.0 F 74 18 114/58 L 96 10/07/22 04:00 10/07/22 04:00 10/07/22 04:00 10/07/22 04:00 10/07/22 04:00 General: Alert, In no apparent distress, Oriented x3 HEENT: Atraumatic, Normocephalic Neck: Supple, JVD not distended Respiratory: Clear to auscultation bilaterally, Normal air movement Cardiovascular: Edema (bilateral lower extremities L>R), Irregular heart rate/rhythm Gastrointestinal: Hyperactive, Distended Musculoskeletal: No clubbing Integumentary: Pressure ulcer (right heel, right lateral ankle, left lateral ankle) Neurological: Normal speech, Normal tone, Normal affect, Other (paraplegia) Urinary: Valera catheter (chronic) Laboratory Data (last 24 hrs) 10/06/22 10/06/22 10/06/22 16:16 16:16 16:16 WBC 10.30 Hgb 11.8 L Hct 36.3 L Plt Count 223 PT 13.5 H INR 1.23 APTT 37.1 H Sodium 132 L Potassium 4.1 BUN 39 H Creatinine 1.96 H Glucose 271 H Total Bilirubin 0.5 AST 14 L ALT 26 Alkaline Phosphatase 149 H Microbiology Data - Reviewed Imagings Data: - CT Abdomen/Pelvis 10/06: " No acute intra-abdominal or pelvic finding" - XR Chest 10/06: "No acute cardiopulmonary disease." - Venous study LLE 10/06: "No DVT in the left lower extremity." Conclusions/Impression: Problem List Cellulitis LLE Chronic foot wounds Diabetes Mellitus type II CKD III Atrial Fibrillation Hypertension Hypothyroidism Hyperlipidemia Chronic Diastolic Congestive Heart Failure Paraplegia Gout Cellulitis of Left Lower Extremity Infection of Wound Left Ankle, Chronic - Venous study LLE 10/06: "No DVT in the left lower extremity." - Patient sees podiatry Dr. Dupree as outpatient for foot wound management/wound care who is also consulted. - Wound culture 10/07: Pending - Currently on Cefepime and Vancomycin (started 10/07) - 24 hour Tmax 102.1 F Foul odor noted. - Blood cultures 10/06: Pending - Urine culture 10/06: Pending - COVID Negative - Influenza A&B Negative Recommendations - Continue Cefepime and Vancomycin for now (10/07-) - Follow up with blood, wound and urine culture results. Will adjust antibiotics as appropriate - Strict blood glucose control - Monitor WBC and fever trends Case discussed with [place] Bobby
[2022-10-07] MEDS ORDERED: SOTALOL HCL 80 MG TAB PO SCH (10:52)
--- NOTE | 2022-10-07 12:38 | P.CNS ---
Date of Consult: 10/07/22 Reason for Consult: wound left leg Chief Complaint: Left lower extremity cellulitis/wound Allergies metformin Adverse Reaction (Severe, Verified 08/17/22 02:22) kidney damage ibuprofen Adverse Reaction (Verified 08/17/22 02:22) seecom stitches Adverse Reaction (Mild, Uncoded 02/06/20 12:27) Rash Home Medications: Insulin Detemir [Levemir Flextouch] 40 units SQ BID 01/15/21 Levothyroxine Sodium [Euthyrox] 1 tab PO DAILY 01/15/21 Omeprazole 40 mg PO DAILY 05/31/21 Apixaban [Eliquis *] 2.5 mg PO BID #60 tablet 08/07/21 Allopurinol 100 mg PO DAILY 09/24/21 Sotalol HCl [Betapace*] 80 mg PO BID 30 Days #60 tab 09/28/21 Colchicine 0.6 mg PO BID* 11/22/21 Insulin Aspart Prot/Insuln Asp [Novolog Mix 70-30 Flexpen] 30 unit SQ TID 11/22/21 Nitrofurantoin Monohyd/M-Cryst [Macrobid 100 mg Capsule] 100 mg PO DAILY 06/09/22 Albuterol Inhaler [Ventolin Inhaler*] 2 puff IH BID PRN 08/17/22 Finerenone [Kerendia] 10 mg PO DAILY 08/17/22 Furosemide [Lasix*] 40 mg PO BIDL 08/17/22 oxyBUTYnin chloride [Oxybutynin Chloride] 5 mg PO DAILY 08/17/22 Codeine/APAP [Tylenol #3*] 1 tab PO Q8H PRN #10 tab 08/18/22 - Past Medical/Surgical History Diabetic: Yes -: Diabetes mellitus type 2 -: HTN -: Gout -: Hyperlipidemia -: Hypothyroidism -: 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 fib on chronic anticoagulation -: Crohn's Disease (non active) -: spinal surgery -: 2 hydroceles -: Fistula repair -: Incomplete spinal stroke -: right hand Psychosocial/ Personal History: Patient is disabled, lives at home with his . - Family History Mother Medical History: Hypertension, Diabetes, Stroke Notes: with gangrene leg - Social History Smoking Status: Unknown if ever smoked Alcohol use: No CD- Drugs: No Caffeine use: Yes Place of Residence: Home Review of Systems 10-point ROS is otherwise unremarkable Physical Examination Temp Pulse Resp BP Pulse Ox 99 F 135 H 22 H 123/63 95 10/07/22 08:00 10/07/22 08:00 10/07/22 08:00 10/07/22 08:00 10/07/22 08:00 General: Alert, In no apparent distress, Oriented x3 Cardiovascular: No edema, Abnormal pulses Capillary refill: >2 Seconds Musculoskeletal: No clubbing, No swelling, No contractures, No erythema, No tenderness, No warmth Integumentary: Diabetic ulcer (Patient has multiple wounds bilateral lower extremities. Wounds to right ankle and heel are stable with large granulation, no purulence, no necrosis measuring 3.8cmx2.0cmX0.3cm and 2.1cmX2.0cmX0.2cm respectively. Wound to lateral left lower leg is worsened compared to visit in wound care yesterday), Other (Wound lateral left leg has purulent drainage, increased odor, necrotic tissue with measurements of 7.6cmX5.7cmX0.3cm) Neurological: Abnormal sensation Laboratory Data (last 24 hrs) 10/06/22 10/06/22 10/06/22 16:16 16:16 16:16 WBC 10.30 Hgb 11.8 L Hct 36.3 L Plt Count 223 PT 13.5 H INR 1.23 APTT 37.1 H Sodium 132 L Potassium 4.1 BUN 39 H Creatinine 1.96 H Glucose 271 H Total Bilirubin 0.5 AST 14 L ALT 26 Alkaline Phosphatase 149 H - Problems (1) Non-pressure ulcer of left lower extremity with necrosis of muscle Current Visit: Yes Status: Acute (2) Abscess of left lower leg Current Visit: Yes Status: Acute (3) DM2 (diabetes mellitus, type 2) Onset Date: 11/25/16 Current Visit: No Status: Chronic Qualifiers: 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 PAtient has been npo since yesterday due to nausea. Continue medihoney alginate to right ankle and heel wounds Physician Review: Patient Assessed, Agree with Above Assessment and Plan Time Spent Managing Pts care (In Minutes): 30
--- NOTE | 2022-10-07 15:13 | P.PN ---
Subjective Date of Service: 10/07/22 Chief Complaint: Left lower extremity cellulitis/wound No acute events since admission. He reports significant pain in his bilateral feet (left > right). He has been experiencing fevers and chills. He denies any chest pain, palpitations, or shortness of breath. Review of Systems 10-point ROS is otherwise unremarkable Integumentary: Rash (bilateral feet) Physical Examination - Vital Signs Temperature: 97.3 F Blood Pressure: 112/82 Pulse: 75 Respirations: 24 Pulse Ox (%): 94 - Physical Exam General: Alert, In no apparent distress, Oriented x3 HEENT: Atraumatic, Mucous membr. moist/pink, Sclerae nonicteric Neck: JVD not distended Respiratory: Clear to auscultation bilaterally, Normal air movement Cardiovascular: No edema, No murmurs, Irregular heart rate/rhythm Gastrointestinal: Normal bowel sounds, Soft and benign, Non-distended, No tenderness, No rebound, No guarding Musculoskeletal: No clubbing Integumentary: No rashes, Other (bilateral feet covered in clean dressing) Neurological: Normal speech, Normal affect - Studies Laboratory Data (last 24 hrs) 10/06/22 10/06/22 10/06/22 16:16 16:16 16:16 WBC 10.30 Hgb 11.8 L Hct 36.3 L Plt Count 223 PT 13.5 H INR 1.23 APTT 37.1 H Sodium 132 L Potassium 4.1 BUN 39 H Creatinine 1.96 H Glucose 271 H Total Bilirubin 0.5 AST 14 L ALT 26 Alkaline Phosphatase 149 H Microbiology Data (last 24 hrs): 10/06/22 17:01 Nasopharnyx Influenza Type A Antigen Screen - Final 10/06/22 17:01 Nasopharnyx Influenza Type B Antigen Screen - Final Assessment And Plan - Plan # Sepsis likely secondary to Left Lower Extremity Purulent Cellulitis He met sepsis criteria based on temperature > 100.9 F, HR > 90 bpm, and RR > 20 breaths/min, and the suspected source is skin/soft tissue infection. - Consulted Podiatry and spoke with Dr. Dupree - recommendations appreciated - Plan for debridement later today - Sepsis order set was initiated - Initial Lactate was 2.0 - Chest x-ray = "No acute cardiopulmonary disease." - Left lower extremity Doppler = "No DVT in the left lower extremity." - Blood cultures drawn before antibiotics were given - Broad spectrum antibiotics started: Vancomycin + Cefepime - In regards to fluids: - 30 mL/kg of IV fluids was not administered given SBP > 90, MAP > 65, lactic acid < 4 # Hyperglycemia in Type II Diabetes Mellitus - Hgb A1c = 9.2 % - Correction scale insulin # Chronic Atrial Fibrillation - Continue home sotalol, apixaban # Chronic Kidney Disease Stage III # 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 Valera catheter balloon deployed within the prostate. The catheter should be repositioned." - Informed battery charger conveyor lineMary, about misplaced Valera catheter. She will speak to bedside RN to reposition - Monitor creatinine and urine output - If worsening, obtain renal ultrasound - Renally dose medications # Chronic Compensated Diastolic Heart Failure # Hypertension - Continue home furosemide # Gout - Continue home allopurinol # Hypothyroidism - Continue home levothyroxine # Gastroesophageal Reflux Disease - Continue home omeprazole Gonzalo Powell M.D.
[2022-10-07] MEDS: NA CHLORIDE 0.9% 1,000 ML ONE (16:46)
[2022-10-07] MEDS: FUROSEMIDE 40 MG TABLET PO SCH (17:00)
[2022-10-07] MEDS ORDERED: INSULIN -REGULAR HUMAN 50 UNIT/0.5 ML ML ONE (17:00)
[2022-10-07] MEDS ORDERED: FENTANYL CITR 100 MCG/2 ML ONE (17:01)
[2022-10-07] MEDS ORDERED: propofoL 200 MG/20 ML VIAL IV ONE (17:01)
[2022-10-07] MEDS ORDERED: MIDAZOLAM HCL 2 MG/2 ML INJ ONE (17:01)
[2022-10-07] MEDS ORDERED: ONDANSETRON 4 MG/2 ML VIAL ONE (17:02)
[2022-10-07] MEDS ORDERED: Phenylephrine HCl 10 MG/ML 1 ML VIAL ONE (17:29)
[2022-10-07] MEDS ORDERED: NS 0.9% VIAL 20 ML ONE (17:30)
--- NOTE | 2022-10-07 17:42 | P.OP ---
Preoperative diagnosis: left leg/ankle abscess Postoperative diagnosis: same with possible osteomyelitis left fibula Primary procedure: incision and debridement left lateral ankle/leg wound Secondary procedure: bone biopsy Anesthesia: mac Estimated blood loss: 20cc Specimen: bone for gross Findings: necrotic tissue with purulenc lateral left ankle wound Operative Technique: see dictated note Complications: None Complications: none Implants: none Fluids & blood products: none Transferred to: Recovery Room Condition: Fair
--- NOTE | 2022-10-07 19:12 | OP ---
Surgeon: Clinton Dupree Jr, DPM Preoperative Diagnosis: Left leg/ankle abscess. Postoperative Diagnosis: Left leg/ankle abscess. Procedure: Left leg/ankle incision and debridement with bone biopsy, pathology bone sent for gross. Anesthesia: MAC. Hemostasis: None. Estimated Blood Loss: 20 cc. Materials: Vashe-soaked 4x4s. Injectables: None. Complications: None. Procedure In Detail: The patient was brought into [facility] Operating Room and placed on the OR table in supine position. The patient was placed under sedation by anesthesiologist and th e patient was prepped and draped in the usual aseptic manner. Attention was directed to the left lat eral ankle and lower leg, at which time an open wound was identified with tendon exposure of the alba andres tendons and significant necrotic and purulent tissue distally. Utilizing a 10 blade, the necrot ic and nonviable tissue was debrided to bleeding tissue. It was noted to extend distally, at which t hilda the incision was extended and the ulceration was opened up, at this point identified further necr otic tissue that was debrided to the level of the lateral and posterior aspect of the distal fibula. At this point, a bone biopsy was taken utilizing a rongeur at the fibula. The wound was irrigated w ith copious amounts of normal sterile saline utilizing pulse lavage with Betadine. After irrigation, the wound was explored to verify all necrotic tissue visible. Necrotic tissue was removed and a cur ette was utilized once again to debride the wound in toto. This was irrigated once again and the wou nd was packed wet-to-dry with Vashe-soaked 4x4s, dry 4x4s, ABD pads, Kerlix, and an Stephen wrap. The soniya marcano tolerated the procedure and anesthesia well and was transferred from OR to recovery with vital signs stable. RS/DAVIDL Voice ID: [id number] Report ID: [id number]
[2022-10-07] MEDS ORDERED: METOPROLOL TARTRATE 5 MG/5 ML INJ IV STA (20:31)
[2022-10-07] MEDS ORDERED: AMIODARONE HCL 150 MG in D5W 100 ML IV STA (21:26)
--- NOTE | 2022-10-07 21:31 | P.PN ---
Date of Service: 10/07/22 Patient has developed A-fib with RVR, he is on sotalol at home 80 milligrams twice daily which she did receive both this morning and evening, his rate is in the 170s currently. I discussed case with cardiology who recommends patient be loaded with IV amiodarone and started on continuous amiodarone infusion. Patient be moved to the ICU and started on amiodarone. Patient asymptomatic at this time.
[2022-10-07] MEDS ORDERED: AMIODARONE HCL 900 MG in Dextrose 5%-Water 482 ML IV SCH (22:00)
[2022-10-07] MEDS: AMIODARONE IN DEXTROSE,ISO-OSM 360 MG/200 ML BAG IV ONE (22:38)
[2022-10-07] MEDS: VANCOMYCIN 2 GM in NA CHLORIDE 0.9% 500 ML IVPB SCH (23:10)
[2022-10-08] MEDS ORDERED: AMIODARONE IN DEXTROSE,ISO-OSM 360 MG/200 ML BAG IV ONE (03:40)
[2022-10-08] MEDS: AMIODARONE IN DEXTROSE,ISO-OSM 360 MG/200 ML BAG IV ONE (03:48)
[2022-10-08] MEDS: ONDANSETRON 4 MG/2 ML VIAL IV PRN ×2 (04:04→16:47)
[2022-10-08 04:53] LABS: Absolute Lymphocytes (CBC) 1.5 K/uL (0.7-4.9); Hematocrit 28.8 % (39.6-49.0); Lymphocytes % 13.5 % (15.3-44.8); MCV 84.2 fL (80-100); Platelets 211 thou/uL (152-406); RBC Red Blood Cell Count 3.42 M/uL (4.33-5.43)
[2022-10-08 05:07] LABS: Potassium 4.1 mEq/L (3.5-5.1)
[2022-10-08] MEDS: LEVOTHYROXINE SOD 0.075 MG TAB PO SCH (06:16)
--- NOTE | 2022-10-08 06:50 | P.PN ---
Subjective Date of Service: 10/08/22 Chief Complaint: Left lower extremity cellulitis/wound Subjective: Improving, Doing well Review of Systems 10-point ROS is otherwise unremarkable Physical Examination - Vital Signs Temperature: 98.1 F Blood Pressure: 110/65 Pulse: 54 Respirations: 22 Pulse Ox (%): 97 - Physical Exam General: Alert, In no apparent distress, Oriented x3 Cardiovascular: No edema, Abnormal pulses Capillary refill: <2 Seconds Musculoskeletal: No clubbing, No swelling, No contractures, No erythema, No tenderness, No warmth Integumentary: No rashes, No breakdown, No tenderness/swelling, No erythema, No warmth, No cyanosis, Diabetic ulcer (ulceration lateral left ankle s/p 1 day incision and drainage. Wound bed is 100% granular, no purulence, no nonviable tissue) Neurological: Abnormal sensation Assessment And Plan - Current Problems (Diagnosis) (1) Non-pressure ulcer of left lower extremity with necrosis of muscle Current Visit: Yes Status: Acute (2) Abscess of left lower leg Current Visit: Yes Status: Acute (3) DM2 (diabetes mellitus, type 2) Onset Date: 11/25/16 Current Visit: No Status: Chronic Plan: d/c wet to dry Vashe dressing Begin VAC today with dressing changes q48h Arterial doppler left lower extremity Qualifiers: Diabetes mellitus residential insulin use: with termite treater helper use Diabetes mellitus complication status: with hyperglycemia Qualified Code(s): E11.65 - Type 2 diabetes mellitus with hyperglycemia; Z79.4 - salvage determiner (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 (4) Diabetic ulcer of right heel Current Visit: No Status: Resolved Physician Review: Patient Assessed, Agree with Above Assessment and Plan
[2022-10-08] MEDS: INSULIN -REGULAR HUMAN 50 UNIT/0.5 ML ML SQ SCH ×4 (07:30→20:38)
[2022-10-08] MEDS ORDERED: LEVOTHYROXINE SODIUM 150 MCG PO SCH (09:00)
[2022-10-08] MEDS ORDERED: HOME MED 1 EA UNK (Omeprazole [Omeprazole] 10 MG Capsule.Dr) PO SCH (09:00)
[2022-10-08] MEDS: PANTOPRAZOLE 40MG TABLET PO SCH (09:18)
[2022-10-08] MEDS: FUROSEMIDE 40 MG TABLET PO SCH (09:18)
[2022-10-08] MEDS: allopurinoL 100 MG TAB PO SCH (09:19)
[2022-10-08] MEDS: APIXABAN 2.5 MG TABLET PO SCH ×2 (09:19→20:20)
[2022-10-08] MEDS: CEFEPIME 2 GM in NA CHLORIDE 0.9% 100 ML IV SCH ×2 (09:20→20:19)
--- NOTE | 2022-10-08 09:21 | P.PN ---
Date of Service: 10/08/22 Chief Complaint: Left lower extremity cellulitis/wound Subjective: Overnight, patient went into Afib with RVR and was subsequently transferred to the ICU and placed on amiodarone drip. at bedside. + chest pain Physical Examination Temp Pulse Resp BP Pulse Ox 98.1 F 56 22 H 99/56 L 97 10/08/22 06:50 10/08/22 09:18 10/08/22 06:50 10/08/22 09:18 10/08/22 06:50 General: Alert, In no apparent distress, Oriented x3 HEENT: Atraumatic, Normocephalic Neck: Supple, JVD not distended Respiratory: Clear to auscultation bilaterally, Normal air movement Cardiovascular: Edema bilateral lower extremities L>R, Irregular heart rate/rhythm Gastrointestinal: Normoactive bowel sounds. Distended. Musculoskeletal: No clubbing. Paraplegic Integumentary: Pressure ulcer (right heel, right lateral ankle, left lateral ankle) Dressing clean dry and intact. Neurological: Normal speech, Normal tone, Normal affect Urinary: chronic myers catheter. Laboratory Data - Reviewed Microbiology Data - Reviewed COVID Negative Influenza A&B Negative Imagings Data: - CT Abdomen/Pelvis 10/06: " No acute intra-abdominal or pelvic finding" - XR Chest 10/06: "No acute cardiopulmonary disease." - Venous study LLE 10/06: "No DVT in the left lower extremity." Medications List: Reviewed Assessment and Plan Problem List Cellulitis LLE Diabetes Mellitus type II CKD III Atrial Fibrillation Hypertension Hypothyroidism Hyperlipidemia Chronic Diastolic Congestive Heart Failure Paraplegia Gout Cellulitis of Left Lower Extremity/Ankle with chronic wound infection - Venous study LLE 10/06: "No DVT in the left lower extremity." - Patient sees podiatry Dr. Dupree as outpatient for foot wound management/wound care who is also consulted. - Right ankle wound culture 10/07: 2+ coagulase positive staph - Left Lower Leg wound culture 10/06: Staphylococcus aureus - Recent history of MDR infection of RLE and LLE wounds on 08/17/2022: Methicillin-Resistant Staphylococcus aureus, Citrobacter freundii and Enterobacter cloacae - Currently on Cefepime and Vancomycin (started 10/07) Urinary Tract Infection - Chronic myers catheter for ~2 years - Urine culture 10/06: 2+ gram negative rods Leukocytosis improved. Afebrile. Blood cultures 10/06: No growth to date Afib: cardiology following CKD: nephrology following Recommendations - Continue Cefepime and Vancomycin for now (10/07-) - Will follow up with final wound and urine culture results and adjust antibiotics as appropriate - s/p left ankle debridement on 10/[address] Dupree. Continue wound care. - Strict blood glucose control - Pressure offloading measures bilateral feet/ankles Case discussed with [place] Bobby
[2022-10-08] MEDS ORDERED: NA CHLORIDE 0.9% 500 ML IV ONE (10:39)
[2022-10-08] MEDS: NA CHLORIDE 0.9% 1,000 ML ONE (11:00)
[2022-10-08] MEDS: NA CHLORIDE 0.9% 1,000 ML IV SCH ×2 (11:00→19:31)
--- NOTE | 2022-10-08 13:33 | CON ---
Date of Consultation: 10/08/2022 Reason For Consultation: Elevated BUN and creatinine, fluid management. History Of Present Illness: This is a pleasant 57-year-old gentleman with significant past medical history of diabetes complicated with neuropathy and nephropathy, chronic kidney disease stage 3 secondary to diabetes nephropathy with baseline creatinine of 1.6-1.8, and GFR 35-40. The patient had hypertension, AFib, congestive heart failure, diastolic dysfunction, the patient was following with Dr. Dupree, Podiatry for chronic Charcot foot joint and foot infection on a weekly basis. Apparently, his wound got worse and the patient started feeling weak with nausea and decrease in his urine output. For that reason, he was brought to the ER, found to have fever, elevation in BUN and creatinine, sepsis, and AFib. For that reason, the patient was admitted. The patient was started on amiodarone drip. The patient denied taking any nonsteroidal. No recent change in his medication except the wound care. The patient denied any recent exposure to any contrast. Upon arrival to the hospital, the patient found to have creatinine of 1.9, currently creatinine 2.2, GFR dropped to 33. For that reason, we have been consulted. There is no exposure to any contrast. No recent change in his medications as I mentioned. The patient has AFib with RVR, had a couple of episodes on low blood pressure down to the 99. The patient had decrease in urine output. Past Medical History: Includes; 1. Diabetes complicated with neuropathy and nephropathy. 2. Hypertension. 3. Hyperlipidemia. 4. AFib and congestive heart failure with diastolic dysfunction. 5. Chronic kidney disease, baseline creatinine 1.6-1.8, GFR 35-40. Allergies: METFORMIN, IBUPROFEN. Home Medications: Include insulin, levothyroxine, omeprazole, Eliquis, allopurinol, sotalol, colchicine, nitrofurantoin, finerenone, Lasix, oxybutynin, and codeine. Past Surgical History: Includes; 1. Wound debridement. 2. Hydrocele. 3. Fistula repair. 4. Incomplete spinal stroke with quadriplegia. 5. Right hand surgery. Family History: Positive for hypertension and diabetes. Social History: Denied smoking, denied drinking, denied drugs abuse. Review of Systems: Head and Neck: No red eye. No ear pain. GI: Has nausea. No vomiting. : No polyuria. Has Valera catheter. Summer Internship: Not applicable. Respiratory: No shortness of breath. Cardiovascular: No chest pain. Has leg swelling. Endocrine: No polydipsia. Skin: No rash. Neuro: Has spinal stroke with quadriplegia. Physical Examination: General: When I saw the patient; the patient lying in bed, on room air. Vital Signs: Blood pressure of 122/67, pulse of 89, irregular. Chest: Clear to auscultation. Heart: S1, S2. Regular. Abdomen: Soft, nontender. Extremities: Dressing on both feet with wound VAC with bad smell as the patient has Valera. Neuro: The patient had quadriplegia. Laboratory Data: WBC 10.9, hemoglobin 9.7, hematocrit 28.7. Sodium 133, potassium 4.1, bicarb 24, BUN 50, creatinine 2.2, GFR 33, calcium 8.3. CT abdomen and pelvis was done on the , did not show any hydronephrosis, no obstruction, no calculi, no perinephric stranding. Culture growing Staph aureus. Assessment And Plan: 1. Acute kidney injury secondary to prerenal/cardiorenal, superimposed with toxic ATN secondary to sepsis, looked to me the patient on the dry side. I agree with holding the diuresis. I am going to bolus the patient with 500 of normal saline, then maintain the patient on 75 mL per hour and we will follow up the patient closely. Obstructive uropathy has been ruled out. No acidosis, no hyperkalemia. I do not see the need for discussing any renal replacement therapy for the time being. We will follow up the patient. 2. Hyponatremia secondary to depletional. We will start hydration. We will follow up. 3. Congestive heart failure, diastolic dysfunction. Currently, the patient on the dry side and in shock state. I am going to be holding the diuresis. We will start hydration. 4. Atrial fibrillation with rapid ventricular response as by Cardiology. Continue amiodarone. 5. Cellulitis/infection, soft tissue. Continue current antibiotic, dose appropriate. We will follow up culture. Current Medications: The patient on cefepime, vancomycin, amiodarone, metoprolol, Lasix, pantoprazole, levothyroxine. Time spent examining of the patient [id number], reviewing data, lab and radiology, placing orders, discussing the case with the patient and by bedside, discussing the case with the member including ICU nursing and ICU staff and hospitalist more than 75 minutes. ANDREA Voice ID: [id number] Report ID: [id number] [email or web address]
[2022-10-08] MEDS ORDERED: AMIODARONE IN DEXTROSE,ISO-OSM 360 MG/200 ML BAG IV SCH (14:00)
--- NOTE | 2022-10-08 15:00 | RAD REPORT ---
EXAM DESCRIPTION: US - Lower Extremity Artery Uni Ltd - 10/08/2022 2:48 pm CLINICAL HISTORY: pvd Leg pain, claudication COMPARISON: No comparisons FINDINGS: Left lower extremity arterial Doppler was performed. Triphasic waveforms are seen througho ut the left lower extremity arterial system. No high-grade stenosis or occlusion. IMPRESSION: No significant left lower quadrant peripheral vascular disease.
--- NOTE | 2022-10-08 17:34 | EKG ---
Test Date: 2022-10-07 Test Time: 17:42:33 Vacuum Drier Operator: LUIS MEASUREMENT RESULTS: Intervals: Rate: 64 [place]: 120 QRSD: 110 QT: 412 QTc: 425 [place]: P: 14 [place]: 120 QRS: 65 T: -50 INTERPRETIVE STATEMENTS: Normal sinus rhythm Incomplete right bundle branch block Nonspecific T wave abnormality Abnormal ECG Compared to ECG 10/06/2022 16:42:40 Incomplete right bundle-branch block now present T-wave abnormality now present Atrial premature complex(es) no longer present Aberrant conduction of supraventricular beat(s) no longer present Right bundle-branch block no longer present Electronically Signed On 10-08-22 17:31:41 CDT by Kofi Mo
--- NOTE | 2022-10-08 18:23 | P.PN ---
Subjective Date of Service: 10/08/22 Chief Complaint: Left lower extremity cellulitis/wound Overnight, he developed atrial fibrillation with rapid ventricular response. He was started on amiodarone drip and has converted to normal sinus rhythm. He underwent an incision and debridement left lateral ankle/leg wound and bone biopsy yesterday. He denies any chest pain, palpitations, or shortness of breath. Review of Systems 10-point ROS is otherwise unremarkable Musculoskeletal: Foot Pain (left) Physical Examination - Vital Signs Temperature: 97.3 F Blood Pressure: 132/85 Pulse: 53 Respirations: 24 Pulse Ox (%): 99 Assessment And Plan - Plan - Physical Exam General: Alert, In no apparent distress, Oriented x3 HEENT: Atraumatic, Mucous membr. moist/pink, Sclerae nonicteric Respiratory: Clear to auscultation bilaterally, Normal air movement Cardiovascular: No edema, No murmurs, Rregular heart rate/rhythm Gastrointestinal: Normal bowel sounds, Soft, Non-distended, No tenderness Musculoskeletal: No clubbing Integumentary: No rashes, Other (bilateral feet covered in clean dressing) Neurological: Normal speech, Normal affect # Sepsis likely secondary to Left Lower Extremity Purulent Cellulitis He met sepsis criteria based on temperature > 100.9 F, HR > 90 bpm, and RR > 20 breaths/min, and the suspected source is skin/soft tissue infection. - Consulted Podiatry and spoke with Dr. Dupree - recommendations appreciated - S/P incision and debridement left lateral ankle/leg wound and bone biopsy on 10/07 - Per Dr. Dupree, necrotic tissue was near bone, but no definitive osteomyelitis. He obtained bone biopsy during this procedure - Sepsis order set was initiated - Initial Lactate was 2.0 - Chest x-ray = "No acute cardiopulmonary disease." - Left lower extremity Doppler = "No DVT in the left lower extremity." - Blood cultures drawn before antibiotics were given - Broad spectrum antibiotics started: Vancomycin + Cefepime - In regards to fluids: - 30 mL/kg of IV fluids was not administered given SBP > 90, MAP > 65, lactic acid < 4 # KDIGO Stage I Acute Kidney Injury on Chronic Kidney Disease Stage III # History of Spinal Stroke complicated by Paraplegia # Chronic Indwelling Valera Catheter # Microscopic Hematuria - Nephrology consulted - recommendations appreciated - Creatinine = 1.96 -> 1.81 -> 2.29 - Urinalysis = 2+ glucose, 3+ blood, 500 leukocyte esterase, > 50 RBCs, >50 WBCs, 3+ protein - CT abdomen/pelvis = "no acute intra-abdominal or pelvic finding. Valera catheter balloon deployed within the prostate. The catheter should be repositioned." - Monitor creatinine and urine output - If worsening, obtain renal ultrasound - Renally dose medications # Hyperglycemia in Type II Diabetes Mellitus - Hgb A1c = 9.2 % - Correction scale insulin # Atrial Fibrillation with Rapid Ventricular Response - Cardiology consulted - recommendations appreciated - Currently on amiodarone drip - transition to PO amiodarone after 24 hours of drip - Continue home apixaban # Chronic Compensated Diastolic Heart Failure # Hypertension - Continue home furosemide # Gout - Continue home allopurinol # Hypothyroidism - Continue home levothyroxine # Gastroesophageal Reflux Disease - Continue home omeprazole Gonzalo Powell M.D.
[2022-10-08] MEDS: AMIODARONE HCL 200 MG TAB PO SCH (20:20)
[2022-10-08] MEDS: MEDIHONEY 44 ML TOPICAL TUBE TOP SCH (20:20)
[2022-10-08] MEDS: VANCOMYCIN 2 GM in NA CHLORIDE 0.9% 500 ML IVPB SCH (22:38)
[2022-10-09 06:06] LABS: Absolute Lymphocytes (CBC) 1.2 K/uL (0.7-4.9); Hematocrit 27.4 % (39.6-49.0); Lymphocytes % 15.5 % (15.3-44.8); MCV 85.4 fL (80-100); MPV 9.9 fL (7.6-11.3); Platelets 174 thou/uL (152-406); RBC Red Blood Cell Count 3.21 M/uL (4.33-5.43)
[2022-10-09 06:21] LABS: Phosphorus 3.8 mg/dL (2.5-4.9); Potassium 4.3 mEq/L (3.5-5.1)
[2022-10-09] MEDS: LEVOTHYROXINE SOD 0.075 MG TAB PO SCH (06:22)
--- NOTE | 2022-10-09 08:00 | P.PN ---
Subjective Date of Service: 10/09/22 Chief Complaint: Left lower extremity cellulitis/wound Subjective: Improving (PAtient had VAC applied this morning) Review of Systems 10-point ROS is otherwise unremarkable Physical Examination - Vital Signs Temperature: 97.7 F Blood Pressure: 123/69 Pulse: 54 Respirations: 18 Pulse Ox (%): 98 - Physical Exam General: Alert, In no apparent distress, Oriented x3 Cardiovascular: No edema, Normal pulses Capillary refill: <2 Seconds Musculoskeletal: No clubbing, No swelling, No contractures, No erythema, No tenderness, No warmth Integumentary: Other (Wound VAC in place left ankle wound, no periwound erythema noted) Neurological: Abnormal sensation - Studies wbc wnl Imagings Data: ARterial doppler left lower extremity reveals no occlusion Assessment And Plan - Current Problems (Diagnosis) (1) Non-pressure ulcer of left lower extremity with necrosis of muscle Current Visit: Yes Status: Acute (2) Abscess of left lower leg Current Visit: Yes Status: Acute (3) DM2 (diabetes mellitus, type 2) Onset Date: 11/25/16 Current Visit: No Status: Chronic Plan: Continue wound vac Continue iv antibiotics per infectious disease Due to patient's comorbidities, need for iv antibiotics and wound vac patient would benefit from placement in LTAC 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
[2022-10-09] MEDS: allopurinoL 100 MG TAB PO SCH (08:42)
[2022-10-09] MEDS: AMIODARONE HCL 200 MG TAB PO SCH ×2 (08:42→20:50)
[2022-10-09] MEDS: PANTOPRAZOLE 40MG TABLET PO SCH (08:42)
[2022-10-09] MEDS: APIXABAN 2.5 MG TABLET PO SCH ×2 (08:42→20:50)
[2022-10-09] MEDS: CEFEPIME 2 GM in NA CHLORIDE 0.9% 100 ML IV SCH ×2 (08:43→20:50)
[2022-10-09] MEDS: MEDIHONEY 44 ML TOPICAL TUBE TOP SCH (08:44)
[2022-10-09] MEDS: INSULIN -REGULAR HUMAN 50 UNIT/0.5 ML ML SQ SCH ×4 (09:38→20:49)
--- NOTE | 2022-10-09 10:04 | P.PN ---
Date of Service: 10/09/22 Chief Complaint: Left lower extremity cellulitis/wound Subjective: Patient seen and examined at [facility]. + mild nausea. Otherwise no new or worsening complaints. No acute events reported overnight. Physical Examination Temp Pulse Resp BP Pulse Ox 97.6 F 56 18 142/73 H 98 10/09/22 08:00 10/09/22 08:00 10/09/22 08:00 10/09/22 08:00 10/09/22 08:00 General: Alert, In no apparent distress, Oriented x3 HEENT: Atraumatic, Normocephalic Neck: Supple, JVD not distended Respiratory: Clear to auscultation bilaterally, Normal air movement Cardiovascular: Edema bilateral lower extremities L>R, Irregular heart rate/rhythm Gastrointestinal: Normoactive bowel sounds. Distended. Musculoskeletal: No clubbing. Paraplegic Integumentary: Pressure ulcer right heel, right lateral ankle, left lateral ankle) Dressing clean dry and intact. Neurological: Normal speech, Normal tone, Normal affect Urinary: chronic myers catheter. Laboratory Data - Reviewed Microbiology Data - Reviewed COVID Negative Influenza A&B Negative Imagings Data: - CT Abdomen/Pelvis 10/06: " No acute intra-abdominal or pelvic finding" - XR Chest 10/06: "No acute cardiopulmonary disease." - Venous study LLE 10/06: "No DVT in the left lower extremity." Medications List: Reviewed Assessment and Plan Problem List Cellulitis LLE Diabetes Mellitus type II CKD III Atrial Fibrillation Hypertension Hypothyroidism Hyperlipidemia Chronic Diastolic Congestive Heart Failure Paraplegia Gout Anemia Cellulitis of Left Lower Extremity/Ankle with chronic wound infection - Venous study LLE 10/06: "No DVT in the left lower extremity." - Patient sees podiatry Dr. Dupree as outpatient for foot wound management/wound care who is also consulted. - Left Lower Leg wound culture 10/06: Staphylococcus aureus - Right ankle wound culture 10/07: 2+ coagulase positive staph - Recent history of MDR infection of RLE and LLE wounds on 08/17/2022: Methicillin-Resistant Staphylococcus aureus, Citrobacter freundii and Enterobacter cloacae - Currently on Cefepime and Vancomycin (started 10/07) Catheter Associated Urinary Tract Infection - Chronic myers catheter for ~2 years - Urine culture 10/06: Providencia rettgeri - On Cefepime Leukocytosis resolved. Afebrile. Blood cultures 10/06: No growth to date Afib: cardiology following CKD: nephrology following Recommendations - Continue Cefepime and Vancomycin for at least 2 weeks (10/07-). Will follow up with bone biopsy results and adjust antibiotics as appropriate. - UTI: Urine growing Providencia, sensitive to Cefepime. - s/p left ankle debridement on 10/07. - Continue current wound care/wound vac orders per Dr. Dupree - Strict blood glucose control - Pressure offloading measures Case discussed with [place] Bobby
[2022-10-09] MEDS: NA CHLORIDE 0.9% 1,000 ML IV SCH ×2 (10:31→23:14)
--- NOTE | 2022-10-09 15:22 | P.PN ---
Subjective Date of Service: 10/09/22 Chief Complaint: Left lower extremity cellulitis/wound No acute events overnight. He has been transitioned off of the amiodarone drip. His heart rate has improved. His renal function continues to worsen. Bone biopsy pending. His urine culture has returned positive for Providencia Rettgeri. He denies any fevers, chills, chest pain, palpitations, or shortness of breath. Review of Systems 10-point ROS is otherwise unremarkable Musculoskeletal: Foot Pain (left) Physical Examination - Vital Signs Temperature: 97.8 F Blood Pressure: 147/80 Pulse: 59 Respirations: 18 Pulse Ox (%): 98 - Studies Microbiology Data (last 24 hrs): 10/06/22 19:00 Clean Catch Urine [place] Count - Final BETWEEN 10,000 & 100,000 CFU/ML 10/06/22 19:00 Clean Catch Urine - Final Providencia Rettgeri Assessment And Plan - Plan - Physical Exam General: Alert, In no apparent distress, Oriented x3 HEENT: Atraumatic, Mucous membr. moist/pink, Sclerae nonicteric Respiratory: Clear to auscultation bilaterally, Normal air movement Cardiovascular: No edema, No murmurs, Regular heart rate/rhythm Gastrointestinal: Normal bowel sounds, Soft, Non-distended, No tenderness Musculoskeletal: No clubbing Integumentary: No rashes, Other (bilateral feet covered in clean dressing) Neurological: Normal speech, Normal affect # Sepsis likely secondary to Left Lower Extremity Purulent Cellulitis # Providencia Rettgeri Catheter-Associated Urinary Tract Infection - POA He met sepsis criteria based on temperature > 100.9 F, HR > 90 bpm, and RR > 20 breaths/min, and the suspected source is skin/soft tissue infection. - Consulted Podiatry and spoke with Dr. Dupree - recommendations appreciated - S/P incision and debridement left lateral ankle/leg wound and bone biopsy on 10/07 - Per Dr. Dupree, necrotic tissue was near bone, but no definitive osteomyelitis. He obtained bone biopsy during this procedure - Consulted Infectious Diseases and spoke with COMPLIANCE ASSISTANT Arsalan - recommendations appreciated - Plan to continue antibiotics for at least two weeks pending bone biopsy - Sepsis order set was initiated - Initial Lactate was 2.0 - Chest x-ray = "No acute cardiopulmonary disease." - Left lower extremity Doppler = "No DVT in the left lower extremity." - Blood cultures drawn before antibiotics were given - Broad spectrum antibiotics started: Vancomycin + Cefepime - In regards to fluids: - 30 mL/kg of IV fluids was not administered given SBP > 90, MAP > 65, lactic acid < 4 # KDIGO Stage I Acute Kidney Injury on Chronic Kidney Disease Stage III # History of Spinal Stroke complicated by Paraplegia # Chronic Indwelling Valera Catheter # Microscopic Hematuria - Nephrology consulted - recommendations appreciated - Creatinine = 1.96 -> 1.81 -> 2.29 -> 2.56 - Urinalysis = 2+ glucose, 3+ blood, 500 leukocyte esterase, > 50 RBCs, >50 WBCs, 3+ protein - CT abdomen/pelvis = "no acute intra-abdominal or pelvic finding. Valera catheter balloon deployed within the prostate. The catheter should be repositioned." - Monitor creatinine and urine output - Ordered renal ultrasound - Renally dose medications # Hyperglycemia in Type II Diabetes Mellitus - Hgb A1c = 9.2 % - Correction scale insulin # Atrial Fibrillation with Rapid Ventricular Response - Cardiology consulted - recommendations appreciated - Continue amiodarone, apixaban # Chronic Compensated Diastolic Heart Failure # Hypertension - Continue home furosemide # Gout - Continue home allopurinol # Hypothyroidism - Continue home levothyroxine # Gastroesophageal Reflux Disease - Continue home omeprazole Gonzalo Powell M.D.
--- NOTE | 2022-10-09 16:16 | RAD REPORT ---
EXAM DESCRIPTION: US - Renal Ultrasound-Complete - 10/09/2022 4:09 pm CLINICAL HISTORY: CROW Flank pain COMPARISON: Renal Ultrasound-Complete dated 11/22/2021 FINDINGS: Both kidneys are normal in size, shape and echotexture. The right kidney measures 10.5 x 6.5 x 5.1 cm. No hydronephrosis, focal mass or perinephric fluid. The left kidney measures 11.3 x 4.9 x 4.8 cm. No hydronephrosis, focal mass or perinephric fluid. The urinary bladder is incompletely distended without gross abnormality seen. IMPRESSION: Unremarkable renal sonogram.
--- NOTE | 2022-10-09 17:29 | PN ---
Date of Progress Note: 10/09/2022 Subjective: The patient was admitted with acute kidney injury secondary to poor perfusion ATN secondary to sepsis secondary to possible cellulitis. The patient was started on hydration, kidney function did not improve. Physical Examination: Vital Signs: When I saw the patient; blood pressure 143/64, pulse of 64, afebrile. Chest: Clear to auscultation. Heart: S1, S2. Systolic murmur. Abdomen: Soft, nontender. Extremity: Amputation of the Charcot foot joint with drainage with erythema of both lower extremities. Neurologic: Alert with quadriplegia. Laboratory Data: Hemoglobin 9.3. Sodium 133, potassium 4.3, bicarb 21, BUN 55, creatinine 2.5, GFR of 29. Renal ultrasound; 10.5/11.3, no hydronephrosis. Current Medications: The patient on include; 1. Cefepime. 2. Vancomycin. 3. Eliquis. 4. Pantoprazole. 5. Levothyroxine. 6. IV fluid. 7. Allopurinol. Assessment And Plan: 1. Acute kidney injury secondary to poor perfusion, ATN, toxic ATN, still kidney function not improving. I am going to continue IV fluid. I am going to send for further workup including the serology and we will follow up. Keep holding any KATHY inhibitor and ARB. Keep holding diuresis. 2. Hypertension. Keep holding KATHY inhibitor and diuresis. We will monitor. 3. Atrial fibrillation with rapid ventricular response. We will follow up with primary. 4. Sepsis secondary to cellulitis. Continue current antibiotic. The patient had elevation in the vancomycin. We will adjust the dosage. 5. Diabetes as by primary. Time spent examining the patient [id number], reviewing data, lab and radiology, placing order, discussing the case with the team assistant including hospitalist and nursing staff more than 35 minutes. ANDREA Voice ID: [id number] Report ID: [id number] AUSTYN
[2022-10-10] MEDS: NA CHLORIDE 0.9% 1,000 ML IV SCH ×2 (03:00→16:20)
[2022-10-10] MEDS: ONDANSETRON 4 MG/2 ML VIAL IV PRN ×2 (05:01→22:32)
[2022-10-10] MEDS: LEVOTHYROXINE SOD 0.075 MG TAB PO SCH (05:30)
[2022-10-10 06:40] LABS: Hematocrit 27.6 % (39.6-49.0)
[2022-10-10 06:49] LABS: Albumin 2.1 g/dL (3.4-5.0); Phosphorus 2.6 mg/dL (2.5-4.9); Potassium 4.4 mEq/L (3.5-5.1)
--- NOTE | 2022-10-10 07:15 | P.PN ---
Subjective Date of Service: 10/10/22 Primary Care Provider: +9 Chief Complaint: Left lower extremity cellulitis/wound Subjective: Improving, Doing well Review of Systems 10-point ROS is otherwise unremarkable Physical Examination - Vital Signs Temperature: 97.3 F Blood Pressure: 170/83 Pulse: 64 Respirations: 18 Pulse Ox (%): 98 - Physical Exam General: Alert, In no apparent distress, Oriented x3 Cardiovascular: No edema, Normal pulses Capillary refill: <2 Seconds Musculoskeletal: No clubbing, No swelling, No contractures, No erythema, No tenderness, No warmth Integumentary: Other (VAC removed at bedside. Wound is improved with 95% granulation, small amount of fibrin. No necrosis, no bone exposure.) Neurological: Abnormal sensation - Studies Microbiology Data (last 24 hrs): 10/06/22 19:00 Clean Catch Urine [place] Count - Final BETWEEN 10,000 & 100,000 CFU/ML 10/06/22 19:00 Clean Catch Urine - Final Providencia Rettgeri Assessment And Plan - Current Problems (Diagnosis) (1) Non-pressure ulcer of left lower extremity with necrosis of muscle Current Visit: Yes Status: Acute (2) Abscess of left lower leg Current Visit: Yes Status: Acute (3) DM2 (diabetes mellitus, type 2) Onset Date: 11/25/16 Current Visit: No Status: Chronic Plan: Continue wound vac Continue iv antibiotics per infectious disease Due to patient's comorbidities, need for iv antibiotics and wound vac patient would benefit from placement in LTAC Awaiting bone biopsy results Qualifiers: Diabetes mellitus [facility] insulin use: with extermination inspector use Diabetes mellitus complication status: with hyperglycemia Qualified Code(s): E11.65 - Type 2 diabetes mellitus with hyperglycemia; Z79.4 - [facility] (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 (4) Diabetic ulcer of right heel Current Visit: No Status: Resolved Physician Review: Patient Assessed, Agree with Above Assessment and Plan
[2022-10-10] MEDS: MEDIHONEY 44 ML TOPICAL TUBE TOP SCH (09:00)
[2022-10-10] MEDS ORDERED: VANCOMYCIN 2 GM in NA CHLORIDE 0.9% 500 ML IVPB SCH (09:00)
--- NOTE | 2022-10-10 09:09 | P.PN ---
Date of Service: 10/10/22 Chief Complaint: Left lower extremity cellulitis/wound Subjective: Patient in good spirits. at bedside. Discussed plan of care. Denies any new or worsening complaints. No acute events reported overnight. Physical Examination Temp Pulse Resp BP Pulse Ox 97.3 F 64 18 170/83 H 98 10/10/22 07:15 10/10/22 07:15 10/10/22 07:15 10/10/22 07:15 10/10/22 07:15 General: Alert, In no apparent distress, Oriented x3 HEENT: Atraumatic, Normocephalic Neck: Supple, JVD not distended Respiratory: Clear to auscultation bilaterally, Normal air movement Cardiovascular: Regular rate/rhythm. LLE edema present. Gastrointestinal: Normoactive bowel sounds. Distended. Musculoskeletal: No clubbing. Paraplegic Integumentary: Pressure ulcer right heel, right lateral ankle, left lateral ankle. Dressing clean dry and intact. Wound vac left ankle wound. Neurological: Normal speech, Normal tone, Normal affect Urinary: chronic myers catheter. Studies Laboratory Data - Reviewed Microbiology Data - Reviewed COVID Negative Influenza A&B Negative Imagings Data: - CT Abdomen/Pelvis 10/06: " No acute intra-abdominal or pelvic finding" - XR Chest 10/06: "No acute cardiopulmonary disease." - Venous study LLE 10/06: "No DVT in the left lower extremity." Medications List: Reviewed Assessment and Plan Problem List Cellulitis LLE Diabetes Mellitus type II CKD III Atrial Fibrillation Hypertension Hypothyroidism Hyperlipidemia Chronic Diastolic Congestive Heart Failure Paraplegia Gout Anemia Cellulitis of Left Lower Extremity/Ankle with chronic wound infection Osteomyelitis of LLE - Venous study LLE 10/06: "No DVT in the left lower extremity." - Patient sees podiatry Dr. Dupree as outpatient for foot wound management/wound care who is also consulted. - Left Lower Leg wound culture 10/06: Staphylococcus aureus - Right ankle wound culture 10/07: Staphylococcus aureus - Recent history of MDR infection of RLE and LLE wounds on 08/17/2022: Methi cillin-Resistant Staphylococcus aureus, Citrobacter freundii and Enterobacter cloacae - Previously on Cefepime and Vancomycin (10/07-10/10) - Left distal fibula bone, biopsy 10/07: "Consistent with acute osteomyelitis, recommend clinical and radiographic correlation" Catheter Associated Urinary Tract Infection - Chronic myers catheter for ~2 years - Urine culture 10/06: Providencia rettgeri - On Rocephin Leukocytosis resolved. Afebrile. Blood cultures 10/06: No growth to date Afib: cardiology following CKD: nephrology following Recommendations - Left distal fibula bone biopsy results consistent with acute osteomyelitis. Wound cultures growing MSSA. - Currently on Rocephin. Recommend switching to Cefazolin IV if patient decides to continue medical management route vs amputation. - Continue antibiotic therapy for 6 weeks via PICC line - Renally dose medications. - UTI: Urine growing Providencia, sensitive to Rocephin. - s/p left ankle debridement on 10/07. Continue current wound care/wound vac orders per Dr. Dupree - Strict blood glucose control - Pressure offloading measures Case discussed with [place] Bobby
[2022-10-10 09:50] LABS: Rheumatoid Factor NEG (NEG)
[2022-10-10] MEDS: INSULIN -REGULAR HUMAN 50 UNIT/0.5 ML ML SQ SCH ×4 (09:59→21:36)
[2022-10-10] MEDS: PANTOPRAZOLE 40MG TABLET PO SCH (09:59)
[2022-10-10] MEDS: AMIODARONE HCL 200 MG TAB PO SCH ×2 (09:59→21:34)
[2022-10-10] MEDS: APIXABAN 2.5 MG TABLET PO SCH ×2 (09:59→21:34)
[2022-10-10] MEDS: allopurinoL 100 MG TAB PO SCH (09:59)
[2022-10-10] MEDS: CEFTRIAXONE 1,000 MG in NA CHLORIDE 0.9% 50 ML IVPB SCH ×2 (10:08→21:24)
--- NOTE | 2022-10-10 10:32 | P.PN ---
Subjective Date of Service: 10/10/22 Primary Care Provider: +9 Chief Complaint: Left lower extremity cellulitis/wound Subjective: No new changes Physical Examination - Vital Signs Temperature: 98.0 F Blood Pressure: 185/86 Pulse: 65 Respirations: 18 Pulse Ox (%): 98 - Physical Exam General: Other (chronically ill-appearing) HEENT: Atraumatic, Normocephalic Neck: Supple Respiratory: Other (symmetric chest expansion) Cardiovascular: No rubs, No murmurs Gastrointestinal: Soft and benign, No rebound Musculoskeletal: No clubbing Integumentary: No warmth Neurological: Normal tone Urinary: Other (no bladder distention) External genitalia: Deferred Rectal: Deferred - Studies Microbiology Data (last 24 hrs): 10/06/22 19:00 Clean Catch Urine [place] Count - Final BETWEEN 10,000 & 100,000 CFU/ML 10/06/22 19:00 Clean Catch Urine - Final Providencia Rettgeri Assessment And Plan - Plan 1. CROW 2/2 ATN. SCr improved to 2.1. [place] po fluid intake. IVF prn for poor po fluid intake. 2. Hypertension. continue current medication regimen 3. Atrial fibrillation with rapid ventricular response. HR better controlled. Per other services. 4. Sepsis 2/2 LLE cellulitis w/ osteomyelitis. Per ID service. 5. DM2. Mngt per primary team. Physician Review: Patient Assessed, Agree with Above Assessment and Plan
--- NOTE | 2022-10-10 18:57 | P.PN ---
Subjective Date of Service: 10/10/22 Chief Complaint: Left lower extremity cellulitis/wound No acute events overnight. He reports that he is gradually feeling better. His bone biopsy is consistent with acute osteomyelitis. His creatinine is improving. We had an extensive discussion regarding prolonged IV antibiotic course versus amputation. He states that he would like to talk to his family about this further before making a decision. He denies any other symptoms at this time. Review of Systems 10-point ROS is otherwise unremarkable General: Weakness (generalized) Physical Examination - Vital Signs Temperature: 98.1 F Blood Pressure: 149/79 Pulse: 61 Respirations: 17 Pulse Ox (%): 98 Assessment And Plan - Plan - Physical Exam General: Alert, In no apparent distress, Oriented x3 HEENT: Atraumatic, Mucous membr. moist/pink, Sclerae nonicteric Respiratory: Clear to auscultation bilaterally, Normal air movement Cardiovascular: No edema, No murmurs, Regular heart rate/rhythm Gastrointestinal: Normal bowel sounds, Soft, Non-distended, No tenderness Musculoskeletal: No clubbing Integumentary: No rashes, Other (bilateral feet covered in clean dressing) Neurological: Normal speech, Normal affect # Sepsis likely secondary to Left Lower Extremity Purulent Cellulitis with Methicillin-Sensitive Staphylococcus Aureus Osteomyelitis # Providencia Rettgeri Catheter-Associated Urinary Tract Infection - POA He met sepsis criteria based on temperature > 100.9 F, HR > 90 bpm, and RR > 20 breaths/min, and the suspected source is skin/soft tissue infection. - Consulted Podiatry and spoke with Dr. Dupree - recommendations appreciated - S/P incision and debridement left lateral ankle/leg wound and bone biopsy on 10/07 - Per Dr. Dupree, necrotic tissue was near bone, but no definitive osteomyelitis. He obtained bone biopsy during this procedure - Bone biopsy consistent with acute osteomyelitis - he is going to talk to his family regarding amputation vs prolonged IV antibiotic course - Consulted Infectious Diseases and spoke with TELEPHONY ENGINEER Bentoni - recommendations appreciated - Sepsis order set was initiated - Initial Lactate was 2.0 - Chest x-ray = "No acute cardiopulmonary disease." - Left lower extremity Doppler = "No DVT in the left lower extremity." - Blood cultures drawn before antibiotics were given - Broad spectrum antibiotics started: Vancomycin + Cefepime - In regards to fluids: - 30 mL/kg of IV fluids was not administered given SBP > 90, MAP > 65, lactic acid < 4 # KDIGO Stage I Acute Kidney Injury on Chronic Kidney Disease Stage III # History of Spinal Stroke complicated by Paraplegia # Chronic Indwelling Valera Catheter # Microscopic Hematuria - Nephrology consulted - recommendations appreciated - Creatinine = 1.96 -> 1.81 -> 2.29 -> 2.56 -> 2.13 - Urinalysis = 2+ glucose, 3+ blood, 500 leukocyte esterase, > 50 RBCs, >50 WBCs, 3+ protein - CT abdomen/pelvis = "no acute intra-abdominal or pelvic finding. Valera catheter balloon deployed within the prostate. The catheter should be repositioned." - Renal ultrasound = "unremarkable renal sonogram." - Monitor creatinine and urine output - Renally dose medications # Hyperglycemia in Type II Diabetes Mellitus - Hgb A1c = 9.2 % - Correction scale insulin # Atrial Fibrillation with Rapid Ventricular Response - Cardiology consulted - recommendations appreciated - Continue amiodarone, apixaban # Chronic Compensated Diastolic Heart Failure # Hypertension - Continue home furosemide # Gout - Continue home allopurinol # Hypothyroidism - Continue home levothyroxine # Gastroesophageal Reflux Disease - Continue home omeprazole Gonzalo Powell M.D.
[2022-10-10] MEDS: HYDRALAZINE HCL 20 MG/ML VIAL IV PRN (21:54)
[2022-10-10] MEDS ORDERED: METOPROLOL TARTRATE 5 MG/5 ML INJ IV STA ×2 (22:41→23:18)
[2022-10-10] MEDS ORDERED: METOPROLOL TARTRATE 5 MG/5 ML INJ IV ONE (22:57)
[2022-10-11] MEDS ORDERED: METOPROLOL TARTRATE 5 MG/5 ML INJ IV STA ×4 (00:24→16:50)
[2022-10-11] MEDS: NA CHLORIDE 0.9% 1,000 ML IV SCH (00:36)
[2022-10-11] MEDS: AMIODARONE HCL 150 MG in D5W 100 ML IV STA ×2 (00:55→18:21)
[2022-10-11] MEDS ORDERED: AMIODARONE IN DEXTROSE,ISO-OSM 360 MG/200 ML BAG IV SCH (01:00)
[2022-10-11 03:11] LABS: Albumin 2.1 g/dL (3.4-5.0); Phosphorus 2.2 mg/dL (2.5-4.9)
[2022-10-11] MEDS: LEVOTHYROXINE SOD 0.075 MG TAB PO SCH (05:33)
[2022-10-11] MEDS ORDERED: AMIODARONE HCL 450 MG in D5W 241 ML IV SCH ×2 (07:00→18:00)
[2022-10-11] MEDS: CEFTRIAXONE 1,000 MG in NA CHLORIDE 0.9% 50 ML IVPB SCH ×2 (08:21→21:13)
[2022-10-11] MEDS: AMIODARONE HCL 200 MG TAB PO SCH ×2 (08:22→21:00)
[2022-10-11] MEDS: allopurinoL 100 MG TAB PO SCH (08:22)
[2022-10-11] MEDS: PANTOPRAZOLE 40MG TABLET PO SCH (08:22)
[2022-10-11] MEDS: MEDIHONEY 44 ML TOPICAL TUBE TOP SCH (08:22)
[2022-10-11] MEDS: APIXABAN 2.5 MG TABLET PO SCH ×2 (08:22→21:21)
[2022-10-11] MEDS: INSULIN -REGULAR HUMAN 50 UNIT/0.5 ML ML SQ SCH ×4 (08:24→21:13)
--- NOTE | 2022-10-11 12:18 | P.PN ---
Subjective Date of Service: 10/11/22 Chief Complaint: Left lower extremity cellulitis/wound Overnight, his heart rhythm reverted to atrial fibrillation with rapid ventricular response. His rhythm responded to IV metoprolol. His creatinine continues to improve. He and his are potentially interested in amputation over prolonged antibiotic course, but they would like to speak with Dr. Joon arguello. He denies any chest pain, palpitations, or shortness of breath. Review of Systems 10-point ROS is otherwise unremarkable General: Weakness (generalized) Physical Examination - Vital Signs Temperature: 97.9 F Blood Pressure: 163/78 Pulse: 64 Respirations: 18 Pulse Ox (%): 96 Assessment And Plan - Plan - Physical Exam General: Alert, In no apparent distress, Oriented x3 HEENT: Atraumatic, Mucous membr. moist/pink, Sclerae nonicteric Respiratory: Clear to auscultation bilaterally, Normal air movement Cardiovascular: No edema, No murmurs, irregular heart rate/rhythm Gastrointestinal: Normal bowel sounds, Soft, Non-distended, No tenderness Musculoskeletal: No clubbing Integumentary: No rashes, Other (bilateral feet covered in clean dressing) Neurological: Normal speech, Normal affect # Sepsis likely secondary to Left Lower Extremity Purulent Cellulitis with Methicillin-Sensitive Staphylococcus Aureus Osteomyelitis # Providencia Rettgeri Catheter-Associated Urinary Tract Infection - POA He met sepsis criteria based on temperature > 100.9 F, HR > 90 bpm, and RR > 20 breaths/min, and the suspected source is skin/soft tissue infection. - Consulted Podiatry and spoke with Dr. Dupree - recommendations appreciated - S/P incision and debridement left lateral ankle/leg wound and bone biopsy on 10/07 - Per Dr. Dupree, necrotic tissue was near bone, but no definitive osteomyelitis. He obtained bone biopsy during this procedure - Bone biopsy consistent with acute osteomyelitis - he is going to talk to his family regarding amputation vs prolonged IV antibiotic course - Family is interested in proceeding with amputation, but would like to speak with Dr. Joon arguello - Consulted Infectious Diseases - recommendations appreciated - Sepsis order set was initiated - Initial Lactate was 2.0 - Chest x-ray = "No acute cardiopulmonary disease." - Left lower extremity Doppler = "No DVT in the left lower extremity." - Blood cultures drawn before antibiotics were given - Broad spectrum antibiotics started: Vancomycin + Cefepime - In regards to fluids: - 30 mL/kg of IV fluids was not administered given SBP > 90, MAP > 65, lactic acid < 4 # KDIGO Stage I Acute Kidney Injury on Chronic Kidney Disease Stage III # History of Spinal Stroke complicated by Paraplegia # Chronic Indwelling Valera Catheter # Microscopic Hematuria - Nephrology consulted - recommendations appreciated - Creatinine = 1.96 -> 1.81 -> 2.29 -> 2.56 -> 2.13 -> 1.97 - Urinalysis = 2+ glucose, 3+ blood, 500 leukocyte esterase, > 50 RBCs, >50 WBCs, 3+ protein - CT abdomen/pelvis = "no acute intra-abdominal or pelvic finding. Valera catheter balloon deployed within the prostate. The catheter should be repos itioned." - Renal ultrasound = "unremarkable renal sonogram." - Monitor creatinine and urine output - Renally dose medications # Hyperglycemia in Type II Diabetes Mellitus - Hgb A1c = 9.2 % - Correction scale insulin # Atrial Fibrillation with Rapid Ventricular Response - Cardiology consulted and spoke with Dr. Mo - recommendations appreciated - Continue amiodarone, apixaban - Started PO metoprolol per Dr. Mo's recs # Chronic Compensated Diastolic Heart Failure # Hypertension - Continue home furosemide # Gout - Continue home allopurinol # Hypothyroidism - Continue home levothyroxine # Gastroesophageal Reflux Disease - Continue home omeprazole Gonzalo Powell M.D.
[2022-10-11] MEDS: HYDRALAZINE HCL 25 MG TABLET PO SCH ×2 (14:00→20:48)
--- NOTE | 2022-10-11 14:24 | CON ---
Date of Consultation: 10/08/2022 Reason For Consultation: Atrial fibrillation with rapid ventricular response. History Of Present Illness: This is a 57-year-old male with past medical history of atrial fibrillat ion, congestive heart failure, diabetes, stroke, hypertension, dyslipidemia, chronic kidney disease, presented to the emergency room with fever and lethargy, found to have significant foot infection lik ubaldo with osteomyelitis. He was running in atrial fibrillation with rapid ventricular response. I wa s contacted by the emergency room doctor and started the patient on amiodarone drip. He apparently c onverted to sinus rhythm. Doing very well from the cardiac standpoint. Denies having any chest pain or shortness of breath. I saw him by bedside. Has no specific cardiac complaints. Past Medical History: As outlined above in the HPI. Medications: Refer reconciliation sheet for detailed list. Allergies: METFORMIN, IBUPROFEN. Family History: No premature coronary artery disease or cancer. Social History: He does not smoke or drink. Does not use any drugs. Review of Systems: All systems reviewed and they were negative except as mentioned in the HPI. Physical Examination: Vital Signs: Reviewed. Head and Neck: Pupils are equal, reactive to light. Intact eye movements. No JVD. No cervical lym phadenopathy. Neck: Supple. Thyroid is not enlarged. Lungs: Clear to auscultation bilaterally. No rhonchi, rales, or crackles. No accessory muscle use. Heart: Regular rate and rhythm. No extra sounds. Abdomen: Soft, nontender. Bowel sounds positive. No organomegaly. No masses or hernia. No rigidi ty or rebound. Extremities: No edema, clubbing, cyanosis. Intact pulses. Skin: No rash or nodules. Neuro: Alert, awake. No acute focal deficits appreciated. Lymph Nodes: No cervical lymphadenopathy. Investigations: His BUN is 50, creatinine 2.29. His white blood cell count is 10.9 and hemoglobin 9 .7. Assessment/recommendation: 1.Atrial fibrillation with rapid ventricular response. Loaded with IV amiodarone and converted to s inus rhythm. To switch to oral 200 mg twice a day and Eliquis 5 mg twice a day and I will monitor th e patient with you. 2.Hypertension. Blood pressure is controlled. Continue current management. 3.Chronic kidney disease. BUN and creatinine have been stable. 4.Sepsis due to cellulitis, on antibiotics and he is stabilizing. SR/MODL Voice ID: [id number] Report ID: [id number]
--- NOTE | 2022-10-11 15:57 | PN ---
Date of Progress Note: 10/10/2022 Subjective: Seen at bedside. Continues to be in sinus rhythm. Rate is in the mid 50s and toleratin g anticoagulants very well. Denies having any chest pain or shortness of breath. No fever and sepsi s is under control. Physical Examination: Vital signs: Reviewed. Head and Neck: Pupils are equal, reactive to light. Intact eye movements. No JVD. No cervical lym phadenopathy. Neck: Supple. Thyroid is not enlarged. Lungs: Clear to auscultation bilaterally. No rhonchi, rales, or crackles. No accessory muscle use. Heart: Regular rate and rhythm. No extra sounds. Abdomen: Soft, nontender. Bowel sounds positive. No organomegaly. No masses or hernia. No rigidi ty or rebound. Extremities: No clubbing, cyanosis. Intact pulses. Skin: No rash. Neurologic: Alert, awake. No acute focal deficits appreciated. Investigations: Labs were reviewed. Assessment And Recommendations: 1.Atrial fibrillation. Continues to be in sinus rhythm. Continue amiodarone and if the blood press ure allows to add metoprolol and continue Eliquis. We will plan to cut down amiodarone down the road after introducing metoprolol. 2.Hypertension. Blood pressure is controlled. 3.Cellulitis with resultant sepsis and likely has osteomyelitis of his left foot and on antibiotics. SR/MODL Voice ID: [id number] Report ID: [id number]
--- NOTE | 2022-10-11 16:06 | PN ---
Date of Progress Note: 10/11/2022 Subjective: Seen by bedside. Doing very well. He had a short run of atrial fibrillation with rapid ventricular response last night and gave IV Lopressor 3 rounds and converted back to sinus rhythm an d currently is in sinus rhythm. Review of Systems: No chest pain, shortness of breath, orthopnea, cough. No nausea, vomiting, diarrhea. All other syst ems reviewed are negative. Physical Examination: Vital Signs: Reviewed. Temperature is 97.9, pulse 64, breathing 18, blood pressure 160/78, saturati ng 96% on room air. General: Pleasant, middle-aged male in no apparent distress. Head and Neck: Pupils are equal, reactive to light. Intact eye movements. No JVD. No cervical lym phadenopathy. Neck: Supple. Thyroid is not enlarged. Lungs: Clear to auscultation bilaterally. No rhonchi, rales, or crackles. No accessory muscle use. Heart: Regular rate and rhythm. No extra sounds. Abdomen: Soft, nontender. Bowel sounds positive. No organomegaly. No masses or hernia. No rigidi ty or rebound. Extremities: No edema, clubbing, or cyanosis. Intact pulses. Skin: No rash. Neurologic: Alert, awake. No acute focal deficits appreciated. Lymph nodes: No cervical, axillary, or inguinal lymphadenopathy. Investigations: BUN 40, creatinine 1.97. Assessment And Recommendations: 1.Atrial fibrillation with rapid ventricular response. He had an episode of atrial fibrillation wit h rapid ventricular response last night. Continue p.o. amiodarone and add metoprolol 12.5 mg twice a day as his heart rate is on the low side and we will plan to adjust further if needed. Continue Dora prince. 2.Hypertension. Blood pressure is elevated. Introduce low-dose metoprolol as outlined above and monitor heart rate carefully. 3.Cellulitis of foot, likely osteomyelitis on antibiotics. SR/MODL Voice ID: [id number] Report ID: [id number]
[2022-10-11] MEDS: METOPROLOL TAR 25 MG TAB PO SCH (16:38)
[2022-10-11] MEDS ORDERED: AMIODARONE HCL 150 MG in D5W 100 ML IV STA (17:39)
--- NOTE | 2022-10-11 17:43 | PN ---
Date of Progress Note: 10/11/2022 Subjective: Patient was admitted with acute kidney injury secondary to toxic ATN secondary to osteomyelitis. The patient was treated. The patient's kidney function back close to baseline. Objective: Vital Signs: Blood pressure 163/78, pulse of 64, afebrile. Chest: Clear to auscultation. Heart: S1, S2 regular. Abdomen: Soft, nontender. Extremity: +1 edema. Charcot joint bilateral with the dressing. Laboratory Data: Sodium 136, potassium 4, bicarb 21, BUN 40, creatinine 1.9, GFR of 39, calcium 8.4, phosphorus 2.1, albumin 2.1, corrected calcium is 10, hemoglobin 9. Current Medications: The patient on, it includes: 1. Amiodarone. 2. Metoprolol 25 b.i.d. 3. Pantoprazole. 4. Levothyroxine. 5. IV fluid normal saline 75 per hour. Assessment And Plan: 1. Acute kidney injury secondary to toxic acute tubular necrosis, poor perfusion, acute tubular necrosis recovered, got back to close to baseline, superimposed with the toxic acute tubular necrosis secondary to vancomycin toxicity. Patient close to baseline, normal volume. I am going to go ahead and discontinue IV fluid. We will continue to monitor the patient. 2. Hypertension, not controlled. I am going to go ahead and adjust blood pressure medications. Patient currently on metoprolol. I will go ahead and will add hydralazine and we will follow up. 3. Osteomyelitis, Charcot joint. Continue current antibiotic. Follow up with the primary. Time spent examining the patient [id number], reviewing data, lab and radiology, placing order, discussing the case with the steamship agent including hospitalist and nursing staff more than 35 minutes. ANDREA Voice ID: [id number] Report ID: [id number] AUSTYN
[2022-10-11] MEDS ORDERED: DEXTROSE IV ONE (18:00)
[2022-10-11] MEDS ORDERED: AMIODARONE IV ONE (18:00)
[2022-10-11] MEDS ORDERED: [UNRECOGNIZED DRUG - OTHER] IV ONE (18:00)
[2022-10-11] MEDS ORDERED: AMIODARONE HCL 900 MG in Dextrose 5%-Water 482 ML IV SCH (18:00)
[2022-10-11] MEDS ORDERED: AMIODARONE HCL 150 MG/3 ML INJ IV ONE (18:10)
[2022-10-11] MEDS ORDERED: AMIODARONE IN DEXTROSE,ISO-OSM 360 MG/200 ML BAG IV ONE (18:10)
[2022-10-11] MEDS ORDERED: D5W 100 ML IV ONE (18:14)
--- NOTE | 2022-10-11 21:03 | PN ---
Date of Progress Note: 10/09/2022 Subjective: Seen by bedside. Doing clinically well. Still in sinus rhythm. No new complaints. Review of Systems: No chest pain, shortness of breath, orthopnea, or cough. No nausea, vomiting, or diarrhea. All othe r systems were reviewed, they were negative. Objective: Vital Signs: Reviewed. Head and Neck: Pupils are equal, reactive to light. Intact eye movements. No JVD. No cervical lym phadenopathy. Neck is supple. Thyroid is not enlarged. Lungs: Clear to auscultation bilaterally. No rhonchi, rales, or crackles. No accessory muscle use. Heart: Regular rate and rhythm. No extra sounds. Abdomen: Soft, nontender. Bowel sounds positive. No organomegaly. No masses or hernia. No rigidi ty or rebound. Extremities: No clubbing, cyanosis. Intact pulses. Skin: No rash. Neurologic: Alert, awake. No acute focal deficits appreciated. Investigations: Labs were reviewed. Assessment And Recommendations: 1.Atrial fibrillation. Continues to be in sinus rhythm. Continue amiodarone 200 mg twice a day and Eliquis 5 mg twice a day, down the road we will plan to introduce beta-diana and minimize the amio darone as he is young and he is going to need long-term treatment. 2.Hypertension. Blood pressure is controlled. 3.Chronic kidney disease, stable. 4.Cellulitis with resultant sepsis. Appears to be stable and continue current antibiotics. SR/MODL Voice ID: [id number] Report ID: [id number]
[2022-10-11] MEDS ORDERED: DOCUSATE NA 100 MG CAP PO ONE (21:04)
--- NOTE | 2022-10-11 23:11 | RAD REPORT ---
EXAM DESCRIPTION: R CHEST 1 VIEW CLINICAL HISTORY: Ough, afib rvr TECHNIQUE: Single view chest COMPARISON: None FINDINGS: Low lung volume exam. Trachea midline. Heart size top normal No pneumothorax or sizable effusion. Prominent perihilar vessels. Exploratory crowding versus mild ed lalo. No consolidation. No acute osseous abnormality IMPRESSION: Low lung volume exam with perihilar prominence. Expiratory crowding versus mild edema Electronically signed by: Faustino Austin MD 10/10/2022 11:35 PM CDT Due to temporary technical issues with the PACS/Fluency reporting system, reports are being signed by the in house radiologists without review as a courtesy to insure prompt reporting. The interpreting radiologist is fully responsible for the content of the report.
[2022-10-12 03:50] LABS: Hematocrit 28.2 % (39.6-49.0)
[2022-10-12 04:08] LABS: Albumin 2.2 g/dL (3.4-5.0); Magnesium 1.6 mg/dL (1.6-2.4); Phosphorus 3.1 mg/dL (2.5-4.9); Potassium 4.4 mEq/L (3.5-5.1)
[2022-10-12] MEDS: LEVOTHYROXINE SOD 0.075 MG TAB PO SCH (05:44)
[2022-10-12] MEDS: METOPROLOL TAR 25 MG TAB PO SCH ×2 (05:48→17:30)
[2022-10-12] MEDS: APIXABAN 2.5 MG TABLET PO SCH (08:45)
[2022-10-12] MEDS: HYDRALAZINE HCL 25 MG TABLET PO SCH ×3 (08:45→21:10)
[2022-10-12] MEDS: CEFTRIAXONE 1,000 MG in NA CHLORIDE 0.9% 50 ML IVPB SCH ×2 (08:46→21:12)
[2022-10-12] MEDS: allopurinoL 100 MG TAB PO SCH (08:46)
[2022-10-12] MEDS: PANTOPRAZOLE 40MG TABLET PO SCH (08:46)
[2022-10-12] MEDS: Mupirocin NASAL 2 APPL/1 GM TUBE NAS SCH ×2 (08:47→21:11)
[2022-10-12] MEDS: MEDIHONEY 44 ML TOPICAL TUBE TOP SCH (08:49)
[2022-10-12] MEDS: INSULIN -REGULAR HUMAN 50 UNIT/0.5 ML ML SQ SCH ×4 (09:03→22:02)
--- NOTE | 2022-10-12 09:48 | CON ---
Date of Consultation: 10/11/2022 Reason For Consultation: Evaluate patient for amputation of lower extremities. History Of Present Illness: Patient is a 57-year-old gentleman with multiple medical problems and pa raplegia, who has chronic pressure ulcers, which were being managed by Dr. Dupree. He underwent debri deloris of the left leg last and he has osteo and there was some concern about IV antibiotic making his kidney functions worse. One option was to do the amputation. Patient states that if he i s going to have one leg amputated, he would rather have both legs amputated. He is paraplegic. He i s awake and alert. No acute distress. No fever or chills. He did have fever when he was admitted. No sore throat, runny nose, cough, headaches, or dizziness. No chest pain. No fever or chills curr ently. Review of Systems: Otherwise unremarkable. Past Medical History: Type 2 diabetes; hypertension; hyperlipidemia; hypothyroidism; paraplegia; cor onary artery disease; chronic kidney disease, stage 3; atrial fibrillation, on chronic anticoagulatio n; Crohn disease. Past Surgical History: Spinal surgery, hydrocele, fistula repair, right hand surgery, and recent christina ridement. Allergies: INCLUDE METFORMIN AND IBUPROFEN. Social History: Patient currently does not smoke or drink. Family History: Noncontributory. Physical Examination: Vital Signs: Stable. He is afebrile. General: He is awake, alert, and oriented x3. Head and Neck: No masses. Chest: Clear. Heart: S1, S2. Abdomen: Soft. Extremities: Flaccid paralysis. Palpable dorsalis pedis and posterior tibial pulses. Wounds on the lower extremity, left lateral lower leg shows good granulation tissue with minimal fibrin and perhap s the fascia or slight exposure of the tendon. No surrounding erythema, warmth, or edema. On the ri t lateral and posterior heel wounds, there are stage III ulcers as well. No surrounding erythema, warmth, or edema with moderate amount of fibrin present. Patient is being treated by wound VAC with MediHoney on the left leg and MediHoney on the right leg. Laboratory Data: Shows a white count to be normal. H and H are around 9.3 and 28.2. INR is 1.23. Chemistry reviewed. BUN is 34, creatinine 1.87, sugar is elevated. Albumin is 2.2. Patient had a D oppler study done, which showed no significant peripheral vascular disease, no high-grade stenosis or occlusion. X-ray last week Thursday revealed, no bony destructive lesions noted. Ulceration noted. Assessment: Nonhealing pressure wounds on bilateral lower extremity, infection with paralysis and mu ltiple medical problems. I would recommend IV antibiotics per the medical team. At this time, I do not think patient needs amputation of the le g. Medical treatment has not been optimized. Once it is optimized and he fails that treatment, then consideration should be given for amputation. Patient did have a biopsy of the bone done and recent debridement and it shows acute osteomyelitis and the wound is growing out Staphylococcus aureus. So overall, I think IV antibiotics and aggressive local wound care should be attempted first prior to a ny consideration regarding amputation. Plan of care discussed with the patient's and Dr. villa. /MODL Voice ID: [id number] Report ID: [id number]
[2022-10-12] MEDS ORDERED: AMIODARONE HCL 900 MG in Dextrose 5%-Water 482 ML IV SCH (11:00)
--- NOTE | 2022-10-12 11:50 | RAD REPORT ---
EXAM DESCRIPTION: RAD - Chest Single View - 10/12/2022 11:27 am CLINICAL HISTORY: Device placement PICC line placement IMPRESSION: PICC line with its tip in the superior vena cava
--- NOTE | 2022-10-12 11:54 | PN ---
Date of Progress Note: 10/12/2022 Subjective: The patient was admitted to the hospital with acute kidney injury, toxic ATN secondary to osteomyelitis secondary to foot infection. The patient was started on hydration. The patient had also elevation on vancomycin. So, vancomycin was discontinue, placed on ceftriaxone as the patient has MSSA. The patient planned for PICC line. Physical Examination: Vital Signs: When I saw the patient; blood pressure 171/83, pulse of 62, afebrile. Chest: Clear to auscultation. Heart: S1, S2. Regular. Abdomen: Soft, nontender. Valera. Extremities: Dressing on the both legs. Laboratory Data: Hemoglobin 9.3. Sodium 137, potassium 4.4, bicarb 21, BUN 34, creatinine down to 1.8, GFR of 42, calcium 8.4, phosphorus 3.1, magnesium 1.6, albumin 2.2, corrected calcium is 10. Current Medications: The patient on his include; 1. Ceftriaxone. 2. Eliquis. 3. Amiodarone. 4. Metoprolol 25 b.i.d. 5. Pantoprazole. 6. Docusate. Assessment And Plan: 1. Acute kidney injury secondary to toxic ATN, poor perfusion, ATN, continued to recover, back to baseline. We will continue to monitor off IV fluid. 2. Hypertension. We just added hydralazine yesterday. We will follow up response. 3. Osteomyelitis, methicillin-susceptible Staphylococcus aureus. Continue current antibiotic. We will follow up with primary. Dose appropriate. Follow up with Surgery. 4. Diabetes as by primary. Time spent examining the patient [id number], reviewing data, lab and radiology, placing order, discussing the case with the field marketing team leader including hospitalist and nursing staff more than 35 minutes. ANDREA Voice ID: [id number] Report ID: [id number] AUSTYN
--- NOTE | 2022-10-12 15:24 | P.PN ---
Subjective Date of Service: 10/12/22 Primary Care Provider: +9 Chief Complaint: Left lower extremity cellulitis/wound Overnight, his heart rhythm reverted to atrial fibrillation with rapid ventricular response. He was restarted on an amiodarone drip. He was evaluated by Dr. Badillo this morning, who recommended against amputation. He denies any chest pain, palpitations, or shortness of breath. Review of Systems 10-point ROS is otherwise unremarkable General: Weakness (generalized) Physical Examination - Vital Signs Temperature: 97.9 F Blood Pressure: 169/83 Pulse: 64 Respirations: 16 Pulse Ox (%): 98 - Studies Microbiology Data (last 24 hrs): 10/06/22 18:20 Blood - Blood Aerobic Blood Culture - Final No growth in 5 days. 10/06/22 18:20 Blood - Blood Anaerobic Blood Culture - Final No growth in 5 days. 10/06/22 16:16 Blood - Blood Aerobic Blood Culture - Final No growth in 5 days. 10/06/22 16:16 Blood - Blood Anaerobic Blood Culture - Final No growth in 5 days. Assessment And Plan - Plan - Physical Exam General: Alert, In no apparent distress, Oriented x3 HEENT: Atraumatic, Mucous membr. moist/pink, Sclerae nonicteric Respiratory: Clear to auscultation bilaterally, Normal air movement Cardiovascular: No edema, No murmurs, irregular heart rate/rhythm Gastrointestinal: Normal bowel sounds, Soft, Non-distended, No tenderness Musculoskeletal: No clubbing Integumentary: No rashes, Other (bilateral feet covered in clean dressing) Neurological: Normal speech, Normal affect # Sepsis likely secondary to Left Lower Extremity Purulent Cellulitis with Methicillin-Sensitive Staphylococcus Aureus Osteomyelitis # Providencia Rettgeri Catheter-Associated Urinary Tract Infection - POA He met sepsis criteria based on temperature > 100.9 F, HR > 90 bpm, and RR > 20 breaths/min, and the suspected source is skin/soft tissue infection. - Consulted Podiatry and spoke with Dr. Dupree - recommendations appreciated - S/P incision and debridement left lateral ankle/leg wound and bone biopsy on 10/07 - Consulted Infectious Diseases - recommendations appreciated - General Surgery consulted and spoke with Dr. Badillo - recommendations appreciated - He recommends against amputation. 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 Valera esequiel ter balloon deployed within the prostate. The catheter should be repositioned." - Renal ultrasound = "unremarkable renal sonogram." - Monitor creatinine and urine output - Renally dose medications # Hyperglycemia in Type II Diabetes Mellitus - Hgb A1c = 9.2 % - Correction scale insulin # Atrial Fibrillation with Rapid Ventricular Response - Cardiology consulted and spoke with Dr. Mo - recommendations appreciated - Continue amiodarone, metoprolol, apixaban # Chronic Compensated Diastolic Heart Failure # Hypertension - Continue home furosemide # Gout - Continue home allopurinol # Hypothyroidism - Continue home levothyroxine # Gastroesophageal Reflux Disease - Continue home omeprazole Gonzalo Powell M.D.
[2022-10-12] MEDS ORDERED: GOLYTELY 4000 ML ONE (17:36)
[2022-10-12] MEDS: APIXABAN 5 MG TABLET PO SCH (21:10)
[2022-10-13] MEDS: HYDRALAZINE HCL 20 MG/ML VIAL IV PRN (01:33)
[2022-10-13 05:15] LABS: Albumin 2.3 g/dL (3.4-5.0); Phosphorus 2.4 mg/dL (2.5-4.9); Potassium 4.3 mEq/L (3.5-5.1)
[2022-10-13] MEDS: LEVOTHYROXINE SOD 0.075 MG TAB PO SCH (06:19)
[2022-10-13] MEDS: METOPROLOL TAR 25 MG TAB PO SCH ×2 (06:19→17:03)
[2022-10-13] MEDS: MEDIHONEY 44 ML TOPICAL TUBE TOP SCH ×2 (08:38→09:00)
[2022-10-13] MEDS: APIXABAN 5 MG TABLET PO SCH ×2 (08:39→21:26)
[2022-10-13] MEDS: Mupirocin NASAL 2 APPL/1 GM TUBE NAS SCH ×2 (08:39→21:27)
[2022-10-13] MEDS: HYDRALAZINE HCL 25 MG TABLET PO SCH ×3 (08:40→21:26)
[2022-10-13] MEDS: allopurinoL 100 MG TAB PO SCH (08:40)
[2022-10-13] MEDS: INSULIN -REGULAR HUMAN 50 UNIT/0.5 ML ML SQ SCH ×4 (08:40→21:27)
[2022-10-13] MEDS: CEFTRIAXONE 1,000 MG in NA CHLORIDE 0.9% 50 ML IVPB SCH ×2 (08:40→21:27)
[2022-10-13] MEDS: PANTOPRAZOLE 40MG TABLET PO SCH (08:40)
--- NOTE | 2022-10-13 10:02 | P.PN ---
Subjective Date of Service: 10/13/22 Primary Care Provider: +9 Chief Complaint: Left lower extremity cellulitis/wound Subjective: No new changes, Improving Review of Systems 10-point ROS is otherwise unremarkable Physical Examination - Vital Signs Temperature: 97.9 F Blood Pressure: 161/83 Pulse: 62 Respirations: 18 Pulse Ox (%): 95 - Physical Exam General: Alert, In no apparent distress, Oriented x3 Cardiovascular: No edema, Normal pulses Capillary refill: <2 Seconds Musculoskeletal: No clubbing, No swelling, No contractures, No erythema, No tenderness, No warmth Integumentary: Diabetic ulcer (wound left lateral ankle not visualized due to wound vac. Wound vac working properly) Neurological: Abnormal sensation Assessment And Plan - Current Problems (Diagnosis) (1) Non-pressure ulcer of left lower extremity with necrosis of muscle Current Visit: Yes Status: Acute (2) Abscess of left lower leg Current Visit: Yes Status: Acute (3) DM2 (diabetes mellitus, type 2) Onset Date: 11/25/16 Current Visit: No Status: Chronic Plan: Continue wound vac Continue iv antibiotics per infectious disease Due to patient's comorbidities, need for iv antibiotics and wound vac patient would benefit from placement in LTAC Bone biopsy positive for osteomyelitis Qualifiers: Diabetes mellitus termite technician insulin use: with termite technician use Diabetes mellitus complication status: with hyperglycemia Qualified Code(s): E11.65 - Type 2 diabetes mellitus with hyperglycemia; Z79.4 - nursing home (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 (4) Diabetic ulcer of right heel Current Visit: No Status: Resolved Physician Review: Patient Assessed, Agree with Above Assessment and Plan
--- NOTE | 2022-10-13 10:04 | P.PN ---
Date of Service: 10/13/22 Chief Complaint: Left lower extremity cellulitis/wound Subjective: Patient resting comfortably in bed. at bedside. No acute events reported overnight. Denies any new or worsening complaints. Physical Examination Temp Pulse Resp BP Pulse Ox 97.9 F 62 18 161/83 H 95 10/13/22 10:01 10/13/22 10:01 10/13/22 10:01 10/13/22 10:01 10/13/22 10:01 General: Alert, In no apparent distress, Oriented x3 HEENT: Atraumatic, Normocephalic Neck: Supple, JVD not distended Respiratory: Clear to auscultation bilaterally, Normal air movement Cardiovascular: Regular rate/rhythm. LLE edema present. Gastrointestinal: Normoactive bowel sounds. Distended. Musculoskeletal: No clubbing. Paraplegic Integumentary: Pressure ulcer right heel, right lateral ankle, left lateral ankle. Dressing clean dry and intact. Wound vac left ankle wound. Neurological: Normal speech, Normal tone, Normal affect Urinary: chronic myers catheter. Studies Laboratory Data - Reviewed Microbiology Data - Reviewed COVID Negative Influenza A&B Negative Imagings Data: - CT Abdomen/Pelvis 10/06: " No acute intra-abdominal or pelvic finding" - XR Chest 10/06: "No acute cardiopulmonary disease." - Venous study LLE 10/06: "No DVT in the left lower extremity." Medications List: Reviewed Assessment and Plan Problem List Cellulitis LLE Diabetes Mellitus type II CKD III Atrial Fibrillation Hypertension Hypothyroidism Hyperlipidemia Chronic Diastolic Congestive Heart Failure Paraplegia Gout Anemia Cellulitis of Left Lower Extremity/Ankle with chronic wound infection Osteomyelitis of LLE - Venous study LLE 10/06: "No DVT in the left lower extremity." - Patient sees podiatry Dr. Dupree as outpatient for foot wound management/wound care who is also consulted. - Left Lower Leg wound culture 10/06: Staphylococcus aureus - Right ankle wound culture 10/07: Staphylococcus aureus - Recent history of MDR infection of RLE and LLE wounds on 08/17/2022: Methicillin-Resistant Staphylococcus aureus, Citrobacter freundii and Enterobacter cloacae - Previously on Cefepime and Vancomycin (10/07-10/10) - Left distal fibula bone, biopsy 10/07: "Consistent with acute osteomyelitis, recommend clinical and radiographic correlation" Catheter Associated Urinary Tract Infection - Chronic myers catheter for ~2 years - Urine culture 10/06: Providencia rettgeri - On Rocephin Leukocytosis resolved. Afebrile. Blood cultures 10/06: No growth to date Afib: cardiology following CKD: nephrology following Recommendations - Left distal fibula bone biopsy results consistent with acute osteomyelitis. Wound cultures growing MSSA. - Currently on Rocephin. Recommend switching to Cefazolin IV to complete 6 weeks of IV antibiotics via PICC line. - UTI: Urine growing Providencia, sensitive to Rocephin (10/10-). Continue antibiotic for 7 days. On day 4 of 7. - Renally dose medications. - s/p left ankle debridement on 10/07. Continue current wound care orders per Dr. Dupree - Strict blood glucose control - Pressure offloading measures Case discussed with Vent[place] Bobby
[2022-10-13] MEDS ORDERED: LACTULOSE 20 GM/30 ML UCUP PO ONE (10:12)
--- NOTE | 2022-10-13 13:22 | EKG ---
Test Date: 2022-10-07 Test Time: 11:16:31 Contact Lens Fitter: TRAE MEASUREMENT RESULTS: Intervals: Rate: 172 AL: QRSD: 104 QT: 300 QTc: 507 [place]: P: AL: QRS: 125 T: -22 INTERPRETIVE STATEMENTS: Atrial fibrillation with RVR. Right axis deviation Incomplete right bundle branch block Right ventricular hypertrophy with repolarization abnormality T wave abnormality, consider inferior ischemia Abnormal ECG Electronically Signed On 10-13-22 13:14:21 CDT by Kofi Mo
--- NOTE | 2022-10-13 16:41 | P.PN ---
Subjective Date of Service: 10/13/22 Chief Complaint: Left lower extremity cellulitis/wound No acute events overnight. He remains on amiodarone drip. Plan to transition to PO today. PICC line was placed yeterday. He is pending placement to SNF. He denies any chest pain, palpitations, or shortness of breath. Review of Systems 10-point ROS is otherwise unremarkable General: Weakness (generalized) Physical Examination - Vital Signs Temperature: 97.9 F Blood Pressure: 171/87 Pulse: 63 Respirations: 16 Pulse Ox (%): 96 Assessment And Plan - Plan - Physical Exam General: Alert, In no apparent distress, Oriented x3 HEENT: Atraumatic, Mucous membr. moist/pink, Sclerae nonicteric Respiratory: Clear to auscultation bilaterally, Normal air movement Cardiovascular: No edema, No murmurs, irregular heart rate/rhythm Gastrointestinal: Normal bowel sounds, Soft, Non-distended, No tenderness Musculoskeletal: No clubbing Integumentary: No rashes, Other (bilateral feet covered in clean dressing) Neurological: Normal speech, Normal affect # Sepsis likely secondary to Left Lower Extremity Purulent Cellulitis with Methicillin-Sensitive Staphylococcus Aureus Osteomyelitis # Providencia Rettgeri Catheter-Associated Urinary Tract Infection - POA He met sepsis criteria based on temperature > 100.9 F, HR > 90 bpm, and RR > 20 breaths/min, and the suspected source is skin/soft tissue infection. - Consulted Podiatry and spoke with Dr. Dupree - recommendations appreciated - S/P incision and debridement left lateral ankle/leg wound and bone biopsy on 10/07 - Consulted Infectious Diseases and spoke with JEFF Arriaza - recommendations appreciated - Recommends 6 weeks of IV antibiotics cefazolin, once he completes his treatment course for the Providencia infection - General Surgery consulted and spoke with Dr. Badillo - recommendations appreciated - He recommends against amputation. PICC line placed yesterday - Sepsis order set was initiated - Initial Lactate was 2.0 - Chest x-ray = "No acute cardiopulmonary disease." - Left lower extremity Doppler = "No DVT in the left lower extremity." - Blood cultures drawn before antibiotics were given - Broad spectrum antibiotics started: Ceftriaxone - In regards to fluids: - 30 mL/kg of IV fluids was not administered given SBP > 90, MAP > 65, lactic acid < 4 # KDIGO Stage I Acute Kidney Injury on Chronic Kidney Disease Stage III # History of Spinal Stroke complicated by Paraplegia # Chronic Indwelling Valera Catheter # Microscopic Hematuria - Nephrology consulted - recommendations appreciated - Creatinine = 1.96 -> 1.81 -> 2.29 -> 2.56 -> 2.13 -> 1.97 -> 1.87 -> 1.91 - Urinalysis = 2+ glucose, 3+ blood, 500 leukocyte esterase, > 50 RBCs, >50 WBCs, 3+ protein - CT abdomen/pelvis = "no acute intra-abdominal or pelvic finding. Valera catheter balloon deployed within the prostate. The catheter should be repositioned." - Renal ultrasound = "unremarkable renal sonogram." - Monitor creatinine and urine output - Renally dose medications # Hyperglycemia in Type II Diabetes Mellitus - Hgb A1c = 9.2 % - Correction scale insulin # Atrial Fibrillation with Rapid Ventricular Response - Cardiology consulted and spoke with Dr. Mo - recommendations appreciated - Continue amiodarone, metoprolol, apixaban - Transition from IV to PO amiodarone # Chronic Compensated Diastolic Heart Failure # Hypertension - Continue home furosemide # Gout - Continue home allopurinol # Hypothyroidism - Continue home levothyroxine # Gastroesophageal Reflux Disease - Continue home omeprazole Gonzalo Powell M.D.
[2022-10-13] MEDS: AMIODARONE HCL 200 MG TAB PO SCH (21:27)
--- NOTE | 2022-10-13 22:09 | P.PN ---
Date of Service: 10/14/22 Subjective: Chart has been reviewed. Events of the last 24 hours noted. Continue with antibiotic therapy. Monitor renal function closely. Continue with medication for cardiac disease. Physical Exam: Vitals: Reviewed GEN: Alert, oriented, NAD CV: Regular rate & rhythm, no edema Pulm: Respirations are clear bilaterally ABD: Soft, nontender, nondistended MSK: Diffuse joint tenderness and muscle pain Integumentary: Bilateral foot wounds; dressing C/D/I Neuro: Lower extremity weakness; right arm weakness Problem List: 1. Sepsis likely secondary to Left Lower Extremity Purulent Cellulitis with Staphylococcus Aureus Osteomyelitis 2. Providencia Rettgeri Catheter-Associated UTI- POA 3. CROW on CKD 3 4. History of Spinal Stroke complicated by Paraplegia 5. Chronic Indwelling Valera Catheter 6. Microscopic Hematuria 7. Type II Diabetes Mellitus 8. Atrial Fibrillation with RVR 9. Chronic Compensated Diastolic CHF 10. Hypertension 11. Gout 12. Hypothyroidism 13. GERD PLAN PLAN: 1. Continue with IV antibiotic 2. Continue with local wound care 3. Wound care consultation/surgical consultation appreciated 4. Gentle IV hydration 5. Monitor CBC 6. Strict blood sugar monitoring 7. Pain control 8. Continue with wound care 9. Awaiting for placement 10. GI and DVT prophylaxis
--- NOTE | 2022-10-14 03:12 | PN ---
Date of Progress Note: 10/13/2022 Subjective: The patient was admitted to the hospital because of acute kidney injury. He has multipl e medical problems including osteomyelitis secondary to foot infection. The patient was started on I V fluids for acute kidney injury and vancomycin level was found to be elevated. The patient is curre ntly on ceftriaxone for MSSA infection. The patient is to have central line placed. Vancomycin was stopped. Review of Systems: Denies chest pain, palpitation. Physical Examination: Lungs: Clear to auscultation bilaterally. Heart: S1-S2. Abdomen: Soft. Extremities: Dressing in both legs. Impression And Plan: 1.Acute kidney injury secondary to ATN due to renal hypoperfusion in setting of infection. 2.Hypertension. Currently, the patient is on hydralazine and this was added to control hypertension . 3.Osteomyelitis. Continue ceftriaxone. Monitor vancomycin level. 4.Diabetes mellitus with renal manifestation. Avoid metformin. Continue insulin. EB/MODL Voice ID: [id number] Report ID: [id number]
[2022-10-14] MEDS: LEVOTHYROXINE SOD 0.075 MG TAB PO SCH (05:46)
[2022-10-14] MEDS: METOPROLOL TAR 25 MG TAB PO SCH ×2 (05:46→16:42)
[2022-10-14 06:17] LABS: Magnesium 1.6 mg/dL (1.6-2.4); Phosphorus 2.5 mg/dL (2.5-4.9); Potassium 4.1 mEq/L (3.5-5.1)
[2022-10-14] MEDS: INSULIN -REGULAR HUMAN 50 UNIT/0.5 ML ML SQ SCH ×4 (07:30→21:22)
[2022-10-14] MEDS: MEDIHONEY 44 ML TOPICAL TUBE TOP SCH (07:58)
[2022-10-14] MEDS: AMIODARONE HCL 200 MG TAB PO SCH ×2 (07:59→21:03)
[2022-10-14] MEDS: CEFTRIAXONE 1,000 MG in NA CHLORIDE 0.9% 50 ML IVPB SCH ×2 (07:59→21:02)
[2022-10-14] MEDS: HYDRALAZINE HCL 25 MG TABLET PO SCH ×3 (07:59→21:03)
[2022-10-14] MEDS: allopurinoL 100 MG TAB PO SCH (08:00)
[2022-10-14] MEDS: PANTOPRAZOLE 40MG TABLET PO SCH (08:00)
[2022-10-14] MEDS: APIXABAN 5 MG TABLET PO SCH ×2 (08:00→21:03)
--- NOTE | 2022-10-14 08:01 | P.PN ---
Subjective Date of Service: 10/14/22 Primary Care Provider: +9 Chief Complaint: Left lower extremity cellulitis/wound Subjective: Improving, Doing well Review of Systems 10-point ROS is otherwise unremarkable Physical Examination - Vital Signs Temperature: 97.8 F Blood Pressure: 134/68 Pulse: 58 Respirations: 18 Pulse Ox (%): 96 - Physical Exam General: Alert, In no apparent distress, Oriented x3 Cardiovascular: No edema, Normal pulses Capillary refill: <2 Seconds Musculoskeletal: No clubbing, No swelling, No contractures, No erythema, No tenderness, No warmth Integumentary: Diabetic ulcer (ulceration lateral left ankle is improving with large granulation, decreased depth, no signs of infection. Dimensions of [id number]) Neurological: Abnormal sensation Assessment And Plan - Current Problems (Diagnosis) (1) Non-pressure ulcer of left lower extremity with necrosis of muscle Current Visit: Yes Status: Acute (2) Abscess of left lower leg Current Visit: Yes Status: Acute (3) DM2 (diabetes mellitus, type 2) Onset Date: 11/25/16 Current Visit: No Status: Chronic Plan: Continue wound vac Continue iv antibiotics per infectious disease Due to patient's comorbidities, need for iv antibiotics and wound vac patient would benefit from placement in LTAC Bone biopsy positive for osteomyelitis Qualifiers: Diabetes mellitus long term care pharmacist insulin use: with long term care pharmacist use Diabetes mellitus complication status: with hyperglycemia Qualified Code(s): E11.65 - Type 2 diabetes mellitus with hyperglycemia; Z79.4 - snf (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 (4) Diabetic ulcer of right heel Current Visit: No Status: Resolved Physician Review: Patient Assessed, Agree with Above Assessment and Plan
[2022-10-14] MEDS: Mupirocin NASAL 2 APPL/1 GM TUBE NAS SCH ×2 (08:04→21:03)
--- NOTE | 2022-10-14 09:22 | P.PN ---
Date of Service: 10/14/22 Chief Complaint: Left lower extremity cellulitis/wound Subjective: Patient seen and examined at bedside. Reports constipation and worsening LLE edema. at bedside. Physical Examination Temp Pulse Resp BP Pulse Ox 97.8 F 58 18 134/68 96 10/14/22 08:00 10/14/22 08:00 10/14/22 08:00 10/14/22 08:00 10/14/22 08:00 General: Alert, In no apparent distress, Oriented x3 HEENT: Atraumatic, Normocephalic Neck: Supple, JVD not distended Respiratory: Clear to auscultation bilaterally, Normal air movement Cardiovascular: Regular rate/rhythm. LLE edema present. Gastrointestinal: Normoactive bowel sounds. Distended abdomen. Musculoskeletal: No clubbing. Paraplegic Integumentary: Pressure ulcer right heel, right lateral ankle, left lateral ankle. Dressing clean dry and intact. Wound vac to left lower extremity wound. Neurological: Normal speech, Normal tone, Normal affect Urinary: chronic myers catheter. Studies Laboratory Data - Reviewed Microbiology Data - Reviewed COVID Negative Influenza A&B Negative Imagings Data: - CT Abdomen/Pelvis 10/06: " No acute intra-abdominal or pelvic finding" - XR Chest 10/06: "No acute cardiopulmonary disease." - Venous study LLE 10/06: "No DVT in the left lower extremity." Medications List: Reviewed Assessment and Plan Problem List Cellulitis LLE Diabetes Mellitus type II CKD III Atrial Fibrillation Hypertension Hypothyroidism Hyperlipidemia Chronic Diastolic Congestive Heart Failure Paraplegia Gout Anemia Constipation Cellulitis of Left Lower Extremity/Ankle with chronic wound infection Osteomyelitis of LLE - Venous study LLE 10/06: "No DVT in the left lower extremity." - Patient sees podiatry Dr. Dupree as outpatient for foot wound management/wound care who is also consulted. - Left Lower Leg wound culture 10/06: Staphylococcus aureus - Right ankle wound culture 10/07: Staphylococcus aureus - Recent history of MDR infection of RLE and LLE wounds on 08/17/2022: Methicil guerda-Resistant Staphylococcus aureus, Citrobacter freundii and Enterobacter cloacae - Previously on Cefepime and Vancomycin (10/07-10/10) - Left distal fibula bone, biopsy 10/07: "Consistent with acute osteomyelitis, recommend clinical and radiographic correlation" Catheter Associated Urinary Tract Infection - Chronic myers catheter for ~2 years - Urine culture 10/06: Providencia rettgeri - On Rocephin Leukocytosis resolved. Afebrile. Blood cultures 10/06: No growth to date Afib: cardiology following CKD: nephrology following Recommendations - Left distal fibula bone biopsy results consistent with acute osteomyelitis. Wound cultures growing MSSA. - Currently on Rocephin. Recommend switching to Cefazolin IV to complete 6 weeks of IV antibiotics via PICC line. - UTI: Urine growing Providencia, sensitive to Rocephin (10/10-). Continue antibiotic for 7 days. On day 4 of 7. - Renally dose medications. Nephrology on case. - Continue current wound care orders per Dr. Dupree - Strict blood glucose control - Pressure offloading measures Case discussed with Abdiaziz Bobby.
[2022-10-14] MEDS ORDERED: MAGNESIUM SULFATE 1 gm IVPB 1 GM/100 ML BAG IV ONE (11:21)
--- NOTE | 2022-10-14 12:12 | PN ---
Date of Progress Note: 10/14/2022 Subjective: The patient was admitted with osteomyelitis. The patient was found to have MSSA, starte d on treatment. The patient had acute kidney injury secondary to toxic ATN, poor perfusion, ATN and toxicity secondary to vanc. Kidney function recovered, back to baseline. Physical Examination: Vital Signs: Blood pressure 134/68, pulse of 58, afebrile. The patient had good urine output of 150 0. Chest: Clear to auscultation. Heart: S1, S2. Regular. Abdomen: Soft, nontender. Extremity: Bilateral feet dressing. The patient has paraplegia. Laboratory Data: Hemoglobin 9.3. Sodium 137, potassium 4.1, bicarb 26, BUN 31, creatinine 1.6, GFR of 50, calcium 8.6, phosphorus 2.5, magnesium 1.6. Current Medications: The patient on include; 1.Ceftriaxone. 2.Eliquis. 3.Amiodarone 200. 4.Hydralazine 25 t.i.d. 5.Metoprolol 25 b.i.d. 6.Lactulose. 7.Pantoprazole. 8.Levothyroxine. Assessment And Plan: 1.Acute kidney injury secondary to toxic ATN, poor perfusion, ATN, recovered, resolved. 2.Hyponatremia, depletional, resolved. 3.Hypertension, controlled, optimal. Continue current treatment. 4.Osteomyelitis. Continue current antibiotic. 5.Hypomagnesemia. We will supplement. 6.Diabetes as by primary. EUN/SNOW Voice ID: [id number] Report ID: [id number]
[2022-10-14] MEDS ORDERED: BISACODYL E.C. 5 MG TAB PO ONE (16:33)
[2022-10-14] MEDS ORDERED: MAGNESIUM CITRATE 300 ML BOT PO SCH (17:00)
[2022-10-14] MEDS: MAGNESIUM HYDROXIDE 8% 30 ML PO PRN (21:25)
[2022-10-15] MEDS: METOPROLOL TAR 25 MG TAB PO SCH ×2 (05:37→17:10)
[2022-10-15] MEDS: LEVOTHYROXINE SOD 0.075 MG TAB PO SCH (06:34)
[2022-10-15] MEDS: INSULIN -REGULAR HUMAN 50 UNIT/0.5 ML ML SQ SCH ×5 (07:30→19:57)
[2022-10-15] MEDS: HYDRALAZINE HCL 25 MG TABLET PO SCH ×3 (08:27→19:58)
[2022-10-15] MEDS: PANTOPRAZOLE 40MG TABLET PO SCH (08:27)
[2022-10-15] MEDS: APIXABAN 5 MG TABLET PO SCH ×2 (08:27→19:58)
[2022-10-15] MEDS: AMIODARONE HCL 200 MG TAB PO SCH ×2 (08:27→19:58)
[2022-10-15] MEDS: allopurinoL 100 MG TAB PO SCH (08:27)
[2022-10-15] MEDS: CEFTRIAXONE 1,000 MG in NA CHLORIDE 0.9% 50 ML IVPB SCH ×2 (08:28→19:58)
[2022-10-15] MEDS: Mupirocin NASAL 2 APPL/1 GM TUBE NAS SCH ×2 (08:29→19:58)
--- NOTE | 2022-10-15 08:58 | RAD REPORT ---
EXAM DESCRIPTION: RAD - Abdomen 1 View (KUB) - 10/15/2022 8:18 am CLINICAL HISTORY: abdominal pain, constipation COMPARISON: No comparisons TECHNIQUE: Single AP view of the abdomen. FINDINGS: Nonobstructive bowel gas pattern. No air-fluid levels, free air, or pneumatosis. No suspic ious calcifications. No significant bony abnormality. IMPRESSION: Negative two view abdomen examination.
[2022-10-15] MEDS: MEDIHONEY 44 ML TOPICAL TUBE TOP SCH (09:00)
--- NOTE | 2022-10-15 09:44 | P.PN ---
Date of Service: 10/15/22 Chief Complaint: Left lower extremity cellulitis/wound Subjective: Patient resting comfortably in bed. at bedside. Reports continued constipation with last bowel movement >5 days ago. + abdominal distention. + decreased appetite. Physical Examination Temp Pulse Resp BP Pulse Ox 98.1 F 64 14 171/83 H 95 10/15/22 08:00 10/15/22 08:00 10/15/22 08:00 10/15/22 08:00 10/15/22 08:00 General: Alert, In no apparent distress, Oriented x3 HEENT: Atraumatic, Normocephalic Neck: Supple, JVD not distended Respiratory: Clear to auscultation bilaterally. Nonlabored respirations on room air. Cardiovascular: Regular rate/rhythm. LLE edema present. Gastrointestinal: Normoactive bowel sounds. Distended abdomen. Musculoskeletal: No clubbing. Paraplegic Integumentary: Pressure ulcer right heel, right lateral ankle, left lateral ankl e. Dressing clean dry and intact. Wound vac to left lower extremity wound. Neurological: Normal speech, Normal tone, Normal affect Urinary: chronic myers catheter. Studies Laboratory Data - Reviewed Microbiology Data - Reviewed COVID Negative Influenza A&B Negative Imagings Data: - CT Abdomen/Pelvis 10/06: " No acute intra-abdominal or pelvic finding" - XR Chest 10/06: "No acute cardiopulmonary disease." - Venous study LLE 10/06: "No DVT in the left lower extremity." Medications List: Reviewed Assessment and Plan Problem List Cellulitis LLE Diabetes Mellitus type II CKD III Atrial Fibrillation Hypertension Hypothyroidism Hyperlipidemia Chronic Diastolic Congestive Heart Failure Paraplegia Gout Anemia Constipation Cellulitis of Left Lower Extremity/Ankle with chronic wound infection Osteomyelitis of LLE - Venous study LLE 10/06: "No DVT in the left lower extremity." - Patient sees podiatry Dr. Dupree as outpatient for foot wound management/wound care who is also consulted. - Left Lower Leg wound culture 10/06: Staphylococcus aureus - Right ankle wound culture 10/07: Staphylococcus aureus - Recent history of MDR infection of RLE and LLE wounds on 08/17/2022: Methicillin-Resistant Staphylococcus aureus, Citrobacter freundii and Enterobacter cloacae - Previously on Cefepime and Vancomycin (10/07-10/10) - Left distal fibula bone, biopsy 10/07: "Consistent with acute osteomyelitis, recommend clinical and radiographic correlation" Catheter Associated Urinary Tract Infection (POA) - Chronic myers catheter for ~2 years - Urine culture 10/06: Providencia rettgeri - On Rocephin (started 10/10-) Leukocytosis resolved. Afebrile. Blood cultures 10/06: No growth to date Afib: cardiology following CKD: nephrology following Constipation - KUB XR 10/15: ": Nonobstructive bowel gas pattern. No air-fluid levels, free air, or pneumatosis. No suspicious calcifications " - Received dulcolax, milk of magnesia, magnesium citrate without resulting in bowel movement. Recommendations - Left distal fibula bone biopsy results consistent with acute osteomyelitis. Wound cultures growing MSSA. - Currently on Rocephin. Recommend switching to Cefazolin IV to complete 6 weeks of IV antibiotics via PICC line. - UTI: Urine growing Providencia, sensitive to Rocephin (10/10-). Continue antibiotic for 7 days. On day 5 of 7. - Renally dose medications. Nephrology on case. - Continue current wound care orders per Dr. Dupree - Strict blood glucose control - Pressure offloading measures - Constipation: administer enema today Case discussed with Ventura Bobby
[2022-10-15] MEDS: MINERAL OIL ENEMA 135 ML BTL PR SCH (11:41)
[2022-10-15] MEDS: ENSURE MAX PROTEIN 330 ML LIQUID PO SCH ×2 (14:00→19:58)
[2022-10-15] MEDS ORDERED: ALBUMIN HUMAN 25% 12.5 GM, FUROSEMIDE 100 MG in NA CHLORIDE 0.9% 40 ML IV SCH (14:00)
--- NOTE | 2022-10-15 15:20 | PN ---
Date of Progress Note: 10/15/2022 Subjective: The patient was admitted with acute kidney disease and Charcot joint. The patient was s tarted on hydration. Kidney function has been recovered. The patient complaining from constipation. Physical Examination: Vital Signs: Blood pressure 171/83, pulse of 64, afebrile. Chest: Clear to auscultation. Heart: S1, S2 regular. Abdomen: Soft, nontender. [place]. Extremities: Charcot joint. Dressing bilateral. Laboratory Data: Hemoglobin 9.3. Sodium 137, potassium 4.1, bicarb 26, BUN 31, creatinine 1.6, GFR of 50. Current Medications: The patient on include: 1.Ceftriaxone. 2.Eliquis. 3.Amiodarone. 4.Metoprolol. 5. . 6.Pantoprazole. 7.Magnesium sulfate. Assessment And Plan: 1.Acute kidney injury secondary to toxic acute tubular necrosis, poor perfusion, acute tubular necro sis recovered back to baseline. We will continue to monitor. 2.Hypertension, controlled optimal. Continue current treatment. Elevation today is secondary to th e constipation. 3.Diabetes as by primary. 4.Osteomyelitis with methicillin-susceptible Staphylococcus aureus. Continue current antibiotic. 5.Hypomagnesemia, status post supplement. 6.Constipation. We will give enema and we will follow up the patient. ANDREA Voice ID: [id number] Report ID: [id number]
--- NOTE | 2022-10-15 18:07 | EKG ---
Test Date: 2022-10-15 Test Time: 01:00:24 Community Music Therapist: SHAKIRA MEASUREMENT RESULTS: Intervals: Rate: 73 [place]: 122 QRSD: 112 QT: 418 QTc: 460 [place]: P: 14 [place]: 122 QRS: 119 T: -4 INTERPRETIVE STATEMENTS: Sinus rhythm with premature supraventricular complexes Right bundle branch block Abnormal ECG Compared to ECG 10/11/2022 15:51:53 Atrial premature complex(es) now present Right bundle-branch block now present Atrial fibrillation no longer present Right-axis deviation no longer present Incomplete right bundle-branch block no longer present Right ventricular hypertrophy no longer present ST (T wave) deviation no longer present Possible ischemia no longer present Electronically Signed On 10-15-22 18:06:15 CDT by Kofi Mo
--- NOTE | 2022-10-15 18:18 | EKG ---
Test Date: 2022-10-11 Test Time: 15:51:53 Battery Engineer: PRAVEEN MEASUREMENT RESULTS: Intervals: Rate: 179 [place]: QRSD: 102 QT: 256 QTc: 442 [place]: P: [place]: QRS: 138 T: -44 INTERPRETIVE STATEMENTS: Atrial fibrillation with rapid ventricular response Right axis deviation Incomplete right bundle branch block Right ventricular hypertrophy ST & T wave abnormality, consider inferior ischemia or digitalis effect Abnormal ECG Compared to ECG 10/11/2022 15:50:58 No significant changes Electronically Signed On 10-15-22 18:13:48 CDT by Kofi Mo
--- NOTE | 2022-10-15 18:19 | EKG ---
Test Date: 2022-10-11 Test Time: 15:50:58 Help Desk Operator: PRAVEEN MEASUREMENT RESULTS: Intervals: Rate: 179 [place]: QRSD: 104 QT: 256 QTc: 442 [place]: P: [place]: QRS: 131 T: -36 INTERPRETIVE STATEMENTS: Atrial fibrillation with rapid ventricular response Right axis deviation Incomplete right bundle branch block Right ventricular hypertrophy ST & T wave abnormality, consider anterior ischemia or digitalis effect Abnormal ECG Compared to ECG 10/07/2022 17:42:33 Right-axis deviation now present Right ventricular hypertrophy now present ST (T wave) deviation now present Possible ischemia now present Sinus rhythm no longer present T-wave abnormality no longer present Electronically Signed On 10-15-22 18:13:51 CDT by Kofi Mo
--- NOTE | 2022-10-15 18:32 | RAD REPORT ---
EXAM DESCRIPTION: US - UPPER EXTREMITY VENOUS BILAT - 10/15/2022 3:17 pm CLINICAL HISTORY: Bilateral upper extremity DVT COMPARISON: None. TECHNIQUE: Real-time sonographic evaluation of the upper extremity deep venous system was performed. FINDINGS: Normal compressibility, flow augmentation, phasic flow and spontaneous flow is identified in the upper extremity deep venous system. No intraluminal filling defects seen. IMPRESSION: No DVT in either upper extremity.
--- NOTE | 2022-10-16 00:02 | PN ---
Date of Progress Note: 10/15/2022 Subjective: Seen by bedside, doing clinically well. Had an episode of rapid atrial fibrillation las t night and resolved spontaneously. Review of Systems: Does not have any chest pain or shortness of breath. No nausea, vomiting, diarrhea. All other syste ms reviewed are negative. Physical Examination: Vital signs: Reviewed. Head: Pupils are equal, reactive to light. Intact eye movements. No JVD. No cervical lymphadenopa thy. Neck: Supple. Thyroid is not enlarged. Lungs: Clear to auscultation bilaterally. No rhonchi, wheezing, or crackles. No accessory muscle u se. Heart: Regular rate and rhythm. No extra sounds. Abdomen: Soft, nontender. Bowel sounds positive. No organomegaly. No masses or hernia. No rigidi ty or rebound. Extremities: 2 to 3+ pitting edema bilaterally. No clubbing, cyanosis. Intact pulses. Skin: No rash noted. Neurologic: Alert, awake, oriented x3 and he is paraplegic. Investigations: BUN 31, creatinine 1.62. Assessment/recommendation: 1.Atrial fibrillation, in sinus now. Continue amiodarone and increase metoprolol to 50 mg twice a d ay and also continue Eliquis. 2.Hypertension. Blood pressure is elevated. Recommend adding amlodipine 5 mg daily and further adj ust the dose as needed. SR/MODL Voice ID: [id number] Report ID: [id number]
[2022-10-16] MEDS: LEVOTHYROXINE SOD 0.075 MG TAB PO SCH (05:01)
[2022-10-16] MEDS: METOPROLOL TAR 25 MG TAB PO SCH ×2 (05:01→17:45)
[2022-10-16] MEDS: ENSURE MAX PROTEIN 330 ML LIQUID PO SCH ×3 (09:00→21:00)
[2022-10-16] MEDS: INSULIN -REGULAR HUMAN 50 UNIT/0.5 ML ML SQ SCH ×4 (09:29→21:15)
[2022-10-16] MEDS: PANTOPRAZOLE 40MG TABLET PO SCH (09:30)
[2022-10-16] MEDS: AMIODARONE HCL 200 MG TAB PO SCH ×2 (09:30→21:00)
[2022-10-16] MEDS: APIXABAN 5 MG TABLET PO SCH ×2 (09:30→21:15)
[2022-10-16] MEDS: MAGNESIUM HYDROXIDE 8% 30 ML PO PRN (09:30)
[2022-10-16] MEDS: allopurinoL 100 MG TAB PO SCH (09:30)
[2022-10-16] MEDS: HYDRALAZINE HCL 25 MG TABLET PO SCH ×3 (09:30→21:15)
[2022-10-16] MEDS: CEFTRIAXONE 1,000 MG in NA CHLORIDE 0.9% 50 ML IVPB SCH ×2 (09:31→21:16)
[2022-10-16] MEDS: Mupirocin NASAL 2 APPL/1 GM TUBE NAS SCH ×2 (09:32→21:16)
--- NOTE | 2022-10-16 10:43 | P.PN ---
Date of Service: 10/16/22 Chief Complaint: Left lower extremity cellulitis/wound Subjective: Overnight, reported episode of afib RVR, spontaneously converted back to NSR. Patient received mineral enema x1 and soap denise enema x2 yesterday/last night however still has not had bowel movement. +constipation + abdominal pain + abdominal distention Physical Examination Temp Pulse Resp BP Pulse Ox 97.8 F 63 16 161/76 H 97 10/16/22 08:00 10/16/22 08:00 10/16/22 08:00 10/16/22 08:00 10/16/22 08:00 General: Alert, In no apparent distress, Oriented x3. Pleasant. Cooperative. HEENT: Atraumatic, Normocephalic. Poor dentition. Neck supple, JVD not distended. Respiratory: Clear to auscultation bilaterally. Nonlabored respirations on room air. Cardiovascular: Regular rate/rhythm. LLE edema present. Gastrointestinal: Normoactive bowel sounds. Distended abdomen. Musculoskeletal: No clubbing. Paraplegic Integumentary: Pressure ulcer right heel, right lateral ankle, left lateral ankle. Dressing clean dry and intact. Wound vac to left lower extremity wound. Neurological: Normal speech, Normal tone, Normal affect Urinary: chronic myers catheter. Studies Laboratory Data - Reviewed Microbiology Data - Reviewed COVID Negative Influenza A&B Negative Imagings Data: - CT Abdomen/Pelvis 10/06: " No acute intra-abdominal or pelvic finding" - XR Chest 10/06: "No acute cardiopulmonary disease." - Venous study LLE 10/06: "No DVT in the left lower extremity." Medications List: Reviewed Assessment and Plan Problem List Cellulitis LLE Diabetes Mellitus type II CKD III Atrial Fibrillation Hypertension Hypothyroidism Hyperlipidemia Chronic Diastolic Congestive Heart Failure Paraplegia Gout Anemia Constipation Cellulitis of Left Lower Extremity/Ankle with chronic wound infection Osteomyelitis of LLE - Venous study LLE 10/06: "No DVT in the left lower extremity." - Patient sees podiatry Dr. Dupree as outpatient for foot wound management/wound care who is also consulted. - Left Lower Leg wound culture 10/06: Staphylococcus aureus - Right ankle wound culture 10/07: Staphylococcus aureus - Recent history of MDR infection of RLE and LLE wounds on 08/17/2022: Methicillin-Resistant Staphylococcus aureus, Citrobacter freundii and Enterobacter cloacae - Previously on Cefepime and Vancomycin (10/07-10/10) - Left distal fibula bone, biopsy 10/07: "Consistent with acute osteomyelitis, r ecommend clinical and radiographic correlation" Catheter Associated Urinary Tract Infection (POA) - Chronic myers catheter for ~2 years - Urine culture 10/06: Providencia rettgeri - On Rocephin (started 10/10-) Leukocytosis resolved. Afebrile. Blood cultures 10/06: No growth to date Afib: cardiology following CKD: nephrology following Constipation - KUB XR 10/15: "Nonobstructive bowel gas pattern. No air-fluid levels, free air, or pneumatosis. No suspicious calcifications " - Received dulcolax, milk of magnesia, magnesium citrate without resulting in bowel movement. - Patient received mineral enema x1 and soap denise enema x2 on 10/15; however still has not had bowel movement. Recommendations - Left distal fibula bone biopsy results consistent with acute osteomyelitis. Wound cultures growing MSSA. - Currently on Rocephin. We will switch to Cefazolin IV on 10/17 to complete 6 weeks of IV antibiotics via PICC line. - UTI: Urine growing Providencia, sensitive to Rocephin (10/10-). Continue antibiotic for 7 days. On day 6 of 7. - Renally dose medications. Nephrology on case. - Continue current wound care orders per Dr. Dupree - Strict blood glucose control - Pressure offloading measures Patient would benefit from LTAC placement for continued IV antibiotics for osteomyelitis and wound care with wound vac. Case discussed with Ventura Bobby
[2022-10-16] MEDS: MINERAL OIL ENEMA 135 ML BTL PR SCH (12:00)
--- NOTE | 2022-10-16 14:14 | EKG ---
Test Date: 2022-10-15 Test Time: 00:46:21 Invasive Physician: SHAKIRA MEASUREMENT RESULTS: Intervals: Rate: 157 [place]: QRSD: 180 QT: 314 QTc: 507 [place]: P: [place]: QRS: 177 T: 218 INTERPRETIVE STATEMENTS: Baseline artifact. Electronically Signed On 10-16-22 14:11:59 CDT by Kofi Mo
[2022-10-16] MEDS: METHYLPREDNISOLONE 40 MG INJ IV SCH (17:34)
[2022-10-16] MEDS: MORPHINE 2 MG/ML SYR IV PRN (17:35)
[2022-10-16] MEDS: MEDIHONEY 44 ML TOPICAL TUBE TOP SCH (17:52)
[2022-10-17] MEDS: MORPHINE 2 MG/ML SYR IV PRN ×2 (00:34→08:25)
[2022-10-17] MEDS: METHYLPREDNISOLONE 40 MG INJ IV SCH ×2 (00:34→06:02)
[2022-10-17] MEDS: METOPROLOL TAR 25 MG TAB PO SCH ×2 (06:02→17:19)
[2022-10-17] MEDS: LEVOTHYROXINE SOD 0.075 MG TAB PO SCH (06:02)
[2022-10-17 07:18] LABS: Albumin 2.4 g/dL (3.4-5.0); Phosphorus 3.5 mg/dL (2.5-4.9); Potassium 5.3 mEq/L (3.5-5.1)
[2022-10-17] MEDS: INSULIN -REGULAR HUMAN 50 UNIT/0.5 ML ML SQ SCH ×4 (07:30→22:40)
[2022-10-17] MEDS ORDERED: INSULIN 70/30 100 UNITS/ML SQ ONE ×3 (07:45→17:09)
[2022-10-17] MEDS ORDERED: NA CHLORIDE 0.9% 250 ML IV ONE (07:46)
[2022-10-17] MEDS: PANTOPRAZOLE 40MG TABLET PO SCH (08:13)
[2022-10-17] MEDS: HYDRALAZINE HCL 25 MG TABLET PO SCH ×3 (08:13→20:39)
[2022-10-17] MEDS: APIXABAN 5 MG TABLET PO SCH ×2 (08:14→20:39)
[2022-10-17] MEDS: allopurinoL 100 MG TAB PO SCH (08:14)
[2022-10-17] MEDS: AMIODARONE HCL 200 MG TAB PO SCH ×2 (08:14→20:39)
[2022-10-17] MEDS: MEDIHONEY 44 ML TOPICAL TUBE TOP SCH (08:20)
[2022-10-17] MEDS: ENSURE MAX PROTEIN 330 ML LIQUID PO SCH ×3 (08:22→20:40)
[2022-10-17] MEDS ORDERED: NA CHLORIDE 0.9% 500 ML ONE (08:22)
[2022-10-17] MEDS: CEFTRIAXONE 1,000 MG in NA CHLORIDE 0.9% 50 ML IVPB SCH ×2 (08:23→20:38)
--- NOTE | 2022-10-17 08:47 | PN ---
Date of Progress Note: 10/16/2022 Subjective: The patient was admitted with osteomyelitis. The patient was started on IV antibiotic. The patient found to have MSSA. The patient had acute kidney injury secondary to toxic ATN, poor pe rfusion, ATN as the patient was admitted with sepsis, and low blood pressure, septic shock. Kidney f unction started improving back to baseline. Physical Examination: Vital Signs: Blood pressure 136/71, pulse of 61, afebrile. Chest: Clear to auscultation. Heart: S1, S2. Systolic murmur. Abdomen: Soft, nontender. Extremities: No edema. Patient had Charcot joint, bilateral. Neuro: Alert and oriented x3. Patient had quadriplegia. Laboratory Data: Hemoglobin 9.3. Sodium 137, potassium 4.1, bicarb 26, BUN 31, creatinine 1.6. Current Medications: Include: 1.Amiodarone. 2.Hydralazine 25 t.i.d. 3.Metoprolol 25 b.i.d. 4.Ceftriaxone. 5.Eliquis. 6.Zofran. 7.Levothyroxine. 8.Allopurinol. Assessment And Plan: 1.Acute kidney injury secondary to toxic acute tubular necrosis, poor perfusion, acute tubular necro sis recovered back to baseline, normal volume. We will continue to monitor. 2.Hypertension, controlled, optimal. Continue current medication. 3.Diabetes as by primary. 4.Osteomyelitis. Continue ceftriaxone dose appropriate. We will follow up with primary. 5.Hypomagnesemia, status post supplement. EUN/MODL Voice ID: [id number] Report ID: [id number]
--- NOTE | 2022-10-17 09:48 | P.PN ---
Date of Service: 10/17/22 Chief Complaint: Left lower extremity cellulitis/wound Subjective: Patient reports small bowel movement after edema administration, stating "just a few small rabbit-sized pieces" would like to continue with bowel regimen. Otherwise no new or worsening complaints. No acute events reported overnight. Physical Examination Temp Pulse Resp BP Pulse Ox 97.5 F 69 18 184/88 H 96 10/17/22 04:00 10/17/22 04:00 10/17/22 04:00 10/17/22 04:00 10/17/22 04:00 General: Alert, In no apparent distress, Oriented x3. Pleasant. Cooperative. HEENT: Atraumatic, Normocephalic. Poor dentition. Neck supple, JVD not distended. Respiratory: Clear to auscultation bilaterally. Nonlabored respirations on room air. Cardiovascular: Regular rate/rhythm. LLE edema present. Gastrointestinal: Normoactive bowel sounds. Distended abdomen. Musculoskeletal: No clubbing. Paraplegic Integumentary: Pressure ulcer right heel, right lateral ankle, left lateral ankle. Dressing clean dry and intact. Wound vac to left lower extremity wound. Neurological: Normal speech, Normal tone, Normal affect Urinary: chronic myers catheter. Studies Laboratory Data - Reviewed Microbiology Data - Reviewed COVID Negative Influenza A&B Negative Imagings Data: - CT Abdomen/Pelvis 10/06: " No acute intra-abdominal or pelvic finding" - XR Chest 10/06: "No acute cardiopulmonary disease." - Venous study LLE 10/06: "No DVT in the left lower extremity." Medications List: Reviewed Assessment and Plan Problem List Cellulitis LLE Diabetes Mellitus type II CKD III Atrial Fibrillation Hypertension Hypothyroidism Hyperlipidemia Chronic Diastolic Congestive Heart Failure Paraplegia Gout Anemia Constipation Cellulitis of Left Lower Extremity/Ankle with chronic wound infection Osteomyelitis of LLE - Venous study LLE 10/06: "No DVT in the left lower extremity." - Patient sees podiatry Dr. Dupree as outpatient for foot wound management/wound care who is also consulted. - Left Lower Leg wound culture 10/06: Staphylococcus aureus - Right ankle wound culture 10/07: Staphylococcus aureus - Recent history of MDR infection of RLE and LLE wounds on 08/17/2022: Methicillin-Resistant Staphylococcus aureus, Citrobacter freundii and Enterobacter cloacae - Previously on Cefepime and Vancomycin (10/07-10/10) - Left distal fibula bone, biopsy 10/07: "Consistent with acute osteomyelitis, recommend clinical and radiographic correlation" Catheter Associated Urinary Tract Infection (POA) - Chronic myers catheter for ~2 years - Urine culture 10/06: Providencia rettgeri - On Rocephin (started 10/10-) Leukocytosis resolved. Afebrile. Blood cultures 10/06: No growth to date Afib: cardiology following CKD: nephrology following Constipation - KUB XR 10/15: "Nonobstructive bowel gas pattern. No air-fluid levels, free air, or pneumatosis. No suspicious calcifications " - Received dulcolax, milk of magnesia, magnesium citrate without resulting in bowel movement. - Patient received mineral enema x1 and soap denise enema x2 on 10/15 Recommendations - UTI: On day 10 of 10 of antibiotic therapy for providencia rettgeri infection. Discontinue Rocephin. - Switch to Cefazolin complete 6 weeks of IV antibiotics via PICC line for Osteomyelitis. - Renally dose medications. Nephrology on case. - Continue current wound care orders per Dr. Dupree - Pressure offloading measures - constipation: continue bowel regimen Patient would benefit from LTAC placement for continued IV antibiotics for osteomyelitis and wound care/wound vac. Case discussed with Ventura Bobby
[2022-10-17] MEDS: NA CHLORIDE 0.9% 1,000 ML IV SCH ×2 (10:00→22:00)
[2022-10-17] MEDS ORDERED: METHYLPREDNISOLONE 125 MG INJ IV SCH (12:00)
--- NOTE | 2022-10-17 14:59 | P.PN ---
Subjective Date of Service: 10/17/22 Primary Care Provider: +9 Chief Complaint: Left lower extremity cellulitis/wound Subjective: Other (no new complaints) Physical Examination - Vital Signs Temperature: 98.5 F Blood Pressure: 166/78 Pulse: 63 Respirations: 19 Pulse Ox (%): 99 - Physical Exam General: Other (chronically ill-appearing) HEENT: Atraumatic, Normocephalic Neck: Supple Respiratory: Other (symmetric chest expansion) Cardiovascular: No rubs, No murmurs Gastrointestinal: Soft and benign, No guarding Musculoskeletal: No clubbing Integumentary: No warmth Neurological: Normal tone Urinary: Other (no bladder distention) External genitalia: Deferred Rectal: Deferred Assessment And Plan - Plan 1. CROW 2/2 ATN. SCr improved to 1.6, then inc to 2.0, likely 2/2 prerenal state aggravated by severe hyperglycemia. [place] po fluid intake. NS gtt as below. 2. Pseudohyponatremia from hyperglycemia. Cont NS gtt 50 cc/hr. DM management per primary team. 3. HyperK. Lasix IV x 1 dose today. IVF as above. 4. Hypertension. continue current medication regimen 5. Atrial fibrillation with rapid ventricular response. HR better controlled. Per other services. 6. Sepsis 2/2 LLE cellulitis w/ osteomyelitis. Per ID service. 7. DM2. Mngt per primary team. 8. Hypothyroidism. Levothyroxine. Physician Review: Patient Assessed, Agree with Above Assessment and Plan
[2022-10-17] MEDS ORDERED: FUROSEMIDE 20 MG/ 2ML VIAL IV ONE (15:57)
[2022-10-17] MEDS ORDERED: MAGNESIUM CITRATE 300 ML BOT PO SCH (16:00)
[2022-10-17 22:58] LABS: Absolute Lymphocytes (CBC) 0.6 K/uL (0.7-4.9); Hematocrit 28.8 % (39.6-49.0); Lymphocytes % 4.4 % (15.3-44.8); MCV 87.9 fL (80-100); MPV 9.9 fL (7.6-11.3); Platelets 189 thou/uL (152-406); RBC Red Blood Cell Count 3.28 M/uL (4.33-5.43)
[2022-10-17 23:15] LABS: Magnesium 2.6 mg/dL (1.6-2.4); Potassium 5.2 mEq/L (3.5-5.1)
[2022-10-18] MEDS ORDERED: INSULIN GLARGINE 100 UNIT/ML SQ ONE (01:20)
[2022-10-18] MEDS: MORPHINE 2 MG/ML SYR IV PRN (01:51)
[2022-10-18 02:20] LABS: Potassium 4.9 mEq/L (3.5-5.1)
[2022-10-18] MEDS: INSULIN -REGULAR HUMAN 50 UNIT/0.5 ML ML SQ SCH ×7 (02:41→20:33)
[2022-10-18] MEDS: NA CHLORIDE 0.9% 1,000 ML IV SCH ×2 (04:28→05:30)
[2022-10-18 05:23] VITALS: BMI 38.9
[2022-10-18] MEDS: LEVOTHYROXINE SOD 0.075 MG TAB PO SCH (05:31)
[2022-10-18] MEDS: METOPROLOL TAR 25 MG TAB PO SCH ×2 (05:31→17:20)
[2022-10-18 06:07] LABS: Magnesium 2.5 mg/dL (1.6-2.4); Potassium 5.1 mEq/L (3.5-5.1)
[2022-10-18] MEDS: MEDIHONEY 44 ML TOPICAL TUBE TOP SCH (09:00)
[2022-10-18] MEDS: ENSURE MAX PROTEIN 330 ML LIQUID PO SCH ×3 (09:00→20:35)
[2022-10-18] MEDS: APIXABAN 5 MG TABLET PO SCH ×2 (09:14→20:33)
[2022-10-18] MEDS: CEFTRIAXONE 1,000 MG in NA CHLORIDE 0.9% 50 ML IVPB SCH ×2 (09:14→20:33)
[2022-10-18] MEDS: HYDRALAZINE HCL 25 MG TABLET PO SCH ×3 (09:14→20:33)
[2022-10-18] MEDS: AMIODARONE HCL 200 MG TAB PO SCH ×2 (09:14→20:33)
[2022-10-18] MEDS: allopurinoL 100 MG TAB PO SCH (09:14)
[2022-10-18] MEDS: PANTOPRAZOLE 40MG TABLET PO SCH (09:14)
--- NOTE | 2022-10-18 10:21 | RAD REPORT ---
EXAM DESCRIPTION: RAD - Abdomen 1 View (KUB) - 10/18/2022 4:54 am CLINICAL HISTORY: constipation COMPARISON: Abdomen 1 View (KUB) dated 10/15/2022 TECHNIQUE: Single AP view of the abdomen. FINDINGS: Nonobstructive bowel gas pattern. Mild central abdominal gaseous distension. No air-fluid levels, free air, or pneumatosis. No suspicious calcifications. No significant bony abnormality. IMPRESSION: Mild gaseous distention. Nonobstructive bowel gas pattern.
[2022-10-18] MEDS: GOLYTELY 4000 ML PO SCH ×2 (14:00)
--- NOTE | 2022-10-18 16:04 | P.PN ---
Subjective Date of Service: 10/18/22 Primary Care Provider: +9 Chief Complaint: Left lower extremity cellulitis/wound Pt admitted with celluilitis, have Hx of cKD, cr stable ~2.0 Today no BM BS is better controlled Physical exam General: Awake, NAD HEENT: Atraumatic, Normocephalic Neck: Supple, no elevated JVD Respiratory: CTAB Cardiovascular: No rubs, No murmurs Gastrointestinal: Soft and benign, Non-distended Musculoskeletal: No clubbing Leg: warpeed, tarce edema A/) # CROW 2/2 ATN. SCr improved to 1.6, then inc to 2.0, and stable likely 2/2 prerenal state aggravated by severe hyperglycemia. [place] po fluid intake. # Pseudohyponatremia from hyperglycemia. # Hypertension. continue current medication regimen # Atrial fibrillation with rapid ventricular response. HR better controlled. Per other services. # Sepsis 2/2 LLE cellulitis w/ osteomyelitis. Per ID service. # DM2. Mngt per primary team. # Hypothyroidism. Levothyroxine. #COnstipation, failed Enema, today tried golytle Physical Examination - Vital Signs Temperature: 97.2 F Blood Pressure: 151/71 Pulse: 51 Respirations: 16 Pulse Ox (%): 97 Assessment And Plan Physician Review: Patient Assessed, Agree with Above Assessment and Plan
[2022-10-19] MEDS: NA CHLORIDE 0.9% 1,000 ML IV SCH (02:00)
[2022-10-19] MEDS: MORPHINE 2 MG/ML SYR IV PRN ×3 (04:37→23:06)
[2022-10-19] MEDS: LEVOTHYROXINE SOD 0.075 MG TAB PO SCH (06:12)
[2022-10-19] MEDS: METOPROLOL TAR 25 MG TAB PO SCH ×2 (06:12→16:57)
[2022-10-19] MEDS: INSULIN -REGULAR HUMAN 50 UNIT/0.5 ML ML SQ SCH ×4 (07:30→21:47)
[2022-10-19] MEDS: HYDRALAZINE HCL 25 MG TABLET PO SCH ×3 (08:31→21:47)
[2022-10-19] MEDS: allopurinoL 100 MG TAB PO SCH (08:31)
[2022-10-19] MEDS: CEFTRIAXONE 1,000 MG in NA CHLORIDE 0.9% 50 ML IVPB SCH ×2 (08:31→21:47)
[2022-10-19] MEDS: PANTOPRAZOLE 40MG TABLET PO SCH (08:31)
[2022-10-19] MEDS: APIXABAN 5 MG TABLET PO SCH ×2 (08:31→21:47)
[2022-10-19] MEDS: AMIODARONE HCL 200 MG TAB PO SCH ×2 (08:31→21:47)
[2022-10-19] MEDS: ENSURE MAX PROTEIN 330 ML LIQUID PO SCH ×3 (08:33→21:00)
[2022-10-19] MEDS: MEDIHONEY 44 ML TOPICAL TUBE TOP SCH (08:37)
--- NOTE | 2022-10-19 14:51 | P.PN ---
Subjective Date of Service: 10/19/22 Primary Care Provider: +9 Chief Complaint: Left lower extremity cellulitis/wound Pt admitted with celluilitis, have Hx of cKD, cr stable ~2.0 Today no overnight events Stable VS had BM BS is better controlled Physical exam General: Awake, NAD HEENT: Atraumatic, Normocephalic Neck: Supple, no elevated JVD Respiratory: CTAB Cardiovascular: No rubs, No murmurs Gastrointestinal: Soft and benign, Non-distended Musculoskeletal: No clubbing Leg: warpeed, tarce edema A/) # CROW 2/2 ATN. SCr improved to 1.6, then inc to 2.0, and stable likely 2/2 prerenal state aggravated by severe hyperglycemia. [place] po fluid intake. # Pseudohyponatremia from hyperglycemia. # Hypertension. continue current medication regimen # Atrial fibrillation with rapid ventricular response. HR better controlled. Per other services. # Sepsis 2/2 LLE cellulitis w/ osteomyelitis. Per ID service. # DM2. Mngt per primary team. # Hypothyroidism. Levothyroxine. #COnstipation, failed Enema, today tried golytle Physical Examination - Vital Signs Temperature: 97.8 F Blood Pressure: 141/74 Pulse: 58 Respirations: 18 Pulse Ox (%): 95 Assessment And Plan Physician Review: Patient Assessed, Agree with Above Assessment and Plan
[2022-10-19 14:52] LABS: Albumin 2.5 g/dL (3.4-5.0); Bilirubin Total 0.2 mg/dL (0.2-1.0); Protein, Total 6.7 g/dL (6.4-8.2)
[2022-10-19 14:53] LABS: Absolute Lymphocytes (CBC) 1.7 K/uL (0.7-4.9); Hematocrit 30.4 % (39.6-49.0); Lymphocytes % 13.8 % (15.3-44.8); MCV 86.5 fL (80-100); MPV 9.5 fL (7.6-11.3); Platelets 197 thou/uL (152-406); RBC Red Blood Cell Count 3.52 M/uL (4.33-5.43)
--- NOTE | 2022-10-19 17:21 | P.PN ---
Date of Service: 10/15/22 Subjective: Doing well. Awaiting for [facility] would like placement. Otherwise, no new complaints. Physical Exam: Vitals: Reviewed GEN: Alert, oriented, NAD CV: Regular rate & rhythm, no edema Pulm: Respirations are clear bilaterally ABD: Soft, nontender, nondistended MSK: Diffuse joint tenderness and muscle pain Integumentary: Bilateral foot wounds; dressing C/D/I Neuro: Lower extremity weakness; right arm weakness Problem List: 1. Sepsis likely secondary to Left Lower Extremity Purulent Cellulitis with Staphylococcus Aureus Osteomyelitis 2. Providencia Rettgeri Catheter-Associated UTI- POA 3. CROW on CKD 3 4. History of Spinal Stroke complicated by Paraplegia 5. Chronic Indwelling Valera Catheter 6. Microscopic Hematuria 7. Type II Diabetes Mellitus 8. Atrial Fibrillation with RVR 9. Chronic Compensated Diastolic CHF 10. Hypertension 11. Gout 12. Hypothyroidism 13. GERD PLAN PLAN: Continue with plan of care as mentioned below: 1. Continue with IV antibiotic 2. Continue with local wound care 3. Wound care consultation/surgical consultation appreciated 4. Gentle IV hydration 5. Monitor CBC 6. Strict blood sugar monitoring 7. Pain control 8. Continue with wound care 9. Awaiting for placement 10. GI and DVT prophylaxis
--- NOTE | 2022-10-19 17:23 | P.PN ---
Date of Service: 10/16/22 Subjective: Patient continues to improve. Patient clinical symptoms are doing well. Awaiting for placement at this time. Physical Exam: Vitals: Reviewed GEN: Alert, oriented, NAD CV: Regular rate & rhythm, no edema Pulm: Respirations are clear bilaterally ABD: Soft, nontender, nondistended MSK: Diffuse joint tenderness and muscle pain Integumentary: Bilateral foot wounds; dressing C/D/I Neuro: Lower extremity weakness; right arm weakness Problem List: 1. Sepsis likely secondary to Left Lower Extremity Purulent Cellulitis with Staphylococcus Aureus Osteomyelitis 2. Providencia Rettgeri Catheter-Associated UTI- POA 3. CROW on CKD 3 4. History of Spinal Stroke complicated by Paraplegia 5. Chronic Indwelling Valera Catheter 6. Microscopic Hematuria 7. Type II Diabetes Mellitus 8. Atrial Fibrillation with RVR 9. Chronic Compensated Diastolic CHF 10. Hypertension 11. Gout 12. Hypothyroidism 13. GERD PLAN PLAN: Continue with plan of care as mentioned below: 1. Continue with IV antibiotic; long-term IV antibiotic therapy 2. Continue with local wound care; continue with wound care and wound VAC placement 3. Wound care consultation/surgical consultation appreciated 4. Labs closely Hep-Lock IV 5. Monitor labs closely 6. Strict blood sugar monitoring 7. Pain control 8. Continue with wound care 9. Awaiting for placement at long-term acute care placement-[facility] 10. GI and DVT prophylaxis
--- NOTE | 2022-10-19 17:25 | P.PN ---
Date of Service: 10/17/22 Subjective: Patient continues to improve. Patient blood sugars were elevated. Patient was having pain in the right shoulder and we gave patient some IV steroids. Patient blood sugars are elevated. At this point, we will continue with IV hydration and strict blood sugar control. Physical Exam: Vitals: Reviewed GEN: Alert, oriented, NAD CV: Regular rate & rhythm, no edema Pulm: Respirations are clear bilaterally ABD: Soft, nontender, nondistended MSK: Diffuse joint tenderness and muscle pain Integumentary: Bilateral foot wounds; dressing C/D/I Neuro: Lower extremity weakness; right arm weakness Problem List: 1. Sepsis likely secondary to Left Lower Extremity Purulent Cellulitis with Staphylococcus Aureus Osteomyelitis 2. Providencia Rettgeri Catheter-Associated UTI- POA 3. CROW on CKD 3 4. History of Spinal Stroke complicated by Paraplegia 5. Chronic Indwelling Valera Catheter 6. Microscopic Hematuria 7. Type II Diabetes Mellitus 8. Atrial Fibrillation with RVR 9. Chronic Compensated Diastolic CHF 10. Hypertension 11. Gout 12. Hypothyroidism 13. GERD PLAN PLAN: Continue with plan of care as mentioned below: 1. Continue with IV antibiotic; long-term IV antibiotic therapy 2. Continue with local wound care; continue with wound care and wound VAC placement 3. Wound care consultation/surgical consultation appreciated 4. Labs closely Hep-Lock IV 5. Monitor labs closely 6. Strict blood sugar monitoring 7. Pain control 8. Continue with wound care 9. Patient was denied LTAC placement. Will discuss with patient regarding [facility] facility or home health placement. 10. GI and DVT prophylaxis
--- NOTE | 2022-10-19 17:26 | P.PN ---
Date of Service: 10/18/22 Subjective: Patient is doing well and patient denies any new complaints. Patient's clinical symptoms are stable. Patient had decided that they wanted to proceed with home health. We will work on trying to get patient home if we can get everything arranged by tomorrow. Physical Exam: Vitals: Reviewed GEN: Alert, oriented, NAD CV: Regular rate & rhythm, no edema Pulm: Respirations are clear bilaterally ABD: Soft, nontender, nondistended MSK: Diffuse joint tenderness and muscle pain Integumentary: Bilateral foot wounds; dressing C/D/I Neuro: Lower extremity weakness; right arm weakness Problem List: 1. Sepsis likely secondary to Left Lower Extremity Purulent Cellulitis with Staphylococcus Aureus Osteomyelitis 2. Providencia Rettgeri Catheter-Associated UTI- POA 3. CROW on CKD 3 4. History of Spinal Stroke complicated by Paraplegia 5. Chronic Indwelling Valera Catheter 6. Microscopic Hematuria 7. Type II Diabetes Mellitus 8. Atrial Fibrillation with RVR 9. Chronic Compensated Diastolic CHF 10. Hypertension 11. Gout 12. Hypothyroidism 13. GERD PLAN PLAN: Continue with plan of care as mentioned below: 1. Continue with IV antibiotic; long-term IV antibiotic therapy 2. Continue with local wound care; continue with wound care and wound VAC placement 3. Wound care consultation/surgical consultation appreciated 4. Labs closely Hep-Lock IV 5. Monitor labs closely 6. Strict blood sugar monitoring 7. Pain control 8. Continue with wound care 9. Patient was denied LTAC placement. Will discuss with patient regarding custodial facility or home health placement. 10. GI and DVT prophylaxis
[2022-10-19] MEDS ORDERED: NA CHLORIDE 0.9% 1,000 ML IV SCH (17:32)
[2022-10-20] MEDS: MORPHINE 2 MG/ML SYR IV PRN ×2 (05:26→14:58)
[2022-10-20] MEDS: METOPROLOL TAR 25 MG TAB PO SCH (05:27)
[2022-10-20] MEDS: LEVOTHYROXINE SOD 0.075 MG TAB PO SCH (05:31)
--- NOTE | 2022-10-20 08:05 | P.PN ---
Date of Service: 10/19/22 Subjective: Still trying to get set up with home health. Patient clinically doing well. Once we get this arranged patient should be able to discharge. Physical Exam: Vitals: Reviewed GEN: Alert, oriented, NAD CV: Regular rate & rhythm, no edema Pulm: Respirations are clear bilaterally ABD: Soft, nontender, nondistended MSK: Diffuse joint tenderness and muscle pain Integumentary: Bilateral foot wounds; dressing C/D/I Neuro: Lower extremity weakness; right arm weakness Problem List: 1. Sepsis likely secondary to Left Lower Extremity Purulent Cellulitis with Staphylococcus Aureus Osteomyelitis 2. Providencia Rettgeri Catheter-Associated UTI- POA 3. CROW on CKD 3 4. History of Spinal Stroke complicated by Paraplegia 5. Chronic Indwelling Valera Catheter 6. Microscopic Hematuria 7. Type II Diabetes Mellitus 8. Atrial Fibrillation with RVR 9. Chronic Compensated Diastolic CHF 10. Hypertension 11. Gout 12. Hypothyroidism 13. GERD PLAN PLAN: Continue with plan of care as mentioned below: 1. Continue with IV antibiotic; long-term IV antibiotic therapy 2. Continue with local wound care; continue with wound care and wound VAC placement 3. Wound care consultation/surgical consultation appreciated 4. Labs closely Hep-Lock IV 5. Monitor labs closely 6. Strict blood sugar monitoring 7. Pain control 8. Continue with wound care 9. Patient was denied LTAC placement. Will discuss with patient regarding [facility] facility or home health placement. 10. GI and DVT prophylaxis
--- NOTE | 2022-10-20 08:59 | P.PN ---
Date of Service: 10/20/22 Chief Complaint: Left lower extremity cellulitis/wound Subjective: Patient resting comfortably in bed. A&Ox4. No acute events reported overnight. Denies any new or worsening complaints. Overall improving. Physical Examination Temp Pulse Resp BP Pulse Ox 97.5 F 54 16 158/78 H 92 10/20/22 08:00 10/20/22 08:00 10/20/22 08:00 10/20/22 08:00 10/20/22 08:00 General: Alert, In no apparent distress, Oriented x3. Pleasant. Cooperative. HEENT: Atraumatic, Normocephalic. Poor dentition. Neck supple, JVD not distended. Respiratory: Clear to auscultation bilaterally. Nonlabored respirations on room air. Cardiovascular: Regular rate/rhythm. LLE edema present. Gastrointestinal: Normoactive bowel sounds. Distended abdomen. Musculoskeletal: No clubbing. Paraplegic Integumentary: Pressure ulcer right heel, right lateral ankle, left lateral ankle. Dressing clean dry and intact. Wound vac to left lower extremity wound. Neurological: Normal speech, Normal tone, Normal affect Urinary: chronic myers catheter. Studies Laboratory Data - Reviewed Microbiology Data - Reviewed COVID Negative Influenza A&B Negative Imagings Data: - CT Abdomen/Pelvis 10/06: " No acute intra-abdominal or pelvic finding" - XR Chest 10/06: "No acute cardiopulmonary disease." - Venous study LLE 10/06: "No DVT in the left lower extremity." Medications List: Reviewed Assessment and Plan Problem List Cellulitis LLE Diabetes Mellitus type II CKD III Atrial Fibrillation Hypertension Hypothyroidism Hyperlipidemia Chronic Diastolic Congestive Heart Failure Paraplegia Gout Anemia Constipation Cellulitis of Left Lower Extremity/Ankle with chronic wound infection Osteomyelitis of LLE - Venous study LLE 10/06: "No DVT in the left lower extremity." - Patient sees podiatry Dr. Dupree as outpatient for foot wound management/wound care who is also consulted. 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 Afebrile. Blood cultures 10/06: No growth to date Afib: cardiology following CKD: nephrology following Constipation - KUB XR 10/15: "Nonobstructive bowel gas pattern. No air-fluid levels, free air, or pneumatosis. No suspicious calcifications " - Received dulcolax, milk of magnesia, magnesium citrate without resulting in bowel movement. - Patient received mineral enema x1 and soap denise enema x2 on 10/15 Recommendations - UTI: completed 10 day course of Rocephin (10/10-10/20). Discontinue Rocephin. - Start on Cefazolin complete 6 weeks of IV antibiotics via PICC line for Osteomyelitis. - Renally dose medications. Nephrology on case. - Continue current wound care orders per Dr. Dupree - Pressure offloading measures - constipation: continue bowel regimen Case discussed with [place] [facility]
[2022-10-20] MEDS: MEDIHONEY 44 ML TOPICAL TUBE TOP SCH (09:00)
[2022-10-20] MEDS: ENSURE MAX PROTEIN 330 ML LIQUID PO SCH ×2 (09:00→14:00)
[2022-10-20] MEDS ORDERED: AMLODIPINE 10 MG TAB PO SCH (09:00)
[2022-10-20] MEDS: HYDRALAZINE HCL 25 MG TABLET PO SCH ×2 (09:05→14:56)
[2022-10-20] MEDS: AMIODARONE HCL 200 MG TAB PO SCH (09:05)
[2022-10-20] MEDS: PANTOPRAZOLE 40MG TABLET PO SCH (09:05)
[2022-10-20] MEDS: APIXABAN 5 MG TABLET PO SCH (09:05)
[2022-10-20] MEDS: allopurinoL 100 MG TAB PO SCH (09:06)
[2022-10-20] MEDS: CEFTRIAXONE 1,000 MG in NA CHLORIDE 0.9% 50 ML IVPB SCH (09:06)
[2022-10-20] MEDS: INSULIN -REGULAR HUMAN 50 UNIT/0.5 ML ML SQ SCH ×2 (09:06→13:03)
--- NOTE | 2022-10-20 13:07 | P.PN ---
Date of Service: 10/20/22 VERONICA for MSSA for treatment vs. Oxacillin<0.5 so we will continue with ceftriaxone as it will be dosed less often and easier for family to use
[2022-10-20 14:31] VITALS: O2SAT 92
[2022-10-20 14:33] VITALS: BP 153/71; TEMP 98
[2022-10-20] MEDS ORDERED: CEFAZOLIN SODIUM 2 GM in NA CHLORIDE 0.9% 100 ML IVPB SCH (17:00)
--- NOTE | 2022-10-21 01:51 | PN ---
Date of Progress Note: 10/20/2022 Chief Complaint: Left lower extremity cellulitis. Subjective: The patient was admitted to the hospital for cellulitis and wound care. The patient was started on antibiotics. Nephrology consultation was requested for chronic kidney disease and acute kidney injury. The patient has history of chronic kidney disease stage 3. He developed acute kidney injury due to ATN. Renal function has declined and serum creatinine was up to 2.0. Subsequently, c reatinine level has improved to 1.6. Review of Systems: Patient denies fever, chills. Physical Examination: Lungs: Clear to auscultation bilaterally. Heart: S1, S2. Abdomen: Soft. Extremities: Slight edema. Impression And Plan: 1.Acute kidney injury secondary to ATN. Monitor renal function. Avoid nephrotoxic medication. Con tinue adequate hydration by mouth. 2.Pseudohyponatremia from hyperglycemia and controlled diabetes with insulin. 3.Hypertension. Continue current medication. 4.Atrial fibrillation. Rate is better controlled per Cardiology. Further recommendation from Cardi ology. 5.Sepsis secondary to left lower extremity cellulitis with osteomyelitis. ID service is following. FRANKLIN/SNOW Voice ID: [id number] Report ID: [id number]
== END 2022-10-20 15:55 | disposition home health service (06) | DRG 853 ==
LOC: ER 15:05 → ERHOLD 19:07 → 2ND 21:48 → 3RD-ICU 10-07 22:05 → 4TH 10-08 22:43
PROVIDERS: ADMIT Internal Medicine; ATTEND Hospitalist
PROC: 0JBR0ZZ Excision of Left Foot Subcutaneous Tissue and Fascia, Open Approach (ICD-10-PCS; 2022-10-07)
PROC: 0QBK0ZX Excision of Left Fibula, Open Approach, Diagnostic (ICD-10-PCS; 2022-10-07)
PROC: 3E033XZ Introduction of Vasopressor into Peripheral Vein, Percutaneous Approach (ICD-10-PCS; 2022-10-07)
PROC: 0JBP0ZZ Excision of Left Lower Leg Subcutaneous Tissue and Fascia, Open Approach (ICD-10-PCS; principal; 2022-10-07 17:00)
PROC: 02HV33Z Insertion of Infusion Device into Superior Vena Cava, Percutaneous Approach (ICD-10-PCS; 2022-10-12)
PROC: 3E043XZ Introduction of Vasopressor into Central Vein, Percutaneous Approach (ICD-10-PCS; 2022-10-12)
DX: A41.01 Sepsis due to Methicillin susceptible Staphylococcus aureus (principal); N17.0 Acute kidney failure with tubular necrosis; T83.511A Infection and inflammatory reaction due to indwelling urethral catheter, initial encounter; L03.116 Cellulitis of left lower limb; G82.20 Paraplegia, unspecified; I50.32 Chronic diastolic (congestive) heart failure; Z68.41 Body mass index [BMI] 40.0-44.9, adult; I13.0 Hypertensive heart and chronic kidney disease with heart failure and stage 1 through stage 4 chronic kidney disease, or unspecified chronic kidney disease; L97.823 Non-pressure chronic ulcer of other part of left lower leg with necrosis of muscle; I48.20 Chronic atrial fibrillation, unspecified; L97.419 Non-pressure chronic ulcer of right heel and midfoot with unspecified severity; L02.416 Cutaneous abscess of left lower limb; E87.1 Hypo-osmolality and hyponatremia; N39.0 Urinary tract infection, site not specified; M86.172 Other acute osteomyelitis, left ankle and foot; N18.30 Chronic kidney disease, stage 3 unspecified; E11.69 Type 2 diabetes mellitus with other specified complication; E11.621 Type 2 diabetes mellitus with foot ulcer; E11.22 Type 2 diabetes mellitus with diabetic chronic kidney disease; E11.65 Type 2 diabetes mellitus with hyperglycemia; E11.40 Type 2 diabetes mellitus with diabetic neuropathy, unspecified; E11.622 Type 2 diabetes mellitus with other skin ulcer; E11.610 Type 2 diabetes mellitus with diabetic neuropathic arthropathy; D63.1 Anemia in chronic kidney disease; M10.9 Gout, unspecified; K59.00 Constipation, unspecified; E83.42 Hypomagnesemia; K21.9 Gastro-esophageal reflux disease without esophagitis; E78.00 Pure hypercholesterolemia, unspecified; E03.9 Hypothyroidism, unspecified; E66.9 Obesity, unspecified; B96.89 Other specified bacterial agents as the cause of diseases classified elsewhere; R31.29 Other microscopic hematuria; Z79.4 Long term (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; Z88.8 Allergy status to other drugs, medicaments and biological substances; Z79.01 Long term (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 anticoagulants; Z86.14 Personal history of Methicillin resistant Staphylococcus aureus infection; Z87.891 Personal history of nicotine dependence; Z79.899 Other long term (current) drug therapy; Z79.890 Hormone replacement therapy; Z20.822 Contact with and (suspected) exposure to COVID-19
CPT/HCPCS: 11042; 11043; 36415; 36569; 51702; 71045; 74018; 74176; 76770; 80048; 80053; 80069; 80202; 81001; 82550; 82947; 83036; 83605; 83735; 83880; 84100; 85014; 85018; 85025; 85610; 85730; 86021; 86038; 86140; 86160; 86225; 86430; 87040; 87070; 87075; 87077; 87086; 87088; 87186; 87205; 87635; 87804; 88304; 88305; 88311; 93005; 93926; 93970; 93971; 96365; 96366; 99213; 99285; A4216; J0282; J0360; J0692; J0696; J1815; J1940; J2250; J2270; J2371; J2405; J2704; J2920; J2930; J3010; J3475; J7030; J7040; J7050; J7060; P9047

== ENCOUNTER 2022-10-24 16:33 | Emergency (ER) | payer MEDICARE ==
--- OUTSIDE RECORDS SUMMARY | 2022-10-24 16:42 | XMS REPORT | Continuity of Care Document ---
:1965 Author Organization [facility] t Address [address] [place] [address] Care Team Providers Name Role Phone Priya Baltazar MD, William Primary Care Physician [phone] Ramon Powers Attending Clinician Unavailable Shilo_capo Attending Clinician Unavailable Mychal Fuentes Attending Clinician Wilner Elise Attending Clinician Duyen Godfrey Attending Clinician Roxana Attending Clinician Unavailable Terrell Amato MD Attending Clinician Avis Jackson Attending Clinician Nell Franco Attending Clinician MICHELLE Attending Clinician Unavailable Mandeep Parks Attending Clinician [...] REPLACEMENT HMO) [employer] C1 [id number] Common [facility] Problems Condition Condition Condition Status Onset Resolution Last Treating Co mments Source Name Details Category Date Date Treatment Clinician Date ACUTE ACUTE Diagnosis Active 2020-06-27 [facility] CHEST PAIN CHEST PAIN 06-14 21:53:00 l Active 00:00: Sharon 06/14/2020 [facility] CHEST PAIN CHEST Diagnosis Active 2020-06-14 [facility] PAIN 06-14 23:21:00 l Active 00:00: Sharon 06/14/2020 00 [facility] DM2 DM2 Disease Recurre [facility] (diabetes (diabetes nce [facility] mellitus, mellitus, 00:00: [facility] timothy type 2) type 2) 00 Center Epididymit Epididymit Disease Active [facility] is, left is, left 4-24 [facility]: Medical 00 [place] HTN HTN Disease Active [facility] (hypertens [...] Memoria 06/20/201306-20 01:18:00 l [facility] 00:00: Sharon 00 NO ORDERS NO ORDERS Diagnosis Active 2013-11-08 Memoria WRITTEN WRITTEN 05-24 01:18:00 l Active 00:00: Sharon 05/24/2013 00 [facility] NEUROGENIC NEUROGENI Diagnosis Active 2014-07-28 Memoria BLADDER C BLADDER 04-19 16:13:00 l Active 00:00: Shady 04/19/2013 00 [facility] TBI TBI Diagnosis Active 2013-12-12 [facility] oria Active 03-09 12:27:00 l 03/09/2000 23:59: Jose barajas [facility] 00 SCI SCI Diagnosis Active 2014-09-13 Mem oria Active 03-09 16:37:00 l 03/09/2000 08:00: Jose barajas [facility] 00 [id number] Bladder Problem Common calculus [facility] Neurogenic Neurogenic Problem C ommon bladder bladder [facility] Paraplegia Paraplegic Problem C ommon spinal Spirit paralysis [facility] [id number] Gross Problem Common hematuria [facility] [id number] Neurogenic Problem Co mmon bladder, Spirit flaccid [facility] [id number] Trauma of Problem Comm on urethra, Spirit initial - [facility] [id number] Complicate Problem Com mon d UTI [facility] (urinary - [facility] tract [facility] infection) [facility] Diabetes(C Diabetes( Problem Active 2014-02-22 Memoria onfirmed) Confirmed) 19:04:26 l Active Shady Problem 02/22/2014 [facility] GOUT(Confi GOUT(Conf Problem Active 2014-02-22 Memoria rmed) irmed) 19:04:26 l Active Shady Problem 02/22/2014 [facility] Pure Pure Problem Active 2014-02-22 Memor ia hyperchole hyperchole 19:04:26 l sterolemia sterolemia He rmann (disorder) (disorder) Active Problem 02/22/2014 [facility] Impotence Impotence Problem Active 2020-06-17 Memoria (disorder) (disorder) 22:29:12 l Active Sharon Problem 06/17/2020 [facility] Spinal Spinal Problem Active 2020-06-17 Brandon karina cord cord 22:29:12 l injury injury Shady (disorder) (disorder) Active Problem 06/17/2020 [facility] CHEST CHEST Diagnosis Active 2020-06-27 Mem oria PAIN, PAIN, 21:53:00 l UNSPECIFIE UNSPECIFIE He rmann D D Active [facility] ILLNESS, ILLNESS, Diagnosis Active 2020-06-14 Memoria UNSPECIFIE UNSPECIFIE 23:21:00 l D D Active Sharon [facility] Spinal Spinal Problem Resolve 2020-06-17 2020-06-17 Memoria cord cord d 11-15 22:29:12 22:29:12 l stroke stroke 00:00: Shady (disorder) (disorder) 00 Resolved 11/15/2013 Problem 06/17/2020 apr 19 2013 [facility] Diabetes Diabetes Problem Resolve 2020-06-17 2020-06-17 Memoria mellitus mellitus d 07-08 22:29:12 22:29:12 l (disorder) (disorder) 00:00: He rmann Resolved 00 07/08/2013 Problem 06/17/2020 [facility] GOUT(Confi Problem Resolve 2020-06-17 2020-06-17 Memoria rmed) GOUT(Confi d 07-08 22:29:12 22:29:12 l rmed) 00:00: Sharon Resolved 00 07/08/2013 Problem 06/17/2020 [facility] Hyperchole Problem Resolve 2020-06-17 2020-06-17 Memoria sterolemia Hyperchole d 07-08 22:29:12 22:29:12 l (disorder) sterolemia 00:00: He rmann (disorder) 00 Resolved 07/08/2013 Problem 06/17/2020 [facility] Essential Essential Problem Resolve 2020-06-17 2020-06-17 Memoria hypertensi hypertensi d 07-08 22:29:12 22:29:12 l on on 00:00: Shady (disorder) (disorder) 00 Resolved 07/08/2013 Problem 06/17/2020 [facility] Allergies, Adverse Reactions, Alerts Allergy Allergy Status [...] Stop Date Source Natural brother Kidney disease [facility] Natural mother Diabetes [facility] Natural sister Diabetes [facility] Social History Social Habit Start Date Stop Date Quantity Comments Source Gender [facility] of Tobacco [facility] - Use [facility] Sex Assigned At Common Sp lady - [facility] History of Social 2021-09-19 2021-09-[address] function 00:00:00 00:00:00 Hospital Tobacco use and 2021-09-19 2021-09-19 Smokeless [facility] 00:00:00 00:00:00 tobacco non-user Hospital Alcohol intake 2016-07-01 2016-07-01 Current [facility] 00:00:00 00:00:00 non-drinker of Medical Ce nter alcohol (finding) Social History 2013-04-20 2013-04-20 [facility] 11:02:37 11:02:37 Sex Ass[birth year] At [birth year] [facility] 00:00:00 [facility]:00 [facility] Center Smoking Status Start Date Stop Date Source Never Smoker [facility] Ce nter Tobacco smoking [facility] consumption unknown Ex-smoker 2016-07-01 00:00:00 2016-07-01 [facility] 00:00:00 Center Medications Ordered Filled Start [...] times a l tablet day with meals. dexamethaso 2022-0 Yes 1mg Q.5D Take 1 mg M ethodi ne 7-[address] (DECADRON) 18:31: (two) Hospit a 0.5 MG 02 times a l tablet day with meals. ciprofloxac 2022-0 Yes 750mg Q.5D Take 750 M ethodi in HCl 7-[address] (CIPRO) 750 18:31: mouth 2 Hos vee MG tablet 02 (two) l times a day. colchicine 2022-0 2022- No .6mg QD Take 1 Meth segundo 0.6 mg 7-14 08-[address] tablet 00:00: 04:59 (0.6 mg Hospita 00 :00 total) by l mouth daily for 30 days. colchicine 2022-0 2022- No .6mg QD Take 1 Meth segundo 0.6 mg 7-14 08-[address] tablet 00:00: 04:59 (0.6 mg Hospita 00 :00 total) by l mouth daily for 30 days. colchicine 2022-0 2022- No .6mg QD Take 1 Meth segundo 0.6 mg 7-14 08-[address] tablet 00:00: 04:59 (0.6 mg Hospita 00 :00 total) by l mouth daily for 30 days. colchicine 2022-0 2022- No .6mg QD Take 1 Meth segundo 0.6 mg 7-14 08-[address] tablet 00:00: 04:59 (0.6 mg Hospita 00 :00 total) by l mouth daily for 30 days. Cefdinir Cefdinir 2020-03 BID 300 MG 300 MG 03-13 00:00: 00:00 00 : atorvastati No Notes: Brandon karina n 4-10 [...] day, # 14 cap, 0 Refill(s), Pharmacy: [facility], 172.72, cm, 06/14/20 23:37:00 CDT, Height, 106.545, kg, 06/14/20 23:37:00 CDT, Weight cefdinir Yes 300 mg = 1 Mem oria 300 MG Oral 4-09 cap, PO, l Capsule 22:52: Q12H, X 7 Love nn 00 day, # 14 cap, 0 Refill(s), Pharmacy: [facility], 172.72, cm, 06/14/20 23:37:00 CDT, Height, 106.545, kg, 06/14/20 23:37:00 CDT, Weight cefdinir Yes 300 mg = 1 Mem oria 300 MG Oral 4-09 cap, PO, l Capsule 22:52: Q12H, X 7 Love nn 00 day, # 14 cap, 0 Refill(s), Pharmacy: [facility], 172.72, cm, 06/14/20 23:37:00 CDT, Height, 106.545, kg, 06/14/20 23:37:00 CDT, Weight cefdinir 1-0 Yes 300 mg = 1 Mem oria 300 MG Oral 4-09 cap, PO, l Capsule 22:52: Q12H, X 7 Love nn 00 day, # 14 cap, 0 Refill(s), Pharmacy: [facility], 172.72, cm, 06/14/20 23:37:00 CDT, Height, 106.545, kg, 06/14/20 23:37:00 CDT, Weight cefdinir 1-0 Yes 300 mg = 1 Mem oria 300 MG Oral 4-09 cap, PO, l Capsule 22:52: Q12H, X 7 Love nn 00 day, # 14 cap, 0 Refill(s), Pharmacy: [facility], 172.72, cm, 06/14/20 23:37:00 CDT, Height, 106.545, kg, 06/14/20 23:37:00 CDT, Weight cefdinir 1-0 Yes 300 mg = 1 Mem oria 300 MG Oral 4-09 cap, PO, l Capsule 22:52: Q12H, X 7 Love nn 00 day, # 14 cap, 0 Refill(s), Pharmacy: [facility], 172.72, cm, 06/14/20 23:37:00 CDT, Height, 106.545, kg, 06/14/20 23:37:00 CDT, Weight Colchicine 2021-0 Yes 0.6 mg = 1 M emoria 0.6 MG Oral 4-09 tab, PO, l Tablet 22:36: BID, 0 Shady 00 Refill(s) pravastatin 2020-0 Yes 20 mg = 1 M emoria 20 mg oral 4-09 tab, PO, l tablet 22:36: Bedtime, # Love nn 00 90 tab, 0 Refill(s), Pharmacy: [facility], 172.72, cm, 06/14/20 23:37:00 CDT, Height, 106.545, kg, 06/14/20 23:37:00 CDT, Weight pantoprazol Yes 40 mg = 1 M emoria e 40 mg 4-09 tab, PO, l oral 22:36: Before Shady enteric 00 Breakfast, coated # 30 tab, tablet 0 Refill(s), Pharmacy: [facility], 172.72, cm, 06/14/20 23:37:00 CDT, Height, 106.545, kg, 06/14/20 23:37:00 CDT, Weight { Yes See Memoria (Methylpred 4-09 Instructio l nisolone 4 22:36: ns, PO, Herm yogesh MG Oral 00 Take by Tablet mouth as [Medrol]) } directed Pack on label., [Medrol X 6 day, # Dosepak] 21 tab, 0 Refill(s), Pharmacy: [facility], 172.72, cm, 06/14/20 23:37:00 [...] nn 00 90 tab, 0 Refill(s), Pharmacy: [facility], 172.72, cm, 06/14/20 23:37:00 CDT, Height, 106.545, kg, 06/14/20 23:37:00 CDT, Weight pantoprazol 0 Yes 40 mg = 1 M emoria e 40 mg 4-09 tab, PO, l oral 22:36: Before Shady enteric 00 Breakfast, coated # 30 tab, tablet 0 Refill(s), Pharmacy: [facility], 172.72, cm, 06/14/20 23:37:00 CDT, Height, 106.545, kg, 06/14/20 23:37:00 CDT, Weight { Yes See Memoria (Methylpred 4-09 Instructio l nisolone 4 22:36: ns, PO, Herm yogesh MG Oral 00 Take by Tablet mouth as [Medrol]) } directed Pack on label., [Medrol X 6 day, # Dosepak] 21 tab, 0 Refill(s), Pharmacy: [facility], 172.72, cm, 06/14/20 23:37:00 [...] nn 00 90 tab, 0 Refill(s), Pharmacy: [facility], 172.72, cm, 06/14/20 23:37:00 CDT, Height, 106.545, kg, 06/14/20 23:37:00 CDT, Weight pantoprazol Yes 40 mg = 1 M emoria e 40 mg 4-09 tab, PO, l oral 22:36: Before Shady enteric 00 Breakfast, coated # 30 tab, tablet 0 Refill(s), Pharmacy: [facility], 172.72, cm, 06/14/20 23:37:00 CDT, Height, 106.545, kg, 06/14/20 23:37:00 CDT, Weight { Yes See Memoria (Methylpred 4-09 Instructio l nisolone 4 22:36: ns, PO, Herm yogesh MG Oral 00 Take by Tablet mouth as [Medrol]) } directed Pack on label., [Medrol X 6 day, # Dosepak] 21 tab, 0 Refill(s), Pharmacy: [facility], 172.72, cm, 06/14/20 23:37:00 CDT, Height, 106.545, kg, 06/14/20 23:37:00 CDT, Weight Colchicine 2020- Yes 0.6 mg = 1 M emoria 0.6 MG Oral 4-09 tab, PO, l Tablet 22:36: BID, 0 Sharon 00 Refill(s) pravastatin 0 Yes 20 mg = 1 M emoria 20 mg oral 4-09 tab, PO, l tablet 22:36: Bedtime, # Love nn 00 90 tab, 0 Refill(s), Pharmacy: [facility], 172.72, cm, 06/14/20 23:37:00 CDT, Height, 106.545, kg, 06/14/20 23:37:00 CDT, Weight pantoprazol 0 Yes 40 mg = 1 M emoria e 40 mg 4-09 tab, PO, l oral 22:36: Before Shady enteric 00 Breakfast, coated # 30 tab, tablet 0 Refill(s), Pharmacy: [facility], 172.72, cm, 06/14/20 23:37:00 CDT, Height, 106.545, kg, 06/14/20 23:37:00 CDT, Weight { Yes See Memoria (Methylpred 4-09 Instructio l nisolone 4 22:36: ns, PO, Herm yogesh MG Oral 00 Take by Tablet mouth as [Medrol]) } directed Pack on label., [Medrol X 6 day, # Dosepak] 21 tab, 0 Refill(s), Pharmacy: [facility], 172.72, cm, 06/14/20 23:37:00 CDT, Height, 106.545, kg, 06/14/20 23:37:00 CDT, Weight Colchicine 0 Yes 0.6 mg = 1 M emoria 0.6 MG Oral 4-09 tab, PO, l Tablet 22:36: BID, 0 Shady 00 Refill(s) pravastatin 2020-0 Yes 20 mg = 1 M emoria 20 mg oral 4-09 tab, PO, l tablet 22:36: Bedtime, # Love nn 00 90 tab, 0 Refill(s), Pharmacy: [facility], 172.72, cm, 06/14/20 23:37:00 CDT, Height, 106.545, kg, 06/14/20 23:37:00 CDT, Weight pantoprazol 0 Yes 40 mg = 1 M emoria e 40 mg 4-09 tab, PO, l oral 22:36: Before Sharon enteric 00 Breakfast, coated # 30 tab, tablet 0 Refill(s), Pharmacy: [facility], 172.72, cm, 06/14/20 23:37:00 CDT, Height, 106.545, kg, 06/14/20 23:37:00 CDT, Weight { Yes See Memoria (Methylpred 4-09 Instructio l nisolone 4 22:36: ns, PO, Herm yogesh MG Oral 00 Take by Tablet mouth as [Medrol]) } directed Pack on label., [Medrol X 6 day, # Dosepak] 21 tab, 0 Refill(s), Pharmacy: [facility], 172.72, cm, 06/14/20 23:37:00 [...] nn 00 90 tab, 0 Refill(s), Pharmacy: [facility], 172.72, cm, 06/14/20 23:37:00 CDT, Height, 106.545, kg, 06/14/20 23:37:00 CDT, Weight pantoprazol Yes 40 mg = 1 M emoria e 40 mg 4-09 tab, PO, l oral 22:36: Before Sharon enteric 00 Breakfast, coated # 30 tab, tablet 0 Refill(s), Pharmacy: [facility], 172.72, cm, 06/14/20 23:37:00 CDT, Height, 106.545, kg, 06/14/20 23:37:00 CDT, Weight { Yes See Memoria (Methylpred 4-09 Instructio l nisolone 4 22:36: ns, PO, Herm yogesh MG Oral 00 Take by Tablet mouth as [Medrol]) } directed Pack on label., [Medrol X 6 day, # Dosepak] 21 tab, 0 Refill(s), Pharmacy: [facility], 172.72, cm, 06/14/20 23:37:00 CDT, Height, 106.545, kg, 06/14/20 23:37:00 CDT, Weight NovoLog 0 No 30 unit, Memori a 06-15 Route: l 21:30: SUB-Q, Shady 00 TID-Before Meals, Dosing Weight 106.545, kg, Start date: 06/15/20 16:30:00 CDT, Duration: 30 day, Stop date: 07/15/20 11:30:00 CDT Humalog No Notes: Memoria 06-15 (Same as: l 21:30: Humalog) Sharon 00 Roll in palms of hands gently; [...] Memori a 06-15 Route: l 21:30: SUB-Q, Sharon 00 TID-Before Meals, Dosing Weight 106.545, kg, Start date: 06/15/20 16:30:00 CDT, Duration: 30 day, Stop date: 07/15/20 11:30:00 CDT Humalog No Notes: Memoria 4- (Same as: l 21:30: Humalog) Sharon 00 Roll in palms of hands gently; Do not shake vigorously . WASTE: F/P - Black; E - Municipal Trash Bin Stable for 28 days at room temperatur e. Expires in days from ____Date NovoLog No 30 unit, Memori a 4 Route: l 21:30: SUB-Q, Sharon 00 TID-Before Meals, Dosing Weight 106.545, kg, Start date: 06/15/20 16:30:00 CDT, Duration: 30 day, Stop date: 07/15/20 11:30:00 CDT Humalog No Notes: Memoria - (Same as: l 21:30: Humalog) Roll in [...] 1000 mg Product Wasted: ___ mg Ceftriaxone 0 No Notes: Brandon karina 4- (Same As: l 21:00: Rocephin). Use with 100 mL NS and infuse over 30 min MEDICATION WASTE Product Size: 1000 mg Product Wasted: ___ mg Ceftriaxone 0 No Notes: Brandon karina 4- (Same As: l 21:00: Rocephin). Use with 100 mL NS and infuse over 30 min MEDICATION WASTE Product Size: 1000 mg Product Wasted: ___ mg Ceftriaxone 0 No Notes: Brandon kraina 4- (Same As: l 21:00: Rocephin). Shady 00 Use with 100 mL NS and infuse over 30 min MEDICATION WASTE Product Size: 1000 mg Product Wasted: ___ mg Ceftriaxone 0 No Notes: Brandon karina 4-09 (Same As: l 21:00: Rocephin). Sharon 00 Use with 100 mL NS and infuse over 30 min MEDICATION WASTE Product Size: 1000 mg Product Wasted: ___ mg Insulin No Notes: Memoria Glargine 4- (Same as: l 15:00: Lantus) Do Sharon not hold insulin without contacting prescriber WASTE: F/P - Black; E - Municipal Trash Bin "single patient use only" Stable for 28 days at room temperatur e Expires in days from ____Date Insulin No Notes: Memoria Glargine 4- (Same as: l 15:00: Lantus) Do Shady not hold insulin without contacting prescriber WASTE: F/P - Black; E - Municipal Trash Bin "single patient use only" Stable for 28 days at room temperatur e Expires in days from ____Date Insulin No Notes: Memoria Glargine 4- (Same as: l 15:00: Lantus) Do Sharon not hold insulin without contacting prescriber WASTE: F/P - Black; E - Municipal Trash Bin "single patient use only" Stable for 28 days at room temperatur e Expires in days from ____Date Insulin No Notes: Memoria Glargine 4- (Same as: l 15:00: Lantus) Do Shady not hold insulin without contacting prescriber WASTE: F/P - Black; E - Municipal Trash Bin "single patient use only" Stable for 28 days at room temperatur e Expires in days from ____Date Insulin No Notes: Memoria Glargine 4- (Same as: l 15:00: Lantus) Do Shady not hold insulin without contacting prescriber WASTE: F/P - Black; E - Municipal Trash Bin "single patient use only" Stable for 28 days at room temperatur e Expires in days from ____Date Insulin No Notes: Memoria Glargine 4-09 (Same as: l 15:00: Lantus) Do Sharon 00 not hold insulin without contacting prescriber WASTE: F/P - Black; E - Municipal Trash Bin "single patient use only" Stable for 28 days at room temperatur e Expires in days from ____Date Protonix No Notes: Memoria 4-09 Tablet l 14:28: should not Sharon 00 be chewed or crushed. (Same as: Protonix) ketOROLAC 2020-0 No 4 days Memor ia 30 mg/mL 4-09 l injectable 14:28: MEDICATION H ermann solution 00 WASTE Product Size: 30 mg Product Wasted: ___ mg Protonix No Notes: Memoria 4-09 Tablet l 14:28: should not Sharon 00 be chewed or crushed. (Same as: [...] Memoria 4-09 Tablet l 14:28: should not Sharon 00 be chewed or crushed. (Same as: Protonix) ketOROLAC 2020-0 No 4 days Memor ia 30 mg/mL 4-09 l injectable 14:28: MEDICATION H ermann solution 00 WASTE Product Size: 30 mg Product Wasted: ___ mg Protonix 2020-0 No Notes: Memoria 4-09 Tablet l 14:28: should not Shady 00 be chewed or crushed. (Same as: Protonix) ketOROLAC 2021-0 No 4 days Memor ia 30 mg/mL 4-09 l injectable 14:28: MEDICATION H ermann solution 00 WASTE Product Size: 30 mg Product Wasted: ___ mg Protonix No Notes: Memoria 4-09 Tablet l 14:28: should not Sharon 00 be chewed or crushed. (Same as: [...] handling procedure PPE Matrix Fenofibrate No Notes: Brandno karina 160 MG Oral - Non-Formul l Tablet 14:00: noe Drug (Same [...] a -09 Take 1 l 14:00: hour Sharon 00 before or 2 hours after meal; [...] 4-09 Hazardous l Tablet 14:00: Drug Group Lvoe nn 3:Reproduc tive risk Hazardous Drug -- Refer to safe handling procedure PPE Matrix Fenofibrate No Notes: Brandon karina 160 MG Oral 4-09 Non-Formul l Tablet 14:00: noe Drug Sharon 00 (Same as: Tricor) Furosemide No Notes: Memor ia 20 MG Oral 4-09 (Same as: l Tablet 14:00: Lasix) July cause GI upset. Give with food or milk. insulin No 40 unit, Memori a detemir - Route: l 14:00: SUB-Q, Sharon 00 Drug form: SOLN, Q12H, Dosing Weight [...] a detemir 4-09 Route: l 14:00: SUB-Q, Sharon 00 Drug form: SOLN, Q12H, Dosing Weight 106.545, kg, Start date: 06/15/20 9:00:00 CDT, Duration: 30 day, Stop date: 07/14/20 21:00:00 CDT Thyroxine No Notes: Memori a 4-09 Take 1 l 14:00: hour Sharon 00 before or 2 hours after meal; [...] a 4-09 Take 1 l 14:00: hour Sharon 00 before or 2 hours after meal; Enteral feeds may interefere with the absorption of this medication . (Same as:Synthro id, Levothroid ) Aspirin 81 No Notes: Memor ia MG Chewable 4-09 Take with l Tablet 14:00: food. Saline No Notes: Memoria Flush 0.9% 4-09 (Same as: l 14:00: BD Sharon 00 Posiflush) Colchicine No Notes: Memor ia 0.6 MG Oral 4-09 Hazardous l Tablet 14:00: Drug Group Love nn 3:Reproduc tive risk Hazardous Drug -- Refer to safe handling procedure PPE Matrix Fenofibrate No Notes: Brandon karina 160 MG Oral 4-09 Non-Formul l Tablet 14:00: noe Drug Sharon 00 (Same as: Tricor) Furosemide No Notes: Memor ia 20 MG Oral 4-09 (Same as: l Tablet 14:00: Lasix) July cause GI upset. Give with food or milk. insulin No 40 unit, Memori a detemir - Route: l 14:00: SUB-Q, Sharon 00 Drug form: SOLN, Q12H, Dosing Weight [...] 4-09 Non-Formul l Tablet 14:00: noe Drug Sharon 00 (Same as: Tricor) Furosemide No Notes: Memor ia 20 MG Oral 4-09 (Same as: l Tablet 14:00: Lasix) May Love cause GI upset. Give with food or milk. insulin No 40 unit, Memori a detemir 06-15 Route: l 14:00: SUB-Q, Sharon 00 Drug form: SOLN, Q12H, Dosing Weight 106.545, kg, Start date: 06/15/20 9:00:00 CDT, Duration: 30 day, Stop date: 07/14/20 21:00:00 CDT Thyroxine No Notes: Memori a 06-15 Take 1 l 14:00: hour Shady 00 before or 2 hours after meal; Enteral feeds may interefere with the absorption of this medication . (Same as:Synthro id, Levothroid ) Aspirin 81 No Notes: Memor ia MG Chewable 06-15 Take with l Tablet 14:00: food. Sharon 00 Saline No Notes: Memoria Flush 0.9% 06-15 (Same as: l 14:00: BD Posiflush) BD Normal No Notes: Memori a Saline 06-15 (Same as: l Flush 12:44: BD Sharon 00 Posiflush) Sodium No 25 mL, Memoria Chloride 06-15 Route: IV, l 0.9% IV 12:44: Start date: 06/15/20 7:44:00 CDT, Duration: 30 day, Stop date: 07/15/20 7:43:00 CDT, PRN Line Flush, 0 BD Normal No Notes: Memori a Saline 06-15 (Same as: l Flush 12:44: BD Sharon 00 Posiflush) Sodium No 25 mL, Memoria Chloride 06-15 Route: IV, l 0.9% IV 12:44: Start date: 06/15/20 7:44:00 CDT, Duration: 30 day, Stop date: 07/15/20 7:43:00 CDT, PRN Line Flush, 0 BD Normal No Notes: Memori a Saline 06-15 (Same as: l Flush 12:44: BD Sharon 00 Posiflush) Sodium No 25 mL, Memoria Chloride 06-15 Route: IV, l 0.9% IV 12:44: Start Sharon date: 06/15/20 7:44:00 CDT, Duration: 30 day, [...] a Saline 4- (Same as: l Flush 12:43: BD Shady 00 Posiflush) BD Normal No Notes: Memori a Saline - (Same as: l Flush 12:43: BD Shady 00 Posiflush) BD Normal No Notes: Memori a Saline 4-09 (Same as: l Flush 12:43: BD Sharon 00 Posiflush) BD Normal No Notes: Memori a Saline - (Same as: l Flush 12:43: BD Shady Posiflush) BD Normal No Notes: Memori a Saline - (Same as: l Flush 12:43: BD Shady Posiflush) BD Normal No Notes: Memori a Saline - (Same as: l Flush 12:43: BD Shady Posiflush) Dextrose No 12.5 gm, Memor ia 50% Syringe 06-15 25 mL, l (D50W) 12:36: Route: Sharon IVP, Drug Form: INJ, Dosing Weight 106.545, [...] 06-15 25 mL, l (D50W) 12:36: Route: Sharon 00 IVP, Drug Form: INJ, Dosing Weight [...] Lispro - (Same as: l 12:36: Humalog) Sharon Roll in palms of hands gently; Do not shake vigorously . WASTE: F/P - Black; E - Municipal Trash Bin Stable for 28 days at room temperatur e. Expires in days from ____Date Dextrose 0 No 12.5 gm, Memor ia 50% Syringe 06-15 25 mL, l (D50W) 12:36: Route: Sharon 00 IVP, Drug Form: INJ, Dosing Weight [...] Lispro - (Same as: l 12:36: Humalog) Sharon 00 Roll in palms of hands gently; [...] Lispro 06-15 (Same as: l 12:36: Humalog) Sharon 00 Roll in palms of hands gently; [...] 06-15 Route: IM, l 12:36: Drug form: Sharon 00 PDR/INJ, PRN, Dosing Weight 106.545, kg, [...] Memoria 06-15 Same as l 09:18: Dilaudid Sharon 00 Dilaudid No Notes: Memoria 06-15 Same as l 09:18: Dilaudid Sharon 00 Dilaudid 0 No Notes: Memoria 06-15 Same as l 09:18: Dilaudid Shady 00 Dilaudid No Notes: Memoria 06-15 Same as l 09:18: Dilaudid Sharon 00 Dilaudid No Notes: Memoria 06-15 Same as l 09:18: Dilaudid Sharon 00 Dilaudid No Notes: Memoria 06-15 Same as l 09:18: Dilaudid Shady 00 Nitroglycer No Notes: Brandon karina in 06-15 (Same l 05:09: as:Nitroqu Sharon 00 ick, Nitrostat) "Do Not Crush" Sublingual tablet Saline No Notes: Memoria Flush 0.9% 06-15 (Same as: l 05:09: BD Sharon 00 Posiflush) Nitroglycer No Notes: Brandon karina in 06-15 (Same l 05:09: as:Nitroqu Sharon 00 ick, Nitrostat) "Do Not Crush" Sublingual tablet Saline No Notes: Memoria Flush 0.9% 06-15 (Same as: l 05:09: BD Shady 00 Posiflush) Nitroglycer No Notes: Brandon karina in 06-15 (Same l 05:09: as:Nitroqu Sharon 00 ick, Nitrostat) "Do Not Crush" Sublingual tablet Saline No Notes: Memoria Flush 0.9% 06-15 (Same as: l 05:09: BD Shady 00 Posiflush) Nitroglycer No Notes: Brandon karina in 06-15 (Same l 05:09: as:Nitroqu Shady 00 ick, Nitrostat) "Do Not Crush" Sublingual tablet Saline No Notes: Memoria Flush 0.9% 06-15 (Same as: l 05:09: BD Sharon 00 Posiflush) Nitroglycer No Notes: Brandon karina in 06-15 (Same l 05:09: as:Nitroqu Sharon 00 ick, Nitrostat) "Do Not Crush" Sublingual tablet Saline No Notes: Memoria Flush 0.9% 06-15 (Same as: l 05:09: BD Sharon 00 Posiflush) Nitroglycer No Notes: Brandon karina in 06-15 (Same l 05:09: as:Nitroqu Sharon 00 ick, Nitrostat) "Do Not Crush" Sublingual tablet Saline No Notes: Memoria Flush 0.9% 06-15 (Same as: l 05:09: BD Shady 00 Posiflush) lisinopril No 40 mg = 1 Me moria 40 mg oral 4-09 tab, PO, l tablet 05:00: Daily, 0 Shady 00 Refill(s) lisinopril 2020-0 No 40 mg = 1 Me moria 40 mg oral 4-09 tab, PO, l tablet 05:00: Daily, 0 Sharon 00 Refill(s) lisinopril 2020-0 No 40 mg = 1 Me moria 40 mg oral 4-09 tab, PO, l tablet 05:00: Daily, 0 Shady 00 Refill(s) lisinopril 2020-0 No 40 mg = 1 Me moria 40 mg oral 4-09 tab, PO, l tablet 05:00: Daily, 0 Sharon 00 Refill(s) lisinopril 2020-0 No 40 mg = 1 Me moria 40 mg oral 4-09 tab, PO, l tablet 05:00: Daily, 0 Sharon 00 Refill(s) lisinopril 2020-0 No 40 mg = 1 Me moria 40 mg oral 4-09 tab, PO, l tablet 05:00: Daily, 0 Shady 00 Refill(s) NovoLog 2020-0 Yes See Memoria 06-15 Instructio l 04:58: ns, 30 U Sharon 00 SUB-Q TID-Before Meals, 0 Refill(s) NovoLog 2020-0 Yes See Memoria 06-15 Instructio l 04:58: ns, 30 U Sharon 00 SUB-Q TID-Before Meals, 0 Refill(s) NovoLog [...] 06-15 Instructio l 04:58: ns, 30 U Sharon 00 SUB-Q TID-Before Meals, 0 Refill(s) insulin 2020-0 Yes See Memoria detemir 100 4-09 Instructio l UNT/ML 04:57: ns, 40U Shady Injectable 00 BID SUB-Q, Solution 0 [Levemir] Refill(s) insulin Yes See Memoria detemir 100 4-09 Instructio l UNT/ML 04:57: ns, 40U Sharon Injectable 00 BID SUB-Q, Solution 0 [Levemir] Refill(s) insulin Yes See Memoria detemir 100 4-09 Instructio l UNT/ML 04:57: ns, 40U Sharon Injectable 00 BID SUB-Q, Solution 0 [Levemir] Refill(s) insulin Yes See Memoria detemir 100 4-09 Instructio l UNT/ML 04:57: ns, 40U Sharon Injectable 00 BID SUB-Q, Solution 0 [Levemir] Refill(s) insulin Yes See Memoria detemir 100 4-09 Instructio l UNT/ML 04:57: ns, 40U Sharon Injectable 00 BID SUB-Q, Solution 0 [Levemir] [...] karina 4-09 Daily, 0 l 04:56: Refill(s) Sharon levothyroxi Yes 75 Memori a ne 75 mcg 4-09 microgram l (0.075 mg) 04:56: = 1 tab, Her minor oral tablet 00 PO, Daily, 0 Refill(s) Aspirin Yes 81 mg, PO, Brandon karina 4-09 Daily, 0 l 04:56: Refill(s) Sharon levothyroxi Yes 75 Memori a ne 75 [...] tablet 00 PO, Daily, 0 Refill(s) Aspirin 2020-0 Yes 81 mg, PO, Brandon karina 4-09 Daily, 0 l 04:56: Refill(s) levothyroxi Yes 75 Memori a ne 75 mcg 4-09 microgram l (0.075 mg) 04:56: = 1 tab, Her minor oral tablet 00 PO, Daily, 0 Refill(s) Aspirin 2020-0 Yes 81 mg, PO, Brandon karina 4-09 [...] tab, PO, l Tablet 04:55: Daily, 0 Sharon 00 Refill(s) Furosemide 0 Yes 20 mg = 1 Me moria 20 MG Oral 4-09 tab, PO, l Tablet 04:55: Daily, 0 Shady 00 Refill(s) Fenofibrate 0 Yes 160 mg = 1 Memoria 160 MG Oral 4-09 tab, PO, l Tablet 04:55: Daily, 0 Shady Refill(s) Furosemide 2020-0 Yes 20 mg = 1 Me moria 20 MG Oral 4-09 tab, PO, l Tablet 04:55: Daily, 0 Sharon 00 Refill(s) Fenofibrate 2020- Yes 160 mg = 1 Memoria 160 MG Oral 4-09 tab, PO, l Tablet 04:55: Daily, 0 Shady 00 Refill(s) Furosemide 2020-0 Yes 20 mg = 1 Me moria 20 MG Oral 4-09 tab, PO, l Tablet 04:55: Daily, 0 Sharon 00 Refill(s) Fenofibrate 0 Yes 160 mg = 1 Memoria 160 MG Oral 4-09 tab, PO, l Tablet 04:55: Daily, 0 Sharon 00 Refill(s) Furosemide 0 Yes 20 mg = 1 Me moria 20 MG Oral 4-09 tab, PO, l Tablet 04:55: Daily, 0 Shady 00 Refill(s) Fenofibrate 0 Yes 160 mg = 1 Memoria 160 MG Oral 4-09 tab, PO, l Tablet 04:55: Daily, 0 Shady 00 Refill(s) Furosemide 0 Yes 20 mg = 1 Me moria 20 MG Oral 4-09 tab, PO, l Tablet 04:55: Daily, 0 Sharon 00 Refill(s) Fenofibrate 0 Yes 160 mg = 1 Memoria 160 MG Oral 4-09 tab, PO, l Tablet 04:55: Daily, 0 Shady 00 Refill(s) Furosemide 0 Yes 20 mg = 1 Me moria 20 MG Oral 4-09 tab, PO, l Tablet 04:55: Daily, 0 Shady 00 Refill(s) Colchicine 0 No 0.6 mg = 1 M emoria 0.6 MG Oral 4-09 tab, PO, l Tablet 04:54: BID, 0 Shady 00 Refill(s) Colchicine 0 No 0.6 mg = 1 M emoria 0.6 MG Oral 4-09 tab, PO, l Tablet 04:54: BID, 0 Shady 00 Refill(s) Colchicine 0 No 0.6 mg = 1 M emoria 0.6 MG Oral 4-09 tab, PO, l Tablet 04:54: BID, 0 Shady 00 Refill(s) Colchicine 0 No 0.6 mg = 1 M emoria 0.6 MG Oral 4-09 tab, PO, l Tablet 04:54: BID, 0 Sharon 00 Refill(s) Colchicine 0 No 0.6 mg = 1 M emoria 0.6 MG Oral 4-09 tab, PO, l Tablet 04:54: BID, 0 Sharon 00 Refill(s) Colchicine No 0.6 mg = 1 M emoria 0.6 MG Oral 4- tab, PO, l Tablet 04:54: BID, 0 Sharon 00 Refill(s) atenolol Yes 50mg QD Take [address] [facility] (TENORMIN) 4-28 by mouth [facility] 15:23: daily. [facility] tablet 08 [facility] oxybutynin Yes 5mg Q.[id number] Take [address] [facility] (DITROPAN) 4-28 [id number] by mouth [facility] 5 [facility] tablet [...] [facility] tablet 08 [facility] oxybutynin Yes 5mg Q.[id number] Take [address] [facility] (DITROPAN) 4-28 [id number] by mouth 3 [facility] 5 MG tablet [...] tablet 08 [facility] oxybutynin 2017-0 Yes 5mg Q.[id number] Take [address] [facility] (DITROPAN) 4-28 [id number] by mouth 3 [facility] 5 MG tablet [...] tablet 08 [facility] oxybutynin 2017-0 Yes 5mg Q.[id number] Take [address] [facility] (DITROPAN) 4-28 [id number] by mouth 3 [facility] 5 MG tablet [...] tablet 08 [facility] oxybutynin 2017-0 Yes 5mg Q.[id number] Take [address] [facility] (DITROPAN) 4-28 [id number] by mouth 3 [facility] 5 MG tablet [...] tablet 08 [facility] oxybutynin 2017-0 Yes 5mg Q.[id number] Take [address] [facility] (DITROPAN) 4-28 [id number] by mouth 3 [facility] 5 MG tablet [...] tab, PO, l tablet 16:46: Daily, # Sharon 00 30 tab, 0 Refill(s) Docusate Yes 100 mg = 1 Mem oria Sodium 100 5-02 cap, PO, l MG Oral 16:46: BID, Sharon Capsule 00 Constipati [Colace] on, # 20 cap, 0 Refill(s) Bisacodyl Yes 10 mg = 1 Mem oria 10 MG 5-02 supp, CA, l Rectal 16:46: Daily, Sharon Suppository 00 Constipati [Bisac-Evac on, # 10 ] supp, 0 Refill(s) Atenolol 50 Yes 50 mg = 1 M emoria MG Oral 5-02 tab, PO, l Tablet 16:46: Daily, # Sharon 00 30 tab, 0 Refill(s) allopurinol Yes [...] tab, PO, l tablet 16:46: Daily, # Sharon 00 30 tab, 0 Refill(s) Docusate Yes 100 mg = 1 Mem oria Sodium 100 5-02 cap, PO, l MG Oral 16:46: BID, Shady Capsule 00 Constipati [Colace] on, # 20 cap, 0 Refill(s) Bisacodyl Yes 10 mg = 1 Mem oria 10 MG 5-02 supp, CA, l Rectal 16:46: Daily, Shady Suppository 00 Constipati [Bisac-Evac on, # 10 ] supp, 0 Refill(s) Atenolol 50 Yes 50 mg = 1 M emoria MG Oral 5-02 tab, PO, l Tablet 16:46: Daily, # Sharon 00 30 tab, 0 Refill(s) allopurinol Yes 100 mg = 1 Memoria 100 mg oral 5-02 tab, PO, l tablet 16:46: TID, # 60 Jose n 00 tab, 0 Refill(s) 3 ML Yes sliding Memoria Insulin, 5-02 scale l Aspart, 16:46: before Sharon Human 100 00 meals, UNT/ML SUB-Q, Prefilled TID-Before Syringe Meals, # 3 [NovoLog] mL, 0 Refill(s) Senna-gen Yes Special Memor ia 8.6 mg oral 5-02 Instructio l tablet 16:46: ns: at Sharon 00 noon Ranitidine Yes 150 mg = [...] Memoria porcine 5-02 unit, l 16:46: SUB-Q, Sharon 00 Q12H, 0 Refill(s) glimepiride Yes 4 mg = 1 Me moria 4 mg oral 5-02 tab, PO, l tablet 16:46: Daily, # Sharon 00 30 tab, 0 Refill(s) Docusate Yes 100 mg = 1 Mem oria Sodium 100 5-02 cap, PO, l MG Oral 16:46: BID, Shady Capsule 00 Constipati [Colace] on, # 20 cap, 0 Refill(s) Bisacodyl Yes 10 mg = 1 Mem oria 10 MG 5-02 supp, CA, l Rectal 16:46: Daily, Sharon Suppository 00 Constipati [Bisac-Evac on, # 10 ] supp, 0 Refill(s) Atenolol 50 Yes 50 mg = 1 M emoria MG Oral 5-02 tab, PO, l Tablet 16:46: Daily, # Sharon 00 30 tab, 0 Refill(s) allopurinol Yes 100 mg = 1 Memoria 100 mg oral 5-02 tab, PO, l tablet 16:46: TID, # 60 Jose n 00 tab, 0 Refill(s) 3 ML Yes sliding Memoria Insulin, 5-02 scale l Aspart, 16:46: before Sharon Human 100 00 meals, UNT/ML SUB-Q, Prefilled TID-Before Syringe Meals, # 3 [NovoLog] mL, 0 Refill(s) Senna-gen Yes Special Memor ia 8.6 mg oral 5-02 Instructio l tablet 16:46: ns: at Sharon 00 noon Ranitidine Yes 150 mg = [...] Memoria porcine 5-02 unit, l 16:46: SUB-Q, Sharon 00 Q12H, 0 Refill(s) glimepiride Yes 4 mg = 1 Me moria 4 mg oral 5-02 tab, PO, l tablet 16:46: Daily, # Shady 00 30 tab, 0 Refill(s) Docusate Yes 100 mg = 1 Mem oria Sodium 100 5-02 cap, PO, l MG Oral 16:46: BID, Sharon Capsule 00 Constipati [Colace] on, # 20 cap, 0 Refill(s) Bisacodyl Yes 10 mg = 1 Mem oria 10 MG 5-02 supp, CA, l Rectal 16:46: Daily, Sharon Suppository 00 Constipati [Bisac-Evac on, # 10 [...] 5-02 Instructio l tablet 16:46: ns: at Sharon 00 noon Ranitidine Yes 150 mg = [...] Memoria porcine 5-02 unit, l 16:46: SUB-Q, Sharon 00 Q12H, 0 Refill(s) glimepiride Yes 4 mg = 1 Me moria 4 mg oral 5-02 tab, PO, l tablet 16:46: Daily, # Sharon 00 30 tab, 0 Refill(s) Docusate Yes 100 mg = 1 Mem oria Sodium 100 5-02 cap, PO, l MG Oral 16:46: BID, Sharon Capsule 00 Constipati [Colace] on, # 20 cap, 0 Refill(s) Bisacodyl Yes 10 mg = 1 Mem oria 10 MG 5-02 supp, CA, l Rectal 16:46: Daily, Sharon Suppository 00 Constipati [Bisac-Evac on, # 10 [...] 5-02 Instructio l tablet 16:46: ns: at Sharon 00 noon Ranitidine Yes 150 mg = [...] Memoria porcine 5-02 unit, l 16:46: SUB-Q, Sharon 00 Q12H, 0 Refill(s) glimepiride Yes 4 mg = 1 Me moria 4 mg oral 5-02 tab, PO, l tablet 16:46: Daily, # Sharon 00 30 tab, 0 Refill(s) Docusate Yes 100 mg = 1 Mem oria Sodium 100 5-02 cap, PO, l MG Oral 16:46: BID, Shady Capsule 00 Constipati [Colace] on, # 20 cap, 0 Refill(s) Bisacodyl Yes 10 mg = 1 Mem oria 10 MG 5-02 supp, CA, l Rectal 16:46: Daily, Sharon Suppository 00 Constipati [Bisac-Evac on, # 10 [...] a 300 4-14 (Same l 15:20: as:Omnipaq Sharon ue 300). Omnipaque Yes Notes: Memori a 300 4-14 (Same l 15:20: as:Omnipaq Shady ue 300). Omnipaque Yes Notes: Memori a 300 4-14 (Same l 15:20: as:Omnipaq Shady ue 300). Omnipaque Yes Notes: Memori a 300 4-14 (Same l 15:20: as:Omnipaq Sharon ue 300). Omnipaque Yes Notes: Memori a [...] pneumococcal 2013-04-21 Completed Memorial 23-valent vaccine 03:02:00 Sharon influenza virus 2013-04-21 Completed [facility] vaccine, inactivated 03:02:00 Herm yogesh pneumococcal 2013-04-21 Completed [facility] 23-valent vaccine 03:02:00 Sharon influenza virus 2013-04-21 Completed [facility] vaccine, inactivated 03:02:00 Herm yogesh pneumococcal 2013-04-21 Completed [facility] 23-valent vaccine 03:02:00 Sharon influenza virus 2013-04-21 Completed [facility] vaccine, inactivated 03:02:00 Herm yogesh pneumococcal 2013-04-21 Completed [facility] 23-valent vaccine 03:02:00 Sharon influenza virus 2013-04-21 Completed [facility] vaccine, inactivated 03:02:00 Herm yogesh pneumococcal 2013-04-21 Completed [facility] 23-valent vaccine 03:02:00 Shady influenza virus 2013-04-21 Completed Memorial vaccine, inactivated 03:02:00 Herm yogesh pneumococcal 2013-04-21 Completed [facility] 23-valent vaccine 03:02:00 Sharon influenza virus 2013-04-21 Completed [facility] vaccine, inactivated 03:02:00 Herm yogesh Vital Signs Vital Name Observation Time Observation Value Comments Source height 2022-02-13 17:15:00 68 [in_i] [facility] weight 2022-02-13 17:15:00 245 [lb_av] [facility] temperature 2022-02-13 17:15:00 98.6 [degF] [facility] bmi 2022-02-13 17:15:00 37.25 kg/m2 [facility] oximetry 2022-02-13 17:15:00 96 % [facility] respiratory rate 2022-02-13 17:15:00 16 /min Comm on [facility] blood pressure 2022-02-13 17:15:00 171 mm[Hg] [facility] - systolic [facility] blood pressure 2022-02-13 17:15:00 97 mm[Hg] [facility] - diastolic [facility] height 2022-02-06 14:30:00 68 [in_i] [facility] weight 2022-02-06 14:30:00 244 [lb_av] [facility] temperature 2022-02-06 14:30:00 98.2 [degF] [facility]mi 2022-02-06 14:30:00 37.1 kg/m2 [facility] oximetry 2022-02-06 14:30:00 97 % [facility] respiratory rate 2022-02-06 14:30:00 16 /min [facility] blood pressure 2022-02-06 14:30:00 164 mm[Hg] [facility] - [facility] blood pressure 2022-02-06 14:30:00 90 mm[Hg] [facility] - diastolic [facility] height 2021-02-11 11:20:00 68 [in_i] [facility] weight 2021-02-11 11:20:00 235 [lb_av] [facility] temperature 2021-02-11 11:20:00 98.7 [degF] Common [facility] bmi 2021-02-11 11:20:00 35.73 kg/m2 [facility] oximetry 2021-02-11 11:20:00 95 % [facility] blood pressure 2021-02-11 11:20:00 170 mm[Hg] [facility] - [facility] blood pressure 2021-02-11 11:20:00 99 mm[Hg] [facility] height 2021-01-11 08:40:00 68 [in_i] [facility] weight 2021-01-11 08:40:00 235 [lb_av] [facility] temperature 2021-01-11 08:40:00 97.8 [degF] [facility] bmi 2021-01-11 08:40:00 35.73 kg/m2 [facility] oximetry 2021-01-11 08:40:00 95 % [facility] blood pressure 2021-01-11 08:40:00 162 mm[Hg] [facility] systolic [facility] blood pressure 2021-01-11 08:40:00 90 mm[Hg] [facility] - diastolic [facility] Systolic blood 2021-09-19 22:03:00 127 mm[Hg] [facility] pressure Diastolic blood 2021-09-19 22:03:00 79 mm[Hg] [facility] pressure Heart rate 2021-09-19 22:03:00 80 /min [facility] Body temperature 2021-09-19 22:03:00 36.72 Awilda [facility] Respiratory rate 2021-09-19 22:03:00 18 /min [facility] Oxygen saturation in 2021-09-19 22:03:00 97 /min [facility] Arterial blood by Pulse oximetry Body height 2021-09-19 19:13:00 172.7 cm [facility] Body weight 2021-09-19 19:13:00 108.863 kg [facility] BMI 2021-09-19 19:13:00 36.49 kg/m2 [facility] Temperature Oral (F) 2020-06-15 20:48:00 98.0 F [facility] Heart Rate 2020-06-15 20:48:[address] [facility] Respitory Rate 2020-06-15 20:48:00 Memori al Sharon Systolic (mm Hg) 2020-06-15 20:48:00 Brandon rial Sharon Diastolic (mm Hg) 2020-06-15 20:48:00 Mem orial Sharon Temperature Oral (F) 2020-06-15 17:22:[address] [facility] Heart Rate 2020-06-15 17:22:00 [facility] [place] Respitory Rate 2020-06-15 17:22:00 Memori al Shady Systolic (mm Hg) 2020-06-15 17:22:00 Brandon rial Sharon Diastolic (mm Hg) 2020-06-15 17:22:00 Mem orial Sharon Temperature Oral (F) 2020-06-15 12:55:00 97.6 F [facility] [place] Heart Rate 2020-06-15 12:55:00 [facility] Shady Respitory Rate 2020-06-15 12:55:00 Memori al Shady Systolic (mm Hg) 2020-06-15 12:55:00 Brandon rial Shady Diastolic (mm Hg) 2020-06-15 12:55:00 Mem orial Sharon BMI Calculated 2020-06-15 05:09:00 Memori al Shady Height 2020-06-15 04:37:00 172.72 cm [facility] Shady Weight 2020-06-15 04:37:00 [facility] Sharon BMI Calculated 2020-06-15 04:37:00 Memori al Shady Heart Rate 2014-02-11 18:33:00 [facility] Shady Systolic (mm Hg) 2014-02-11 18:33:00 Brandon rial Shady Diastolic (mm Hg) 2014-02-11 18:33:00 Mem orial Shady Systolic (mm Hg) 2014-01-21 16:31:00 Brandon rial Sharon Heart Rate 2014-01-21 16:31:00 [facility] Shady Diastolic (mm Hg) 2014-01-21 16:31:00 Mem orial Sharon Heart Rate 2013-12-24 17:08:00 [facility] Shady Diastolic (mm Hg) 2013-12-24 17:08:00 Mem orial Shady Systolic (mm Hg) 2013-12-24 17:08:00 Brandon rial Shady Systolic (mm Hg) 2013-12-17 17:32:00 Brandon rial Shady Heart Rate 2013-12-17 17:32:00 [facility] Sharon Diastolic (mm Hg) 2013-12-17 17:32:00 Mem orial Shady Heart Rate 2013-12-14 20:29:00 [facility] Sharon Diastolic (mm Hg) 2013-12-14 20:29:00 Mem orial Shady Respitory Rate 2013-12-14 20:29:00 Memori al Shady Systolic (mm Hg) 2013-12-14 20:29:00 Brandon rial Sharon BMI Calculated 2013-12-14 20:29:00 Memori al Shady Weight 2013-12-14 20:29:00 [facility] Sharon Height 2013-12-14 20:29:00 172.72 cm [facility] Sharon Diastolic (mm Hg) 2013-12-10 14:08:00 Mem orial Sharon Systolic (mm Hg) 2013-12-10 14:08:00 Brandon rial Shayd Systolic (mm Hg) 2013-12-03 14:19:00 Brandon rial Sharon Diastolic (mm Hg) 2013-12-03 14:19:00 Mem orial Shady Diastolic (mm Hg) 2013-11-15 13:38:00 Mem orial Sharon Respitory Rate 2013-11-15 13:38:00 Memori al Shady Heart Rate 2013-11-15 13:38:00 [facility] Shady Systolic (mm Hg) 2013-11-15 13:38:00 Brandon rial Sharon Temperature Oral (F) 2013-11-15 13:38:00 98.2 F [facility] Shady BMI Calculated 2013-11-15 13:38:00 Memori al Shady Height 2013-11-15 13:38:00 172.72 cm [facility] Sharon Weight 2013-11-15 13:38:00 [facility] [place] Heart Rate 2013-11-12 15:07:00 [facility] Sharon Diastolic (mm Hg) 2013-11-12 15:07:00 Mem orial Sharon Systolic (mm Hg) 2013-11-12 15:07:00 Brandon rial Sharon BMI Calculated 2013-07-08 16:51:00 Memori al Sharon Height 2013-07-08 16:51:00 172.72 cm [facility] Sharon Weight 2013-07-08 16:51:00 [facility] Shady Diastolic (mm Hg) 2013-07-08 16:51:00 Mem orial Sharon Systolic (mm Hg) 2013-07-08 16:51:00 Brandon rial Sharon Heart Rate 2013-07-08 16:51:00 [facility] Sharon Respitory Rate 2013-07-08 16:51:00 Memori al Shady Diastolic (mm Hg) 2013-06-30 17:34:00 Mem orial Shady Systolic (mm Hg) 2013-06-30 17:34:00 Brandon rial Shady Heart Rate 2013-06-28 23:23:00 [facility] Shady Systolic (mm Hg) 2013-06-28 23:23:00 Brandon rial Sharon Diastolic (mm Hg) 2013-06-28 23:23:00 Mem orial Sharon Heart Rate 2013-06-20 15:01:00 [facility] Shady Respitory Rate 2013-06-20 15:01:00 Memori al Shady Systolic (mm Hg) 2013-06-20 15:01:00 Brandon rial Shady Diastolic (mm Hg) 2013-06-20 15:01:00 Mem orial Sharon Temperature Oral (F) 2013-06-20 15:01:00 98.7 F [facility] [place] Height 2013-06-20 15:00:[address] [facility] BMI Calculated 2013-06-20 15:00:00 Memori al Shady Weight 2013-06-20 15:00:00 [facility] Sharon Diastolic (mm Hg) 2013-06-07 16:00:00 Mem orial Sharon Systolic (mm Hg) 2013-06-07 16:00:00 Brandon rial Shady Heart Rate 2013-06-07 16:00:[address] [facility] Heart Rate 2013-06-07 15:07:00 [facility] Procedures Procedure Date / Time Performing Clinician Source Performed XR ELBOW 3+ VW RIGHT 2021-09-19 21:32:47 [facility] XR FINGER 2+ VW RIGHT 2021-09-19 21:32:23 [facility] CBC WITH PLATELET AND 2021-09-19 21:13:00 [facility] DIFFERENTIAL LACTIC ACID LEVEL, SEPSIS 2021-09-19 21:13:00 [facility] - NOW AND REPEAT 2X EVERY 3 HOURS COMPREHENSIVE METABOLIC 2021-09-19 21:13:00 [facility] PANEL ESTIMATED GFR 2021-09-19 21:13:00 [facility] Video urodynamic study 2013-06-20 05:00:00 Roberto levin Shady Laminectomy [facility] Plan of Care Planned Activity Planned Date Details Comments Source Future Scheduled 2022-10-13 Screening for [facility] Test 12:59:24 malignant neoplasm of colon (procedure) [code = 616940027] Future Scheduled 2022-10-13 Screening for [facility] Test 12:59:24 malignant neoplasm of colon (procedure) [code = 616326165] Future Scheduled 2022-10-13 [facility]IN[facility] ([facility] 12:59:24 of 2) [code = SHINGLES VACCINES (1 of 2)] Future Scheduled 2022-10-13 [facility] 12:59:24 [code = INFLUENZA VACCINE] Future Scheduled 2022-10-13 Screening for [facility] Test 12:59:24 malignant neoplasm of colon (procedure) [code = 384835408] Future Scheduled 2022-10-13 Screening for [facility] Test 12:59:24 malignant neoplasm of colon (procedure) [code = 506239328] Future Scheduled 2022-10-13 Screening for [facility] Test 12:59:24 malignant neoplasm of colon (procedure) [code = 417647903] Future Scheduled 2022-10-13 COVID-19 VACCINE (#1) [facility] Test 12:59:24 [code = COVID-19 VACCINE (#1)] Future Scheduled 2022-10-13 Pneumococcal Vaccine: [facility] Test 12:59:24 Pediatrics (0 to 5 Years) and At-Risk Patients (6 to 64 Years) (1 - PCV) [code = Pneumococcal Vaccine: Pediatrics (0 to 5 Years) and At-Risk Patients (6 to 64 Years) (1 - PCV)] Future Scheduled 2022-10-13 Hepatitis C screening [facility] Test 12:59:24 (procedure) [code = 165168119] Future Scheduled 2022-08-25 Screening for [facility] Test 19:18:20 malignant neoplasm of colon (procedure) [code = 446377406] Future Scheduled 2022-08-25 Screening for [facility] Test 19:18:20 malignant neoplasm of colon (procedure) [code = 440310492] Future Scheduled 2022-08-25 COVID-19 VACCINE (#1) [facility] Test 19:18:20 [code = COVID-19 VACCINE (#1)] Future Scheduled 2022-08-25 Pneumococcal Vaccine: [facility] Test 19:18:20 Pediatrics (0 to 5 Years) and At-Risk Patients (6 to 64 Years) (1 - PCV) [code = Pneumococcal Vaccine: Pediatrics (0 to 5 Years) and At-Risk Patients (6 to 64 Years) (1 - PCV)] Future Scheduled 2022-08-25 Hepatitis C screening [facility] Test 19:18:20 (procedure) [code = 899409207] Future Scheduled 2022-08-25 Screening for [facility] Test 19:18:20 malignant neoplasm of colon (procedure) [code = 745042723] Future Scheduled 2022-08-25 Screening for [facility] Test 19:18:20 malignant neoplasm of colon (procedure) [code = 341502281] Future Scheduled 2022-08-25 SHINGLES VACCINES (1 [facility] Test 19:18:20 of 2) [code = SHINGLES VACCINES (1 of 2)] Future Scheduled 2022-08-25 [facility]ACCINE [facility] 19:18:20 [code = INFLUENZA VACCINE] Future Scheduled 2022-08-25 Screening for [facility] Test 19:18:20 malignant neoplasm of colon (procedure) [code = 021992376] Future Scheduled 2022-06-09 COVID-19 VACCINE (#1) [facility] Test 09:45:16 [code = COVID-19 VACCINE (#1)] Future Scheduled 2022-06-09 Pneumococcal Vaccine: [facility] Test 09:45:16 Pediatrics (0 to 5 Years) and At-Risk Patients (6 to 64 Years) (1 - PCV) [code = Pneumococcal Vaccine: Pediatrics (0 to 5 Years) and At-Risk Patients (6 to 64 Years) (1 - PCV)] Future Scheduled 2022-06-09 Hepatitis C screening [facility] Test 09:45:16 (procedure) [code = 434327548] Future Scheduled 2022-06-09 SHINGLES VACCINES (1 [facility] 09:45:16 of 2) [code = SHINGLES VACCINES (1 of 2)] Future Scheduled 2022-06-09 COLONOSCOPY SCREENING [facility] Test 09:45:16 [code = COLONOSCOPY SCREENING] Future Scheduled 2022-06-09 [facility]ACC[facility] 09:45:16 [code = INFLUENZA VACCINE] Future Scheduled 2022-06-09 COVID-19 VACCINE (#1) [facility] Test 09:45:16 [code = COVID-19 VACCINE (#1)] Future Scheduled 2022-06-09 Pneumococcal Vaccine: [facility] Test 09:45:16 Pediatrics (0 to 5 Years) and At-Risk Patients (6 to 64 Years) (1 - PCV) [code = Pneumococcal Vaccine: Pediatrics (0 to 5 Years) and At-Risk Patients (6 to 64 Years) (1 - PCV)] Future Scheduled 2022-06-09 Hepatitis C screening [facility] Test 09:45:16 (procedure) [code = 398352492] Future Scheduled 2022-06-09 SHINGLES VACCINES (1 [facility] Test 09:45:16 of 2) [code = SHINGLES VACCINES (1 of 2)] Future Scheduled 2022-06-09 [facility] for [facility] Test 09:45:16 malignant neoplasm of colon (procedure) [code = 590691923] Future Scheduled 2022-06-09 INFLUENZA VACCINE [facility] Test 09:45:16 [code = INFLUENZA VACCINE] Future Scheduled 2021-11-09 HEPATITIS B VACCINES [facility] Test 11:01:57 (1 of 3 - 3-dose series) [code = HEPATITIS B VACCINES (1 of 3 - 3-dose series)] Future Scheduled 2021-11-09 COVID-19 VACCINE (#1) [facility] Test 11:01:57 [code = COVID-19 VACCINE (#1)] Future Scheduled 2021-11-09 Pneumococcal Vaccine: [facility] Test 11:01:57 Pediatrics (0 to 5 Years) and At-Risk Patients (6 to 64 Years) (1 - PCV) [code = Pneumococcal Vaccine: Pediatrics (0 to 5 Years) and At-Risk Patients (6 to 64 Years) (1 - PCV)] Future Scheduled 2021-11-09 Hepatitis C screening [facility] Test 11:01:57 (procedure) [code = 835276946] Future Scheduled 2021-11-09 SHINGLES VACCINES (1 Met [facility] Test 11:01:57 of 2) [code = SHINGLES VACCINES (1 of 2)] Future Scheduled 2021-11-09 COLONOSCOPY SCREENING [facility] Test 11:01:57 [code = COLONOSCOPY SCREENING] Future Scheduled 2021-11-09 INFLUENZA VACCINE [facility] Test 11:01:57 [code = INFLUENZA VACCINE] Encounters Start End Encounter Admission Attending Care Care Encounter Source Date/Time Date/Time Type Type Clinicians Facility Department ID 2022-08-27 Outpatient Powers, STLMLC [facility] [id number] Common 13:01:00 Ramon 97742 [facility] 2022-02-04 Outpatient Powers, [facility] [id number] Common 11:07:02 Ramon [id number] [facility] 2021-04-03 Outpatient Powers, STLMLC [facility] [id number] Common 14:09:15 Ramon [id number] [facility] 2021-04-03 Outpatient ST[facility]MLC [facility] [id number] Common 12:01:03 [id number] [facility] 2022-10-03 2022-10-03 Outpatient Shilo_b [facility] 73731 Devoted 00:00:00 00:00:00 0728 Medica l Group 2022-08-21 2022-08-21 CORBY Visit Mychal Fuentes 2.16.840. 2.16.840.1 . [id number] Devoted 12:30:00 13:30:00 1.935702. 443574.4.6. 5CS Medical 4.6.12687 [id number] 2022-06-13 2022-06-13 CORBY Visit Wilner Gosia 2.16.840. 2.16.840.1 . [id number] Devoted 18:30:00 19:30:00 1.845331. 739058.4.6. GEK Medical 4.6.76083 [id number] 2022-06-05 2022-06-05 CAV Duyen 2.16.840. 2.16.840.1. CLA UVNT48G Devoted 17:00:00 18:00:00 Shilo 1.087584. 536861.4.6. KKZ Medical 4.6.30973 [id number] 2022-03-22 2022-03-22 (TEL) [facility] [id number] Co mmon 00:00:00 00:00:00 [facility] 2022-03-18 2022-03-18 (ESTPT) STLMLC STLMLC [id number] Co mmon 00:00:00 00:00:00 Toña Powers rit d Patient - [facility] 2022-02-13 2022-02-13 OFFICE STLMLC STLMLC [id number] Co mmon 00:00:00 00:00:00 VISIT EST Spir it PT LEVEL 3 - [facility] 2022-02-06 2022-02-06 OFFICE STLMLC [facility] [id number] Co mmon 00:00:00 00:00:00 VISIT EST Spir it PT LEVEL 3 - [facility] 2022-01-02 2022-01-02 CAV Duyen 2.16.840. 2.16.840.1. CLA [id number] Devoted 18:00:00 19:00:00 Shilo 1.250286. 982339.4.6. G5E [facility] 4.6.38652 [id number] 2021-12-25 2021-12-25 Outpatient Daniels_b [facility] [id number] Devoted 00:00:00 00:00:00 1019 Medica l Group 2021-12-25 2021-12-25 Outpatient Daniels_b [facility] [id number] Devoted 00:00:00 00:00:00 0506 Medica l Group 2021-09-24 2021-09-24 Travel 1.2.840.1 1.2.010.147 [id number] Methodi 00:00:00 00:00:[address] 3.430.2.7 0.2.7.3.698 Ho spita .3.897009 084.8 l .8 2021-09-20 2021-09-20 Outpatient Fadyo_M [facility] [id number] Devoted 03:38:00 03:38:00 0715 Medica l Group 2021-09-19 2021-09-19 Emergency Amato, 1.2.840.1 [id number] Methodi 15:47:00 18:31:[address] 3.430.2.7 Hospit a .3.012123 l .8 2021-09-19 2021-09-19 (TEL) [facility] [id number] Co mmon 00:00:00 00:00:00 [facility] 2021-09-19 2021-09-19 Travel 1.2.840.1 1.2.602.358 [id number] Methodi 00:00:00 00:00:[address] 3.430.2.7 0.2.7.3.698 Ho spita .3.284365 084.8 l .8 2021-09-18 2021-09-18 (TEL) [facility] [id number] Co mmon 00:00:00 00:00:00 [facility] 2021-07-05 2021-07-05 CORBY Avis 2.16.840. 2.16.840.1. CLAC [id number] Devoted 16:30:00 17:00:00 Jackson 1.557198. 307537.4.6. ZYU Medical 4.6.58449 [id number] 2021-06-24 2021-06-24 CORBY Avis 2.16.840. 2.16.840.1. CLAC [id number] Devoted 16:30:00 17:00:00 Jackson 1.953389. 270438.4.6. CAU Medical 4.6.26599 [id number] 2021-06-21 2021-06-21 CORBY Avis 2.16.840. 2.16.840.1. CLAC [id number] Devoted 14:00:00 14:30:00 Jackson 1.942071. 112871.4.6. 5JR Medical 4.6.96052 [id number] 2021-06-14 2021-06-14 CORBY Avis 2.16.840. 2.16.840.1. CLAC [id number] Devoted 14:30:00 15:30:00 Jackson 1.214919. 509007.4.6. 85U Medical 4.6.76893 [id number] 2021-04-23 2021-04-23 [facility] 42671 -2021 Devoted 08:00:00 08:00:00 0215 Medica l Group 2021-03-21 2021-03-21 CAV Nell 2.16.840. 2.16.840.1. CLAC [id number] Devoted 16:30:00 17:30:00 Joan 1.464135. 983046.4.6. Z4G Medical 4.6.47789 [id number] 2021-03-12 2021-03-12 Outpatient Trevino_M [facility] [id number] -2021 Devoted 03:11:00 03:11:00 0104 Medica l Group 2021-02-11 2021-02-11 Outpatient CURRY_S [facility] [id number] Devoted 05:35:00 05:35:00 1206 Medica l Group 2021-02-11 2021-02-11 OFFICE STLMLC STLMLC [id number] Co mmon 00:00:00 00:00:00 VISIT EST Spir it PT LEVEL 3 - [facility] 2021-01-11 2021-01-11 OFFICE STLMLC STLMLC [id number] Co mmon 00:00:00 00:00:00 VISIT EST Spir it PT LEVEL 3 - [facility] 2020-06-15 2020-06-16 Observatio nullFlavo [facility] 3487 [id number] Memoria 05:09:00 00:09:[address] [facility] 2020-06-15 2020-06-16 Observatio nullFlavo [facility] 3487 [id number] Memoria 05:09:00 00:09:[address] [facility] 2020-06-15 2020-06-15 Outpatient Charly [facility] [id number] 00:09:00 19:09:00 Mandeep 98 2020-06-15 2020-06-15 Outpatient U [facility] 1098 Memoria 00:09:00 19:09:00 MANDEEP Laneann [facility] 2020-02-14 2020-02-14 Outpatient STLMLC STLMLC [id number] Common 00:00:00 00:00:00 [facility] 2020-02-07 2020-02-07 Outpatient STLMLC STLMLC [id number] Common 00:00:00 00:00:00 [facility] 2020-01-17 2020-01-17 Outpatient STLMLC STLMLC [id number] Common 00:00:00 00:00:00 [facility] 2020-01-16 2020-01-16 Outpatient STLMLC STLMLC [id number] Common 00:00:00 00:00:00 [facility] 2020-01-09 2020-01-09 Outpatient STLMLC STLMLC [id number] Common 00:00:00 00:00:00 [facility] 2014-01-21 2014-02-20 Tots nullFlavo [facility] [id number] Memoria 14:00:00 05:59:00 Therapy r Shady 09 l T[facility] Shady 2014-01-21 2014-02-20 Tots nullFlavo [facility] [id number] Memoria 14:00:00 05:59:00 Therapy r Sharon 09 l [facility] Shady 2014-01-21 2014-02-19 Outpatient Tastard, 2.16.840. 2.16.840.1. [id number] 08:00:00 23:59:00 Birdie Amparo 1.001144. 427159.3.61 09 3.615.0.1 5.0.944 81 6129-11-15 2014-02-19 Outpatient Tastard, 2.16.840. 2.16.840.1. [id number] 08:00:00 23:59:00 Birdie Amparo 1.935413. 008797.3.61 09 3.615.0.1 5.0.111 69 6605-11-15 2014-02-19 Outpatient Tastard, 2.16.840. 2.16.840.1. [id number] 08:00:00 23:59:00 Birdie Amparo 1.570742. 737467.3.61 09 3.615.0.1 5.0.859 15 3844-10-11 2014-01-16 Tots [facility] [id number] Memoria 13:00:00 05:59:00 Therapy r Shady Caruso 2013-12-17 2014-01-16 Tots [facility]Flavo [facility] [id number] Memoria 13:00:00 05:59:00 Therapy r Shady 08 irais Caruso 2013-12-17 2014-01-15 Outpatient Tastard, 2.16.840. 2.16.840.1. [id number] 08:00:00 23:59:00 Birdie Amparo 1.476353. 761225.3.61 08 3.615.0.1 5.0.098 75 0077-10-08 2013-12-15 Outpatient [facility]Flavo [facility] [id number] Memoria 19:55:00 04:59:00 r Shady Caruso 2013-12-14 2013-12-15 Outpatient [facility]Flavo [facility] [id number] [id number] Memoria 19:55:00 04:59:00 r Shady Caruso 2013-12-14 2013-12-14 Outpatient Nicholas, 2.16.840. 2.16.840.1. 3 [id number] 14:55:00 23:59:00 Gamaliel 1.003980. 361993.3.61 11 Daniel 3.615.0.1 5.0.484 92 9670-09-06 2013-12-12 Tots [facility]Flavo [facility] [id number] Memoria 13:00:00 04:59:00 Therapy r Shady Caruso 2013-11-12 2013-12-12 Tots [facility]Flavo [facility] [id number] Memoria 13:00:00 04:59:00 Therapy r Shady Caruso 2013-11-12 2013-12-11 Outpatient Tastard, 2.16.840. 2.16.840.1. [id number] 08:00:00 23:59:00 Birdie Amparo 1.287295. 521859.3.61 07 3.615.0.1 5.0.420 87 5338-09-09 2013-11-16 Outpatient [facility] [id number] [id number] Memoria 13:01:00 04:59:00 r Shady 10 irais Caruso 2013-11-15 2013-11-16 Outpatient [facility]Flavo [facility] [id number] [id number] Memoria 13:01:00 04:59:00 r Shady 10 irais Caruso 2013-11-15 2013-11-15 Outpatient Michelle, 2.16.840. 2.16.840.1. 3 [id number] 08:01:00 23:59:00 Cori Jennifer 1.571917. 072254.3.61 10 3.615.0.1 5.0.717 27 0444-08-02 2013-11-07 Tots [facility]Flavo [facility] [id number] Memoria 13:00:00 04:59:00 Therapy r Shady 06 irais Caruso 2013-10-08 2013-11-07 Tots [facility]Flavo [facility] [id number] Memoria 13:00:00 04:59:00 Therapy r Shady 06 irais Caruso 2013-10-08 2013-11-06 Outpatient Tastard, 2.16.840. 2.16.840.1. [id number] 08:00:00 23:59:00 Birdie Amparo 1.328263. 961391.3.61 06 3.615.0.1 5.0.897 42 3457-07-05 2013-10-10 Tots [facility] [id number] Memoria 13:00:00 04:59:00 Therapy r Shady 05 irais Caruso 2013-09-10 2013-10-10 Tots [facility]Flavo [facility] [id number] Memoria 13:00:00 04:59:00 Therapy r Shady 05 irais Caruso 2013-09-10 2013-10-09 Outpatient Tastard, 2.16.840. 2.16.840.1. [id number] 08:00:00 23:59:00 Birdie Amparo 1.126578. 136510.3.61 05 3.615.0.1 5.0.660 44 0938-05-02 2013-07-09 Outpatient [facility] [id number] Memoria 16:26:00 04:59:00 r Sharon 04 l ADEN Caruso 2013-07-08 2013-07-09 Outpatient [facility]Fl[facility] 3487 [id number] Memoria 16:26:00 04:59:00 r Sharon 04 l ADEN Caruso 2013-07-08 2013-07-08 Outpatient Tastard, 2.16.840. 2.16.840.1. [id number] 11:26:00 23:59:00 Birdie Amparo 1.219254. 463365.3.61 04 3.615.0.1 5.0.133 68 3902-04-01 2013-07-07 Tots [facility]Flavo [facility] [id number] Memoria 14:13:00 04:59:00 Therapy r Sharon 03 l ADEN Caruso 2013-06-07 2013-07-07 Tots [facility]Flavo [facility] [id number] Memoria 14:13:00 04:59:00 Therapy r Sharon 03 l ADEN Caruso 2013-06-07 2013-07-06 Outpatient Tastard, 2.16.840. 2.16.840.1. [id number] 09:13:00 23:59:00 Birdie Amparo 1.849854. 397663.3.61 03 3.615.0.1 5.0.083 71 8502-04-14 2013-06-21 Outpatient [facility]Fl[facility] [id number] [id number] Memoria 14:43:00 04:59:00 r Sharon 02 l ADEN Caruso 2013-06-20 2013-06-21 Outpatient [facility] [id number] [id number] Memoria 14:43:00 04:59:00 r Sharon 02 l PASCUALR Shady 2013-06-20 2013-06-20 Outpatient Bertini, 2.16.840. 2.16.840.1. [id number] 09:43:00 23:59:00 Tung Salguero 1.786276. 015452.3.61 02 3.615.0.1 5.0.101 01 Results Test Description Test Time Test Comments Results Result Comments Source URINE AND STOOL 2020-06-15 16:30:00 Test Item Value Reference Range Interpretation Comme nts UA Blood (test code = UA Blood) Small *ABN*(06/15/20 11:30 AM) [facility] [id number] 16:30:00 Test Item Value Reference Range Interpretation Comments UA Nitrite (test code Positive *ABN*(06/15/20 = UA Nitrite) 11:30 AM) [facility] [id number] 16:30:00 Test Item Value Reference Range Interpretation Comments UA Leuk Est (test code Large *ABN*(06/15/20 = UA Leuk Est) 11:30 AM) [facility] [id number] 16:30:00 Test Item Value Reference Range Interpretation Comments UA WBC (test code = 84 See_Comment [Automa faye message] The UA WBC) system which ge nerated this result transmit faye reference range : <=5. The reference range was not used to interpr et this result as nathaly l/abnormal. [facility] [id number] 16:30:00 Test Item Value Reference Range Interpretation Comments UA RBC (test code = 9 See_Comment [Automa faye message] The UA RBC) system which ge nerated this result transmit faye reference range : <=2. The reference range was not used to interpr et this result as nathaly l/abnormal. [facility] [id number] 16:30:00 Test Item Value Reference Range Interpretation Comments UA Bacteria (test code = UA Moderate /HPF Bacteria) [facility] AND [id number] 16:30:00 Test Item Value Reference Range Interpretation Comments UA Sq Epi (test code = UA Sq Epi) None Seen [facility] AND [id number] 16:30:00 Test Item Value Reference Range Interpretation Comments UA Color (test code = UA Color) Chani [facility] AND [id number] 16:30:00 Test Item Value Reference Range Interpretation Comments UA Glucose (test code = UA Glucose) 500 [facility] AND [id number] 16:30:00 Test Item Value Reference Range Interpretation Comments UA Urobilinogen (test code = UA <=1.0 mg/dL 0.1-1.0 Urobilinogen) [facility]C:PT:ISOLATE:ORDQN:[id number] 16:30:00 Test Item Value Reference Range Interpretation Comments Culture: Urine (test >100,000 CFU/mL Proteus code = Culture: mirabilis >100,000 Urine) CFU/mL Skin Emily [facility]ZAKFTAZIDIME:SUSC:PT:ISOLATE:ORDQN:[id number] 16:30:00 Test Item Value Reference Range Interpretation Comments Proteus mirabilis (test Proteus mirabilis code = Proteus mirabilis) [facility] AND [id number] 16:30:00 Test Item Value Reference Range Interpretation Comments UA Turbidity (test code Marked *ABN*(06/15/20 = UA Turbidity) 11:30 AM) [facility] AND [id number] 16:30:00 Test Item Value Reference Range Interpretation Comments UA Spec Grav (test code = UA Spec 1.022 1 Grav) [facility] AND [id number] 16:30:00 Test Item Value Reference Range Interpretation Comments UA pH (test code = UA pH) 7.0 1 5.0-8.0 [facility] AND [id number] 16:30:00 Test Item Value Reference Range Interpretation Comments UA Protein (test code = UA Protein) 100 mg/dL [facility] AND [id number] 16:30:00 Test Item Value Reference Range Interpretation Comments UA Ketones (test code = UA Trace mg/dL Ketones) [facility] AND [id number] 16:30:00 Test Item Value Reference Range Interpretation Comments UA Bili (test code = Negative *NA*(06/15/20 UA Bili) 11:30 AM) [facility] AND [id number] 16:30:00 Test Item Value Reference Range Interpretation Comments UA Nitrite (test code Positive *ABN*(06/15/20 = UA Nitrite) 11:30 AM) [facility] AND [id number] 16:30:00 Test Item Value Reference Range Interpretation Comments UA Leuk Est (test code Large *ABN*(06/15/20 = UA Leuk Est) 11:30 AM) [facility] AND [id number] 16:30:00 Test Item Value Reference Range Interpretation Comments UA WBC (test code = 84 See_Comment [Automa faye message] The UA WBC) system which ge nerated this result transmit faye reference range : <=5. The reference range was not used to interpr et this result as nathaly l/abnormal. [facility] [id number] 16:30:00 Test Item Value Reference Range Interpretation Comments UA RBC (test code = 9 See_Comment [Automa faye message] The UA RBC) system which ge nerated this result transmit faye reference range : <=2. The reference range was not used to interpr et this result as nathaly l/abnormal. [facility] [id number] 16:30:00 Test Item Value Reference Range Interpretation Comments UA Bacteria (test code = UA Moderate /HPF Bacteria) [facility] [id number] 16:30:00 Test Item Value Reference Range Interpretation Comments UA Sq Epi (test code = UA Sq Epi) None Seen [facility] [id number] 16:30:00 Test Item Value Reference Range Interpretation Comments UA Color (test code = UA Color) [facility] [id number] 16:30:00 Test Item Value Reference Range Interpretation Comments UA Glucose (test code = UA Glucose) 500 [facility] AND [id number] 16:30:00 Test Item Value Reference Range Interpretation Comments UA Urobilinogen (test code = UA <=1.0 mg/dL 0.1-1.0 Urobilinogen) [facility] CenteryogeshCEFTAZIDIME:SUSC:PT:ISOLATE:ORDQN:[id number] 16:30:00 Test Item Value Reference Range Interpretation Comments Culture: Urine (test >100,000 CFU/mL Proteus code = Culture: mirabilis >100,000 Urine) CFU/mL Skin Emily [facility] CenterannCEFTAZIDIME:SUSC:PT:ISOLATE:ORDQN:[id number] 16:30:00 Test Item Value Reference Range Interpretation Comments Proteus mirabilis (test Proteus mirabilis code = Proteus mirabilis) [facility] AND [id number] 16:30:00 Test Item Value Reference Range Interpretation Comments UA Turbidity (test code Marked *ABN*(06/15/20 = UA Turbidity) 11:30 AM) [facility] AND [id number] 16:30:00 Test Item Value Reference Range Interpretation Comments UA Spec Grav (test code = UA Spec 1.022 1 Grav) [facility] AND [id number] 16:30:00 Test Item Value Reference Range Interpretation Comments UA pH (test code = UA pH) 7.0 1 5.0-8.0 [facility] AND [id number] 16:30:00 Test Item Value Reference Range Interpretation Comments UA Protein (test code = UA Protein) 100 mg/dL [facility] AND [id number] 16:30:00 Test Item Value Reference Range Interpretation Comments UA Ketones (test code = UA Trace mg/dL Ketones) [facility] AND [id number] 16:30:00 Test Item Value Reference Range Interpretation Comments UA Bili (test code = Negative *NA*(06/15/20 UA Bili) 11:30 AM) [facility] AND [id number] 16:30:00 Test Item Value Reference Range Interpretation Comments UA Blood (test code = Small *ABN*(06/15/20 UA Blood) 11:30 AM) [facility] AND [id number] 16:30:00 Test Item Value Reference Range Interpretation Comments UA Nitrite (test code Positive *ABN*(06/15/20 = UA Nitrite) 11:30 AM) [facility] AND [id number] 16:30:00 Test Item Value Reference Range Interpretation Comments UA Leuk Est (test code Large *ABN*(06/15/20 = UA Leuk Est) 11:30 AM) [facility] AND [id number] 16:30:00 Test Item Value Reference Range Interpretation Comments UA WBC (test code = 84 See_Comment [Automa faye message] The UA WBC) system which ge nerated this result transmit faye reference range : <=5. The reference range was not used to interpr et this result as nathaly l/abnormal. [facility] AND [id number] 16:30:00 Test Item Value Reference Range Interpretation Comments UA RBC (test code = 9 See_Comment [Automa faye message] The UA RBC) system which ge nerated this result transmit faye reference range : <=2. The reference range was not used to interpr et this result as nathaly l/abnormal. [facility] AND [id number] 16:30:00 Test Item Value Reference Range Interpretation Comments UA Bacteria (test code = UA Moderate /HPF Bacteria) [facility] AND [id number] 16:30:00 Test Item Value Reference Range Interpretation Comments UA Sq Epi (test code = UA Sq Epi) None Seen [facility] AND [id number] 16:30:00 Test Item Value Reference Range Interpretation Comments UA Color (test code = UA Color) Chani [facility] AND [id number] 16:30:00 Test Item Value Reference Range Interpretation Comments UA Glucose (test code = UA Glucose) 500 [facility] AND [id number] 16:30:00 Test Item Value Reference Range Interpretation Comments UA Urobilinogen (test code = UA <=1.0 mg/dL 0.1-1.0 Urobilinogen) [facility]ATE:ORDQN:[id number] 16:30:00 Test Item Value Reference Range Interpretation Comments Culture: Urine (test >100,000 CFU/mL Proteus code = Culture: mirabilis >100,000 Urine) CFU/mL Skin Emily [facility]C:PT:ISOLATE:ORDQN:[id number] 16:30:00 Test Item Value Reference Range Interpretation Comments Proteus mirabilis (test Proteus mirabilis code = Proteus mirabilis) [facility] AND [id number] 16:30:00 Test Item Value Reference Range Interpretation Comments UA Turbidity (test code Marked *ABN*(06/15/20 = UA Turbidity) 11:30 AM) [facility] AND [id number] 16:30:00 Test Item Value Reference Range Interpretation Comments UA Spec Grav (test code = UA Spec 1.022 1 Grav) [facility] AND [id number] 16:30:00 Test Item Value Reference Range Interpretation Comments UA pH (test code = UA pH) 7.0 1 5.0-8.0 [facility] AND [id number] 16:30:00 Test Item Value Reference Range Interpretation Comments UA Protein (test code = UA Protein) 100 mg/dL [facility] [id number] 16:30:00 Test Item Value Reference Range Interpretation Comments UA Ketones (test code = UA Trace mg/dL Ketones) [facility] [id number] 16:30:00 Test Item Value Reference Range Interpretation Comments UA Bili (test code = Negative *NA*(06/15/20 UA Bili) 11:30 AM) [facility] [id number] 16:30:00 Test Item Value Reference Range Interpretation Comments UA Blood (test code = Small *ABN*(06/15/20 UA Blood) 11:30 AM) [facility] AND [id number] 16:30:00 Test Item Value Reference Range Interpretation Comments UA Nitrite (test code Positive *ABN*(06/15/20 = UA Nitrite) 11:30 AM) [facility] [id number] 16:30:00 Test Item Value Reference Range Interpretation Comments UA Leuk Est (test code Large *ABN*(06/15/20 = UA Leuk Est) 11:30 AM) [facility] AND [id number] 16:30:00 Test Item Value Reference Range Interpretation Comments UA WBC (test code = 84 See_Comment [Automa faye message] The UA WBC) system which ge nerated this result transmit faye reference range : <=5. The reference range was not used to interpr et this result as nathaly l/abnormal. [facility]ann[facility] AND [id number] 16:30:00 Test Item Value Reference Range Interpretation Comments UA RBC (test code = 9 See_Comment [Automa faye message] The UA RBC) system which ge nerated this result transmit faye reference range : <=2. The reference range was not used to interpr et this result as nathaly l/abnormal. [facility] [id number] 16:30:00 Test Item Value Reference Range Interpretation Comments UA Bacteria (test code = UA Moderate /HPF Bacteria) [facility] [id number] 16:30:00 Test Item Value Reference Range Interpretation Comments UA Sq Epi (test code = UA Sq Epi) None Seen [facility] AND [id number] 16:30:00 Test Item Value Reference Range Interpretation Comments UA Color (test code = UA Color) Chani [facility] AND [id number] 16:30:00 Test Item Value Reference Range Interpretation Comments UA Glucose (test code = UA Glucose) 500 [facility] AND [id number] 16:30:00 Test Item Value Reference Range Interpretation Comments UA Urobilinogen (test code = UA <=1.0 mg/dL 0.1-1.0 Urobilinogen) [facility]:SUSC:PT:ISOLATE:ORDQN:[id number] 16:30:00 Test Item Value Reference Range Interpretation Comments Culture: Urine (test >100,000 CFU/mL Proteus code = Culture: mirabilis >100,000 Urine) CFU/mL Skin Emily [facility]:SUSC:PT:ISOLATE:ORDQN:[id number] 16:30:00 Test Item Value Reference Range Interpretation Comments Proteus mirabilis (test Proteus mirabilis code = Proteus mirabilis) [facility] AND [id number] 16:30:00 Test Item Value Reference Range Interpretation Comments UA Turbidity (test code Marked *ABN*(06/15/20 = UA Turbidity) 11:30 AM) [facility] AND [id number] 16:30:00 Test Item Value Reference Range Interpretation Comments UA Spec Grav (test code = UA Spec 1.022 1 Grav) [facility] AND [id number] 16:30:00 Test Item Value Reference Range Interpretation Comments UA pH (test code = UA pH) 7.0 1 5.0-8.0 [facility] AND [id number] 16:30:00 Test Item Value Reference Range Interpretation Comments UA Protein (test code = UA Protein) 100 mg/dL [facility] AND [id number] 16:30:00 Test Item Value Reference Range Interpretation Comments UA Ketones (test code = UA Trace mg/dL Ketones) [facility] AND [id number] 16:30:00 Test Item Value Reference Range Interpretation Comments UA Bili (test code = Negative *NA*(06/15/20 UA Bili) 11:30 AM) [facility] AND [id number] 16:30:00 Test Item Value Reference Range Interpretation Comments UA Blood (test code = Small *ABN*(06/15/20 UA Blood) 11:30 AM) [facility] [id number] 16:30:00 Test Item Value Reference Range Interpretation Comments UA Nitrite (test code Positive *ABN*(06/15/20 = UA Nitrite) 11:30 AM) [facility] [id number] 16:30:00 Test Item Value Reference Range Interpretation Comments UA Leuk Est (test code Large *ABN*(06/15/20 = UA Leuk Est) 11:30 AM) [facility]ann[facility] AND [id number] 16:30:00 Test Item Value Reference Range Interpretation Comments UA WBC (test code = 84 See_Comment [Automa faye message] The UA WBC) system which ge nerated this result transmit faye reference range : <=5. The reference range was not used to interpr et this result as nathaly l/abnormal. [facility]annH[facility] AND [id number] 16:30:00 Test Item Value Reference Range Interpretation Comments UA RBC (test code = 9 See_Comment [Automa faye message] The UA RBC) system which ge nerated this result transmit faye reference range : <=2. The reference range was not used to interpr et this result as nathaly l/abnormal. [facility] AND [id number] 16:30:00 Test Item Value Reference Range Interpretation Comments UA Bacteria (test code = UA Moderate /HPF Bacteria) [facility] AND [id number] 16:30:00 Test Item Value Reference Range Interpretation Comments UA Sq Epi (test code = UA Sq Epi) None Seen [facility] AND [id number] 16:30:00 Test Item Value Reference Range Interpretation Comments UA Color (test code = UA Color) Chani [facility] AND [id number] 16:30:00 Test Item Value Reference Range Interpretation Comments UA Glucose (test code = UA Glucose) 500 [facility] AND [id number] 16:30:00 Test Item Value Reference Range Interpretation Comments UA Urobilinogen (test code = UA <=1.0 mg/dL 0.1-1.0 Urobilinogen) [facility]ZAKFTAZIDIME:SUSC:PT:ISOLATE:ORDQN:[id number] 16:30:00 Test Item Value Reference Range Interpretation Comments Culture: Urine (test >100,000 CFU/mL Proteus code = Culture: mirabilis >100,000 Urine) CFU/mL Skin Emily [facility] CenterJhoanaRADHAIDIME:SUSC:PT:ISOLATE:ORDQN:[id number] 16:30:00 Test Item Value Reference Range Interpretation Comments Proteus mirabilis (test Proteus mirabilis code = Proteus mirabilis) [facility] AND [id number] 16:30:00 Test Item Value Reference Range Interpretation Comments UA Turbidity (test code Marked *ABN*(06/15/20 = UA Turbidity) 11:30 AM) [facility] AND [id number] 16:30:00 Test Item Value Reference Range Interpretation Comments UA Spec Grav (test code = UA Spec 1.022 1 Grav) [facility] AND [id number] 16:30:00 Test Item Value Reference Range Interpretation Comments UA pH (test code = UA pH) 7.0 1 5.0-8.0 [facility] AND [id number] 16:30:00 Test Item Value Reference Range Interpretation Comments UA Protein (test code = UA Protein) 100 mg/dL [facility] AND [id number] 16:30:00 Test Item Value Reference Range Interpretation Comments UA Ketones (test code = UA Trace mg/dL Ketones) [facility] AND [id number] 16:30:00 Test Item Value Reference Range Interpretation Comments UA Bili (test code = Negative *NA*(06/15/20 UA Bili) 11:30 AM) [facility] AND [id number] 16:30:00 Test Item Value Reference Range Interpretation Comments UA Blood (test code = Small *ABN*(06/15/20 UA Blood) 11:30 AM) [facility] AND [id number] 16:30:00 Test Item Value Reference Range Interpretation Comments UA Nitrite (test code Positive *ABN*(06/15/20 = UA Nitrite) 11:30 AM) [facility] AND [id number] 16:30:00 Test Item Value Reference Range Interpretation Comments UA Leuk Est (test code Large *ABN*(06/15/20 = UA Leuk Est) 11:30 AM) [facility] AND [id number] 16:30:00 Test Item Value Reference Range Interpretation Comments UA WBC (test code = 84 See_Comment [Automa faye message] The UA WBC) system which ge nerated this result transmit faye reference range : <=5. The reference range was not used to interpr et this result as nathaly l/abnormal. [facility] DomingoannLURDES AND [id number] 16:30:00 Test Item Value Reference Range Interpretation Comments UA RBC (test code = 9 See_Comment [Automa faye message] The UA RBC) system which ge nerated this result transmit faye reference range : <=2. The reference range was not used to interpr et this result as nathaly l/abnormal. [facility] AND [id number] 16:30:00 Test Item Value Reference Range Interpretation Comments UA Bacteria (test code = UA Moderate /HPF Bacteria) [facility] AND [id number] 16:30:00 Test Item Value Reference Range Interpretation Comments UA Sq Epi (test code = UA Sq Epi) None Seen [facility] AND [id number] 16:30:00 Test Item Value Reference Range Interpretation Comments UA Color (test code = UA Color) Chani [facility] AND [id number] 16:30:00 Test Item Value Reference Range Interpretation Comments UA Glucose (test code = UA Glucose) 500 [facility] AND [id number] 16:30:00 Test Item Value Reference Range Interpretation Comments UA Urobilinogen (test code = UA <=1.0 mg/dL 0.1-1.0 Urobilinogen) [facility]oCEFTAZIDIME:SUSC:PT:ISOLATE:ORDQN:[id number] 16:30:00 Test Item Value Reference Range Interpretation Comments Culture: Urine (test >100,000 CFU/mL Proteus code = Culture: mirabilis >100,000 Urine) CFU/mL Skin Emily [facility]oCEFTAZIDIME:SUSC:PT:ISOLATE:ORDQN:[id number] 16:30:00 Test Item Value Reference Range Interpretation Comments Proteus mirabilis (test Proteus mirabilis code = Proteus mirabilis) [facility] AND [id number] 16:30:00 Test Item Value Reference Range Interpretation Comments UA Turbidity (test code Marked *ABN*(06/15/20 = UA Turbidity) 11:30 AM) [facility] AND [id number] 16:30:00 Test Item Value Reference Range Interpretation Comments UA Spec Grav (test code = UA Spec 1.022 1 Grav) [facility] AND [id number] 16:30:00 Test Item Value Reference Range Interpretation Comments UA pH (test code = UA pH) 7.0 1 5.0-8.0 [facility] AND [id number] 16:30:00 Test Item Value Reference Range Interpretation Comments UA Protein (test code = UA Protein) 100 mg/dL [facility] AND [id number] 16:30:00 Test Item Value Reference Range Interpretation Comments UA Ketones (test code = UA Trace mg/dL Ketones) [facility] AND [id number] 16:30:00 Test Item Value Reference Range Interpretation Comments UA Bili (test code = Negative *NA*(06/15/20 UA Bili) 11:30 AM) [facility] AND [id number] 16:30:00 Test Item Value Reference Range Interpretation Comments UA Blood (test code = Small *ABN*(06/15/20 UA Blood) 11:30 AM) [facility]oCARDIAC [id number] 10:57:00 Test Item Value Reference Range Interpretation Comments Troponin-I (test code no gt See_Comment [Auto mated message] The = Troponin-I) system which g enerated this result transmit faye reference range : <=0.40. The reference r rodrigo was not used to interpr et this result as nathaly l/abnormal. [facility] CenterannCARDIAC [id number] 10:57:00 Test Item Value Reference Range Interpretation Comments Troponin-I (test code no gt See_Comment [Auto mated message] The = Troponin-I) system which g enerated this result transmit faye reference range : <=0.40. The reference r rodrigo was not used to interpr et this result as nathaly l/abnormal. [facility] CenterannCARDIAC [id number] 10:57:00 Test Item Value Reference Range Interpretation Comments Troponin-I (test code no gt See_Comment [Auto mated message] The = Troponin-I) system which g enerated this result transmit faye reference range : <=0.40. The reference r rodrigo was not used to interpr et this result as nathaly l/abnormal. [facility] CenterEMRes TechnologiesEPHRAIM [facility] [id number] 10:57:00 Test Item Value Reference Range Interpretation Comments Troponin-I (test code no gt See_Comment [Auto mated message] The = Troponin-I) system which g enerated this result transmit faye reference range : <=0.40. The reference r rodrigo was not used to interpr et this result as nathaly l/abnormal. [facility]aredoiCopyrightEPHRA[facility] [id number] 10:57:00 Test Item Value Reference Range Interpretation Comments Troponin-I (test code no gt See_Comment [Auto mated message] The = Troponin-I) system which g enerated this result transmit faye reference range : <=0.40. The reference r rodrigo was not used to interpr et this result as nathaly l/abnormal. [facility] LaredoMySmartPrice [id number] 10:57:00 Test Item Value Reference Range Interpretation Comments Troponin-I (test code no gt See_Comment [Auto mated message] The = Troponin-I) system which g enerated this result transmit faye reference range : <=0.40. The reference r rodrigo was not used to interpr et this result as nathaly l/abnormal. [facility] HospitalLuxTicket.sg [id number] 06:53:00 Test Item Value Reference Range Interpretation Comments Troponin-I (test code no gt See_Comment [Auto mated message] The = Troponin-I) system which g enerated this result transmit faye reference range : <=0.40. The reference r rodrigo was not used to interpr et this result as nathaly l/abnormal. [facility] [id number] 06:53:00 Test Item Value Reference Range Interpretation Comments Trig (test code = Trig) 330 [id number] 06:53:00 Test Item Value Reference Range Interpretation Comments Chol (test code = Chol) 174 [facility] S[id number] 06:53:00 Test Item Value Reference Range Interpretation Comments HDL (test code = HDL) 28 [id number] 06:53:00 Test Item Value Reference Range Interpretation Comments CHD Risk (test code = CHD Risk) 6.21 1 4.00-7.[address] [facility] [id number] 06:53:00 Test Item Value Reference Range Interpretation Comments LDL (Calculated) (test code = LDL 80 (Calculated)) [facility] [id number] 06:53:00 Test Item Value Reference Range Interpretation Comments VLDL (test code = VLDL) [address] [facility] CenterannCARDIAC [id number] 06:53:00 Test Item Value Reference Range Interpretation Comments Troponin-I (test code no gt See_Comment [Auto mated message] The = Troponin-I) system which g enerated this result transmit faye reference range : <=0.40. The reference r rodrigo was not used to interpr et this result as nathaly l/abnormal. [facility] [id number] 06:53:00 Test Item Value Reference Range Interpretation Comments Trig (test code = Trig) [address] [facility] [id number] 06:53:00 Test Item Value Reference Range Interpretation Comments Chol (test code = Chol) [address] [facility] [id number] 06:53:00 Test Item Value Reference Range Interpretation Comments HDL (test code = HDL) [address] [facility] [id number] 06:53:00 Test Item Value Reference Range Interpretation Comments CHD Risk (test code = CHD Risk) 6.21 1 4.00-7.[address] [facility] [id number] 06:53:00 Test Item Value Reference Range Interpretation Comments LDL (Calculated) (test code = LDL 80 (Calculated)) [id number] 06:53:00 Test Item Value Reference Range Interpretation Comments VLDL (test code = VLDL) 66 1 [facility]aredoCARDIAC [id number] 06:53:00 Test Item Value Reference Range Interpretation Comments Troponin-I (test code no gt See_Comment [Auto mated message] The = Troponin-I) system which g enerated this result transmit faye reference range : <=0.40. The reference r rodrigo was not used to interpr et this result as nathaly l/abnormal. [facility] [id number] 06:53:00 Test Item Value Reference Range Interpretation Comments Trig (test code = Trig) [address] [facility] [id number] 06:53:00 Test Item Value Reference Range Interpretation Comments Chol (test code = Chol) [address] [facility] [id number] 06:53:00 Test Item Value Reference Range Interpretation Comments HDL (test code = HDL) [address] [facility] [id number] 06:53:00 Test Item Value Reference Range Interpretation Comments CHD Risk (test code = CHD Risk) 6.21 1 4.00-7.[address] CenterOxvmkwcANXGIK1608-22-10 06:53:00 Test Item Value Reference Range Interpretation Comments LDL (Calculated) (test code = LDL 80 (Calculated)) [facility] [id number] 06:53:00 Test Item Value Reference Range Interpretation Comments VLDL (test code = VLDL) 66 1 [facility]oCARDIAC [id number] 06:53:00 Test Item Value Reference Range Interpretation Comments Troponin-I (test code no gt See_Comment [Auto mated message] The = Troponin-I) system which g enerated this result transmit faye reference range : <=0.40. The reference r rodrigo was not used to interpr et this result as nathaly l/abnormal. [facility] [id number] 06:53:00 Test Item Value Reference Range Interpretation Comments Trig (test code = Trig) [address] [facility] [id number] 06:53:00 Test Item Value Reference Range Interpretation Comments Chol (test code = Chol) [address] [facility] [id number] 06:53:00 Test Item Value Reference Range Interpretation Comments HDL (test code = HDL) [address] [facility] [id number] 06:53:00 Test Item Value Reference Range Interpretation Comments CHD Risk (test code = CHD Risk) 6.21 1 4.00-7.[address] [facility] [id number] 06:53:00 Test Item Value Reference Range Interpretation Comments LDL (Calculated) (test code = LDL 80 (Calculated)) [facility] [id number] 06:53:00 Test Item Value Reference Range Interpretation Comments VLDL (test code = VLDL) 66 1 [facility]oCARDIAC [id number] 06:53:00 Test Item Value Reference Range Interpretation Comments Troponin-I (test code no gt See_Comment [Auto mated message] The = Troponin-I) system which g enerated this result transmit faye reference range : <=0.40. The reference r rodrigo was not used to interpr et this result as nathaly l/abnormal. [facility] [id number] 06:53:00 Test Item Value Reference Range Interpretation Comments Trig (test code = Trig) 330 [facility] [id number] 06:53:00 Test Item Value Reference Range Interpretation Comments Chol (test code = Chol) 174 [facility] PbnvlxmCCCZPX4536-11-96 06:53:00 Test Item Value Reference Range Interpretation Comments HDL (test code = HDL) 28 [facility] [id number] 06:53:00 Test Item Value Reference Range Interpretation Comments CHD Risk (test code = CHD Risk) 6.21 1 4.00-7.30 [facility] EjouxxwPLKBVY7233-07-55 06:53:00 Test Item Value Reference Range Interpretation Comments LDL (Calculated) (test code = LDL 80 (Calculated)) [facility] WjjlxpjIDCVUO0533-59-20 06:53:00 Test Item Value Reference Range Interpretation Comments VLDL (test code = VLDL) [address] CenterannCARDIAC [id number] 06:53:00 Test Item Value Reference Range Interpretation Comments Troponin-I (test code no gt See_Comment [Auto mated message] The = Troponin-I) system which g enerated this result transmit faye reference range : <=0.40. The reference r rodrigo was not used to interpr et this result as nathaly l/abnormal. [facility] MmtnrciMKZDGU2880-03-80 06:53:00 Test Item Value Reference Range Interpretation Comments Trig (test code = Trig) 330 [facility] [id number] 06:53:00 Test Item Value Reference Range Interpretation Comments Chol (test code = Chol) 174 [facility] [id number] 06:53:00 Test Item Value Reference Range Interpretation Comments HDL (test code = HDL) 28 [facility] YataqypRSQFIJ0864-36-00 06:53:00 Test Item Value Reference Range Interpretation Comments CHD Risk (test code = CHD Risk) 6.21 1 4.00-7.30 [facility] ThmfxzoWKLQKK2608-69-91 06:53:00 Test Item Value Reference Range Interpretation Comments LDL (Calculated) (test code = LDL 80 (Calculated)) [facility] CenterZnhkcviUMCDYY7086-27-75 06:53:00 Test Item Value Reference Range Interpretation Comments VLDL (test code = VLDL) 66 1 [facility] [id number] 14:28:00 Test Item Value Reference Range Interpretation Comments CULTURE (BEAKER) (test No growth in 5 days code = 1095) POCT-GLUCOSE [id number] 12:04:00 Test Item Value Reference Range Interpretation Comments POC-GLUCOSE METER 179 mg/dL 70-110 H TESTED AT [facility] 6720 (BEAKER) (test code = ADOLFO [place] 1538) [address] BASIC METABOLIC [id number] 09:51:00 Test Item Value Reference Range Interpretation [...] PATIEN TS. CBC W/PLT COUNT & AUTO [id number] 09:20:00 Test Item Value Reference Range Interpretation [...] L 0.00-0.20 (test code = 417) 0.00POCT-GLUCOSE [id number] 07:15:00 Test Item Value Reference Range Interpretation Comments POC-GLUCOSE METER 246 mg/dL 70-110 H TESTED AT [facility] 6720 [facility] (test code = ADOLFO [place] 1538) [address] POCT-GLUCOSE [id number] 21:12:00 Test Item Value Reference Range Interpretation Comments POC-GLUCOSE METER 89 mg/dL 70-110 TESTED AT [place] [address] ([facility]) (test code = ADOLFO Willett [facility] [address] 1538) POCT-GLUCOSE [id number] 17:12:00 Test Item Value Reference Range Interpretation Comments POC-GLUCOSE METER 217 mg/dL 70-110 H TESTED AT [place] [address] ([facility]) (test [facility] = [facility] 1538) [address] URINE [id number] 12:07:00 Test Item Value Reference Range Interpretation Comments CULTURE ([facility]) (test <10,000 col/mL skin code = 1095) emily POCT-GLUCOSE [id number] 11:30:00 Test Item Value Reference Range Interpretation Comments POC-GLUCOSE METER 205 mg/dL 70-110 H TESTED AT [place] [address] ([facility]) (test code = [facility] 1538) [address] POCT-GLUCOSE [id number] 07:36:00 Test Item Value Reference Range Interpretation Comments POC-GLUCOSE METER 195 mg/dL 70-110 H TESTED AT [place] [address] ([facility]) (test code = [facility] Tamie [facility] 1538) [address] CBC W/PLT COUNT & AUTO [id number] 05:14:00 Test Item Value Reference Range Interpretation Comments WHITE BLOOD CELL COUNT (AKER) 6.7 K/ L 4.0-10.0 (test code = 775) RED BLOOD CELL COUNT ([facility]) 4.40 M/ L 4.20-5.80 (test code [...] 0.00-0.20 (test code = 417) 0.00BASIC METABOLIC [id number] 05:14:00 Test Item Value Reference Range Interpretation [...] NOT APPLICABLE FOR DIALYSIS PATIEN TS. POCT-GLUCOSE [id number] 21:04:00 Test Item Value Reference Range Interpretation Comments POC-GLUCOSE METER 178 mg/dL 70-110 H TESTED AT [place] [address] ([facility]) (test code = [facility] 1538) [id number] POCT-GLUCOSE [id number] 17:07:00 Test Item Value Reference Range Interpretation Comments POC-GLUCOSE METER 88 mg/dL 70-110 TESTED AT [place] [address] ([facility]) (test code = [facility] [address] 1538) POCT-GLUCOSE [id number] 12:30:00 Test Item Value Reference Range Interpretation Comments POC-GLUCOSE METER 107 mg/dL 70-110 TESTED AT [place] [address] ([facility]) (test code = [facility] 1538) [id number] POCT-GLUCOSE [id number] 07:46:00 Test Item Value Reference Range Interpretation Comments POC-GLUCOSE METER 169 mg/dL 70-110 H TESTED AT [place] [address] ([facility]) (test code = [facility] 1538) [address] CBC W/PLT COUNT & AUTO [id number] 07:42:00 Test Item Value Reference Range Interpretation Comments WHITE BLOOD CELL COUNT (BEAKER) 6.5 K/ L 4.0-10.0 (test code = 775) RED BLOOD CELL COUNT ([facility]) 4.57 M/ L 4.20-5.80 (test code [...] 0.00-0.20 (test code = 417) 0.00BASIC METABOLIC [id number] 06:13:00 Test Item Value Reference Range Interpretation [...] NOT APPLICABLE FOR DIALYSIS PATIEN TS. POCT-GLUCOSE [id number] 22:12:00 Test Item Value Reference Range Interpretation Comments POC-GLUCOSE METER 238 mg/dL 70-110 H TESTED AT [facility] 6720 (BEAKER) (test code = [facility] [place] 1538) [id number] POCT-GLUCOSE [id number] 17:25:00 Test Item Value Reference Range Interpretation Comments POC-GLUCOSE METER 102 mg/dL 70-110 TESTED AT [facility] 6720 (BEAKER) (test code = [facility] 1538) [address] URINALYSIS W/ [id number] 12:50:00 Test Item Value Reference Range Interpretation [...] /HPF SOURCE(BEAKER) (test code = 2795) POCT-GLUCOSE [id number] 12:04:00 Test Item Value Reference Range Interpretation Comments POC-GLUCOSE METER 226 mg/dL 70-110 H TESTED AT [facility] 6720 (BEAKER) (test code = [facility] [place] 1538) [address] POCT-GLUCOSE [id number] 08:00:00 Test Item Value Reference Range Interpretation Comments POC-GLUCOSE METER 300 mg/dL 70-110 H TESTED AT [facility] 6720 (BEAKER) (test code = [facility] [place] 1530) [address] BASIC METABOLIC [id number] 06:50:00 Test Item Value Reference Range Interpretation [...] PATIEN TS. CBC W/PLT COUNT & AUTO [id number] 06:01:00 Test Item Value Reference Range Interpretation [...] L 0.00-0.20 (test code = 417) 0.00POCT-GLUCOSE [id number] 21:25:00 Test Item Value Reference Range Interpretation Comments POC-GLUCOSE METER 279 mg/dL 70-110 H TESTED AT [facility] 6720 (BEAKER) (test code = [facility] [place] 1538) [address] HEMOGLOBIN [id number] 21:13:00 Test Item Value Reference Range Interpretation Comments HEMOGLOBIN A1C (BEAKER) (test code = 10.7 % 4.3-6.1 H 368) CBC W/PLT COUNT & AUTO [id number] 20:47:00 Test Item Value Reference Range Interpretation [...] L 0.00-0.20 (test code = 417) 0.00POCT-GLUCOSE [id number] 18:31:00 Test Item Value Reference Range Interpretation Comments POC-GLUCOSE METER 205 mg/dL 70-110 H TESTED AT [facility] 6720 (BEAKER) (test code = [facility] 1538) [id number] URINE [id number] 17:34:00 Test Item Value Reference Range Interpretation Comments [facility] (test [facility] = [facility]) [id number] 17:34:00 Test Item Value Reference Range Interpretation Comments Time (test code = Time) 12 min [facility] [id number] 17:34:00 Test Item Value Reference Range Interpretation Comments Time (test code = Time) 14 min [facility] [id number] 17:34:00 Test Item Value Reference Range Interpretation Comments Time (test code = Time) 8 min [facility] [id number] 17:34:00 Test Item Value Reference Range Interpretation Comments Time (test code = Time) 5 min [facility] [id number] 17:34:00 Test Item Value Reference Range Interpretation Comments Time (test code = Time) 17 min [facility] [id number] 17:34:00 Test Item Value Reference Range Interpretation Comments Time (test code = Time) 28 min [facility] [id number] 17:34:00 Test Item Value Reference Range Interpretation Comments Time (test code = Time) 20 min [facility] [id number] 17:34:00 Test Item Value Reference Range Interpretation Comments Time (test code = Time) 23 min [facility] [id number] 17:34:00 Test Item Value Reference Range Interpretation Comments Time (test code = Time) 26 min [facility] [id number] 17:34:00 Test Item Value Reference Range Interpretation Comments Time (test code = Time) 33 min [facility] [id number] 17:34:00 Test Item Value Reference Range Interpretation Comments Time (test code = Time) 2 min [facility] [id number] 17:34:00 Test Item Value Reference Range Interpretation Comments Time (test code = Time) 12 min [facility] [id number] 17:34:00 Test Item Value Reference Range Interpretation Comments Time (test code = Time) 14 min [facility] [id number] 17:34:00 Test Item Value Reference Range Interpretation Comments Time (test code = Time) 8 min [facility] [id number] 17:34:00 Test Item Value Reference Range Interpretation Comments Time (test code = Time) 5 min [facility] [id number] 17:34:00 Test Item Value Reference Range Interpretation Comments Time (test code = Time) 17 min [facility] [id number] 17:34:00 Test Item Value Reference Range Interpretation Comments Time (test code = Time) 28 min [facility] [id number] 17:34:00 Test Item Value Reference Range Interpretation Comments Time (test code = Time) 20 min [facility] [id number] 17:34:00 Test Item Value Reference Range Interpretation Comments Time (test code = Time) 23 min [facility] [id number] 17:34:00 Test Item Value Reference Range Interpretation Comments Time (test code = Time) 26 min [facility] [id number] 17:34:00 Test Item Value Reference Range Interpretation Comments Time (test code = Time) 33 min [facility] [id number] 17:34:00 Test Item Value Reference Range Interpretation Comments Time (test code = Time) 2 min [facility] [id number] 17:34:00 Test Item Value Reference Range Interpretation Comments Time (test code = Time) 12 min [facility] [id number] 17:34:00 Test Item Value Reference Range Interpretation Comments Time (test code = Time) 14 min [facility] [id number] 17:34:00 Test Item Value Reference Range Interpretation Comments Time (test code = Time) 8 min [facility] [id number] 17:34:00 Test Item Value Reference Range Interpretation Comments Time (test code = Time) 5 min [facility] [id number] 17:34:00 Test Item Value Reference Range Interpretation Comments Time (test code = Time) 17 min [facility] [id number] 17:34:00 Test Item Value Reference Range Interpretation Comments Time (test code = Time) 28 min [facility] [id number] 17:34:00 Test Item Value Reference Range Interpretation Comments Time (test code = Time) 20 min [facility] [id number] 17:34:00 Test Item Value Reference Range Interpretation Comments Time (test code = Time) 23 min [facility] [id number] 17:34:00 Test Item Value Reference Range Interpretation Comments Time (test code = Time) 26 min [facility] [id number] 17:34:00 Test Item Value Reference Range Interpretation Comments Time (test code = Time) 33 min [facility] [id number] 17:34:00 Test Item Value Reference Range Interpretation Comments Time (test code = Time) 2 min [facility] [id number] 17:34:00 Test Item Value Reference Range Interpretation Comments Time (test code = Time) 12 min [facility] [id number] 17:34:00 Test Item Value Reference Range Interpretation Comments Time (test code = Time) 14 min [facility] [id number] 17:34:00 Test Item Value Reference Range Interpretation Comments Time (test code = Time) 8 min [facility] [id number] 17:34:00 Test Item Value Reference Range Interpretation Comments Time (test code = Time) 5 min [facility] [id number] 17:34:00 Test Item Value Reference Range Interpretation Comments Time (test code = Time) 17 min [facility] [id number] 17:34:00 Test Item Value Reference Range Interpretation Comments Time (test code = Time) 28 min [facility] [id number] 17:34:00 Test Item Value Reference Range Interpretation Comments Time (test code = Time) 20 min [facility] [id number] 17:34:00 Test Item Value Reference Range Interpretation Comments Time (test code = Time) 23 min [facility] [id number] 17:34:00 Test Item Value Reference Range Interpretation Comments Time (test code = Time) 26 min [facility] [id number] 17:34:00 Test Item Value Reference Range Interpretation Comments Time (test code = Time) 33 min [facility] [id number] 17:34:00 Test Item Value Reference Range Interpretation Comments Time (test code = Time) 2 min [facility] [id number] 17:34:00 Test Item Value Reference Range Interpretation Comments Time (test code = Time) 12 min [facility] [id number] 17:34:00 Test Item Value Reference Range Interpretation Comments Time (test code = Time) 14 min [facility] [id number] 17:34:00 Test Item Value Reference Range Interpretation Comments Time (test code = Time) 8 min [facility] [id number] 17:34:00 Test Item Value Reference Range Interpretation Comments Time (test code = Time) 5 min [facility] [id number] 17:34:00 Test Item Value Reference Range Interpretation Comments Time (test code = Time) 17 min [facility] [id number] 17:34:00 Test Item Value Reference Range Interpretation Comments Time (test code = Time) 28 min [facility] [id number] 17:34:00 Test Item Value Reference Range Interpretation Comments Time (test code = Time) 20 min [facility] [id number] 17:34:00 Test Item Value Reference Range Interpretation Comments Time (test code = Time) 23 min [facility] [id number] 17:34:00 Test Item Value Reference Range Interpretation Comments Time (test code = Time) 26 min [facility] [id number] 17:34:00 Test Item Value Reference Range Interpretation Comments Time (test code = Time) 33 min [facility] [id number] 17:34:00 Test Item Value Reference Range Interpretation Comments Time (test code = Time) 2 min [facility] [id number] 17:34:00 Test Item Value Reference Range Interpretation Comments Time (test code = Time) 12 min [facility] [id number] 17:34:00 Test Item Value Reference Range Interpretation Comments Time (test code = Time) 14 min [facility] [id number] 17:34:00 Test Item Value Reference Range Interpretation Comments Time (test code = Time) 8 min [facility] [id number] 17:34:00 Test Item Value Reference Range Interpretation Comments Time (test code = Time) 5 min [facility] [id number] 17:34:00 Test Item Value Reference Range Interpretation Comments Time (test code = Time) 17 min [facility] [id number] 17:34:00 Test Item Value Reference Range Interpretation Comments Time (test code = Time) 28 min [facility] [id number] 17:34:00 Test Item Value Reference Range Interpretation Comments Time (test code = Time) 20 min [facility] [id number] 17:34:00 Test Item Value Reference Range Interpretation Comments Time (test code = Time) 23 min [facility] [id number] 17:34:00 Test Item Value Reference Range Interpretation Comments Time (test code = Time) 26 min [facility] [id number] 17:34:00 Test Item Value Reference Range Interpretation Comments Time (test code = Time) 33 min [facility]
--- NOTE | 2022-10-24 18:40 | RAD REPORT ---
EXAM DESCRIPTION: CT - Chest Abd Pelvis Wo Con - 10/24/2022 5:45 pm CLINICAL HISTORY: Abdominal distention;Dyspnea COMPARISON: Chest For Pe Angio dated 01/24/2019; Thorax W/ Con dated 11/24/2016; CT CHEST ABD PELVIS WO CONT dated 02/23/2014; Abdomen Pelvis Wo Contrast dated 10/06/2022 TECHNIQUE: Thin axial CT images of the chest, abdomen, and pelvis, performed without IV contrast. Mu ltiplanar reformats were generated and reviewed. . All CT scans are performed using dose optimization technique as appropriate and may include automated exposure control or mA/KV adjustment according to patient size. FINDINGS: The lungs are clear.No pleural or pericardial effusion.No intrathoracic adenopathy. Right arm PICC is present. The liver, spleen, pancreas, left adrenal gland, and kidneys are within normal limits. Stable right a drenal nodule measuring 1.6 cm, containing macroscopic fat, suggestive of an adenoma. Minimal fat str anding at the liver hilum, nonspecific, could be seen in the setting of volume overload, or hepatitis , among other considerations. No bowel obstruction, free air, free fluid or abscess. Mild colonic diverticulosis. . No pathologic lymphadenopathy in the abdomen or pelvis. Lower anterior abdominal wall skin thickening and subcutaneous edema, nonspecific. No worrisome osseo us finding. IMPRESSION: No acute findings in the chest, abdomen, or pelvis. Minimal fat stranding at the liver hilum is nonspecific, and could be seen in the setting of volume o verload or hepatitis, although other considerations. Please correlate clinically. Lower anterior abdominal wall skin thickening and subcutaneous edema, could also relate to third-spac ing. Please correlate clinically for presence of cellulitis.
--- NOTE | 2022-10-24 18:43 | ER ---
Nurse's Notes [facility] Name: Ramirez Chaudhari Age: 57 yrs Sex: Male : 1965 Arrival Date: 10/24/2022 Time: 16:33 Bed 19 Private MD: Diagnosis: Generalized edema;nursing home (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 anticoagulants;Anemia, unspecified;Obesity, unspecified;Other acute kidney failure-CHRONIC;Pain in right upper arm-PICC LINE Presentation: 10/24 16:42 Chief complaint: Patient states: bilateral leg swelling and blisters to the right leg cm10 onset yesterday. Pt was D/C on the from this hospital and is receiving IV ABX for osteo to left leg. Pt has picc line to right arm. Coronavirus screen: Vaccine status: Patient reports being unvaccinated. Client denies travel out of the [place] in the last 14 days. Ebola Screen: Patient denies travel to an Ebola-affected area in the 21 days before illness onset. No symptoms or risks identified at this time. Initial Sepsis Screen: Does the patient meet any 2 criteria? No. Patient's initial sepsis screen is negative. Does the patient have a suspected source of infection?. Risk Assessment: Do you want to hurt yourself or someone else? Patient reports no desire to harm self or others. Onset of symptoms was October 20, 2022. 16:42 Method Of Arrival: Wheelchair cm10 16:42 Acuity: NOHEMI 3 cm10 Historical: - Allergies: 16:45 Ibuprofen; cm10 16:45 metformin; cm10 16:45 Spironolactone; cm10 - PMHx: 16:45 ADD/ADHD; AFIB; Congestive heart failure; Diabetes - IDDM; GERD; Gout; High cm10 Cholesterol; Hydrocele Left Testicle; Hypertension; Hypothyroidism; Migraines; Paraplegia; Renal Disease; Spinal Stroke; - Immunization history:: Adult Immunizations unknown. - Social history:: Smoking status: Patient denies any tobacco usage or history of. Screenin:45 [facility] ED Fall Risk Assessment (Adult) Score/Fall Risk Level 0 - 2 = Low Risk. Abuse eh3 screen: Denies threats or abuse. Denies injuries from another. Nutritional screening: No deficits noted. Tuberculosis screening: No symptoms or risk factors identified. Assessment: 16:45 General: Appears in no apparent distress. uncomfortable, Behavior is calm, cooperative, eh3 appropriate for age. Pain: Complains of pain in left leg and right leg and abdomen. Neuro: Level of Consciousness is awake, alert, obeys commands, Oriented to person, place, time, situation. Cardiovascular: Capillary refill < 3 seconds Patient's skin is warm and dry. Cardiovascular: Edema is 2+ to left midcalf and right midcalf. Respiratory: Airway is patent Respiratory effort is even, unlabored, Respiratory pattern is regular, symmetrical. GI: Abdomen is round non-distended. Derm: Skin is pink, warm \T\ dry. Musculoskeletal: Circulation, motion, and sensation intact. 17:30 Reassessment: Patient appears in no apparent distress at this time. Patient and/or 3 family updated on plan of care and expected duration. Pain level reassessed. Patient is alert, oriented x 3, equal unlabored respirations, skin warm/dry/pink. 18:30 Reassessment: Patient appears in no apparent distress at this time. Patient and/or 3 family updated on plan of care and expected duration. Pain level reassessed. Patient is alert, oriented x 3, equal unlabored respirations, skin warm/dry/pink. 19:30 Reassessment: Patient appears in no apparent distress at this time. Patient and/or 3 family updated on plan of care and expected duration. Pain level reassessed. Patient is alert, oriented x 3, equal unlabored respirations, skin warm/dry/pink. 20:30 Reassessment: Patient appears in no apparent distress at this time. Patient and/or 3 family updated on plan of care and expected duration. Pain level reassessed. Patient is alert, oriented x 3, equal unlabored respirations, skin warm/dry/pink. Vital Signs: 16:42 BP 154 / 89; Pulse 63; Resp 18; Temp 98.8; Pulse Ox 95% ; Weight 120.66 kg; Height 5 cm10 ft. 8 in. ; Pain 10/10; 17:30 BP 157 / 91; Pulse 60; Resp 18; Pulse Ox 96% on R/A; eh3 18:30 BP 159 / 86; Pulse 60; Resp 16; Pulse Ox 96% on R/A; eh3 19:30 BP 163 / 83; Pulse 61; Resp 15; Pulse Ox 95% on R/A; eh3 20:30 BP 141 / 72; Pulse 61; Resp 17; Pulse Ox 96% on R/A; eh3 16:42 Body Mass Index 40.44 (120.66 kg, 172.72 cm) cm10 16:42 Pain Scale: Adult cm10 ED Course: 16:36 Patient arrived in ED. ts1 16:44 Hank Saunders MD is Attending Physician. himanshu 16:44 Triage completed. cm10 16:45 Arm band placed on Patient placed in an exam room, on a stretcher. cm10 16:45 Patient has correct armband on for positive identification. Bed in low position. Call eh3 light in reach. Side rails up X2. Adult w/ patient. Provided Education on: Use of call adler. Client placed on continuous cardiac and pulse oximetry monitoring. NIBP monitoring applied. Door closed. Noise minimized. Lights dimmed. Warm blanket given. 16:45 Accessed PICC line. using per hospital protocol. Clean \T\ dry. Dressing intact. Good eh3 blood return. Flushes easily. 17:38 Arabella Kovacs, RN is Primary Nurse. eh3 17:46 CT Chest Abdomen Pelvis W/O Contrast In Process Unspecified. EDMS 18:36 Gonzalo Powell MD is Hospitalizing Provider. himanshu 18:38 US Extremity Venous Unilateral Ltd In Process Unspecified. EDMS 18:38 US Extremity Venous W Compression Jeff In Process Unspecified. EDMS 19:06 XRAY Chest (1 view) In Process Unspecified. EDMS 20:18 Misty Horan MD is Referral Physician. himanshu 20:45 No provider procedures requiring assistance completed. Patient did not have IV access eh3 during this emergency room visit. 20:48 Wound care: wound vac dressing changed. fu Administered Medications: 18:30 Drug: NS 0.9% IV 1000 ml Route: IV; Rate: 75 ml/hr; Site: PICC; eh3 20:44 Follow up: IV Status: Completed infusion; IV Intake: 150ml eh3 20:30 Drug: Furosemide IVP 40 mg Route: IVP; Site: PICC; eh3 20:44 Follow up: Response: No adverse reaction eh3 Medication: 20:47 VIS not applicable for this client. eh3 Intake: 20:44 IV: 150ml; Total: 150ml. eh3 Outcome: 18:43 Decision to Hospitalize by Provider. himanshu 20:18 Discharge ordered by MD. himanshu 20:47 Discharged to home via wheelchair, with significant other. 3 20:47 Condition: stable 20:47 Discharge instructions given to patient, significant other, Instructed on discharge instructions, follow up and referral plans. Demonstrated understanding of instructions, follow-up care. 20:57 Patient left the ED. 3 Signatures: Dispatcher [employer] EDMS Hank Saunders MD MD cha Umadhay, Felix, Arabella Jett RN, RN RN 3 Karmen Reinoso PAS PAS ts1 Татьяна Schmitz RN RN cm10 Corrections: (The following items were deleted from the chart) 20:10 18:30 BP 119 / 83; Pulse 79bpm; Resp 18bpm; Pulse Ox 100% RA; 3 3 20:10 19:30 BP 125 / 93; Pulse 79bpm; Resp 18bpm; Pulse Ox 100% RA; 3 3
--- NOTE | 2022-10-24 18:43 | EDPHYS ---
Physician Documentation [facility] Name: Ramirez Chaudhari Age: 57 yrs Sex: Male : 1965 Arrival Date: 10/24/2022 Time: 16:33 Bed 19 Private MD: ED Physician Hank Saunders HPI: 10/24 17:36 This 57 yrs old Male presents to ER via Wheelchair with complaints of Leg himanshu Swelling, Facial Swelling, Picc line bleeding. 17:36 total body edema. Onset: The symptoms/episode began/occurred 2 day(s) ago. Severity of himanshu symptoms: At their worst the symptoms were mild. Historical: - Allergies: 16:45 Ibuprofen; cm10 16:45 metformin; cm10 16:45 Spironolactone; cm10 - PMHx: 16:45 ADD/ADHD; AFIB; Congestive heart failure; Diabetes - IDDM; GERD; Gout; High cm10 Cholesterol; Hydrocele Left Testicle; Hypertension; Hypothyroidism; Migraines; Paraplegia; Renal Disease; Spinal Stroke; - Immunization history:: Adult Immunizations unknown. - Social history:: Smoking status: Patient denies any tobacco usage or history of. ROS: 17:38 Constitutional: Negative for fever, chills, and weight loss, Eyes: Negative for injury, himanshu pain, redness, and discharge, ENT: Negative for injury, pain, and discharge, Neck: Negative for injury, pain, and swelling, Cardiovascular: Negative for chest pain, palpitations, and edema, Respiratory: Negative for shortness of breath, cough, wheezing, and pleuritic chest pain, Abdomen/GI: Negative for abdominal pain, nausea, vomiting, diarrhea, and constipation, Back: Negative for injury and pain, : Negative for injury, bleeding, discharge, and swelling, Skin: Negative for injury, rash, and discoloration, Neuro: Negative for headache, weakness, numbness, tingling, and seizure, Psych: Negative for depression, anxiety, suicide ideation, homicidal ideation, and hallucinations, Allergy/Immunology: Negative for hives, rash, and allergies, Endocrine: Negative for neck swelling, polydipsia, polyuria, polyphagia, and marked weight changes, Hematologic/Lymphatic: Negative for swollen nodes, abnormal bleeding, and unusual bruising. 17:38 MS/extremity: Positive for swelling, of the abdomen, right leg and left leg. Exam: 17:38 Constitutional: This is a well developed, well nourished patient who is awake, alert, himanshu and in no acute distress. Head/Face: Normocephalic, atraumatic. Eyes: Pupils equal round and reactive to light, extra-ocular motions intact. Lids and lashes normal. Conjunctiva and sclera are non-icteric and not injected. Cornea within normal limits. Periorbital areas with no swelling, redness, or edema. ENT: Nares patent. No nasal discharge, no septal abnormalities noted. Tympanic membranes are normal and external auditory canals are clear. Oropharynx with no redness, swelling, or masses, exudates, or evidence of obstruction, uvula midline. Mucous membranes moist. Neck: Trachea midline, no thyromegaly or masses palpated, and no cervical lymphadenopathy. Supple, full range of motion without nuchal rigidity, or vertebral point tenderness. No Meningismus. Chest/axilla: Normal chest wall appearance and motion. Nontender with no deformity. No lesions are appreciated. Cardiovascular: Regular rate and rhythm with a normal S1 and S2. No gallops, murmurs, or rubs. Normal PMI, no JVD. No pulse deficits. Respiratory: Lungs have equal breath sounds bilaterally, clear to auscultation and percussion. No rales, rhonchi or wheezes noted. No increased work of breathing, no retractions or nasal flaring. Abdomen/GI: Soft, non-tender, with normal bowel sounds. No distension or tympany. No guarding or rebound. No evidence of tenderness throughout. Back: No spinal tenderness. No costovertebral tenderness. Full range of motion. Male : Normal genitalia with no discharge or lesions. Skin: Warm, dry with normal turgor. Normal color with no rashes, no lesions, and no evidence of cellulitis. Neuro: Awake and alert, GCS 15, oriented to person, place, time, and situation. Cranial nerves II-XII grossly intact. Motor strength 5/5 in all extremities. Sensory grossly intact. Cerebellar exam normal. Normal gait. Psych: Awake, alert, with orientation to person, place and time. Behavior, mood, and affect are within normal limits. 17:38 Musculoskeletal/extremity: Exam is negative for DVT Exam: pain, swelling, tenderness. 20:01 ECG was reviewed by the Attending Physician. [facility] Vital Signs: 16:42 BP 154 / 89; Pulse 63; Resp 18; Temp 98.8; Pulse Ox 95% ; Weight 120.66 kg; Height 5 cm10 ft. 8 in. ; Pain 10/10; 17:30 BP 157 / 91; Pulse 60; Resp 18; Pulse Ox 96% on R/A; eh3 18:30 BP 159 / 86; Pulse 60; Resp 16; Pulse Ox 96% on R/A; eh3 19:30 BP 163 / 83; Pulse 61; Resp 15; Pulse Ox 95% on R/A; eh3 20:30 BP 141 / 72; Pulse 61; Resp 17; Pulse Ox 96% on R/A; eh3 16:42 Body Mass Index 40.44 (120.66 kg, 172.72 cm) cm10 16:42 Pain Scale: Adult cm10 MDM: 16:44 Patient medically screened. [facility] 18:43 Differential Diagnosis sepsis. Data reviewed: vital signs, nurses notes, EMS record, [facility] lab test result(s), EKG, radiologic studies, CT scan, doppler, plain films. Consideration of Admission/Observation Escalation of care including admission/observation considered. I considered the following discharge prescriptions or medication management in the emergency department Medications were administered in the Emergency Department. See MAR. Independent interpretation of the following test(s) in the Emergency Department EKG: See my EKG interpretation above. Test considered but Not performed: MRI: NO ABD MRI. Care significantly affected by the following chronic conditions: Diabetes, Hypertension, Obesity, Liver Disease. Counseling: I had a detailed discussion with the patient and/or guardian regarding the historical points, exam findings, and any diagnostic results supporting the discharge/admit diagnosis, lab results, radiology results, the need for further work-up and treatment in the hospital. 10/24 17:33 Order name: Basic Metabolic Panel; Complete Time: 19:20 [facility] 10/24 17:33 Order name: CBC with Diff; Complete Time: 19:07 [facility] 10/24 17:33 Order name: LFT's; Complete Time: 19:20 [facility] 10/24 17:33 Order name: Magnesium; Complete Time: 19:20 [facility] 10/24 17:33 Order name: NT PRO-BNP; Complete Time: 19:20 [facility] 10/24 17:33 Order name: PT-INR; Complete Time: 19:00 [facility] 10/24 17:33 Order name: Troponin HS; Complete Time: 19:20 [facility] 10/24 17:33 Order name: Urinalysis w/ reflexes; Complete Time: 19:49 [facility] 10/24 17:33 Order name: Lipase; Complete Time: 19:20 [facility] 10/24 17:33 Order name: AMMONIA [facility] 10/24 17:33 Order name: XRAY Chest (1 view); Complete Time: 19:49 [facility] 10/24 17:33 Order name: CT Chest Abdomen Pelvis W/O Contrast; Complete Time: 18:45 [facility] 10/24 17:33 Order name: Extremity Venous Unilateral Ltd; Complete Time: 19:00 [facility] 10/24 17:38 Order name: US Extremity Venous W Compression Jeff; Complete Time: 19:00 [facility] 10/24 17:33 Order name: EKG; Complete Time: 17:34 [facility] 10/24 17:33 Order name: Cardiac monitoring; Complete Time: 17:39 [facility] 10/24 17:33 Order name: EKG - Nurse/Tech; Complete Time: 19:24 [facility] 10/24 17:33 Order name: IV Saline Lock; Complete Time: 18:50 [facility] 10/24 17:33 Order name: Labs collected and sent; Complete Time: 18:50 [facility] 10/24 17:33 Order name: O2 Per Protocol; Complete Time: 17:39 [facility] 10/24 17:33 Order name: O2 Sat Monitoring; Complete Time: 17:39 [facility] 10/24 19:31 Order name: Misc. Order: RECOLLECT AMMONIA; Complete Time: 19:57 [facility] 10/24 20:16 Order name: Wound dressing: PLEASE CHANGE WOUND VAC DRESSING; Complete Time: 20:43 [facility] EC:01 Rate is 61 beats/min. Rhythm is regular. QRS [place] is Normal. [place] interval is normal. QRS himanshu interval is normal. QT interval is normal. No Q waves. T waves are Normal. No ST changes noted. Clinical impression: NSR w/ Non-specific ST/T Changes, Abnormal EKG without significant change, and No evidence of ischemia. Interpreted by me. Reviewed by me. Administered Medications: 18:30 Drug: NS 0.9% IV 1000 ml Route: IV; Rate: 75 ml/hr; Site: PICC; [facility] 20:44 Follow up: IV Status: Completed infusion; IV Intake: 150ml eh3 20:30 Drug: Furosemide IVP 40 mg Route: IVP; Site: PICC; [facility] 20:44 Follow up: Response: No adverse reaction eh3 Disposition Summary: 10/24/22 20:18 Discharge Ordered Location: Home(10/24/22 20:18) himanshu Problem: new(10/24/22 20:18) himanshu Symptoms: have improved(10/24/22 20:18) himanshu Condition: Stable(10/24/22 20:18) himanshu Diagnosis - Generalized edema(10/24/22 20:18) himanshu - [facility] (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 anticoagulants himanshu - Anemia, unspecified himanshu - Obesity, unspecified himanshu - Other acute kidney failure - CHRONIC himanshu - Pain in right upper arm - PICC LINE himanshu Followup: himanshu - With: Private Physician - When: 2 - 3 days - Reason: Recheck today's complaints, Continuance of care, Re-evaluation by your physician Followup: himanshu - With: Misty Horan MD - When: 2 - 3 days - Reason: Recheck today's complaints, Re-evaluation by your physician Discharge Instructions: - Discharge Summary Sheet himanshu - Anemia himanshu - Atrial Fibrillation himanshu - Edema himanshu - Obesity, Adult himanshu - Chronic Kidney Disease, Adult, [id number] himanshu Forms: - Medication Reconciliation Form himanshu - Thank You Letter himanshu - Antibiotic Education himanshu - Prescription Opioid Use himanshu - Patient Portal Instructions himanshu - Leadership Thank You Letter himanshu Signatures: Dispatcher [employer] EDHank Holt MD MD cha Attema, Lee, CYLINDER SANDER OPERATOR-C CYLINDER SANDER OPERATOR-Cla1 Arabella Kovacs RN RN 3 Nicole Winter 1 Татьяна Schmitz, RN RN cm10 Corrections: (The following items were deleted from the chart) 20:01 18:43 Inpatient Admission himanshu himanshu 20:01 18:43 Gonzalo Powell himanshu himanshu 20:01 18:43 Telemetry/MedSurg (Inpatient) himanshu himanshu 20:01 18:43 Fair himanshu himanshu 20:01 18:43 new himanshu himanshu 20:01 18:43 have improved himanshu himanshu 20:01 18:43 Standard himanshu himanshu 20:01 18:43 himanshu himanshu 20:01 18:43 Acute embolism and thrombosis of deep veins of right upper extremity himanshu himanshu 20:01 18:43 Other specified complication of vascular prosthetic devices, implants and grafts, himanshu initial encounter himanshu 20:01 18:43 Generalized edema himanshu himanshu
--- NOTE | 2022-10-24 18:51 | RAD REPORT ---
EXAM DESCRIPTION: US - Extremity Venous Uni Ltd - 10/24/2022 6:36 pm CLINICAL HISTORY: Pain, swelling COMPARISON: None. TECHNIQUE: Real-time sonographic evaluation of the right upper extremity deep venous system was perf ormed. FINDINGS: Preserved compressibility, however with no appreciable flow of the proximal to mid brachia l vein. Normal compressibility, flow augmentation, phasic flow and spontaneous flow is identified in the remainder of the right upper extremity deep venous system. No intraluminal filling defects seen. IMPRESSION: Preserved compressibility, however with no appreciable flow of the proximal to mid brach ial vein. Slow flow is favored over a subocclusive thrombus.
--- NOTE | 2022-10-24 18:53 | RAD REPORT ---
EXAM DESCRIPTION: US - Extrem Venous W Compress Jeff - 10/24/2022 6:36 pm CLINICAL HISTORY: Pain, swelling COMPARISON: None. TECHNIQUE: Real-time sonographic evaluation of the bilateral lower extremity deep venous systems was performed. FINDINGS: Normal compressibility, flow augmentation, phasic flow and spontaneous flow is identified in both the left and right lower extremity deep venous systems. No intraluminal filling defects seen. IMPRESSION: No DVT in either lower extremity.
[2022-10-24 18:58] LABS: Absolute Lymphocytes (CBC) 0.9 K/uL (0.7-4.9); Hematocrit 26.5 % (39.6-49.0); Lymphocytes % 14.8 % (15.3-44.8); MCV 86.1 fL (80-100); MPV 9.8 fL (7.6-11.3); Platelets 141 thou/uL (152-406); RBC Red Blood Cell Count 3.08 M/uL (4.33-5.43)
[2022-10-24 18:59] LABS: Protime INR 1.55
[2022-10-24] MEDS ORDERED: NA CHLORIDE 0.9% 1,000 ML ONE (19:15)
[2022-10-24 19:16] LABS: Albumin 2.7 g/dL (3.4-5.0); Bilirubin Direct 0.1 mg/dL (0-0.2); Bilirubin Indirect, Calculated 0.2 mg/dL (0.2-0.8); Bilirubin Total 0.3 mg/dL (0.2-1.0); Magnesium 2.1 mg/dL (1.6-2.4); Protein, Total 6.8 g/dL (6.4-8.2); Troponin High Sensitivity 13.6 pg/mL (<58.9)
--- NOTE | 2022-10-24 19:24 | RAD REPORT ---
EXAM DESCRIPTION: RADChest Single View10/24/2022 7:04 pm CLINICAL HISTORY: COUGH COMPARISON: Chest Single View dated 10/10/2022; Chest Single View dated 10/12/2022; Chest Abd Pelvis Wo Con dated 10/24/2022 TECHNIQUE: Portable AP view of the chest. FINDINGS: The lungs show no focal consolidation. Stable central interstitial prominence. Pneumothora x or effusion. The cardiomediastinal contours are unremarkable. IMPRESSION: Stable central interstitial prominence, could relate to mild congestion, or interstitial pneumonitis of indeterminate age.
[2022-10-24 19:47] LABS: Renal Epithelial <5 /HPF (None Seen); Specific Gravity 1.012 (1.005-1.030); Urine Bacteria <20 /HPF (<20); Urine Bilirubin NEGATIVE (Negative); Urine Blood Trace (Negative); Urine Clarity Clear (Clear); Urine Color Light-Yellow (Yellow); Urine Glucose 1+ (Negative); Urine Mucus Slight /HPF (None Seen); Urine Protein 2+ (Negative); Urine RBC <5 /HPF (None Seen); Urine Urobilinogen Normal (Normal); Urine pH 6.5 (5.0-7.0)
[2022-10-24] MEDS ORDERED: FUROSEMIDE 40 MG/4 ML VIAL ONE (20:29)
[2022-10-24 21:10] VITALS: TEMP 98.8
[2022-10-24 21:17] VITALS: BP 141/72; O2SAT 96
--- NOTE | 2022-10-27 18:06 | EKG ---
Test Date: 2022-10-24 Test Time: 19:07:25 Accounts Supervisor: BERT MEASUREMENT RESULTS: Intervals: Rate: 61 SD: 130 QRSD: 106 QT: 424 QTc: 426 [place]rell: P: 5 SD: 130 QRS: 100 T: 77 INTERPRETIVE STATEMENTS: Normal sinus rhythm Incomplete right bundle branch block Possible Right ventricular hypertrophy Nonspecific ST abnormality Abnormal ECG Compared to ECG 10/15/2022 01:00:24 Incomplete right bundle-branch block now present ST (T wave) deviation now present Atrial premature complex(es) no longer present Right bundle-branch block no longer present Electronically Signed On 10-27-22 17:59:12 CDT by Kofi Mo
== END 2022-10-24 20:57 | disposition home or self-care (01) ==
LOC: ER 16:33
DX: R60.1 Generalized edema (principal); M79.621 Pain in right upper arm; E11.22 Type 2 diabetes mellitus with diabetic chronic kidney disease; I13.0 Hypertensive heart and chronic kidney disease with heart failure and stage 1 through stage 4 chronic kidney disease, or unspecified chronic kidney disease; N18.9 Chronic kidney disease, unspecified; I50.9 Heart failure, unspecified; D64.9 Anemia, unspecified; E66.9 Obesity, unspecified; G82.20 Paraplegia, unspecified; Z79.01 Long term (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 anticoagulants; Z88.6 Allergy status to analgesic agent; Z88.8 Allergy status to other drugs, medicaments and biological substances
CPT/HCPCS: 96361; 93005; 85025; 81001; 80048; 36415; 82140; 83735; 85610; 80076; 84484; 83690; 83880; 71250; 74176; 71045; 93970; 93971; 96374; 99285; J1940; J7030

== ENCOUNTER 2022-11-09 03:14 | Inpatient (IN) | payer MEDICARE ==
--- OUTSIDE RECORDS SUMMARY | 2022-11-09 03:27 | XMS REPORT | Continuity of Care Document ---
:1965 Author Organization [facility] t Address [address] [place] [address] Care Team Providers Name Role Phone Priya Baltazar MD, William Primary Care Physician [phone] Ramon Powers Attending Clinician Unavailable [email or web address] [...] REPLACEMENT HMO) [employer] C1 [id number] Common [facility] Problems Condition Condition Condition Status Onset Resolution Last Treating Co mments Source Name Details Category Date Date Treatment Clinician Date ACUTE ACUTE Diagnosis Active 2020-06-27 [facility] CHEST PAIN CHEST PAIN 06-14 21:53:00 l Active 00:00: [place] 06/14/2020 [facility] CHEST PAIN CHEST Diagnosis Active 2020-06-[address] [facility] 06-14 23:21:00 l Active 00:00: [place] 06/14/2020 00 [facility] DM2 DM2 Disease Recurre [facility] (diabetes (diabetes nce [facility] mellitus, mellitus, 00:00: [facility] timothy type 2) type 2) 00 Center Epididymit Epididymit Disease Active [facility] is, left is, left 4-[facility] 00:[facility]: [facility] 00 [place] HTN HTN Disease Active [facility] (hypertens [...] Memoria 06/20/201306-20 01:18:00 l [facility] 00:00: [place] 00 NO ORDERS NO ORDERS Diagnosis Active 2013-11-08 Memoria WRITTEN WRITTEN 05-24 01:18:00 l Active 00:00: [place] 05/24/2013 00 [facility] NEUROGENIC NEUROGENI Diagnosis Active 2014-07-28 Memoria BLADDER C BLADDER 04-19 16:13:00 l Active 00:00: [place] 04/19/2013 00 [facility] TBI TBI Diagnosis Active 2013-12-12 Mem oria Active 03-09 12:27:00 l 03/09/2000 23:59: Jose barajas [facility] 00 SCI SCI Diagnosis Active 2014-09-13 Mem oria Active 03-09 16:37:00 l 03/09/2000 08:00: Jose barajas [facility] 00 Diabetes(C Diabetes( Problem Active 2014-02-22 Memoria onfirmed) Confirmed) 19:04:26 l Active [place] Problem 02/22/2014 [facility] GOUT(Confi GOUT(Conf Problem Active 2014-02-22 Memoria rmed) irmed) 19:04:26 l Active [place] Problem 02/22/2014 [facility] Pure Pure Problem Active 2014-02-22 Memor ia hyperchole hyperchole 19:04:26 l sterolemia sterolemia He rmann (disorder) (disorder) Active Problem 02/22/2014 [facility] Impotence Impotence Problem Active 2020-06-17 Memoria (disorder) (disorder) 22:29:12 l Active [place] Problem 06/17/2020 KENIA [facility] Spinal Spinal Problem Active 2020-06-17 Brandon karina cord cord 22:29:12 l injury injury [place] (disorder) (disorder) Active Problem 06/17/2020 KENIA SAMANIEGO,[facility] CHEST CHEST Diagnosis Active 2020-06-27 Mem oria PAIN, PAIN, 21:53:00 l UNSPECIFIE UNSPECIFIE He shreya D D Active [facility] ILLNESS, ILLNESS, Diagnosis Active 2020-06-14 Memoria UNSPECIFIE UNSPECIFIE 23:21:00 l D D Active Shady [facility] [id number] Bladder Problem Common calculus [facility] Neurogenic Neurogenic Problem C ommon bladder bladder [facility] Paraplegia Paraplegic Problem C ommon spinal Spirit paralysis [facility] [id number] Gross Problem Common hematuria [facility] [id number] Neurogenic Problem Co mmon bladder, [facility] flaccid [facility] [id number] Trauma of Problem Comm on urethra, [facility] encounter [facility] [id number] Complicate Problem Com mon d UTI [facility] (urinary - [facility] infection) [facility] Spinal Spinal Problem Resolve 2020-06-17 2020-06-17 Memoria cord cord d 11-15 22:29:12 22:29:12 l stroke stroke 00:00: [place]ady (disorder) (disorder) 00 Resolved 11/15/2013 Problem 06/17/2020 apr 19 2013 [facility] Diabetes Diabetes Problem Resolve 2020-06-17 2020-06-17 Memoria mellitus mellitus d 07-08 22:29:12 22:29:12 l (disorder) (disorder) 00:00: Abner cash Resolved 00 07/08/2013 Problem 06/17/2020 [facility] GOUT(Confi Problem Resolve 2020-06-17 2020-06-17 Memoria rmed) GOUT(Confi d 07-08 22:29:12 22:29:12 l rmed) 00:00: [place] Resolved 00 07/08/2013 Problem 06/17/2020 [facility] Hyperchole Problem Resolve 2020-06-17 2020-06-17 Memoria sterolemia Hyperchole d 07-08 22:29:12 22:29:12 l (disorder) sterolemia 00:00: Abner cash (disorder) 00 Resolved 07/08/2013 Problem 06/17/2020 [facility] Essential Essential Problem Resolve 2020-06-17 2020-06-17 Memoria hypertensi hypertensi d 07-08 22:29:12 22:29:12 l on on 00:00: [place] (disorder) (disorder) 00 Resolved 07/08/2013 Problem 06/17/2020 [facility] Allergies, Adverse Reactions, Alerts Allergy Allergy [...] Stop Date Source Natural brother Kidney disease [facility] Natural mother Diabetes [facility] Natural sister Diabetes [facility] Social History Social Habit Start Date Stop Date Quantity Comments Source Gender identity [facility] of Tobacco [facility] - Use [facility] History of Social 2021-09-19 2021-09-[address] function 00:00:00 00:00:00 Hospital Tobacco use and 2021-09-19 2021-09-19 Smokeless [facility] 00:00:00 00:00:00 tobacco non-user Hospital Alcohol intake 2016-07-01 2016-07-01 Current [facility] 00:00:00 00:00:00 non-drinker of Medical Ce nter alcohol (finding) Social History 2013-04-20 2013-04-20 [facility] 11:02:37 11:02:37 Sex Ass[birth year] At [birth year] [facility] 00:00:00 00:00:00 Medical Center Smoking Status Start Date Stop Date Source Never Smoker [facility] consumption unknown Ex-smoker 2016-07-01 00:00:00 2016-07-01 [facility] 00:00:00 Center Medications Ordered Filled Start Stop Current Ordering Indication Dosage Frequency Signature Comments Components Source Medication Medication Date Date Medication? Clinician (SIG) Name Name Cipro 500 Cipro 500 2022-0 2023- No 1{table BID Cipro 500 MG MG [...] tablet 02 (two) l times a day. ciprofloxac 2022-0 Yes 750mg Q.5D Take 750 [...] a l tablet day with meals. colchicine 2022-0 2022- No .6mg QD Take [...] l mouth daily for 30 days. colchicine .6mg QD Take 1 Meth segundo 0.6 mg 09-[address] tablet 00:00: 04:59 (0.6 mg [...] day, # 14 cap, 0 Refill(s), Pharmacy: [facility] 527, 172.72, cm, 06/14/20 23:37:00 CDT, Height, 106.545, kg, 06/14/20 23:37:00 CDT, Weight cefdinir Yes 300 mg = 1 Mem oria 300 MG Oral 4-09 cap, PO, l Capsule 22:52: Q12H, X 7 Love nn 00 day, # 14 cap, 0 Refill(s), Pharmacy: [facility] 527, 172.72, cm, 06/14/20 23:37:00 CDT, Height, 106.545, kg, 06/14/20 23:37:00 CDT, Weight cefdinir 2021-0 Yes 300 mg = 1 Mem oria 300 MG Oral 4-09 cap, PO, l Capsule 22:52: Q12H, X 7 Love nn 00 day, # 14 cap, 0 Refill(s), Pharmacy: [facility] 527, 172.72, cm, 06/14/20 23:37:00 CDT, Height, 106.545, kg, 06/14/20 23:37:00 CDT, Weight cefdinir 2021-0 Yes 300 mg = 1 Mem oria 300 MG Oral 4-09 cap, PO, l Capsule 22:52: Q12H, X 7 Love nn day, # 14 cap, 0 Refill(s), Pharmacy: [facility] 527, 172.72, cm, 06/14/20 23:37:00 CDT, Height, 106.545, kg, 06/14/20 23:37:00 CDT, Weight cefdinir 2021-0 Yes 300 mg = 1 Mem oria 300 MG Oral 4-09 cap, PO, l Capsule 22:52: Q12H, X 7 Love nn day, # 14 cap, 0 Refill(s), Pharmacy: [facility] 527, 172.72, cm, 06/14/20 23:37:00 CDT, Height, 106.545, kg, 06/14/20 23:37:00 CDT, Weight cefdinir 2021-0 Yes 300 mg = 1 Mem oria 300 MG Oral 4-09 cap, PO, l Capsule 22:52: Q12H, X 7 Love nn 00 day, # 14 cap, 0 Refill(s), Pharmacy: [facility] 527, 172.72, cm, 06/14/20 23:37:00 CDT, Height, 106.545, kg, 06/14/20 23:37:00 CDT, Weight cefdinir 2021-0 Yes 300 mg = 1 Mem oria 300 MG Oral 4-09 cap, PO, l Capsule 22:52: Q12H, X 7 Love nn 00 day, # 14 cap, 0 Refill(s), Pharmacy: [facility] 527, 172.72, cm, 06/14/20 23:37:00 CDT, Height, 106.545, kg, 06/14/20 23:37:00 CDT, Weight Colchicine Yes 0.6 mg = 1 M emoria 0.6 MG Oral 4-09 tab, PO, l Tablet 22:36: BID, 0 [place] 00 Refill(s) pravastatin Yes 20 mg = 1 M emoria 20 mg oral 4-09 tab, PO, l tablet 22:36: Bedtime, # Love nn 00 90 tab, 0 Refill(s), Pharmacy: [facility] 527, 172.72, cm, 06/14/20 23:37:00 CDT, Height, 106.545, kg, 06/14/20 23:37:00 CDT, Weight pantoprazol Yes 40 mg = 1 M emoria e 40 mg 4-09 tab, PO, l oral 22:36: Before [place] enteric 00 Breakfast, coated # 30 tab, tablet 0 Refill(s), Pharmacy: [facility] 527, 172.72, cm, 06/14/20 23:37:00 CDT, Height, 106.545, kg, 06/14/20 23:37:00 CDT, Weight { Yes See Memoria (Methylpred 4-09 Instructio l nisolone 4 22:36: ns, PO, Herm yogesh MG Oral 00 Take by Tablet mouth as [Medrol]) } directed Pack on label., [Medrol X 6 day, # Dosepak] 21 tab, 0 Refill(s), Pharmacy: [facility] 527, 172.72, cm, 06/14/20 23:37:00 CDT, Height, 106.545, kg, 06/14/20 23:37:00 CDT, Weight Colchicine Yes 0.6 mg = 1 M emoria 0.6 MG Oral 4-09 tab, PO, l Tablet 22:36: BID, 0 [place] 00 Refill(s) pravastatin 0 Yes 20 mg = 1 M emoria 20 mg oral 4-09 tab, PO, l tablet 22:36: Bedtime, # Love nn 00 90 tab, 0 Refill(s), Pharmacy: [facility] 527, 172.72, cm, 06/14/20 23:37:00 CDT, Height, 106.545, kg, 06/14/20 23:37:00 CDT, Weight pantoprazol 0 Yes 40 mg = 1 M emoria e 40 mg 4-09 tab, PO, l oral 22:36: Before [place] enteric 00 Breakfast, coated # 30 tab, tablet 0 Refill(s), Pharmacy: [facility] 527, 172.72, cm, 06/14/20 23:37:00 CDT, Height, 106.545, kg, 06/14/20 23:37:00 CDT, Weight { Yes See Memoria (Methylpred 4-09 Instructio l nisolone 4 22:36: ns, PO, Herm yogesh MG Oral 00 Take by Tablet mouth as [Medrol]) } directed Pack on label., [Medrol X 6 day, # Dosepak] 21 tab, 0 Refill(s), Pharmacy: [facility] 527, 172.72, cm, 06/14/20 23:37:00 CDT, Height, 106.545, kg, 06/14/20 23:37:00 CDT, Weight Colchicine Yes 0.6 mg = 1 M emoria 0.6 MG Oral 4-09 tab, PO, l Tablet 22:36: BID, 0 [place] 00 Refill(s) pravastatin 0 Yes 20 mg = 1 M emoria 20 mg oral 4-09 tab, PO, l tablet 22:36: Bedtime, # Loev nn 00 90 tab, 0 Refill(s), Pharmacy: [facility] 527, 172.72, cm, 06/14/20 23:37:00 CDT, Height, 106.545, kg, 06/14/20 23:37:00 CDT, Weight pantoprazol 0 Yes 40 mg = 1 M emoria e 40 mg 4-09 tab, PO, l oral 22:36: Before [place] enteric 00 Breakfast, coated # 30 tab, tablet 0 Refill(s), Pharmacy: [facility] 527, 172.72, cm, 06/14/20 23:37:00 CDT, Height, 106.545, kg, 06/14/20 23:37:00 CDT, Weight { Yes See Memoria (Methylpred 4-09 Instructio l nisolone 4 22:36: ns, PO, Herm yogesh MG Oral 00 Take by Tablet mouth as [Medrol]) } directed Pack on label., [Medrol X 6 day, # Dosepak] 21 tab, 0 Refill(s), Pharmacy: [facility] 527, 172.72, cm, 06/14/20 23:37:00 [...] nn 00 90 tab, 0 Refill(s), Pharmacy: [facility] 527, 172.72, cm, 06/14/20 23:37:00 CDT, Height, 106.545, kg, 06/14/20 23:37:00 CDT, Weight pantoprazol Yes 40 mg = 1 M emoria e 40 mg 4-09 tab, PO, l oral 22:36: Before [place] enteric 00 Breakfast, coated # 30 tab, tablet 0 Refill(s), Pharmacy: [facility] 527, 172.72, cm, 06/14/20 23:37:00 CDT, Height, 106.545, kg, 06/14/20 23:37:00 CDT, Weight { Yes See Memoria (Methylpred 4-09 Instructio l nisolone 4 22:36: ns, PO, Herm yogesh MG Oral 00 Take by Tablet mouth as [Medrol]) } directed Pack on label., [Medrol X 6 day, # Dosepak] 21 tab, 0 Refill(s), Pharmacy: [facility] 527, 172.72, cm, 06/14/20 23:37:00 CDT, Height, 106.545, kg, 06/14/20 23:37:00 CDT, Weight Colchicine Yes 0.6 mg = 1 M emoria 0.6 MG Oral 4-09 tab, PO, l Tablet 22:36: BID, 0 [place] 00 Refill(s) pravastatin 0 Yes 20 mg = 1 M emoria 20 mg oral 4-09 tab, PO, l tablet 22:36: Bedtime, # Love nn 00 90 tab, 0 Refill(s), Pharmacy: [facility] 527, 172.72, cm, 06/14/20 23:37:00 CDT, Height, 106.545, kg, 06/14/20 23:37:00 CDT, Weight pantoprazol Yes 40 mg = 1 M emoria e 40 mg 4-09 tab, PO, l oral 22:36: Before [place] enteric 00 Breakfast, coated # 30 tab, tablet 0 Refill(s), Pharmacy: [facility] 527, 172.72, cm, 06/14/20 23:37:00 CDT, Height, 106.545, kg, 06/14/20 23:37:00 CDT, Weight { Yes See Memoria (Methylpred 4-09 Instructio l nisolone 4 22:36: ns, PO, Herm yogesh MG Oral 00 Take by Tablet mouth as [Medrol]) } directed Pack on label., [Medrol X 6 day, # Dosepak] 21 tab, 0 Refill(s), Pharmacy: [facility], 172.72, cm, 06/14/20 23:37:00 [...] nn 00 90 tab, 0 Refill(s), Pharmacy: [facility], 172.72, cm, 06/14/20 23:37:00 CDT, Height, 106.545, kg, 06/14/20 23:37:00 CDT, Weight pantoprazol 0 Yes 40 mg = 1 M emoria e 40 mg 4-09 tab, PO, l oral 22:36: Before [place] enteric 00 Breakfast, coated # 30 tab, tablet 0 Refill(s), Pharmacy: [facility] 527, 172.72, cm, 06/14/20 23:37:00 CDT, Height, 106.545, kg, 06/14/20 23:37:00 CDT, Weight { Yes See Memoria (Methylpred 4-09 Instructio l nisolone 4 22:36: ns, PO, Herm yogesh MG Oral 00 Take by Tablet mouth as [Medrol]) } directed Pack on label., [Medrol X 6 day, # Dosepak] 21 tab, 0 Refill(s), Pharmacy: [facility], 172.72, cm, 06/14/20 23:37:00 CDT, Height, 106.545, kg, 06/14/20 23:37:00 CDT, Weight Colchicine Yes 0.6 mg = 1 M emoria 0.6 MG Oral 4-09 tab, PO, l Tablet 22:36: BID, 0 [place] 00 Refill(s) pravastatin 0 Yes 20 mg = 1 M emoria 20 mg oral 4-09 tab, PO, l tablet 22:36: Bedtime, # Love nn 00 90 tab, 0 Refill(s), Pharmacy: [facility] 527, 172.72, cm, 06/14/20 23:37:00 CDT, Height, 106.545, kg, 06/14/20 23:37:00 CDT, Weight pantoprazol 0 Yes 40 mg = 1 M emoria e 40 mg 4-09 tab, PO, l oral 22:36: Before [place] enteric 00 Breakfast, coated # 30 tab, tablet 0 Refill(s), Pharmacy: [facility] 527, 172.72, cm, 06/14/20 23:37:00 CDT, Height, 106.545, kg, 06/14/20 23:37:00 CDT, Weight { Yes See Memoria (Methylpred 4-09 Instructio l nisolone 4 22:36: ns, PO, Herm yogesh MG Oral 00 Take by Tablet mouth as [Medrol]) } directed Pack on label., [Medrol X 6 day, # Dosepak] 21 tab, 0 Refill(s), Pharmacy: [facility], 172.72, cm, 06/14/20 23:37:00 CDT, Height, 106.545, kg, 06/14/20 23:37:00 CDT, Weight NovoLog No 30 unit, Memori a 06-15 Route: l 21:30: SUB-Q, [place] 00 TID-Before Meals, Dosing Weight 106.545, kg, Start date: 06/15/20 16:30:00 CDT, Duration: 30 day, Stop date: 07/15/20 11:30:00 CDT Humalog No Notes: Memoria - (Same as: l 21:30: Humalog) [place] 00 Roll in palms of hands gently; Do not shake vigorously . WASTE: F/P - Black; E - Municipal Trash Bin Stable for 28 days at room temperatur e. Expires in days from ____Date NovoLog No 30 unit, Memori a 06-15 Route: l 21:30: SUB-Q, [place] 00 TID-Before Meals, Dosing Weight 106.545, kg, Start date: 06/15/20 16:30:00 CDT, Duration: 30 day, Stop date: 07/15/20 11:30:00 CDT Humalog No Notes: Memoria 4-09 (Same as: l 21:30: Humalog) [place] 00 Roll in palms of hands gently; Do not shake vigorously . WASTE: F/P - Black; E - Municipal Trash Bin Stable for 28 days at room temperatur e. Expires in days from ____Date NovoLog No 30 unit, Memori a 4 Route: l 21:30: SUB-Q, [place] 00 TID-Before [...] Memori a 06-15 Route: l 21:30: SUB-Q, [place] 00 TID-Before Meals, Dosing Weight 106.545, kg, [...] Memori a 4- Route: l 21:30: SUB-Q, [place] 00 TID-Before Meals, Dosing Weight 106.545, kg, Start date: 06/15/20 16:30:00 CDT, Duration: 30 day, Stop date: 07/15/20 11:30:00 CDT Humalog No Notes: Memoria 4-09 (Same as: l 21:30: Humalog) [place] 00 Roll in palms of hands gently; Do not shake vigorously . WASTE: F/P - Black; E - Municipal Trash Bin Stable for 28 days at room temperatur e. Expires in days from ____Date NovoLog No 30 unit, Memori a 06-15 Route: l 21:30: SUB-Q, [place] 00 TID-Before Meals, Dosing Weight 106.545, kg, Start date: 06/15/20 16:30:00 CDT, Duration: 30 day, Stop date: 07/15/20 11:30:00 CDT Humalog No Notes: Memoria 06-15 (Same as: l 21:30: Humalog) [place] 00 Roll in palms of hands gently; Do not shake vigorously . WASTE: F/P - Black; E - Municipal Trash Bin Stable for 28 days at room temperatur e. Expires in days from ____Date NovoLog No 30 unit, Memori a 06-15 Route: l 21:30: SUB-Q, [place] 00 TID-Before Meals, Dosing Weight 106.545, kg, Start date: 06/15/20 16:30:00 CDT, Duration: 30 day, Stop date: 07/15/20 11:30:00 CDT Humalog No Notes: Memoria 06-15 (Same as: l 21:30: Humalog) [place] 00 Roll in palms of hands gently; Do not shake vigorously . WASTE: F/P - Black; E - Municipal Trash Bin Stable for 28 days at room temperatur e. Expires in days from ____Date Ceftriaxone No Notes: Brandon karina 06-15 (Same As: l 21:00: Rocephin). [place] 00 Use with 100 mL NS and infuse over 30 min MEDICATION WASTE Product Size: 1000 mg Product Wasted: ___ mg Ceftriaxone No Notes: Brandon karina 06-15 (Same As: l 21:00: Rocephin). [place] 00 Use with 100 mL NS and infuse over 30 min MEDICATION WASTE Product Size: 1000 mg Product Wasted: ___ mg Ceftriaxone 2020-0 No Notes: Brandon karina 4- (Same As: [...] 1000 mg Product Wasted: ___ mg Ceftriaxone 2020-0 No Notes: Brandon karina 4- (Same As: [...] from ____Date Insulin No Notes: Memoria Glargine 06-15 (Same as: l 15:00: Lantus) Do not hold insulin without contacting prescriber WASTE: F/P - Black; E - Municipal Trash Bin "single patient use only" Stable for 28 days at room temperatur e Expires in days from ____Date Insulin No Notes: Memoria Glargine 4- (Same as: l 15:00: Lantus) Do [place] 00 not hold insulin without contacting prescriber WASTE: F/P - Black; E - Municipal Trash Bin "single patient use only" Stable for 28 days at room temperatur e Expires in days from ____Date Insulin No Notes: Memoria Glargine 4- (Same as: l 15:00: Lantus) Do [place] 00 not hold insulin without contacting prescriber [...] e Expires in days from ____Date Protonix 2020-0 No Notes: Memoria 4-09 Tablet [...] Memoria 4-09 Tablet l 14:28: should not [place] 00 be chewed or crushed. (Same as: Protonix) ketOROLAC 2020-0 No 4 days Memor ia 30 mg/mL 4-09 l injectable 14:28: MEDICATION H ermann solution 00 WASTE Product Size: 30 mg Product Wasted: ___ mg Protonix 2020-0 No Notes: Memoria 4-09 Tablet l 14:28: should not [place] 00 be chewed or crushed. (Same as: Protonix) ketOROLAC 2020-0 No 4 days Memor ia 30 mg/mL 4-09 l injectable 14:28: MEDICATION H ermann solution 00 WASTE Product Size: 30 mg Product Wasted: ___ mg Protonix 2020-0 No Notes: Memoria 4-09 Tablet l 14:28: should not [place] 00 be chewed or crushed. (Same as: Protonix) ketOROLAC 1-0 No 4 days Memor ia 30 mg/mL [...] 06-15 Non-Formul l Tablet 14:00: noe Drug Shady [...] a -09 Take 1 l 14:00: hour [place] 00 before or 2 hours after meal; Enteral feeds may interefere with the absorption of this medication . (Same as:Synthro id, Levothroid ) Aspirin 81 No Notes: Memor ia MG Chewable -09 Take with l Tablet 14:00: food. [place] 00 Saline No Notes: Memoria Flush 0.9% 06-15 (Same as: l 14:00: BD [place] 00 Posiflush) Colchicine No Notes: Memor ia [...] a detemir 06-15 Route: l 14:00: SUB-Q, [place] 00 Drug form: SOLN, Q12H, Dosing Weight [...] 4-09 Take with l Tablet 14:00: food. [place] 00 Saline No Notes: Memoria Flush 0.9% - (Same as: l 14:00: BD [place] 00 Posiflush) Colchicine No Notes: Memor ia 0.6 MG Oral 4-09 Hazardous l Tablet 14:00: Drug Group Love nn 3:Reproduc tive risk Hazardous Drug -- Refer to safe handling procedure PPE Matrix Fenofibrate No Notes: Brandon karina 160 MG Oral 4-09 Non-Formul l Tablet 14:00: noe Drug [place] 00 (Same as: Tricor) Furosemide No Notes: Memor ia 20 MG Oral 4-09 (Same as: l Tablet 14:00: Lasix) July cause GI upset. Give with food or milk. insulin No 40 unit, Memori a detemir - Route: l 14:00: SUB-Q, [place] 00 Drug [...] 0.9% 06-15 (Same as: l 14:00: BD [place] 00 Posiflush) Colchicine No Notes: Memor ia [...] detemir 06-15 Route: l 14:00: SUB-Q, [place] Drug form: SOLN, Q12H, Dosing Weight 106.545, kg, Start date: 06/15/20 9:00:00 CDT, Duration: 30 day, Stop date: 07/14/20 21:00:00 CDT Thyroxine No Notes: Memori a 4-09 Take 1 l 14:00: hour [place] 00 before or 2 hours after meal; Enteral feeds may interefere with the absorption of this medication . (Same as:Synthro id, Levothroid ) Aspirin 81 No Notes: Memor ia MG Chewable 4-09 Take with l Tablet 14:00: food. [place] 00 Saline No Notes: Memoria Flush 0.9% 4-09 (Same as: l 14:00: BD [place] 00 Posiflush) Colchicine No Notes: Memor ia [...] 0.9% 4-09 (Same as: l 14:00: BD [place] 00 Posiflush) Colchicine No Notes: Memor ia 0.6 MG Oral 4-09 Hazardous l Tablet 14:00: Drug Group Love nn 3:Reproduc tive risk Hazardous Drug -- Refer to safe handling procedure PPE Matrix Fenofibrate No Notes: Brandon karina 160 MG Oral 4-09 Non-Formul l Tablet 14:00: noe Drug (Same as: Tricor) Furosemide No Notes: Memor ia 20 MG Oral -09 (Same as: l Tablet 14:00: Lasix) May Love cause GI upset. Give with food or milk. insulin No 40 unit, Memori a detemir 4- Route: l 14:00: SUB-Q, [place] Drug form: SOLN, Q12H, Dosing Weight 106.545, kg, Start date: 06/15/20 9:00:00 CDT, Duration: 30 day, Stop date: 07/14/20 21:00:00 CDT Thyroxine No Notes: Memori a 4-09 Take 1 l 14:00: hour [place] 00 before or 2 hours after meal; Enteral feeds may interefere with the absorption of this medication . (Same as:Synthro id, Levothroid ) Aspirin 81 No Notes: Memor ia MG Chewable 4-09 Take with l Tablet 14:00: food. [place] 00 Colchicine No Notes: Memor ia 0.6 MG [...] a detemir - Route: l 14:00: SUB-Q, [place] Drug form: SOLN, Q12H, Dosing Weight 106.545, [...] as: l 14:00: BD [place] 00 Posiflush) Saline No Notes: Memoria Flush 0.9% 06-15 (Same as: l 14:00: BD [place] 00 Posiflush) BD Normal No Notes: Memori [...] 06-15 (Same as: l Flush 12:44: BD [place] 00 Posiflush) Sodium No 25 mL, Memoria [...] Route: IV, l 0.9% IV 12:44: Start [place] 00 date: 06/15/20 7:44:00 CDT, Duration: 30 day, Stop date: 07/15/20 7:43:00 CDT, PRN Line Flush, 0 BD Normal No Notes: Memori a Saline 4-09 (Same as: l Flush 12:44: BD [place]ady Posiflush) Sodium No 25 mL, Memoria Chloride 4- Route: IV, l 0.9% IV 12:44: Start date: 06/15/20 7:44:00 CDT, Duration: 30 day, Stop date: 07/15/20 7:43:00 CDT, PRN Line Flush, 0 BD Normal No Notes: Memori a Saline 4- (Same as: l Flush 12:44: BD [place] Posiflush) Sodium No 25 mL, Memoria Chloride 4- Route: IV, l 0.9% IV 12:44: date: 06/15/20 7:44:00 CDT, Duration: 30 day, Stop date: 07/15/20 7:43:00 CDT, PRN Line Flush, 0 BD Normal No Notes: Memori a Saline 4-09 (Same as: l Flush 12:44: BD [place] Posiflush) Sodium No 25 mL, Memoria Chloride 4- Route: IV, l 0.9% IV 12:44: date: 06/15/20 7:44:00 CDT, Duration: 30 day, [...] 4-09 (Same as: l Flush 12:43: BD [place] 00 Posiflush) BD Normal No Notes: Memori a Saline 4-09 (Same as: l Flush 12:43: BD [place] 00 Posiflush) BD Normal No Notes: Memori a Saline - (Same as: l Flush 12:43: BD [place] 00 Posiflush) BD Normal No Notes: Memori a Saline - (Same as: l Flush 12:43: BD [place] 00 Posiflush) BD Normal No Notes: Memori a Saline - (Same as: l Flush 12:43: BD [place] 00 Posiflush) Dextrose No 12.5 gm, Memor [...] - Route: IM, l 12:36: Drug form: [place] 00 PDR/INJ, PRN, Dosing Weight 106.545, kg, [...] 06-15 Route: IM, l 12:36: Drug form: [place] 00 PDR/INJ, PRN, Dosing Weight 106.545, kg, [...] 06-15 25 mL, l (D50W) 12:36: Route: [place] 00 IVP, Drug Form: INJ, Dosing Weight [...] 06-15 25 mL, l (D50W) 12:36: Route: [place] 00 IVP, Drug Form: INJ, Dosing Weight [...] 06-15 Route: IM, l 12:36: Drug form: [place] 00 PDR/INJ, PRN, Dosing Weight 106.545, kg, [...] 06-15 25 mL, l (D50W) 12:36: Route: [place] 00 IVP, Drug Form: INJ, Dosing Weight [...] Memoria 06-15 Same as l 09:18: Dilaudid [place] 00 Dilaudid No Notes: Memoria 06-15 Same as l 09:18: Dilaudid [place] 00 Dilaudid No Notes: Memoria 06-15 Same as l 09:18: Dilaudid [place] 00 Dilaudid No Notes: Memoria 06-15 Same as l 09:18: Dilaudid [place] 00 Dilaudid No Notes: Memoria 06-15 Same as l 09:18: Dilaudid [place] 00 Nitroglycer No Notes: Brandon karina in 06-15 (Same l 05:09: as:Nitroqu [place] 00 ick, Nitrostat) "Do Not Crush" Sublingual tablet Saline No Notes: [facility] Flush 0.9% 06-15 (Same as: l 05:09: BD [place] 00 Posiflush) Nitroglycer No Notes: Brandon karina in 06-15 (Same l 05:09: as:Nitroqu [place] 00 ick, Nitrostat) "Do Not Crush" Sublingual tablet Saline No Notes: [facility] Flush 0.9% 06-15 (Same as: l 05:09: BD [place] 00 Posiflush) Nitroglycer No Notes: Brandon karina in 06-15 (Same l 05:09: as:Nitroqu [place] 00 ick, Nitrostat) "Do Not Crush" Sublingual tablet Saline No Notes: [facility] Flush 0.9% 06-15 (Same as: l 05:09: BD [place] 00 Posiflush) Nitroglycer No Notes: Brandon karina in 06-15 (Same l 05:09: as:Nitroqu [place] 00 ick, Nitrostat) "Do Not Crush" Sublingual [...] karina in 06-15 (Same l 05:09: as:Nitroqu [place] 00 ick, Nitrostat) "Do Not Crush" Sublingual tablet Saline No Notes: [facility] Flush 0.9% 06-15 (Same as: l 05:09: BD [place] 00 Posiflush) Nitroglycer No Notes: Brandon karina in 06-15 (Same l 05:09: as:Nitroqu [place] 00 ick, Nitrostat) "Do Not Crush" Sublingual tablet Saline No Notes: [facility] Flush 0.9% 06-15 (Same as: l 05:09: BD [place] 00 Posiflush) lisinopril No 40 mg = 1 Me moria 40 mg oral 06-15 tab, PO, l tablet 05:00: Daily, 0 [place] 00 Refill(s) lisinopril 2020-0 No 40 mg = 1 Me moria 40 mg oral 06-15 tab, PO, l tablet 05:00: Daily, 0 [place] 00 Refill(s) lisinopril 2020-0 No 40 mg = 1 Me moria 40 mg oral 4-09 tab, PO, l tablet 05:00: Daily, 0 [place] 00 Refill(s) lisinopril 2020-0 No 40 mg = 1 Me moria 40 mg oral 4-09 tab, PO, l tablet 05:00: Daily, 0 [place] 00 Refill(s) lisinopril 2020-0 No 40 mg = 1 Me moria 40 mg oral 4-09 tab, PO, l tablet 05:00: Daily, 0 [place] 00 Refill(s) lisinopril 2020-0 No 40 mg = 1 Me moria 40 mg oral 4-09 tab, PO, l tablet 05:00: Daily, 0 [place] 00 Refill(s) lisinopril 2020-0 No 40 mg = 1 Me moria 40 mg oral 4-09 tab, PO, l tablet 05:00: Daily, 0 [place] 00 Refill(s) NovoLog 2020-0 Yes See Memoria [...] 06-15 Instructio l 04:58: ns, 30 U [place] 00 SUB-Q TID-Before Meals, 0 Refill(s) NovoLog 2020-0 Yes See Memoria 4 Instructio l 04:58: ns, 30 U [place] 00 SUB-Q TID-Before Meals, 0 Refill(s) NovoLog 2020-0 Yes See [facility] 4 Instructio l 04:58: ns, 30 U [place] 00 SUB-Q TID-Before Meals, 0 Refill(s) insulin 2020-0 Yes See [facility]oria detemir 100 4-09 Instructio l UNT/ML 04:57: ns, 40U [place] Injectable 00 BID SUB-Q, Solution 0 [Levemir] Refill(s) insulin Yes See [facility]oria detemir 100 4-09 Instructio l UNT/ML 04:57: ns, 40U [place] Injectable 00 BID SUB-Q, Solution 0 [Levemir] [...] 4-09 Instructio l UNT/ML 04:57: ns, 40U [place] Injectable 00 BID SUB-Q, Solution 0 [Levemir] Refill(s) insulin Yes See [facility] detemir 100 4-09 Instructio l UNT/ML 04:57: ns, 40U [place] Injectable 00 BID SUB-Q, Solution 0 [Levemir] Refill(s) insulin Yes See [facility]oria detemir 100 4-09 Instructio l UNT/ML 04:57: ns, 40U [place] Injectable 00 BID SUB-Q, Solution 0 [Levemir] Refill(s) levothyroxi Yes 75 Memori a ne 75 mcg 4-09 microgram l (0.075 mg) 04:56: = 1 tab, Her minor oral tablet 00 PO, Daily, 0 Refill(s) Aspirin Yes 81 mg, PO, Brandon karina 4-09 Daily, 0 l 04:56: Refill(s) [place] 00 levothyroxi Yes 75 Memori a ne [...] (0.075 mg) 04:56: = 1 tab, Her mnior oral tablet 00 PO, Daily, 0 Refill(s) Aspirin 2020-0 Yes 81 mg, PO, Brandon karina 4-09 Daily, 0 l 04:56: Refill(s) Fenofibrate Yes 160 mg = 1 [facility] 160 MG Oral 4-09 tab, PO, l Tablet 04:55: Daily, 0 Refill(s) Furosemide 2020- Yes 20 mg = 1 Me moria [...] l Tablet 04:55: Daily, 0 Refill(s) Furosemide 0 Yes 20 mg = 1 Me moria 20 MG Oral 4-09 tab, PO, l Tablet 04:55: Daily, 0 Refill(s) Fenofibrate Yes 160 mg = 1 [facility] 160 MG Oral 4-09 tab, PO, l Tablet 04:55: Daily, 0 Refill(s) Furosemide Yes 20 mg = 1 Me moria 20 MG Oral 4-09 tab, PO, l Tablet 04:55: Daily, 0 Refill(s) Colchicine 2021-0 No 0.6 mg = 1 M emoria 0.6 MG Oral 4-09 tab, PO, l Tablet 04:54: BID, 0 [place] 00 Refill(s) Colchicine No 0.6 mg = 1 M emoria 0.6 MG Oral 4-09 tab, PO, l Tablet 04:54: BID, 0 [place] 00 Refill(s) Colchicine 2020-0 No 0.6 mg = 1 M emoria 0.6 MG Oral 4-09 tab, PO, l Tablet 04:54: BID, 0 [place] 00 Refill(s) Colchicine 0 No 0.6 mg = 1 M emoria 0.6 MG Oral 4-09 tab, PO, l Tablet 04:54: BID, 0 [place] 00 Refill(s) Colchicine 2020-0 No 0.6 mg = 1 M emoria 0.6 MG Oral 4-09 tab, PO, l Tablet 04:54: BID, 0 [place] 00 Refill(s) Colchicine No 0.6 mg = 1 M emoria 0.6 MG Oral 4-09 tab, PO, l Tablet 04:54: BID, 0 [place] 00 Refill(s) Colchicine 0 No 0.6 mg = 1 M emoria 0.6 MG Oral 4-09 tab, PO, l Tablet 04:54: BID, 0 [place] 00 Refill(s) atenolol Yes 50mg QD Take [address] [facility] (TENORMIN) 4-28 by [facility] 15:23: daily. [facility] tablet 08 [facility] oxybutynin Yes 5mg Q.[id number] Take [address] [facility] (DITROPAN) 4-28 [id number] by mouth 3 [facility] 5 [facility] tablet [...] tablet 08 [facility] oxybutynin 2017-0 Yes 5mg Q.[id number] Take [address] [facility] (DITROPAN) 4-28 [id number] by mouth 3 [facility] 5 MG tablet [...] tablet 08 Center oxybutynin 2017-0 Yes 5mg Q.[id number] Take [address] [facility] (DITROPAN) 4-28 [id number] by mouth 3 [facility] 5 MG tablet 15:23: 3D (three) Med ical 08 times Center daily. pantoprazol 2017- Yes 40mg QD Take [facility] mg [facility] [...] (two) injection times daily pen . insulin 20170 Yes 20U [facility]ject [facility] [...] tablet 08 [facility] oxybutynin 2017-0 Yes 5mg Q.[id number] Take [address] [facility] (DITROPAN) 4-28 [id number] by mouth 3 [facility] 5 MG tablet [...] tablet 08 Center oxybutynin 2017-0 Yes 5mg Q.[id number] Take [address] [facility] (DITROPAN) 4-28 [id number] by mouth 3 [facility] 5 MG tablet [...] tablet 08 Center oxybutynin 2017-0 Yes 5mg Q.[id number] Take [address] [facility] (DITROPAN) 4-28 [id number] by mouth 3 [facility] 5 MG tablet [...] Medical tablet 08 Center oxybutynin Yes 5mg Q.[id number] Take [address] [facility] (DITROPAN) 4-28 [id number] by mouth 3 [facility] 5 MG tablet [...] Memoria porcine 5-02 unit, l 16:46: SUB-Q, [place] 00 Q12H, 0 Refill(s) glimepiride Yes 4 [...] 1 Mem oria 10 MG 5-02 supp, DE, l Rectal 16:46: Daily, [place] Suppository 00 Constipati [Bisac-Evac on, # 10 [...] Insulin, 5-02 scale l Aspart, 16:46: before [place] Human 100 00 meals, UNT/ML SUB-Q, Prefilled [...] 1 Mem oria 10 MG 5-02 supp, DE, l Rectal 16:46: Daily, [place] Suppository 00 Constipati [Bisac-Evac on, # 10 ] supp, 0 Refill(s) Atenolol 50 Yes 50 mg = 1 M emoria MG Oral 5-02 tab, PO, l Tablet 16:46: Daily, # [place] 00 30 tab, 0 Refill(s) allopurinol Yes 100 mg = 1 [facility] 100 mg oral 5-02 tab, PO, l tablet 16:46: TID, # 60 Jose n 00 tab, 0 Refill(s) 3 ML Yes sliding [facility] Insulin, -02 scale l Aspart, 16:46: before [place] Human [...] 1 Mem oria 10 MG 5-02 supp, DE, l Rectal 16:46: Daily, [place] Suppository 00 Constipati [Bisac-Evac on, # 10 [...] Insulin, 5-02 scale l Aspart, 16:46: before [place] Human 100 00 meals, UNT/ML SUB-Q, Prefilled TID-Before Syringe Meals, # 3 [NovoLog] mL, 0 Refill(s) Senna-gen Yes Special [facility] ia 8.6 mg oral 5-02 Instructio l tablet 16:46: ns: at [place] 00 noon Ranitidine Yes 150 mg = [...] [facility]oria porcine 5-02 unit, l 16:46: SUB-Q, [place] 00 Q12H, 0 Refill(s) glimepiride Yes 4 mg = 1 Me moria 4 mg oral 5-02 tab, PO, l tablet 16:46: Daily, # [place] 00 30 tab, 0 Refill(s) Docusate Yes 100 mg = 1 Mem oria Sodium 100 5-02 cap, PO, l MG Oral 16:46: BID, [place] Capsule 00 Constipati [Colace] on, # 20 cap, 0 Refill(s) Bisacodyl Yes 10 mg = 1 Mem oria 10 MG 5-02 supp, DE, l Rectal 16:46: Daily, [place] Suppository 00 [...] Insulin, 5-02 scale l Aspart, 16:46: before [place] Human 100 00 meals, UNT/ML SUB-Q, Prefilled TID-Before Syringe Meals, # 3 [NovoLog] mL, 0 Refill(s) Senna-gen Yes Special [facility] 8.6 mg oral 5-02 Instructio l tablet 16:46: ns: at [place] 00 noon Ranitidine Yes 150 mg = 1 M emoria 150 MG Oral 5-02 cap, PO, l Capsule 16:46: BID, # 60 Love nn 00 cap, 0 Refill(s) pravastatin Yes 20 mg = 1 M emoria 20 mg oral 5-02 tab, PO, l tablet 16:46: Bedtime, # Lvoe nn 00 30 tab, 0 Refill(s) magnesium [...] tab, PO, l tablet 16:46: Daily, # [place] 00 30 tab, 0 Refill(s) Docusate Yes 100 mg = 1 Mem oria Sodium 100 5-02 cap, PO, l MG Oral 16:46: BID, [place] Capsule 00 Constipati [Colace] on, # 20 cap, 0 Refill(s) Bisacodyl Yes 10 mg = 1 Mem oria 10 MG 5-02 supp, DE, l Rectal 16:46: Daily, [place] Suppository 00 Constipati [Bisac-Evac on, # 10 ] supp, 0 Refill(s) Atenolol 50 Yes 50 mg = 1 M emoria MG Oral 5-02 tab, PO, l Tablet 16:46: Daily, # [place] 00 30 tab, 0 Refill(s) allopurinol Yes [...] and 25 l units/mL 16:46: units at [facility] nn subcutaneou 00 night, s solution SUB-Q, BID, # 10 ml, 0 Refill(s) heparin, Yes 7,500 Memoria porcine 5-02 unit, l 16:46: SUB-Q, [place] 00 Q12H, 0 Refill(s) glimepiride Yes 4 mg = 1 Me moria 4 mg oral 5-02 tab, PO, l tablet 16:46: Daily, # [place] 00 30 tab, 0 Refill(s) Docusate Yes 100 mg = 1 Mem oria Sodium 100 5-02 cap, PO, l MG Oral 16:46: BID, [place] Capsule 00 Constipati [Colace] on, # 20 cap, 0 Refill(s) Bisacodyl Yes 10 mg = 1 Mem oria 10 MG 5-02 supp, DE, l Rectal 16:46: Daily, [place] Suppository 00 Constipati [Bisac-Evac on, # 10 ] supp, 0 Refill(s) Atenolol 50 Yes 50 mg = 1 M emoria MG Oral 5-02 tab, PO, l Tablet 16:46: Daily, # [place] 00 30 tab, 0 Refill(s) allopurinol Yes [...] 5-02 Instructio l tablet 16:46: ns: at [place] 00 noon Ranitidine Yes 150 mg = [...] tab, PO, l tablet 16:46: Daily, # [place] 00 30 tab, 0 Refill(s) Docusate Yes 100 mg = 1 Mem oria Sodium 100 5-02 cap, PO, l MG Oral 16:46: BID, [place] Capsule 00 Constipati [Colace] on, # 20 cap, 0 Refill(s) Bisacodyl Yes 10 mg = 1 Mem oria 10 MG 5-02 supp, DE, l Rectal 16:46: Daily, [place] Suppository 00 Constipati [Bisac-Evac on, # 10 ] supp, 0 Refill(s) Atenolol 50 Yes 50 mg = 1 M emoria MG Oral 5-02 tab, PO, l Tablet 16:46: Daily, # [place] 00 30 tab, 0 Refill(s) allopurinol Yes 100 mg = 1 Memoria 100 mg oral 5-02 tab, PO, l tablet 16:46: TID, # 60 Jose n 00 tab, 0 Refill(s) 3 ML Yes sliding Memoria Insulin, 5-02 scale l Aspart, 16:46: before [place] Human 100 00 meals, UNT/ML SUB-Q, Prefilled [...] a 300 4-14 (Same l 15:20: as:Omnipaq [place] ue 300). Omnipaque Yes Notes: Memori a 300 4-14 (Same l 15:20: as:Omnipaq [place] ue 300). Omnipaque Yes Notes: Memori a 300 4-14 (Same l 15:20: as:Omnipaq [place] 00 ue 300). Omnipaque Yes Notes: Memori a 300 4-14 (Same l 15:20: as:Omnipaq [place] 00 ue 300). Omnipaque Yes Notes: Memori a 300 4-14 (Same l 15:20: as:Omnipaq [place] 00 ue 300). Omnipaque Yes Notes: Memori a 300 4-14 (Same l 15:20: as:Omnipaq [place] 00 ue 300). Omnipaque Yes Notes: Memori a 300 4-14 (Same l 15:20: as:Omnipaq [place] ue 300). Omeprazole Omeprazole No QD Omeprazole [...] pneumococcal 2013-04-21 Completed [facility] 23-valent vaccine 03:02:00 [place] influenza virus 2013-04-21 Completed [facility] vaccine, inactivated 03:02:00 [facility] yogesh pneumococcal 2013-04-21 Completed [facility] 23-valent vaccine 03:02:00 [place] influenza virus 2013-04-21 Completed [facility] vaccine, inactivated [...] pneumococcal 2013-04-21 Completed [facility] 23-valent vaccine 03:02:00 [place] influenza virus 2013-04-21 Completed [facility] vaccine, inactivated 03:02:00 [facility] yogesh pneumococcal 2013-04-21 Completed [facility] 23-valent vaccine 03:02:00 [place] influenza virus 2013-04-21 Completed [facility] vaccine, inactivated 03:02:00 [facility] yogesh Vital Signs Vital Name Observation Time Observation Value Comments Source height 2022-02-13 17:15:00 68 [in_i] [facility] weight 2022-02-13 17:15:00 245 [lb_av] [facility] temperature 2022-02-13 17:15:00 98.6 [degF] [facility] bmi 2022-02-13 17:15:00 37.25 kg/m2 [facility] oximetry 2022-02-13 17:15:00 96 % [facility] respiratory rate 2022-02-13 17:15:00 16 /min [facility] blood pressure 2022-02-13 17:15:00 171 mm[Hg] [facility] - systolic [facility] blood pressure 2022-02-13 17:15:00 97 mm[Hg] [facility] - diastolic [facility] height 2022-02-06 14:30:00 68 [in_i] [facility] weight 2022-02-06 14:30:00 244 [lb_av] [facility] temperature 2022-02-06 14:30:00 98.2 [degF] [facility] bmi 2022-02-06 14:30:00 37.1 kg/m2 [facility] oximetry 2022-02-06 14:30:00 97 % [facility] respiratory rate 2022-02-06 14:30:00 16 /min [facility] blood pressure 2022-02-06 14:30:00 164 mm[Hg] [facility] - systolic [facility] blood pressure 2022-02-06 14:30:00 90 mm[Hg] [facility] - diastolic [facility] height 2021-02-11 11:20:00 68 [in_i] [facility] weight 2021-02-11 11:20:00 235 [lb_av] [facility] temperature 2021-02-11 11:20:00 98.7 [degF] [facility] bmi 2021-02-11 11:20:00 35.73 kg/m2 [facility] oximetry 2021-02-11 11:20:00 95 % [facility] blood pressure 2021-02-11 11:20:00 170 mm[Hg] [facility] blood pressure 2021-02-11 11:20:00 99 mm[Hg] [facility] diastolic [facility] height 2021-01-11 08:40:00 68 [in_i] [facility] weight 2021-01-11 08:40:00 235 [lb_av] [facility] temperature 2021-01-11 08:40:00 97.8 [degF] [facility] bmi 2021-01-11 08:40:00 35.73 kg/m2 [facility] oximetry 2021-01-11 08:40:00 95 % [facility] blood pressure 2021-01-11 08:40:00 162 mm[Hg] [facility] systolic [facility] blood pressure 2021-01-11 08:40:00 90 mm[Hg] [facility] - diastolic [facility] Systolic blood 2021-09-19 22:03:00 127 mm[Hg] [facility] Diastolic blood 2021-09-19 22:03:00 79 mm[Hg] [facility] pressure Heart rate 2021-09-19 22:03:00 80 /min [facility] Body temperature 2021-09-19 22:03:[address] [facility] Respiratory rate 2021-09-19 22:03:00 18 /min [facility] Oxygen saturation in 2021-09-19 22:03:00 97 /min [facility] Arterial blood by Pulse oximetry Body height 2021-09-19 19:13:00 172.7 cm [facility] Body weight 2021-09-19 19:13:00 108.863 kg [facility] BMI 2021-09-19 19:13:00 36.49 kg/m2 [facility] Temperature Oral (F) 2020-06-15 20:48:00 98.0 F [facility] [place] Heart Rate 2020-06-15 20:48:00 [facility] [place] Respitory Rate 2020-06-15 20:48:00 Memori al [place] Systolic (mm Hg) 2020-06-15 20:48:00 Brandon rial [place] Diastolic (mm Hg) 2020-06-15 20:48:00 Mem orial [place] Temperature Oral (F) 2020-06-15 17:22:00 97.6 F [facility] [place] Heart Rate 2020-06-15 17:22:00 [facility] [place] Respitory Rate 2020-06-15 17:22:00 Memori al [place] Systolic (mm Hg) 2020-06-15 17:22:00 Brandon rial [place] Diastolic (mm Hg) 2020-06-15 17:22:00 Mem orial [place] Temperature Oral (F) 2020-06-15 12:55:00 97.6 F [facility] [place] Heart Rate 2020-06-15 12:55:00 [facility] [place] Respitory Rate 2020-06-15 12:55:00 Memori al [place] Systolic (mm Hg) 2020-06-15 12:55:00 Brandon rial [place] Diastolic (mm Hg) 2020-06-15 12:55:00 Mem orial [place] BMI Calculated 2020-06-15 05:09:00 [facility] [place] Weight 2020-06-15 04:37:00 [facility] [place] BMI Calculated 2020-06-15 04:37:00 Memori al [place] Height 2020-06-15 04:37:00 172.72 cm [facility] [place] Heart Rate 2014-02-11 18:33:00 [facility] [place] Systolic (mm Hg) 2014-02-11 18:33:00 Brandon rial [place] Diastolic (mm Hg) 2014-02-11 18:33:00 Mem orial [place] Systolic (mm Hg) 2014-01-21 16:31:00 Brandon rial [place] Heart Rate 2014-01-21 16:31:00 [facility] [place] Diastolic (mm Hg) 2014-01-21 16:31:00 Mem orial [place] Heart Rate 2013-12-24 17:08:00 [facility] [place] Diastolic (mm Hg) 2013-12-24 17:08:00 Mem orial [place] Systolic (mm Hg) 2013-12-24 17:08:00 Brandon rial [place] Systolic (mm Hg) 2013-12-17 17:32:00 Brandon rial [place] Heart Rate 2013-12-17 17:32:00 [facility] [place] Diastolic (mm Hg) 2013-12-17 17:32:00 Mem orial [place] Heart Rate 2013-12-14 20:29:00 [facility] [place] Diastolic (mm Hg) 2013-12-14 20:29:00 Mem orial [place] Respitory Rate 2013-12-14 20:29:00 Memori al [place] Systolic (mm Hg) 2013-12-14 20:29:00 Brandon rial [place] BMI Calculated 2013-12-14 20:29:00 [facility] al [place] Weight 2013-12-14 20:29:00 [facility] [place] Height 2013-12-14 20:29:00 172.72 cm [facility] [place] Diastolic (mm Hg) 2013-12-10 14:08:00 Mem orial [place] Systolic (mm Hg) 2013-12-10 14:08:00 Brandon rial [place] Systolic (mm Hg) 2013-12-03 14:19:00 Brandon rial [place] Diastolic (mm Hg) 2013-12-03 14:19:00 Mem orial [place] Diastolic (mm Hg) 2013-11-15 13:38:00 Mem orial [place] Respitory Rate 2013-11-15 13:38:00 Memori al [place] Heart Rate 2013-11-15 13:38:00 [facility] [place] Systolic (mm Hg) 2013-11-15 13:38:00 Brandon rial [place] Temperature Oral (F) 2013-11-15 13:38:00 98.2 F [facility] [place] BMI Calculated 2013-11-15 13:38:00 Memori al [place] Height 2013-11-15 13:38:00 172.72 cm [facility] [place] Weight 2013-11-15 13:38:00 [facility] [place] Heart Rate 2013-11-12 15:07:00 [facility] [place] Diastolic (mm Hg) 2013-11-12 15:07:00 Mem orial [place] Systolic (mm Hg) 2013-11-12 15:07:00 Brandon rial [place] BMI Calculated 2013-07-08 16:51:00 Memori al [place] Height 2013-07-08 16:51:00 172.72 cm [facility] [place] Weight 2013-07-08 16:51:00 [facility] [place] Diastolic (mm Hg) 2013-07-08 16:51:00 Mem orial [place] Systolic (mm Hg) 2013-07-08 16:51:00 Brandon rial [place] Heart Rate 2013-07-08 16:51:00 [facility] [place] Respitory Rate 2013-07-08 16:51:00 Memori al [place] Diastolic (mm Hg) 2013-06-30 17:34:00 Mem orial [place] Systolic (mm Hg) 2013-06-30 17:34:00 Brandon rial [place] Heart Rate 2013-06-28 23:23:00 [facility] [place] Systolic (mm Hg) 2013-06-28 23:23:00 Brnadon rial [place] Diastolic (mm Hg) 2013-06-28 23:23:00 Mem orial [place] Heart Rate 2013-06-20 15:01:00 [facility] [place] Respitory Rate 2013-06-20 15:01:00 Memori al [place] Systolic (mm Hg) 2013-06-20 15:01:00 Brandon rial [place] Diastolic (mm Hg) 2013-06-20 15:01:00 Mem orial [place] Temperature Oral (F) 2013-06-20 15:01:00 98.7 F [facility] [place] Height 2013-06-20 15:00:00 172.72 cm [facility] [place] BMI Calculated 2013-06-20 15:00:00 Memori al [place] Weight 2013-06-20 15:00:00 [facility] [place] Diastolic (mm Hg) 2013-06-07 16:00:00 Mem orial [place] Systolic (mm Hg) 2013-06-07 16:00:00 Brandon rial [place] Heart Rate 2013-06-07 16:00:00 [facility] [place] Heart Rate 2013-06-07 15:07:00 [facility] Procedures Procedure Date / Time Performing Clinician Source Performed XR ELBOW 3+ VW RIGHT 2021-09-19 21:32:47 [facility] XR FINGER 2+ VW RIGHT 2021-09-19 21:32:23 [facility] CBC WITH PLATELET AND 2021-09-19 21:13:00 [facility] DIFFERENTIAL LACTIC ACID LEVEL, SEPSIS 2021-09-19 21:13:00 [facility] - NOW AND REPEAT 2X EVERY 3 HOURS COMPREHENSIVE METABOLIC 2021-09-19 21:13:00 [facility] PANEL ESTIMATED GFR 2021-09-19 21:13:00 [facility] Video urodynamic study 2013-06-20 05:00:00 Roberto levin [place] Laminectomy [facility] Plan of Care Planned Activity Planned Date Details Comments Source Future Scheduled 2022-11-09 Screening for [facility] Test 03:17:49 malignant neoplasm of colon (procedure) [code = 187416030] Future Scheduled 2022-11-09 Screening for [facility] Test 03:17:49 malignant neoplasm of colon (procedure) [code = 946106747] Future Scheduled 2022-11-09 Screening for [facility] Test 03:17:49 malignant neoplasm of colon (procedure) [code = 333242498] Future Scheduled 2022-11-09 COVID-19 VACCINE (#1) [facility] Test 03:17:49 [code = COVID-19 VACCINE (#1)] Future Scheduled 2022-11-09 Pneumococcal Vaccine: [facility] Test 03:17:49 Pediatrics (0 to 5 Years) and At-Risk Patients (6 to 64 Years) (1 - PCV) [code = Pneumococcal Vaccine: Pediatrics (0 to 5 Years) and At-Risk Patients (6 to 64 Years) (1 - PCV)] Future Scheduled 2022-11-09 Hepatitis C screening [facility] Test 03:17:49 (procedure) [code = 235132374] Future Scheduled 2022-11-09 Screening for [facility] Test 03:17:49 malignant neoplasm of colon (procedure) [code = 576328010] Future Scheduled 2022-11-09 Screening for [facility] Test 03:17:49 malignant neoplasm of colon (procedure) [code = 306486250] Future Scheduled 2022-11-09 [facility]INES ([facility] 03:17:49 of 2) [code = SHINGLES VACCINES (1 of 2)] Future Scheduled 2022-11-09 [facility]ACC[facility] (#[facility] 03:17:49 [code = INFLUENZA VACCINE (#1)] Future Scheduled 2022-10-13 Screening for [facility] Test 12:59:24 malignant neoplasm of colon (procedure) [code = 880865361] Future Scheduled 2022-10-13 Screening for [facility] Test 12:59:24 malignant neoplasm of colon (procedure) [code = 495894712] Future Scheduled 2022-10-13 Screening for [facility] Test 12:59:24 malignant neoplasm of colon (procedure) [code = 343415393] Future Scheduled 2022-10-13 COVID-19 VACCINE (#1) [facility] Test 12:59:24 [code = COVID-19 VACCINE (#1)] Future Scheduled 2022-10-13 Pneumococcal Vaccine: [facility] Test 12:59:24 Pediatrics (0 to 5 Years) and At-Risk Patients (6 to 64 Years) (1 - PCV) [code = Pneumococcal Vaccine: Pediatrics (0 to 5 Years) and At-Risk Patients (6 to 64 Years) (1 - PCV)] Future Scheduled 2022-10-13 Hepatitis C screening [facility] Test 12:59:24 (procedure) [code = 491203681] Future Scheduled 2022-10-13 Screening for [facility] Test 12:59:24 malignant neoplasm of colon (procedure) [code = 902199942] Future Scheduled 2022-10-13 Screening for [facility] Test 12:59:24 malignant neoplasm of colon (procedure) [code = 331477673] Future Scheduled 2022-10-13 SHINGLES VACCINES (1 [facility] 12:59:24 of 2) [code = SHINGLES VACCINES (1 of 2)] Future Scheduled 2022-10-13 [facility]ACCINE [facility] 12:59:24 [code = INFLUENZA VACCINE] Future Scheduled 2022-08-25 Screening for [facility] Test 19:18:20 malignant neoplasm of colon (procedure) [code = 989459338] Future Scheduled 2022-08-25 Screening for [facility] Test 19:18:20 malignant neoplasm of colon (procedure) [code = 821946075] Future Scheduled 2022-08-25 COVID-19 VACCINE (#1) [facility] Test 19:18:20 [code = COVID-19 VACCINE (#1)] Future Scheduled 2022-08-25 Pneumococcal Vaccine: [facility] Test 19:18:20 Pediatrics (0 to 5 Years) and At-Risk Patients (6 to 64 Years) (1 - PCV) [code = Pneumococcal Vaccine: Pediatrics (0 to 5 Years) and At-Risk Patients (6 to 64 Years) (1 - PCV)] Future Scheduled 2022-08-25 Hepatitis C screening [facility] Test 19:18:20 (procedure) [code = 921355498] Future Scheduled 2022-08-25 Screening for [facility] Test 19:18:20 malignant neoplasm of colon (procedure) [code = 783071316] Future Scheduled 2022-08-25 Screening for [facility] Test 19:18:20 malignant neoplasm of colon (procedure) [code = 987390749] Future Scheduled 2022-08-25 SHINGLES VACCINES (1 [facility] 19:18:20 of 2) [code = SHINGLES VACCINES (1 of 2)] Future Scheduled 2022-08-25 [facility]ACCINE [facility]:18:20 [code = INFLUENZA VACCINE] Future Scheduled 2022-08-25 Screening for [facility] Test 19:18:20 malignant neoplasm of colon (procedure) [code = [id number]] Future Scheduled 2022-06-09 COVID-19 VACCINE (#1) [facility] Test 09:45:16 [code = COVID-19 VACCINE (#1)] Future Scheduled 2022-06-09 Pneumococcal Vaccine: [facility] Test 09:45:16 Pediatrics (0 to 5 Years) and At-Risk Patients (6 to 64 Years) (1 - PCV) [code = Pneumococcal Vaccine: Pediatrics (0 to 5 Years) and At-Risk Patients (6 to 64 Years) (1 - PCV)] Future Scheduled 2022-06-09 Hepatitis C screening [facility] Test 09:45:16 (procedure) [code = 426728937] Future Scheduled 2022-06-09 SHINGLES VACCINES (1 Met [facility] Test 09:45:16 of 2) [code = SHINGLES VACCINES (1 of 2)] Future Scheduled 2022-06-09 COLONOSCOPY SCREENING [facility] Test 09:45:16 [code = COLONOSCOPY SCREENING] Future Scheduled 2022-06-09 INFLUENZA VACCINE Method [facility] Test 09:45:16 [code = INFLUENZA VACCINE] Future Scheduled 2022-06-09 COVID-19 VACCINE (#1) [facility] Test 09:45:16 [code = COVID-19 VACCINE (#1)] Future Scheduled 2022-06-09 Pneumococcal Vaccine: [facility] Test 09:45:16 Pediatrics (0 to 5 Years) and At-Risk Patients (6 to 64 Years) (1 - PCV) [code = Pneumococcal Vaccine: Pediatrics (0 to 5 Years) and At-Risk Patients (6 to 64 Years) (1 - PCV)] Future Scheduled 2022-06-09 Hepatitis C screening [facility] Test 09:45:16 (procedure) [code = [id number]] Future Scheduled 2022-06-09 SHINGLES VACCINES (1 Met [facility] Test 09:45:16 of 2) [code = SHINGLES VACCINES (1 of 2)] Future Scheduled 2022-06-09 [facility] Test 09:45:16 malignant neoplasm of colon (procedure) [code = 931781501] Future Scheduled 2022-06-09 INFLUENZA VACCINE Method [facility] Test 09:45:16 [code = INFLUENZA VACCINE] Future Scheduled 2021-11-09 HEPATITIS B VACCINES Met [facility] Test 11:01:57 (1 of 3 - 3-dose series) [code = HEPATITIS B VACCINES (1 of 3 - 3-dose series)] Future Scheduled 2021-11-09 COVID-19 VACCINE (#1) [facility] Test 11:01:57 [code = COVID-19 VACCINE (#1)] Future Scheduled 2021-11-09 Pneumococcal Vaccine: [facility] Test 11:01:57 Pediatrics (0 to 5 Years) and At-Risk Patients (6 to 64 Years) (1 - PCV) [code = Pneumococcal Vaccine: Pediatrics (0 to 5 Years) and At-Risk Patients (6 to 64 Years) (1 - PCV)] Future Scheduled 2021-11-09 Hepatitis C screening [facility] Test 11:01:57 (procedure) [code = [id number]] Future Scheduled 2021-11-09 SHINGLES VACCINES (1 Met [facility] Test 11:01:57 of 2) [code = SHINGLES VACCINES (1 of 2)] Future Scheduled 2021-11-09 COLONOSCOPY SCREENING [facility] Test 11:01:57 [code = COLONOSCOPY SCREENING] Future Scheduled 2021-11-09 INFLUENZA VACCINE Method [facility] Test 11:01:57 [code = INFLUENZA VACCINE] Encounters Start End Encounter Admission Attending Care Care Encounter Source Date/Time Date/Time Type Type Clinicians Facility Department ID 2022-08-27 Outpatient Powers, STLMLC [facility] [id number] Common 13:01:00 Ramon 76157 [facility] 2022-02-04 Outpatient Powers, STLMLC STLC [id number] Common 11:07:02 Ramon 52139 [facility] 2021-04-03 Outpatient Powers, STLMLC STLC [id number] Common 14:09:15 Ramon 37039 [facility] 2021-04-03 Outpatient STLMLC STLC [id number] Common 12:01:03 [id number] [facility] 2022-10-28 2022-10-28 Outpatient Daniels_b [facility] [id number] Devoted 00:00:00 00:00:00 0822 [facility] 2022-10-03 2022-10-03 [facility] [id number] Devoted 00:00:00 00:00:00 0728 Medica l Group 2022-08-21 2022-08-21 CORBY Visit Mychal Gina 2.16.840. 2.16.840.1 . [id number] Devoted 12:30:00 13:30:00 1.222438. 115250.4.6. 5CS Medical 4.6.67157 [id number] 2022-06-13 2022-06-13 CORBY Visit Wilner Elise 2.16.840. 2.16.840.1 . [id number] Devoted 18:30:00 19:30:00 1.070112. 723396.4.6. GEK Medical 4.6.73820 [id number] 2022-06-05 2022-06-05 CAV Duyen 2.16.840. 2.16.840.1. CLA [id number] Devoted 17:00:00 18:00:00 Shilo 1.762115. 473819.4.6. [facility] Medical 4.6.26752 [id number] 2022-03-22 2022-03-22 (TEL) STLMLC STLMLC [id number] Co mmon 00:00:00 00:00:00 Spirit - [facility] 2022-03-18 2022-03-18 (ESTPT) STLMLC STLMLC [id number] Co mmon 00:00:00 00:00:00 Toña do d Patient - [facility] 2022-02-13 2022-02-13 OFFICE STLMLC STLMLC [id number] Co mmon 00:00:00 00:00:00 VISIT EST Spir it PT LEVEL 3 - [facility] 2022-02-06 2022-02-06 OFFICE STLMLC STLMLC [id number] Co mmon 00:00:00 00:00:00 VISIT EST Spir it PT LEVEL 3 - [facility] 2022-01-02 2022-01-02 CAV Duyen 2.16.840. 2.16.840.1. CLA [id number] Devoted 18:00:00 19:00:00 Shilo 1.094139. 138750.4.[address]. [address] 4.6.87659 [id number] 2021-12-25 2021-12-25 Outpatient Daniels_b DMG [facility] [id number] -2021 Devoted 00:00:00 00:00:00 1019 Medica l Group 2021-12-25 2021-12-25 Outpatient Danivioleta_b [facility] [id number] Devoted 00:00:00 00:00:00 0506 Medica l Group 2021-09-24 2021-09-24 Travel 1.2.840.1 1.2.379.732 [id number] Methodi 00:00:00 00:00:[address] 3.430.2.7 0.2.7.3.698 Ho spita .3.030022 084.8 l .8 2021-09-20 2021-09-20 Outpatient Tello_M [facility] [id number] Devoted 03:38:00 03:38:00 0715 Medica l Group 2021-09-19 2021-09-19 Emergency Amato, 1.2.840.1 [id number] Methodi 15:47:00 18:31:[address] 3.430.2.7 Hospit a .3.661294 l .8 2021-09-19 2021-09-19 (TEL) STLMLC STLC [id number] Co mmon 00:00:00 00:00:00 [facility] 2021-09-19 2021-09-19 Travel 1.2.840.1 1.2.920.144 [id number] Methodi 00:00:00 00:00:[address] 3.430.2.7 0.2.7.3.698 Ho spita .3.857881 084.8 l .8 2021-09-18 2021-09-18 (TEL) STLC STLC [id number] Co mmon 00:00:00 00:00:00 [facility] 2021-07-05 2021-07-05 CORBY Avis 2.16.840. 2.16.840.1. CLAC [id number] Devoted 16:30:00 17:00:00 Jackson 1.220497. 587179.4.6. ZYU Medical 4.6.18943 [id number] 2021-06-24 2021-06-24 CORBY Avis 2.16.840. 2.16.840.1. CLAC [id number] Devoted 16:30:00 17:00:00 Jackson 1.351988. 846551.4.6. CAU Medical 4.6.61068 [id number] 2021-06-21 2021-06-21 CORBY Avis 2.16.840. 2.16.840.1. CLAC [id number] Devoted 14:00:00 14:30:00 Jackson 1.897261. 205383.4.6. 5JR Medical 4.6.09189 [id number] 2021-06-14 2021-06-14 CORBY Avis 2.16.840. 2.16.840.1. CLA [id number] Devoted 14:30:00 15:30:00 Jackson 1.398922. 147030.4.6. 85U Medical 4.6.63508 [id number] 2021-04-23 2021-04-23 Outpatient Trevino_M DMG [facility] [id number] -2021 Devoted 08:00:00 08:00:00 0215 Medica l Group 2021-03-21 2021-03-21 CAV Nell 2.16.840. 2.16.840.1. CLA [id number] Devoted 16:30:00 17:30:00 Joan 1.761347. 020226.4.6. Z4G Medical 4.6.17868 [id number] [id number] 2021-03-12 2021-03-12 Outpatient Trevino_M DMG [facility] [id number] -2021 Devoted 03:11:00 03:11:00 0104 Medica l Group 2021-02-11 2021-02-11 Outpatient [facility] [id number] Devoted 05:35:00 05:35:00 1206 Medica l Group 2021-02-11 2021-02-11 OFFICE STLMLC STLMLC [id number] Co mmon 00:00:00 00:00:00 VISIT EST Spir it PT LEVEL 3 - [facility] 2021-01-11 2021-01-11 OFFICE STLMLC STLMLC [id number] Co mmon 00:00:00 00:00:00 VISIT EST Spir it PT LEVEL 3 - [facility] 2020-06-15 2020-06-16 Observatio nullFlavo [facility] [id number] Memoria 05:09:00 00:09:00 karl Caruso 98 l [facility] 2020-06-15 2020-06-16 Observatio nullFlavo [facility] 3487 [id number] Memoria 05:09:00 00:09:00 karl Caruso 98 l [facility] 2020-06-15 2020-06-15 Outpatient Charly [facility] [id number] 00:09:00 19:09:00 Mandeep Mchugh 2020-06-15 2020-06-15 Outpatient [facility] [id number] Memoria 00:09:00 19:09:00 MANDEEP Chowdhury [facility] 2020-02-14 2020-02-14 Outpatient STLMLC STLMLC [id number] Common 00:00:00 00:00:00 [facility] 2020-02-07 2020-02-07 Outpatient STLMLC STLMLC [id number] Common 00:00:00 00:00:00 [facility] 2020-01-17 2020-01-17 Outpatient STLMLC STLMLC [id number] Common 00:00:00 00:00:00 [facility] 2020-01-16 2020-01-16 Outpatient STLMLC STLMLC [id number] Common 00:00:00 00:00:00 [facility] 2020-01-09 2020-01-09 Outpatient STLMLC STLMLC [id number] Common 00:00:00 00:00:00 [facility] 2014-01-21 2014-02-20 Tots nullFlavo [facility] [id number] Memoria 14:00:00 05:59:00 Soo Caruso 09 l ADEN Caruso 2014-01-21 2014-02-20 Tots nullFlavo [facility] [id number] Memoria 14:00:00 05:59:00 Therapy r Shady Caruso 2014-01-21 2014-02-19 Outpatient Tastard, 2.16.840. 2.16.840.1. [id number] 08:00:00 23:59:00 Birdie Amparo 1.909071. 778344.3.61 09 3.615.0.1 5.0.962 56 8268-11-15 2014-02-19 Outpatient Tastard, 2.16.840. 2.16.840.1. [id number] 08:00:00 23:59:00 Birdie Amparo 1.942254. 223923.3.61 09 3.615.0.1 5.0.289 91 5745-11-15 2014-02-19 Outpatient Tastard, 2.16.840. 2.16.840.1. [id number] 08:00:00 23:59:00 Birdie Amparo 1.248771. 822933.3.61 09 3.615.0.1 5.0.140 65 3990-10-11 2014-01-16 Tots nullFlavo [facility] [id number] Memoria 13:00:00 05:59:00 Therapy r Shady SAMANIEGO Shady 2013-12-17 2014-01-16 Tots nullFlavo [facility] [id number] Memoria 13:00:00 05:59:00 Therapy tamie SAMANIEGO Shady 2013-12-17 2014-01-15 Outpatient Tastard, 2.16.840. 2.16.840.1. [id number] 08:00:00 23:59:00 Birdie Amparo 1.855297. 642813.3.61 08 3.615.0.1 5.0.905 91 9200-10-08 2013-12-15 Outpatient nullFlavo [facility] [id number] Memoria 19:55:00 04:59:00 tamie Caruso John irais GARNRETamie Shady 2013-12-14 2013-12-15 Outpatient [facility]Flavo [facility] [id number] [id number] Memoria 19:55:00 04:59:00 tamie Caruso John irais GARNERTamie Shady 2013-12-14 2013-12-14 Outpatient Nicholas, 2.16.840. 2.16.840.1. 3 [id number] 14:55:00 23:59:00 Gamaliel 1.105379. 084191.3.61 11 Daniel 3.615.0.1 5.0.268 36 6999-09-06 2013-12-12 Tots nullFlavo [facility] [id number] Memoria 13:00:00 04:59:00 Therapy r Bristow 07 l TIRR Shady 2013-11-12 2013-12-12 Tots nullFlavo [facility] [id number] Memoria 13:00:00 04:59:00 Therapy r Shady 07 l PASCUALR Shady 2013-11-12 2013-12-11 Outpatient Tastard, 2.16.840. 2.16.840.1. [id number] 08:00:00 23:59:00 Birdie Amparo 1.077271. 838171.3.61 07 3.615.0.1 5.0.711 22 9159-09-09 2013-11-16 Outpatient nullFlavo [facility] [id number] Memoria 13:01:00 04:59:00 r Shady 10 l PASCUALR Shady 2013-11-15 2013-11-16 Outpatient [facility]Flavo [facility] [id number] Memoria 13:01:00 04:59:00 r Shady 10 l PASCUALR Shady 2013-11-15 2013-11-15 Outpatient Michelle, 2.16.840. 2.16.840.1. 3 [id number] 08:01:00 23:59:00 Cori Rodriguez 1.823123. 702476.3.61 10 3.615.0.1 5.0.777 18 4259-08-02 2013-11-07 Tots [facility]Flavo [facility] [id number] Memoria 13:00:00 04:59:00 Therapy r Bristow 06 l TIRR Shady 2013-10-08 2013-11-07 Tots nullFlavo [facility] [id number] Memoria 13:00:00 04:59:00 Therapy r Shady 06 l TIRR Shady 2013-10-08 2013-11-06 Outpatient Tastard, 2.16.840. 2.16.840.1. [id number] 08:00:00 23:59:00 Birdie Amparo 1.621051. 261920.3.61 06 3.615.0.1 5.0.371 79 4688-07-05 2013-10-10 Tots [facility]Flavo [facility] [id number] Memoria 13:00:00 04:59:00 Therapy r Shady 05 l ADEN Caruso 2013-09-10 2013-10-10 Tots [facility]Flavo [facility] [id number] Memoria 13:00:00 04:59:00 Therapy r Shady 05 l ADEN Caruso 2013-09-10 2013-10-09 Outpatient Tastard, 2.16.840. 2.16.840.1. [id number] 08:00:00 23:59:00 Birdie Amparo 1.632654. 595460.3.61 05 3.615.0.1 5.0.990 35 6387-05-02 2013-07-09 Outpatient [facility]Flavo [facility] [id number] [id number] Memoria 16:26:00 04:59:00 r Shady Caruso 2013-07-08 2013-07-09 Outpatient [facility]Flavo [facility] [id number] Memoria 16:26:00 04:59:00 r Shady 04 l ADEN Caruso 2013-07-08 2013-07-08 Outpatient Tastard, 2.16.840. 2.16.840.1. [id number] 11:26:00 23:59:00 Birdie Amparo 1.863997. 274305.3.61 04 3.615.0.1 5.0.692 97 0406-04-01 2013-07-07 Tots [facility]Flavo [facility] [id number] Memoria 14:13:00 04:59:00 Therapy r Shady 03 l ADEN Caruso 2013-06-07 2013-07-07 Tots [facility]Fl[facility] [id number] Memoria 14:13:00 04:59:00 Therapy r Shady 03 l ADEN Caruso 2013-06-07 2013-07-06 Outpatient Tastard, 2.16.840. 2.16.840.1. [id number] 09:13:00 23:59:00 Birdie Christensen 1.117357. 504562.3.61 03 3.615.0.1 5.0.147 36 2438-04-14 2013-06-21 Outpatient nullFlavo [place] [id number] Memoria 14:43:00 04:59:00 r Bristow 02 l TIRR Shady 2013-06-20 2013-06-21 [facility] [id number] Memoria 14:43:00 04:59:00 r Bristow 02 l TIRR Bristow 2013-06-20 2013-06-20 Outpatient Roberto Carlos, 2.16.840. 2.16.840.1. [id number] 09:43:00 23:59:00 Tung Salguero 1.909502. 189095.3.61 02 3.615.0.1 5.0.101 01 Results Test Description Test Time Test Comments Results Result Comments Source URINE AND STOOL 2020-06-15 16:30:00 Test Item Value Reference Range Interpretation Comme nts UA Blood (test code = UA Blood) Small *ABN*(06/15/20 11:30 AM) [facility] AND [id number] 16:30:00 Test Item Value Reference Range Interpretation Comments UA Nitrite (test code Positive *ABN*(06/15/20 = UA Nitrite) 11:30 AM) [facility] AND [id number] 16:30:00 Test Item Value Reference Range Interpretation Comments UA Leuk Est (test code Large *ABN*(06/15/20 = UA Leuk Est) 11:30 AM) [facility] AND [id number] 16:30:00 Test Item Value Reference Range Interpretation Comments UA WBC (test code = 84 See_Comment [Automa faye message] The UA WBC) system which ge nerated this result transmit faye reference range : <=5. The reference range was not used to interpr et this result as nathaly l/abnormal. [facility] AND [id number] 16:30:00 Test Item Value Reference Range Interpretation Comments UA RBC (test code = 9 See_Comment [Automa faye message] The UA RBC) system which ge nerated this result transmit faye reference range : <=2. The reference range was not used to interpr et this result as nathaly l/abnormal. [facility] AND [id number] 16:30:00 Test Item Value Reference Range Interpretation Comments UA Bacteria (test code = UA Moderate /HPF Bacteria) [facility] AND [id number] 16:30:00 Test Item Value Reference Range Interpretation Comments UA Sq Epi (test code = UA Sq Epi) None Seen [facility] AND [id number] 16:30:00 Test Item Value Reference Range Interpretation Comments UA Color (test code = UA Color) Chani [facility] AND [id number] 16:30:00 Test Item Value Reference Range Interpretation Comments UA Glucose (test code = UA Glucose) 500 [facility] AND [id number] 16:30:00 Test Item Value Reference Range Interpretation Comments UA Urobilinogen (test code = UA <=1.0 mg/dL 0.1-1.0 Urobilinogen) [facility]ATE:ORDQN:[id number] 16:30:00 Test Item Value Reference Range Interpretation Comments Culture: Urine (test >100,000 CFU/mL Proteus code = Culture: mirabilis >100,000 Urine) CFU/mL [facility]:PT:ISOLATE:ORDQN:[id number] 16:30:00 Test Item Value Reference Range Interpretation Comments Proteus mirabilis (test Proteus mirabilis code = Proteus mirabilis) [facility] [id number] 16:30:00 Test Item Value Reference Range Interpretation Comments UA Turbidity (test code Marked *ABN*(06/15/20 = UA Turbidity) 11:30 AM) [facility] AND [id number] 16:30:00 Test Item Value Reference Range Interpretation Comments UA Spec Grav (test code = UA Spec 1.022 1 Grav) [facility] AND [id number] 16:30:00 Test Item Value Reference Range Interpretation Comments UA pH (test code = UA pH) 7.0 1 5.0-8.0 [facility] AND [id number] 16:30:00 Test Item Value Reference Range Interpretation Comments UA Protein (test code = UA Protein) 100 mg/dL [facility] [id number] 16:30:00 Test Item Value Reference Range Interpretation Comments UA Ketones (test code = UA Trace mg/dL Ketones) [facility] [id number] 16:30:00 Test Item Value Reference Range Interpretation Comments UA Bili (test code = Negative *NA*(06/15/20 UA Bili) 11:30 AM) [facility] [id number] 16:30:00 Test Item Value Reference Range Interpretation Comments UA Nitrite (test code Positive *ABN*(06/15/20 = UA Nitrite) 11:30 AM) [facility] [id number] 16:30:00 Test Item Value Reference Range Interpretation Comments UA Leuk Est (test code Large *ABN*(06/15/20 = UA Leuk Est) 11:30 AM) [facility] AND [id number] 16:30:00 Test Item Value Reference Range Interpretation Comments UA WBC (test code = 84 See_Comment [Automa faye message] The UA WBC) system which ge nerated this result transmit faye reference range : <=5. The reference range was not used to interpr et this result as nathaly l/abnormal. [facility] [id number] 16:30:00 Test Item Value Reference Range Interpretation Comments UA RBC (test code = 9 See_Comment [Automa faye message] The UA RBC) system which ge nerated this result transmit faye reference range : <=2. The reference range was not used to interpr et this result as nathaly l/abnormal. [facility] [id number] 16:30:00 Test Item Value Reference Range Interpretation Comments UA Bacteria (test code = UA Moderate /HPF Bacteria) [facility] [id number] 16:30:00 Test Item Value Reference Range Interpretation Comments UA Sq Epi (test code = UA Sq Epi) None [facility] [id number] 16:30:00 Test Item Value Reference Range Interpretation Comments UA Color (test code = UA Color) Chani [facility] [id number] 16:30:00 Test Item Value Reference Range Interpretation Comments UA Glucose (test code = UA Glucose) 500 [facility] [id number] 16:30:00 Test Item Value Reference Range Interpretation Comments UA Urobilinogen (test code = UA <=1.0 mg/dL 0.1-1.0 Urobilinogen) [facility]:PT:ISOLATE:ORDQN:[id number] 16:30:00 Test Item Value Reference Range Interpretation Comments Culture: Urine (test >100,000 CFU/mL Proteus code = Culture: mirabilis >100,000 Urine) CFU/mL Skin [facility]:PT:ISOLATE:ORDQN:[id number] 16:30:00 Test Item Value Reference Range Interpretation Comments Proteus mirabilis (test Proteus mirabilis code = Proteus mirabilis) [facility] AND [id number] 16:30:00 Test Item Value Reference Range Interpretation Comments UA Turbidity (test code Marked *ABN*(06/15/20 = UA Turbidity) 11:30 AM) [facility] AND [id number] 16:30:00 Test Item Value Reference Range Interpretation Comments UA Spec Grav (test code = UA Spec 1.022 1 Grav) [facility] AND [id number] 16:30:00 Test Item Value Reference Range Interpretation Comments UA pH (test code = UA pH) 7.0 1 5.0-8.0 [facility] AND [id number] 16:30:00 Test Item Value Reference Range Interpretation Comments UA Protein (test code = UA Protein) 100 mg/dL [facility] AND [id number] 16:30:00 Test Item Value Reference Range Interpretation Comments UA Ketones (test code = UA Trace mg/dL Ketones) [facility] AND [id number] 16:30:00 Test Item Value Reference Range Interpretation Comments UA Bili (test code = Negative *NA*(06/15/20 UA Bili) 11:30 AM) [facility] AND [id number] 16:30:00 Test Item Value Reference Range Interpretation Comments UA Blood (test code = Small *ABN*(06/15/20 UA Blood) 11:30 AM) [facility] AND [id number] 16:30:00 Test Item Value Reference Range Interpretation Comments UA Nitrite (test code Positive *ABN*(06/15/20 = UA Nitrite) 11:30 AM) [facility] [id number] 16:30:00 Test Item Value Reference Range Interpretation Comments UA Leuk Est (test code Large *ABN*(06/15/20 = UA Leuk Est) 11:30 AM) [facility] Tk AND [id number] 16:30:00 Test Item Value Reference Range Interpretation Comments UA WBC (test code = 84 See_Comment [Automa faye message] The UA WBC) system which ge nerated this result transmit faye reference range : <=5. The reference range was not used to interpr et this result as nathaly l/abnormal. [facility] [id number] 16:30:00 Test Item Value Reference Range Interpretation Comments UA RBC (test code = 9 See_Comment [Automa faye message] The UA RBC) system which ge nerated this result transmit faye reference range : <=2. The reference range was not used to interpr et this result as nathaly l/abnormal. [facility] [id number] 16:30:00 Test Item Value Reference Range Interpretation Comments UA Bacteria (test code = UA Moderate /HPF Bacteria) [facility] [id number] 16:30:00 Test Item Value Reference Range Interpretation Comments UA Sq Epi (test code = UA Sq Epi) None Seen [facility] [id number] 16:30:00 Test Item Value Reference Range Interpretation Comments UA Color (test code = UA Color) Chani [facility] [id number] 16:30:00 Test Item Value Reference Range Interpretation Comments UA Glucose (test code = UA Glucose) 500 [facility] [id number] 16:30:00 Test Item Value Reference Range Interpretation Comments UA Urobilinogen (test code = UA <=1.0 mg/dL 0.1-1.0 Urobilinogen) [facility] ShadyZAKFTAZIDIME:SUSC:PT:ISOLATE:ORDQN:[id number] 16:30:00 Test Item Value Reference Range Interpretation Comments Culture: Urine (test >100,000 CFU/mL Proteus code = Culture: mirabilis >100,000 Urine) CFU/mL Skin [facility]USC:PT:ISOLATE:ORDQN:[id number] 16:30:00 Test Item Value Reference Range Interpretation Comments Proteus mirabilis (test Proteus mirabilis code = Proteus mirabilis) [facility] AND [id number] 16:30:00 Test Item Value Reference Range Interpretation Comments UA Turbidity (test code Marked *ABN*(06/15/20 = UA Turbidity) 11:30 AM) [facility] AND [id number] 16:30:00 Test Item Value Reference Range Interpretation Comments UA Spec Grav (test code = UA Spec 1.022 1 Grav) [facility] AND [id number] 16:30:00 Test Item Value Reference Range Interpretation Comments UA pH (test code = UA pH) 7.0 1 5.0-8.0 [facility] AND [id number] 16:30:00 Test Item Value Reference Range Interpretation Comments UA Protein (test code = UA Protein) 100 mg/dL [facility] AND [id number] 16:30:00 Test Item Value Reference Range Interpretation Comments UA Ketones (test code = UA Trace mg/dL Ketones) [facility] [id number] 16:30:00 Test Item Value Reference Range Interpretation Comments UA Bili (test code = Negative *NA*(06/15/20 UA Bili) 11:30 AM) [facility] [id number] 16:30:00 Test Item Value Reference Range Interpretation Comments UA Blood (test code = Small *ABN*(06/15/20 UA Blood) 11:30 AM) [facility] [id number] 16:30:00 Test Item Value Reference Range Interpretation Comments UA Nitrite (test code Positive *ABN*(06/15/20 = UA Nitrite) 11:30 AM) [facility] [id number] 16:30:00 Test Item Value Reference Range Interpretation Comments UA Leuk Est (test code Large *ABN*(06/15/20 = UA Leuk Est) 11:30 AM) [facility] [id number] 16:30:00 Test Item Value Reference Range Interpretation Comments UA WBC (test code = 84 See_Comment [Automa faye message] The UA WBC) system which ge nerated this result transmit faye reference range : <=5. The reference range was not used to interpr et this result as nathaly l/abnormal. [facility] [id number] 16:30:00 Test Item Value Reference Range Interpretation Comments UA RBC (test code = 9 See_Comment [Automa faye message] The UA RBC) system which ge nerated this result transmit faye reference range : <=2. The reference range was not used to interpr et this result as nathaly l/abnormal. [facility] [id number] 16:30:00 Test Item Value Reference Range Interpretation Comments UA Bacteria (test code = UA Moderate /HPF Bacteria) [facility] [id number] 16:30:00 Test Item Value Reference Range Interpretation Comments UA Sq Epi (test code = UA Sq Epi) None Seen [facility] [id number] 16:30:00 Test Item Value Reference Range Interpretation Comments UA Color (test code = UA Color) [facility] [id number] 16:30:00 Test Item Value Reference Range Interpretation Comments UA Glucose (test code = UA Glucose) 500 [facility] [id number] 16:30:00 Test Item Value Reference Range Interpretation Comments UA Urobilinogen (test code = UA <=1.0 mg/dL 0.1-1.0 Urobilinogen) [facility] ShadyCEFTAZIDIME:SUSC:PT:ISOLATE:ORDQN:[id number] 16:30:00 Test Item Value Reference Range Interpretation Comments Culture: Urine (test >100,000 CFU/mL Proteus code = Culture: mirabilis >100,000 Urine) CFU/mL Skin Emily [facility]annCEFTAZIDIME:SUSC:PT:ISOLATE:ORDQN:[id number] 16:30:00 Test Item Value Reference Range Interpretation Comments Proteus mirabilis (test Proteus mirabilis code = Proteus mirabilis) [facility] [id number] 16:30:00 Test Item Value Reference Range Interpretation Comments UA Turbidity (test code Marked *ABN*(06/15/20 = UA Turbidity) 11:30 AM) [facility] [id number] 16:30:00 Test Item Value Reference Range Interpretation Comments UA Spec Grav (test code = UA Spec 1.022 1 Grav) [facility] AND [id number] 16:30:00 Test Item Value Reference Range Interpretation Comments UA pH (test code = UA pH) 7.0 1 5.0-8.0 [facility] AND [id number] 16:30:00 Test Item Value Reference Range Interpretation Comments UA Protein (test code = UA Protein) 100 mg/dL [facility] AND [id number] 16:30:00 Test Item Value Reference Range Interpretation Comments UA Ketones (test code = UA Trace mg/dL Ketones) [facility] AND [id number] 16:30:00 Test Item Value Reference Range Interpretation Comments UA Bili (test code = Negative *NA*(06/15/20 UA Bili) 11:30 AM) [facility] AND [id number] 16:30:00 Test Item Value Reference Range Interpretation Comments UA Blood (test code = Small *ABN*(06/15/20 UA Blood) 11:30 AM) [facility] AND [id number] 16:30:00 Test Item Value Reference Range Interpretation Comments UA Nitrite (test code Positive *ABN*(06/15/20 = UA Nitrite) 11:30 AM) [facility] AND [id number] 16:30:00 Test Item Value Reference Range Interpretation Comments UA Leuk Est (test code Large *ABN*(06/15/20 = UA Leuk Est) 11:30 AM) [facility] AND [id number] 16:30:00 Test Item Value Reference Range Interpretation Comments UA WBC (test code = 84 See_Comment [Automa faye message] The UA WBC) system which ge nerated this result transmit faye reference range : <=5. The reference range was not used to interpr et this result as nathaly l/abnormal. [facility] AND [id number] 16:30:00 Test Item Value Reference Range Interpretation Comments UA RBC (test code = 9 See_Comment [Automa faye message] The UA RBC) system which ge nerated this result transmit faye reference range : <=2. The reference range was not used to interpr et this result as nathaly l/abnormal. [facility] AND [id number] 16:30:00 Test Item Value Reference Range Interpretation Comments UA Bacteria (test code = UA Moderate /HPF Bacteria) [facility] AND [id number] 16:30:00 Test Item Value Reference Range Interpretation Comments UA Sq Epi (test code = UA Sq Epi) None Seen [facility] AND [id number] 16:30:00 Test Item Value Reference Range Interpretation Comments UA Color (test code = UA Color) Chani [facility] AND [id number] 16:30:00 Test Item Value Reference Range Interpretation Comments UA Glucose (test code = UA Glucose) 500 [facility] AND [id number] 16:30:00 Test Item Value Reference Range Interpretation Comments UA Urobilinogen (test code = UA <=1.0 mg/dL 0.1-1.0 Urobilinogen) [facility]C:PT:ISOLATE:ORDQN:[id number] 16:30:00 Test Item Value Reference Range Interpretation Comments Culture: Urine (test >100,000 CFU/mL Proteus code = Culture: mirabilis >100,000 Urine) CFU/mL Skin [facility]ID[facility]C:PT:ISOLATE:ORDQN:[id number] 16:30:00 Test Item Value Reference Range Interpretation Comments Proteus mirabilis (test Proteus mirabilis code = Proteus mirabilis) [facility] AND [id number] 16:30:00 Test Item Value Reference Range Interpretation Comments UA Turbidity (test code Marked *ABN*(06/15/20 = UA Turbidity) 11:30 AM) [facility] AND [id number] 16:30:00 Test Item Value Reference Range Interpretation Comments UA Spec Grav (test code = UA Spec 1.022 1 Grav) [facility] AND [id number] 16:30:00 Test Item Value Reference Range Interpretation Comments UA pH (test code = UA pH) 7.0 1 5.0-8.0 [facility] AND [id number] 16:30:00 Test Item Value Reference Range Interpretation Comments UA Protein (test code = UA Protein) 100 mg/dL [facility] [id number] 16:30:00 Test Item Value Reference Range Interpretation Comments UA Ketones (test code = UA Trace mg/dL Ketones) [facility] [id number] 16:30:00 Test Item Value Reference Range Interpretation Comments UA Bili (test code = Negative *NA*(06/15/20 UA Bili) 11:30 AM) [facility] [id number] 16:30:00 Test Item Value Reference Range Interpretation Comments UA Blood (test code = Small *ABN*(06/15/20 UA Blood) 11:30 AM) [facility] [id number] 16:30:00 Test Item Value Reference Range Interpretation Comments UA Nitrite (test code Positive *ABN*(06/15/20 = UA Nitrite) 11:30 AM) [facility] [id number] 16:30:00 Test Item Value Reference Range Interpretation Comments UA Leuk Est (test code Large *ABN*(06/15/20 = UA Leuk Est) 11:30 AM) [facility] [id number] 16:30:00 Test Item Value Reference Range Interpretation Comments UA WBC (test code = 84 See_Comment [Automa faye message] The UA WBC) system which ge nerated this result transmit faye reference range : <=5. The reference range was not used to interpr et this result as nathaly l/abnormal. [facility] [id number] 16:30:00 Test Item Value Reference Range Interpretation Comments UA RBC (test code = 9 See_Comment [Automa faye message] The UA RBC) system which ge nerated this result transmit faye reference range : <=2. The reference range was not used to interpr et this result as nathaly l/abnormal. [facility] [id number] 16:30:00 Test Item Value Reference Range Interpretation Comments UA Bacteria (test code = UA Moderate /HPF Bacteria) [facility] [id number] 16:30:00 Test Item Value Reference Range Interpretation Comments UA Sq Epi (test code = UA Sq Epi) None [facility] [id number] 16:30:00 Test Item Value Reference Range Interpretation Comments UA Color (test code = UA Color) [facility] [id number] 16:30:00 Test Item Value Reference Range Interpretation Comments UA Glucose (test code = UA Glucose) 500 [facility] AND [id number] 16:30:00 Test Item Value Reference Range Interpretation Comments UA Urobilinogen (test code = UA <=1.0 mg/dL 0.1-1.0 Urobilinogen) [facility]C:PT:ISOLATE:ORDQN:[id number] 16:30:00 Test Item Value Reference Range Interpretation Comments Culture: Urine (test >100,000 CFU/mL Proteus code = Culture: mirabilis >100,000 Urine) CFU/mL Skin Emily [facility]viewME:SUSC:PT:ISOLATE:ORDQN:[id number] 16:30:00 Test Item Value Reference Range Interpretation Comments Proteus mirabilis (test Proteus mirabilis code = Proteus mirabilis) [facility] AND [id number] 16:30:00 Test Item Value Reference Range Interpretation Comments UA Turbidity (test code Marked *ABN*(06/15/20 = UA Turbidity) 11:30 AM) [facility] AND [id number] 16:30:00 Test Item Value Reference Range Interpretation Comments UA Spec Grav (test code = UA Spec 1.022 1 Grav) [facility] AND [id number] 16:30:00 Test Item Value Reference Range Interpretation Comments UA pH (test code = UA pH) 7.0 1 5.0-8.0 [facility] AND [id number] 16:30:00 Test Item Value Reference Range Interpretation Comments UA Protein (test code = UA Protein) 100 mg/dL [facility] AND [id number] 16:30:00 Test Item Value Reference Range Interpretation Comments UA Ketones (test code = UA Trace mg/dL Ketones) [facility] AND [id number] 16:30:00 Test Item Value Reference Range Interpretation Comments UA Bili (test code = Negative *NA*(06/15/20 UA Bili) 11:30 AM) [facility] AND [id number] 16:30:00 Test Item Value Reference Range Interpretation Comments UA Blood (test code = Small *ABN*(06/15/20 UA Blood) 11:30 AM) [facility] [id number] 16:30:00 Test Item Value Reference Range Interpretation Comments UA Nitrite (test code Positive *ABN*(06/15/20 = UA Nitrite) 11:30 AM) [facility] [id number] 16:30:00 Test Item Value Reference Range Interpretation Comments UA Leuk Est (test code Large *ABN*(06/15/20 = UA Leuk Est) 11:30 AM) [facility] AND [id number] 16:30:00 Test Item Value Reference Range Interpretation Comments UA WBC (test code = 84 See_Comment [Automa faye message] The UA WBC) system which ge nerated this result transmit faye reference range : <=5. The reference range was not used to interpr et this result as nathaly l/abnormal. [facility] [id number] 16:30:00 Test Item Value Reference Range Interpretation Comments UA RBC (test code = 9 See_Comment [Automa faye message] The UA RBC) system which ge nerated this result transmit faye reference range : <=2. The reference range was not used to interpr et this result as nathaly l/abnormal. [facility] [id number] 16:30:00 Test Item Value Reference Range Interpretation Comments UA Bacteria (test code = UA Moderate /HPF Bacteria) [facility] [id number] 16:30:00 Test Item Value Reference Range Interpretation Comments UA Sq Epi (test code = UA Sq Epi) None Seen [facility] AND [id number] 16:30:00 Test Item Value Reference Range Interpretation Comments UA Color (test code = UA Color) Chani [facility] AND [id number] 16:30:00 Test Item Value Reference Range Interpretation Comments UA Glucose (test code = UA Glucose) 500 [facility] AND [id number] 16:30:00 Test Item Value Reference Range Interpretation Comments UA Urobilinogen (test code = UA <=1.0 mg/dL 0.1-1.0 Urobilinogen) [facility] HospitalyogeshTHUANIDIME:SUSC:PT:ISOLATE:ORDQN:[id number] 16:30:00 Test Item Value Reference Range Interpretation Comments Culture: Urine (test >100,000 CFU/mL Proteus code = Culture: mirabilis >100,000 Urine) CFU/mL Skin Emily [facility] HospitalyogeshTHUANIDIME:SUSC:PT:ISOLATE:ORDQN:[id number] 16:30:00 Test Item Value Reference Range Interpretation Comments Proteus mirabilis (test Proteus mirabilis code = Proteus mirabilis) [facility] [id number] 16:30:00 Test Item Value Reference Range Interpretation Comments UA Turbidity (test code Marked *ABN*(06/15/20 = UA Turbidity) 11:30 AM) [facility] [id number] 16:30:00 Test Item Value Reference Range Interpretation Comments UA Spec Grav (test code = UA Spec 1.022 1 Grav) [facility] AND [id number] 16:30:00 Test Item Value Reference Range Interpretation Comments UA pH (test code = UA pH) 7.0 1 5.0-8.0 [facility] [id number] 16:30:00 Test Item Value Reference Range Interpretation Comments UA Protein (test code = UA Protein) 100 mg/dL [facility] AND [id number] 16:30:00 Test Item Value Reference Range Interpretation Comments UA Ketones (test code = UA Trace mg/dL Ketones) [facility] [id number] 16:30:00 Test Item Value Reference Range Interpretation Comments UA Bili (test code = Negative *NA*(06/15/20 UA Bili) 11:30 AM) [facility] [id number] 16:30:00 Test Item Value Reference Range Interpretation Comments UA Blood (test code = Small *ABN*(06/15/20 UA Blood) 11:30 AM) [facility]annCARDIAC [id number] 10:57:00 Test Item Value Reference Range Interpretation Comments Troponin-I (test code no gt See_Comment [Auto mated message] The = Troponin-I) system which g enerated this result transmit faye reference range : <=0.40. The reference r rodrigo was not used to interpr et this result as nathaly l/abnormal. [facility] [id number] 10:57:00 Test Item Value Reference Range Interpretation Comments Troponin-I (test code no gt See_Comment [Auto mated message] The = Troponin-I) system which g enerated this result transmit faye reference range : <=0.40. The reference r rodrigo was not used to interpr et this result as nathaly l/abnormal. [facility] [id number] 10:57:00 Test Item Value Reference Range Interpretation Comments Troponin-I (test code no gt See_Comment [Auto mated message] The = Troponin-I) system which g enerated this result transmit faye reference range : <=0.40. The reference r rodrigo was not used to interpr et this result as nathaly l/abnormal. [facility] CenterRemitly [id number] 10:57:00 Test Item Value Reference Range Interpretation Comments Troponin-I (test code no gt See_Comment [Auto mated message] The = Troponin-I) system which g enerated this result transmit faye reference range : <=0.40. The reference r rodrigo was not used to interpr et this result as nathaly l/abnormal. [facility] CenterEdimer [id number] 10:57:00 Test Item Value Reference Range Interpretation Comments Troponin-I (test code no gt See_Comment [Auto mated message] The = Troponin-I) system which g enerated this result transmit faye reference range : <=0.40. The reference r rodrigo was not used to interpr et this result as nathaly l/abnormal. [facility] CenterEdimer [id number] 10:57:00 Test Item Value Reference Range Interpretation Comments Troponin-I (test code no gt See_Comment [Auto mated message] The = Troponin-I) system which g enerated this result transmit faye reference range : <=0.40. The reference r rodrigo was not used to interpr et this result as nathaly l/abnormal. [facility] CenterEdimer [id number] 10:57:00 Test Item Value Reference Range Interpretation Comments Troponin-I (test code no gt See_Comment [Auto mated message] The = Troponin-I) system which g enerated this result transmit faye reference range : <=0.40. The reference r rodrigo was not used to interpr et this result as nathaly l/abnormal. [facility]annCARDIAC [id number] 06:53:00 Test Item Value Reference Range Interpretation Comments Troponin-I (test code no gt See_Comment [Auto mated message] The = Troponin-I) system which g enerated this result transmit faye reference range : <=0.40. The reference r rodrigo was not used to interpr et this result as nathaly l/abnormal. [facility] [id number] 06:53:00 Test Item Value Reference Range Interpretation Comments Trig (test code = Trig) 330 [facility] [id number] 06:53:00 Test Item Value Reference Range Interpretation Comments Chol (test code = Chol) 174 [facility] [id number] 06:53:00 Test Item Value Reference Range Interpretation Comments HDL (test code = HDL) 28 [facility] HospitalKbjxeddACRIYE7770-11-04 06:53:00 Test Item Value Reference Range Interpretation Comments CHD Risk (test code = CHD Risk) 6.21 1 4.00-7.30 [facility] HospitalDgcunyiOYWTTK9082-74-05 06:53:00 Test Item Value Reference Range Interpretation Comments LDL (Calculated) (test code = LDL 80 (Calculated)) [facility] HospitalBuqxnciPKJVVQ9577-07-22 06:53:00 Test Item Value Reference Range Interpretation Comments VLDL (test code = VLDL) 66 1 [facility] [id number] 06:53:00 Test Item Value Reference Range Interpretation Comments Troponin-I (test code no gt See_Comment [Auto mated message] The = Troponin-I) system which g enerated this result transmit faye reference range : <=0.40. The reference r rodrigo was not used to interpr et this result as nathaly l/abnormal. [facility] [id number] 06:53:00 Test Item Value Reference Range Interpretation Comments Trig (test code = Trig) 330 [facility] [id number] 06:53:00 Test Item Value Reference Range Interpretation Comments Chol (test code = Chol) 174 [facility] Ho[id number] 06:53:00 Test Item Value Reference Range Interpretation Comments HDL (test code = HDL) 28 [facility] [id number] 06:53:00 Test Item Value Reference Range Interpretation Comments CHD Risk (test code = CHD Risk) 6.21 1 4.00-7.30 [facility] HospitalNhqwgwlKAUXWB7334-30-50 06:53:00 Test Item Value Reference Range Interpretation Comments LDL (Calculated) (test code = LDL 80 (Calculated)) [facility] Ho[id number] 06:53:00 Test Item Value Reference Range Interpretation Comments VLDL (test code = VLDL) [address] [facility] CenterCARDIAC [id number] 06:53:00 Test Item Value Reference Range Interpretation Comments Troponin-I (test code no gt See_Comment [Auto mated message] The = Troponin-I) system which g enerated this result transmit faye reference range : <=0.40. The reference r rodrigo was not used to interpr et this result as nathaly l/abnormal. [facility] [id number] 06:53:00 Test Item Value Reference Range Interpretation Comments Trig (test code = Trig) 330 [facility] HospitalIdbuqcmIVUKIS9236-52-11 06:53:00 Test Item Value Reference Range Interpretation Comments Chol (test code = Chol) 174 [facility] [id number] 06:53:00 Test Item Value Reference Range Interpretation Comments HDL (test code = HDL) 28 [facility] HospitalWigjvggTKHKLX3614-00-50 06:53:00 Test Item Value Reference Range Interpretation Comments CHD Risk (test code = CHD Risk) 6.21 1 4.00-7.30 [facility] HospitalYozkztmNQBMFX8361-19-12 06:53:00 Test Item Value Reference Range Interpretation Comments LDL (Calculated) (test code = LDL 80 (Calculated)) [id number] 06:53:00 Test Item Value Reference Range Interpretation Comments VLDL (test code = VLDL) [address] [facility] CenterCARDIAC [id number] 06:53:00 Test Item Value Reference Range Interpretation Comments Troponin-I (test code no gt See_Comment [Auto mated message] The = Troponin-I) system which g enerated this result transmit faye reference range : <=0.40. The reference r rodrigo was not used to interpr et this result as nathaly l/abnormal. [facility] [id number] 06:53:00 Test Item Value Reference Range Interpretation Comments Trig (test code = Trig) 330 [facility] HospitalCfcpmckMWNQDJ1106-88-53 06:53:00 Test Item Value Reference Range Interpretation Comments Chol (test code = Chol) 174 [facility] HospitalQkhaaaiQTZNOH6616-93-00 06:53:00 Test Item Value Reference Range Interpretation Comments HDL (test code = HDL) 28 [facility] CenterVrygjrqPNSXSZ2655-62-22 06:53:00 Test Item Value Reference Range Interpretation Comments CHD Risk (test code = CHD Risk) 6.21 1 4.00-7.30 [facility] HospitalUkqhrzsDFJXMW2878-99-59 06:53:00 Test Item Value Reference Range Interpretation Comments LDL (Calculated) (test code = LDL 80 (Calculated)) [facility] HospitalVgvvlxpEWIHSP5993-24-93 06:53:00 Test Item Value Reference Range Interpretation Comments VLDL (test code = VLDL) [address] [facility] CenterCARDIAC [id number] 06:53:00 Test Item Value Reference Range Interpretation Comments Troponin-I (test code no gt See_Comment [Auto mated message] The = Troponin-I) system which g enerated this result transmit faye reference range : <=0.40. The reference r rodrigo was not used to interpr et this result as nathaly l/abnormal. [facility] HospitalBwspmabWETVDC7350-47-58 06:53:00 Test Item Value Reference Range Interpretation Comments Trig (test code = Trig) 330 [facility] BrownwoodRurmdicAHECLL2038-17-97 06:53:00 Test Item Value Reference Range Interpretation Comments Chol (test code = Chol) 174 [facility] CenterCovawraONHXWU3545-38-55 06:53:00 Test Item Value Reference Range Interpretation Comments HDL (test code = HDL) 28 [facility] CenterMmdmcgeQFZZRZ2975-25-39 06:53:00 Test Item Value Reference Range Interpretation Comments CHD Risk (test code = CHD Risk) 6.21 1 4.00-7.30 [facility] HospitalXegpaqxDEAJER7427-61-59 06:53:00 Test Item Value Reference Range Interpretation Comments LDL (Calculated) (test code = LDL 80 (Calculated)) [facility] CenterIelsxooBOEPAN3991-62-69 06:53:00 Test Item Value Reference Range Interpretation Comments VLDL (test code = VLDL) [address] [facility] CenterCARDIAC EAHLASY5729-01-18 06:53:00 Test Item Value Reference Range Interpretation Comments Troponin-I (test code no gt See_Comment [Auto mated message] The = Troponin-I) system which g enerated this result transmit faye reference range : <=0.40. The reference r rodrigo was not used to interpr et this result as nathaly l/abnormal. [facility] GgxvuucCDJEVL9596-74-81 06:53:00 Test Item Value Reference Range Interpretation Comments Trig (test code = Trig) 330 [facility] DzmjmniYABNID0920-19-13 06:53:00 Test Item Value Reference Range Interpretation Comments Chol (test code = Chol) 174 [facility] ZjspeoqVGACUB1898-68-38 06:53:00 Test Item Value Reference Range Interpretation Comments HDL (test code = HDL) 28 [facility] [id number] 06:53:00 Test Item Value Reference Range Interpretation Comments CHD Risk (test code = CHD Risk) 6.21 1 4.00-7.30 [facility] AsuiuiqBNPSPG3499-64-01 06:53:00 Test Item Value Reference Range Interpretation Comments LDL (Calculated) (test code = LDL 80 (Calculated)) [facility] EotrlanJFRTCN5386-10-96 06:53:00 Test Item Value Reference Range Interpretation Comments VLDL (test code = VLDL) 66 1 [facility] HospitalannCARDIAC [id number] 06:53:00 Test Item Value Reference Range Interpretation Comments Troponin-I (test code no gt See_Comment [Auto mated message] The = Troponin-I) system which g enerated this result transmit faye reference range : <=0.40. The reference r rodrigo was not used to interpr et this result as nathaly l/abnormal. [facility] NtireysBCERNT6201-63-54 06:53:00 Test Item Value Reference Range Interpretation Comments Trig (test code = Trig) 330 [facility] JmrzujyBOFGKT2020-26-65 06:53:00 Test Item Value Reference Range Interpretation Comments Chol (test code = Chol) 174 [facility] [id number] 06:53:00 Test Item Value Reference Range Interpretation Comments HDL (test code = HDL) 28 [facility] [id number] 06:53:00 Test Item Value Reference Range Interpretation Comments CHD Risk (test code = CHD Risk) 6.21 1 4.00-7.30 [facility] [id number] 06:53:00 Test Item Value Reference Range Interpretation Comments LDL (Calculated) (test code = LDL 80 (Calculated)) [facility] [id number] 06:53:00 Test Item Value Reference Range Interpretation Comments VLDL (test code = VLDL) 66 1 [facility] ShadyBLOOD [id number] 14:28:00 Test Item Value Reference Range Interpretation Comments CULTURE (BEAKER) (test No growth in 5 days code = 1095) POCT-GLUCOSE [id number] 12:04:00 Test Item Value Reference Range Interpretation Comments POC-GLUCOSE METER 179 mg/dL 70-110 H TESTED AT [facility] 6720 (BEAKER) (test code = [place] 1538) [address] BASIC METABOLIC [id number] 09:51:00 Test Item Value Reference Range Interpretation [...] PATIEN TS. CBC W/PLT COUNT & AUTO [id number] 09:20:00 Test Item Value Reference Range Interpretation [...] L 0.00-0.20 (test code = 417) 0.00POCT-GLUCOSE [id number] 07:15:00 Test Item Value Reference Range Interpretation Comments POC-GLUCOSE METER 246 mg/dL 70-110 H TESTED AT [facility] 6720 (BEAKER) (test code = ADOLFO Willett [facility] 1538) [address] POCT-GLUCOSE [id number] 21:12:00 Test Item Value Reference Range Interpretation Comments POC-GLUCOSE METER 89 mg/dL 70-110 TESTED AT [place] [address] ([facility] (test code = [facility] Willett [facility] [address] 1538) POCT-GLUCOSE [id number] 17:12:00 Test Item Value Reference Range Interpretation Comments POC-GLUCOSE METER 217 mg/dL 70-110 H TESTED AT [place] [address] ([facility] (test code = [facility] Tamie [facility] 1538) [address] URINE [id number] 12:07:00 Test Item Value Reference Range Interpretation Comments CULTURE ([facility] (test <10,000 col/mL skin code = 1095) emily POCT-GLUCOSE [id number] 11:30:00 Test Item Value Reference Range Interpretation Comments POC-GLUCOSE METER 205 mg/dL 70-110 H TESTED AT [place] [address] ([facility] (test code = [facility] Tamie [facility] 1538) [address] POCT-GLUCOSE [id number] 07:36:00 Test Item Value Reference Range Interpretation Comments POC-GLUCOSE METER 195 mg/dL 70-110 H TESTED AT [place] [address] ([facility] (test code = [facility] 1538) [address] CBC W/PLT COUNT & AUTO [id number] 05:14:00 Test Item Value Reference Range Interpretation Comments WHITE BLOOD CELL COUNT (AKER) 6.7 K/ L 4.0-10.0 (test code = 775) RED BLOOD CELL COUNT ([facility] 4.40 M/ L 4.20-5.80 (test code = [...] CELL DISTRIBUTION WIDTH 14.7 % 10.3-14.2 H (AKER) (test code = 412) PLATELET COUNT (BEAKER) [...] 0.00-0.20 (test code = 417) 0.00BASI METABOLIC [id number] 05:14:00 Test Item Value Reference Range Interpretation [...] NOT APPLICABLE FOR DIALYSIS PATIEN TS. POCT-GLUCOSE [id number] 21:04:00 Test Item Value Reference Range Interpretation Comments POC-GLUCOSE METER 178 mg/dL 70-110 H TESTED AT [place] [address] ([facility] (test code = [facility] 1538) [address] POCT-GLUCOSE [id number] 17:07:00 Test Item Value Reference Range Interpretation Comments POC-GLUCOSE METER 88 mg/dL 70-110 TESTED AT [place] [address] ([facility] (test code = [facility] [address] 1538) POCT-GLUCOSE [id number] 12:30:00 Test Item Value Reference Range Interpretation Comments POC-GLUCOSE METER 107 mg/dL 70-110 TESTED AT [place] [address] ([facility] (test code = [facility] 1538) [address] POCT-GLUCOSE [id number] 07:46:00 Test Item Value Reference Range Interpretation Comments POC-GLUCOSE METER 169 mg/dL 70-110 H TESTED AT [place] [address] ([facility] (test code = [facility] 1538) [address] CBC W/PLT COUNT & AUTO [id number] 07:42:00 Test Item Value Reference Range Interpretation Comments WHITE BLOOD CELL COUNT (AKER) 6.5 K/ L 4.0-10.0 (test code = 775) RED BLOOD CELL COUNT ([facility] 4.57 M/ L 4.20-5.80 (test code = [...] RED CELL DISTRIBUTION WIDTH 13.8 % 10.3-14.2 (AKER) (test code = 412) PLATELET COUNT (BEAKER) [...] 0.00-0.20 (test code = 417) 0.00BASIC METABOLIC [id number] 06:13:00 Test Item Value Reference Range Interpretation [...] NOT APPLICABLE FOR DIALYSIS PATIEN TS. POCT-GLUCOSE [id number] 22:12:00 Test Item Value Reference Range Interpretation Comments POC-GLUCOSE METER 238 mg/dL 70-110 H TESTED AT [place] [address] (BEAKER) (test code = [facility] 1538) [address] POCT-GLUCOSE [id number] 17:25:00 Test Item Value Reference Range Interpretation Comments POC-GLUCOSE METER 102 mg/dL 70-110 TESTED AT [place] [address] (BEAKER) (test code = [facility] 1538) [address] URINALYSIS W/ [id number] 12:50:00 Test Item Value Reference Range Interpretation [...] /HPF SOURCE(BEAKER) (test code = 2795) POCT-GLUCOSE [id number] 12:04:00 Test Item Value Reference Range Interpretation Comments POC-GLUCOSE METER 226 mg/dL 70-110 H TESTED AT [place] [address] (BEAKER) (test code = [facility] 1538) [address] POCT-GLUCOSE [id number] 08:00:00 Test Item Value Reference Range Interpretation Comments POC-GLUCOSE METER 300 mg/dL 70-110 H TESTED AT [facility] 6720 (BEAKER) (test code = [place] 1538) [address] BASIC METABOLIC [id number] 06:50:00 Test Item Value Reference Range Interpretation [...] PATIEN TS. CBC W/PLT COUNT & AUTO [id number] 06:01:00 Test Item Value Reference Range Interpretation [...] L 0.00-0.20 (test code = 417) 0.00POCT-GLUCOSE [id number] 21:25:00 Test Item Value Reference Range Interpretation Comments POC-GLUCOSE METER 279 mg/dL 70-110 H TESTED AT [facility] 6720 (BEAKER) (test code = ADOLFO [place] 1538) [address] HEMOGLOBIN [id number] 21:13:00 Test Item Value Reference Range Interpretation Comments HEMOGLOBIN A1C (BEAKER) (test code = 10.7 % 4.3-6.1 H 368) CBC W/PLT COUNT & AUTO [id number] 20:47:00 Test Item Value Reference Range Interpretation [...] L 0.00-0.20 (test code = 417) 0.00POCT-GLUCOSE [id number] 18:31:00 Test Item Value Reference Range Interpretation Comments POC-GLUCOSE METER 205 mg/dL 70-110 H TESTED AT [facility] 6720 (BEAKER) (test code = [place] 1538) [address] URINE [id number] 17:34:00 Test Item Value Reference Range Interpretation Comments Time (test code = Time) 2 min [facility] [id number] 17:34:00 Test Item Value Reference Range Interpretation Comments Time (test code = Time) 12 [id number] 17:34:00 Test Item Value Reference Range Interpretation Comments Time (test code = Time) 14 min [facility] [id number] 17:34:00 Test Item Value Reference Range Interpretation Comments Time (test code = Time) 8 min [facility] [id number] 17:34:00 Test Item Value Reference Range Interpretation Comments Time (test code = Time) 5 min [facility] [id number] 17:34:00 Test Item Value Reference Range Interpretation Comments Time (test code = Time) 17 min [facility] [id number] 17:34:00 Test Item Value Reference Range Interpretation Comments Time (test code = Time) 28 min [facility] [id number] 17:34:00 Test Item Value Reference Range Interpretation Comments Time (test code = Time) 20 min [facility] [id number] 17:34:00 Test Item Value Reference Range Interpretation Comments Time (test code = Time) 23 min [facility] [id number] 17:34:00 Test Item Value Reference Range Interpretation Comments Time (test code = Time) 26 min [facility] [id number] 17:34:00 Test Item Value Reference Range Interpretation Comments Time (test code = Time) 33 min [facility] [id number] 17:34:00 Test Item Value Reference Range Interpretation Comments Time (test code = Time) 2 min [facility] [id number] 17:34:00 Test Item Value Reference Range Interpretation Comments Time (test code = Time) 12 min [facility] [id number] 17:34:00 Test Item Value Reference Range Interpretation Comments Time (test code = Time) 14 min [facility] [id number] 17:34:00 Test Item Value Reference Range Interpretation Comments Time (test code = Time) 8 min [facility] [id number] 17:34:00 Test Item Value Reference Range Interpretation Comments Time (test code = Time) 5 min [facility] [id number] 17:34:00 Test Item Value Reference Range Interpretation Comments Time (test code = Time) 17 min [facility] [id number] 17:34:00 Test Item Value Reference Range Interpretation Comments Time (test code = Time) 28 min [facility] [id number] 17:34:00 Test Item Value Reference Range Interpretation Comments Time (test code = Time) 20 min [facility] [id number] 17:34:00 Test Item Value Reference Range Interpretation Comments Time (test code = Time) 23 min [facility] [id number] 17:34:00 Test Item Value Reference Range Interpretation Comments Time (test code = Time) 26 min [facility] [id number] 17:34:00 Test Item Value Reference Range Interpretation Comments Time (test code = Time) 33 min [facility] [id number] 17:34:00 Test Item Value Reference Range Interpretation Comments Time (test code = Time) 2 min [facility] [id number] 17:34:00 Test Item Value Reference Range Interpretation Comments Time (test code = Time) 12 min [facility] [id number] 17:34:00 Test Item Value Reference Range Interpretation Comments Time (test code = Time) 14 min [facility] [id number] 17:34:00 Test Item Value Reference Range Interpretation Comments Time (test code = Time) 8 min [facility] [id number] 17:34:00 Test Item Value Reference Range Interpretation Comments Time (test code = Time) 5 min [facility] [id number] 17:34:00 Test Item Value Reference Range Interpretation Comments Time (test code = Time) 17 min [facility] [id number] 17:34:00 Test Item Value Reference Range Interpretation Comments Time (test code = Time) 28 min [facility] [id number] 17:34:00 Test Item Value Reference Range Interpretation Comments Time (test code = Time) 20 min [facility] [id number] 17:34:00 Test Item Value Reference Range Interpretation Comments Time (test code = Time) 23 min [facility] [id number] 17:34:00 Test Item Value Reference Range Interpretation Comments Time (test code = Time) 26 min [facility] [id number] 17:34:00 Test Item Value Reference Range Interpretation Comments Time (test code = Time) 33 min [facility] [id number] 17:34:00 Test Item Value Reference Range Interpretation Comments Time (test code = Time) 2 min [facility] [id number] 17:34:00 Test Item Value Reference Range Interpretation Comments Time (test code = Time) 12 min [facility] [id number] 17:34:00 Test Item Value Reference Range Interpretation Comments Time (test code = Time) 14 min [facility] [id number] 17:34:00 Test Item Value Reference Range Interpretation Comments Time (test code = Time) 8 min [facility] [id number] 17:34:00 Test Item Value Reference Range Interpretation Comments Time (test code = Time) 5 min [facility] [id number] 17:34:00 Test Item Value Reference Range Interpretation Comments Time (test code = Time) 17 min [facility] [id number] 17:34:00 Test Item Value Reference Range Interpretation Comments Time (test code = Time) 28 min [facility] [id number] 17:34:00 Test Item Value Reference Range Interpretation Comments Time (test code = Time) 20 min [facility] [id number] 17:34:00 Test Item Value Reference Range Interpretation Comments Time (test code = Time) 23 min [facility] [id number] 17:34:00 Test Item Value Reference Range Interpretation Comments Time (test code = Time) 26 min [facility] [id number] 17:34:00 Test Item Value Reference Range Interpretation Comments Time (test code = Time) 33 min [facility] [id number] 17:34:00 Test Item Value Reference Range Interpretation Comments Time (test code = Time) 2 min [facility] [id number] 17:34:00 Test Item Value Reference Range Interpretation Comments Time (test code = Time) 12 min [facility] [id number] 17:34:00 Test Item Value Reference Range Interpretation Comments Time (test code = Time) 14 min [facility] [id number] 17:34:00 Test Item Value Reference Range Interpretation Comments Time (test code = Time) 8 min [facility] [id number] 17:34:00 Test Item Value Reference Range Interpretation Comments Time (test code = Time) 5 min [facility] [id number] 17:34:00 Test Item Value Reference Range Interpretation Comments Time (test code = Time) 17 min [facility] [id number] 17:34:00 Test Item Value Reference Range Interpretation Comments Time (test code = Time) 28 min [facility] [id number] 17:34:00 Test Item Value Reference Range Interpretation Comments Time (test code = Time) 20 min [facility] [id number] 17:34:00 Test Item Value Reference Range Interpretation Comments Time (test code = Time) 23 min [facility] [id number] 17:34:00 Test Item Value Reference Range Interpretation Comments Time (test code = Time) 26 min [facility] [id number] 17:34:00 Test Item Value Reference Range Interpretation Comments Time (test code = Time) 33 min [facility] [id number] 17:34:00 Test Item Value Reference Range Interpretation Comments Time (test code = Time) 2 min [facility] [id number] 17:34:00 Test Item Value Reference Range Interpretation Comments Time (test code = Time) 12 min [facility] [id number] 17:34:00 Test Item Value Reference Range Interpretation Comments Time (test code = Time) 14 min [facility] [id number] 17:34:00 Test Item Value Reference Range Interpretation Comments Time (test code = Time) 8 min [facility] [id number] 17:34:00 Test Item Value Reference Range Interpretation Comments Time (test code = Time) 5 min [facility] [id number] 17:34:00 Test Item Value Reference Range Interpretation Comments Time (test code = Time) 17 min [facility] [id number] 17:34:00 Test Item Value Reference Range Interpretation Comments Time (test code = Time) 28 min [facility] [id number] 17:34:00 Test Item Value Reference Range Interpretation Comments Time (test code = Time) 20 min [facility] [id number] 17:34:00 Test Item Value Reference Range Interpretation Comments Time (test code = Time) 23 min [facility] [id number] 17:34:00 Test Item Value Reference Range Interpretation Comments Time (test code = Time) 26 min [facility] [id number] 17:34:00 Test Item Value Reference Range Interpretation Comments Time (test code = Time) 33 min [facility] [id number] 17:34:00 Test Item Value Reference Range Interpretation Comments Time (test code = Time) 2 min [facility] [id number] 17:34:00 Test Item Value Reference Range Interpretation Comments Time (test code = Time) 12 min [facility] [id number] 17:34:00 Test Item Value Reference Range Interpretation Comments Time (test code = Time) 14 min [facility] [id number] 17:34:00 Test Item Value Reference Range Interpretation Comments Time (test code = Time) 8 min [facility] [id number] 17:34:00 Test Item Value Reference Range Interpretation Comments Time (test code = Time) 5 min [facility] [id number] 17:34:00 Test Item Value Reference Range Interpretation Comments Time (test code = Time) 17 min [facility] [id number] 17:34:00 Test Item Value Reference Range Interpretation Comments Time (test code = Time) 28 min [facility] [id number] 17:34:00 Test Item Value Reference Range Interpretation Comments Time (test code = Time) 20 min [facility] [id number] 17:34:00 Test Item Value Reference Range Interpretation Comments Time (test code = Time) 23 min [facility] [id number] 17:34:00 Test Item Value Reference Range Interpretation Comments Time (test code = Time) 26 min [facility] [id number] 17:34:00 Test Item Value Reference Range Interpretation Comments Time (test code = Time) 33 min [facility]
[2022-11-09] MEDS: CEFTRIAXONE 1,000 MG in NA CHLORIDE 0.9% 50 ML IVPB SCH ×3 (04:00→22:33)
[2022-11-09 04:12] LABS: Absolute Lymphocytes (CBC) 0.4 K/uL (0.7-4.9); Hematocrit 27.1 % (39.6-49.0); Lymphocytes % 8.3 % (15.3-44.8); MCV 88.6 fL (80-100); MPV 10.2 fL (7.6-11.3); Platelets 98 thou/uL (152-406); RBC Red Blood Cell Count 3.06 M/uL (4.33-5.43)
[2022-11-09 04:15] LABS: Protime INR 1.33
[2022-11-09 04:24] LABS: SARS-CoV-2 Antigen Rapid Res Negative (Negative)
[2022-11-09 04:35] LABS: Albumin 2.6 g/dL (3.4-5.0); Bilirubin Direct 0.1 mg/dL (0-0.2); Bilirubin Indirect, Calculated 0.2 mg/dL (0.2-0.8); Bilirubin Total 0.3 mg/dL (0.2-1.0); Magnesium 1.9 mg/dL (1.6-2.4); Potassium 4.6 mEq/L (3.5-5.1); Protein, Total 6.8 g/dL (6.4-8.2); Troponin High Sensitivity 16.6 pg/mL (<58.9)
--- NOTE | 2022-11-09 04:35 | ER ---
Nurse's Notes [facility] Name: Ramirez Chaudhari Age: 57 yrs Sex: Male : 1965 Arrival Date: 11/09/2022 Time: 03:14 Bed 13 Private MD: Diagnosis: Dyspnea;Unspecified combined systolic (congestive) and diastolic (congestive) heart failure;Hypoxemia;Chronic atrial fibrillation;Obesity, unspecified;Anemia, unspecified;Type 1 diabetes mellitus with hyperglycemia Presentation: 11/09 03:31 Chief complaint: Patient states: I have this burps that come up into my chest and it ha1 makes me feel like I can not breath. 03:31 Coronavirus screen: Vaccine status:. Ebola Screen: No symptoms or risks identified at [facility] this time. Initial Sepsis Screen: Does the patient meet any 2 criteria? No. Patient's initial sepsis screen is negative. Does the patient have a suspected source of infection? No. Patient's initial sepsis screen is negative. Risk Assessment: Do you want to hurt yourself or someone else? Patient reports no desire to harm self or others. Onset of symptoms was November 09, 2022. 03:31 Method Of Arrival: Wheelchair [facility] 03:31 Acuity: NOHEMI 3 ha1 Triage Assessment: 03:31 General: Appears uncomfortable, Behavior is calm, cooperative. Pain: Denies pain. ha1 Neuro: Level of Consciousness is awake, alert, obeys commands, Oriented to person, place, time, situation. Cardiovascular: Reports shortness of breath, Heart tones S1 S2 present Capillary refill < 3 seconds. Respiratory: Reports shortness of breath Airway is patent Respiratory effort is even, Respiratory pattern is regular, symmetrical. GI: No signs and/or symptoms were reported involving the gastrointestinal system. Abdomen is round distended. : No signs and/or symptoms were reported regarding the genitourinary system. Valera in place. Derm: Skin is normal, Reports wound on the foot. Musculoskeletal: Range of motion: limited in lower extremities. Historical: - Allergies: 04:17 Ibuprofen; ha1 04:17 metformin; ha1 04:17 spironolactone; ha1 - PMHx: 04:17 ADD/ADHD; AFIB; Congestive heart failure; Diabetes - IDDM; GERD; Gout; High ha1 Cholesterol; Hydrocele Left Testicle; Hypertension; Hypothyroidism; Migraines; Paraplegia; Renal Disease; Spinal Stroke; - Immunization history:: Adult Immunizations unknown. - Social history:: Smoking status: Patient denies any tobacco usage or history of. Screenin:23 Abuse screen: Denies threats or abuse. Denies injuries from another. Nutritional ha1 screening: No deficits noted. Tuberculosis screening: No symptoms or risk factors identified. Assessment: 03:31 Reassessment: see triage assessment. ha1 04:30 Reassessment: Patient and/or family updated on plan of care and expected duration. Pain ha1 level reassessed. Patient states symptoms have improved. 05:30 Reassessment: Patient and/or family updated on plan of care and expected duration. Pain ha1 level reassessed. 05:30 Respiratory: Airway is patent Respiratory effort is even, Respiratory pattern is ha1 regular, tachypnea. 07:00 Reassessment: Pt sleeping, tolerating Bi-PAP well. . aa5 07:20 General: Appears comfortable, Behavior is calm, cooperative. Pain: Denies pain. Neuro: aa5 Level of Consciousness is awake, alert, obeys commands, Oriented to person, place, time, situation. Cardiovascular: Heart tones S1 S2 present Edema Pitting edema 4+ to tai legs Rhythm is regular. Respiratory: Airway is patent Respiratory effort is even, unlabored, Respiratory pattern is regular, symmetrical, Breath sounds are clear bilaterally. GI: Abdomen is round. : Valera in place to gravity drainage (from home). EENT: Reports "cotton mouth". Derm: Skin is dry, Skin is normal, Skin temperature is warm Wound vac noted to left foot. Musculoskeletal: Pt is non-ambulatory, uses wheelchair. 07:25 Reassessment: Pt states "I am okay with being admitted just know that I will not be aa5 wearing that mask (referring to bi-pap mask)". Pt currently receiving oxygen via 3 L NC and tolerating well. . 08:05 Reassessment: Hospitalist at bedside. . aa5 Vital Signs: 03:31 BP 150 / 79; Pulse 71; Resp 20 S; Temp 99.5(O); Pulse Ox 95% on R/A; Weight 117.93 kg; ha1 Height 5 ft. 8 in. ; 04:00 BP 165 / 79; Pulse 69; Resp 22 S; Pulse Ox 94% on R/A; ha1 05:00 BP 156 / 82; Pulse 64; Resp 19 S; Pulse Ox 99% on BiPAP; ha1 06:00 BP 125 / 59; Pulse 68; Resp 22 S; Pulse Ox 98% on 35 lpm BiPAP; ha1 07:20 BP 151 / 80; Pulse 62; Resp 18 S; Temp 98(TE); Pulse Ox 100% on BiPAP; aa5 07:25 Pulse Ox 96% on 3 lpm NC; aa5 03:31 Body Mass Index 39.53 (117.93 kg, 172.72 cm) ha1 07:25 Pt requested break from Bi-PAP mask. Tolerating O2 via NC well. aa5 ED Course: 03:21 Patient arrived in ED. kj1 03:31 Patient has correct armband on for positive identification. Bed in low position. Call ha1 light in reach. Side rails up X 1. Adult w/ patient. 03:34 Hank Saunders MD is Attending Physician. himanshu 03:45 Accessed PICC line. Good blood return. Flushes easily. ha1 04:10 Maryuri York, RN is Primary Nurse. ha1 04:10 Basic Metabolic Panel Sent. ha1 04:10 CBC with Diff Sent. ha1 04:10 LFT's Sent. ha1 04:10 Magnesium Sent. ha1 04:10 NT PRO-BNP Sent. ha1 04:10 PT-INR Sent. ha1 04:10 Troponin HS Sent. ha1 04:17 Triage completed. ha1 04:33 XRAY Chest (1 view) In Process Unspecified. EDMS 04:33 Tunde Zheng MD is Hospitalizing Provider. himanshu 05:00 Inserted saline lock: 20 gauge in right antecubital area, using aseptic technique. ha1 Blood collected. 06:11 CT Chest Abdomen Pelvis W/O Contrast In Process Unspecified. EDMS Administered Medications: 04:22 CANCELLED (Duplicate Order): NS 0.9% IV 1000 ml IV at 1 bolus Per protocol; 1000 mL himanshu bolus 05:16 Drug: Furosemide IVP 60 mg Route: IVP; Site: right antecubital; ha1 06:00 Follow up: Response: No adverse reaction ha1 05:25 Drug: Nitroglycerin Transdermal Ointment 2 % 1 inches Route: Transdermal; Site: ha1 affected area; 06:00 Follow up: Response: No adverse reaction ha1 05:25 Drug: Insulin Regular Human Sub-Q 10 units {Co-Signature: [email or web address] (Bina Maddox RN).} ha1 Route: Sub-Q; Site: right upper arm; 06:30 Follow up: Response: No adverse reaction ha1 05:27 Drug: Insulin Regular Human IVP 10 units {Co-Signature: sg5 (Bina Maddox RN).} ha1 Route: IVP; Site: right antecubital; 06:30 Follow up: Response: No adverse reaction ha1 05:32 Drug: Rocephin IV 1 grams Route: IV; Rate: per protocol; Site: right antecubital; ha1 06:00 Follow up: Response: No adverse reaction ha1 Point of Care Testing: Blood Glucose: 10:25 Blood Glucose: 303 mg/dL; aa5 Ranges: Output: 07:20 Urine: 950ml (Valera); Total: 950ml. aa5 Outcome: 04:34 Decision to Hospitalize by Provider. [facility] 10:00 Admitted to ER Hold. Please see [facility] for further documentation. aa5 10:00 Condition: stable 10:00 Instructed on the need for admit, Demonstrated understanding of instructions. 19:58 Admitted to Tele accompanied by tech, room 405, Report called to NORBERTO Villalobos me1 21:09 Patient left the ED. kl Signatures: Dispatcher [employer] Missy Zhang RN RN kl Anderson, Corey, MD MD cha Calderon, Audri, RN RN aa5 Lisa Jin kj1 Maryuri York RN RN 1 Paige Gonzalez RN RN ak1 Bina Maddox RN sg5 Corrections: (The following items were deleted from the chart) 06:15 06:14 Insulin Regular Human Sub-Q 10 units Sub-Q in right upper arm ha1 ha1
--- NOTE | 2022-11-09 04:35 | EDPHYS ---
Physician Documentation [facility] Name: Ramirez Chaudhari Age: 57 yrs Sex: Male : 1965 Arrival Date: 11/09/2022 Time: 03:14 Bed 13 Private MD: ED Physician Hank Saunders HPI: 11/09 04:27 This 57 yrs old Male presents to ER via Wheelchair with complaints of himanshu Shortness Of Breath, Congestion. 04:27 The patient has shortness of breath with light activity. Onset: The symptoms/episode himanshu began/occurred 3 day(s) ago. Duration: The symptoms are continuous, and are steadily getting worse. The patient's shortness of breath is aggravated by coughing, exertion, light activity, supine position. Associated signs and symptoms: Pertinent positives: non-productive cough. Severity of symptoms: At their worst the symptoms were moderate yesterday, in the emergency department the symptoms are unchanged. The patient has experienced similar episodes in the past, several times. sob, swollen. Historical: - Allergies: 04:17 Ibuprofen; ha1 04:17 metformin; ha1 04:17 spironolactone; ha1 - PMHx: 04:17 ADD/ADHD; AFIB; Congestive heart failure; Diabetes - IDDM; GERD; Gout; High ha1 Cholesterol; Hydrocele Left Testicle; Hypertension; Hypothyroidism; Migraines; Paraplegia; Renal Disease; Spinal Stroke; - Immunization history:: Adult Immunizations unknown. - Social history:: Smoking status: Patient denies any tobacco usage or history of. ROS: 04:28 Constitutional: Negative for fever, chills, and weight loss, Eyes: Negative for injury, himanshu pain, redness, and discharge, ENT: Negative for injury, pain, and discharge, Neck: Negative for injury, pain, and swelling, Cardiovascular: Negative for chest pain, palpitations, and edema, Back: Negative for injury and pain, : Negative for injury, bleeding, discharge, and swelling, Skin: Negative for injury, rash, and discoloration, Neuro: Negative for headache, weakness, numbness, tingling, and seizure, Psych: Negative for depression, anxiety, suicide ideation, homicidal ideation, and hallucinations, Allergy/Immunology: Negative for hives, rash, and allergies, Endocrine: Negative for neck swelling, polydipsia, polyuria, polyphagia, and marked weight changes, Hematologic/Lymphatic: Negative for swollen nodes, abnormal bleeding, and unusual bruising. 04:28 Respiratory: Positive for cough, shortness of breath, at rest. 04:28 Abdomen/GI: Positive for abdominal distension. 04:28 MS/extremity: Positive for of the left leg. Exam: 04:28 Constitutional: This is a well developed, well nourished patient who is awake, alert, himanshu and in no acute distress. Head/Face: Normocephalic, atraumatic. Eyes: Pupils equal round and reactive to light, extra-ocular motions intact. Lids and lashes normal. Conjunctiva and sclera are non-icteric and not injected. Cornea within normal limits. Periorbital areas with no swelling, redness, or edema. ENT: Nares patent. No nasal discharge, no septal abnormalities noted. Tympanic membranes are normal and external auditory canals are clear. Oropharynx with no redness, swelling, or masses, exudates, or evidence of obstruction, uvula midline. Mucous membranes moist. Neck: Trachea midline, no thyromegaly or masses palpated, and no cervical lymphadenopathy. Supple, full range of motion without nuchal rigidity, or vertebral point tenderness. No Meningismus. Chest/axilla: Normal chest wall appearance and motion. Nontender with no deformity. No lesions are appreciated. Cardiovascular: Regular rate and rhythm with a normal S1 and S2. No gallops, murmurs, or rubs. Normal PMI, no JVD. No pulse deficits. Abdomen/GI: Soft, non-tender, with normal bowel sounds. No distension or tympany. No guarding or rebound. No evidence of tenderness throughout. Back: No spinal tenderness. No costovertebral tenderness. Full range of motion. Male : Normal genitalia with no discharge or lesions. Skin: Warm, dry with normal turgor. Normal color with no rashes, no lesions, and no evidence of cellulitis. MS/ Extremity: Pulses equal, no cyanosis. Neurovascular intact. Full, normal range of motion. Psych: Awake, alert, with orientation to person, place and time. Behavior, mood, and affect are within normal limits. 04:28 ECG was reviewed by the Attending Physician. 04:28 Respiratory: mild respiratory distress is noted, Respirations: normal, Breath sounds: decreased breath sounds, that are moderate, rhonchi, that are mild, stridor, is not appreciated. 04:37 ECG was reviewed by the Attending Physician. [facility] Vital Signs: 03:31 BP 150 / 79; Pulse 71; Resp 20 S; Temp 99.5(O); Pulse Ox 95% on R/A; Weight 117.93 kg; ha1 Height 5 ft. 8 in. ; 04:00 BP 165 / 79; Pulse 69; Resp 22 S; Pulse Ox 94% on R/A; ha1 05:00 BP 156 / 82; Pulse 64; Resp 19 S; Pulse Ox 99% on BiPAP; ha1 06:00 BP 125 / 59; Pulse 68; Resp 22 S; Pulse Ox 98% on 35 lpm BiPAP; ha1 07:20 BP 151 / 80; Pulse 62; Resp 18 S; Temp 98(TE); Pulse Ox 100% on BiPAP; aa5 07:25 Pulse Ox 96% on 3 lpm NC; aa5 03:31 Body Mass Index 39.53 (117.93 kg, 172.72 cm) ha1 07:25 Pt requested break from Bi-PAP mask. Tolerating O2 via NC well. aa5 MDM: 03:34 Patient medically screened. [facility] 04:34 Differential diagnosis: Anemia Anxiety Reaction asthma, CHF exacerbation, pulmonary himanshu edema, reactive airway disease, Unstable Angina bowel obstruction, diverticulitis, gastritis, non-specific abd pain, Peptic Ulcer Disease, Ureterolithiasis, urinary tract infection. Antibiotic administration: Not indicated. Immunization status: Influenza vaccine: within last 5 years. Data reviewed: vital signs, nurses notes, lab test result(s), EKG, radiologic studies, CT scan, plain films. Consideration of Admission/Observation Patient was admitted/placed on observation. Escalation of care including admission/observation considered. I considered the following discharge prescriptions or medication management in the emergency department Medications were administered in the Emergency Department. See MAR. Test considered but Not performed: Ultrasound no abd usg. Historians other than the Patient: Spouse/Significant Other: , well informed. Care significantly affected by the following chronic conditions: Diabetes, Hypertension, Congestive Heart Failure, Obesity, Chronic Kidney Disease. 11/09 03:34 Order name: Basic Metabolic Panel; Complete Time: 04:39 [facility] 11/09 03:34 Order name: CBC with Diff; Complete Time: 05:09 [facility] 11/09 03:34 Order name: LFT's; Complete Time: 04:39 [facility] 11/09 03:34 Order name: Magnesium; Complete Time: 04:39 [facility] 11/09 03:34 Order name: NT PRO-BNP; Complete Time: 04:39 [facility] 11/09 03:34 Order name: PT-INR; Complete Time: 04:26 [facility] 11/09 03:34 Order name: Troponin HS; Complete Time: 04:39 [facility] 11/09 03:34 Order name: SARS RAPID; Complete Time: 04:26 [facility] 11/09 03:34 Order name: Flu; Complete Time: 04:39 [facility] 11/09 04:23 Order name: Blood Culture Adult (2) [facility] 11/09 04:23 Order name: Lactate w/ 2H reflex if indic.; Complete Time: 05:53 [facility] 11/09 05:00 Order name: CBC Smear Scan; Complete Time: 05:09 EDNM 11/09 05:09 Order name: ABG; Complete Time: 05:40 la 11/09 06:45 Order name: Glucose, Ancillary Testing; Complete Time: 20:06 EDNM 11/09 10:37 Order name: Glucose, Ancillary Testing; Complete Time: 20:06 EDNM 11/09 12:58 Order name: Glucose, Ancillary Testing; Complete Time: 20:06 EDNM 11/09 13:45 Order name: Creatine Phosphokinase; Complete Time: 20:06 EDNM 11/09 13:49 Order name: UR SODIUM; Complete Time: 20:06 EDNM 11/09 13:49 Order name: UR POTASSIUM; Complete Time: 20:06 EDNM 11/09 13:52 Order name: Osmolality, Urine; Complete Time: 20:06 EDNM 11/09 14:09 Order name: PTH Intact; Complete Time: 20:06 EDNM 11/09 14:11 Order name: Ur Protein; Complete Time: 20:06 EDNM 11/09 15:02 Order name: Vitamin D, 25 (OH), TOTAL; Complete Time: 20:06 EDNM 11/09 16:58 Order name: Glucose, Ancillary Testing; Complete Time: 20:06 EDNM 11/09 03:34 Order name: XRAY Chest (1 view); Complete Time: 20:06 [facility] 11/09 04:22 Order name: CT Chest Abdomen Pelvis W/O Contrast; Complete Time: 17:43 [facility] 11/09 04:25 Order name: BIPAP [facility] 11/09 03:34 Order name: EKG; Complete Time: 03:35 [facility] 11/09 03:34 Order name: Cardiac monitoring; Complete Time: 04:10 [facility] 11/09 03:34 Order name: EKG - Nurse/Tech; Complete Time: 04:10 [facility] 11/09 03:34 Order name: IV Saline Lock; Complete Time: 04:10 [facility] 11/09 03:34 Order name: Labs collected and sent; Complete Time: 04:10 [facility] 11/09 03:34 Order name: O2 Per Protocol; Complete Time: 04:10 [facility] 11/09 03:34 Order name: O2 Sat Monitoring; Complete Time: 04:10 [facility] EC:37 Rate is 70 beats/min. Rhythm is irregularly irregular. QRS [place] is Normal. NM interval himanshu is normal. QRS interval is normal. QT interval is normal. No Q waves. T waves are Normal. No ST changes noted. Clinical impression: Atrial Fibrillation. Interpreted by me. Reviewed by me. Administered Medications: 04:22 CANCELLED (Duplicate Order): NS 0.9% IV 1000 ml IV at 1 bolus Per protocol; 1000 mL himanshu bolus 05:16 Drug: Furosemide IVP 60 mg Route: IVP; Site: right antecubital; ha1 06:00 Follow up: Response: No adverse reaction ha1 05:25 Drug: Nitroglycerin Transdermal Ointment 2 % 1 inches Route: Transdermal; Site: [facility] affected area; 06:00 Follow up: Response: No adverse reaction ha1 05:25 Drug: Insulin Regular Human Sub-Q 10 units {Co-Signature: sg5 (Bina Maddox RN).} ha1 Route: Sub-Q; Site: right upper arm; 06:30 Follow up: Response: No adverse reaction ha1 05:27 Drug: Insulin Regular Human IVP 10 units {Co-Signature: sg5 (Bina Maddox RN).} ha1 Route: IVP; Site: right antecubital; 06:30 Follow up: Response: No adverse reaction ha1 05:32 Drug: Rocephin IV 1 grams Route: IV; Rate: per protocol; Site: right antecubital; ha1 06:00 Follow up: Response: No adverse reaction 1 Point of Care Testing: Blood Glucose: 10:25 Blood Glucose: 303 mg/dL; aa5 Ranges: Critical Glucose Levels:Adult <50 mg/dl or >400 mg/dl <40 mg/dl or >180 mg/dl Disposition Summary: 11/09/22 04:34 Hospitalization Ordered Hospitalization Status: Inpatient Admission himanshu Provider: Tunde Zheng cha Condition: Fair himanshu Problem: an acute exacerbation himanshu Symptoms: have improved himanshu Bed/Room Type: Standard himanshu Location: Telemetry/MedSurg (Inpatient)(11/09/22 19:12) cg Room Assignment: 405(11/09/22 19:12) cg Diagnosis - Dyspnea himanshu - Unspecified combined systolic (congestive) and diastolic (congestive) heart failure himanshu - Hypoxemia himanshu - Chronic atrial fibrillation himanshu - Obesity, unspecified himanshu - Anemia, unspecified himanshu - Type 1 diabetes mellitus with hyperglycemia himanshu Forms: - Medication Reconciliation Form himanshu - SBAR form himanshu - Leadership Thank You Letter himanshu Signatures: Dispatcher [employer] Hank Swartz MD MD cha Calderon, Audri RN RN aa5 James Thomas FNP-Juancarlos LEYVA-Cla1 Luci Linn RN RN Maryuri York RN RN ha1 Bina Maddox RN sg5 Corrections: (The following items were deleted from the chart) 04:22 03:34 NS 0.9% IV 1000 ml IV at 1 bolus Per protocol; 1000 mL bolus ordered. himanshu [facility] 04:37 04:28 Rate is 70 beats/min. Rhythm is regular. QRS [place] is Normal. NM interval is himanshu normal. QRS interval is normal. QT interval is normal. No Q waves. T waves are Normal. No ST changes noted. Clinical impression: NSR w/ Non-specific ST/T Changes and No evidence of ischemia. Interpreted by me. Reviewed by me. himanshu 11: 04:34 Telemetry/MedSurg (Inpatient) himanshu aa5 11: 04:34 himanshu aa5 19:12 11:09 [facility] ER HOLD aa5 cg 19:12 11:09 ERHOLD- aa5 cg
[2022-11-09] MEDS ORDERED: FUROSEMIDE 20 MG/ 2ML VIAL ONE ×2 (04:43→07:08)
[2022-11-09] MEDS ORDERED: CEFTRIAXONE 1000 MG/VIAL ONE (04:43)
[2022-11-09] MEDS ORDERED: NA CHLORIDE 0.9% 50 ML ONE (04:43)
[2022-11-09 04:59] LABS: Anisocytosis SLIGHT; Blood Morphology Comment NOTED (NOT SEEN); Platelet Estimate DECR; Polychromasia SLIGHT; White Blood Cell Scan OK (OK)
[2022-11-09 05:31] LABS: Arterial Blood Carboxyhemoglob 1.6 % (0-1.5); Blood Gas Oxyhemoglobin 95.4 % (94-97); Blood O2 Saturation 98.2 % (92-98.5)
[2022-11-09] MEDS ORDERED: INSULIN -REGULAR HUMAN 50 UNIT/0.5 ML ML ONE (05:32)
[2022-11-09] MEDS ORDERED: NITROGLYCERIN 1 GM PKT TD ONE (05:34)
--- NOTE | 2022-11-09 07:30 | RAD REPORT ---
EXAM DESCRIPTION: CTChest Abd Pelvis Wo Con - 11/09/2022 6:09 am CLINICAL HISTORY: Abdominal distention;Dyspnea COMPARISON: Chest Abd Pelvis Wo Con dated 10/24/2022; Chest For Pe Angio dated 01/24/2019; Thorax W/ Con dated 11/24/2016; CT CHEST ABD PELVIS WO CONT dated 02/23/2014 TECHNIQUE: CT of the chest, abdomen, and pelvis was performed. All CT scans are performed using dose optimization technique as appropriate and may include automated exposure control or mA/KV adjustment according to patient size. FINDINGS: Thorax: Chest Wall: No abnormal mass right subclavian approach PICC Lungs: New 13 mm nodule in the right upper lobe on image 23, series 201. Given the time course of dev elopment, this is almost certainly benign. Dependent atelectasis. Pleura: No effusions or pneumothorax. Consuelo/Mediastinum: No lymphadenopathy. Aorta/Pulmonary Arteries: Unremarkable Heart: Normal size. Coronary artery calcifications. Abdomen/Pelvis: Liver: No acute abnormality or suspicious lesions. Biliary: Pericholecystic edema suspected. Motion artifact. No calcified stones appreciated. Stomach: No significant focal abnormality. Duodenum: No significant focal abnormality. Pancreas: No significant abnormality. Spleen: No significant abnormality. Adrenal: No suspicious lesions. Kidney/ureter: No hydronephrosis. No renal calculi. Retroperitoneum: No retroperitoneal adenopathy. Vascular: No aneurysm. Bowel: No significant focal abnormality. Peritoneum: Small volume of nonspecific pelvic free fluid. Bladder: Decompressed via Valera catheter. Reproductive: No adnexal masses. Bones: No acute fracture. Other: [place] skin thickening. IMPRESSION: 1. No definite acute findings in the chest. New small 13 mm nodule in the right upper lo be that was not present 10/24/2022 and presumably represents a small focus of infection or inflammati on but may not be clinically significant. 2. The gallbladder wall appears thickened. Suspected pericholecystic edema as well. Motion artifact i s present. Correlate with LFTs.
--- NOTE | 2022-11-09 09:16 | P.HP ---
Certification for Inpatient Patient admitted to: Inpatient With expected LOS: >2 Midnights Patient will require the following post-hospital care: Home Health Services (wound care) Practitioner: I am a practitioner with admitting privileges, knowledge of patient current condition, hospital course, and medical plan of care. Services: Services provided to patient in accordance with Admission requirements found in Title 42 Section 412.3 of the Code of Federal Regulations Patient History Date of Service: 11/09/22 Reason for admission: SOB History of Present Illness: Ramirez Chaudhari, a 57-year-old male with a past medical history of combined systolic and diastolic congestive heart failure, chronic atrial fibrillation, obesity, diabetes, hypertension, hypothyroidism, hyperlipidemia, paraplegia (spinal stroke 2013), bilateral lower leg diabetic ulcer wounds, stage III chronic kidney disease. Patient presented to the ED with shortness of breath, phlegm running down his throat, and orthopnea. Patient was found to be in acute hypoxic respiratory distress secondary to acute on chronic CHF exacerbation with BNP 1520, sodium 129, potassium 4.6, BUN/creatinine 58/2.18, GFR 35, glucose 590, ABG PH7.39, CO2 41.8, O2115.0, HCO3 24.8 on NC. BP 150 / 79; Pulse 71; Resp 20 S; Temp 99.5(O); Pulse Ox 95% on R/A; Weight 117.93 kg; ha1 Height 5 ft. 8 in. ; 04:00 BP 165 / 79; Pulse 69; Resp 22 S; Pulse Ox 94% on R/A; ha1 03:31 Body Mass Index 39.53 (117.93 kg, 172.72 cm), EC:28 Rate is 70 beats/min. Rhythm is regular. QRS [place] is Normal. CT interval is normal. QRS himanshu interval is normal. QT interval is normal. No Q waves. T waves are Normal. No ST changes noted. Clinical impression: NSR w/ Non-specific ST/T Changes and No evidence of ischemia. CT abd/pelvis reveals 1. No definite acute findings in the chest. New small 13 mm nodule in the right upper lobe that was not present 10/24/2022 and presumably represents a small focus of infection or inflammation but may not be clinically significant. 2. The gallbladder wall appears thickened. Suspected pericholecystic edema as well. Motion artifact is present. Correlate with LFTs. On examination, audible wheezing present but can be cleared with a cough, ill appearing and respiratory consulted, distended nontender abdomen, BLE edema with wound vac to left lower leg and jamey bandage to right lower leg. 3 LNC sating 96% not on home oxygen, myers in place, PICC line to right upper extremity for rocephin IV six week course (unclear of beginning date). Allergies metformin Adverse Reaction (Severe, Verified 08/17/22 02:22) kidney damage ibuprofen Adverse Reaction (Verified 08/17/22 02:22) seecom stitches Adverse Reaction (Mild, Uncoded 02/06/20 12:27) Rash Home Medications: Insulin Detemir [Levemir Flextouch] 40 units SQ BID 01/15/21 Levothyroxine Sodium [Euthyrox] 1 tab PO DAILY 01/15/21 Allopurinol 100 mg PO DAILY 09/24/21 Insulin Aspart Prot/Insuln Asp [Novolog Mix 70-30 Flexpen] 30 unit SQ TID 11/22/21 Albuterol Inhaler [Ventolin Inhaler*] 2 puff IH BID PRN 08/17/22 Finerenone [Kerendia] 10 mg PO DAILY 08/17/22 Furosemide [Lasix*] 40 mg PO BIDL 08/17/22 oxyBUTYnin chloride [Oxybutynin Chloride] 5 mg PO DAILY 08/17/22 Codeine/APAP [Tylenol #3*] 1 tab PO Q8H PRN #10 tab 08/18/22 Amiodarone HCl [Cordarone*] 200 mg PO BID #60 tab 10/20/22 Amlodipine [Norvasc*] 10 mg PO DAILY #30 tab 10/20/22 Apixaban [Eliquis] 5 mg PO BID #60 tab 10/20/22 Ensure Max Protein 330 ml PO TID #90 can 10/20/22 Hydralazine [Apresoline*] 25 mg PO TID #90 tab 10/20/22 Medihoney [Medihoney Woundcare Gel*] 1 appl TOP DAILY #1 tube 10/20/22 Metoprolol Tartrate [Lopressor*] 25 mg PO BID 6AM 6PM #60 tab 10/20/22 Pantoprazole [Protonix Tab*] 40 mg PO DAILY #30 tab 10/20/22 - Past Medical/Surgical History Diabetic: Yes -: Diabetes mellitus type 2 -: HTN -: Gout -: Hyperlipidemia -: Hypothyroidism -: 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 fib on chronic anticoagulation -: Crohn's Disease (non active) -: spinal surgery -: 2 hydroceles -: Fistula repair -: Incomplete spinal stroke -: right hand Psychosocial/ Personal History: Patient is disabled, lives at home with his . - Family History Mother -: Hypertension, Diabetes, Stroke Notes: with gangrene leg - Social History Alcohol use: No CD- Drugs: No Caffeine use: Yes Physical Examination - Vital Signs Pulse Ox (%): 100 - Studies Laboratory Data (last 24 hrs) 11/09/22 11/09/22 11/09/22 03:52 03:52 03:52 WBC 4.40 Hgb 8.7 L Hct 27.1 L Plt Count 98 L PT 14.6 H INR 1.33 Sodium 129 L Potassium 4.6 BUN 58 H Creatinine 2.18 H Glucose 590 H* Magnesium 1.9 Total Bilirubin 0.3 AST 35 ALT 38 Alkaline Phosphatase 279 H Microbiology Data (last 24 hrs): 11/09/22 03:55 Nasopharnyx Influenza Type A Antigen Screen - Final 11/09/22 03:55 Nasopharnyx Influenza Type B Antigen Screen - Final Assessment and Plan - Plan Acute hypoxic respiratory distress -Fluid overloaded likely d/t HF exacerbation -3 LNC, not on home oxygen -ABG unremarkable acute on chronic combined systolic/diastolic heart failure exacerbation -BNP 1520, Na 129 -Strict I and O -Lasix 40 IV BID -restart home medication -consulted Dr. Mo Hyperosmolar hyperglycemic in patient with type 2 diabetes Anasarca -Accucheck ACHS -restart levemir and novolog 70/30 -will adjust insulin regimen PRN -hypoglycemic protocol CKD stage 3 -GFR 35 -BUN/Creatinine 58/2.18 -avoid nephrotoxic medications -patient not on dialysis -myers in place -Consulted Dr Josefina Hanley -pre recommendation will stop sotalol and amio -rate control with metoprolol -consulted Dr. Mo -telemetry Thrombocytopenia -Platelets 98k -monitor in AM labs hypothyroidism -continue home synthroid paraplegic Spinal stroke (2013) -decubitus prevention -supportive care -pain management PRN Bilateral LE wounds -wound vac to left leg -Dr Dupree managing, will consult DVT ppx: on eliquis no concentrated sweet full code - Advance Directives Does patient have a Living Will: No Does patient have a Durable POA for Healthcare: No
[2022-11-09] MEDS ORDERED: GLUCAGON 1 MG/VIAL IM PRN (09:45)
[2022-11-09] MEDS ORDERED: D50W 25 GM/50 ML SYRINGE IV PRN (09:45)
[2022-11-09] MEDS ORDERED: ALBUTEROL 2.5 MG/3 ML NEB SOL NEB PRN (09:55)
[2022-11-09] MEDS ORDERED: D10W 125 ML IV PRN (09:55)
[2022-11-09] MEDS ORDERED: FUROSEMIDE 40 MG/4 ML VIAL IV SCH (10:00)
--- NOTE | 2022-11-09 11:29 | P.CNS ---
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 On exam he has BLE edema with wound vac to left lower leg and jamey bandage to right lower leg. Has myers in place, PICC line to right upper extremity for rocephin IV six week course. Referred to Nephrology for CROW. SCr 2.2 on adm. Urine chem non prerenal. He has subnephrotic proteinuria 3.1g. Allergies metformin Adverse Reaction (Severe, Verified 08/17/22 02:22) kidney damage ibuprofen Adverse Reaction (Verified 08/17/22 02:22) seecom stitches Adverse Reaction (Mild, Uncoded 02/06/20 12:27) Rash Home Medications: Insulin Detemir [Levemir Flextouch] 40 units SQ BID 01/15/21 Levothyroxine Sodium [Euthyrox] 1 tab PO DAILY 01/15/21 Allopurinol 100 mg PO DAILY 09/24/21 Insulin Aspart Prot/Insuln Asp [Novolog Mix 70-30 Flexpen] 30 unit SQ TID 11/22/21 Albuterol Inhaler [Ventolin Inhaler*] 2 puff IH Q4H PRN 08/17/22 Finerenone [Kerendia] 10 mg PO DAILY 08/17/22 Furosemide [Lasix*] 20 mg PO BID 08/17/22 oxyBUTYnin chloride [Oxybutynin Chloride] 5 mg PO DAILY 08/17/22 Amlodipine [Norvasc*] 10 mg PO DAILY #30 tab 10/20/22 Apixaban [Eliquis] 5 mg PO BID #60 tab 10/20/22 Ceftriaxone [Rocephin*] 1,000 mg IV Q12H 11/09/22 Fluticasone [Flonase 50MCG Nasal [place]*] 50 mcg MARCOS DAILY 11/09/22 Sotalol HCl [Sotalol] 80 mg pe PO BID 11/09/22 - Past Medical/Surgical History Diabetic: Yes -: Diabetes mellitus type 2 -: HTN -: Gout -: Hyperlipidemia -: Hypothyroidism -: 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 fib on chronic anticoagulation -: Crohn's Disease (non active) -: spinal surgery -: 2 hydroceles -: Fistula repair -: Incomplete spinal stroke -: right hand Psychosocial/ Personal History: Patient is disabled, lives at home with his . - Family History Mother Medical History: Hypertension, Diabetes, Stroke Notes: with gangrene leg - Social History Smoking Status: Unknown if ever smoked Alcohol use: No CD- Drugs: No Caffeine use: Yes Review of Systems General: Weakness Eyes: Unremarkable ENT: Unremarkable Respiratory: Shortness of Breath Cardiovascular: Unremarkable Gastrointestinal: Unremarkable Genitourinary: Retention Musculoskeletal: Pedal edema Integumentary: Unremarkable Neurological: Unremarkable Lymphatics: Unremarkable Physical Examination Temp Pulse Resp BP Pulse Ox 100 11/09/22 10:10 General: Other (Chronically ill appearing) HEENT: Atraumatic, Normocephalic Neck: Supple, JVD not distended Respiratory: Other (Symmetric chest expansion) Cardiovascular: No rubs, No murmurs Gastrointestinal: Normal bowel sounds, No guarding Musculoskeletal: No clubbing Integumentary: No warmth Neurological: Normal speech Urinary: Myers catheter External genitalia: Deferred Rectal: Deferred Laboratory Data (last 24 hrs) 11/09/22 11/09/22 11/09/22 03:52 03:52 03:52 WBC 4.40 Hgb 8.7 L Hct 27.1 L Plt Count 98 L PT 14.6 H INR 1.33 Sodium 129 L Potassium 4.6 BUN 58 H Creatinine 2.18 H Glucose 590 H* Magnesium 1.9 Total Bilirubin 0.3 AST 35 ALT 38 Alkaline Phosphatase 279 H Conclusions/Impression: # CROW likely 2/2 prerenal state/ATN SCr 2.2 on adm Urine chem non prerenal Has subnephrotic proteinuria 3.1g KUB unremarkable on CT F/u urinalysis, iPTH, CPK [place] po fluid intake 2L/d # 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 syndrome Baseline serum creatiinine 1.1-1.4 GFR 60-70 as of March 2022 Monitor renal panel # Acute respi failure 2/2 CHF exacerbation Hx of chronic diastolic HF BNP elevated Cont lasix IV bid [place] po fluid intake O2 support prn # Hx of 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 Dupree
[2022-11-09] MEDS ORDERED: FUROSEMIDE 40 MG/4 ML VIAL ONE ×2 (11:39→18:03)
[2022-11-09] MEDS ORDERED: APIXABAN 5 MG TABLET ONE (11:39)
[2022-11-09] MEDS: FUROSEMIDE 40 MG/4 ML VIAL IV SCH ×2 (11:40→18:00)
[2022-11-09] MEDS: APIXABAN 5 MG TABLET PO SCH ×2 (11:50→22:33)
[2022-11-09] MEDS: INSULIN 70/30 100 UNITS/ML SQ SCH ×4 (12:45→20:35)
[2022-11-09] MEDS: INSULIN GLARGINE 100 UNIT/ML SQ SCH ×2 (12:45→20:35)
[2022-11-09] MEDS ORDERED: INSULIN 70/30 100 UNITS/ML SQ ONE ×2 (12:50→19:12)
[2022-11-09] MEDS ORDERED: INSULIN GLARGINE 100 UNIT/ML SQ ONE (12:52)
[2022-11-09 14:10] LABS: UR PROTEIN 174.3 mg/dL (<11.9); Urine Protein/Creatinine Ratio 3.06 ratio (<0.15)
--- NOTE | 2022-11-09 17:09 | RAD REPORT ---
EXAM DESCRIPTION: RAD - Chest Single View - 11/09/2022 4:32 am CLINICAL HISTORY: 57 years Male, Cough;Congestion COMPARISON: 10/24/2022 and 10/10/2022 TECHNIQUE: Single portable x-ray view of the chest performed on 11/09/2022 at 4:20 AM FINDINGS: The lungs are hypoinflated and are grossly clear. There is no evidence of a pneumothorax. The cardiac silhouette is stable and is mildly prominent The mediastinal contours are normal. No acute osseous abnormality is identified. No acute soft tissue abnormalities are seen. Lines and tubes: The right upper extremity PICC line catheter tip terminates in the region of the c avoatrial junction. Free air: None IMPRESSION: 1. Hypoinflation of the lungs. 2. No definite acute intrathoracic disease. 3. Stable right upper extremity PICC line catheter. Electronically signed by: Yvonne Florez DO 11/09/2022 7:18 AM CDT Due to temporary technical issues with the PACS/Fluency reporting system, reports are being signed by the in house radiologists without review as a courtesy to insure prompt reporting. The interpreting radiologist is fully responsible for the content of the report.
[2022-11-09] MEDS ORDERED: METOPROLOL TAR 25 MG TAB PO SCH ×2 (18:00→18:30)
[2022-11-09] MEDS ORDERED: METOPROLOL TAR 25 MG TAB ONE ×2 (18:03→19:13)
[2022-11-09] MEDS: METOPROLOL TARTRATE 5 MG/5 ML INJ IV PRN ×2 (19:05→23:17)
[2022-11-09] MEDS ORDERED: METOPROLOL TARTRATE 5 MG/5 ML INJ IV ONE (19:14)
--- NOTE | 2022-11-09 19:34 | CON ---
Date of Consultation: 11/09/2022 Reason For Consultation: Heart failure. History Of Present Illness: A 57-year-old male, history of diastolic heart failure, atrial fibrillat ion, diabetes, hypertension, hypothyroidism, he is paraplegic, dyslipidemia, presented with shortness of breath, significant edema all the way to his waist. He has generalized anasarca, was found to be in acute hypoxic respiratory failure. After diuresis, the patient is breathing better. No distress at the present time. Denies having any chest pain. Past Medical History: As outlined above in the HPI. Medications: Refer to reconciliation sheet for detailed list. Allergies: METFORMIN AND IBUPROFEN. Family History: No premature coronary artery disease or cancer. Social History: He does not smoke or drink or use any drugs. Review of Systems: All systems reviewed and they were negative except what mentioned in HPI. Physical Examination: Vital Signs: Reviewed. Temperature is 98.8, heart rate is 138, breathing at 18, blood pressure 132/ 95, saturating 97%. General: Pleasant middle-aged male, in no apparent distress. Head and Neck: Pupils are equal, reactive to light. Intact eye movements. No JVD. No cervical lym phadenopathy. Neck is supple. Thyroid is not enlarged. Lungs: Crackles bilaterally. No accessory muscle use or muscle retraction. Heart: Irregularly irregular and tachycardic. Abdomen: Soft, nontender. Bowel sounds positive. No organomegaly. No masses or hernia. No rigidi ty or rebound. Extremities: Has 4+ edema bilaterally. No clubbing or cyanosis. Intact pulses. Skin: No rash. Neurologic: Alert, awake. No acute focal deficits appreciated. Lymph Nodes: No cervical or axillary lymphadenopathy. Investigations: His creatinine is 2.18 and BUN is 58 and troponin is negative. NT-proBNP is 1520. Chest x-ray showed hypoinflated lungs. The patient had CT scan of chest, abdomen, and pelvis as well , no acute findings. Assessment And Recommendations: 1.Acute hypoxic respiratory failure due to significant case of fluid retention. Recommend higher do se of Lasix 60 mg IV q.8 hours. The patient needs aggressive diuresis. Severely fluid overloaded, a nd strict low-salt diet. 2.Acute on chronic renal failure in part due to the significant fluid retention and elevated central venous pressure. Increase Lasix as above and monitor BUN and creatinine. 3.Atrial fibrillation, rate is not controlled and he is on Eliquis. Continue Eliquis for now. Incr ease metoprolol and discontinue amlodipine to allow for a further diuresis and adjustment of heart ra te-controlling medicine. Amlodipine does not have any effect on the heart rate. SR/MODL Voice ID: [id number] Report ID: [id number]
[2022-11-10] MEDS ORDERED: METOPROLOL TARTRATE 5 MG/5 ML INJ IV STA (04:09)
[2022-11-10] MEDS ORDERED: AMIODARONE HCL 150 MG in D5W 100 ML IV STA ×2 (04:21→10:46)
[2022-11-10] MEDS: FUROSEMIDE 40 MG/4 ML VIAL IV SCH ×2 (05:00→16:52)
[2022-11-10] MEDS ORDERED: AMIODARONE HCL 900 MG in Dextrose 5%-Water 482 ML IV SCH (05:00)
[2022-11-10] MEDS: METOPROLOL TARTRATE 5 MG/5 ML INJ IV PRN (05:32)
[2022-11-10 05:56] LABS: Absolute Lymphocytes (CBC) 0.5 K/uL (0.7-4.9); Hematocrit 26.4 % (39.6-49.0); Lymphocytes % 15.4 % (15.3-44.8); MCV 85.9 fL (80-100); MPV 10.2 fL (7.6-11.3); Platelets 93 thou/uL (152-406); RBC Red Blood Cell Count 3.08 M/uL (4.33-5.43)
[2022-11-10 06:06] LABS: Albumin 2.6 g/dL (3.4-5.0); Phosphorus 3.6 mg/dL (2.5-4.9); Potassium 4.2 mEq/L (3.5-5.1)
[2022-11-10] MEDS: LEVOTHYROXINE SOD 0.075 MG TAB PO SCH (06:30)
--- NOTE | 2022-11-10 07:19 | P.PN ---
Date of Service: 11/10/22 Subjective: a-fib with HR in 120-150s seen on tele despite 3 lopressor 5mg IV pushes otherwise no new / worsening problems feels swelling is a little better compared to last hospitalization Transfer to ICU, will likely need amio ROS: 10 point ROS as noted above, otherwise negative Physical Exam: GEN: Alert, oriented, NAD HEENT: Normal conjunctiva, sclera anicteric CV: Irregularly Irregular rate and rhythm, 3+ Pitting edema b/l Pulm: mildly-labored respirations on room air, diminished at bases b/l, +crackles ABD: Soft, nontender, nondistended Neuro: Normal speech, normal affect [place] in place vitals reviewed Problem List: Acute hypoxic respiratory failure likely d/t CHF exacerbation Acute on chronic combined systolic/diastolic CHF Exacerbation Atrial fibrillation on chronic anticoagulation therapy Anasarca IDDM2 Iron Deficiency Anemia CKD 3 Hypertension Hypothyroidism Gout H/O spinal stroke with paraplegia Chronic lower extremity wounds Acute hypoxic respiratory failure likely d/t CHF exacerbation acute on chronic combined systolic/diastolic heart failure exacerbation Atrial fibrillation with RVR on chronic anticoagulation therapy Anasarca Does not wear oxygen at home Monitor on telemetry Cardiology consulted Continue IV Lasix continue metoprolol 50mg BID IV amiodarone Continue eliquis for now Confirm home medications, restart as appropriate currently a-fib with HR in 120-150s IDDM2 Accucheck ACHS restart levemir and novolog 70/30 Adjust as needed CKD 3 Nephrology consulted Continue Lasix Monitor renal function Thrombocytopenia Platelets 98k monitor in AM labs Chronic lower extremity wounds wound vac to left leg sees Dr Dupree as outpatient ID consult Hypertension Hypothyroidism Gout H/O spinal stroke with paraplegia confirm home medications, restart as appropriate Iron Deficiency Anemia. monitor H&H. Transfuse for hgb < 7 VTE: home eliquis Code: Full Dispo: Transfer to ICU 11/10
[2022-11-10] MEDS: OXYBUTYNIN ER 5 MG TAB PO SCH (08:31)
[2022-11-10] MEDS: CEFTRIAXONE 1,000 MG in NA CHLORIDE 0.9% 50 ML IVPB SCH ×2 (08:31→20:49)
[2022-11-10] MEDS: APIXABAN 5 MG TABLET PO SCH ×2 (08:32→20:50)
[2022-11-10] MEDS: METOPROLOL TAR 50 MG TAB PO SCH ×3 (08:32→20:50)
[2022-11-10] MEDS: FLUTICASONE 50MCG NASAL SPRAY NAS SCH (08:32)
[2022-11-10] MEDS: INSULIN GLARGINE 100 UNIT/ML SQ SCH ×2 (08:34→20:50)
[2022-11-10] MEDS: INSULIN 70/30 100 UNITS/ML SQ SCH ×3 (08:36→20:50)
[2022-11-10] MEDS ORDERED: CEFTRIAXONE 1,000 MG in NA CHLORIDE 0.9% 50 ML IVPB SCH (09:00)
[2022-11-10] MEDS ORDERED: AMLODIPINE 10 MG TAB PO SCH (10:00)
[2022-11-10] MEDS ORDERED: FUROSEMIDE 40 MG/4 ML VIAL IV ONE (10:46)
[2022-11-10] MEDS: AMIODARONE HCL 900 MG in Dextrose 5%-Water 482 ML IV SCH (11:23)
[2022-11-10] MEDS ORDERED: D10W 250 ML BAG IV PRN (13:30)
[2022-11-10] MEDS ORDERED: GLUCAGON 1 MG/VIAL IM PRN (13:30)
[2022-11-10] MEDS: MEDIHONEY 44 ML TOPICAL TUBE TOP SCH (14:33)
--- NOTE | 2022-11-10 16:46 | PN ---
Date of Progress Note: 11/10/2022 Subjective: Seen by bedside. His heart rate is very high. He is in atrial fibrillation with RVR. He denies any chest pain, but he has significant shortness of breath, lower extremity edema, and orth opnea. Review of Systems: Positive for shortness of breath, orthopnea. No cough. No nausea, vomiting, diarrhea. No abdominal pain. No history of urinary urgency. All other systems reviewed are negative. Physical Examination: Vital Signs: Reviewed. Head and Neck: Pupils are equal, reactive to light. Intact eye movements. Positive JVD to his ears . Very high JVD. Lungs: Crackles in both bases. No accessory muscle use or muscle retraction. Heart: Irregularly irregular. No extra sounds. Abdomen: Soft, nontender. Bowel sounds positive. No organomegaly. No masses or hernia. No rigidi ty or rebound. Extremities: Edema 3+ bilaterally. No clubbing, cyanosis. Intact pulses. Skin: No rash. Neurologic: Alert, awake, and oriented x3. No acute focal deficits appreciated. Investigations: BUN is 69, creatinine 2.24 and hemoglobin is 8.7. Assessment/recommendations: 1.Atrial fibrillation with rapid ventricular response. Start IV amiodarone. Continue p.o. metoprol ol and Eliquis. 2.Acute on chronic diastolic heart failure exacerbation. Continue IV diuresis. However, changed to q.12 hours. Monitor BUN, creatinine, electrolytes. 3.Acute on chronic renal failure. His creatinine should improve with further diuresis, however, it went slightly up. Recommend close monitoring of his BUN, creatinine, and electrolytes while being di uresed. 4.Infected wound, on IV antibiotics. 5.Acute on chronic renal failure. Careful diuresis is recommended. Patient is definitely fluid ove rloaded. Also, change the frequency of the Lasix to twice a day and monitor basic metabolic panel tw ice a day. SR/MODL Voice ID: [id number] Report ID: [id number]
[2022-11-10] MEDS: INSULIN -REGULAR HUMAN 50 UNIT/0.5 ML ML SQ SCH ×2 (16:52→20:51)
--- NOTE | 2022-11-10 18:26 | P.CNS ---
Date of Consult: 11/10/22 Reason for Consult: MRSA wound Chief Complaint: SOB, History of Present Illness: Patient is a 57-year-old male with a past medical history of combined systolic and diastolic congestive heart failure, obesity, diabetes, hypertension, hypothyroidism, hyperlipidemia, paraplegia, CKD III and bilateral lower extremity chronic diabetic wounds with recent diagnosis of osteomyelitis who presented to the ED with complaints of shortness of breath, phlegm, generalized swelling and ortopnea. Patient was found Patient was found to be in acute hypoxic respiratory distress secondary to acute on chronic CHF exacerbation. Of note, patient was recently hospitalized for left lower extremity osteomyelitis for which he was being treated with Cefazolin IV for 6 weeks. Allergies metformin Adverse Reaction (Severe, Verified 08/17/22 02:22) kidney damage ibuprofen Adverse Reaction (Verified 08/17/22 02:22) seecom stitches Adverse Reaction (Mild, Uncoded 02/06/20 12:27) Rash Home Medications: Insulin Detemir [Levemir Flextouch] 40 units SQ BID 01/15/21 Levothyroxine Sodium [Euthyrox] 1 tab PO DAILY 01/15/21 Allopurinol 100 mg PO DAILY 09/24/21 Insulin Aspart Prot/Insuln Asp [Novolog Mix 70-30 Flexpen] 30 unit SQ TID 11/22/21 Albuterol Inhaler [Ventolin Inhaler*] 2 puff IH Q4H PRN 08/17/22 Finerenone [Kerendia] 10 mg PO DAILY 08/17/22 Furosemide [Lasix*] 20 mg PO BID 08/17/22 oxyBUTYnin chloride [Oxybutynin Chloride] 5 mg PO DAILY 08/17/22 Amlodipine [Norvasc*] 10 mg PO DAILY #30 tab 10/20/22 Apixaban [Eliquis] 5 mg PO BID #60 tab 10/20/22 Ceftriaxone [Rocephin*] 1,000 mg IV Q12H 11/09/22 Fluticasone [Flonase 50MCG Nasal [place]*] 50 mcg MARCOS DAILY 11/09/22 Sotalol HCl [Sotalol] 80 mg pe PO BID 11/09/22 - Past Medical/Surgical History Diabetic: Yes -: Diabetes mellitus type 2 -: HTN -: Gout -: Hyperlipidemia -: Hypothyroidism -: 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 fib on chronic anticoagulation -: Crohn's Disease (non active) -: spinal surgery -: 2 hydroceles -: Fistula repair -: Incomplete spinal stroke -: right hand Psychosocial/ Personal History: Patient is disabled, lives at home with his . - Family History Mother Medical History: Hypertension, Diabetes, Stroke Notes: with gangrene leg - Social History Smoking Status: Unknown if ever smoked Alcohol use: No CD- Drugs: No Caffeine use: Yes Review of Systems 10-point ROS is otherwise unremarkable General: Other (swelling) Genitourinary: Other (chronic myers catheter) Musculoskeletal: Other (paraplegic) Integumentary: As per HPI Physical Examination Temp Pulse Resp BP Pulse Ox 98.2 F 135 H 21 H 127/85 95 11/10/22 16:00 11/10/22 17:00 11/10/22 17:00 11/10/22 17:00 11/10/22 17:00 General: Alert, In no apparent distress, Oriented x3 HEENT: Atraumatic, Normocephalic Neck: Supple, JVD not distended Respiratory: Normal air movement (on room air), Diminished (at bases) Cardiovascular: Edema (BLE edema), Irregular heart rate/rhythm Gastrointestinal: Normal bowel sounds, Soft and benign Integumentary: Other (Left lateral ankle chronic wound. Right lateral ankle wound. Heel DTI.) Neurological: Normal speech, Normal tone, Normal affect, Other (paraplegia) Urinary: Myers catheter (chronic) Laboratory Data - Reviewed Microbiology Data - Reviewed Imagings Data: - Reviewed Conclusions/Impression: Problem List Acute hypoxic respiratory failure secondary to CHF exacerbation Anasarca Osteomyelitis LLE Diabetes Mellitus type II CKD III Atrial Fibrillation Hypertension Hypothyroidism Hyperlipidemia Chronic Diastolic Congestive Heart Failure Paraplegia Gout Anemia Osteomyelitis of Left Lower Extremity - Left distal fibula bone, biopsy 10/07: "Consistent with acute osteomyelitis, recommend clinical and radiographic correlation" - - Patient has been receiving IV antibioitcs since 10/10 for MSSA osteomyelitis. He was recently treated for CAUTI (POA) with Rocephin from 10/10 to 10/20 which was then switched to Cefazolin IV to complete remainder of 6 weeks IV antibiotics for osteomyelitis on 10/20. - Patient has been seeing podiatry Dr. Dupree as outpatient for foot wound management/wound care. - Left Lower Leg wound culture 10/06: Staphylococcus aureus (MSSA) Blood cultures 11/09: Pending No leukocytosis. Afebrile. Recommendations - Osteomyelitis LLE: Currently on Rocephin -> switch to Cefazolin to complete remainder of antibiotic therapy for osteomyelitis as per plan of care initiated during 10/06 hospitalization. - Renally dose medications. Nephrology on case. - Continue wound care orders per Dr. Dupree as received outpatient - Pressure offloading measures - Strict blood glucose control. Case discussed with [place] Bobby
--- NOTE | 2022-11-10 22:16 | PN ---
Date of Progress Note: 11/10/2022 Chief Complaint: Chronic kidney disease stage 2, advancing to 3A. Subjective: Patient developed acute on chronic kidney injury in setting of cardiac arrhythmia. The patient has diabetes nephropathy, cardiorenal syndrome. Baseline creatinine level was 1.1 to 1.4, GF R from 60 to 70 as of March 2022. 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 He has significant history of coronary artery disease, chronic diastolic congestive heart failure. He presented to the hospital with shortness of breath. He was found to h ave bilateral lower extremity edema. He has wound VAC to the left lower leg and dressing to the righ t lower leg. Review of Systems: Patient denies chest pain, palpitation. Physical Examination: Lungs: Diminished breath sounds at bases. Heart: S1, S2. Tachycardia. Abdomen: Soft, benign. Extremities: Edema in both legs. Impression And Plan: 1.Acute kidney injury secondary to prerenal state. 2.Acute tubular necrosis. Serum creatinine level on admission was 2.2. Renal function is plateauin g. The patient has subnephrotic range proteinuria up to 3.1 g, likely secondary to diabetes mellitus . Continue to monitor urinalysis to check for active urinary sediment. Re-evaluate CPK level to rul e out rhabdomyolysis. The patient will continue p.o. fluid intake. 3.Chronic kidney disease stage 2/3A, secondary to diabetes mellitus with diabetic nephropathy cardio renal syndrome, and significant proteinuria. 4.Acute respiratory failure and congestive heart failure exacerbation. 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 Continue IV Lasix. Monitor BNP. 6.Chronic atrial fibrillation per Cardiology. EB/MODL Voice ID: [id number] Report ID: [id number]
[2022-11-11 02:16] LABS: Specific Gravity 1.011 (1.005-1.030); Urine Bacteria <20 /HPF (<20); Urine Bilirubin NEGATIVE (Negative); Urine Blood Trace (Negative); Urine Clarity Turbid (Clear); Urine Color Light-Yellow (Yellow); Urine Glucose 1+ (Negative); Urine Protein 2+ (Negative); Urine RBC None Seen /HPF (None Seen); Urine Urobilinogen Normal (Normal)
[2022-11-11 05:57] LABS: Absolute Lymphocytes (CBC) 0.6 K/uL (0.7-4.9); Hematocrit 26.8 % (39.6-49.0); Lymphocytes % 16.2 % (15.3-44.8); MCV 84.3 fL (80-100); MPV 10.3 fL (7.6-11.3); Platelets 102 thou/uL (152-406); RBC Red Blood Cell Count 3.19 M/uL (4.33-5.43)
[2022-11-11 06:08] LABS: Albumin 2.5 g/dL (3.4-5.0)
[2022-11-11] MEDS: LEVOTHYROXINE SOD 0.075 MG TAB PO SCH (06:52)
[2022-11-11] MEDS: INSULIN -REGULAR HUMAN 50 UNIT/0.5 ML ML SQ SCH ×4 (07:30→20:54)
[2022-11-11] MEDS: METOPROLOL TAR 50 MG TAB PO SCH ×2 (07:52→20:52)
[2022-11-11] MEDS: FUROSEMIDE 40 MG/4 ML VIAL IV SCH ×2 (07:52→16:18)
[2022-11-11] MEDS: FLUTICASONE 50MCG NASAL SPRAY NAS SCH (07:52)
[2022-11-11] MEDS: APIXABAN 5 MG TABLET PO SCH (07:53)
[2022-11-11] MEDS: OXYBUTYNIN ER 5 MG TAB PO SCH (07:53)
[2022-11-11] MEDS: CEFTRIAXONE 1,000 MG in NA CHLORIDE 0.9% 50 ML IVPB SCH ×2 (07:54→20:53)
[2022-11-11] MEDS: INSULIN 70/30 100 UNITS/ML SQ SCH ×3 (07:54→20:53)
[2022-11-11] MEDS: MEDIHONEY 44 ML TOPICAL TUBE TOP SCH (07:54)
[2022-11-11] MEDS: INSULIN GLARGINE 100 UNIT/ML SQ SCH ×2 (07:54→20:54)
[2022-11-11] MEDS: AMIODARONE HCL 900 MG in Dextrose 5%-Water 482 ML IV SCH (08:52)
--- NOTE | 2022-11-11 09:07 | P.PN ---
Date of Service: 11/11/22 Chief Complaint: SOB Subjective: Patient seen and examined at bedside. + hiccups +mild throat pain No worsening complaints at this time. at bedside. Physical Examination Temp Pulse Resp BP Pulse Ox 97.8 F 95 H 16 138/65 98 11/11/22 00:00 11/11/22 07:52 11/11/22 06:00 11/11/22 07:52 11/11/22 06:00 General: Alert, In no apparent distress, Oriented x3 HEENT: Atraumatic, Normocephalic Neck: Supple, JVD not distended Respiratory: Normal air movement, on room air. Diminished at bases Cardiovascular: BLE edema. Irregular heart rate/rhythm Gastrointestinal: Normal bowel sounds, Soft and benign Integumentary: Left lateral ankle wound, chronic. Right lateral ankle wound. Heel DTI. Neurological: Normal speech, Normal tone, Normal affect. Paraplegia Urinary: Valera catheter (chronic) Laboratory Data: Reviewed Microbiology Data: Reviewed Imaging Data: Reviewed Medications list: Reviewed Assessment and plan Problem List Acute hypoxic respiratory failure secondary to CHF exacerbation Anasarca Osteomyelitis LLE Diabetes Mellitus type II CKD III Atrial Fibrillation Hypertension Hypothyroidism Hyperlipidemia Chronic Diastolic Congestive Heart Failure Paraplegia Gout Anemia Osteomyelitis of Left Lower Extremity - Left distal fibula bone, biopsy 10/07: "Consistent with acute osteomyelitis, recommend clinical and radiographic correlation" - Left Lower Leg wound culture 10/06: Staphylococcus aureus (MSSA) - Patient has been receiving IV antibiotics as outpatient since 10/10 for MSSA osteomyelitis. - He was recently treated for CAUTI (POA) with Rocephin from 10/10 to 10/20 which was then switched to Cefazolin IV to complete remainder of 6 weeks IV antibiotics for osteomyelitis on 10/20. - Patient has been seeing podiatry Dr. Dupree as outpatient for foot wound management/wound care. Blood cultures 11/09: No growth to date No leukocytosis. Afebrile. Recommendations - Osteomyelitis LLE: Currently on Rocephin x 6 weeks (10/10 to 11/21) - Continue wound care orders per Dr. Dupree as received outpatient - Renally dose medications. Nephrology on case. - Pressure offloading measures. Turn patient Q2H. Offload pressure on heels. - Strict blood glucose control. Case discussed with [place] Bobby
[2022-11-11] MEDS ORDERED: FUROSEMIDE 40 MG/4 ML VIAL IV ONE (11:24)
--- NOTE | 2022-11-11 12:12 | PN ---
Date of Progress Note: 11/11/2022 Subjective: The patient was admitted with AFib with RVR, CHF exacerbation with acute kidney injury, over volume. The patient was started on diuresis. Kidney function stabilized back, close to his baseline. The patient still has significant edema, but the patient on room air. Physical Examination: Vital Signs: When I saw the patient; blood pressure 138/65, pulse of 140 and irregular. Chest: Crackles bilateral base. Heart: S1, S2. Systolic murmur. Irregular, tachycardic. Abdomen: Soft, nontender. Suprapubic catheter. Extremities: Dressing on both legs. Neurologic: Alert. No focality. Laboratory Data: Hemoglobin of 9. Sodium 135, potassium 4, bicarb 27, BUN 65, creatinine 1.9, GFR of 40, calcium 8.4, phosphorus 3, albumin 2.5, corrected calcium is 9.6. Chest x-ray, cardiomegaly with congestion. Current Medications: The patient on include ceftriaxone 1 g b.i.d., albuterol, Eliquis 5 mg b.i.d., amiodarone drip, metoprolol 50 b.i.d., Lasix 40 b.i.d. The patient received extra dose of Lasix yesterday, levothyroxine, insulin, oxybutynin. Assessment And Plan: 1. Acute kidney injury secondary to cardiorenal, over volume. The patient responding very well to current diuresis dose. The patient had negative balance of 1500. The patient on room air currently. I am going to continue diuresing the patient. I will give him extra dose of Lasix today. We will continue to monitor the patient. 2. Hypertension. Keep utilizing blood pressure for more diuresis and rate control. Continue metoprolol. 3. Atrial fibrillation with rapid ventricular response. Continue amiodarone. Follow up with Cardiology. 4. Hyponatremia secondary to cardiorenal. We will continue to optimize fluid status for the patient with diuresis. 5. Charcot joint with foot infection, osteomyelitis. Continue current antibiotic. Follow up with primary. 6. Secondary hyperparathyroidism. Calcium and phosphorus on the goal. I do not see the need for any supplement. Time spent examining the patient [id number], reviewing data, lab and radiology, placing order, discussing the case with the patient, discussing the case with the produce team member including the hospitalist and nursing staff more than 35 minutes. ANDREA Voice ID: [id number] Report ID: [id number] AUSTYN
[2022-11-11] MEDS ORDERED: METOPROLOL TAR 50 MG TAB PO ONE (16:04)
[2022-11-11] MEDS: METOPROLOL TARTRATE 5 MG/5 ML INJ IV PRN (16:18)
--- NOTE | 2022-11-11 16:52 | EKG ---
Test Date: 2022-11-09 Test Time: 16:06:43 Teletype Operator: ESTRELLA MEASUREMENT RESULTS: Intervals: Rate: 131 ND: QRSD: 110 QT: 344 QTc: 507 [place]: P: ND: QRS: 122 T: -8 INTERPRETIVE STATEMENTS: Atrial fibrillation with rapid ventricular response Low voltage QRS Right bundle branch block Abnormal ECG Compared to ECG 11/09/2022 03:43:44 Low QRS voltage now present Right bundle-branch block now present Sinus rhythm no longer present Right-axis deviation no longer present Incomplete right bundle-branch block no longer present Electronically Signed On 11-11-22 16:45:41 CDT by Kofi Mo
--- NOTE | 2022-11-11 16:54 | EKG ---
Test Date: 2022-11-09 Test Time: 03:43:44 Electromechanical Equipment Tester: DEVEN MEASUREMENT RESULTS: Intervals: Rate: 70 MA: 132 QRSD: 106 QT: 420 QTc: [address]: P: 53 MA: 132 QRS: 118 T: 8 INTERPRETIVE STATEMENTS: Normal sinus rhythm Right axis deviation Incomplete right bundle branch block Possible Right ventricular hypertrophy Abnormal ECG Compared to ECG 10/24/2022 19:07:25 Right-axis deviation now present ST (T wave) deviation no longer present Electronically Signed On 11-11-22 16:46:18 CDT by Kofi Mo
--- NOTE | 2022-11-11 17:21 | P.PN ---
Subjective Date of Service: 11/11/22 Chief Complaint: SOB, Patient reports no change in lower extremity edema. Heart rate remains in the 110s to 115s and in A-fib. Physical Examination - Vital Signs Temperature: 97.9 F Blood Pressure: 122/75 Pulse: 142 Respirations: 23 Pulse Ox (%): 97 Assessment And Plan - Plan Physical Exam: GEN: Alert, oriented, NAD HEENT: Normal conjunctiva, sclera anicteric CV: Irregularly Irregular rate and rhythm, 3+ Pitting edema b/l Pulm: mildly-labored respirations on room air, diminished at bases b/l, +crackles ABD: Soft, nontender, nondistended Neuro: Normal speech, normal affect Valera in place vitals reviewed Problem List: Acute hypoxic respiratory failure likely d/t CHF exacerbation Acute on chronic combined systolic/diastolic CHF Exacerbation Atrial fibrillation on chronic anticoagulation therapy Anasarca IDDM2 Iron Deficiency Anemia CKD 3 Hypertension Hypothyroidism Gout H/O spinal stroke with paraplegia Chronic lower extremity wounds Acute hypoxic respiratory failure secondary to CHF exacerbation acute on chronic combined systolic/diastolic heart failure exacerbation Atrial fibrillation with RVR on chronic anticoagulation therapy Anasarca Patient is currently tolerating room air. Atrial fibrillation appears to be refractory to the amiodarone Continue IV Lasix Cardiology to continue metoprolol 50mg BID Continue eliquis for now IDDM2 Accucheck ACHS restart levemir and novolog 70/30 Adjust as needed CKD 3 Nephrology consulted Continue Lasix Monitor renal function Thrombocytopenia Platelets 98k Monitor CBC Chronic lower extremity wounds wound vac to left leg sees Dr Dupree as outpatient ID consulted Hypertension Hypothyroidism Gout H/O spinal stroke with paraplegia Continue home medications. Anemia. monitor H&H. Transfuse for hgb < 7 VTE: home eliquis Code: Full
--- NOTE | 2022-11-11 18:18 | PN ---
Date of Progress Note: 11/11/2022 Subjective: Seen by bedside. Doing well. He is still in atrial fibrillation, rate is in the 120s. Review of Systems: He does not have any chest pain, shortness of breath, orthopnea, cough. No nausea, vomiting, diarrhe a. All other systems reviewed and they were negative. Physical Examination: Vital Signs: Reviewed. Head and Neck: Pupils are equal, reactive to light. Intact eye movements. No cervical lymphadenopa thy. Neck is supple. Thyroid is not enlarged. Lungs: Clear to auscultation bilaterally. No rhonchi, wheezing, or crackles. No accessory muscle u se. Heart: Irregularly irregular. No extra sounds. Abdomen: Soft, nontender. Bowel sounds positive. No organomegaly. No masses or hernia. No rigidi ty or rebound. Extremities: No clubbing or cyanosis. Trace edema. Neurologic: Alert, awake, oriented x3. No acute focal deficits appreciated. Lymph Nodes: No cervical or axillary lymphadenopathy. Investigations: BUN is 65, creatinine 1.95, and hemoglobin is 9. Assessment And Recommendations: 1.Atrial fibrillation with rapid ventricular response. Continue IV amiodarone drip, increase metopr olol to 100 mg twice a day. Continue Eliquis, however, change the dose to 2.5 mg twice a day due to chronic kidney disease. 2.Acute on chronic diastolic heart failure exacerbation, improved with diuresis. However, on echo e valuation today, his right ventricular systolic pressure is within normal range. To be careful with diuresis as he could go into acute on chronic renal failure. 3.Acute on chronic renal failure due to elevated central venous pressure, improved with diuresis. A t this point, I recommend to switch to oral Lasix given the fact that his right ventricular systolic pressure and IVC appear normal. If this patient appears to be in atrial fibrillation within next 24 hours, we will plan for [facility]AITY-guided cardioversion. SR/MODL Voice ID: [id number] Report ID: [id number]
[2022-11-11] MEDS: APIXABAN 2.5 MG TABLET PO SCH (20:52)
[2022-11-12 05:23] LABS: Absolute Lymphocytes (CBC) 0.7 K/uL (0.7-4.9); Hematocrit 26.7 % (39.6-49.0); Lymphocytes % 16.6 % (15.3-44.8); MCV 83.9 fL (80-100); MPV 10.1 fL (7.6-11.3); Platelets 108 thou/uL (152-406); RBC Red Blood Cell Count 3.18 M/uL (4.33-5.43)
[2022-11-12 05:39] VITALS: BMI 41.4
[2022-11-12 05:39] LABS: Potassium 4.1 mEq/L (3.5-5.1)
[2022-11-12] MEDS: LEVOTHYROXINE SOD 0.075 MG TAB PO SCH (06:52)
--- NOTE | 2022-11-12 07:06 | ECHO ---
HEIGHT: 5 ft 8 in WEIGHT: 272 lb 12.8 oz DATE OF STUDY: 11/11/[address]: Tunde Zheng MD 2-DIMENSIONAL: YES M.MODE: YES DOPPLER: YES COLOR FLOW: YES TDS: PORTABLE: YES DEFINITY: BUBBLE STUDY: DIAGNOSIS: EVALUATE FUNCTION CARDIAC HISTORY: CATHERIZATION: SURGERY: PROSTHETIC VALVE: PACEMAKER: MEASUREMENTS (cm) DIASTOLIC (NORMALS) SYSTOLIC (NORMALS) IVSd 1.3 (0.6-1.2) LA Diam 4.3 (1.9-4.0) LVEF 60% LVIDd 4.6 (3.5-5.7) LVIDs 3.1 (2.0-3.5) %FS 32% LVPWd 1.2 (0.6-1.2) Ao Diam 3.7 (2.0-3.7) 2 DIMENSIONAL ASSESSMENT: RIGHT ATRIUM: NORMAL LEFT ATRIUM: ENLARGED RIGHT VENTRICLE: NORMAL LEFT VENTRICLE: LEFT VENTRICULAR HYPERTROPHY TRICUSPID VALVE: MILD TRICUSPID REGURGITATION MITRAL VALVE: MILD MITRAL REGURGITATION PULMONIC VALVE: NORMAL AORTIC VALVE: MILD AORTIC INSUFFICIENCY PERICARDIAL EFFUSION: NONE AORTIC ROOT: NORMAL LEFT VENTRICULAR WALL MOTION: ATRIAL FIBRILLATION (NORMAL) DOPPLER/COLOR FLOW: SEE BELOW COMMENTS: 1. NORMAL LEFT VENTRICULAR EJECTION FRACTION 55-60% 2. ATRIAL FIBRILLATION 3. MILD TRICUSPID REGURGTATION 4. MILD MITRAL REGURGITATION, AORTIC INSUFFICIENCY 5. LEFT ATRIAL ENLARGEMENT 6. RIGHT VENTRICULAR SYSTOLIC PRESSURE IS NORMAL, LESS THAN 25 mmHg 7. MILD CONCENTRIC LEFT VENTRICULAR HYPERTROPHY TECHNOLOGIST: MANDIE CORDON
[2022-11-12] MEDS: INSULIN -REGULAR HUMAN 50 UNIT/0.5 ML ML SQ SCH ×4 (07:18→21:19)
[2022-11-12] MEDS ORDERED: AMIODARONE HCL 200 MG TAB PO SCH (07:23)
[2022-11-12] MEDS: MEDIHONEY 44 ML TOPICAL TUBE TOP SCH ×2 (07:28→17:26)
[2022-11-12] MEDS: METOPROLOL TAR 50 MG TAB PO SCH ×3 (07:28→21:00)
[2022-11-12] MEDS: AMIODARONE HCL 200 MG TAB PO SCH ×3 (07:55→21:09)
[2022-11-12] MEDS: CEFTRIAXONE 1,000 MG in NA CHLORIDE 0.9% 50 ML IVPB SCH ×2 (07:56→21:15)
[2022-11-12] MEDS: INSULIN 70/30 100 UNITS/ML SQ SCH ×3 (08:07→21:18)
[2022-11-12] MEDS: INSULIN GLARGINE 100 UNIT/ML SQ SCH ×2 (08:07→21:17)
[2022-11-12] MEDS: APIXABAN 2.5 MG TABLET PO SCH ×2 (09:43→21:09)
[2022-11-12] MEDS: OXYBUTYNIN ER 5 MG TAB PO SCH (09:43)
[2022-11-12] MEDS: FLUTICASONE 50MCG NASAL SPRAY NAS SCH (09:44)
--- NOTE | 2022-11-12 10:01 | P.PN ---
Date of Service: 11/12/22 Chief Complaint: SOB Subjective: Improving Patient reports persistent hiccups. Denies any nausea, vomiting, diarrhea or abdominal pain. Denies cough, shortness of breath, chest pain or palpitations. at bedside. Continue current plan of care. Physical Examination Temp Pulse Resp BP Pulse Ox 97.2 F 74 16 108/64 99 11/12/22 04:00 11/12/22 09:44 11/12/22 06:00 11/12/22 09:44 11/12/22 06:00 General: Alert, In no apparent distress, Oriented x3 HEENT: Atraumatic, Normocephalic Neck: Supple, JVD not distended Respiratory: Normal air movement, on room air. Diminished at bases. Cardiovascular: BLE edema. Irregular heart rate/rhythm Gastrointestinal: Normal bowel sounds. Distended. Non-tender. Integumentary: Left lateral ankle wound with wound vac. Right lateral ankle wound. Heel DTI. Neurological: Normal speech, Normal tone, Normal affect. Paraplegia Urinary: chronic Valera catheter draining clear yellow urine. Laboratory Data: Reviewed Microbiology Data: Reviewed Imaging Data: Reviewed Medications list: Reviewed Assessment and plan Problem List Acute hypoxic respiratory failure secondary to CHF exacerbation Anasarca Osteomyelitis LLE Diabetes Mellitus type II CKD III Atrial Fibrillation Hypertension Hypothyroidism Hyperlipidemia Chronic Diastolic Congestive Heart Failure Paraplegia Gout Anemia Osteomyelitis of Left Lower Extremity - Left distal fibula bone, biopsy 10/07: "Consistent with acute osteomyelitis, recommend clinical and radiographic correlation" - Left Lower Leg wound culture 10/06: Staphylococcus aureus (MSSA) - Patient has been receiving IV antibiotic Rocephin as outpatient since 10/10 - Patient has been seeing podiatry Dr. Dupree as outpatient for foot wound management/wound care. Blood cultures 11/09: No growth to date No leukocytosis. Afebrile. CHF, Afib: cardiology following CKD: nephrology following Recommendations - Osteomyelitis LLE: Continue Rocephin x 6 weeks (10/10 to 11/21) - Continue wound care orders as received outpatient MWF - Renally dose medications. Nephrology on case. - Pressure offloading measures. Turn patient Q2H. Offload pressure on heels. - Strict blood glucose control. Case discussed with Dr. Nielsen NTigre
[2022-11-12 10:36] LABS: Absolute Lymphocytes (CBC) 0.8 K/uL (0.7-4.9); Hematocrit 26.8 % (39.6-49.0); Lymphocytes % 16.6 % (15.3-44.8); MCV 84.4 fL (80-100); MPV 9.7 fL (7.6-11.3); Platelets 119 thou/uL (152-406); RBC Red Blood Cell Count 3.17 M/uL (4.33-5.43)
--- NOTE | 2022-11-12 11:25 | PN ---
Date of Progress Note: 11/12/2022 Subjective: Patient was admitted with AFib with RVR, CHF with exacerbation with anasarca. Patient is maintaining good urine output. Physical Examination: Vital Signs: When I saw the patient, blood pressure was 108/64, pulse of 74. Patient had good urine output. Patient had still significant swelling. Patient had urine output of 4800. Chest: Crackles bilateral base. Heart: S1, S2. Regular. Abdomen: Soft. : Nontender scrotal swelling. Extremities: +2 edema, dressing on both feet. Neuro: Alert. No focality. Laboratory Data: Hemoglobin of 9. Sodium 135, potassium 4.1, bicarb 29, BUN 67, creatinine 2.1. GFR 35. Calcium 8.2. Chest x-ray: Cardiomegaly with congestion. Current Medications: 1. Patient was switch to amiodarone oral. 2. Lasix being on hold. 3. Ceftriaxone. 4. Eliquis 2.5 b.i.d. 5. Metoprolol. 6. Levothyroxine. 7. Insulin. 8. Oxybutynin. Assessment And Plan: 1. Acute kidney injury on chronic kidney disease secondary to cardiorenal, overvolume. Lasix has been held by Cardiology. We going to go ahead and get repeated chest x-ray for better evaluation of the fluid status. Then, we will decide about resuming it given the marginal blood pressure. Maybe patient will benefit from Lasix drip to avoid low blood pressure. 2. Congestive heart failure with exacerbation. As by Cardiology, we will try to optimize the fluid status. 3. Atrial fibrillation with rapid ventricular rate as by Cardiology. 4. Hypertension. We will continue to utilize blood pressure for more diuresis. 5. Secondary hyperparathyroidism. No need for vitamin D. 6. Foot infection. Continue current antibiotic. Follow up with primary. Time spent examining the patient [id number], reviewing data, lab and radiology, placing order, discussing the case with the patient, discussing the case with the steam and gas turbines assembler including the hospitalist and nursing staff more than 35 minutes. ANDREA Voice ID: [id number] Report ID: [id number] AUSTYN
--- NOTE | 2022-11-12 12:22 | RAD REPORT ---
EXAM DESCRIPTION: Owen Single View11/12/2022 12:01 pm CLINICAL HISTORY: Shortness of breath COMPARISON: November 09, 2022 FINDINGS: Mild right basilar opacity unchanged Left lung appears clear. The heart is mildly enlarged. PICC line in place IMPRESSION: Mild right basilar opacity unchanged which may represent a small area of infection or in flammation
--- NOTE | 2022-11-12 15:32 | P.PN ---
Subjective Date of Service: 11/12/22 Chief Complaint: SOB, N change in lower extremity edema. Patient heart rate has significantly improved, noted to be in the 50s this morning but remain in A-fib. Physical Examination - Vital Signs Temperature: 97.3 F Blood Pressure: 129/87 Pulse: 114 Respirations: 23 Pulse Ox (%): 97 Assessment And Plan - Plan Physical Exam: GEN: Alert, oriented, NAD HEENT: Normal conjunctiva, sclera anicteric CV: Irregularly Irregular rate and rhythm, 3+ Pitting edema b/l Pulm: mildly-labored respirations on room air, diminished at bases b/l, +crackles ABD: Soft, nontender, nondistended Neuro: Normal speech, normal affect Valera in place vitals reviewed Problem List: Acute hypoxic respiratory failure likely d/t CHF exacerbation Acute on chronic combined systolic/diastolic CHF Exacerbation Atrial fibrillation on chronic anticoagulation therapy Anasarca IDDM2 Iron Deficiency Anemia CKD 3 Hypertension Hypothyroidism Gout H/O spinal stroke with paraplegia Chronic lower extremity wounds Acute hypoxic respiratory failure secondary to CHF exacerbation acute on chronic combined systolic/diastolic heart failure exacerbation Atrial fibrillation with RVR on chronic anticoagulation therapy Anasarca Patient is currently tolerating room air. Atrial fibrillation rate improved. Off amiodarone drip. Currently on oral amiodarone and metoprolol. Continue IV Lasix Cardiology increase metoprolol dose to 100 mg twice daily Continue eliquis for now IDDM2 Accucheck ACHS levemir and novolog 70/30 Adjust as needed CKD 3 Nephrology is following Continue Lasix Monitor renal function Thrombocytopenia Platelets 98k Monitor CBC Chronic lower extremity wounds wound vac to left leg sees Dr Dupree as outpatient ID is following. Hypertension Hypothyroidism Gout H/O spinal stroke with paraplegia Continue home medications. Anemia. monitor H&H. Transfuse for hgb < 7 VTE: home eliquis Code: Full
--- NOTE | 2022-11-12 20:58 | PN ---
Date of Progress Note: 11/12/2022 Subjective: Seen by bedside. Clinically, doing well. Converted to sinus rhythm. Review of Systems: No chest pain, shortness of breath, orthopnea, or cough. No nausea, vomiting, or diarrhea. All othe r systems were reviewed, they were negative. Objective: Vital Signs: Reviewed. Head and Neck: Pupils are equal, reactive to light. Intact eye movements. No JVD. No cervical lym phadenopathy. Neck is supple. Thyroid is not enlarged. Lungs: Clear to auscultation bilaterally. No rhonchi, wheezing, or crackles. No accessory muscle u se. Heart: Regular rate and rhythm. No extra sounds. Abdomen: Soft, nontender. Bowel sounds positive. No organomegaly. No masses or hernia. No rigidi ty or rebound. Extremities: No edema, clubbing, or cyanosis. Intact pulses. Skin: No rash. No nodule. Neurologic: Alert, awake, oriented x3. No acute focal deficits appreciated. Investigations: BUN 67, creatinine 2.14, and hemoglobin is 8.9. Assessment And Recommendations: 1.Atrial fibrillation with rapid ventricular response, converted to sinus rhythm. Switch amiodarone to oral 200 mg twice a day and metoprolol 100 mg twice a day to be continued and Eliquis 2.5 mg twic e a day. 2.Acute on chronic diastolic heart failure exacerbation, diuresed very well. Creatinine is going up . So I discontinued the Lasix. To re-dose tomorrow and to be given oral. 3.Acute on chronic renal failure, likely due to heart failure and monitor diuretics very closely. SR/MODL Voice ID: [id number] Report ID: [id number]
[2022-11-13 04:38] LABS: Absolute Lymphocytes (CBC) 0.7 K/uL (0.7-4.9); Hematocrit 24.3 % (39.6-49.0); Lymphocytes % 17.2 % (15.3-44.8); MCV 84.7 fL (80-100); MPV 10.1 fL (7.6-11.3); Platelets 109 thou/uL (152-406); RBC Red Blood Cell Count 2.87 M/uL (4.33-5.43)
[2022-11-13 04:46] LABS: Potassium 4.1 mEq/L (3.5-5.1)
[2022-11-13] MEDS: LEVOTHYROXINE SOD 0.075 MG TAB PO SCH (06:46)
[2022-11-13] MEDS: INSULIN -REGULAR HUMAN 50 UNIT/0.5 ML ML SQ SCH ×4 (07:30→22:30)
[2022-11-13] MEDS: METOPROLOL TAR 50 MG TAB PO SCH ×2 (09:00→22:29)
[2022-11-13] MEDS: MEDIHONEY 44 ML TOPICAL TUBE TOP SCH (09:00)
[2022-11-13] MEDS: CEFTRIAXONE 1,000 MG in NA CHLORIDE 0.9% 50 ML IVPB SCH (09:00)
--- NOTE | 2022-11-13 09:11 | P.PN ---
Date of Service: 11/13/22 Chief Complaint: SOB Subjective: Improving Patient seen and examined at bedside. Reports temporary tingling/burning sensation of mouth when given dose of Rocephin. No acute events reported overnight. Physical Examination Temp Pulse Resp BP Pulse Ox 98.2 F 57 16 119/82 98 11/12/22 16:00 11/13/22 09:00 11/12/22 19:00 11/13/22 09:00 11/12/22 19:00 General: Alert, In no apparent distress, Oriented x3 HEENT: Atraumatic, Normocephalic Neck: Supple, JVD not distended Respiratory: Normal air movement, on room air. Diminished at bases. Cardiovascular: BLE edema. Irregular heart rate/rhythm Gastrointestinal: Normal bowel sounds. Distended. Non-tender. Integumentary: Left lateral ankle wound with wound vac. Right lateral ankle wound. Heel DTI. Neurological: Normal speech, Normal tone, Normal affect. Paraplegia Urinary: chronic Valera catheter draining clear yellow urine. Laboratory Data: Reviewed Microbiology Data: Reviewed Imaging Data: Reviewed Medications list: Reviewed Assessment and plan Problem List Acute hypoxic respiratory failure secondary to CHF exacerbation Anasarca Osteomyelitis LLE Diabetes Mellitus type II CKD III Atrial Fibrillation Hypertension Hypothyroidism Hyperlipidemia Chronic Diastolic Congestive Heart Failure Paraplegia Gout Anemia of chronic disease Osteomyelitis of Left Lower Extremity - Left distal fibula bone, biopsy 10/07: "Consistent with acute osteomyelitis, recommend clinical and radiographic correlation" - Left Lower Leg wound culture 10/06: Staphylococcus aureus (MSSA) - Rocephin started 10/10 during prior hospitalization at diagnosis of osteomyelitis. Plan for 6 weeks antibiotic therapy to end on 11/21. - Patient has been seeing podiatry Dr. Dupree as outpatient for foot wound management/wound care. Blood cultures 11/09: No growth to date No leukocytosis. Afebrile. CHF, Afib: cardiology following CKD: nephrology following Recommendations - Osteomyelitis LLE: Continue Rocephin x 6 weeks (10/10 to 11/21) - Continue wound care orders as received outpatient MWF - Renally dose medications. - Pressure offloading measures. Turn patient Q2H. Offload pressure on heels. - Strict blood glucose control. - Patient reports he has an appointment with Dr. Dupree scheduled on Friday 11/17. Case discussed with [place] Bobby
[2022-11-13] MEDS: APIXABAN 2.5 MG TABLET PO SCH ×2 (10:43→22:28)
[2022-11-13] MEDS: AMIODARONE HCL 200 MG TAB PO SCH ×2 (10:43→22:31)
[2022-11-13] MEDS: OXYBUTYNIN ER 5 MG TAB PO SCH (10:43)
[2022-11-13] MEDS: FLUTICASONE 50MCG NASAL SPRAY NAS SCH (10:44)
[2022-11-13] MEDS: INSULIN 70/30 100 UNITS/ML SQ SCH ×3 (10:44→22:29)
[2022-11-13] MEDS: INSULIN GLARGINE 100 UNIT/ML SQ SCH ×2 (12:02→22:30)
[2022-11-13] MEDS: Meropenem 1,000 MG in NA CHLORIDE 0.9% 100 ML IV SCH ×2 (14:50→22:26)
[2022-11-13] MEDS: FUROSEMIDE 40 MG TABLET PO SCH (14:50)
[2022-11-13] MEDS ORDERED: VANCOMYCIN 2.75 GM in NA CHLORIDE 0.9% 500 ML IVPB ONE (15:00)
[2022-11-13 16:40] LABS: Albumin, (SPE) 2.9 g/dL (3.8-4.8); Alpha-1-Globulins 0.5 g/dL (0.2-0.3); Alpha-2-Globulins 0.9 g/dL (0.5-0.9); Gamma Globulins 0.8 g/dL (0.8-1.7); INTERPRETATION REPORT
--- NOTE | 2022-11-13 17:01 | P.PN ---
Subjective Date of Service: 11/13/22 Chief Complaint: SOB, Bilateral lower extremity edema improved from yesterday. His heart rate remain rate controlled. Patient denies any new complaint. Physical Examination - Vital Signs Temperature: 98.2 F Blood Pressure: 119/82 Pulse: 57 Respirations: 16 Pulse Ox (%): 98 Assessment And Plan - Plan Physical Exam: GEN: Alert, oriented, NAD CV: Irregularly Irregular rate and rhythm, 2+ Pitting edema b/l Pulm: diminished at bases b/l, +crackles bilateral ABD: Soft, nontender, nondistended Neuro: Normal speech, normal affect Valera in place vitals reviewed Problem List: Acute hypoxic respiratory failure likely d/t CHF exacerbation Acute on chronic combined systolic/diastolic CHF Exacerbation Atrial fibrillation on chronic anticoagulation therapy Anasarca IDDM2 Iron Deficiency Anemia CKD 3 Hypertension Hypothyroidism Gout H/O spinal stroke with paraplegia Chronic lower extremity wounds Acute hypoxic respiratory failure secondary to CHF exacerbation acute on chronic combined systolic/diastolic heart failure exacerbation Atrial fibrillation with RVR on chronic anticoagulation therapy Anasarca He has been stable on room air Atrial fibrillation rate improved. Off amiodarone drip. Currently on oral amiodarone and metoprolol. Anasarca is improving. Continue IV Lasix Continue current metoprolol dose -100 mg twice daily Continue eliquis. IDDM2 Accucheck ACHS levemir and novolog 70/30 Adjust as needed CKD 3 Nephrology is following Continue Lasix Monitor renal function Thrombocytopenia Platelet count is improving. Monitor CBC Chronic lower extremity wounds wound vac to left leg. Left leg wound is discharging pus Dr. Dupree consulted to evaluate ID is following. Hypertension Hypothyroidism Gout H/O spinal stroke with paraplegia Continue home medications. Anemia. monitor H&H. Transfuse for hgb < 7 VTE: home eliquis Code: Full
--- NOTE | 2022-11-13 17:04 | PN ---
Date of Progress Note: 11/13/2022 Subjective: The patient was admitted to the hospital with foot infection, CHF exacerbation, acute kidney injury on chronic kidney disease. The patient's diuresis was held yesterday by Cardiology because of the marginal blood pressure. Physical Examination: Vital Signs: Blood pressure 119/82, pulse of 57. The patient had good urine output of 1700, negative of 300. Chest: Decreased entry bilateral base, crackles on the left side. Heart: S1, S2. Systolic murmur. Abdomen: No organomegaly. No guarding. Extremities: +2 edema with dressing on both feet. Neurologic: Alert. No focality. Laboratory Data: Hemoglobin 8. Sodium 135, potassium 4.1, bicarb 29, BUN 62, creatinine 2, GFR of 36, calcium 7.5. Chest x-ray, cardiomegaly with congestion. Current Medications: The patient on ceftriaxone, albuterol, Eliquis, amiodarone, oral metoprolol 100 b.i.d., levothyroxine, insulin, oxybutynin. Assessment And Plan: 1. Acute kidney injury on chronic kidney disease, over volume, secondary to cardiorenal. Heart rate has been controlled. The patient is still on the over volume side. I am going to resume Lasix and we will monitor the patient. 2. Congestive heart failure with exacerbation. We will optimize the fluid status for the patient. 3. Atrial fibrillation, currently rate controlled. 4. Hypertension, currently blood pressure controlled, on the lower side. We will utilize blood pressure for rate control and optimizing fluid status. 5. Secondary hyperparathyroidism. No need for vitamin supplement currently. 6. Hyponatremia, dilutional. Continue diuresis. Time spent examining the patient [id number], reviewing data, lab and radiology, placing order, discussing the case with the patient, discussing the case with the retail team member including the hospitalist and nursing staff more than 35 minutes. ANDREA Voice ID: [id number] Report ID: [id number] AUSTYN
--- NOTE | 2022-11-13 20:19 | P.CNS ---
Date of Consult: 11/13/22 Reason for Consult: wounds bilateral lower extremity Chief Complaint: SOB, History of Present Illness: Wounds bilateral lower extremity with negative pressure wound therapy to the left lower extremity Allergies metformin Adverse Reaction (Severe, Verified 08/17/22 02:22) kidney damage ibuprofen Adverse Reaction (Verified 08/17/22 02:22) seecom stitches Adverse Reaction (Mild, Uncoded 02/06/20 12:27) Rash Home Medications: Insulin Detemir [Levemir Flextouch] 40 units SQ BID 01/15/21 Levothyroxine Sodium [Euthyrox] 1 tab PO DAILY 01/15/21 Allopurinol 100 mg PO DAILY 09/24/21 Insulin Aspart Prot/Insuln Asp [Novolog Mix 70-30 Flexpen] 30 unit SQ TID 11/22/21 Albuterol Inhaler [Ventolin Inhaler*] 2 puff IH Q4H PRN 08/17/22 Finerenone [Kerendia] 10 mg PO DAILY 08/17/22 Furosemide [Lasix*] 20 mg PO BID 08/17/22 oxyBUTYnin chloride [Oxybutynin Chloride] 5 mg PO DAILY 08/17/22 Amlodipine [Norvasc*] 10 mg PO DAILY #30 tab 10/20/22 Apixaban [Eliquis] 5 mg PO BID #60 tab 10/20/22 Ceftriaxone [Rocephin*] 1,000 mg IV Q12H 11/09/22 Fluticasone [Flonase 50MCG Nasal Fl[place]oy*] 50 mcg MARCOS DAILY 11/09/22 Sotalol HCl [Sotalol] 80 mg pe PO BID 11/09/22 - Past Medical/Surgical History Diabetic: Yes -: Diabetes mellitus type 2 -: HTN -: Gout -: Hyperlipidemia -: Hypothyroidism -: 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 fib on chronic anticoagulation -: Crohn's Disease (non active) -: spinal surgery -: 2 hydroceles -: Fistula repair -: Incomplete spinal stroke -: right hand Psychosocial/ Personal History: Patient is disabled, lives at home with his . - Family History Mother Medical History: Hypertension, Diabetes, Stroke Notes: with gangrene leg - Social History Smoking Status: Unknown if ever smoked Alcohol use: No CD- Drugs: No Caffeine use: Yes Review of Systems 10-point ROS is otherwise unremarkable Physical Examination Temp Pulse Resp BP Pulse Ox 98.2 F 57 16 119/82 98 11/13/22 17:00 11/13/22 17:00 11/13/22 17:00 11/13/22 17:00 11/13/22 17:00 General: Alert, In no apparent distress, Oriented x3 Cardiovascular: No edema, Normal pulses Capillary refill: <2 Seconds Musculoskeletal: No clubbing, No swelling, No contractures, No erythema, No tenderness, No warmth Integumentary: Diabetic ulcer (ulceration lateral left leg has wound vac in place with granular base present. Small of purulence at distal aspect of wound before dressing change that appears to have no drainage at this time. Wounds to right leg are improved with decreased dimensions noted) Neurological: Abnormal sensation - Problems (1) Diabetic ulcer of left lower leg Current Visit: No Status: Acute (2) Diabetic ulcer of right ankle Current Visit: No Status: Chronic (3) Diabetic ulcer of right heel Current Visit: No Status: Resolved Conclusions/Impression: Wound VAC dressing to be changed q48h to left lower extremity Medihoney alginate to right lower extremity wounds q48h Will follow Physician Review: Patient Assessed, Agree with Above Assessment and Plan Critical Care: No Time Spent Managing Pts care (In Minutes): 30
[2022-11-13] MEDS ORDERED: VANCOMYCIN 1.5 GM in NA CHLORIDE 0.9% 500 ML IVPB SCH (21:00)
[2022-11-14] MEDS: LEVOTHYROXINE SOD 0.075 MG TAB PO SCH (05:30)
[2022-11-14 05:41] LABS: Absolute Lymphocytes (CBC) 0.7 K/uL (0.7-4.9); Hematocrit 24.5 % (39.6-49.0); Lymphocytes % 16.3 % (15.3-44.8); MCV 85.7 fL (80-100); MPV 9.9 fL (7.6-11.3); Platelets 113 thou/uL (152-406); RBC Red Blood Cell Count 2.86 M/uL (4.33-5.43)
[2022-11-14 05:55] LABS: Potassium 4.3 mEq/L (3.5-5.1)
[2022-11-14] MEDS: INSULIN -REGULAR HUMAN 50 UNIT/0.5 ML ML SQ SCH ×4 (07:30→21:00)
--- NOTE | 2022-11-14 08:10 | P.PN ---
Date of Service: 11/14/22 Chief Complaint: SOB Subjective: Patient seen and examined at bedside. Area of pus noted in left lower extremity wound yesterday 11/13. Wound culture ordered. Patient was started on Merrem and vancomycin No acute events reported overnight. at bedside. Physical Examination Temp Pulse Resp BP Pulse Ox 98.3 F 60 18 119/66 96 11/14/22 00:00 11/14/22 00:00 11/14/22 00:00 11/14/22 00:00 11/14/22 00:00 General: Alert, In no apparent distress, Oriented x3 HEENT: Atraumatic, Normocephalic Neck: Supple, JVD not distended Respiratory: Normal air movement, on room air. Diminished at bases. Cardiovascular: BLE edema. Irregular heart rate/rhythm Gastrointestinal: Normal bowel sounds. Distended. Non-tender. Integumentary: Left lateral ankle wound with wound vac. Right lateral ankle wound. Heel DTI. Neurological: Normal speech, Normal tone, Normal affect. Paraplegia Urinary: chronic Valera catheter draining clear yellow urine. Laboratory Data: Reviewed Microbiology Data: Reviewed Imaging Data: Reviewed Medications list: Reviewed Assessment and plan Problem List Acute hypoxic respiratory failure secondary to CHF exacerbation Anasarca Osteomyelitis LLE Diabetes Mellitus type II CKD III Atrial Fibrillation Hypertension Hypothyroidism Hyperlipidemia Chronic Diastolic Congestive Heart Failure Paraplegia Gout Anemia of chronic disease Osteomyelitis of Left Lower Extremity - Left distal fibula bone, biopsy 10/07: "Consistent with acute osteomyelitis, recommend clinical and radiographic correlation" - Left Lower Leg wound culture 10/06: Staphylococcus aureus (MSSA) - Rocephin started 10/10 during prior hospitalization at diagnosis of osteomyelitis. Plan for 6 weeks antibiotic therapy to end on 11/21. - Patient has been seeing podiatry Dr. Dupree as outpatient for foot wound management/wound care. - On Rocephin 10/10 to 11/13 which was switched to Meropenem and Vancomycin on 11/13 due to findings of pus LLE wound. Culture ordered. - Wound culture LLE 11/13: Pending Blood cultures 11/09: No growth to date No leukocytosis. Afebrile. CHF, Afib: cardiology following CKD: nephrology following Recommendations - Osteomyelitis LLE: Continue antibiotic therapy for 6 weeks (10/10 to 11/21) Area of pus noted in left lower extremity wound yesterday 11/13. Wound culture ordered. Patient was started on Merrem and vancomycin 11/13 - Continue wound care per Dr. Dupree - Renally dose medications. - Strict blood glucose control. - Pressure offloading measures. Turn patient Q2H. Offload pressure on heels. Case discussed with [place] Bobby
[2022-11-14] MEDS: METOPROLOL TAR 50 MG TAB PO SCH ×2 (09:00→21:15)
[2022-11-14] MEDS: APIXABAN 2.5 MG TABLET PO SCH ×2 (09:15→21:15)
[2022-11-14] MEDS: OXYBUTYNIN ER 5 MG TAB PO SCH (09:15)
[2022-11-14] MEDS: AMIODARONE HCL 200 MG TAB PO SCH ×2 (09:15→21:15)
[2022-11-14] MEDS: MEDIHONEY 44 ML TOPICAL TUBE TOP SCH (09:16)
[2022-11-14] MEDS: FLUTICASONE 50MCG NASAL SPRAY NAS SCH (09:16)
[2022-11-14] MEDS: FUROSEMIDE 40 MG TABLET PO SCH (09:16)
[2022-11-14] MEDS: Meropenem 1,000 MG in NA CHLORIDE 0.9% 100 ML IV SCH ×2 (09:16→21:15)
[2022-11-14] MEDS: INSULIN 70/30 100 UNITS/ML SQ SCH ×3 (09:17→21:00)
[2022-11-14] MEDS: INSULIN GLARGINE 100 UNIT/ML SQ SCH ×2 (09:17→21:16)
[2022-11-14] MEDS: VANCOMYCIN 1 GM in NA CHLORIDE 0.9% 250 ML IVPB SCH (15:29)
--- NOTE | 2022-11-14 15:39 | P.PN ---
Subjective Date of Service: 11/14/22 Chief Complaint: SOB, Subjective: No new changes Physical Examination - Vital Signs Temperature: 97.2 F Blood Pressure: 117/68 Pulse: 58 Respirations: 16 Pulse Ox (%): 98 - Physical Exam General: Other (chronically ill-appearing) HEENT: Atraumatic, Normocephalic Neck: Supple Respiratory: Other (symmetric chest expansion) Cardiovascular: No rubs, No murmurs, Edema Gastrointestinal: Soft and benign, No guarding Musculoskeletal: No clubbing, Swelling Integumentary: No warmth Neurological: Normal tone Urinary: Other (no bladder distention) External genitalia: Deferred Rectal: Deferred - Studies Microbiology Data (last 24 hrs): 11/09/22 05:14 Blood - Blood Aerobic Blood Culture - Final No growth in 5 days. 11/09/22 05:14 Blood - Blood Anaerobic Blood Culture - Final No growth in 5 days. 11/09/22 05:00 Blood - Blood Aerobic Blood Culture - Final No growth in 5 days. 11/09/22 05:00 Blood - Blood Anaerobic Blood Culture - Final No growth in 5 days. 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 syndrome Baseline serum creatiinine 1.1-1.4 GFR 60-70 as of March 2022 Monitor renal panel # Nephrotic-range proteinuria likely 2/2 DM nephropathy SPEP & AKNDACE neg F/u serum KOSTA, random UPEP, SFLC, HBV, HCV, HIV, RPR May consider doing kidney biopsy early next week, though not a great candidate f or immunosuppressive therapy d/t his debilitated state Increase lasix to 40 mg IV bid Low Na diet D repletion as below Start statin prior to hosp dc # Acute respi failure 2/2 CHF exacerbation Hx of chronic diastolic HF TTE on 11/08/2022 showed normal LVEF 55-60%, rest of findings unremarkable BNP elevated Lasix IV bid Low Na diet 2g/d [place] po fluid intake. Do not limit his by mouth fluid intake unless he develops hyponatremia < 130 meq/L. 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 Dupree Physician Review: Patient Assessed, Agree with Above Assessment and Plan
--- NOTE | 2022-11-14 17:03 | EKG ---
Test Date: 2022-11-11 Test Time: 23:02:41 Cardiology Physician Assistant: DANIEL MEASUREMENT RESULTS: Intervals: Rate: 56 UT: QRSD: 106 QT: 448 QTc: 432 [place]: P: UT: QRS: 92 T: 18 INTERPRETIVE STATEMENTS: Sinus rhythm Incomplete right bundle branch block Possible Right ventricular hypertrophy Abnormal ECG Electronically Signed On 11-14-22 16:59:38 CDT by Kofi Mo
--- NOTE | 2022-11-14 17:49 | P.PN ---
Subjective Date of Service: 11/14/22 Chief Complaint: SOB, No change in lower extremity edema compared to yesterday. His heart rate remain rate controlled. Patient denies any new complaint and desires to go home. Physical Examination - Vital Signs Temperature: 98.1 F Blood Pressure: 136/77 Pulse: 68 Respirations: 16 Pulse Ox (%): 97 - Studies Microbiology Data (last 24 hrs): 11/09/22 05:14 Blood - Blood Aerobic Blood Culture - Final No growth in 5 days. 11/09/22 05:14 Blood - Blood Anaerobic Blood Culture - Final No growth in 5 days. 11/09/22 05:00 Blood - Blood Aerobic Blood Culture - Final No growth in 5 days. 11/09/22 05:00 Blood - Blood Anaerobic Blood Culture - Final No growth in 5 days. Assessment And Plan - Plan Physical Exam: GEN: Alert, oriented, NAD CV: Irregularly Irregular rate and rhythm, 2+ Pitting edema b/l Pulm: diminished at bases b/l, +crackles bilateral ABD: Soft, nontender, nondistended Neuro: Normal speech, normal affect Valera in place vitals reviewed Problem List: Acute hypoxic respiratory failure likely d/t CHF exacerbation Acute on chronic combined systolic/diastolic CHF Exacerbation Atrial fibrillation on chronic anticoagulation therapy Anasarca IDDM2 Iron Deficiency Anemia CKD 3 Hypertension Hypothyroidism Gout H/O spinal stroke with paraplegia Chronic lower extremity wounds Proteinuria Acute hypoxic respiratory failure secondary to CHF exacerbation acute on chronic combined systolic/diastolic heart failure exacerbation Atrial fibrillation with RVR on chronic anticoagulation therapy Anasarca He has been stable on room air Atrial fibrillation rate improved. Off amiodarone drip. Currently on oral amiodarone and metoprolol. Anasarca is improving slowly Continue diuresis with IV Lasix Continue current metoprolol dose -100 mg twice daily Continue eliquis. IDDM2 Accucheck ACHS levemir and novolog 70/30 Adjust as needed CKD 3 Associated proteinuria. Nephrology is following Continue Lasix Monitor renal function Thrombocytopenia Platelet count is improving. Monitor CBC Infected lower extremity wounds/osteomyelitis wound vac to left leg. Left leg wound is discharging pus Dr. Dupree planning debridement tomorrow. Patient is on broad-spectrum antibiotics. ID is following. Hypertension Hypothyroidism Gout H/O spinal stroke with paraplegia Continue home medications. Anemia. monitor H&H. Transfuse for hgb < 7 VTE: home eliquis Code: Full
[2022-11-14] MEDS: CODEINE 30MG/APAP 300MG TAB PO PRN (21:14)
[2022-11-15] MEDS: LEVOTHYROXINE SOD 0.075 MG TAB PO SCH (05:19)
[2022-11-15 05:37] LABS: Absolute Lymphocytes (CBC) 0.8 K/uL (0.7-4.9); Hematocrit 24.3 % (39.6-49.0); Lymphocytes % 18.2 % (15.3-44.8); MCV 86.6 fL (80-100); MPV 9.5 fL (7.6-11.3); Platelets 127 thou/uL (152-406); RBC Red Blood Cell Count 2.81 M/uL (4.33-5.43)
[2022-11-15 05:57] LABS: Albumin 2.7 g/dL (3.4-5.0); Phosphorus 2.9 mg/dL (2.5-4.9); Potassium 4.3 mEq/L (3.5-5.1)
[2022-11-15] MEDS: INSULIN -REGULAR HUMAN 50 UNIT/0.5 ML ML SQ SCH ×4 (07:30→20:40)
[2022-11-15] MEDS: METOPROLOL TAR 50 MG TAB PO SCH ×2 (09:00→20:43)
[2022-11-15] MEDS: FLUTICASONE 50MCG NASAL SPRAY NAS SCH (09:32)
[2022-11-15] MEDS: APIXABAN 2.5 MG TABLET PO SCH ×2 (09:32→20:43)
[2022-11-15] MEDS: OXYBUTYNIN ER 5 MG TAB PO SCH (09:32)
[2022-11-15] MEDS: MEDIHONEY 44 ML TOPICAL TUBE TOP SCH (09:32)
[2022-11-15] MEDS: AMIODARONE HCL 200 MG TAB PO SCH ×2 (09:32→20:45)
[2022-11-15] MEDS: Meropenem 1,000 MG in NA CHLORIDE 0.9% 100 ML IV SCH ×2 (09:33→20:39)
[2022-11-15] MEDS: FUROSEMIDE 40 MG/4 ML VIAL IV SCH ×3 (09:33→20:44)
[2022-11-15] MEDS: INSULIN GLARGINE 100 UNIT/ML SQ SCH ×2 (09:33→20:41)
[2022-11-15] MEDS: VITAMIN D 5,000 UNIT CAP PO SCH (09:34)
[2022-11-15] MEDS: INSULIN 70/30 100 UNITS/ML SQ SCH ×3 (09:34→20:40)
--- NOTE | 2022-11-15 11:03 | P.PN ---
Subjective Date of Service: 11/15/22 Chief Complaint: bilateral lower extremity wounds Subjective: Doing well Review of Systems 10-point ROS is otherwise unremarkable Physical Examination - Vital Signs Temperature: 97.7 F Blood Pressure: 132/71 Pulse: 55 Respirations: 16 Pulse Ox (%): 97 - Physical Exam General: Alert, In no apparent distress, Oriented x3 Cardiovascular: Normal pulses Capillary refill: <2 Seconds Musculoskeletal: No clubbing, No swelling, No contractures, No erythema, No tenderness, No warmth Integumentary: Diabetic ulcer (Left lateral leg wound is 100% granular with undermining at distal aspect of wound, small purulence present with a sinus tract distally. Area cleansed and packed with vashe wet to dry gauze. Right lower extremity wounds are stable with no signs of infection) Neurological: Abnormal sensation Assessment And Plan - Current Problems (Diagnosis) (1) Diabetic ulcer of left lower leg Current Visit: No Status: Acute (2) Diabetic ulcer of right ankle Current Visit: No Status: Chronic (3) Diabetic ulcer of right heel Current Visit: No Status: Resolved - Plan 1. Hold wound vac until tomorrow with vashe soaked gauze dressing left lower extremity 2. continue medihoney to right lower extemity wounds q48h Physician Review: Patient Assessed, Agree with Above Assessment and Plan
[2022-11-15] MEDS: VANCOMYCIN 1 GM in NA CHLORIDE 0.9% 250 ML IVPB SCH (15:00)
--- NOTE | 2022-11-15 15:14 | P.PN ---
Subjective Date of Service: 11/15/22 Chief Complaint: bilateral lower extremity wounds No change in lower extremity edema over the last few days. His heart rate remain rate controlled. Patient has no new complain. Physical Examination - Vital Signs Temperature: 97.0 F Blood Pressure: 124/78 Pulse: 61 Respirations: 16 Pulse Ox (%): 97 Assessment And Plan - Plan Physical Exam: GEN: Alert, oriented, NAD CV: Irregularly Irregular rate and rhythm, 2+ Pitting edema b/l Pulm: diminished at bases b/l, +crackles bilateral ABD: Soft, nontender, nondistended Neuro: Normal speech, normal affect Valera in place vitals reviewed Problem List: Acute hypoxic respiratory failure likely d/t CHF exacerbation Acute on chronic combined systolic/diastolic CHF Exacerbation Atrial fibrillation on chronic anticoagulation therapy Anasarca IDDM2 Iron Deficiency Anemia CKD 3 Hypertension Hypothyroidism Gout H/O spinal stroke with paraplegia Chronic lower extremity wounds Proteinuria Acute hypoxic respiratory failure secondary to CHF exacerbation acute on chronic combined systolic/diastolic heart failure exacerbation Atrial fibrillation with RVR on chronic anticoagulation therapy Anasarca He has been stable on room air Atrial fibrillation rate improved. Off amiodarone drip. Currently on oral amiodarone and metoprolol. Anasarca is improving slowly Continue diuresis with IV Lasix. Nephrology is adjusting dose for effective diuresis. Continue current metoprolol dose -100 mg twice daily Continue eliquis. IDDM2 Accucheck ACHS levemir and novolog 70/30 Adjust as needed CKD 3 Associated proteinuria. Nephrology is following Continue Lasix Monitor renal function Thrombocytopenia Platelet count is improving. Monitor CBC Infected lower extremity wounds/osteomyelitis wound vac to left leg. Left leg wound is discharging pus Dr. Dupree seen patient and recommended wound care. Patient is on broad-spectrum antibiotics. ID is following. Hypertension Hypothyroidism Gout H/O spinal stroke with paraplegia Continue home medications. Anemia. monitor H&H. Transfuse for hgb < 7 VTE: home eliquis Code: Full
[2022-11-15] MEDS: VANCOMYCIN 750 MG in NA CHLORIDE 0.9% 150 ML IVPB SCH (16:27)
--- NOTE | 2022-11-15 16:45 | P.PN ---
Subjective Date of Service: 11/15/22 Chief Complaint: bilateral lower extremity wounds Today No overnight events Cr stable will increase lasix and give metolazone Physical exam General: Awake, NAD HEENT: Atraumatic, Normocephalic Neck: Supple, no elevated JVD Respiratory: Rales Cardiovascular: No rubs, No murmurs Gastrointestinal: Soft and benign, Non-distended Musculoskeletal: No clubbing Leg: warpeed, edema # CROW likely 2/2 prerenal state/ATN SCr 2.2 on adm, improved to 1.9, at 2.2 today Urine chem non prerenal Has subnephrotic proteinuria 3.1g KUB unremarkable on CT CPK wnl, no rhabdo [place] po fluid intake 2L/d # 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 syndrome Baseline serum creatiinine 1.1-1.4 GFR 60-70 as of March 2022 Monitor renal panel # Nephrotic-range proteinuria 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 Do not limit his by mouth fluid intake unless he develops hyponatremia < 130 meq/L. 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 Dupree Physical Examination - Vital Signs Temperature: 97.0 F Blood Pressure: 124/78 Pulse: 61 Respirations: 16 Pulse Ox (%): 97 Assessment And Plan Physician Review: Patient Assessed, Agree with Above Assessment and Plan
[2022-11-15] MEDS ORDERED: METOLAZONE 5 MG TABLET PO SCH (17:00)
[2022-11-15 21:58] LABS: Hepatitis B Core Ab, Total Nonreactive (Nonreactive); Hepatitis B Surface Ab - Quant < 3.10 mIU/mL (<8.0); Hepatitis B surface AG Interp. Nonreactive (Nonreactive); Hepatitis C Virus Ab Nonreactive (Nonreactive)
[2022-11-16 04:32] LABS: Absolute Lymphocytes (CBC) 0.9 K/uL (0.7-4.9); Hematocrit 24.3 % (39.6-49.0); Lymphocytes % 17.8 % (15.3-44.8); MPV 9.4 fL (7.6-11.3); Platelets 133 thou/uL (152-406)
[2022-11-16 04:47] LABS: Albumin 2.7 g/dL (3.4-5.0); Phosphorus 3.5 mg/dL (2.5-4.9); Potassium 4.3 mEq/L (3.5-5.1)
[2022-11-16] MEDS: LEVOTHYROXINE SOD 0.075 MG TAB PO SCH (06:25)
[2022-11-16] MEDS: INSULIN -REGULAR HUMAN 50 UNIT/0.5 ML ML SQ SCH ×4 (09:41→21:00)
[2022-11-16] MEDS: INSULIN 70/30 100 UNITS/ML SQ SCH ×3 (09:41→22:06)
[2022-11-16] MEDS: FUROSEMIDE 40 MG/4 ML VIAL IV SCH ×3 (09:42→21:33)
[2022-11-16] MEDS: INSULIN GLARGINE 100 UNIT/ML SQ SCH ×2 (09:42→22:07)
[2022-11-16] MEDS: OXYBUTYNIN ER 5 MG TAB PO SCH (09:43)
[2022-11-16] MEDS: APIXABAN 2.5 MG TABLET PO SCH ×2 (09:43→21:43)
[2022-11-16] MEDS: Meropenem 1,000 MG in NA CHLORIDE 0.9% 100 ML IV SCH ×2 (09:43→21:33)
[2022-11-16] MEDS: AMIODARONE HCL 200 MG TAB PO SCH ×2 (09:43→21:43)
[2022-11-16] MEDS: METOPROLOL TAR 50 MG TAB PO SCH ×2 (09:43→21:44)
[2022-11-16] MEDS: VITAMIN D 5,000 UNIT CAP PO SCH (09:43)
[2022-11-16] MEDS: FLUTICASONE 50MCG NASAL SPRAY NAS SCH (09:55)
[2022-11-16] MEDS: MEDIHONEY 44 ML TOPICAL TUBE TOP SCH (09:59)
[2022-11-16] MEDS: VANCOMYCIN 750 MG in NA CHLORIDE 0.9% 150 ML IVPB SCH (16:10)
--- NOTE | 2022-11-16 16:15 | P.PN ---
Subjective Date of Service: 11/16/22 Chief Complaint: bilateral lower extremity wounds No change in lower extremity edema. Patient has no new complain. 2.4 L urine output with the current diuretics. Physical Examination - Vital Signs Temperature: 97.9 F Blood Pressure: 113/70 Pulse: 53 Respirations: 16 Pulse Ox (%): 97 Assessment And Plan - Plan Physical Exam: GEN: Alert, oriented, NAD CV: Irregularly Irregular rate and rhythm, 2+ Pitting edema b/l Pulm: diminished at bases b/l, +crackles bilateral ABD: Soft, nontender, nondistended Neuro: Normal speech, normal affect Valera in place vitals reviewed Problem List: Acute hypoxic respiratory failure likely d/t CHF exacerbation Acute on chronic combined systolic/diastolic CHF Exacerbation Atrial fibrillation on chronic anticoagulation therapy Anasarca IDDM2 Iron Deficiency Anemia CKD 3 Hypertension Hypothyroidism Gout H/O spinal stroke with paraplegia Chronic lower extremity wounds Proteinuria Acute hypoxic respiratory failure secondary to CHF exacerbation acute on chronic combined systolic/diastolic heart failure exacerbation Atrial fibrillation with RVR on chronic anticoagulation therapy Anasarca Atrial fibrillation rate improved. Off amiodarone drip. Continue oral amiodarone and metoprolol. Anasarca is improving slowly Continue diuresis with IV Lasix. Nephrology increased Lasix dose and added metolazone. Continue current metoprolol dose -100 mg twice daily Continue eliquis. IDDM2 Accucheck ACHS levemir and novolog 70/30 Adjust as needed CKD 3 Associated proteinuria. Nephrology is following Continue Lasix and metolazone. Monitor renal function Thrombocytopenia Platelet count is improving. Monitor CBC Infected lower extremity wounds/osteomyelitis wound vac to left leg. Dr. Dupree seen patient and recommended wound care. Wound VAC placed. Patient is on broad-spectrum antibiotics. ID is following. He has 5 more days to complete antibiotics for osteomyelitis. Hypertension Hypothyroidism Gout H/O spinal stroke with paraplegia Continue home medications. Anemia. monitor H&H. Transfuse for hgb < 7 VTE: home eliquis Code: Full
--- NOTE | 2022-11-16 17:04 | P.PN ---
Subjective Date of Service: 11/16/22 Chief Complaint: bilateral lower extremity wounds Today No overnight events Cr stable Cont lasix will increase metolazone 5 days left to complete Iv ABx Physical exam General: Awake, NAD HEENT: Atraumatic, Normocephalic Neck: Supple, no elevated JVD Respiratory: Rales Cardiovascular: No rubs, No murmurs Gastrointestinal: Soft and benign, Non-distended Musculoskeletal: No clubbing Leg: warpeed, edema # CROW likely 2/2 prerenal state/ATN SCr 2.2 on adm, improved to 1.9, at 2.2 today Urine chem non prerenal Has subnephrotic proteinuria 3.1g KUB unremarkable on CT CPK wnl, no rhabdo [place] po fluid intake 2L/d # 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 Do not limit his by mouth fluid intake unless he d evelops hyponatremia < 130 meq/L. 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 Dupree Physical Examination - Vital Signs Temperature: 97.9 F Blood Pressure: 113/70 Pulse: 53 Respirations: 16 Pulse Ox (%): 97 Assessment And Plan Physician Review: Patient Assessed, Agree with Above Assessment and Plan
[2022-11-16] MEDS ORDERED: METOLAZONE 5 MG TABLET PO ONE (18:00)
[2022-11-17 02:13] LABS: RPR (Rapid Plasma Reagin) NON-REACT (NON-REACT)
[2022-11-17 05:42] LABS: Albumin 2.7 g/dL (3.4-5.0); Phosphorus 3.1 mg/dL (2.5-4.9); Potassium 4.2 mEq/L (3.5-5.1)
[2022-11-17 05:44] LABS: Absolute Lymphocytes (CBC) 0.8 K/uL (0.7-4.9); Hematocrit 23.9 % (39.6-49.0); Lymphocytes % 16.7 % (15.3-44.8); MCV 86.8 fL (80-100); MPV 9.3 fL (7.6-11.3); Platelets 133 thou/uL (152-406); RBC Red Blood Cell Count 2.76 M/uL (4.33-5.43)
[2022-11-17] MEDS: LEVOTHYROXINE SOD 0.075 MG TAB PO SCH (05:51)
[2022-11-17] MEDS: INSULIN -REGULAR HUMAN 50 UNIT/0.5 ML ML SQ SCH ×4 (07:30→21:12)
[2022-11-17] MEDS: INSULIN 70/30 100 UNITS/ML SQ SCH ×3 (09:21→21:13)
[2022-11-17] MEDS: INSULIN GLARGINE 100 UNIT/ML SQ SCH ×2 (09:21→21:13)
[2022-11-17] MEDS: Meropenem 1,000 MG in NA CHLORIDE 0.9% 100 ML IV SCH ×2 (09:22→21:11)
[2022-11-17] MEDS: AMIODARONE HCL 200 MG TAB PO SCH ×2 (09:23→21:11)
[2022-11-17] MEDS: FUROSEMIDE 40 MG/4 ML VIAL IV SCH ×3 (09:23→21:11)
[2022-11-17] MEDS: OXYBUTYNIN ER 5 MG TAB PO SCH (09:23)
[2022-11-17] MEDS: METOPROLOL TAR 50 MG TAB PO SCH ×2 (09:23→21:11)
[2022-11-17] MEDS: VITAMIN D 5,000 UNIT CAP PO SCH (09:23)
[2022-11-17] MEDS: APIXABAN 2.5 MG TABLET PO SCH ×2 (09:24→21:11)
[2022-11-17] MEDS: MEDIHONEY 44 ML TOPICAL TUBE TOP SCH (09:25)
[2022-11-17] MEDS: FLUTICASONE 50MCG NASAL SPRAY NAS SCH (09:25)
--- NOTE | 2022-11-17 09:50 | P.PN ---
Date of Service: 11/17/22 Chief Complaint: SOB Subjective: Patient seen and examined in room. at bedside. + hiccups. Otherwise no new or worsening complaints at this time. No acute events reported overnight. Physical Examination Temp Pulse Resp BP Pulse Ox 97.3 F 75 16 120/57 L 96 11/17/22 08:00 11/17/22 09:23 11/17/22 08:00 11/17/22 09:23 11/17/22 08:00 General: Alert, In no apparent distress, Oriented x3 HEENT: Atraumatic, Normocephalic Neck: Supple, JVD not distended Respiratory: Normal air movement, on room air. Diminished at bases. Cardiovascular: BLE pitting edema. Gastrointestinal: Normal bowel sounds. Distended. Non-tender. Integumentary: Left lateral ankle wound with wound vac. Right lateral ankle wound. Neurological: Normal speech, Normal tone, Normal affect. Paraplegia Urinary: Valera catheter draining clear yellow urine. Studies Laboratory Data: - Reviewed Microbiology Data: - Left Lower Leg wound culture 10/06: Staphylococcus aureus (MSSA) - Blood cultures 11/09: no growth to date Imaging Data: - Left distal fibula bone, biopsy 10/07: "Consistent with acute osteomyelitis, recommend clinical and radiographic correlation" - XR Chest 11/12: "Mild right basilar opacity unchanged which may represent a small area of infection or inflammation." Medications List: Reviewed Assessment and plan Problem List Acute hypoxic respiratory failure secondary to CHF exacerbation Anasarca Osteomyelitis LLE Diabetes Mellitus type II CKD III Atrial Fibrillation Hypertension Hypothyroidism Hyperlipidemia Chronic Diastolic Congestive Heart Failure Paraplegia Gout Anemia of chronic disease Osteomyelitis of Left Lower Extremity - Left distal fibula bone, biopsy 10/07: "Consistent with acute osteomyelitis, recommend clinical and radiographic correlation" - Left Lower Leg wound culture 10/06: Staphylococcus aureus (MSSA) - Rocephin started 10/10 during prior hospitalization at diagnosis of osteomyelitis. Plan for 6 weeks antibiotic therapy to end on 11/21. - Patient has been seeing podiatry Dr. Dupree as outpatient for foot wound management/wound care. - Previously on Rocephin (10/10 to 11/13) which was switched to Meropenem and Vancomycin on 11/13 due to findings of pus from LLE wound. - Wound culture ordered 11/13 - Wound culture LLE 11/13: uncollected Blood cultures 11/09: No growth to date No leukocytosis. Afebrile. CHF, Afib: cardiology on case CKD: nephrology following Recommendations - Osteomyelitis LLE: Continue antibiotic therapy for 6 weeks (10/10 to 11/21) Area of pus noted in left lower extremity wound 11/13 -> Rocephin switched to Merrem and Vancomycin 11/13. Wound culture ordered, uncollected - Obtain MRI left tib/fib once antibiotic course completed - Continue wound care per Dr. Dupree - Renally dose medications. - Strict blood glucose control. - Pressure offloading measures. Turn patient Q2H. Offload pressure on heels. Case discussed with [place] Bobby
[2022-11-17] MEDS: CODEINE 30MG/APAP 300MG TAB PO PRN (14:23)
--- NOTE | 2022-11-17 15:22 | P.PN ---
Subjective Date of Service: 11/17/22 Chief Complaint: bilateral lower extremity wounds Patient has no new complain. Patient with significant urine output but no significant response in bilateral lower extremity swelling. Physical Examination - Vital Signs Temperature: 97.5 F Blood Pressure: 118/55 Pulse: 76 Respirations: 16 Pulse Ox (%): 96 Assessment And Plan - Plan Physical Exam: GEN: Alert, oriented, NAD CV: Irregularly Irregular rate and rhythm, 2+ Pitting edema b/l Pulm: diminished at bases b/l, +crackles bilateral ABD: Soft, nontender, nondistended Neuro: Normal speech, normal affect Valera in place vitals reviewed Problem List: Acute hypoxic respiratory failure likely d/t CHF exacerbation Acute on chronic combined systolic/diastolic CHF Exacerbation Atrial fibrillation on chronic anticoagulation therapy Anasarca IDDM2 Iron Deficiency Anemia CKD 3 Hypertension Hypothyroidism Gout H/O spinal stroke with paraplegia Chronic lower extremity wounds Proteinuria Acute hypoxic respiratory failure secondary to CHF exacerbation acute on chronic combined systolic/diastolic heart failure exacerbation Atrial fibrillation with RVR on chronic anticoagulation therapy Anasarca Atrial fibrillation rate improved. Off amiodarone drip. Continue oral amiodarone and metoprolol. Anasarca is improving slowly Continue diuresis with IV Lasix. Nephrology increased Lasix dose to 40 mg IV 3 times daily and added metolazone. Waiting for significant response regarding the anasarca Continue current metoprolol dose -100 mg twice daily Continue eliquis. IDDM2 Accucheck ACHS levemir and novolog 70/30 Adjust as needed CKD 3 Associated proteinuria. Nephrology is following Continue Lasix. Metolazone dosing per nephrology. Monitor renal function Thrombocytopenia Platelet count has improved Monitor CBC Infected lower extremity wounds/osteomyelitis wound vac to left leg. Dr. Dupree seen patient and recommended wound care. Wound VAC placed per Dr. Dupree. Patient is on broad-spectrum antibiotics. ID is following. He has 4 more days to complete antibiotics for osteomyelitis. Hypertension Hypothyroidism Gout H/O spinal stroke with paraplegia Continue home medications. Anemia. monitor H&H. Transfuse for hgb < 7 VTE: home eliquis Code: Full
[2022-11-17] MEDS: VANCOMYCIN 750 MG in NA CHLORIDE 0.9% 150 ML IVPB SCH ×2 (16:00→16:58)
[2022-11-17] MEDS ORDERED: VANCOMYCIN 500 MG/VIAL ONE (16:57)
[2022-11-17] MEDS ORDERED: NA CHLORIDE 0.9% 0 ML ONE (17:03)
--- NOTE | 2022-11-18 03:55 | PN ---
Date of Progress Note: 11/17/2022 Chief Complaint: Bilateral lower extremity wounds, chronic kidney disease, acute kidney injury. History: Serum creatinine level is plateauing. The patient is on Lasix to control edema. The patie nt was started on metolazone for diuretic effect. Review of Systems: Denies chest pain, palpitation. Physical Examination: Lungs: Clear to auscultation bilaterally. Heart: S1-S2. Abdomen: Soft. Extremities: Edema present. Impression And Plan: 1.Acute kidney injury secondary to prerenal state, acute tubular necrosis. Serum creatinine was 2.2 on admission, has gradually improved to 1.9. The patient has subnephrotic range proteinuria 3.1 g, likely secondary to diabetes. The patient may need renal biopsy to rule out glomerulonephritis. 2.Chronic kidney disease 2/3A secondary to diabetic nephropathy, cardiorenal syndrome. Baseline cre atinine level was 1.1-1.4 back in March 2022. The patient developed accelerated chronic kidney dis ease due to acute tubular necrosis. Nephrotic range proteinuria is likely due to diabetes mellitus, although serology and immunology workup is pending. 3.The patient will continue vitamin D for low vitamin D level to treat vitamin D deficiency. 4.Acute respiratory failure secondary to congestive heart failure exacerbation. The patient has his tory of chronic diastolic congestive heart failure. Continue low-sodium diet, p.o. fluid restriction . 5.Vitamin D deficiency. The patient was started on D3 5000 units daily. 6.Secondary hyperparathyroidism. Monitor phosphorus level. The patient may be a candidate for calc itriol. At this point he was evaluated and no indication for calcitriol. 7.Chronic atrial fibrillation per Cardiology. EB/MODL Voice ID: [id number] Report ID: [id number]
[2022-11-18] MEDS: LEVOTHYROXINE SOD 0.075 MG TAB PO SCH (05:51)
[2022-11-18 06:18] LABS: Absolute Lymphocytes (CBC) 0.7 K/uL (0.7-4.9); Lymphocytes % 14.7 % (15.3-44.8); MCV 87.1 fL (80-100); MPV 9.1 fL (7.6-11.3); Platelets 122 thou/uL (152-406); RBC Red Blood Cell Count 2.86 M/uL (4.33-5.43)
[2022-11-18 06:32] LABS: Albumin 2.7 g/dL (3.4-5.0); Phosphorus 3.6 mg/dL (2.5-4.9); Potassium 4.4 mEq/L (3.5-5.1)
--- NOTE | 2022-11-18 07:17 | P.PN ---
Date of Service: 11/18/22 Subjective: Feeling better today no acute events overnight breathing okay on room air afebrile feels swelling is slightly improved ROS: 10 point ROS as noted above, otherwise negative Physical Exam: GEN: Alert, oriented, NAD HEENT: Normal conjunctiva, sclera anicteric CV: Regular rate and rhythm, 2+ edema up to thighs b/l Pulm: nonlabored respirations on room air, diminished at bases b/l, +crackles ABD: Soft, nontender, nondistended Neuro: Normal speech, normal affect Valera in place vitals reviewed Problem List: Acute hypoxic respiratory failure likely d/t CHF exacerbation Acute on chronic combined systolic/diastolic CHF Exacerbation Atrial fibrillation on chronic anticoagulation therapy Anasarca IDDM2 Iron Deficiency Anemia CKD 3 Hypertension Hypothyroidism Gout H/O spinal stroke with paraplegia Chronic lower extremity wounds Acute hypoxic respiratory failure secondary to CHF exacerbation acute on chronic combined systolic/diastolic heart failure exacerbation Atrial fibrillation with RVR on chronic anticoagulation therapy Anasarca Atrial fibrillation rate improved. Off amiodarone drip. Continue PO amiodarone and metoprolol. Anasarca is improving slowly Continue IV lasix - increased to TID Waiting for significant response regarding the anasarca Continue PO metoprolol -100 mg BID Continue eliquis. IDDM2 Accucheck ACHS on levemir and novolog 70/30; glc readings on lower end in last 24hrs decrease novolog dose 11/18 Adjust as needed CKD 3 Associated proteinuria. Nephrology is following Continue Lasix TID Monitor renal function Infected lower extremity wounds/osteomyelitis Dr. Dupree has seen patient and recommended wound care. Wound VAC placed per Dr. Dupree. ID following Continue antibiotic therapy x6 weeks (10/10-11/21) Rocephin switched to Merrem / Vancomycin 11/13 due to findings of pus from LLE wound. obtain MRI left tib/fib after antibiotic treatment is done per ID Thrombocytopenia Monitor CBC Hypertension Hypothyroidism Gout H/O spinal stroke with paraplegia Continue home medications. Anemia. monitor H&H. Transfuse for hgb < 7 VTE: home eliquis Code: Full Dispo: Home, later this week, pending Abx completion, improvement of edema / renal function
[2022-11-18] MEDS: INSULIN -REGULAR HUMAN 50 UNIT/0.5 ML ML SQ SCH ×4 (07:30→20:23)
--- NOTE | 2022-11-18 08:21 | P.PN ---
Date of Service: 11/18/22 Chief Complaint: Shortness of breath Subjective: Patient resting comfortably in bed, in no apparent distress. He denies any new or worsening complaints at this time. No acute events reported overnight. Plan of care discussed with patient and at bedside. Physical Examination Temp Pulse Resp BP Pulse Ox 98.8 F 57 18 121/74 96 11/18/22 04:00 11/18/22 04:00 11/18/22 04:00 11/18/22 04:00 11/18/22 04:00 General: Alert, Oriented x3. In no apparent distress. HEENT: Atraumatic, Normocephalic. Neck supple, JVD not distended. Respiratory: Diminished at bases. Normal air movement. On room air. Cardiovascular: BLE edema. Gastrointestinal: Normal bowel sounds. Non-tender. Distended. Integumentary: Left lateral ankle wound with wound vac. Right lateral ankle wound dressing clean dry and intact. Neurological: Normal speech, Normal tone, Normal affect. Paraplegia Urinary: Valera catheter draining clear yellow urine. Studies Laboratory Data: - Reviewed Microbiology Data: - Left Lower Leg wound culture 10/06: Staphylococcus aureus (MSSA) - Blood cultures 11/09: no growth to date Imaging Data: - Left distal fibula bone, biopsy 10/07: "Consistent with acute osteomyelitis, recommend clinical and radiographic correlation" - XR Chest 11/12: "Mild right basilar opacity unchanged which may represent a small area of infection or inflammation." Medications List: Reviewed Assessment and plan Problem List CHF exacerbation, resolved Anasarca Osteomyelitis LLE Diabetes Mellitus type II CKD III Atrial Fibrillation Hypertension Hypothyroidism Hyperlipidemia Chronic Diastolic Congestive Heart Failure Paraplegia Gout Anemia of chronic disease Osteomyelitis of Left Lower Extremity - Left distal fibula bone, biopsy 10/07: "Consistent with acute osteomyelitis, recommend clinical and radiographic correlation" - Left Lower Leg wound culture 10/06: Staphylococcus aureus (MSSA) - Rocephin started 10/10 during prior hospitalization at diagnosis of osteomyelitis. Plan for 6 weeks antibiotic therapy to end on 11/21. - Patient has been seeing podiatry Dr. Dupree as outpatient for foot wound management/wound care. - Previously on Rocephin (10/10 to 11/13) which was switched to Meropenem and Vancomycin on 11/13 due to findings of pus from LLE wound. - No leukocytosis - Afebrile. CHF, Afib: cardiology on case CKD: nephrology following Recommendations Continue current plan of care. - Osteomyelitis LLE: Antibiotic therapy for 6 weeks (10/10 to 11/21). 3 days of antibiotics remaining. - Continue Meropenem and Vancomycin - Obtain MRI left tib/fib once antibiotic course completed - Continue wound care per Dr. Dupree - Renally dose medications. - Strict blood glucose control. - Pressure offloading measures. Turn patient Q2H. Offload pressure on heels. Case discussed with [place] Bobby
[2022-11-18] MEDS: Meropenem 1,000 MG in NA CHLORIDE 0.9% 100 ML IV SCH ×2 (09:19→20:21)
[2022-11-18] MEDS: METOPROLOL TAR 50 MG TAB PO SCH ×2 (09:19→20:22)
[2022-11-18] MEDS: FUROSEMIDE 40 MG/4 ML VIAL IV SCH ×3 (09:19→20:21)
[2022-11-18] MEDS: APIXABAN 2.5 MG TABLET PO SCH ×2 (09:20→20:22)
[2022-11-18] MEDS: AMIODARONE HCL 200 MG TAB PO SCH ×2 (09:20→20:21)
[2022-11-18] MEDS: OXYBUTYNIN ER 5 MG TAB PO SCH (09:20)
[2022-11-18] MEDS: VITAMIN D 5,000 UNIT CAP PO SCH (09:20)
[2022-11-18] MEDS: MEDIHONEY 44 ML TOPICAL TUBE TOP SCH (09:21)
[2022-11-18] MEDS: INSULIN GLARGINE 100 UNIT/ML SQ SCH ×2 (09:22→20:22)
[2022-11-18] MEDS: FLUTICASONE 50MCG NASAL SPRAY NAS SCH (09:23)
[2022-11-18] MEDS: INSULIN 70/30 100 UNITS/ML SQ SCH ×2 (13:22→20:22)
--- NOTE | 2022-11-18 14:53 | PN ---
Date of Progress Note: 11/15/2022 Subjective: The patient was admitted with the foot infection. Patient was treated. The patient still has significant leg swelling. Objective: Vital Signs: When I saw the patient, blood pressure of 137/73, pulse of 54, afebrile. Patient had good urine output of 4100. Chest: Decreased entry, bilateral base. Heart: S1, S2. Regular. Abdomen: Obese. Extremity: Dressing on both legs with +3 edema. Laboratory Data: Hemoglobin 8.3, sodium 140, potassium 4.4, bicarb 30, BUN 55, creatinine 1.8, GFR of 41, calcium 7.6, phosphorus 3.6. Current Medications: The patient on, it includes: 1. Meropenem. 2. Vancomycin. 3. Eliquis. 4. Amiodarone. 5. Metoprolol 100 b.i.d. 6. Insulin. Assessment And Plan: 1. Acute kidney injury on chronic kidney disease secondary to toxic ATN, back close to his baseline. Still overvolume. I am going to go ahead and increase Lasix to every 6 hours and we will follow up the patient. 2. Hypertension. We will continue to utilize the blood pressure for more diuresis. 3. Edema secondary to renal failure. We will continue diuresis. 4. Foot infection. Follow up with the primary. Time spent examining the patient [id number], reviewing data, lab and radiology, placing order, discussing the case with the patient, discussing the case with the steam pressure chamber operator including the hospitalist and nursing staff more than 35 minutes. ANDREA Voice ID: [id number] Report ID: [id number] AUSTYN
[2022-11-18] MEDS ORDERED: VANCOMYCIN 500 MG/VIAL ONE (17:16)
[2022-11-18] MEDS: VANCOMYCIN 750 MG in NA CHLORIDE 0.9% 150 ML IVPB SCH (17:53)
[2022-11-18 19:54] LABS: KAPPA LIGHT CHAIN, FREE SERUM 37.8 mg/L (3.3-19.4)
[2022-11-18] MEDS ORDERED: METOPROLOL TARTRATE 5 MG/5 ML INJ IV STA (21:44)
[2022-11-19] MEDS: FUROSEMIDE 40 MG/4 ML VIAL IV SCH ×4 (02:19→20:59)
[2022-11-19 03:24] LABS: Albumin 2.8 g/dL (3.4-5.0); Phosphorus 3.8 mg/dL (2.5-4.9); Potassium 4.3 mEq/L (3.5-5.1)
[2022-11-19] MEDS ORDERED: METOPROLOL TARTRATE 5 MG/5 ML INJ IV STA (04:09)
[2022-11-19] MEDS: LEVOTHYROXINE SOD 0.075 MG TAB PO SCH (05:35)
--- NOTE | 2022-11-19 07:18 | P.PN ---
Date of Service: 11/19/22 Subjective: Feels itchy all over with erythema - possible allergy went into a-fib with HR in 100-120s and borderline low-normal bp last night converted to sinus rhythm today - HR remains in 100s otherwise feeling better today Legs dont feet as tight today afebrile ROS: 10 point ROS as noted above, otherwise negative Physical Exam: GEN: Alert, oriented, NAD HEENT: Normal conjunctiva, sclera anicteric CV: Regular rate and rhythm, 2+ edema up to thighs b/l Pulm: nonlabored respirations on room air, diminished at bases b/l, +crackles ABD: Soft, nontender, nondistended Neuro: Normal speech, normal affect Valera in place vitals reviewed Problem List: Acute hypoxic respiratory failure likely d/t CHF exacerbation Acute on chronic combined systolic/diastolic CHF Exacerbation Atrial fibrillation (paroxysmal)on chronic anticoagulation therapy Anasarca IDDM2 CROW on CKD 3 Infected lower extremity wounds/osteomyelitis Hypertension Hypothyroidism Gout H/O spinal stroke with paraplegia Anemia Acute hypoxic respiratory failure secondary to CHF exacerbation acute on chronic combined systolic/diastolic heart failure exacerbation Atrial fibrillation with RVR on chronic anticoagulation therapy Anasarca Atrial fibrillation rate improved. Off amiodarone drip. Continue PO amiodarone and metoprolol. Anasarca is improving slowly Continue IV lasix - increased to q6h per nephro Continue PO metoprolol -100 mg BID Continue eliquis. went into a-fib with rvr / HR in 100-120s and borderline low-normal bp 9/12 pm given IV metoprolol and converted to sinus rhythm today - HR remains in 100s IDDM2 Accucheck ACHS on levemir and novolog 70/30; glc readings on lower end 11/18 decrease novolog dose 11/18 Adjust as needed CROW on CKD 3 Associated proteinuria. Nephrology is following Continue IV lasix - increased to q6h Monitor renal function Infected lower extremity wounds/osteomyelitis Dr. Dupree has seen patient and recommended wound care. Wound VAC placed per Dr. Dupree. ID following Continue antibiotic therapy x6 weeks (10/10-11/21) Rocephin switched to Merrem / Vancomycin 11/13 due to findings of pus from LLE wound. Vanc switched to PO doxy 11/19 - d/t possible allergy (generalized itchy / redness) continue IV merrem / PO doxy low dose PO Benadryl MRI left tib/fib (11/19): ordered to f/u osteomyelitis Thrombocytopenia Monitor CBC Hypertension Hypothyroidism Gout H/O spinal stroke with paraplegia Continue home medications. Anemia. monitor H&H. Transfuse for hgb < 7 VTE: home eliquis Code: Full Dispo: Home, later this week, pending Abx completion, improvement of edema / renal function
[2022-11-19] MEDS: INSULIN -REGULAR HUMAN 50 UNIT/0.5 ML ML SQ SCH ×4 (07:30→21:00)
[2022-11-19] MEDS: INSULIN 70/30 100 UNITS/ML SQ SCH ×3 (08:31→21:00)
--- NOTE | 2022-11-19 08:53 | P.PN ---
Date of Service: 11/19/22 Chief Complaint: Shortness of breath Subjective: Patient seen and examined at bedside. present in room. Patient reports itching/rash following most recent vancomycin administration. Physical Examination Temp Pulse Resp BP Pulse Ox 97.6 F 121 H 18 97/81 96 11/19/22 04:00 11/19/22 04:58 11/19/22 04:00 11/19/22 04:58 11/19/22 04:00 General: Alert, Oriented x3. In no apparent distress. Pleasant. HEENT: Atraumatic, Normocephalic. Neck supple, JVD not distended. Respiratory: Diminished at bases. Normal air movement. On room air. Cardiovascular: BLE edema. Gastrointestinal: Normal bowel sounds. Non-tender. Distended. Integumentary: Left lateral ankle wound with wound vac. Right lateral ankle wound dressing clean dry and intact. Neurological: Normal speech, Normal tone, Normal affect. Paraplegia Urinary: Valera catheter Studies Laboratory Data: - Reviewed Microbiology Data: - Left Lower Leg wound culture 10/06: Staphylococcus aureus (MSSA) - Blood cultures 11/09: no growth to date Imaging Data: - Left distal fibula bone, biopsy 10/07: "Consistent with acute osteomyelitis, recommend clinical and radiographic correlation" - XR Chest 11/12: "Mild right basilar opacity unchanged which may represent a small area of infection or inflammation." Medications List: Reviewed Assessment and plan Problem List CHF exacerbation, resolved Anasarca Osteomyelitis LLE Diabetes Mellitus type II CKD III Atrial Fibrillation Hypertension Hypothyroidism Hyperlipidemia Chronic Diastolic Congestive Heart Failure Paraplegia Gout Anemia of chronic disease Osteomyelitis of Left Lower Extremity - Left distal fibula bone, biopsy 10/07: "Consistent with acute osteomyelitis, recommend clinical and radiographic correlation" - Left Lower Leg wound culture 10/06: Staphylococcus aureus (MSSA) - Rocephin started 10/10 during prior hospitalization at diagnosis of osteomyelitis. Plan for 6 weeks antibiotic therapy to end on 11/21. - Patient has been seeing podiatry Dr. Dupree as outpatient for foot wound management/wound care. - Previously on Rocephin (10/10 to 11/13) which was switched to Meropenem and Vancomycin on 11/13 due to findings of pus from LLE wound. - No leukocytosis - Afebrile. CHF, Afib: cardiology on case CKD: nephrology following Recommendations Continue current plan of care. - Osteomyelitis LLE: Antibiotic therapy for 6 weeks (10/10 to 11/21). - Itching/rash following recent vancomycin dose: benadryl - switch to doxycycline from vancomycin - Obtain MRI left tib/fib, pending - Continue wound care per Dr. Dupree - Renally dose medications. - Strict blood glucose control. - Pressure offloading measures. Turn patient Q2H. Offload pressure on heels. Case discussed with Vent[place] Bobby
[2022-11-19] MEDS: METOPROLOL TAR 50 MG TAB PO SCH ×2 (09:37→21:00)
[2022-11-19] MEDS: APIXABAN 2.5 MG TABLET PO SCH ×2 (09:37→21:00)
[2022-11-19] MEDS: AMIODARONE HCL 200 MG TAB PO SCH ×2 (09:37→21:00)
[2022-11-19] MEDS: OXYBUTYNIN ER 5 MG TAB PO SCH (09:37)
[2022-11-19] MEDS: Meropenem 1,000 MG in NA CHLORIDE 0.9% 100 ML IV SCH ×2 (09:37→20:59)
[2022-11-19] MEDS: VITAMIN D 5,000 UNIT CAP PO SCH (09:37)
[2022-11-19] MEDS: INSULIN GLARGINE 100 UNIT/ML SQ SCH ×2 (09:38→21:01)
[2022-11-19] MEDS: MEDIHONEY 44 ML TOPICAL TUBE TOP SCH (09:38)
[2022-11-19] MEDS: FLUTICASONE 50MCG NASAL SPRAY NAS SCH (09:38)
[2022-11-19] MEDS ORDERED: ALBUTEROL 2.5 MG/3 ML NEB SOL NEB PRN ×2 (09:59→15:00)
[2022-11-19] MEDS ORDERED: DIPHENHYDRAMINE 50 MG/ML VIAL IV ONE (10:44)
[2022-11-19] MEDS ORDERED: DIPHENHYDRAMINE 25 MG TAB/CAP PO ONE (10:52)
[2022-11-19] MEDS: DOXYCYCLINE 100 MG CAP PO SCH ×2 (11:03→21:01)
[2022-11-19] MEDS: CODEINE 30MG/APAP 300MG TAB PO PRN (13:00)
--- NOTE | 2022-11-19 13:26 | PN ---
Date of Progress Note: 11/19/2022 Subjective: The patient was admitted with infectious on the foot. The patient was started on antibiotic. The patient had anasarca. Had been diuresed yesterday. We increased the Lasix. Kidney function stayed stable. The patient had significant urine output. Physical Examination: Vital Signs: Blood pressure 116/76, pulse of 119, afebrile. The patient had urine output of 4200. Chest: Decreased entry bilateral base. Heart: S1, S2. Systolic murmur. Abdomen: Soft, nontender. Extremity: Wound with wound VAC. +3 edema. Neurologic: Alert. Laboratory Data: Hemoglobin 8.3. Sodium 141, potassium 4.3, bicarb 31, BUN 55, creatinine 1.8, GFR 41, calcium 7.9, phosphorus 3.8. Current Medications: The patient on include; 1. Doxycycline. 2. Meropenem. 3. Eliquis. 4. Metoprolol 100 b.i.d. 5. Lasix 40 q.6. 6. Levothyroxine. Assessment And Plan: 1. Chronic kidney disease stage 3B/4 secondary to diabetes, nephropathy, hypertension nephrosclerosis, cardiorenal, still on the over volume side. Had good urine output. I am going to continue current diuresis dose and we will monitor. 2. Hypertension. We will utilize blood pressure for more diuresis. 3. Hyponatremia, dilutional. Continue current diuresis. 4. Congestive heart failure with exacerbation as above. 5. Foot infection, osteomyelitis. Continue current antibiotic. Follow up with primary. Time spent examining the patient [id number], reviewing data, lab and radiology, placing order, discussing the case with the patient, discussing the case with the production team leader including the hospitalist and nursing staff more than 35 minutes. ANDREA Voice ID: [id number] Report ID: [id number] AUSTYN
--- NOTE | 2022-11-19 15:49 | RAD REPORT ---
EXAM DESCRIPTION: MRI - Tib Fib Left Wo Cont - 11/19/2022 12:29 pm CLINICAL HISTORY: f/u osteomyelitis COMPARISON: Extrem Venous W Compress Jeff dated 10/24/2022 TECHNIQUE: Multiplanar multisequence MRI of the left tibia and fibula, obtained without IV contras t. FINDINGS: A small geographic region of signal abnormality is present along the distal shaft of the t ibia, T1 axial image 19 series 6, which may represent a small bone infarct. No other marrow signal abnormality. Soft tissue irregularity and defect along the lateral mid to distal lower leg. There is obliteration of the subcutaneous fat, and the defect appears to extend to the level of the central tendon of the p eroneus longus and brevis. Surrounding nonspecific mildly hyperintense T2 signal within the muscle. F at replacement of the included long flexor muscle bellies. Subcutaneous edema along the distal lower leg and dorsum of the foot. Limited evaluation of the tibiotalar and hindfoot joints, given large field of view, without evidence of high-grade degenerative or erosive changes. Scattered moderate degenerative changes throughout the midfoot and hindfoot. IMPRESSION: Soft tissue defect/wound along the lateral mid to distal lower leg, appears to involve p ortions of the peroneus longus and brevis muscles, possibly extending to the central tendon. Please c orrelate with physical exam. No evidence of underlying marrow signal abnormality to suggest osteomyelitis. Central geographic sandra on of signal abnormality in the distal shaft of the tibia, may represent a small bone infarct.
--- NOTE | 2022-11-19 19:20 | PN ---
Date of Progress Note: 11/19/2022 Subjective: Seen by bedside. I was called to see him again because he had an atrial fibrillation wi th rapid ventricular response episode and now it is better. His heart rate is in the 80s. Review of Systems: No chest pain. Has shortness of breath on exertion. No nausea, vomiting, or diarrhea. All other sy stems were reviewed, they were negative. Objective: Vital Signs: Reviewed. Head and Neck: Pupils are equal, reactive to light. Intact eye movements. No cervical lymphadenopa thy. Neck is supple. Thyroid is not enlarged. Lungs: Clear to auscultation bilaterally. No rhonchi, wheezing, or crackles. No accessory muscle u se. Heart: Irregularly irregular. No extra sounds. Abdomen: Soft, nontender. Bowel sounds positive. No organomegaly. No masses or hernia. No rigidi ty or rebound. Extremities: No clubbing or cyanosis. Intact pulses. Skin: No rash. No nodule. Neurologic: Alert, awake, oriented x3. No acute focal deficits appreciated. Lymph Nodes: No cervical or axillary lymphadenopathy. Investigations: BUN 55, creatinine 1.89, and hemoglobin is 8.3. Assessment And Recommendations: 1.Atrial fibrillation, now he is back, heart rate is controlled. Continue metoprolol at the current dose and amiodarone. This patient will benefit from atrial fibrillation ablation. Once he is stabl e and out of the hospital, we will arrange for that to have that as an outpatient basis. 2.Diastolic heart failure, improving on diuretics. Continue current management. 3.Acute on chronic renal failure due to cardiorenal syndrome and responding to diuresis. Continue c urrent management. SR/MODL Voice ID: [id number] Report ID: [id number]
[2022-11-20] MEDS ORDERED: DIPHENHYDRAMINE 50 MG/ML VIAL IV ONE (01:47)
[2022-11-20] MEDS: FUROSEMIDE 40 MG/4 ML VIAL IV SCH ×2 (02:12→08:54)
[2022-11-20 02:51] LABS: Hematocrit 26.8 % (39.6-49.0); MCV 87.5 fL (80-100); MPV 8.9 fL (7.6-11.3); Platelets 112 thou/uL (152-406); RBC Red Blood Cell Count 3.07 M/uL (4.33-5.43)
[2022-11-20 03:13] LABS: Albumin 2.7 g/dL (3.4-5.0); Phosphorus 4.1 mg/dL (2.5-4.9); Potassium 4.7 mEq/L (3.5-5.1)
[2022-11-20] MEDS: LEVOTHYROXINE SOD 0.075 MG TAB PO SCH (06:09)
--- NOTE | 2022-11-20 07:28 | P.PN ---
Date of Service: 11/20/22 Subjective: Feeling okay a-fib today with HR in 60-90s continues to feel generalized itchiness Swelling in legs continues to improve otherwise no new / worsening problems ROS: 10 point ROS as noted above, otherwise negative Physical Exam: GEN: Alert, oriented, NAD HEENT: Normal conjunctiva, sclera anicteric CV: Irregularly Irregular rate and rhythm, 2+ edema up to thighs b/l Pulm: nonlabored respirations on room air, diminished at bases b/l, +crackles ABD: Soft, nontender, nondistended Neuro: Normal speech, normal affect Valera in place vitals reviewed Problem List: Acute hypoxic respiratory failure likely d/t CHF exacerbation Acute on chronic combined systolic/diastolic CHF Exacerbation Atrial fibrillation (paroxysmal)on chronic anticoagulation therapy Anasarca IDDM2 CROW on CKD 3 Infected lower extremity wounds/osteomyelitis Hypertension Hypothyroidism Gout H/O spinal stroke with paraplegia Anemia Acute hypoxic respiratory failure secondary to CHF exacerbation acute on chronic combined systolic/diastolic heart failure exacerbation Atrial fibrillation with RVR on chronic anticoagulation therapy Anasarca Atrial fibrillation rate improved. Off amiodarone drip. Anasarca is improving slowly Cardiology is following Continue PO amiodarone and metoprolol. Continue eliquis. Lasix DC'd 11/20 per cardio Cardizem 30mg BID added 11/20 recommends ablation once stable as outpatient Currently in a-fib with HR in 60-90s IDDM2 Accucheck ACHS on levemir and novolog 70/30; glc readings on lower end 11/18 decrease novolog dose 11/18 Adjust as needed CROW on CKD 3 Associated proteinuria. Nephrology is following lasix DC'd per cardio 11/20 Monitor renal function Infected lower extremity wounds/osteomyeliti MRI left tib/fib (11/19): Soft tissue defect/wound along the lateral mid to distal lower leg, appears to involve portions of the peroneus longus and brevis muscles, possibly extending to the central tendon. Please correlate with physical exam. No evidence of underlying marrow signal abnormality to suggest osteomyelitis Dr. Dupree has seen patient and recommended wound care. Wound VAC placed per Dr. Dupree. ID following Continue antibiotic therapy x6 weeks (10/10-11/21) Rocephin switched to Merrem / Vancomycin 11/13 due to findings of pus from LLE wound. Vanc switched to PO doxy 11/19 - d/t possible allergy (generalized itchy / redness) continue IV merrem / PO doxy low dose PO Benadryl - minimize given afib ordered to f/u osteomyelitis Thrombocytopenia Monitor CBC Hypertension Hypothyroidism Gout H/O spinal stroke with paraplegia Continue home medications. Anemia. monitor H&H. Transfuse for hgb < 7 VTE: home eliquis Code: Full Dispo: Home, later this week, pending Abx completion, improvement of edema / renal function
[2022-11-20] MEDS: INSULIN -REGULAR HUMAN 50 UNIT/0.5 ML ML SQ SCH ×4 (07:30→20:53)
[2022-11-20] MEDS: INSULIN GLARGINE 100 UNIT/ML SQ SCH ×2 (08:52→20:52)
[2022-11-20] MEDS: Meropenem 1,000 MG in NA CHLORIDE 0.9% 100 ML IV SCH ×2 (08:53→20:53)
[2022-11-20] MEDS: OXYBUTYNIN ER 5 MG TAB PO SCH (08:53)
[2022-11-20] MEDS: DOXYCYCLINE 100 MG CAP PO SCH ×2 (08:53→20:51)
[2022-11-20] MEDS: METOPROLOL TAR 50 MG TAB PO SCH ×2 (08:53→20:52)
[2022-11-20] MEDS: VITAMIN D 5,000 UNIT CAP PO SCH (08:53)
[2022-11-20] MEDS: INSULIN 70/30 100 UNITS/ML SQ SCH ×3 (08:53→20:53)
[2022-11-20] MEDS: AMIODARONE HCL 200 MG TAB PO SCH ×2 (08:54→20:52)
[2022-11-20] MEDS: FLUTICASONE 50MCG NASAL SPRAY NAS SCH (08:54)
[2022-11-20] MEDS: APIXABAN 2.5 MG TABLET PO SCH ×2 (08:54→21:06)
[2022-11-20] MEDS: MEDIHONEY 44 ML TOPICAL TUBE TOP SCH (08:55)
--- NOTE | 2022-11-20 08:56 | P.PN ---
Date of Service: 11/20/22 Chief Complaint: Shortness of breath Subjective: Patient seen and examined. also at bedside. Plan of care discussed with patient and . Denies any new or worsening complaints. Physical Examination Temp Pulse Resp BP Pulse Ox 97.7 F 109 H 17 102/67 97 11/20/22 04:00 11/20/22 04:00 11/20/22 04:00 11/20/22 04:00 11/20/22 04:00 General: Alert, Oriented x3. In no apparent distress. Pleasant. HEENT: Atraumatic, Normocephalic. Neck supple, JVD not distended. Respiratory: Diminished at bases. Normal air movement. On room air. Cardiovascular: BLE edema. Gastrointestinal: Normal bowel sounds. Non-tender. Distended. Integumentary: Left lateral ankle wound with wound vac. Right lateral ankle wound dressing clean dry and intact. Neurological: Normal speech, Normal tone, Normal affect. Paraplegia Urinary: Valera catheter Studies Laboratory Data: - Reviewed Microbiology Data: - Left Lower Leg wound culture 10/06: Staphylococcus aureus (MSSA) - Blood cultures 11/09: no growth to date Imaging Data: - Left distal fibula bone, biopsy 10/07: "Consistent with acute osteomyelitis, recommend clinical and radiographic correlation" - XR Chest 11/12: "Mild right basilar opacity unchanged which may represent a small area of infection or inflammation." Medications List: Reviewed Assessment and plan Problem List CHF exacerbation, resolved Anasarca Osteomyelitis LLE Diabetes Mellitus type II CKD III Atrial Fibrillation Hypertension Hypothyroidism Hyperlipidemia Chronic Diastolic Congestive Heart Failure Paraplegia Gout Anemia of chronic disease Osteomyelitis of Left Lower Extremity - Left distal fibula bone, biopsy 10/07: "Consistent with acute osteomyelitis, recommend clinical and radiographic correlation" - Left Lower Leg wound culture 10/06: Staphylococcus aureus (MSSA) - Rocephin started 10/10 during prior hospitalization at diagnosis of osteomyelitis. Plan for 6 weeks antibiotic therapy to end on 11/21. - Patient has been seeing podiatry Dr. Dupree as outpatient for foot wound management/wound care. - Previously on Rocephin (10/10 to 11/13) which was switched to Meropenem and Vancomycin on 11/13 due to findings of pus from LLE wound. - Vancomycin switched to doxycycline on 11/19 due to itching/rash development during infusion - No leukocytosis - Afebrile. - MRI left tib/fib 11/19: "Soft tissue defect/wound along the lateral mid to distal lower leg, appears to involve portions of the peroneus longus and brevis muscles, possibly extending to the central tendon. Please correlate with physical exam. No evidence of underlying marrow signal abnormality to suggest osteomyelitis. Central geographic region of signal abnormality in the distal shaft of the tibia, may represent a small bone infarct." CHF, Afib: cardiology on case CKD: nephrology following Recommendations - Osteomyelitis LLE: Antibiotic therapy for 6 weeks (10/10 to 11/21). Repeat MRI left tib/fib obtained 11/19 without evidence to suggest osteomyelitis. Last day of antibiotics tomorrow 11/21. - Wound care per Dr. Dupree - Renally dose medications. - Strict blood glucose control. - Pressure offloading measures. Turn patient Q2H. Offload pressure on heels. - Follow up with Dr. Dupree and wound care as outpatient. Case discussed with Ventura Bobby
[2022-11-20] MEDS: DILTIAZEM HCL 60 MG TAB PO SCH ×2 (09:41→20:52)
--- NOTE | 2022-11-20 10:25 | PN ---
Date of Progress Note: 11/20/2022 Subjective: He is back in AFib with heart rate being fast. Review of Systems: No chest pain. No shortness of breath. No nausea, vomiting, diarrhea. All other systems reviewed a nd they were negative. Physical Examination: Vital Signs: Reviewed. Head and Neck: Pupils are equal, reactive to light. Intact eye movements. No JVD. No cervical lym phadenopathy. Neck is supple. Thyroid is not enlarged. Lungs: Clear to auscultation bilaterally. No rhonchi, wheezing, or crackles. No accessory muscle u se. Heart: Irregularly irregular. No extra sounds. Abdomen: Soft, nontender. Bowel sounds positive. No organomegaly. No masses or hernia. No rigidi ty or rebound. Extremities: No edema, clubbing, or cyanosis. Intact pulses. Skin: No rash. Neurologic: Alert, awake, oriented x3. No acute focal deficits appreciated. Investigations: Labs were reviewed. Assessment And Recommendations: 1.Atrial fibrillation with rapid ventricular response. I recommend to add Cardizem 30 mg twice a da y and titrate up as needed. Continue amiodarone and metoprolol. He will need atrial fibrillation ab lation as it has been very difficult to control his atrial fibrillation on multiple medications and c ontinues to go back into atrial fibrillation with rapid ventricular response. Also continue Eliquis at 2.5 mg twice a day. 2.Chronic diastolic heart failure and he is on Lasix. Creatinine is going up. Recommend to stop the Lasix now and dose it orally after that to avoid complete renal fail ure. SR/MODL Voice ID: [id number] Report ID: [id number]
--- NOTE | 2022-11-20 13:58 | PN ---
Date of Progress Note: 11/20/2022 Subjective: The patient was admitted with osteomyelitis. The patient was on diuresis and diuresed very well. The patient had AFib. Physical Examination: Vital Signs: Blood pressure 113/71, pulse of 71. The patient had good urine output of 4200. The patient negative of 2 L. Weight did not change. Chest: Decreased entry bilateral base. Heart: S1, S2. Regular. Abdomen: Soft, nontender. Extremities: +3 edema. Dressing on the foot with wound VAC. Neurologic: Alert. Has paraplegia. Laboratory Data: Hemoglobin 8.9. Sodium 136, potassium 4.7, bicarb 29, BUN 54, creatinine 2.1, calcium 7.5. Current Medications: The patient on include; 1. Diphenhydramine. 2. Meropenem. 3. Doxycycline. 4. Eliquis. 5. Metoprolol. 6. Oxybutynin. Assessment And Plan: 1. 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 I am going to continue current diuresis, dose Lasix 40 every 6 hours, and we will monitor. 2. Hypertension, controlled, optimal. 3. Anasarca secondary to proteinuria. Continue diuresis to optimize fluid status. 4. Foot infection, osteo. Continue current treatment. 5. Congestive heart failure with exacerbation. We will try to optimize fluid status. 6. Hyponatremia secondary to dilutional. Continue diuresis. 7. Secondary hyperparathyroidism, stable. 8. Osteomyelitis. Continue current antibiotic. Time spent examining the patient [id number], reviewing data, lab and radiology, placing order, discussing the case with the patient, discussing the case with the crab steamer including the hospitalist and nursing staff more than 35 minutes. ANDREA Voice ID: [id number] Report ID: [id number] AUSTYN
[2022-11-20 21:06] VITALS: O2SAT 98
[2022-11-21 05:45] LABS: Phosphorus 4.6 mg/dL (2.5-4.9); Potassium 4.6 mEq/L (3.5-5.1)
[2022-11-21] MEDS: LEVOTHYROXINE SOD 0.075 MG TAB PO SCH (06:27)
--- NOTE | 2022-11-21 07:06 | P.PN ---
Date of Service: 11/21/22 Subjective: ROS: 10 point ROS as noted above, otherwise negative Physical Exam: GEN: Alert, oriented, NAD HEENT: Normal conjunctiva, sclera anicteric CV: Irregularly Irregular rate and rhythm, 2+ edema up to thighs b/l Pulm: nonlabored respirations on room air, diminished at bases b/l, +crackles ABD: Soft, nontender, nondistended Neuro: Normal speech, normal affect Valera in place vitals reviewed Problem List: Acute hypoxic respiratory failure likely d/t CHF exacerbation Acute on chronic combined systolic/diastolic CHF Exacerbation Atrial fibrillation (paroxysmal)on chronic anticoagulation therapy Anasarca IDDM2 CROW on CKD 3 Infected lower extremity wounds/osteomyelitis Hypertension Hypothyroidism Gout H/O spinal stroke with paraplegia Anemia Acute hypoxic respiratory failure secondary to CHF exacerbation acute on chronic combined systolic/diastolic heart failure exacerbation Atrial fibrillation with RVR on chronic anticoagulation therapy Anasarca Atrial fibrillation rate improved. Off amiodarone drip. Anasarca is improving slowly Cardiology is following Continue PO amiodarone and metoprolol. Continue eliquis. Lasix DC'd 11/20 per cardio Cardizem 30mg BID added 11/20 recommends ablation once stable as outpatient Currently in a-fib with HR in 60-90s IDDM2 Accucheck ACHS on levemir and novolog 70/30; glc readings on lower end 11/18 decrease novolog dose 11/18 Adjust as needed CROW on CKD 3 Associated proteinuria. Nephrology is following lasix DC'd per cardio 11/20 Monitor renal function Infected lower extremity wounds/osteomyelitis MRI left tib/fib (11/19): Soft tissue defect/wound along the lateral mid to distal lower leg, appears to involve portions of the peroneus longus and brevis muscles, possibly extending to the central tendon. Please correlate with physical exam. No evidence of underlying marrow signal abnormality to suggest osteomyelitis Dr. Dupree has seen patient and recommended wound care. Wound VAC placed per Dr. Dupree. ID following Continue antibiotic therapy x6 weeks (10/10-11/21) Rocephin switched to Merrem / Vancomycin 11/13 due to findings of pus from LLE wound. Vanc switched to PO doxy 11/19 - d/t possible allergy (generalized itchy / redness) continue IV merrem / PO doxy low dose PO Benadryl - minimize given afib Thrombocytopenia Monitor CBC Hypertension Hypothyroidism Gout H/O spinal stroke with paraplegia Continue home medications. Anemia. monitor H&H. Transfuse for hgb < 7 VTE: home eliquis Code: Full Dispo: Home, later this week, pending Abx completion, improvement of edema / renal function
[2022-11-21] MEDS: INSULIN -REGULAR HUMAN 50 UNIT/0.5 ML ML SQ SCH ×2 (07:30→11:15)
[2022-11-21] MEDS: DILTIAZEM HCL 60 MG TAB PO SCH (08:10)
[2022-11-21] MEDS: APIXABAN 2.5 MG TABLET PO SCH (08:12)
[2022-11-21] MEDS: OXYBUTYNIN ER 5 MG TAB PO SCH (08:12)
[2022-11-21] MEDS: VITAMIN D 5,000 UNIT CAP PO SCH (08:12)
[2022-11-21] MEDS: AMIODARONE HCL 200 MG TAB PO SCH (08:12)
[2022-11-21] MEDS: METOPROLOL TAR 50 MG TAB PO SCH (08:13)
[2022-11-21] MEDS: FLUTICASONE 50MCG NASAL SPRAY NAS SCH (08:13)
[2022-11-21] MEDS: MEDIHONEY 44 ML TOPICAL TUBE TOP SCH (08:14)
[2022-11-21] MEDS: INSULIN GLARGINE 100 UNIT/ML SQ SCH (08:14)
[2022-11-21] MEDS: INSULIN 70/30 100 UNITS/ML SQ SCH ×2 (08:14→14:00)
--- NOTE | 2022-11-21 08:14 | P.PN ---
Date of Service: 11/21/22 Chief Complaint: Shortness of breath Subjective: Patient seen and examined at bedside. Resting comfortably in bed, in no apparent distress, breathing comfortably on room air. He denies any new or worsening complaints at this time. Current plan for discharge home with continued wound care as outpatient by . Physical Examination Temp Pulse Resp BP Pulse Ox 97.3 F 56 18 131/80 97 11/21/22 04:00 11/21/22 04:00 11/21/22 04:00 11/21/22 04:00 11/21/22 04:00 General: Alert, Oriented x3. In no apparent distress. Pleasant. HEENT: Atraumatic, Normocephalic. Neck supple, JVD not distended. Respiratory: Diminished at bases. Normal air movement. On room air. Cardiovascular: BLE edema. Weak pedal pulses. Gastrointestinal: Normal bowel sounds. Non-tender. Distended. Integumentary: Left lateral ankle wound with wound vac. Right lateral ankle wound dressing clean dry and intact. Neurological: Normal speech, Normal tone, Normal affect. Paraplegia Urinary: Valera catheter draining clear yellow urine. Studies Laboratory Data: - Reviewed Microbiology Data: - Left Lower Leg wound culture 10/06: Staphylococcus aureus (MSSA) - Blood cultures 11/09: no growth to date Imaging Data: - Left distal fibula bone, biopsy 10/07: "Consistent with acute osteomyelitis, recommend clinical and radiographic correlation" - XR Chest 11/12: "Mild right basilar opacity unchanged which may represent a small area of infection or inflammation." - MRI left tib/fib 11/19: "Soft tissue defect/wound along the lateral mid to distal lower leg, appears to involve portions of the peroneus longus and brevis muscles, possibly extending to the central tendon. Please correlate with physical exam. No evidence of underlying marrow signal abnormality to suggest osteomyelitis. Central geographic region of signal abnormality in the distal shaft of the tibia, may represent a small bone infarct." Medications List: - Reviewed Assessment and plan Problem List CHF exacerbation, resolved Anasarca Osteomyelitis LLE Diabetes Mellitus type II CKD III Atrial Fibrillation Hypertension Hypothyroidism Hyperlipidemia Chronic Diastolic Congestive Heart Failure Paraplegia Gout Anemia of chronic disease Osteomyelitis of Left Lower Extremity - Left distal fibula bone, biopsy 10/07: "Consistent with acute osteomyelitis, recommend clinical and radiographic correlation" - Left Lower Leg wound culture 10/06: Staphylococcus aureus (MSSA) - Rocephin started 10/10 during prior hospitalization at diagnosis of osteomyelitis. Plan for 6 weeks antibiotic therapy to end on 11/21. - Patient has been seeing podiatry Dr. Dupree as outpatient for foot wound management/wound care. - Previously on Rocephin (10/10 to 11/13) which was switched to Meropenem and Vancomycin on 11/13 due to findings of pus from LLE wound. - Vancomycin switched to doxycycline on 11/19 due to itching/rash development during infusion - No leukocytosis - Afebrile. - MRI left tib/fib 11/19: "Soft tissue defect/wound along the lateral mid to distal lower leg, appears to involve portions of the peroneus longus and brevis muscles, possibly extending to the central tendon. Please correlate with physical exam. No evidence of underlying marrow signal abnormality to suggest osteomyelitis. Central geographic region of signal abnormality in the distal shaft of the tibia, may represent a small bone infarct." CHF, Afib: cardiology on case CKD: nephrology following Recommendations Osteomyelitis LLE: On antibiotic therapy for 6 weeks (10/10 to 11/21). - Repeat MRI left tib/fib 11/19: "No evidence of underlying marrow signal abnormality to suggest osteomyelitis." - Last dose of antibiotic today 11/21 * Continue to follow up with podiatry Dr. Dupree as outpatient for wound care management. - Strict blood glucose control. - Pressure offloading measures. Turn patient Q2H. Offload pressure on heels. - atrial fibrillation, CHF: Follow up with cardiology Dr. Mo as outpatient. MRI Left tib/fib showing "Central geographic region of signal abnormality in the distal shaft of the tibia, may represent a small bone infarct." - recommend to follow up with auto clutch specialist. Case discussed with Ventura Bobby
[2022-11-21] MEDS: DOXYCYCLINE 100 MG CAP PO SCH (08:15)
[2022-11-21] MEDS: Meropenem 1,000 MG in NA CHLORIDE 0.9% 100 ML IV SCH (08:16)
[2022-11-21 11:37] LABS: Thyroid Stimulating Hormone 10.6 uIU/mL (0.358-3.740)
[2022-11-21 12:48] VITALS: BP 99/61; TEMP 97.4
--- NOTE | 2022-11-21 14:28 | P.DS ---
Admission Date: 11/09/22 Discharge Date: 11/21/22 Disposition: DC HOME/HOME HEALTH CARE Discharge Condition: GOOD Reason for Admission: bilateral lower extremity wounds Consultations: Cardiology - Dr. Mo Infectious Disease - Dr. Nielsen Nephrology - Dr. Horan Podiatry - Dr. Dupree Brief History of Present Illness: 57yo M, PMH: combined systolic and diastolic congestive heart failure, chronic atrial fibrillation, obesity, diabetes, hypertension, hypothyroidism, hyperlipidemia, paraplegia (spinal stroke 2013), bilateral lower leg diabetic ulcer wounds, stage III chronic kidney disease. Patient presented to the ED with shortness of breath, phlegm running down his throat, and orthopnea. Patient was found to be in acute hypoxic respiratory distress secondary to acute on chronic CHF exacerbation with BNP 1520, sodium 129, potassium 4.6, BUN/creatinine 58/2.18, GFR 35, glucose 590, ABG PH7.39, CO2 41.8, O2115.0, HCO3 24.8 on NC. BP 150 / 79; Pulse 71; Resp 20 S; Temp 99.5(O); Pulse Ox 95% on R/A; Weight 117.93 kg; ha1 Height 5 ft. 8 in. ; 04:00 BP 165 / 79; Pulse 69; Resp 22 S; Pulse Ox 94% on R/A; ha1 03:31 Body Mass Index 39.53 (117.93 kg, 172.72 cm), EC:28 Rate is 70 beats/min. Rhythm is regular. QRS [place] is Normal. UT interval is normal. QRS himanshu interval is normal. QT interval is normal. No Q waves. T waves are Normal. No ST changes noted. Clinical impression: NSR w/ Non-specific ST/T Changes and No evidence of ischemia. CT abd/pelvis reveals 1. No definite acute findings in the chest. New small 13 mm nodule in the right upper lobe that was not present 10/24/2022 and presumably represents a small focus of infection or inflammation but may not be clinically significant. 2. The gallbladder wall appears thickened. Suspected pericholecystic edema as well. Motion artifact is present. Correlate with LFTs. On examination, audible wheezing present but can be cleared with a cough, ill appearing and respiratory consulted, distended nontender abdomen, BLE edema with wound vac to left lower leg and jamey bandage to right lower leg. 3 LNC sating 96% not on home oxygen, myers in place, PICC line to right upper extremity for rocephin IV six week course (unclear of beginning date). Hospital Course: Problem List: Acute hypoxic respiratory failure likely d/t CHF exacerbation Acute on chronic combined systolic/diastolic CHF Exacerbation Atrial fibrillation (paroxysmal)on chronic anticoagulation therapy Anasarca IDDM2 CROW on CKD 3 Infected lower extremity wounds/osteomyelitis Hypertension Hypothyroidism Gout H/O spinal stroke with paraplegia Anemia Patient presented with worsening shortness of breath, orthopnea, and significant edema. He was found to have an acute CHF exacerbation complicated with A-fib with RVR. Cardiology was consulted. Patient was given IV lasix, amiodarone, metoprolol, eliquis and patient had improvement of his symptoms. His hospitalization was prolonged secondary to slow response to lasix, requiring further uptitration, and due to resistant / intermittent afib with RVR. He eventually began to respond well and diuresis improved. His afib was difficult to manage / maintain consistently. Dr. Mo added cardizem to his amio and metoprolol regimen, and patient converted to sinus rhythm and remained in sinus rhythm with HR: 60s for 24hrs prior to discahrge. On day of discharge patient was feeling better and requesting to be discharged to see his brother that is reportedly in the ICU in [place]. Patient was breathing more comfortably on room air, edema improved, remained in normal sinus rhythm with HR in 60s for >24 hours and deemed stable enough for discharge home. Nephrology recommended continue lasix at 80mg in morning and 40mg in evening. Recommend measuring lower extremities at ~same time each day in morning to track his swelling. Increase second dose to 80mg if needed for worsening swelling / symptoms. During hospitalization, ID was consulted for continued management of left foot osteomyelitis. Patient completed 6 week course of antibiotic treatment from 10/10- 11/21. MRI of the left foot post antibiotic treatment noted "no evidence of underlying osteomyelitis. Central geographic region of signal abnormality in the distal shaft of the tibia, may represent a small bone infarct". He was noted to have some slight purulent appearing drainage during hospitalization which Dr. Dupree managed with local wound care and no further treatment needed. PICC line removed prior to discharge. Recommend continuation of wound care with Dr. Dupree at wound care clinic. During his hospitalization, patient was found to have an CROW secondary to cardiorenal syndrome. Nephrology was consulted. Patient had improvement with diuresis throughout hospitalization. Recommend repeat blood work in 1 week to follow up. Creatinine on discharge: 2.37 Change in Medications: Lasix - 80 mg in the morning and 40 mg at night metoprolol 100 mg BID cardizem 30 mg BID eliquis decreased to 2.5 mg BID Restart amiodarone 200 mg BID Stop taking sotalol Stop taking Amlodipine continue other home medications that are not listed above as previously prescribed Follow up: PCP 3-5 days Cardiology 1-2 weeks Wound clinic - Dr. Dupree in 1 week Nephrology in 1-2 weeks Physical Exam: GEN: Alert, oriented, NAD HEENT: Normal conjunctiva, sclera anicteric CV: regular rate and rhythm, 2+ edema up to knees b/l Pulm: nonlabored respirations on room air, diminished at bases b/l ABD: Soft, nontender, nondistended Neuro: Normal speech, normal affect Vital Signs/Physical Exam: Temp Pulse Resp BP Pulse Ox 97.4 F 57 16 99/61 96 11/21/22 12:00 11/21/22 12:00 11/21/22 12:00 11/21/22 12:00 11/21/22 12:00 Laboratory Data at Discharge: WBC 4.50 thou/uL (4.3-10.9) 11/20/22 02:19 Hgb 8.9 g/dL (13.6-17.9) L 11/20/22 02:19 Hct 26.8 % (39.6-49.0) L 11/20/22 02:19 Plt Count 112 thou/uL (152-406) L 11/20/22 02:19 PT 14.6 SECONDS (9.5-12.5) H 11/09/22 03:52 INR 1.33 11/09/22 03:52 Sodium 136 mEq/L (136-145) 11/21/22 05:00 Potassium 4.6 mEq/L (3.5-5.1) 11/21/22 05:00 BUN 64 mg/dL (7-18) H 11/21/22 05:00 Creatinine 2.37 mg/dL (0.70-1.30) H 11/21/22 05:00 Glucose 145 mg/dL (74-106) H 11/21/22 05:00 Phosphorus 4.6 mg/dL (2.5-4.9) 11/21/22 05:00 Magnesium 1.9 mg/dL (1.6-2.4) 11/09/22 03:52 Total Bilirubin 0.3 mg/dL (0.2-1.0) 11/09/22 03:52 AST 35 U/L (15-37) 11/09/22 03:52 ALT 38 U/L (16-61) 11/09/22 03:52 Alkaline Phosphatase 279 U/L (45-117) H 11/09/22 03:52 Triglycerides Cancelled 11/15/22 Unknown Cholesterol Cancelled 11/15/22 Unknown HDL Cholesterol Cancelled 11/15/22 Unknown Cholesterol/HDL Ratio Cancelled 11/15/22 Unknown Home Medications: RX: Insulin Detemir [Levemir Flextouch] 40 units SQ BID 01/15/21 RX: Levothyroxine Sodium [Euthyrox] 1 tab PO DAILY 01/15/21 RX: Insulin Aspart Prot/Insuln Asp [Novolog Mix 70-30 Flexpen] 30 unit SQ TID 11/22/21 RX: Albuterol Inhaler [Ventolin Inhaler*] 2 puff IH Q4H PRN 08/17/22 RX: Finerenone [Kerendia] 10 mg PO DAILY 08/17/22 RX: Furosemide [Lasix*] 20 mg PO BID 08/17/22 RX: oxyBUTYnin chloride [Oxybutynin Chloride] 5 mg PO DAILY 08/17/22 RX: Apixaban [Eliquis] 5 mg PO BID #60 tab 10/20/22 RX: Fluticasone [Flonase 50MCG Nasal [place]*] 50 mcg MARCOS DAILY 11/09/22 Metoprolol Tartrate [Lopressor] 100 mg PO BID 30 Days #60 tab 11/21/22 RX: Allopurinol 100 mg PO DAILY #0 11/21/22 RX: Amiodarone HCl [Cordarone*] 200 mg PO BID 30 Days #60 tab 11/21/22 RX: Apixaban [Eliquis *] 2.5 mg PO BID 30 Days #60 tab 11/21/22 dilTIAZem HCL [Cardizem] 30 mg PO BID 30 Days #60 tab 11/21/22 New Medications: RX: Allopurinol 100 mg PO DAILY #0 dilTIAZem HCL [Cardizem] 30 mg PO BID 30 Days #60 tab RX: Amiodarone HCl [Cordarone*] 200 mg PO BID 30 Days #60 tab RX: Apixaban [Eliquis *] 2.5 mg PO BID 30 Days #60 tab Metoprolol Tartrate [Lopressor] 100 mg PO BID 30 Days #60 tab Physician Discharge Instructions: Patient presented with worsening shortness of breath, orthopnea, and significant edema. He was found to have an acute CHF exacerbation complicated with A-fib with RVR. Cardiology was consulted. Patient was given IV lasix, amiodarone, metoprolol, eliquis and patient had improvement of his symptoms. His hospitalization was prolonged secondary to slow response to lasix, requiring further uptitration, and due to resistant / intermittent afib with RVR. He eventually began to respond well and diuresis improved. His afib was difficult to manage / maintain consistently. Dr. Mo added cardizem to his amio and metoprolol regimen, and patient converted to sinus rhythm and remained in sinus rhythm with HR: 60s for 24hrs prior to discahrge. On day of discharge patient was feeling better and requesting to be discharged to see his brother that is reportedly in the ICU in [place]. Patient was breathing more comfortably on room air, edema improved, remained in normal sinus rhythm with HR in 60s for >24 hours and deemed stable enough for discharge home. Nephrology recommended continue lasix at 80mg in morning and 40mg in evening. Recommend measuring lower extremities at ~same time each day in morning to track his swelling. Increase second dose to 80mg if needed for worsening swelling / symptoms. During hospitalization, ID was consulted for continued management of left foot osteomyelitis. Patient completed 6 week course of antibiotic treatment from 10/10- 11/21. MRI of the left foot post antibiotic treatment noted "no evidence of underlying osteomyelitis. Central geographic region of signal abnormality in the distal shaft of the tibia, may represent a small bone infarct". He was noted to have some slight purulent appearing drainage during hospitalization which Dr. Dupree managed with local wound care and no further treatment needed. PICC line removed prior to discharge. Recommend continuation of wound care with Dr. Dupree at wound care clinic. During his hospitalization, patient was found to have an CROW secondary to cardiorenal syndrome. Nephrology was consulted. Patient had improvement with diuresis throughout hospitalization. Recommend repeat blood work in 1 week to follow up. Creatinine on discharge: 2.37 Change in Medications: Lasix - 80 mg in the morning and 40 mg at night metoprolol 100 mg BID cardizem 30 mg BID eliquis decreased to 2.5 mg BID Restart amiodarone 200 mg BID Stop taking sotalol Stop taking Amlodipine continue other home medications that are not listed above as previously prescribed Follow up: PCP 3-5 days Cardiology 1-2 weeks Wound clinic - Dr. Dupree in 1 week Nephrology in 1-2 weeks Followup: Ramon Powers MD [Primary Care Provider] - Time spent managing pt's care (in minutes): 45
--- NOTE | 2022-11-21 14:36 | P.PN ---
Subjective Date of Service: 11/21/22 Chief Complaint: bilateral lower extremity wounds Subjective: Other (bedbound) Physical Examination - Vital Signs Temperature: 97.4 F Blood Pressure: 99/61 Pulse: 57 Respirations: 16 Pulse Ox (%): 96 - Physical Exam General: Other (chronically ill-appearing) HEENT: Atraumatic, Normocephalic Neck: Supple Respiratory: Other (symmetric chest expansion) Cardiovascular: No rubs, No murmurs Gastrointestinal: Soft and benign, No rebound Musculoskeletal: No clubbing Integumentary: No warmth Neurological: Normal tone Urinary: Other (no bladder distention) External genitalia: Deferred Rectal: Deferred Assessment And Plan - Plan # CROW likely 2/2 prerenal state/ATN SCr 2.2 on adm, plateauing at 2.4 today Urine chem non prerenal Has subnephrotic proteinuria 3.1g KUB unremarkable on CT CPK wnl, no rhabdo [place] po fluid intake 2L/d # 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 syndrome Baseline serum creatiinine 1.1-1.4 GFR 60-70 as of March 2022 Monitor renal panel # Nephrotic-range proteinuria likely 2/2 DM nephropathy SPEP & KANDACE neg Cont lasix Low Na diet D repletion as below Statin # Acute respi failure 2/2 CHF exacerbation Hx of chronic diastolic HF TTE on 11/08/2022 showed normal LVEF 55-60%, rest of findings unremarkable BNP elevated Lasix Low Na diet 2g/d [place] po fluid intake. Do not limit his by mouth fluid intake unless he develops hyponatremia < 130 meq/L. 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
--- NOTE | 2022-11-23 15:59 | PN ---
Date of Progress Note: 11/21/2022 Subjective: Seen by bedside. He is in sinus rhythm, heart rate is controlled Review of Systems: No chest pain, shortness of breath, orthopnea, cough. No nausea, vomiting, or diarrhea. All other s ystems reviewed, they were negative. Objective: Vital signs: Reviewed. Head and Neck: Pupils are equal, reactive to light. Intact eye movements. No JVD. No cervical lym phadenopathy. Neck: Supple. Thyroid is not enlarged. Lungs: Clear to auscultation bilaterally. No rhonchi, rales, or crackles. No accessory muscle use. Heart: Regular rate and rhythm. No extra sounds. Abdomen: Soft, nontender. Bowel sounds positive. No masses or hernia. No rigidity or rebound. Extremities: No edema, clubbing, cyanosis intact pulses. Skin: No rash. Nose: No exam, alert, awake, and oriented x3. No acute focal deficits appreciated. Investigations: Labs reviewed. Assessment/recommendation: Atrial fibrillation, now is in sinus rhythm. Continue current management . He will probably benefit from an atrial ablation, which were planned for as an outpatient, so we c an take him off the amiodarone. SR/MODL Voice ID: [id number] Report ID: [id number]
== END 2022-11-21 15:21 | disposition home health service (06) | DRG 291 ==
LOC: ER 03:14 → ERHOLD 08:35 → 4TH 19:28 → 3RD-ICU 11-10 10:04 → 2ND 11-12 20:12
PROVIDERS: ADMIT Hospitalist; ATTEND Hospitalist
PROC: 5A09457 Assistance with Respiratory Ventilation, 24-96 Consecutive Hours, Continuous Positive Airway Pressure (ICD-10-PCS; principal; 2022-11-09)
DX: I13.0 Hypertensive heart and chronic kidney disease with heart failure and stage 1 through stage 4 chronic kidney disease, or unspecified chronic kidney disease (principal); E11.00 Type 2 diabetes mellitus with hyperosmolarity without nonketotic hyperglycemic-hyperosmolar coma (NKHHC); I50.43 Acute on chronic combined systolic (congestive) and diastolic (congestive) heart failure; J96.01 Acute respiratory failure with hypoxia; N17.0 Acute kidney failure with tubular necrosis; Z68.41 Body mass index [BMI] 40.0-44.9, adult; I48.20 Chronic atrial fibrillation, unspecified; G82.20 Paraplegia, unspecified; M86.8X6 Other osteomyelitis, lower leg; N25.81 Secondary hyperparathyroidism of renal origin; E87.1 Hypo-osmolality and hyponatremia; L97.419 Non-pressure chronic ulcer of right heel and midfoot with unspecified severity; N18.31 Chronic kidney disease, stage 3a; E11.22 Type 2 diabetes mellitus with diabetic chronic kidney disease; E11.40 Type 2 diabetes mellitus with diabetic neuropathy, unspecified; E11.610 Type 2 diabetes mellitus with diabetic neuropathic arthropathy; E11.621 Type 2 diabetes mellitus with foot ulcer; L97.519 Non-pressure chronic ulcer of other part of right foot with unspecified severity; D63.1 Anemia in chronic kidney disease; E55.9 Vitamin D deficiency, unspecified; D50.9 Iron deficiency anemia, unspecified; M10.9 Gout, unspecified; D69.6 Thrombocytopenia, unspecified; E78.00 Pure hypercholesterolemia, unspecified; E03.9 Hypothyroidism, unspecified; E66.9 Obesity, unspecified; K21.9 Gastro-esophageal reflux disease without esophagitis; Z88.8 Allergy status to other drugs, medicaments and biological substances; Z79.4 Long term (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; Z79.01 Long term (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 anticoagulants; Z79.899 Other long term (current) drug therapy; Z79.890 Hormone replacement therapy; Z20.822 Contact with and (suspected) exposure to COVID-19
CPT/HCPCS: 36415; 71045; 71250; 74176; 80048; 80061; 80069; 80076; 80202; 81001; 82306; 82435; 82550; 82570; 82805; 82947; 83520; 83605; 83735; 83880; 83935; 83970; 84132; 84156; 84165; 84166; 84300; 84439; 84443; 84484; 85025; 85027; 85610; 86334; 86592; 86704; 86706; 86803; 87040; 87340; 87389; 87804; 87811; 93005; 93306; 94660; 96372; 96374; 96375; 99285; J0282; J0696; J1200; J1815; J1940; J2185; J7040; J7050; J7060

== ENCOUNTER 2023-08-11 09:50 | Emergency (ER) | payer MEDICARE ==
[2023-08-11] MEDS ORDERED: ONDANSETRON 4 MG/2 ML VIAL ONE (10:04)
[2023-08-11 10:16] LABS: Absolute Eosinophils 0.3 K/uL (0-0.5); Absolute Lymphocytes (CBC) 1.1 K/uL (0.7-4.9); Absolute Monocytes 0.3 K/uL (0.1-1.3); Absolute Neutrophil 4.4 K/uL (1.8-8.0); Basophils % 0.6 % (0-1.3); Eosinophils % 4.2 % (0-4.4); Hematocrit 32.9 % (39.6-49.0); Lymphocytes % 17.6 % (15.3-44.8); MCHC 33.4 g/dL (32.0-36.0); MPV 9.4 fL (7.6-11.3); Monocytes % 5.6 % (3.3-12.3); Nucleated Red Blood Cells % 0.2 % (0-0); Platelets 140 thou/uL (152-406); RBC Red Blood Cell Count 3.78 M/uL (4.33-5.43); Red Cell Distribution Width 16.8 % (12.1-15.2)
[2023-08-11 10:34] LABS: Albumin 3.3 g/dL (3.4-5.0); Albumin/Globulin Ratio 0.8 (1.1-1.8); Anion Gap 11.1 mEq/L (5.0-15.0); Bilirubin Total 0.3 mg/dL (0.2-1.0); Globulin 4.1 g/dL (2.3-3.5); Potassium 4.1 mEq/L (3.5-5.1); Protein, Total 7.4 g/dL (6.4-8.2)
--- NOTE | 2023-08-11 11:05 | RAD REPORT ---
EXAM DESCRIPTION: RADChest Single View08/11/2023 10:23 am CLINICAL HISTORY: rib pain COMPARISON: Chest Single View dated 02/23/2023; Chest Single View dated 11/12/2022; Chest Single View dated 11/09/2022; Chest Single View dated 10/24/2022 TECHNIQUE: Portable AP view of the chest. FINDINGS: The lungs are clear. No pneumothorax or effusion. The cardiomediastinal contours are unre markable. IMPRESSION: No acute cardiopulmonary process.
--- NOTE | 2023-08-11 11:28 | RAD REPORT ---
EXAM DESCRIPTION: CT - Abdomen Pelvis Wo Contrast - 08/11/2023 10:11 am CLINICAL HISTORY: ABD PAIN COMPARISON: Abdomen Pelvis Wo Contrast dated 04/26/2023; Abdomen Pelvis Wo Contrast dated 10/07/19 23; Stone Protocol dated 12/31/2019; Abdomen Pelvis W Contrast dated 11/20/2018 TECHNIQUE: Thin cut axial CT imaging of the abdomen and pelvis was performed without IV contrast. Mu ltiplanar reformats were generated and reviewed. All CT scans are performed using dose optimization technique as appropriate and may include automated exposure control or mA/KV adjustment according to patient size. FINDINGS: No suspicious findings in the lung bases. The liver, spleen, and pancreas show no suspicious findings. Stable 2 cm right adrenal nodule contain ing macroscopic fat densities peripherally, compatible with a myelolipoma. Gallbladder is partially d ecompressed limiting evaluation, without suspicious findings Symmetric renal contour, without suspicious parenchymal findings within limits of noncontrast techniq ue. No evidence of radiopaque calculi or hydroureteronephrosis. No dilated bowel loops or bowel wall thickening. Mild colonic diverticulosis. Appendix is unremarkabl e. No free air, free fluid or inflammatory stranding. No hernia, mass or bulky lymphadenopathy. The u rinary bladder is decompressed with Valera catheter in place. No suspicious bony findings. Regional left lower anterior abdominal wall skin thickening, without appreciable fluid collections. IMPRESSION: No acute intra-abdominal process. Regional left lower anterior abdominal wall skin thickening, without appreciable fluid collections. Other stable findings as above.
[2023-08-11 11:42] LABS: Specific Gravity 1.011 (1.005-1.030); Sqamous Epithelial <5 /HPF (None Seen); Urine Bacteria 20-50 /HPF (<20); Urine Bilirubin NEGATIVE (Negative); Urine Blood Negative (Negative); Urine Clarity Extremely Turbid (Clear); Urine Color Colorless (Yellow); Urine Culture Reflex Order NOT NEEDED; Urine Glucose 1+ (Negative); Urine Ketones NEGATIVE (Negative); Urine Microscopic Reflex YN ORDER UMIC; Urine Mucus Slight /HPF (None Seen); Urine Nitrite 2+ (Negative); Urine Protein 1+ (Negative); Urine RBC <5 /HPF (None Seen); Urine Triple Phosphate Crystal Moderate /HPF (None Seen); Urine Urobilinogen Normal (Normal); Urine WBC <5 /HPF (<5)
--- NOTE | 2023-08-11 12:22 | ER ---
Nurse's Notes [facility] Name: Ramirez Chaudhari Age: 58 yrs Sex: Male : 1965 Arrival Date: 08/11/2023 Time: 09:50 Bed 4 Private MD: Diagnosis: UTI/ Urinary tract infection, site not specified Presentation: 08/10 09:58 Chief complaint: EMS states: toned out to patient home for diarrhea X 12 hours, burning ld1 with urination, generalized weakness. Coronavirus screen: At this time, the client does not indicate any symptoms associated with coronavirus-19. Ebola Screen: No symptoms or risks identified at this time. Risk Assessment: Do you want to hurt yourself or someone else? Patient reports no desire to harm self or others. Onset of symptoms was August 11, 2023. 09:58 Method Of Arrival: EMS: [facility] ld1 09:58 Acuity: NOHEMI 3 ld1 12:45 Initial Sepsis Screen: Does the patient meet any 2 criteria? No. Patient's initial ld1 sepsis screen is negative. Does the patient have a suspected source of infection? No. Patient's initial sepsis screen is negative. Triage Assessment: 09:59 General: Appears in no apparent distress. comfortable, Behavior is calm, cooperative, ld1 appropriate for age. Pain: Complains of pain in groin Pain does not radiate. Pain currently is 7 out of 10 on a pain scale. Quality of pain is described as burning, Pain began 2-3 days ago. Is intermittent. EENT: No signs and/or symptoms were reported regarding the EENT system. Neuro: Level of Consciousness is awake, alert, obeys commands, Oriented to person, place, time, situation. Cardiovascular: Capillary refill < 3 seconds Patient's skin is warm and dry. Respiratory: Airway is patent Respiratory effort is even, unlabored. GI: Abdomen is round non-distended. GI: Reports diarrhea. : Reports burning with urination. Derm: No signs and/or symptoms reported regarding the dermatologic system. Musculoskeletal: No signs and/or symptoms reported regarding the musculoskeletal system. Historical: - Allergies: 09:57 Ibuprofen; ld1 09:57 metformin; ld1 09:57 Rocephin; ld1 09:57 spironolactone; ld1 09:57 Vancomycin; ld1 09:57 NSAIDS; ld1 - Home Meds: 10:00 Levemir Flexpen subcutaneous 50 50 units 2 times per day [Active]; Fiasp U-100 Insulin ld1 30U TID subcutaneous solution [Active]; furosemide 80 mg Oral tablet 1.5 tabs daily [Active]; nitrofurantoin macrocrystal 100 mg Oral capsule 1 cap once [Active]; levothyroxine 150 mcg capsule 1 cap daily [Active]; sotalol 80 mg Oral tablet 1 tab daily [Active]; Kerendia 10 mg oral tablet 1 tab daily [Active]; allopurinol 100 mg Oral tablet 1 tab once [Active]; [place] 330mg Oral 1 tablet daily [Active]; albuterol sulfate 2 puff 90mcg PRN Oral [Active]; - PMHx: 09:57 ADD/ADHD; AFIB; Congestive heart failure; Diabetes - IDDM; GERD; Gout; High ld1 Cholesterol; Hydrocele Left Testicle; Hypertension; Hypothyroidism; Migraines; Paraplegia; Renal Disease; Spinal Stroke; - Immunization history:: Adult Immunizations up to date. - Infectious Disease History:: Denies. - Social history:: Smoking status: Patient denies any tobacco usage or history of. Screenin:00 [facility] ED Fall Risk Assessment (Adult) History of falling in the last 3 months, ko1 including since admission No falls in past 3 months (0 pts) Confusion or Disorientation No (0 pts) Intoxicated or Sedated No (0 pts) Impaired Gait No (0 pts) Mobility Assist Device Used No (0 pt) Altered Elimination Yes (1 pt) Score/Fall Risk Level 0 - 2 = Low Risk Oriented to surroundings, Maintained a safe environment, Educated pt \T\ family on fall prevention, incl call for assistance when getting out of bed, Assessed \T\ reinforced patient's understanding of fall precautions, Provided non-skid footwear, Hourly rounding (assess needs \T\ fall precautionary measures) done, Used ambulatory aids as needed (educated on \T\ assisted with), Used gait belt as appropriate. Abuse screen: Denies threats or abuse. Denies injuries from another. Nutritional screening: No deficits noted. Tuberculosis screening: No symptoms or risk factors identified. Assessment: 10:30 Reassessment: See triage assessment. General: Appears in no apparent distress. ld1 comfortable, Behavior is calm, cooperative, appropriate for age. 10:30 Neuro: Mcdonough Agitation-Sedation Scale (RASS): 0 - Alert and Calm Level of ld1 Consciousness is awake, alert, obeys commands, Oriented to person, place, time, situation. Vital Signs: 10:06 BP 164 / 82; Pulse 62; Resp 18; Pulse Ox 100% on R/A; ld1 10:30 Pulse 58; Resp 18; Pulse Ox 97% on R/A; ld1 12:39 BP 139 / 86; Pulse 61; Resp 14; Pulse Ox 99% on R/A; ko1 ED Course: 09:57 Patient arrived in ED. ld1 09:57 Pacheco De Souza MD is Attending Physician. ec2 09:59 Triage completed. ld1 10:00 Initial lab(s) drawn, by me, sent to lab. Maintain EMS IV. Dressing intact. Good blood ko1 return noted. Site clean \T\ dry. Gauge \T\ site: 20g left AC. 10:00 Patient has correct armband on for positive identification. Allergy band placed. Fall ko1 risk band placed. Placed in gown. Bed in low position. Call light in reach. Side rails up X2. Provided Education on: call light. Client placed on continuous cardiac and pulse oximetry monitoring. NIBP monitoring applied. air sampling and monitoring on. Door closed. Noise minimized. Lights dimmed. Warm blanket given. Pillow given. Cleaned of incontinence. 10:06 CBC with Diff Sent. ko1 10:06 CMP Sent. ko1 10:06 Lipase Sent. ko1 10:12 CT Abd/Pelvis - Without Contrast In Process Unspecified. EDMS 10:23 Louisa Davenport, NORBERTO is Primary Nurse. ld1 10:25 CXR XRAY In Process Unspecified. EDMS 11:00 Cleaned of incontinence. ko1 11:13 Urinalysis w/ reflexes Sent. ko1 11:30 Urine collected: Valera catheter specimen, clear. ko1 12:41 No provider procedures requiring assistance completed. IV discontinued, intact, ko1 bleeding controlled, No redness/swelling at site. Pressure dressing applied. 12:45 Arm band placed on right wrist. ld1 Administered Medications: 10:06 Drug: Ondansetron IVP 4 mg IVP once; over 2 minutes Route: IVP; Site: left forearm; ko1 10:21 Follow up: Response: No adverse reaction ko1 12:29 Drug: Trimethoprim-Sulfamethoxazole PO (160 mg-800 mg (DS) 1 tablet PO once Route: PO; ko1 12:43 Follow up: Response: No adverse reaction ko1 Medication: 12:39 VIS not applicable for this client. ko1 Outcome: 12:21 Discharge ordered by . ec2 12:45 Discharged to home via wheelchair, with family, ld1 12:45 Condition: stable 12:45 Discharge instructions given to patient, Instructed on discharge instructions, follow up and referral plans. Demonstrated understanding of instructions, follow-up care, medications, Prescriptions given X 1, 12:45 Patient left the ED. ld1 Signatures: Dispatcher [employer] EDLouisa Mccullough RN RN ld1 Socorro Jeff RN RN ko1 Pacheco De Souza MD MD ec2
--- NOTE | 2023-08-11 12:22 | EDPHYS ---
Physician Documentation [facility] Name: Ramirez Chaudhari Age: 58 yrs Sex: Male : 1965 Arrival Date: 08/11/2023 Time: 09:50 Bed 4 Private MD: ED Physician Pacheco De Souza HPI: 08/10 09:58 This 58 yrs old Male presents to ER via Unassigned with complaints of Diarrhea.ec2 09:58 Patient arrives today for 1 day of nausea and diarrhea. Patient reports that he has ec2 been having decreased p.o. intake, has been having bouts of loose stools. Patient reports decreased p.o. intake, associated nausea. Denies any vomiting. Denies any cough or cold symptoms. Denies any fevers. Patient reports no significant abdominal pain.. 09:59 patient also w/ a hx of ckd, not on HD. . ec2 Historical: - Allergies: 09:57 Ibuprofen; ld1 09:57 metformin; ld1 09:57 Rocephin; ld1 09:57 spironolactone; ld1 09:57 Vancomycin; ld1 09:57 NSAIDS; ld1 - Home Meds: 10:00 Levemir Flexpen subcutaneous 50 50 units 2 times per day [Active]; Fiasp U-100 Insulin ld1 30U TID subcutaneous solution [Active]; furosemide 80 mg Oral tablet 1.5 tabs daily [Active]; nitrofurantoin macrocrystal 100 mg Oral capsule 1 cap once [Active]; levothyroxine 150 mcg capsule 1 cap daily [Active]; sotalol 80 mg Oral tablet 1 tab daily [Active]; Kerendia 10 mg oral tablet 1 tab daily [Active]; allopurinol 100 mg Oral tablet 1 tab once [Active]; Cassoday 330mg Oral 1 tablet daily [Active]; albuterol sulfate 2 puff 90mcg PRN Oral [Active]; - PMHx: 09:57 ADD/ADHD; AFIB; Congestive heart failure; Diabetes - IDDM; GERD; Gout; High ld1 Cholesterol; Hydrocele Left Testicle; Hypertension; Hypothyroidism; Migraines; Paraplegia; Renal Disease; Spinal Stroke; - Immunization history:: Adult Immunizations up to date. - Infectious Disease History:: Denies. - Social history:: Smoking status: Patient denies any tobacco usage or history of. ROS: 09:58 Constitutional: as per hpi ec2 Exam: 09:58 Constitutional: GEN: NAD Head: atraumatic Eyes: EOMI Ears: External ears are ec2 normal. CV: regular rate LUNGS: no respiratory distress ABD: non-distended, soft, nontender, not guarding, not rigid. SKIN: no evidence of rashes MSK: no evidence of trauma NEURO: moves all extremities equally Vital Signs: 10:06 BP 164 / 82; Pulse 62; Resp 18; Pulse Ox 100% on R/A; ld1 10:30 Pulse 58; Resp 18; Pulse Ox 97% on R/A; ld1 12:39 BP 139 / 86; Pulse 61; Resp 14; Pulse Ox 99% on R/A; ko1 MDM: 09:57 Patient medically screened. ec2 10:55 Data reviewed: vital signs. ED course: CBC shows a file with appropriate electrolytes, ec2 diminished renal function with a creatinine of 2.54, GFR 29. Lipase minimally elevated at 77 . 10:55 ED course: Patient arrives today for evaluation of diarrhea. Examination remarkable for ec2 well-appearing nontoxic dividual is otherwise in no acute distress with a reassuring examination. Will obtain lab work, urine studies, CT imaging. Differential diagnosis includes gastroenteritis, urinary tract infection, electrolyte disturbances.. 11:28 ED course: Chest x-ray independently reviewed and interpreted by me, shows no acute ec2 intrathoracic process. . 12:16 ED course: Urine is infectious appearing with leuk esterase and nitrates present. CT of ec2 the abdomen pelvis shows no acute intra-abdominal process. . 12:21 ED course: On reassessment patient is well-appearing in no acute distress. Offered ec2 inpatient admission however he declined at this time. Further they could manage at home. Will discharge home, prescribed Bactrim. Return precautions given.. 12:22 ED course: MDM: Differential diagnosis as documented above in ED course; All lab tests ec2 ordered and reviewed as documented above; Independent interpretation of tests: radiograph as above; History gathered from independent historian: Yes; ; Discuss inpatient hospitalization: Yes; . 08/10 09:58 Order name: CBC with Diff; Complete Time: 10:54 ec2 08/10 09:58 Order name: CMP; Complete Time: 10:54 ec2 08/10 09:58 Order name: Lipase; Complete Time: 10:54 ec2 08/10 09:58 Order name: Urinalysis w/ reflexes; Complete Time: 12:15 ec2 08/10 09:58 Order name: CT Abd/Pelvis - Without Contrast; Complete Time: 12:15 ec2 08/10 10:05 Order name: CXR XRAY; Complete Time: 11:28 ec2 08/10 09:58 Order name: IV Saline Lock; Complete Time: 10:02 ec2 08/10 09:58 Order name: Labs collected and sent; Complete Time: 10:06 ec2 Administered Medications: 10:06 Drug: Ondansetron IVP 4 mg IVP once; over 2 minutes Route: IVP; Site: left forearm; ko1 10:21 Follow up: Response: No adverse reaction ko1 12:29 Drug: Trimethoprim-Sulfamethoxazole PO (160 mg-800 mg (DS) 1 tablet PO once Route: PO; ko1 12:43 Follow up: Response: No adverse reaction ko1 Disposition Summary: 08/11/23 12:21 Discharge Ordered Notes: Location: Home ec2 Condition: Stable ec2 Diagnosis - UTI/ Urinary tract infection, site not specified ec2 Followup: ec2 - With: Private Physician - When: - Reason: Recheck today's complaints Discharge Instructions: - Discharge Summary Sheet ec2 - Urinary Tract Infection, Adult ec2 Forms: - Medication Reconciliation Form ec2 - Antibiotic Education ec2 - Prescription Opioid Use ec2 - Patient Portal Instructions ec2 - Leadership Thank You Letter ec2 Prescriptions: - Bactrim DS 800-160 mg Oral Tablet - take 1 tablet ORAL route every 12 hours for 7 days; 14 tablet; Refills: 0, ec2 Product Selection Permitted Signatures: Dispatcher [employer] EDLouisa Mccullough RN RN ld1 Socorro Jeff RN RN ko1 Pacheco De Souza MD MD ec2 Corrections: (The following items were deleted from the chart) 10:05 10:05 Chest Single View+[email or web address] ordered. EDMS EDMS
[2023-08-11] MEDS ORDERED: SMZ./TMP. 800/160 MG TABLET ONE (12:31)
[2023-08-11 13:05] VITALS: BP 139/86; O2SAT 99
== END 2023-08-11 12:45 | disposition home or self-care (01) ==
LOC: ER 09:50
DX: N39.0 Urinary tract infection, site not specified (principal)
CPT/HCPCS: 85025; 81001; 36415; 83690; 80053; 74176; 71045; 96374; 99285; J2405

== ENCOUNTER 2023-10-22 22:52 | Emergency (ER) | payer MEDICARE ==
[2023-10-22] MEDS ORDERED: HYDROCODONE/APAP 5/325 MG TAB ONE (23:35)
[2023-10-22] MEDS ORDERED: ONDANSETRON 4 MG (ODT) TAB ONE (23:35)
[2023-10-22] MEDS ORDERED: AZITHROMYCIN 250 MG TAB ONE (23:35)
[2023-10-22 23:59] LABS: SARS-CoV-2 Antigen CONTROL BLUE LINE VIS/BG OK
[2023-10-23] LABS: SARS-CoV-2 Antigen Rapid Res Positive (Negative)
--- NOTE | 2023-10-23 00:33 | ER ---
Nurse's Notes [facility] Name: Ramirez Chaudhari Age: 58 yrs Sex: Male : 1965 Arrival Date: 10/22/2023 Time: 22:52 Bed 8 Private MD: Diagnosis: Acute COVID 19, Acute pharyngitis Presentation: 10/21 23:12 Chief complaint: Patient states: I have had flu like symptoms for the past 3-4 days jb4 with cough, sore throat, and congestion. Coronavirus screen: At this time, the client does not indicate any symptoms associated with coronavirus-19. Ebola Screen: No symptoms or risks identified at this time. Initial Sepsis Screen: Does the patient meet any 2 criteria? No. Patient's initial sepsis screen is negative. Does the patient have a suspected source of infection? No. Patient's initial sepsis screen is negative. Risk Assessment: Do you want to hurt yourself or someone else? Patient reports no desire to harm self or others. Onset of symptoms was October 19, 2023. Transition of care: patient was not received from another setting of care. 23:12 Method Of Arrival: Wheelchair jb4 23:12 Acuity: NOHEMI 4 jb4 Historical: - Allergies: 23:13 Ibuprofen; jb4 23:13 metformin; jb4 23:13 NSAIDS; jb4 23:13 Rocephin; jb4 23:13 spironolactone; jb4 23:13 Vancomycin; jb4 - PMHx: 23:13 ADD/ADHD; AFIB; Hydrocele Left Testicle; High Cholesterol; Congestive heart failure; jb4 Diabetes - IDDM; Paraplegia; Hypothyroidism; Gout; Renal Disease; GERD; Hypertension; Spinal Stroke; Migraines; - PSHx: 23:13 Cardiac Ablation (S); Spinal SX (S); jb4 - Immunization history:: Adult Immunizations up to date. - Infectious Disease History:: Denies. - Social history:: Smoking status: Patient denies any tobacco usage or history of. - Family history:: not pertinent. Screenin:43 [facility] ED Fall Risk Assessment (Adult) History of falling in the last 3 months, pc2 including since admission No falls in past 3 months (0 pts) Confusion or Disorientation No (0 pts) Intoxicated or Sedated No (0 pts) Impaired Gait Yes (1 pt) Mobility Assist Device Used Yes (1 pt) Altered Elimination No (0 pt) Score/Fall Risk Level 3 or more points = High Risk Oriented to surroundings, Maintained a safe environment, Hourly rounding (assess needs \T\ fall precautionary measures) done. Abuse screen: Denies threats or abuse. Denies injuries from another. Nutritional screening: No deficits noted. Tuberculosis screening: No symptoms or risk factors identified. Assessment: 23:43 General: Appears in no apparent distress. comfortable, obese, Behavior is calm, pc2 cooperative, appropriate for age, Reports feeling ill for 2-3 days. Pain: Complains of pain in throat Pain currently is 9 out of 10 on a pain scale. Aggravated by eating, drinking. Neuro: Level of Consciousness is awake, alert, obeys commands, Oriented to person, place, time, situation. Cardiovascular: Denies chest pain, diaphoresis, fatigue, lightheadedness. Respiratory: Airway is patent Respiratory effort is even, unlabored, Respiratory pattern is regular, symmetrical, Breath sounds are clear bilaterally. GI: Reports nausea. : No signs and/or symptoms were reported regarding the genitourinary system. EENT: Throat is pink. Derm: No signs and/or symptoms reported regarding the dermatologic system. Musculoskeletal: No signs and/or symptoms reported regarding the musculoskeletal system. 10/22 00:32 Reassessment: Patient appears in no apparent distress at this time. No changes from pc2 previously documented assessment. Patient and/or family updated on plan of care and expected duration. Pain level reassessed. Patient is alert, oriented x 3, equal unlabored respirations, skin warm/dry/pink. Vital Signs: 10/21 23:33 BP 148 / 83; Pulse 56; Resp 16; Temp 98.7; Pulse Ox 99% on R/A; vk 23:45 BP 123 / 74; Pulse 56; Resp 18; Pulse Ox 100% on R/A; pc2 Tano Coma Score: 10/22 05:33 Eye Response: spontaneous(4). Motor Response: obeys commands(6). Verbal Response: sp4 oriented(5). Total: 15. ED Course: 10/21 23:03 Patient arrived in ED. ld1 23:09 Nick Ricci MD is Attending Physician. sp4 23:13 Triage completed. jb4 23:17 Arm band placed on right wrist. jb4 23:27 Strep Sent. vk 23:27 SARS RAPID Sent. vk 23:27 Flu Sent. vk 23:27 COVID swab sent to lab. Flu and/or RSV swab sent to lab. Strep swab sent to lab. vk 23:31 Karina Coelho, RN is Primary Nurse. pc2 23:45 Patient has correct armband on for positive identification. Provided Education on: POC pc2 and time frame. 23:45 No provider procedures requiring assistance completed. pc2 08 00:44 Patient did not have IV access during this emergency room visit. pc2 Administered Medications: 10/21 23:40 Drug: Ondansetron PO 4 mg PO once Route: PO; pc2 10/22 00:15 Follow up: Response: No adverse reaction pc2 10/21 23:41 Drug: AZITHromycin PO 500 mg PO once Route: PO; pc2 10/22 00:15 Follow up: Response: No adverse reaction pc2 10/21 23:41 Drug: HYDROcodone-acetaminophen PO 5 mg-325 mg 2 tabs PO once Route: PO; pc2 10/22 00:15 Follow up: Response: No adverse reaction; RASS: Alert and Calm (0) pc2 Medication: 10/21 23:46 VIS not applicable for this client. pc2 Outcome: 08 00:33 Discharge ordered by . sp4 00:43 Discharged to home via wheelchair, with family, pc2 00:43 Condition: stable 00:43 Discharge instructions given to patient, Instructed on discharge instructions, follow up and referral plans. medication usage, Demonstrated understanding of instructions, follow-up care, medications, Prescriptions given X 3, 00:45 Patient left the ED. pc2 Signatures: Jesus Gutierrez, NORBERTO RN jb4 Louisa Davenport RN RN ld1 Nick Ricci MD MD sp4 Sue Garza Pam, RN RN pc2
--- NOTE | 2023-10-23 00:33 | EDPHYS ---
Physician Documentation [facility] Name: Ramirez Chaudhari Age: 58 yrs Sex: Male : 1965 Arrival Date: 10/22/2023 Time: 22:52 Bed 8 Private MD: ED Physician Nick Ricci HPI: 10/21 23:09 This 58 yrs old Male presents to ER via Unassigned with complaints of Cough, sp4 Sore Throat. 10/22 04:13 58-year-old male presents with complaint of a sore throat and cough. Patient has sp4 extensive past medical history including atrial fibrillation, indwelling Valera catheter, chronic immobility, congestive heart failure, paraplegia, wheelchair dependency, high cholesterol, diabetes. Historical: - Allergies: 10/21 23:13 Ibuprofen; jb4 23:13 metformin; jb4 23:13 NSAIDS; jb4 23:13 Rocephin; jb4 23:13 spironolactone; jb4 23:13 Vancomycin; jb4 - PMHx: 23:13 ADD/ADHD; AFIB; Hydrocele Left Testicle; High Cholesterol; Congestive heart failure; jb4 Diabetes - IDDM; Paraplegia; Hypothyroidism; Gout; Renal Disease; GERD; Hypertension; Spinal Stroke; Migraines; - PSHx: 23:13 Cardiac Ablation (S); Spinal SX (S); jb4 - Immunization history:: Adult Immunizations up to date. - Infectious Disease History:: Denies. - Social history:: Smoking status: Patient denies any tobacco usage or history of. - Family history:: not pertinent. ROS: 10/22 04:13 Constitutional: Negative for fever, chills, and weight loss, Positive cough and sore sp4 throat All other systems are negative, Exam: 05:33 Constitutional: This is a well developed, well nourished patient who is awake, sp4 physically debilitated male wheelchair dependent, indwelling Valera catheter, bilateral lower extremity chronic swelling , chronic paraplegia Head/Face: Normocephalic, atraumatic. Eyes: Pupils equal round and reactive to light, extra-ocular motions intact. Lids and lashes normal. Conjunctiva and sclera are not injected. Cornea within normal limits. Periorbital areas with no swelling, redness, or edema. ENT: Nares patent. No nasal discharge, no septal abnormalities noted. Tympanic membranes are normal and external auditory canals are clear. Oropharynx with bilateral pharyngeal redness without exudates Neck: Trachea midline, no thyromegaly or masses palpated, and no cervical lymphadenopathy. Supple, full range of motion without nuchal rigidity, or vertebral point tenderness. Chest/axilla: Normal chest wall appearance and motion. Nontender with no deformity. No lesions are appreciated. Cardiovascular: Regular rate and rhythm with a normal S1 and S2. No gallops, murmurs, or rubs. Normal PMI, no JVD. No pulse deficits. Respiratory: Lungs have equal breath sounds bilaterally, clear to auscultation and percussion. No rales, rhonchi or wheezes noted. No increased work of breathing, no retractions or nasal flaring. Abdomen/GI: Soft, with normal bowel sounds. No distension or tympany. No guarding or rebound. No evidence of tenderness throughout. Back: No spinal tenderness. No costovertebral tenderness. Skin: Warm, dry with normal turgor. Normal color with no rashes, no lesions, and no evidence of cellulitis. MS/ Extremity: Pulses equal, no cyanosis. Neurovascular intact. Full, normal range of motion. Neuro: Awake and alert, GCS 15, oriented to person, place, time, and situation. Cranial nerves II-XII grossly intact. Motor strength 5/5 in all extremities. Sensory grossly intact. Psych: Awake, alert, with orientation to person, place and time. Behavior, mood, and affect are within normal limits Vital Signs: 10/21 23:33 BP 148 / 83; Pulse 56; Resp 16; Temp 98.7; Pulse Ox 99% on R/A; vk 23:45 BP 123 / 74; Pulse 56; Resp 18; Pulse Ox 100% on R/A; pc2 Tano Coma Score: 10/22 05:33 Eye Response: spontaneous(4). Motor Response: obeys commands(6). Verbal Response: sp4 oriented(5). Total: 15. MDM: 10/21 23:23 Patient medically screened. sp4 10/22 05:33 Differential Diagnosis: Obstructed Airway Bronchitis Influenza Sinusitis. Data sp4 reviewed: vital signs, nurses notes, lab test result(s). ED course: Positive for COVID. 10/21 23:17 Order name: Flu; Complete Time: 00:25 jb4 10/21 23:17 Order name: SARS RAPID; Complete Time: 00:25 jb4 10/21 23:17 Order name: Strep; Complete Time: 00:25 jb4 10/22 00:01 Order name: Throat Culture EDMS Administered Medications: 10/21 23:40 Drug: Ondansetron PO 4 mg PO once Route: PO; pc2 10/22 00:15 Follow up: Response: No adverse reaction pc2 10/21 23:41 Drug: AZITHromycin PO 500 mg PO once Route: PO; pc2 10/22 00:15 Follow up: Response: No adverse reaction pc2 10/21 23:41 Drug: HYDROcodone-acetaminophen PO 5 mg-325 mg 2 tabs PO once Route: PO; pc2 10/22 00:15 Follow up: Response: No adverse reaction; RASS: Alert and Calm (0) pc2 Disposition Summary: 10/23/23 00:33 Discharge Ordered Notes: Location: Home sp4 Problem: new sp4 Symptoms: have improved sp4 Condition: Stable sp4 Diagnosis - Acute COVID 19, Acute pharyngitis sp4 Followup: sp4 - With: Private Physician - When: 7 - 10 days - Reason: Recheck today's complaints Discharge Instructions: - Discharge Summary Sheet sp4 - COVID-19 sp4 Forms: - Patient Portal Instructions sp4 Prescriptions: - Paxlovid 300 mg (150 mg x 2)-100 mg Oral Tablet, Dose Pack - take 1 dose pack ORAL route per package directions for 5 days; 1 Pack; Refills: sp4 0, Product Selection Permitted - acetaminophen-codeine 300-60 mg Oral tablet - take 1 tablet ORAL route every 8 hours PRN pain; 20 tablet; Refills: 0, Product sp4 Selection Permitted - Zithromax Z-Brian 250 mg Oral Tablet - take 1 tablet ORAL route as directed for 5 days Day 1 - take two (2) tablets sp4 one time. Day 2, 3, 4 , 5 take one (1) tablet once daily.; 6 tablet; Refills: 0, Product Selection Permitted Signatures: Dispatcher [employer] EDJesus Mclean RN RN jb4 Nick Ricci MD MD sp4 Karina Coelho, RN RN pc2
[2023-10-23 01:06] VITALS: TEMP 98.7
[2023-10-23 01:07] VITALS: BP 123/74; O2SAT 100
== END 2023-10-23 00:45 | disposition home or self-care (01) ==
LOC: ER 22:52
DX: U07.1 COVID-19 (principal)
CPT/HCPCS: 87070; 36415; 87081; 87804 ×2; 99283; 87811; Q0162

== ENCOUNTER 2023-11-01 20:44 | Emergency (ER) | payer MEDICARE ==
[2023-11-01 21:45] LABS: Absolute Eosinophils 0.3 K/uL (0-0.5); Absolute Lymphocytes (CBC) 1.5 K/uL (0.7-4.9); Absolute Monocytes 0.6 K/uL (0.1-1.3); Absolute Neutrophil 5.5 K/uL (1.8-8.0); Basophils % 0.6 % (0-1.3); Eosinophils % 3.7 % (0-4.4); Hematocrit 34.5 % (39.6-49.0); Hemoglobin 11.6 g/dL (13.6-17.9); Lymphocytes % 18.5 % (15.3-44.8); MCH 29.4 pg (27.0-35.0); MCHC 33.6 g/dL (32.0-36.0); MCV 87.5 fL (80-100); MPV 9.4 fL (7.6-11.3); Monocytes % 7.7 % (3.3-12.3); Neutrophils % 69.5 % (41.7-73.7); Nucleated Red Blood Cells % 0.2 % (0-0); Platelets 177 thou/uL (152-406); RBC Red Blood Cell Count 3.95 M/uL (4.33-5.43); Red Cell Distribution Width 16.4 % (12.1-15.2)
[2023-11-01 22:33] LABS: ALT/SGPT 22 U/L (16-61); AST/SGOT 20 U/L (15-37); Albumin 3.5 g/dL (3.4-5.0); Albumin/Globulin Ratio 0.8 (1.1-1.8); Alkaline Phosphatase 121 U/L (45-117); Anion Gap 13.3 mEq/L (5.0-15.0); BUN Blood Urea Nitrogen 64 mg/dL (7-18); Bicarbonate 23 mEq/L (21-32); Bilirubin Total 0.4 mg/dL (0.2-1.0); Globulin 4.4 g/dL (2.3-3.5); Glomerular Filtration Rate 26 ml/min (=/>90); Glucose Level 162 mg/dL (74-106); Potassium 4.3 mEq/L (3.5-5.1); Protein, Total 7.9 g/dL (6.4-8.2); Sodium Level 133 mEq/L (136-145); Troponin High Sensitivity 15.1 pg/mL (<58.9)
[2023-11-01 22:34] LABS: Bilirubin Direct < 0.2 mg/dL (0-0.2); Bilirubin Indirect, Calculated 0.2 mg/dL (0.2-0.8)
--- NOTE | 2023-11-01 22:41 | RAD REPORT ---
EXAM DESCRIPTION: RADChest Single View11/01/2023 9:44 pm CLINICAL HISTORY: CHEST PAIN COMPARISON: Chest Single View dated 09/26/2023; Chest Single View dated 08/11/2023; Chest Single View d ated 02/23/2023; Chest Single View dated 11/12/2022 TECHNIQUE: Portable AP view of the chest. FINDINGS: The lungs are clear. No pneumothorax or effusion. The cardiomediastinal contours are unre markable. IMPRESSION: No acute cardiopulmonary process.
[2023-11-02 01:05] LABS: Specific Gravity 1.017 (1.005-1.030); Sqamous Epithelial <5 /HPF (None Seen); Urine Bacteria <20 /HPF (<20); Urine Bilirubin NEGATIVE (Negative); Urine Blood 1+ (Negative); Urine Clarity Extremely Turbid (Clear); Urine Color Yellow (Yellow); Urine Culture Reflex Order REFLEXED; Urine Glucose NEGATIVE (Negative); Urine Ketones NEGATIVE (Negative); Urine Micro Reflex YN NO BILL MICROSCOPIC; Urine Mucus Slight /HPF (None Seen); Urine Nitrite NEGATIVE (Negative); Urine Protein 2+ (Negative); Urine Urobilinogen 1+ (Normal); Urine WBC >50 /HPF (<5); Urine WBC Clump Occasional /HPF (None Seen); Urine Yeast (Budding) Trace /HPF (None Seen); Urine pH 5.5 (5.0-7.0)
--- NOTE | 2023-11-02 01:47 | ER ---
Nurse's Notes [facility] Name: Ramirez Chaudhari Age: 58 yrs Sex: Male : 1965 Arrival Date: 11/01/2023 Time: 20:44 Bed 8 Private MD: Diagnosis: Hypoglycemia, unspecified Presentation: 10/31 20:46 Chief complaint: EMS states: was called to the house for the patient being unresponsive al5 with low blood sugar of 63. patient was given something to eat and blood sugar came up to 138. patient alert to verbal stimuli and will wake up to talk to him, otherwise patient goes to sleep because he is tired. patient recently diagnosed with covid last week. Coronavirus screen: At this time, the client does not indicate any symptoms associated with coronavirus-19. Ebola Screen: No symptoms or risks identified at this time. Initial Sepsis Screen: Does the patient meet any 2 criteria? No. Patient's initial sepsis screen is negative. Does the patient have a suspected source of infection? No. Patient's initial sepsis screen is negative. Risk Assessment: Do you want to hurt yourself or someone else? Patient reports no desire to harm self or others. Onset of symptoms was November 01, 2023. 20:46 Method Of Arrival: EMS: [facility] al5 20:46 Acuity: NOHEMI 2 al5 20:56 Care prior to arrival: IV initiated. 18 GA, in the right antecubital area. al5 Triage Assessment: 20:53 General: Appears in no apparent distress. Behavior is calm, cooperative. Pain: al5 Complains of pain in abdomen. EENT: No signs and/or symptoms were reported regarding the EENT system. Neuro: Level of Consciousness is alert, obeys commands, alert to verbal stimuli. . Cardiovascular: Patient's skin is warm and dry. Respiratory: Airway is patent Respiratory effort is even, unlabored, Respiratory pattern is regular, symmetrical. GI: Abdomen is round non-distended, Reports lower abdominal pain, upper abdominal pain, diarrhea. : Valera in place. Derm: Skin is intact, Skin is pink, warm \T\ dry. normal. Musculoskeletal: No signs and/or symptoms reported regarding the musculoskeletal system. Historical: - Allergies: 20:49 Ibuprofen; al5 20:49 metformin; al5 20:49 NSAIDS; al5 20:49 Rocephin; al5 20:49 spironolactone; al5 20:49 Vancomycin; al5 - Home Meds: 20:49 allopurinol 100 mg Oral tablet 1 tab once [Active]; nitrofurantoin macrocrystal 100 mg al5 Oral capsule 1 cap once [Active]; sotalol 80 mg Oral tablet 1 tab daily [Active]; levothyroxine 150 mcg capsule 1 cap daily [Active]; furosemide 80 mg Oral tablet 1.5 tabs daily [Active]; Kerendia 10 mg Oral tablet 1 tab daily [Active]; albuterol sulfate 2 puff 90mcg PRN Oral [Active]; Fiasp U-100 Insulin 30U TID subcutaneous solution [Active]; Levemir Flexpen subcutaneous 50 50 units 2 times per day [Active]; [place] 330mg Oral 1 tab daily [Active]; - PMHx: 20:49 ADD/ADHD; AFIB; Congestive heart failure; Diabetes - IDDM; GERD; Gout; High al5 Cholesterol; Hydrocele Left Testicle; Hypertension; Hypothyroidism; Migraines; Paraplegia; Renal Disease; Spinal Stroke; - PSHx: 20:49 Cardiac Ablation; Spinal SX; al5 - Immunization history:: Adult Immunizations up to date. - Infectious Disease History:: Denies. - Social history:: Smoking status: Patient denies any tobacco usage or history of. - Family history:: not pertinent. Screenin:55 [facility] ED Fall Risk Assessment (Adult) History of falling in the last 3 months, al5 including since admission No falls in past 3 months (0 pts) Confusion or Disorientation No (0 pts) Intoxicated or Sedated No (0 pts) Impaired Gait Yes (1 pt) Mobility Assist Device Used Yes (1 pt) Altered Elimination Yes (1 pt) Score/Fall Risk Level 3 or more points = High Risk Oriented to surroundings, Maintained a safe environment, Implemented a Fall Risk Plan of Care. Abuse screen: Denies threats or abuse. Denies injuries from another. Nutritional screening: No deficits noted. Tuberculosis screening: No symptoms or risk factors identified. Assessment: 20:55 General: see triage assessment. al5 21:50 Reassessment: Patient appears in no apparent distress at this time. Patient and/or al5 family updated on plan of care and expected duration. Pain level reassessed. Patient is alert, oriented x 3, equal unlabored respirations, skin warm/dry/pink. patient awake and alert, experiencing diarrhea. 22:59 Reassessment: Patient appears in no apparent distress at this time. No changes from al5 previously documented assessment. Patient and/or family updated on plan of care and expected duration. Pain level reassessed. Patient is alert, oriented x 3, equal unlabored respirations, skin warm/dry/pink. 11/01 00:49 Reassessment: Patient appears in no apparent distress at this time. No changes from al5 previously documented assessment. Patient and/or family updated on plan of care and expected duration. Pain level reassessed. Patient is alert, oriented x 3, equal unlabored respirations, skin warm/dry/pink. Vital Signs: 10/31 20:46 BP 134 / 91; Pulse 59; Resp 16; Temp 98.9; Pulse Ox 98% ; Weight 107.5 kg; Height 5 ft. al5 8 in. ; Pain 0/10; 21:00 BP 103 / 83; Pulse 58; Resp 16; Pulse Ox 98% on R/A; al5 22:00 BP 118 / 84; Pulse 76; Resp 16; Pulse Ox 100% on R/A; al5 22:30 BP 145 / 77; Pulse 55; Resp 16; Pulse Ox 98% on R/A; al5 23:00 BP 130 / 76; Pulse 54; Resp 16; Pulse Ox 97% on R/A; al5 23:30 BP 128 / 78; Pulse 54; Resp 16; Pulse Ox 99% on R/A; al5 11/01 00:00 BP 142 / 99; Pulse 68; Resp 16; Pulse Ox 100% on R/A; al5 10/31 20:46 Body Mass Index 36.03 (107.50 kg, 172.72 cm) al5 10/31 20:46 Pain Scale: Adult al5 ED Course: 10/31 20:46 Patient arrived in ED. al5 20:46 Palomo Mendez MD is Attending Physician. rt 20:49 Triage completed. al5 20:50 Arm band placed on right wrist. Patient placed in the treatment room, on a stretcher. al5 20:56 Patient has correct armband on for positive identification. Bed in low position. Call al5 light in reach. Side rails up X2. Provided Education on: processes and procedures. 20:56 No provider procedures requiring assistance completed. al5 20:56 Maintain EMS IV. Dressing intact. Good blood return noted. Site clean \T\ dry. Gauge \T\ al 5 site: 18G RAC. Flushed with 10 mL NS. 21:13 Latricia Torrez, RN is Primary Nurse. al5 21:46 XRAY Chest (1 view) In Process Unspecified. EDMS 11/01 02:21 IV discontinued, intact, bleeding controlled, No redness/swelling at site. Pressure al5 dressing applied. Administered Medications: No medications were administered Medication: 10/31 20:56 VIS not applicable for this client. al5 Point of Care Testing: Blood Glucose: 20:53 Blood Glucose: 163 mg/dL; al5 Ranges: Outcome: 11/01 01:47 Discharge ordered by . rt 02:21 Discharged to home via wheelchair, with significant other, al5 02:21 Condition: good 02:21 Discharge instructions given to patient, family, Instructed on discharge instructions, follow up and referral plans. Demonstrated understanding of instructions, follow-up care, 02:21 Patient left the ED. al5 Signatures: Dispatcher [employer] EDMS Palomo Mendez MD MD rt Latricia Torrez, NORBERTO RN al5 Corrections: (The following items were deleted from the chart) 10/31 20:53 20:46 Chief complaint: EMS states: was called to the house for the patient being al5 unresponsive with low blood sugar of 63. patient was given something to eat and blood sugar came up to 138. patient alert to verbal stimuli and will wake up to talk to him, otherwise patient goes to sleep because he is tired. al5
--- NOTE | 2023-11-02 01:47 | EDPHYS ---
Physician Documentation [facility] Name: Ramirez Chaudhari Age: 58 yrs Sex: Male : 1965 Arrival Date: 11/01/2023 Time: 20:44 Bed 8 Private MD: ED Physician Palomo Mendez HPI: 10/31 21:45 This 58 yrs old Male presents to ER via EMS with complaints of Low Blood Sugar.rt 21:45 Patient presents to the ED with reported hypoglycemia, altered mental status. Patient rt got food, juice by mouth, resolved the altered mental status. Blood sugar also improved. Reports that he feels somewhat drowsy but denies other acute complaints at this time. Symptoms are moderate in severity, no other aggravating elevating factors.. Historical: - Allergies: 20:49 Ibuprofen; al5 20:49 metformin; al5 20:49 NSAIDS; al5 20:49 Rocephin; al5 20:49 spironolactone; al5 20:49 Vancomycin; al5 - Home Meds: 20:49 allopurinol 100 mg Oral tablet 1 tab once [Active]; nitrofurantoin macrocrystal 100 mg al5 Oral capsule 1 cap once [Active]; sotalol 80 mg Oral tablet 1 tab daily [Active]; levothyroxine 150 mcg capsule 1 cap daily [Active]; furosemide 80 mg Oral tablet 1.5 tabs daily [Active]; Kerendia 10 mg Oral tablet 1 tab daily [Active]; albuterol sulfate 2 puff 90mcg PRN Oral [Active]; Fiasp U-100 Insulin 30U TID subcutaneous solution [Active]; Levemir Flexpen subcutaneous 50 50 units 2 times per day [Active]; [employer] 330mg Oral 1 tab daily [Active]; - PMHx: 20:49 ADD/ADHD; AFIB; Congestive heart failure; Diabetes - IDDM; GERD; Gout; High al5 Cholesterol; Hydrocele Left Testicle; Hypertension; Hypothyroidism; Migraines; Paraplegia; Renal Disease; Spinal Stroke; - PSHx: 20:49 Cardiac Ablation; Spinal SX; al5 - Immunization history:: Adult Immunizations up to date. - Infectious Disease History:: Denies. - Social history:: Smoking status: Patient denies any tobacco usage or history of. - Family history:: not pertinent. ROS: 21:45 Constitutional: Negative for fever, chills, and weight loss, Cardiovascular: Negative rt for chest pain, palpitations, and edema, Respiratory: Negative for shortness of breath, cough, wheezing, and pleuritic chest pain, Abdomen/GI: Negative for abdominal pain, nausea, vomiting, diarrhea, and constipation, MS/Extremity: Negative for injury and deformity, Skin: Negative for injury, rash, and discoloration, 21:45 Neuro: Positive for altered mental status, Negative for syncope, Exam: 21:45 Constitutional: This is a well developed, well nourished patient who is awake, alert, rt and in no acute distress. Head/Face: Normocephalic, atraumatic. Chest/axilla: Normal chest wall appearance and motion. Nontender with no deformity. No lesions are appreciated. Cardiovascular: Regular rate and rhythm with a normal S1 and S2. No gallops, murmurs, or rubs. Normal PMI, no JVD. No pulse deficits. Respiratory: Lungs have equal breath sounds bilaterally, clear to auscultation and percussion. No rales, rhonchi or wheezes noted. No increased work of breathing, no retractions or nasal flaring. Abdomen/GI: Soft, non-tender, with normal bowel sounds. No distension or tympany. No guarding or rebound. No evidence of tenderness throughout. Skin: Warm, dry with normal turgor. Normal color with no rashes, no lesions, and no evidence of cellulitis. MS/ Extremity: Pulses equal, no cyanosis. Neurovascular intact. Full, normal range of motion. Neuro: Awake and alert, GCS 15, oriented to person, place, time, and situation. Cranial nerves II-XII grossly intact. Motor strength 5/5 in all extremities. Sensory grossly intact. Cerebellar exam normal. Normal gait. Vital Signs: 20:46 BP 134 / 91; Pulse 59; Resp 16; Temp 98.9; Pulse Ox 98% ; Weight 107.5 kg; Height 5 ft. al5 8 in. ; Pain 0/10; 21:00 BP 103 / 83; Pulse 58; Resp 16; Pulse Ox 98% on R/A; al5 22:00 BP 118 / 84; Pulse 76; Resp 16; Pulse Ox 100% on R/A; al5 22:30 BP 145 / 77; Pulse 55; Resp 16; Pulse Ox 98% on R/A; al5 23:00 BP 130 / 76; Pulse 54; Resp 16; Pulse Ox 97% on R/A; al5 23:30 BP 128 / 78; Pulse 54; Resp 16; Pulse Ox 99% on R/A; al5 11/01 00:00 BP 142 / 99; Pulse 68; Resp 16; Pulse Ox 100% on R/A; al5 10/31 20:46 Body Mass Index 36.03 (107.50 kg, 172.72 cm) al5 10/31 20:46 Pain Scale: Adult al5 MDM: 10/31 20:47 Patient medically screened. rt 11/01 04:56 Differential diagnosis: Hypoglycemia, infection, dysrhythmia. Data reviewed: vital rt signs, nurses notes, lab test result(s), EKG, radiologic studies. Consideration of Admission/Observation Escalation of care including admission/observation considered. No signs of active infection, urinalysis likely colonized, will send for culture. He is asymptomatic from a urinary standpoint. Patient is maintaining his blood sugar, is asymptomatic in the ED, no indications for admission. Test considered but Not performed: CT: AMS due to hypoglycemia, no head trauma, CT scan of the head not dictated. Care significantly affected by the following chronic conditions: Diabetes. Response to treatment: the patient's symptoms have markedly improved after treatment. 10/31 21:04 Order name: Glucose, Ancillary Testing; Complete Time: 21:06 EDMS 10/31 21:06 Order name: Basic Metabolic Panel; Complete Time: 22:47 rt 10/31 21:06 Order name: CBC with Diff; Complete Time: 22:47 rt 10/31 21:06 Order name: LFT's; Complete Time: 22:47 rt 10/31 21:06 Order name: Magnesium; Complete Time: 22:47 rt 10/31 21:06 Order name: Troponin HS; Complete Time: 22:47 rt 10/31 21:06 Order name: UAM; Complete Time: 01:43 rt 11/01 01:09 Order name: Urine Culture EDSC 10/31 21:06 Order name: XRAY Chest (1 view); Complete Time: 22:47 rt 10/31 21:06 Order name: EKG; Complete Time: 21:07 rt 10/31 21:06 Order name: Cardiac monitoring; Complete Time: 21:14 rt 10/31 21:06 Order name: EKG - Nurse/Tech; Complete Time: 21:14 rt 10/31 21:06 Order name: IV Saline Lock; Complete Time: 21:13 rt 10/31 21:06 Order name: Labs collected and sent; Complete Time: 22:14 rt 10/31 21:06 Order name: O2 Per Protocol; Complete Time: 21:14 rt 10/31 21:06 Order name: O2 Sat Monitoring; Complete Time: 21:14 rt 10/31 21:23 Order name: Valera; Complete Time: 22:06 al5 Administered Medications: No medications were administered Point of Care Testing: Blood Glucose: 10/31 20:53 Blood Glucose: 163 mg/dL; al5 Ranges: Critical Glucose Levels:Adult <50 mg/dl or >400 mg/dl <40 mg/dl or >180 mg/dl Disposition Summary: 11/02/23 01:47 Discharge Ordered Notes: Location: Home rt Problem: new rt Symptoms: are resolved rt Condition: Stable rt Diagnosis - Hypoglycemia, unspecified rt Followup: rt - With: Private Physician - When: 2 - 3 days - Reason: Discharge Instructions: - Discharge Summary Sheet rt - Hypoglycemia rt Forms: - Medication Reconciliation Form rt - Antibiotic Education rt - Prescription Opioid Use rt - Patient Portal Instructions rt - Leadership Thank You Letter rt Signatures: Dispatcher [employer] Palomo Fairbanks MD MD rt Latricia Torrez RN RN al5
[2023-11-02 03:19] VITALS: TEMP 98.9
[2023-11-02 03:29] VITALS: BP 142/99; O2SAT 100
--- NOTE | 2023-11-02 10:00 | EKG ---
Test Date: 2023-11-01 Test Time: 21:00:26 Proof Load Mechanic: IRVING MEASUREMENT RESULTS: Intervals: Rate: 64 MS: QRSD: 116 QT: 444 QTc: 458 [place]: P: MS: QRS: 108 T: 47 INTERPRETIVE STATEMENTS: Normal sinus rhythm Right bundle branch block Abnormal ECG Compared to ECG 09/26/2023 00:25:29 Atrial premature complex(es) no longer present Electronically Signed On 11-02-23 09:59:50 CDT by Dmitri Antunez
== END 2023-11-02 02:21 | disposition home or self-care (01) ==
LOC: ER 20:44
DX: E11.649 Type 2 diabetes mellitus with hypoglycemia without coma (principal); Z79.4 Long term (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; I10 Essential (primary) hypertension; I48.91 Unspecified atrial fibrillation; I50.9 Heart failure, unspecified
CPT/HCPCS: 36415; 71045; 80048; 80076; 81001; 82947; 83735; 84484; 85025; 87077; 87086; 87088; 87186; 93005; 99283

== ENCOUNTER 2023-12-18 11:02 | Emergency (ER) | payer MEDICARE ==
--- NOTE | 2023-12-18 12:18 | RAD REPORT ---
EXAMINATION: CT ABDOMEN AND PELVIS WITHOUT CONTRAST CLINICAL INDICATION: ABD PAIN TECHNIQUE: CT abdomen and pelvis was performed, without IV contrast, as per department protocol. Axia l, sagittal and coronal reconstructions were obtained. One or more of the following dose reduction techniques were used: Automated exposure control, adjustment of the mA and kV according to the patien t size, and iterative reconstruction. Unless otherwise specified, incidental findings do not require dedicated imaging follow-up. COMPARISON: 08/11/2023 FINDINGS: The lack of intravenous contrast limits the sensitivity of this exam for evaluation of solid visceral organs, vascular structures, and retroperitoneum. LOWER CHEST: The visualized lung bases are clear. LIVER: Normal in size and contour. No focal lesion. SPLEEN: Normal size. No focal lesion. PANCREAS: No mass, ductal dilation, or yojana-pancreatic fluid. 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 Unremarkable left adrenal glan d. KIDNEYS AND URETERS: Normal size and contour. No hydronephrosis. URINARY BLADDER: Decompressed by means of Valera catheter. GASTROINTESTINAL TRACT: No evidence of bowel obstruction, significant free fluid, free air or abscess . Prominent sigmoid diverticulosis coli without diverticulitis. Moderate retained stool. APPENDIX: Normal appendix. LYMPH NODES: No lymphadenopathy. MUSCULOSKELETAL: No acute or suspicious osseous abnormality. ADDITIONAL FINDINGS: None. IMPRESSION: No acute or concerning abnormalities in the abdomen or pelvis, with evaluation limited by lack of IV contrast. Moderate stool retention.
[2023-12-18] MEDS ORDERED: ONDANSETRON 4 MG/2 ML VIAL ONE (12:44)
[2023-12-18] MEDS ORDERED: MORPHINE 4 MG/ML SYR ONE (12:45)
[2023-12-18 13:27] LABS: Absolute Eosinophils 0.2 K/uL (0-0.5); Absolute Lymphocytes (CBC) 1.5 K/uL (0.7-4.9); Absolute Monocytes 0.5 K/uL (0.1-1.3); Absolute Neutrophil 4.4 K/uL (1.8-8.0); Basophils % 0.6 % (0-1.3); Eosinophils % 3.2 % (0-4.4); Hematocrit 34.2 % (39.6-49.0); Hemoglobin 11.2 g/dL (13.6-17.9); Lymphocytes % 22.4 % (15.3-44.8); MCH 28.9 pg (27.0-35.0); MCHC 32.8 g/dL (32.0-36.0); MCV 88.2 fL (80-100); MPV 10.3 fL (7.6-11.3); Monocytes % 7.8 % (3.3-12.3); Platelets 168 thou/uL (152-406); RBC Red Blood Cell Count 3.88 M/uL (4.33-5.43); Red Cell Distribution Width 16.3 % (12.1-15.2)
[2023-12-18 13:36] LABS: Albumin 3.4 g/dL (3.4-5.0); Albumin/Globulin Ratio 0.8 (1.1-1.8); Alkaline Phosphatase 147 U/L (45-117); Anion Gap 9.7 mEq/L (5.0-15.0); BUN Blood Urea Nitrogen 53 mg/dL (7-18); Bicarbonate 29 mEq/L (21-32); Bilirubin Total 0.4 mg/dL (0.2-1.0); Globulin 4.2 g/dL (2.3-3.5); Glomerular Filtration Rate 29 ml/min (=/>90); Glucose Level 209 mg/dL (74-106); Lipase 56 U/L (13-75); Potassium 3.7 mEq/L (3.5-5.1); Protein, Total 7.6 g/dL (6.4-8.2); Sodium Level 138 mEq/L (136-145)
[2023-12-18 13:37] LABS: ALT/SGPT < 14 U/L (16-61); AST/SGOT < 10 U/L (15-37)
[2023-12-18 14:17] LABS: Sqamous Epithelial <5 /HPF (None Seen); Transitional Epithelial <5 /HPF (None Seen); Urine Bacteria 20-50 /HPF (<20); Urine Bilirubin NEGATIVE (Negative); Urine Blood Negative (Negative); Urine Clarity Turbid (Clear); Urine Color Light-Yellow (Yellow); Urine Culture Reflex Order REFLEXED; Urine Glucose TRACE (Negative); Urine Ketones NEGATIVE (Negative); Urine Micro Reflex YN NO BILL MICROSCOPIC; Urine Mucus Slight /HPF (None Seen); Urine Nitrite 2+ (Negative); Urine Protein 1+ (Negative); Urine RBC <5 /HPF (None Seen); Urine Urobilinogen Normal (Normal); Urine Yeast (Budding) Many /HPF (None Seen); Urine pH 5.5 (5.0-7.0)
--- NOTE | 2023-12-18 14:40 | EDPHYS ---
Physician Documentation [facility] Name: Ramirez Chaudhari Age: 58 yrs Sex: Male : 1965 Arrival Date: 12/18/2023 Time: 11:02 Bed 24 Private MD: ED Physician Pacheco De Souza HPI: 12/17 11:22 This 58 yrs old Male presents to ER via Wheelchair with complaints of ec2 Abdominal Pain. 11:22 Patient arrives today for evaluation of right upper quadrant abdominal pain. Onset of ec2 last night. Patient reports some associated nausea, no vomiting. No previous abdominal surgeries reported.. Historical: - Allergies: 11:19 Ibuprofen; tm6 11:19 metformin; tm6 11:19 NSAIDS; tm6 11:19 Rocephin; tm6 11:19 spironolactone; tm6 11:19 Vancomycin; tm6 - Home Meds: 13:08 albuterol sulfate 2 puff 90mcg PRN Oral [Active]; allopurinol 100 mg Oral tablet 1 tab tl4 once [Active]; Fiasp U-100 Insulin 30U TID subcutaneous solution [Active]; furosemide 80 mg Oral tablet 1.5 tabs daily [Active]; Kerendia 10 mg Oral tablet 1 tab daily [Active]; Levemir Flexpen subcutaneous 50 50 units 2 times per day [Active]; levothyroxine 150 mcg capsule 1 cap daily [Active]; nitrofurantoin macrocrystal 100 mg Oral capsule 1 cap once [Active]; [place] 330mg Oral 1 tab daily [Active]; sotalol 80 mg Oral tablet 1 tab daily [Active]; - PMHx: 11:19 ADD/ADHD; AFIB; Congestive heart failure; Diabetes - IDDM; GERD; Gout; High tm6 Cholesterol; Hydrocele Left Testicle; Hypertension; Hypothyroidism; Migraines; Paraplegia; Renal Disease; Spinal Stroke; - PSHx: 11:19 Cardiac Ablation; Spinal SX; tm6 - Immunization history:: Client reports having NOT received the Covid vaccine. - Infectious Disease History:: Denies. - Social history:: Smoking status: Patient denies any tobacco usage or history of. Patient/guardian denies using alcohol. ROS: 11:22 Constitutional: as per hpi ec2 Exam: : Constitutional: GEN: NAD Head: atraumatic Eyes: EOMI Ears: External ears are ec2 normal. CV: regular rate LUNGS: no respiratory distress ABD: non-distended, tender in the epigastrium and right upper quadrant, no guarding, nonrigid SKIN: no evidence of rashes MSK: no evidence of trauma Vital Signs: 11:17 BP 119 / 72; Pulse 66; Resp 18; Temp 98.4(O); MAP 84 mmHg; tm6 11:20 Weight 106.59 kg; Height 5 ft. 8 in. ; Pain 10/10; tm6 12:44 BP 111 / 74; Pulse 61; Resp 18; Pulse Ox 99% on R/A; tl4 13:30 BP 116 / 75; Pulse 59; Resp 20; Pulse Ox 97% on R/A; tl4 14:30 BP 120 / 71; Pulse 57; Resp 20; Pulse Ox 98% on R/A; tl4 15:05 BP 114 / 68; Pulse 54; Resp 18; Temp 97.9(O); Pulse Ox 98% on R/A; tl4 11:20 Body Mass Index 35.73 (106.59 kg, 172.72 cm) tm6 11:20 Pain Scale: Adult tm6 MDM: 11:22 Data reviewed: vital signs. ED course: Patient arrives today for evaluation of upper ec2 abdominal pain. Semination remarkable for abdominal pain as noted above. Will obtain labs, CT imaging. Differential clues processes such as otitis, cholecystitis, cholelithiasis. . 12:30 ED course: CT abdomen shows moderate stool. Will start the patient on lactulose.. ec2 13:39 ED course: Metabolic profile shows creatinine of 2.54, similar to previous renal ec2 function. . 14:38 ED course: Urine with infectious markers noted, patient with previous and significant ec2 ciprofloxacin on external chart review. Will prescribe the patient ciprofloxacin and have the patient follow-up with primary care doctor. Return precautions given.. 14:39 Patient medically screened. ec2 12/17 11:21 Order name: CBC with Diff; Complete Time: 13:29 ec2 12/17 11:21 Order name: CMP; Complete Time: 13:39 ec2 12/17 11:21 Order name: Lipase; Complete Time: 13:39 ec2 12/17 13:50 Order name: UAM; Complete Time: 14:38 ec2 12/17 14:22 Order name: Urine Culture EDHI 12/17 11:21 Order name: CT Abd/Pelvis - Without Contrast; Complete Time: 12:30 ec2 12/17 11:21 Order name: IV Saline Lock; Complete Time: 13:05 ec2 12/17 11:21 Order name: Labs collected and sent; Complete Time: 13:05 ec2 Administered Medications: 13:04 Drug: Ondansetron IVP 4 mg IVP once; over 2 minutes Route: IVP; Infused Over: 2 mins; tl4 Site: right forearm; 13:36 Follow up: Response: No adverse reaction tl4 13:05 Drug: morphine IVP or IV 4 mg IVP once over 4 mins Route: IVP; Infused Over: 4 mins; tl4 Site: right forearm; 13:36 Follow up: Response: No adverse reaction; Pain is decreased tl4 15:15 Drug: Ciprofloxacin PO 500 mg PO once Route: PO; tl4 15:29 Follow up: Response: No adverse reaction tl4 Disposition Summary: 12/18/23 14:39 Discharge Ordered Notes: Location: Home ec2 Condition: Stable ec2 Diagnosis - Constipation ec2 - UTI/ Urinary tract infection, site not specified ec2 Followup: ec2 - With: Private Physician - When: - Reason: Re-evaluation by your physician Discharge Instructions: - Discharge Summary Sheet ec2 - Constipation, Adult, [id number] ec2 - Urinary Tract Infection, Adult, [id number] ec2 Forms: - Medication Reconciliation Form ec2 - Antibiotic Education ec2 - Prescription Opioid Use ec2 - Patient Portal Instructions ec2 - Leadership Thank You Letter ec2 Prescriptions: - Lactulose 10 gram/15 mL Oral Solution - take 30 milliliters ORAL route once daily; 300 milliliter; Refills: 0, Product ec2 Selection Permitted - Cipro 500 mg Oral Tablet - take 1 tablet ORAL route every 12 hours for 7 days; 14 tablet; Refills: 0, ec2 Product Selection Permitted Signatures: Dispatcher [employer] Pacheco James MD MD ec2 Ro Bazzi RN RN tm6 Robert Hurtado RN RN tl4 Corrections: (The following items were deleted from the chart) 13: 11:19 PMHx: Diabetes - IDDM; tm6 tl4
--- NOTE | 2023-12-18 14:40 | ER ---
Nurse's Notes [facility] Name: Ramirez Chaudhari Age: 58 yrs Sex: Male : 1965 Arrival Date: 12/18/2023 Time: 11:02 Bed 24 Private MD: Diagnosis: Constipation;UTI/ Urinary tract infection, site not specified Presentation: 12/17 11:18 Chief complaint: Patient states: yesterday evening after eating, abdominal pain RUQ. tm6 Feels very hard. Coronavirus screen: Vaccine status: Patient reports being unvaccinated. Client denies travel out of the [place] in the last 14 days. Ebola Screen: Patient negative for fever greater than or equal to 101.5 degrees Fahrenheit, and additional compatible Ebola Virus Disease symptoms Patient denies exposure to infectious person. Patient denies travel to an Ebola-affected area in the 21 days before illness onset. No symptoms or risks identified at this time. Initial Sepsis Screen: Does the patient meet any 2 criteria? No. Patient's initial sepsis screen is negative. Does the patient have a suspected source of infection? No. Patient's initial sepsis screen is negative. Risk Assessment: Do you want to hurt yourself or someone else? Patient reports no desire to harm self or others. Onset of symptoms was December 17, 2023. 11:18 Method Of Arrival: Wheelchair tm6 11:18 Acuity: NOHEMI 3 tm6 Triage Assessment: 11:19 General: Appears uncomfortable, Behavior is calm, cooperative. Pain: Complains of pain tm6 in right upper quadrant. 11:20 Pain: Pain currently is 10 out of 10 on a pain scale. Pain began 1 day ago. EENT: No tm6 signs and/or symptoms were reported regarding the EENT system. Neuro: Level of Consciousness is awake, alert, obeys commands, Oriented to person, place, time, situation. Cardiovascular: Patient's skin is warm and dry. Respiratory: Airway is patent Respiratory effort is even, unlabored, Respiratory pattern is regular, symmetrical. GI: Abdomen is round Abdomen is tender to palpation in right upper quadrant Reports upper abdominal pain. : No signs and/or symptoms were reported regarding the genitourinary system. Valera in place. Derm: No signs and/or symptoms reported regarding the dermatologic system. Musculoskeletal: No signs and/or symptoms reported regarding the musculoskeletal system. Historical: - Allergies: 11:19 Ibuprofen; tm6 11:19 metformin; tm6 11:19 NSAIDS; tm6 11:19 Rocephin; tm6 11:19 spironolactone; tm6 11:19 Vancomycin; tm6 - Home Meds: 13:08 albuterol sulfate 2 puff 90mcg PRN Oral [Active]; allopurinol 100 mg Oral tablet 1 tab tl4 once [Active]; Fiasp U-100 Insulin 30U TID subcutaneous solution [Active]; furosemide 80 mg Oral tablet 1.5 tabs daily [Active]; Kerendia 10 mg Oral tablet 1 tab daily [Active]; Levemir Flexpen subcutaneous 50 50 units 2 times per day [Active]; levothyroxine 150 mcg capsule 1 cap daily [Active]; nitrofurantoin macrocrystal 100 mg Oral capsule 1 cap once [Active]; [place] 330mg Oral 1 tab daily [Active]; sotalol 80 mg Oral tablet 1 tab daily [Active]; - PMHx: 11:19 ADD/ADHD; AFIB; Congestive heart failure; Diabetes - IDDM; GERD; Gout; High tm6 Cholesterol; Hydrocele Left Testicle; Hypertension; Hypothyroidism; Migraines; Paraplegia; Renal Disease; Spinal Stroke; - PSHx: 11:19 Cardiac Ablation; Spinal SX; tm6 - Immunization history:: Client reports having NOT received the Covid vaccine. - Infectious Disease History:: Denies. - Social history:: Smoking status: Patient denies any tobacco usage or history of. Patient/guardian denies using alcohol. Screenin:07 [facility] ED Fall Risk Assessment (Adult) History of falling in the last 3 months, tl4 including since admission No falls in past 3 months (0 pts) Confusion or Disorientation No (0 pts) Intoxicated or Sedated No (0 pts) Impaired Gait No (0 pts) Mobility Assist Device Used No (0 pt) Altered Elimination No (0 pt) Score/Fall Risk Level 0 - 2 = Low Risk Oriented to surroundings, Maintained a safe environment, Educated pt \T\ family on fall prevention, incl call for assistance when getting out of bed, Assessed \T\ reinforced patient's understanding of fall precautions. Abuse screen: Denies threats or abuse. Denies injuries from another. Nutritional screening: No deficits noted. Tuberculosis screening: No symptoms or risk factors identified. Assessment: 13:05 General: Appears in no apparent distress. Behavior is calm, cooperative. Pain: tl4 Complains of pain in right upper quadrant Pain currently is 10 out of 10 on a pain scale. Quality of pain is described as sharp, shooting, stabbing. Neuro: Level of Consciousness is awake, alert, obeys commands, Oriented to person, place, time, situation, Speech is normal, Facial symmetry appears normal. Cardiovascular: Capillary refill < 3 seconds Patient's skin is warm and dry. Respiratory: Airway is patent Respiratory effort is even, unlabored, Respiratory pattern is regular, symmetrical, Breath sounds are clear bilaterally. GI: Bowel sounds present X 4 quads. Reports upper abdominal pain, Patient currently denies diarrhea, nausea, vomiting. GI: Abd is soft Abdomen is tender to palpation in right upper quadrant. : No signs and/or symptoms were reported regarding the genitourinary system. : Valera in place. EENT: No signs and/or symptoms were reported regarding the EENT system. Derm: No deficits noted. No signs and/or symptoms reported regarding the dermatologic system. Musculoskeletal: No deficits noted. No signs and/or symptoms reported regarding the musculoskeletal system. 15:05 Reassessment: No changes from previously documented assessment. Patient and/or family tl4 updated on plan of care and expected duration. Pain level reassessed. Patient is alert, oriented x 3, equal unlabored respirations, skin warm/dry/pink. Vital Signs: 11:17 BP 119 / 72; Pulse 66; Resp 18; Temp 98.4(O); MAP 84 mmHg; tm6 11:20 Weight 106.59 kg; Height 5 ft. 8 in. ; Pain 10/10; tm6 12:44 BP 111 / 74; Pulse 61; Resp 18; Pulse Ox 99% on R/A; tl4 13:30 BP 116 / 75; Pulse 59; Resp 20; Pulse Ox 97% on R/A; tl4 14:30 BP 120 / 71; Pulse 57; Resp 20; Pulse Ox 98% on R/A; tl4 15:05 BP 114 / 68; Pulse 54; Resp 18; Temp 97.9(O); Pulse Ox 98% on R/A; tl4 11:20 Body Mass Index 35.73 (106.59 kg, 172.72 cm) tm6 11:20 Pain Scale: Adult tm6 ED Course: 11:05 Patient arrived in ED. ra3 11:06 Pacheco De Souza MD is Attending Physician. ec2 11:19 Triage completed. tm6 11:20 Arm band placed on right wrist. tm6 11:46 CT Abd/Pelvis - Without Contrast In Process Unspecified. EDMS 12:39 Robert Hurtado, NORBERTO is Primary Nurse. tl4 13:05 CBC with Diff Sent. tl4 13:05 CMP Sent. tl4 13:05 Lipase Sent. tl4 13:07 Patient has correct armband on for positive identification. Placed in gown. Bed in low tl4 position. Call light in reach. Side rails up X2. Adult w/ patient. Provided Education on: ed process, call adler. Client placed on continuous cardiac and pulse oximetry monitoring. NIBP monitoring applied. Door closed. Noise minimized. Lights dimmed. Moved to private room. Warm blanket given. 13:08 No provider procedures requiring assistance completed. Initial lab(s) drawn, by me, tl4 sent to lab. Inserted saline lock: 22 gauge in right forearm, using aseptic technique. Blood collected. Flushed with 10 mL NS. 14:00 UAM Sent. tl4 14:00 Urine collected: Valera catheter specimen. tl4 15:29 IV discontinued, intact, bleeding controlled, No redness/swelling at site. Pressure tl4 dressing applied. Administered Medications: 13:04 Drug: Ondansetron IVP 4 mg IVP once; over 2 minutes Route: IVP; Infused Over: 2 mins; tl4 Site: right forearm; 13:36 Follow up: Response: No adverse reaction tl4 13:05 Drug: morphine IVP or IV 4 mg IVP once over 4 mins Route: IVP; Infused Over: 4 mins; tl4 Site: right forearm; 13:36 Follow up: Response: No adverse reaction; Pain is decreased tl4 15:15 Drug: Ciprofloxacin PO 500 mg PO once Route: PO; tl4 15:29 Follow up: Response: No adverse reaction tl4 Medication: 13:07 VIS not applicable for this client. tl4 Outcome: 14:39 Discharge ordered by . ec2 15:29 Discharged to home via wheelchair, with family, tl4 15:29 Condition: stable 15:29 Discharge instructions given to patient, family, Instructed on discharge instructions, follow up and referral plans. medication usage, Demonstrated understanding of instructions, follow-up care, medications, Prescriptions given X 2, 15:30 Patient left the ED. tl4 Signatures: Dispatcher [employer] EDPacheco Davenport MD MD ec2 Ro Bazzi RN RN tm6 Robert Hurtado RN RN tl4 Anika Jean ra3 Corrections: (The following items were deleted from the chart) 13:11 11:19 PMHx: Diabetes - IDDM; tm6 tl4
[2023-12-18] MEDS ORDERED: CIPROFLOXACIN HCL 500 MG TAB ONE (15:13)
[2023-12-18 18:13] VITALS: O2SAT 98
[2023-12-18 18:15] VITALS: BP 114/68; TEMP 97.9
== END 2023-12-18 15:30 | disposition home or self-care (01) ==
LOC: ER 11:02
DX: K59.00 Constipation, unspecified (principal); N39.0 Urinary tract infection, site not specified; I10 Essential (primary) hypertension; G82.20 Paraplegia, unspecified; Z28.310 Unvaccinated for COVID-19
CPT/HCPCS: 87088; 85025; 81001; 87086; 36415; 87077; 87186; 83690; 80053; 74176; J2405; 96374; 96375; 99284

== ENCOUNTER 2024-03-08 01:10 | Inpatient (IN) | payer OTHER, MEDICARE ==
[2024-03-08 02:01] LABS: Renal Epithelial <5 /HPF (None Seen); Specific Gravity 1.014 (1.005-1.030); Sqamous Epithelial <5 /HPF (None Seen); Urine Bacteria <20 /HPF (<20); Urine Bilirubin NEGATIVE (Negative); Urine Blood 1+ (Negative); Urine Clarity Turbid (Clear); Urine Color Light-Yellow (Yellow); Urine Culture Reflex Order REFLEXED; Urine Glucose 1+ (Negative); Urine Ketones NEGATIVE (Negative); Urine Microscopic Reflex YN ORDER UMIC; Urine Mucus Slight /HPF (None Seen); Urine Nitrite 1+ (Negative); Urine Protein 1+ (Negative); Urine Urobilinogen Normal (Normal); Urine WBC 20-50 /HPF (<5); Urine Yeast (Budding) Few /HPF (None Seen)
[2024-03-08 02:02] LABS: PT Prothrombin Time 11.5 SECONDS (9.4-12.5); Protime INR 1.03
[2024-03-08 02:03] LABS: Absolute Basophils 0.1 K/uL (0-0.5); Absolute Eosinophils 0.3 K/uL (0-0.5); Absolute Lymphocytes (CBC) 1.5 K/uL (0.7-4.9); Absolute Monocytes 0.4 K/uL (0.1-1.3); Absolute Neutrophil 3.9 K/uL (1.8-8.0); Eosinophils % 5.6 % (0-4.4); Hematocrit 36.4 % (39.6-49.0); Hemoglobin 11.9 g/dL (13.6-17.9); Lymphocytes % 24.2 % (15.3-44.8); MCH 29.2 pg (27.0-35.0); MCHC 32.7 g/dL (32.0-36.0); MCV 89.4 fL (80-100); MPV 10.8 fL (7.6-11.3); Monocytes % 5.9 % (3.3-12.3); Neutrophils % 63.3 % (41.7-73.7); Nucleated Red Blood Cells % 0.1 % (0-0); Platelets 134 thou/uL (152-406); RBC Red Blood Cell Count 4.07 M/uL (4.33-5.43); Red Cell Distribution Width 17.7 % (12.1-15.2)
[2024-03-08 02:15] LABS: ALT/SGPT 25 U/L (16-61); AST/SGOT 19 U/L (15-37); Albumin 3.5 g/dL (3.4-5.0); Albumin/Globulin Ratio 0.9 (1.1-1.8); Alkaline Phosphatase 133 U/L (45-117); Anion Gap 12.3 mEq/L (5.0-15.0); BUN Blood Urea Nitrogen 86 mg/dL (7-18); Bicarbonate 22 mEq/L (21-32); Bilirubin Total 0.4 mg/dL (0.2-1.0); Globulin 3.9 g/dL (2.3-3.5); Glomerular Filtration Rate 24 ml/min (=/>90); Glucose Level 302 mg/dL (74-106); Magnesium 2.2 mg/dL (1.6-2.4); NT PRO-BNP 3645 pg/mL (<125); Potassium 4.3 mEq/L (3.5-5.1); Protein, Total 7.4 g/dL (6.4-8.2); Sodium Level 135 mEq/L (136-145); Troponin High Sensitivity 11.9 pg/mL (<58.9)
[2024-03-08 02:35] LABS: Bilirubin Direct < 0.2 mg/dL (0-0.2); Bilirubin Indirect, Calculated 0.2 mg/dL (0.2-0.8)
[2024-03-08] MEDS ORDERED: Meropenem 1000 MG/VIAL IV ONE (03:08)
[2024-03-08] MEDS ORDERED: INSULIN REGULAR (HUMAN) 100 UNIT/ML ONE ×3 (03:09→13:01)
[2024-03-08] MEDS ORDERED: NA CHLORIDE 0.9% 100 ML ONE ×2 (03:22→09:38)
--- NOTE | 2024-03-08 03:30 | ER ---
Nurse's Notes [facility] Name: Ramirez Chaudhari Age: 58 yrs Sex: Male : 1965 Arrival Date: 03/08/2024 Time: 01:10 Bed 27 Private MD: Diagnosis: UTI/ Urinary tract infection, site not specified;Chronic atrial fibrillation;Sepsis, unspecified organism Presentation: 03/08 01:59 Chief complaint: Spouse and/or significant other states: Bilateral lower extremities ay swelling, Weakness, and CP. Coronavirus screen: Client denies travel out of the [place] in the last 14 days. Ebola Screen: No symptoms or risks identified at this time. Initial Sepsis Screen: Does the patient meet any 2 criteria? No. Patient's initial sepsis screen is negative. Does the patient have a suspected source of infection? No. Patient's initial sepsis screen is negative. Risk Assessment: Do you want to hurt yourself or someone else? Patient reports no desire to harm self or others. Note Pt came in with a c/o SOB, bilateral lower extremities edema, CP. Pt is alert and oriented, on 2 L NC. Hx of spinal stroke - wheelchair bound, indwelling Valera catheter, and paralysed from waist down. Onset of symptoms was March 07, 2024. 01:59 Method Of Arrival: Wheelchair ay 01:59 Acuity: NOHEMI 3 ay Triage Assessment: 02:17 General: Appears in no apparent distress. uncomfortable, Behavior is calm, cooperative. ay Pain: Complains of pain in chest, bilateral lower extremities Pain currently is 9 out of 10 on a pain scale. EENT: No signs and/or symptoms were reported regarding the EENT system. Neuro: Level of Consciousness is awake, alert, obeys commands, Oriented to person, place, situation, Speech is normal. Cardiovascular: Capillary refill < 3 seconds Rhythm is sinus tachycardia. Respiratory: Airway is patent Respiratory effort is even, unlabored, Breath sounds with crackles bilaterally. Breath sounds are diminished bilaterally. GI: Abdomen is distended, Bowel sounds present X 4 quads. : Valera in place Urine is clear. Derm: No signs and/or symptoms reported regarding the dermatologic system. Musculoskeletal: Swelling present in bilateral lower extremities. Historical: - Allergies: 02:15 Ibuprofen; ay 02:15 metformin; ay 02:15 NSAIDS; ay 02:15 Rocephin; ay 02:15 spironolactone; ay 02:15 Vancomycin; ay - Home Meds: 02:15 albuterol sulfate 2 puff 90mcg PRN Oral [Active]; allopurinol 100 mg Oral tablet 1 tab ay once [Active]; Fiasp U-100 Insulin 30U TID subcutaneous solution [Active]; furosemide 80 mg Oral tablet 1.5 tabs daily [Active]; Kerendia 10 mg Oral tablet 1 tab daily [Active]; Levemir Flexpen subcutaneous 50 50 units 2 times per day [Active]; levothyroxine 150 mcg capsule 1 cap daily [Active]; nitrofurantoin macrocrystal 100 mg Oral capsule 1 cap once [Active]; [place] 330mg Oral 1 tab daily [Active]; sotalol 80 mg Oral tablet 1 tab daily [Active]; - PMHx: 02:15 ADD/ADHD; AFIB; Congestive heart failure; GERD; Gout; High Cholesterol; Hydrocele Left ay Testicle; Hypertension; Hypothyroidism; Migraines; Paraplegia; Renal Disease; Spinal Stroke; - PSHx: 02:15 Cardiac Ablation; Spinal SX; ay - Immunization history:: Adult Immunizations unknown. - Infectious Disease History:: Denies. - Social history:: Smoking status: Patient denies any tobacco usage or history of. Screenin:[address] [facility] ED Fall Risk Assessment (Adult) History of falling in the last 3 months, ay including since admission No falls in past 3 months (0 pts) Confusion or Disorientation No (0 pts) Intoxicated or Sedated No (0 pts) Impaired Gait Yes (1 pt) Mobility Assist Device Used Yes (1 pt) Altered Elimination Yes (1 pt) Score/Fall Risk Level 3 or more points = High Risk Oriented to surroundings, Maintained a safe environment, Educated pt \T\ family on fall prevention, incl call for assistance when getting out of bed, Assessed \T\ reinforced patient's understanding of fall precautions. Abuse screen: Denies threats or abuse. Denies injuries from another. Nutritional screening: No deficits noted. Tuberculosis screening: No symptoms or risk factors identified. Assessment: :28 General: See triage assessment. Pain: Pain does not radiate. Pain began 3 hours ago. ay Vital Signs: 01:20 BP 112 / 79; Pulse 129; Resp 20; Temp 97.7; Pulse Ox 97% on 2 lpm NC; ay 01:59 BP 112 / 79; Pulse 129; Resp 20; Temp 97.7; Pulse Ox 97% on 2 lpm NC; ay 02:00 BP 121 / 82; Pulse 125; Resp 20; Pulse Ox 98% on 2 lpm NC; ay ED Course: 01:13 Patient arrived in ED. jj6 01:16 Hank Malone PA is PHCP. cp 01:16 Hank Saunders MD is Attending Physician. cp 01:36 EKG done, by ED staff, reviewed by Hank NETTLES. sa1 01:51 XRAY Chest (1 view) In Process Unspecified. EDMS 01:59 Jerilyn Man, NORBERTO is Primary Nurse. ay 02:15 Triage completed. ay 02:17 Arm band placed on right wrist. Patient placed on oxygen, on parker, on pulse ay oximetry. EKG done per protocol. Performed by ED Staff. Urine obtained. Labs ordered per protocol. Drawn by ED staff. X-ray ordered. 02:18 US Extremity Venous W Compression Jeff In Process Unspecified. EDMS 02:28 No provider procedures requiring assistance completed. Inserted saline lock: 22 gauge ay in right antecubital area, using aseptic technique. Oxygen administration via nasal cannula \T\ 2L/min. 02:28 Patient has correct armband on for positive identification. Bed in low position. Side ay rails up X2. Adult w/ patient. Provided Education on: plan of care. extension edger on. Pulse ox on. NIBP on. 03:28 Donovan Ureña MD is Hospitalizing Provider. cp 04:46 Patient admitted, IV remains in place. al5 Administered Medications: 03:30 Drug: Insulin Regular Human Sub-Q 10 units Sub-Q once {Co-Signature: al5 (kassie Torrez RN).} Route: Sub-Q; Site: right lower abdomen; 03:30 Drug: Meropenem IV 1 grams IV at calculated rate once; (mix in NS 100 mL) Route: IV; ay Rate: calculated rate; Site: right antecubital; 04:30 Follow up: Response: No adverse reaction; IV Status: Completed infusion jl7 03:44 Drug: Sotalol PO 80 mg PO once Route: PO; ay 03:44 Drug: Metoprolol IVP 5 mg IVP once; Hold for SBP <100 or HR <60. Route: IVP; Site: ay right antecubital; Medication: 02:28 VIS not applicable for this client. ay Outcome: 03:29 Decision to Hospitalize by Provider. cp 04:46 Admitted to ER Hold. Please see [facility] for further documentation. al5 04:46 Condition: stable 04:46 Instructed on the need for admit, 15:16 Patient left the ED. jl7 Signatures: Dispatcher [employer] EDMS Hank Malone PA PA cp Leal, Jahala, RN RN jl7 Daya Trujillo Amanda, RN RN al5 Sultan della Real Awudu RN Latricia Lou RN
--- NOTE | 2024-03-08 03:30 | EDPHYS ---
Physician Documentation [facility] Name: Ramirez Chaudhari Age: 58 yrs Sex: Male : 1965 Arrival Date: 03/08/2024 Time: 01:10 Bed 27 Private MD: ED Physician Hank Saunders HPI: 03/08 01:30 This 58 yrs old Male presents to ER via Wheelchair with complaints of Swelling cp of Lower Extremity, Irregular Pulse. 01:30 The patient presents with swelling. The complaints affect the right lower leg. cp 01:30 Onset: The symptoms/episode began/occurred yesterday. Associated signs and symptoms: cp Pertinent positives: palpitations, shortness of breath, Pertinent negatives fever. Treatment prior to arrival includes: took 80 mg Sotalol. Historical: - Allergies: 02:15 Ibuprofen; ay 02:15 metformin; ay 02:15 NSAIDS; ay 02:15 Rocephin; ay 02:15 spironolactone; ay 02:15 Vancomycin; ay - Home Meds: 02:15 albuterol sulfate 2 puff 90mcg PRN Oral [Active]; allopurinol 100 mg Oral tablet 1 tab ay once [Active]; Fiasp U-100 Insulin 30U TID subcutaneous solution [Active]; furosemide 80 mg Oral tablet 1.5 tabs daily [Active]; Kerendia 10 mg Oral tablet 1 tab daily [Active]; Levemir Flexpen subcutaneous 50 50 units 2 times per day [Active]; levothyroxine 150 mcg capsule 1 cap daily [Active]; nitrofurantoin macrocrystal 100 mg Oral capsule 1 cap once [Active]; [place] 330mg Oral 1 tab daily [Active]; sotalol 80 mg Oral tablet 1 tab daily [Active]; - PMHx: 02:15 ADD/ADHD; AFIB; Congestive heart failure; GERD; Gout; High Cholesterol; Hydrocele Left ay Testicle; Hypertension; Hypothyroidism; Migraines; Paraplegia; Renal Disease; Spinal Stroke; - PSHx: 02:15 Cardiac Ablation; Spinal SX; ay - Immunization history:: Adult Immunizations unknown. - Infectious Disease History:: Denies. - Social history:: Smoking status: Patient denies any tobacco usage or history of. ROS: 01:35 Constitutional: Negative for body aches, chills, fever, cp 01:35 Eyes: Negative for injury, pain, redness, and discharge, cp 01:35 Cardiovascular: Positive for chest pain, edema, palpitations, 01:35 Respiratory: Positive for shortness of breath, 01:35 Abdomen/GI: Negative for abdominal pain, vomiting, diarrhea, constipation, 01:35 Neuro: Positive for weakness, Negative for altered mental status, dizziness, headache, syncope, 01:35 All other systems are negative, Exam: 01:33 ECG was reviewed by the Attending Physician. cp 01:40 Constitutional: The patient appears in no acute distress, alert, awake, cp non-diaphoretic, non-toxic, well developed, well nourished, uncomfortable, 01:40 Head/Face: Normocephalic, atraumatic. cp 01:40 Eyes: Periorbital structures: appear normal, Conjunctiva: normal, no exudate, no injection, Sclera: no appreciated abnormality, Lids and lashes: appear normal, bilaterally, 01:40 ENT: External ear(s): are unremarkable, Nose: is normal, Mouth: Lips: moist, Oral mucosa: moist, Posterior pharynx: Airway: no evidence of obstruction, patent, 01:40 Chest/axilla: Inspection: normal, 01:40 Cardiovascular: Rate: tachycardic, Rhythm: irregular, Edema: ankle edema, that is moderate, JVD: is not appreciated, 01:40 Respiratory: the patient does not display signs of respiratory distress, Respirations: normal, no use of accessory muscles, no retractions, labored breathing, is not present, Breath sounds: are clear throughout, no decreased breath sounds, no stridor, no wheezing, 01:40 Abdomen/GI: Inspection: abdomen appears normal, Palpation: abdomen is soft and non-tender, in all quadrants, 01:40 Skin: no rash present. 01:40 Neuro: Orientation: to person, place \T\ time. Mentation: is normal, Motor: moves all fours, strength is normal, Vital Signs: 01:20 BP 112 / 79; Pulse 129; Resp 20; Temp 97.7; Pulse Ox 97% on 2 lpm NC; ay 01:59 BP 112 / 79; Pulse 129; Resp 20; Temp 97.7; Pulse Ox 97% on 2 lpm NC; ay 02:00 BP 121 / 82; Pulse 125; Resp 20; Pulse Ox 98% on 2 lpm NC; ay MDM: 01:16 Medical Screening Exam initiated cp 02:15 Differential diagnosis: dvt, sepsis, uti, cardiac arrhythmia, acute MO. cp 03:33 Data reviewed: vital signs, nurses notes, lab test result(s), EKG, radiologic studies, cp plain films, ultrasound, and as a result, I will admit patient. 03:33 Management of patient was discussed with the following: Hospitalist: DR Ureña will cp admit after discussion. I considered the following discharge prescriptions or medication management in the emergency department Medications were administered in the Emergency Department. See MAR. Independent interpretation of the following test(s) in the Emergency Department EKG: See my EKG interpretation above. Care significantly affected by the following chronic conditions: Congestive Heart Failure. Response to treatment: the patient's symptoms have mildly improved after treatment. 03:52 Post IV fluid administration reassessment for Sepsis: Client not prescribed the 30 cp mL/kg IVF due to: concern for heart failure. Amount of IVF prescribed: 250 Sepsis focused reassessment complete. Heart: Tachycardia noted. Current vital signs reviewed: Yes. 03/08 01:26 Order name: Basic Metabolic Panel 03/08 02:36 Interpretation: Normal except: NA 135; GLUC 302; BUN 86; CRE 2.93; GFR 24. 03/08 01:26 Order name: CBC with Diff; Complete Time: 02:36 03/08 02:36 Interpretation: Normal except: RBC 4.07; HGB 11.9; HCT 36.4; PLT 134; RDW 17.7; cp EOSINOPHIL % 5.6. 03/08 01:26 Order name: LFT's 03/08 02:57 Interpretation: Normal except: ALK 133; GLOB 3.9; A/G 0.9. 03/08 01:26 Order name: Magnesium 03/08 01:26 Order name: NT PRO-BNP 03/08 02:58 Interpretation: Reviewed. 03/08 01:26 Order name: PT-INR; Complete Time: 02:36 03/08 01:26 Order name: Troponin HS 03/08 01:26 Order name: Lactate w/ 2H reflex if indic.; Complete Time: 02:38 03/08 02:38 Interpretation: Reviewed. 03/08 01:26 Order name: Urinalysis w/ reflexes; Complete Time: 02:36 cp 03/08 02:11 Order name: Urine Culture EDCA 03/08 02:39 Order name: Ghost Lactate-NO COLLECT Timer EDCA 03/08 05:30 Order name: CBC with Automated Diff EDCA 03/08 05:30 Order name: CBC with Automated Diff EDCA 03/08 05:30 Order name: Comprehensive Metabolic Panel EDCA 03/08 05:30 Order name: Comprehensive Metabolic Panel EDCA 03/08 05:41 Order name: T4 Free EDCA 03/08 05:41 Order name: Thyroid Stimulating Hormone EDCA 03/08 06:38 Order name: T4 Free EDCA 03/08 06:38 Order name: Thyroid Stimulating Hormone EDCA 03/08 07:26 Order name: Lactate Sepsis 2 HR Follow-up EDCA 03/08 07:56 Order name: Glucose, Ancillary Testing EDCA 03/08 11:41 Order name: Glucose, Ancillary Testing EDCA 03/08 01:26 Order name: XRAY Chest (1 view) 03/08 01:27 Order name: US Extremity Venous W Compression Jeff 03/08 05:30 Order name: CONS Physician Consult EDCA 03/08 01:26 Order name: Cardiac monitoring; Complete Time: 01:36 cp 03/08 01:26 Order name: EKG - Nurse/Tech; Complete Time: 01:36 cp 03/08 01:26 Order name: IV Saline Lock; Complete Time: 04:46 cp 03/08 01:26 Order name: Labs collected and sent; Complete Time: 04:46 cp 03/08 01:26 Order name: O2 Per Protocol; Complete Time: 04:46 cp 03/08 01:26 Order name: O2 Sat Monitoring; Complete Time: 04:46 cp EC:33 Rate is 124 beats/min. Rhythm is irregular. QRS interval is prolonged at 124 msec. QT cp interval is normal. T waves are Inverted in leads III, aVR. Interpreted by me. Reviewed by me. Administered Medications: 03:30 Drug: Insulin Regular Human Sub-Q 10 units Sub-Q once {Co-Signature: al5 (kassie Torrez RN).} Route: Sub-Q; Site: right lower abdomen; 03:30 Drug: Meropenem IV 1 grams IV at calculated rate once; (mix in NS 100 mL) Route: IV; ay Rate: calculated rate; Site: right antecubital; 04:30 Follow up: Response: No adverse reaction; IV Status: Completed infusion jl7 03:44 Drug: Sotalol PO 80 mg PO once Route: PO; ay 03:44 Drug: Metoprolol IVP 5 mg IVP once; Hold for SBP <100 or HR <60. Route: IVP; Site: ay right antecubital; Disposition: 03/09 06:46 Co-signature as Attending Physician, Hank Saunders MD I agree with the assessment and himanshu plan of care. Disposition Summary: 03/08/24 03:29 Hospitalization Ordered Notes: Hospitalization Status: Inpatient Admission cp Provider: Donovan Ureña cp Condition: Fair cp Problem: new cp Symptoms: have improved cp Bed/Room Type: Standard cp Location: Telemetry/MedSurg (observation)(03/08/24 14:18) 6 Room Assignment: [facility](03/08/24 14:18) [facility] Diagnosis - UTI/ Urinary tract infection, site not specified cp - Chronic atrial fibrillation cp - Sepsis, unspecified organism cp Forms: - Medication Reconciliation Form cp - SBAR form cp - Leadership Thank You Letter cp Critical care time excluding procedures: 05:52 Critical care time: Bedside Care: 5 minutes, Consultation: 25 minutes, Family cp Intervention: 5 minutes. Total time: 35 minutes Signatures: Dispatcher [employer] Hank Swartz MD MD cha Page, Corey, PA PA cp Calcote, Vanessa, RN RN vc1 Jeannie Pat bc6 Jerilyn Man RN RN ay Leal, Jahala RN jl7 Latricia Torrez RN al5 Corrections: (The following items were deleted from the chart) 03/08 01: 01:26 BASIC METABOLIC PANEL+C.LAB.BRZ ordered. EDMS EDMS 01:26 CBC+H.LAB.BRZ ordered. EDMS EDMS 01:26 HEPATIC FUNCTION+C.LAB.BRZ ordered. EDMS EDMS 01:26 MAGNESIUM+C.LAB.BRZ ordered. EDMS EDMS 01:26 PROBNP+C.LAB.BRZ ordered. EDMS EDMS 01:26 01:26 PROTIME (+INR)+COAG.LAB.BRZ ordered. EDMS EDMS 01: 01: Troponin High Sensitivity+C.LAB.BRZ ordered. EDMS EDMS : 01:26 LACTATE+C.LAB.BRZ ordered. EDMS EDMS : 01:26 Urinalysis+U.LAB.BRZ ordered. EDMS EDMS : 01:26 Chest Single View+RAD.RAD.BRZ ordered. EDMS EDMS 04:05 03:29 Telemetry/MedSurg (Inpatient) cp vc1 04:05 03:29 cp vc1 14:18 04:05 [facility] ER HOLD vc1 bc6 14:18 04:05 ERHOLD- vc1 bc6
[2024-03-08] MEDS ORDERED: SOTALOL HCL 80 MG TAB ONE ×2 (03:37→07:50)
[2024-03-08] MEDS ORDERED: METOPROLOL TARTRATE 5 MG/5 ML INJ IV ONE (03:38)
--- NOTE | 2024-03-08 05:15 | RAD REPORT ---
EXAM DESCRIPTION: Extrem Venous W Compress Jeff RadLex: US EXTREMITY VEINS BILATERAL CLINICAL HISTORY: 58 years Male; SWELLING TECHNIQUE: Spectral analysis and color/grayscale sonographic images of both legs were obtained utilizing a high- frequency linear array transducer supplemented with color Doppler, compression and augmentation techniques. COMPARISON: None. FINDINGS: Right leg veins: Common femoral: normal Greater saphenous: normal Superficial femoral: normal Popliteal: normal Calf Veins: normal Left leg veins: Common femoral: normal Greater saphenous: normal Superficial femoral: normal Popliteal: normal Calf Veins: normal IMPRESSION: No sonographic evidence for lower extremity deep venous thrombosis in either leg. Electronically signed by: Jethro Patrick MD 03/08/2024 05:07 AM [facility] Z9 Due to temporary technical issues with the PACS/[employer] scribe reporting system, reports are being signed by the in-house radiologist without review as a courtesy to ensure prompt reporting the interpreting radiologist is fully responsible for the content of the report. Transcribed Date/Time: 03/08/2024 5:15 AM
[2024-03-08] MEDS ORDERED: ONDANSETRON 4 MG/2 ML VIAL IV PRN (05:25)
[2024-03-08] MEDS ORDERED: D10W 125 ML IV PRN (05:32)
[2024-03-08] MEDS ORDERED: GLUCAGON 1 MG/VIAL IM PRN (05:32)
--- NOTE | 2024-03-08 05:40 | P.HP ---
Certification for Inpatient Patient admitted to: Observation With expected LOS: <2 Midnights Practitioner: I am a practitioner with admitting privileges, knowledge of patient current condition, hospital course, and medical plan of care. Services: Services provided to patient in accordance with Admission requirements found in Title 42 Section 412.3 of the Code of Federal Regulations Patient History Date of Service: 03/08/24 Reason for admission: SVT feeling weak History of Present Illness: Patient is 58 years of age multiple medical problems his said that he was feeling tired and weak pressure was normal however she found that her heart rate was elevated had an ablation done in November with a diagnosis of atrial flutter and developed lower heart rate subsequently changed to sotalol 80 mg once a day also noticed that he has more swelling of his extremities and abdomen patient is a paraplegic from his past spinal stroke was compliant with his medications has an indwelling Valera seen by Dr. Gibbs Allergies ceftriaxone [From Rocephin] Allergy (Severe, Verified 04/26/23 15:38) Hives/Rash metformin Adverse Reaction (Severe, Verified 08/17/22 02:22) kidney damage ibuprofen Adverse Reaction (Verified 08/17/22 02:22) seecom vancomycin Adverse Reaction (Verified 04/26/23 15:38) Hives/Rash stitches Adverse Reaction (Mild, Uncoded 02/06/20 12:27) Rash Home Medications: Insulin Detemir [Levemir Flextouch] 40 units SQ BID 01/15/21 Levothyroxine Sodium [Euthyrox] 150 mcg PO DAILY 01/15/21 Albuterol Inhaler [Ventolin Inhaler*] 2 puff IH Q4H PRN 08/17/22 Finerenone [Kerendia] 10 mg PO DAILY 08/17/22 Furosemide [Lasix*] 80 mg PO DAILY 08/17/22 oxyBUTYnin chloride [Oxybutynin Chloride] 5 mg PO DAILY 08/17/22 Fluticasone [Flonase 50MCG Nasal [place]*] 50 mcg MARCOS PRN 11/09/22 Allopurinol 100 mg PO DAILY #0 11/21/22 Nitrofurantoin Monohyd/M-Cryst [Macrobid 100 mg Capsule] 100 mg PO DAILY Semaglutide [Ozempic] 0.5 mg SQ Q7D 04/26/23 Sotalol HCl [Betapace*] 80 mg PO DAILY 04/26/23 Aspirin 81 mg PO DAILY 01/22/24 Insulin Aspart (Niacinamide) [Fiasp 100 Unit/ml Flextouch] 30 unit SQ TID 01/22/24 Multivit-Min/Folic/Vit K/Lycop [Men's Daily Formula Tablet] 1 each PO DAILY 01/22/24 Pantoprazole [Protonix Tab] 40 mg PO DAILY 01/22/24 - Past Medical/Surgical History Diabetic: Yes -: Diabetes mellitus type 2, 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 fib on chronic anticoagulation/A. flutter - had ablation -: Crohn's Disease (non active) -: spinal surgery -: 2 hydroceles -: Fistula repair -: Incomplete spinal stroke -: right hand -: cardiac ablation Psychosocial/ Personal History: Patient is disabled, lives at home with his . - Family History Mother -: Hypertension, Diabetes, Stroke Notes: with gangrene leg - Social History Alcohol use: No CD- Drugs: No Caffeine use: Yes Review of Systems 10-point ROS is otherwise unremarkable Physical Examination - Vital Signs Temperature: 97.7 F Blood Pressure: 112/79 Pulse: 129 Respirations: 14 Pulse Ox (%): 97 - Physical Exam General: Unresponsive HEENT: Atraumatic Neck: Supple Respiratory: Clear to auscultation bilaterally Cardiovascular: Edema (Edema of lower extremities), Abnormal S1 S2 Gastrointestinal: Normal bowel sounds, Soft and benign Musculoskeletal: No clubbing, Swelling Integumentary: No rashes, No breakdown Neurological: Other (Patient does not respond to commands) - Studies Laboratory Data (last 24 hrs) 03/08/24 03/08/24 03/08/24 01:40 01:40 01:40 WBC 6.10 Hgb 11.9 L Hct 36.4 L Plt Count 134 L PT 11.5 INR 1.03 Sodium 135 L Potassium 4.3 BUN 86 H Creatinine 2.93 H Glucose 302 H Magnesium 2.2 Total Bilirubin 0.4 AST 19 ALT 25 Alkaline Phosphatase 133 H Assessment and Plan - Problems (Diagnosis) (1) SVT (supraventricular tachycardia) Current Visit: Yes Status: Acute Plan: Patient is 58 years of age with a history of atrial flutter currently on sotalol once a day status post ablation developed SVT and was admitted from the emergency room patient he also has congestive heart failure increasing lower extremity edema mild distention as per has chronic renal failure dwelling Valera catheter intermittent UTI with antibiotics seen by Dr. Gibbs Laboratory data so far no DVT of lower extremities chest x-ray is negative labs include elevated BNP which is 3645 and 86 creatinine 2.93 possible UTI follow-up with results have been isolated in the past patient has allergic to Rocephin admit for observation and monitoring and diuresis start patient on [facility] cardiology consult (2) Sleep apnea Current Visit: Yes Status: Acute Plan: Possible according to the he has symptoms of loud snoring and excessive daytime somnolence but he refuses to have a sleep study done Qualifiers: Primary sleep apnea of type: unspecified type Discharge Plan: Home Plan to discharge in: 24 Hours - Advance Directives Does patient have a Living Will: No Does patient have a Durable POA for Healthcare: No
[2024-03-08] MEDS: SOTALOL HCL 80 MG TAB PO SCH (06:00)
[2024-03-08 06:18] VITALS: BMI 36.5
[2024-03-08] MEDS: INSULIN REGULAR (HUMAN) 100 UNIT/ML SQ SCH (07:30)
[2024-03-08] MEDS ORDERED: CEFTAZIDIME 1 GM VIAL ONE (07:49)
[2024-03-08] MEDS ORDERED: INSULIN GLARGINE 100 UNIT/ML SQ ONE (07:50)
[2024-03-08] MEDS ORDERED: FUROSEMIDE 100 MG/10 ML VIAL IV ONE (07:50)
[2024-03-08] MEDS: SOTALOL HCL 80 MG TAB PO ONE (07:59)
--- NOTE | 2024-03-08 08:19 | RAD REPORT ---
EXAMINATION: Chest Single View CLINICAL HISTORY: weakness COMPARISON: November 09, 2022 FINDINGS: The lungs are clear. There is no pleural effusion or pneumothorax. The cardiomediastinal silhouette i s without acute process. The osseous structures are without acute process. IMPRESSION: No acute process. RECOMMENDATIONS: Electronically signed by: Esdras Prado MD 03/08/2024 08:08 AM [facility] Due to temporary technical issues with the [email or web address] reporting system, reports are being camelia d by the in-house radiologist without review as a courtesy to ensure prompt reporting the interpreting radiologist is fully responsible for the content of the report. Transcribed Date/Time: 03/08/2024 8:19 AM
[2024-03-08] MEDS: INSULIN GLARGINE 100 UNIT/ML SQ SCH (09:00)
[2024-03-08] MEDS ORDERED: PNEUMOCOCCAL VACCINE 0.5 ML IMVAC ONE (09:00)
[2024-03-08] MEDS: FUROSEMIDE 40 MG/4 ML VIAL IV SCH (09:00)
[2024-03-08] MEDS ORDERED: CEFTRIAXONE 1,000 MG in NA CHLORIDE 0.9% 50 ML IVPB SCH (09:00)
[2024-03-08] MEDS: CEFTAZIDIME 1 GM VIAL IV SCH (09:00)
[2024-03-08] MEDS: CEFTAZIDIME 1 GM in NA CHLORIDE 0.9% 100 ML IV SCH (09:35)
--- NOTE | 2024-03-08 10:38 | P.PN ---
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 fib on chronic anticoagulation/A. flutter - had ablation 11/[address] Haynes -: Crohn's Disease (non active) Mr. Chaudhari has multiple medical problems. 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 He is felt weak and tired over the past several days and a urinary tract infection is suspected. Urine was sent for culture. Fortaz was started in anticipation of culture result. Also noted patient in A-fib with RVR. He was given some metoprolol in the emergency department and his sotalol has been restarted. - Physical Exam General: Alert, Oriented x3, Cooperative, no distress HEENT: Atraumatic, Normocephalic Neck: Supple Respiratory: Clear to auscultation bilaterally, Normal air movement Cardiovascular: Mild edema, irregular rate/rhythm, Normal S1 S2 Capillary refill: <2 Seconds Gastrointestinal: Soft and benign, without hepatosplenomegaly, mild distention Musculoskeletal: No clubbing, No swelling Integumentary: No rashes, wound to right plantar surface being treated by Dr. Dupree. Stage II pressure sore to left upper, posterior thigh Neurological: Paraplegic with indwelling Valera catheter (recently changed) Lymphatics: No axilla or inguinal lymphadenopathy
--- NOTE | 2024-03-08 11:41 | P.CNS ---
Date of Consult: 03/08/24 Chief Complaint: SVT feeling weak History of Present Illness: Patient with PMH of heart failure, atrial flutter s/p ablation on 11/2022, presented with generalized weakness, palpitations, denies chest pain but report worsening SOB and Lower extremities edema. Allergies ceftriaxone [From Rocephin] Allergy (Severe, Verified 04/26/23 15:38) Hives/Rash metformin Adverse Reaction (Severe, Verified 08/17/22 02:22) kidney damage ibuprofen Adverse Reaction (Verified 08/17/22 02:22) seecom vancomycin Adverse Reaction (Verified 04/26/23 15:38) Hives/Rash stitches Adverse Reaction (Mild, Uncoded 02/06/20 12:27) Rash Home medications list reviewed: Yes Home Medications: Insulin Detemir [Levemir Flextouch] 40 units SQ BID 01/15/21 Levothyroxine Sodium [Euthyrox] 150 mcg PO DAILY 01/15/21 Albuterol Inhaler [Ventolin Inhaler*] 2 puff IH Q4H PRN 08/17/22 Finerenone [Kerendia] 10 mg PO DAILY 08/17/22 Furosemide [Lasix*] 80 mg PO DAILY 08/17/22 oxyBUTYnin chloride [Oxybutynin Chloride] 5 mg PO DAILY 08/17/22 Fluticasone [Flonase 50MCG Nasal [place]*] 50 mcg MARCOS PRN 11/09/22 Allopurinol 100 mg PO DAILY #0 11/21/22 Nitrofurantoin Monohyd/M-Cryst [Macrobid 100 mg Capsule] 100 mg PO DAILY 4 Semaglutide [Ozempic] 0.5 mg SQ Q7D 04/26/23 Sotalol HCl [Betapace*] 80 mg PO DAILY 04/26/23 Aspirin 81 mg PO DAILY 01/22/24 Insulin Aspart (Niacinamide) [Fiasp 100 Unit/ml Flextouch] 30 unit SQ TID 01/22/24 Multivit-Min/Folic/Vit K/Lycop [Men's Daily Formula Tablet] 1 each PO DAILY 01/22/24 Pantoprazole [Protonix Tab] 40 mg PO DAILY 01/22/24 - Past Medical/Surgical History Diabetic: Yes -: Diabetes mellitus type 2, 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 fib on chronic anticoagulation/A. flutter - had ablation -: Crohn's Disease (non active) -: spinal surgery -: 2 hydroceles -: Fistula repair -: Incomplete spinal stroke -: right hand -: cardiac ablation Psychosocial/ Personal History: Patient is disabled, lives at home with his . - Family History Mother Medical History: Hypertension, Diabetes, Stroke Notes: with gangrene leg - Social History Smoking Status: Unknown if ever smoked Alcohol use: Yes CD- Drugs: No Caffeine use: Yes Review of Systems 10-point ROS is otherwise unremarkable Physical Examination Temp Pulse Resp BP Pulse Ox 97.8 F 130 H 16 103/79 99 03/08/24 06:25 03/08/24 09:00 03/08/24 08:00 03/08/24 09:00 03/08/24 08:00 General: Alert, In no apparent distress HEENT: Atraumatic, PERRLA, Mucous membr. moist/pink, EOMI, Sclerae nonicteric Neck: Supple, 2+ carotid pulse no bruit, No LAD, Without JVD or thyroid abnormality Respiratory: Crackles/rales Cardiovascular: Edema, Irregular heart rate/rhythm Gastrointestinal: Normal bowel sounds, No tenderness Musculoskeletal: No tenderness Integumentary: No rashes Neurological: Normal gait, Normal speech, Normal tone, Normal affect Lymphatics: No axilla or inguinal lymphadenopathy Laboratory Data (last 24 hrs) 03/08/24 03/08/24 03/08/24 01:40 01:40 01:40 WBC 6.10 Hgb 11.9 L Hct 36.4 L Plt Count 134 L PT 11.5 INR 1.03 Sodium 135 L Potassium 4.3 BUN 86 H Creatinine 2.93 H Glucose 302 H Magnesium 2.2 Total Bilirubin 0.4 AST 19 ALT 25 Alkaline Phosphatase 133 H - Problems (1) Atrial fibrillation Current Visit: Yes Status: Acute Plan: Increase Sotalol dose to 80 mg po BID (get EKG after 3rd dose) start metoprolol 25 mg po BID Patient is refusing to be on prison oral anticoagulation so DCCV is not an option continue Lovenox while in patient then switch to ASA 81 mg daily (2) Acute on chronic diastolic heart failure Current Visit: No Status: Acute Plan: switch lasix to 40 mg IV q 8 hours continue to monitor input and output and electrolytes.
[2024-03-09 05:54] LABS: Absolute Eosinophils 0.4 K/uL (0-0.5); Absolute Lymphocytes (CBC) 1.3 K/uL (0.7-4.9); Absolute Monocytes 0.5 K/uL (0.1-1.3); Absolute Neutrophil 3.7 K/uL (1.8-8.0); Basophils % 0.5 % (0-1.3); Eosinophils % 6.7 % (0-4.4); Hematocrit 35.9 % (39.6-49.0); Hemoglobin 12.1 g/dL (13.6-17.9); Lymphocytes % 21.5 % (15.3-44.8); MCH 29.8 pg (27.0-35.0); MCHC 33.6 g/dL (32.0-36.0); MCV 88.6 fL (80-100); MPV 9.8 fL (7.6-11.3); Monocytes % 8.5 % (3.3-12.3); Neutrophils % 62.8 % (41.7-73.7); Platelets 156 thou/uL (152-406); RBC Red Blood Cell Count 4.05 M/uL (4.33-5.43); Red Cell Distribution Width 17.8 % (12.1-15.2)
[2024-03-09 06:15] LABS: Albumin 3.4 g/dL (3.4-5.0); Albumin/Globulin Ratio 0.9 (1.1-1.8); Anion Gap 9.4 mEq/L (5.0-15.0); Bilirubin Total 0.4 mg/dL (0.2-1.0); Globulin 3.8 g/dL (2.3-3.5); Potassium 4.4 mEq/L (3.5-5.1); Protein, Total 7.2 g/dL (6.4-8.2)
[2024-03-09] MEDS: FUROSEMIDE 40 MG/4 ML VIAL IV SCH (08:30)
--- NOTE | 2024-03-09 12:08 | P.PN ---
Date of Service: 03/09/24 Mr. Chaudhari has multiple medical problems. 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 He has felt weak and tired over the past several days and a urinary tract infection is suspected. Urine was sent for culture. Fortaz was started in anticipation of culture result. Also noted patient in A-fib with RVR. He was given some metoprolol in the emergency department and his sotalol has been restarted. Subjective Feeling better today, less fatigue, has not felt palpitations, will obtain EKG post third dose of sotalol this evening at 6 Review of Systems 10-point ROS is otherwise unremarkable General: Unremarkable Eyes: Unremarkable ENT: Unremarkable Respiratory: Unremarkable Cardiovascular: Unremarkable Gastrointestinal: Unremarkable Musculoskeletal: Unremarkable Integumentary: Unremarkable Neurological: Unremarkable Lymphatics: Unremarkable Physical Exam General: Alert, Oriented x3, Cooperative, no distress HEENT: Atraumatic, Normocephalic Neck: Supple Respiratory: Clear to auscultation bilaterally, Normal air movement Cardiovascular: Mild edema, irregular rate/rhythm, Normal S1 S2 Capillary refill: <2 Seconds Gastrointestinal: Soft and benign, without hepatosplenomegaly, mild distention Musculoskeletal: No clubbing, No swelling Integumentary: No rashes, wound to right plantar surface being treated by Dr. Dupree. 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 Dupree for right foot wound Has seen Dr. Badillo in the past for a anal fistula Stage II pressure sore to left upper, posterior thigh VTE/GI prophylaxis Probable discharge after third dose of sotalol this evening If unable to discharge will change to inpatient from Obs
[2024-03-09] MEDS: SOTALOL HCL 80 MG TAB PO SCH (17:29)
[2024-03-09] MEDS: METOPROLOL TAR 25 MG TAB PO SCH (17:29)
[2024-03-10 07:17] LABS: Absolute Eosinophils 0.3 K/uL (0-0.5); Absolute Lymphocytes (CBC) 1.4 K/uL (0.7-4.9); Absolute Monocytes 0.5 K/uL (0.1-1.3); Absolute Neutrophil 4.3 K/uL (1.8-8.0); Basophils % 0.6 % (0-1.3); Eosinophils % 4.7 % (0-4.4); Hematocrit 34.6 % (39.6-49.0); Hemoglobin 11.7 g/dL (13.6-17.9); Lymphocytes % 20.7 % (15.3-44.8); MCH 29.9 pg (27.0-35.0); MCHC 33.7 g/dL (32.0-36.0); MCV 88.7 fL (80-100); Monocytes % 8.1 % (3.3-12.3); Neutrophils % 65.9 % (41.7-73.7); Platelets 141 thou/uL (152-406); RBC Red Blood Cell Count 3.91 M/uL (4.33-5.43); Red Cell Distribution Width 17.8 % (12.1-15.2)
[2024-03-10 07:29] LABS: Albumin 3.1 g/dL (3.4-5.0); Albumin/Globulin Ratio 0.7 (1.1-1.8); Anion Gap 11.5 mEq/L (5.0-15.0); Bilirubin Total 0.3 mg/dL (0.2-1.0); Globulin 4.2 g/dL (2.3-3.5); Potassium 4.5 mEq/L (3.5-5.1); Protein, Total 7.3 g/dL (6.4-8.2)
[2024-03-10] MEDS ORDERED: INSULIN GLARGINE 100 UNIT/ML SQ SCH (09:00)
[2024-03-10] MEDS: DIPHENHYDRAMINE 50 MG/ML VIAL IV SCH (09:05)
[2024-03-10] MEDS: INSULIN GLARGINE 100 UNIT/ML SQ SCH (09:12)
[2024-03-10] MEDS: CEFTRIAXONE 2,000 MG in NA CHLORIDE 0.9% 100 ML IV SCH (09:22)
--- NOTE | 2024-03-10 11:19 | P.PN ---
Subjective Date of Service: 03/10/24 Chief Complaint: SVT feeling weak Subjective: No new changes, No C/O voiced, Tolerating diet, Ambulating, Improving Review of Systems 10-point ROS is otherwise unremarkable Physical Examination - Vital Signs Temperature: 97.6 F Blood Pressure: 117/70 Pulse: 96 Respirations: 20 Pulse Ox (%): 97 - Physical Exam General: Alert, In no apparent distress HEENT: Atraumatic, PERRLA, EOMI Neck: Supple, JVD not distended Respiratory: Clear to auscultation bilaterally, Normal air movement Cardiovascular: Irregular heart rate/rhythm Gastrointestinal: Normal bowel sounds, No tenderness Musculoskeletal: No tenderness Integumentary: No rashes Neurological: Normal speech, Normal tone, Normal affect Lymphatics: No axilla or inguinal lymphadenopathy - Studies Microbiology Data (last 24 hrs): 03/08/24 01:40 Catheterized Urine [place] Count - Final >100,000 CFU/ML. 03/08/24 01:40 Catheterized Urine - Final Enterobacter Cloacae Medications List Reviewed: Yes Assessment And Plan - Current Problems (Diagnosis) (1) Atrial fibrillation Current Visit: Yes Status: Acute Plan: Increase Sotalol dose to 120 mg po BID (get EKG after 3rd dose) continue metoprolol 25 mg po BID Patient is refusing to be on senior living oral anticoagulation so DCCV is not an option continue Lovenox while in patient then switch to ASA 81 mg daily (2) Acute on chronic diastolic heart failure Current Visit: No Status: Acute Plan: continue lasix 40 mg IV q 8 hours continue to monitor input and output and electrolytes.
--- NOTE | 2024-03-10 12:10 | EKG ---
Test Date: 2024-03-08 Test Time: 01:27:27 Pace Analyst: MEASUREMENT RESULTS: Intervals: Rate: 124 KS: QRSD: 124 QT: 350 QTc: 502 [place]: P: KS: QRS: 98 T: -10 INTERPRETIVE STATEMENTS: Atrial fibrillation with rapid ventricular response with premature ventricular or aberrantly conducted complexes Right bundle branch block T wave abnormality, consider lateral ischemia Abnormal ECG Compared to ECG 11/01/2023 21:00:26 Ventricular premature complex(es) now present T-wave abnormality now present Possible ischemia now present Sinus rhythm no longer present Electronically Signed On 03-10-24 12:10:01 FUEL PILOT ENGINEER by Dmitri Antunez
--- NOTE | 2024-03-10 12:38 | P.PN ---
Date of Service: 03/10/24 Mr. Chaudhari has multiple medical problems. 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 He has felt weak and tired over the past several days and a urinary tract infection is suspected. Urine was sent for culture. Fortaz was started in anticipation of culture result. Also noted patient in A-fib with RVR. He was given some metoprolol in the emergency department and his sotalol has been restarted. Pt is not septic. Subjective Feeling better today, has not felt palpitations, EKG post third dose of sotalol with persistent a. fib with RVR Review of Systems 10-point ROS is otherwise unremarkable General: Unremarkable Eyes: Unremarkable ENT: Unremarkable Respiratory: Unremarkable Cardiovascular: Unremarkable Gastrointestinal: Unremarkable Musculoskeletal: Unremarkable Integumentary: Unremarkable Neurological: Unremarkable Lymphatics: Unremarkable Physical Exam General: Alert, Oriented x3, Cooperative, no distress HEENT: Atraumatic, Normocephalic Neck: Supple Respiratory: Clear to auscultation bilaterally, Normal air movement Cardiovascular: Mild edema, irregular rate/rhythm, Normal S1 S2 Capillary refill: <2 Seconds Gastrointestinal: Soft and benign, without hepatosplenomegaly Musculoskeletal: No clubbing, No swelling Integumentary: No rashes, wound to right plantar surface being treated by Dr. Dupree. Stage II pressure sore to left upper, posterior thigh Neurological: Paraplegic with indwelling Valera catheter (recently changed) Lymphatics: No axilla or inguinal lymphadenopathy (1) Atrial fibrillation Current Visit: Yes Status: Acute Plan: Increased Sotalol dose to 80 mg po BID EKG after 3rd dose, remained in a. 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 Creatinine down from 2.93 on admission to 2.47 with increasingly, BUN down from 86-79 and GFR up from 24 to 30 (3) Chronic urinary catheter related infection Current visit: Yes Continue empiric antibiotic Awaiting C&S, + for Enterobacter, sensitive to both ceftazidime and ceftriaxone. Will change to ceftriaxone 2 g IV daily. 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 Dupree for right foot wound Has seen Dr. Badillo in the past for a anal fistula Stage II pressure sore to left upper, posterior thigh VTE/GI prophylaxis Probable discharge after third dose of sotalol this evening If unable to discharge will change to inpatient from Obs
[2024-03-10] MEDS: SOTALOL HCL 80 MG TAB PO SCH (17:24)
[2024-03-10] MEDS ORDERED: SOTALOL HCL 80 MG TAB PO SCH (18:00)
[2024-03-10] MEDS: HYDROMORPHONE HCL 0.5 MG/0.5 ML INJ IV ONE (22:24)
[2024-03-11 04:39] LABS: Absolute Eosinophils 0.4 K/uL (0-0.5); Absolute Lymphocytes (CBC) 0.7 K/uL (0.7-4.9); Absolute Monocytes 0.4 K/uL (0.1-1.3); Absolute Neutrophil 4.9 K/uL (1.8-8.0); Basophils % 0.2 % (0-1.3); Eosinophils % 6.7 % (0-4.4); Hematocrit 33.8 % (39.6-49.0); Hemoglobin 11.5 g/dL (13.6-17.9); Lymphocytes % 10.8 % (15.3-44.8); MCH 30.2 pg (27.0-35.0); MCHC 33.9 g/dL (32.0-36.0); MPV 10.1 fL (7.6-11.3); Monocytes % 6.5 % (3.3-12.3); Neutrophils % 75.8 % (41.7-73.7); Platelets 140 thou/uL (152-406); Red Cell Distribution Width 17.3 % (12.1-15.2)
[2024-03-11 04:45] LABS: Albumin 3.1 g/dL (3.4-5.0); Albumin/Globulin Ratio 0.8 (1.1-1.8); Anion Gap 10.5 mEq/L (5.0-15.0); Bilirubin Total 0.4 mg/dL (0.2-1.0); Globulin 3.8 g/dL (2.3-3.5); Potassium 4.5 mEq/L (3.5-5.1); Protein, Total 6.9 g/dL (6.4-8.2)
[2024-03-11] MEDS: INSULIN GLARGINE 100 UNIT/ML SQ SCH (08:56)
--- NOTE | 2024-03-11 10:16 | P.PN ---
Date of Service: 03/11/24 Mr. Chaudhari has multiple medical problems. 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 He has felt weak and tired over the past several days and a urinary tract infection is suspected. Urine was sent for culture. Fortaz was started in anticipation of culture result. Fortaz switched to Rocephin 03/10/24 as C/S shows the same sensitivy against the growing Enterobacter. Also noted patient in A-fib with RVR - converted to Sinus mann. Pt is not septic. Subjective Feeling better today, has not felt palpitations, EKG post third dose of sotalol with persistent a. fib with RVR Review of Systems 10-point ROS is otherwise unremarkable General: Unremarkable Eyes: Unremarkable ENT: Unremarkable Respiratory: Unremarkable Cardiovascular: Unremarkable Gastrointestinal: Unremarkable Musculoskeletal: Unremarkable Integumentary: Unremarkable Neurological: Unremarkable Lymphatics: Unremarkable Physical Exam General: Alert, Oriented x3, Cooperative, no distress HEENT: Atraumatic, Normocephalic Neck: Supple Respiratory: Clear to auscultation bilaterally, Normal air movement Cardiovascular: Mild edema, regular rate/rhythm on pt's tele bedside monitor, Normal S1 S2, Capillary refill: <2 Seconds Gastrointestinal: Soft and benign, without hepatosplenomegaly Musculoskeletal: No clubbing, No swelling Integumentary: No rashes, wound to right plantar surface being treated by Dr. Dupree. 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 renal function improving back to baseline (3) Chronic urinary catheter related infection Current visit: Yes No Sepsis Continue empiric antibiotic C&S + for Enterobacter, sensitive to both ceftazidime and ceftriaxone, changed to ceftriaxone 2 g IV daily. 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 Dupree for right foot wound Has seen Dr. Badillo in the past for a anal fistula Stage II pressure sore to left upper, posterior thigh VTE/GI prophylaxis Probable discharge after third dose of sotalol this evening status: inpatient
[2024-03-11 10:23] VITALS: O2SAT 97
--- NOTE | 2024-03-11 11:48 | P.PN ---
Subjective Date of Service: 03/11/24 Chief Complaint: SVT feeling weak Subjective: No new changes, No C/O voiced, Tolerating diet, Ambulating, Improving Review of Systems 10-point ROS is otherwise unremarkable Physical Examination - Vital Signs Temperature: 97.7 F Blood Pressure: 109/66 Pulse: 65 Respirations: 14 Pulse Ox (%): 96 - Physical Exam General: Alert, In no apparent distress HEENT: Atraumatic, PERRLA, EOMI Neck: Supple, JVD not distended Respiratory: Clear to auscultation bilaterally, Normal air movement Cardiovascular: Regular rate/rhythm, Normal S1 S2 Gastrointestinal: Normal bowel sounds, No tenderness Musculoskeletal: No tenderness Integumentary: No rashes Neurological: Normal speech, Normal tone, Normal affect Lymphatics: No axilla or inguinal lymphadenopathy - Studies Microbiology Data (last 24 hrs): 03/08/24 01:40 Catheterized Urine [place] Count - Final >100,000 CFU/ML. 03/08/24 01:40 Catheterized Urine - Final Enterobacter Cloacae Medications List Reviewed: Yes Assessment And Plan - Current Problems (Diagnosis) (1) Atrial fibrillation Current Visit: Yes Status: Acute Plan: Patient is currently in sinus rhythm Continue Sotalol 120 mg po BID (get EKG after 3rd dose) continue metoprolol 25 mg po BID Patient is refusing to be on [facility]ci oral anticoagulation so DCCV is not an option continue Lovenox while in patient then switch to ASA 81 mg daily (2) Acute on chronic diastolic heart failure Current Visit: No Status: Acute Plan: switch lasix to 40 mg po BID for 1 week then continue Lasix 40 mg daily start Aldactone 25 mg daily continue to monitor input and output and electrolytes.
[2024-03-11] MEDS: MORPHINE 2 MG/ML SYR IV PRN (20:08)
--- NOTE | 2024-03-12 08:16 | P.DS ---
Admission Date: 03/09/24 Discharge Date: 03/12/24 Disposition: ROUTINE DISCHARGE Discharge Condition: GOOD Reason for Admission: SVT feeling weak Consultations: Dr. Antunez Brief History of Present Illness: Mr. Chaudhari has multiple medical problems. 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 He has felt weak and tired over the past several days and a urinary tract infection is suspected. Urine was sent for culture. Fortaz was started in anticipation of culture result. Also noted patient in A-fib with RVR. He was given some metoprolol in the emergency department and his sotalol has been restarted. Hospital Course: Mr. Chaudhari felt pretty well over the course of his hospitalization; however, a- fib was persistent after a change of sotalol 80 mg to twice daily, metoprolol 25 mg p.o. twice daily was also started. He continued in A-fib with a rate in the 120s to 130s and his sotalol was increased again to 120 mg p.o. twice daily and metoprolol continued. After about 8 hours with his new dosing, his rhythm converted to normal sinus. He was noted to be fluid overloaded and has been receiving Lasix 40 mg IV twice daily. Cardiology is weaning him to 40 mg p.o. twice daily x 1 week and then 40 mg p.o. daily and the addition of Aldactone 25 mg p.o. daily. Secondary to his chronic indwelling Valera, his urine culture grew Enterobacter. Anticipatory antibiotics of ceftazidime continued until culture sensitivities showed de-escalation to ceftriaxone was appropriate. He has completed 4 days of therapy. We will discharge him on cefpodoxime 200 mg p.o. twice daily x 10 days to complete a 14-day course. Mr. Chaudhari has a history of CKD and on admission his creatinine was close to 3 but has trended down to his baseline of 2.4. He is aware his blood sugar has not been optimal and states that he has not been compliant with diet or his medications as thoroughly as usual secondary to the holiday season. He will work towards increased glucose control. He should follow-up with his PCP in 1 week and cardiology in 1 to 2 weeks. Vital Signs/Physical Exam: Temp Pulse Resp BP Pulse Ox 98.4 F 58 16 114/56 L 96 03/12/24 04:00 03/12/24 05:02 03/12/24 04:00 03/12/24 04:00 03/12/24 04:00 General: Alert, In no apparent distress, Oriented x3 HEENT: Atraumatic, Normocephalic Neck: Supple Respiratory: Normal air movement Cardiovascular: No edema, Regular rate/rhythm, Normal S1 S2 Capillary refill: <2 Seconds Gastrointestinal: Normal bowel sounds, No tenderness, No rebound Musculoskeletal: No clubbing, Other (Paraplegia secondary to spinal stroke) Integumentary: Pressure ulcer (Noninfected) Neurological: Normal affect, Abnormal tone Lymphatics: No axilla or inguinal lymphadenopathy Urinary: Valera catheter (Persistent, bag changed twice weekly, catheter changed monthly) External genitalia: Deferred Rectal: Deferred Laboratory Data at Discharge: WBC 6.50 thou/uL (4.3-10.9) 03/11/24 04:09 Hgb 11.5 g/dL (13.6-17.9) L 03/11/24 04:09 Hct 33.8 % (39.6-49.0) L 03/11/24 04:09 Plt Count 140 thou/uL (152-406) L 03/11/24 04:09 PT 11.5 SECONDS (9.4-12.5) 03/08/24 01:40 INR 1.03 03/08/24 01:40 Sodium 140 mEq/L (136-145) 03/11/24 04:09 Potassium 4.5 mEq/L (3.5-5.1) 03/11/24 04:09 BUN 83 mg/dL (7-18) H 03/11/24 04:09 Creatinine 2.40 mg/dL (0.70-1.30) H 03/11/24 04:09 Glucose 171 mg/dL (74-106) H 03/11/24 04:09 Magnesium 2.2 mg/dL (1.6-2.4) 03/08/24 01:40 Total Bilirubin 0.4 mg/dL (0.2-1.0) 03/11/24 04:09 AST 20 U/L (15-37) 03/11/24 04:09 ALT 26 U/L (16-61) 03/11/24 04:09 Alkaline Phosphatase 122 U/L (45-117) H D 03/11/24 04:09 Home Medications: Insulin Detemir [Levemir Flextouch] 40 units SQ BID 01/15/21 Levothyroxine Sodium [Euthyrox] 150 mcg PO DAILY 01/15/21 Albuterol Inhaler [Ventolin Inhaler*] 2 puff IH Q4H PRN 08/17/22 Finerenone [Kerendia] 10 mg PO DAILY 08/17/22 oxyBUTYnin chloride [Oxybutynin Chloride] 5 mg PO DAILY 08/17/22 Allopurinol 100 mg PO DAILY #0 11/21/22 Aspirin 81 mg PO DAILY 01/22/24 Insulin Aspart (Niacinamide) [Fiasp 100 Unit/ml Flextouch] 30 unit SQ TID 01/22/24 Cefpodoxime Proxetil [Vantin] 200 mg PO BID #20 tab 03/12/24 Furosemide [Lasix*] 40 mg PO BIDL #104 tab 03/12/24 Metoprolol Tartrate [Lopressor*] 25 mg PO BID 6AM 6PM #180 tab 03/12/24 Sotalol HCl [Sotalol] 120 mg PO BID 90 Days #180 tab 03/12/24 Spironolactone [Aldactone*] 25 mg PO DAILY #90 tab 03/12/24 New Medications: Spironolactone [Aldactone*] 25 mg PO DAILY #90 tab Furosemide [Lasix*] 40 mg PO BIDL #104 tab Metoprolol Tartrate [Lopressor*] 25 mg PO BID 6AM 6PM #180 tab Sotalol HCl [Sotalol] 120 mg PO BID 90 Days #180 tab Cefpodoxime Proxetil [Vantin] 200 mg PO BID #20 tab Diet: ADA Activity: Ad tadeo Followup: Lavonne Torres, TEACHING AIDE [Primary Care Provider] -
[2024-03-12 09:00] VITALS: BP 129/80; TEMP 98.3
[2024-03-12] MEDS: SPIRONOLACTONE 25 MG TABLET PO SCH (09:20)
[2024-03-12] MEDS: FUROSEMIDE 40 MG TABLET PO SCH (09:21)
== END 2024-03-12 11:07 | disposition home or self-care (01) | DRG 308 ==
LOC: ER 01:10 → ERHOLD 05:25 → 2ND 14:15 → OBSVTOIN 03-09 17:07
PROVIDERS: ADMIT Internal Medicine Sleep Medicine; ATTEND Internal Medicine
DX: I47.10 Supraventricular tachycardia, unspecified (principal); I50.33 Acute on chronic diastolic (congestive) heart failure; T83.511A Infection and inflammatory reaction due to indwelling urethral catheter, initial encounter; N39.0 Urinary tract infection, site not specified; I13.0 Hypertensive heart and chronic kidney disease with heart failure and stage 1 through stage 4 chronic kidney disease, or unspecified chronic kidney disease; G82.20 Paraplegia, unspecified; E11.22 Type 2 diabetes mellitus with diabetic chronic kidney disease; N18.30 Chronic kidney disease, stage 3 unspecified; Z79.4 Long term (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; I48.19 Other persistent atrial fibrillation; Z79.01 Long term (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 anticoagulants; F90.1 Attention-deficit hyperactivity disorder, predominantly hyperactive type; K21.9 Gastro-esophageal reflux disease without esophagitis; M10.9 Gout, unspecified; I25.10 Atherosclerotic heart disease of native coronary artery without angina pectoris; E78.5 Hyperlipidemia, unspecified; E03.9 Hypothyroidism, unspecified; G47.30 Sleep apnea, unspecified; L89.892 Pressure ulcer of other site, stage 2; N31.9 Neuromuscular dysfunction of bladder, unspecified; B96.89 Other specified bacterial agents as the cause of diseases classified elsewhere
CPT/HCPCS: 36415; 71045; 80048; 80053; 80076; 81001; 82947; 83605; 83735; 83880; 84439; 84443; 84484; 85025; 85610; 87077; 87086; 87088; 87186; 93005; 93970; 94760; 96365; 96372; 96375; 99285; G0378; J0696; J0713; J1171; J1200; J1940; J2185; J2270

== ENCOUNTER 2024-05-21 20:06 | Emergency (ER) | payer OTHER ==
--- NOTE | 2024-05-21 20:56 | RAD REPORT ---
EXAMINATION: ONE VIEW CHEST XR CLINICAL INDICATION: SOB TECHNIQUE: Frontal chest projection is submitted. Examination is limited by patient positioning and t echnique. COMPARISON: 03/08/2024 FINDINGS: The lungs are grossly clear. The heart is upper limit of normal in size. No displaced fractures ident ified. IMPRESSION: No acute intrathoracic abnormalities.
[2024-05-21 21:40] LABS: Absolute Eosinophils 0.2 K/uL (0-0.5); Absolute Lymphocytes (CBC) 1.5 K/uL (0.7-4.9); Absolute Monocytes 0.4 K/uL (0.1-1.3); Absolute Neutrophil 4.1 K/uL (1.8-8.0); Basophils % 0.6 % (0-1.3); Eosinophils % 3.9 % (0-4.4); Hematocrit 34.6 % (39.6-49.0); Hemoglobin 11.5 g/dL (13.6-17.9); Lymphocytes % 23.5 % (15.3-44.8); MCH 29.4 pg (27.0-35.0); MCHC 33.3 g/dL (32.0-36.0); MCV 88.3 fL (80-100); MPV 9.2 fL (7.6-11.3); Monocytes % 7.1 % (3.3-12.3); Neutrophils % 64.9 % (41.7-73.7); Nucleated Red Blood Cells % 0.2 % (0-0); Platelets 190 thou/uL (152-406); RBC Red Blood Cell Count 3.92 M/uL (4.33-5.43); Red Cell Distribution Width 15.3 % (12.1-15.2)
[2024-05-21 21:46] LABS: PT Prothrombin Time 11.4 SECONDS (10-13.0)
[2024-05-21 22:00] LABS: ALT/SGPT 24 U/L (16-61); AST/SGOT 16 U/L (15-37); Albumin 3.1 g/dL (3.4-5.0); Albumin/Globulin Ratio 0.7 (1.1-1.8); Alkaline Phosphatase 157 U/L (45-117); Anion Gap 9.3 mEq/L (5.0-15.0); BUN Blood Urea Nitrogen 62 mg/dL (7-18); Bicarbonate 30 mEq/L (21-32); Bilirubin Total 0.3 mg/dL (0.2-1.0); Globulin 4.3 g/dL (2.3-3.5); Glomerular Filtration Rate 34 ml/min (=/>90); Glucose Level 181 mg/dL (74-106); Magnesium 2.3 mg/dL (1.6-2.4); NT PRO-BNP 788 pg/mL (<125); Potassium 4.3 mEq/L (3.5-5.1); Protein, Total 7.4 g/dL (6.4-8.2); Sodium Level 137 mEq/L (136-145); Troponin High Sensitivity 13.9 pg/mL (<58.9)
[2024-05-21 22:02] LABS: Influenza A Ag Negative; Influenza B Ag Negative; SARS-CoV-2 Antigen Rapid Res Negative (Negative)
[2024-05-21 22:03] LABS: Bilirubin Direct < 0.2 mg/dL (0-0.2); Bilirubin Indirect, Calculated 0.1 mg/dL (0.2-0.8)
[2024-05-21] MEDS ORDERED: CLOPIDOGREL 75 MG TABLET ONE (22:28)
[2024-05-21] MEDS ORDERED: METHYLPREDNISOLONE 40 MG INJ ONE (22:28)
[2024-05-21] MEDS ORDERED: IPRATROPIUM BROM 0.5MG/2.5ML ONE (22:28)
[2024-05-21] MEDS ORDERED: ALBUTEROL 2.5 MG/3 ML NEB SOL ONE (22:28)
[2024-05-21] MEDS ORDERED: FUROSEMIDE 20 MG/ 2ML VIAL ONE (22:48)
--- NOTE | 2024-05-22 01:17 | ER ---
Nurse's Notes [facility] Name: Ramirez Chaudhari Age: 59 yrs Sex: Male : 1965 Arrival Date: 05/21/2024 Time: 20:06 Bed 8 Private MD: Diagnosis: Shortness of breath;Chest pain, unspecified Presentation: 05/21 20:34 Chief complaint: Patient states: i have had chest pain shortness of breath and weakness bm8 for 2 days. Coronavirus screen: At this time, the client does not indicate any symptoms associated with coronavirus-19. Ebola Screen: Patient negative for fever greater than or equal to 101.5 degrees Fahrenheit, and additional compatible Ebola Virus Disease symptoms Patient denies exposure to infectious person. Patient denies travel to an Ebola-affected area in the 21 days before illness onset. No symptoms or risks identified at this time. Initial Sepsis Screen: Does the patient meet any 2 criteria? No. Patient's initial sepsis screen is negative. Does the patient have a suspected source of infection? No. Patient's initial sepsis screen is negative. Risk Assessment: Do you want to hurt yourself or someone else? Patient reports no desire to harm self or others. Onset of symptoms was May 19, 2024. 20:34 Method Of Arrival: Wheelchair bm8 20:34 Acuity: NOHEMI 3 bm8 Triage Assessment: 20:36 General: Appears in no apparent distress. comfortable, Behavior is calm, cooperative, bm8 appropriate for age. Pain: Complains of pain in back, chest and abdomen Pain currently is 9 out of 10 on a pain scale. Quality of pain is described as aching, crampy. EENT: No deficits noted. No signs and/or symptoms were reported regarding the EENT system. Neuro: No deficits noted. Level of Consciousness is awake, alert, obeys commands, Oriented to person, place, time, situation. Cardiovascular: Reports chest pain, shortness of breath, Heart tones S1 S2 present Capillary refill < 3 seconds in bilateral fingers Patient's skin is warm and dry. Respiratory: Reports shortness of breath at rest Airway is patent Trachea midline Respiratory effort is even, unlabored, Respiratory pattern is regular, symmetrical, Breath sounds are clear bilaterally. Onset: The symptoms/episode began/occurred 2 days, the patient has mild shortness of breath. GI: Abdomen is round non-distended, Bowel sounds present X 4 quads. Reports lower abdominal pain, upper abdominal pain. : Valera in place. Derm: No signs and/or symptoms reported regarding the dermatologic system. Musculoskeletal: No signs and/or symptoms reported regarding the musculoskeletal system. Historical: - Allergies: 20:36 Ibuprofen; bm8 20:36 metformin; bm8 20:36 NSAIDS; bm8 20:36 Rocephin; bm8 20:36 spironolactone; bm8 20:36 Vancomycin; bm8 - Home Meds: 20:36 albuterol sulfate 2 puff 90mcg PRN Oral [Active]; allopurinol 100 mg Oral tablet 1 tab bm8 once [Active]; Fiasp U-100 Insulin 30U TID subcutaneous solution [Active]; furosemide 80 mg Oral tablet 1.5 tabs daily [Active]; Kerendia 10 mg Oral tablet 1 tab daily [Active]; Levemir Flexpen subcutaneous 50 50 units 2 times per day [Active]; levothyroxine 150 mcg capsule 1 cap daily [Active]; nitrofurantoin macrocrystal 100 mg Oral capsule 1 cap once [Active]; [place] 330mg Oral 1 tab daily [Active]; sotalol 80 mg Oral tablet 1 tab daily [Active]; Lantus U-100 Insulin 100 unit/mL subcutaneous solution 50 units 2 times per day [Active]; - PMHx: 20:36 ADD/ADHD; AFIB; Congestive heart failure; GERD; Gout; High Cholesterol; Hydrocele Left bm8 Testicle; Hypertension; Hypothyroidism; Migraines; Paraplegia; Renal Disease; Spinal Stroke; - PSHx: 20:36 Cardiac Ablation; Spinal SX; bm8 - Immunization history:: Adult Immunizations up to date. - Infectious Disease History:: Denies. - Social history:: Smoking status: Patient denies any tobacco usage or history of. Screenin:35 [facility] ED Fall Risk Assessment (Adult) History of falling in the last 3 months, bm8 including since admission No falls in past 3 months (0 pts) Confusion or Disorientation No (0 pts) Intoxicated or Sedated No (0 pts) Impaired Gait Yes (1 pt) Mobility Assist Device Used Yes (1 pt) Altered Elimination Yes (1 pt) Score/Fall Risk Level 3 or more points = High Risk Oriented to surroundings, Maintained a safe environment, Educated pt \T\ family on fall prevention, incl call for assistance when getting out of bed, Assessed \T\ reinforced patient's understanding of fall precautions, Hourly rounding (assess needs \T\ fall precautionary measures) done, Used ambulatory aids as needed (educated on \T\ assisted with), Used gait belt as appropriate Implemented a Fall Risk Plan of Care. Abuse screen: Denies threats or abuse. Nutritional screening: No deficits noted. Tuberculosis screening: No symptoms or risk factors identified. Assessment: 22:35 Reassessment: Patient appears in no apparent distress at this time. No changes from [facility] previously documented assessment. Patient and/or family updated on plan of care and expected duration. Pain level reassessed. Patient is alert, oriented x 3, equal unlabored respirations, skin warm/dry/pink. 05/22 00:59 Reassessment: Patient appears in no apparent distress at this time. Patient and/or bm8 family updated on plan of care and expected duration. Pain level reassessed. Patient is alert, oriented x 3, equal unlabored respirations, skin warm/dry/pink. pt is resting with eyes closed breathing is even unlabored with symmetrical rise and fall of chest. at bedside Patient denies pain at this time. Patient states feeling better. Patient states symptoms have improved. 01:34 Reassessment:. [facility] Vital Signs: 05/21 20:34 BP 140 / 70; Pulse 70; Resp 18; Temp 98.5; Pulse Ox 98% on R/A; Weight 106.59 kg; 8 Height 5 ft. 8 in. ; Pain 9/10; 22:35 BP 157 / 83; Pulse 66; Resp 20; Temp 98.5; Pulse Ox 100% ; Pain 7/10; [facility] 05/22 00:59 BP 151 / 80; Pulse 67; Resp 17; Temp 98.5; Pulse Ox 97% on R/A; Pain 0/10; [facility] 01:34 BP 113 / 53; Pulse 67; Resp 18; Temp 98.5; Pulse Ox 94% ; Pain 0/10; 8 05/21 20:34 Body Mass Index 35.73 (106.59 kg, 172.72 cm) [facility] 05/21 20:34 Pain Scale: Adult [facility] 22:35 Pain Scale: Adult [facility] 05/22 00:59 Pain Scale: Adult bm8 01:34 Pain Scale: Adult bm8 [place] Coma Score: 05/21 22:35 Eye Response: spontaneous(4). Motor Response: obeys commands(6). Verbal Response: bm8 oriented(5). Total: 15. 05/22 00:59 Eye Response: spontaneous(4). Motor Response: obeys commands(6). Verbal Response: bm8 oriented(5). Total: 15. 01:34 Eye Response: spontaneous(4). Motor Response: obeys commands(6). Verbal Response: bm8 oriented(5). Total: 15. ED Course: 05/21 20:09 Patient arrived in ED. im 20:31 Hank Malone PA is PHCP. cp 20:31 Pacheco De Souza MD is Attending Physician. cp 20:36 Triage completed. bm8 20:36 Arm band placed on right wrist. bm8 20:52 XRAY Chest (1 view) In Process Unspecified. EDMS 21:35 Inserted saline lock: 20 gauge in left antecubital area, using aseptic technique. Blood af3 collected. Flushed with 10 mL NS. 22:17 Ruddy Katz, RN is Primary Nurse. bm8 22:35 Patient has correct armband on for positive identification. Placed in gown. Bed in low bm8 position. Call light in reach. Side rails up X 1. Client placed on continuous cardiac and pulse oximetry monitoring. NIBP monitoring applied. patient monitor on. Pulse ox on. NIBP on. Door closed. Noise minimized. Warm blanket given. Pillow given. Verbal reassurance given. Head of bed elevated. 22:35 No provider procedures requiring assistance completed. Initial lab(s) drawn, by ED bm8 staff, sent to lab. Patient maintains SpO2 saturation greater than 95% on room air. 05/22 00:59 Provided Education on: post er care. bm8 01:34 IV discontinued, intact, bleeding controlled, No redness/swelling at site. Pressure bm8 dressing applied. Administered Medications: 05/21 22:52 Drug: Albuterol Inhalation 2.5 mg Inhalation once Route: Inhalation; dd2 05/22 01:01 Follow up: Response: No adverse reaction bm8 05/21 22:52 Drug: Ipratropium Inhalation Aerosol 0.5 mg Inhalation once Route: Inhalation; dd2 05/22 01:01 Follow up: Response: No adverse reaction bm8 05/21 22:52 Drug: Clopidogrel PO 75 mg PO once Route: PO; dd2 05/22 01:01 Follow up: Response: No adverse reaction bm8 05/21 22:52 Drug: MethylPrednisoLONE IVP 80 mg IVP once Route: IVP; Site: left antecubital; dd2 05/22 01:01 Follow up: Response: No adverse reaction bm8 05/21 22:52 Drug: Furosemide IVP 20 mg IVP once; give over 2 minutes Route: IVP; Site: left dd2 antecubital; 05/22 01:00 Follow up: Response: No adverse reaction bm8 Medication: 05/21 22:35 VIS not applicable for this client. bm8 Outcome: 05/22 01:16 Discharge ordered by . simón 01:34 Discharged to home via wheelchair, bm8 01:34 Condition: stable 01:34 Discharge instructions given to patient, family, Instructed on discharge instructions, follow up and referral plans. no drinking with medication, no driving heavy equipment, medication usage, safety practices, Demonstrated understanding of instructions, follow-up care, medications, Prescriptions given X 1, 01:35 Patient left the ED. bm8 Signatures: Dispatcher [employer] EDMS Hank Malone PA PA cp Mendoza, Itzel im McDonald, Brad, RN RN bm8 Cathy Ivory DIANA, RN RN dd2
--- NOTE | 2024-05-22 01:17 | EDPHYS ---
Physician Documentation [facility] Name: Ramirez Chaudhari Age: 59 yrs Sex: Male : 1965 Arrival Date: 05/21/2024 Time: 20:06 Bed 8 Private MD: ED Physician Pacheco De Souza HPI: 05/21 20:40 This 59 yrs old Male presents to ER via Wheelchair with complaints of cp Shortness Of Breath, Chest Pain, General Weakness. 20:40 The patient has shortness of breath with light activity. Onset: The symptoms/episode cp began/occurred 2 day(s) ago. 20:40 Associated signs and symptoms: Pertinent positives: chest pain, Pertinent negatives: cp productive cough, diaphoresis, fever, hemoptysis, vomiting. Severity of symptoms: in the emergency department the symptoms are unchanged despite home interventions. Historical: - Allergies: 20:36 Ibuprofen; bm8 20:36 metformin; bm8 20:36 NSAIDS; bm8 20:36 Rocephin; bm8 20:36 spironolactone; bm8 20:36 Vancomycin; bm8 - Home Meds: 20:36 albuterol sulfate 2 puff 90mcg PRN Oral [Active]; allopurinol 100 mg Oral tablet 1 tab bm8 once [Active]; Fiasp U-100 Insulin 30U TID subcutaneous solution [Active]; furosemide 80 mg Oral tablet 1.5 tabs daily [Active]; Kerendia 10 mg Oral tablet 1 tab daily [Active]; Levemir Flexpen subcutaneous 50 50 units 2 times per day [Active]; levothyroxine 150 mcg capsule 1 cap daily [Active]; nitrofurantoin macrocrystal 100 mg Oral capsule 1 cap once [Active]; [place] 330mg Oral 1 tab daily [Active]; sotalol 80 mg Oral tablet 1 tab daily [Active]; Lantus U-100 Insulin 100 unit/mL subcutaneous solution 50 units 2 times per day [Active]; - PMHx: 20:36 ADD/ADHD; AFIB; Congestive heart failure; GERD; Gout; High Cholesterol; Hydrocele Left bm8 Testicle; Hypertension; Hypothyroidism; Migraines; Paraplegia; Renal Disease; Spinal Stroke; - PSHx: 20:36 Cardiac Ablation; Spinal SX; bm8 - Immunization history:: Adult Immunizations up to date. - Infectious Disease History:: Denies. - Social history:: Smoking status: Patient denies any tobacco usage or history of. ROS: 20:45 Constitutional: Negative for body aches, chills, fever, poor PO intake, cp 20:45 Eyes: Negative for injury, pain, redness, and discharge, cp 20:45 ENT: Negative for drainage from ear(s), ear pain, sore throat, difficulty swallowing, difficulty handling secretions, 20:45 Cardiovascular: Positive for chest pain, Negative for palpitations, 20:45 Respiratory: Positive for shortness of breath, Negative for cough, wheezing, 20:45 Abdomen/GI: Negative for abdominal pain, vomiting, diarrhea, constipation, 20:45 Neuro: Positive for weakness, Negative for altered mental status, dizziness, headache, numbness, 20:45 All other systems are negative, Exam: 20:40 ECG was reviewed by the Attending Physician. cp 20:50 Constitutional: The patient appears in no acute distress, alert, awake, cp non-diaphoretic, non-toxic, well developed, well nourished, obese, 20:50 Head/Face: Normocephalic, atraumatic. cp 20:50 Eyes: Periorbital structures: appear normal, Conjunctiva: normal, no exudate, no injection, Sclera: no appreciated abnormality, Lids and lashes: appear normal, bilaterally, 20:50 ENT: External ear(s): are unremarkable, Nose: is normal, Mouth: Lips: moist, Oral mucosa: moist, Posterior pharynx: Airway: no evidence of obstruction, patent, erythema, is not appreciated, exudate, is not appreciated, 20:50 Neck: ROM/movement: is normal, is supple, without pain, no range of motions limitations, 20:50 Chest/axilla: Inspection: normal, 20:50 Cardiovascular: Rate: normal, Rhythm: regular, Edema: no gross edema noted, JVD: is not appreciated, 20:50 Respiratory: the patient does not display signs of respiratory distress, Respirations: labored breathing, is not present, intercostal retractions, are absent, shallow respirations, are not present, Breath sounds: decreased breath sounds, that are mild, throughout, stridor, is not appreciated, wheezing: is not appreciated, 20:50 Abdomen/GI: Inspection: obese Palpation: abdomen is soft and non-tender, in all quadrants, 20:50 Neuro: Orientation: to person, place \T\ time. Mentation: is normal, Vital Signs: 20:34 BP 140 / 70; Pulse 70; Resp 18; Temp 98.5; Pulse Ox 98% on R/A; Weight 106.59 kg; bm8 Height 5 ft. 8 in. ; Pain 9/10; 22:35 BP 157 / 83; Pulse 66; Resp 20; Temp 98.5; Pulse Ox 100% ; Pain 7/10; bm8 05/22 00:59 BP 151 / 80; Pulse 67; Resp 17; Temp 98.5; Pulse Ox 97% on R/A; Pain 0/10; bm8 01:34 BP 113 / 53; Pulse 67; Resp 18; Temp 98.5; Pulse Ox 94% ; Pain 0/10; bm8 05/21 20:34 Body Mass Index 35.73 (106.59 kg, 172.72 cm) 8 05/21 20:34 Pain Scale: Adult bm8 22:35 Pain Scale: Adult bm8 05/22 00:59 Pain Scale: Adult bm8 01:34 Pain Scale: Adult bm8 [place] Coma Score: 05/21 22:35 Eye Response: spontaneous(4). Motor Response: obeys commands(6). Verbal Response: bm8 oriented(5). Total: 15. 05/22 00:59 Eye Response: spontaneous(4). Motor Response: obeys commands(6). Verbal Response: bm8 oriented(5). Total: 15. 01:34 Eye Response: spontaneous(4). Motor Response: obeys commands(6). Verbal Response: bm8 oriented(5). Total: 15. MDM: 05/21 20:37 Medical Screening Exam initiated cp 22:00 Differential diagnosis: CHF exacerbation, Chronic Obstructive Pulmonary Disease cp pneumonia, Pneumothorax pulmonary edema, Pulmonary Embolism Sepsis Unstable Angina. 05/22 01:16 Data reviewed: vital signs, nurses notes, lab test result(s), EKG, radiologic studies, cp plain films, and as a result, I will discharge patient. 01:16 Consideration of Admission/Observation Escalation of care including cp admission/observation considered. I considered the following discharge prescriptions or medication management in the emergency department Medications were administered in the Emergency Department. See MAR. Care significantly affected by the following chronic conditions: Hypertension, Congestive Heart Failure, Obesity. Counseling: I had a detailed discussion with the patient and/or guardian regarding the historical points, exam findings, and any diagnostic results supporting the discharge/admit diagnosis, lab results, radiology results, to return to the emergency department if symptoms worsen or persist or if there are any questions or concerns that arise at home. Response to treatment: the patient's symptoms have markedly improved after treatment, and as a result, I will discharge patient. Special discussion: Based on the patient's history, exam, and Dx evaluation, there is no indication for emergent intervention or inpatient Tx. It is understood by the patient/guardian that if the Sx's persist or worsen they need to return immediately for re-evaluation. 05/21 20:38 Order name: Basic Metabolic Panel; Complete Time: 22:16 cp 05/21 22:17 Interpretation: Normal except: GLUC 181; BUN 62; CRE 2.18; GFR 34. cp 05/21 20:38 Order name: CBC with Diff; Complete Time: 22:16 cp 05/21 22:17 Interpretation: Normal except: RBC 3.92; HGB 11.5; HCT 34.6; RDW 15.3. cp 05/21 20:38 Order name: LFT's; Complete Time: 22:16 cp 05/21 22:17 Interpretation: Normal except: ALK 157; IBILI, CALC 0.1; ALB 3.1; GLOB 4.3; A/G 0.7. cp 05/21 20:38 Order name: Magnesium; Complete Time: 22:16 cp 05/21 20:38 Order name: NT PRO-BNP; Complete Time: 22:16 cp 05/21 22:18 Interpretation: Abnormal: NT PRO-BNP 788. cp 05/21 20:38 Order name: PT-INR; Complete Time: 22:16 cp 05/21 20:38 Order name: Troponin HS; Complete Time: 22:16 cp 05/21 22:18 Interpretation: Reviewed. cp 05/21 20:38 Order name: COVID-19 Ag + Flu A+B Ag; Complete Time: 22:16 cp 05/21 23:31 Order name: Troponin High Sensitivity; Complete Time: 01:15 cp 05/22 01:15 Interpretation: Reviewed. cp 05/21 20:38 Order name: XRAY Chest (1 view); Complete Time: 22:16 cp 05/21 20:38 Order name: Cardiac monitoring; Complete Time: 22:21 cp 05/21 20:38 Order name: EKG - Nurse/Tech; Complete Time: 21:35 cp 05/21 20:38 Order name: IV Saline Lock; Complete Time: 21:35 cp 05/21 20:38 Order name: Labs collected and sent; Complete Time: 21:35 cp 05/21 20:38 Order name: O2 Per Protocol; Complete Time: 22:21 cp 05/21 20:38 Order name: O2 Sat Monitoring; Complete Time: 22:21 cp EC/15 20:40 Rate is 69 beats/min. Rhythm is regular. SC interval is normal. QRS interval is cp prolonged at 114 msec. QT interval is normal. Interpreted by me. Reviewed by me. Administered Medications: 22:52 Drug: Albuterol Inhalation 2.5 mg Inhalation once Route: Inhalation; dd2 05/22 01:01 Follow up: Response: No adverse reaction [facility] 05/21 22:52 Drug: Ipratropium Inhalation Aerosol 0.5 mg Inhalation once Route: Inhalation; dd05/22 01:01 Follow up: Response: No adverse reaction 8 05/21 22:52 Drug: Clopidogrel PO 75 mg PO once Route: PO; 05/22 01:01 Follow up: Response: No adverse reaction 8 05/21 22:52 Drug: MethylPrednisoLONE IVP 80 mg IVP once Route: IVP; Site: left antecubital; dd2 05/22 01:01 Follow up: Response: No adverse reaction [facility] 05/21 22:52 Drug: Furosemide IVP 20 mg IVP once; give over 2 minutes Route: IVP; Site: left dd2 antecubital; 05/22 01:00 Follow up: Response: No adverse reaction bm Disposition Summary: 05/22/24 01:16 Discharge Ordered Notes: Location: Home cp Problem: new cp Symptoms: have improved cp Condition: Stable cp Diagnosis - Shortness of breath cp - Chest pain, unspecified cp Followup: cp - With: Private Physician - When: 2 - 3 days - Reason: Recheck today's complaints Discharge Instructions: - Discharge Summary Sheet cp - Nonspecific Chest Pain, Adult cp - Shortness of Breath, Adult cp Forms: - Medication Reconciliation Form cp - Antibiotic Education cp - Prescription Opioid Use cp - Patient Portal Instructions cp - Leadership Thank You Letter cp Prescriptions: - albuterol sulfate 90 mcg/actuation Inhalation HFA Aerosol Inhaler - inhale 1 puff INHALATION route every 4-6 hours as needed for shortness of cp breath or wheezing; until breathing returns to target peak flow/parameters; 1 unit; Refills: 0, Product Selection Permitted Addendum: 05/23/2024 03:36 I was immediately available for consultation during this patient's visit. I did not e c2 personally see the patient or discuss the patient with the JAMIE. . Signatures: Dispatcher [employer] EDMS Hank Malone PA PA cp Pacheco De Souza MD MD ec2 Ruddy Katz RN RN bm8 GEOVANY SOTOMAYOR RN RN dd2 Corrections: (The following items were deleted from the chart) 05/21 20:38 20:38 BASIC METABOLIC PANEL+C.LAB.BRZ ordered. EDMS EDMS 20:38 20:38 CBC+H.LAB.BRZ ordered. EDMS EDMS 20:38 20:38 HEPATIC FUNCTION+C.LAB.BRZ ordered. EDMS EDMS 20:38 20:38 MAGNESIUM+C.LAB.BRZ ordered. EDMS EDMS 20:38 20:38 PROBNP+C.LAB.BRZ ordered. EDMS EDMS 20:38 20:38 PROTIME (+INR)+COAG.LAB.BRZ ordered. EDMS EDMS 20:38 20:38 Troponin High Sensitivity+C.LAB.BRZ ordered. EDMS EDMS 20:38 20:38 COVID-19 Ag + Flu A+B Ag+I.LAB.BRZ ordered. EDMS EDMS 20:38 20:38 Chest Single View+RAD.RAD.BRZ ordered. EDMS EDMS 05/23 00:23 05/20 20:40 This 59 yrs old Male presents to ER via Wheelchair with complaints cp of Shortness Of Breath, Chest Pain, General Weakness. cp
[2024-05-22 02:04] VITALS: TEMP 98.5
[2024-05-22 02:18] VITALS: BP 113/53; O2SAT 94
--- NOTE | 2024-05-25 12:44 | EKG ---
Test Date: 2024-05-21 Test Time: 20:30:05 Special Diet Cook: LINH MEASUREMENT RESULTS: Intervals: Rate: 69 AL: 140 QRSD: 114 QT: 444 QTc: 475 [place]: P: 70 AL: 140 QRS: 91 T: 18 INTERPRETIVE STATEMENTS: Sinus rhythm with premature atrial complexes Right bundle branch block Abnormal ECG Compared to ECG 03/11/2024 11:37:29 Atrial premature complex(es) now present Sinus arrhythmia no longer present Electronically Signed On 05-25-24 12:31:16 CDT by Dmitri Antunez
== END 2024-05-22 01:35 | disposition home or self-care (01) ==
LOC: ER 20:06
DX: R06.02 Shortness of breath (principal); R07.9 Chest pain, unspecified; I10 Essential (primary) hypertension; I50.9 Heart failure, unspecified; I48.91 Unspecified atrial fibrillation; Z11.52 Encounter for screening for COVID-19
CPT/HCPCS: 93005; 85025; 80048; 36415; 83735; 85610; 80076; 84484 ×2; 83880; 71045; 96375; 96374; 99285; 87428; J1940; J7613; J7644; J2919

== ENCOUNTER 2024-06-06 06:44 | Emergency (ER) | payer MEDICARE, OTHER ==
[2024-06-06 07:38] LABS: Absolute Eosinophils 0.2 K/uL (0-0.5); Absolute Lymphocytes (CBC) 1.4 K/uL (0.7-4.9); Absolute Monocytes 0.3 K/uL (0.1-1.3); Absolute Neutrophil 4.7 K/uL (1.8-8.0); Basophils % 0.6 % (0-1.3); Eosinophils % 3.5 % (0-4.4); Hemoglobin 11.9 g/dL (13.6-17.9); Lymphocytes % 21.6 % (15.3-44.8); MCHC 33.1 g/dL (32.0-36.0); MCV 87.7 fL (80-100); MPV 9.4 fL (7.6-11.3); Monocytes % 3.9 % (3.3-12.3); Neutrophils % 70.4 % (41.7-73.7); Platelets 141 thou/uL (152-406); RBC Red Blood Cell Count 4.11 M/uL (4.33-5.43)
[2024-06-06 07:42] LABS: Protime INR 1.06
--- NOTE | 2024-06-06 07:56 | RAD REPORT ---
Procedure: Chest Single View HISTORY: Chest pain COMPARISON: May 22, 2024 FINDINGS: The lungs appear clear of acute infiltrate. No significant pleural effusion noted. The heart is borderline enlarged. . IMPRESSION: No acute abnormality is displayed.
[2024-06-06 08:11] LABS: ALT/SGPT 17 U/L (16-61); Albumin 3.2 g/dL (3.4-5.0); Albumin/Globulin Ratio 0.8 (1.1-1.8); Alkaline Phosphatase 114 U/L (45-117); Anion Gap 11.8 mEq/L (5.0-15.0); BUN Blood Urea Nitrogen 70 mg/dL (7-18); Bicarbonate 28 mEq/L (21-32); Bilirubin Direct 0.2 mg/dL (0-0.2); Bilirubin Indirect, Calculated 0.4 mg/dL (0.2-0.8); Bilirubin Total 0.6 mg/dL (0.2-1.0); Glomerular Filtration Rate 35 ml/min (=/>90); Glucose Level 328 mg/dL (74-106); Magnesium 2.2 mg/dL (1.6-2.4); NT PRO-BNP 1629 pg/mL (<125); Potassium 3.8 mEq/L (3.5-5.1); Protein, Total 7.2 g/dL (6.4-8.2); Sodium Level 137 mEq/L (136-145); Troponin High Sensitivity 18.5 pg/mL (<58.9)
[2024-06-06 08:12] LABS: AST/SGOT < 10 U/L (15-37)
--- NOTE | 2024-06-06 11:17 | EKG ---
Test Date: 2024-06-06 Test Time: 07:22:49 Fleet Maintenance Foreman: LELA MEASUREMENT RESULTS: Intervals: Rate: 61 MD: 138 QRSD: 122 QT: 472 QTc: 475 [place]: P: 18 MD: 138 QRS: 73 T: 19 INTERPRETIVE STATEMENTS: Sinus rhythm with fusion complexes and premature atrial complexes Right bundle branch block Abnormal ECG Compared to ECG 05/21/2024 20:30:05 Fusion complex(es) now present Electronically Signed On 06-06-24 11:15:59 CDT by Dmitri Antunez
--- NOTE | 2024-06-06 12:10 | EDPHYS ---
Physician Documentation [facility] Name: Ramirez Chaudhari Age: 59 yrs Sex: Male : 1965 Arrival Date: 06/06/2024 Time: 06:44 Bed 13 Private MD: ED Physician Ida Cunha HPI: 06/06 07:15 This 59 yrs old Male presents to ER via Wheelchair with complaints of Chest sp3 Pain. 07:15 59-year-old male with history of CHF, A-fib, hyperlipidemia presents to the ED with sp3 recurrent chronic type chest pain for the last 48 hours off and on. Patient denies any associated symptoms including fever, headache, neck pain, shortness breath, abdominal pain, vomit, diarrhea, syncope, near syncope, bleeding, or any other signs or symptoms on ROS at this time.. Historical: - Allergies: 07:10 Ibuprofen; ph 07:10 metformin; ph 07:10 NSAIDS; ph 07:10 Rocephin; ph 07:10 spironolactone; ph 07:10 Vancomycin; ph - Home Meds: 07:43 albuterol sulfate 2 puff 90mcg PRN Oral [Active]; allopurinol 100 mg Oral tablet 1 tab ph once [Active]; Fiasp U-100 Insulin 30U TID subcutaneous solution [Active]; furosemide 80 mg Oral tablet 1.5 tabs daily [Active]; Kerendia 10 mg Oral tablet 1 tab daily [Active]; Lantus U-100 Insulin 100 unit/mL Sub-Q solution 50 units 2 times per day [Active]; Levemir Flexpen subcutaneous 50 50 units 2 times per day [Active]; levothyroxine 150 mcg capsule 1 cap daily [Active]; nitrofurantoin macrocrystal 100 mg Oral capsule 1 cap once [Active]; [place] 330mg Oral 1 tab daily [Active]; sotalol 80 mg Oral tablet 1 tab daily [Active]; - PMHx: 07:10 ADD/ADHD; AFIB; Congestive heart failure; GERD; Gout; High Cholesterol; Hydrocele Left ph Testicle; Hypertension; Hypothyroidism; Migraines; Paraplegia; Renal Disease; Spinal Stroke; - PSHx: 07:10 Cardiac Ablation; Spinal SX; ph - Immunization history:: Adult Immunizations unknown. - Infectious Disease History:: Denies. - Social history:: Smoking status: Patient denies any tobacco usage or history of. ROS: 07:16 Constitutional: Negative for fever, chills, and weight loss, Eyes: Negative for injury, sp3 pain, redness, and discharge, ENT: Negative for injury, pain, and discharge, Neck: Negative for injury, pain, and swelling, Respiratory: Negative for shortness of breath, cough, wheezing, and pleuritic chest pain, Abdomen/GI: Negative for abdominal pain, nausea, vomiting, diarrhea, and constipation, Back: Negative for injury and pain, MS/Extremity: Negative for injury and deformity, Skin: Negative for injury, rash, and discoloration, Neuro: Negative for headache, weakness, numbness, tingling, and seizure, Psych: Negative for depression, anxiety, suicide ideation, homicidal ideation, and hallucinations, Allergy/Immunology: Negative for hives, rash, and allergies, Endocrine: Negative for neck swelling, polydipsia, polyuria, polyphagia, and marked weight changes, 07:16 All other systems are negative, Exam: 07:16 Constitutional: This is a well developed, well nourished patient who is awake, alert, sp3 and in no acute distress. Head/Face: Normocephalic, atraumatic. Eyes: Pupils equal round and reactive to light, extra-ocular motions intact. Lids and lashes normal. Conjunctiva and sclera are non-icteric and not injected. Cornea within normal limits. Periorbital areas with no swelling, redness, or edema. Neck: Trachea midline, no thyromegaly or masses palpated, and no cervical lymphadenopathy. Supple, full range of motion without nuchal rigidity, or vertebral point tenderness. No Meningismus. Chest/axilla: Normal chest wall appearance and motion. Nontender with no deformity. No lesions are appreciated. Respiratory: Lungs have equal breath sounds bilaterally, clear to auscultation and percussion. No rales, rhonchi or wheezes noted. No increased work of breathing, no retractions or nasal flaring. Abdomen/GI: Soft, non-tender, with normal bowel sounds. No distension or tympany. No guarding or rebound. No evidence of tenderness throughout. Back: No spinal tenderness. No costovertebral tenderness. Full range of motion. Skin: Warm, dry with normal turgor. Normal color with no rashes, no lesions, and no evidence of cellulitis. MS/ Extremity: Pulses equal, no cyanosis. Neurovascular intact. Full, normal range of motion. Neuro: Awake and alert, GCS 15, oriented to person, place, time, and situation. Cranial nerves II-XII grossly intact. Motor strength 5/5 in all extremities. Sensory grossly intact. Cerebellar exam normal. Normal gait. Psych: Awake, alert, with orientation to person, place and time. Behavior, mood, and affect are within normal limits. 07:30 ECG was reviewed by the Attending Physician. EKG demonstrates normal sinus rhythm at 61 sp3 bpm with normal intervals, right bundle branch block and nonspecific diffuse ST/T changes without evidence of acute ischemia. Vital Signs: 07:42 BP 150 / 77; Pulse 67; Resp 18; Temp 97.5; Pulse Ox 98% on R/A; Weight 108.86 kg; ph Height 5 ft. 10 in. ; 08:19 BP 119 / 73; Pulse 59; Resp 18; Pulse Ox 97% on R/A; ph 09:37 BP 155 / 80; Pulse 58; Resp 18; Pulse Ox 94% on R/A; ph 10:42 BP 124 / 73; Pulse 52; Resp 18; Pulse Ox 98% on R/A; ph 11:50 BP 166 / 74; Pulse 58; Resp 16; Pulse Ox 97% on R/A; ph 12:00 BP 140 / 72; Pulse 56; Resp 16; Temp 98.1; Pulse Ox 99% ; ph 07:42 Body Mass Index 34.44 (108.86 kg, 177.8 cm) ph MDM: 07:01 Medical Screening Exam initiated sp3 07:17 Data reviewed: vital signs, nurses notes, old medical records, lab test result(s), EKG, sp3 radiologic studies. ED course: 59-year-old male with PMH above now with recurrent chest pain. Official diagnosis includes chronic pain, ACS, MSK pain, other pulmonary inflammation, URI, among others. Workup will include EKG, chest x-ray and general labs including troponin and BNP. Disposition pending workup and patient course. Pain is mild at the moment and no acute intervention indicated. EKG still pending.. 08:39 ED course: Initial workup negative with negative troponin. Creatinine at baseline. sp3 Patient asleep in no acute distress with no ongoing chest pain. Patient is had multiple workups in the past. If second troponin at 4 hours is negative, we will safely discharge patient home to cardiology and PCP follow-up.. 12:08 ED course: Second troponin negative. Patient still chest pain-free. We will safely sp3 discharge him home at this time.. 06/06 07:03 Order name: Basic Metabolic Panel; Complete Time: 08:12 sp3 06/06 07:03 Order name: CBC with Diff; Complete Time: 08:06 sp3 06/06 07:03 Order name: LFT's; Complete Time: 08:12 sp3 06/06 07:03 Order name: Magnesium; Complete Time: 08:12 sp3 06/06 07:03 Order name: NT PRO-BNP; Complete Time: 08:12 sp3 06/06 07:03 Order name: PT-INR; Complete Time: 08:06 sp3 06/06 07:03 Order name: Troponin HS; Complete Time: 08:12 sp3 06/06 08:15 Order name: Troponin High Sensitivity: Draw 4 hours after first; Complete Time: 12:02 sp3 06/06 07:03 Order name: XRAY Chest (1 view); Complete Time: 08:06 sp3 06/06 07:03 Order name: Cardiac monitoring; Complete Time: 07:39 sp3 06/06 07:03 Order name: EKG - Nurse/Tech; Complete Time: 07:39 sp3 06/06 07:03 Order name: IV Saline Lock; Complete Time: 07:39 sp3 06/06 07:03 Order name: Labs collected and sent; Complete Time: 07:39 sp3 06/06 07:03 Order name: O2 Per Protocol; Complete Time: 07:39 sp3 06/06 07:03 Order name: O2 Sat Monitoring; Complete Time: 07:39 sp3 Administered Medications: No medications were administered Disposition Summary: 06/06/24 12:09 Discharge Ordered Notes: Location: Home sp3 Condition: Stable sp3 Diagnosis - Chest pain sp3 Followup: sp3 - With: Private Physician - When: Upon discharge from the Emergency Department - Reason: Continuance of care Discharge Instructions: - Discharge Summary Sheet sp3 - Nonspecific Chest Pain, Adult sp3 Forms: - Family Work Release ph - Medication Reconciliation Form sp3 - Antibiotic Education sp3 - Prescription Opioid Use sp3 - Patient Portal Instructions sp3 - Leadership Thank You Letter sp3 Signatures: Dispatcher [employer] EDSparkle Lam, RN RN ph Ida Cunha MD MD sp3 Corrections: (The following items were deleted from the chart) 07:04 07:04 BASIC METABOLIC PANEL+C.LAB.BRZ ordered. EDMS EDMS 07:04 07:04 CBC+H.LAB.BRZ ordered. EDMS EDMS 07:04 07:04 HEPATIC FUNCTION+C.LAB.BRZ ordered. EDMS EDMS 07:04 07:04 MAGNESIUM+C.LAB.BRZ ordered. EDMS EDMS 07:04 07:04 PROBNP+C.LAB.BRZ ordered. EDMS EDMS 07:04 07:04 PROTIME (+INR)+COAG.LAB.BRZ ordered. EDMS EDMS 07:04 07:04 Troponin High Sensitivity+C.LAB.BRZ ordered. EDMS EDMS 07:04 07:04 Chest Single View+RAD.RAD.BRZ ordered. EDMS EDMS 07:44 07:43 Home Meds: furosemide 80 mg Oral tablet 1.5 tabs daily; ph ph
--- NOTE | 2024-06-06 12:10 | ER ---
Nurse's Notes [facility] Name: Ramirez Chaudhari Age: 59 yrs Sex: Male : 1965 Arrival Date: 06/06/2024 Time: 06:44 Bed 13 Private MD: Diagnosis: Chest pain Presentation: 06/06 07:09 Chief complaint: Patient states: Mid-sternal chest pain that started at 0300 this morning, also reports diarrhea after taking stool softeners for constipation. Coronavirus screen: Vaccine status: Patient reports being unvaccinated. Ebola Screen: No symptoms or risks identified at this time. Initial Sepsis Screen: Does the patient meet any 2 criteria? No. Patient's initial sepsis screen is negative. Does the patient have a suspected source of infection? No. Patient's initial sepsis screen is negative. Risk Assessment: Do you want to hurt yourself or someone else? Patient reports no desire to harm self or others. Onset of symptoms was June 06, 2024. 07:09 Method Of Arrival: Wheelchair ph 07:09 Acuity: NOHEMI 2 ph Triage Assessment: 07:10 General: Appears in no apparent distress. comfortable, Behavior is calm, cooperative. ph Pain: Complains of pain in mid-sternal area. Neuro: Level of Consciousness is awake, alert, obeys commands, Oriented to person, place, time, situation. Cardiovascular: Reports chest pain, Rhythm is regular Chest pain is located in substernal area. Respiratory: Airway is patent Respiratory effort is even, unlabored, Respiratory pattern is regular, symmetrical. Derm: Skin is pink, warm \T\ dry. Musculoskeletal: Circulation, motion, and sensation intact. Range of motion: intact in all extremities. Historical: - Allergies: 07:10 Ibuprofen; ph 07:10 metformin; ph 07:10 NSAIDS; ph 07:10 Rocephin; ph 07:10 spironolactone; ph 07:10 Vancomycin; ph - Home Meds: 07:43 albuterol sulfate 2 puff 90mcg PRN Oral [Active]; allopurinol 100 mg Oral tablet 1 tab ph once [Active]; Fiasp U-100 Insulin 30U TID subcutaneous solution [Active]; furosemide 80 mg Oral tablet 1.5 tabs daily [Active]; Kerendia 10 mg Oral tablet 1 tab daily [Active]; Lantus U-100 Insulin 100 unit/mL Sub-Q solution 50 units 2 times per day [Active]; Levemir Flexpen subcutaneous 50 50 units 2 times per day [Active]; levothyroxine 150 mcg capsule 1 cap daily [Active]; nitrofurantoin macrocrystal 100 mg Oral capsule 1 cap once [Active]; [place] 330mg Oral 1 tab daily [Active]; sotalol 80 mg Oral tablet 1 tab daily [Active]; - PMHx: 07:10 ADD/ADHD; AFIB; Congestive heart failure; GERD; Gout; High Cholesterol; Hydrocele Left ph Testicle; Hypertension; Hypothyroidism; Migraines; Paraplegia; Renal Disease; Spinal Stroke; - PSHx: 07:10 Cardiac Ablation; Spinal SX; ph - Immunization history:: Adult Immunizations unknown. - Infectious Disease History:: Denies. - Social history:: Smoking status: Patient denies any tobacco usage or history of. Screenin:41 [facility] ED Fall Risk Assessment (Adult) History of falling in the last 3 months, ph including since admission No falls in past 3 months (0 pts) Confusion or Disorientation No (0 pts) Intoxicated or Sedated No (0 pts) Impaired Gait Yes (1 pt) Mobility Assist Device Used Yes (1 pt) Altered Elimination No (0 pt) Score/Fall Risk Level 0 - 2 = Low Risk Oriented to surroundings, Maintained a safe environment, Hourly rounding (assess needs \T\ fall precautionary measures) done. Abuse screen: Denies threats or abuse. Denies injuries from another. Nutritional screening: No deficits noted. Tuberculosis screening: No symptoms or risk factors identified. Assessment: 07:41 General: SEE TRIAGE ASSESSMENT. ph 10:41 Reassessment: Patient appears in no apparent distress at this time. Patient and/or ph family updated on plan of care and expected duration. Pain level reassessed. Patient is alert, oriented x 3, equal unlabored respirations, skin warm/dry/pink. 11:49 Reassessment: Patient appears in no apparent distress at this time. Patient and/or ph family updated on plan of care and expected duration. Pain level reassessed. Patient is alert, oriented x 3, equal unlabored respirations, skin warm/dry/pink. 12:17 Pain: Pain began 03:00. ph 12:17 Pain:. ph Vital Signs: 07:42 BP 150 / 77; Pulse 67; Resp 18; Temp 97.5; Pulse Ox 98% on R/A; Weight 108.86 kg; ph Height 5 ft. 10 in. ; 08:19 BP 119 / 73; Pulse 59; Resp 18; Pulse Ox 97% on R/A; ph 09:37 BP 155 / 80; Pulse 58; Resp 18; Pulse Ox 94% on R/A; ph 10:42 BP 124 / 73; Pulse 52; Resp 18; Pulse Ox 98% on R/A; ph 11:50 BP 166 / 74; Pulse 58; Resp 16; Pulse Ox 97% on R/A; ph 12:00 BP 140 / 72; Pulse 56; Resp 16; Temp 98.1; Pulse Ox 99% ; ph 07:42 Body Mass Index 34.44 (108.86 kg, 177.8 cm) ph ED Course: 06:48 Patient arrived in ED. gm2 07:01 Ida Cunha MD is Attending Physician. sp3 07:09 Sparkle Kovacs, RN is Primary Nurse. ph 07:10 Triage completed. ph 07:11 Arm band placed on Patient placed in an exam room, on a stretcher, on secured entrance monitor, ph on pulse oximetry. 07:25 Initial lab(s) drawn, by me, sent to lab. EKG done, by ED staff, reviewed by Iad Cunha MD. Inserted saline lock: 22 gauge in right antecubital area, using aseptic technique. Blood collected. Flushed with 10 mL NS. Patient maintains SpO2 saturation greater than 95% on room air. 07:37 XRAY Chest (1 view) In Process Unspecified. EDMS 07:40 Basic Metabolic Panel Sent. ph 07:40 CBC with Diff Sent. ph 07:40 LFT's Sent. ph 07:40 Magnesium Sent. ph 07:40 NT PRO-BNP Sent. ph 07:40 PT-INR Sent. ph 07:40 Troponin HS Sent. ph 07:43 Patient has correct armband on for positive identification. Bed in low position. Call ph light in reach. Side rails up X 1. campus monitor on. Pulse ox on. NIBP on. Door closed. Noise minimized. Warm blanket given. Pillow given. 10:42 No provider procedures requiring assistance completed. ph 12:16 Provided Education on: POC. Verbalized understanding.. ph 12:26 IV discontinued, intact, bleeding controlled, No redness/swelling at site. Pressure ph dressing applied. Administered Medications: No medications were administered Medication: 07:42 VIS not applicable for this client. ph Outcome: 12:09 Discharge ordered by sp3 12:28 Discharged to home via wheelchair, with significant other, ph 12:28 Condition: stable 12:28 Discharge instructions given to patient, significant other, Instructed on discharge instructions, follow up and referral plans. Demonstrated understanding of instructions, follow-up care, 12:29 Patient left the ED. ph Signatures: Dispatcher [employer] EDSparkle Lam RN RN ph Ida Cunha MD MD sp3 Mary Andino 2 Corrections: (The following items were deleted from the chart) 07:44 07:43 Home Meds: furosemide 80 mg Oral tablet 1.5 tabs daily; ph ph
[2024-06-06 13:06] VITALS: BP 140/72; TEMP 98.1; O2SAT 99
== END 2024-06-06 12:29 | disposition home or self-care (01) ==
LOC: ER 06:44
DX: R07.9 Chest pain, unspecified (principal); I10 Essential (primary) hypertension; I48.91 Unspecified atrial fibrillation; I50.9 Heart failure, unspecified; E78.00 Pure hypercholesterolemia, unspecified
CPT/HCPCS: 36415; 71045; 80048; 80076; 83735; 83880; 84484; 85025; 85610; 93005; 99284

== ENCOUNTER 2024-07-16 09:01 | Emergency (ER) | payer OTHER ==
[2024-07-16 09:20] LABS: Absolute Eosinophils 0.3 K/uL (0-0.5); Absolute Lymphocytes (CBC) 1.3 K/uL (0.7-4.9); Absolute Monocytes 0.5 K/uL (0.1-1.3); Absolute Neutrophil 4.3 K/uL (1.8-8.0); Basophils % 0.6 % (0-1.3); Eosinophils % 4.2 % (0-4.4); Hematocrit 36.3 % (39.6-49.0); Hemoglobin 12.3 g/dL (13.6-17.9); Lymphocytes % 19.9 % (15.3-44.8); MCH 28.9 pg (27.0-35.0); MCHC 33.9 g/dL (32.0-36.0); MCV 85.2 fL (80-100); MPV 9.1 fL (7.6-11.3); Monocytes % 7.8 % (3.3-12.3); Neutrophils % 67.5 % (41.7-73.7); Nucleated Red Blood Cells % 0.1 % (0-0); Platelets 167 thou/uL (152-406); RBC Red Blood Cell Count 4.26 M/uL (4.33-5.43); Red Cell Distribution Width 16.4 % (12.1-15.2)
[2024-07-16 09:42] LABS: Anion Gap 9.7 mEq/L (5.0-15.0); Magnesium 2.3 mg/dL (1.6-2.4); Potassium 4.7 mEq/L (3.5-5.1); Troponin High Sensitivity 9.7 pg/mL (<58.9)
--- NOTE | 2024-07-16 10:08 | RAD REPORT ---
Procedure: Chest Single View HISTORY: Chest pain COMPARISON: May 2024 FINDINGS: The lungs appear clear of acute infiltrate. No significant pleural effusion noted. The heart is normal size. IMPRESSION: No acute abnormality is displayed.
[2024-07-16] MEDS ORDERED: FUROSEMIDE 40 MG/4 ML VIAL ONE (10:29)
[2024-07-16 11:10] LABS: Sqamous Epithelial <5 /HPF (None Seen); Urine Bacteria <20 /HPF (<20); Urine Bilirubin NEGATIVE (Negative); Urine Blood 2+ (Negative); Urine Clarity Extremely Turbid (Clear); Urine Color Light-Yellow (Yellow); Urine Crystals Unidentified Few /HPF (None Seen); Urine Culture Reflex Order REFLEXED; Urine Glucose TRACE (Negative); Urine Ketones NEGATIVE (Negative); Urine Microscopic Reflex YN ORDER UMIC; Urine Mucus Slight /HPF (None Seen); Urine Nitrite NEGATIVE (Negative); Urine Protein TRACE (Negative); Urine RBC 21-50 /HPF (None Seen); Urine Urobilinogen Normal (Normal); Urine WBC >50 /HPF (<5); Urine WBC Clump Few /HPF (None Seen)
--- NOTE | 2024-07-16 12:31 | EDPHYS ---
Physician Documentation [facility] Name: Ramirez Chaudhari Age: 59 yrs Sex: Male : 1965 Arrival Date: 07/16/2024 Time: 09: Bed 19 Private MD: ED Physician Brodie Zheng HPI: 07/16 09:14 This 59 yrs old Male presents to ER via Wheelchair with complaints of Chest kb Pain. 09:14 Pt is a 59 year old male who presents for chest pain and shortness of breath that kb started at 0700 this morning. states he has been out of his "fluid pill" for a couple of weeks and is supposed to see a new PCP on Thursday. . Historical: - Allergies: 09:09 metformin; mb9 09:09 Ibuprofen; mb9 09:09 NSAIDS; mb9 09:09 Rocephin; mb9 09:09 spironolactone; mb9 09:09 Vancomycin; mb9 - Home Meds: 09:18 albuterol sulfate 2 puff 90mcg PRN Oral [Active]; allopurinol 100 mg Oral tablet 1 tab mb9 once [Active]; Fiasp U-100 Insulin 30U TID subcutaneous solution [Active]; sotalol 80 mg Oral tablet 1 tab daily [Active]; Levemir Flexpen subcutaneous 50 50 units 2 times per day [Active]; Kerendia 10 mg Oral tablet 1 tab daily [Active]; furosemide 80 mg Oral tablet 1.5 tabs daily [Active]; Lantus U-100 Insulin 100 unit/mL Sub-Q solution 50 units 2 times per day [Active]; levothyroxine 150 mcg capsule 1 cap daily [Active]; nitrofurantoin macrocrystal 100 mg Oral capsule 1 cap once [Active]; [place] 330mg Oral 1 tab daily [Active]; - PMHx: 09:09 ADD/ADHD; GERD; Congestive heart failure; High Cholesterol; Hypothyroidism; AFIB; Gout; mb9 Renal Disease; Paraplegia; Hydrocele Left Testicle; Hypertension; Migraines; Spinal Stroke; - PSHx: 09:09 Cardiac Ablation; Spinal SX; mb9 - Immunization history:: Adult Immunizations up to date. - Infectious Disease History:: Denies. - Social history:: Smoking status: Patient denies any tobacco usage or history of. ROS: 09:14 Constitutional: As per HPI Exam: 09:14 Constitutional: This is a well developed, well nourished patient who is awake, alert, kb and in no acute distress. Head/Face: Normocephalic, atraumatic. ENT: Moist Mucous membranes Cardiovascular: Regular rate Respiratory: Respirations even and unlabored. No increased work of breathing. Talking in full sentences Skin: Warm, dry with normal turgor. Normal color. MS/ Extremity: Pulses equal, no cyanosis. Neurovascular intact. Full, normal range of motion. Neuro: Awake and alert, GCS 15, oriented to person, place, time, and situation. 09:16 ECG was reviewed by the Attending Physician. Vital Signs: 09:10 BP 163 / 77; Pulse 63; Resp 18; Pulse Ox 100% on R/A; Weight 99.79 kg; Height 5 ft. 8 mb9 in. ; Pain 10/10; 10:21 BP 170 / 99; Pulse 60; Resp 18; Temp 98.5; Pulse Ox 99% on R/A; mb9 11:13 BP 155 / 85; Pulse 58; Resp 18; Pulse Ox 98% on R/A; mb9 12:41 BP 153 / 90; Pulse 61; Resp 18; Pulse Ox 100% on R/A; mb9 09:10 Body Mass Index 33.45 (99.79 kg, 172.72 cm) mb9 09:10 Pain Scale: Adult mb9 MDM: 09:08 Medical Screening Exam initiated kb 09:14 Data reviewed: vital signs, nurses notes. Historians other than the Patient: Spouse/Significant Other: spouse. 12:37 Differential diagnosis: acute mi, arrhythmia, pulmonary edema, CHF. Consideration of kb Admission/Observation Escalation of care including admission/observation considered. admission considered but oxygen 98% on room air, pt in no distress, serial troponin wn. Counseling: I had a detailed discussion with the patient and/or guardian regarding the historical points, exam findings, and any diagnostic results supporting the discharge/admit diagnosis, lab results, radiology results, the need for outpatient follow up, a family practitioner, to return to the emergency department if symptoms worsen or persist or if there are any questions or concerns that arise at home. 07/16 09:10 Order name: Basic Metabolic Panel; Complete Time: 09:55 07/16 09:10 Order name: CBC with Diff; Complete Time: 09:23 kb 07/16 09:10 Order name: Magnesium; Complete Time: 09:55 kb 07/16 09:10 Order name: NT PRO-BNP; Complete Time: 09:55 kb 07/16 09:10 Order name: Troponin HS; Complete Time: 09:55 kb 07/16 10:35 Order name: UA Rfx John Cult if indicated; Complete Time: 11:19 kb 07/16 11:15 Order name: Urine Culture EDMS 07/16 11:55 Order name: Troponin High Sensitivity; Complete Time: 12:30 kb 07/16 09:10 Order name: XRAY Chest (1 view); Complete Time: 10:12 kb 07/16 09:10 Order name: Cardiac monitoring; Complete Time: 09:15 kb 07/16 09:10 Order name: EKG - Nurse/Tech; Complete Time: 09:15 kb 07/16 09:10 Order name: IV Saline Lock; Complete Time: 09:15 kb 07/16 09:10 Order name: Labs collected and sent; Complete Time: 09:15 kb 07/16 09:10 Order name: O2 Per Protocol; Complete Time: 09:15 kb 07/16 09:10 Order name: O2 Sat Monitoring; Complete Time: 09:15 kb 07/16 10:35 Order name: Myers: change out myers cath please; Complete Time: 10:51 kb EC:16 Rate is 62 beats/min. Rhythm is regular. QRS [place] is Normal. DC interval is normal at kb 142 msec. QRS interval is normal at 118 msec. QT interval is normal at 454 msec. Administered Medications: 10:40 Drug: Furosemide IVP 40 mg IVP once; give over 2 minutes Route: IVP; Site: right mb9 antecubital; 11:13 Follow up: Response: No adverse reaction mb9 Disposition: 18:08 Co-signature as Attending Physician, Brodie Zheng MD I reviewed the patient's care rn provided by the Advanced Practice Provider and agree with the diagnosis and treatment plan. Disposition Summary: 07/16/24 12:31 Discharge Ordered Notes: Location: Home Condition: Stable kb Diagnosis - Chest pain, unspecified kb Followup: kb - With: Emergency Department - When: As needed - Reason: Worsening of condition Followup: kb - With: Private Physician - When: 2 - 3 days - Reason: Recheck today's complaints, Continuance of care, Re-evaluation by your physician Discharge Instructions: - Discharge Summary Sheet kb - Nonspecific Chest Pain, Adult kb - Acute Urinary Retention, Male, [id number] kb Forms: - Family Work Release kb - Medication Reconciliation Form kb - Antibiotic Education kb - Prescription Opioid Use kb - Patient Portal Instructions kb - Leadership Thank You Letter kb Prescriptions: - Lasix 40 mg Oral tablet - take 1 tablet ORAL route 2 times per day Take 2 tabs (80mg) in the morning and kb 1 tab (40mg) at night; 6 tablet; Refills: 0, Product Selection Permitted - Cipro 500 mg Oral Tablet - take 1 tablet ORAL route every 12 hours for 7 days; 14 tablet; Refills: 0, kb Product Selection Permitted Signatures: Dispatcher [employer] EDJacquie Marquez, SUPERINTENDENT TRANSMISSION-C SUPERINTENDENT TRANSMISSION-Ckb Brodie Zheng MD MD rn Wilkerson, Tere Queen RN RN nelda Corrections: (The following items were deleted from the chart) 09:11 09:11 BASIC METABOLIC PANEL+C.LAB.BRZ ordered. EDMS EDMS 09:11 09:11 CBC+H.LAB.BRZ ordered. EDMS EDMS 09:11 09:11 MAGNESIUM+C.LAB.BRZ ordered. EDMS EDMS 09:11 09:11 PROBNP+C.LAB.BRZ ordered. EDMS EDMS 09:11 09:11 Troponin High Sensitivity+C.LAB.BRZ ordered. EDMS EDMS 09:11 09:11 Chest Single View+RAD.RAD.BRZ ordered. EDMS EDMS
--- NOTE | 2024-07-16 12:31 | ER ---
Nurse's Notes [facility] Name: Ramirez Chaudhari Age: 59 yrs Sex: Male : 1965 Arrival Date: 07/16/2024 Time: 09: Bed 19 Private MD: Diagnosis: Chest pain, unspecified Presentation: 07/16 09:10 Chief complaint: Patient states: "I had chest pain and SOB that woke me up from sleep mb9 this morning. It's a sharp and stabbing pain. 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 Coronavirus screen: At this time, the client does not indicate any symptoms associated with coronavirus-19. Ebola Screen: No symptoms or risks identified at this time. Initial Sepsis Screen: Does the patient meet any 2 criteria? No. Patient's initial sepsis screen is negative. Does the patient have a suspected source of infection? No. Patient's initial sepsis screen is negative. Risk Assessment: Do you want to hurt yourself or someone else? Patient reports no desire to harm self or others. Onset of symptoms was July 16, 2024. 09:10 Method Of Arrival: Wheelchair mb9 09:10 Acuity: NOHEMI 2 mb9 Triage Assessment: 09:12 General: Appears uncomfortable, Behavior is calm, cooperative. Pain: Complains of pain mb9 in chest Pain radiates to left side Pain currently is 10 out of 10 on a pain scale. Quality of pain is described as sharp, stabbing, Pain began suddenly, Is continuous. EENT: No signs and/or symptoms were reported regarding the EENT system. Neuro: Level of Consciousness is awake, alert, obeys commands, Oriented to person, place, time, situation, Appropriate for age. Cardiovascular: Patient's skin is warm and dry. Cardiovascular: Heart tones S1 S2 present. Respiratory: Airway is patent Respiratory effort is even, unlabored, Respiratory pattern is regular, symmetrical, Breath sounds are clear bilaterally. GI: Abdomen is round non-distended, Bowel sounds present X 4 quads. Abd is soft and non tender X 4 quads. Reports diarrhea. : Myers in place. Derm: Skin is pink, warm \\T\\ dry. Musculoskeletal: Range of motion: limited in bilateral legs. Historical: - Allergies: 09:09 metformin; mb9 09:09 Ibuprofen; mb9 09:09 NSAIDS; mb9 09:09 Rocephin; mb9 09:09 spironolactone; mb9 09:09 Vancomycin; mb9 - Home Meds: 09:18 albuterol sulfate 2 puff 90mcg PRN Oral [Active]; allopurinol 100 mg Oral tablet 1 tab mb9 once [Active]; Fiasp U-100 Insulin 30U TID subcutaneous solution [Active]; sotalol 80 mg Oral tablet 1 tab daily [Active]; Levemir Flexpen subcutaneous 50 50 units 2 times per day [Active]; Kerendia 10 mg Oral tablet 1 tab daily [Active]; furosemide 80 mg Oral tablet 1.5 tabs daily [Active]; Lantus U-100 Insulin 100 unit/mL Sub-Q solution 50 units 2 times per day [Active]; levothyroxine 150 mcg capsule 1 cap daily [Active]; nitrofurantoin macrocrystal 100 mg Oral capsule 1 cap once [Active]; [employer] 330mg Oral 1 tab daily [Active]; - PMHx: 09:09 ADD/ADHD; GERD; Congestive heart failure; High Cholesterol; Hypothyroidism; AFIB; Gout; mb9 Renal Disease; Paraplegia; Hydrocele Left Testicle; Hypertension; Migraines; Spinal Stroke; - PSHx: 09:09 Cardiac Ablation; Spinal SX; mb9 - Immunization history:: Adult Immunizations up to date. - Infectious Disease History:: Denies. - Social history:: Smoking status: Patient denies any tobacco usage or history of. Screenin:11 [facility] ED Fall Risk Assessment (Adult) History of falling in the last 3 months, mb9 including since admission Yes- fall prone (multiple falls) (3 pts) Confusion or Disorientation No (0 pts) Intoxicated or Sedated No (0 pts) Impaired Gait Yes (1 pt) Mobility Assist Device Used Yes (1 pt) Altered Elimination Yes (1 pt) Score/Fall Risk Level 3 or more points = High Risk Oriented to surroundings, Maintained a safe environment, Educated pt \\T\\ family on fall prevention, incl call for assistance when getting out of bed, Assessed \\T\\ reinforced patient's understanding of fall precautions. Abuse screen: Denies threats or abuse. Nutritional screening: No deficits noted. Tuberculosis screening: No symptoms or risk factors identified. Assessment: 09:14 Reassessment: see triage assessment. mb9 10:21 Reassessment: No changes from previously documented assessment. Patient and/or family mb9 updated on plan of care and expected duration. Pain level reassessed. Patient is alert, oriented x 3, equal unlabored respirations, skin warm/dry/pink. 12:41 Reassessment: Patient and/or family updated on plan of care and expected duration. Pain mb9 level reassessed. Patient is alert, oriented x 3, equal unlabored respirations, skin warm/dry/pink. Patient states feeling better. Patient states symptoms have improved. Vital Signs: 09:10 BP 163 / 77; Pulse 63; Resp 18; Pulse Ox 100% on R/A; Weight 99.79 kg; Height 5 ft. 8 mb9 in. ; Pain 10/10; 10:21 BP 170 / 99; Pulse 60; Resp 18; Temp 98.5; Pulse Ox 99% on R/A; mb9 11:13 BP 155 / 85; Pulse 58; Resp 18; Pulse Ox 98% on R/A; mb9 12:41 BP 153 / 90; Pulse 61; Resp 18; Pulse Ox 100% on R/A; mb9 09:10 Body Mass Index 33.45 (99.79 kg, 172.72 cm) mb9 09:10 Pain Scale: Adult mb9 ED Course: 09:05 Patient arrived in ED. eb 09:08 [facility]C [facility]. kb 09:08 Brodie Zheng MD is Attending Physician. kb 09:09 Tere Perez, NORBERTO is Primary Nurse. mb9 09:10 Arm band placed on. mb9 09:11 Triage completed. mb9 09:14 Placed in gown. Bed in low position. Call light in reach. Side rails up X 1. Provided mb9 Education on: press call light if needing anything. Client placed on continuous cardiac and pulse oximetry monitoring. NIBP monitoring applied. senior quality manager on. Door closed. Noise minimized. Warm blanket given. Pillow given. 09:14 Initial lab(s) drawn, by ED staff, sent to lab. Inserted saline lock: 20 gauge in right mb9 antecubital area, using aseptic technique. Blood collected. Flushed with 10 mL NS. 09:14 EKG done, by ED staff, reviewed by Jacquie JOHNSON. mb9 09:15 Inserted saline lock: 20 gauge in right antecubital area, using aseptic technique. ss Blood collected. Flushed with 10 mL NS. 09:59 XRAY Chest (1 view) In Process Unspecified. EDMS 10:40 Myers cath removed intact, balloon deflated. mb9 10:45 Myers cath inserted, using sterile technique, 16 Fr., by nv, balloon inflated, to mb9 gravity drainage, urine specimen collected. 10:52 UA Rfx John Cult if indicated Sent. mb9 11:15 Urine Culture Sent. mb9 12:02 Troponin High Sensitivity Sent. mb9 12:41 No provider procedures requiring assistance completed. IV discontinued, intact, mb9 bleeding controlled, No redness/swelling at site. Pressure dressing applied. Administered Medications: 10:40 Drug: Furosemide IVP 40 mg IVP once; give over 2 minutes Route: IVP; Site: right mb9 antecubital; 11:13 Follow up: Response: No adverse reaction mb9 Medication: 09:14 VIS not applicable for this client. mb9 Outcome: 12:31 Discharge ordered by . kb 12:41 Discharged to home via wheelchair, with family, mb9 12:41 Condition: stable 12:41 Discharge instructions given to patient, family, Instructed on discharge instructions, follow up and referral plans. Demonstrated understanding of instructions, follow-up care, medications, Prescriptions given X 2, 12:42 Patient left the ED. mb9 Addendum: 07/19/2024 16:22 Addendum: Culture Results: Positive urine culture. Bacteria is resistant to, has s s intermediate sensitivity, or is not tested against prescribed antibiotics. Report given to JAMIE for further evaluation and then to personal care home administrator for follow up with patient. Phone call Attempt #1 JEFF Dhillon recommends to follow up with PCP as patient has an indwelling myers. Attempted to call number on file. Not a working number. Signatures: Dispatcher [employer] EDLA Jacquie Jin FNP-C FNP-Ckb Blanchard, Shelby, RN RN Sofia Mack Mary Beth RN RN mb9 Corrections: (The following items were deleted from the chart) 07/16 09:18 09:10 Chief complaint: Patient states: "I had chest pain and SOB that woke me up from mb9 sleep this morning." 9 09:20 09:10 Chief complaint: Patient states: "I had chest pain and SOB that woke me up from 9 sleep this morning. 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
[2024-07-16 13:11] VITALS: TEMP 98.5
[2024-07-16 13:13] VITALS: BP 153/90; O2SAT 100
--- NOTE | 2024-07-18 12:04 | EKG ---
Test Date: 2024-07-16 Test Time: 09:14:10 License Clerk: ARA MEASUREMENT RESULTS: Intervals: Rate: 62 RI: 142 QRSD: 118 QT: 448 QTc: 454 [place]: P: 15 RI: 142 QRS: 78 T: 16 INTERPRETIVE STATEMENTS: Sinus rhythm with premature atrial complexes Incomplete right bundle branch block Borderline ECG Compared to ECG 06/06/2024 07:22:49 Incomplete right bundle-branch block now present Fusion complex(es) no longer present Right bundle-branch block no longer present Electronically Signed On 07-18-24 12:02:31 CDT by Dmitri Antunez
== END 2024-07-16 12:42 | disposition home or self-care (01) ==
LOC: ER 09:01
DX: R07.9 Chest pain, unspecified (principal); I10 Essential (primary) hypertension; I50.9 Heart failure, unspecified
CPT/HCPCS: 93005; 87088; 85025; 81001; 87086; 80048; 36415; 83735; 87077; 87186; 84484 ×2; 83880; 71045; 51702; 96374; 99285; J1938